=== PATIENT | female | born 1935 | race Caucasian/White ===

== ENCOUNTER 2020-02-07 14:56 | Emergency (ER) | payer MEDICARE, SELFPAY ==
--- NOTE | ~2020-02-07 | CT_ITS ---
EXAMINATION: CT abdomen pelvis w con INDICATION: Left lower quadrant pain and nausea TECHNIQUE: Computed tomographic images of the abdomen and pelvis were obtained after the administrati on of 100 cc of Omnipaque 350 intravenous contrast. The dose-length product (DLP) was 337.14 mGy-cm. Automated exposure control and iterative reconstruction technique were employed. COMPARISON: 04/10/2011 FINDINGS: Minimal dependent atelectasis is present in the lung bases. The heart size is normal. There is chronic pneumobilia of the liver, likely related to prior sphincterotomy. The gallbladder is surg ically absent. There is a small sliding hiatal hernia. The pancreas, spleen, and right adrenal gland are normal. A stable 9 mm mass of the left adrenal gland is consistent with an adenoma. Cysts of the kidneys measure up to 8.5 cm on the left. There is calcified atherosclerosis of the aorta and many of the other arteries. No pathologically enlarged abdominal or pelvic lymph nodes are identified. There is no free intraperitoneal gas or evidence of bowel obstruction. There are changes of right total hi p arthroplasty. Calcified uterine fibroids are noted. A pessary is noted in the vagina. There is rom re thoracic and lumbar spondylosis. There are small fat-containing umbilical and epigastric hernias. IMPRESSION: 1. No CT correlate for the patient's symptoms. Reviewed, dictated and finalized at location A. INUOUS IMPROVEMENT LEAD
[2020-02-07 15:07] VITALS: BP 150/65; PULSE 86; RESP 18; TEMP 35.9; O2SAT 94
--- NOTE | 2020-02-07 15:12 | ED.ABDPAIN ---
HPI - Abdominal Pain General Chief Complaint: Abdominal Pain Stated Complaint: llq abd pain/nausea Time Seen by Provider: 02/07/20 15:12 History of Present Illness HPI narrative: LLQ pain for the past few days. Worsening in severity. Associated with nausea and bloating. Mild constipation, Last BM this morning. No fever, vomiting, CP, SOB. Related Data Home Medications Medication Instructions Recorded Confirmed amlodipine 10 mg tablet 10 mg PO DAILY 11/01/19 01/29/20 cholecalciferol (vitamin D3) 50 50 mcg PO DAILY 11/01/19 01/29/20 mcg (2,000 unit) capsule clorazepate dipotassium 3.75 mg 3.75 mg PO TID PRN 11/01/19 01/29/20 tablet diclofenac sodium 1 % topical gel 2 gm TOPICAL QID 11/01/19 01/29/20 estradiol 1 gm VAGINAL 2XW 11/01/19 01/29/20 fluticasone propionate 50 1 spray NASAL DAILY 11/01/19 01/29/20 mcg/actuation nasal spray,suspension gelscq-wcgmtcvn-ocwmlrg 1 cap PO BID 11/01/19 01/29/20 25,000-79,000-105,000 unit capsule,delayed rel loratadine 10 mg tablet 10 mg PO DAILY 11/01/19 01/29/20 multivitamin,rs-flge-dtvwatxd 1 tablet PO DAILY 11/01/19 01/29/20 propylene glycol 0.6 % eye drops 1 drop EACH EYE DAILY PRN 11/01/19 01/29/20 ropinirole 2 mg tablet 2 mg PO BID 11/01/19 01/29/20 Allergies Allergy/AdvReac Type Severity Reaction Status Date / Time amoxicillin Allergy Mild unknown Verified 01/29/20 14:12 codeine Allergy Unknown unknown Verified 01/29/20 14:12 pantoprazole Allergy Unknown unknown Verified 01/29/20 14:12 ESOMEPRAZOLE MAG Allergy Unknown unknown Uncoded 01/29/20 14:12 PANTOPRAZOLE SODIUM Allergy Unknown unknown Uncoded 01/29/20 14:12 RABEPRAZOLE SODIUM Allergy Unknown UNKNOWN Uncoded 03/28/19 09:27 Review of Systems Review of Systems: All systems reviewed & are unremarkable except as noted in HPI and below Constitutional: Constitutional: Denies fever(s) and Denies weakness Cardiovascular: Cardiovascular: Denies chest pain Respiratory: Respiratory: Denies dyspnea Gastrointestinal: Gastrointestinal: Reports abdominal pain, Reports bloating, Reports constipation, Denies diarrhea, Reports nausea and Denies vomiting Genitourinary: Genitourinary: Denies hematuria, Reports nocturia and Denies dysuria Musculoskeletal: Musculoskeletal: Denies back pain Neurologic: Denies dizziness and Denies weakness [facility] Past Medical History Medical History (Updated 02/07/20 @ 17:47 by Sandeep Gaytan MD) Acid reflux Anemia Arthritis Bruises easily Hypertension Urinary incontinence Surgical History Surgical History History of cholecystectomy History of colonoscopy History of ERCP History of esophagogastroduodenoscopy (EGD) History of hemorrhoidectomy History of hip replacement History of repair of hiatal hernia Hx of cataract surgery Family History Family History Sibling Family history of diabetes mellitus in first degree relative Family history of lymphoma Family history of malignant neoplasm of kidney Mother , 1 month after childbirth in 1936 No problems noted. Father Malignant brain tumor Sibling Seizures COPD (chronic obstructive pulmonary disease) Lymphoma Sibling Diabetes mellitus Hypertension Heart disease Bone cancer Brain tumor Social History Social History Smoking status: Never smoker Alcohol intake: never Exam Const: General: healthy appearing, no acute distress and alert Orientation/consciousness: patient oriented x3 HENMT: Head: normal to inspection Neck: Neck: normal visual inspection and no lymphadenopathy Chest: Chest palpation & inspection: no tenderness Resp: Effort & Inspection: normal respiratory effort Auscultation: clear to auscultation bilaterally, no rales, no rhonchi and no wheezes Cardio: Ju
[2020-02-07 15:34] LABS: Basophils Absolute Auto 0.1 K/mm3 (0.0-0.1); Eosinophils Absolute Auto 0.2 K/mm3 (0-0.3); Eosinophils Percent Auto 2.9 % (0-4.4); Hematocrit 38.5 % (37.0-47.0); Hemoglobin 13.1 g/dL (12.0-15.0); Immature Granulocyte Absolute 0.02 K/mm3 (0.00-0.031); Immature Granulocyte Percent A 0.3 % (0-0.5); Lymphocytes Absolute Auto 1.85 K/mm3 (0.9-3.2); Lymphocytes Percent Auto 26.7 % (18.3-44.2); Mean Corpuscular Hemoglobin 32.7 pg (26-34); Monocytes Absolute Auto 0.8 K/mm3 (0.1-0.6); Monocytes Percent Auto 11.4 % (2.6-8.5); Neutrophils Percent Auto 57.7 % (45.5-73.1); Platelet Count Result 227 k/mm3 (150-375); Red Blood Count 4.01 M/mm3 (4.2-5.4); Red Cell Distribution Width 13.2 % (11.5-14.5); White Blood Count 6.9 K/mm3 (4.5-10.0)
[2020-02-07 15:45] LABS: Alanine Aminotransferase 26 U/L (4-35); Albumin Level 4.5 g/dL (3.5-5.1); Alkaline Phosphatase 120 U/L (38-126); Anion Gap 7 mmol/L (8-16); Aspartate Amino Transferase 41 U/L (14-36); Bilirubin,Total 0.4 mg/dL (0.2-1.3); Blood Urea Nitrogen 15 mg/dL (7-17); Calcium 10.3 mg/dL (8.4-10.2); Carbon Dioxide 28 mmol/L (22-30); Chloride 104 mmol/L (98-107); Estimated Glomerular Filt Rate > 60; Glucose 102 mg/dL (65-105); Lipase 330 U/L (23-300); Potassium 4.2 mmol/L (3.4-5.0); Sodium 139 mmol/L (137-145)
[2020-02-07 17:14] VITALS: BP 137/43; PULSE 73; RESP 18; O2SAT 98
[2020-02-07 17:37] LABS: Add Urine Microscopic? YES; Appearance Urine Clear (Clear); Bacteria Urine Trace /hpf; Bilirubin Urine Negative (Negative); Blood Urine Negative (Negative); Color Urine Yellow (Yellow); Glucose Urine UA Negative (Negative); Ketones Urine Negative (Negative); Leukocyte Esterase Ur Negative LEU/UL (Negative); Mucus Urine Rare /lpf; Nitrate Urine Negative (Negative); Protein Urine Negative (Negative); RBC Urine 0-2 /hpf (0-2); Specific Grav Ur 1.011 (1.001-1.035); Squamous Epithelial Cell Urine Occasional /hpf (Few); Urobilinogen Urine Negative mg/dL (<2.0); WBC Urine 0-3 /hpf
== END 2020-02-07 18:04 | disposition home or self-care (01) ==
PROVIDERS: Emergency Medicine; Emergency Provider Emergency Medicine; PCP Physician Assistant
DX: R10.32 Left lower quadrant pain (principal); M19.90 Unspecified osteoarthritis, unspecified site; I10 Essential (primary) hypertension; D64.9 Anemia, unspecified
CPT/HCPCS: 36415; 74177; 80053; 81001; 83690; 85025; 99284; Q9967

== ENCOUNTER 2020-04-09 11:09 | Outpatient (CLI) | payer MEDICARE, SELFPAY ==
--- NOTE | ~2020-04-09 | XR_ITS ---
XR hip BI wo pelvis 04/09/2020 12:01 Indication: Joint pain Procedure: 2 views of each hip Comparison: 01/29/2010 Findings: There is a right total hip arthroplasty. Prosthesis well seated. No periprosthetic fracture or loosening evident. Moderate osteoarthritis of the left hip. There are coarse calcifications in th e pelvis, likely uterine fibroids. No acute fracture or traumatic malalignment. Impression: 1: Moderate osteoarthritis of the left hip. Reviewed, dictated and finalized at location B. OW AND DOOR INSTALLER Impression: 1: Moderate osteoarthritis of the left hip.
--- NOTE | ~2020-04-09 | XR_ITS ---
EXAMINATION: XR knee RT 2V DATE: 04/09/2020 12:01 INDICATION: Multiple joint pain. TECHNIQUE: 2 views of right knee were obtained. COMPARISON: None. FINDINGS: Bone alignment is normal. No fracture. There is moderate osteoarthritis of medial compartme nt and mild osteoarthritis of lateral and patellofemoral compartments. No knee joint effusion. IMPRESSION: 1. Moderate right knee osteoarthritis. Reviewed, dictated and finalized at location A. RVISOR FIBERGLASS BOAT ASSEMBLY
--- NOTE | ~2020-04-09 | XR_ITS ---
EXAMINATION: XR ankle LT 2V DATE: 04/09/2020 12:01 INDICATION: Multiple joint pain. TECHNIQUE: 2 views of left ankle were obtained. COMPARISON: None. FINDINGS: Bone alignment is normal. No fracture. Joint spaces are normal. There is an enthesophyte at plantar aspect of calcaneal tuberosity. IMPRESSION: 1. No arthritis. Reviewed, dictated and finalized at location A. ER TOOL AND DIE IMPRESSION: 1. No arthritis.
--- NOTE | ~2020-04-09 | XR_ITS ---
EXAMINATION: XR knee LT 2V DATE: 04/09/2020 12:01 INDICATION: Multiple joint pain. TECHNIQUE: 2 views of left knee were obtained. COMPARISON: None. FINDINGS: Bone alignment is normal. No fracture. There is moderate osteoarthritis of medial compartme nt and mild osteoarthritis of lateral and patellofemoral compartments. No knee joint effusion. IMPRESSION: 1. Moderate left knee osteoarthritis. Reviewed, dictated and finalized at location A. ORY CARD CLERK
--- NOTE | ~2020-04-09 | XR_ITS ---
EXAMINATION: XR hand LT 2V DATE: 04/09/2020 12:01 INDICATION: Multiple joint pain. TECHNIQUE: 2 views of left hand were obtained. COMPARISON: None. FINDINGS: Bone alignment is normal. No fracture. There is mild osteoarthritis of first carpometacarpa l joint, fifth proximal interphalangeal joint, and third proximal and distal interphalangeal joints. IMPRESSION: 1. Mild polyarticular osteoarthritis. Reviewed, dictated and finalized at location A. ERCIAL LOAN ADMINISTRATOR
--- NOTE | ~2020-04-09 | XR_ITS ---
EXAMINATION: XR elbow RT 2V DATE: 04/09/2020 12:01 INDICATION: Multiple joint pain. TECHNIQUE: 2 views of right elbow were obtained. COMPARISON: None. FINDINGS: Bone alignment is normal. No fracture. Joint spaces are well maintained. IMPRESSION: 1. Normal right elbow. Reviewed, dictated and finalized at location A. LLIGENCE AGENT IMPRESSION: 1. Normal right elbow.
--- NOTE | ~2020-04-09 | XR_ITS ---
EXAMINATION: XR wrist LT 2V DATE: 04/09/2020 12:01 INDICATION: Multiple joint pain. TECHNIQUE: 2 views of left wrist were obtained. COMPARISON: None. FINDINGS: Bone alignment is normal. No fracture. There is mild osteoarthritis of first carpometacarpa l joint. IMPRESSION: 1. Mild osteoarthritis of first carpometacarpal joint. Reviewed, dictated and finalized at location A. ODYNAMICS PROFESSOR
--- NOTE | ~2020-04-09 | XR_ITS ---
EXAMINATION: XR elbow LT 2V DATE: 04/09/2020 12:01 INDICATION: Multiple joint pain. TECHNIQUE: 2 views of left elbow were obtained. COMPARISON: Left elbow radiographs 05/22/2013 FINDINGS: Bone alignment is normal. No fracture. Joint spaces are well maintained. There is no elbow joint effusion. IMPRESSION: 1. Normal left elbow. Reviewed, dictated and finalized at location A. TER SLOTTER HELPER IMPRESSION: 1. Normal left elbow.
--- NOTE | ~2020-04-09 | XR_ITS ---
EXAMINATION: XR ankle RT 2V DATE: 04/09/2020 12:01 INDICATION: Multiple joint pain. TECHNIQUE: 2 views of right ankle were obtained. COMPARISON: None. FINDINGS: Bone alignment is normal. No acute fracture. There is mild ankle joint osteoarthritis. Ther e is an enthesophyte at plantar aspect of calcaneal tuberosity. IMPRESSION: 1. Mild ankle joint osteoarthritis. Reviewed, dictated and finalized at location A. TERY WARDEN
--- NOTE | ~2020-04-09 | XR_ITS ---
EXAMINATION: XR wrist RT 2V DATE: 04/09/2020 12:01 INDICATION: Multiple joint pain. TECHNIQUE: 2 views of right wrist were obtained. COMPARISON: None. FINDINGS: Bone alignment is normal. No fracture. There is mild osteoarthritis of first carpometacarpa l joint. IMPRESSION: 1. Mild osteoarthritis of first carpometacarpal joint. Reviewed, dictated and finalized at location A. L OPPORTUNITY OFFICER
--- NOTE | ~2020-04-09 | XR_ITS ---
EXAMINATION: XR hand RT 2V DATE: 04/09/2020 12:01 INDICATION: Multiple joint pain. TECHNIQUE: 2 views of right hand were obtained. COMPARISON: None. FINDINGS: There is radial subluxation of second distal phalanx with respect to the middle phalanx. Th ere is ulnar subluxation of third distal phalanx with respect to the middle phalanx. No fracture. The re is mild osteoarthritis of first carpometacarpal joint and fourth and fifth distal interphalangeal joints and severe osteoarthritis of second and third distal interphalangeal joints. IMPRESSION: 1. Polyarticular osteoarthritis. Reviewed, dictated and finalized at location A. OMER BUSINESS MANAGER
== END 2020-04-09 11:10 | disposition home or self-care (01) ==
LOC: ANHIMG 11:12
PROVIDERS: PCP Physician Assistant; Visit Provider Internal Medicine Rheumatology
DX: M17.0 Bilateral primary osteoarthritis of knee (principal); M19.042 Primary osteoarthritis, left hand; M19.041 Primary osteoarthritis, right hand; M18.0 Bilateral primary osteoarthritis of first carpometacarpal joints; S63.202A Unspecified subluxation of right middle finger, initial encounter; M16.12 Unilateral primary osteoarthritis, left hip; M19.071 Primary osteoarthritis, right ankle and foot
CPT/HCPCS: 73070; 73100; 73120; 73521; 73560; 73600

== ENCOUNTER → 2020-06-11 12:59 | Outpatient (CLI) | payer MEDICARE, SELFPAY ==
--- NOTE | ~2020-06-11 | MR_ITS ---
EXAMINATION: MR cervical spine wo con DATE: 06/11/2020 14:58 INDICATION: Neck pain. TECHNIQUE: Magnetic resonance imaging (MRI) of the cervical spine was performed without intravenous c ontrast. Sequences included sagittal T2-weighted FSE, sagittal STIR FSE, sagittal T1-weighted FSE, ax ial MERGE, and axial T2-weighted FSE. COMPARISON: None FINDINGS: There is 4 mm anterolisthesis of C4 on C5 and 3 mm retrolisthesis of C5 on C6. Vertebral rashaad dy heights are normal. There is mildly decreased disc height at C4-C5, severely decreased disc height at C5-C6, and mildly decreased disc height at C6-C7. The spinal cord signal intensity is normal. The following disc levels are specifically discussed: C2-C3: The disc does not extend beyond the endplate margin. There is no uncovertebral joint osteoarth ritis. There is mild right and severe left facet joint osteoarthritis. There is mild left neural fora delicia stenosis. There is no central canal stenosis. C3-C4: There is a central extrusion. There is mild left uncovertebral joint osteoarthritis. There is moderate right and severe left facet joint osteoarthritis. There is mild left neural foraminal stenos is. There is no central canal stenosis. C4-C5: The disc is bulging. There is moderate bilateral uncovertebral joint osteoarthritis. There is severe left facet joint osteoarthritis. There is ankylosis of right facet joint with severe hypertrop hy. There is moderate right and mild left neural foraminal stenosis. There is mild central canal sten osis. C5-C6: The disc is bulging. There is severe bilateral uncovertebral joint osteoarthritis. There is se arianna right and moderate left facet joint osteoarthritis. There is severe right and moderate left neur al foraminal stenosis. There is mild central canal stenosis. C6-C7: The disc is bulging. There is moderate right and severe left uncovertebral joint osteoarthriti s. There is severe bilateral facet joint osteoarthritis. There is mild bilateral neural foraminal jerzy nosis. There is mild central canal stenosis. C7-T1: The disc does not extend beyond the endplate margin. There is no uncovertebral joint osteoarth ritis. There is moderate right and severe left facet joint osteoarthritis. There is mild bilateral ne ural foraminal stenosis. There is no central canal stenosis. IMPRESSION: 1. Severe cervical spondylosis. Reviewed, dictated and finalized at location A.
--- NOTE | ~2020-06-11 | MR_ITS ---
EXAMINATION: MR lumbar spine wo con DATE: 06/11/2020 14:58 INDICATION: Low back pain. TECHNIQUE: Magnetic resonance imaging (MRI) of the lumbar spine was performed without intravenous con trast. Sequences included sagittal T2-weighted FSE, sagittal T2-weighted FS FSE, sagittal T1-weighted FSE, and axial T2-weighted FSE. COMPARISON: Lumbar spine MRI 10/29/2008 FINDINGS: There is 18 degrees levoscoliosis of thoracolumbar spine. There is 3 mm anterolisthesis of L3 on L4. Body heights are normal. There is severely decreased disc height from T12-L1 through L2-L3, moderately decreased disc height at L3-L4, and severely decreased disc height at L4-L5 and L5-S1 wit h endplate remodeling. There is ligamentum flavum hypertrophy at the disc levels from T12-L1 through L4-L5. The distal spinal cord signal intensity is normal. The conus medullaris is at L1. There is a 1 0.4 cm cyst in left kidney. The following disc levels are specifically discussed: T12-L1: The disc is bulging and has an annular fissure. There is moderate bilateral facet joint osteo arthritis. There is mild bilateral neural foraminal stenosis. There is mild central canal stenosis. L1-L2: The disc is bulging. There is moderate bilateral facet joint osteoarthritis. There is moderate right and mild left neural foraminal stenosis. There is mild central canal stenosis. L2-L3: The disc is bulging. There is moderate bilateral facet joint osteoarthritis. There is moderate bilateral neural foraminal stenosis. There is mild central canal stenosis. L3-L4: The disc is bulging and has an annular fissure. There is severe bilateral facet joint osteoart hritis. There is mild right and moderate left neural foraminal stenosis. There is mild central canal stenosis. L4-L5: The disc is bulging and has an annular fissure. There is severe bilateral facet joint osteoart hritis. There is moderate bilateral neural foraminal stenosis. There is moderate central canal stenos is. L5-S1: The disc is bulging and has an annular fissure. There is moderate bilateral facet joint osteoa rthritis. There is mild bilateral neural foraminal stenosis. There is mild central canal stenosis. IMPRESSION: 1. Severe lumbar spondylosis, worsened from 10/29/2008. 2. Thoracolumbar levoscoliosis. Reviewed, dictated and finalized at location A.
--- NOTE | ~2020-06-11 | MR_ITS ---
EXAMINATION: MR knee LT wo con DATE: 06/11/2020 14:59 INDICATION: Left knee pain. TECHNIQUE: Magnetic resonance imaging (MRI) of the left knee was performed without intravenous contra st. Sequences included axial PD-weighted FS FSE, coronal PD-weighted FSE and PD-weighted FS FSE, sagi ttal PD-weighted FSE, and sagittal T2-weighted FS FSE. COMPARISON: Left knee radiographs 04/09/2020 FINDINGS: Medial compartment: There is a complex tear of the body and posterior horn of medial meniscus. There is full-thickness ca rtilage loss of tibial condyle involving the anterior, central, and medial articular surface with cor tical remodeling and moderate subchondral edema-like signal intensity. There is full-thickness cartil age loss of femoral condyle involving the central, posterior, anterior, and medial articular surface with moderate subchondral edema-like marrow signal intensity. Osteophytes are noted. Lateral compartment: Lateral meniscus is normal. There is shallow partial-thickness cartilage loss of tibial condyle. Ther e is shallow partial-thickness cartilage loss of femoral condyle involving the posterior and medial a rticular surface. Osteophytes are noted. Patellofemoral compartment: The tibial cartilage is normal. There is deep partial thickness cartilage loss of central trochlea wi th mild subchondral edema-like marrow signal intensity. Ligaments and tendons: The anterior and posterior cruciate ligaments are normal. Medial collateral ligament is normal. There are changes of prior sprain of fibular collateral ligament characterized by increased signal intensi ty proximally. There is mild patellar tendinopathy. Fluid: There is a small knee joint effusion. There is trace fluid in a Phan's cyst. Osseous/other: There is mild prepatellar and superficial infrapatellar bursitis. IMPRESSION: 1. Severe chondrosis of medial compartment, moderate chondrosis of patellofemoral compartment, and mi ld chondrosis of lateral compartment. 2. Complex tear of medial meniscus. 3. Small knee joint effusion. Reviewed, dictated and finalized at location A. IMPRESSION: 1. Severe chondrosis of medial compartment, moderate chondrosis of patellofemor al compartment, and mild chondrosis of lateral compartment. 2. Complex tear of medial meniscus. 3. Small knee joint effusion.
== END ==
PROVIDERS: PCP Physician Assistant; Visit Provider Internal Medicine Rheumatology
DX: M47.815 Spondylosis without myelopathy or radiculopathy, thoracolumbar region (principal); M48.05 Spinal stenosis, thoracolumbar region; M47.817 Spondylosis without myelopathy or radiculopathy, lumbosacral region; M48.07 Spinal stenosis, lumbosacral region; M25.462 Effusion, left knee; S83.232A Complex tear of medial meniscus, current injury, left knee, initial encounter; M70.42 Prepatellar bursitis, left knee
CPT/HCPCS: 72141; 72148; 73721

== ENCOUNTER 2021-05-04 13:26 | Emergency (ER) | payer MEDICARE, SELFPAY ==
[2021-05-04 13:37] VITALS: BP 133/60; PULSE 74; RESP 18; TEMP 35.9; O2SAT 99
--- NOTE | 2021-05-04 14:09 | ED.GENADULT ---
HPI - General Adult General Chief complaint: Medical Clearance Stated complaint: High Blood Pressure Time Seen by Provider: 05/04/21 14:10 Source: patient, RN notes reviewed and old records reviewed Mode of arrival: ambulatory Limitations: no limitations History of Present Illness HPI narrative: 85-year-old female presents to the [facility] with complaints of elevated blood pressure. Patient states for the last few weeks she has just not felt well. Feels like nobody is listening to her. Thought her blood pressure was elevated this morning. Currently 133/60. Denies any chest pain or shortness of breath. No nausea vomiting or diarrhea. Denies being febrile or having chills. Denies any urinary symptoms. Related Data Home Medications Medication Instructions Recorded Confirmed cholecalciferol (vitamin D3) 50 50 mcg PO DAILY 11/01/19 05/04/21 mcg (2,000 unit) capsule fluticasone propionate 50 1 spray NASAL DAILY 11/01/19 05/04/21 mcg/actuation nasal spray,suspension [id number] 1 cap PO BID 11/01/19 05/04/21 25,000-79,000-105,000 unit capsule,delayed rel amlodipine 10 mg PO DAILY 05/04/21 05/04/21 montelukast 10 mg PO DAILY 05/04/21 05/04/21 Allergies Allergy/AdvReac Type Severity Reaction Status Date / Time amoxicillin Allergy Mild unknown Verified 05/04/21 13:55 codeine Allergy Unknown unknown Verified 05/04/21 13:55 pantoprazole Allergy Unknown unknown Verified 05/04/21 13:55 ESOMEPRAZOLE MAG Allergy Unknown unknown Uncoded 05/04/21 13:55 PANTOPRAZOLE SODIUM Allergy Unknown unknown Uncoded 05/04/21 13:55 RABEPRAZOLE SODIUM Allergy Unknown UNKNOWN Uncoded 05/04/21 13:55 Review of Systems Review of Systems: All systems reviewed & are unremarkable except as noted in HPI and below Constitutional: Constitutional: Reports no additional constitutional complaints, Denies chills and Denies fever(s) Eyes: Eyes: Reports no additional eye complaints, Denies change in vision and Denies photophobia ENT: Reports as per HPI, Reports dizziness (Intermittent for a few months) and Denies sore throat Cardiovascular: Cardiovascular: Reports no additional cardiovascular complaints, Denies chest pain and Denies rapid heart rate Respiratory: Respiratory: Reports no additional respiratory complaints, Denies cough and Denies dyspnea Gastrointestinal: Gastrointestinal: Reports no additional gastrointestinal complaints, Denies abdominal pain, Denies diarrhea, Denies nausea and Denies vomiting Musculoskeletal: Musculoskeletal: Reports no additional musculoskeletal complaints and Denies back pain Integumentary/Breasts: Skin/Breast: Reports system reviewed and no additional complaints, except as docu Neurologic: Reports system reviewed and no additional complaints, except as documented Psychiatric: Psychiatric: Reports no additional psychiatric complaints Allergic/Immunologic: Allergic/Immunologic: Reports no additional allergic/immunologic complaints PMFSH Past Medical History Medical History Acid reflux Anemia Arthritis Bruises easily Hypertension Urinary incontinence Surgical History Surgical History History of cholecystectomy History of colonoscopy History of ERCP History of esophagogastroduodenoscopy (EGD) History of hemorrhoidectomy History of hip replacement History of repair of hiatal hernia Hx of cataract surgery Family History Family History Sibling Family history of diabetes mellitus in first degree relative Family history of lymphoma Family history of malignant neoplasm of kidney Mother , 1 month after childbirth in 1936 No problems noted. Father Malignant brain tumor Sibling Seizures COPD (chronic obstructive pulmonary disease) Lymphoma Sibling Diabetes mellitus
== END 2021-05-04 14:32 | disposition home or self-care (01) ==
PROVIDERS: Emergency Provider Nurse Practitioner; PCP Physician Assistant
DX: Z71.1 Person with feared health complaint in whom no diagnosis is made (principal); I10 Essential (primary) hypertension; K21.9 Gastro-esophageal reflux disease without esophagitis; M19.90 Unspecified osteoarthritis, unspecified site; Z96.649 Presence of unspecified artificial hip joint
CPT/HCPCS: 99211; G0463

== ENCOUNTER 2021-06-04 15:36 | Outpatient (CLI) | payer MEDICARE, SELFPAY ==
--- NOTE | ~2021-06-04 | US_ITS ---
EXAMINATION: US carotid duplex BI DATE: 06/04/2021 16:29 INDICATION: Unsteady gait. TECHNIQUE: Grayscale, color Doppler, and pulsed Doppler images of the cervical carotid arteries were obtained. The degree of vessel stenosis is placed in one of the following categories: normal, <50%, 5 0-69%, >=70% but less than near-occlusion, near-occlusion, or total occlusion. Note that percent sten osis relative to normal distal artery lumen diameter is indirectly measured from velocity measurement s as described by Sandeep, et al. Radiology 2003; 229:340-346. COMPARISON: None. FINDINGS: RIGHT: The right common carotid artery (CCA) peak systolic velocity (PSV) is 66 cm/s. The right internal car otid artery (ICA) PSV is 61 cm/s. The right ICA end-diastolic velocity (EDV) is 7 cm/s. The right ICA /CCA PSV ratio is 0.9. Grayscale and color Doppler images yield an estimate of <50% diameter reductio n from plaque in the ICA. The external carotid artery (ECA) PSV is 70 cm/s. There is antegrade flow i n the right vertebral artery. LEFT: The left CCA PSV is 61 cm/s. The left ICA PSV is 58 cm/s. The left ICA EDV is 13 cm/s. The left ICA/C CA PSV ratio is 0.9. Grayscale and color Doppler images yield an estimate of <50% diameter reduction from plaque in the ICA. The ECA PSV is 190 cm/s. There is antegrade flow in the left vertebral artery . IMPRESSION: 1. <50% stenosis in the right internal carotid artery. 2. <50% stenosis in the left internal carotid artery. Reviewed, dictated and finalized at location B.
== END 2021-06-04 15:37 | disposition home or self-care (01) ==
PROVIDERS: PCP Physician Assistant; Visit Provider Physician Assistant
DX: R26.89 Other abnormalities of gait and mobility (principal); R42 Dizziness and giddiness; I65.23 Occlusion and stenosis of bilateral carotid arteries
CPT/HCPCS: 93880

== ENCOUNTER 2021-06-05 12:49 | Outpatient (CLI) | payer MEDICARE, SELFPAY ==
--- NOTE | ~2021-06-05 | US_ITS ---
EXAMINATION: US pelvic limited DATE: 06/05/2021 15:20 INDICATION: Cystocele. Urinary urgency. TECHNIQUE: Multiple grayscale and Doppler ultrasound images of the pelvis were obtained. COMPARISON: CT abdomen and pelvis 02/07/2020 FINDINGS: The bladder is normal in morphology. The prevoid bladder volume is 329 mL. The postvoid vo lume is 44 mL. IMPRESSION: 1. Normal postvoid bladder urine volume. Reviewed, dictated and finalized at location A.
== END 2021-06-05 12:50 | disposition home or self-care (01) ==
PROVIDERS: PCP Physician Assistant; Visit Provider Nurse Practitioner Family
DX: N81.11 Cystocele, midline (principal)
CPT/HCPCS: 76857

== ENCOUNTER 2021-06-09 13:17 | Emergency (ER) | payer MEDICARE, SELFPAY ==
[2021-06-09 13:28] VITALS: BP 153/92; PULSE 97; RESP 18; TEMP 37.9; O2SAT 99
--- NOTE | 2021-06-09 13:32 | ED.EAR ---
HPI - Ear Problem General Chief complaint: Ear Stated complaint: Headache,Ear Ache Time Seen by Provider: 06/09/21 13:32 Source: patient Mode of arrival: ambulatory Limitations: no limitations History of Present Illness HPI Narrative: 85-year-old female presents with complaint of dry cough, runny nose and nasal congestion for 3 days. Yesterday started having pain to right ear With low-grade fever. Taking Robitussin for cough and a daily allergy pill. Denies chest pain or shortness of breath. Denies nausea vomiting diarrhea. All systems reviewed and negative except as noted above. Related Data Home Medications Medication Instructions Recorded Confirmed fluticasone propionate 50 1 spray NASAL DAILY 11/01/19 05/27/21 mcg/actuation nasal spray,suspension [id number] 1 cap PO BID 11/01/19 05/27/21 25,000-79,000-105,000 unit capsule,delayed rel amlodipine 10 mg PO DAILY 05/04/21 05/27/21 montelukast 10 mg PO DAILY 05/04/21 05/27/21 aluminum hydrox-magnesium carb 95 15 ml PO .PRN ml 05/06/21 05/27/21 mg-358 mg/15 mL oral suspension ascorbate calcium (vitamin C) 814 mg PO 05/06/21 05/27/21 mg/gram oral powder famotidine 20 mg tablet 20 mg PO DAILY 05/06/21 05/27/21 vitamin E (dl, acetate) 180 mg 180 mg PO DAILY 05/06/21 05/27/21 (400 unit) capsule Super C PO 05/13/21 05/27/21 vit C,E,zinc,copper-qwpcl9w 250 1 cap PO DAILY 05/13/21 05/27/21 mg-lutein 5 mg-zeaxanthin 1 mg capsule Allergies Allergy/AdvReac Type Severity Reaction Status Date / Time amoxicillin Allergy Mild unknown Verified 05/27/21 10:09 codeine Allergy Unknown unknown Verified 05/27/21 10:09 pantoprazole Allergy Unknown unknown Verified 05/27/21 10:09 ESOMEPRAZOLE MAG Allergy Unknown unknown Uncoded 05/27/21 10:09 PANTOPRAZOLE SODIUM Allergy Unknown unknown Uncoded 05/27/21 10:09 RABEPRAZOLE SODIUM Allergy Unknown UNKNOWN Uncoded 05/27/21 10:09 Review of Systems Review of Systems: CONSTITUTIONAL: Denies fever, chills, or sweats. EYES: Denies visual changes, redness, or discharge. ENT: Reports rhinorrhea, congestion. Denies sore throat. Reports otalgia. CARDIOVASCULAR: Denies chest pain, palpitations, or edema. RESPIRATORY: Reports cough. Denies dyspnea. GASTROINTESTINAL: Denies abdominal pain, nausea, vomiting, or diarrhea. GENITOURINARY: Denies dysuria or hematuria. SKIN: Denies rash or itching. MUSCULOSKELETAL: Denies back pain, joint pain, or myalgia. NEUROLOGIC: Denies headache, numbness, or weakness. PSYCHIATRIC: Denies anxiety or depression. All other systems reviewed are negative, except as documented in HPI. [facility] Past Medical History Medical History (Updated 06/09/21 @ 13:47 by Lisa Lora NP) Acid reflux Anemia Arthritis Bruises easily Hypertension Urinary incontinence Surgical History Surgical History History of cholecystectomy History of colonoscopy History of ERCP History of esophagogastroduodenoscopy (EGD) History of hemorrhoidectomy History of hip replacement History of repair of hiatal hernia Hx of cataract surgery Family History Family History Sibling Family history of diabetes mellitus in first degree relative Family history of lymphoma Family history of malignant neoplasm of kidney Mother , 1 month after childbirth in 1936 No problems noted. Father Malignant brain tumor Sibling Seizures COPD (chronic obstructive pulmonary disease) Lymphoma Sibling Diabetes mellitus Hypertension Heart disease Bone cancer Brain tumor Social History Social History (Updated 05/16/21 @ 10:46 by Jackelin Holguin MA) Smoking status: Never smoker Alcohol intake: never Substance use: never Substance use type: does not use Gender identity (if verbalized by the patient): Female Comments At time of signature, a
== END 2021-06-09 13:49 | disposition home or self-care (01) ==
PROVIDERS: Emergency Provider Nurse Practitioner Family; PCP Physician Assistant
DX: J06.9 Acute upper respiratory infection, unspecified (principal); H65.01 Acute serous otitis media, right ear; K21.9 Gastro-esophageal reflux disease without esophagitis; M19.90 Unspecified osteoarthritis, unspecified site; I10 Essential (primary) hypertension; Z96.649 Presence of unspecified artificial hip joint
CPT/HCPCS: 99213; G0463

== ENCOUNTER → 2021-07-04 12:56 | Outpatient (CLI) | payer MEDICARE, SELFPAY ==
--- NOTE | ~2021-07-04 | US_ITS ---
EXAMINATION: US pelvic complete DATE: 07/04/2021 13:21 INDICATION: Cystocele. TECHNIQUE: Multiple transabdominal sonographic images of the pelvis were obtained. COMPARISON: None. FINDINGS: The uterus measures 5.9 x 2.9 x 4.1 cm. There is no free fluid in the pelvis. The endometrial complex measures 5 mm in thickness. The ovaries are not visualized. IMPRESSION: 1. Normal uterus. Ovaries are not visualized. Reviewed, dictated and finalized at location A.
== END ==
PROVIDERS: PCP Urology; Visit Provider Urology
DX: N81.11 Cystocele, midline (principal)
CPT/HCPCS: 76856

== ENCOUNTER 2021-07-16 12:25 | Outpatient (CLI) | payer MEDICARE, SELFPAY ==
--- NOTE | 2021-07-16 12:30 | ECG_ITS ---
Measurements Intervals [place] Rate: 80 P: 11 VT: 181 QRS: -24 QRSD: 90 T: 12 QT: 375 QTc: 433 Interpretive Statements SINUS RHYTHM DELAYED PRECORDIAL R/S TRANSITION LOW QRS VOLTAGE IN PRECORDIAL LEADS BORDERLINE T WAVE ABNORMALITY- ANT/INF LEADS BASELINE ARTIFACT- I, III, AVF, V3, V6 BORDERLINE ECG Electronically Signed On 07-16-2021 13:11:58 CDT by John Richards D.O.
[2021-07-16 13:03] LABS: Basophils Absolute Auto 0.1 K/mm3 (0.0-0.1); Basophils Percent Auto 0.8 % (0.2-1.2); Eosinophils Absolute Auto 0.1 K/mm3 (0-0.3); Eosinophils Percent Auto 0.8 % (0-4.4); Hematocrit 40.4 % (37.0-47.0); Hemoglobin 13.4 g/dL (12.0-15.0); Immature Granulocyte Absolute 0.02 K/mm3 (0.00-0.031); Immature Granulocyte Percent A 0.3 % (0-0.5); Lymphocytes Absolute Auto 1.51 K/mm3 (0.9-3.2); Lymphocytes Percent Auto 19.6 % (18.3-44.2); Mean Corpuscular HGB Conc 33.2 g/dl (32-36); Mean Corpuscular Hemoglobin 32.1 pg (26-34); Mean Corpuscular Volume 96.7 fl (80-100); Mean Platelet Volume 9.3 fl (7.4-10.4); Monocytes Absolute Auto 0.7 K/mm3 (0.1-0.6); Monocytes Percent Auto 9.6 % (2.6-8.5); Neutrophils Absolute Auto 5.3 K/mm3 (1.3-6.7); Neutrophils Percent Auto 68.9 % (45.5-73.1); Platelet Count Result 255 k/mm3 (150-375); Red Blood Count 4.18 M/mm3 (4.2-5.4); Red Cell Distribution Width 13.4 % (11.5-14.5); White Blood Count 7.7 K/mm3 (4.5-10.0)
[2021-07-16 13:17] LABS: Alanine Aminotransferase 16 U/L (6-35); Albumin Level 4.5 g/dL (3.5-5.1); Alkaline Phosphatase 154 U/L (38-126); Anion Gap 9 mmol/L (8-16); Aspartate Amino Transferase 35 U/L (14-36); Bilirubin,Total 0.4 mg/dL (0.2-1.3); Blood Urea Nitrogen 15 mg/dL (7-17); Calcium 9.5 mg/dL (8.4-10.2); Carbon Dioxide 28 mmol/L (22-30); Chloride 106 mmol/L (98-107); Estimated Glomerular Filt Rate > 60; Glucose 108 mg/dL (65-110); Potassium 4.1 mmol/L (3.4-5.0); Sodium 143 mmol/L (137-145)
[2021-07-16 13:18] LABS: INR 1.1; Partial Thromboplastin Time 26.4 SECONDS (22.3-36.8); Prothrombin Time 13.3 Seconds (11.1-14.7)
== END 2021-07-16 12:26 | disposition home or self-care (01) ==
LOC: ANHSURGERY 12:29
PROVIDERS: PCP Physician Assistant; Visit Provider Urology
DX: Z01.818 Encounter for other preprocedural examination (principal); N81.11 Cystocele, midline; I10 Essential (primary) hypertension
CPT/HCPCS: 36415; 80053; 85025; 85610; 85730; 86850; 86900; 86901; 87086; 93005

== ENCOUNTER 2021-08-04 00:39 | Day surgery (SDC) | payer MEDICARE, SELFPAY ==
--- NOTE | 2021-07-14 09:33 | PC.NURSE ---
Report to the Outpatient Waiting Room, entrance under the green pavilion located off [facility], at time _1200 on date __07/21/21 . OR Time: __2:00PM . - You and your visitor will be asked a series of questions to screen for COVID 19 for your protection. - Only one visitor is allowed at this time. - The patient visitor is requested to leave or wait in car when not with patient. - A mask is required within the hospital. Patients may have clear liquids (water, carbonated beverages, clear teas, apple juice) until 3 hours prior to surgery with a maximum of 20 ounces. - No food from midnight until time of surgery - Infants may have breast milk until 4 hours before surgery, formula 6 hours prior to surgery. - Children will be allowed to drink immediately following surgery. If applicable, please bring a bottle or sippy cup to assist with drinking. Juice, water, soda, and popsicles are readily available. For infants on formula, please bring formula the day of surgery. Pacifiers are allowed. Take the following medications with a SIP of water the morning of surgery: ____AMLODIPINE, Medications to discontinue per physician PT STATES_ALL VITAMINS AND SUPPLEMENTS 7 DAYS PRE OP__PER DR ARELLANO Date to take last dose___07/13/21 Please no make-up, nail indonesian, hairspray, perfume, deodorant, or body powder the day of surgery. No jewelry (including any body piercings) or valuables the day of surgery, leave them at home. Please take a shower or bath the night before, or the morning of, surgery with an antibacterial soap. Wear comfortable, loose fitting clothing. Children are encouraged to wear pajamas. - Jewelry must be removed prior to entering the operating room. Rings and piercings that are not removed may be cut off. - The hospital will not accept responsibility for valuables. - Please leave all valuables, including medications, at home the day of surgery. If you are going home after surgery, a licensed hazmat tanker driver must drive you home. - NO public transportation without another adult. - We recommend that an adult stay with you for 24 hours following discharge. - We also recommend that you do not drive, make important decision, drink alcoholic beverages, or take any drugs that were not prescribed by your health care provider for at least 24 hours after your discharge time. For Pediatric surgeries, we recommend two adults accompany the child home (only one inside the building at this time). Follow any additional instructions given to you from your surgeon. If you or anyone in your household have experienced Covid symptoms in the past week, please notify your surgeon or the nurse liaison at the phone number below for possible testing. Telephone instructions given to _PATIENT and asked if any additional questions and then verbalized understanding. Patient advised to call surgeon office or pre surgery nurse liaison [phone] if any additional questions.
[2021-07-14 09:44] VITALS: BMI 25.2
--- NOTE | 2021-07-24 08:29 | PC.NURSE ---
Report to the Outpatient Waiting Room, entrance under the green pavilion located off [facility], at time __1115 on date __08/04/21 . OR Time: _1315 . - You and your visitor will be asked a series of questions to screen for COVID 19 for your protection. - Only one visitor is allowed at this time. - The patient visitor is requested to leave or wait in car when not with patient. - A mask is required within the hospital. Patients may have clear liquids (water, carbonated beverages, clear teas, apple juice) until 3 hours prior to surgery with a maximum of 20 ounces. - No food from midnight until time of surgery - Infants may have breast milk until 4 hours before surgery, infant formula 6 hours prior to surgery. - Children will be allowed to drink immediately following surgery. If applicable, please bring a bottle or sippy cup to assist with drinking. Juice, water, soda, and popsicles are readily available. For infants on formula, please bring formula the day of surgery. Pacifiers are allowed. Take the following medications with a SIP of water the morning of surgery: AMLODIPINE Medications to discontinue per physician PT STATES ALL VITAMINS AND SUPPLEMENTS 7 DAYS PRE OP PER DR ARELLANO Date to take last dose___07/27/21 Please no make-up, nail emirati, hairspray, perfume, deodorant, or body powder the day of surgery. No jewelry (including any body piercings) or valuables the day of surgery, leave them at home. Please take a shower or bath the night before, or the morning of, surgery with an antibacterial soap. Wear comfortable, loose fitting clothing. Children are encouraged to wear pajamas. - Jewelry must be removed prior to entering the operating room. Rings and piercings that are not removed may be cut off. - The hospital will not accept responsibility for valuables. - Please leave all valuables, including medications, at home the day of surgery. If you are going home after surgery, a licensed trailer tank truck driver must drive you home. - NO public transportation without another adult. - We recommend that an adult stay with you for 24 hours following discharge. - We also recommend that you do not drive, make important decision, drink alcoholic beverages, or take any drugs that were not prescribed by your health care provider for at least 24 hours after your discharge time. For Pediatric surgeries, we recommend two adults accompany the child home (only one inside the building at this time). Follow any additional instructions given to you from your surgeon. If you or anyone in your household have experienced Covid symptoms in the past week, please notify your surgeon or the nurse liaison at the phone number below for possible testing. Telephone instructions given to PATIENT and asked if any additional questions and then verbalized understanding. Patient advised to call surgeon office or pre surgery nurse liaison [phone] if any additional questions.
--- NOTE | 2021-07-24 08:30 | PC.NURSE ---
PT STATES NO CHANGE IN HEALTH HX SINCE LAST INTERVIEW ON 07/14/21
--- NOTE | 2021-08-03 21:30 | PM.IMHP ---
H&P: HPI History of Present Illness Date/Time: 08/03/21 21:30 Chief Complaint: POP/TRUDY neg EM bx per [employer] Review of Systems Review of Systems: negative [facility] Past Medical History Medical History (Updated 08/03/21 @ 21:32 by Derian Adame MD) Acid reflux Anemia Arthritis Bruises easily Hypertension Urinary incontinence Surgical History Surgical History History of cholecystectomy History of colonoscopy History of ERCP History of esophagogastroduodenoscopy (EGD) History of hemorrhoidectomy History of hip replacement History of repair of hiatal hernia Hx of cataract surgery Family History Family History Sibling Family history of diabetes mellitus in first degree relative Family history of lymphoma Family history of malignant neoplasm of kidney Mother , 1 month after childbirth in 1936 No problems noted. Father Malignant brain tumor Sibling Seizures COPD (chronic obstructive pulmonary disease) Lymphoma Sibling Diabetes mellitus Hypertension Heart disease Bone cancer Brain tumor Social History Social History Smoking packs per day: 0.5 Smoking cigarettes per day: 10.0 Years smoked: 49 Smoking pack-years: 24.50 Smoking status: Former smoker Tobacco type: cigarettes Smoking end date: 03/01/00 Alcohol intake: never Substance use: never Substance use type: does not use Gender identity (if verbalized by the patient): Female Spiritual care concerns: No Meds Home Medications and Allergies Home Medications Medication Instructions Recorded Confirmed Type cmwdlt-kjpupbpw-pmbsvgm 2 cap PO TID 11/01/19 07/24/21 History 25,000-79,000-105,000 unit capsule,delayed rel (Zenpep) ropinirole 3 mg tablet 3 mg PO QHS #90 tabs 02/12/21 07/24/21 Rx amlodipine 10 mg tablet 10 mg PO DAILY 05/04/21 07/24/21 History montelukast 10 mg tablet 10 mg PO DAILY 05/04/21 07/24/21 History aluminum hydrox-magnesium carb 95 15 ml PO .PRN 05/06/21 07/24/21 History mg-358 mg/15 mL oral suspension (Gaviscon) famotidine 20 mg tablet 20 mg PO DAILY 05/06/21 07/24/21 History vitamin E (dl, acetate) 180 mg 180 mg PO DAILY 05/06/21 07/24/21 History (400 unit) capsule Super C 1 tab-cap PO DAILY 05/13/21 07/24/21 History vit C,E,zinc,copper-tpsoy2l 250 1 cap PO DAILY 05/13/21 07/24/21 History mg-lutein 5 mg-zeaxanthin 1 mg capsule (Ocuvite Adult 50 Plus) fluticasone propionate 50 1 spray intranasal BID #16 grams 06/09/21 07/24/21 Rx mcg/actuation nasal spray,suspension (Flonase Allergy Relief) estradiol 0.01% (0.1 mg/gram) 1 g vaginal 2XW 07/14/21 07/24/21 History vaginal cream Allergies Allergy/AdvReac Type Severity Reaction Status Date / Time amoxicillin Allergy Mild Nausea AND Verified 07/24/21 08:27 ITCHING codeine Allergy Unknown unknown Verified 07/24/21 08:27 ESOMEPRAZOLE MAG Allergy Unknown Itching Uncoded 07/24/21 08:27 PANTOPRAZOLE SODIUM Allergy Unknown Itching Uncoded 07/24/21 08:27 RABEPRAZOLE SODIUM Allergy Unknown UNKNOWN Uncoded 07/24/21 08:27 Exam Narrative: A+Ox3 NAD normal breathing anterior +3 apex +1 Assessment and Plan Assessment and plan (1) Uterine prolapse: Code(s): N81.4 - Uterovaginal prolapse, unspecified Status: Acute Assessment and Plan: colpocleisis (2) TRUDY (stress urinary incontinence, female): Code(s): N39.3 - Stress incontinence (female) (male) Status: Acute Assessment and Plan: urethral sling
[2021-08-04] VITALS (11 sets, daily range): BP systolic 136–170; BP diastolic 43–119; PULSE 63–79; RESP 10–20; TEMP 35.9–37.7; O2SAT 92–100
[2021-08-04] MEDS: LACTATED RINGERS 1,000 ML 30 ML IV CONT ×2 (11:50→14:54)
--- NOTE | 2021-08-04 12:50 | WPDHPUPDATE1 ---
History and Physical Update Update Date/Time: 08/04/21 12:50 History and Physical has been reviewed, including an updated exam of the patient. There are NO changes in the patient's condition. Risks, benefits, and alternatives have been discussed and questions answered. Patient agrees to proceed with procedure.
--- NOTE | 2021-08-04 13:22 | WPDANESEPPF ---
Anes - Initial Pre Proc Eval Procedure: Operation Date: 08/04/21 13:15 Proposed Procedures p Colpocleisis - Derian Adame MD Date/Time: 08/04/21 13:22 Surgeon: Derian Adame MD Pre Op Diagnosis: midline cystocele Patient Data Age: 85 Gender: F Height: 1.5 m Weight: 54.4 kg Last Vital Signs Temp 36.5 C 08/04/21 11:42 Pulse 76 08/04/21 11:42 Resp 18 08/04/21 11:42 BP 170/53 H 08/04/21 11:42 Pulse Ox 99 08/04/21 11:42 O2 Del Method Room Air 08/04/21 11:42 Allergies Allergy/AdvReac Type Severity Reaction Status Date / Time amoxicillin Allergy Mild Nausea AND Verified 08/04/21 12:01 ITCHING codeine Allergy Unknown unknown Verified 08/04/21 12:01 esomeprazole Allergy Unknown Itching Verified 08/04/21 12:01 pantoprazole Allergy Unknown Itching Verified 08/04/21 12:01 rabeprazole Allergy Unknown Unknown Verified 08/04/21 12:01 Home Medications Medication Instructions Recorded Confirmed Type mzsanw-zwmycdqs-rtqzcar 2 cap PO TID 11/01/19 08/04/21 History 25,000-79,000-105,000 unit capsule,delayed rel (Zenpep) ropinirole 3 mg tablet 3 mg PO QHS #90 tabs 02/12/21 08/04/21 Rx amlodipine 10 mg tablet 10 mg PO DAILY 05/04/21 08/04/21 History montelukast 10 mg tablet 10 mg PO DAILY 05/04/21 08/04/21 History aluminum hydrox-magnesium carb 95 15 ml PO .PRN 05/06/21 08/04/21 History mg-358 mg/15 mL oral suspension (Gaviscon) famotidine 20 mg tablet 20 mg PO DAILY 05/06/21 08/04/21 History vitamin E (dl, acetate) 180 mg 180 mg PO DAILY 05/06/21 08/04/21 History (400 unit) capsule Super C 1 tab-cap PO DAILY 05/13/21 08/04/21 History vit C,E,zinc,copper-gbpwo2w 250 1 cap PO DAILY 05/13/21 08/04/21 History mg-lutein 5 mg-zeaxanthin 1 mg capsule (Ocuvite Adult 50 Plus) fluticasone propionate 50 1 spray intranasal BID #16 grams 06/09/21 08/04/21 Rx mcg/actuation nasal spray,suspension (Flonase Allergy Relief) estradiol 0.01% (0.1 mg/gram) 1 g vaginal 2XW 07/14/21 08/04/21 History vaginal cream Laboratory Tests 08/04/21 11:49 Blood Type O Positive Antibody Screen Negative Patient hx anesthesia problems: none Family hx anesthesia problems: none Results Review: All pre-operative results and documents have been reviewed as part of the pre-operative evaluation. [facility] Past Medical History Medical History Acid reflux Anemia Arthritis Bruises easily Hypertension Urinary incontinence Surgical History Surgical History History of cholecystectomy History of colonoscopy History of ERCP History of esophagogastroduodenoscopy (EGD) History of hemorrhoidectomy History of hip replacement History of repair of hiatal hernia Hx of cataract surgery Family History Family History Sibling Family history of diabetes mellitus in first degree relative Family history of lymphoma Family history of malignant neoplasm of kidney Mother , 1 month after childbirth in 1936 No problems noted. Father Malignant brain tumor Sibling Seizures COPD (chronic obstructive pulmonary disease) Lymphoma Sibling Diabetes mellitus Hypertension Heart disease Bone cancer Brain tumor Social History Social History Smoking packs per day: 0.5 Smoking cigarettes per day: 10.0 Years smoked: 49 Smoking pack-years: 24.50 Smoking status: Never smoker Tobacco type: cigarettes Smoking end date: 03/01/00 Alcohol intake: never Substance use: never Substance use type: does not use Living arrangements: with family Gender identity (if verbalized by the patient): Female Spiritual care concerns: No Anes - Eval Final PreProcedure Day of P
[2021-08-04] MEDS: ceFAZolin 2 GM/D5W 50 ML 2 GM/50 ML BAG IVPB (13:42)
[2021-08-04] MEDS: LIDO 1%/EPINEPHRINE/PF 1:200,000 30 ML VIAL 20 ML INFILTRATE (14:08)
--- NOTE | 2021-08-04 15:14 | W.PM.PROC2 ---
Procedure Note - Detailed Date of Procedure 08/04/21 Pre-op Diagnosis midline cystocele Female perineal laxity Stress incontinence Post-op Diagnosis Same Procedure Performed Cystocele repair Perineal repair Urethral sling Cystoscopy Surgeon Derian Adame MD Indications This is a with prolapse as well as stress incontinence. She is not sexually active. She is here today for the above procedure. She understands the risk of bleeding, infection, recurrence of prolapse, damage to surrounding organs, damage to the urinary tract, vaginal mesh erosion, urinary tract mesh erosion, obstructive voiding requiring secondary procedure, hip and leg pain, inability that penetrated intercourse. She agrees to proceed Description of Procedure She was correctly identified. Informed consent obtained. From the operating room. She was given general anesthesia. She was placed the dorsal lithotomy position. She was prepped and draped sterile fashion. Time-out performed. I placed Mcleod catheter. I placed a [place] retractor. She had a large cystocele just beyond the introitus. She had minimal uterine descensus. She had perineal laxity. I grasped the cystocele Allis clamps. I infiltrated some teas tissues with local. I made a midline vaginal incision. I dissected out laterally and ports the apex separate the mucosa from the underlying fascial structures. I then performed a plication cystocele repair using interrupted 0 Vicryl suture. I trimmed significant excess vaginal mucosa. I closed the vaginal mucosa with a running 2-0 Vicryl suture. There was excellent reduction of the cystocele I then turned my attention towards the sling. I marked out the thigh incisions. I anesthetized the anterior vaginal wall and mid urethra. I made a 1 cm incision. I type dissected out laterally. I took great care not to injure the refilled vaginal wall. I passed helical trocars. First on the left. Then on the right. From the thigh incision was vaginal incision. Sling was connected to trocars and brought out through the thigh incision. I tensioned the sling appropriately. I cut and the plastic sheaths. I then closed the incision with a 2 0 Vicryl. I then marked out a jenifer-shaped area of skin on the perineum. She is not sexually active. I opted to perform a rather aggressive perineal repair to protect the cystocele repair. I anesthetized area of skin removed it. I then performed a perineal repair with interrupted 0 Vicryl suture. I used a 2-0 Vicryl closed mucosa. There was excellent support of the perineum. On cystoscopy there is no tumors, stones, there is mild trabeculations. Both ureters were documented to be patent by passing wires up. There was no surgical artifact the bladder or urethra. I replaced Mcleod catheter. I cut the excess sling material. Closed incision with glue. Rectal exam was normal. She was awakened transferred to PACU in stable condition. Estimated Blood Loss -20.0
--- NOTE | 2021-08-04 16:52 | OBPPTRN ---
Patient transferred to post room #281 via bed. Support person present. Oriented to unit, room, information board, Patient verbalizes understanding.
[2021-08-04] MEDS: KCL 20 MEQ/D5/0.45% SOD CHL 1,000 ML 100 ML IV CONT (17:43)
[2021-08-04] MEDS: HYDROcodone/acetaminophen (*CRX) 5-325 MG TABLET 1 TAB PO ×2 (18:04→21:48)
[2021-08-04] MEDS: rOPINIRole HCL 1 MG TABLET 3 MG PO (21:03)
[2021-08-04] MEDS: ONDANSETRON INJ 4 MG/2 ML VIAL IV PUSH (21:48)
[2021-08-05 04:32] VITALS: BP 138/53; PULSE 64; RESP 16; TEMP 36.8; O2SAT 95
[2021-08-05] MEDS: ONDANSETRON INJ 4 MG/2 ML VIAL IV PUSH (07:23)
[2021-08-05 07:25] VITALS: BP 164/65; PULSE 72; RESP 16; TEMP 37.3; O2SAT 96
--- NOTE | 2021-08-05 09:14 | WPDANESPN ---
Anes - Prog Note Post-Op Date/Time: 08/05/21 09:14 Cardiovascular status: normal Respiratory status: normal Airway patency: baseline Mental status: baseline Post-Op hydration status: normal Vital Signs: Last Vital Signs Temp 99.2 F 08/05/21 07:25 Pulse 72 08/05/21 07:25 Resp 16 08/05/21 07:25 BP 164/65 H 08/05/21 07:25 Pulse Ox 96 08/05/21 07:25 O2 Del Method Room Air 08/05/21 07:25 O2 Flow Rate 8 08/04/21 15:15 Pain Score (VAS): 1 I/O: Intake & Output 08/04/21 08/05/21 08/05/21 23:59 07:59 15:59 Intake Total 1760 400 Output Total 1525 300 Balance 235 100 08/04/21 11:49 Blood Type O Positive Antibody Screen Negative Post-procedural complaints: none Patient Feedback: Patient satisfied with anesthetic care.
[2021-08-05] MEDS: amLODIPine BESYLATE 5 MG TABLET 10 MG PO (09:19)
[2021-08-05] MEDS: MONTELUKAST SODIUM 10 MG TABLET PO (09:19)
[2021-08-05] MEDS: DOCUSATE SODIUM 100 MG CAPSULE PO (09:19)
[2021-08-05] MEDS: ENOXAPARIN 30 MG/0.3 ML SYRINGE SUB-Q (09:20)
--- NOTE | 2021-08-05 09:27 | PC.NURSE ---
Bladder scan 166cc's
--- NOTE | 2021-08-05 12:15 | WPDUROPN2 ---
Progress Note: A&P Assessment and Plan (1) TRUDY (stress urinary incontinence, female): Code(s): N39.3 - Stress incontinence (female) (male) Status: Acute Assessment and Plan: Ok to discharge home once she urinates. (2) Uterine prolapse: Code(s): N81.4 - Uterovaginal prolapse, unspecified Status: Acute Subjective Subjective Date/Time Seen: 08/05/21 12:15 Cystocele repair, perineal repair, urethral sling, cysto Patient doing well today, she is tolerating diet and activity with minimal pain. She has her vail removed and is awaiting to urinate. Post Op day: 1 Review of Systems Cardiovascular: Cardiovascular: Denies chest pain Respiratory: Respiratory: Reports no additional respiratory complaints Gastrointestinal: Gastrointestinal: Denies abdominal pain, Denies nausea and Denies vomiting Genitourinary: Genitourinary: Denies hematuria, Denies dysuria, Denies flank pain, Denies urinary hesitancy, Denies urinary urgency and Reports vaginal discharge Exam Resp: Effort & Inspection: normal respiratory effort Cardio: Rate: regular rate GI: Inspection: incision (all are well approximated, no redness or edema present) GI Palp: Yes Soft to palpation and No Tenderness to palpation present (GI) : General: Yes no CVA tenderness Extrem: Right lower extremity: no edema Left lower extremity: no edema Objective Data Vital Signs Vital Signs: Vital Signs - 24 hr 08/04/21 15:00 08/04/21 15:15 08/04/21 15:30 Temperature 96.6 F L Pulse Rate 79 72 71 Respiratory Rate 18 15 16 Blood Pressure 151/111 H 139/63 139/119 H Pulse Oximetry 98 100 96 Oxygen Delivery Simple Face Mask Simple Face Mask Room Air Oxygen Flow Rate 8 8 08/04/21 15:45 08/04/21 16:00 08/04/21 16:15 Temperature Pulse Rate 66 70 66 Respiratory Rate 10 L 20 20 Blood Pressure 147/43 H 142/48 H 139/48 L Pulse Oximetry 95 92 93 Oxygen Delivery Room Air Room Air Room Air Oxygen Flow Rate 08/04/21 16:30 08/04/21 17:15 08/04/21 17:15 Temperature 99.8 F H Pulse Rate 68 71 71 Respiratory Rate 16 16 16 Blood Pressure 150/56 H 152/64 H Pulse Oximetry 93 94 94 Oxygen Delivery Room Air Room Air Oxygen Flow Rate 08/04/21 19:15 08/04/21 19:15 08/04/21 23:02 Temperature 97.3 F L Pulse Rate 74 74 63 Respiratory Rate 16 16 15 Blood Pressure 136/48 L Pulse Oximetry 98 98 96 Oxygen Delivery Room Air Room Air Oxygen Flow Rate 08/04/21 23:02 08/05/21 04:32 08/05/21 04:32 Temperature 97.4 F L 98.2 F Pulse Rate 63 64 64 Respiratory Rate 15 16 16 Blood Pressure 143/46 H 138/53 L Pulse Oximetry 96 95 95 Oxygen Delivery Oxygen Flow Rate 08/05/21 07:25 08/05/21 07:25 Temperature 99.2 F Pulse Rate 72 72 Respiratory Rate 16 16 Blood Pressure 164/65 H Pulse Oximetry 96 96 Oxygen Delivery Room Air Oxygen Flow Rate Intake/Output Intake/Output: Intake & Output 08/02/21 08/03/21 08/04/21 08/05/21 23:59 23:59 23:59 23:59 Intake Total 2810 400 Output Total 2024 1050 Balance 785 -123 Labs Labs: Laboratory Results - last 24 hr 08/04/21 11:49 Blood Type O Positive Antibody Screen Negative
== END 2021-08-05 11:42 | disposition home or self-care (01) ==
LOC: ANHSURGERY 11:05 → ANHOB2 16:55
PROVIDERS: PCP Physician Assistant; Visit Provider Urology
PROC: (CPT 57120; principal; 2021-08-04 13:15)
DX: N81.11 Cystocele, midline (principal); N39.3 Stress incontinence (female) (male); I10 Essential (primary) hypertension; K21.9 Gastro-esophageal reflux disease without esophagitis; Z87.891 Personal history of nicotine dependence
CPT/HCPCS: 57288; 57240; 36415; 80053; 85025; 85610; 85730; 86850; 86900; 86901; 87086; 93005; 99199; A9270; C1771; J0690; J1100; J1650; J2405; J2704; J3010; J3480; J7030; J7120

== ENCOUNTER 2021-11-15 18:21 | Emergency (ER) | payer MEDICARE, SELFPAY ==
--- NOTE | ~2021-11-15 | XR_ITS ---
EXAMINATION: XR chest 2V Exam Date/Time: 11/15/2021 18:48 CDT HISTORY: cough, with crackle sounds Comparison: 07/19/2017. RESULT: Lines, tubes, and devices: Cholecystectomy clips. Lungs and pleura: Clear. Senescent change and bibasilar scarring/atelectasis. Cardiomediastinal silhouette: Stable. Other: No acute osseous or upper abdominal finding. IMPRESSION: No acute cardiopulmonary process. Reviewed, dictated and finalized at location K.
[2021-11-15 18:31] VITALS: BP 145/60; PULSE 69; RESP 18; TEMP 36.6; O2SAT 100
--- NOTE | 2021-11-15 18:58 | ED.EXTPRO ---
HPI - Extremity Problem General Chief complaint: Upper Respiratory Infection Stated complaint: Headache,Bodyache Time Seen by Provider: 11/15/21 18:35 Source: patient Mode of arrival: ambulatory Limitations: no limitations History of Present Illness HPI Narrative: Ms. Sanders is an 86-year-old female patient presenting to the clinic today with complaints of cough, body aches and, not feeling right. States that the symptoms started this morning. She denies any fever or chills however she states that she never has fever when she is ill. She reports that she has had exposure to someone with COVID. Related Data Home Medications Medication Instructions Recorded Confirmed yijcej-fbvmpppp-mxasuid 2 cap PO TID 11/01/19 11/15/21 25,000-79,000-105,000 unit capsule,delayed rel (Zenpep) amlodipine 10 mg tablet 10 mg PO DAILY 05/04/21 11/15/21 montelukast 10 mg tablet 10 mg PO DAILY 05/04/21 11/15/21 aluminum hydrox-magnesium carb 95 15 ml PO .PRN 05/06/21 11/15/21 mg-358 mg/15 mL oral suspension (Gaviscon) famotidine 20 mg tablet 20 mg PO DAILY 05/06/21 11/15/21 vitamin E (dl, acetate) 180 mg 180 mg PO DAILY 05/06/21 11/15/21 (400 unit) capsule Super C 1 tab-cap PO DAILY 05/13/21 11/15/21 vit C,E,zinc,copper-sqqbw9s 250 1 cap PO DAILY 05/13/21 11/15/21 mg-lutein 5 mg-zeaxanthin 1 mg capsule (Ocuvite Adult 50 Plus) estradiol 0.01% (0.1 mg/gram) 1 g vaginal 2XW 07/14/21 11/15/21 vaginal cream Allergies Allergy/AdvReac Type Severity Reaction Status Date / Time amoxicillin Allergy Mild Nausea AND Verified 11/15/21 18:29 ITCHING codeine Allergy Unknown unknown Verified 11/15/21 18:29 esomeprazole Allergy Unknown Itching Verified 11/15/21 18:29 pantoprazole Allergy Unknown Itching Verified 11/15/21 18:29 rabeprazole Allergy Unknown Unknown Verified 11/15/21 18:29 Review of Systems Review of Systems: Pertinent positives per HPI. Patient denies any fever, chills, rash, headache, visual changes, dizziness, shortness of breath, chest pain, palpitations, nausea, vomiting, diarrhea, constipation, abdominal pain, or any urinary issues. [facility] Past Medical History Medical History Acid reflux Anemia Arthritis Bruises easily Hypertension Urinary incontinence Surgical History Surgical History History of cholecystectomy History of colonoscopy History of ERCP History of esophagogastroduodenoscopy (EGD) History of hemorrhoidectomy History of hip replacement History of repair of hiatal hernia Hx of cataract surgery Family History Family History Sibling Family history of diabetes mellitus in first degree relative Family history of lymphoma Family history of malignant neoplasm of kidney Mother , 1 month after childbirth in 1936 No problems noted. Father Malignant brain tumor Sibling Seizures COPD (chronic obstructive pulmonary disease) Lymphoma Sibling Diabetes mellitus Hypertension Heart disease Bone cancer Brain tumor Social History Social History Smoking packs per day: 0.5 Smoking cigarettes per day: 10.0 Years smoked: 49 Smoking pack-years: 24.50 Smoking status: Former smoker Tobacco type: cigarettes Smoking end date: 03/01/00 Alcohol intake: never Substance use: never Substance use type: does not use Gender identity (if verbalized by the patient): Female Spiritual care concerns: No Comments At the time of my signature, I reviewed and agree with the nursing past medical, surgical, social, and family history. There is no relevant family history pertinent to the patient complaint. Exam Narrative: General: Well-developed, well nourished, in no apparent distress
[2021-11-16 18:59] LABS: SARS-CoV-2 RNA PCR Negative
== END 2021-11-15 19:35 | disposition home or self-care (01) ==
PROVIDERS: Emergency Provider Nurse Practitioner Family; PCP Physician Assistant
DX: B34.9 Viral infection, unspecified (principal); K21.9 Gastro-esophageal reflux disease without esophagitis; I10 Essential (primary) hypertension; Z96.649 Presence of unspecified artificial hip joint; Z87.891 Personal history of nicotine dependence; Z20.822 Contact with and (suspected) exposure to COVID-19
CPT/HCPCS: 71046; 87426; 87804; 99213; C9803; G0463; U0003; U0005

== ENCOUNTER → 2021-11-27 09:34 | Outpatient (CLI) | payer MEDICARE, SELFPAY ==
--- NOTE | ~2021-11-27 | MMUS_ITS ---
EXAMINATION: MM diagnostic deangelo BI w josephine, US breast BI limited HISTORY: Patient fell approximately 2 months ago onto left breast and noticed a lump at that time. TECHNIQUE: Bilateral full field and spot ML, MLO and CC 3-D tomosynthesis images were performed and s ynthetic 2-D images were generated. CAD analysis was submitted and interpreted. High resolution upper outer quadrant right breast ultrasound and targeted left breast ultrasound at 11-12:00 breast ultras ound was performed. The examination was supervised by Dr. Rivas, interpreted by Dr. Cook. COMPARISON: 07/23/2017 bilateral screening mammogram BREAST PARENCHYMAL COMPOSITION: There are scattered areas of fibroglandular density. FINDINGS: MAMMOGRAPHIC FINDINGS: There is a cluster of grouped granular and occasional linear microcalcifications in linear and somewh at branching configuration in the upper outer quadrant of the right breast. Stereotactic biopsy is re commended. Otherwise are multiple scattered bilateral benign breast calcifications. No suspicious mass or architectural distortion or significant new or developing density of either cecelia ast is noted otherwise since 07/23/2017. ULTRASOUND: Targeted ultrasound in the upper outer quadrant of the right breast reveals no suspicious mass or sha dowing. Targeted ultrasound at left breast at area of clinical complaint at 11-12 o'clock 4 cm from the nippl e reveals an approximately 2.5 mm cyst no suspicious mass or shadowing. IMPRESSION: 1. New grouped microcalcifications in upper outer right breast 2. Stereotactic biopsy of upper outer right breast microcalcifications is recommended BI-RADS category 4, suspicious findings. Dr. Cook telephoned the report and stereotactic biopsy recommendation on 11/27/2021 at 1106 hours to Geo santoyo, senior patient account representative; she indicated that the [facility] medical assistants were busy but she would relay t he message. Reviewed, dictated and finalized at location A. IMPRESSION: 1. New grouped microcalcifications in upper outer right breast 2. Stereotactic biopsy of upper outer right breast microcalcifications is recom mended BI-RADS category 4, suspicious findings. Dr. Cook telephoned the report and stereotactic biopsy recommendation on at 1106 hours to Eleonora, senior patient account representative; she indicated that the tube medica l assistants were busy but she would relay the message.
== END ==
PROVIDERS: PCP Physician Assistant; Visit Provider Obstetrics & Gynecology
DX: R92.8 Other abnormal and inconclusive findings on diagnostic imaging of breast (principal); N60.02 Solitary cyst of left breast; R92.0 Mammographic microcalcification found on diagnostic imaging of breast
CPT/HCPCS: 76642; 77062; 77066; G0279

== ENCOUNTER 2022-02-12 10:19 | Outpatient (CLI) | payer MEDICARE, SELFPAY ==
--- NOTE | 2022-02-12 10:30 | ECG_ITS ---
Measurements Intervals Neligh Rate: 66 P: 14 ID: [id number] QRS: -21 QRSD: 89 T: 31 QT: 393 QTc: 413 Interpretive Statements SINUS RHYTHM WITH OCCASIONAL VENTRICULAR PREMATURE COMPLEXES BORDERLINE LEFT AXIS DEVIATION [QRS AXIS < -20] MINIMAL VOLTAGE CRITERIA FOR LVH, CONSIDER NORMAL VARIANT [MEETS CRITERIA IN ONE OF: R(aVL), S(V1), R(V5), R(V5/V6)+S(V1)] COMPARED TO ECG 07/16/2021 12:54:08 NO SIGNIFICANT CHANGES Electronically Signed On 02-12-2022 16:03:55 RESERVATION AGENT by Sim Witt M.D.
== END 2022-02-12 10:20 | disposition home or self-care (01) ==
LOC: ANHCARD 10:21
PROVIDERS: PCP Physician Assistant; Visit Provider Physician Assistant
DX: I49.9 Cardiac arrhythmia, unspecified (principal); R94.31 Abnormal electrocardiogram [ECG] [EKG]
CPT/HCPCS: 93005

== ENCOUNTER 2022-04-01 08:04 | Outpatient (CLI) | payer MEDICARE, SELFPAY ==
--- NOTE | ~2022-04-01 | DEXA_ITS ---
Bone Density Report Name: Marshal ESPOSITO Age: 86 Sex: Female Ethnicity: White Date of : 1935 Indication: postmenopausal; screening for osteoporosis; height loss; prior fracture; cancer; secondary osteoporosis; Referring Provider: OUMAR TEJEDA Study: Bone densitometry was performed. Exam Date: April 01, 2022 Accession number: [id number] Bone Density: Region BMD T-score Z-score Classification Total Forearm (Left) 0.335 -4.5 1/3 Forearm (Left) 0.397 -5.0 UD Forearm (Left) 0.276 -2.9 World Health Organization criteria for BMD impression classify patients as: Normal (T-score at or above -1.0), Osteopenia (T-score between -1.0 and -2.5), or Osteoporosis (T-score at or below -2.5). Clinical Information Provided by Patient: Has had a low trauma fracture Has secondary osteoporosis Has used the following medications: Vitamin D, Calcium Has the following medical conditions: Cancer Patient maximum height was 62 Menopause Age: 42 Does not regularly consume dairy products Drinks caffeinated beverages Onset of menses at age 11 Number of children 1 Impression: The patient has established osteoporosis, based on the Left Third Radius T-score and the existence of a prior fracture. The patient has risk factors, including: previous fracture. Discussion: HIGH RISK OF FRACTURE. BONE DENSITY IS UNDESIRABLY LOW AT ONE OR MORE SKELETAL SITES, CONSISTENT WITH POSTMENOPAUSAL OSTEOPOROSIS. This patient's lowest T-score, in a patient who has previously fractured, meets the World Health Organization's (WHO) criteria for severe osteoporosis. In untreated patients, the risk of osteoporotic fracture increases approximately two-fold for each 1.0 SD decrease in T-score. Low bone density is not the only risk factor for fracture; also consider factors such as patient's age, frailty or poor health, risk of falling, risk of injury, previous osteoporotic fracture, family history of osteoporosis, cigarette smoking, low body weight, etc. Not everyone with low bone mineral density has osteoporosis; osteomalacia and other metabolic bone disorders should also be considered. Patients who have osteoporosis should be evaluated for specific diseases and conditions (secondary causes) that may cause or contribute to bone loss. The [place] Association of Clinical Endocrinologists (AACE) and National Osteoporosis Foundation (NOF) recommend pharmacologic intervention for all postmenopausal women whose T-score is in this range. The patient should follow a healthful lifestyle (good nutrition with adequate calcium and vitamin D, and appropriate weight-bearing exercise). Follow-Up: Consider a repeat BMD and Vertebral Fracture Assessment (VFA) exam in 2 years or sooner if medically necessary, to reassess this patient's status. Reported by: ELDON on 04/01/2022 2:25:00 PM. Reviewed, dictated and finalized at location ASandra HOOD
--- NOTE | ~2022-04-01 | DEXA_ITS ---
Bone Density Report Name: Marshal ESPOSITO Age: 86 Sex: Female Ethnicity: White Date of : 1935 Indication: postmenopausal; screening for osteoporosis; height loss; prior fracture; cancer; secondary osteoporosis; Referring Provider: OUMAR TEJEDA Study: Bone densitometry was performed. Exam Date: April 01, 2022 Accession number: [id number] Bone Density: Region BMD T-score Z-score Classification AP Spine(L2, L3, L4) 1.121 0.4 3.3 Normal Femoral Neck (Left) 0.743 -1.0 1.6 Normal Total Hip (Left) 0.819 -1.0 1.3 Normal World Health Organization criteria for BMD impression classify patients as: Normal (T-score at or above -1.0), Osteopenia (T-score between -1.0 and -2.5), or Osteoporosis (T-score at or below -2.5). 10-year Fracture Risk: FRAX not reported because: All T-scores for Spine Total, Hip Total, Femoral Neck at or above -1.0 Clinical Information Provided by Patient: Has had a low trauma fracture Has secondary osteoporosis Has used the following medications: Vitamin D, Calcium Has the following medical conditions: Cancer Patient maximum height was 62 Menopause Age: 42 Does not regularly consume dairy products Drinks caffeinated beverages Onset of menses at age 11 Number of children 1 Impression: The patient has normal bone mass. The patient has risk factors, including: previous fracture. Discussion: BONE DENSITY IS ABOVE THE MINIMUM DESIRABLE LEVEL AT ALL SKELETAL SITES TESTED. This patient?s bone mineral density is above the minimum desirable level (T-score -1.0 or better) at all sites measured. The patient should follow a healthful lifestyle (good nutrition with adequate calcium and vitamin D, and appropriate weight-bearing exercise). Follow-Up: Consider repeating this study in 5 years or sooner if there is some new clinical indication. Reported by: ELDON on 04/01/2022 2:28:00 PM. Reviewed, dictated and finalized at location A. [facility]
== END 2022-04-01 08:05 | disposition home or self-care (01) ==
LOC: ANHIMG 08:06
PROVIDERS: PCP Physician Assistant
DX: C50.919 Malignant neoplasm of unspecified site of unspecified female breast (principal); M80.08XA Age-related osteoporosis with current pathological fracture, vertebra(e), initial encounter for fracture
CPT/HCPCS: 77080; 77081

== ENCOUNTER 2023-01-06 13:36 | Outpatient (CLI) | payer MEDICARE, SELFPAY ==
[2023-01-06 14:41] LABS: Basophils Absolute Auto 0.1 K/mm3 (0.0-0.1); Eosinophils Absolute Auto 0.2 K/mm3 (0-0.3); Eosinophils Percent Auto 2.4 % (0-4.4); Hematocrit 39.1 % (37.0-47.0); Hemoglobin 12.9 g/dL (12.0-15.0); Immature Granulocyte Absolute 0.02 K/mm3 (0.00-0.031); Immature Granulocyte Percent A 0.3 % (0-0.5); Lymphocytes Absolute Auto 1.65 K/mm3 (0.9-3.2); Mean Corpuscular Hemoglobin 31.8 pg (26-34); Mean Corpuscular Volume 96.3 fl (80-100); Mean Platelet Volume 9.5 fl (7.4-10.4); Monocytes Absolute Auto 0.7 K/mm3 (0.1-0.6); Monocytes Percent Auto 10.2 % (2.6-8.5); Neutrophils Absolute Auto 4.5 K/mm3 (1.3-6.7); Neutrophils Percent Auto 63.1 % (45.5-73.1); Platelet Count Result 218 k/mm3 (150-375); Red Blood Count 4.06 M/mm3 (4.2-5.4); White Blood Count 7.2 K/mm3 (4.5-10.0)
[2023-01-06 14:58] LABS: Alanine Aminotransferase 17 U/L (6-35); Albumin Level 4.4 g/dL (3.5-5.1); Alkaline Phosphatase 109 U/L (38-126); Anion Gap 7 mmol/L (8-16); Aspartate Amino Transferase 33 U/L (14-36); Bilirubin,Total 0.7 mg/dL (0.2-1.3); Blood Urea Nitrogen 14 mg/dL (7-17); Calcium 9.7 mg/dL (8.4-10.2); Carbon Dioxide 25 mmol/L (22-30); Chloride 106 mmol/L (98-107); Estimated Glomerular Filt Rate > 60; Glucose 96 mg/dL (65-110); Potassium 3.8 mmol/L (3.4-5.0); Sodium 138 mmol/L (137-145)
== END 2023-01-06 13:37 | disposition home or self-care (01) ==
PROVIDERS: PCP Physician Assistant; Visit Provider Internal Medicine Hematology & Oncology
DX: D05.11 Intraductal carcinoma in situ of right breast (principal)
CPT/HCPCS: 36415; 80053; 85025

== ENCOUNTER 2023-02-02 10:20 | Outpatient (CLI) | payer MEDICARE, SELFPAY ==
--- NOTE | ~2023-02-02 | MM_ITS ---
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 CAD analysis was submitted and interp reted. COMPARISON: 08/17/2022, 01/27/2022, 11/20/2021, 09/25/2019 BREAST PARENCHYMAL COMPOSITION: There are scattered areas of fibroglandular density. FINDINGS: A biopsy marker is noted in the upper outer quadrant of the right breast corresponding to t he area of biopsy-proven ductal carcinoma in situ. No suspicious interval change is identified. There are chronic benign appearing bilateral breast calcifications. No suspicious mass or architectural di stortion are identified. IMPRESSION: 1. Changes in the upper outer quadrant of the right breast corresponding to biopsy-proven ductal carc inoma in situ. No suspicious interval change. 2. Recommend follow-up as clinically indicated. BI-RADS category 6, known, biopsy-proven malignancy. Reviewed, dictated and finalized at location A. L ENGINEERING SPECIALIST IMPRESSION: 1. Changes in the upper outer quadrant of the right breast corresponding to bio psy-proven ductal carcinoma in situ. No suspicious interval change. 2. Recommend follow-up as clinically indicated. BI-RADS category 6, known, biopsy-proven malignancy.
== END 2023-02-02 10:21 | disposition home or self-care (01) ==
PROVIDERS: PCP Physician Assistant; Visit Provider Internal Medicine Hematology & Oncology
DX: D05.11 Intraductal carcinoma in situ of right breast (principal); R92.8 Other abnormal and inconclusive findings on diagnostic imaging of breast
CPT/HCPCS: 77062; 77066; G0279

== ENCOUNTER 2023-02-11 00:33 | Day surgery (SDC) | payer MEDICARE, SELFPAY ==
[2023-02-08 11:05] VITALS: BMI 24.3
--- NOTE | 2023-02-08 11:25 | PC.NURSE ---
Report to the Outpatient Waiting Room, entrance under the green pavilion located off [facility], at time ____1000___ on date ___02/11/23____. Planned Procedure Time: _1200_. Time changes happen often and if your time is changed the preop area will call you the afternoon before. - You and your visitor will be asked to self-screen and do not enter if you have any COVID symptoms. - A mask is optional within the hospital at this time. Patients may have clear liquids (water, carbonated beverages, clear teas, apple juice) until 3 hours prior to surgery (0900 AM) with a maximum of 20 ounces. - No food from midnight until time of surgery - Infants may have breast milk until 4 hours before surgery, infant formula 6 hours prior to surgery. - Children will be allowed to drink immediately following surgery. If applicable, please bring a bottle or sippy cup to assist with drinking. Juice, water, soda, and popsicles are readily available. For infants on formula, please bring formula the day of surgery. Pacifiers are allowed. Take the following medications with a SIP of water the morning of surgery: _AMLODIPINE, EYE DROPS, NASAL SPRAY__ DO NOT STOP ANY OF YOUR OTHER PRESCRIPTION MEDICATIONS PRIOR TO SURGERY ?EXCEPT THE FOLLOWING Medications to discontinue per ANESTHESIA - _VITAMINS/SUPPLEMENTS OF TODAY Date to take last dose___02/08/23 Please no make-up, nail vietnamese, hairspray, perfume, deodorant, or body powder the day of surgery. No jewelry (including any body piercings) or valuables the day of surgery, leave them at home. Please take a shower or bath the night before, or the morning of, surgery with an antibacterial soap. Wear comfortable, loose fitting clothing. Children are encouraged to wear pajamas. - Jewelry must be removed prior to entering the operating room. Rings and piercings that are not removed may be cut off. - The hospital will not accept responsibility for valuables. - Please leave all valuables, including medications, at home the day of surgery. If you are going home after surgery, a licensed road train driver must drive you home. - NO public transportation without another adult if you receive anesthesia. - We recommend that an adult stay with you for 24 hours following discharge. - We also recommend that you do not drive, make important decision, drink alcoholic beverages, or take any drugs that were not prescribed by your health care provider for at least 24 hours after your discharge time. For Pediatric surgeries, we recommend two adults accompany the child home. Follow any additional instructions given to you from your surgeon. If you or anyone in your household have experienced Covid symptoms in the past week, please notify your surgeon or the nurse liaison at the phone number below for possible testing. Telephone instructions given to ____PT and asked if any additional questions and then verbalized understanding. Patient advised to call surgeon office or pre surgery nurse liaison [phone] if any additional questions.
[2023-02-11] VITALS (7 sets, daily range): BP systolic 121–155; BP diastolic 41–52; PULSE 55–76; RESP 16–20; TEMP 36.5–36.6; O2SAT 97–100
--- NOTE | ~2023-02-11 | MM_ITS ---
EXAMINATION: MM needle loc RT MAMMOGRAPHY SPECIMEN DATE: 02/19/2023 08:28 PROTECTIVE SIGNAL REPAIRER HELPER INDICATION: Abnormal right breast mammogram. TECHNIQUE: The procedure for a mammography-guided needle localization was discussed with the patient' s. Risks and benefits were detailed, including risks of bleeding, infection, pain, and nondiagnostic specimen. The patient verbalized understanding and agreed to proceed. The time out was performed to verify the patient's name, date of , and site of procedure. The p atient was placed in right breast compression, and the skin overlying the right breast was prepped in usual fashion. Utilizing mammography guidance, a needle was advanced into the right breast. Two co nfirmatory films were obtained. The patient tolerated procedure without immediate complication. A specimen radiograph was performed. FINDINGS: Two view confirmatory films of the right breast demonstrate a the wire adjacent to the tiss ue markers of interest. Tissue markers are contained within the surgical specimen.] IMPRESSION: 1. Successful mammography-guided right breast needle localization. Reviewed, dictated and finalized at location A. ECTIVE SIGNAL REPAIRER HELPER
--- NOTE | ~2023-02-11 | MM_ITS ---
INDICATION: Right breast cancer. TECHNIQUE: The procedure for a mammography-guided needle localization was discussed with the patient's. Risks and benefits were detailed, including risks of bleeding, infection, pain, and nondiagnostic specimen. The patient verbalized understanding and agreed to proceed. The time out was performed to verify the patient's name, date of , and site of procedure. The patient was placed in right breast compression, and the skin overlying the right breast was prepped in usual fashion. Utilizing mammography guidance, a needle was advanced into the right breast. Two confirmatory films were obtained. The patient tolerated procedure without immediate complication. A specimen radiograph was performed. FINDINGS: Two view confirmatory films of the right breast demonstrate a the wire adjacent to the tissue markers of interest. The tissue markers are contained within the surgical specimen. IMPRESSION: 1. Successful mammography-guided right breast needle localization. ET MACHINE OPERATOR ERWIN
[2023-02-11] MEDS: LACTATED RINGERS 1,000 ML 30 ML IV CONT (10:50)
[2023-02-11] MEDS: ACETAMINOPHEN 500 MG TABLET 1000 MG PO (10:50)
--- NOTE | 2023-02-11 11:07 | WPDANESEPPF ---
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 Patient Data Age: 87 Gender: F Height: 1.5 m Weight: 55.7 kg Last Vital Signs Temp 36.6 C 02/11/23 10:35 Pulse 76 02/11/23 10:35 Resp 18 02/11/23 10:35 BP 153/41 H 02/11/23 10:35 Pulse Ox 98 02/11/23 10:35 O2 Del Method Room Air 02/11/23 10:35 Allergies Allergy/AdvReac Type Severity Reaction Status Date / Time amoxicillin Allergy Mild Nausea AND Verified 02/11/23 10:29 ITCHING codeine Allergy Unknown N/V Verified 02/11/23 10:29 esomeprazole Allergy Unknown Itching Verified 02/11/23 10:29 pantoprazole Allergy Unknown Itching Verified 02/11/23 10:29 rabeprazole Allergy Unknown Itching Verified 02/11/23 10:29 Home Medications Medication Instructions Recorded Confirmed Type kzsfld-rrdazzta-ibulfib 2 cap PO TID 11/01/19 02/08/23 History 25,000-79,000-105,000 unit capsule,delayed rel (Zenpep) aluminum hydrox-magnesium carb 95 15 ml PO .PRN 05/06/21 02/08/23 History mg-358 mg/15 mL oral suspension (Gaviscon) famotidine 20 mg tablet See Rx Instructions .Route .COMPLEX 05/06/21 02/08/23 History vitamin E (dl, acetate) 180 mg 180 mg PO DAILY 05/06/21 02/08/23 History (400 unit) capsule Super C 1 tab-cap PO DAILY 05/13/21 02/08/23 History vit C,E,zinc,copper-rmwdl0z 250 1 cap PO DAILY 05/13/21 02/08/23 History mg-lutein 5 mg-zeaxanthin 1 mg capsule (Ocuvite Adult 50 Plus) artificial 1 drp EACH EYE ONCE PRN Dry Eye(S) 12/01/21 02/08/23 History tears(wyclcsu-fzztsjgy-hodqjil) 0.1 %-0.3 %-0.2 % eye drops (GenTeal Tears Moderate) peg 400-propylene glycol (PF) 0.4 1 drp EACH EYE DAILY PRN Dry Eyes 12/01/21 02/08/23 History %-0.3 % eye drops in a dropperette (Systane (PF)) calcium carb and lactate 200 2 tablet PO DAILY 02/11/22 02/08/23 History mg-vitamin D3 6.25 mcg (250 unit) tablet anastrozole 1 mg tablet 1 mg PO DAILY 07/07/22 02/08/23 History ondansetron HCl 4 mg tablet 4 - 8 mg PO Q8H PRN nausea and 07/07/22 02/08/23 Rx vomiting #30 tabs ropinirole 4 mg tablet 4 mg PO QHS #90 tabs 08/21/22 02/08/23 Rx amlodipine 10 mg tablet See Rx Instructions .Route 10/16/22 02/08/23 Rx .COMPLEX #90 tabs montelukast 10 mg tablet 10 mg PO QHS #90 tabs 01/09/23 02/08/23 Rx (Singulair) Cbd 15 mg PRN PAIN 02/08/23 02/08/23 History fluticasone propionate 50 1 spray intranasal BID PRN 02/08/23 02/08/23 History mcg/actuation nasal Congestion spray,suspension (Flonase Allergy Relief) loratadine 10 mg tablet (Claritin) 10 mg PO DAILY 02/08/23 02/08/23 History tramadol 50 mg tablet 50 mg PO Q6H PRN pain #12 tabs 02/11/23 Rx Patient hx anesthesia problems: none Family hx anesthesia problems: none Results Review: All pre-operative results and documents have been reviewed as part of the pre-operative evaluation. [facility] Past Medical History Medical History Acid reflux Anemia Arthritis Bruises easily Hypertension Urinary incontinence Surgical History Surgical History History of cholecystectomy History of colonoscopy History of ERCP History of esophagogastroduodenoscopy (EGD) History of hemorrhoidectomy History of hip replacement History of repair of hiatal hernia Hx of cataract surgery Family History Family History Sibling Family history of diabetes mellitus in first degree relative Family history of lymphoma Family history of malignant neoplasm of kidney Mother , 1 month after childbirth in 1936 No problems noted. Father Malignant brain roberto
--- NOTE | 2023-02-11 11:44 | WPDHPUPDATE1 ---
History and Physical Update Update Date/Time: 02/11/23 11:44 History and Physical has been reviewed, including an updated exam of the patient. There are NO changes in the patient's condition. Risks, benefits, and alternatives have been discussed and questions answered. Patient agrees to proceed with procedure.
--- NOTE | 2023-02-11 13:34 | PM.IMHP ---
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 Patient? returns today to discuss plans for surgery.? She has several questions which were addressed today in? clinic.? She is scheduled for a Magseed placement on February 02. Past HPI 11/16/22: 87 y/o female with right breast cancer here to establish care. Bilateral mammogram 01/27/2022 at [facility] showed RIGHT breast calcifications. RIGHT upper outer breast biopsy 12/2021 pathology showed DCIS ER+ NV+ nuclear grade 1/3, micropapillary and cribiform types without necrosis, involving multiple cores. Pt following with Dr. Sweta Conteh, surgery recommended, patient declined in favor of antiestrogen therapy. Most recent bilateral diagnostic mammogram with josephine 08/17/22 with stable group of pleomorphic microcalcifications in the upper outer right breast with associated biopsy marker corresponding to the biopsy-proven DCIS. Pt compliant with Arimidex. Review of Systems Review of Systems: All systems reviewed & are unremarkable except as noted in HPI and below PMFSH Past Medical History Medical History Acid reflux Anemia Arthritis Bruises easily Hypertension Urinary incontinence Surgical History Surgical History History of cholecystectomy History of colonoscopy History of ERCP History of esophagogastroduodenoscopy (EGD) History of hemorrhoidectomy History of hip replacement History of repair of hiatal hernia Hx of cataract surgery Family History Family History Sibling Family history of diabetes mellitus in first degree relative Family history of lymphoma Family history of malignant neoplasm of kidney Mother , 1 month after childbirth in 1936 No problems noted. Father Malignant brain tumor Sibling Seizures COPD (chronic obstructive pulmonary disease) Lymphoma Sibling Diabetes mellitus Hypertension Heart disease Bone cancer Brain tumor Social History Social History Smoking packs per day: 0.5 Smoking cigarettes per day: 10.0 Years smoked: 49 Smoking pack-years: 24.50 Smoking status: Former smoker Tobacco type: cigarettes Second hand tobacco smoke exposure: No Smoking end date: 03/01/00 Alcohol intake: never Substance use: current Substance use type: does not use Other substance usage details: 15MG CBD FOR PAIN Lack of Transportation: No Lack of Food: Never True Current Housing: I Have Housing Concerned About Future Housing: No Difficulty Paying Gas/Electric Bills: No Difficulty Paying for Meds: No Currently Unemployed: No Education: High School Diploma/GED Difficulty w/ Childcare or Family Care: No Living arrangements: with family Occupation/Education: retired Gender identity (if verbalized by the patient): Female Spiritual care concerns: No Meds Home Medications and Allergies Home Medications Medication Instructions Recorded Confirmed Type ecprsz-qdoqftga-bnidiec 2 cap PO TID 11/01/19 02/08/23 History 25,000-79,000-105,000 unit capsule,delayed rel (Zenpep) aluminum hydrox-magnesium carb 95 15 ml PO .PRN 05/06/21 02/08/23 History mg-358 mg/15 mL oral suspension (Gaviscon) famotidine 20 mg tablet See Rx Instructions .Route .COMPLEX 05/06/21 02/08/23 History vitamin E (dl, acetate) 180 mg 180 mg PO DAILY 05/06/21 02/08/23 History (400 unit) capsule Super C 1 tab-cap PO DAILY 05/13/21 02/08/23 History vit C,E,zinc,copper-ijbyl4y 250 1 cap PO DAILY 05/13/21 02/08/23 History mg-
[2023-02-11] MEDS: ceFAZolin 2 GM/D5W 50 ML 2 GM/50 ML BAG IVPB (13:40)
[2023-02-11] MEDS: BUPIVACAINE/EPINEPHRINE 0.5% 50 ML VIAL 20 ML INFILTRATE (13:56)
--- NOTE | 2023-02-11 15:02 | W.PM.PROC2 ---
Procedure Note - Detailed Date of Procedure 02/11/23 Pre-op Diagnosis right breast ductal carcinoma in situ Post-op Diagnosis Same Procedure Performed 1. Right breast lumpectomy with needle localization (CPT 24057) 2. Local tissue rearrangement closure (4cm x 2cm x 3cm defect) CPT 25607 Surgeon Breana Dougherty MD Electro Mechanical Solar Technician Millie Stallworth PA-C Anesthesia General Indications 87-year-old female previously evaluated for right breast DCIS, previously treated at outside hospital with endocrine therapy? per patient's choice, who is now interested in pursuing surgical options.? I discussed with patient the options for lumpectomy using a Maxi for localization vs mastectomy.? I explained the procedure in detail as well as the risks and postoperative /recovery.? Risks of the procedure discussed with the patient included but not limited to risk of bleeding, infection, positive margin, possible need for additional procedures in the future, recurrence, asymmetry, wound healing problems, scar, pain as well as the risk of anesthesia.? All questions were answered and patient has elected to proceed with lumpectomy.? Description of Procedure Patient was identified in the pre-operative area and brought to the OR suite. She underwent needle localization by IR prior to presenting to pre-op area. She was laid supine in the operating table and sequential compression devices were applied. General anesthesia was induced without difficulties. The right chest was prepped and draped in a sterile fashion. A small curvillenear incision was made around the previously placed wire, and dissection was carried down through the subcutaneous tissue into the breast tissue. A rim of normal breast tissue was excised along with the tumor as our lumpectomy specimen around the wire. Once the specimen was completely excised, it was oriented using surgical paint according to fixed income manager instructions. The specimen was placed in the faxitron and 2 radiographs were obtained and sent to Radiology for radiographic confirmation of calcifications, biopsy marker x2 and wire tip within the specimen. Once the radiographic confirmation was received, the wound was irrigated with saline and hemostasis was assured. Clips were placed in the lumpectomy cavity for future identification in mammograms and for radiation oncology. Dual plane dissection was performed to the medial aspect of the breast tissue, anteriorly and posterior to close the cavity. The breast tissue medially was then advanced laterally to close the lumpectomy cavity (dimensions were 4cm x 2cm x 3cm). Intramammary 3-0 vicryl sutures were used to bring the deep breast tissue together, followed by deep dermal layer with interrupted 3-0 vicryl. The skin was closed with 4-0 monocryl in a subcuticular fashion. Dermabond was applied followed by a surgical bra. Patient was awoken from anesthesia and taken to the recovery area in stable condition. All needles, instruments and sponge counts were correct as reported by the operating room staff. Patient tolerated the procedure well with no immediate complications. Millie Stallworth PA-C was required for positioning and retraction throughout the entire case. Estimated Blood Loss 1 Drains No Pathology Yes Complications No immediate complications Condition Stable Disposition PACU [facility] Billing Surgery - Charge Forward: Surgery Billing (CPT 10021, CPT 70983. Millie Stallworth has same codes with modifier )
--- NOTE | 2023-02-11 15:36 | SUR.PHASEI ---
1535: SIMPLE MASK REMOVED.
[2023-02-11] MEDS: traMADol HCL (*CRX) 50 MG TABLET PO (16:30)
== END 2023-02-11 17:01 | disposition home or self-care (01) ==
PROVIDERS: PCP Physician Assistant; Visit Provider Surgery
PROC: (CPT 19301; principal; 2023-02-11 12:00)
DX: D05.11 Intraductal carcinoma in situ of right breast (principal); N60.11 Diffuse cystic mastopathy of right breast; K21.9 Gastro-esophageal reflux disease without esophagitis; I10 Essential (primary) hypertension; Z87.891 Personal history of nicotine dependence; Z79.811 Long term (current) use of aromatase inhibitors
CPT/HCPCS: 19301; 14301; 19281; 76098; 88307; A9270; C1769; J0690; J1100; J2371; J2405; J2704; J3010; J7120; Q9968

== ENCOUNTER 2023-03-10 08:46 | Outpatient (CLI) | payer MEDICARE, SELFPAY ==
[2023-03-10 09:01] LABS: Basophils Absolute Auto 0.1 K/mm3 (0.0-0.1); Eosinophils Absolute Auto 0.3 K/mm3 (0-0.3); Eosinophils Percent Auto 3.1 % (0-4.4); Hematocrit 39.7 % (37.0-47.0); Hemoglobin 13.1 g/dL (12.0-15.0); Immature Granulocyte Absolute 0.02 K/mm3 (0.00-0.031); Immature Granulocyte Percent A 0.2 % (0-0.5); Lymphocytes Absolute Auto 1.34 K/mm3 (0.9-3.2); Lymphocytes Percent Auto 16.1 % (18.3-44.2); Mean Corpuscular Hemoglobin 31.7 pg (26-34); Mean Corpuscular Volume 96.1 fl (80-100); Mean Platelet Volume 8.8 fl (7.4-10.4); Monocytes Absolute Auto 0.8 K/mm3 (0.1-0.6); Monocytes Percent Auto 9.6 % (2.6-8.5); Neutrophils Absolute Auto 5.8 K/mm3 (1.3-6.7); Platelet Count Result 221 k/mm3 (150-375); Red Blood Count 4.13 M/mm3 (4.2-5.4); Red Cell Distribution Width 13.2 % (11.5-14.5); White Blood Count 8.3 K/mm3 (4.5-10.0)
[2023-03-10 09:05] LABS: Blood Urea Nitrogen 17 mg/dL (8-26); Carbon Dioxide 26 mmol/L (22-30); Chloride 104 mmol/L (98-109); Estimated Glomerular Filt Rate > 60; Glucose 108 mg/dL (70-105); Ionized Calcium (POC) 1.31 mmol/L (1.11-1.31); Potassium 3.7 mmol/L (3.5-4.9); Sodium 143 mmol/L (138-146)
[2023-03-10 12:42] LABS: Alanine Aminotransferase 21 U/L (6-35); Albumin Level 4.3 g/dL (3.5-5.1); Alkaline Phosphatase 116 U/L (38-126); Anion Gap 9 mmol/L (8-16); Aspartate Amino Transferase 32 U/L (14-36); Bilirubin,Total 0.4 mg/dL (0.2-1.3); Blood Urea Nitrogen 16 mg/dL (7-17); Calcium 9.9 mg/dL (8.4-10.2); Carbon Dioxide 28 mmol/L (22-30); Chloride 104 mmol/L (98-107); Estimated Glomerular Filt Rate > 60; Glucose 105 mg/dL (65-110); Potassium 3.7 mmol/L (3.4-5.0); Sodium 141 mmol/L (137-145)
== END 2023-03-10 08:47 | disposition home or self-care (01) ==
LOC: ANHLAB 08:48
PROVIDERS: PCP Physician Assistant; Visit Provider Internal Medicine Hematology & Oncology
DX: D05.11 Intraductal carcinoma in situ of right breast (principal)
CPT/HCPCS: 36415; 80047; 80053; 85025

== ENCOUNTER 2023-03-15 11:09 | Outpatient (CLI) | payer MEDICARE, SELFPAY ==
[2023-03-15 11:30] LABS: Basophils Absolute Auto 0.1 K/mm3 (0.0-0.1); Basophils Percent Auto 0.7 % (0.2-1.2); Eosinophils Absolute Auto 0.2 K/mm3 (0-0.3); Hematocrit 39.5 % (37.0-47.0); Hemoglobin 12.9 g/dL (12.0-15.0); Immature Granulocyte Absolute 0.03 K/mm3 (0.00-0.031); Immature Granulocyte Percent A 0.3 % (0-0.5); Lymphocytes Absolute Auto 1.17 K/mm3 (0.9-3.2); Lymphocytes Percent Auto 11.6 % (18.3-44.2); Mean Corpuscular HGB Conc 32.7 g/dl (32-36); Mean Corpuscular Hemoglobin 31.4 pg (26-34); Mean Corpuscular Volume 96.1 fl (80-100); Mean Platelet Volume 8.9 fl (7.4-10.4); Monocytes Absolute Auto 0.8 K/mm3 (0.1-0.6); Neutrophils Absolute Auto 7.8 K/mm3 (1.3-6.7); Neutrophils Percent Auto 77.4 % (45.5-73.1); Platelet Count Result 210 k/mm3 (150-375); Red Blood Count 4.11 M/mm3 (4.2-5.4); Red Cell Distribution Width 13.2 % (11.5-14.5); White Blood Count 10.1 K/mm3 (4.5-10.0)
[2023-03-15 11:41] LABS: Alanine Aminotransferase 21 U/L (6-35); Albumin Level 4.2 g/dL (3.5-5.1); Alkaline Phosphatase 119 U/L (38-126); Anion Gap 7 mmol/L (8-16); Aspartate Amino Transferase 34 U/L (14-36); Bilirubin,Total 0.6 mg/dL (0.2-1.3); Blood Urea Nitrogen 15 mg/dL (7-17); Calcium 9.9 mg/dL (8.4-10.2); Carbon Dioxide 28 mmol/L (22-30); Chloride 105 mmol/L (98-107); Cholesterol 225 mg/dL (0-200); Estimated Glomerular Filt Rate > 60; Glucose 104 mg/dL (65-110); HDL Direct 86 mg/dL; Potassium 4.2 mmol/L (3.4-5.0); Sodium 140 mmol/L (137-145); Triglycerides 127 mg/dL (<150)
[2023-03-15 11:51] LABS: LDL Cholesterol Direct 94 mg/dL
[2023-03-15 12:05] LABS: Vitamin D 25 Hydroxy 45.3 ng/mL
[2023-03-15 12:51] LABS: Folic Acid > 20.0 ng/mL (2.76->20)
== END 2023-03-15 11:10 | disposition home or self-care (01) ==
PROVIDERS: PCP Physician Assistant; Visit Provider Physician Assistant
DX: E78.5 Hyperlipidemia, unspecified (principal); R53.83 Other fatigue; E55.9 Vitamin D deficiency, unspecified
CPT/HCPCS: 36415; 80053; 80061; 82306; 82607; 82746; 84443; 85025

== ENCOUNTER 2023-03-17 16:44 | Outpatient (CLI) | payer MEDICARE, SELFPAY ==
[2023-03-17 18:03] LABS: Appearance Urine Turbid (Clear); Bacteria Urine 4+ /hpf; Bilirubin Urine Negative (Negative); Blood Urine 2+ (Negative); Color Urine Dark Yellow (Yellow); Glucose Urine UA Negative (Negative); Ketones Urine Negative (Negative); Leukocyte Esterase Ur 3+ LEU/UL (NEGATIVE); Nitrate Urine Negative (Negative); Non Pathogenic Casts 0-2; Protein Urine 1+ mg/dL (Negative); Specific Grav Ur 1.014 (1.001-1.035); Squamous Epithelial Cell Urine Occasional /hpf (Few); Urobilinogen Urine 0.2 mg/dL (<2.0); WBC Urine >100 /hpf (0-3); pH Urine 5.5 (5.0-9.0)
[2023-03-17 18:25] LABS: Add Urine Microscopic? YES
== END 2023-03-17 16:45 | disposition home or self-care (01) ==
LOC: ANHLAB 16:46
PROVIDERS: PCP Physician Assistant; Visit Provider Physician Assistant
DX: R30.0 Dysuria (principal)
CPT/HCPCS: 81001; 87077; 87086; 87186

== ENCOUNTER 2023-03-29 15:42 | Outpatient (CLI) | payer MEDICARE, SELFPAY ==
[2023-03-29 16:54] LABS: Appearance Urine Clear (Clear); Bacteria Urine None Seen /hpf; Bilirubin Urine Negative (Negative); Blood Urine Negative (Negative); Color Urine Yellow (Yellow); Glucose Urine UA Negative (Negative); Ketones Urine Negative (Negative); Leukocyte Esterase Ur Trace LEU/UL (NEGATIVE); Nitrate Urine Negative (Negative); Non Pathogenic Casts 0-2; Protein Urine Negative (Negative); RBC Urine 0-2 /hpf (0-2); Specific Grav Ur 1.014 (1.001-1.035); Squamous Epithelial Cell Urine None seen /hpf (Few); Urobilinogen Urine 0.2 mg/dL (<2.0); WBC Urine 0-5 /hpf (0-3)
[2023-03-29 16:57] LABS: Add Urine Microscopic? YES
== END 2023-03-29 15:43 | disposition home or self-care (01) ==
PROVIDERS: PCP Physician Assistant; Visit Provider Physician Assistant
DX: R30.0 Dysuria (principal)
CPT/HCPCS: 81001; 87086

== ENCOUNTER 2023-06-24 16:01 | Outpatient (CLI) | payer MEDICARE, SELFPAY ==
[2023-06-24 18:18] LABS: Appearance Urine Clear (Clear); Bilirubin Urine Negative (Negative); Blood Urine Negative (Negative); Color Urine Dark Yellow (Yellow); Glucose Urine UA Negative (Negative); Ketones Urine Negative (Negative); Leukocyte Esterase Ur Negative LEU/UL (Negative); Nitrate Urine Negative (Negative); Protein Urine Negative (Negative); Specific Grav Ur 1.012 (1.001-1.035); Urobilinogen Urine 0.2 mg/dL (<2.0)
[2023-06-24 18:24] LABS: Add Urine Microscopic? NO
== END 2023-06-24 16:02 | disposition home or self-care (01) ==
PROVIDERS: PCP Physician Assistant; Visit Provider Obstetrics & Gynecology
DX: R35.0 Frequency of micturition (principal); R53.83 Other fatigue
CPT/HCPCS: 81003; 87086; 87088

== ENCOUNTER 2023-07-07 11:35 | Outpatient (CLI) | payer MEDICARE, SELFPAY ==
[2023-07-07 11:48] LABS: Hematocrit 39.3 % (37.0-47.0); Hemoglobin 13.1 g/dL (12.0-15.0); Immature Granulocyte Percent A 0.4 % (0-0.5); Lymphocytes Percent Auto 20.5 % (18.3-44.2); Mean Corpuscular HGB Conc 33.3 g/dl (32-36); Mean Corpuscular Hemoglobin 32.5 pg (26-34); Mean Corpuscular Volume 97.5 fl (80-100); Mean Platelet Volume 9.4 fl (7.4-10.4); Neutrophils Percent Auto 64.9 % (45.5-73.1); Platelet Count Result 207 k/mm3 (150-375); Red Blood Count 4.03 M/mm3 (4.2-5.4); Red Cell Distribution Width 12.9 % (11.5-14.5); White Blood Count 6.8 K/mm3 (4.5-10.0)
[2023-07-07 11:49] LABS: Basophils Absolute Auto 0.1 K/mm3 (0.0-0.1); Basophils Percent Auto 1.2 % (0.2-1.2); Eosinophils Absolute Auto 0.1 K/mm3 (0-0.3); Immature Granulocyte Absolute 0.03 K/mm3 (0.00-0.031); Monocytes Absolute Auto 0.8 K/mm3 (0.1-0.6); Neutrophils Absolute Auto 4.4 K/mm3 (1.3-6.7)
[2023-07-07 11:51] LABS: Blood Urea Nitrogen 17 mg/dL (8-26); Carbon Dioxide 25 mmol/L (22-30); Chloride 105 mmol/L (98-109); Estimated Glomerular Filt Rate 59; Glucose 94 mg/dL (70-105); Ionized Calcium (POC) 1.32 mmol/L (1.11-1.31); Potassium 4.4 mmol/L (3.5-4.9); Sodium 139 mmol/L (138-146)
[2023-07-07 16:40] LABS: Alanine Aminotransferase 19 U/L (6-35); Albumin Level 4.5 g/dL (3.5-5.1); Alkaline Phosphatase 93 U/L (38-126); Anion Gap 6 mmol/L (4-12); Aspartate Amino Transferase 30 U/L (14-36); Bilirubin,Total 0.5 mg/dL (0.2-1.3); Blood Urea Nitrogen 18 mg/dL (7-17); Calcium 10.4 mg/dL (8.4-10.2); Carbon Dioxide 25 mmol/L (22-30); Chloride 108 mmol/L (98-107); Estimated Glomerular Filt Rate > 60; Glucose 91 mg/dL (65-110); Potassium 4.5 mmol/L (3.4-5.0); Sodium 139 mmol/L (137-145)
== END 2023-07-07 11:36 | disposition home or self-care (01) ==
LOC: ANHLAB 11:36
PROVIDERS: PCP Physician Assistant; Visit Provider Internal Medicine Hematology & Oncology
DX: D05.11 Intraductal carcinoma in situ of right breast (principal)
CPT/HCPCS: 36415; 80047; 80053; 85025

== ENCOUNTER 2023-08-06 10:51 | Outpatient (CLI) | payer MEDICARE, SELFPAY ==
--- NOTE | ~2023-08-06 | MM_ITS ---
EXAMINATION: MM diagnostic deangelo BI w josephine HISTORY: History of DCIS of the right breast status post biopsy. TECHNIQUE: Additional 3-D tomosynthesis images of the breasts were performed and synthetic 2-D images were generated. CAD analysis was submitted and interpreted. COMPARISON: Comparison to multiple prior studies sequentially, with oldest reviewed study dated 07/23. BREAST PARENCHYMAL COMPOSITION: Not dense: There are scattered areas of fibroglandular density. FINDINGS: There is architectural distortion and surgical changes in the upper outer quadrant of the r ight breast, likely benign postoperative findings. The left breast is stable without evidence for mal ignancy. There are no suspicious calcifications. IMPRESSION: 1. Probable benign postoperative changes upper outer quadrant of the right breast. 2. Recommend 6 month follow-up diagnostic right mammogram BI-RADS category 3, probably benign findings. Reviewed, dictated and finalized at location B. IMPRESSION: 1. Probable benign postoperative changes upper outer quadrant of the right [address]. 2. Recommend 6 month follow-up diagnostic right mammogram BI-RADS category 3, probably benign findings.
== END 2023-08-06 10:52 | disposition home or self-care (01) ==
LOC: ANHIMG 10:52
PROVIDERS: PCP Physician Assistant; Visit Provider Surgery
DX: D05.11 Intraductal carcinoma in situ of right breast (principal)
CPT/HCPCS: 77062; 77066; G0279

== ENCOUNTER 2023-08-18 13:00 | Emergency (ER) | payer MEDICARE, SELFPAY ==
--- NOTE | ~2023-08-18 | XR_ITS ---
XR shoulder LT min 2V 08/18/2023 13:52 Indication: Left shoulder pain after recent fall Procedure: 4 views left shoulder Comparison: No prior studies for comparison. Findings: There is a comminuted displaced fracture of the greater tuberosity. Moderate osteoarthritis of the glenohumeral joint. Acromioclavicular joint intact. Surrounding osseous structures and soft t issues are otherwise unremarkable. Impression: 1: Comminuted displaced left humeral greater tuberosity fracture. Reviewed, dictated and finalized at location B. Impression: 1: Comminuted displaced left humeral greater tuberosity fracture.
[2023-08-18 13:10] VITALS: BP 166/99; PULSE 84; RESP 20; TEMP 36.6; O2SAT 99
--- NOTE | 2023-08-18 15:38 | ED.UPPEXIN ---
HPI - Extremity Injury (Upper) General Chief Complaint: Extremity Injury, Upper Stated Complaint: fall, left shoulder pain Time Seen by Provider: 08/18/23 14:37 History of Present Illness HPI narrative: 87-year-old female presents to the emergency room for evaluation of left shoulder injury. Patient states a week ago she experienced a mechanical ground level fall that she was getting ready to [place] [facility]. Patient unable to describe mechanics of the injury. Complains of shoulder pain that is worse with movement. Related Data Home Medications Medication Instructions Recorded Confirmed cgqlbn-zlrftksf-tbqfrso 2 cap PO TID 11/01/19 08/18/23 25,000-79,000-105,000 unit capsule,delayed rel (Zenpep) aluminum hydrox-magnesium carb 95 15 ml PO .PRN 05/06/21 08/18/23 mg-358 mg/15 mL oral suspension (Gaviscon) famotidine 20 mg tablet See Rx Instructions .Route .COMPLEX 05/06/21 08/18/23 Super C 1 tab-cap PO DAILY 05/13/21 08/18/23 vit C,E,zinc,copper-zadrj3s 250 1 cap PO DAILY 05/13/21 08/18/23 mg-lutein 5 mg-zeaxanthin 1 mg capsule (Ocuvite Adult 50 Plus) artificial 1 drp EACH EYE ONCE PRN Dry Eye(S) 12/01/21 08/18/23 tears(casvnxl-wafcytuj-neepxes) 0.1 %-0.3 %-0.2 % eye drops (GenTeal Tears Moderate) peg 400-propylene glycol (PF) 0.4 1 drp EACH EYE DAILY PRN Dry Eyes 12/01/21 08/18/23 %-0.3 % eye drops in a dropperette (Systane (PF)) calcium carb and lactate 200 2 tablet PO DAILY 02/11/22 08/18/23 mg-vitamin D3 6.25 mcg (250 unit) tablet anastrozole 1 mg tablet 1 mg PO DAILY 07/07/22 08/18/23 Cbd 15 mg PRN PAIN 02/08/23 08/18/23 fluticasone propionate 50 1 spray intranasal BID PRN 02/08/23 08/18/23 mcg/actuation nasal Congestion spray,suspension (Flonase Allergy Relief) loratadine 10 mg tablet (Claritin) 10 mg PO DAILY 02/08/23 08/18/23 Allergies Allergy/AdvReac Type Severity Reaction Status Date / Time amoxicillin Allergy Mild Nausea AND Verified 08/18/23 11:46 ITCHING codeine Allergy Unknown N/V Verified 08/18/23 11:46 esomeprazole Allergy Unknown Itching Verified 08/18/23 11:46 pantoprazole Allergy Unknown Itching Verified 08/18/23 11:46 rabeprazole Allergy Unknown Itching Verified 08/18/23 11:46 Review of Systems Review of Systems: ROS unremarkable except for noted in HPI PMFSH Past Medical History Medical History Acid reflux Acute pain of left shoulder Anemia Arthritis Benign essential tremor Bruises easily Ductal carcinoma in situ of right breast Hypertension Restless legs syndrome Urinary incontinence Surgical History Surgical History H/O right breast biopsy (02/19/23) DUCTAL CARCINOMA IN SITU OF RIGHT BREAST History of cholecystectomy History of colonoscopy History of ERCP History of esophagogastroduodenoscopy (EGD) History of hemorrhoidectomy History of hip replacement History of repair of hiatal hernia Hx of cataract surgery Family History Family History Sibling Family history of diabetes mellitus in first degree relative Family history of lymphoma Family history of malignant neoplasm of kidney Mother , 1 month after childbirth in 1936 No problems noted. Father Malignant brain tumor Sibling Seizures COPD (chronic obstructive pulmonary disease) Lymphoma Sibling Diabetes mellitus Hypertension Heart disease Bone cancer Brain tumor Social History Social History Smoking packs per day: 0.5 Smoking cigarettes per day: 10.0 Years smoked: 49 Smoking pack-years: 24.50 Smoking status: Former smoker Tobacco type: cigarettes Second hand tobacco smoke exposure: No Smoking end date: 03/01/00 Alcohol intake: never Substance use: current
== END 2023-08-18 16:10 | disposition home or self-care (01) ==
PROVIDERS: Emergency Provider Nurse Practitioner Family; PCP Physician Assistant
DX: S42.252A Displaced fracture of greater tuberosity of left humerus, initial encounter for closed fracture (principal); I10 Essential (primary) hypertension; G25.81 Restless legs syndrome; K21.9 Gastro-esophageal reflux disease without esophagitis; M19.90 Unspecified osteoarthritis, unspecified site; Z96.649 Presence of unspecified artificial hip joint; Z85.3 Personal history of malignant neoplasm of breast; Z86.2 Personal history of diseases of the blood and blood-forming organs and certain disorders involving the immune mechanism; Z87.891 Personal history of nicotine dependence; Z90.49 Acquired absence of other specified parts of digestive tract; Z98.49 Cataract extraction status, unspecified eye; Z79.899 Other long term (current) drug therapy; W19.XXXA Unspecified fall, initial encounter
CPT/HCPCS: 73030; 99284; A4565

== ENCOUNTER 2023-08-24 13:19 | Outpatient (CLI) | payer MEDICARE, SELFPAY ==
--- NOTE | ~2023-08-24 | XR_ITS ---
XR shoulder LT min 2V Ordering provider: Hernan Wallace MD History: . S42.302A - Unspecified fracture of shaft of humerus, left... . Comparison: August 18, 2023 FINDINGS: BONES: Fracture in the greater tuberosity of the left humerus unchanged from previous examination. JOINT SPACES: The acromioclavicular joint is normal. Osteoarthritic changes of the glenohumeral joint . SOFT TISSUES: Normal. IMPRESSION: Fracture in the greater tuberosity of the left humerus with no change from previous examination. Reviewed, dictated and finalized at location A. IMPRESSION: Fracture in the greater tuberosity of the left humerus with no change from prev ious examination.
== END 2023-08-24 13:20 ==
LOC: MICIMG 13:21
PROVIDERS: PCP Physician Assistant; Visit Provider Orthopaedic Surgery
DX: S42.252A Displaced fracture of greater tuberosity of left humerus, initial encounter for closed fracture (principal); X58.XXXA Exposure to other specified factors, initial encounter
CPT/HCPCS: 73030

== ENCOUNTER 2023-08-31 09:31 | Outpatient (CLI) | payer MEDICARE, SELFPAY ==
--- NOTE | ~2023-08-31 | MR_ITS ---
EXAMINATION: MR brain/brain stem wo con DATE: 08/31/2023 10:17 INDICATION: Personal history of other (healed) digital injury. Tremors and unsteady gait. TECHNIQUE: Magnetic resonance imaging (MRI) of the brain and brainstem was performed without intraven ous contrast. Sequences included sagittal and axial T1-weighted SE, axial diffusion-weighted FS SE, a xial T2*-weighted GRE, axial T2-weighted FLAIR, and axial T2-weighted FSE. Apparent diffusion coeffic ient (ADC) maps were created. COMPARISON: None FINDINGS: There are no areas of restricted diffusion to suggest acute infarction. No intracranial hemorrhage or abnormal intracranial mass lesion. There are scattered areas of nonspecific increased T2-weighted si gnal intensity in the cerebral white matter, predominantly involving the deep and periventricular whi te matter which is within normal limits for age and likely sequela of chronic small vessel ischemic d isease. There are no intraparenchymal signal abnormalities seen on the other pulse sequences. The saul tricles are symmetric and normal in size. There are no abnormal extra-axial fluid collections. Flow v oids are seen in the cerebral arteries on the T2-weighted sequences consistent with their expected pa tency. Changes of bilateral intraocular lens replacement. Visualized orbits and soft tissues are unre markable. IMPRESSION: 1. No acute intracranial process. 2. Scattered periventricular predominant nonspecific white matter T2 hyperintensity which is within n ormal limits for age and likely sequela of chronic small vessel ischemic disease. Reviewed, dictated and finalized at location B. IMPRESSION: 1. No acute intracranial process. 2. Scattered periventricular predominant nonspecific white matter T2 hyperinten sity which is within normal limits for age and likely sequela of chronic small vessel ischemic disease.
== END 2023-08-31 09:32 ==
PROVIDERS: PCP Orthopaedic Surgery; Visit Provider Psychiatry & Neurology Neurology
DX: Z87.828 Personal history of other (healed) physical injury and trauma (principal)
CPT/HCPCS: 70551

== ENCOUNTER 2023-08-31 12:58 | Outpatient (CLI) | payer MEDICARE, SELFPAY ==
--- NOTE | 2023-08-31 13:00 | ECG_ITS ---
Test Date: 2023-08-31 13:27:25 Measurements Intervals [place] Rate: 77 P: 10 NM: 190 QRS: -26 QRSD: 94 T: 9 QT: 356 QTc: 405 Interpretive Statements SINUS RHYTHM LOW QRS VOLTAGE IN PRECORDIAL LEADS LEFT VENTRICULAR HYPERTROPHY POOR R WAVE PROGRESSION BASELINE ARTIFACT- I, II, III BORDERLINE ECG No previous ECG available for comparison Electronically Signed On 08-31-2023 16:46:15 CDT by John Richards D.O.
== END 2023-08-31 12:59 | disposition home or self-care (01) ==
LOC: ANHSURGERY 13:12
PROVIDERS: PCP Physician Assistant; Visit Provider Orthopaedic Surgery
DX: Z01.818 Encounter for other preprocedural examination (principal); I10 Essential (primary) hypertension; I51.7 Cardiomegaly
CPT/HCPCS: 93005

== ENCOUNTER 2023-09-03 00:25 | Day surgery (SDC) | payer MEDICARE, SELFPAY ==
--- NOTE | 2023-08-30 14:48 | PC.NURSE ---
Report to the Outpatient Waiting Room, entrance under the green pavilion located off [facility], at time __6:00 AM on date __09/03/23 . Planned Procedure Time: _7:30 AM . Time changes happen often and if your time is changed the preop area will call you the afternoon before. - You and your visitor will be asked to self-screen and do not enter if you have any COVID symptoms. - A mask is optional within the hospital at this time. Patients may have clear liquids (water, carbonated beverages, clear teas, apple juice) until 3 hours prior to surgery ( 4:30 AM)with a maximum of 20 ounces. - No food from midnight until time of surgery - Infants may have breast milk until 4 hours before surgery, infant formula 6 hours prior to surgery. - Children will be allowed to drink immediately following surgery. If applicable, please bring a bottle or sippy cup to assist with drinking. Juice, water, soda, and popsicles are readily available. For infants on formula, please bring formula the day of surgery. Pacifiers are allowed. Take the following medications with a SIP of water the morning of surgery: _AMLODIPINE,EYE DROPS,GABAPENTIN, DO NOT STOP ANY OF YOUR OTHER PRESCRIPTION MEDICATIONS PRIOR TO SURGERY ?EXCEPT THE FOLLOWING Medications to discontinue per physician ___ALL VITAMINS AND SUPPLEMENTS 3 DAYS PRE OP .LAST DOSE 08/30/23 Please no make-up, nail maori, hairspray, perfume, deodorant, or body powder the day of surgery. No jewelry (including any body piercings) or valuables the day of surgery, leave them at home. Please take a shower or bath the night before, or the morning of, surgery with an antibacterial soap. Wear comfortable, loose fitting clothing. Children are encouraged to wear pajamas. - Jewelry must be removed prior to entering the operating room. Rings and piercings that are not removed may be cut off. - The hospital will not accept responsibility for valuables. - Please leave all valuables, including medications, at home the day of surgery. If you are going home after surgery, a licensed hog driver must drive you home. - NO public transportation without another adult if you receive anesthesia. - We recommend that an adult stay with you for 24 hours following discharge. - We also recommend that you do not drive, make important decision, drink alcoholic beverages, or take any drugs that were not prescribed by your health care provider for at least 24 hours after your discharge time. For Pediatric surgeries, we recommend two adults accompany the child home. Follow any additional instructions given to you from your surgeon. If you or anyone in your household have experienced Covid symptoms in the past week, please notify your surgeon or the nurse liaison at the phone number below for possible testing. Telephone instructions given to __PATIENT and asked if any additional questions and then verbalized understanding. Patient advised to call surgeon office or pre surgery nurse liaison [phone] if any additional questions.
[2023-08-30 14:57] VITALS: BMI 25.2
[2023-09-03] VITALS (9 sets, daily range): BP systolic 123–163; BP diastolic 48–101; PULSE 66–126; RESP 12–16; TEMP 36.3–36.4; O2SAT 96–100
[2023-09-03] MEDS: LACTATED RINGERS 1,000 ML 30 ML IV CONT (06:45)
[2023-09-03] MEDS: KETOROLAC 15 MG/ML VIAL (*BKC) IV PUSH (07:00)
[2023-09-03] MEDS: ACETAMINOPHEN 500 MG TABLET 1000 MG PO (07:00)
--- NOTE | 2023-09-03 07:06 | WPDHPUPDATE1 ---
History and Physical Update Update Date/Time: 09/03/23 07:06 History and Physical has been reviewed, including an updated exam of the patient. There are NO changes in the patient's condition. Risks, benefits, and alternatives have been discussed and questions answered. Patient agrees to proceed with procedure.
--- NOTE | 2023-09-03 07:17 | WPDANESEPPF ---
Anes - Initial Pre Proc Eval Procedure: Operation Date: 09/03/23 07:30 Proposed Procedures p Open Reduction Internal Fixation of Left Greater Tuberosity Fracture - Hernan Wallace MD Date/Time: 09/03/23 07:17 Surgeon: Hernan Wallace MD Pre Op Diagnosis: comminuted displace left Humerus Patient Data Age: 87 Gender: F Height: 1.5 m Weight: 57.8 kg Last Vital Signs Temp 97.6 F 09/03/23 06:45 Pulse 76 09/03/23 06:45 Resp 16 09/03/23 06:45 BP 159/51 H 09/03/23 06:45 Pulse Ox 98 09/03/23 06:45 O2 Del Method Room Air 09/03/23 06:45 Allergies Allergy/AdvReac Type Severity Reaction Status Date / Time amoxicillin Allergy Mild Nausea AND Verified 09/03/23 07:09 ITCHING codeine Allergy Unknown N/V Verified 09/03/23 07:09 esomeprazole Allergy Unknown Itching Verified 09/03/23 07:09 pantoprazole Allergy Unknown Itching Verified 09/03/23 07:09 rabeprazole Allergy Unknown Itching Verified 09/03/23 07:09 Home Medications Medication Instructions Recorded Confirmed Type fbkhvm-dfnutttp-aoefqxc 2 cap PO TID 11/01/19 08/30/23 History 25,000-79,000-105,000 unit capsule,delayed rel (Zenpep) aluminum hydrox-magnesium carb 95 15 ml PO PRN PRN Heartburn 05/06/21 08/30/23 History mg-358 mg/15 mL oral suspension (Gaviscon) famotidine 20 mg tablet See Rx Instructions .Route .COMPLEX 05/06/21 08/30/23 History Super C 1 tab-cap PO DAILY 05/13/21 08/30/23 History vit C,E,zinc,copper-xcvlt0i 250 1 cap PO DAILY 05/13/21 08/30/23 History mg-lutein 5 mg-zeaxanthin 1 mg capsule (Ocuvite Adult 50 Plus) artificial 1 drp EACH EYE ONCE PRN Dry Eye(S) 12/01/21 08/30/23 History tears(jjqbrjj-ctewarkd-hhbumdn) 0.1 %-0.3 %-0.2 % eye drops (GenTeal Tears Moderate) peg 400-propylene glycol (PF) 0.4 1 drp EACH EYE DAILY PRN Dry Eyes 12/01/21 08/30/23 History %-0.3 % eye drops in a dropperette (Systane (PF)) anastrozole 1 mg tablet 1 mg PO DAILY 07/07/22 08/30/23 History Cbd 15 mg PO PRN PAIN 02/08/23 08/30/23 History fluticasone propionate 50 1 spray intranasal BID PRN 02/08/23 08/30/23 History mcg/actuation nasal Congestion spray,suspension (Flonase Allergy Relief) loratadine 10 mg tablet (Claritin) 10 mg PO DAILY 02/08/23 08/30/23 History clobetasol 0.05 % topical ointment 1 applic topical BID 4 weeks #30 04/02/23 08/30/23 Rx grams ondansetron HCl 4 mg tablet 4 - 8 mg PO Q8H PRN nausea and 06/10/23 08/30/23 Rx vomiting #30 tabs amlodipine 5 mg tablet 5 mg PO DAILY #90 tabs 08/05/23 09/03/23 Rx lorazepam 1 mg tablet (Ativan) 1 mg PO ONCE PRN For MRI #1 tablet 08/18/23 08/30/23 Rx calcium carbonate 600 mg-vitamin 1 tablet PO DAILY 08/30/23 08/30/23 History D3 10 mcg (400 unit) tablet (Calcium 600 + D(3)) gabapentin 300 mg capsule 300 mg PO BID TREMORS 08/30/23 09/03/23 History trospium 20 mg tablet 20 mg PO DAILY 08/30/23 08/30/23 History Patient hx anesthesia problems: none Family hx anesthesia problems: none Results Review: All pre-operative results and documents have been reviewed as part of the pre-operative evaluation. FORMERLY [facility], [facility] Past Medical History Medical History Acid reflux Acute pain of left shoulder Anemia Arthritis Benign essential tremor Bruises easily Ductal carcinoma in situ of right breast Hypertension Restless legs syndrome Urinary incontinence Surgical History Surgical History H/O right breast biopsy (02/19/23) DUCTAL CARCINOMA IN SITU OF RIGHT BREAST History of cholecystectomy History of colonoscopy History of ERCP History of esophagogastroduodenoscopy (EGD) History of hemorrhoidectomy History of hip replacement History of repair of hiatal hernia Hx of cataract surgery Family History Family History Sibling Family history of diabetes mellitus in first degree
[2023-09-03] MEDS: ceFAZolin 2 GM/D5W 50 ML 2 GM/50 ML BAG IVPB (07:41)
[2023-09-03] MEDS: BUPivacaine HCL 0.5% 10 ML AMP 20 ML INFILTRATE (08:15)
--- NOTE | 2023-09-03 09:21 | P.OP_ITS ---
Procedure Note - Detailed Date of Procedure 09/03/23 Pre-op Diagnosis Comminuted displaced left proximal humerus greater tuberosity fracture. Post-op Diagnosis Same Procedure Performed ORIF left shoulder greater tuberosity fracture. Surgeon Hernan Wallace MD Anesthesia General Findings Comminunted fracture. Vertical component relatively posterior. Cuff otherwise intact. Reduction and fixation with multiple sutures. Description of Procedure Preoperative antibiotics were given. he patient was bought brought to the operating room. A general anesthetic was administered. The patient was carefully positioned in the beach chair position. The head and neck were carefully positioned. The non operative extremity was also carefully positioned. The shoulder was prepped and draped in the usual sterile fashion. A transverse incision was centered at the anterolateral acromion. The deltoid split was created 4 cm from the acromion. The fracture was identified and cleared of debris. The greater tuberosity fragment was sutured for control and manipulation back to an anatomic position. #5 Ethibond was used to create a suture from the tuberosity to the anterior bone adjacent to the biceps groove. Two additional tunnels were created in the shaft for fixation with fwnzev-az-tpcwk suture through the fractured tuberosity at the rotator cuff junction. A secure and nearly anatomic reduction was obtained. The wound was copiously irrigated. The deltoid split was repaired with multiple interrupted 1. Vicryl sutures. The subcutaneous wounds were closed with 3-0 Monocryl subcuticular suture 4-0 running Monocryl and steri strips. There were no com plications. A shoulder immobilzer was applied and the patient brought to the recovery room. Estimated Blood Loss 20 Pathology None sent Complications No immediate complications Condition Stable Disposition PACU [facility] Billing Surgery - Charge Forward: Surgery Billing
[2023-09-03] MEDS: fentaNYL CITRATE INJ (*CRX) 100 MCG/2 ML VIAL 25 MCG IV PUSH ×2 (10:00→10:05)
[2023-09-03] MEDS: oxyCODONE HCL (*CRX) 2.5 MG TAB IR PO (11:14)
== END 2023-09-03 12:30 | disposition home or self-care (01) ==
PROVIDERS: PCP Physician Assistant; Visit Provider Orthopaedic Surgery
PROC: (CPT 23630; principal; 2023-09-03 07:30)
DX: S42.252A Displaced fracture of greater tuberosity of left humerus, initial encounter for closed fracture (principal); W19.XXXA Unspecified fall, initial encounter; I10 Essential (primary) hypertension; Z85.3 Personal history of malignant neoplasm of breast; Z87.891 Personal history of nicotine dependence
CPT/HCPCS: 23630; 93005; A9270; J0690; J1100; J1885; J2405; J2704; J3010; J7120

== ENCOUNTER 2023-11-03 17:00 | Emergency (ER) | payer MEDICARE, SELFPAY ==
[2023-11-03 17:12] VITALS: BP 140/72; PULSE 70; RESP 20; TEMP 36.3; O2SAT 99
[2023-11-03 17:15] VITALS: BP 140/72; PULSE 70; RESP 20; TEMP 36.3; O2SAT 99
[2023-11-03 17:29] LABS: EDINFLUASCREEN Negative; EDINFLUBSCREEN Negative
--- NOTE | 2023-11-03 17:31 | ED.URI ---
HPI - URI/Sore Throat General Chief Complaint: Upper Respiratory Infection Stated Complaint: Sinus/Bodyaches Time Seen by Provider: 11/03/23 17:31 Source: patient, RN notes reviewed and old records reviewed Mode of arrival: ambulatory Limitations: no limitations History of Present Illness HPI Narrative: Patient presents with complaints of 10-14 days of sinus pain and congestion. She reports that throughout the course of her illness, she was prescribed a Z-Sukhi. She took this as prescribed. Initially says that she felt better, but now says she feels worse than she had. She states that yesterday she thought she was getting up better, but today felt so bad that she slept most of the day. She is unsure of fever status, reports that she keeps getting hot and cold. Says that she has been sleeping poorly secondary to symptoms. She is not in any acute distress at this time. Related Data Home Medications Medication Instructions Recorded Confirmed csklkz-qvxejifq-xzsnpfu 2 cap PO TID 11/01/19 11/03/23 25,000-79,000-105,000 unit capsule,delayed rel (Zenpep) aluminum hydrox-magnesium carb 95 15 ml PO PRN PRN Heartburn 05/06/21 11/03/23 mg-358 mg/15 mL oral suspension (Gaviscon) famotidine 20 mg tablet See Rx Instructions .Route .COMPLEX 05/06/21 11/03/23 Super C 1 tab-cap PO DAILY 05/13/21 11/03/23 vit C,E,zinc,copper-jilbs6f 250 1 cap PO DAILY 05/13/21 11/03/23 mg-lutein 5 mg-zeaxanthin 1 mg capsule (Ocuvite Adult 50 Plus) artificial 1 drp EACH EYE ONCE PRN Dry Eye(S) 12/01/21 11/03/23 tears(lafetcj-ivaizrjt-tricill) 0.1 %-0.3 %-0.2 % eye drops (GenTeal Tears Moderate) peg 400-propylene glycol (PF) 0.4 1 drp EACH EYE DAILY PRN Dry Eyes 12/01/21 11/03/23 %-0.3 % eye drops in a dropperette (Systane (PF)) anastrozole 1 mg tablet 1 mg PO DAILY 07/07/22 11/03/23 Cbd 15 mg PO PRN PAIN 02/08/23 11/03/23 fluticasone propionate 50 1 spray intranasal BID PRN 02/08/23 11/03/23 mcg/actuation nasal Congestion spray,suspension (Flonase Allergy Relief) loratadine 10 mg tablet (Claritin) 10 mg PO DAILY 02/08/23 11/03/23 calcium carbonate 600 mg-vitamin 1 tablet PO DAILY 08/30/23 11/03/23 D3 10 mcg (400 unit) tablet (Calcium 600 + D(3)) trospium 20 mg tablet 20 mg PO DAILY 08/30/23 11/03/23 Allergies Allergy/AdvReac Type Severity Reaction Status Date / Time amoxicillin Allergy Mild Nausea AND Verified 11/03/23 17:06 ITCHING codeine Allergy Unknown N/V Verified 11/03/23 17:06 esomeprazole Allergy Unknown Itching Verified 11/03/23 17:06 pantoprazole Allergy Unknown Itching Verified 11/03/23 17:06 rabeprazole Allergy Unknown Itching Verified 11/03/23 17:06 Review of Systems Review of Systems: All systems reviewed & are unremarkable except as noted in HPI and below Constitutional: Constitutional: Reports no additional constitutional complaints, Reports chills and Reports lethargy ENT: Reports system reviewed and no additional complaints, except as documented, Reports as per HPI, Reports nasal congestion, Reports nasal discharge, Reports sinus pain and Reports sinus pressure Cardiovascular: Cardiovascular: Reports as per HPI and Reports no additional cardiovascular complaints Respiratory: Respiratory: Reports as per HPI and Reports no additional respiratory complaints Gastrointestinal: Gastrointestinal: Reports no additional gastrointestinal complaints Musculoskeletal: Musculoskeletal: Reports myalgias PMFSH Past Medical History Medical History Acid reflux Acute pain of left shoulder Anemia Arthritis Benign essential tremor Bruises easily Ductal carcinoma in situ of right breast Hypertension Restless legs syndrome Urinary incontinence Surgical History Surgical History H/O right breast biopsy (02/19/23) DUCTAL CARCINOMA IN SITU OF RIGHT BREAST History of cholecystectomy Histo
== END 2023-11-03 17:45 | disposition home or self-care (01) ==
PROVIDERS: Emergency Provider Nurse Practitioner Family; PCP Internal Medicine
DX: J01.00 Acute maxillary sinusitis, unspecified (principal); Z20.822 Contact with and (suspected) exposure to COVID-19; Z87.891 Personal history of nicotine dependence; K21.9 Gastro-esophageal reflux disease without esophagitis; M19.90 Unspecified osteoarthritis, unspecified site; I10 Essential (primary) hypertension; G25.81 Restless legs syndrome
CPT/HCPCS: 87426; 87804; 99213; G0463

== ENCOUNTER 2023-11-24 12:40 | Outpatient (CLI) | payer MEDICARE, SELFPAY ==
--- NOTE | ~2023-11-24 | XR_ITS ---
XR shoulder LT min 2V Ordering provider: Hernan Wallace MD History: . Z98.890 - Other specified postprocedural states . Comparison: October 11, 2023 FINDINGS: BONES: Fracture of the greater tuberosity unchanged. Opacification in the area of the supraspinatous tendon possible. JOINT SPACES: The acromioclavicular joint is normal. The glenohumeral joint shows osteoarthritic cuellar ges. SOFT TISSUES: Normal. Radiopaque shadow projected over the left apical area. IMPRESSION: Fracture of the greater tuberosity left humerus unchanged from previous examination. Reviewed, dictated and finalized at location A. IMPRESSION: Fracture of the greater tuberosity left humerus unchanged from previous examina tion.
--- NOTE | ~2023-11-24 | XR_ITS ---
Left Knee Technique: AP, lateral, and sunrise views were obtained. Clinical History: Pain Findings: No fracture or dislocation is seen. Medial compartment narrowing noted. There is mild degen erative spurring at the intercondylar notch. Soft tissues are unremarkable. No joint effusion is seen . Impression: Mild degenerative spurring, as above. Medial compartment narrowing. Reviewed, dictated and finalized at location . Impression: Mild degenerative spurring, as above. Medial compartment narrowing.
== END 2023-11-24 12:41 | disposition home or self-care (01) ==
PROVIDERS: Visit Provider Orthopaedic Surgery
DX: M25.762 Osteophyte, left knee (principal); S42.252A Displaced fracture of greater tuberosity of left humerus, initial encounter for closed fracture; X58.XXXA Exposure to other specified factors, initial encounter; Z98.890 Other specified postprocedural states; Z87.81 Personal history of (healed) traumatic fracture
CPT/HCPCS: 73030; 73564

== ENCOUNTER 2023-11-29 13:31 | Outpatient (CLI) | payer MEDICARE, SELFPAY ==
[2023-11-29 13:49] LABS: Basophils Absolute Auto 0.1 K/mm3 (0.0-0.1); Basophils Percent Auto 0.7 % (0.2-1.2); Eosinophils Absolute Auto 0.1 K/mm3 (0-0.3); Eosinophils Percent Auto 1.2 % (0-4.4); Hematocrit 38.8 % (37.0-47.0); Immature Granulocyte Absolute 0.02 K/mm3 (0.00-0.031); Immature Granulocyte Percent A 0.3 % (0-0.5); Lymphocytes Percent Auto 17.8 % (18.3-44.2); Mean Corpuscular HGB Conc 33.5 g/dl (32-36); Mean Corpuscular Hemoglobin 31.6 pg (26-34); Mean Corpuscular Volume 94.4 fl (80-100); Mean Platelet Volume 8.8 fl (7.4-10.4); Monocytes Absolute Auto 0.7 K/mm3 (0.1-0.6); Monocytes Percent Auto 8.9 % (2.6-8.5); Neutrophils Absolute Auto 5.2 K/mm3 (1.3-6.7); Neutrophils Percent Auto 71.1 % (45.5-73.1); Platelet Count Result 196 k/mm3 (150-375); Red Blood Count 4.11 M/mm3 (4.2-5.4); Red Cell Distribution Width 12.9 % (11.5-14.5); White Blood Count 7.3 K/mm3 (4.5-10.0)
[2023-11-29 13:53] LABS: Blood Urea Nitrogen 14 mg/dL (8-26); Carbon Dioxide 25 mmol/L (22-30); Chloride 104 mmol/L (98-109); Estimated Glomerular Filt Rate > 60; Glucose 101 mg/dL (70-105); Ionized Calcium (POC) 1.37 mmol/L (1.11-1.31); Sodium 139 mmol/L (138-146)
[2023-11-29 16:33] LABS: Alanine Aminotransferase 16 U/L (6-35); Albumin Level 4.3 g/dL (3.5-5.1); Alkaline Phosphatase 107 U/L (38-126); Anion Gap 4 mmol/L (4-12); Aspartate Amino Transferase 35 U/L (14-36); Bilirubin,Total 0.6 mg/dL (0.2-1.3); Blood Urea Nitrogen 15 mg/dL (7-17); Calcium 10.5 mg/dL (8.4-10.2); Carbon Dioxide 29 mmol/L (22-30); Chloride 104 mmol/L (98-107); Estimated Glomerular Filt Rate > 60; Glucose 97 mg/dL (65-110); Potassium 3.9 mmol/L (3.4-5.0); Sodium 137 mmol/L (137-145)
== END 2023-11-29 13:32 | disposition home or self-care (01) ==
LOC: ANHLAB 13:33
PROVIDERS: Visit Provider Internal Medicine Hematology & Oncology
DX: D05.11 Intraductal carcinoma in situ of right breast (principal)
CPT/HCPCS: 36415; 80047; 80053; 85025

== ENCOUNTER 2023-12-07 14:23 | Emergency (ER) | payer MEDICARE, SELFPAY ==
--- NOTE | 2023-12-07 14:25 | ED.URI ---
HPI - URI/Sore Throat General Chief Complaint: Upper Respiratory Infection Stated Complaint: Sore Throat/Bodyaches Time Seen by Provider: 12/07/23 14:25 Source: patient Mode of arrival: ambulatory Limitations: no limitations History of Present Illness HPI Narrative: Patient is an 88-year-old female who presents with sore throat and body aches since Wednesday. Patient was seen 11/02 for similar symptoms. Patient takes daily allergy medicine. Denies any fever, chills, nausea, vomiting, diarrhea. Related Data Home Medications Medication Instructions Recorded Confirmed hzpxkn-kburwzsb-tdmqlix 2 cap PO TID 11/01/19 11/24/23 25,000-79,000-105,000 unit capsule,delayed rel (Zenpep) aluminum hydrox-magnesium carb 95 15 ml PO PRN PRN Heartburn 05/06/21 11/24/23 mg-358 mg/15 mL oral suspension (Gaviscon) famotidine 20 mg tablet See Rx Instructions .Route .COMPLEX 05/06/21 11/24/23 Super C 1 tab-cap PO DAILY 05/13/21 11/24/23 vit C,E,zinc,copper-mihrt1t 250 1 cap PO DAILY 05/13/21 11/24/23 mg-lutein 5 mg-zeaxanthin 1 mg capsule (Ocuvite Adult 50 Plus) artificial 1 drp EACH EYE ONCE PRN Dry Eye(S) 12/01/21 11/24/23 tears(jwdlbxp-punjfjff-mwseylf) 0.1 %-0.3 %-0.2 % eye drops (GenTeal Tears Moderate) peg 400-propylene glycol (PF) 0.4 1 drp EACH EYE DAILY PRN Dry Eyes 12/01/21 11/24/23 %-0.3 % eye drops in a dropperette (Systane (PF)) anastrozole 1 mg tablet 1 mg PO DAILY 07/07/22 11/24/23 Cbd 15 mg PO PRN PAIN 02/08/23 11/24/23 fluticasone propionate 50 1 spray intranasal BID PRN 02/08/23 11/24/23 mcg/actuation nasal Congestion spray,suspension (Flonase Allergy Relief) loratadine 10 mg tablet (Claritin) 10 mg PO DAILY 02/08/23 11/24/23 calcium 600 mg (as 1 tablet PO DAILY 08/30/23 11/24/23 carbonate)-vitamin D3 10 mcg (400 unit) tablet (Calcium 600 + D(3)) trospium 20 mg tablet 20 mg PO DAILY 08/30/23 11/24/23 Allergies Allergy/AdvReac Type Severity Reaction Status Date / Time amoxicillin Allergy Mild Nausea AND Verified 12/07/23 14:27 ITCHING esomeprazole Allergy Unknown Itching Verified 12/07/23 14:27 pantoprazole Allergy Unknown Itching Verified 12/07/23 14:27 rabeprazole Allergy Unknown Itching Verified 12/07/23 14:27 codeine AdvReac Unknown N/V Verified 12/07/23 14:27 Review of Systems Review of Systems: All systems reviewed & are unremarkable except as noted in HPI and below Constitutional: Constitutional: Reports body ache(s), Denies chills, Denies fatigue, Denies fever(s), Denies headache(s), Denies malaise and Denies weakness Eyes: Eyes: Denies blurry vision, Denies itchy eyes and Denies loss of vision ENT: Denies otalgia, Denies headache(s), Reports nasal congestion, Denies sinus pain and Reports sore throat Cardiovascular: Cardiovascular: Denies chest pain, Denies irregular heart rhythm and Denies dyspnea Respiratory: Respiratory: Reports cough and Denies dyspnea Gastrointestinal: Gastrointestinal: Denies abdominal pain, Denies diarrhea, Denies nausea and Denies vomiting Musculoskeletal: Musculoskeletal: Denies back pain, Denies myalgias and Denies arthralgias Integumentary/Breasts: Skin/Breast: Denies pruritus and Denies rash Neurologic: Denies headache(s), Denies loss of vision and Denies weakness Psychiatric: Psychiatric: Reports no additional psychiatric complaints Endocrine: Endocrine: Denies fatigue Allergic/Immunologic: Allergic/Immunologic: Denies itchy eyes PMFSH Past Medical History Medical History Acid reflux Acute pain of left shoulder Anemia Arthritis Benign essential tremor Bruises easily Ductal carcinoma in situ of right breast Hypertension Restless legs syndrome Urinary incontinence Surgical History Surgical History H/O right breast biopsy (02/19/23) DUCTAL CARCINOMA IN SITU OF RIGHT BREAST History of cholecystectomy History
[2023-12-07 14:33] VITALS: BP 148/76; PULSE 74; RESP 16; TEMP 36.5; O2SAT 98
== END 2023-12-07 15:05 | disposition home or self-care (01) ==
PROVIDERS: Emergency Provider Nurse Practitioner Family; PCP Internal Medicine
DX: H66.91 Otitis media, unspecified, right ear (principal); Z87.891 Personal history of nicotine dependence; K21.9 Gastro-esophageal reflux disease without esophagitis; M19.90 Unspecified osteoarthritis, unspecified site; I10 Essential (primary) hypertension; G25.81 Restless legs syndrome
CPT/HCPCS: 99213; G0463

== ENCOUNTER 2024-02-04 13:24 | Outpatient (CLI) | payer MEDICARE, SELFPAY ==
--- NOTE | ~2024-02-04 | MM_ITS ---
EXAMINATION: MM diagnostic deangelo RT w josephine HISTORY: History of right breast cancer status post lumpectomy in 2022 TECHNIQUE: Additional 3-D tomosynthesis images of the right breast were performed and synthetic 2-D i mages were generated. CAD analysis was submitted and interpreted. COMPARISON: Comparison to multiple prior studies sequentially, with oldest reviewed study dated 08/17. BREAST PARENCHYMAL COMPOSITION: Not dense: There are scattered areas of fibroglandular density. FINDINGS: There are lumpectomy changes in the upper outer quadrant of the right breast posterior thir d. There are no new masses, calcifications or architectural distortion in the right breast to suggest malignancy. IMPRESSION: 1. No evidence for malignancy in the right breast. Stable postoperative change. 2. Routine yearly screening mammogram and regular clinical breast examination are recommended. BI-RADS Category 2: Benign finding(s). Reviewed, dictated and finalized at location B. BOTOMIST PRN IMPRESSION: 1. No evidence for malignancy in the right breast. Stable postoperative change. 2. Routine yearly screening mammogram and regular clinical breast examination a re recommended. BI-RADS Category 2: Benign finding(s).
== END 2024-02-04 13:25 | disposition home or self-care (01) ==
LOC: ANHIMG 13:25
PROVIDERS: PCP Internal Medicine; Visit Provider Surgery
DX: D05.11 Intraductal carcinoma in situ of right breast (principal); Z98.890 Other specified postprocedural states
CPT/HCPCS: 77061; 77065; G0279

== ENCOUNTER 2024-02-14 11:09 | Outpatient (CLI) | payer MEDICARE, SELFPAY ==
[2024-02-14 11:34] LABS: Basophils Absolute Auto 0.1 K/mm3 (0.0-0.1); Basophils Percent Auto 0.8 % (0.2-1.2); Eosinophils Absolute Auto 0.1 K/mm3 (0-0.3); Eosinophils Percent Auto 0.9 % (0-4.4); Hematocrit 38.7 % (37.0-47.0); Hemoglobin 13.1 g/dL (12.0-15.0); Immature Granulocyte Absolute 0.02 K/mm3 (0.00-0.031); Immature Granulocyte Percent A 0.3 % (0-0.5); Lymphocytes Absolute Auto 1.11 K/mm3 (0.9-3.2); Lymphocytes Percent Auto 16.8 % (18.3-44.2); Mean Corpuscular HGB Conc 33.9 g/dl (32-36); Mean Corpuscular Hemoglobin 32.9 pg (26-34); Mean Corpuscular Volume 97.2 fl (80-100); Mean Platelet Volume 9.1 fl (7.4-10.4); Monocytes Absolute Auto 0.6 K/mm3 (0.1-0.6); Monocytes Percent Auto 9.1 % (2.6-8.5); Neutrophils Absolute Auto 4.8 K/mm3 (1.3-6.7); Neutrophils Percent Auto 72.1 % (45.5-73.1); Platelet Count Result 221 k/mm3 (150-375); Red Blood Count 3.98 M/mm3 (4.2-5.4); Red Cell Distribution Width 13.2 % (11.5-14.5); White Blood Count 6.6 K/mm3 (4.5-10.0)
[2024-02-14 11:47] LABS: Alanine Aminotransferase 17 U/L (6-35); Albumin Level 4.4 g/dL (3.5-5.1); Alkaline Phosphatase 110 U/L (38-126); Anion Gap 5 mmol/L (4-12); Aspartate Amino Transferase 34 U/L (14-36); Bilirubin,Total 0.4 mg/dL (0.2-1.3); Blood Urea Nitrogen 16 mg/dL (7-17); Calcium 9.8 mg/dL (8.4-10.2); Carbon Dioxide 30 mmol/L (22-30); Chloride 106 mmol/L (98-107); Estimated Glomerular Filt Rate > 60; Glucose 106 mg/dL (65-110); Sodium 141 mmol/L (137-145)
[2024-02-14 13:09] LABS: Free T4 Free Thyroxine 1.45 ng/dL (0.78-2.19); Vitamin D 25 Hydroxy 62.3 ng/mL
[2024-02-16 12:39] LABS: CMV DNA Quant PCR IU/mL Not Detected (Not Detected); Cytomegalovirus DNA Quant PCR Not Detected Log IU/mL (Not Detected)
== END 2024-02-14 11:10 | disposition home or self-care (01) ==
PROVIDERS: PCP Family Medicine; Visit Provider Family Medicine
DX: D72.821 Monocytosis (symptomatic) (principal); R53.82 Chronic fatigue, unspecified; E78.5 Hyperlipidemia, unspecified; K86.81 Exocrine pancreatic insufficiency; N39.3 Stress incontinence (female) (male); E83.52 Hypercalcemia; G25.0 Essential tremor; G62.9 Polyneuropathy, unspecified; D72.820 Lymphocytosis (symptomatic)
CPT/HCPCS: 36415; 80048; 80076; 82306; 82607; 84439; 84443; 85025; 87497

== ENCOUNTER 2024-06-26 09:22 | Outpatient (CLI) | payer MEDICARE, SELFPAY ==
--- NOTE | ~2024-06-26 | CT_ITS ---
CT of the Abdomen and Pelvis: Indication: Abdominal pain Technique: 2.5 mm axial scans were obtained through the abdomen and pelvis following intravenous adm inistration of 100 cc of Omnipaque 350. Dose reduction technique was used on this scan by utilizing a utomated exposure control and iterative reconstruction technique. The dose-length product (DLP) was 2 60.82 mGy-cm. Findings: Scans through the lung bases are unremarkable. Small pericardial effusion noted. Cholecystectomy clips and pneumobilia are present. The liver, spleen, pancreas, and adrenal glands ar e otherwise within normal limits. Bilateral renal cysts are present, including large left renal cyst measuring 9.3 cm in diameter. There are atherosclerotic calcifications of the aorta. No lymphadenopa thy. No bowel obstruction or bowel wall thickening. There is no evidence to suggest acute appendicitis. Images through the pelvis are degraded by streak artifact from right hip arthroplasty. Suspected diff use urinary bladder wall thickening despite relative nondistended state. Calcified uterine fibroids a re present. No ascites evident. There is diffuse degenerative spondylosis of the spine. Impression: Suspected cystitis. Correlate clinically and with urinalysis. Calcified uterine fibroids. Small pericardial effusion. Additional chronic findings, as above. Reviewed, dictated and finalized at location . Impression: Suspected cystitis. Correlate clinically and with urinalysis. Calcified uterine fibroids. Small pericardial effusion. Additional chronic findings, as above.
[2024-06-26 09:55] LABS: Estimated Glomerular Filt Rate 59
--- OUTSIDE RECORDS SUMMARY | 2024-06-26 10:12 | XMS_ITS | Encounter Summary ---
Author Organization [facility] Healthcare Address [address] [place] [address] Care Team Providers Care Comprehensive Advisor Name Role Phone Krishna Medina MD Primary Care Provider [phone] Krishna Medina MD Unavailable [phone] Reason for Visit * Diagnostic Imaging (Routine) - Closed Specialty Diagnoses / Procedures Referred By Contac t Referred To Contact Procedures Breast Imaging Screening Outside Reference Aft, Sweta Gleason MD PhD [address] [place] [address] Phone: tel: fax: Referral ID Status Reason Start Date Expiration Date Visits Re quested Visits Authorized [id number] Closed 01/19/2022 02/18/2023 1 1 Encounter Details Date Type Department Care Team (Late st Contact Info) Description 09/25/2019 Hospital Encounter [facility] [address] [place] [address] [id number] Social History Tobacco Use Types Packs/Day Years [...] on file 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. There will be no report generated by a [facility]. Narrative [facility] - 01/19/2022 11:03 AM BIOENGINEER EXAMINATION: Images For Reference Purposes Only us Sweta Conteh MD PhD IMG MAMMO PROCEDURES Final Result [facility] documented in this encounter Visit Diagnoses Not on filedocumented in this encounter Care Teams Comprehensive Advisor Relationship Specialty Start Date End Date Krishna Medina MD [address] [address] PCP - General 03/17/19 04/08/21 Krishna Medina MD [address] [address] 03/17/19 documented as of this encounter
--- OUTSIDE RECORDS SUMMARY | 2024-06-26 10:12 | XMS_ITS ---
Author Organization [facility] Address [address] [place] [address] Care Team Providers Care Surveyor Rod Helper Name Role Phone Luigi Peng Primary Care Provider Dhara MURCIA NP, MICHAELLE Jenkins [phone] REASON FOR VISIT Zenpep refill MEDICATIONS Medication SIG (Take, Route, Fr equency, Duration) Notes Start Date End Date Status Zenpep 12774-77982 UNIT TAKE 2 CAPSULES BY MOUTH WITH MEALS AND 1 CAPSULE WITH SNACKS DIRECTED for 360 Active Encounters Encounter Location Date Provider Diagnosis [facility] [address] [place] [address] 11/02/2023 MICHAELLE MURCIA PLAN OF TREATMENT Medication Medication Name Sig Start Date Stop Date Notes Zenpep 62987-44116 UNIT TAKE 2 CAPSULES BY MOUTH WITH MEALS AND 1 CAPSULE WITH SNACKS DIRECTED for 360 Progress Notes * Marshal SANDERSDOB: [birth year] (88 yo F)Acc No.[id number]:11/02/2023 Patient: Marshal SANDERS :1935 Age:88 Y Sex:Female Address:[address] [place], [address] * Refills Refill Zenpep Capsule Delayed Release Part[place], [id number] UNIT, 720 Capsule, TAKE 2 CAPSULES BY MOUTH WITH MEALS AND 1 CAPSULE WITH SNACKS DIRECTED, 360, Refills=2 * true * Date:
--- OUTSIDE RECORDS SUMMARY | 2024-06-26 10:12 | XMS_ITS | Encounter Summary ---
Author Organization [facility] Address [address] [facility] Attn: Epic Prelude ADT [place] [address] Care Team Providers Care Curing Pickling Packer Name Role Phone Abrahan Mcgee MD Primary Care Provider Encounter Details Date Type Department Care Team (Late st Contact Info) Description 05/03/1990 Outpatient Historical Andre Ernst MD NO ADDRESS ON FILE Social History Tobacco Use Types Packs/Day Years Used Date Smoking Tobacco: Never Assessed Comments Unknown Sex and Gender Information Value Date Recorded Sex Assigned at Not on file Legal Sex Female 3:33 AM GAS SINGER Gender Identity Not on file Sexual Orientation Not on file documented as of this encounter Plan of Treatment Upcoming Encounters Date Type Department Care Team (Late st Contact Info) Description 10/02/2024 11:45 AM CDT Office Visit [facility] Oncology and Hematology - [place] [address] [place] [address] [address] [place] [address] Prince Mir MD [address] [place] [address] [address] [place] [address] documented as of this encounter Visit Diagnoses Not on filedocumented in this encounter Care Teams Curing Pickling Packer Relationship Specialty Start Date End Date Abrahan Mcgee MD [address] [place] [address] PCP - General Family Practice 04/03/24 documented as of this encounter
--- OUTSIDE RECORDS SUMMARY | 2024-06-26 10:12 | XMS_ITS | Encounter Summary ---
Author Organization [facility] Address [address] [place] [address] Phone Care Team Providers Care Office Supervisor Name Role Phone Krishna Medina MD Unavailable [phone] Luigi Nicole Primary Care Provider Lina Yates NP Unavailable [phone] Yogesh Corbett DO Primary Care Provider [phone] Abrahan Mcgee MD Primary Care Provider [phone] Encounter Details Date Type Department Care Team (Late st Contact Info) Description 02/05/[address] [facility] 5th [place] [address] [place] [address] Akila Toussaint Social History Tobacco Use Types Packs/Day Years Used Date Smoking Tobacco: Former Smokeless Tobacco: Never Alcohol Use Standard Drinks/Week Comments No 0 [...] on file Legal 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:42 PM GLASS BEAD MAKER Gender Identity Not on file Sexual Orientation Not on file documented as of this encounter Plan of Treatment Not on file documented as of this encounter Visit Diagnoses Not on filedocumented in this encounter Care Teams Office Supervisor Relationship Specialty Start Date End Date Luigi Nicole PA [address] [place] [address] [address] [place] [address] PCP - General Physician Field Marketing Specialist 04/09/21 12/01/23 Yogesh Corbett DO [address] [place] [address] PCP - General Internal Medicine 12/02/23 06/05/24 Abrahan Mcgee MD [address] [place] [address] PCP - General Family Medicine 06/06/24 Krishna Medina MD [address] [address] 03/17/19 Lina Yates NP [address] [place] [address] [address] [place] [address] Nurse Practitioner 11/12/22 documented as of this encounter
--- OUTSIDE RECORDS SUMMARY | 2024-06-26 10:12 | XMS_ITS | Encounter Summary ---
Author Organization [facility] Address [address] [facility] Attn: Epic Prelude ADT [place] [address] Care Team Providers Care Port Captain Name Role Phone Abrahan Mcgee MD Primary Care Provider [phone] Encounter Details Date Type Department Care Team (Late st Contact Info) Description 05/19/1993 Outpatient Historical Andre Ernst MD NO ADDRESS ON FILE Social History Tobacco Use Types Packs/Day Years Used Date Smoking Tobacco: Never Assessed Comments Unknown Sex and Gender Information Value Date Recorded Sex Assigned at Not on file Legal Sex Female 3:33 AM 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 Oncology and Hematology - [place] [address] [place] [address] [address] [place] [address] Prince Mir MD [address] [place] [address] [address] [place] [address] documented as of this encounter Visit Diagnoses Not on filedocumented in this encounter Care Teams Port Captain Relationship Specialty Start Date End Date Abrahan Mcgee MD [address] [place] [address] PCP - General Family Practice 04/03/24 documented as of this encounter
--- OUTSIDE RECORDS SUMMARY | 2024-06-26 10:12 | XMS_ITS | Encounter Summary ---
Author Organization [facility] Address [address] [facility] Attn: Epic Prelude ADT [place] [address] Care Team Providers Care Teacher Of The Handicapped Name Role Phone Abrahan Mcgee MD Primary Care Provider [phone] Encounter Details Date Type Department Care Team (Late st Contact Info) Description 07/31/1991 Outpatient Historical Andre Ernst MD NO ADDRESS ON FILE Social History Tobacco Use Types Packs/Day Years Used Date Smoking Tobacco: Never Assessed Comments Unknown Sex and Gender Information Value Date Recorded Sex Assigned at Not on file Legal Sex Female 3:33 AM COMBINATION PRESSER Gender Identity Not on file Sexual Orientation Not on file documented as of this encounter Plan of Treatment Upcoming Encounters Date Type Department Care Team (Late st Contact Info) Description 10/02/2024 11:45 AM CDT Office Visit [facility] Oncology and Hematology - [place] [address] [place] [address] [address] [place] [address] Prince Mir MD [address] [place] [address] [address] [place] [address] documented as of this encounter Visit Diagnoses Not on filedocumented in this encounter Care Teams Teacher Of The Handicapped Relationship Specialty Start Date End Date Abrahan Mcgee MD [address] [place] [address] PCP - General Family Practice 04/03/24 documented as of this encounter
--- OUTSIDE RECORDS SUMMARY | 2024-06-26 10:12 | XMS_ITS | Clinical Summary ---
Author Organization [facility] Address [address] [facility] [place] [address] Care Team Providers Care Appeals Writer Name Role Phone Abrahan Mcgee MD Primary Care Provider [phone] Source Comments [facility] Affiliates and Associated Physician Practices is amultiple site organization consisting of ambulatory clinics and hospital sitesin [place], [place], [place] and [place]. This disclosure is being madepursuant to the Care Everywhere program and may not contain all information available regarding this patient. 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 Gender Identity Not on file Sexual Orientation Not on file Plan of Treatment Health Maintenance Due Date Last Done Comments BONE DENSITY TESTING 1935 DTAP/TDAP/TD VACCINES (1 - Tdap) 10/12/1954 PNEUMOCOCCAL VACCINE 50+ (1 of 1 - PCV) 10/12/1985 ZOSTER VACCINE (1 of 2) 10/12/1985 Respiratory Syncytial Virus (RSV) Vaccine Pt: or over 60 yrs (1 - 1-dose 75+ series) 10/12/2010 COVID-19 VACCINE ( - 2023-2 5 season) 2023 DEPRESSION SCREENING 03/01/2024 MEDICARE AWV CALENDAR YEAR 2024 INFLUENZA VACCINE (Season Ended) 2024 HEPATITIS B VACCINE Aged Out No longe r eligible based on patient's age to complete this topic HIB VACCINE Aged Out No longer eligi ble based on patient's age to complete this topic HPV VACCINE Aged Out No longer eligi ble based on patient's age to complete this topic MENINGOCOCCAL (Group B) VACC INE SHARED DECISION-MAKING Aged Out No longer eligibl e based on patient's age to complete this topic MENINGOCOCCAL GROUPS A/C/Y/W VACCINE Aged Out No longer eligible b ased on patient's age to complete this topic Insurance [facility] MANAGED MEDICARE ADV AET[employer] MEDICARE ADV SELF PAY NO INSURANCE Member Subscriber Plan / Payer (Ef fective for All Dates) Name:Marshal Sanders Member ID:Not on file Relation to Subscriber:Not on file Name:Marshal SANDERS Subscriber ID:Not on file Address: [address] [place] [address] Payer ID:Not on file Group ID:Not on file Type:Self Pay Address: [place], [place] AETNA MEDICARE ADV SELF PAY NO INSURANCE Member Subscriber Plan / Payer (Ef fective for All Dates) Name:Marshal Sanders Member ID:Not on file Relation to Subscriber:Not on file Name:Marshal SANDERS Subscriber ID:Not on file Address: [address] [place] [address] [place] [address] Payer ID:Not on file Group ID:Not on file Type:Self Pay Address: [place], [place] Care Teams Appeals Writer Relationship Specialty Start Date End Date Abrahan Mcgee MD [address] [place] [address] PCP - General 07/23/09
--- OUTSIDE RECORDS SUMMARY | 2024-06-26 10:12 | XMS_ITS | Clinical Summary ---
Author Organization [facility] Address [address] [place] [address] Phone Care Team Providers Care Pilot Plant Research Technician Name Role Phone Abrahan Mcgee MD Primary Care Provider [phone] Allergies Active Allergy Reactions Criticality Noted Date Comments Amoxicillin Itching Low 09/18/2019 Azithromycin Itching Low 07/11/2018 Codeine Other (See Comments) 09/18/2019 Esomeprazole Itching,Rash Low 09/18/2019 Reaction: PRURITIS Iodinated Contrast Media Other (See Comments) 09/18/2019 Omeprazole Itching,Nausea and Vomiting Low 09/18/2019 Pantoprazole Itching,Rash Low 09/18/2019 Reaction: PRURITIS Rabeprazole Itching,Rash Low 09/18/2019 Reaction: PRURITIS Medications amLODIPine (NORVASC) 10 mg tablet Take 5 mg by mouth daily. 9 Active multivitamin (DAILY-RADHA) tablet daily 8 Active peg 400-propylene glycol (SYSTANE) 0.4-0.3 % solution 1 Drop by Ophthalmic route. Active loratadine (CLARITIN) 10 mg tablet Take 10 mg by mouth. 9 Active fluticasone propionate (FLONASE) 50 mcg/spray [place], Suspension nasal inhaler Administer 2 Sprays in each nostril daily. Active montelukast (Singulair) 10 mg tabletIndicatio ns:Non-seasonal allergic rhinitis due to pollen Take 1 Tablet (10 mg) by mouth daily at bedtime. 30 Tablet 1 0 Active ascorbic acid (SUPER C ORAL) Take by mouth. Active famotidine (PEPCID) 10 mg tablet Take 10 mg by mouth daily at bedtime. Active gabapentin (NEURONTIN) 100 mg capsule Take 100 mg by mouth 3 times daily. Active anastrozole (ARIMIDEX) 1 mg tabletIndicatio ns:Ductal carcinoma in situ (DCIS) of right breast Take 1 tablet by mouth once daily 90 Tablet 3 5 Active Active Problems Problem Noted Date Diagnosed Date HTN (hypertension), benign 09/18/2019 Vaginal atrophy 09/18/2019 Gastritis 09/18/2019 Non-seasonal allergic rhinitis due to pollen Restless leg syndrome 09/18/2019 Encounters Date Type Department Care Team Description 04/18/2024 External Device Data STL ABSTRACTION Provider, Abstract 04/06/2024 Refill [facility] Oncology [facility] Hematology [facility] [address] [place] [address] Pricne Mir MD Ductal carcinoma in situ (DCIS) of right breast 04/03/2024 3:30 PM LUMBER TALLIER Office Visit [facility] Oncology [facility] [address] [place] [address] Prince Mir MD Ductal carcinoma in situ (DCIS) of right breast (Primary Dx) 04/03/2024 Orders Only [facility] Oncology [facility] [address] [place] [address] Prince Mir MD 03/28/2024 External Device Data STL ABSTRACTION Provider, Abstract from Last 3 Months Immunizations Immunization Administration Dates Next Due Influenza Vaccine High Dose 65+ Yrs IM 9 Pneumococcal 13-berna Conj Vacc Patient Supplied 1 Family History Medical History Relation Name Comments Kidney Cancer Brother 1 Brain Cancer Father Diabetes Sister 1 Relation Name Status Comments Brother 1 Brother 2 Alive Father Mother Sister 1 Alive Sister 2 Alive Sister 3 Alive Son Social History Tobacco Use Types Packs/Day Years Used Date Smoking Tobacco: Former Cigarettes 1 49 1 952 - 2001 Smokeless Tobacco: Never Tobacco Cessation:Counseling Given: Not Answered Alcohol Use Standard Drinks/Week Comments Never 0 (1 standard drink = 0.6 oz pur e alcohol) Comments Unknown Sex and Gender Information Value Date Recorded Sex Assigned at Not on file Legal Sex Female 3:33 AM LUMBER TALLIER Gender Identity Not on file Sexual Orientation Not on file Last Filed Vital Signs Vital Sign Reading Time Taken Comments Blood Pressure 132/71 04/03/2024 2:30 PM LUMBER TALLIER Pulse 69 04/03/2024 2:30 PM LUMBER TALLIER Temperature 36.1 C (97 F) 04/03/2024 2:30 PM LUMBER TALLIER Respiratory Rate 14 04/03/2024 2:30 PM LUMBER TALLIER Oxygen Saturation 96% 04/03/2024 2:30 PM LUMBER TALLIER Inhaled Oxygen Concentration - - Weight 53.1 kg (117 lb) 04/03/2024 2:30 PM LUMBER TALLIER Height 149.9 cm (4' 11 ) 12/09/2022 2:04 PM CDT Body Mass Index 23.63 12/09/2022 2:04 PM CDT Plan of Treatment Upcoming Encounters Date Type Department Care Team (Late st Contact Info) Description 10/02/2024 11:45 AM CDT Office Visit [facility] Oncology and Hematology - [place] [address] [place] [address] [facility] [address] [place] [address] Prince Mir MD [address] [facility] [address] [place] [address] Health Maintenance Due Date Last Done Comments DTAP/TDAP/TD VACCINES (1 - Tdap) 10/12/1954 ZOSTER VACCINE (1 of 2) 10/12/1985 OSTEOPOROSIS SCREENING 10/12/2000 RSV VACCINE (60+ or ) (1 - 1-dose 75+ series) 10/12/2010 PNEUMOCOCCAL VACCINE 50+ YEARS (2 of 2 - PPSV23) 12/1612/16/2018 INFLUENZA VACCINE (#1) 2023 01/20/2019 Procedures Procedure Name Priority Date/Time Associated Diagnosis Comments BASIC METABOLIC PANEL Routine 04/03/2024 4:26 PM LUMBER TALLIER CBC WITH DIFFERENTIAL Routine 04/03/2024 4:18 PM LUMBER TALLIER from Last 3 Months Results * BASIC METABOLIC PANEL (04/03/2024 4:26 PM LUMBER TALLIER) Blood Prince Mir MD CHEMISTRY ORDERABLES Final Resu lt * CBC WITH DIFFERENTIAL (04/03/2024 4:18 PM LUMBER TALLIER) Blood Prince Mir MD HEMATOLOGY ORDERABLES Final Res ult from Last 3 Months [facility] Care Teams Pilot Plant Research Technician Relationship Specialty Start Date End Date Abrahan Mcgee MD [address] [place] [address] PCP - General Family Practice 04/03/24
--- OUTSIDE RECORDS SUMMARY | 2024-06-26 10:12 | XMS_ITS | Encounter Summary ---
Author Organization [facility] Address [address] [facility] Attn: Epic Prelude ADT [place] SP[place] [address] Care Team Providers Care Gas Line Repairer Name Role Phone Abrahan Mcgee MD Primary Care Provider Encounter Details Date Type Department Care Team (Late st Contact Info) Description 05/10/1990 Outpatient Historical Andre Ernst MD NO ADDRESS ON FILE Social History Tobacco Use Types Packs/Day Years Used Date Smoking Tobacco: Never Assessed Comments Unknown Sex and Gender Information Value Date Recorded Sex Assigned at Not on file Legal Sex Female 3:33 AM DESIZING PAD OPERATOR Gender Identity Not on file Sexual Orientation Not on file documented as of this encounter Plan of Treatment Upcoming Encounters Date Type Department Care Team (Late st Contact Info) Description 10/02/2024 11:45 AM CDT Office Visit [facility] Oncology and Hematology - [place] [address] [place] [address] [address] [place] [address] Prince Mir MD [address] [place] [address] [address] [place] [address] documented as of this encounter Visit Diagnoses Not on filedocumented in this encounter Care Teams Gas Line Repairer Relationship Specialty Start Date End Date Abrahan Mcgee MD [address] [place] [address] PCP - General Family Practice 04/03/24 documented as of this encounter
--- OUTSIDE RECORDS SUMMARY | 2024-06-26 10:12 | XMS_ITS | Encounter Summary ---
Author Organization [facility] Address [address] [facility] Attn: Epic Prelude ADT [place] SPARROW [address] Care Team Providers Care Last Chalker Name Role Phone Abrahan Mcgee MD Primary Care Provider Encounter Details Date Type Department Care Team (Late st Contact Info) Description 09/11/1988 Outpatient Historical Andre Ernst MD NO ADDRESS ON FILE Social History Tobacco Use Types Packs/Day Years Used Date Smoking Tobacco: Never Assessed Comments Unknown Sex and Gender Information Value Date Recorded Sex Assigned at Not on file Legal Sex Female 3:33 AM MASTER AUTOMOTIVE GLASS TECHNICIAN Gender Identity Not on file Sexual Orientation Not on file documented as of this encounter Plan of Treatment Upcoming Encounters Date Type Department Care Team (Late st Contact Info) Description 10/02/2024 11:45 AM CDT Office Visit [facility] Oncology and Hematology - [place] [address] [place] [address] [address] [place] [address] Prince Mir MD [address] [place] [address] [address] [place] [address] documented as of this encounter Visit Diagnoses Not on filedocumented in this encounter Care Teams Last Chalker Relationship Specialty Start Date End Date Abrahan Mcgee MD [address] [place] [address] PCP - General Family Practice 04/03/24 documented as of this encounter
--- OUTSIDE RECORDS SUMMARY | 2024-06-26 10:12 | XMS_ITS | Encounter Summary ---
Author Organization [facility] Address [address] [facility] [place] [place] [address] Care Team Providers Care Storm Window Installer Name Role Phone Abrahan Mcgee MD Primary Care Provider [phone] Encounter Details Date Type Department Care Team (Late st Contact Info) Description 08/13/2021 Lab Requisition [facility] Derm[facility] Lab [address] [place] [address] Jose G Llamas MD [address] [place] [address] Social History Tobacco Use Types Packs/Day Years Used Date Smoking Tobacco: Never Assessed Comments Unknown Sex and Gender Information Value Date Recorded Sex Assigned at Not on file Legal Sex Female 6:23 PM RESEARCH PROGRAM MANAGER Gender Identity Not on file Sexual Orientation Not on file documented as of this encounter Plan of Treatment Not on file documented as of this encounter Procedures Procedure Name Priority Date/Time Associated Diagnosis Comments DERMATOPATHOLOGY Routine 08/12/2021 12:0 0 AM CDT documented in this encounter Results * DERMATOPATHOLOGY (08/12/2021 12:00 AM CDT) Case Report Dermatopathology Report Case: [id number] Authorizing Provider: Jose G Llamas MD Collected: 08/12/2021 12:00 AM Ordering Location: [facility] Received: 08/13/2021 10:45 AM Pathologist: Jessica Peacock MD Specimen: Skin, right vertex 10:59 AM CDT DERMATOPATHOLOGY LABORATORY Final Diagnosis Specimen A. SKIN, right vertex: SEBORRHEIC KERATOSIS, IRRITATED AND INFLAMED (L82.0) 2 10:59 AM CDT DERMATOPATHOLOGY LABORATORY Clinical History R/O SK, Dysplastic Nevus 10:59 AM CDT DERMATOPATHOLOGY LABORATORY Gross Description Specimen A: Received is one formalin filled container labeled with the patient's name and designated right vertex. The specimen consists of a shave biopsy measuring [id number]. Jar 0. 10:59 AM CDT DERMATOPATHOLOGY LABORATORY Microscopic Description Specimen A. SKIN, right vertex: Sections show acanthosis, papillomatosis, hyperkeratosis, and squamous eddies. There is a lymphohistiocytic infiltrate within the papillary dermis. 2 10:59 AM CDT DERMATOPATHOLOGY LABORATORY Disclaimer An external and internal positive and negative controls are appropriate for the histochemical, immunohistochemical and immunofluorescence stain(s) in this case (if any), except where stated explicitly. The performance characteristics of the stain(s) cited in this report were developed and its performance characteristic determined by the Dermatopathology Laboratory at [facility], directed by Dr. Troy Mckeon. These tests need not be, and therefore are not, approved by the [place] Food and Drug Administration. The tests are used for clinical purposes. Billing Codes Specimen Charges Stain Charges 72416 1 2 10:59 AM CDT DERMATOPATHOLOGY LABORATORY Embedded Images 10:59 AM CDT DERMATOPATHOLOGY LABORATORY Pathology/Cytolog y TISSUE SPECIMEN FROM SKIN / Unknown 08/12/2021 08/13/2021 10:45 AM CDT us Jose G Llamas MD LAB - PATHOLOGY/CYTOLOGY ORD ERABLES Final Result DERMATOPATHOLOGY LABORATORY [facility] - Department of Dermatology [address], [address] [phone] documented in this encounter Visit Diagnoses Not on filedocumented in this encounter Care Teams Storm Window Installer Relationship Specialty Start Date End Date Abrahan Mcgee MD [address] [place] [address] PCP - General 07/23/09 documented as of this encounter
--- OUTSIDE RECORDS SUMMARY | 2024-06-26 10:12 | XMS_ITS | Patient Health Record ---
Author Organization [facility] Address [address] [facility] [address] [place] [address] Care Team Providers Care Factory Supervisor Name Role Phone Luigi Peng Primary Care Provider Dhara MURCIA COURT COMMISSIONER, MICHAELLE Unavailable [phone] ALLERGIES Allergen (clinical drug ingredient) Drug/Non Drug Allergy documented on EMR Reaction Allergy Type Onset Date Status IODINATED CONTRAST- ORAL AND IV DYE (uncoded) Review Dt:07/01/2017 Allergy Active Substance with hydrogen/potassium adenosine triphosphatase enzyme system inhibitor mechanism of action (substance) PROTON PUMP INHIBITORS (uncoded) Review Dt:07/01/2017 Allergy Active ZANTAC Review Dt:07/01/2017 Drug Allergy Active amoxicillin Amoxicillin Unknown Drug Allergy Act alysha azithromycin Azithromycin Unknown Drug Allergy A ctive REASON FOR REFERRAL No Information MEDICATIONS Medication SIG (Take, Route, Frequency, Duration) Notes Start Date End Date Status Ocuvite - as directed Orally A ctive Vitamin C Active Famotidine 20 MG 1 tablet at bedtime as needed Orally Once a day Active Vitamin E Active amLODIPine Besylate 10 MG 1 tablet Orall y Once a day Active Montelukast Sodium 10 MG 1 tablet Orally Once a day Unknown Multivitamin Active rOPINIRole HCl 2 MG 1 tablet 1 to 3 hour s before bedtime Orally Once a day Active Gaviscon 80-14.2 MG 2 tablets after meal s and at bedtime as needed Orally Four times a day Active Clorazepate Dipotassium 3.75 MG 1 tablet Orally Twice a day Unknown Zenpep [id number] UNIT TAKE 2 CAPSULES BY MOUTH WITH MEALS AND 1 CAPSULE WITH SNACKS DIRECTED for 360 Active Flonase Active Systane 0.4-0.3 % as directed Ophthalmic Active Vitamin D Active Metamucil 48.57 % as directed Orally Active Claritin 10 MG 1 tablet Orally Once a day Active SOCIAL HISTORY Tobacco Use: Social History Observation Description Date Details (start date - stop date) Former Smoker NA - NA Sex Assigned At : Social History Observation Description Sex Assigned At Unknown Tobacco Use/Smoking Question Answer Notes Are you a former smoker How long has it been since y ou last smoked? > 10 years Additional Findings: Tobacco Non-User Ex -moderate cigarette smoker (10-19/day) PROBLEMS Problem Type ICD Code Onset Dates Problem Status W/U Status Risk SNOMED Code Notes Problem Gastro-esophage al reflux disease without esophagitis (K21.9) Active confirmed Gastro-esophage a l reflux disease without esophagitis (846337909) Problem Constipation, unspecified (K59.00) Active confirmed Constipation (09561587) Problem Spasm of sphincter of Oddi (K83.4) Active confirmed Spasm of sphincter of Oddi (14845806) Problem Cyst of pancreas (K86.2) Active confirmed Cyst of pancrea s (67649498) Encounters Encounter Location Date Provider Diagnosis [facility] [address] [place] [address] 11/02/2023 MICHAELLE MURCIA PLAN OF TREATMENT Pending Test Test Name Order Date Esophagogastroduodenoscopy (EGD) 020 Esophagogastroduodenoscopy (EGD) 020 Insurance Providers Payer Name Payer Address Payer Phone Subscriber Number Group Number Insured Name Patient Relationship to Insured Coverage Start Date Coverage End Date [employer] Medicare Advantage PPO [address] [address] [place] [address] [phone] [id number] Marshal Sanders Self - patient is the insured MEDICAL (GENERAL) HISTORY Medical History History ICD Code Arthritis GERD Depression Hx diverticular disease SOD/papillary stenosis Pancreatic cyst/IPMN Hemorrhoids Surgical History Surgery Date(Month/Year) EUS- [place] showed 6 cystic lesions throughout pancreas. Stable in size and morphology, no further surveillance recommended d/t age 911/10/21 Interval development of 2 di minutive cysts uncinate of pancreas. Dilated main PD up to 3 mm. Dilated CBD up to 10 mm. Repeat EUS 1 yr EUS 09/06/2019 [place] Six c ystic lesions in genu of pancreas, body, tail and uncinate process. Branched IPMN. Previous cysts were stable in size and appearance EGD 04/21/2019 Normal, empiric dilatatio n performed Appearance of branched IPMN. Mild dilatation of the CBD. Repeat EGD 1 yr Path- gastritis No solid mass lesion. Dilate d PD likely due to IPMN. Stable cystic lesion in pancreatic body, IPMN. Interval development of 3 tiny cysts in genu x 1 and tail x 2 EUS [place] 07/11/18 Elodia fundoplication found, wrap intact. Gastric atrophy. Gastric erythema. Dilated PD and prominently branched in main PD. Pancreatic parenchyma was normal without chronic pancreatitis. Hip replacement 2012 Elodia fundoplication 2007 Repair of femur fracture 1996 Lap nic 1997 ERCP 2003 Stents subsequently removed on March 012005. ERCP on March 10, 2005 wit h findings of combined papillary stenosis, treated with biliary and pancreatic sphincterotomies, morphologic changes of the pancreatic duct consistent with chronic pancreatitis. Dual duct protective stenting was performed. EUS on August 19, 2007 with no rmal EGD and continued mildly dilated pancreatic duct measuring 2.3 mm in the body without evidence of chronic pancreatitis or lymph nodes. 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 EUS 06/07/12 - Dr. Knott - Nor mal pancreas, PD dilatation slightly larger than previous EUS. FNA performed with only pancretic cyst contents noted - pauciellular specimen. Amylase/lipase up , CEA 99.7. H pylori neg. EUS 06/12/14 - Dr. Trinidad No rmal EGD, dilated PD but w/o obstructive etiology. Otherwise wnl. dilatation of MPD and parenc hymal changes thought to be due to mild chronic pancreatitis, CBD without abnormality noted. Biopsies of stomach and esophagus with minimal chronic inflammation noted. EUS Dr. Lucas 05/08 with n oted prior Elodia Fundoplication, non-bleeding mild erythematous gastropathy, dilated PD measuring up 4mm in neck, pancreatic parenchymal abnormalities consisting of hyperechoic strands througout entire pancreas, focal dilatat in entire pancreas concernin g for mild fatty pancreas. 7-8 cm anechoic lesion in vicinity of pancreas most likely left renal cyst also abutting spleen. Repeat 1 yr. path- mild chronic esophagitis, neg for metaplasia. and CHD which measured up to 6 mm. Pneumobilia. Cystic lesion pancreatic tail 3-4 mm. Pancreatic parenchymal abnormalities consisting of diffuse echogenicity EGD/EUS 07/09/15 Dr. Hedy ferrara suspicious for achalasia. Abnormal mucosa in esophagus, gastritis, normal duodenal bulb. Dilated PD in pancreatic head. PD measured up to 5 mm, stable from last year EUS. Dilatation of the entire main CBD 07/09/2015 EGD [place] Normal esophagus , intact anti reflux site found, with restricted feel. Dilated. Erosive gastropathy. Bx. Normal examined duodenum. Path- mild edema and congestion 10/15/2016 EUS [place]- Interval increa se in size of cyst, still appears benign morphologically. 09/10/2016 Colonoscopy reportedly 2012 - no report available, reportedly normal Biliary stent left in place and removed 03/20/08 was noted resolution of biliary and pancreatic stenosis, morphologic changes of the pain duct stone noted. Colonoscopy - Dr. Ha - re portedly 2007 and normal. Hx. of polyps in past.
--- OUTSIDE RECORDS SUMMARY | 2024-06-26 10:12 | XMS_ITS | Encounter Summary ---
Author Organization [facility] Address [address] [facility] Attn: Epic Prelude ADT [place] SPARROW [address] Care Team Providers Care Harp Action Assembler Name Role Phone Abrahan Mcgee MD Primary Care Provider Encounter Details Date Type Department Care Team (Late st Contact Info) Description 07/08/1992 Outpatient Historical Andre Ernst MD NO ADDRESS ON FILE Social History Tobacco Use Types Packs/Day Years Used Date Smoking Tobacco: Never Assessed Comments Unknown Sex and Gender Information Value Date Recorded Sex Assigned at Not on file Legal Sex Female 3:33 AM ROLLING MILL OPERATOR HELPER Gender Identity Not on file Sexual Orientation Not on file documented as of this encounter Plan of Treatment Upcoming Encounters Date Type Department Care Team (Late st Contact Info) Description 10/02/2024 11:45 AM CDT Office Visit [facility] Oncology and Hematology - [place] [address] [place] [address] Dr [address] [place] [address] Prince Mir MD [address] [place] [address] [address] [place] [address] documented as of this encounter Visit Diagnoses Not on filedocumented in this encounter Care Teams Harp Action Assembler Relationship Specialty Start Date End Date Abrahan Mcgee MD [address] [place] [address] PCP - General Family Practice 04/03/24 documented as of this encounter
--- OUTSIDE RECORDS SUMMARY | 2024-06-26 10:13 | XMS_ITS | Encounter Summary ---
Author Organization [facility] Address [address] [place] [address] Care Team Providers Care Chlorine Plant Operator Name Role Phone Abrahan Mcgee MD Primary Care Provider [phone] Encounter Details Date Type Department Care Team (Latest Contact Info) Description 03/22/2001 Outpatient Historical HIS [facility] Andre Vidal MD NO ADDRESS ON FILE BENIGN HYPERTENSION (Primary Dx) Social History Tobacco Use Types Packs/Day Years Used Date Smoking Tobacco: Never Assessed Comments Unknown Sex and Gender Information Value Date Recorded Sex Assigned at Not on file Legal Sex Female 3:33 AM CAREER COACH Gender Identity Not on file Sexual Orientation Not on file documented as of this encounter Plan of Treatment Upcoming Encounters Date Type Department Care Team (Late st Contact Info) Description 10/02/2024 11:45 AM CDT Office Visit [facility] Oncology and Hematology - [place] [address] [place] [address] [address] [place] [address] [place] [address] [place] [address] [address] [place] [address] documented as of this encounter Visit Diagnoses Diagnosis Essential hypertension, benign- Primary documented in this encounter Care Teams Chlorine Plant Operator Relationship Specialty Start Date End Date Abrahan Mcgee MD [address] [place] [address] PCP - General Family Practice 04/03/24 documented as of this encounter
--- OUTSIDE RECORDS SUMMARY | 2024-06-26 10:13 | XMS_ITS | Encounter Summary ---
Author Organization [facility] Address [address] [facility] Attn: Epic Prelude ADT [place] SPARROW [address] Care Team Providers Care Agent Spa Desk Name Role Phone Abrahan Mcgee MD Primary Care Provider Encounter Details Date Type Department Care Team (Late st Contact Info) Description 10/05/1994 Outpatient Historical Andre Ernst MD NO ADDRESS ON FILE Social History Tobacco Use Types Packs/Day Years Used Date Smoking Tobacco: Never Assessed Comments Unknown Sex and Gender Information Value Date Recorded Sex Assigned at Not on file Legal Sex Female 3:33 AM SCHOOL CHILD CARE ATTENDANT Gender Identity Not on file Sexual Orientation Not on file documented as of this encounter Plan of Treatment Upcoming Encounters Date Type Department Care Team (Late st Contact Info) Description 10/02/2024 11:45 AM CDT Office Visit [facility] Oncology and Hematology - [place] [address] [place] [address] Dr [address] [place] [address] Prince Mir MD [address] [place] [address] [address] [place] [address] documented as of this encounter Visit Diagnoses Not on filedocumented in this encounter Care Teams Agent Spa Desk Relationship Specialty Start Date End Date Abrahan Mcgee MD [address] [place] [address] PCP - General Family Practice 04/03/24 documented as of this encounter
--- OUTSIDE RECORDS SUMMARY | 2024-06-26 10:13 | XMS_ITS | Encounter Summary ---
Author Organization [facility] Address [address] [place] [address] Care Team Providers Care Textile Coating Machine Operator Name Role Phone Abrahan Mcgee MD Primary Care Provider [phone] Encounter Details Date Type Department Care Team (Latest Contact Info) Description 08/15/2004 Outpatient Historical HIS [facility] Andre Vidal MD NO ADDRESS ON FILE HYPOPOTASSEMIA (Primary Dx) Social History Tobacco Use Types Packs/Day Years Used Date Smoking Tobacco: Never Assessed Comments Unknown Sex and Gender Information Value Date Recorded Sex Assigned at Not on file Legal Sex Female 3:33 AM MICROWAVE RADIO TECHNICIAN Gender Identity Not on file Sexual Orientation Not on file documented as of this encounter Plan of Treatment Upcoming Encounters Date Type Department Care Team (Late st Contact Info) Description 10/02/2024 11:45 AM CDT Office Visit [facility] Oncology and Hematology - [place] [address] [facility] [address] [place] [address] Prince Mir MD [address] [facility] [address] [place] [address] documented as of this encounter Procedures Procedure Name Priority Date/Time Associated Diagnosis Comments POTASSIUM LEVEL Routine 08/15/2004 11:22 AM CDT documented in this encounter Results * POTASSIUM LEVEL (08/15/2004 11:22 AM CDT) POTASSIUM 4.3 3.5 - 4.9 mmol/L INTERFACE SYSTEM 08/15/2004 11:2 2 AM CDT us Andre Ernst MD CHEMISTRY ORDERABLES Final Res ult INTERFACE SYSTEM Refer to clinic/hospital department documented in this encounter Visit Diagnoses Diagnosis Hypopotassemia- Primary documented in this encounter Care Teams Textile Coating Machine Operator Relationship Specialty Start Date End Date Abrahan Mcgee MD [address] [place] [address] PCP - General Family Practice 04/03/24 documented as of this encounter
--- OUTSIDE RECORDS SUMMARY | 2024-06-26 10:13 | XMS_ITS | Encounter Summary ---
Author Organization [facility] Address [address] [place] [address] Care Team Providers Care Sausage Cooker Name Role Phone Abrahan Mcgee MD Primary Care Provider [phone] Encounter Details Date Type Department Care Team (Late st Contact Info) Description 08/03/2001 Outpatient Historical HIS [facility] Berta Monae MD [address] [place] [address] Social History Tobacco Use Types Packs/Day Years Used Date Smoking Tobacco: Never Assessed Comments Unknown Sex and Gender Information Value Date Recorded Sex Assigned at Not on file Legal Sex Female 3:33 AM SILVERWARE CLEANER Gender Identity Not on file Sexual Orientation Not on file documented as of this encounter Plan of Treatment Upcoming Encounters Date Type Department Care Team (Late st Contact Info) Description 10/02/2024 11:45 AM CDT Office Visit [facility] Oncology and Hematology - [place] [address] [place] [address] Dr [address] [place] [address] Prince Mir MD [address] [facility] [address] [place] [address] documented as of this encounter Visit Diagnoses Not on filedocumented in this encounter Care Teams Sausage Cooker Relationship Specialty Start Date End Date Abrahan Mcgee MD [address] [place] [address] PCP - General Family Practice 04/03/24 documented as of this encounter
--- OUTSIDE RECORDS SUMMARY | 2024-06-26 10:13 | XMS_ITS | Encounter Summary ---
Author Organization [facility] Address [address] [place] [address] Care Team Providers Care Sports Complex Attendant Name Role Phone Krishna Medina MD Primary Care Provider [phone] Reason for Visit * Diagnostic Imaging (Routine) - Closed Specialty Diagnoses / Procedures Referred By Contac t Referred To Contact Procedures Breast Imaging Screening Outside Reference Aft, Sweta Gleason MD PhD [address] [place] [address] Phone: tel: fax: Referral ID Status Reason Start Date Expiration Date Visits Re quested Visits Authorized [id number] Closed 01/19/2022 02/18/2023 1 1 Encounter Details Date Type Department Care Team (Late st Contact Info) Description 07/23/2017 Hospital Encounter [facility] [address] [place], [place] [id number] Social History Tobacco Use Types Packs/Day Years [...] on file Legal 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:42 PM PLATEMAKER Gender Identity Not on file Sexual Orientation [...] CDT) Impressions [facility] - 01/19/2022 10:55 AM PLATEMAKER These images are for Reference purposes only and have not been reviewed by [facility]iology. There will be no report generated by a [facility] Radiologist. Narrative [facility] - 01/19/2022 10:55 AM PLATEMAKER EXAMINATION: Images For Reference Purposes Only us Sweta Conteh MD PhD IMG MAMMO PROCEDURES Final Result [facility] documented in this encounter Visit Diagnoses Not on filedocumented in this encounter Care Teams Sports Complex Attendant Relationship Specialty Start Date End Date Krishna Medina MD [address] [address] PCP - General 10/15/16 03/16/19 documented as of this encounter
--- OUTSIDE RECORDS SUMMARY | 2024-06-26 10:13 | XMS_ITS | Encounter Summary ---
Author Organization [facility] Healthcare Address [address] [place] [address] Care Team Providers Care Evp Strategy Name Role Phone Krishna Medina MD Primary Care Provider [phone] Reason for Visit * Diagnostic Imaging (Routine) - Closed Specialty Diagnoses / Procedures Referred By Contac t Referred To Contact Procedures Breast Imaging Screening Outside Reference Aft, Sweta Gleason MD PhD [address] [place] [address] Phone: tel: fax: Referral ID Status Reason Start Date Expiration Date Visits Re quested Visits Authorized [id number] Closed 01/19/2022 02/18/2023 1 1 Encounter Details Date Type Department Care Team (Late st Contact Info) Description 08/26/2018 Hospital Encounter [facility] [address] [place], [place] [id number] Social History Tobacco Use Types Packs/Day Years [...] on file Legal 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:42 PM EXCEPTIONAL CHILDREN'S TEACHER Gender Identity Not on file Sexual Orientation [...] CDT) Impressions [facility] - 01/19/2022 11:04 AM EXCEPTIONAL CHILDREN'S TEACHER These images are for Reference purposes only and have not been reviewed by [facility] Radiology. There will be no report generated by a [facility] Radiologist. Narrative [facility] - 01/19/2022 11:04 AM EXCEPTIONAL CHILDREN'S TEACHER EXAMINATION: Images For Reference Purposes Only us Sweta Conteh MD PhD IMG MAMMO PROCEDURES Final Result [facility] documented in this encounter Visit Diagnoses Not on filedocumented in this encounter Care Teams Evp Strategy Relationship Specialty Start Date End Date Krishna Medina MD [address] [address] PCP - General 10/15/16 03/16/19 documented as of this encounter
--- OUTSIDE RECORDS SUMMARY | 2024-06-26 10:13 | XMS_ITS | Encounter Summary ---
Author Organization [facility] Address [address] [place] [address] Care Team Providers Care Special Education Resource Teacher Name Role Phone Abrahan Mcgee MD Primary Care Provider [phone] Encounter Details Date Type Department Care Team (Late st Contact Info) Description 03/29/2002 Outpatient Historical HIS [facility] DE[facility] Andre Ernst MD NO ADDRESS ON FILE HEADACHE (Primary Dx) Social History Tobacco Use Types Packs/Day Years Used Date Smoking Tobacco: Never Assessed Comments Unknown Sex and Gender Information Value Date Recorded Sex Assigned at Not on file Legal Sex Female 3:33 AM PRISON KEEPER Gender Identity Not on file Sexual Orientation Not on file documented as of this encounter Plan of Treatment Upcoming Encounters Date Type Department Care Team (Late st Contact Info) Description 10/02/2024 11:45 AM CDT Office Visit [facility] Oncology and Hematology - [place] [address] [place] [address] [address] [place] [address] [place] [address] [place] [address] [address] [place] [address] documented as of this encounter Visit Diagnoses Diagnosis Headache(784.0)- Primary Headache documented in this encounter Care Teams Special Education Resource Teacher Relationship Specialty Start Date End Date Abrahan Mcgee MD [address] [place] [address] PCP - General Family Practice 04/03/24 documented as of this encounter
--- OUTSIDE RECORDS SUMMARY | 2024-06-26 10:13 | XMS_ITS | Encounter Summary ---
Author Organization [facility] Address [address] [place] [address] Care Team Providers Care Store Clerk Checker Name Role Phone Abrahan Mcgee MD Primary Care Provider [phone] Encounter Details Date Type Department Care Team (Late st Contact Info) Description 06/05/2004 Outpatient Historical HIS [facility] Andre Ernst MD NO ADDRESS ON FILE Social History Tobacco Use Types Packs/Day Years Used Date Smoking Tobacco: Never Assessed Comments Unknown Sex and Gender Information Value Date Recorded Sex Assigned at Not on file Legal Sex Female 3:33 AM DISTRIBUTION OPERATIONS MANAGER Gender Identity Not on file Sexual Orientation Not on file documented as of this encounter Plan of Treatment Upcoming Encounters Date Type Department Care Team (Late st Contact Info) Description 10/02/2024 11:45 AM CDT Office Visit [facility] Oncology and Hematology - [place] [address] [place] [address] [address] [place] [address] [place] [address] [place] [address] [address] [place] [address] documented as of this encounter Visit Diagnoses Not on filedocumented in this encounter Care Teams Store Clerk Checker Relationship Specialty Start Date End Date Abrahan Mcgee MD [address] [place] [address] PCP - General Family Practice 04/03/24 documented as of this encounter
--- OUTSIDE RECORDS SUMMARY | 2024-06-26 10:13 | XMS_ITS | Encounter Summary ---
Author Organization [facility] Address [address] [place] [address] Care Team Providers Care Coating And Baking Operator Name Role Phone Abrahan Mcgee MD Primary Care Provider [phone] Encounter Details Date Type Department Care Team (Late st Contact Info) Description 10/29/2000 Outpatient Historical HIS [facility] Andre Ernst MD NO ADDRESS ON FILE Social History Tobacco Use Types Packs/Day Years Used Date Smoking Tobacco: Never Assessed Comments Unknown Sex and Gender Information Value Date Recorded Sex Assigned at Not on file Legal Sex Female 3:33 AM DIRECTOR MULTIPLE SCLEROSIS CENTER Gender Identity Not on file Sexual Orientation Not on file documented as of this encounter Plan of Treatment Upcoming Encounters Date Type Department Care Team (Late st Contact Info) Description 10/02/2024 11:45 AM CDT Office Visit [facility] Oncology and Hematology - [place] [address] [place] [address] [address] [place] [address] [place] [address] [place] [address] [address] [place] [address] documented as of this encounter Visit Diagnoses Not on filedocumented in this encounter Care Teams Coating And Baking Operator Relationship Specialty Start Date End Date Abrahan Mcgee MD [address] [place] [address] PCP - General Family Practice 04/03/24 documented as of this encounter
--- OUTSIDE RECORDS SUMMARY | 2024-06-26 10:13 | XMS_ITS | Encounter Summary ---
Author Organization [facility] Healthcare Address [address] [place] [address] Care Team Providers Care Collection Systems Worker Name Role Phone Abrahan Mcgee MD Primary Care Provider [phone] Reason for Visit * Diagnostic Imaging (Routine) - Closed Specialty Diagnoses / Procedures Referred By Contac t Referred To Contact Procedures Breast Imaging Diagnostic Outside Reference Aft, Sweta Gleason MD PhD [address] [place] [address] Phone: tel: fax: Referral ID Status Reason Start Date Expiration Date Visits Re quested Visits Authorized [id number] Closed 01/19/2022 02/18/2023 1 1 Encounter Details Date Type Department Care Team (Late st Contact Info) Description 07/21/2016 Hospital Encounter [facility] [address] [place] [id number] Social History Tobacco Use Types Packs/Day Years [...] on file Legal 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:42 PM EPIC RADIANT ANALYST Gender Identity Not on file Sexual Orientation [...] CDT) Impressions [facility] - 01/19/2022 10:56 AM EPIC RADIANT ANALYST These images are for Reference purposes only and have not been reviewed by [facility] Radiology. There will be no report generated by a [facility] Radiologist. Narrative [facility] - 01/19/2022 10:56 AM EPIC RADIANT ANALYST EXAMINATION: Images For Reference Purposes Only us Sweta Conteh MD PhD IMG MAMMO PROCEDURES Final Result [facility] documented in this encounter Visit Diagnoses Not on filedocumented in this encounter Care Teams Collection Systems Worker Relationship Specialty Start Date End Date Abrahan Mcgee MD PCP - General 10/06/11 09/09/16 documented as of this encounter
--- OUTSIDE RECORDS SUMMARY | 2024-06-26 10:13 | XMS_ITS | Encounter Summary ---
Author Organization [facility] Address [address] [place] [address] Care Team Providers Care Concrete Form Setter And Finisher Name Role Phone Abrahan Mcgee MD Primary Care Provider [phone] Encounter Details Date Type Department Care Team (Latest Contact Info) Description 03/16/2002 Outpatient Historical HIS [facility] Andre Vidal MD NO ADDRESS ON FILE BENIGN HYPERTENSION (Primary Dx) Social History Tobacco Use Types Packs/Day Years Used Date Smoking Tobacco: Never Assessed Comments Unknown Sex and Gender Information Value Date Recorded Sex Assigned at Not on file Legal Sex Female 3:33 AM SIGNALING PROJECT ENGINEER Gender Identity Not on file Sexual Orientation Not on file documented as of this encounter Plan of Treatment Upcoming Encounters Date Type Department Care Team (Late st Contact Info) Description 10/02/2024 11:45 AM CDT Office Visit [facility] Oncology and Hematology - [place] [address] [place] [address] [address] [place] [address] [place] [address] [place] [address] [address] [place] [address] documented as of this encounter Visit Diagnoses Diagnosis Essential hypertension, benign- Primary documented in this encounter Care Teams Concrete Form Setter And Finisher Relationship Specialty Start Date End Date Abrahan Mcgee MD [address] [place] [address] PCP - General Family Practice 04/03/24 documented as of this encounter
--- OUTSIDE RECORDS SUMMARY | 2024-06-26 10:13 | XMS_ITS | Encounter Summary ---
Author Organization [facility] Address [address] [place] [address] Care Team Providers Care Hospital Carrier Name Role Phone Abrahan Mcgee MD Primary Care Provider [phone] Encounter Details Date Type Department Care Team (Late st Contact Info) Description 10/29/2000 Outpatient Historical HIS [facility] Andre Ernst MD NO ADDRESS ON FILE Social History Tobacco Use Types Packs/Day Years Used Date Smoking Tobacco: Never Assessed Comments Unknown Sex and Gender Information Value Date Recorded Sex Assigned at Not on file Legal Sex Female 3:33 AM TRUST VAULT CLERK Gender Identity Not on file Sexual Orientation Not on file documented as of this encounter Plan of Treatment Upcoming Encounters Date Type Department Care Team (Late st Contact Info) Description 10/02/2024 11:45 AM CDT Office Visit [facility] Oncology and Hematology - [place] [address] [place] [address] [address] [place] [address] [place] [address] [place] [address] [address] [place] [address] documented as of this encounter Visit Diagnoses Not on filedocumented in this encounter Care Teams Hospital Carrier Relationship Specialty Start Date End Date Abrahan Mcgee MD [address] [place] [address] PCP - General Family Practice 04/03/24 documented as of this encounter
--- OUTSIDE RECORDS SUMMARY | 2024-06-26 10:13 | XMS_ITS | Encounter Summary ---
Author Organization [facility] Address [address] [facility] Attn: Epic Prelude ADT [place] [address] Care Team Providers Care Ward Helper Name Role Phone Abrahan Mcgee MD Primary Care Provider Encounter Details Date Type Department Care Team (Late st Contact Info) Description 08/03/1994 Outpatient Historical Adnre Ernst MD NO ADDRESS ON FILE Social History Tobacco Use Types Packs/Day Years Used Date Smoking Tobacco: Never Assessed Comments Unknown Sex and Gender Information Value Date Recorded Sex Assigned at Not on file Legal Sex Female 3:33 AM CORE LOADER Gender Identity Not on file Sexual Orientation Not on file documented as of this encounter Plan of Treatment Upcoming Encounters Date Type Department Care Team (Late st Contact Info) Description 10/02/2024 11:45 AM CDT [facility] Visit [facility] Oncology and Hematology - [place] [address] [place] [address] [address] [place] [address] Prince Mir MD [address] [place] [address] [address] [place] [address] documented as of this encounter Visit Diagnoses Not on filedocumented in this encounter Care Teams Ward Helper Relationship Specialty Start Date End Date Abrahan Mcgee MD [address] [place] [address] PCP - General Family Practice 04/03/24 documented as of this encounter
--- OUTSIDE RECORDS SUMMARY | 2024-06-26 10:13 | XMS_ITS | Encounter Summary ---
Author Organization [facility] Address [address] [facility] Attn: Epic Prelude ADT [place] [address] Care Team Providers Care Home Health Care Social Worker Name Role Phone Abrahan Mcgee MD Primary Care Provider [phone] Encounter Details Date Type Department Care Team (Late st Contact Info) Description 08/08/1993 Outpatient Historical Andre Ernst MD NO ADDRESS ON FILE Social History Tobacco Use Types Packs/Day Years Used Date Smoking Tobacco: Never Assessed Comments Unknown Sex and Gender Information Value Date Recorded Sex Assigned at Not on file Legal Sex Female 3:33 AM MOLD BREAKER Gender Identity Not on file Sexual Orientation Not on file documented as of this encounter Plan of Treatment Upcoming Encounters Date Type Department Care Team (Late st Contact Info) Description 10/02/2024 11:45 AM CDT Office Visit [facility] Oncology and Hematology - [place] [address] [place] [address] [address] [place] [address] Prince Mir MD [address] [place] [address] [address] [place] [address] documented as of this encounter Visit Diagnoses Not on filedocumented in this encounter Care Teams Home Health Care Social Worker Relationship Specialty Start Date End Date Abrahan Mcgee MD [address] [place] [address] PCP - General Family Practice 04/03/24 documented as of this encounter
--- OUTSIDE RECORDS SUMMARY | 2024-06-26 10:13 | XMS_ITS | Encounter Summary ---
Author Organization [facility] Address [address] [place] [address] Care Team Providers Care Mammography Tech Name Role Phone Abrahan Mcgee MD Primary Care Provider [phone] Encounter Details Date Type Department Care Team (Latest Contact Info) Description 11/04/2001 Outpatient Historical HIS [facility] Andre Vidal MD NO ADDRESS ON FILE BENIGN HYPERTENSION (Primary Dx) Social History Tobacco Use Types Packs/Day Years Used Date Smoking Tobacco: Never Assessed Comments Unknown Sex and Gender Information Value Date Recorded Sex Assigned at Not on file Legal Sex Female 3:33 AM MANAGER TESTING Gender Identity Not on file Sexual Orientation Not on file documented as of this encounter Plan of Treatment Upcoming Encounters Date Type Department Care Team (Late st Contact Info) Description 10/02/2024 11:45 AM CDT Office Visit [facility] Oncology and Hematology - [place] [address] [place] [address] [address] [place] [address] [place] [address] [place] [address] [address] [place] [address] documented as of this encounter Visit Diagnoses Diagnosis Essential hypertension, benign- Primary documented in this encounter Care Teams Mammography Tech Relationship Specialty Start Date End Date Abrahan Mcgee MD [address] [place] [address] PCP - General Family Practice 04/03/24 documented as of this encounter
--- OUTSIDE RECORDS SUMMARY | 2024-06-26 10:13 | XMS_ITS | Encounter Summary ---
Author Organization [facility] Address [address] [place] [address] Care Team Providers Care Statistician Name Role Phone Abrahan Mcgee MD Primary Care Provider [phone] Encounter Details Date Type Department Care Team (Late st Contact Info) Description 11/26/2000 Outpatient Historical HIS [facility] Andre Ernst MD NO ADDRESS ON FILE Social History Tobacco Use Types Packs/Day Years Used Date Smoking Tobacco: Never Assessed Comments Unknown Sex and Gender Information Value Date Recorded Sex Assigned at Not on file Legal Sex Female 3:33 AM CPA TAX Gender Identity Not on file Sexual Orientation Not on file documented as of this encounter Plan of Treatment Upcoming Encounters Date Type Department Care Team (Late st Contact Info) Description 10/02/2024 11:45 AM CDT Office Visit [facility] Oncology and Hematology - [place] [address] [place] [address] [address] [place] [address] [place] [address] [place] [address] [address] [place] [address] documented as of this encounter Visit Diagnoses Not on filedocumented in this encounter Care Teams Statistician Relationship Specialty Start Date End Date Abrahan Mcgee MD [address] [place] [address] PCP - General Family Practice 04/03/24 documented as of this encounter
--- OUTSIDE RECORDS SUMMARY | 2024-06-26 10:13 | XMS_ITS | Encounter Summary ---
Author Organization [facility] Address [address] [place] [address] Care Team Providers Care Toddler Teacher Name Role Phone Abrahan Mcgee MD Primary Care Provider [phone] Encounter Details Date Type Department Care Team (Late st Contact Info) Description 11/19/2003 Outpatient Historical HIS [facility] Andre Ernst MD NO ADDRESS ON FILE Social History Tobacco Use Types Packs/Day Years Used Date Smoking Tobacco: Never Assessed Comments Unknown Sex and Gender Information Value Date Recorded Sex Assigned at Not on file Legal Sex Female 3:33 AM HOISTING ENGINEER PILE DRIVING Gender Identity Not on file Sexual Orientation Not on file documented as of this encounter Plan of Treatment Upcoming Encounters Date Type Department Care Team (Late st Contact Info) Description 10/02/2024 11:45 AM CDT Office Visit [facility] Oncology and Hematology - [place] [address] [place] [address] [address] [place] [address] [place] [address] [place] [address] [address] [place] [address] documented as of this encounter Visit Diagnoses Not on filedocumented in this encounter Care Teams Toddler Teacher Relationship Specialty Start Date End Date Abrahan Mcgee MD [address] [place] [address] PCP - General Family Practice 04/03/24 documented as of this encounter
--- OUTSIDE RECORDS SUMMARY | 2024-06-26 10:13 | XMS_ITS | Encounter Summary ---
Author Organization [facility] Address [address] [place] [address] Care Team Providers Care Sandblaster Glass Name Role Phone Abrahan Mcgee MD Primary Care Provider [phone] Encounter Details Date Type Department Care Team (Latest Contact Info) Description 08/15/2002 Outpatient Historical HIS [facility] Andre Vidal MD NO ADDRESS ON FILE JOINT PAIN-L/LEG (Primary Dx) Social History Tobacco Use Types Packs/Day Years Used Date Smoking Tobacco: Never Assessed Comments Unknown Sex and Gender Information Value Date Recorded Sex Assigned at Not on file Legal Sex Female 3:33 AM ROTARY DRUM DYER Gender Identity Not on file Sexual Orientation Not on file documented as of this encounter Plan of Treatment Upcoming Encounters Date Type Department Care Team (Late st Contact Info) Description 10/02/2024 11:45 AM CDT Office Visit [facility] Oncology and Hematology - [place] [address] [place] [address] [address] [place] [address] Prince Mir MD [address] [facility] [address] [place] [address] documented as of this encounter Visit Diagnoses Diagnosis Pain in joint, lower leg- Primary documented in this encounter Care Teams Sandblaster Glass Relationship Specialty Start Date End Date Abrahan Mcgee MD [address] [place] [address] PCP - General Family Practice 04/03/24 documented as of this encounter
--- OUTSIDE RECORDS SUMMARY | 2024-06-26 10:13 | XMS_ITS | Encounter Summary ---
Author Organization [facility] Address [address] [place] [address] Care Team Providers Care Shoe Cutter Name Role Phone Abrahan Mcgee MD Primary Care Provider [phone] Encounter Details Date Type Department Care Team (Latest Contact Info) Description 10/29/2000 Outpatient Historical HIS [facility] Ernst, Andre Guardado MD NO ADDRESS ON FILE Backache, unspecified (Primary Dx) Social History Tobacco Use Types Packs/Day Years Used Date Smoking Tobacco: Never Assessed Comments Unknown Sex and Gender Information Value Date Recorded Sex Assigned at Not on file Legal Sex Female 3:33 AM STEAM AND GAS TURBINE ASSEMBLER Gender Identity Not on file Sexual Orientation Not on file documented as of this encounter Plan of Treatment Upcoming Encounters Date Type Department Care Team (Late st Contact Info) Description 10/02/2024 11:45 AM CDT Office Visit [facility] Oncology and Hematology - [place] [address] [place] [address] [address] [place] [address] [place] [address] [place] [address] [address] [place] [address] documented as of this encounter Visit Diagnoses Diagnosis Backache, unspecified- Primary documented in this encounter Care Teams Shoe Cutter Relationship Specialty Start Date End Date Abrahan Mcgee MD [address] [place] [address] PCP - General Family Practice 04/03/24 documented as of this encounter
--- OUTSIDE RECORDS SUMMARY | 2024-06-26 10:13 | XMS_ITS | Encounter Summary ---
Author Organization [facility] Address [address] [place] [address] Care Team Providers Care Deburr Operator Name Role Phone Abrahan Mcgee MD Primary Care Provider [phone] Encounter Details Date Type Department Care Team (Latest Contact Info) Description 11/19/2003 Outpatient Historical HIS [facility] Andre Vidal MD NO ADDRESS ON FILE HYPOPOTASSEMIA (Primary Dx) Social History Tobacco Use Types Packs/Day Years Used Date Smoking Tobacco: Never Assessed Comments Unknown Sex and Gender Information Value Date Recorded Sex Assigned at Not on file Legal Sex Female 3:33 AM ROBOTICS SPECIALIST Gender Identity Not on file Sexual Orientation Not on file documented as of this encounter Plan of Treatment Upcoming Encounters Date Type Department Care Team (Late st Contact Info) Description 10/02/2024 11:45 AM CDT Office Visit [facility] Oncology and Hematology - [place] [address] [place] [address] [address] [place] [address] [place] [address] [place] [address] [address] [place] [address] documented as of this encounter Visit Diagnoses Diagnosis Hypopotassemia- Primary documented in this encounter Care Teams Deburr Operator Relationship Specialty Start Date End Date Abrahan Mcgee MD [address] [place] [address] PCP - General Family Practice 04/03/24 documented as of this encounter
--- OUTSIDE RECORDS SUMMARY | 2024-06-26 10:13 | XMS_ITS | Encounter Summary ---
Author Organization [facility] Address [address] [place] [address] Care Team Providers Care Monument Setter Name Role Phone Abrahan Mcgee MD Primary Care Provider [phone] Encounter Details Date Type Department Care Team (Late st Contact Info) Description 08/15/2002 Outpatient Historical HIS [facility] Andre Ernst MD NO ADDRESS ON FILE Social History Tobacco Use Types Packs/Day Years Used Date Smoking Tobacco: Never Assessed Comments Unknown Sex and Gender Information Value Date Recorded Sex Assigned at Not on file Legal Sex Female 3:33 AM MATERIAL REQUISITIONER Gender Identity Not on file Sexual Orientation Not on file documented as of this encounter Plan of Treatment Upcoming Encounters Date Type Department Care Team (Late st Contact Info) Description 10/02/2024 11:45 AM CDT Office Visit [facility] Oncology and Hematology - [place] [address] [place] [address] [address] [place] [address] [place] [address] [place] [address] [address] [place] [address] documented as of this encounter Visit Diagnoses Not on filedocumented in this encounter Care Teams Monument Setter Relationship Specialty Start Date End Date Abrahan Mcgee MD [address] [place] [address] PCP - General Family Practice 04/03/24 documented as of this encounter
--- OUTSIDE RECORDS SUMMARY | 2024-06-26 10:13 | XMS_ITS | Encounter Summary ---
Author Organization [facility] Address [address] [place] [address] Care Team Providers Care Bug Trimmer Name Role Phone Abrahan Mcgee MD Primary Care Provider [phone] Encounter Details Date Type Department Care Team (Latest Contact Info) Description 11/01/2003 Outpatient Historical HIS [facility] Sneed, Oscar Medeiros MD NO ADDRESS ON FILE SCREENING MAMM-MAILG NEOPL-OTHER (Primary Dx) Social History Tobacco Use Types Packs/Day Years Used Date Smoking Tobacco: Never Assessed Comments Unknown Sex and Gender Information Value Date Recorded Sex Assigned at Not on file Legal Sex Female 3:33 AM TOW TRUCK OPERATOR Gender Identity Not on file Sexual Orientation Not on file documented as of this encounter Plan of Treatment Upcoming Encounters Date Type Department Care Team (Late st Contact Info) Description 10/02/2024 11:45 AM CDT Office Visit [facility] Oncology and Hematology - [place] [address] [facility] [address] [place] [address] Prince Mir MD [address] [facility] [address] [place] [address] documented as of this encounter Visit Diagnoses Diagnosis Other screening mammogram- Primary documented in this encounter Care Teams Bug Trimmer Relationship Specialty Start Date End Date Abrahan Mcgee MD [address] [place] [address] PCP - General Family Practice 04/03/24 documented as of this encounter
--- OUTSIDE RECORDS SUMMARY | 2024-06-26 10:13 | XMS_ITS | Encounter Summary ---
Author Organization [facility] Address [address] [place] [address] Care Team Providers Care Corporate Licensed Broker Name Role Phone Abrahan Mcgee MD Primary Care Provider [phone] Encounter Details Date Type Department Care Team (Late st Contact Info) Description 04/12/2002 Outpatient Historical HIS [facility] Andre Ernst MD NO ADDRESS ON FILE DIAPHRAGMATIC HERNIA (Primary Dx) Social History Tobacco Use Types Packs/Day Years Used Date Smoking Tobacco: Never Assessed Comments Unknown Sex and Gender Information Value Date Recorded Sex Assigned at Not on file Legal Sex Female 3:33 AM CHEESEMAKER HELPER Gender Identity Not on file Sexual Orientation Not on file documented as of this encounter Plan of Treatment Upcoming Encounters Date Type Department Care Team (Late st Contact Info) Description 10/02/2024 11:45 AM CDT Office Visit [facility] Oncology and Hematology - [place] [address] [place] [address] [address] [place] [address] [place] [address] [place] [address] [address] [place] [address] documented as of this encounter Visit Diagnoses Diagnosis Diaphragmatic hernia without mention of obstruction or gangrene- Primary documented in this encounter Care Teams Corporate Licensed Broker Relationship Specialty Start Date End Date Abrahan Mcgee MD [address] [place] [address] PCP - General Family Practice 04/03/24 documented as of this encounter
--- OUTSIDE RECORDS SUMMARY | 2024-06-26 10:13 | XMS_ITS | Encounter Summary ---
Author Organization [facility] Address [address] [facility] Attn: Epic Prelude ADT [place] [address] Care Team Providers Care Pool Technician Name Role Phone Abrahan Mcgee MD Primary Care Provider [phone] Encounter Details Date Type Department Care Team (Late st Contact Info) Description 08/03/1994 Outpatient Historical Andre Ernst MD NO ADDRESS ON FILE Social History Tobacco Use Types Packs/Day Years Used Date Smoking Tobacco: Never Assessed Comments Unknown Sex and Gender Information Value Date Recorded Sex Assigned at Not on file Legal Sex Female 3:33 AM MAYONNAISE MIXER Gender Identity Not on file Sexual Orientation Not on file documented as of this encounter Plan of Treatment Upcoming Encounters Date Type Department Care Team (Late st Contact Info) Description 10/02/2024 11:45 AM CDT Office Visit [facility] Oncology and Hematology - [place] [address] [place] [address] [address] [place] [address] Prince Mir MD [address] [place] [address] [address] [place] [address] documented as of this encounter Visit Diagnoses Not on filedocumented in this encounter Care Teams Pool Technician Relationship Specialty Start Date End Date Abrahan Mcgee MD [address] [place] [address] PCP - General Family Practice 04/03/24 documented as of this encounter
--- OUTSIDE RECORDS SUMMARY | 2024-06-26 10:13 | XMS_ITS | Encounter Summary ---
Author Organization [facility] Address [address] [place] [address] Care Team Providers Care Oracle Consultant Name Role Phone Abrahan Mcgee MD Primary Care Provider [phone] Encounter Details Date Type Department Care Team (Late st Contact Info) Description 11/04/2001 Outpatient Historical HIS [facility] INTERN[facility] Andre Ernst MD NO ADDRESS ON FILE Social History Tobacco Use Types Packs/Day Years Used Date Smoking Tobacco: Never Assessed Comments Unknown Sex and Gender Information Value Date Recorded Sex Assigned at Not on file Legal Sex Female 3:33 AM SIGN WRITER LETTERER OR PAINTER Gender Identity Not on file Sexual Orientation Not on file documented as of this encounter Plan of Treatment Upcoming Encounters Date Type Department Care Team (Late st Contact Info) Description 10/02/2024 11:45 AM CDT Office Visit [facility] Oncology and Hematology - [place] [address] [place] [address] [address] [place] [address] [place] [address] [place] [address] [address] [place] [address] documented as of this encounter Visit Diagnoses Not on filedocumented in this encounter Care Teams Oracle Consultant Relationship Specialty Start Date End Date Abrahan Mcgee MD [address] [place] [address] PCP - General Family Practice 04/03/24 documented as of this encounter
--- OUTSIDE RECORDS SUMMARY | 2024-06-26 10:13 | XMS_ITS | Encounter Summary ---
Author Organization [facility] Address [address] [place] [address] Care Team Providers Care Publishing Director Name Role Phone Abrahan Mcgee MD Primary Care Provider [phone] Encounter Details Date Type Department Care Team (Late st Contact Info) Description 08/15/2003 Outpatient Historical HIS [facility] Meryl Perry MD [address] [address] ABDOMINAL PAIN RUQ (Primary Dx) Social History Tobacco Use Types Packs/Day Years Used Date Smoking Tobacco: Never Assessed Comments Unknown Sex and Gender Information Value Date Recorded Sex Assigned at Not on file Legal Sex Female 3:33 AM SENIOR ADULTS DIRECTOR Gender Identity Not on file Sexual Orientation Not on file documented as of this encounter Plan of Treatment Upcoming Encounters Date Type Department Care Team (Late st Contact Info) Description 10/02/2024 11:45 AM CDT Office Visit [facility] Oncology and Hematology - [place] [address] [facility] [address] [place] [address] Prince Mir MD [address] [facility] [address] [place] [address] documented as of this encounter Visit Diagnoses Diagnosis Abdominal pain, right upper quadrant- Primary documented in this encounter Care Teams Publishing Director Relationship Specialty Start Date End Date Abrahan Mcgee MD [address] [place] [address] PCP - General Family Practice 04/03/24 documented as of this encounter
--- OUTSIDE RECORDS SUMMARY | 2024-06-26 10:13 | XMS_ITS | Clinical Summary ---
Author Organization [facility] Address [address] [place] [address] Care Team Providers Care Global Sales Executive Name Role Phone Krishna Medina MD Unavailable [phone] Lina Yates NP Unavailable [phone] Abrahan Mcgee MD Primary Care Provider [phone] Allergies Active Allergy Reactions Criticality Noted Date Comments Amoxicillin Itching Low Azithromycin Itching Low 07/11/2018 Codeine Esomeprazole Itching,Other (See comments) Low Reaction: PRURITIS Iodinated Contrast Media Omeprazole Itching,Nausea & Vomiting Low Pantoprazole Itching,Other (See comments) Low Reaction: PRURITIS Rabeprazole Itching,Other (See comments) Low Reaction: PRURITIS Medications amLODIPine (NORVASC) 10 mg tablet Take 1 tablet (10 mg total) by mouth daily 3 9 Active pancrelipase (ZENPEP) 25,000 units of lipase capsule,delayed release(DR/EC) Take as directed Active rOPINIRole (REQUIP) 2 mg tablet Take 1 tablet (2 mg total) by mouth nightly at bedtime. 1 9 Active diclofenac sodium (VOLTAREN) 1 % gel 2 times daily Active clorazepate (TRANXENE) 7.5 mg tablet TAKE 1 TABLET 3 TIMES DAILY. as needed Active loratadine (CLARITIN) 10 mg tablet Take 1 tablet (10 mg total) by mouth daily 0 9 Active aluminum hydroxide-magnes ium trisilicate (GAVISCON) 80-14.2 mg tablet,chewable TAKE DIRECTED. Active multivitamin tablet daily 8 Active azelastine-fluti casone 137-50 mcg/spray spray,non-aeroso l Administer into affected nostril(s) Active vitamin E (AQUASOL E) 1,000 unit capsule Take 1 capsule (1,000 Units total) by mouth daily Active cholecalciferol (VITAMIN D-3) 1,000 unit Take 1 tablet/capsule (1,000 Units total) by mouth daily Active peg 400-propylene glycol (SYSTANE) 0.4-0.3 % ophthalmic solution Administer 1 drop into both eyes 3 (three) times a day Active montelukast (SINGULAIR) 10 mg tablet Take 1 tablet (10 mg total) by mouth nightly at bedtime 4 Active ondansetron (ZOFRAN) 4 mg tablet TAKE 1 TO 2 TABLETS BY MOUTH EVERY 8 HOURS NEEDED FOR NAUSEA AND VOMITING 4 Active sulfamethoxazole -trimethoprim (BACTRIM DS) 800-160 mg per tablet Take 1 tablet by mouth every 12 (twelve) hours 4 Active trospium (SANCTURA) 20 mg tablet 4 Active rOPINIRole (REQUIP) 4 mg tablet Take 1 tablet (4 mg total) by mouth nightly at bedtime 4 Active gabapentin (NEURONTIN) 100 mg capsule TAKE 1 CAPSULE BY MOUTH TWICE DAILY MAY INCREASE TO 2 CAPSULES 2-3 TIMES A DAY IF NECESSARY Active pregabalin (LYRICA) 25 mg capsule Take 1 capsule (25 mg total) by mouth 2 (two) times a day 5 Active anastrozole (ARIMIDEX) 1 mg tablet Take 1 tablet (1 mg total) by mouth daily 5 Active Active Problems Problem Noted Date Diagnosed Date Mallet finger of left hand 06/11/2022 Left hand pain 06/11/2022 Malignant neoplasm of female breast 02/08/2022 Corneal abrasion, left, initial encounter 2021 Assessment & Plan (02/02/2022 4:10 PM SIMPLEX PRINTER INSTALLER): Well healed. Removed BCL today without complications. Continue vigamox QID OS x 2 days then stop. Pt to return to clinic with new or worsening vision changes or ocular pain. Continue followup for ARMD with Dr. Grady. Mammogram abnormal 01/23/2022 Gastritis 09/18/2019 HTN (hypertension), benign 09/18/2019 Non-seasonal allergic rhinitis due to pollen Restless leg syndrome 09/18/2019 Vaginal atrophy 09/18/2019 Vitreous floaters of right eye 04/28/2019 Assessment & Plan (04/28/2019 12:28 PM SIMPLEX PRINTER INSTALLER): Monitor. Discussed signs and symptoms of Retinal tears or detachments. Pt understands to call immediately if noted. Subjective vision disturbance 04/28/2019 Assessment & Plan (04/28/2019 12:29 PM SIMPLEX PRINTER INSTALLER): Seeing pink dots No hemorrhages or retinal tears on DFE today ou. Monitor. If no improvement (NI) 1 month suggest re-eval. 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 Continue Ocuvite AREDs 2. Continue monitoring vision with Amsler grid. Pt non smoker RTC IN 1 year with DFE. Assessment & Plan (12/16/2022 2:32 PM CDT): Patient returned to clinic earlier than scheduled regarding changes to amsler grid OD. Stable OCT and vision today with no e/o fluid. Continue Ocuvite AREDs 2 Continue monitoring vision with Amsler grid Pt non smoker RTC as scheduled on 04/15/2023 with Mac OCT, sooner prn for acute vision changes. Assessment & Plan (04/28/2019 12:27 PM SIMPLEX PRINTER INSTALLER): Monitor closely Retinal hole of left eye 02/11/2018 Assessment & Plan (06/06/2024 4:46 PM CDT): H/o PPV OS for ERM ([place]). Appears stable. 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 6th Floor, [address] [facility] [place] [place] [address] Denia Lancaster, OD Intermediate stage nonexudative age-related macular degeneration of both eyes (Primary Dx); Retinal hole of left eye 06/06/2024 11:20 AM CDT Imaging Exam [facility] Ophthalmology [facility] [address] [id number] Intermediate stage nonexudative age-related macular degeneration of both eyes from Last 3 Months Surgical History Surgery Date Site/Laterality Comments OTHER SURGICAL HISTORY 03/01/2009 - 02/28/2010 Hemorrhoids: surgery HERNIA REPAIR 03/01/2007 - 02/29/2008 Hernia repair OTHER SURGICAL HISTORY 03/01/2003 - 02/29/2004 Pancreatitis: ERCP with sphincterotomy CHOLECYSTECTOMY 03/01/1997 - 02/28/1998 Cholecystectomy CATARACT EXTRACTION Bilateral ERCP UPPER GASTROINTESTINAL ENDOSCOPY TOTAL HIP ARTHROPLASTY Right CATARACT EXTRACTION, BILATERAL INTRAOCULAR LENS INSERTION BREAST BIOPSY 01/27/2022 Right Medical History Medical History Date Comments Hx Other Medical Hemorrhoids Pancreatitis 2003 Pancreatitis Hypertension Hypertension Macular degeneration Nonexudativ e GERD (gastroesophageal reflux disease) Chest pain Abdominal pain Cataract Family History Medical History Relation Name Comments Kidney cancer Brother Cancer, kidney ; Brain cancer Father cancer, brain; Other Other 1 No family histo ry of Cancer, colon; Other Other 2 No family histo ry of Crohn's disease; Other Other 3 No family histo ry of Liver disease; Other Other 4 No family histo ry of Pancreatitis; Other Other 5 No family histo ry of Ulcerative colitis; Brain cancer Sister 1 cancer, brain; Diabetes Sister 2 Diabetes mellit us; Lymphoma Sister 3 Lymphoma; Stomach cancer Sister 4 Family histor y of malignant neoplasm of stomach - (Added by TW Conv) Diabetes Sister 5 Family history of diabetes mellitus - (Added by TW Conv) Relation Name Status Comments Brother Father Other 1 Other 2 Other 3 Other 4 Other 5 Sister 1 Sister 2 Sister 3 Sister 4 Sister 5 Social History Tobacco Use Types Packs/Day Years Used Date Smoking Tobacco: Former Smokeless Tobacco: Former Tobacco Cessation:Counseling Given: Not Answered Alcohol Use Standard Drinks/Week Comments No 0 [...] on file Legal 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:42 PM SIMPLEX PRINTER INSTALLER Gender Identity Not on file Sexual Orientation Not on file Obstetrics History Last Filed Vital Signs Vital Sign Reading Time Taken Comments Blood Pressure 131/63 11/10/2021 11:34 AM CDT Pulse 59 11/10/2021 11:34 AM CDT Temperature 36 C (96.8 F) 11/10/2021 10:32 AM CDT Respiratory Rate 20 11/10/2021 11:3 4 AM CDT Oxygen Saturation 100% 11/10/2021 11: 34 AM CDT Inhaled Oxygen Concentration - - Weight 54.4 kg (119 lb 14.9 oz) 08/17/2022 3:31 PM CDT Height 149.9 cm (4' 11.02 ) 08/17/2022 3:31 PM C DT Body Mass Index 24.21 08/17/2022 3:31 PM CDT Plan of Treatment Health Maintenance Due Date Last Done Comments Depression Screening 1935 Hepatitis B Screening 10/12/1953 Zoster Vaccine (1 of 2) 10/12/1954 Well Visit 65+ 10/12/2000 DTaP/Tdap/Td Vaccine (1 - Tdap) 10/18/2014 5 Fall Risk Assessment 11/10/2022 11/10/2021 Influenza Vaccine (Season Ended) 2024 11/10/2019, 01/20/2019, 12/14/2017, Additional history exists Pneumococcal vaccine 65+ Completed 019, 11/29/2016, 10/10/2014 Procedures Procedure Name Priority Date/Time Associated Diagnosis Comments OCT, RETINA - OU - BOTH EYES Routine 06/06/2024 10:59 AM CDT Intermediate stage nonexudative age-related macular degeneration of both eyes from Last 3 Months Results * OCT, Retina - OU - Both Eyes (06/06/2024 10:59 AM CDT) Anatomical Region Laterality Modality Head Other Narrative 06/23/2024 8:24 AM CDT Right Eye Quality was good. Scan locations included subfoveal. Progression has been stable. Findings include normal foveal contour. Left Eye Quality was good. Scan locations included subfoveal. Progression has been stable. Findings include abnormal foveal contour. Notes Right eye (OD): drusen >>temporally, no subretinal fluid (SRF) Left eye (OS): erm superior temp arcade, [facility] Denia Lancaster OD OPHTH TOMOGRAPHY Final Res ult from Last 3 Months Insurance AETNA MEDICARE AETNA MEDICARE AETNA MEDICARE Advance Directives For more information, please contact: [phone] * Full Code (Latest Code Status on File) Date Activated Date Inactivated Comments 11/10/2021 10:25 AM 11/10/2021 3:44 PM * Full Code Date Activated Date Inactivated Comments 09/06/2019 9:17 AM 09/06/2019 3:17 PM * Full Code Date Activated Date Inactivated Comments 07/11/2018 9:22 AM 07/11/2018 4:10 PM Care Teams Global Sales Executive Relationship Specialty Start Date End Date Abrahan Mcgee MD [address] [place] [address] PCP - General Family Medicine 06/06/24 Krishna Medina MD [address] [address] 03/17/19 Lina Yates NP [address] [address] Nurse Practitioner 11/12/22
--- OUTSIDE RECORDS SUMMARY | 2024-06-26 10:13 | XMS_ITS | Encounter Summary ---
Author Organization [facility] Address [address] [place] [address] Care Team Providers Care Supervisor Mold Construction Name Role Phone Abrahan Mcgee MD Primary Care Provider [phone] Encounter Details Date Type Department Care Team (Late st Contact Info) Description 03/22/2001 Outpatient Historical HIS [facility] INTERNISTS Andre Ernst MD NO ADDRESS ON FILE Social History Tobacco Use Types Packs/Day Years Used Date Smoking Tobacco: Never Assessed Comments Unknown Sex and Gender Information Value Date Recorded Sex Assigned at Not on file Legal Sex Female 3:33 AM CERTIFIED NURSES AIDE Gender Identity Not on file Sexual Orientation Not on file documented as of this encounter Plan of Treatment Upcoming Encounters Date Type Department Care Team (Late st Contact Info) Description 10/02/2024 11:45 AM CDT Office Visit [facility] Oncology and Hematology - [place] [address] [place] [address] [address] [place] [address] [place] [address] [place] [address] [address] [place] [address] documented as of this encounter Visit Diagnoses Not on filedocumented in this encounter Care Teams Supervisor Mold Construction Relationship Specialty Start Date End Date Abrahan Mcgee MD [address] [place] [address] PCP - General Family Practice 04/03/24 documented as of this encounter
--- OUTSIDE RECORDS SUMMARY | 2024-06-26 10:13 | XMS_ITS | Encounter Summary ---
Author Organization [facility] Address [address] [place] [address] Care Team Providers Care Interior Design Professor Name Role Phone Abrahan Mcgee MD Primary Care Provider [phone] Encounter Details Date Type Department Care Team (Latest Contact Info) Description 11/26/2000 Outpatient Historical HIS [facility] Andre Vidal MD NO ADDRESS ON FILE Essential hypertension, benign (Primary Dx) Social History Tobacco Use Types Packs/Day Years Used Date Smoking Tobacco: Never Assessed Comments Unknown Sex and Gender Information Value Date Recorded Sex Assigned at Not on file Legal Sex Female 3:33 AM FUNCTIONAL TESTER Gender Identity Not on file Sexual Orientation Not on file documented as of this encounter Plan of Treatment Upcoming Encounters Date Type Department Care Team (Late st Contact Info) Description 10/02/2024 11:45 AM CDT Office Visit [facility] Oncology and Hematology - [place] [address] [place] [address] [address] [place] [address] [place] [address] [place] [address] [address] [place] [address] documented as of this encounter Visit Diagnoses Diagnosis Essential hypertension, benign- Primary documented in this encounter Care Teams Interior Design Professor Relationship Specialty Start Date End Date Abrahan Mcgee MD [address] [place] [address] PCP - General Family Practice 04/03/24 documented as of this encounter
--- OUTSIDE RECORDS SUMMARY | 2024-06-26 10:13 | XMS_ITS | Encounter Summary ---
Author Organization [facility] Address [address] [place] [address] Care Team Providers Care Felt Puller Name Role Phone Abrahan Mcgee MD Primary Care Provider [phone] Encounter Details Date Type Department Care Team (Latest Contact Info) Description 02/24/2002 Outpatient Historical HIS [facility] Andre Vidal MD NO ADDRESS ON FILE CHRONIC SINUSITIS NOS (Primary Dx) Social History Tobacco Use Types Packs/Day Years Used Date Smoking Tobacco: Never Assessed Comments Unknown Sex and Gender Information Value Date Recorded Sex Assigned at Not on file Legal Sex Female 3:33 AM AIRCRAFT LANDING GEAR INSPECTOR Gender Identity Not on file Sexual Orientation Not on file documented as of this encounter Plan of Treatment Upcoming Encounters Date Type Department Care Team (Late st Contact Info) Description 10/02/2024 11:45 AM CDT Office Visit [facility] Oncology and Hematology - [place] [address] [place] [address] [address] [place] [address] [place] [address] [place] [address] [address] [place] [address] documented as of this encounter Visit Diagnoses Diagnosis Unspecified sinusitis (chronic)- Primary documented in this encounter Care Teams Felt Puller Relationship Specialty Start Date End Date Abrahan Mcgee MD [address] [place] [address] PCP - General Family Practice 04/03/24 documented as of this encounter
--- OUTSIDE RECORDS SUMMARY | 2024-06-26 10:13 | XMS_ITS | Referral Summary ---
Author Organization [facility] Address [address] [facility] [place] [address] Care Team Providers Care Flarer Name Role Phone Krishna Medina MD Unavailable [phone] Lina Yates NP Unavailable [phone] Abrahan Mcgee MD Primary Care Provider Encounters Date Type Department Care Team Description 06/06/2024 11:20 AM CDT Imaging Exam [facility] Ophthalmology [address] [facility] [address] [place] [id number] Intermediate stage nonexudative age-related macular degeneration of both eyes 06/06/2024 11:30 AM CDT Office Visit [facility] Ophthalmology [address] [facility] 6th Floor, [address] [facility] [place] [address] Denia Lancaster, OD Intermediate stage nonexudative age-related macular degeneration of both eyes (Primary Dx); Retinal hole of left eye from Last 3 Months Allergies Active Allergy Reactions Criticality Noted Date [...] 2021 Assessment & Plan (02/02/2022 4:10 PM FORENSIC SPECIALIST): Well healed. Removed BCL today without complications. [...] 04/28/2019 Assessment & Plan (04/28/2019 12:28 PM FORENSIC SPECIALIST): Monitor. Discussed signs and symptoms of Retinal tears or detachments. Pt understands to call immediately if noted. Subjective vision disturbance 04/28/2019 Assessment & Plan (04/28/2019 12:29 PM FORENSIC SPECIALIST): Seeing pink dots No hemorrhages or retinal [...] changes. Assessment & Plan (04/28/2019 12:27 PM FORENSIC SPECIALIST): Monitor closely Retinal hole of left eye 02/11/2018 Assessment & Plan (06/06/2024 4:46 PM CDT): H/o PPV OS for ERM ([place]). Appears stable. 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 Esophageal dysmotility 07/15/2013 Overview (09/13/2018): GERD (gastroesophageal reflux disease) Polyp of colon 11/18/2007 Overview (06/04/2016): Colon polyp Diverticulosis of intestine 04/02/2007 Overview (06/03/2016): Diverticulosis Right upper quadrant abdominal pain 04/02/2003 Overview (06/03/2016): RUQ pain Chronic pancreatitis 04/02/2003 Overview (06/03/2016): Pancreatitis chronic Social History Tobacco Use Types Packs/Day Years [...] on file Legal 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:42 PM FORENSIC SPECIALIST Gender Identity Not on file Sexual [...] 08/17/2022 3:31 PM CDT Plan of Treatment Not on file Procedures Procedure Name Priority Date/Time Associated Diagnosis [...] from Last 3 Months Insurance [employer] MEDICARE [facility] MEDICARE [facility] MEDICARE Advance Directives For more information, please contact: [phone] * Full Code (Latest Code Status on File) Date Activated Date Inactivated Comments 11/10/2021 10:25 AM 11/10/2021 3:44 PM * Full Code Date Activated Date Inactivated Comments 09/06/2019 9:17 AM 09/06/2019 3:17 PM * Full Code Date Activated Date Inactivated Comments 07/11/2018 9:22 AM 07/11/2018 4:10 PM Care Teams Flarer Relationship Specialty Start Date End Date Abrahan Mcgee MD [address] [place] [address] PCP - General Family Medicine 06/06/24 Krishna Medina MD [address] [address] 03/17/19 Lina Yates NP [address] [address] Nurse Practitioner 11/12/22
--- OUTSIDE RECORDS SUMMARY | 2024-06-26 10:13 | XMS_ITS | Encounter Summary ---
Author Organization [facility] Address [address] [place] [address] Care Team Providers Care Real Estate Photographer Name Role Phone Abrahan Mcgee MD Primary Care Provider [phone] Encounter Details Date Type Department Care Team (Latest Contact Info) Description 08/15/2003 Outpatient Historical [facility] Andre Vidal MD NO ADDRESS ON FILE HYPOPOTASSEMIA (Primary Dx) Social History Tobacco Use Types Packs/Day Years Used Date Smoking Tobacco: Never Assessed Comments Unknown Sex and Gender Information Value Date Recorded Sex Assigned at Not on file Legal Sex Female 3:33 AM VISITOR SERVICES REPRESENTATIVE Gender Identity Not on file Sexual Orientation Not on file documented as of this encounter Plan of Treatment Upcoming Encounters Date Type Department Care Team (Late st Contact Info) Description 10/02/2024 11:45 AM CDT Office Visit [facility] Oncology and Hematology - [place] [address] [place] [address] [address] [place] [address] [place] [address] [place] [address] [address] [place] [address] documented as of this encounter Visit Diagnoses Diagnosis Hypopotassemia- Primary documented in this encounter Care Teams Real Estate Photographer Relationship Specialty Start Date End Date Abrahan Mcgee MD [address] [place] [address] PCP - General Family Practice 04/03/24 documented as of this encounter
--- OUTSIDE RECORDS SUMMARY | 2024-06-26 10:13 | XMS_ITS | Encounter Summary ---
Author Organization [facility] Address [address] [place] [address] Care Team Providers Care Group Home Manager Name Role Phone Abrahan Mcgee MD Primary Care Provider [phone] Encounter Details Date Type Department Care Team (Late st Contact Info) Description 03/16/2002 Outpatient Historical HIS [facility] Andre Ernst MD NO ADDRESS ON FILE Social History Tobacco Use Types Packs/Day Years Used Date Smoking Tobacco: Never Assessed Comments Unknown Sex and Gender Information Value Date Recorded Sex Assigned at Not on file Legal Sex Female 3:[address] JUST[address] Gender Identity Not on file Sexual Orientation Not on file documented as of this encounter Plan of Treatment Upcoming Encounters Date Type Department Care Team (Late st Contact Info) Description 10/02/2024 11:45 AM CDT Office Visit [facility] Oncology and Hematology - [place] [address] [place] [address] [address] [place] [address] [place] [address] [place] [address] [address] [place] [address] documented as of this encounter Visit Diagnoses Not on filedocumented in this encounter Care Teams Group Home Manager Relationship Specialty Start Date End Date Abrahan Mcgee MD [address] [place] [address] PCP - General Family Practice 04/03/24 documented as of this encounter
--- OUTSIDE RECORDS SUMMARY | 2024-06-26 10:13 | XMS_ITS | Encounter Summary ---
Author Organization [facility] Address [address] [place] [address] Care Team Providers Care Java Developer Name Role Phone Abrahan Mcgee MD Primary Care Provider [phone] Encounter Details Date Type Department Care Team (Late st Contact Info) Description 02/24/2002 Outpatient Historical HIS [facility] Andre Ernst MD NO ADDRESS ON FILE Social History Tobacco Use Types Packs/Day Years Used Date Smoking Tobacco: Never Assessed Comments Unknown Sex and Gender Information Value Date Recorded Sex Assigned at Not on file Legal Sex Female 3:33 AM MARKETING COMMUNICATIONS LEADER Gender Identity Not on file Sexual Orientation Not on file documented as of this encounter Plan of Treatment Upcoming Encounters Date Type Department Care Team (Late st Contact Info) Description 10/02/2024 11:45 AM CDT Office Visit [facility] Oncology and Hematology - [place] [address] [place] [address] [address] [place] [address] [place] [address] [place] [address] [address] [place] [address] documented as of this encounter Visit Diagnoses Not on filedocumented in this encounter Care Teams Java Developer Relationship Specialty Start Date End Date Abrahan Mcgee MD [address] [place] [address] PCP - General Family Practice 04/03/24 documented as of this encounter
--- OUTSIDE RECORDS SUMMARY | 2024-06-26 10:14 | XMS_ITS | Encounter Summary ---
Author Organization [facility] Address [address] [place] [address] Care Team Providers Care Public Works Inspector Name Role Phone Abrahan Mcgee MD Primary Care Provider [phone] Encounter Details Date Type Department Care Team (Latest Contact Info) Description 10/17/2002 Outpatient Historical HIS [facility] Andre Vidla MD NO ADDRESS ON FILE SOLITARY CYST OF BREAST (Primary Dx) Social History Tobacco Use Types Packs/Day Years Used Date Smoking Tobacco: Never Assessed Comments Unknown Sex and Gender Information Value Date Recorded Sex Assigned at Not on file Legal Sex Female 3:33 AM MEDICAL RECORD LIBRARIANS TEACHER Gender Identity Not on file Sexual Orientation Not on file documented as of this encounter Plan of Treatment Upcoming Encounters Date Type Department Care Team (Late st Contact Info) Description 10/02/2024 11:45 AM CDT Office Visit [facility] Oncology and Hematology - [place] [address] [place] [address] [address] [place] [address] [place] [address] [place] [address] [address] [place] [address] documented as of this encounter Visit Diagnoses Diagnosis Solitary cyst of breast- Primary documented in this encounter Care Teams Public Works Inspector Relationship Specialty Start Date End Date Abrahan Mcgee MD [address] [place] [address] PCP - General Family Practice 04/03/24 documented as of this encounter
--- OUTSIDE RECORDS SUMMARY | 2024-06-26 10:14 | XMS_ITS | Encounter Summary ---
Author Organization [facility] Address 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 Gender Identity Not on file Sexual Orientation Not on file documented as of this encounter Plan of Treatment Upcoming Encounters Date Type Department Care Team (Late st Contact Info) Description 10/02/2024 11:45 AM CDT Office Visit [facility] Oncology and Hematology - [place] [address] [place] [address] [address] [place] [address] [place] [address] [place] [address] [address] [place] [address] documented as of this encounter Visit Diagnoses Not on filedocumented in this encounter Care Teams Mobile Lounge Driver Or Operator Relationship Specialty Start Date End Date Abrahan Mcgee MD [address] [place] [address] PCP - General Family Practice 04/03/24 documented as of this encounter
--- OUTSIDE RECORDS SUMMARY | 2024-06-26 10:14 | XMS_ITS | Encounter Summary ---
Author Organization [facility] Address 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 Gender Identity Not on file Sexual Orientation Not on file documented as of this encounter Plan of Treatment Upcoming Encounters Date Type Department Care Team (Late st Contact Info) Description 10/02/2024 11:45 AM CDT Office Visit [facility] Oncology and Hematology - [place] [address] [place] [address] [address] [place] [address] [place] [address] [place] [address] [address] [place] [address] documented as of this encounter Visit Diagnoses Diagnosis Pure hypercholesterolemia- Primary documented in this encounter Care Teams Marketing Clerk Relationship Specialty Start Date End Date Abrahan Mcgee MD [address] [place] [address] PCP - General Family Practice 04/03/24 documented as of this encounter
--- OUTSIDE RECORDS SUMMARY | 2024-06-26 10:14 | XMS_ITS | Encounter Summary ---
Author Organization [facility] Address [address] [place] [address] Care Team Providers Care Mechanical Design Technician Name Role Phone Abrahan Mcgee MD Primary Care Provider [phone] Encounter Details Date Type Department Care Team (Late st Contact Info) Description 02/24/2005 Outpatient Historical [facility] Adult Hospitalists [facility] [address] [place] [address] Alcon Valadez MD [address] [place] [address] Social History Tobacco Use Types Packs/Day Years Used Date Smoking Tobacco: Never Assessed Comments Unknown Sex and Gender Information Value Date Recorded Sex Assigned at Not on file 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 Gender Identity Not on file Sexual Orientation Not on file documented as of this encounter Plan of Treatment Upcoming Encounters Date Type Department Care Team (Late st Contact Info) Description 10/02/2024 11:45 AM CDT Office Visit [facility] Oncology and Hematology - [place] [address] [facility] [address] [place] [address] Prince Mir MD [address] [facility] [address] [place] [address] documented as of this encounter Visit Diagnoses Not on filedocumented in this encounter Care Teams Mechanical Design Technician Relationship Specialty Start Date End Date Abrahan Mcgee MD [address] [place] [address] PCP - General Family Practice 04/03/24 documented as of this encounter
--- OUTSIDE RECORDS SUMMARY | 2024-06-26 10:14 | XMS_ITS | Encounter Summary ---
Author Organization [facility] Address 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 Gender Identity Not on file Sexual Orientation Not on file documented as of this encounter Plan of Treatment Upcoming Encounters Date Type Department Care Team (Late st Contact Info) Description 10/02/2024 11:45 AM CDT Office Visit [facility] Oncology and Hematology - [place] [address] [facility] [address] [place] [address] Prince Mir MD [address] [facility] [address] [place] [address] documented as of this encounter Procedures Procedure Name Priority Date/Time Associated Diagnosis Comments COMPREHENSIVE METABOLIC PANEL Routine 06/05/2004 9:50 AM CDT documented in this encounter Results * (ABNORMAL) COMPREHENSIVE METABOLIC PANEL (06/05/2004 9:50 AM CDT) GLUCOSE 110(H) 65 - 109 mg/dL INTERFACE SYSTEM CREATININE 1.1 0.4 - 1.2 mg/dL INTERFACE SYSTEM CALCIUM 10.0 8.6 - 10.2 mg/dL INTERFACE SYSTEM AST 25 12 - 32 U/L INTERFACE SYSTEM ALKALINE PHOSPHATASE 92 35 - 104 U/L INTERFACE SYSTEM BUN 17 6 - 20 mg/dL INTERFACE SYSTEM BILIRUBIN TOTAL 0.5 0.2 - 1.0 mg/dL INTERFACE SYSTEM ALBUMIN 4.8 3.4 - 4.8 g/dL INTERFACE SYSTEM TOTAL PROTEIN 8.4 6.3 - 8.6 g/dL INTERFACE SYSTEM ALT 17 0 - 31 U/L INTERFACE SYSTEM SODIUM 141 135 - 145 mmol/L INTERFACE SYSTEM POTASSIUM 4.7 3.5 - 4.9 mmol/L INTERFACE SYSTEM CHLORIDE 104 96 - 108 mmol/L INTERFACE SYSTEM CO2 26 22 - 30 mmol/L INTERFACE SYSTEM 06/05/2004 9:50 AM CDT us Andre Ernst MD CHEMISTRY ORDERABLES Final Res ult INTERFACE SYSTEM Refer to clinic/hospital department documented in this encounter Visit Diagnoses Diagnosis Essential hypertension, benign- Primary documented in this encounter Care Teams Winter Intern Relationship Specialty Start Date End Date Abrahan Mcgee MD [address] [place] [address] PCP - General Family Practice 04/03/24 documented as of this encounter
--- OUTSIDE RECORDS SUMMARY | 2024-06-26 10:14 | XMS_ITS | Encounter Summary ---
Author Organization [facility] Address 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 Gender Identity Not on file Sexual Orientation Not on file documented as of this encounter Plan of Treatment Upcoming Encounters Date Type Department Care Team (Late st Contact Info) Description 10/02/2024 11:45 AM CDT Office Visit [facility] Oncology and Hematology - [place] [address] [place] [address] [address] [place] [address] [place] [address] [place] [address] [address] [place] [address] documented as of this encounter Visit Diagnoses Diagnosis Cervicalgia- Primary documented in this encounter Care Teams Mid Level Game Designer Relationship Specialty Start Date End Date Abrahan Mcgee MD [address] [place] [address] PCP - General Family Practice 04/03/24 documented as of this encounter
--- OUTSIDE RECORDS SUMMARY | 2024-06-26 10:14 | XMS_ITS | Clinical Summary ---
Author Organization [facility] Care Team Providers Care Scratcher Tender Name Role Phone Unavailable Primary Care Provider Unavailabl e Social History Tobacco Use Types Packs/Day Years Used Date Smoking Tobacco: Never Assessed Comments Unknown Sex and Gender Information Value Date Recorded Sex Assigned at Not on file Legal Sex Female 8:02 PM CDT Gender Identity Not on file Sexual Orientation Not on file Plan of Treatment Not on file
--- OUTSIDE RECORDS SUMMARY | 2024-06-26 10:14 | XMS_ITS | Encounter Summary ---
Author Organization [facility] Address [address] [place] [address] Care Team Providers Care Slat Grader Name Role Phone Abrahan Mcgee MD Primary Care Provider [phone] Encounter Details Date Type Department Care Team (Late st Contact Info) Description 02/23/2005 Outpatient Historical [facility] Adult Hospitalists [facility] [address] [place] [address] Deisy Garcia MD [id number] [place] [address] Social History Tobacco Use Types Packs/Day Years Used Date Smoking Tobacco: Never Assessed Comments Unknown Sex and Gender Information Value Date Recorded Sex Assigned at Not on file 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 Gender Identity Not on file Sexual Orientation Not on file documented as of this encounter Plan of Treatment Upcoming Encounters Date Type Department Care Team (Late st Contact Info) Description 10/02/2024 11:45 AM CDT Office Visit [facility] Oncology and Hematology - [place] [address] [facility] [address] [place] [address] Prince Mir MD [address] [facility] [address] [place] [address] documented as of this encounter Visit Diagnoses Not on filedocumented in this encounter Care Teams Slat Grader Relationship Specialty Start Date End Date Abrahan Mcgee MD [address] [place] [address] PCP - General Family Practice 04/03/24 documented as of this encounter
--- OUTSIDE RECORDS SUMMARY | 2024-06-26 10:14 | XMS_ITS | Encounter Summary ---
Author Organization [facility] Address 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 Gender Identity Not on file Sexual Orientation Not on file documented as of this encounter Plan of Treatment Upcoming Encounters Date Type Department Care Team (Late st Contact Info) Description 10/02/2024 11:45 AM CDT Office Visit [facility] Oncology and Hematology - [place] [address] [facility] [address] [place] [address] Prince Mir MD [address] [facility] [address] [place] [address] documented as of this encounter Procedures Procedure Name Priority Date/Time Associated Diagnosis Comments CBC WITH DIFFERENTIAL Routine 06/11/2005 11:29 AM CDT CBC WITH DIFFERENTIAL Routine 06/11/2005 11:29 AM CDT COMPREHENSIVE METABOLIC PANEL Routine 06/11/2005 11:29 AM CDT documented in this encounter Results * CBC WITH DIFFERENTIAL (06/11/2005 11:29 AM CDT) NEUTROPHILS 65 45 - 70 % INTERFAC E SYSTEM LYMPHOCYTES 24 16 - 45 % INTERFAC E SYSTEM MONOCYTES 9 3 - 13 % INTERFACE SYSTEM EOSINOPHILS 1 0 - 7 % INTERFAC E SYSTEM BASOPHILS 1 0 - 2 % INTERFACE SYSTEM NEUTROPHIL ABSOLUTE 5.26 1.90 - 7.00 K/uL INTERFACE SYSTEM LYMPHOCYTE ABSOLUTE 1.95 0.70 - 4.50 K/uL INTERFACE SYSTEM MONOCYTE ABSOLUTE 0.76 0.10 - 1.30 K/uL INTERFACE SYSTEM EOSINOPHIL ABSOLUTE 0.10 0.00 - 0.70 K/uL INTERFACE SYSTEM BASOPHILS ABSOLUTE 0.04 0.00 - 0.20 K/uL INTERFACE SYSTEM 06/11/2005 11:2 9 AM CDT Andre Ernst MD HEMATOLOGY ORDERABLES Final Re sult Performing Organization Address [facility] de Phone Number INTERFACE SYSTEM Refer to clinic/hospital department * (ABNORMAL) CBC WITH DIFFERENTIAL (06/11/2005 11:29 AM CDT) Pathologist [facility] WBC 8.1 4.0 - 9.8 K/uL INTERFACE SYSTEM RBC 4.30 3.90 - 4.90 M/uL INTERFACE SYSTEM HEMOGLOBIN 13.8 11.8 - 14.8 g/dL INTERFACE SYSTEM HEMATOCRIT 39.9 35.5 - 44.0 % INTERFACE SYSTEM MCV 92.8 82.0 - 99.0 fL INTERFACE SYSTEM MCH 32.1 27.2 - 32.6 pg INTERFACE SYSTEM MCHC 34.6 31.5 - 35.5 % INTERFACE SYSTEM RDW 12.5 11.5 - 14.5 % INTERFACE SYSTEM RDW-STDEV 42.4 37.1 - 48.7 fL INTERFACE SYSTEM PLATELETS 258 140 - 350 K/uL INTERFACE SYSTEM MPV 9.2(L) 9.3 - 12.4 fL INTERFACE SYSTEM 06/11/2005 11:2 9 AM CDT Andre Ernst MD HEMATOLOGY ORDERABLES Final Re sult Performing Organization Address City/[facility] Co de Phone Number INTERFACE SYSTEM Refer to clinic/hospital department * COMPREHENSIVE METABOLIC PANEL (06/11/2005 11:29 AM CDT) GLUCOSE 87 65 - 109 mg/dL INTERFACE SYSTEM CREATININE 0.8 0.4 - 1.2 mg/dL INTERFACE SYSTEM CALCIUM 9.7 8.6 - 10.2 mg/dL INTERFACE SYSTEM AST 26 12 - 32 U/L INTERFACE SYSTEM ALKALINE PHOSPHATASE 89 35 - 104 U/L INTERFACE SYSTEM ALT 15 0 - 31 U/L INTERFACE SYSTEM BILIRUBIN TOTAL 0.3 0.2 - 1.0 mg/dL INTERFACE SYSTEM ALBUMIN 4.4 3.4 - 4.8 g/dL INTERFACE SYSTEM TOTAL PROTEIN 8.0 6.3 - 8.6 g/dL INTERFACE SYSTEM BUN 16 6 - 20 mg/dL INTERFACE SYSTEM SODIUM 137 135 - 145 mmol/L INTERFACE SYSTEM POTASSIUM 3.8 3.5 - 4.9 mmol/L INTERFACE SYSTEM CHLORIDE 104 96 - 108 mmol/L INTERFACE SYSTEM CO2 24 22 - 30 mmol/L INTERFACE SYSTEM 06/11/2005 11:2 9 AM CDT us Andre Ernst MD CHEMISTRY ORDERABLES Final Res ult INTERFACE SYSTEM Refer to clinic/hospital department documented in this encounter Visit Diagnoses Diagnosis Headache(784.0)- Primary Headache documented in this encounter Care Teams Student Dean Relationship Specialty Start Date End Date Abrahan Mcgee MD [address] [place] [address] PCP - General Family Practice 04/03/24 documented as of this encounter
--- OUTSIDE RECORDS SUMMARY | 2024-06-26 10:14 | XMS_ITS | Encounter Summary ---
Author Organization [facility] Address [address] [place] [address] Care Team Providers Care Fender Mechanic Apprentice Name Role Phone Abrahan Mcgee MD Primary Care Provider [phone] Encounter Details Date Type Department Care Team (Late st Contact Info) Description 11/20/2002 Outpatient Historical [facility] STNahid Yuen MD NO ADDRESS ON FILE Er, Authorized P NO ADDRESS ON FILE OPEN WOUND OF SCALP (Primary Dx) Social History Tobacco Use Types Packs/Day Years Used Date Smoking Tobacco: Never Assessed Comments Unknown Sex and Gender Information Value Date Recorded Sex Assigned at Not on file Legal Sex Female 3:33 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 Gender Identity Not on file Sexual Orientation Not on file documented as of this encounter Plan of Treatment Upcoming Encounters Date Type Department Care Team (Late st Contact Info) Description 10/02/2024 11:45 AM CDT Office Visit [facility] Oncology and Hematology - [place] [address] [facility] [address] [place] [address] Prince Mir MD [address] [facility] [address] [place] [address] documented as of this encounter Visit Diagnoses Diagnosis Open wound of scalp, without mention of complication- Primary documented in this encounter Care Teams Fender Mechanic Apprentice Relationship Specialty Start Date End Date Abrahan Mcgee MD [address] [place] [address] PCP - General Family Practice 04/03/24 documented as of this encounter
--- OUTSIDE RECORDS SUMMARY | 2024-06-26 10:14 | XMS_ITS | Encounter Summary ---
Author Organization [facility] Address 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 Gender Identity Not on file Sexual Orientation Not on file documented as of this encounter Plan of Treatment Upcoming Encounters Date Type Department Care Team (Late st Contact Info) Description 10/02/2024 11:45 AM CDT [facility] Visit [facility] Oncology and Hematology - [place] [address] [facility] [address] [place] [address] Prince Mir MD [address] [facility] [address] [place] [address] documented as of this encounter Visit Diagnoses Diagnosis Abdominal pain, other specified site- Primary documented in this encounter Care Teams Painter Drum Relationship Specialty Start Date End Date Abrahan Mcgee MD [address] [place] [address] PCP - General Family Practice 04/03/24 documented as of this encounter
--- OUTSIDE RECORDS SUMMARY | 2024-06-26 10:14 | XMS_ITS | Encounter Summary ---
Author Organization [facility] Address [address] [place] [address] Care Team Providers Care Cosmetic Sales Advisor Name Role Phone Abrahan Mcgee MD Primary Care Provider [phone] Encounter Details Date Type Department Care Team (Late st Contact Info) Description 02/24/2005 Outpatient Historical [facility] Support Serv. (Adt Cardiology-[facility]) [address] 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 Gender Identity Not on file Sexual Orientation Not on file documented as of this encounter Plan of Treatment Upcoming Encounters Date Type Department Care Team (Late st Contact Info) Description 10/02/2024 11:45 AM CDT Office Visit [facility] Oncology and Hematology - [place] [address] [facility] [address] [place] [address] Prince Mir MD [address] [facility] [address] [place] [address] documented as of this encounter Visit Diagnoses Not on filedocumented in this encounter Care Teams Cosmetic Sales Advisor Relationship Specialty Start Date End Date Abrahan Mcgee MD [address] [place] [address] PCP - General Family Practice 04/03/24 documented as of this encounter
--- OUTSIDE RECORDS SUMMARY | 2024-06-26 10:14 | XMS_ITS | Encounter Summary ---
Author Organization [facility] Address 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 Gender Identity Not on file Sexual Orientation Not on file documented as of this encounter Plan of Treatment Upcoming Encounters Date Type Department Care Team (Late st Contact Info) Description 10/02/2024 11:45 AM CDT Office Visit [facility] Oncology and Hematology - [place] [address] [facility] [address] [place] [address] Prince Mir MD [address] [facility] [address] [place] [address] documented as of this encounter Procedures Procedure Name Priority Date/Time Associated Diagnosis Comments CBC WITH DIFFERENTIAL Routine 09/16/2004 11:48 AM CDT CBC WITH DIFFERENTIAL Routine 09/16/2004 11:48 AM CDT TSH Routine 09/16/2004 11:48 AM CDT COMPREHENSIVE METABOLIC PANEL Routine 09/16/2004 11:48 AM CDT documented in this encounter Results * (ABNORMAL) CBC WITH DIFFERENTIAL (09/16/2004 11:48 AM CDT) NEUTROPHILS 72(H) 45 - 70 % INTERFAC E SYSTEM LYMPHOCYTES 18 16 - 45 % INTERFAC E SYSTEM MONOCYTES 9 3 - 13 % INTERFACE SYSTEM EOSINOPHILS 1 0 - 7 % INTERFAC E SYSTEM BASOPHILS 0 0 - 2 % INTERFACE SYSTEM NEUTROPHIL ABSOLUTE 6.12 1.90 - 7.00 K/uL INTERFACE SYSTEM LYMPHOCYTE ABSOLUTE 1.57 0.70 - 4.50 K/uL INTERFACE SYSTEM MONOCYTE ABSOLUTE 0.73 0.10 - 1.30 K/uL INTERFACE SYSTEM EOSINOPHIL ABSOLUTE 0.06 0.00 - 0.70 K/uL INTERFACE SYSTEM BASOPHILS ABSOLUTE 0.03 0.00 - 0.20 K/uL INTERFACE SYSTEM 09/16/2004 11:4 8 AM CDT Andre Ernst MD HEMATOLOGY ORDERABLES Final Re sult INTERFACE SYSTEM Refer to clinic/hospital department * (ABNORMAL) CBC WITH DIFFERENTIAL (09/16/2004 11:48 AM CDT) WBC 8.5 4.0 - 9.8 K/uL INTERFACE SYSTEM RBC 4.09 3.90 - 4.90 M/uL INTERFACE SYSTEM HEMOGLOBIN 13.6 11.8 - 14.8 g/dL INTERFACE SYSTEM HEMATOCRIT 39.5 35.5 - 44.0 % INTERFACE SYSTEM MCV 96.6 82.0 - 99.0 fL INTERFACE SYSTEM MCH 33.3(H) 27.2 - 32.6 pg INTERFACE SYSTEM MCHC 34.4 31.5 - 35.5 % INTERFACE SYSTEM RDW 12.4 11.5 - 14.5 % INTERFACE SYSTEM RDW-STDEV 44.1 37.1 - 48.7 fL INTERFACE SYSTEM PLATELETS 239 140 - 350 K/uL INTERFACE SYSTEM MPV 9.2(L) 9.3 - 12.4 fL INTERFACE SYSTEM 09/16/2004 11:4 8 AM CDT Andre Ernst MD HEMATOLOGY ORDERABLES Final Re sult Performing Organization Address City/[facility] Co de Phone Number INTERFACE SYSTEM Refer to clinic/hospital department * TSH (09/16/2004 11:48 AM CDT) TSH 1.55 0.27 - 4.20 uU/mL INTERFACE SYSTEM 09/16/2004 11:4 8 AM CDT Andre Ernst MD CHEMISTRY ORDERABLES Final Res ult Performing Organization Address City/[facility] Co de Phone Number INTERFACE SYSTEM Refer to clinic/hospital department * COMPREHENSIVE METABOLIC PANEL (09/16/2004 11:48 AM CDT) GLUCOSE 94 65 - 109 mg/dL INTERFACE SYSTEM CREATININE 1.0 0.4 - 1.2 mg/dL INTERFACE SYSTEM CALCIUM 9.5 8.6 - 10.2 mg/dL INTERFACE SYSTEM AST 24 12 - 32 U/L INTERFACE SYSTEM ALKALINE PHOSPHATASE 86 35 - 104 U/L INTERFACE SYSTEM BUN 17 6 - 20 mg/dL INTERFACE SYSTEM BILIRUBIN TOTAL 0.4 0.2 - 1.0 mg/dL INTERFACE SYSTEM ALBUMIN 4.2 3.4 - 4.8 g/dL INTERFACE SYSTEM TOTAL PROTEIN 7.8 6.3 - 8.6 g/dL INTERFACE SYSTEM ALT 17 0 - 31 U/L INTERFACE SYSTEM SODIUM 137 135 - 145 mmol/L INTERFACE SYSTEM POTASSIUM 4.3 3.5 - 4.9 mmol/L INTERFACE SYSTEM CHLORIDE 103 96 - 108 mmol/L INTERFACE SYSTEM CO2 26 22 - 30 mmol/L INTERFACE SYSTEM 09/16/2004 11:4 8 AM CDT Andre Ernst MD CHEMISTRY ORDERABLES Final Res ult Performing Organization Address City/[facility] Co de Phone Number INTERFACE SYSTEM Refer to clinic/hospital department documented in this encounter Visit Diagnoses Diagnosis Essential hypertension, benign- Primary documented in this encounter Care Teams Clean Energy Policy Analyst Relationship Specialty Start Date End Date Abrahan Mcgee MD [address] [place] [address] PCP - General Family Practice 04/03/24 documented as of this encounter
--- OUTSIDE RECORDS SUMMARY | 2024-06-26 10:14 | XMS_ITS | Encounter Summary ---
Author Organization [facility] Address 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 Dx) Social History Tobacco Use Types Packs/Day Years Used Date Smoking Tobacco: Never Assessed Comments Unknown Sex and Gender Information Value Date Recorded Sex Assigned at Not on file Legal Sex Female 3:33 AM IRON MINER Gender Identity Not on file Sexual Orientation Not on file documented as of this encounter Plan of Treatment Upcoming Encounters Date Type Department Care Team (Late st Contact Info) Description 10/02/2024 11:45 AM CDT Office Visit [facility] Oncology and Hematology - [place] [address] [place] [address] [address] [place] [address] Prince Mir MD [address] [place] [address] [address] [place] [address] documented as of this encounter Visit Diagnoses Diagnosis Allergic rhinitis due to pollen- Primary documented in this encounter Care Teams Bait Tier Relationship Specialty Start Date End Date Abarhan Mcgee MD [address] [place] [address] PCP - General Family Practice 04/03/24 documented as of this encounter
--- OUTSIDE RECORDS SUMMARY | 2024-06-26 10:14 | XMS_ITS | Encounter Summary ---
Author Organization [facility] Address 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 Gender Identity Not on file Sexual Orientation Not on file documented as of this encounter Plan of Treatment Upcoming Encounters Date Type Department Care Team (Late st Contact Info) Description 10/02/2024 11:45 AM CDT Office Visit [facility] Oncology and Hematology - [place] [address] [place] [address] [address] [place] [address] [place] [address] [place] [address] [address] [place] [address] documented as of this encounter Visit Diagnoses Diagnosis Essential hypertension, benign- Primary documented in this encounter Care Teams Motor Coach Driver Relationship Specialty Start Date End Date Abrahan Mcgee MD [address] [place] [address] PCP - General Family Practice 04/03/24 documented as of this encounter
--- OUTSIDE RECORDS SUMMARY | 2024-06-26 10:14 | XMS_ITS | Encounter Summary ---
Author Organization [facility] Address [address] [place] [address] Care Team Providers Care Knifeman Name Role Phone Abrahan Mcgee MD Primary Care Provider [phone] Encounter Details Date Type Department Care Team (Late st Contact Info) Description 02/23/2005 Outpatient Historical [facility] Support Serv. (Adt Cardiology-[facility]) [address] [place] [address] Guero Malhotra MD NO ADDRESS ON FILE Social History Tobacco Use Types Packs/Day Years Used Date Smoking Tobacco: Never Assessed Comments Unknown Sex and Gender Information Value Date Recorded Sex Assigned at Not on file Legal Sex Female 3:33 AM EMT I/99 Gender Identity Not on file Sexual Orientation Not on file documented as of this encounter Plan of Treatment Upcoming Encounters Date Type Department Care Team (Late st Contact Info) Description 10/02/2024 11:45 AM CDT Office Visit [facility] Oncology and Hematology - [place] [address] [facility] [address] [place] [address] Prince Mir MD [address] [facility] [address] [place] [address] documented as of this encounter Visit Diagnoses Not on filedocumented in this encounter Care Teams Knifeman Relationship Specialty Start Date End Date Abrahan Mcgee MD [address] [place] [address] PCP - General Family Practice 04/03/24 documented as of this encounter
--- OUTSIDE RECORDS SUMMARY | 2024-06-26 10:14 | XMS_ITS | Encounter Summary ---
Author Organization [facility] Address [address] [place] [address] Care Team Providers Care Medical Lab Technologist Name Role Phone Abrahan Mcgee MD Primary Care Provider [phone] Encounter Details Date Type Department Care Team (Latest Contact Info) Description 11/24/2005 Outpatient Historical HIS [facility] Sneed, Oscar Medeiros MD NO ADDRESS ON FILE Other Screening Mammogram (Primary Dx) Social History Tobacco Use Types Packs/Day Years Used Date Smoking Tobacco: Never Assessed Comments Unknown Sex and Gender Information Value Date Recorded Sex Assigned at Not on file Legal Sex Female 3:33 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 Gender Identity Not on file Sexual Orientation Not on file documented as of this encounter Plan of Treatment Upcoming Encounters Date Type Department Care Team (Late st Contact Info) Description 10/02/2024 11:45 AM CDT Office Visit [facility] Oncology and Hematology - [place] [address] [place] [address] [address] [place] [address] [place] [address] [place] [address] [address] [place] [address] documented as of this encounter Visit Diagnoses Diagnosis Other screening mammogram- Primary documented in this encounter Care Teams Medical Lab Technologist Relationship Specialty Start Date End Date Abrahan Mcgee MD [address] [place] [address] PCP - General Family Practice 04/03/24 documented as of this encounter
--- OUTSIDE RECORDS SUMMARY | 2024-06-26 10:14 | XMS_ITS | Encounter Summary ---
Author Organization [facility] Address [address] [place] [address] Care Team Providers Care Inspector Cold Working Name Role Phone Abrahan Mcgee MD Primary Care Provider [phone] Encounter Details Date Type Department Care Team (Late st Contact Info) Description 07/23/2003 Outpatient Historical [facility] MRI DEPT Meryl Perry MD [address] [place] [address] [address] UTERINE LEIOMYOMA NOS (Primary Dx) Social History Tobacco Use Types Packs/Day Years Used Date Smoking Tobacco: Never Assessed Comments Unknown Sex and Gender Information Value Date Recorded Sex Assigned at Not on file Legal Sex Female 3:33 AM EVENT PLANNING INTERN Gender Identity Not on file Sexual Orientation Not on file documented as of this encounter Plan of Treatment Upcoming Encounters Date Type Department Care Team (Late st Contact Info) Description 10/02/2024 11:45 AM CDT Office Visit [facility] Oncology and Hematology - [place] [address] [facility] [address] [place] [address] Prince Mir MD [address] [facility] [address] [place] [address] documented as of this encounter Visit Diagnoses Diagnosis Leiomyoma of uterus, unspecified- Primary documented in this encounter Care Teams Inspector Cold Working Relationship Specialty Start Date End Date Abrahan Mcgee MD [address] [place] [address] PCP - General Family Practice 04/03/24 documented as of this encounter
--- OUTSIDE RECORDS SUMMARY | 2024-06-26 10:14 | XMS_ITS | Encounter Summary ---
Author Organization [facility] Address [address] [place] [address] Care Team Providers Care Point Of Care Technician Name Role Phone Abrahan Mcgee MD Primary Care Provider [phone] Encounter Details Date Type Department Care Team (Latest Contact Info) Description 02/23/2005 Inpatient Historical [facility] Alcon Valadez MD [address] [address] Deisy Garcia MD [address] [address] CHEST PAIN NOS (Primary Dx) Social History Tobacco Use Types Packs/Day Years Used Date Smoking Tobacco: Never Assessed Comments Unknown Sex and Gender Information Value Date Recorded Sex Assigned at Not on file Legal Sex Female 3:33 AM TECHNICAL SUPPORT ANALYST Gender Identity Not on file Sexual Orientation Not on file documented as of this encounter Plan of Treatment Upcoming Encounters Date Type Department Care Team (Late st Contact Info) Description 10/02/2024 11:45 AM CDT Office Visit [facility] Oncology and Hematology - [place] [address] [facility] [address] [place] [address] Prince Mir MD [address] [facility] [address] [place] [address] documented as of this encounter Procedures Procedure Name Priority Date/Time Associated Diagnosis Comments CBC WITH DIFFERENTIAL Routine 02/25/2005 4:30 AM TECHNICAL SUPPORT ANALYST CBC WITH DIFFERENTIAL Routine 02/25/2005 4:30 AM TECHNICAL SUPPORT ANALYST C-REACTIVE PROTEIN Routine 02/25/2005 4: 30 AM TECHNICAL SUPPORT ANALYST T3 FREE Routine 02/25/2005 4:30 AM TECHNICAL SUPPORT ANALYST T4 FREE Routine 02/25/2005 4:30 AM TECHNICAL SUPPORT ANALYST BASIC METABOLIC PANEL Routine 02/25/2005 4:30 AM TECHNICAL SUPPORT ANALYST TSH Routine 02/24/2005 4:35 AM TECHNICAL SUPPORT ANALYST LIPASE Routine 02/24/2005 4:35 AM TECHNICAL SUPPORT ANALYST AMYLASE Routine 02/24/2005 4:35 AM TECHNICAL SUPPORT ANALYST LIPID PANEL Routine 02/24/2005 4:35 AM TECHNICAL SUPPORT ANALYST BASIC METABOLIC PANEL Routine 02/24/2005 4:35 AM TECHNICAL SUPPORT ANALYST TROPONIN (W/REFLEX CKMB/CK) Routine 02/24/2005 4:15 AM TECHNICAL SUPPORT ANALYST TROPONIN (W/REFLEX CKMB/CK) Routine 02/23/2005 10:15 PM TECHNICAL SUPPORT ANALYST URINALYSIS W/REFLEX MICROSCOPIC Routine 02/23/2005 8:31 PM TECHNICAL SUPPORT ANALYST TROPONIN (W/REFLEX CKMB/CK) Routine 02/23/2005 1:28 PM TECHNICAL SUPPORT ANALYST CBC WITH DIFFERENTIAL Routine 02/23/2005 12:46 PM TECHNICAL SUPPORT ANALYST CBC WITH DIFFERENTIAL Routine 02/23/2005 12:46 PM TECHNICAL SUPPORT ANALYST LIPASE Routine 02/23/2005 12:46 PM TECHNICAL SUPPORT ANALYST AMYLASE Routine 02/23/2005 12:46 PM TECHNICAL SUPPORT ANALYST COMPREHENSIVE METABOLIC PANEL Routine 02/23/2005 12:46 PM TECHNICAL SUPPORT ANALYST documented in this encounter Results * CBC WITH DIFFERENTIAL (02/25/2005 4:30 AM TECHNICAL SUPPORT ANALYST) NEUTROPHILS 52 45 - 70 % INTERFAC E SYSTEM LYMPHOCYTES 36 16 - 45 % INTERFAC E SYSTEM MONOCYTES 9 3 - 13 % INTERFACE SYSTEM EOSINOPHILS 3 0 - 7 % INTERFAC E SYSTEM BASOPHILS 1 0 - 2 % INTERFACE SYSTEM NEUTROPHIL ABSOLUTE 3.89 1.90 - 7.00 K/uL INTERFACE SYSTEM LYMPHOCYTE ABSOLUTE 2.67 0.70 - 4.50 K/uL INTERFACE SYSTEM MONOCYTE ABSOLUTE 0.64 0.10 - 1.30 K/uL INTERFACE SYSTEM EOSINOPHIL ABSOLUTE 0.19 0.00 - 0.70 K/uL INTERFACE SYSTEM BASOPHILS ABSOLUTE 0.05 0.00 - 0.20 K/uL INTERFACE SYSTEM 02/25/2005 4:30 AM TECHNICAL SUPPORT ANALYST Alcon Valadez MD HEMATOLOGY ORDERABLES Final Re sult Performing Organization Address [facility] de Phone Number INTERFACE SYSTEM Refer to clinic/hospital department * (ABNORMAL) CBC WITH DIFFERENTIAL (02/25/2005 4:30 AM TECHNICAL SUPPORT ANALYST) WBC 7.4 4.0 - 9.8 K/uL INTERFACE SYSTEM RBC 3.98 3.90 - 4.90 M/uL INTERFACE SYSTEM HEMOGLOBIN 12.9 11.8 - 14.8 g/dL INTERFACE SYSTEM HEMATOCRIT 37.7 35.5 - 44.0 % INTERFACE SYSTEM MCV 94.7 82.0 - 99.0 fL INTERFACE SYSTEM MCH 32.4 27.2 - 32.6 pg INTERFACE SYSTEM MCHC 34.2 31.5 - 35.5 % INTERFACE SYSTEM RDW 12.5 11.5 - 14.5 % INTERFACE SYSTEM RDW-STDEV 43.1 37.1 - 48.7 fL INTERFACE SYSTEM PLATELETS 228 140 - 350 K/uL INTERFACE SYSTEM MPV 9.2(L) 9.3 - 12.4 fL INTERFACE SYSTEM 02/25/2005 4:30 AM TECHNICAL SUPPORT ANALYST Alcon Valadez MD HEMATOLOGY ORDERABLES Final Re sult Performing Organization Address [facility]/ZIP Co de Phone Number INTERFACE SYSTEM Refer to clinic/hospital department * T3 FREE (02/25/2005 4:30 AM TECHNICAL SUPPORT ANALYST) T3 FREE 2.9 2.5 - 4.4 pg/mL INTERFACE SYSTEM 02/25/2005 4:30 AM TECHNICAL SUPPORT ANALYST us Alcon Valadez MD CHEMISTRY ORDERABLES Final Res ult Performing Organization Address [facility] Phone Number INTERFACE SYSTEM Refer to clinic/hospital department * T4 FREE (02/25/2005 4:30 AM TECHNICAL SUPPORT ANALYST) T4 FREE 1.3 0.9 - 1.7 ng/dL INTERFACE SYSTEM 02/25/2005 4:3 0 AM TECHNICAL SUPPORT ANALYST us Alcon Valadez MD CHEMISTRY ORDERABLES Final Res ult Performing Organization Address [facility] Phone Number INTERFACE SYSTEM Refer to clinic/hospital department * C-REACTIVE PROTEIN (02/25/2005 4:30 AM TECHNICAL SUPPORT ANALYST) CRP 0.6 0.0 - 0.8 mg/dL INTERFACE SYSTEM 02/25/2005 4:30 AM TECHNICAL SUPPORT ANALYST us Alcon Valadez MD CHEMISTRY ORDERABLES Final Res ult Performing Organization Address [facility] Phone Number INTERFACE SYSTEM Refer to clinic/hospital department * BASIC METABOLIC PANEL (02/25/2005 4:30 AM TECHNICAL SUPPORT ANALYST) GLUCOSE 89 65 - 109 mg/dL INTERFACE SYSTEM CREATININE 0.9 0.4 - 1.2 mg/dL INTERFACE SYSTEM CALCIUM 8.8 8.6 - 10.2 mg/dL INTERFACE SYSTEM BUN 9 6 - 20 mg/dL INTERFACE SYSTEM SODIUM 138 135 - 145 mmol/L INTERFACE SYSTEM POTASSIUM 4.2 3.5 - 4.9 mmol/L INTERFACE SYSTEM CHLORIDE 106 96 - 108 mmol/L INTERFACE SYSTEM CO2 27 22 - 30 mmol/L INTERFACE SYSTEM 02/25/2005 4:30 AM TECHNICAL SUPPORT ANALYST Alcon Valadez MD CHEMISTRY ORDERABLES Final Res ult Performing Organization Address [facility] Phone Number INTERFACE SYSTEM Refer to clinic/hospital department * (ABNORMAL) LIPASE (02/24/2005 4:35 AM TECHNICAL SUPPORT ANALYST) LIPASE 90(H) 13 - 60 U/L INTERFAC E SYSTEM 02/24/2005 4:35 AM TECHNICAL SUPPORT ANALYST us Nora Sivaprasad CHEMISTRY ORDERABLES Final Resu lt Performing Organization Address [facility] Phone Number INTERFACE SYSTEM Refer to clinic/hospital department * (ABNORMAL) AMYLASE (02/24/2005 4:35 AM TECHNICAL SUPPORT ANALYST) AMYLASE 118(H) 28 - 100 U/L INTERFACE SYSTEM 02/24/2005 4:35 AM TECHNICAL SUPPORT ANALYST us Nora Sivaprasad CHEMISTRY ORDERABLES Final Resu lt Performing Organization Address [facility] Phone Number INTERFACE SYSTEM Refer to clinic/hospital department * (ABNORMAL) TSH (02/24/2005 4:35 AM TECHNICAL SUPPORT ANALYST) TSH 4.33(H) 0.27 - 4.20 uU/mL INTERFACE SYSTEM 02/24/2005 4:35 AM TECHNICAL SUPPORT ANALYST us Nora Sivaprasad CHEMISTRY ORDERABLES Final Resu lt Performing Organization Address [facility] Phone Number INTERFACE SYSTEM Refer to clinic/hospital department * LIPID PANEL (02/24/2005 4:35 AM TECHNICAL SUPPORT ANALYST) LIPID PANEL COMMENT See below INTERFACE SYSTEM Comment: Adult ATP III Classifications: Cholesterol (mg/dL) Triglyceride (mg/dL) Desirable <200 Normal <150 Borderline 200 - 239 Borderline High 150 - 199 High >=240 High 200 - 499 Very High >=500 HDL Cholesterol (mg/dL) LDL (mg/dL) Low (increased risk) <40 Optimal <100 High (reduced risk) >=60 Near or above optimal 100 - 129 Borderline 130 - 159 High 160 - 189 Very High >=190 LDL calculation is not accurate if Triglycerides are greater than 400 mg /dL Pediatric NCEP Classifications: Cholesterol(<20 years),(mg/dL) Triglyceride Desirable <170 Pediatric classification Borderline 170 - 199 not defined. High >=200 HDL (<5 years) LDL (mg/dL) No Reference Range Established Desirable <110 Borderline 110 - 129 High >=130 CHOLESTEROL 170 100 - 199 mg/dL INTERFACE SYSTEM TRIGLYCERIDE 146 10 - 149 mg/dL INTERFACE SYSTEM HDL 59 40 - 59 mg/dL INTERFACE SYSTEM LDL CALCULATED 82 <=99 mg/dL INTERFACE SYSTEM CHOL/HDL RATIO 2.9 2.0 - 5.0 INTER FACE SYSTEM Comment:See interpretive gary a section for risk classifications. 02/24/2005 4:35 AM TECHNICAL SUPPORT ANALYST [employer] CHEMISTRY ORDERABLES Final Resu lt Performing Organization Address City/[facility]/ZIP Co de Phone Number INTERFACE SYSTEM Refer to clinic/hospital department * BASIC METABOLIC PANEL (02/24/2005 4:35 AM TECHNICAL SUPPORT ANALYST) GLUCOSE 100 65 - 109 mg/dL INTERFACE SYSTEM CREATININE 1.1 0.4 - 1.2 mg/dL INTERFACE SYSTEM CALCIUM 9.0 8.6 - 10.2 mg/dL INTERFACE SYSTEM BUN 16 6 - 20 mg/dL INTERFACE SYSTEM SODIUM 136 135 - 145 mmol/L INTERFACE SYSTEM POTASSIUM 3.9 3.5 - 4.9 mmol/L INTERFACE SYSTEM CHLORIDE 105 96 - 108 mmol/L INTERFACE SYSTEM CO2 22 22 - 30 mmol/L INTERFACE SYSTEM 02/24/2005 4:35 AM TECHNICAL SUPPORT ANALYST [employer] CHEMISTRY ORDERABLES Final Resu lt Performing Organization Address City/[facility]/ZIP Co de Phone Number INTERFACE SYSTEM Refer to clinic/hospital department * TROPONIN (W/REFLEX CKMB/CK) (02/24/2005 4:15 AM TECHNICAL SUPPORT ANALYST) TROPONIN T <0.01 <=0.03 ng/mL INTERFACE SYSTEM TROPONIN T INTERP Negative INTERFACE SYSTEM 02/24/2005 4:15 AM TECHNICAL SUPPORT ANALYST [facility] Sivaprasad CHEMISTRY ORDERABLES Final Resu lt Performing Organization Address [facility] Phone Number INTERFACE SYSTEM Refer to clinic/hospital department * TROPONIN (W/REFLEX CKMB/CK) (02/23/2005 10:15 PM TECHNICAL SUPPORT ANALYST) TROPONIN T <0.01 <=0.03 ng/mL INTERFACE SYSTEM TROPONIN T INTERP Negative INTERFACE SYSTEM 02/23/2005 10:1 5 PM TECHNICAL SUPPORT ANALYST [facility] [employer] CHEMISTRY ORDERABLES Final Resu lt Performing Organization Address [facility] Phone Number INTERFACE SYSTEM Refer to clinic/hospital department * (ABNORMAL) URINALYSIS (02/23/2005 8:31 PM TECHNICAL SUPPORT ANALYST) COLOR UA Yellow INTERFACE SYSTEM CLARITY UA Clear Clear INTERFACE SYSTEM SPECIFIC GRAVITY UA 1.010 1.001 - 1.035 INTERFACE SYSTEM PH UA 6.5 5.0 - 8.0 INTERFACE SYSTEM LEUKOCYTE ESTERASE UA Negative Negative INTERFACE SYSTEM NITRITE UA Negative Negative INTERFACE SYSTEM PROTEIN UA Negative Negative INTERFACE SYSTEM GLUCOSE UA Negative Negative INTERFACE SYSTEM KETONES UA Negative Negative INTERFACE SYSTEM UROBILINOGEN UA <1 <1 mg/dL INTE RFACE SYSTEM BILIRUBIN UA Negative Negative INTERFA CE SYSTEM BLOOD UA 1+(A) Negative INTERFACE SYSTEM WBC UA <1 0 - 5 /HPF INTERFACE SYSTEM RBC UA 4 0 - 4 /HPF INTERFACE SYSTEM BACTERIA UA 1+(A) None Seen /HPF INTERFACE SYSTEM EPITHELIAL CELLS, URINE 2-5 /HPF INTERFACE SYSTEM 02/23/2005 8:31 PM TECHNICAL SUPPORT ANALYST [facility] Sivaprasad URINE ORDERABLES Final Result Performing Organization Address [facility] Phone Number INTERFACE SYSTEM Refer to clinic/hospital department * TROPONIN (W/REFLEX CKMB/CK) (02/23/2005 1:28 PM TECHNICAL SUPPORT ANALYST) TROPONIN T <0.01 <=0.03 ng/mL INTERFACE SYSTEM TROPONIN T INTERP Negative INTERFACE SYSTEM 02/23/2005 1:28 PM TECHNICAL SUPPORT ANALYST us Erika P Er CHEMISTRY ORDERABLES Final Resul t Performing Organization Address [facility] de Phone Number INTERFACE SYSTEM Refer to clinic/hospital department * CBC WITH DIFFERENTIAL (02/23/2005 12:46 PM TECHNICAL SUPPORT ANALYST) NEUTROPHILS 70 45 - 70 % INTERFAC E SYSTEM LYMPHOCYTES 21 16 - 45 % INTERFAC E SYSTEM MONOCYTES 8 3 - 13 % INTERFACE SYSTEM EOSINOPHILS 1 0 - 7 % INTERFAC E SYSTEM BASOPHILS 0 0 - 2 % INTERFACE SYSTEM NEUTROPHIL ABSOLUTE 6.58 1.90 - 7.00 K/uL INTERFACE SYSTEM LYMPHOCYTE ABSOLUTE 1.94 0.70 - 4.50 K/uL INTERFACE SYSTEM MONOCYTE ABSOLUTE 0.70 0.10 - 1.30 K/uL INTERFACE SYSTEM EOSINOPHIL ABSOLUTE 0.08 0.00 - 0.70 K/uL INTERFACE SYSTEM BASOPHILS ABSOLUTE 0.04 0.00 - 0.20 K/uL INTERFACE SYSTEM 02/23/2005 12:4 6 PM TECHNICAL SUPPORT ANALYST Jasbir Sol MD HEMATOLOGY ORDERABLES Final Re sult Performing Organization Address [facility] Phone Number INTERFACE SYSTEM Refer to clinic/hospital department * (ABNORMAL) CBC WITH DIFFERENTIAL (02/23/2005 12:46 PM TECHNICAL SUPPORT ANALYST) WBC 9.3 4.0 - 9.8 K/uL INTERFACE SYSTEM RBC 4.49 3.90 - 4.90 M/uL INTERFACE SYSTEM HEMOGLOBIN 15.0(H) 11.8 - 14.8 g/dL INTERFACE SYSTEM HEMATOCRIT 42.6 35.5 - 44.0 % INTERFACE SYSTEM MCV 94.9 82.0 - 99.0 fL INTERFACE SYSTEM MCH 33.4(H) 27.2 - 32.6 pg INTERFACE SYSTEM MCHC 35.2 31.5 - 35.5 % INTERFACE SYSTEM RDW 12.3 11.5 - 14.5 % INTERFACE SYSTEM RDW-STDEV 42.0 37.1 - 48.7 fL INTERFACE SYSTEM PLATELETS 245 140 - 350 K/uL INTERFACE SYSTEM MPV 9.3 9.3 - 12.4 fL INTERFACE SYSTEM 02/23/2005 12:4 6 PM TECHNICAL SUPPORT ANALYST Jasbir Sol MD HEMATOLOGY ORDERABLES Final Re sult Performing Organization Address [facility] de Phone Number INTERFACE SYSTEM Refer to clinic/hospital department * (ABNORMAL) LIPASE (02/23/2005 12:46 PM TECHNICAL SUPPORT ANALYST) LIPASE 91(H) 13 - 60 U/L INTERFAC E SYSTEM 02/23/2005 12:4 6 PM TECHNICAL SUPPORT ANALYST Jasbir Sol MD CHEMISTRY ORDERABLES Final Res ult Performing Organization Address [facility] Phone Number INTERFACE SYSTEM Refer to clinic/hospital department * (ABNORMAL) AMYLASE (02/23/2005 12:46 PM TECHNICAL SUPPORT ANALYST) AMYLASE 134(H) 28 - 100 U/L INTERFACE SYSTEM 02/23/2005 12:4 6 PM TECHNICAL SUPPORT ANALYST Jasbir Sol MD CHEMISTRY ORDERABLES Final Res ult Performing Organization Address [facility] Phone Number INTERFACE SYSTEM Refer to clinic/hospital department * (ABNORMAL) COMPREHENSIVE METABOLIC PANEL (02/23/2005 12:46 PM TECHNICAL SUPPORT ANALYST) GLUCOSE 115(H) 65 - 109 mg/dL INTERFACE SYSTEM CREATININE 1.1 0.4 - 1.2 mg/dL INTERFACE SYSTEM CALCIUM 10.0 8.6 - 10.2 mg/dL INTERFACE SYSTEM AST 42(H) 12 - 32 U/L INTERFACE SYSTEM ALKALINE PHOSPHATASE 77 35 - 104 U/L INTERFACE SYSTEM BILIRUBIN TOTAL 0.4 0.2 - 1.0 mg/dL INTERFACE SYSTEM ALBUMIN 4.6 3.4 - 4.8 g/dL INTERFACE SYSTEM TOTAL PROTEIN 8.4 6.3 - 8.6 g/dL INTERFACE SYSTEM ALT 23 0 - 31 U/L INTERFACE SYSTEM BUN 16 6 - 20 mg/dL INTERFACE SYSTEM SODIUM 134(L) 135 - 145 mmol/L INTERFACE SYSTEM POTASSIUM 4.0 3.5 - 4.9 mmol/L INTERFACE SYSTEM CHLORIDE 99 96 - 108 mmol/L INTERFACE SYSTEM CO2 21(L) 22 - 30 mmol/L INTERFACE SYSTEM 02/23/2005 12:4 6 PM TECHNICAL SUPPORT ANALYST us Jasbir Sol MD CHEMISTRY ORDERABLES Final Res ult INTERFACE SYSTEM Refer to clinic/hospital department documented in this encounter Visit Diagnoses Diagnosis Chest pain, unspecified- Primary documented in this encounter Care Teams Point Of Care Technician Relationship Specialty Start Date End Date Abrahan Mcgee MD [address] [place] [address] PCP - General Family Practice 04/03/24 documented as of this encounter
--- OUTSIDE RECORDS SUMMARY | 2024-06-26 10:14 | XMS_ITS | Encounter Summary ---
Author Organization [facility] Address [address] [place] [address] Care Team Providers Care Data Warehousing Architect Name Role Phone Abrahan Mcgee MD Primary Care Provider [phone] Encounter Details Date Type Department Care Team (Latest Contact Info) Description 12/04/2005 Outpatient Historical HIS [facility] Andre Vidal MD NO ADDRESS ON FILE Essential Hypertension, Benign (Primary Dx) Social History Tobacco Use Types Packs/Day Years Used Date Smoking Tobacco: Never Assessed Comments Unknown Sex and Gender Information Value Date Recorded Sex Assigned at Not on file Legal Sex Female 3:33 AM MANAGER REGULATORY Gender Identity Not on file Sexual Orientation Not on file documented as of this encounter Plan of Treatment Upcoming Encounters Date Type Department Care Team (Late st Contact Info) Description 10/02/2024 11:45 AM CDT Office Visit [facility] Oncology and Hematology - [place] [address] [facility] [address] [place] [address] Prince Mir MD [address] [facility] [address] [place] [address] documented as of this encounter Procedures Procedure Name Priority Date/Time Associated Diagnosis Comments AMYLASE Routine 12/04/2005 12:09 PM CDT COMPREHENSIVE METABOLIC PANEL Routine 12/04/2005 12:09 PM CDT documented in this encounter Results * (ABNORMAL) AMYLASE (12/04/2005 12:09 PM CDT) AMYLASE 168(H) 28 - 100 U/L INTERFACE SYSTEM 12/04/2005 12:0 9 PM CDT us Andre Ernst MD CHEMISTRY ORDERABLES Final Res ult Performing Organization Address City/[facility] Co de Phone Number INTERFACE SYSTEM Refer to clinic/hospital department * (ABNORMAL) COMPREHENSIVE METABOLIC PANEL (12/04/2005 12:09 PM CDT) GLUCOSE 90 65 - 99 mg/dL INTERFACE SYSTEM CREATININE 0.9 0.4 - 1.2 mg/dL INTERFACE SYSTEM CALCIUM 10.2 8.4 - 10.2 mg/dL INTERFACE SYSTEM ALKALINE PHOSPHATASE 106(H) 35 - 104 U/L INTERFACE SYSTEM AST 27 12 - 32 U/L INTERFACE SYSTEM ALT 27 0 - 31 U/L INTERFACE SYSTEM TOTAL PROTEIN 7.9 6.3 - 8.6 g/dL INTERFACE SYSTEM ALBUMIN 4.9(H) 3.4 - 4.8 g/dL INTERFACE SYSTEM BILIRUBIN TOTAL 0.3 0.2 - 1.0 mg/dL INTERFACE SYSTEM BUN 18 6 - 20 mg/dL INTERFACE SYSTEM SODIUM 138 135 - 145 mmol/L INTERFACE SYSTEM POTASSIUM 4.3 3.5 - 4.9 mmol/L INTERFACE SYSTEM CHLORIDE 104 96 - 108 mmol/L INTERFACE SYSTEM CO2 24 22 - 30 mmol/L INTERFACE SYSTEM 12/04/2005 12:0 9 PM CDT us Andre Ernst MD CHEMISTRY ORDERABLES Final Res ult Performing Organization Address City/[facility]/ZIP Co de Phone Number INTERFACE SYSTEM Refer to clinic/hospital department documented in this encounter Visit Diagnoses Diagnosis Essential hypertension, benign- Primary documented in this encounter Care Teams Data Warehousing Architect Relationship Specialty Start Date End Date Abrahan Mcgee MD [address] [place] [address] PCP - General Family Practice 04/03/24 documented as of this encounter
--- OUTSIDE RECORDS SUMMARY | 2024-06-26 10:14 | XMS_ITS | Encounter Summary ---
Author Organization [facility] Address 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 Gender Identity Not on file Sexual Orientation Not on file documented as of this encounter Plan of Treatment Upcoming Encounters Date Type Department Care Team (Late st Contact Info) Description 10/02/2024 11:45 AM CDT Office Visit [facility] Oncology and Hematology - [place] [address] [place] [address] [address] [place] [address] [place] [address] [place] [address] [address] [place] [address] documented as of this encounter Visit Diagnoses Diagnosis Essential hypertension, benign- Primary documented in this encounter Care Teams Blunger Relationship Specialty Start Date End Date Abrahan Mcgee MD [address] [place] [address] PCP - General Family Practice 04/03/24 documented as of this encounter
--- OUTSIDE RECORDS SUMMARY | 2024-06-26 10:14 | XMS_ITS | Encounter Summary ---
Author Organization [facility] Address 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 Oncology and Hematology - [place] [address] [place] [address] [address] [place] [address] [place] [address] [place] [address] [address] [place] [address] documented as of this encounter Visit Diagnoses Not on filedocumented in this encounter Care Teams Senior Revenue Accountant Relationship Specialty Start Date End Date Abrahan Mcgee MD [address] [place] [address] PCP - General Family Practice 04/03/24 documented as of this encounter
--- OUTSIDE RECORDS SUMMARY | 2024-06-26 10:14 | XMS_ITS | Encounter Summary ---
Author Organization [facility] Address [address] [place] [address] Care Team Providers Care Mgmt Analyst Name Role Phone Abrahan Mcgee MD Primary Care Provider [phone] Encounter Details Date Type Department Care Team (Late st Contact Info) Description 01/06/2006 Outpatient Historical HIS 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 Gender Identity Not on file Sexual Orientation Not on file documented as of this encounter Plan of Treatment Upcoming Encounters Date Type Department Care Team (Late st Contact Info) Description 10/02/2024 11:45 AM CDT Office Visit [facility] Oncology and Hematology - [place] [address] [place] [address] [address] [place] [address] [place] [address] [place] [address] [address] [place] [address] documented as of this encounter Visit Diagnoses Not on filedocumented in this encounter Care Teams Mgmt Analyst Relationship Specialty Start Date End Date Abrahan Mcgee MD [address] [place] [address] PCP - General Family Practice 04/03/24 documented as of this encounter
--- OUTSIDE RECORDS SUMMARY | 2024-06-26 10:14 | XMS_ITS | Encounter Summary ---
Author Organization [facility] Address 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 Gender Identity Not on file Sexual Orientation Not on file documented as of this encounter Plan of Treatment Upcoming Encounters Date Type Department Care Team (Late st Contact Info) Description 10/02/2024 11:45 AM CDT Office Visit [facility] Oncology and Hematology - [place] [address] [facility] [address] [place] [address] Prince Mir MD [address] [facility] [address] [place] [address] documented as of this encounter Visit Diagnoses Diagnosis Benign neoplasm of colon- Primary documented in this encounter Care Teams Freight Loader Relationship Specialty Start Date End Date Abrahan Mcgee MD [address] [place] [address] PCP - General Family Practice 04/03/24 documented as of this encounter
--- OUTSIDE RECORDS SUMMARY | 2024-06-26 10:14 | XMS_ITS | Clinical Summary ---
Author Organization [facility] Address [address] [place] [address] Care Team Providers Care Staff Reporter Name Role Phone Luigi Nicole PA-C Primary Care Provider Luigi Nicole PA-C Unavailable Allergies Active Allergy Reactions Criticality Noted Date Comments Amoxicillin Itching 08/22/2022 Amoxicillin Itching,Nausea and Vomiting 024 Medications Cholecalciferol (VITAMIN D3) 25 MCG (1000 UT) Cap Take 1,000 Units by mouth daily. Active clorazepate (TRANXENE) 7.5 MG tablet Take 1 tablet (7.5 mg total) by mouth 3 (three) times daily as needed for Anxiety or Sleep. Active Polyethyl Glycol-Propyl Glycol (SYSTANE) 0.4-0.3 % ophthalmic solution Place 1 drop into both eyes 3 (three) times daily. Active vitamin E (E 1000) 450 MG (1000 UT) Cap Take 1 capsule (1,000 Units total) by mouth daily. Active amLODIPine (NORVASC) 10 MG tablet Take 1 tablet (10 mg total) by mouth daily. 07/15/19 23 Active anastrozole (ARIMIDEX) 1 MG tablet Take 1 tablet by mouth daily. 07/04/19 23 Active montelukast (SINGULAIR) 10 MG tablet Take 1 tablet (10 mg total) by mouth nightly at bedtime. at bedtime. 06/30/19 23 Active ondansetron (ZOFRAN) 4 MG tablet Take 1 tablet (4 mg total) by mouth every 8 (eight) hours as needed. 07/08/19 Active ZENPEP 84671-34399 units CAPSULE ENTERIC COATED PARTICLES Take by mouth see administration instructions. TAKE 2 CAPSULES BY MOUTH WITH MEALS AND 1 CAPSULE WITH SNACKS DIRECTED 04/30/19 Active rOPINIRole (REQUIP) 4 MG tablet Take 1 tablet (4 mg total) by mouth nightly at bedtime. 08/22/19 Active aluminum hydroxide-mag trisilicate (GAVISCON) 80-20 MG Chew Tab Chew 1 tablet by mouth every 4 (four) hours as needed. Active loratadine (CLARITIN) 10 MG tablet Take 1 tablet (10 mg total) by mouth daily. Active famotidine (PEPCID) 10 MG tablet Take 1 tablet (10 mg total) by mouth daily. Active hypromellose (SYSTANE) 0.3 % ophthalmic gel as needed for Dry eyes. Active multiple vitamins-minera ls (OCUVITE ADULT 50+) Cap Take 1 capsule by mouth daily. Active Vitamin Mixture (VITAMIN E COMPLETE OR) Take 1 tablet by mouth daily. Active amLODIPine (NORVASC) 5 MG tablet Take 1 tablet (5 mg total) by mouth daily. Active famotidine (PEPCID) 10 MG tablet Take 1 tablet (10 mg total) by mouth nightly. Every other month Active Pancrelipase, Ktw-Qqfy-Ifbi, 60645-52295 units CAPSULE ENTERIC COATED PARTICLES Take 50,000 units of lipase by mouth 3 (three) times daily with meals. 1 capsule with snacks Active anastrozole (ARIMIDEX) 1 MG tablet Take 1 tablet by mouth daily. Active trospium (SANCTURA) 20 MG tablet Take 1 tablet (20 mg total) by mouth 2 (two) times daily. Active multiple vitamins-minera ls (OCUVITE ADULT 50+) Cap Take 1 capsule by mouth daily. Active loratadine (CLARITIN) 10 MG tablet Take 1 tablet (10 mg total) by mouth daily. Active B Complex-C Tab tablet Take 1 tablet by mouth daily. Active calcium carb-cholecalci ferol (OSCAL) 250-3.125 MG-MCG tablet Take 1 tablet by mouth daily. Active rOPINIRole (REQUIP) 4 MG tablet Take 1 tablet (4 mg total) by mouth nightly. Active Active Problems Problem Noted Date Diagnosed Date Syncope 08/20/2023 Social History Tobacco Use Types Packs/Day Years Used Date Smoking Tobacco: Former Cigarettes Q uit: 08/20/2003 Smokeless Tobacco: Never Tobacco Cessation:Counseling Given: Not Answered Alcohol Use Standard Drinks/Week Comments Not Currently 0 (1 standard drink = 0.6 oz pur e alcohol) [facility] Utilities Answer Date Recorded In the past 12 months has th e electric, gas, oil, or water company threatened to shut off services in your home? No 08/20/2023 Humiliation, Afraid, Rape, a nd Kick questionnaire Answer Date Recorded Within the last year, have y ou been afraid of your partner or ex-partner? Patient unable to answer 08/20/2023 Within the last year, have y ou been humiliated or emotionally abused in other ways by your partner or ex-partner? Patient unable to answer 08/20/2023 Within the last year, have y ou been kicked, hit, slapped, or otherwise physically hurt by your partner or ex-partner? Patient unable to answer 08/20/2023 Within the last year, have y ou been raped or forced to have any kind of sexual activity by your partner or ex-partner? Patient unable to answer 08/20/2023 Overall Financial Resource Strain (CARDIA) Answe r Date Recorded How hard is it for you to pa y for the very basics like food, housing, medical care, and heating? Not hard at all 08/20/2023 Hunger Vital Sign Answer Date Recorded Within the past 12 months, y ou worried that your food would run out before you got the money to buy more. Never true 08/20/19 24 Within the past 12 months, t he food you bought just didn't last and you didn't have money to get more. Never true 08/20/2023 PRAPARE - Transportation Answer Date Re corded In the past 12 months, has l ack of transportation kept you from medical appointments or from getting medications? No 07/31 In the past 12 months, has l ack of transportation kept you from meetings, work, or from getting things needed for daily living? No 08/20/2023 Housing Stability Vital Sign Answer Alden e Recorded In the last 12 months, was t here a time when you were not able to pay the mortgage or rent on time? No 08/20/2023 In the past 12 months, how m any times have you moved where you were living? 0 08/20/2023 At any time in the past 12 m [facility], were you homeless or living in a retirement (including now)? No 08/20/2023 Comments No Sex and Gender Information Value Date Recorded Sex Assigned at Not on file Legal Sex Female 5:00 PM CDT Gender Identity Not on file Sexual Orientation Not on file Last Filed Vital Signs Vital Sign Reading Time Taken Comments Blood Pressure 127/49 08/21/2023 7:53 AM CDT Pulse 78 08/21/2023 7:53 AM CDT Temperature 36.6 C (97.9 F) 08/21/2023 7:53 AM CDT Respiratory Rate 17 08/21/2023 7:53 AM CDT Oxygen Saturation 95% 08/21/2023 7:53 AM CDT Inhaled Oxygen Concentration - - Weight 53 kg (116 lb 13.5 oz) 08/21/2023 5:00 AM CDT Height 152.4 cm (5') 08/20/2023 3:52 AM CDT Body Mass Index 22.82 08/20/2023 3:52 AM CDT Plan of Treatment Health Maintenance Due Date Last Done Comments DTaP, Tdap and Td Vaccines ( 1 - Tdap) 10/12/1954 Zoster Vaccines (1 of 2) 10/12/1985 Annual Medicare Wellness Visit 10/12/2000 RSV Immunization or 60+ Years (1 - 1-dose 75+ series) 10/12/2010 Pneumococcal Vaccine: 50+ Ye ars (2 of 2 - PPSV23) 12/17/2019 12/16/2018 COVID-19 Vaccine (1 - 2023-2 5 season) 2023 Meningococcal B Vaccine Aged Out No l onger eligible based on patient's age to complete this topic Meningococcal Vaccine Aged Out No morena aviva eligible based on patient's age to complete this topic RSV Immunizations Under 20 Months Aged Out No longer eligible based on patient's age to complete this topic Insurance AETNA AETNA Advance Directives * Full Code (Latest Code Status on File) Date Activated Date Inactivated Comments 08/20/2023 10:05 AM 08/21/2023 1:30 PM Care Teams Staff Reporter Relationship Specialty Start Date End Date Luigi Nicole PA-C [address] [address] PCP - General PHYSICIAN OPTICAL GLASS INSPECTOR 08/20/23 Luigi Nicole PA-C [address] [address] PHYSICIAN OPTICAL GLASS INSPECTOR 08/20/23
--- OUTSIDE RECORDS SUMMARY | 2024-06-26 10:14 | XMS_ITS | Encounter Summary ---
Author Organization [facility] Address 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 Gender Identity Not on file Sexual Orientation Not on file documented as of this encounter Plan of Treatment Upcoming Encounters Date Type Department Care Team (Late st Contact Info) Description 10/02/2024 11:45 AM CDT Office Visit [facility] Oncology and Hematology - [place] [address] [place] [address] [address] [place] [address] [place] [address] [place] [address] [address] [place] [address] documented as of this encounter Visit Diagnoses Not on filedocumented in this encounter Care Teams Substation Designer Relationship Specialty Start Date End Date Abrahan Mcgee MD [address] [place] [address] PCP - General Family Practice 04/03/24 documented as of this encounter
--- OUTSIDE RECORDS SUMMARY | 2024-06-26 10:14 | XMS_ITS | Encounter Summary ---
Author Organization [facility] Address 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 Gender Identity Not on file Sexual Orientation Not on file documented as of this encounter Plan of Treatment Upcoming Encounters Date Type Department Care Team (Late st Contact Info) Description 10/02/2024 11:45 AM CDT Office Visit [facility] Oncology and Hematology - [place] [address] [place] [address] [address] [place] [address] [place] [address] [place] [address] [address] [place] [address] documented as of this encounter Visit Diagnoses Not on filedocumented in this encounter Care Teams Structural Steel Erection Supervisor Relationship Specialty Start Date End Date Abrahan Mcgee MD [address] [place] [address] PCP - General Family Practice 04/03/24 documented as of this encounter
--- OUTSIDE RECORDS SUMMARY | 2024-06-26 10:14 | XMS_ITS | Encounter Summary ---
Author Organization [facility] Address 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 Gender Identity Not on file Sexual Orientation Not on file documented as of this encounter Plan of Treatment Upcoming Encounters Date Type Department Care Team (Late st Contact Info) Description 10/02/2024 11:45 AM CDT Office Visit [facility] Oncology and Hematology - [place] [address] [place] [address] Prince Mir MD [address] [facility] [address] [place] [address] documented as of this encounter Visit Diagnoses Diagnosis Leiomyoma of uterus, unspecified- Primary documented in this encounter Care Teams Cigar Packer And Sorter Relationship Specialty Start Date End Date Abrahan Mcgee MD [address] [place] [address] PCP - General Family Practice 04/03/24 documented as of this encounter
--- OUTSIDE RECORDS SUMMARY | 2024-06-26 10:14 | XMS_ITS | Encounter Summary ---
Author Organization [facility] Address 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 Gender Identity Not on file Sexual Orientation Not on file documented as of this encounter Plan of Treatment Upcoming Encounters Date Type Department Care Team (Late st Contact Info) Description 10/02/2024 11:45 AM CDT Office Visit [facility] Oncology and Hematology - [place] [address] [place] [address] [address] [place] [address] [place] [address] [place] [address] [address] [place] [address] documented as of this encounter Visit Diagnoses Not on filedocumented in this encounter Care Teams City Dispatch Supervisor Relationship Specialty Start Date End Date Abrahan Mcgee MD [address] [place] [address] PCP - General Family Practice 04/03/24 documented as of this encounter
--- OUTSIDE RECORDS SUMMARY | 2024-06-26 10:14 | XMS_ITS | Encounter Summary ---
Author Organization [facility] Address [address] [place] [address] Care Team Providers Care Pbx Wire Chief Name Role Phone Abrahan Mcgee MD Primary Care Provider [phone] Encounter Details Date Type Department Care Team (Latest Contact Info) Description 11/27/2004 Outpatient Historical HIS [facility] Sneed, Oscar Medeiros MD NO ADDRESS ON FILE SCREENING MAMM-MAILG NEOPL NEC (Primary Dx) Social History Tobacco Use Types Packs/Day Years Used Date Smoking Tobacco: Never Assessed Comments Unknown Sex and Gender Information Value Date Recorded Sex Assigned at Not on file Legal Sex Female 3:33 AM COMMERCIAL 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 OFFICER Gender Identity Not on file Sexual Orientation Not on file documented as of this encounter Plan of Treatment Upcoming Encounters Date Type Department Care Team (Late st Contact Info) Description 10/02/2024 11:45 AM CDT Office Visit [facility] Oncology and Hematology - [place] [address] [place] [address] [address] [place] [address] Prince Mir MD [address] [facility] [address] [place] [address] documented as of this encounter Visit Diagnoses Diagnosis Other screening mammogram- Primary documented in this encounter Care Teams Pbx Wire Chief Relationship Specialty Start Date End Date Abrahan Mcgee MD [address] [place] [address] PCP - General Family Practice 04/03/24 documented as of this encounter
--- OUTSIDE RECORDS SUMMARY | 2024-06-26 10:14 | XMS_ITS | Encounter Summary ---
Author Organization [facility] Address [address] [place] [address] Care Team Providers Care Real Estate Office Manager Name Role Phone Abrahan Mcgee MD Primary Care Provider [phone] Encounter Details Date Type Department Care Team (Late st Contact Info) Description 12/01/2002 Outpatient Historical HIS MRI DEPT Berta Monae MD [address] [place], [place] [id number] NONRUPTURED CEREBRAL ANEURYSM (Primary Dx) Social History Tobacco Use Types Packs/Day Years Used Date Smoking Tobacco: Never Assessed Comments Unknown Sex and Gender Information Value Date Recorded Sex Assigned at Not on file Legal Sex Female 3:33 AM LAUNDRY MANAGER Gender Identity Not on file Sexual Orientation Not on file documented as of this encounter Plan of Treatment Upcoming Encounters Date Type Department Care Team (Late st Contact Info) Description 10/02/2024 11:45 AM CDT Office Visit [facility] Oncology and Hematology - [place] [address] [place] [address] [address] [place] [address] Prince Mir MD [address] [facility] [address] [place] [address] documented as of this encounter Visit Diagnoses Diagnosis Cerebral aneurysm, nonruptured- Primary documented in this encounter Care Teams Real Estate Office Manager Relationship Specialty Start Date End Date Abrahan Mcgee MD [address] [place] [address] PCP - General Family Practice 04/03/24 documented as of this encounter
--- OUTSIDE RECORDS SUMMARY | 2024-06-26 10:14 | XMS_ITS | Encounter Summary ---
Author Organization [facility] Address [address] [place] [address] Care Team Providers Care Purchasing Internship Name Role Phone Abrahan Mcgee MD Primary Care Provider [phone] Encounter Details Date Type Department Care Team (Late st Contact Info) Description 07/30/2005 Outpatient Historical HIS [facility] INTERNISTS Andre Ernst MD NO ADDRESS ON FILE Social History Tobacco Use Types Packs/Day Years Used Date Smoking Tobacco: Never Assessed Comments Unknown Sex and Gender Information Value Date Recorded Sex Assigned at Not on file Legal Sex Female 3:33 AM TELEVISION AUDIO ENGINEER Gender Identity Not on file Sexual Orientation Not on file documented as of this encounter Plan of Treatment Upcoming Encounters Date Type Department Care Team (Late st Contact Info) Description 10/02/2024 11:45 AM CDT Office Visit [facility] Oncology and Hematology - [place] [address] [place] [address] [address] [place] [address] [place] [address] [place] [address] [address] [place] [address] documented as of this encounter Visit Diagnoses Not on filedocumented in this encounter Care Teams Purchasing Internship Relationship Specialty Start Date End Date Abrahan Mcgee MD [address] [place] [address] PCP - General Family Practice 04/03/24 documented as of this encounter
--- OUTSIDE RECORDS SUMMARY | 2024-06-26 10:14 | XMS_ITS | Encounter Summary ---
Author Organization [facility] Address [address] [place] [address] Care Team Providers Care Fabrication And Assembly Supervisor Name Role Phone Abrahan Mcgee MD Primary Care Provider [phone] Encounter Details Date Type Department Care Team (Late st Contact Info) Description 02/07/2004 Outpatient Historical HIS [facility] INTERNISTS Andre Ernst MD NO ADDRESS ON FILE Social History Tobacco Use Types Packs/Day Years Used Date Smoking Tobacco: Never Assessed Comments Unknown Sex and Gender Information Value Date Recorded Sex Assigned at Not on file Legal Sex Female 3:33 AM AIRCRAFT DESIGNER Gender Identity Not on file Sexual Orientation Not on file documented as of this encounter Plan of Treatment Upcoming Encounters Date Type Department Care Team (Late st Contact Info) Description 10/02/2024 11:45 AM CDT Office Visit [facility] Oncology and Hematology - [place] [address] [place] [address] [address] [place] [address] [place] [address] [place] [address] [address] [place] [address] documented as of this encounter Visit Diagnoses Not on filedocumented in this encounter Care Teams Fabrication And Assembly Supervisor Relationship Specialty Start Date End Date Abrahan Mcgee MD [address] [place] [address] PCP - General Family Practice 04/03/24 documented as of this encounter
--- OUTSIDE RECORDS SUMMARY | 2024-06-26 10:14 | XMS_ITS | Encounter Summary ---
Author Organization [facility] Address [address] [place] [address] Care Team Providers Care Educational Assistant Teacher Name Role Phone Abrahan Mcgee MD Primary Care Provider [phone] Encounter Details Date Type Department Care Team (Late st Contact Info) Description 07/27/2003 Outpatient Historical HIS [facility] ЕКАТЕРИНА Perry, Meryl Pereira MD [address] [address] ABNORMAL FINDINGS-GI TRACT (Primary Dx) Social History Tobacco Use Types Packs/Day Years Used Date Smoking Tobacco: Never Assessed Comments Unknown Sex and Gender Information Value Date Recorded Sex Assigned at Not on file 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 Gender Identity Not on file Sexual Orientation Not on file documented as of this encounter Plan of Treatment Upcoming Encounters Date Type Department Care Team (Late st Contact Info) Description 10/02/2024 11:45 AM CDT Office Visit [facility] Oncology and Hematology - [place] [address] [facility] [address] [place] [address] Prince Mir MD [address] [facility] [address] [place] [address] documented as of this encounter Visit Diagnoses Diagnosis Nonspecific (abnormal) findings on radiological and other examination of gastrointestinal tract- Primary documented in this encounter Care Teams Educational Assistant Teacher Relationship Specialty Start Date End Date Abrahan Mcgee MD [address] [place] [address] PCP - General Family Practice 04/03/24 documented as of this encounter
--- OUTSIDE RECORDS SUMMARY | 2024-06-26 10:14 | XMS_ITS | Encounter Summary ---
Author Organization [facility] Address 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 Gender Identity Not on file Sexual Orientation Not on file documented as of this encounter Plan of Treatment Upcoming Encounters Date Type Department Care Team (Late st Contact Info) Description 10/02/2024 11:45 AM CDT Office Visit [facility] Oncology and Hematology - [place] [address] [facility] [address] [place] [address] Prince Mir MD [address] [facility] [address] [place] [address] documented as of this encounter Procedures Procedure Name Priority Date/Time Associated Diagnosis Comments COMPREHENSIVE METABOLIC PANEL Routine 03/06/2004 11:12 AM AVAYA ENGINEER documented in this encounter Results * (ABNORMAL) COMPREHENSIVE METABOLIC PANEL (03/06/2004 11:12 AM AVAYA ENGINEER) GLUCOSE 95 65 - 109 mg/dL INTERFACE SYSTEM CREATININE 1.1 0.4 - 1.2 mg/dL INTERFACE SYSTEM AST 25 12 - 32 U/L INTERFACE SYSTEM ALKALINE PHOSPHATASE 98 35 - 104 U/L INTERFACE SYSTEM BUN 17 6 - 20 mg/dL INTERFACE SYSTEM BILIRUBIN TOTAL 0.5 0.2 - 1.0 mg/dL INTERFACE SYSTEM ALBUMIN 4.6 3.4 - 4.8 g/dL INTERFACE SYSTEM TOTAL PROTEIN 8.1 6.3 - 8.6 g/dL INTERFACE SYSTEM ALT 16 0 - 31 U/L INTERFACE SYSTEM SODIUM 139 135 - 145 mmol/L INTERFACE SYSTEM POTASSIUM 4.5 3.5 - 4.9 mmol/L INTERFACE SYSTEM CHLORIDE 100 96 - 108 mmol/L INTERFACE SYSTEM CO2 27 22 - 30 mmol/L INTERFACE SYSTEM CALCIUM 10.9(H) 8.6 - 10.2 mg/dL INTERFACE SYSTEM Comment:Results confirmed by 2nd methodology. 03/06/2004 11:1 2 AM AVAYA ENGINEER us Andre Ernst MD CHEMISTRY ORDERABLES Final Res ult INTERFACE SYSTEM Refer to clinic/hospital department documented in this encounter Visit Diagnoses Diagnosis Hypopotassemia- Primary documented in this encounter Care Teams Wheel Alignment Mechanic Relationship Specialty Start Date End Date Abrahan Mcgee MD [address] [place] [address] PCP - General Family Practice 04/03/24 documented as of this encounter
--- OUTSIDE RECORDS SUMMARY | 2024-06-26 10:14 | XMS_ITS | Encounter Summary ---
Author Organization [facility] Address 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 Oncology and Hematology - [place] [address] [place] [address] [address] [place] [address] Prince Mir MD [address] [place] [address] [address] [place] [address] documented as of this encounter Visit Diagnoses Diagnosis Unspecified symptom associated with female genital organs- Primary documented in this encounter Care Teams Resizer Operator Relationship Specialty Start Date End Date Abrahan Mcgee MD [address] [place] [address] PCP - General Family Practice 04/03/24 documented as of this encounter
--- OUTSIDE RECORDS SUMMARY | 2024-06-26 10:14 | XMS_ITS | Encounter Summary ---
Author Organization [facility] Address 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 Gender Identity Not on file Sexual Orientation Not on file documented as of this encounter Plan of Treatment Upcoming Encounters Date Type Department Care Team (Late st Contact Info) Description 10/02/2024 11:45 AM CDT Office Visit [facility] Oncology and Hematology - [place] [address] [place] [address] [address] [place] [address] [place] [address] [place] [address] [address] [place] [address] documented as of this encounter Visit Diagnoses Not on filedocumented in this encounter Care Teams Retort Setter Relationship Specialty Start Date End Date Abrahan Mcgee MD [address] [place] [address] PCP - General Family Practice 04/03/24 documented as of this encounter
--- OUTSIDE RECORDS SUMMARY | 2024-06-26 10:14 | XMS_ITS | Encounter Summary ---
Author Organization [facility] Address 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 [address] [place] [address] documented as of this encounter Visit Diagnoses Not on filedocumented in this encounter Care Teams Diesel Technician Mechanic Relationship Specialty Start Date End Date Abrahan Mcgee MD [address] [place] [address] PCP - General Family Practice 04/03/24 documented as of this encounter
--- OUTSIDE RECORDS SUMMARY | 2024-06-26 10:14 | XMS_ITS | Encounter Summary ---
Author Organization [facility] Address 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 Gender Identity Not on file Sexual Orientation Not on file documented as of this encounter Plan of Treatment Upcoming Encounters Date Type Department Care Team (Late st Contact Info) Description 10/02/2024 11:45 AM CDT Office Visit [facility] Oncology and Hematology - [place] [address] [facility] [address] [place] [address] Prince Mir MD [address] [facility] [address] [place] [address] documented as of this encounter Procedures Procedure Name Priority Date/Time Associated Diagnosis Comments ALPHA FETOPROTEIN TUMOR MARKER Routine 11/27/2004 11:54 AM CDT CBC WITH DIFFERENTIAL Routine 11/27/2004 11:54 AM CDT CBC WITH DIFFERENTIAL Routine 11/27/2004 11:54 AM CDT C-REACTIVE PROTEIN Routine 11/27/2004 11 :54 AM CDT LIPASE Routine 11/27/2004 11:54 AM CDT AMYLASE Routine 11/27/2004 11:54 AM CDT HEPATIC FUNCTION PANEL Routine 11/27/2004 11:54 AM CDT BASIC METABOLIC PANEL Routine 11/27/2004 11:54 AM CDT documented in this encounter Results * ALPHA FETOPROTEIN TUMOR MARKER (11/27/2004 11:54 AM CDT) [facility] ALPHA FETOPROTEIN TUMOR MARKER 2.2 ng/mL INTERFACE SYSTEM Comment: This test was performed using the Edvivo Immulite 2000 Assay. REFERENCE RANGE: <6.1 THE USE OF AFP A TUMOR MARKER IN FEMALES IS NOT RECOMMENDED. Lab test performed by: [facility] [address] [place] [address] EVELINA AMOS MD 11/27/2004 11:5 4 AM CDT Meryl Perry MD CHEMISTRY ORDERABLES Fin al Result INTERFACE SYSTEM Refer to clinic/hospital department * CBC WITH DIFFERENTIAL (11/27/2004 11:54 AM CDT) [facility] NEUTROPHILS 67 45 - 70 % INTERFAC E SYSTEM LYMPHOCYTES 23 16 - 45 % INTERFAC E SYSTEM MONOCYTES 8 3 - 13 % INTERFACE SYSTEM EOSINOPHILS 1 0 - 7 % INTERFAC E SYSTEM BASOPHILS 1 0 - 2 % INTERFACE SYSTEM NEUTROPHIL ABSOLUTE 5.45 1.90 - 7.00 K/uL INTERFACE SYSTEM LYMPHOCYTE ABSOLUTE 1.82 0.70 - 4.50 K/uL INTERFACE SYSTEM MONOCYTE ABSOLUTE 0.68 0.10 - 1.30 K/uL INTERFACE SYSTEM EOSINOPHIL ABSOLUTE 0.10 0.00 - 0.70 K/uL INTERFACE SYSTEM BASOPHILS ABSOLUTE 0.04 0.00 - 0.20 K/uL INTERFACE SYSTEM 11/27/2004 11:5 4 AM CDT Meryl Perry MD HEMATOLOGY ORDERABLES Fi nal Result Performing Organization Address [facility] de Phone Number INTERFACE SYSTEM Refer to clinic/hospital department * CBC WITH DIFFERENTIAL (11/27/2004 11:54 AM CDT) WBC 8.1 4.0 - 9.8 K/uL INTERFACE SYSTEM RBC 4.24 3.90 - 4.90 M/uL INTERFACE SYSTEM HEMOGLOBIN 13.8 11.8 - 14.8 g/dL INTERFACE SYSTEM HEMATOCRIT 40.0 35.5 - 44.0 % INTERFACE SYSTEM MCV 94.3 82.0 - 99.0 fL INTERFACE SYSTEM MCH 32.5 27.2 - 32.6 pg INTERFACE SYSTEM MCHC 34.5 31.5 - 35.5 % INTERFACE SYSTEM RDW 12.9 11.5 - 14.5 % INTERFACE SYSTEM RDW-STDEV 44.1 37.1 - 48.7 fL INTERFACE SYSTEM PLATELETS 269 140 - 350 K/uL INTERFACE SYSTEM MPV 9.3 9.3 - 12.4 fL INTERFACE SYSTEM 11/27/2004 11:5 4 AM CDT Meryl Perry MD HEMATOLOGY ORDERABLES Fi nal Result Performing Organization Address [facility] Phone Number INTERFACE SYSTEM Refer to clinic/hospital department * (ABNORMAL) AMYLASE (11/27/2004 11:54 AM CDT) AMYLASE 141(H) 28 - 100 U/L INTERFACE SYSTEM 11/27/2004 11:5 4 AM CDT Meryl Perry MD CHEMISTRY ORDERABLES Fin al Result Performing Organization Address [facility] Co de Phone Number INTERFACE SYSTEM Refer to clinic/hospital department * (ABNORMAL) LIPASE (11/27/2004 11:54 AM CDT) LIPASE 97(H) 13 - 60 U/L INTERFAC E SYSTEM 11/27/2004 11:5 4 AM CDT Meryl Perry MD CHEMISTRY ORDERABLES Fin alana Result Performing Organization Address [facility] Phone Number INTERFACE SYSTEM Refer to clinic/hospital department * C-REACTIVE PROTEIN (11/27/2004 11:54 AM CDT) CRP 0.5 0.0 - 0.8 mg/dL INTERFACE SYSTEM 11/27/2004 11:5 4 AM CDT Meryl Perry MD CHEMISTRY ORDERABLES Fin alana Result Performing Organization Address [facility] Number INTERFACE SYSTEM Refer to clinic/hospital department * HEPATIC FUNCTION PANEL (11/27/2004 11:54 AM CDT) AST 22 12 - 32 U/L INTERFACE SYSTEM ALKALINE PHOSPHATASE 79 35 - 104 U/L INTERFACE SYSTEM BILIRUBIN TOTAL 0.3 0.2 - 1.0 mg/dL INTERFACE SYSTEM ALBUMIN 4.2 3.4 - 4.8 g/dL INTERFACE SYSTEM TOTAL PROTEIN 7.6 6.3 - 8.6 g/dL INTERFACE SYSTEM ALT 13 0 - 31 U/L INTERFACE SYSTEM BILIRUBIN DIRECT 0.1 0.0 - 0.3 mg/dL INTERFACE SYSTEM 11/27/2004 11:5 4 AM CDT Meryl Perry MD CHEMISTRY ORDERABLES Amarjit warner Result Performing Organization Address [facility] Phone Number INTERFACE SYSTEM Refer to clinic/hospital department * (ABNORMAL) BASIC METABOLIC PANEL (11/27/2004 11:54 AM CDT) GLUCOSE 116(H) 65 - 109 mg/dL INTERFACE SYSTEM CREATININE 0.9 0.4 - 1.2 mg/dL INTERFACE SYSTEM CALCIUM 9.7 8.6 - 10.2 mg/dL INTERFACE SYSTEM BUN 15 6 - 20 mg/dL INTERFACE SYSTEM SODIUM 138 135 - 145 mmol/L INTERFACE SYSTEM POTASSIUM 3.9 3.5 - 4.9 mmol/L INTERFACE SYSTEM CHLORIDE 104 96 - 108 mmol/L INTERFACE SYSTEM CO2 26 22 - 30 mmol/L INTERFACE SYSTEM 11/27/2004 11:5 4 AM CDT Meryl Perry MD CHEMISTRY ORDERABLES Fin al Result INTERFACE SYSTEM Refer to clinic/hospital department documented in this encounter Visit Diagnoses Diagnosis Abdominal pain, right lower quadrant- Primary documented in this encounter Care Teams Road Marker Relationship Specialty Start Date End Date Abrahan Mcgee MD [address] [place] [address] PCP - General Family Practice 04/03/24 documented as of this encounter
== END 2024-06-26 09:23 | disposition home or self-care (01) ==
PROVIDERS: PCP Family Medicine; Visit Provider Family Medicine
DX: D25.9 Leiomyoma of uterus, unspecified (principal); I31.39 Other pericardial effusion (noninflammatory); Z90.49 Acquired absence of other specified parts of digestive tract; N28.1 Cyst of kidney, acquired; I70.0 Atherosclerosis of aorta; M47.9 Spondylosis, unspecified; Z96.641 Presence of right artificial hip joint
CPT/HCPCS: 74177; Q9967

== ENCOUNTER 2024-06-27 11:26 | Emergency (ER) | payer MEDICARE, SELFPAY ==
[2024-06-27 11:32] VITALS: BP 159/59; PULSE 67; RESP 18; TEMP 36.2; O2SAT 100
--- NOTE | 2024-06-27 11:54 | ED_ITS ---
HPI - URI/Sore Throat General Chief Complaint: Upper Respiratory Infection Stated Complaint: R ear ache,body aches,sinus pressure Time Seen by Provider: 06/27/24 11:57 Source: patient, RN notes reviewed and old records reviewed Mode of arrival: ambulatory Limitations: no limitations History of Present Illness HPI Narrative: 88-year-old female presents to the [facility] with a 2 day history of right ear pressure, forehead pressure, cheek pressure. no treatment prior to arrival Related Data Home Medications ?Medication ?Instructions ?Recorded ?Confirmed ?Last Taken ?Type aluminum hydrox-magnesium carb 95 15 ml PO PRN PRN Heartburn 05/06/21 06/27/24 07/27/21 History mg-358 mg/15 mL oral suspension (GavisRedeem&Get) vit C,E,zinc,copper-bnyvz2a 250 1 cap PO DAILY 05/13/21 06/27/24 07/27/21 History mg-lutein 5 mg-zeaxanthin 1 mg capsule (Ocuvite Adult 50 Plus) artificial 1 drp EACH EYE ONCE PRN Dry Eye(S) 12/01/21 06/27/24 Unknown History tears(tokigtt-emqbuazc-nebrbsc) 0.1 %-0.3 %-0.2 % eye drops (GenTeal Tears Moderate) anastrozole 1 mg tablet 1 mg PO DAILY 07/07/22 06/27/24 Unknown History fluticasone propionate 50 1 spray intranasal BID PRN 02/08/23 06/27/24 Unknown History mcg/actuation nasal Congestion spray,suspension (Flonase Allergy Relief) loratadine 10 mg tablet (Claritin) 10 mg PO DAILY 02/08/23 06/27/24 Unknown History calcium 600 mg (as 1 tablet PO DAILY 08/30/23 06/27/24 Unknown History carbonate)-vitamin D3 10 mcg (400 unit) tablet (Calcium 600 + D(3)) ascorbic acid (vitamin C) 1,500 mg 1,500 mg PO Q12H 02/14/24 06/27/24 Unknown History tablet,extended release mmtsgo-xzbyvkde-yidtvwi See Rx Instructions PO .COMPLEX 02/14/24 06/27/24 Unknown History 25,000-85,000-136,000 unit capsule,delayed rel trospium 20 mg tablet 20 mg PO BID 06/19/24 06/27/24 Unknown History Allergies Allergy/AdvReac Type Severity Reaction Status Date / Time amoxicillin Allergy Mild Nausea AND Verified 06/27/24 11:54 ITCHING esomeprazole Allergy Unknown Itching Verified 06/27/24 11:54 pantoprazole Allergy Unknown Itching Verified 06/27/24 11:54 rabeprazole Allergy Unknown Itching Verified 06/27/24 11:54 codeine AdvReac Unknown N/V Verified 06/27/24 11:54 Review of Systems Review of Systems: All systems reviewed & are unremarkable except as noted in HPI and below Constitutional: Constitutional: Reports no additional constitutional complaints ENT: Reports as per HPI Cardiovascular: Cardiovascular: Reports no additional cardiovascular complaints, Denies chest pain and Denies dyspnea Respiratory: Respiratory: Reports no additional respiratory complaints, Denies chest congestion, Denies cough and Denies dyspnea Musculoskeletal: Musculoskeletal: Reports no additional musculoskeletal complaints Integumentary/Breasts: Skin/Breast: Reports system reviewed and no additional complaints, except as docu [facility] Past Medical History Medical History (Updated 06/27/24 @ 20:16 by Shila Cardoso APRN) Bilateral carpal tunnel syndrome Fracture of greater tuberosity of left humerus Ataxia Peripheral neuropathy Acute pain of left shoulder Restless legs syndrome Benign essential tremor Ductal carcinoma in situ of right breast Acid reflux Bruises easily Urinary incontinence Hypertension Arthritis Anemia Surgical History Surgical History Status post open reduction and internal fixation (ORIF) of fracture (~09/03/23) Left greater tuberosity fracture S/P lumpectomy, right breast H/O right breast biopsy (02/19/23) DUCTAL CARCINOMA IN SITU OF RIGHT BREAST Hx of cataract surgery History of hip replacement History of hemorrhoidectomy History of colonoscopy History of repair of hiatal hernia History of ERCP History of esophagogastroduodenoscopy (EGD) History of cholecystectomy Family History Family History Sibling Family history of diabetes mellitus in first degree relative Family history of lymphoma Family history of malignant neoplasm of kidney Mother , 1 month after childbirth in 1936 No problems noted. Father Malignant brain tumor Sibling Seizures COPD (chronic obstructive pulmonary disease) Lymphoma Sibling Diabetes mellitus Hypertension Heart disease Bone cancer Brain tumor Social History Social History Smoking packs per day: 0.5 Smoking cigarettes per day: 10.0 Years smoked: 49 Smoking pack-years: 24.50 Smoking status: Former smoker Tobacco type: cigarettes Second hand tobacco smoke exposure: No Smoking end date: 03/01/00 Alcohol intake: never Substance use: current Substance use type: does not use Other substance usage details: 15MG CBD FOR PAIN Do You Feel Safe in your Home?: Yes Lack of Transportation: No Lack of Food: Never True Current Housing: I Have Housing Concerned About Future Housing: No Difficulty Paying Gas/Electric Bills: No Difficulty Paying for Meds: No Currently Unemployed: No Education: High School Diploma/GED Difficulty w/ Childcare or Family Care: No Living arrangements: with family Additional living arrangements comments: Occupation/Education: retired Gender identity (if verbalized by the patient): Female Sexual Orientation (if Verbalized by the Patient): Straight or Heterosexual Spiritual care concerns: No Comments At the time of my signature, I reviewed and agree with the nursing past medical, surgical, social, and family history. There is no relevant family history pertinent to the patient complaint. Exam Const: General: cooperative, healthy appearing, comfortable, no acute distress, well developed, alert and well nourished Nutritional Appearance: well nourished Orientation/consciousness: patient oriented x3 Limitations: no limitations HENMT: Head: normal to inspection Ears: hearing grossly normal bilaterally, external ears normal, TM's normal bilaterally, EAC's normal, mastoids normal and no periauricular adenopathy Face/Nose/Sinus: Normal external nose present, Normal nasal mucous membranes and turbinates present and No nasal discharge present Mouth: Yes Normal oral and palatal mucosa present, Yes lip normal, Yes tongue normal and Yes moist mucous membranes Throat: posterior oropharynx normal, uvula midline and no uvular edema Eyes: General: appearance normal, both eyes and all related structures Alignment and Position: alignment normal Neck: Neck: normal visual inspection, full ROM, no lymphadenopathy and no meningeal signs Chest: Chest palpation & inspection: normal inspection of the chest Resp: Effort & Inspection: normal respiratory effort and able to speak in complete sentences Auscultation: clear to auscultation bilaterally, no crackles, no rales, no rhonchi and no wheezes Cardio: Rate: regular rate Skin: General skin exam: normal color and no rashes or lesions noted Neuro: General: patient oriented x3, gait normal, moves all extremities and no meningeal signs Cognition (Neuro): normal cognition Speech: normal speech Gait exam (Neuro): Normal gait present Extrem: General: normal to inspection, full ROM, capillary refill normal and normal gait Psych: Appearance: grossly normal and well kempt Mental Status: mental status grossly normal Speech and movement: Normal speech and movement present and Clear speech present Affect: normal affect Attitude: cooperative Course Course Level of Care: Express Care Visit Vital Signs Vital signs: Vital Signs Temperature 97.2 F L 06/27/24 11:32 Pulse Rate 67 06/27/24 11:32 Respiratory Rate 18 06/27/24 11:32 Blood Pressure 159/59 H 06/27/24 11:32 Pulse Oximetry 100 06/27/24 11:32 Oxygen Delivery Room Air 06/27/24 11:32 Temperature 97.2 F L 06/27/24 11:32 Pulse Rate 67 06/27/24 11:32 Respiratory Rate 18 06/27/24 11:32 Blood Pressure 159/59 H 06/27/24 11:32 Pulse Oximetry 100 06/27/24 11:32 Oxygen Delivery Room Air 06/27/24 11:32 Reviewed MDM - URI/Sore Throat MDM Narrative Medical decision making narrative: Patient sitting in exam room. Patient is nontoxic, vitals stable. Patient presents with 2 day history of URI symptoms. No treatment prior to arrival, flu COVID are negative. No acute findings noted that on exam Patient appropriate for outpatient treatment and close follow-up Discharge instructions reviewed with patient, as well as provided in writing per nursing staff. The instructions also include specific and strict return/GO TO THE ER as well as f/u information. All questions have been answered, and the patient deny any further questions with discharge and discharge plan. Some parts of this dictation were generated by voice recognition software and may contain typographical and/or grammatical inaccuracies. Lab Data Labs: Lab Results 06/27/24 Range/Units 11:37 POC Influenza A Ag Negative (Negative) POC Influenza B Ag Negative (Negative) POC SARS CoV-2 Ag Negative (Negative) Reviewed Critical Care Time Critical Care Time Critical Care Time: No Discharge Plan Discharge Clinical Impression: Sinusitis Qualifiers: Sinusitis location: unspecified location Patient Disposition: Home Condition: Stable Instructions: Antibiotic Form, Sinusitis (ED) Additional Instructions: Your rapid COVID test were negative Your rapid flu test was negative Your symptoms are likely due to a viral illness, which is not treated with antibiotics. Typically viral infections last 7-10 days, can linger for couple of weeks. It is very important to treat your symptoms. Drink plenty of water, Gatorade, Pedialyte, ice pops or Jell-O. -take Tylenol per package instructions -Antihistamine medication such as Zyrtec/Claritin/Tiffanie during the day can help improve symptoms. -doing daily nasal irrigations can help relieve pressure your sinuses. Things like a Neti pot -Use Flonase twice a day for 5 days then daily to help reduce the inflammation and dry up your sinuses. -You can also use Coricidin HBP for sinus. Be sure to drink plenty of water with this medication, Water is a natural decongestant -Frequent hand washing or hand strip cleaner is one of the best ways to prevent spread of infection. -Using a vaporizer or humidifier at night will also help thin secretions and help with coughing up phlegm. -Follow up with primary care provider in 7-10 days if condition is not improving - For new or worsening symptoms go directly to the nearest ER Patient Language: Kyrgyz Prescriptions: No Action Ocuvite Adult 50 Plus 250-5-1 mg capsule 1 cap PO DAILY Gaviscon 95-358 mg/15 mL suspension 15 ml PO PRN PRN (Reason: Heartburn) Rx Instructions: OTC GenTeal Tears Moderate 0.1-0.3-0.2 % drops 1 drp EACH EYE ONCE PRN (Reason: Dry Eye(S)) anastrozole 1 mg tablet 1 mg PO DAILY ascorbic acid (vitamin C) 1,500 mg tablet extended release 1,500 mg PO Q12H gkvswa-qsfutymm-leoekmm 25,000-85,000- 136,000 unit capsule,delayed release(DR/EC) See Rx Instructions PO .COMPLEX Rx Instructions: 2 with meal and 1 with a snack orally; trospium 20 mg tablet 20 mg PO BID Rx Instructions: administer on an empty stomach lidocaine 5 % adhesive patch,medicated 2 patch topical DAILY Qty: 30 6RF Rx Instructions: leave on most painful area for up to 12 hrs loratadine [Claritin] 10 mg Tablet 10 mg PO DAILY fluticasone propionate [Flonase Allergy Relief] 50 mcg/actuation spray,suspension 1 spray intranasal BID PRN (Reason: Congestion) Rx Instructions: administer into each nostril calcium carbonate-vitamin D3 [Calcium 600 + D(3)] 600 mg-10 mcg (400 unit) Tablet 1 tablet PO DAILY montelukast [Singulair] 10 mg tablet 10 mg PO QHS Qty: 90 1RF amlodipine 5 mg tablet 2.5 mg PO DAILY Qty: 90 1RF pregabalin 25 mg capsule 25 mg PO BID Qty: 60 2RF Follow-up/Referrals: Abrahan Mcgee MD [Primary Care Provider] - 2 Weeks ([facility] follow up ) Time of Disposition: 12:08
[2024-06-27 12:07] LABS: EDCOVIDSCREEN Negative (Negative); EDINFLUASCREEN Negative (Negative); EDINFLUBSCREEN Negative (Negative)
== END 2024-06-27 12:10 | disposition home or self-care (01) ==
PROVIDERS: Emergency Provider Nurse Practitioner; PCP Family Medicine
DX: J32.9 Chronic sinusitis, unspecified (principal); Z20.822 Contact with and (suspected) exposure to COVID-19; Z87.891 Personal history of nicotine dependence; I10 Essential (primary) hypertension; G62.9 Polyneuropathy, unspecified; G25.81 Restless legs syndrome; K21.9 Gastro-esophageal reflux disease without esophagitis; M19.90 Unspecified osteoarthritis, unspecified site; G25.0 Essential tremor
CPT/HCPCS: 87426; 87804; 99212; G0463

== ENCOUNTER 2024-07-03 12:38 | Outpatient (CLI) | payer MEDICARE, SELFPAY ==
--- OUTSIDE RECORDS SUMMARY | 2024-07-03 12:58 | XMS_ITS | Encounter Summary ---
Author Organization [facility] Address [address] [place] [address] Phone Care Team Providers Care Coal Loader Name Role Phone Krishna Medina MD Unavailable [phone] Luigi Nicole Primary Care Provider Lina Yates NP Unavailable [phone] Yogesh Corbett DO Primary Care Provider [phone] Abrahan Mcgee MD Primary Care Provider [phone] Encounter Details Date Type Department Care Team (Late st Contact Info) Description 02/05/2022 Telephone [facility] Surgery [address] [facility] 5th [place] [address] [place] [address] Akila Toussaint Social History Tobacco [...] on file Legal 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:42 PM MANAGER 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 Gender Identity Not on file Sexual Orientation Not on file documented as of this encounter Plan of Treatment Not on file documented as of this encounter Visit Diagnoses Not on filedocumented in this encounter Care Teams Coal Loader Relationship Specialty Start Date End Date Luigi Nicole PA [address] [place] [address] [address] [place] [address] PCP - General Physician C Iron Worker 04/09/21 12/01/23 Yogesh Corbett DO [address] [place] [address] PCP - General Internal Medicine 12/02/23 06/05/24 Abrahan Mcgee MD [address] [place] [address] PCP - General Family Medicine 06/06/24 Krishna Medina MD [address] [address] 03/17/19 Lina Yates NP [address] [place] [address] [address] [place] [address] Nurse Practitioner 11/12/22 documented as of this encounter
--- OUTSIDE RECORDS SUMMARY | 2024-07-03 12:59 | XMS_ITS | Encounter Summary ---
Author Organization [facility] Address [address] [place] [address] Care Team Providers Care Tobacco Roller Name Role Phone Abrahan Mcgee MD Primary Care Provider [phone] Reason for Visit * Diagnostic Imaging (Routine) - Closed Specialty Diagnoses / Procedures Referred By Contac t Referred To Contact Procedures Breast Imaging Diagnostic Outside Reference Aft, Sweta Gleason [place] PhD [address] [place] [address] Phone: tel: fax: Referral ID Status Reason Start Date Expiration Date Visits Re quested Visits Authorized [id number] Closed 01/19/2022 02/18/2023 1 1 Encounter Details Date Type Department Care Team (Late st Contact Info) Description 07/21/2016 Hospital Encounter [facility] [address] [place] [address] [id number] Social History Tobacco Use Types Packs/Day Years [...] on file Legal 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:42 PM 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 There will be no report generated by a [facility] Radiologist. Narrative [facility] - 01/19/2022 10:56 AM PROPERTY CONDITION ASSESSOR EXAMINATION: Images For Reference Purposes Only us Sweta Conteh MD PhD IMG MAMMO PROCEDURES Final Result [facility] documented in this encounter Visit Diagnoses Not on filedocumented in this encounter Care Teams Tobacco Roller Relationship Specialty Start Date End Date Abrahan Mcgee MD PCP - General 10/06/11 09/09/16 documented as of this encounter
--- OUTSIDE RECORDS SUMMARY | 2024-07-03 12:59 | XMS_ITS | Encounter Summary ---
Author Organization [facility] Address [address] [place] [address] Care Team Providers Care Referral Clerk Name Role Phone Krishna Medina MD Primary Care Provider [phone] Reason for Visit * Diagnostic Imaging (Routine) - Closed Specialty Diagnoses / Procedures Referred By Contac t Referred To Contact Procedures Breast Imaging Screening Outside Reference Aft, Sweta Gleason MD PhD [address] [place] [address] Phone: tel: fax: Referral ID Status Reason Start Date Expiration Date Visits Re quested Visits Authorized [id number] Closed 01/19/2022 02/18/2023 1 1 Encounter Details Date Type Department Care Team (Late st Contact Info) Description 07/23/2017 Hospital Encounter [facility] [address] [place], [place] [id number] Social History Tobacco Use Types Packs/Day Years [...] on file Legal 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:42 PM 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 There will be no report generated by a [facility] Radiologist. Narrative [facility] - 01/19/2022 10:55 AM LABORATORY SAMPLER EXAMINATION: Images For Reference Purposes Only us Sweta Conteh MD PhD IMG MAMMO PROCEDURES Final Result [facility] documented in this encounter Visit Diagnoses Not on filedocumented in this encounter Care Teams Referral Clerk Relationship Specialty Start Date End Date Krishna Medina MD [address] [address] PCP - General 10/15/16 03/16/19 documented as of this encounter
--- OUTSIDE RECORDS SUMMARY | 2024-07-03 12:59 | XMS_ITS | Clinical Summary ---
Author Organization [facility] Address [address] [place] [address] Care Team Providers Care Monitor Tech Name Role Phone Krishna Medina MD Unavailable [phone] Lina Yates NP Unavailable [phone] Abrahan Mcgee MD Primary Care Provider Allergies Active Allergy Reactions Criticality Noted Date [...] 2021 Assessment & Plan (02/02/2022 4:10 PM COLLATOR OPERATOR): Well healed. Removed BCL today without complications. [...] 04/28/2019 Assessment & Plan (04/28/2019 12:28 PM COLLATOR OPERATOR): Monitor. Discussed signs and symptoms of Retinal tears or detachments. Pt understands to call immediately if noted. Subjective vision disturbance 04/28/2019 Assessment & Plan (04/28/2019 12:29 PM COLLATOR OPERATOR): Seeing pink dots No hemorrhages or retinal [...] changes. Assessment & Plan (04/28/2019 12:27 PM COLLATOR OPERATOR): Monitor closely Retinal hole of left eye [...] Description 06/06/2024 11:30 AM CDT Office Visit [facility] [address] 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); Retinal hole of left eye 06/06/2024 11:20 AM CDT Imaging Exam [facility] [address] [id number] Intermediate stage nonexudative age-related macular degeneration of [...] on file Legal 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:42 PM COLLATOR OPERATOR Gender Identity Not on file Sexual [...] Advance Directives For more information, please contact: [phone] * Full Code (Latest Code Status on File) Date Activated Date Inactivated Comments 11/10/2021 10:25 AM 11/10/2021 3:44 PM * Full Code Date Activated Date Inactivated Comments 09/06/2019 9:17 AM 09/06/2019 3:17 PM * Full Code Date Activated Date Inactivated Comments 07/11/2018 9:22 AM 07/11/2018 4:10 PM Care Teams Monitor Tech Relationship Specialty Start Date End Date Abrahan Mcgee MD [address] [place] [address] PCP - General Family Medicine 06/06/24 Krishna Medina MD [address] [address] 03/17/19 Lina Yates NP [address] [address] Nurse Practitioner 11/12/22
--- OUTSIDE RECORDS SUMMARY | 2024-07-03 12:59 | XMS_ITS | Referral Summary ---
Author Organization [facility] Address [address] [facility] [place] [address] Care Team Providers Care Wood Barker Name Role Phone Krishna Medina MD Unavailable [phone] Lina Yates NP Unavailable Abrahan Mcgee MD Primary Care Provider Encounters Date Type Department Care Team Description 06/06/2024 11:20 AM CDT Imaging Exam [facility] [address] [facility] [address] [place] [id number] Intermediate stage nonexudative age-related macular degeneration of both eyes 06/06/2024 11:30 AM CDT Office Visit [facility] [address] [facility] 6th Floor, [address] [facility] [place] [address] Denia Lancaster, OD Intermediate stage [...] 2021 Assessment & Plan (02/02/2022 4:[address] DRILL OPERATOR): Well healed. Removed BCL today without [...] 04/28/2019 Assessment & Plan (04/28/2019 12:[address] DRILL OPERATOR): Monitor. Discussed signs and symptoms of Retinal tears or detachments. Pt understands to call immediately if noted. Subjective vision disturbance 04/28/2019 Assessment & Plan (04/28/2019 12:[address] H[address] DRILL OPERATOR): Seeing pink dots No hemorrhages or [...] changes. Assessment & Plan (04/28/2019 12:[address] H[address] DRILL OPERATOR): Monitor closely Retinal hole of left [...] on file Legal 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:42 [address] H[address]HW[address] DRILL OPERATOR Gender Identity Not on file Sexual [...] from Last 3 Months Insurance [employer] MEDICARE [facility] MEDICARE [facility] MEDICARE Advance Directives For more information, please contact: [phone] * Full Code (Latest Code Status on File) Date Activated Date Inactivated Comments 11/10/2021 10:25 AM 11/10/2021 3:44 PM * Full Code Date Activated Date Inactivated Comments 09/06/2019 9:17 AM 09/06/2019 3:17 PM * Full Code Date Activated Date Inactivated Comments 07/11/2018 9:22 AM 07/11/2018 4:10 PM Care Teams Wood Barker Relationship Specialty Start Date End Date Abrahan Mcgee MD [address] [place] [address] PCP - General Family Medicine 06/06/24 Krishna Medina MD [address] [address] 03/17/19 Lina Yates NP [address] [address] Nurse Practitioner 11/12/22
--- OUTSIDE RECORDS SUMMARY | 2024-07-03 12:59 | XMS_ITS | Patient Health Record ---
Author Organization [facility] Address [address] [address] [place] [address] Care Team Providers Care Sheet Writer Name Role Phone Luigi Peng Primary Care Provider Dhara MURCIA FOOD PROCESSOR, MICHAELLE Unavailable ALLERGIES Allergen (clinical drug ingredient) Drug/Non Drug [...] tablet Orally Twice a day Unknown Zenpep [id number] UNIT TAKE 2 CAPSULES BY MOUTH WITH [...] Gastro-esophage a l reflux disease without esophagitis (569943663) Problem Constipation, unspecified (K59.00) Active confirmed Constipation (14703010) Problem Spasm of sphincter of Oddi (K83.4) Active confirmed Spasm of sphincter of Oddi (64590297) Problem Cyst of pancreas (K86.2) Active confirmed Cyst of pancrea s (16504974) Encounters Encounter Location Date Provider Diagnosis [facility] [address] [place] [address] [place] [address] 11/02/2023 MICHAELLE MURCIA PLAN OF TREATMENT Pending Test Test Name Order Date Esophagogastroduodenoscopy (EGD) 020 Esophagogastroduodenoscopy (EGD) 020 Insurance Providers Payer Name Payer Address Payer Phone Subscriber Number Group Number Insured Name Patient Relationship to Insured Coverage Start Date Coverage End Date [employer] Medicare Advantage PPO [address] [address] [place] [address] [id number] Marshal Sanders Self - patient is the insured MEDICAL (GENERAL) HISTORY Medical History History ICD Code Arthritis GERD Depression Hx diverticular disease SOD/papillary stenosis Pancreatic cyst/IPMN Hemorrhoids Surgical History Surgery Date(Month/Year) Colonoscopy reportedly 2012 - no report available, reportedly normal EUS [place]- Interval increa se in size of cyst, still appears benign morphologically. 09/10/2016 EGD [place] Normal esophagus , intact anti reflux site found, with restricted feel. Dilated. Erosive gastropathy. Bx. Normal examined duodenum. Path- mild edema and congestion 10/15/2016 EGD/EUS 07/09/15 Dr. Hedy ferrara suspicious for achalasia. Abnormal mucosa in esophagus, gastritis, normal duodenal bulb. Dilated PD in pancreatic head. PD measured up to 5 mm, stable from last year EUS. Dilatation of the entire main CBD 07/09/2015 and CHD which measured up to 6 mm. Pneumobilia. Cystic lesion pancreatic tail 3-4 mm. Pancreatic parenchymal abnormalities consisting of diffuse echogenicity in entire pancreas concernin g for mild fatty pancreas. 7-8 cm anechoic lesion in vicinity of pancreas most likely left renal cyst also abutting spleen. Repeat 1 yr. path- mild chronic esophagitis, neg for metaplasia. EUS Dr. Lucas 05/08 with n oted prior Elodia Fundoplication, non-bleeding mild erythematous gastropathy, dilated PD measuring up 4mm in neck, pancreatic parenchymal abnormalities consisting of hyperechoic strands througout entire pancreas, focal dilatat dilatation of MPD and parenc hymal changes thought to be due to mild chronic pancreatitis, CBD without abnormality noted. Biopsies of stomach and esophagus with minimal chronic inflammation noted. EUS 06/12/14 - Dr. Trinidad No rmal EGD, dilated PD but w/o obstructive etiology. Otherwise wnl. EUS 06/07/12 - Dr. Knott - Nor mal pancreas, PD dilatation slightly larger than previous EUS. FNA performed with only pancretic cyst contents noted - pauciellular specimen. Amylase/lipase up , CEA 99.7. H pylori neg. 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 EUS on August 19, 2007 with no rmal EGD and continued mildly dilated pancreatic duct measuring 2.3 mm in the body without evidence of chronic pancreatitis or lymph nodes. ERCP on March 10, 2005 wit h findings of combined papillary stenosis, treated with biliary and pancreatic sphincterotomies, morphologic changes of the pancreatic duct consistent with chronic pancreatitis. Dual duct protective stenting was performed. Stents subsequently removed on March 012005. ERCP 2003 Lap nic 1997 Repair of femur fracture 1996 Elodia fundoplication 2007 Hip replacement 2012 EUS [place] 07/11/18 Elodia fundoplication found, wrap intact. Gastric atrophy. Gastric erythema. Dilated PD and prominently branched in main PD. Pancreatic parenchyma was normal without chronic pancreatitis. No solid mass lesion. Dilate d PD likely due to IPMN. Stable cystic lesion in pancreatic body, IPMN. Interval development of 3 tiny cysts in genu x 1 and tail x 2 Appearance of branched IPMN. Mild dilatation of the CBD. Repeat EGD 1 yr Path- gastritis EGD 04/21/2019 Normal, empiric dilatatio n performed EUS 09/06/2019 [place] Six c ystic lesions in genu of pancreas, body, tail and uncinate process. Branched IPMN. Previous cysts were stable in size and appearance Interval development of 2 di minutive cysts uncinate of pancreas. Dilated main PD up to 3 mm. Dilated CBD up to 10 mm. Repeat EUS 1 yr EUS- [place] showed 6 cystic lesions throughout pancreas. Stable in size and morphology, no further surveillance recommended d/t age 911/10/21 Biliary stent left in place and removed 03/20/08 was noted resolution of biliary and pancreatic stenosis, morphologic changes of the pain duct stone noted. Colonoscopy - Dr. Ha - re portedly 2007 and normal. Hx. of polyps in past.
--- OUTSIDE RECORDS SUMMARY | 2024-07-03 13:00 | XMS_ITS | Encounter Summary ---
Author Organization [facility] Address [address] [facility] Attn: Epic Prelude ADT FRIDA SPARROW [address] Care Team Providers Care Reception Manager Name Role Phone Abrahan Mcgee MD Primary Care Provider [phone] Encounter Details Date Type Department Care Team (Late st Contact Info) Description 08/08/1993 Outpatient Historical Andre Ernst MD NO ADDRESS ON FILE Social History Tobacco Use Types Packs/Day Years Used Date Smoking Tobacco: Never Assessed Comments Unknown Sex and Gender Information Value Date Recorded Sex Assigned at Not on file Legal Sex Female 3:33 AM SIPHONER Gender Identity Not on file Sexual Orientation Not on file documented as of this encounter Plan of Treatment Upcoming Encounters Date Type Department Care Team (Late st Contact Info) Description 10/02/2024 11:45 AM CDT Office Visit [facility] Oncology and Hematology - [place] [address] [place] [address] Dr [address] [place] [address] Prince Mir MD [address] [place] [address] [address] [place] [address] documented as of this encounter Visit Diagnoses Not on filedocumented in this encounter Care Teams Reception Manager Relationship Specialty Start Date End Date Abrahan Mcgee MD [address] [place] [address] PCP - General Family Practice 04/03/24 documented as of this encounter
--- OUTSIDE RECORDS SUMMARY | 2024-07-03 13:00 | XMS_ITS | Encounter Summary ---
Author Organization [facility] Address [address] [place] [address] Care Team Providers Care Back Roll Lathe Operator Name Role Phone Abrahan Mcgee MD Primary Care Provider [phone] Encounter Details Date Type Department Care Team (Late st Contact Info) Description 06/05/2004 Outpatient Historical HIS [facility] Andre Ernst MD NO ADDRESS ON FILE Social History Tobacco Use Types Packs/Day Years Used Date Smoking Tobacco: Never Assessed Comments Unknown Sex and Gender Information Value Date Recorded Sex Assigned at Not on file Legal Sex Female 3:33 AM STACKER OPERATOR Gender Identity Not on file Sexual Orientation Not on file documented as of this encounter Plan of Treatment Upcoming Encounters Date Type Department Care Team (Late st Contact Info) Description 10/02/2024 11:45 AM CDT Office Visit [facility] Oncology and Hematology - [place] [address] [place] [address] Dr [address] [place] [address] [place] [address] [place] [address] [address] [place] [address] documented as of this encounter Visit Diagnoses Not on filedocumented in this encounter Care Teams Back Roll Lathe Operator Relationship Specialty Start Date End Date Abrahan Mcgee MD [address] [place] [address] PCP - General Family Practice 04/03/24 documented as of this encounter
--- OUTSIDE RECORDS SUMMARY | 2024-07-03 13:00 | XMS_ITS | Encounter Summary ---
Author Organization [facility] Address [address] [place] [address] Care Team Providers Care Induction Coordination Engineer Name Role Phone Abrahan Mcgee MD Primary Care Provider [phone] Encounter Details Date Type Department Care Team (Latest Contact Info) Description 02/07/2004 Outpatient Historical HIS [facility] Andre Vidal MD NO ADDRESS ON FILE BENIGN HYPERTENSION (Primary Dx) Social History Tobacco Use Types Packs/Day Years Used Date Smoking Tobacco: Never Assessed Comments Unknown Sex and Gender Information Value Date Recorded Sex Assigned at Not on file Legal Sex Female 3:33 AM QUALITATIVE RESEARCHER Gender Identity Not on file Sexual Orientation Not on file documented as of this encounter Plan of Treatment Upcoming Encounters Date Type Department Care Team (Late st Contact Info) Description 10/02/2024 11:45 AM CDT Office Visit [facility] Oncology and Hematology - [place] [address] [place] [address] Dr [address] [place] [address] [place] [address] [place] [address] [address] [place] [address] documented as of this encounter Visit Diagnoses Diagnosis Essential hypertension, benign- Primary documented in this encounter Care Teams Induction Coordination Engineer Relationship Specialty Start Date End Date Arbahan Mcgee MD [address] [place] [address] PCP - General Family Practice 04/03/24 documented as of this encounter
--- OUTSIDE RECORDS SUMMARY | 2024-07-03 13:00 | XMS_ITS | Encounter Summary ---
Author Organization [facility] Address [address] 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 Gender Identity Not on file Sexual Orientation Not on file documented as of this encounter Plan of Treatment Upcoming Encounters Date Type Department Care Team (Late st Contact Info) Description 10/02/2024 11:45 AM CDT Office Visit [facility] Oncology and Hematology - [place] [address] [place] [address] Dr [address] [place] [address] Prince Mir MD [address] [place] [address] [address] [place] [address] documented as of this encounter Visit Diagnoses Not on filedocumented in this encounter Care Teams Campground Cleaning Attendant Relationship Specialty Start Date End Date Abrahan Mcgee MD [address] [place] [address] PCP - General Family Practice 04/03/24 documented as of this encounter
--- OUTSIDE RECORDS SUMMARY | 2024-07-03 13:00 | XMS_ITS | Clinical Summary ---
Author Organization [facility] Address [address] [facility] [place] [address] Care Team Providers Care Drop Pit Worker Name Role Phone Abrahan Mcgee MD Primary Care Provider [phone] Source Comments [facility],non-[facility] Affiliates and Associated Physician Practices is amultiple site organization consisting of ambulatory clinics and hospital sitesin [place] and [place]. This disclosure is being madepursuant to the Care Everywhere program and may not contain all information available regarding this patient. Last updated 17.[facility] [employer] Social History Tobacco Use Types Packs/Day Years Used Date Smoking Tobacco: Never Assessed Comments Unknown Sex and Gender Information Value Date Recorded Sex Assigned at Not on file Legal Sex Female 6:23 PM BRUSH STAINER Gender Identity Not on file Sexual Orientation [...] patient's age to complete this topic Insurance [facility] MANAGED MEDICARE ADV AET[employer] MEDICARE ADV SELF PAY NO INSURANCE Member Subscriber Plan / Payer (Ef fective for All Dates) Name:Marshal Sanders Member ID:Not on file Relation to Subscriber:Not on file Name:Marshal SANDERS Subscriber ID:Not on file Address: [address] [place] [address] Payer ID:Not on file Group ID:Not on file Type:Self Pay Address: [place], [place] AETNA MEDICARE ADV SELF PAY NO INSURANCE Member Subscriber Plan / Payer (Ef fective for All Dates) Name:Marshal Sanders Member ID:Not on file Relation to Subscriber:Not on file Name:Marshal SANDERS Subscriber ID:Not on file Address: [address] [place] [address] [place] [address] Payer ID:Not on file Group ID:Not on file Type:Self Pay Address: [place], [place] Care Teams Drop Pit Worker Relationship Specialty Start Date End Date Abrahan Mcgee MD [address] [place] [address] PCP - General 07/23/09
--- OUTSIDE RECORDS SUMMARY | 2024-07-03 13:00 | XMS_ITS | Encounter Summary ---
Author Organization [facility] Address [address] [place] [address] Care Team Providers Care Plastic Card Grader Cardroom Name Role Phone Abrahan Mcgee MD Primary Care Provider [phone] Encounter Details Date Type Department Care Team (Latest Contact Info) Description 10/17/2002 Outpatient Historical HIS [facility] Andre Vidal MD NO ADDRESS ON FILE PURE HYPERCHOLESTEROLEM (Primary Dx) Social History Tobacco Use Types Packs/Day Years Used Date Smoking Tobacco: Never Assessed Comments Unknown Sex and Gender Information Value Date Recorded Sex Assigned at Not on file Legal Sex Female 3:33 AM BIOMEDICAL ENGINEERING SUPERVISOR Gender Identity Not on file Sexual Orientation Not on file documented as of this encounter Plan of Treatment Upcoming Encounters Date Type Department Care Team (Late st Contact Info) Description 10/02/2024 11:45 AM CDT Office Visit [facility] Oncology and Hematology - [place] [address] [place] [address] Dr [address] [place] [address] [place] [address] [place] [address] [address] [place] [address] documented as of this encounter Visit Diagnoses Diagnosis Pure hypercholesterolemia- Primary documented in this encounter Care Teams Plastic Card Grader Cardroom Relationship Specialty Start Date End Date Abrahan Mcgee MD [address] [place] [address] PCP - General Family Practice 04/03/24 documented as of this encounter
--- OUTSIDE RECORDS SUMMARY | 2024-07-03 13:00 | XMS_ITS | Encounter Summary ---
Author Organization [facility] Address [address] [place] [address] Care Team Providers Care Jet Mechanic Name Role Phone Abrahan Mcgee MD Primary Care Provider [phone] Encounter Details Date Type Department Care Team (Late st Contact Info) Description 10/29/2000 Outpatient Historical HIS [facility] Andre Ernst MD NO ADDRESS ON FILE Social History Tobacco Use Types Packs/Day Years Used Date Smoking Tobacco: Never Assessed Comments Unknown Sex and Gender Information Value Date Recorded Sex Assigned at Not on file Legal Sex Female 3:33 AM EXTENSION FORESTER Gender Identity Not on file Sexual Orientation Not on file documented as of this encounter Plan of Treatment Upcoming Encounters Date Type Department Care Team (Late st Contact Info) Description 10/02/2024 11:45 AM CDT Office Visit [facility] Oncology and Hematology - [place] [address] [place] [address] Dr [address] [place] [address] [place] [address] [place] [address] [address] [place] [address] documented as of this encounter Visit Diagnoses Not on filedocumented in this encounter Care Teams Jet Mechanic Relationship Specialty Start Date End Date Abrahan Mcgee MD [address] [place] [address] PCP - General Family Practice 04/03/24 documented as of this encounter
--- OUTSIDE RECORDS SUMMARY | 2024-07-03 13:00 | XMS_ITS | Encounter Summary ---
Author Organization [facility] Address [address] [place] [address] Care Team Providers Care Cable Television Technician Name Role Phone Abrahan Mcgee MD Primary Care Provider [phone] Encounter Details Date Type Department Care Team (Late st Contact Info) Description 03/16/2002 Outpatient Historical HIS [facility] Andre Ernst MD NO ADDRESS ON FILE Social History Tobacco Use Types Packs/Day Years Used Date Smoking Tobacco: Never Assessed Comments Unknown Sex and Gender Information Value Date Recorded Sex Assigned at Not on file Legal Sex Female 3:33 AM STEAM FITTER SUPERVISOR Gender Identity Not on file Sexual Orientation Not on file documented as of this encounter Plan of Treatment Upcoming Encounters Date Type Department Care Team (Late st Contact Info) Description 10/02/2024 11:45 AM CDT Office Visit [facility] Oncology and Hematology - [place] [address] [place] [address] Dr [address] [place] [address] [place] [address] [place] [address] [address] [place] [address] documented as of this encounter Visit Diagnoses Not on filedocumented in this encounter Care Teams Cable Television Technician Relationship Specialty Start Date End Date Abrahan Mcgee MD [address] [place] [address] PCP - General Family Practice 04/03/24 documented as of this encounter
--- OUTSIDE RECORDS SUMMARY | 2024-07-03 13:00 | XMS_ITS | Clinical Summary ---
Author Organization [facility] Address [address] [place] [address] Phone Care Team Providers Care Outside Contractor Sales Name Role Phone Abrahan Mcgee MD Primary Care Provider [phone] Allergies Active Allergy Reactions Criticality Noted Date [...] 9 Active fluticasone propionate (FLONASE) 50 mcg/spray [place], Suspension nasal inhaler Administer 2 Sprays in [...] Data STL ABSTRACTION Provider, Abstract 04/06/2024 Refill [facility] Oncology and Hematology [facility] [address] [place] [address] Prince Mir MD Ductal carcinoma in situ (DCIS) of right breast from Last 3 Months Immunizations Immunization Administration [...] file Legal Sex Female 3:33 AM MANAGER CRITICAL CARE UNIT Gender Identity Not on file Sexual Orientation Not on file Last Filed Vital Signs Vital Sign Reading Time Taken Comments Blood Pressure 132/71 04/03/2024 2:30 PM MANAGER CRITICAL CARE UNIT Pulse 69 04/03/2024 2:30 PM MANAGER CRITICAL CARE UNIT Temperature 36.1 C (97 F) 04/03/2024 2:30 PM MANAGER CRITICAL CARE UNIT Respiratory Rate 14 04/03/2024 2:30 PM MANAGER CRITICAL CARE UNIT Oxygen Saturation 96% 04/03/2024 2:30 PM MANAGER CRITICAL CARE UNIT Inhaled Oxygen Concentration - - Weight 53.1 kg (117 lb) 04/03/2024 2:30 PM MANAGER CRITICAL CARE UNIT Height 149.9 cm (4' 11 ) 12/09/2022 2:04 PM CDT Body Mass Index 23.63 12/09/2022 2:04 PM CDT Plan of Treatment Upcoming Encounters Date Type Department Care Team (Late st Contact Info) Description 10/02/2024 11:45 AM CDT Office Visit [facility] Oncology and Hematology - [place] [address] [facility] [address] [place] [address] Prince Mir MD [address] [facility] [address] [place] [address] Health Maintenance Due Date Last Done Comments DTAP/TDAP/TD VACCINES (1 - Tdap) 10/12/1954 ZOSTER VACCINE (1 of 2) 10/12/1985 OSTEOPOROSIS SCREENING 10/12/2000 RSV VACCINE (60+ or ) (1 - 1-dose 75+ series) 10/12/2010 PNEUMOCOCCAL VACCINE 50+ YEARS (2 of 2 - PPSV23) 12/1612/16/2018 INFLUENZA VACCINE (#1) 2023 01/20/2019 Insurance [facility] Care Teams Outside Contractor Sales Relationship Specialty Start Date End Date Abrahan Mcgee MD [address] [place] [address] PCP - General Family Practice 04/03/24
--- OUTSIDE RECORDS SUMMARY | 2024-07-03 13:00 | XMS_ITS | Encounter Summary ---
Author Organization [facility] Address [address] [place] [address] Care Team Providers Care Pipe Caulker Name Role Phone Abrahan Mcgee MD Primary Care Provider [phone] Encounter Details Date Type Department Care Team (Latest Contact Info) Description 11/04/2001 Outpatient Historical HIS [facility] Andre Vidal MD NO ADDRESS ON FILE BENIGN HYPERTENSION (Primary Dx) Social History Tobacco Use Types Packs/Day Years Used Date Smoking Tobacco: Never Assessed Comments Unknown Sex and Gender Information Value Date Recorded Sex Assigned at Not on file Legal Sex Female 3:33 AM PROGRAMMING INSTRUCTOR Gender Identity Not on file Sexual Orientation Not on file documented as of this encounter Plan of Treatment Upcoming Encounters Date Type Department Care Team (Late st Contact Info) Description 10/02/2024 11:45 AM CDT Office Visit [facility] Oncology and Hematology - [place] [address] [place] [address] Dr [address] [place] [address] [place] [address] [place] [address] [address] [place] [address] documented as of this encounter Visit Diagnoses Diagnosis Essential hypertension, benign- Primary documented in this encounter Care Teams Pipe Caulker Relationship Specialty Start Date End Date Abrahan Mcgee MD [address] [place] [address] PCP - General Family Practice 04/03/24 documented as of this encounter
--- OUTSIDE RECORDS SUMMARY | 2024-07-03 13:00 | XMS_ITS | Encounter Summary ---
Author Organization [facility] Address [address] [facility] Attn: Epic Prelude ADT FR[place] SPARROW [address] Care Team Providers Care Stockroom Clerk Name Role Phone Abrahan Mcgee MD Primary Care Provider [phone] Encounter Details Date Type Department Care Team (Late st Contact Info) Description 05/03/1990 Outpatient Historical Andre Ernst MD NO ADDRESS ON FILE Social History Tobacco Use Types Packs/Day Years Used Date Smoking Tobacco: Never Assessed Comments Unknown Sex and Gender Information Value Date Recorded Sex Assigned at Not on file Legal Sex Female 3:33 AM LANDSCAPING SPECIALIST Gender Identity Not on file Sexual Orientation Not on file documented as of this encounter Plan of Treatment Upcoming Encounters Date Type Department Care Team (Late st Contact Info) Description 10/02/2024 11:45 AM CDT Office Visit [facility] Oncology and Hematology - [place] [address] [place] [address] Dr [address] [place] [address] Prince Mir MD [address] [place] [address] [address] [place] [address] documented as of this encounter Visit Diagnoses Not on filedocumented in this encounter Care Teams Stockroom Clerk Relationship Specialty Start Date End Date Abrahan Mcgee MD [address] [place] [address] PCP - General Family Practice 04/03/24 documented as of this encounter
--- OUTSIDE RECORDS SUMMARY | 2024-07-03 13:00 | XMS_ITS | Encounter Summary ---
Author Organization [facility] Address [address] [place] [address] Care Team Providers Care Hygiene Coordinator Name Role Phone Abrahan Mcgee MD Primary Care Provider [phone] Encounter Details Date Type Department Care Team (Late st Contact Info) Description 02/07/2004 Outpatient Historical HIS [facility] Andre Ernst MD NO ADDRESS ON FILE Social History Tobacco Use Types Packs/Day Years Used Date Smoking Tobacco: Never Assessed Comments Unknown Sex and Gender Information Value Date Recorded Sex Assigned at Not on file Legal Sex Female 3:33 AM CLINICAL STAFF ANESTHESIOLOGIST Gender Identity Not on file Sexual Orientation Not on file documented as of this encounter Plan of Treatment Upcoming Encounters Date Type Department Care Team (Late st Contact Info) Description 10/02/2024 11:45 AM CDT Office Visit [facility] ([facility] Oncology and Hematology - [place] [address] [place] [address] [address] [place] [address] [place] [address] [place] [address] [address] [place] [address] documented as of this encounter Visit Diagnoses Not on filedocumented in this encounter Care Teams Hygiene Coordinator Relationship Specialty Start Date End Date Abrahan Mcgee MD [address] [place] [address] PCP - General Family Practice 04/03/24 documented as of this encounter
--- OUTSIDE RECORDS SUMMARY | 2024-07-03 13:00 | XMS_ITS | Encounter Summary ---
Author Organization [facility] Address 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 Gender Identity Not on file Sexual Orientation Not on file documented as of this encounter Plan of Treatment Upcoming Encounters Date Type Department Care Team (Late st Contact Info) Description 10/02/2024 11:45 AM CDT Office Visit [facility] Oncology and Hematology - [place] [address] [place] [address] [address] [place] [address] [place] [address] [place] [address] [address] [place] [address] documented as of this encounter Visit Diagnoses Diagnosis Unspecified sinusitis (chronic)- Primary documented in this encounter Care Teams Ward Maid Relationship Specialty Start Date End Date Abrahan Mcgee MD [address] [place] [address] PCP - General Family Practice 04/03/24 documented as of this encounter
--- OUTSIDE RECORDS SUMMARY | 2024-07-03 13:00 | XMS_ITS | Encounter Summary ---
Author Organization [facility] Address 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 Gender Identity Not on file Sexual Orientation Not on file documented as of this encounter Plan of Treatment Upcoming Encounters Date Type Department Care Team (Late st Contact Info) Description 10/02/2024 11:45 AM CDT Office Visit [facility] Oncology and Hematology - [place] [address] [place] [address] Dr [address] [place] [address] Prince Mir MD [address] [facility] [address] [place] [address] documented as of this encounter Visit Diagnoses Diagnosis Cerebral aneurysm, nonruptured- Primary documented in this encounter Care Teams Hosiery Operator Relationship Specialty Start Date End Date Abrahan Mcgee MD [address] [place] [address] PCP - General Family Practice 04/03/24 documented as of this encounter
--- OUTSIDE RECORDS SUMMARY | 2024-07-03 13:00 | XMS_ITS | Encounter Summary ---
Author Organization [facility] Address [address] [place] [address] Care Team Providers Care It Security Manager Name Role Phone Abrahan Mcgee MD Primary Care Provider [phone] Encounter Details Date Type Department Care Team (Latest Contact Info) Description 06/05/2004 Outpatient Historical HIS [facility] Andre Vidal MD NO ADDRESS ON FILE BENIGN HYPERTENSION (Primary Dx) Social History Tobacco Use Types Packs/Day Years Used Date Smoking Tobacco: Never Assessed Comments Unknown Sex and Gender Information Value Date Recorded Sex Assigned at Not on file Legal Sex Female 3:33 AM MANAGER MEDICAID Gender Identity Not on file Sexual Orientation Not on file documented as of this encounter Plan of Treatment Upcoming Encounters Date Type Department Care Team (Late st Contact Info) Description 10/02/2024 11:45 AM CDT Office Visit [facility] Oncology and Hematology - [place] [address] [facility] [address] [place] [address] Prince Mir MD [address] [facility] [address] [place] [address] documented as of this encounter [...] Primary documented in this encounter Care Teams It Security Manager Relationship Specialty Start Date End Date Abrahan Mcgee MD [address] [place] [address] PCP - General Family Practice 04/03/24 documented as of this encounter
--- OUTSIDE RECORDS SUMMARY | 2024-07-03 13:00 | XMS_ITS | Encounter Summary ---
Author Organization [facility] Address 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 Gender Identity Not on file Sexual Orientation Not on file documented as of this encounter Plan of Treatment Upcoming Encounters Date Type Department Care Team (Late st Contact Info) Description 10/02/2024 11:45 AM CDT Office Visit [facility] Oncology and Hematology - [place] [address] [place] [address] [address] [place] [address] Prince Mir MD [address] [facility] [address] [place] [address] documented as of this encounter Visit Diagnoses Diagnosis Pain in joint, lower leg- Primary documented in this encounter Care Teams Activities Counselor Relationship Specialty Start Date End Date Abrahan Mcgee MD [address] [place] [address] PCP - General Family Practice 04/03/24 documented as of this encounter
--- OUTSIDE RECORDS SUMMARY | 2024-07-03 13:00 | XMS_ITS | Encounter Summary ---
Author Organization [facility] Address [address] [facility] Attn: Epic Prelude ADT [place] [address] Care Team Providers Care Orthotics Assistant Name Role Phone Abrahan Mcgee MD Primary [...] on file Legal Sex Female 3:33 AM PULP TESTER Gender Identity Not on file Sexual Orientation Not on file documented as of this encounter Plan of Treatment Upcoming Encounters Date Type Department Care Team (Late st Contact Info) Description 10/02/2024 11:45 AM CDT Office Visit [facility] Oncology and Hematology - [place] [address] [place] [address] Dr [address] [place] [address] Prince Mir MD [address] [place] [address] [address] [place] [address] documented as of this encounter Visit Diagnoses Not on filedocumented in this encounter Care Teams Orthotics Assistant Relationship Specialty Start Date End Date Abrahan Mcgee MD [address] [place] [address] PCP - General Family Practice 04/03/24 documented as of this encounter
--- OUTSIDE RECORDS SUMMARY | 2024-07-03 13:00 | XMS_ITS | Encounter Summary ---
Author Organization [facility] Address [address] [place] [address] Care Team Providers Care Front Desk Host Name Role Phone Krishna Medina MD Primary Care Provider [phone] Reason for Visit * Diagnostic Imaging (Routine) - Closed Specialty Diagnoses / Procedures Referred By Contac t Referred To Contact Procedures Breast Imaging Screening Outside Reference Aft, Sweta Gleason MD PhD [address] [place] [address] Phone: tel: fax: Referral ID Status Reason Start Date Expiration Date Visits Re quested Visits Authorized [id number] Closed 01/19/2022 02/18/2023 1 1 Encounter Details Date Type Department Care Team (Late st Contact Info) Description 08/26/2018 Hospital Encounter [facility] [address] [place], [place] [id number] Social History Tobacco Use Types Packs/Day Years [...] on file Legal 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:42 PM WATER PLUMBER Gender Identity Not on file Sexual Orientation [...] CDT) Impressions [facility] - 01/19/2022 11:04 AM WATER PLUMBER These images are for Reference purposes only and have not been reviewed by [facility] Radiology. There will be no report generated by a [facility] Radiologist. Narrative [facility] - 01/19/2022 11:04 AM WATER PLUMBER EXAMINATION: Images For Reference Purposes Only us Sweta Conteh MD PhD IMG MAMMO PROCEDURES Final Result [facility] documented in this encounter Visit Diagnoses Not on filedocumented in this encounter Care Teams Front Desk Host Relationship Specialty Start Date End Date Krishna Medina MD [address] [address] PCP - General 10/15/16 03/16/19 documented as of this encounter
--- OUTSIDE RECORDS SUMMARY | 2024-07-03 13:00 | XMS_ITS | Encounter Summary ---
Author Organization [facility] Healthcare Address [address] [place] [address] Care Team Providers Care Company Pilot Name Role Phone Krishna Medina MD Primary Care Provider [phone] Krishna Medina MD Unavailable [phone] Reason for Visit * Diagnostic Imaging (Routine) - Closed Specialty Diagnoses / Procedures Referred By Contac t Referred To Contact Procedures Breast Imaging Screening Outside Reference Aft, Sweta Gleason MD PhD [address] [place] [address] Phone: tel: fax: Referral ID Status Reason Start Date Expiration Date Visits Re quested Visits Authorized [id number] Closed 01/19/2022 02/18/2023 1 1 Encounter Details Date Type Department Care Team (Late st Contact Info) Description 09/25/2019 Hospital Encounter [facility]iology [facility] [address] [place] [id number] Social History Tobacco Use Types Packs/Day Years [...] on file Legal 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:42 PM SURGICAL TECHNOLOGIST Gender Identity Not on file Sexual Orientation [...] CDT) Impressions [facility] - 01/19/2022 11:03 AM SURGICAL TECHNOLOGIST These images are for Reference purposes only and have not been reviewed by [facility] Radiology. There will be no report generated by a [facility] Radiologist. Narrative [facility] - 01/19/2022 11:03 AM SURGICAL TECHNOLOGIST EXAMINATION: Images For Reference Purposes Only us Sweta Conteh MD PhD IMG MAMMO PROCEDURES Final Result [facility] documented in this encounter Visit Diagnoses Not on filedocumented in this encounter Care Teams Company Pilot Relationship Specialty Start Date End Date Krishna Medina MD [address] [address] PCP - General 03/17/19 04/08/21 Krishna Medina MD [address] [address] 03/17/19 documented as of this encounter
--- OUTSIDE RECORDS SUMMARY | 2024-07-03 13:00 | XMS_ITS | Encounter Summary ---
Author Organization [facility] Address [address] [place] [address] Care Team Providers Care Cook Boat Name Role Phone Abrahan Mcgee MD Primary Care Provider [phone] Encounter Details Date Type Department Care Team (Latest Contact Info) Description 11/01/2003 Outpatient Historical HIS [facility] ЕКАТЕРИНА Sneed, Oscar Medeiros MD NO ADDRESS ON FILE SCREENING MAMM-MAILG NEOPL-OTHER (Primary Dx) Social History Tobacco Use Types Packs/Day Years Used Date Smoking Tobacco: Never Assessed Comments Unknown Sex and Gender Information Value Date Recorded Sex Assigned at Not on file Legal Sex Female 3:33 AM 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 Gender Identity Not on file Sexual Orientation Not on file documented as of this encounter Plan of Treatment Upcoming Encounters Date Type Department Care Team (Late st Contact Info) Description 10/02/2024 11:45 AM CDT Office Visit [facility] Oncology and Hematology - [place] [address] [facility] [address] [place] [address] Prince Mir MD [address] [facility] [address] [place] [address] documented as of this encounter Visit Diagnoses Diagnosis Other screening mammogram- Primary documented in this encounter Care Teams Cook Boat Relationship Specialty Start Date End Date Abrahan Mcgee MD [address] [place] [address] PCP - General Family Practice 04/03/24 documented as of this encounter
--- OUTSIDE RECORDS SUMMARY | 2024-07-03 13:00 | XMS_ITS | Encounter Summary ---
Author Organization [facility] Address [address] [place] [address] Care Team Providers Care Family Readiness Support Assistant Name Role Phone Abrahan Mcgee MD Primary Care Provider [phone] Encounter Details Date Type Department Care Team (Latest Contact Info) Description 08/15/2004 Outpatient Historical HIS [facility] Andre Vidal MD NO ADDRESS ON FILE HYPOPOTASSEMIA (Primary Dx) Social History Tobacco Use Types Packs/Day Years Used Date Smoking Tobacco: Never Assessed Comments Unknown Sex and Gender Information Value Date Recorded Sex Assigned at Not on file Legal Sex Female 3:33 AM 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 SERVICE 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 Gender Identity Not on file Sexual Orientation Not on file documented as of this encounter Plan of Treatment Upcoming Encounters Date Type Department Care Team (Late st Contact Info) Description 10/02/2024 11:45 AM CDT Office Visit [facility] Oncology and Hematology - [place] [address] [facility] [address] [place] [address] Prince Mir MD [address] [facility] [address] [place] [address] documented as of this encounter [...] Primary documented in this encounter Care Teams Family Readiness Support Assistant Relationship Specialty Start Date End Date Abrahan Mcgee MD [address] [place] [address] PCP - General Family Practice 04/03/24 documented as of this encounter
--- OUTSIDE RECORDS SUMMARY | 2024-07-03 13:00 | XMS_ITS | Encounter Summary ---
Author Organization [facility] Address [address] [facility] Attn: Epic Prelude ADT [place] [address] Care Team Providers Care Applied Technologist Name Role Phone Abrahan Mcgee MD Primary Care Provider [phone] Encounter Details Date Type Department Care Team (Late st Contact Info) Description 05/19/1993 Outpatient Historical Andre Ernst MD NO ADDRESS ON FILE Social History Tobacco Use Types Packs/Day Years Used Date Smoking Tobacco: Never Assessed Comments Unknown Sex and Gender Information Value Date Recorded Sex Assigned at Not on file Legal Sex Female 3:33 AM SOCIAL SERVICE 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 Oncology and Hematology - [place] [address] [place] [address] [address] [place] [address] Prince Mir MD [address] [place] [address] [address] [place] [address] documented as of this encounter Visit Diagnoses Not on filedocumented in this encounter Care Teams Applied Technologist Relationship Specialty Start Date End Date Abrahan Mcgee MD [address] [place] [address] PCP - General Family Practice 04/03/24 documented as of this encounter
--- OUTSIDE RECORDS SUMMARY | 2024-07-03 13:00 | XMS_ITS | Encounter Summary ---
Author Organization [facility] Address 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 Gender Identity Not on file Sexual Orientation Not on file documented as of this encounter Plan of Treatment Upcoming Encounters Date Type Department Care Team (Late st Contact Info) Description 10/02/2024 11:45 AM CDT Office Visit [facility] Oncology and Hematology - [place] [address] [place] [address] Dr [address] [place] [address] [place] [address] [place] [address] [address] [place] [address] documented as of this encounter Visit Diagnoses Diagnosis Essential hypertension, benign- Primary documented in this encounter Care Teams Bliss Press Operator Relationship Specialty Start Date End Date Abrahan Mcgee MD [address] [place] [address] PCP - General Family Practice 04/03/24 documented as of this encounter
--- OUTSIDE RECORDS SUMMARY | 2024-07-03 13:00 | XMS_ITS | Encounter Summary ---
Author Organization [facility] Address [address] [place] [address] Care Team Providers Care Educational Guidance Counselor Name Role Phone Abrahan Mcgee MD Primary Care Provider [phone] Encounter Details Date Type Department Care Team [...] on file Legal Sex Female 3:33 AM HOLLOCK MAKER Gender Identity Not on file Sexual Orientation Not on file documented as of this encounter Plan of Treatment Upcoming Encounters Date Type Department Care Team (Late st Contact Info) Description 10/02/2024 11:45 AM CDT Office Visit [facility] Oncology and Hematology - [place] [address] [facility] [address] [place] [address] Prince Mir MD [address] [facility] [address] [place] [address] documented as of this encounter Visit Diagnoses Diagnosis Open wound of scalp, without mention of complication- Primary documented in this encounter Care Teams Educational Guidance Counselor Relationship Specialty Start Date End Date Abrahan Mcgee MD [address] [place] [address] PCP - General Family Practice 04/03/24 documented as of this encounter
--- OUTSIDE RECORDS SUMMARY | 2024-07-03 13:00 | XMS_ITS | Encounter Summary ---
Author Organization [facility] Address [address] [place] [address] Care Team Providers Care Software Reliability Engineer Name Role Phone Abrahan Mcgee MD Primary Care Provider [phone] Encounter Details Date Type Department Care Team (Latest Contact Info) Description 08/15/2003 Outpatient Historical HIS [facility] Adnre Vidal MD NO ADDRESS ON FILE HYPOPOTASSEMIA (Primary Dx) Social History Tobacco Use Types Packs/Day Years Used Date Smoking Tobacco: Never Assessed Comments Unknown Sex and Gender Information Value Date Recorded Sex Assigned at Not on file Legal Sex Female 3:33 AM DOG GROOMER Gender Identity Not on file Sexual Orientation Not on file documented as of this encounter Plan of Treatment Upcoming Encounters Date Type Department Care Team (Late st Contact Info) Description 10/02/2024 11:45 AM CDT Office Visit [facility] Oncology and Hematology - [place] [address] [place] [address] Dr [address] [place] [address] [place] [address] [place] [address] [address] [place] [address] documented as of this encounter Visit Diagnoses Diagnosis Hypopotassemia- Primary documented in this encounter Care Teams Software Reliability Engineer Relationship Specialty Start Date End Date Abrahan Mcgee MD [address] [place] [address] PCP - General Family Practice 04/03/24 documented as of this encounter
--- OUTSIDE RECORDS SUMMARY | 2024-07-03 13:00 | XMS_ITS | Encounter Summary ---
Author Organization [facility] Address [address] [place] [address] Care Team Providers Care Golf Course Mechanic Name Role Phone Abrahan Mcgee MD Primary Care Provider [phone] Encounter Details Date Type Department Care Team (Late st Contact Info) Description 11/26/2000 Outpatient Historical HIS [facility] Andre Ernst MD NO ADDRESS ON FILE Social History Tobacco Use Types Packs/Day Years Used Date Smoking Tobacco: Never Assessed Comments Unknown Sex and Gender Information Value Date Recorded Sex Assigned at Not on file Legal Sex Female 3:33 AM LINEMAN APPRENTICE Gender Identity Not on file Sexual Orientation Not on file documented as of this encounter Plan of Treatment Upcoming Encounters Date Type Department Care Team (Late st Contact Info) Description 10/02/2024 11:45 AM CDT Office Visit [facility] Oncology and Hematology - [place] [address] [place] [address] Dr [address] [place] [address] [place] [address] [place] [address] [address] [place] [address] documented as of this encounter Visit Diagnoses Not on filedocumented in this encounter Care Teams Golf Course Mechanic Relationship Specialty Start Date End Date Abrahan Mcgee MD [address] [place] [address] PCP - General Family Practice 04/03/24 documented as of this encounter
--- OUTSIDE RECORDS SUMMARY | 2024-07-03 13:00 | XMS_ITS | Encounter Summary ---
Author Organization [facility] Address [address] [place] [address] Care Team Providers Care Technical Support Associate Name Role Phone Abrahan Mcgee MD Primary Care Provider [phone] Encounter Details Date Type Department Care Team (Late st Contact Info) Description 08/15/2003 Outpatient Historical HIS MRI DEPT Meryl Perry MD [address] [address] ABDOMINAL PAIN RUQ (Primary Dx) Social History Tobacco Use Types Packs/Day Years Used Date Smoking Tobacco: Never Assessed Comments Unknown Sex and Gender Information Value Date Recorded Sex Assigned at Not on file Legal Sex Female 3:33 AM CONTAINER MAKER Gender Identity Not on file Sexual Orientation Not on file documented as of this encounter Plan of Treatment Upcoming Encounters Date Type Department Care Team (Late st Contact Info) Description 10/02/2024 11:45 AM CDT Office Visit [facility] Oncology and Hematology - [place] [address] [facility] [address] [place] [address] Prince Mir MD [address] [facility] [address] [place] [address] documented as of this encounter Visit Diagnoses Diagnosis Abdominal pain, right upper quadrant- Primary documented in this encounter Care Teams Technical Support Associate Relationship Specialty Start Date End Date Abrahan Mcgee MD [address] [place] [address] PCP - General Family Practice 04/03/24 documented as of this encounter
--- OUTSIDE RECORDS SUMMARY | 2024-07-03 13:00 | XMS_ITS | Encounter Summary ---
Author Organization [facility] Address [address] [facility] [place] [address] Care Team Providers Care County Ordinary Name Role Phone Abrahan Mcgee MD Primary Care Provider [phone] Encounter Details Date Type Department Care Team (Late st Contact Info) Description 08/13/2021 Lab Requisition [facility] Derm[facility] Lab [address] [place] [address] Jose G Llamas MD [address] [place] [address] Social History Tobacco Use Types Packs/Day Years Used Date Smoking Tobacco: Never Assessed Comments Unknown Sex and Gender Information Value Date Recorded Sex Assigned at Not on file Legal Sex Female 6:23 PM QUILL STRIPPER Gender Identity Not on file Sexual Orientation Not on file documented as of this encounter Plan of Treatment Not on file documented as of this encounter Procedures Procedure Name Priority Date/Time Associated Diagnosis Comments DERMATOPATHOLOGY Routine 08/12/2021 12:0 0 AM CDT documented in this encounter Results * DERMATOPATHOLOGY (08/12/2021 12:00 AM CDT) Case Report Dermatopathology Report Case: [id number] Authorizing Provider: Jose G Llamas MD Collected: 08/12/2021 12:00 AM Ordering Location: [facility]erm[facility] Received: 08/13/2021 10:45 AM Pathologist: [...] specimen consists of a shave biopsy measuring 3m3t2im. Jar 0. 10:59 AM CDT DERMATOPATHOLOGY LABORATORY [...] characteristic determined by the Dermatopathology Laboratory at [facility], directed by Dr. Troy Mckeon. These tests need not be, and therefore are not, approved by the [place] Food and Drug Administration. The tests are used for clinical purposes. Billing Codes Specimen Charges Stain Charges 86932 1 2 10:59 AM CDT DERMATOPATHOLOGY LABORATORY Embedded Images 10:59 AM CDT DERMATOPATHOLOGY LABORATORY Pathology/Cytolog y TISSUE SPECIMEN FROM SKIN / Unknown 08/12/2021 08/13/2021 10:45 AM CDT us Jose G Llamas MD LAB - PATHOLOGY/CYTOLOGY ORD ERABLES Final Result DERMATOPATHOLOGY LABORATORY [facility] - Department of Dermatology [address], [address] Floor [address] [phone] documented in this encounter Visit Diagnoses Not on filedocumented in this encounter Care Teams County Ordinary Relationship Specialty Start Date End Date Abrahan Mcgee MD [address] [place] [id number] PCP - General 07/23/09 documented as of this encounter
--- OUTSIDE RECORDS SUMMARY | 2024-07-03 13:00 | XMS_ITS | Encounter Summary ---
Author Organization [facility] Address [address] [place] [address] Care Team Providers Care Coordinator Of Rehabilitation Services Name Role Phone Abrahan Mcgee MD Primary Care Provider [phone] Encounter Details Date Type Department Care Team (Late st Contact Info) Description 03/22/2001 Outpatient Historical HIS [facility] Andre Ernst MD NO ADDRESS ON FILE Social History Tobacco Use Types Packs/Day Years Used Date Smoking Tobacco: Never Assessed Comments Unknown Sex and Gender Information Value Date Recorded Sex Assigned at Not on file Legal Sex Female 3:33 AM GAS COMBUSTION ENGINEER Gender Identity Not on file Sexual Orientation Not on file documented as of this encounter Plan of Treatment Upcoming Encounters Date Type Department Care Team (Late st Contact Info) Description 10/02/2024 11:45 AM CDT Office Visit [facility] Oncology and Hematology - [place] [address] [place] [address] [address] [place] [address] [place] [address] [place] [address] [address] [place] [address] documented as of this encounter Visit Diagnoses Not on filedocumented in this encounter Care Teams Coordinator Of Rehabilitation Services Relationship Specialty Start Date End Date Abrahan Mcgee MD [address] [place] [address] PCP - General Family Practice 04/03/24 documented as of this encounter
--- OUTSIDE RECORDS SUMMARY | 2024-07-03 13:00 | XMS_ITS | Encounter Summary ---
Author Organization [facility] Address [address] [facility] Attn: Epic Prelude ADT [place] [address] Care Team Providers Care Security Systems Technician Name Role Phone Abrahan Mcgee MD Primary Care Provider [phone] Encounter Details Date Type Department Care Team (Late st Contact Info) Description 07/31/1991 Outpatient Historical Andre Ernst MD NO ADDRESS ON FILE Social History Tobacco Use Types Packs/Day Years Used Date Smoking Tobacco: Never Assessed Comments Unknown Sex and Gender Information Value Date Recorded Sex Assigned at Not on file Legal Sex Female 3:33 AM METAL POURER Gender Identity Not on file Sexual Orientation Not on file documented as of this encounter Plan of Treatment Upcoming Encounters Date Type Department Care Team (Late st Contact Info) Description 10/02/2024 11:45 AM CDT Office Visit [facility] Oncology and Hematology - [place] [address] [place] [address] [address] [place] [address] Prince Mir MD [address] [place] [address] [address] [place] [address] documented as of this encounter Visit Diagnoses Not on filedocumented in this encounter Care Teams Security Systems Technician Relationship Specialty Start Date End Date Abrahan Mcgee MD [address] [place] [address] PCP - General Family Practice 04/03/24 documented as of this encounter
--- OUTSIDE RECORDS SUMMARY | 2024-07-03 13:00 | XMS_ITS | Encounter Summary ---
Author Organization [facility] [place] Address [address] [facility] Attn: Epic Prelude ADT [place] [address] Care Team Providers Care Grounds Supervisor Name Role Phone Abrahan Mcgee MD Primary Care Provider [phone] Encounter Details Date Type Department Care Team (Late st Contact Info) Description 09/11/1988 Outpatient Historical Andre Ernst MD NO ADDRESS ON FILE Social History Tobacco Use Types Packs/Day Years Used Date Smoking Tobacco: Never Assessed Comments Unknown Sex and Gender Information Value Date Recorded Sex Assigned at Not on file Legal Sex Female 3:33 AM INBOUND CALL CENTER REPRESENTATIVE Gender Identity Not on file Sexual Orientation Not on file documented as of this encounter Plan of Treatment Upcoming Encounters Date Type Department Care Team (Late st Contact Info) Description 10/02/2024 11:45 AM CDT Office Visit [facility] Oncology and Hematology - [place] [address] [place] [address] [address] [place] [address] Prince Mir MD [address] [place] [address] [address] [place] [address] documented as of this encounter Visit Diagnoses Not on filedocumented in this encounter Care Teams Grounds Supervisor Relationship Specialty Start Date End Date Abrahan Mcgee MD [address] [place] [address] PCP - General Family Practice 04/03/24 documented as of this encounter
--- OUTSIDE RECORDS SUMMARY | 2024-07-03 13:00 | XMS_ITS | Encounter Summary ---
Author Organization [facility] Address [address] [place] [address] Care Team Providers Care Architectural Draftsperson Name Role Phone Abrahan Mcgee MD Primary Care Provider [phone] Encounter Details Date Type Department Care Team (Late st Contact Info) Description 08/03/2001 Outpatient Historical HIS [facility] Berta Monae MD [address] [place] [address] Social History Tobacco Use Types Packs/Day Years Used Date Smoking Tobacco: Never Assessed Comments Unknown Sex and Gender Information Value Date Recorded Sex Assigned at Not on file Legal Sex Female 3:33 AM SUPERVISOR PAPER TESTING Gender Identity Not on file Sexual Orientation Not on file documented as of this encounter Plan of Treatment Upcoming Encounters Date Type Department Care Team (Late st Contact Info) Description 10/02/2024 11:45 AM CDT Office Visit [facility] Oncology and Hematology - [place] [address] [place] [address] [address] [place] [address] Prince Mir MD [address] [facility] [address] [place] [address] documented as of this encounter Visit Diagnoses Not on filedocumented in this encounter Care Teams Architectural Draftsperson Relationship Specialty Start Date End Date Abrahan Mcgee MD [address] [place] [address] PCP - General Family Practice 04/03/24 documented as of this encounter
--- OUTSIDE RECORDS SUMMARY | 2024-07-03 13:00 | XMS_ITS | Encounter Summary ---
Author Organization [facility] Address [address] [place] [address] Care Team Providers Care Group Teacher Name Role Phone Abrahan Mcgee MD Primary Care Provider [phone] Encounter Details Date Type Department Care Team (Latest Contact Info) Description 11/19/2003 Outpatient Historical HIS [facility] Andre Vidal MD NO ADDRESS ON FILE HYPOPOTASSEMIA (Primary Dx) Social History Tobacco Use Types Packs/Day Years Used Date Smoking Tobacco: Never Assessed Comments Unknown Sex and Gender Information Value Date Recorded Sex Assigned at Not on file Legal Sex Female 3:33 AM OPERATOR CATALYST CONCENTRATION Gender Identity Not on file Sexual Orientation Not on file documented as of this encounter Plan of Treatment Upcoming Encounters Date Type Department Care Team (Late st Contact Info) Description 10/02/2024 11:45 AM CDT Office Visit [facility] Oncology and Hematology - [place] [address] [place] [address] [address] [place] [address] [place] [address] [place] [address] [address] [place] [address] documented as of this encounter Visit Diagnoses Diagnosis Hypopotassemia- Primary documented in this encounter Care Teams Group Teacher Relationship Specialty Start Date End Date Abrahan Mcgee MD [address] [place] [address] PCP - General Family Practice 04/03/24 documented as of this encounter
--- OUTSIDE RECORDS SUMMARY | 2024-07-03 13:00 | XMS_ITS | Encounter Summary ---
Author Organization [facility] Address [address] [place] [address] Care Team Providers Care Checkroom Attendant Name Role Phone Abrahan Mcgee MD Primary Care Provider [phone] Encounter Details Date Type Department Care Team (Late st Contact Info) Description 03/29/2002 Outpatient Historical HIS MRI DEPT Andre Ernst MD NO ADDRESS ON FILE HEADACHE (Primary Dx) Social History Tobacco Use Types Packs/Day Years Used Date Smoking Tobacco: Never Assessed Comments Unknown Sex and Gender Information Value Date Recorded Sex Assigned at Not on file Legal Sex Female 3:33 AM NON DESTRUCTIVE TESTING INSPECTOR Gender Identity Not on file Sexual Orientation Not on file documented as of this encounter Plan of Treatment Upcoming Encounters Date Type Department Care Team (Late st Contact Info) Description 10/02/2024 11:45 AM CDT Office Visit [facility] Oncology and Hematology - [place] [address] [place] [address] [address] [place] [address] [place] [address] [place] [address] [address] [place] [address] documented as of this encounter Visit Diagnoses Diagnosis Headache(784.0)- Primary Headache documented in this encounter Care Teams Checkroom Attendant Relationship Specialty Start Date End Date Abrahan Mcgee MD [address] [place] [address] PCP - General Family Practice 04/03/24 documented as of this encounter
--- OUTSIDE RECORDS SUMMARY | 2024-07-03 13:00 | XMS_ITS | Encounter Summary ---
Author Organization [facility] Address [address] [place] [address] Care Team Providers Care Senior Commissary Agent Name Role Phone Abrahan Mcgee MD Primary Care Provider [phone] Encounter Details Date Type Department Care Team (Latest Contact Info) Description 10/29/2000 Outpatient Historical HIS [facility] Ernst, Andre Guardado MD NO ADDRESS ON FILE Backache, unspecified (Primary Dx) Social History Tobacco Use Types Packs/Day Years Used Date Smoking Tobacco: Never Assessed Comments Unknown Sex and Gender Information Value Date Recorded Sex Assigned at Not on file Legal Sex Female 3:33 AM CREDIT UNION TELLER Gender Identity Not on file Sexual Orientation Not on file documented as of this encounter Plan of Treatment Upcoming Encounters Date Type Department Care Team (Late st Contact Info) Description 10/02/2024 11:45 AM CDT Office Visit [facility] Oncology and Hematology - [place] [address] [place] [address] [address] [place] [address] [place] [address] [place] [address] [address] [place] [address] documented as of this encounter Visit Diagnoses Diagnosis Backache, unspecified- Primary documented in this encounter Care Teams Senior Commissary Agent Relationship Specialty Start Date End Date Abrahan Mcgee MD [address] [place] [address] PCP - General Family Practice 04/03/24 documented as of this encounter
--- OUTSIDE RECORDS SUMMARY | 2024-07-03 13:00 | XMS_ITS | Encounter Summary ---
Author Organization [facility] Address [address] [place] [address] Care Team Providers Care Librarian Helper Name Role Phone Abrahan Mcgee MD Primary Care Provider [phone] Encounter Details Date Type Department Care Team (Latest Contact Info) Description 03/06/2004 Outpatient Historical HIS [facility] Andre Vidal MD NO ADDRESS ON FILE HYPOPOTASSEMIA (Primary Dx) Social History Tobacco Use Types Packs/Day Years Used Date Smoking Tobacco: Never Assessed Comments Unknown Sex and Gender Information Value Date Recorded Sex Assigned at Not on file Legal Sex Female 3:33 AM TAPE COATER Gender Identity Not on file Sexual Orientation Not on file documented as of this encounter Plan of Treatment Upcoming Encounters Date Type Department Care Team (Late st Contact Info) Description 10/02/2024 11:45 AM CDT Office Visit [facility] Oncology and Hematology - [place] [address] [facility] [address] [place] [address] Prince Mir MD [address] [facility] [address] [place] [address] documented as of this encounter Procedures Procedure Name Priority Date/Time Associated Diagnosis Comments COMPREHENSIVE METABOLIC PANEL Routine 03/06/2004 11:12 AM TAPE COATER documented in this encounter Results * (ABNORMAL) COMPREHENSIVE METABOLIC PANEL (03/06/2004 11:12 AM TAPE COATER) GLUCOSE 95 65 - 109 mg/dL INTERFACE [...] by 2nd methodology. 03/06/2004 11:1 2 AM TAPE COATER us Andre Ernst MD CHEMISTRY ORDERABLES Final Res ult INTERFACE SYSTEM Refer to clinic/hospital department documented in this encounter Visit Diagnoses Diagnosis Hypopotassemia- Primary documented in this encounter Care Teams Librarian Helper Relationship Specialty Start Date End Date Abrahan Mcgee MD [address] [place] [address] PCP - General Family Practice 04/03/24 documented as of this encounter
--- OUTSIDE RECORDS SUMMARY | 2024-07-03 13:00 | XMS_ITS | Encounter Summary ---
Author Organization [facility] Address [address] [place] [address] Care Team Providers Care Automotive Machinist Name Role Phone Abrahan Mcgee MD Primary Care Provider [phone] Encounter Details Date Type Department Care Team (Latest Contact Info) Description 03/22/2001 Outpatient Historical HIS [facility] Andre Vidal MD NO ADDRESS ON FILE BENIGN HYPERTENSION (Primary Dx) Social History Tobacco Use Types Packs/Day Years Used Date Smoking Tobacco: Never Assessed Comments Unknown Sex and Gender Information Value Date Recorded Sex Assigned at Not on file Legal Sex Female 3:33 AM MEDICAL INSURANCE CLAIMS PROCESSOR Gender Identity Not on file Sexual Orientation Not on file documented as of this encounter Plan of Treatment Upcoming Encounters Date Type Department Care Team (Late st Contact Info) Description 10/02/2024 11:45 AM CDT Office Visit [facility] Oncology and Hematology - [place] [address] [place] [address] [address] [place] [address] [place] [address] [place] [address] [address] [place] [address] documented as of this encounter Visit Diagnoses Diagnosis Essential hypertension, benign- Primary documented in this encounter Care Teams Automotive Machinist Relationship Specialty Start Date End Date Abrahan Mcgee MD [address] [place] [address] PCP - General Family Practice 04/03/24 documented as of this encounter
--- OUTSIDE RECORDS SUMMARY | 2024-07-03 13:00 | XMS_ITS | Encounter Summary ---
Author Organization [facility] Address [address] [place] [address] Care Team Providers Care Central Processing Technician Name Role Phone Abrahan Mcgee MD Primary Care Provider [phone] Encounter Details Date Type Department Care Team (Late st Contact Info) Description 11/19/2003 Outpatient Historical HIS [facility] Andre Ernst MD NO ADDRESS ON FILE Social History Tobacco Use Types Packs/Day Years Used Date Smoking Tobacco: Never Assessed Comments Unknown Sex and Gender Information Value Date Recorded Sex Assigned at Not on file Legal Sex Female 3:33 AM HEAD PIECE ASSEMBLER Gender Identity Not on file Sexual Orientation Not on file documented as of this encounter Plan of Treatment Upcoming Encounters Date Type Department Care Team (Late st Contact Info) Description 10/02/2024 11:45 AM CDT Office Visit [facility] Oncology and Hematology - [place] [address] [place] [address] [address] [place] [address] [place] [address] [place] [address] [address] [place] [address] documented as of this encounter Visit Diagnoses Not on filedocumented in this encounter Care Teams Central Processing Technician Relationship Specialty Start Date End Date Abrahan Mcgee MD [address] [place] [address] PCP - General Family Practice 04/03/24 documented as of this encounter
--- OUTSIDE RECORDS SUMMARY | 2024-07-03 13:00 | XMS_ITS | Encounter Summary ---
Author Organization [facility] Address [address] [place] [address] Care Team Providers Care Damper Worker Name Role Phone Abrahan Mcgee MD Primary Care Provider [phone] Encounter Details Date Type Department Care Team (Late st Contact Info) Description 02/24/2002 Outpatient Historical HIS [facility] Andre Ernst MD NO ADDRESS ON FILE Social History Tobacco Use Types Packs/Day Years Used Date Smoking Tobacco: Never Assessed Comments Unknown Sex and Gender Information Value Date Recorded Sex Assigned at Not on file Legal Sex Female 3:33 AM LENS GRINDER ROUGH Gender Identity Not on file Sexual Orientation Not on file documented as of this encounter Plan of Treatment Upcoming Encounters Date Type Department Care Team (Late st Contact Info) Description 10/02/2024 11:45 AM CDT Office Visit [facility] Oncology and Hematology - [place] [address] [place] [address] [address] [place] [address] [place] [address] [place] [address] [address] [place] [address] documented as of this encounter Visit Diagnoses Not on filedocumented in this encounter Care Teams Damper Worker Relationship Specialty Start Date End Date Abrahan Mcgee MD [address] [place] [address] PCP - General Family Practice 04/03/24 documented as of this encounter
--- OUTSIDE RECORDS SUMMARY | 2024-07-03 13:00 | XMS_ITS | Encounter Summary ---
Author Organization [facility] Address [address] [place] [address] Care Team Providers Care Home Health Provider Name Role Phone Abrahan Mcgee MD Primary Care Provider [phone] Encounter Details Date Type Department Care Team (Latest Contact Info) Description 03/16/2002 Outpatient Historical HIS [facility] Andre Vidal MD NO ADDRESS ON FILE BENIGN HYPERTENSION (Primary Dx) Social History Tobacco Use Types Packs/Day Years Used Date Smoking Tobacco: Never Assessed Comments Unknown Sex and Gender Information Value Date Recorded Sex Assigned at Not on file Legal Sex Female 3:33 AM VARNISHER Gender Identity Not on file Sexual Orientation Not on file documented as of this encounter Plan of Treatment Upcoming Encounters Date Type Department Care Team (Late st Contact Info) Description 10/02/2024 11:45 AM CDT Office Visit [facility] Oncology and Hematology - [place] [address] [place] [address] [address] [place] [address] [place] [address] [place] [address] [address] [place] [address] documented as of this encounter Visit Diagnoses Diagnosis Essential hypertension, benign- Primary documented in this encounter Care Teams Home Health Provider Relationship Specialty Start Date End Date Abrahan Mcgee MD [address] [place] [address] PCP - General Family Practice 04/03/24 documented as of this encounter
--- OUTSIDE RECORDS SUMMARY | 2024-07-03 13:00 | XMS_ITS | Encounter Summary ---
Author Organization [facility] Address [address] [facility] Attn: Epic Prelude ADT FRIDA SPARROW [address] Care Team Providers Care Drum Carrier Name Role Phone Abrahan Mcgee MD Primary Care Provider [phone] Encounter Details Date Type Department Care Team (Late st Contact Info) Description 05/10/1990 Outpatient Historical Andre Ernst MD NO ADDRESS ON FILE Social History Tobacco Use Types Packs/Day Years Used Date Smoking Tobacco: Never Assessed Comments Unknown Sex and Gender Information Value Date Recorded Sex Assigned at Not on file Legal Sex Female 3:33 AM MANAGEMENT CONSULTANT Gender Identity Not on file Sexual Orientation Not on file documented as of this encounter Plan of Treatment Upcoming Encounters Date Type Department Care Team (Late st Contact Info) Description 10/02/2024 11:45 AM CDT Office Visit [facility] Oncology and Hematology - [place] [address] [place] [address] [address] [place] [address] Prince Mir MD [address] [place] [address] [address] [place] [address] documented as of this encounter Visit Diagnoses Not on filedocumented in this encounter Care Teams Drum Carrier Relationship Specialty Start Date End Date Abrahan Mcgee MD [address] [place] [address] PCP - General Family Practice 04/03/24 documented as of this encounter
--- OUTSIDE RECORDS SUMMARY | 2024-07-03 13:00 | XMS_ITS | Encounter Summary ---
Author Organization [facility] Address [address] [place] [address] Care Team Providers Care Traffic Coordinator Name Role Phone Abrahan Mcgee MD Primary Care Provider [phone] Encounter Details Date Type Department Care Team (Late st Contact Info) Description 11/27/2002 Outpatient Historical HIS [facility] Berta Monae MD [address] [place] [id number] Social History Tobacco Use Types Packs/Day Years Used Date Smoking Tobacco: Never Assessed Comments Unknown Sex and Gender Information Value Date Recorded Sex Assigned at Not on file Legal Sex Female 3:33 AM NUMERICAL CONTROL DRILL PRESS OPERATOR Gender Identity Not on file Sexual Orientation Not on file documented as of this encounter Plan of Treatment Upcoming Encounters Date Type Department Care Team (Late st Contact Info) Description 10/02/2024 11:45 AM CDT Office Visit [facility] Oncology and Hematology - [place] [address] [place] [address] [address] [place] [address] Prince Mir MD [address] [facility] [address] [place] [address] documented as of this encounter Visit Diagnoses Not on filedocumented in this encounter Care Teams Traffic Coordinator Relationship Specialty Start Date End Date Abrahan Mcgee MD [address] [place] [address] PCP - General Family Practice 04/03/24 documented as of this encounter
--- OUTSIDE RECORDS SUMMARY | 2024-07-03 13:00 | XMS_ITS | Encounter Summary ---
Author Organization [facility] Address [address] [place] [address] Care Team Providers Care Custodian Manager Name Role Phone Abrahan Mcgee MD Primary Care Provider [phone] Encounter Details Date Type Department Care Team (Late st Contact Info) Description 11/04/2001 Outpatient Historical HIS [facility] Andre Ernst MD NO ADDRESS ON FILE Social History Tobacco Use Types Packs/Day Years Used Date Smoking Tobacco: Never Assessed Comments Unknown Sex and Gender Information Value Date Recorded Sex Assigned at Not on file Legal Sex Female 3:33 AM AIRLINE CUSTOMER SERVICE AGENT Gender Identity Not on file Sexual Orientation Not on file documented as of this encounter Plan of Treatment Upcoming Encounters Date Type Department Care Team (Late st Contact Info) Description 10/02/2024 11:45 AM CDT Office Visit [facility] Oncology and Hematology - [place] [address] [place] [address] [address] [place] [address] [place] [address] [place] [address] [address] [place] [address] documented as of this encounter Visit Diagnoses Not on filedocumented in this encounter Care Teams Custodian Manager Relationship Specialty Start Date End Date Abrahan Mcgee MD [address] [place] [address] PCP - General Family Practice 04/03/24 documented as of this encounter
--- OUTSIDE RECORDS SUMMARY | 2024-07-03 13:00 | XMS_ITS | Encounter Summary ---
Author Organization [facility] Address [address] [place] [address] Care Team Providers Care Resizer Operator Name Role Phone Abrahan Mcgee MD Primary Care Provider [phone] Encounter Details Date Type Department Care Team (Late st Contact Info) Description 08/15/2002 Outpatient Historical HIS [facility] Andre Ernst MD NO ADDRESS ON FILE Social History Tobacco Use Types Packs/Day Years Used Date Smoking Tobacco: Never Assessed Comments Unknown Sex and Gender Information Value Date Recorded Sex Assigned at Not on file Legal Sex Female 3:33 AM LIME PULLER Gender Identity Not on file Sexual Orientation Not on file documented as of this encounter Plan of Treatment Upcoming Encounters Date Type Department Care Team (Late st Contact Info) Description 10/02/2024 11:45 AM CDT Office Visit [facility] Oncology and Hematology - [place] [address] [place] [address] [address] [place] [address] [place] [address] [place] [address] [address] [place] [address] documented as of this encounter Visit Diagnoses Not on filedocumented in this encounter Care Teams Resizer Operator Relationship Specialty Start Date End Date Abrahan Mcgee MD [address] [place] [address] PCP - General Family Practice 04/03/24 documented as of this encounter
--- OUTSIDE RECORDS SUMMARY | 2024-07-03 13:00 | XMS_ITS ---
Author Organization [facility] Address [address] [place] [address] Care Team Providers Care Windows Vmware Engineer Name Role Phone Luigi Peng Primary Care Provider Dhara MURCIA NP, MICHAELLE Jenkins REASON FOR VISIT [facility] refill MEDICATIONS Medication SIG (Take, Route, Fr equency, Duration) Notes Start Date End Date Status [facility] [id number] UNIT TAKE 2 CAPSULES BY MOUTH WITH MEALS AND 1 CAPSULE WITH SNACKS DIRECTED for 360 Active Encounters Encounter Location Date Provider Diagnosis [facility] [address] [place] [address] 11/02/2023 MICHAELLE MURCIA PLAN OF TREATMENT Medication Medication Name Sig Start Date Stop Date Notes [facility] [id number] UNIT TAKE 2 CAPSULES BY MOUTH WITH MEALS AND 1 CAPSULE WITH SNACKS DIRECTED for 360 Progress Notes * Marshal SANDERSDOB: [birth year] (88 yo F)Acc No.[id number]:11/02/2023 Patient: Marshal SANDERS :1935 Age:88 Y Sex:Female Address:[address] [place], [address] * Refills Refill [facility] Capsule Delayed Release Particles, [id number] UNIT, 720 Capsule, TAKE 2 CAPSULES BY MOUTH WITH MEALS AND 1 CAPSULE WITH SNACKS DIRECTED, 360, Refills=2 * true * Date:
--- OUTSIDE RECORDS SUMMARY | 2024-07-03 13:00 | XMS_ITS | Encounter Summary ---
Author Organization [facility] Address [address] [facility] Attn: Epic Prelude ADT FRIDA SPARROW [address] Care Team Providers Care Ticket Broker Name Role Phone Abrahan Mcgee MD [...] on file Legal Sex Female 3:33 AM ECONOMIC DEVELOPMENT MANAGER Gender Identity Not on file Sexual Orientation Not on file documented as of this encounter Plan of Treatment Upcoming Encounters Date Type Department Care Team (Late st Contact Info) Description 10/02/2024 11:45 AM CDT Office Visit [facility] Oncology and Hematology - [place] [address] [place] [address] Dr [address] [place] [address] Prince Mir MD [address] [place] [address] [address] [place] [address] documented as of this encounter Visit Diagnoses Not on filedocumented in this encounter Care Teams Ticket Broker Relationship Specialty Start Date End Date Abrahan Mcgee MD [address] [place] [address] PCP - General Family Practice 04/03/24 documented as of this encounter
--- OUTSIDE RECORDS SUMMARY | 2024-07-03 13:00 | XMS_ITS | Encounter Summary ---
Author Organization [facility] Address [address] [place] [address] Care Team Providers Care Pets And Pet Supplies Salesperson Name Role Phone Abrahan Mcgee MD Primary Care Provider [phone] Encounter Details Date Type Department Care Team (Latest Contact Info) Description 07/06/2003 Outpatient Historical HIS [facility] Andre Vidal MD NO ADDRESS ON FILE BENIGN HYPERTENSION (Primary Dx) Social History Tobacco Use Types Packs/Day Years Used Date Smoking Tobacco: Never Assessed Comments Unknown Sex and Gender Information Value Date Recorded Sex Assigned at Not on file Legal Sex Female 3:33 AM MANAGER DISTRIBUTION CENTER Gender Identity Not on file Sexual Orientation Not on file documented as of this encounter Plan of Treatment Upcoming Encounters Date Type Department Care Team (Late st Contact Info) Description 10/02/2024 11:45 AM CDT Office Visit [facility] Oncology and Hematology - [place] [address] [place] [address] [address] [place] [address] [place] [address] [place] [address] [address] [place] [address] documented as of this encounter Visit Diagnoses Diagnosis Essential hypertension, benign- Primary documented in this encounter Care Teams Pets And Pet Supplies Salesperson Relationship Specialty Start Date End Date Abrahan Mcgee MD [address] [place] [address] PCP - General Family Practice 04/03/24 documented as of this encounter
--- OUTSIDE RECORDS SUMMARY | 2024-07-03 13:00 | XMS_ITS | Encounter Summary ---
Author Organization [facility] Address [address] [facility] Attn: Epic Prelude ADT FRIDA SPARROW [address] Care Team Providers Care Winchman/Crane Operator Name Role Phone Abrahan Mcgee MD [...] on file Legal Sex Female 3:33 AM JUDICIAL LAW CLERK Gender Identity Not on file Sexual Orientation Not on file documented as of this encounter Plan of Treatment Upcoming Encounters Date Type Department Care Team (Late st Contact Info) Description 10/02/2024 11:45 AM CDT Office Visit [facility] Oncology and Hematology - [place] [address] [place] [address] [address] [place] [address] Prince Mir MD [address] [place] [address] [address] [place] [address] documented as of this encounter Visit Diagnoses Not on filedocumented in this encounter Care Teams Winchman/Crane Operator Relationship Specialty Start Date End Date Abrahan Mcgee MD [address] [place] [address] PCP - General Family Practice 04/03/24 documented as of this encounter
--- OUTSIDE RECORDS SUMMARY | 2024-07-03 13:00 | XMS_ITS | Encounter Summary ---
Author Organization [facility] Address 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 REPAIRER Gender Identity Not on file Sexual Orientation Not on file documented as of this encounter Plan of Treatment Upcoming Encounters Date Type Department Care Team (Late st Contact Info) Description 10/02/2024 11:45 AM CDT Office Visit [facility] Oncology and Hematology - [place] [address] [place] [address] [address] [place] [address] [place] [address] [place] [address] [address] [place] [address] documented as of this encounter Visit Diagnoses Diagnosis 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 [address] PCP - General Family Practice 04/03/24 documented as of this encounter
--- OUTSIDE RECORDS SUMMARY | 2024-07-03 13:00 | XMS_ITS | Encounter Summary ---
Author Organization [facility] Address [address] [place] [address] Care Team Providers Care Geographic Information Systems Director Name Role Phone Abrahan Mcgee MD Primary Care Provider [phone] Encounter Details Date Type Department Care Team (Late st Contact Info) Description 10/29/2000 Outpatient Historical HIS [facility] Andre Ernst MD NO ADDRESS ON FILE Social History Tobacco Use Types Packs/Day Years Used Date Smoking Tobacco: Never Assessed Comments Unknown Sex and Gender Information Value Date Recorded Sex Assigned at Not on file Legal Sex Female 3:33 AM STRUCTURES MECHANIC Gender Identity Not on file Sexual Orientation Not on file documented as of this encounter Plan of Treatment Upcoming Encounters Date Type Department Care Team (Late st Contact Info) Description 10/02/2024 11:45 AM CDT Office Visit [facility] Oncology and Hematology - [place] [address] [place] [address] [address] [place] [address] [place] [address] [place] [address] [address] [place] [address] documented as of this encounter Visit Diagnoses Not on filedocumented in this encounter Care Teams Geographic Information Systems Director Relationship Specialty Start Date End Date Abrahan Mcgee MD [address] [place] [address] PCP - General Family Practice 04/03/24 documented as of this encounter
--- OUTSIDE RECORDS SUMMARY | 2024-07-03 13:01 | XMS_ITS | Encounter Summary ---
Author Organization [facility] Address [address] [place] [address] Care Team Providers Care Gate Services Supervisor Name Role Phone Abrahan Mcgee MD Primary Care Provider [phone] Encounter Details Date Type Department Care Team (Late st Contact Info) Description 07/27/2003 Outpatient Historical HIS [facility] Oscar Sneed MD NO ADDRESS ON FILE FEMALE GENITAL SYMPTOMS NOS (Primary Dx) Social History Tobacco Use Types Packs/Day Years Used Date Smoking Tobacco: Never Assessed Comments Unknown Sex and Gender Information Value Date Recorded Sex Assigned at Not on file Legal Sex Female 3:33 AM ADVERTISING ACCOUNT MANAGER Gender Identity Not on file Sexual Orientation Not on file documented as of this encounter Plan of Treatment Upcoming Encounters Date Type Department Care Team (Late st Contact Info) Description 10/02/2024 11:45 AM CDT Office Visit [facility] Oncology and Hematology - [place] [address] [place] [address] [address] [place] [address] Prince Mir MD [address] [place] [address] [address] [place] [address] documented as of this encounter Visit Diagnoses Diagnosis Unspecified symptom associated with female genital organs- Primary documented in this encounter Care Teams Gate Services Supervisor Relationship Specialty Start Date End Date Abrahan Mcgee MD [address] [place] [address] PCP - General Family Practice 04/03/24 documented as of this encounter
--- OUTSIDE RECORDS SUMMARY | 2024-07-03 13:01 | XMS_ITS | Encounter Summary ---
Author Organization [facility] Address [address] [place] [address] Care Team Providers Care Disability Specialist Name Role Phone Abrahan Mcgee MD Primary Care Provider [phone] Encounter Details Date Type Department Care Team (Late st Contact Info) Description 12/18/2004 Outpatient Historical HIS [facility] Andre Ernst MD NO ADDRESS ON FILE Social History Tobacco Use Types Packs/Day Years Used Date Smoking Tobacco: Never Assessed Comments Unknown Sex and Gender Information Value Date Recorded Sex Assigned at Not on file Legal Sex Female 3:33 AM BAND TUMBLER Gender Identity Not on file Sexual Orientation Not on file documented as of this encounter Plan of Treatment Upcoming Encounters Date Type Department Care Team (Late st Contact Info) Description 10/02/2024 11:45 AM CDT Office Visit [facility] Oncology and Hematology - [place] [address] [place] [address] Dr [address] [place] [address] [place] [address] [place] [address] [address] [place] [address] documented as of this encounter Visit Diagnoses Not on filedocumented in this encounter Care Teams Disability Specialist Relationship Specialty Start Date End Date Abrahan Mcgee MD [address] [place] [address] PCP - General Family Practice 04/03/24 documented as of this encounter
--- OUTSIDE RECORDS SUMMARY | 2024-07-03 13:01 | XMS_ITS | Encounter Summary ---
Author Organization [facility] Address [address] [place] [address] Care Team Providers Care Vamp Cut Out Worker Name Role Phone Abrahan Mcgee MD Primary Care Provider [phone] Encounter Details Date Type Department Care Team (Late st Contact Info) Description 12/05/2004 Outpatient Historical HIS [facility] DEPT Meryl Perry MD [address] [place] [address] [address] UTERINE LEIOMYOMA NOS (Primary Dx) Social History Tobacco Use Types Packs/Day Years Used Date Smoking Tobacco: Never Assessed Comments Unknown Sex and Gender Information Value Date Recorded Sex Assigned at Not on file Legal Sex Female 3:33 AM CONCRETE WORKER Gender Identity Not on file Sexual Orientation Not on file documented as of this encounter Plan of Treatment Upcoming Encounters Date Type Department Care Team (Late st Contact Info) Description 10/02/2024 11:45 AM CDT Office Visit [facility] Oncology and Hematology - [place] [address] [facility] [address] [place] [address] Prince Mir MD [address] [facility] [address] [place] [address] documented as of this encounter Visit Diagnoses Diagnosis Leiomyoma of uterus, unspecified- Primary documented in this encounter Care Teams Vamp Cut Out Worker Relationship Specialty Start Date End Date Abrahan Mcgee MD [address] [place] [address] PCP - General Family Practice 04/03/24 documented as of this encounter
--- OUTSIDE RECORDS SUMMARY | 2024-07-03 13:01 | XMS_ITS | Encounter Summary ---
Author Organization [facility] Address [address] [place] [address] Care Team Providers Care Director Of Product Development Name Role Phone Abrahan Mcgee MD Primary Care Provider [phone] Encounter Details Date Type Department Care Team (Late st Contact Info) Description 12/17/2004 Outpatient Historical HIS [facility] Meryl Perry MD [address] [place] [address] [address] BENIGN NEOPLASM LG BOWEL (Primary Dx) Social History Tobacco Use Types Packs/Day Years Used Date Smoking Tobacco: Never Assessed Comments Unknown Sex and Gender Information Value Date Recorded Sex Assigned at Not on file Legal Sex Female 3:33 AM DIRECTOR CLIENT SERVICES Gender Identity Not on file Sexual Orientation Not on file documented as of this encounter Plan of Treatment Upcoming Encounters Date Type Department Care Team (Late st Contact Info) Description 10/02/2024 11:45 AM CDT Office Visit [facility] Oncology and Hematology - [place] [address] [facility] [address] [place] [address] Prince Mir MD [address] [facility] [address] [place] [address] documented as of this encounter Visit Diagnoses Diagnosis Benign neoplasm of colon- Primary documented in this encounter Care Teams Director Of Product Development Relationship Specialty Start Date End Date Abrahan Mcgee MD [address] [place] [address] PCP - General Family Practice 04/03/24 documented as of this encounter
--- OUTSIDE RECORDS SUMMARY | 2024-07-03 13:01 | XMS_ITS | Encounter Summary ---
Author Organization [facility] Address [address] [place] [address] Care Team Providers Care Service Counselor Name Role Phone Abrahan Mcgee MD Primary Care Provider [phone] Encounter Details Date Type Department Care Team (Latest Contact Info) Description 11/24/2005 Outpatient Historical HIS [facility] Sneed, Oscar Medeiros MD NO ADDRESS ON FILE Other Screening Mammogram (Primary Dx) Social History Tobacco Use Types Packs/Day Years Used Date Smoking Tobacco: Never Assessed Comments Unknown Sex and Gender Information Value Date Recorded Sex Assigned at Not on file Legal Sex Female 3:33 AM COREMAKER MACHINE Gender Identity Not on file Sexual Orientation Not on file documented as of this encounter Plan of Treatment Upcoming Encounters Date Type Department Care Team (Late st Contact Info) Description 10/02/2024 11:45 AM CDT Office Visit [facility] Oncology and Hematology - [place] [address] [place] [address] [address] [place] [address] [place] [address] [place] [address] [address] [place] [address] documented as of this encounter Visit Diagnoses Diagnosis Other screening mammogram- Primary documented in this encounter Care Teams Service Counselor Relationship Specialty Start Date End Date Abrahan Mcgee MD [address] [place] [address] PCP - General Family Practice 04/03/24 documented as of this encounter
--- OUTSIDE RECORDS SUMMARY | 2024-07-03 13:01 | XMS_ITS | Encounter Summary ---
Author Organization [facility] Address [address] [place] [address] Care Team Providers Care Small Business Representative Name Role Phone Abrahan Mcgee MD Primary Care Provider [phone] Encounter Details Date Type Department Care Team (Latest Contact Info) Description 06/11/2005 Outpatient Historical HIS [facility] Andre Vidal MD NO ADDRESS ON FILE Headache (Primary Dx) Social History Tobacco Use Types Packs/Day Years Used Date Smoking Tobacco: Never Assessed Comments Unknown Sex and Gender Information Value Date Recorded Sex Assigned at Not on file Legal Sex Female 3:33 AM PHYSICAL THERAPY AIDE Gender Identity Not on file Sexual Orientation Not on file documented as of this encounter Plan of Treatment Upcoming Encounters Date Type Department Care Team (Late st Contact Info) Description 10/02/2024 11:45 AM CDT Office Visit [facility] Oncology and Hematology - [place] [address] [facility] [address] [place] [address] Prince Mir MD [address] [facility] [address] [place] [address] documented as of this encounter [...] sult Performing Organization Address [facility] de Phone Number INTERFACE SYSTEM Refer to clinic/hospital department * (ABNORMAL) CBC WITH DIFFERENTIAL (06/11/2005 11:29 AM CDT) Pathologist [facility] [place] WBC 8.1 4.0 - 9.8 K/uL INTERFACE [...] ORDERABLES Final Re sult Performing Organization Address City/[facility] Co de Phone Number INTERFACE SYSTEM [...] Headache documented in this encounter Care Teams Small Business Representative Relationship Specialty Start Date End Date Abrahan Mcgee MD [address] [place] [address] PCP - General Family Practice 04/03/24 documented as of this encounter
--- OUTSIDE RECORDS SUMMARY | 2024-07-03 13:01 | XMS_ITS | Encounter Summary ---
Author Organization [facility] Address [address] [place] [address] Care Team Providers Care Aircraft Cylinder Mechanic Name Role Phone Abrahan Mcgee MD Primary Care Provider [phone] Encounter Details Date Type Department Care Team (Late st Contact Info) Description 07/23/2003 Outpatient Historical HIS [facility] DEPT Meryl Perry MD [address] [place] [address] [address] UTERINE LEIOMYOMA NOS (Primary Dx) Social History Tobacco Use Types Packs/Day Years Used Date Smoking Tobacco: Never Assessed Comments Unknown Sex and Gender Information Value Date Recorded Sex Assigned at Not on file Legal Sex Female 3:33 AM MINI LAB OPERATOR Gender Identity Not on file Sexual Orientation Not on file documented as of this encounter Plan of Treatment Upcoming Encounters Date Type Department Care Team (Late st Contact Info) Description 10/02/2024 11:45 AM CDT Office Visit [facility] Oncology and Hematology - [place] [address] [facility] [address] [place] [address] Prince Mir MD [address] [facility] [address] [place] [address] documented as of this encounter Visit Diagnoses Diagnosis Leiomyoma of uterus, unspecified- Primary documented in this encounter Care Teams Aircraft Cylinder Mechanic Relationship Specialty Start Date End Date Abrahan Mcgee MD [address] [place] [address] PCP - General Family Practice 04/03/24 documented as of this encounter
--- OUTSIDE RECORDS SUMMARY | 2024-07-03 13:01 | XMS_ITS | Encounter Summary ---
Author Organization [facility] Address [address] [place] [address] Care Team Providers Care Top Stitcher Name Role Phone Abrahan Mcgee MD Primary Care Provider [phone] Encounter Details Date Type Department Care Team (Late st Contact Info) Description 02/24/2005 Outpatient Historical [facility] Support [facility]. (Adt Cardiology-[facility]) [address] [place] [address] Carmine Morales MD NO ADDRESS ON FILE Social History Tobacco Use Types Packs/Day Years Used Date Smoking Tobacco: Never Assessed Comments Unknown Sex and Gender Information Value Date Recorded Sex Assigned at Not on file Legal Sex Female 3:33 AM COMPUTATIONAL GENETICIST Gender Identity Not on file Sexual Orientation Not on file documented as of this encounter Plan of Treatment Upcoming Encounters Date Type Department Care Team (Late st Contact Info) Description 10/02/2024 11:45 AM CDT Office Visit [facility] Oncology and Hematology - [place] [address] [facility] [address] [place] [address] Prince Mir MD [address] [facility] [address] [place] [address] documented as of this encounter Visit Diagnoses Not on filedocumented in this encounter Care Teams Top Stitcher Relationship Specialty Start Date End Date Abrahan Mcgee MD [address] [place] [address] PCP - General Family Practice 04/03/24 documented as of this encounter
--- OUTSIDE RECORDS SUMMARY | 2024-07-03 13:01 | XMS_ITS | Encounter Summary ---
Author Organization [facility] Address [address] [place] [address] Care Team Providers Care Process Controls Technician Name Role Phone Abrahan Mcgee MD Primary Care Provider [phone] Encounter Details Date Type Department Care Team (Late st Contact Info) Description 07/09/2005 Outpatient Historical HIS [facility] Andre Ernst MD NO ADDRESS ON FILE Social History Tobacco Use Types Packs/Day Years Used Date Smoking Tobacco: Never Assessed Comments Unknown Sex and Gender Information Value Date Recorded Sex Assigned at Not on file Legal Sex Female 3:33 AM INTERIOR DESIGN PROFESSOR Gender Identity Not on file Sexual Orientation Not on file documented as of this encounter Plan of Treatment Upcoming Encounters Date Type Department Care Team (Late st Contact Info) Description 10/02/2024 11:45 AM CDT Office Visit [facility] Oncology and Hematology - [place] [address] [place] [address] Dr [address] [place] [address] [place] [address] [place] [address] [address] [place] [address] documented as of this encounter Visit Diagnoses Not on filedocumented in this encounter Care Teams Process Controls Technician Relationship Specialty Start Date End Date Abrahan Mcgee MD [address] [place] [address] PCP - General Family Practice 04/03/24 documented as of this encounter
--- OUTSIDE RECORDS SUMMARY | 2024-07-03 13:01 | XMS_ITS | Encounter Summary ---
Author Organization [facility] Address [address] [place] [address] Care Team Providers Care Vehicle Technician Name Role Phone Abrahan Mcgee MD Primary Care Provider [phone] Encounter Details Date Type Department Care Team (Late st Contact Info) Description 07/13/2003 Outpatient Historical HIS [facility] Meryl Perry MD [address] [place] [address] [address] ABDOMINAL PAIN OTHER SPEC SITE (Primary Dx) Social History Tobacco Use Types Packs/Day Years Used Date Smoking Tobacco: Never Assessed Comments Unknown Sex and Gender Information Value Date Recorded Sex Assigned at Not on file Legal Sex Female 3:33 AM DESIGN LEAD Gender Identity Not on file Sexual Orientation Not on file documented as of this encounter Plan of Treatment Upcoming Encounters Date Type Department Care Team (Late st Contact Info) Description 10/02/2024 11:45 AM CDT Office Visit [facility] Oncology and Hematology - [place] [address] [facility] [place] [address] Prince Mir MD [address] [facility] [address] [place] [address] documented as of this encounter Visit Diagnoses Diagnosis Abdominal pain, other specified site- Primary documented in this encounter Care Teams Vehicle Technician Relationship Specialty Start Date End Date Abrahan Mcgee MD [address] [place] [address] PCP - General Family Practice 04/03/24 documented as of this encounter
--- OUTSIDE RECORDS SUMMARY | 2024-07-03 13:01 | XMS_ITS | Clinical Summary ---
Author Organization [facility] Care Team Providers Care Network Support Specialist Name Role Phone Unavailable Primary Care Provider [...]
--- OUTSIDE RECORDS SUMMARY | 2024-07-03 13:01 | XMS_ITS | Encounter Summary ---
Author Organization [facility] Address [address] [place] [address] Care Team Providers Care Manager Bakery Name Role Phone Abrahan Mcgee MD Primary Care Provider [phone] Encounter Details Date Type Department Care Team (Late st Contact Info) Description 09/16/2004 Outpatient Historical HIS [facility] Andre Ernst MD NO ADDRESS ON FILE Social History Tobacco Use Types Packs/Day Years Used Date Smoking Tobacco: Never Assessed Comments Unknown Sex and Gender Information Value Date Recorded Sex Assigned at Not on file Legal Sex Female 3:33 AM ROCKET MOTOR TESTER Gender Identity Not on file Sexual Orientation Not on file documented as of this encounter Plan of Treatment Upcoming Encounters Date Type Department Care Team (Late st Contact Info) Description 10/02/2024 11:45 AM CDT Office Visit [facility] Oncology and Hematology - [place] [address] [place] [address] [address] [place] [address] [place] [address] [place] [address] [address] [place] [address] documented as of this encounter Visit Diagnoses Not on filedocumented in this encounter Care Teams Manager Bakery Relationship Specialty Start Date End Date Abrahan Mcgee MD [address] [place] [address] PCP - General Family Practice 04/03/24 documented as of this encounter
--- OUTSIDE RECORDS SUMMARY | 2024-07-03 13:01 | XMS_ITS | Encounter Summary ---
Author Organization [facility] Address 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 Gender Identity Not on file Sexual Orientation Not on file documented as of this encounter Plan of Treatment Upcoming Encounters Date Type Department Care Team (Late st Contact Info) Description 10/02/2024 11:45 AM CDT Office Visit [facility] Oncology and Hematology - [place] [address] [facility] [address] [place] [address] Prince Mir MD [address] [facility] [address] [place] [address] documented as of this encounter [...] ORDERABLES Final Re sult Performing Organization Address City/[facility] Co de Phone Number INTERFACE SYSTEM Refer to clinic/hospital department * TSH (09/16/2004 11:48 AM CDT) TSH 1.55 0.27 - 4.20 uU/mL INTERFACE SYSTEM 09/16/2004 11:4 8 AM CDT Andre Ernst MD CHEMISTRY ORDERABLES Final Res ult Performing Organization Address City/[facility] Co de Phone Number INTERFACE SYSTEM [...] ORDERABLES Final Res ult Performing Organization Address City/[facility] Co de Phone Number INTERFACE SYSTEM Refer to clinic/hospital department documented in this encounter Visit Diagnoses Diagnosis Essential hypertension, benign- Primary documented in this encounter Care Teams Blacking Wheel Tender Relationship Specialty Start Date End Date Abrahan Mcgee MD [address] [place] [address] PCP - General Family Practice 04/03/24 documented as of this encounter
--- OUTSIDE RECORDS SUMMARY | 2024-07-03 13:01 | XMS_ITS | Encounter Summary ---
Author Organization [facility] Address 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 Gender Identity Not on file Sexual Orientation Not on file documented as of this encounter Plan of Treatment Upcoming Encounters Date Type Department Care Team (Late st Contact Info) Description 10/02/2024 11:45 AM CDT Office Visit [facility] Oncology and Hematology - [place] [address] [place] [address] [address] [place] [address] [place] [address] [place] [address] [address] [place] [address] documented as of this encounter Visit Diagnoses Not on filedocumented in this encounter Care Teams Paper Cone Machine Operator Relationship Specialty Start Date End Date Abrahan Mcgee MD [address] [place] [address] PCP - General Family Practice 04/03/24 documented as of this encounter
--- OUTSIDE RECORDS SUMMARY | 2024-07-03 13:01 | XMS_ITS | Encounter Summary ---
Author Organization [facility] Address 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 Gender Identity Not on file Sexual Orientation Not on file documented as of this encounter Plan of Treatment Upcoming Encounters Date Type Department Care Team (Late st Contact Info) Description 10/02/2024 11:45 AM CDT Office Visit [facility] Oncology and Hematology - [place] [address] [place] [address] [address] [place] [address] [place] [address] [place] [address] [address] [place] [address] documented as of this encounter Visit Diagnoses Not on filedocumented in this encounter Care Teams Inseam Trimming Machine Operator Relationship Specialty Start Date End Date Abrahan Mcgee MD [address] [place] [address] PCP - General Family Practice 04/03/24 documented as of this encounter
--- OUTSIDE RECORDS SUMMARY | 2024-07-03 13:01 | XMS_ITS | Encounter Summary ---
Author Organization [facility] Address [address] [place] [address] Care Team Providers Care Boat Joiner Name Role Phone Abrahan Mcgee MD Primary Care Provider [phone] Encounter Details Date Type Department Care Team (Late st Contact Info) Description 01/06/2006 Outpatient Historical HIS [facility] Andre Ernst MD NO ADDRESS ON FILE Social History Tobacco Use Types Packs/Day Years Used Date Smoking Tobacco: Never Assessed Comments Unknown Sex and Gender Information Value Date Recorded Sex Assigned at Not on file Legal Sex Female 3:33 AM PRN OCCUPATIONAL THERAPIST Gender Identity Not on file Sexual Orientation Not on file documented as of this encounter Plan of Treatment Upcoming Encounters Date Type Department Care Team (Late st Contact Info) Description 10/02/2024 11:45 AM CDT Office Visit [facility] Oncology and Hematology - [place] [address] [place] [address] [address] [place] [address] [place] [address] [place] [address] [address] [place] [address] documented as of this encounter Visit Diagnoses Not on filedocumented in this encounter Care Teams Boat Joiner Relationship Specialty Start Date End Date Abrahan Mcgee MD [address] [place] [address] PCP - General Family Practice 04/03/24 documented as of this encounter
--- OUTSIDE RECORDS SUMMARY | 2024-07-03 13:01 | XMS_ITS | Encounter Summary ---
Author Organization [facility] Address [address] [place] [address] Care Team Providers Care Solar Development Engineer Name Role Phone Abrahan Mcgee MD Primary Care Provider [phone] Encounter Details Date Type Department Care Team (Late st Contact Info) Description 02/23/2005 Outpatient Historical [facility] Adult Hospitalists [facility] [address] [place] [address] Deisy Garcia MD [address] [place] [address] Social History Tobacco Use Types Packs/Day Years Used Date Smoking Tobacco: Never Assessed Comments Unknown Sex and Gender Information Value Date Recorded Sex Assigned at Not on file Legal Sex Female 3:33 AM HAT BRIM CURLER Gender Identity Not on file Sexual Orientation Not on file documented as of this encounter Plan of Treatment Upcoming Encounters Date Type Department Care Team (Late st Contact Info) Description 10/02/2024 11:45 AM CDT Office Visit [facility] Oncology and Hematology - [place] [address] [place] [address] Prince Mir MD [address] [facility] [address] [place] [address] documented as of this encounter Visit Diagnoses Not on filedocumented in this encounter Care Teams Solar Development Engineer Relationship Specialty Start Date End Date Abrahan Mcgee MD [address] [place] [address] PCP - General Family Practice 04/03/24 documented as of this encounter
--- OUTSIDE RECORDS SUMMARY | 2024-07-03 13:01 | XMS_ITS | Encounter Summary ---
Author Organization [facility] Address [address] [place] [address] Care Team Providers Care Manager Army Name Role Phone Abrahan Mcgee MD Primary Care Provider [phone] Encounter Details Date Type Department Care Team (Late st Contact Info) Description 02/24/2005 Outpatient Historical [facility] Adult Hospitalists [facility] [address] [place] [address] Alcon Valadez MD [address] [place] [address] Social History Tobacco Use Types Packs/Day Years Used Date Smoking Tobacco: Never Assessed Comments Unknown Sex and Gender Information Value Date Recorded Sex Assigned at Not on file Legal Sex Female 3:33 AM DIRECTOR ASSET Gender Identity Not on file Sexual Orientation Not on file documented as of this encounter Plan of Treatment Upcoming Encounters Date Type Department Care Team (Late st Contact Info) Description 10/02/2024 11:45 AM CDT Office Visit [facility] Oncology and Hematology - [place] [address] [facility] [address] [place] [address] Prince Mir MD [address] [facility] [address] [place] [address] documented as of this encounter Visit Diagnoses Not on filedocumented in this encounter Care Teams Manager Army Relationship Specialty Start Date End Date Abrahan Mcgee MD [address] [place] [address] PCP - General Family Practice 04/03/24 documented as of this encounter
--- OUTSIDE RECORDS SUMMARY | 2024-07-03 13:01 | XMS_ITS | Encounter Summary ---
Author Organization [facility] Address [address] [place] [address] Care Team Providers Care Propagator Name Role Phone Abrahan Mcgee MD Primary Care Provider [phone] Encounter Details Date Type Department Care Team (Latest Contact Info) Description 12/04/2005 Outpatient Historical HIS [facility] Andre Vidal MD NO ADDRESS ON FILE Essential Hypertension, Benign (Primary Dx) Social History Tobacco Use Types Packs/Day Years Used Date Smoking Tobacco: Never Assessed Comments Unknown Sex and Gender Information Value Date Recorded Sex Assigned at Not on file Legal Sex Female 3:33 AM RECYCLABLE MATERIALS DISTRIBUTOR Gender Identity Not on file Sexual Orientation Not on file documented as of this encounter Plan of Treatment Upcoming Encounters Date Type Department Care Team (Late st Contact Info) Description 10/02/2024 11:45 AM CDT Office Visit [facility] Oncology and Hematology - [place] [address] [facility] [address] [place] [address] Prince Mir MD [address] [facility] [address] [place] [address] documented as of this encounter [...] ORDERABLES Final Res ult Performing Organization Address City/[facility] Co de Phone Number INTERFACE [...] ORDERABLES Final Res ult Performing Organization Address City/[facility]/ZIP Co de Phone Number INTERFACE SYSTEM Refer to clinic/hospital department documented in this encounter Visit Diagnoses Diagnosis Essential hypertension, benign- Primary documented in this encounter Care Teams Propagator Relationship Specialty Start Date End Date Abrahan Mcgee MD [address] [place] [address] PCP - General Family Practice 04/03/24 documented as of this encounter
--- OUTSIDE RECORDS SUMMARY | 2024-07-03 13:01 | XMS_ITS | Encounter Summary ---
Author Organization [facility] Address [address] [place] [address] Care Team Providers Care Trolley Operator Name Role Phone Abrahan Mcgee MD Primary Care Provider [phone] Encounter Details Date Type Department Care Team (Late st Contact Info) Description 07/27/2003 Outpatient Historical HIS [facility] Perry, Meryl Pereira MD [address] [place] [address] [address] ABNORMAL FINDINGS-GI TRACT (Primary Dx) Social History Tobacco Use Types Packs/Day Years Used Date Smoking Tobacco: Never Assessed Comments Unknown Sex and Gender Information Value Date Recorded Sex Assigned at Not on file Legal Sex Female 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 Gender Identity Not on file Sexual Orientation Not on file documented as of this encounter Plan of Treatment Upcoming Encounters Date Type Department Care Team (Late st Contact Info) Description 10/02/2024 11:45 AM CDT Office Visit [facility] Oncology and Hematology - [place] [address] [facility] [address] [place] [address] Prince Mir MD [address] [facility] [address] [place] [address] documented as of this encounter Visit Diagnoses Diagnosis Nonspecific (abnormal) findings on radiological and other examination of gastrointestinal tract- Primary documented in this encounter Care Teams Trolley Operator Relationship Specialty Start Date End Date Abrahan Mcgee MD [address] [place] [address] PCP - General Family Practice 04/03/24 documented as of this encounter
--- OUTSIDE RECORDS SUMMARY | 2024-07-03 13:01 | XMS_ITS | Encounter Summary ---
Author Organization [facility] Address [address] [place] [address] Care Team Providers Care Milieu Manager Name Role Phone Abrahan Mcgee MD Primary Care Provider [phone] Encounter Details Date Type Department Care Team (Late st Contact Info) Description 07/06/2003 Outpatient Historical HIS [facility] INTERNISTS Andre Ernst MD NO ADDRESS ON FILE Social History Tobacco Use Types Packs/Day Years Used Date Smoking Tobacco: Never Assessed Comments Unknown Sex and Gender Information Value Date Recorded Sex Assigned at Not on file Legal Sex Female 3:33 AM GENERAL PRODUCTION MANAGER Gender Identity Not on file Sexual Orientation Not on file documented as of this encounter Plan of Treatment Upcoming Encounters Date Type Department Care Team (Late st Contact Info) Description 10/02/2024 11:45 AM CDT Office Visit [facility] Oncology and Hematology - [place] [address] [place] [address] [address] [place] [address] [place] [address] [place] [address] [address] [place] [address] documented as of this encounter Visit Diagnoses Not on filedocumented in this encounter Care Teams Milieu Manager Relationship Specialty Start Date End Date Abrahan Mcgee MD [address] [place] [address] PCP - General Family Practice 04/03/24 documented as of this encounter
--- OUTSIDE RECORDS SUMMARY | 2024-07-03 13:01 | XMS_ITS | Encounter Summary ---
Author Organization [facility] Address [address] [place] [address] Care Team Providers Care Lawyer Name Role Phone Abrahan Mcgee MD Primary Care Provider [phone] Encounter Details Date Type Department Care Team (Latest Contact Info) Description 10/17/2002 Outpatient Historical HIS [facility] Andre Vidal MD NO ADDRESS ON FILE SOLITARY CYST OF BREAST (Primary Dx) Social History Tobacco Use Types Packs/Day Years Used Date Smoking Tobacco: Never Assessed Comments Unknown Sex and Gender Information Value Date Recorded Sex Assigned at Not on file Legal Sex Female 3:33 AM CHRISTIAN SCIENCE PRACTITIONER Gender Identity Not on file Sexual Orientation Not on file documented as of this encounter Plan of Treatment Upcoming Encounters Date Type Department Care Team (Late st Contact Info) Description 10/02/2024 11:45 AM CDT Office Visit [facility] Oncology and Hematology - [place] [address] [place] [address] [address] [place] [address] [place] [address] [place] [address] [address] [place] [address] documented as of this encounter Visit Diagnoses Diagnosis Solitary cyst of breast- Primary documented in this encounter Care Teams Lawyer Relationship Specialty Start Date End Date Abrahan Mcgee MD [address] [place] [address] PCP - General Family Practice 04/03/24 documented as of this encounter
--- OUTSIDE RECORDS SUMMARY | 2024-07-03 13:01 | XMS_ITS | Encounter Summary ---
Author Organization [facility] Address [address] [place] [address] Care Team Providers Care Finance Lead Name Role Phone Abrahan Mcgee MD Primary Care Provider [phone] Encounter Details Date Type Department Care Team (Latest Contact Info) Description 01/06/2006 Outpatient Historical HIS [facility] Andre Vidal MD NO ADDRESS ON FILE Cervicalgia (Primary Dx) Social History Tobacco Use Types Packs/Day Years Used Date Smoking Tobacco: Never Assessed Comments Unknown Sex and Gender Information Value Date Recorded Sex Assigned at Not on file Legal Sex Female 3:33 AM PMP PROJECT MANAGER Gender Identity Not on file Sexual Orientation Not on file documented as of this encounter Plan of Treatment Upcoming Encounters Date Type Department Care Team (Late st Contact Info) Description 10/02/2024 11:45 AM CDT Office Visit [facility] Oncology and Hematology - [place] [address] [place] [address] [address] [place] [address] [place] [address] [place] [address] [address] [place] [address] documented as of this encounter Visit Diagnoses Diagnosis Cervicalgia- Primary documented in this encounter Care Teams Finance Lead Relationship Specialty Start Date End Date Abrahan Mcgee MD [address] [place] [address] PCP - General Family Practice 04/03/24 documented as of this encounter
--- OUTSIDE RECORDS SUMMARY | 2024-07-03 13:01 | XMS_ITS | Encounter Summary ---
Author Organization [facility] Address [address] [place] [address] Care Team Providers Care Nurse Consultant Name Role Phone Abrahan Mcgee MD Primary Care Provider [phone] Encounter Details Date Type Department Care Team (Latest Contact Info) Description 02/23/2005 Inpatient Historical [facility] Alcon Valadez MD [address] [address] Deisy Garcia MD [address] [address] CHEST PAIN NOS (Primary Dx) Social History Tobacco Use Types Packs/Day Years Used Date Smoking Tobacco: Never Assessed Comments Unknown Sex and Gender Information Value Date Recorded Sex Assigned at Not on file Legal Sex Female 3:33 AM NEEDLE BAR MOLDER Gender Identity Not on file Sexual Orientation Not on file documented as of this encounter Plan of Treatment Upcoming Encounters Date Type Department Care Team (Late st Contact Info) Description 10/02/2024 11:45 AM CDT [facility] Oncology [facility] Hematology - [place] [address] [facility] [address] [place] [address] Prince Mir MD [address] [facility] [address] [place] [address] documented as of this encounter Procedures Procedure Name Priority Date/Time Associated Diagnosis Comments CBC WITH DIFFERENTIAL Routine 02/25/2005 4:30 AM NEEDLE BAR MOLDER CBC WITH DIFFERENTIAL Routine 02/25/2005 4:30 AM NEEDLE BAR MOLDER C-REACTIVE PROTEIN Routine 02/25/2005 4: 30 AM NEEDLE BAR MOLDER T3 FREE Routine 02/25/2005 4:30 AM NEEDLE BAR MOLDER T4 FREE Routine 02/25/2005 4:30 AM NEEDLE BAR MOLDER BASIC METABOLIC PANEL Routine 02/25/2005 4:30 AM NEEDLE BAR MOLDER TSH Routine 02/24/2005 4:35 AM NEEDLE BAR MOLDER LIPASE Routine 02/24/2005 4:35 AM NEEDLE BAR MOLDER AMYLASE Routine 02/24/2005 4:35 AM NEEDLE BAR MOLDER LIPID PANEL Routine 02/24/2005 4:35 AM NEEDLE BAR MOLDER BASIC METABOLIC PANEL Routine 02/24/2005 4:35 AM NEEDLE BAR MOLDER TROPONIN (W/REFLEX CKMB/CK) Routine 02/24/2005 4:15 AM NEEDLE BAR MOLDER TROPONIN (W/REFLEX CKMB/CK) Routine 02/23/2005 10:15 PM NEEDLE BAR MOLDER URINALYSIS W/REFLEX MICROSCOPIC Routine 02/23/2005 8:31 PM NEEDLE BAR MOLDER TROPONIN (W/REFLEX CKMB/CK) Routine 02/23/2005 1:28 PM NEEDLE BAR MOLDER CBC WITH DIFFERENTIAL Routine 02/23/2005 12:46 PM NEEDLE BAR MOLDER CBC WITH DIFFERENTIAL Routine 02/23/2005 12:46 PM NEEDLE BAR MOLDER LIPASE Routine 02/23/2005 12:46 PM NEEDLE BAR MOLDER AMYLASE Routine 02/23/2005 12:46 PM NEEDLE BAR MOLDER COMPREHENSIVE METABOLIC PANEL Routine 02/23/2005 12:46 PM NEEDLE BAR MOLDER documented in this encounter Results * CBC WITH DIFFERENTIAL (02/25/2005 4:30 AM NEEDLE BAR MOLDER) NEUTROPHILS 52 45 - 70 % INTERFAC [...] 0.20 K/uL INTERFACE SYSTEM 02/25/2005 4:30 AM NEEDLE BAR MOLDER Alcon Valadez MD HEMATOLOGY ORDERABLES Final Re sult Performing Organization Address [facility] de Phone Number INTERFACE SYSTEM Refer to clinic/hospital department * (ABNORMAL) CBC WITH DIFFERENTIAL (02/25/2005 4:30 AM NEEDLE BAR MOLDER) WBC 7.4 4.0 - 9.8 K/uL INTERFACE [...] 12.4 fL INTERFACE SYSTEM 02/25/2005 4:30 AM NEEDLE BAR MOLDER Alcon Valadez MD HEMATOLOGY ORDERABLES Final Re sult Performing Organization Address [facility]/ZIP Co de Phone Number INTERFACE SYSTEM Refer to clinic/hospital department * T3 FREE (02/25/2005 4:30 AM NEEDLE BAR MOLDER) T3 FREE 2.9 2.5 - 4.4 pg/mL INTERFACE SYSTEM 02/25/2005 4:30 AM NEEDLE BAR MOLDER us Alcon Valadez MD CHEMISTRY ORDERABLES Final Res ult Performing Organization Address [facility] Phone Number INTERFACE SYSTEM Refer to clinic/hospital department * T4 FREE (02/25/2005 4:30 AM NEEDLE BAR MOLDER) T4 FREE 1.3 0.9 - 1.7 ng/dL INTERFACE SYSTEM 02/25/2005 4:3 0 AM NEEDLE BAR MOLDER us Alcon Valadez MD CHEMISTRY ORDERABLES Final Res ult Performing Organization Address [facility] Phone Number INTERFACE SYSTEM Refer to clinic/hospital department * C-REACTIVE PROTEIN (02/25/2005 4:30 AM NEEDLE BAR MOLDER) CRP 0.6 0.0 - 0.8 mg/dL INTERFACE SYSTEM 02/25/2005 4:30 AM NEEDLE BAR MOLDER us Alcon Valadez MD CHEMISTRY ORDERABLES Final Res ult Performing Organization Address [facility] Phone Number INTERFACE SYSTEM Refer to clinic/hospital department * BASIC METABOLIC PANEL (02/25/2005 4:30 AM NEEDLE BAR MOLDER) GLUCOSE 89 65 - 109 mg/dL INTERFACE [...] 30 mmol/L INTERFACE SYSTEM 02/25/2005 4:30 AM NEEDLE BAR MOLDER Alcon Valadez MD CHEMISTRY ORDERABLES Final Res ult Performing Organization Address [facility] Phone Number INTERFACE SYSTEM Refer to clinic/hospital department * (ABNORMAL) LIPASE (02/24/2005 4:35 AM NEEDLE BAR MOLDER) LIPASE 90(H) 13 - 60 U/L INTERFAC E SYSTEM 02/24/2005 4:35 AM NEEDLE BAR MOLDER us Nora Sivaprasad CHEMISTRY ORDERABLES Final Resu lt Performing Organization Address [facility] Phone Number INTERFACE SYSTEM Refer to clinic/hospital department * (ABNORMAL) AMYLASE (02/24/2005 4:35 AM NEEDLE BAR MOLDER) AMYLASE 118(H) 28 - 100 U/L INTERFACE SYSTEM 02/24/2005 4:35 AM NEEDLE BAR MOLDER us Nora Sivaprasad CHEMISTRY ORDERABLES Final Resu lt Performing Organization Address [facility] Phone Number INTERFACE SYSTEM Refer to clinic/hospital department * (ABNORMAL) TSH (02/24/2005 4:35 AM NEEDLE BAR MOLDER) TSH 4.33(H) 0.27 - 4.20 uU/mL INTERFACE SYSTEM 02/24/2005 4:35 AM NEEDLE BAR MOLDER us Nora Sivaprasad CHEMISTRY ORDERABLES Final Resu lt Performing Organization Address [facility] Phone Number INTERFACE SYSTEM Refer to clinic/hospital department * LIPID PANEL (02/24/2005 4:35 AM NEEDLE BAR MOLDER) LIPID PANEL COMMENT See below INTERFACE SYSTEM [...] section for risk classifications. 02/24/2005 4:35 AM NEEDLE BAR MOLDER [employer] CHEMISTRY ORDERABLES Final Resu lt Performing Organization Address City/[facility]/ZIP Co de Phone Number INTERFACE SYSTEM Refer to clinic/hospital department * BASIC METABOLIC PANEL (02/24/2005 4:35 AM NEEDLE BAR MOLDER) GLUCOSE 100 65 - 109 mg/dL INTERFACE [...] 30 mmol/L INTERFACE SYSTEM 02/24/2005 4:35 AM NEEDLE BAR MOLDER Nora [employer] CHEMISTRY ORDERABLES Final Resu lt Performing Organization Address City/[facility]/ZIP Co de Phone Number INTERFACE SYSTEM Refer to clinic/hospital department * TROPONIN (W/REFLEX CKMB/CK) (02/24/2005 4:15 AM NEEDLE BAR MOLDER) TROPONIN T <0.01 <=0.03 ng/mL INTERFACE SYSTEM TROPONIN T INTERP Negative INTERFACE SYSTEM 02/24/2005 4:15 AM NEEDLE BAR MOLDER [facility] Sivaprasad CHEMISTRY ORDERABLES Final Resu lt Performing Organization Address [facility] Phone Number INTERFACE SYSTEM Refer to clinic/hospital department * TROPONIN (W/REFLEX CKMB/CK) (02/23/2005 10:15 PM NEEDLE BAR MOLDER) TROPONIN T <0.01 <=0.03 ng/mL INTERFACE SYSTEM TROPONIN T INTERP Negative INTERFACE SYSTEM 02/23/2005 10:1 5 PM NEEDLE BAR MOLDER [facility] Sensus Experienceaprasad CHEMISTRY ORDERABLES Final Resu lt Performing Organization Address [facility] Phone Number INTERFACE SYSTEM Refer to clinic/hospital department * (ABNORMAL) URINALYSIS (02/23/2005 8:31 PM NEEDLE BAR MOLDER) COLOR UA Yellow INTERFACE SYSTEM CLARITY UA [...] 2-5 /HPF INTERFACE SYSTEM 02/23/2005 8:31 PM NEEDLE BAR MOLDER [facility] Sivaprasad URINE ORDERABLES Final Result Performing Organization Address [facility] Phone Number INTERFACE SYSTEM Refer to clinic/hospital department * TROPONIN (W/REFLEX CKMB/CK) (02/23/2005 1:28 PM NEEDLE BAR MOLDER) TROPONIN T <0.01 <=0.03 ng/mL INTERFACE SYSTEM TROPONIN T INTERP Negative INTERFACE SYSTEM 02/23/2005 1:28 PM NEEDLE BAR MOLDER us Erika P Er CHEMISTRY ORDERABLES Final Resul t Performing Organization Address [facility] de Phone Number INTERFACE SYSTEM Refer to clinic/hospital department * CBC WITH DIFFERENTIAL (02/23/2005 12:46 PM NEEDLE BAR MOLDER) NEUTROPHILS 70 45 - 70 % INTERFAC [...] K/uL INTERFACE SYSTEM 02/23/2005 12:4 6 PM NEEDLE BAR MOLDER Jasbir Sol MD HEMATOLOGY ORDERABLES Final Re sult Performing Organization Address [facility] Phone Number INTERFACE SYSTEM Refer to clinic/hospital department * (ABNORMAL) CBC WITH DIFFERENTIAL (02/23/2005 12:46 PM NEEDLE BAR MOLDER) WBC 9.3 4.0 - 9.8 K/uL INTERFACE [...] fL INTERFACE SYSTEM 02/23/2005 12:4 6 PM NEEDLE BAR MOLDER Jasbir Sol MD HEMATOLOGY ORDERABLES Final Re sult Performing Organization Address [facility] de Phone Number INTERFACE SYSTEM Refer to clinic/hospital department * (ABNORMAL) LIPASE (02/23/2005 12:46 PM NEEDLE BAR MOLDER) LIPASE 91(H) 13 - 60 U/L INTERFAC E SYSTEM 02/23/2005 12:4 6 PM NEEDLE BAR MOLDER Jasbir Sol MD CHEMISTRY ORDERABLES Final Res ult Performing Organization Address [facility] Phone Number INTERFACE SYSTEM Refer to clinic/hospital department * (ABNORMAL) AMYLASE (02/23/2005 12:46 PM NEEDLE BAR MOLDER) AMYLASE 134(H) 28 - 100 U/L INTERFACE SYSTEM 02/23/2005 12:4 6 PM NEEDLE BAR MOLDER Jasbir Sol MD CHEMISTRY ORDERABLES Final Res ult Performing Organization Address [facility] Phone Number INTERFACE SYSTEM Refer to clinic/hospital department * (ABNORMAL) COMPREHENSIVE METABOLIC PANEL (02/23/2005 12:46 PM NEEDLE BAR MOLDER) GLUCOSE 115(H) 65 - 109 mg/dL INTERFACE [...] mmol/L INTERFACE SYSTEM 02/23/2005 12:4 6 PM NEEDLE BAR MOLDER us Jasbir Sol MD CHEMISTRY ORDERABLES Final Res ult INTERFACE SYSTEM Refer to clinic/hospital department documented in this encounter Visit Diagnoses Diagnosis Chest pain, unspecified- Primary documented in this encounter Care Teams Nurse Consultant Relationship Specialty Start Date End Date Abrahan Mcgee MD [address] [place] [address] PCP - General Family Practice 04/03/24 documented as of this encounter
--- OUTSIDE RECORDS SUMMARY | 2024-07-03 13:01 | XMS_ITS | Encounter Summary ---
Author Organization [facility] Address [address] [place] [address] Care Team Providers Care Crimp Setter Name Role Phone Abrahan Mcgee MD Primary Care Provider [phone] Encounter Details Date Type Department Care Team (Late st Contact Info) Description 11/27/2004 Outpatient Historical HIS [facility] ЕКАТЕРИНА Perry, Meryl Pereira MD [address] [address] [place] [address] ABDOMINAL PAIN RLQ (Primary Dx) Social History Tobacco Use Types Packs/Day Years Used Date Smoking Tobacco: Never Assessed Comments Unknown Sex and Gender Information Value Date Recorded Sex Assigned at Not on file Legal Sex Female 3:33 AM REHABILITATOR Gender Identity Not on file Sexual Orientation Not on file documented as of this encounter Plan of Treatment Upcoming Encounters Date Type Department Care Team (Late st Contact Info) Description 10/02/2024 11:45 AM CDT Office Visit [facility] Oncology and Hematology - [place] [address] [facility] [address] [place] [address] Prince Mir MD [address] [facility] [address] [place] [address] documented as of this encounter [...] FETOPROTEIN TUMOR MARKER (11/27/2004 11:54 AM CDT) [facility] ALPHA FETOPROTEIN TUMOR MARKER 2.2 ng/mL INTERFACE SYSTEM Comment: This test was performed using the [employer] Immulite 2000 Assay. REFERENCE RANGE: <6.1 THE USE OF AFP A TUMOR MARKER IN FEMALES IS NOT RECOMMENDED. Lab test performed by: [facility] [address] [place] [address] EVELINA AMOS MD 11/27/2004 11:5 4 AM CDT Meryl Perry MD CHEMISTRY ORDERABLES Fin al Result INTERFACE SYSTEM Refer to clinic/hospital department * CBC WITH DIFFERENTIAL (11/27/2004 11:54 AM CDT) [facility] NEUTROPHILS 67 45 - 70 % INTERFAC [...] ORDERABLES Fi nal Result Performing Organization Address [facility] de Phone Number INTERFACE SYSTEM [...] ORDERABLES Fi nal Result Performing Organization Address [facility] Phone Number INTERFACE SYSTEM Refer to clinic/hospital department * (ABNORMAL) AMYLASE (11/27/2004 11:54 AM CDT) AMYLASE 141(H) 28 - 100 U/L INTERFACE SYSTEM 11/27/2004 11:5 4 AM CDT Meryl Perry MD CHEMISTRY ORDERABLES Fin al Result Performing Organization Address City/[facility] Co de Phone Number INTERFACE SYSTEM Refer to clinic/hospital department * (ABNORMAL) LIPASE (11/27/2004 11:54 AM CDT) LIPASE 97(H) 13 - 60 U/L INTERFAC E SYSTEM 11/27/2004 11:5 4 AM CDT Meryl Perry MD CHEMISTRY ORDERABLES Fin alana Result Performing Organization Address [facility] Phone Number INTERFACE SYSTEM Refer to clinic/hospital department * C-REACTIVE PROTEIN (11/27/2004 11:54 AM CDT) CRP 0.5 0.0 - 0.8 mg/dL INTERFACE SYSTEM 11/27/2004 11:5 4 AM CDT Meryl Perry MD CHEMISTRY ORDERABLES Fin alana Result Performing Organization Address [facility] Number INTERFACE SYSTEM Refer to clinic/hospital department [...] ORDERABLES Amarjit warner Result Performing Organization Address [facility] Phone Number INTERFACE SYSTEM Refer to clinic/hospital [...] Primary documented in this encounter Care Teams Crimp Setter Relationship Specialty Start Date End Date Abrahan Mcgee MD [address] [place] [address] PCP - General Family Practice 04/03/24 documented as of this encounter
--- OUTSIDE RECORDS SUMMARY | 2024-07-03 13:01 | XMS_ITS | Encounter Summary ---
Author Organization [facility] Address [address] [place] [address] Care Team Providers Care State Auditor Name Role Phone Abrahan Mcgee MD Primary Care Provider [phone] Encounter Details Date Type Department Care Team (Late st Contact Info) Description 07/30/2005 Outpatient Historical HIS [facility] INTERNISTS Andre Ernst MD NO ADDRESS ON FILE Social History Tobacco Use Types Packs/Day Years Used Date Smoking Tobacco: Never Assessed Comments Unknown Sex and Gender Information Value Date Recorded Sex Assigned at Not on file Legal Sex Female 3:33 AM SENIOR CREDIT ANALYST Gender Identity Not on file Sexual Orientation Not on file documented as of this encounter Plan of Treatment Upcoming Encounters Date Type Department Care Team (Late st Contact Info) Description 10/02/2024 11:45 AM CDT Office Visit [facility] Oncology and Hematology - [place] [address] [place] [address] [address] [place] [address] [place] [address] [place] [address] [address] [place] [address] documented as of this encounter Visit Diagnoses Not on filedocumented in this encounter Care Teams State Auditor Relationship Specialty Start Date End Date Abrahan Mcgee MD [address] [place] [address] PCP - General Family Practice 04/03/24 documented as of this encounter
--- OUTSIDE RECORDS SUMMARY | 2024-07-03 13:01 | XMS_ITS | Encounter Summary ---
Author Organization [facility] Address [address] [place] [address] Care Team Providers Care Mulcher Operator Name Role Phone Abrahan Mcgee MD Primary Care Provider [phone] Encounter Details Date Type Department Care Team (Late st Contact Info) Description 02/23/2005 Outpatient Historical [facility] ([facility]) [address] [place] [address] Guero Malhotra MD NO ADDRESS ON FILE Social History Tobacco Use Types Packs/Day Years Used Date Smoking Tobacco: Never Assessed Comments Unknown Sex and Gender Information Value Date Recorded Sex Assigned at Not on file Legal Sex Female 3:33 AM LEAN LEADER Gender Identity Not on file Sexual Orientation Not on file documented as of this encounter Plan of Treatment Upcoming Encounters Date Type Department Care Team (Late st Contact Info) Description 10/02/2024 11:45 AM CDT Office Visit [facility] Oncology and Hematology - [place] [address] [facility] [address] [place] [address] Prince Mir MD [address] [facility] [address] [place] [address] documented as of this encounter Visit Diagnoses Not on filedocumented in this encounter Care Teams Mulcher Operator Relationship Specialty Start Date End Date Abrahan Mcgee MD [address] [place] [address] PCP - General Family Practice 04/03/24 documented as of this encounter
--- OUTSIDE RECORDS SUMMARY | 2024-07-03 13:01 | XMS_ITS | Encounter Summary ---
Author Organization [facility] Address [address] [place] [address] Care Team Providers Care Farm Owner Operator Name Role Phone Abrahan Mcgee MD Primary Care Provider [phone] Encounter Details Date Type Department Care Team (Latest Contact Info) Description 11/27/2004 Outpatient Historical HIS [facility] ЕКАТЕРИНА Sneed, Oscar Medeiros MD NO ADDRESS ON FILE SCREENING MAMM-MAILG NEOPL NEC (Primary Dx) Social History Tobacco Use Types Packs/Day Years Used Date Smoking Tobacco: Never Assessed Comments Unknown Sex and Gender Information Value Date Recorded Sex Assigned at Not on file Legal Sex Female 3:33 AM SUPERVISOR PAINTING Gender Identity Not on file Sexual Orientation Not on file documented as of this encounter Plan of Treatment Upcoming Encounters Date Type Department Care Team (Late st Contact Info) Description 10/02/2024 11:45 AM CDT Office Visit [facility] Oncology and Hematology - [place] [address] [place] [address] [address] [place] [address] [place] [address] [place] [address] [address] [place] [address] documented as of this encounter Visit Diagnoses Diagnosis Other screening mammogram- Primary documented in this encounter Care Teams Farm Owner Operator Relationship Specialty Start Date End Date Abrahan Mcgee MD [address] [place] [address] PCP - General Family Practice 04/03/24 documented as of this encounter
--- OUTSIDE RECORDS SUMMARY | 2024-07-03 13:01 | XMS_ITS | Encounter Summary ---
Author Organization [facility] Address [address] [place] [address] Care Team Providers Care Paper Twister Name Role Phone Abrahan Mcgee MD Primary Care Provider [phone] Encounter Details Date Type Department Care Team [...] on file Legal Sex Female 3:33 AM INSTALLER APPRENTICE Gender Identity Not on file Sexual Orientation Not on file documented as of this encounter Plan of Treatment Upcoming Encounters Date Type Department Care Team (Late st Contact Info) Description 10/02/2024 11:45 AM CDT Office Visit [facility] Oncology and Hematology - [place] [address] [place] [address] Dr Perkins [address] [place] [address] Prince Mir MD [address] [place] [address] [address] [place] [address] documented as of this encounter Visit Diagnoses Diagnosis Allergic rhinitis due to pollen- Primary documented in this encounter Care Teams Paper Twister Relationship Specialty Start Date End Date Abrahan Mcgee MD [address] [place] [address] PCP - General Family Practice 04/03/24 documented as of this encounter
[2024-07-03 13:18] LABS: Add Urine Microscopic? YES; Appearance Urine Clear (Clear); Bacteria Urine None Seen /hpf; Bilirubin Urine Negative (Negative); Blood Urine Negative (Negative); Color Urine Yellow (Yellow); Glucose Urine UA Negative (Negative); Ketones Urine Negative (Negative); Leukocyte Esterase Ur Negative LEU/UL (Negative); Nitrate Urine Negative (Negative); Non Pathogenic Casts 0-2; Protein Urine Trace mg/dL (Negative); RBC Urine 0-2 /hpf (0-2); Specific Grav Ur 1.009 (1.001-1.035); Squamous Epithelial Cell Urine None Seen /hpf (Few); Urobilinogen Urine 0.2 mg/dL (<2.0); WBC Urine 0-5 /hpf (0-3)
== END 2024-07-03 12:39 | disposition home or self-care (01) ==
PROVIDERS: PCP Family Medicine; Visit Provider Family Medicine
DX: N30.90 Cystitis, unspecified without hematuria (principal)
CPT/HCPCS: 81001; 87086

== ENCOUNTER 2024-08-08 10:11 | Outpatient (CLI) | payer MEDICARE, SELFPAY ==
--- NOTE | ~2024-08-08 | MM_ITS ---
EXAMINATION: MM screening deangelo BI w josephine HISTORY: Screening TECHNIQUE: Craniocaudal and mediolateral oblique 3-D tomosynthesis images were obtained and synthetic 2-D images were generated. CAD analysis was submitted and interpreted. COMPARISON: Comparison to multiple prior studies sequentially, with oldest reviewed study dated 12/31. BREAST PARENCHYMAL COMPOSITION: Not dense: There are scattered areas of fibroglandular density. FINDINGS: There is no evidence of suspicious mass, calcification, or architectural distortion to sugg est malignancy in either breast. There has been no suspicious interval change. IMPRESSION: 1. No mammographic evidence of malignancy. 2. Recommend routine screening mammography in one year. BI-RADS Category 1: Negative Reviewed, dictated and finalized at location B.
--- OUTSIDE RECORDS SUMMARY | 2024-08-08 11:04 | XMS_ITS | Encounter Summary ---
Author Organization [facility] Address [address] [place] [address] Phone Care Team Providers Care Moss Gatherer Name Role Phone Krishna Medina MD Unavailable [phone] Luigi Nicole Primary Care Provider Lina Yates NP Unavailable [phone] Yogesh Corbett DO Primary Care Provider [phone] Abrahan Mcgee MD Primary Care Provider [phone] Encounter Details Date Type Department Care Team (Late st Contact Info) Description 02/05/2022 Telephone [facility] Surgery [facility] Advanced [facility] 5th [place] [address] Akila Toussaint Social History Tobacco [...] on file Legal 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:42 PM HIGH SCHOOL 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 COUNSELOR Gender Identity Not on file Sexual Orientation Not on file documented as of this encounter Plan of Treatment Not on file documented as of this encounter Visit Diagnoses Not on filedocumented in this encounter Care Teams Moss Gatherer Relationship Specialty Start Date End Date Luigi Nicole PA [address] [place] [address] [address] [place] [address] PCP - General Physician Child Psychologist 04/09/21 12/01/23 Yogesh Corbett DO [address] [place] [address] PCP - General Internal Medicine 12/02/23 06/05/24 Abrahan Mcgee MD [address] [place] [address] PCP - General Family Medicine 06/06/24 Krishna Medina MD [address] [address] 03/17/19 Lina Yates NP [address] [place] [address] [address] [place] [address] Nurse Practitioner 11/12/22 documented as of this encounter
--- OUTSIDE RECORDS SUMMARY | 2024-08-08 11:04 | XMS_ITS | Patient Health Record ---
Author Organization [facility] Address [address] [employer] [address] [place] [address] Care Team Providers Care Economics Instructor Name Role Phone Luigi Peng Primary Care Provider Dhara MURCIA MANAGER COMPETITIVE INTELLIGENCE, MICHAELLE Unavailable Allergies Allergen (clinical drug ingredient) Drug/Non Drug Allergy [...] azithromycin Azithromycin Unknown Drug Allergy A ctive Reason For Referral No Information Medications Medication SIG (Take, Route, Frequency, Duration) Notes [...] tablet Orally Twice a day Unknown Zenpep [id number] UNIT TAKE 2 CAPSULES BY MOUTH WITH MEALS AND 1 CAPSULE WITH SNACKS DIRECTED for 360 Active Flonase Active Systane 0.4-0.3 % as directed Ophthalmic Active Vitamin D Active Metamucil 48.57 % as directed Orally Active Claritin 10 MG 1 tablet Orally Once a day Active Social History Tobacco Use: Social History Observation Description Date Details (start date - stop date) Former Smoker NA - NA Tobacco Use/Smoking Question Answer Notes Are you a former smoker How long has it been since y ou last smoked? > 10 years Additional Findings: Tobacco Non-User Ex -moderate cigarette smoker (10-19/day) Problems Problem Type SNOMED Code ICD Code Onset Dates Problem Status W/U Status Risk Notes Problem Gastro-esophagea l reflux disease without esophagitis (519881448) Gastro-esophage al reflux disease without esophagitis (K21.9) Active confirmed Problem Constipation, unspecified (K59.00) Active confirmed Problem Spasm of sphincter of Oddi (41749464) Spasm of sphincter of Oddi (K83.4) Active confirmed Problem Cyst of pancreas (32979107) Cyst of pancreas (K86.2) Active confirmed Encounters Encounter Location Date Provider Diagnosis [facility] [address] [address] [place] [address] 11/02/2023 MICHAELLE MURCIA Plan Of Treatment Pending Test Test Name Order Date Esophagogastroduodenoscopy (EGD) 020 Esophagogastroduodenoscopy (EGD) 020 Insurance Providers Payer Name Payer Address Payer Phone Subscriber Number Group Number Insured Name Patient Relationship to Insured Coverage Start Date Coverage End Date [employer] Medicare Advantage PPO [address] [address] [place], [place] [id number] [phone] [id number] Marshal Sanders Self - patient is the insured Medical (General) History Medical History History ICD Code Arthritis GERD [...] mm. 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
--- OUTSIDE RECORDS SUMMARY | 2024-08-08 11:05 | XMS_ITS | Encounter Summary ---
Author Organization [facility] Address [address] [facility] Attn: Epic Prelude ADT [place] SPARROW [address] Care Team Providers Care Web Merchandiser Name Role Phone Abrahan Mcgee MD Primary [...] on file Legal Sex Female 3:33 AM KENO ATTENDANT Gender Identity Not on file Sexual Orientation Not on file documented as of this encounter Plan of Treatment Upcoming Encounters Date Type Department Care Team (Late st Contact Info) Description 10/02/2024 11:45 AM CDT Office Visit [facility] Oncology and Hematology - [place] [address] [place] [address] Dr [address] [place] [address] Prince Mir MD [address] [place] [address] [address] [place] [address] documented as of this encounter Visit Diagnoses Not on filedocumented in this encounter Care Teams Web Merchandiser Relationship Specialty Start Date End Date Abrahan Mcgee MD [address] [place] [address] PCP - General Family Practice 04/03/24 documented as of this encounter
--- OUTSIDE RECORDS SUMMARY | 2024-08-08 11:05 | XMS_ITS | Encounter Summary ---
Author Organization [facility] Address [address] [facility] [place] [address] Care Team Providers Care Elevator Constructor Supervisor Name Role Phone Abrahan Mcgee MD Primary Care Provider [phone] Encounter Details Date Type Department Care Team (Late st Contact Info) Description 08/13/2021 Lab Requisition [facility] DermPath Lab [address] [place] [address] Jose G Llamas MD [address] [place] [address] Social History Tobacco Use Types Packs/Day Years Used Date Smoking Tobacco: Never Assessed Comments Unknown Sex and Gender Information Value Date Recorded Sex Assigned at Not on file Legal Sex Female 6:23 PM PROGRAM ENGINEER Gender Identity Not on file Sexual Orientation Not on file documented as of this encounter Plan of Treatment Not on file documented as of this encounter Procedures Procedure Name Priority Date/Time Associated Diagnosis Comments DERMATOPATHOLOGY Routine 08/12/2021 12:0 0 AM CDT documented in this encounter Results * DERMATOPATHOLOGY (08/12/2021 12:00 AM CDT) Case Report Dermatopathology Report Case: [id number] Authorizing Provider: Jose G Llamas MD Collected: 08/12/2021 12:00 AM Ordering Location: [facility] DermPath Lab Received: 08/13/2021 10:45 AM Pathologist: Jessica Peacock MD Specimen: Skin, right vertex 10:59 AM CDT DERMATOPATHOLOGY LABORATORY Final Diagnosis Specimen A. SKIN, right vertex: SEBORRHEIC KERATOSIS, IRRITATED AND INFLAMED (L82.0) 2 10:59 AM CDT DERMATOPATHOLOGY LABORATORY at 1059 CDT Clinical History R/O SK, Dysplastic Nevus 2 10:59 AM CDT DERMATOPATHOLOGY LABORATORY Gross Description Specimen A: Received is one formalin filled container labeled with the patient's name and designated right vertex. The specimen consists of a shave biopsy measuring [id number]. Jar 0. 2 10:59 AM CDT DERMATOPATHOLOGY LABORATORY Microscopic Description [...] by the Dermatopathology Laboratory at [facility], directed by Dr. Troy Mckeon. These tests need not be, and therefore are not, approved by the [place] Food and Drug Administration. The tests are used for clinical purposes. Billing Codes Specimen Charges Stain Charges 66282 1 2 10:59 AM CDT DERMATOPATHOLOGY LABORATORY Embedded Images 2 10:59 AM CDT DERMATOPATHOLOGY LABORATORY Pathology/Cytolog y TISSUE SPECIMEN FROM SKIN / Unknown 08/12/2021 08/13/2021 10:45 AM CDT us Jose G Llamas MD LAB - PATHOLOGY/CYTOLOGY ORD ERABLES Final Result DERMATOPATHOLOGY LABORATORY [facility] - Department of Dermatology [address], [address] [phone] documented in this encounter Visit Diagnoses Not on filedocumented in this encounter Care Teams Elevator Constructor Supervisor Relationship Specialty Start Date End Date Abrahan Mcgee MD [address] [place] [address] PCP - General 07/23/09 documented as of this encounter
--- OUTSIDE RECORDS SUMMARY | 2024-08-08 11:05 | XMS_ITS | Encounter Summary ---
Author Organization [facility] Address [address] [place] [address] Care Team Providers Care Real Estate Sales Manager Name Role Phone Abrahan Mcgee MD Primary Care Provider [phone] Encounter Details Date Type Department Care Team (Late st Contact Info) Description 02/24/2002 Outpatient Historical [facility] Andre Ernst MD NO ADDRESS ON FILE Social History Tobacco Use Types Packs/Day Years Used Date Smoking Tobacco: Never Assessed Comments Unknown Sex and Gender Information Value Date Recorded Sex Assigned at Not on file Legal Sex Female 3:33 AM INCIDENT RESPONSE ENGINEER Gender Identity Not on file Sexual Orientation Not on file documented as of this encounter Plan of Treatment Upcoming Encounters Date Type Department Care Team (Late st Contact Info) Description 10/02/2024 11:45 AM CDT Office Visit [facility] Oncology and Hematology - [place] [address] [place] [address] Dr [address] [place] [address] [place] [address] [place] [address] [address] [place] [address] documented as of this encounter Visit Diagnoses Not on filedocumented in this encounter Care Teams Real Estate Sales Manager Relationship Specialty Start Date End Date Abrahan Mcgee MD [address] [place] [address] PCP - General Family Practice 04/03/24 documented as of this encounter
--- OUTSIDE RECORDS SUMMARY | 2024-08-08 11:05 | XMS_ITS | Encounter Summary ---
Author Organization [facility] Address [address] [place] [address] Care Team Providers Care Field Organizer Name Role Phone Abrahan Mcgee MD Primary Care Provider [phone] Encounter Details Date Type Department Care Team (Late st Contact Info) Description 07/30/2005 Outpatient Historical HIS [facility] Andre Ernst MD NO ADDRESS ON FILE Social History Tobacco Use Types Packs/Day Years Used Date Smoking Tobacco: Never Assessed Comments Unknown Sex and Gender Information Value Date Recorded Sex Assigned at Not on file Legal Sex Female 3:33 AM APPLICATION SUPPORT ENGINEER Gender Identity Not on file Sexual Orientation Not on file documented as of this encounter Plan of Treatment Upcoming Encounters Date Type Department Care Team (Late st Contact Info) Description 10/02/2024 11:45 AM CDT Office Visit [facility] Oncology and Hematology - [place] [address] [place] [address] Dr [address] [place] [address] [place] [address] [place] [address] [address] [place] [address] documented as of this encounter Visit Diagnoses Not on filedocumented in this encounter Care Teams Field Organizer Relationship Specialty Start Date End Date Abrahan Mcgee MD [address] [place] [address] PCP - General Family Practice 04/03/24 documented as of this encounter
--- OUTSIDE RECORDS SUMMARY | 2024-08-08 11:05 | XMS_ITS | Encounter Summary ---
Author Organization [facility] Address [address] [place] [address] Care Team Providers Care Gem Cutter Name Role Phone Abrahan Mcgee MD Primary Care Provider [phone] Encounter Details Date Type Department Care Team (Late st Contact Info) Description 11/04/2001 Outpatient Historical [facility] Andre Ernst MD NO ADDRESS ON FILE Social History Tobacco Use Types Packs/Day Years Used Date Smoking Tobacco: Never Assessed Comments Unknown Sex and Gender Information Value Date Recorded Sex Assigned at Not on file Legal Sex Female 3:33 AM CAT SCAN TECH Gender Identity Not on file Sexual Orientation Not on file documented as of this encounter Plan of Treatment Upcoming Encounters Date Type Department Care Team (Late st Contact Info) Description 10/02/2024 11:45 AM CDT Office Visit [facility] Oncology and Hematology - [place] [address] [place] [address] Dr [address] [place] [address] [place] [address] [place] [address] [address] [place] [address] documented as of this encounter Visit Diagnoses Not on filedocumented in this encounter Care Teams Gem Cutter Relationship Specialty Start Date End Date Abrahan Mcgee MD [address] [place] [address] PCP - General Family Practice 04/03/24 documented as of this encounter
--- OUTSIDE RECORDS SUMMARY | 2024-08-08 11:05 | XMS_ITS | Encounter Summary ---
Author Organization [facility] Address [address] [place] [address] Care Team Providers Care Attic Blower Name Role Phone Abrahan Mcgee MD Primary Care Provider [phone] Encounter Details Date Type Department Care Team (Latest Contact Info) Description 12/04/2005 Outpatient Historical HIS [facility] Andre Vidal MD NO ADDRESS ON FILE Essential Hypertension, Benign (Primary Dx) Social History Tobacco Use Types Packs/Day Years Used Date Smoking Tobacco: Never Assessed Comments Unknown Sex and Gender Information Value Date Recorded Sex Assigned at Not on file Legal Sex Female 3:33 AM NETWORK CONSULTANT Gender Identity Not on file Sexual Orientation Not on file documented as of this encounter Plan of Treatment Upcoming Encounters Date Type Department Care Team (Late st Contact Info) Description 10/02/2024 11:45 AM CDT Office Visit [facility] Oncology and Hematology - [place] [address] [facility] [address] [place] [address] Prince Mir MD [address] [facility] [address] [place] [address] documented as of this encounter [...] ORDERABLES Final Res ult Performing Organization Address City/[facility] Co de Phone Number INTERFACE [...] ORDERABLES Final Res ult Performing Organization Address City/[facility]/ZIP Co de Phone Number INTERFACE SYSTEM Refer to clinic/hospital department documented in this encounter Visit Diagnoses Diagnosis Essential hypertension, benign- Primary documented in this encounter Care Teams Attic Blower Relationship Specialty Start Date End Date Abrahan Mcgee MD [address] [place] [address] PCP - General Family Practice 04/03/24 documented as of this encounter
--- OUTSIDE RECORDS SUMMARY | 2024-08-08 11:05 | XMS_ITS | Encounter Summary ---
Author Organization [facility] Address [address] [place] [address] Care Team Providers Care Quality Assistant Name Role Phone Abrahan Mcgee MD Primary Care Provider [phone] Encounter Details Date Type Department Care Team (Latest Contact Info) Description 11/24/2005 Outpatient Historical HIS [facility] Sneed, Oscar Medeiros MD NO ADDRESS ON FILE Other Screening Mammogram (Primary Dx) Social History Tobacco Use Types Packs/Day Years Used Date Smoking Tobacco: Never Assessed Comments Unknown Sex and Gender Information Value Date Recorded Sex Assigned at Not on file Legal Sex Female 3:33 AM LOG BUYER Gender Identity Not on file Sexual Orientation Not on file documented as of this encounter Plan of Treatment Upcoming Encounters Date Type Department Care Team (Late st Contact Info) Description 10/02/2024 11:45 AM CDT Office Visit [facility] Oncology and Hematology - [place] [address] [place] [address] Dr [address] [place] [address] [place] [address] [place] [address] [address] [place] [address] documented as of this encounter Visit Diagnoses Diagnosis Other screening mammogram- Primary documented in this encounter Care Teams Quality Assistant Relationship Specialty Start Date End Date Abrahan Mcgee MD [address] [place] [address] PCP - General Family Practice 04/03/24 documented as of this encounter
--- OUTSIDE RECORDS SUMMARY | 2024-08-08 11:05 | XMS_ITS | Encounter Summary ---
Author Organization [facility] Address [address] [facility] Attn: Epic Prelude ADT [place] SPARROW [address] Care Team Providers Care Deputy Felony Clerk Name Role Phone Abrahan Mcgee MD Primary Care Provider [phone] Encounter Details Date Type Department Care Team (Late st Contact Info) Description 08/08/1993 Outpatient Historical Andre Ernst MD NO ADDRESS ON FILE Social History Tobacco Use Types Packs/Day Years Used Date Smoking Tobacco: Never Assessed Comments Unknown Sex and Gender Information Value Date Recorded Sex Assigned at Not on file Legal Sex Female 3:33 AM DIRECTOR OF CATH LAB Gender Identity Not on file Sexual Orientation Not on file documented as of this encounter Plan of Treatment Upcoming Encounters Date Type Department Care Team (Late st Contact Info) Description 10/02/2024 11:45 AM CDT [facility] Oncology and Hematology - [place] [address] [place] [address] Dr [address] [place] [address] Prince Mir MD [address] [place] [address] [address] [place] [address] documented as of this encounter Visit Diagnoses Not on filedocumented in this encounter Care Teams Deputy Felony Clerk Relationship Specialty Start Date End Date Abrahan Mcgee MD [address] [place] [address] PCP - General Family Practice 04/03/24 documented as of this encounter
--- OUTSIDE RECORDS SUMMARY | 2024-08-08 11:05 | XMS_ITS | Encounter Summary ---
Author Organization [facility] Address [address] [place] [address] Care Team Providers Care Supervisor Heavy Equipment Name Role Phone Abrahan Mcgee MD Primary Care Provider [phone] Encounter Details Date Type Department Care Team (Late st Contact Info) Description 11/27/2002 Outpatient Historical HIS [facility] Berta Monae MD [address] [place] [address] Social History Tobacco Use Types Packs/Day Years Used Date Smoking Tobacco: Never Assessed Comments Unknown Sex and Gender Information Value Date Recorded Sex Assigned at Not on file Legal Sex Female 3:33 AM AVIATION TECHNICIAN Gender Identity Not on file Sexual Orientation Not on file documented as of this encounter Plan of Treatment Upcoming Encounters Date Type Department Care Team (Late st Contact Info) Description 10/02/2024 11:45 AM CDT Office Visit [facility] Oncology and Hematology - [place] [address] [place] [address] Dr [address] [place] [address] Prince Mir MD [address] [facility] [address] [place] [address] documented as of this encounter Visit Diagnoses Not on filedocumented in this encounter Care Teams Supervisor Heavy Equipment Relationship Specialty Start Date End Date Abrahan Mcgee MD [address] [place] [address] PCP - General Family Practice 04/03/24 documented as of this encounter
--- OUTSIDE RECORDS SUMMARY | 2024-08-08 11:05 | XMS_ITS | Encounter Summary ---
Author Organization [facility] Address [address] [place] [address] Care Team Providers Care Supervisor Asbestos Textile Name Role Phone Abrahan Mcgee MD Primary Care Provider [phone] Encounter Details Date Type Department Care Team (Late st Contact Info) Description 01/06/2006 Outpatient Historical HIS [facility] Andre Ernst MD NO ADDRESS ON FILE Social History Tobacco Use Types Packs/Day Years Used Date Smoking Tobacco: Never Assessed Comments Unknown Sex and Gender Information Value Date Recorded Sex Assigned at Not on file Legal Sex Female 3:33 AM CHRISTIAN COUNSELOR Gender Identity Not on file Sexual Orientation Not on file documented as of this encounter Plan of Treatment Upcoming Encounters Date Type Department Care Team (Late st Contact Info) Description 10/02/2024 11:45 AM CDT Office Visit [facility] Oncology and Hematology - [place] [address] [place] [address] Dr [address] [place] [address] [place] [address] [place] [address] [address] [place] [address] documented as of this encounter Visit Diagnoses Not on filedocumented in this encounter Care Teams Supervisor Asbestos Textile Relationship Specialty Start Date End Date Abrahan Mcgee MD [address] [place] [address] PCP - General Family Practice 04/03/24 documented as of this encounter
--- OUTSIDE RECORDS SUMMARY | 2024-08-08 11:05 | XMS_ITS | Encounter Summary ---
Author Organization [facility] Address [address] [facility] Attn: Epic Prelude ADT [place] SPARROW [address] Care Team Providers Care Earth Science Laboratory Technician Name Role Phone Abrahan Mcgee [...] on file Legal Sex Female 3:33 AM BOOKKEEPING TEACHER Gender Identity Not on file Sexual Orientation Not on file documented as of this encounter Plan of Treatment Upcoming Encounters Date Type Department Care Team (Late st Contact Info) Description 10/02/2024 11:45 AM CDT Office Visit [facility] Oncology and Hematology - [place] [address] [place] [address] Dr [address] [place] [address] Prince Mir MD [address] [place] [address] [address] [place] [address] documented as of this encounter Visit Diagnoses Not on filedocumented in this encounter Care Teams Earth Science Laboratory Technician Relationship Specialty Start Date End Date Abrahan Mcgee MD [address] [place] [address] PCP - General Family Practice 04/03/24 documented as of this encounter
--- OUTSIDE RECORDS SUMMARY | 2024-08-08 11:05 | XMS_ITS | Encounter Summary ---
Author Organization [facility] Address [address] [place] [address] Care Team Providers Care Frame Table Operator Helper Name Role Phone Abrahan Mcgee MD Primary Care Provider [phone] Encounter Details Date Type Department Care Team (Latest Contact Info) Description 02/24/2002 Outpatient Historical HIS [facility] Andre Vidal MD NO ADDRESS ON FILE CHRONIC SINUSITIS NOS (Primary Dx) Social History Tobacco Use Types Packs/Day Years Used Date Smoking Tobacco: Never Assessed Comments Unknown Sex and Gender Information Value Date Recorded Sex Assigned at Not on file Legal Sex Female 3:33 AM SUPERVISOR GRADING Gender Identity Not on file Sexual Orientation Not on file documented as of this encounter Plan of Treatment Upcoming Encounters Date Type Department Care Team (Late st Contact Info) Description 10/02/2024 11:45 AM CDT Office Visit [facility] Oncology and Hematology - [place] [address] [place] [address] [address] [place] [address] [place] [address] [place] [address] [address] [place] [address] documented as of this encounter Visit Diagnoses Diagnosis Unspecified sinusitis (chronic)- Primary documented in this encounter Care Teams Frame Table Operator Helper Relationship Specialty Start Date End Date Abrahan Mcgee MD [address] [place] [address] PCP - General Family Practice 04/03/24 documented as of this encounter
--- OUTSIDE RECORDS SUMMARY | 2024-08-08 11:05 | XMS_ITS | Encounter Summary ---
Author Organization [facility] Address [address] [place] [address] Care Team Providers Care Supervisor Reclamation Name Role Phone Abrahan Mcgee MD Primary Care Provider [phone] Encounter Details Date Type Department Care Team (Late st Contact Info) Description 03/16/2002 Outpatient Historical HIS [facility] Andre Ernst MD NO ADDRESS ON FILE Social History Tobacco Use Types Packs/Day Years Used Date Smoking Tobacco: Never Assessed Comments Unknown Sex and Gender Information Value Date Recorded Sex Assigned at Not on file Legal Sex Female 3:33 AM SEARCH DEVELOPER Gender Identity Not on file Sexual Orientation Not on file documented as of this encounter Plan of Treatment Upcoming Encounters Date Type Department Care Team (Late st Contact Info) Description 10/02/2024 11:45 AM CDT Office Visit [facility] Oncology and Hematology - [place] [address] [place] [address] [address] [place] [address] [place] [address] [place] [address] [address] [place] [address] documented as of this encounter Visit Diagnoses Not on filedocumented in this encounter Care Teams Supervisor Reclamation Relationship Specialty Start Date End Date Abrahan Mcgee MD [address] [place] [address] PCP - General Family Practice 04/03/24 documented as of this encounter
--- OUTSIDE RECORDS SUMMARY | 2024-08-08 11:05 | XMS_ITS | Encounter Summary ---
Author Organization [facility] Address [address] [place] [address] Care Team Providers Care Panel Maker Name Role Phone Abrahan Mcgee MD Primary Care Provider [phone] Encounter Details Date Type Department Care Team (Late st Contact Info) Description 02/24/2005 Outpatient Historical [facility] Adult Hospitalists [facility] [address] [place] [address] Alcon Valadez MD [address] [place] [address] Social History Tobacco Use Types Packs/Day Years Used Date Smoking Tobacco: Never Assessed Comments Unknown Sex and Gender Information Value Date Recorded Sex Assigned at Not on file Legal Sex Female 3:33 AM VEHICLE MODIFICATION TECHNICIAN Gender Identity Not on file Sexual Orientation Not on file documented as of this encounter Plan of Treatment Upcoming Encounters Date Type Department Care Team (Late st Contact Info) Description 10/02/2024 11:45 AM CDT Office Visit [facility] Oncology and Hematology - [place] [address] [facility] [address] [place] [address] Prince Mir MD [address] [facility] [address] [place] [address] documented as of this encounter Visit Diagnoses Not on filedocumented in this encounter Care Teams Panel Maker Relationship Specialty Start Date End Date Abrahan Mcgee MD [address] [place] [address] PCP - General Family Practice 04/03/24 documented as of this encounter
--- OUTSIDE RECORDS SUMMARY | 2024-08-08 11:05 | XMS_ITS | Encounter Summary ---
Author Organization [facility] Address [address] [facility] Attn: Epic Prelude ADT [place] [address] Care Team Providers Care Planning Specialist Name Role Phone Abrahan Mcgee MD Primary Care Provider [phone] Encounter Details Date Type Department Care Team (Late st Contact Info) Description 10/05/1994 Outpatient Historical Andre Ernst MD NO ADDRESS ON FILE Social History Tobacco Use Types Packs/Day Years Used Date Smoking Tobacco: Never Assessed Comments Unknown Sex and Gender Information Value Date Recorded Sex Assigned at Not on file Legal Sex Female 3:33 AM PHYSICIAN PRESIDENT Gender Identity Not on file Sexual Orientation Not on file documented as of this encounter Plan of Treatment Upcoming Encounters Date Type Department Care Team (Late st Contact Info) Description 10/02/2024 11:45 AM CDT Office Visit [facility] Oncology and Hematology - [place] [address] [place] [address] [address] [place] [address] Prince Mir MD [address] [place] [address] [address] [place] [address] documented as of this encounter Visit Diagnoses Not on filedocumented in this encounter Care Teams Planning Specialist Relationship Specialty Start Date End Date Abrahan Mcgee MD [address] [place] [address] PCP - General Family Practice 04/03/24 documented as of this encounter
--- OUTSIDE RECORDS SUMMARY | 2024-08-08 11:05 | XMS_ITS | Encounter Summary ---
Author Organization [facility] Address [address] [place] [address] Care Team Providers Care Health And Safety Representative Name Role Phone Abrahan Mcgee MD Primary Care Provider [phone] Encounter Details Date Type Department Care Team (Late st Contact Info) Description 08/03/2001 Outpatient Historical HIS [facility] Berta Monae MD [address] [place] [address] Social History Tobacco Use Types Packs/Day Years Used Date Smoking Tobacco: Never Assessed Comments Unknown Sex and Gender Information Value Date Recorded Sex Assigned at Not on file Legal Sex Female 3:33 AM SERVICE MECHANIC Gender Identity Not on file Sexual Orientation Not on file documented as of this encounter Plan of Treatment Upcoming Encounters Date Type Department Care Team (Late st Contact Info) Description 10/02/2024 11:45 AM CDT Office Visit [facility] Oncology and Hematology - [place] [address] [place] [address] [address] [place] [address] Prince Mir MD [address] [facility] [address] [place] [address] documented as of this encounter Visit Diagnoses Not on filedocumented in this encounter Care Teams Health And Safety Representative Relationship Specialty Start Date End Date Abrahan Mcgee MD [address] [place] [address] PCP - General Family Practice 04/03/24 documented as of this encounter
--- OUTSIDE RECORDS SUMMARY | 2024-08-08 11:05 | XMS_ITS | Encounter Summary ---
Author Organization [facility] Address [address] [place] [address] Care Team Providers Care Client Service Administrator Name Role Phone Abrahan Mcgee MD Primary Care Provider [phone] Encounter Details Date Type Department Care Team (Latest Contact Info) Description 03/22/2001 Outpatient Historical HIS [facility] Andre Vidal MD NO ADDRESS ON FILE BENIGN HYPERTENSION (Primary Dx) Social History Tobacco Use Types Packs/Day Years Used Date Smoking Tobacco: Never Assessed Comments Unknown Sex and Gender Information Value Date Recorded Sex Assigned at Not on file Legal Sex Female 3:33 AM COUNTY CORONER Gender Identity Not on file Sexual Orientation Not on file documented as of this encounter Plan of Treatment Upcoming Encounters Date Type Department Care Team (Late st Contact Info) Description 10/02/2024 11:45 AM CDT Office Visit [facility] Oncology and Hematology - [place] [address] [place] [address] [address] [place] [address] [place] [address] [place] [address] [address] [place] [address] documented as of this encounter Visit Diagnoses Diagnosis Essential hypertension, benign- Primary documented in this encounter Care Teams Client Service Administrator Relationship Specialty Start Date End Date Abrahan Mcgee MD [address] [place] [address] PCP - General Family Practice 04/03/24 documented as of this encounter
--- OUTSIDE RECORDS SUMMARY | 2024-08-08 11:05 | XMS_ITS | Encounter Summary ---
Author Organization [facility] Address [address] [place] [address] Care Team Providers Care Production Line Mechanic Name Role Phone Abrahan Mcgee MD Primary Care Provider [phone] Encounter Details Date Type Department Care Team (Latest Contact Info) Description 08/15/2002 Outpatient Historical HIS [facility] Andre Vidal MD NO ADDRESS ON FILE JOINT PAIN-L/LEG (Primary Dx) Social History Tobacco Use Types Packs/Day Years Used Date Smoking Tobacco: Never Assessed Comments Unknown Sex and Gender Information Value Date Recorded Sex Assigned at Not on file Legal Sex Female 3:33 AM EXECUTIVE RECRUITER Gender Identity Not on file Sexual Orientation Not on file documented as of this encounter Plan of Treatment Upcoming Encounters Date Type Department Care Team (Late st Contact Info) Description 10/02/2024 11:45 AM CDT Office Visit [facility] Oncology and Hematology - [place] [address] [place] [address] [address] [place] [address] Prince Mir MD [address] [facility] [address] [place] [address] documented as of this encounter Visit Diagnoses Diagnosis Pain in joint, lower leg- Primary documented in this encounter Care Teams Production Line Mechanic Relationship Specialty Start Date End Date Abrahan Mcgee MD [address] [place] [address] PCP - General Family Practice 04/03/24 documented as of this encounter
--- OUTSIDE RECORDS SUMMARY | 2024-08-08 11:05 | XMS_ITS | Encounter Summary ---
Author Organization [facility] Address [address] [place] [address] Care Team Providers Care Pacs Specialist Name Role Phone Abrahan Mcgee MD Primary Care Provider [phone] Encounter Details Date Type Department Care Team (Late st Contact Info) Description 10/29/2000 Outpatient Historical HIS [facility] Andre Ernst MD NO ADDRESS ON FILE Social History Tobacco Use Types Packs/Day Years Used Date Smoking Tobacco: Never Assessed Comments Unknown Sex and Gender Information Value Date Recorded Sex Assigned at Not on file Legal Sex Female 3:33 AM CARPENTER ASSISTANT INSTALLER Gender Identity Not on file Sexual Orientation Not on file documented as of this encounter Plan of Treatment Upcoming Encounters Date Type Department Care Team (Late st Contact Info) Description 10/02/2024 11:45 AM CDT Office Visit [facility] Oncology and Hematology - [place] [address] [place] [address] [address] [place] [address] [place] [address] [place] [address] [address] [place] [address] documented as of this encounter Visit Diagnoses Not on filedocumented in this encounter Care Teams Pacs Specialist Relationship Specialty Start Date End Date Abrahan Mcgee MD [address] [place] [address] PCP - General Family Practice 04/03/24 documented as of this encounter
--- OUTSIDE RECORDS SUMMARY | 2024-08-08 11:05 | XMS_ITS | Encounter Summary ---
Author Organization [facility] Address [address] [place] [address] Care Team Providers Care Overhead Crane Inspector Name Role Phone Abrahan Mcgee MD Primary Care Provider [phone] Encounter Details Date Type Department Care Team (Latest Contact Info) Description 01/06/2006 Outpatient Historical HIS [facility] Andre Vidal MD NO ADDRESS ON FILE Cervicalgia (Primary Dx) Social History Tobacco Use Types Packs/Day Years Used Date Smoking Tobacco: Never Assessed Comments Unknown Sex and Gender Information Value Date Recorded Sex Assigned at Not on file Legal Sex Female 3:33 AM POLITICAL SCIENCE INSTRUCTOR Gender Identity Not on file Sexual Orientation Not on file documented as of this encounter Plan of Treatment Upcoming Encounters Date Type Department Care Team (Late st Contact Info) Description 10/02/2024 11:45 AM CDT Office Visit [facility] Oncology and Hematology - [place] [address] [place] [address] [address] [place] [address] [place] [address] [place] [address] [address] [place] [address] documented as of this encounter Visit Diagnoses Diagnosis Cervicalgia- Primary documented in this encounter Care Teams Overhead Crane Inspector Relationship Specialty Start Date End Date Abrahan Mcgee MD [address] [place] [address] PCP - General Family Practice 04/03/24 documented as of this encounter
--- OUTSIDE RECORDS SUMMARY | 2024-08-08 11:05 | XMS_ITS | Encounter Summary ---
Author Organization [facility] Address [address] [place] [address] Care Team Providers Care Senior Asic Engineer Name Role Phone Abrahan Mcgee MD Primary Care Provider [phone] Encounter Details Date Type Department Care Team (Late st Contact Info) Description 02/24/2005 Outpatient Historical [facility] Support [facility] (Adt Cardiology-[facility]) [address] [place] [address] Carmine Morales MD NO ADDRESS ON FILE Social History Tobacco Use Types Packs/Day Years Used Date Smoking Tobacco: Never Assessed Comments Unknown Sex and Gender Information Value Date Recorded Sex Assigned at Not on file Legal Sex Female 3:33 AM OFFICE CLERK Gender Identity Not on file Sexual Orientation Not on file documented as of this encounter Plan of Treatment Upcoming Encounters Date Type Department Care Team (Late st Contact Info) Description 10/02/2024 11:45 AM CDT Office Visit [facility] Oncology and Hematology - [place] [address] [facility] [address] [place] [address] Prince Mir MD [address] [facility] [address] [place] [address] documented as of this encounter Visit Diagnoses Not on filedocumented in this encounter Care Teams Senior Asic Engineer Relationship Specialty Start Date End Date Abrahan Mcgee MD [address] [place] [address] PCP - General Family Practice 04/03/24 documented as of this encounter
--- OUTSIDE RECORDS SUMMARY | 2024-08-08 11:05 | XMS_ITS | Encounter Summary ---
Author Organization [facility] Address [address] [place] [address] Care Team Providers Care Chef Passenger Vessel Name Role Phone Abrahan Mcgee MD Primary Care Provider [phone] Encounter Details Date Type Department Care Team (Late st Contact Info) Description 04/12/2002 Outpatient Historical HIS [facility] Andre Ernst MD NO ADDRESS ON FILE DIAPHRAGMATIC HERNIA (Primary Dx) Social History Tobacco Use Types Packs/Day Years Used Date Smoking Tobacco: Never Assessed Comments Unknown Sex and Gender Information Value Date Recorded Sex Assigned at Not on file Legal Sex Female 3:33 AM MOVIE PRODUCER Gender Identity Not on file Sexual Orientation Not on file documented as of this encounter Plan of Treatment Upcoming Encounters Date Type Department Care Team (Late st Contact Info) Description 10/02/2024 11:45 AM CDT Office Visit [facility] Oncology and Hematology - [place] [address] [place] [address] [address] [place] [address] [place] [address] [place] [address] [address] [place] [address] documented as of this encounter Visit Diagnoses Diagnosis Diaphragmatic hernia without mention of obstruction or gangrene- Primary documented in this encounter Care Teams Chef Passenger Vessel Relationship Specialty Start Date End Date Abrahan Mcgee MD [address] [place] [address] PCP - General Family Practice 04/03/24 documented as of this encounter
--- OUTSIDE RECORDS SUMMARY | 2024-08-08 11:05 | XMS_ITS | Encounter Summary ---
Author Organization [facility] Address [address] [facility] Attn: Epic Prelude ADT [place] [address] Care Team Providers Care Water Chemist Name Role Phone Abrahan Mcgee MD Primary [...] on file Legal Sex Female 3:33 AM STRUCTURAL STEEL IRONWORKER Gender Identity Not on file Sexual Orientation Not on file documented as of this encounter Plan of Treatment Upcoming Encounters Date Type Department Care Team (Late st Contact Info) Description 10/02/2024 11:45 AM CDT Office Visit [facility] Oncology and Hematology - [place] [address] [place] [address] [address] [place] [address] Prince Mir MD [address] [place] [address] [address] [place] [address] documented as of this encounter Visit Diagnoses Not on filedocumented in this encounter Care Teams Water Chemist Relationship Specialty Start Date End Date Abrahan Mcgee MD [address] [place] [address] PCP - General Family Practice 04/03/24 documented as of this encounter
--- OUTSIDE RECORDS SUMMARY | 2024-08-08 11:05 | XMS_ITS | Encounter Summary ---
Author Organization [facility] Address [address] [place] [address] Care Team Providers Care Acquisition Marketing Coordinator Name Role Phone Abrahan Mcgee MD Primary Care Provider [phone] Encounter Details Date Type Department Care Team (Latest Contact Info) Description 10/17/2002 Outpatient Historical HIS [facility] Andre Vidal MD NO ADDRESS ON FILE PURE HYPERCHOLESTEROLEM (Primary Dx) Social History Tobacco Use Types Packs/Day Years Used Date Smoking Tobacco: Never Assessed Comments Unknown Sex and Gender Information Value Date Recorded Sex Assigned at Not on file Legal Sex Female 3:33 AM SCCM ADMINISTRATOR Gender Identity Not on file Sexual Orientation Not on file documented as of this encounter Plan of Treatment Upcoming Encounters Date Type Department Care Team (Late st Contact Info) Description 10/02/2024 11:45 AM CDT Office Visit [facility] Oncology and Hematology - [place] [address] [place] [address] [address] [place] [address] [place] [address] [place] [address] [address] [place] [address] documented as of this encounter Visit Diagnoses Diagnosis Pure hypercholesterolemia- Primary documented in this encounter Care Teams Acquisition Marketing Coordinator Relationship Specialty Start Date End Date Abrahan Mcgee MD [address] [place] [address] PCP - General Family Practice 04/03/24 documented as of this encounter
--- OUTSIDE RECORDS SUMMARY | 2024-08-08 11:05 | XMS_ITS | Encounter Summary ---
Author Organization [facility] Address [address] [place] [address] Care Team Providers Care Search Director Name Role Phone Abrahan Mcgee MD Primary Care Provider [phone] Encounter Details Date Type Department Care Team (Late st Contact Info) Description 02/07/2004 Outpatient Historical HIS [facility] Andre Ernst MD NO ADDRESS ON FILE Social History Tobacco Use Types Packs/Day Years Used Date Smoking Tobacco: Never Assessed Comments Unknown Sex and Gender Information Value Date Recorded Sex Assigned at Not on file Legal Sex Female 3:33 AM REGISTERED CLIENT ASSOCIATE Gender Identity Not on file Sexual Orientation Not on file documented as of this encounter Plan of Treatment Upcoming Encounters Date Type Department Care Team (Late st Contact Info) Description 10/02/2024 11:45 AM CDT Office Visit [facility] Oncology and Hematology - [place] [address] [place] [address] [address] [place] [address] [place] [address] [place] [address] [address] [place] [address] documented as of this encounter Visit Diagnoses Not on filedocumented in this encounter Care Teams Search Director Relationship Specialty Start Date End Date Abrahan Mcgee MD [address] [place] [address] PCP - General Family Practice 04/03/24 documented as of this encounter
--- OUTSIDE RECORDS SUMMARY | 2024-08-08 11:05 | XMS_ITS | Encounter Summary ---
Author Organization [facility] Address [address] [place] [address] Care Team Providers Care Emergency Veterinarian Name Role Phone Abrahan Mcgee MD Primary Care Provider [phone] Encounter Details Date Type Department Care Team (Late st Contact Info) Description 07/27/[address] [facility] Perry, Meryl Pereira MD [address] [place] [address] [address] ABNORMAL FINDINGS-GI TRACT (Primary Dx) Social History Tobacco Use Types Packs/Day Years Used Date Smoking Tobacco: Never Assessed Comments Unknown Sex and Gender Information Value Date Recorded Sex Assigned at Not on file Legal Sex Female 3:33 AM OFFICE SUPPORT Gender Identity Not on file Sexual Orientation Not on file documented as of this encounter Plan of Treatment Upcoming Encounters Date Type Department Care Team (Late st Contact Info) Description 10/02/2024 11:45 AM CDT Office Visit [facility] Oncology and Hematology - [place] [address] [facility] [address] [place] [address] Prince Mir MD [address] [facility] [address] [place] [address] documented as of this encounter Visit Diagnoses Diagnosis Nonspecific (abnormal) findings on radiological and other examination of gastrointestinal tract- Primary documented in this encounter Care Teams Emergency Veterinarian Relationship Specialty Start Date End Date Abrahan Mcgee MD [address] [place] [address] PCP - General Family Practice 04/03/24 documented as of this encounter
--- OUTSIDE RECORDS SUMMARY | 2024-08-08 11:05 | XMS_ITS | Clinical Summary ---
Author Organization [facility] Address [address] [place] [address] Phone Care Team Providers Care Manager Financial Planning Name Role Phone Abrahan Mcgee MD Primary Care Provider [phone] Allergies Active Allergy Reactions Criticality Noted Date [...] 9 Active fluticasone propionate (FLONASE) 50 mcg/spray [place], Suspension nasal inhaler Administer 2 Sprays in [...] Encounters Date Type Department Care Team Description 07/20/2024 External Device Data STL ABSTRACTION Provider, Abstract 07/19/2024 External Device Data STL ABSTRACTION Provider, Abstract 07/18/2024 External Device Data STL ABSTRACTION Provider, Abstract [...] Former Cigarettes 1 49 1 952 - 2000 Smokeless Tobacco: Never Tobacco Cessation:Counseling Given: Not Answered Alcohol Use Standard Drinks/Week Comments Never 0 (1 standard drink = 0.6 oz pur e alcohol) Comments Unknown Sex and Gender Information Value Date Recorded Sex Assigned at Not on file Legal Sex Female 3:33 AM LICENSING COORDINATOR Gender Identity Not on file Sexual Orientation Not on file Last Filed Vital Signs Vital Sign Reading Time Taken Comments Blood Pressure 132/71 04/03/2024 2:30 PM LICENSING COORDINATOR Pulse 69 04/03/2024 2:30 PM LICENSING COORDINATOR Temperature 36.1 C (97 F) 04/03/2024 2:30 PM LICENSING COORDINATOR Respiratory Rate 14 04/03/2024 2:30 PM LICENSING COORDINATOR Oxygen Saturation 96% 04/03/2024 2:30 PM LICENSING COORDINATOR Inhaled Oxygen Concentration - - Weight 53.1 kg (117 lb) 04/03/2024 2:30 PM LICENSING COORDINATOR Height 149.9 cm (4' 11) 12/09/2022 2:04 PM CDT Body Mass Index 23.63 12/09/2022 2:04 PM CDT Plan of Treatment Upcoming Encounters Date Type Department Care Team (Late st Contact Info) Description 10/02/2024 11:45 AM CDT Office Visit [facility] Oncology and Hematology - [place] [address] [facility] [address] [place] [address] Prince Mir MD [address] [facility] [address] [place] [address] Health Maintenance Due Date Last Done Comments DTAP/TDAP/TD VACCINES (1 - Tdap) 10/12/1954 ZOSTER VACCINE (1 of 2) 10/12/1985 OSTEOPOROSIS SCREENING 10/12/2000 RSV VACCINE (60+ or ) (1 - 1-dose 75+ series) 10/12/2010 PNEUMOCOCCAL VACCINE 50+ YEARS (2 of 2 - PPSV23) 12/1612/16/2018 INFLUENZA VACCINE (#1) 2023 01/20/2019 Insurance [facility] Care Teams Manager Financial Planning Relationship Specialty Start Date End Date Abrahan Mcgee MD [address] [place] [address] PCP - General Family Practice 04/03/24
--- OUTSIDE RECORDS SUMMARY | 2024-08-08 11:05 | XMS_ITS | Encounter Summary ---
Author Organization [facility] Address [address] [place] [address] Care Team Providers Care Race And Sports Book Writer Name Role Phone Abrahan Mcgee MD Primary Care Provider [phone] Encounter Details Date Type Department Care Team (Latest Contact Info) Description 10/29/2000 Outpatient Historical HIS [facility] ЕКАТЕРИНА Ernst, Andre Guardado MD NO ADDRESS ON FILE Backache, unspecified (Primary Dx) Social History Tobacco Use Types Packs/Day Years Used Date Smoking Tobacco: Never Assessed Comments Unknown Sex and Gender Information Value Date Recorded Sex Assigned at Not on file Legal Sex Female 3:33 AM BEATER HEAD Gender Identity Not on file Sexual Orientation Not on file documented as of this encounter Plan of Treatment Upcoming Encounters Date Type Department Care Team (Late st Contact Info) Description 10/02/2024 11:45 AM CDT Office Visit [facility] Oncology and Hematology - [place] [address] [place] [address] [address] [place] [address] [place] [address] [place] [address] [address] [place] [address] documented as of this encounter Visit Diagnoses Diagnosis Backache, unspecified- Primary documented in this encounter Care Teams Race And Sports Book Writer Relationship Specialty Start Date End Date Abrahan Mcgee MD [address] [place] [address] PCP - General Family Practice 04/03/24 documented as of this encounter
--- OUTSIDE RECORDS SUMMARY | 2024-08-08 11:05 | XMS_ITS | Encounter Summary ---
Author Organization [facility] Address [address] [place] [address] Care Team Providers Care Gleason Gear Generator Name Role Phone Abrahan Mcgee MD Primary Care Provider [phone] Encounter Details Date Type Department Care Team (Latest Contact Info) Description 06/05/2004 Outpatient Historical HIS [facility] Andre Vidal MD NO ADDRESS ON FILE BENIGN HYPERTENSION (Primary Dx) Social History Tobacco Use Types Packs/Day Years Used Date Smoking Tobacco: Never Assessed Comments Unknown Sex and Gender Information Value Date Recorded Sex Assigned at Not on file Legal Sex Female 3:33 AM MEDICAL CUSTOMER SERVICE REPRESENTATIVE Gender Identity Not on file Sexual Orientation Not on file documented as of this encounter Plan of Treatment Upcoming Encounters Date Type Department Care Team (Late st Contact Info) Description 10/02/2024 11:45 AM CDT Office Visit [facility] Oncology and Hematology - [place] [address] [facility] [address] [place] [address] Prince Mir MD [address] [facility] [address] [place] [address] documented as of this encounter [...] Primary documented in this encounter Care Teams Gleason Gear Generator Relationship Specialty Start Date End Date Abrahan Mcgee MD [address] [place] [address] PCP - General Family Practice 04/03/24 documented as of this encounter
--- OUTSIDE RECORDS SUMMARY | 2024-08-08 11:05 | XMS_ITS | Encounter Summary ---
Author Organization [facility] Healthcare Address [address] [place] [address] Care Team Providers Care Bottom Worker Name Role Phone Krishna Medina MD Primary Care Provider [phone] Reason for Visit * Diagnostic Imaging (Routine) - Closed Specialty Diagnoses / Procedures Referred By Contac t Referred To Contact Procedures Breast Imaging Screening Outside Reference Aft, Sweta Gleason MD PhD [address] [place] [address] Phone: tel: fax: Referral ID Status Reason Start Date Expiration Date Visits Re quested Visits Authorized [id number] Closed 01/19/2022 02/18/2023 1 1 Encounter Details Date Type Department Care Team (Late st Contact Info) Description 07/23/2017 Hospital Encounter [facility] [address] [place], [place] [id number] Social History Tobacco Use Types Packs/Day Years [...] on file Legal 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:42 PM CAR LOADER Gender Identity Not on file Sexual [...] CDT) Impressions [facility] - 01/19/2022 10:55 AM CAR LOADER These images are for Reference purposes only and have not been reviewed by [facility]. There will be no report generated by a [facility] Radiologist. Narrative [facility] - 01/19/2022 10:55 AM CAR LOADER EXAMINATION: Images For Reference Purposes Only us Sweta Conteh MD PhD IMG MAMMO PROCEDURES Final Result [facility] documented in this encounter Visit Diagnoses Not on filedocumented in this encounter Care Teams Bottom Worker Relationship Specialty Start Date End Date Krishna Medina MD [address] [address] PCP - General 10/15/16 03/16/19 documented as of this encounter
--- OUTSIDE RECORDS SUMMARY | 2024-08-08 11:05 | XMS_ITS | Encounter Summary ---
Author Organization [facility] Address [address] [place] [address] Care Team Providers Care Ramp Manager Name Role Phone Abrahan Mcgee MD Primary Care Provider [phone] Encounter Details Date Type Department Care Team (Late st Contact Info) Description 08/15/2002 Outpatient Historical HIS [facility] Andre Ernst MD NO ADDRESS ON FILE Social History Tobacco Use Types Packs/Day Years Used Date Smoking Tobacco: Never Assessed Comments Unknown Sex and Gender Information Value Date Recorded Sex Assigned at Not on file Legal Sex Female 3:33 AM CALENDER TENDER Gender Identity Not on file Sexual Orientation Not on file documented as of this encounter Plan of Treatment Upcoming Encounters Date Type Department Care Team (Late st Contact Info) Description 10/02/2024 11:45 AM CDT Office Visit [facility] Oncology and Hematology - [place] [address] [place] [address] [address] [place] [address] [place] [address] [place] [address] [address] [place] [address] documented as of this encounter Visit Diagnoses Not on filedocumented in this encounter Care Teams Ramp Manager Relationship Specialty Start Date End Date Abrahan Mcgee MD [address] [place] [address] PCP - General Family Practice 04/03/24 documented as of this encounter
--- OUTSIDE RECORDS SUMMARY | 2024-08-08 11:05 | XMS_ITS | Encounter Summary ---
Author Organization [facility] Address [address] [place] [address] Care Team Providers Care Burlap Roll Coverer Name Role Phone Abrahan Mcgee MD Primary Care Provider [phone] Encounter Details Date Type Department Care Team (Latest Contact Info) Description 02/07/2004 Outpatient Historical HIS [facility] Andre Vidal MD NO ADDRESS ON FILE BENIGN HYPERTENSION (Primary Dx) Social History Tobacco Use Types Packs/Day Years Used Date Smoking Tobacco: Never Assessed Comments Unknown Sex and Gender Information Value Date Recorded Sex Assigned at Not on file Legal Sex Female 3:33 AM GEARMAN Gender Identity Not on file Sexual Orientation Not on file documented as of this encounter Plan of Treatment Upcoming Encounters Date Type Department Care Team (Late st Contact Info) Description 10/02/2024 11:45 AM CDT Office Visit [facility] Oncology and Hematology - [place] [address] [place] [address] [address] [place] [address] [place] [address] [place] [address] [address] [place] [address] documented as of this encounter Visit Diagnoses Diagnosis Essential hypertension, benign- Primary documented in this encounter Care Teams Burlap Roll Coverer Relationship Specialty Start Date End Date Abraahn Mcgee MD [address] [place] [address] PCP - General Family Practice 04/03/24 documented as of this encounter
--- OUTSIDE RECORDS SUMMARY | 2024-08-08 11:05 | XMS_ITS | Encounter Summary ---
Author Organization [facility] Address [address] [place] [address] Care Team Providers Care Vocational Services Specialist Name Role Phone Abrahan Mcgee MD Primary Care Provider [phone] Encounter Details Date Type Department Care Team (Late st Contact Info) Description 07/23/2003 Outpatient Historical HIS [facility] DE[facility] Meryl Perry MD [address] [place] [address] [address] UTERINE LEIOMYOMA NOS (Primary Dx) Social History Tobacco Use Types Packs/Day Years Used Date Smoking Tobacco: Never Assessed Comments Unknown Sex and Gender Information Value Date Recorded Sex Assigned at Not on file Legal Sex Female 3:33 AM NAVAL GUNFIRE LIAISON OFFICER Gender Identity Not on file Sexual Orientation Not on file documented as of this encounter Plan of Treatment Upcoming Encounters Date Type Department Care Team (Late st Contact Info) Description 10/02/2024 11:45 AM CDT Office Visit [facility] Oncology and Hematology - [place] [address] [facility] [address] [place] [address] Prince Mir MD [address] [facility] [address] [place] [address] documented as of this encounter Visit Diagnoses Diagnosis Leiomyoma of uterus, unspecified- Primary documented in this encounter Care Teams Vocational Services Specialist Relationship Specialty Start Date End Date Abrahan Mcgee MD [address] [place] [address] PCP - General Family Practice 04/03/24 documented as of this encounter
--- OUTSIDE RECORDS SUMMARY | 2024-08-08 11:05 | XMS_ITS | Continuity of Care Document ---
Author Organization [facility] Address [address] [place] [address] Phone Care Team Providers Care Meeting Coordinator Name Role Phone Jerman Ramos MD Unavailable Unavailable Allergies, Adverse Reactions, Alerts Substance Reaction Status Criticality codeine GI problems Active No Information Medications Medication Instructions Dosage Effective Dates (start - stop) Status Comments fexofenadine 180 mg Tab take 1 tablet (1 80MG) by oral route every day 180 MG - Active fluticasone 50 mcg/actuation Nasal [place], Susp spray 2 spray (100MCG) by intranasal [...] Diagnoses Date Provider Providers Copied on Encounter [facility], [address], [place], [place], [id number] , [place] tel: [phone] [facility] No Information 9 Richard Stoll. [address], [address], [place], [address], [place]. tel: [phone] [facility], [address], [place], [place], [address] , [place] tel: [phone] [facility] Pancreatic cyst Apr-2 9 Richard Stoll. [address], [address], [place], [address], [place]. tel: [phone] [facility], [address], [place], [place], [id number] , [place] tel: [phone] [place] Allergy Dermatitis due to drugs and medicines taken internallyAllergic rhinitis, cause unspecified Apr-3 0 2 Berry Calderon. [address] [place] [address], [address], [id number] , . tel: [phone] Referring Provider: Kvng Smart, [address] [place] [address], [address] . tel:[phone] Family History Family Member Type Diagnosis Age [...]
--- OUTSIDE RECORDS SUMMARY | 2024-08-08 11:05 | XMS_ITS | Encounter Summary ---
Author Organization [facility] Address [address] [place] [address] Care Team Providers Care Patient Account Liaison Name Role Phone Abrahan Mcgee MD Primary Care Provider [phone] Encounter Details Date Type Department Care Team (Late st Contact Info) Description 12/04/2005 Outpatient Historical HIS [facility] Andre Ernst MD NO ADDRESS ON FILE Social History Tobacco Use Types Packs/Day Years Used Date Smoking Tobacco: Never Assessed Comments Unknown Sex and Gender Information Value Date Recorded Sex Assigned at Not on file Legal Sex Female 3:33 AM LINSEED CAKE TRIMMER Gender Identity Not on file Sexual Orientation Not on file documented as of this encounter Plan of Treatment Upcoming Encounters Date Type Department Care Team (Late st Contact Info) Description 10/02/2024 11:45 AM CDT Office Visit [facility] Oncology and Hematology - [place] [address] [place] [address] [address] [place] [address] [place] [address] [place] [address] [address] [place] [address] documented as of this encounter Visit Diagnoses Not on filedocumented in this encounter Care Teams Patient Account Liaison Relationship Specialty Start Date End Date Abrahan Mcgee MD [address] [place] [address] PCP - General Family Practice 04/03/24 documented as of this encounter
--- OUTSIDE RECORDS SUMMARY | 2024-08-08 11:05 | XMS_ITS | Encounter Summary ---
Author Organization [facility] Address [address] [place] [address] Care Team Providers Care Shift Foreman Name Role Phone Abrahan Mcgee MD Primary Care Provider [phone] Encounter Details Date Type Department Care Team (Late st Contact Info) Description 10/29/2000 Outpatient Historical HIS [facility] Andre Ernst MD NO ADDRESS ON FILE Social History Tobacco Use Types Packs/Day Years Used Date Smoking Tobacco: Never Assessed Comments Unknown Sex and Gender Information Value Date Recorded Sex Assigned at Not on file Legal Sex Female 3:33 AM CLINICAL BIOCHEMIST Gender Identity Not on file Sexual Orientation Not on file documented as of this encounter Plan of Treatment Upcoming Encounters Date Type Department Care Team (Late st Contact Info) Description 10/02/2024 11:45 AM CDT Office Visit [facility] Oncology and Hematology - [place] [address] [place] [address] [address] [place] [address] [place] [address] [place] [address] [address] [place] [address] documented as of this encounter Visit Diagnoses Not on filedocumented in this encounter Care Teams Shift Foreman Relationship Specialty Start Date End Date Abrahan Mcgee MD [address] [place] [address] PCP - General Family Practice 04/03/24 documented as of this encounter
--- OUTSIDE RECORDS SUMMARY | 2024-08-08 11:05 | XMS_ITS | Encounter Summary ---
Author Organization [facility] Address [address] [place] [address] Care Team Providers Care Crawler Crane Operator Name Role Phone Abrahan Mcgee MD Primary Care Provider [phone] Encounter Details Date Type Department Care Team [...] on file Legal Sex Female 3:33 AM MED SPA MANAGER Gender Identity Not on file Sexual Orientation Not on file documented as of this encounter Plan of Treatment Upcoming Encounters Date Type Department Care Team (Late st Contact Info) Description 10/02/2024 11:45 AM CDT Office Visit [facility] Oncology and Hematology - [place] [address] [facility] [address] [place] [address] Prince Mir MD [address] [facility] [address] [place] [address] documented as of this encounter Visit Diagnoses Diagnosis Open wound of scalp, without mention of complication- Primary documented in this encounter Care Teams Crawler Crane Operator Relationship Specialty Start Date End Date Abrahan Mcgee MD [address] [place] [address] PCP - General Family Practice 04/03/24 documented as of this encounter
--- OUTSIDE RECORDS SUMMARY | 2024-08-08 11:05 | XMS_ITS | Encounter Summary ---
Author Organization [facility] Address [address] [place] [address] Care Team Providers Care Pastry Mixer Name Role Phone Abrahan Mcgee MD Primary Care Provider [phone] Encounter Details Date Type Department Care Team (Late st Contact Info) Description 08/15/2003 Outpatient Historical HIS MRI DEPT Meryl Perry MD [address] [place] [address] [address] ABDOMINAL PAIN RUQ (Primary Dx) Social History Tobacco Use Types Packs/Day Years Used Date Smoking Tobacco: Never Assessed Comments Unknown Sex and Gender Information Value Date Recorded Sex Assigned at Not on file Legal Sex Female 3:33 AM CLOTHING WORKER Gender Identity Not on file Sexual Orientation Not on file documented as of this encounter Plan of Treatment Upcoming Encounters Date Type Department Care Team (Late st Contact Info) Description 10/02/2024 11:45 AM CDT Office Visit [facility] Oncology and Hematology - [place] [address] [facility] [address] [place] [address] Prince Mir MD [address] [facility] [address] [place] [address] documented as of this encounter Visit Diagnoses Diagnosis Abdominal pain, right upper quadrant- Primary documented in this encounter Care Teams Pastry Mixer Relationship Specialty Start Date End Date Abrahan Mcgee MD [address] [place] [address] PCP - General Family Practice 04/03/24 documented as of this encounter
--- OUTSIDE RECORDS SUMMARY | 2024-08-08 11:05 | XMS_ITS | Encounter Summary ---
Author Organization [facility] Address [address] [facility] Attn: Epic Prelude ADT [place] SPARROW [address] Care Team Providers Care Tugboat Mate Name Role Phone Abrahan Mcgee MD Primary Care Provider [phone] Encounter Details Date Type Department Care Team (Late st Contact Info) Description 05/03/1990 Outpatient Historical Andre Ernst MD NO ADDRESS ON FILE Social History Tobacco Use Types Packs/Day Years Used Date Smoking Tobacco: Never Assessed Comments Unknown Sex and Gender Information Value Date Recorded Sex Assigned at Not on file Legal Sex Female 3:33 AM ZONE MANAGER Gender Identity Not on file Sexual Orientation Not on file documented as of this encounter Plan of Treatment Upcoming Encounters Date Type Department Care Team (Late st Contact Info) Description 10/02/2024 11:45 AM CDT Office Visit [facility] Oncology and Hematology - [place] [address] [place] [address] [address] [place] [address] Prince Mir MD [address] [place] [address] [address] [place] [address] documented as of this encounter Visit Diagnoses Not on filedocumented in this encounter Care Teams Tugboat Mate Relationship Specialty Start Date End Date Abrahan Mcgee MD [address] [place] [address] PCP - General Family Practice 04/03/24 documented as of this encounter
--- OUTSIDE RECORDS SUMMARY | 2024-08-08 11:05 | XMS_ITS | Encounter Summary ---
Author Organization [facility] Address [address] [place] [address] Care Team Providers Care Electric Organ Assembler And Checker Name Role Phone Abrahan Mcgee MD Primary Care Provider [phone] Encounter Details Date Type Department Care Team (Late st Contact Info) Description 03/29/2002 Outpatient Historical HIS MRI DEPT Andre Ernst MD NO ADDRESS ON FILE HEADACHE (Primary Dx) Social History Tobacco Use Types Packs/Day Years Used Date Smoking Tobacco: Never Assessed Comments Unknown Sex and Gender Information Value Date Recorded Sex Assigned at Not on file Legal Sex Female 3:33 AM SKEINS YARN EXAMINER Gender Identity Not on file Sexual Orientation Not on file documented as of this encounter Plan of Treatment Upcoming Encounters Date Type Department Care Team (Late st Contact Info) Description 10/02/2024 11:45 AM CDT Office Visit [facility] Oncology and Hematology - [place] [address] [place] [address] [address] [place] [address] [place] [address] [place] [address] [address] [place] [address] documented as of this encounter Visit Diagnoses Diagnosis Headache(784.0)- Primary Headache documented in this encounter Care Teams Electric Organ Assembler And Checker Relationship Specialty Start Date End Date Abrahan Mcgee MD [address] [place] [address] PCP - General Family Practice 04/03/24 documented as of this encounter
--- OUTSIDE RECORDS SUMMARY | 2024-08-08 11:05 | XMS_ITS | Clinical Summary ---
Author Organization [facility] Address [address] [facility] [place] [address] Care Team Providers Care Tank Welder Name Role Phone Abrahan Mcgee MD Primary Care Provider [phone] Source Comments [facility] Affiliates and Associated Physician Practices is amultiple site organization consisting of ambulatory clinics and hospital sitesin [place], [place], [place] and [place]. This disclosure is being madepursuant to the Care Everywhere program and may not contain all information available regarding this patient. Last updated 17.[facility] Social History Tobacco Use Types Packs/Day Years Used Date Smoking Tobacco: Never Assessed Comments Unknown Sex and Gender Information Value Date Recorded Sex Assigned at Not on file Legal Sex Female 6:23 PM RETAIL LEADER Gender Identity Not on file Sexual [...] patient's age to complete this topic Insurance [facility] MANAGED MEDICARE ADV AETNA MEDICARE ADV SELF PAY NO INSURANCE Member Subscriber Plan / Payer (Ef fective for All Dates) Name:Marshal Sanders Member ID:Not on file Relation to Subscriber:Not on file Name:Marshal SANDERS Subscriber ID:Not on file Address: [address] [place] [address] Payer ID:Not on file Group ID:Not on file Type:Self Pay Address: [place], [place] AETNA MEDICARE ADV SELF PAY NO INSURANCE Member Subscriber Plan / Payer (Ef fective for All Dates) Name:Marshal Sanders Member ID:Not on file Relation to Subscriber:Not on file Name:Marshal SANDERS Subscriber ID:Not on file Address: [address] [place] [address] [place] [address] Payer ID:Not on file Group ID:Not on file Type:Self Pay Address: [place], [place] Care Teams Tank Welder Relationship Specialty Start Date End Date Abrahan Mcgee MD [address] [place] [address] PCP - General 07/23/09
--- OUTSIDE RECORDS SUMMARY | 2024-08-08 11:05 | XMS_ITS | Referral Summary ---
Author Organization [facility] Address [address] [place] [address] Care Team Providers Care Chef French Name Role Phone Krishna Medina MD Unavailable [phone] Lina Yates NP Unavailable Abrahan Mcgee MD Primary Care Provider Encounters Date Type Department Care Team Description 06/06/2024 11:20 AM CDT Imaging Exam [facility] [address] [facility] [address] [place] [id number] Intermediate stage nonexudative age-related macular degeneration of both eyes 06/06/2024 11:30 AM CDT Office Visit [facility] [address] [facility] 6th Floor, [address] [facility] [place] [address] Denia Lancaster, OD Intermediate stage [...] 2021 Assessment & Plan (02/02/2022 4:10 PM CALENDERING SUPERVISOR): Well healed. Removed BCL today without complications. [...] 04/28/2019 Assessment & Plan (04/28/2019 12:28 PM CALENDERING SUPERVISOR): Monitor. Discussed signs and symptoms of Retinal tears or detachments. Pt understands to call immediately if noted. Subjective vision disturbance 04/28/2019 Assessment & Plan (04/28/2019 12:29 PM CALENDERING SUPERVISOR): Seeing pink dots No hemorrhages or retinal [...] changes. Assessment & Plan (04/28/2019 12:27 PM CALENDERING SUPERVISOR): Monitor closely Retinal hole of left eye [...] on file Legal 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:42 PM CALENDERING SUPERVISOR Gender Identity Not on file Sexual [...] 3:31 PM CDT Height 149.9 cm (4' 11.02) 08/17/2022 3:31 PM C DT Body Mass [...] from Last 3 Months Insurance AETNA MEDICARE [facility] MED[facility]ARE [facility] Advance Directives For more information, please contact: [phone] * Full Code (Latest Code Status on File) Date Activated Date Inactivated Comments 11/10/2021 10:25 AM 11/10/2021 3:44 PM * Full Code Date Activated Date Inactivated Comments 09/06/2019 9:17 AM 09/06/2019 3:17 PM * Full Code Date Activated Date Inactivated Comments 07/11/2018 9:22 AM 07/11/2018 4:10 PM Care Teams Chef French Relationship Specialty Start Date End Date Abrahan Mcgee MD [address] [place] [address] PCP - General Family Medicine 06/06/24 Krishna Medina MD [address] [address] 03/17/19 Lina Yates NP [address] [address] Nurse Practitioner 11/12/22
--- OUTSIDE RECORDS SUMMARY | 2024-08-08 11:05 | XMS_ITS | Encounter Summary ---
Author Organization [facility] Address [address] [place] [address] Care Team Providers Care Athletic Scout Name Role Phone Abrahan Mcgee MD Primary Care Provider [phone] Encounter Details Date Type Department Care Team (Latest Contact Info) Description 11/04/2001 Outpatient Historical HIS [facility] Andre Vidal MD NO ADDRESS ON FILE BENIGN HYPERTENSION (Primary Dx) Social History Tobacco Use Types Packs/Day Years Used Date Smoking Tobacco: Never Assessed Comments Unknown Sex and Gender Information Value Date Recorded Sex Assigned at Not on file Legal Sex Female 3:33 AM PROFESSOR OF PSYCHOLOGY Gender Identity Not on file Sexual Orientation Not on file documented as of this encounter Plan of Treatment Upcoming Encounters Date Type Department Care Team (Late st Contact Info) Description 10/02/2024 11:45 AM CDT Office Visit [facility] Oncology and Hematology - [place] [address] [place] [address] [address] [place] [address] [place] [address] [place] [address] [address] [place] [address] documented as of this encounter Visit Diagnoses Diagnosis Essential hypertension, benign- Primary documented in this encounter Care Teams Athletic Scout Relationship Specialty Start Date End Date Abrahan Mcgee MD [address] [place] [address] PCP - General Family Practice 04/03/24 documented as of this encounter
--- OUTSIDE RECORDS SUMMARY | 2024-08-08 11:05 | XMS_ITS | Encounter Summary ---
Author Organization [facility] Address [address] [facility] Attn: Epic Prelude ADT [place] [address] Care Team Providers Care Technical Specialist Name Role Phone Abrahan Mcgee MD [...] on file Legal Sex Female 3:33 AM AUDIO SPECIALIST Gender Identity Not on file Sexual Orientation Not on file documented as of this encounter Plan of Treatment Upcoming Encounters Date Type Department Care Team (Late st Contact Info) Description 10/02/2024 11:45 AM CDT Office Visit [facility] Oncology and Hematology - [place] [address] [place] [address] [address] [place] [address] Prince Mir MD [address] [place] [address] [address] [place] [address] documented as of this encounter Visit Diagnoses Not on filedocumented in this encounter Care Teams Technical Specialist Relationship Specialty Start Date End Date Abrahan Mcgee MD [address] [place] [address] PCP - General Family Practice 04/03/24 documented as of this encounter
--- OUTSIDE RECORDS SUMMARY | 2024-08-08 11:05 | XMS_ITS | Clinical Summary ---
Author Organization [facility] Address [address] [place] [address] Care Team Providers Care Forest Aide Name Role Phone Krishna Medina MD Unavailable [phone] Lina Yates NP Unavailable [phone] Abrahan Mcgee MD Primary Care Provider Allergies [...] 2021 Assessment & Plan (02/02/2022 4:10 PM FIELD ADJUSTER): Well healed. Removed BCL today without complications. [...] 04/28/2019 Assessment & Plan (04/28/2019 12:28 PM FIELD ADJUSTER): Monitor. Discussed signs and symptoms of Retinal tears or detachments. Pt understands to call immediately if noted. Subjective vision disturbance 04/28/2019 Assessment & Plan (04/28/2019 12:29 PM FIELD ADJUSTER): Seeing pink dots No hemorrhages or retinal [...] changes. Assessment & Plan (04/28/2019 12:27 PM FIELD ADJUSTER): Monitor closely Retinal hole of left eye [...] Description 06/06/2024 11:30 AM CDT Office Visit [facility] Ophthalmology [address] [facility] 6th Floor, [address] [facility] [address] Denia Lancaster, OD Intermediate stage nonexudative age-related macular degeneration of both eyes (Primary Dx); Retinal hole of left eye 06/06/2024 11:20 AM CDT Imaging Exam [facility] Ophthalmology [facility] [address] [phone] Intermediate stage nonexudative age-related macular degeneration of [...] on file Legal 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:42 PM FIELD ADJUSTER Gender Identity Not on file Sexual Orientation [...] Advance Directives For more information, please contact: [phone] * Full Code (Latest Code Status on File) Date Activated Date Inactivated Comments 11/10/2021 10:25 AM 11/10/2021 3:44 PM * Full Code Date Activated Date Inactivated Comments 09/06/2019 9:17 AM 09/06/2019 3:17 PM * Full Code Date Activated Date Inactivated Comments 07/11/2018 9:22 AM 07/11/2018 4:10 PM Care Teams Forest Aide Relationship Specialty Start Date End Date Abrahan Mcgee MD [address] [place] [address] PCP - General Family Medicine 06/06/24 Krishna Medina MD [address] [address] 03/17/19 Lina Yates NP [address] [address] Nurse Practitioner 11/12/22
--- OUTSIDE RECORDS SUMMARY | 2024-08-08 11:05 | XMS_ITS | Encounter Summary ---
Author Organization [facility] Address [address] [facility] Attn: Epic Prelude ADT [place] [address] Care Team Providers Care Hooker Machine Tender Name Role Phone Abrahan Mcgee MD Primary [...] on file Legal Sex Female 3:33 AM MENTAL HEALTH SPECIALIST Gender Identity Not on file Sexual Orientation Not on file documented as of this encounter Plan of Treatment Upcoming Encounters Date Type Department Care Team (Late st Contact Info) Description 10/02/2024 11:45 AM CDT Office Visit [facility] Oncology and Hematology - [place] [address] [place] [address] [address] [place] [address] Prince Mir MD [address] [place] [address] [address] [place] [address] documented as of this encounter Visit Diagnoses Not on filedocumented in this encounter Care Teams Hooker Machine Tender Relationship Specialty Start Date End Date Abrahan Mcgee MD [address] [place] [address] PCP - General Family Practice 04/03/24 documented as of this encounter
--- OUTSIDE RECORDS SUMMARY | 2024-08-08 11:05 | XMS_ITS | Encounter Summary ---
Author Organization [facility] Address [address] [place] [address] Care Team Providers Care Health And Safety Representative Name Role Phone Abrahan Mcgee MD Primary Care Provider [phone] Encounter Details Date Type Department Care Team (Latest Contact Info) Description 11/19/2003 Outpatient Historical HIS [facility] Andre Vidal MD NO ADDRESS ON FILE HYPOPOTASSEMIA (Primary Dx) Social History Tobacco Use Types Packs/Day Years Used Date Smoking Tobacco: Never Assessed Comments Unknown Sex and Gender Information Value Date Recorded Sex Assigned at Not on file Legal Sex Female 3:33 AM AUDIT DIRECTOR Gender Identity Not on file Sexual Orientation Not on file documented as of this encounter Plan of Treatment Upcoming Encounters Date Type Department Care Team (Late st Contact Info) Description 10/02/2024 11:45 AM CDT Office Visit [facility] Oncology and Hematology - [place] [address] [place] [address] [address] [place] [address] [place] [address] [place] [address] [address] [place] [address] documented as of this encounter Visit Diagnoses Diagnosis Hypopotassemia- Primary documented in this encounter Care Teams Health And Safety Representative Relationship Specialty Start Date End Date Abrahan Mcgee MD [address] [place] [address] PCP - General Family Practice 04/03/24 documented as of this encounter
--- OUTSIDE RECORDS SUMMARY | 2024-08-08 11:05 | XMS_ITS | Encounter Summary ---
Author Organization [facility] Address [address] [place] [address] Care Team Providers Care Dock Associate Name Role Phone Abrahan Mcgee MD Primary Care Provider [phone] Encounter Details Date Type Department Care Team [...] file Legal Sex Female 3:33 AM AIRCRAFT WORKER Gender Identity Not on file Sexual Orientation Not on file documented as of this encounter Plan of Treatment Upcoming Encounters Date Type Department Care Team (Late st Contact Info) Description 10/02/2024 11:45 AM CDT Office Visit [facility] Oncology and Hematology - [place] [address] [place] [address] [address] [place] [address] Prince Mir MD [address] [place] [address] [address] [place] [address] documented as of this encounter Visit Diagnoses Diagnosis Unspecified symptom associated with female genital organs- Primary documented in this encounter Care Teams Dock Associate Relationship Specialty Start Date End Date Abrahan Mcgee MD [address] [place] [address] PCP - General Family Practice 04/03/24 documented as of this encounter
--- OUTSIDE RECORDS SUMMARY | 2024-08-08 11:05 | XMS_ITS | Encounter Summary ---
Author Organization [facility] Address [address] [place] [address] Care Team Providers Care Ostomy Care Nurse Name Role Phone Krishna Medina MD Primary Care Provider [phone] Reason for Visit * Diagnostic Imaging (Routine) - Closed Specialty Diagnoses / Procedures Referred By Contac t Referred To Contact Procedures Breast Imaging Screening Outside Reference Aft, Sweta Gleason MD PhD [address] [place] [address] Phone: tel: fax: Referral ID Status Reason Start Date Expiration Date Visits Re quested Visits Authorized [id number] Closed 01/19/2022 02/18/2023 1 1 Encounter Details Date Type Department Care Team (Late st Contact Info) Description 08/26/2018 Hospital Encounter [facility] [address] [place], [place] [id number] Social History Tobacco Use Types Packs/Day Years [...] Legal 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:42 PM HIGH SCHOOL HISTORY TEACHER Gender Identity Not on file Sexual [...] CDT) Impressions [facility] - 01/19/2022 11:04 AM HIGH SCHOOL HISTORY TEACHER These images are for Reference purposes only and have not been reviewed by [facility] Radiology. There will be no report generated by a [facility] Radiologist. Narrative [facility] - 01/19/2022 11:04 AM HIGH SCHOOL HISTORY TEACHER EXAMINATION: Images For Reference Purposes Only us Sweta Conteh MD PhD IMG MAMMO PROCEDURES Final Result [facility] documented in this encounter Visit Diagnoses Not on filedocumented in this encounter Care Teams Ostomy Care Nurse Relationship Specialty Start Date End Date Krishna Medina MD [address] [address] PCP - General 10/15/16 03/16/19 documented as of this encounter
--- OUTSIDE RECORDS SUMMARY | 2024-08-08 11:05 | XMS_ITS | Encounter Summary ---
Author Organization [facility] Address 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 Gender Identity Not on file Sexual Orientation Not on file documented as of this encounter Plan of Treatment Upcoming Encounters Date Type Department Care Team (Late st Contact Info) Description 10/02/2024 11:45 AM CDT Office Visit [facility] Oncology and Hematology - [place] [address] [facility] [address] [place] [address] Prince iMr MD [address] [facility] [address] [place] [address] documented as of this encounter Visit Diagnoses Diagnosis Abdominal pain, other specified site- Primary documented in this encounter Care Teams Heating Equipment Repairer Relationship Specialty Start Date End Date Abrahan Mcgee MD [address] [place] [address] PCP - General Family Practice 04/03/24 documented as of this encounter
--- OUTSIDE RECORDS SUMMARY | 2024-08-08 11:05 | XMS_ITS | Encounter Summary ---
Author Organization [facility] Address [address] [place] [address] Care Team Providers Care Site Reliability Engineer Name Role Phone Abrahan Mcgee MD Primary Care Provider [phone] Encounter Details Date Type Department Care Team (Late st Contact Info) Description 12/01/2002 Outpatient Historical HIS MRI DEPT Berta Monae MD [address] [place], [place] [id number] NONRUPTURED CEREBRAL ANEURYSM (Primary Dx) Social History Tobacco Use Types Packs/Day Years Used Date Smoking Tobacco: Never Assessed Comments Unknown Sex and Gender Information Value Date Recorded Sex Assigned at Not on file Legal Sex Female 3:33 AM INTEGRATION AIDE Gender Identity Not on file Sexual Orientation Not on file documented as of this encounter Plan of Treatment Upcoming Encounters Date Type Department Care Team (Late st Contact Info) Description 10/02/2024 11:45 AM CDT Office Visit [facility] Oncology and Hematology - [place] [address] [place] [address] [address] [place] [address] Prince Mir MD [address] [facility] [address] [place] [address] documented as of this encounter Visit Diagnoses Diagnosis Cerebral aneurysm, nonruptured- Primary documented in this encounter Care Teams Site Reliability Engineer Relationship Specialty Start Date End Date Abrahan Mcgee MD [address] [place] [address] PCP - General Family Practice 04/03/24 documented as of this encounter
--- OUTSIDE RECORDS SUMMARY | 2024-08-08 11:05 | XMS_ITS | Encounter Summary ---
Author Organization [facility] Address 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 Gender Identity Not on file Sexual Orientation Not on file documented as of this encounter Plan of Treatment Upcoming Encounters Date Type Department Care Team (Late st Contact Info) Description 10/02/2024 11:45 AM CDT Office Visit [facility] Oncology and Hematology - [place] [address] [place] [address] [address] [place] [address] [place] [address] [place] [address] [address] [place] [address] documented as of this encounter Visit Diagnoses Diagnosis Solitary cyst of breast- Primary documented in this encounter Care Teams Lead Embedded Software Engineer Relationship Specialty Start Date End Date Abrahan Mcgee MD [address] [place] [address] PCP - General Family Practice 04/03/24 documented as of this encounter
--- OUTSIDE RECORDS SUMMARY | 2024-08-08 11:05 | XMS_ITS | Encounter Summary ---
Author Organization [facility] Address 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 Gender Identity Not on file Sexual Orientation Not on file documented as of this encounter Plan of Treatment Upcoming Encounters Date Type Department Care Team (Late st Contact Info) Description 10/02/2024 11:45 AM CDT Office Visit [facility] Oncology and Hematology - [place] [address] [place] [address] [address] [place] [address] [place] [address] [place] [address] [address] [place] [address] documented as of this encounter Visit Diagnoses Diagnosis Hypopotassemia- Primary documented in this encounter Care Teams Pick Up Truck Driver Relationship Specialty Start Date End Date Abrahan Mcgee MD [address] [place] [address] PCP - General Family Practice 04/03/24 documented as of this encounter
--- OUTSIDE RECORDS SUMMARY | 2024-08-08 11:05 | XMS_ITS | Encounter Summary ---
Author Organization [facility] Address [address] [place] [address] Care Team Providers Care Community Planning Technician Name Role Phone Abrahan Mcgee MD Primary Care Provider [phone] Encounter Details Date Type Department Care Team (Latest Contact Info) Description 03/16/2002 Outpatient Historical HIS [facility] Andre Vidal MD NO ADDRESS ON FILE BENIGN HYPERTENSION (Primary Dx) Social History Tobacco Use Types Packs/Day Years Used Date Smoking Tobacco: Never Assessed Comments Unknown Sex and Gender Information Value Date Recorded Sex Assigned at Not on file Legal Sex Female 3:33 AM [employer] Gender Identity Not on file Sexual Orientation Not on file documented as of this encounter Plan of Treatment Upcoming Encounters Date Type Department Care Team (Late st Contact Info) Description 10/02/2024 11:45 AM CDT Office Visit [facility] Oncology and Hematology - [place] [address] [place] [address] [address] [place] [address] [place] [address] [place] [address] [address] [place] [address] documented as of this encounter Visit Diagnoses Diagnosis Essential hypertension, benign- Primary documented in this encounter Care Teams Community Planning Technician Relationship Specialty Start Date End Date Abrahan Mcgee MD [address] [place] [address] PCP - General Family Practice 04/03/24 documented as of this encounter
--- OUTSIDE RECORDS SUMMARY | 2024-08-08 11:05 | XMS_ITS | Encounter Summary ---
Author Organization [facility] Address 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 Gender Identity Not on file Sexual Orientation Not on file documented as of this encounter Plan of Treatment Upcoming Encounters Date Type Department Care Team (Late st Contact Info) Description 10/02/2024 11:45 AM CDT Office Visit [facility] Oncology and Hematology - [place] [address] [place] [address] [address] [place] [address] [place] [address] [place] [address] [address] [place] [address] documented as of this encounter Visit Diagnoses Not on filedocumented in this encounter Care Teams Jig Filler Relationship Specialty Start Date End Date Abrahan Mcgee MD [address] [place] [address] PCP - General Family Practice 04/03/24 documented as of this encounter
--- OUTSIDE RECORDS SUMMARY | 2024-08-08 11:05 | XMS_ITS | Encounter Summary ---
Author Organization [facility] Address 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 Gender Identity Not on file Sexual Orientation Not on file documented as of this encounter Plan of Treatment Upcoming Encounters Date Type Department Care Team (Late st Contact Info) Description 10/02/2024 11:45 AM CDT Office Visit [facility] Oncology and Hematology - [place] [address] [place] [address] [address] [place] [address] [place] [address] [place] [address] [address] [place] [address] documented as of this encounter Visit Diagnoses Not on filedocumented in this encounter Care Teams Treating Engineer Helper Relationship Specialty Start Date End Date Abrahan Mcgee MD [address] [place] [address] PCP - General Family Practice 04/03/24 documented as of this encounter
--- OUTSIDE RECORDS SUMMARY | 2024-08-08 11:05 | XMS_ITS | Encounter Summary ---
Author Organization [facility] Address [address] [place] [address] Care Team Providers Care Crushing Foreman Name Role Phone Abrahan Mcgee MD Primary Care Provider [phone] Encounter Details Date Type Department Care Team (Late st Contact Info) Description 11/19/2003 Outpatient Historical HIS [facility] Andre Ernst MD NO ADDRESS ON FILE Social History Tobacco Use Types Packs/Day Years Used Date Smoking Tobacco: Never Assessed Comments Unknown Sex and Gender Information Value Date Recorded Sex Assigned at Not on file Legal Sex Female 3:33 AM PER DIEM INTERPRETER Gender Identity Not on file Sexual Orientation Not on file documented as of this encounter Plan of Treatment Upcoming Encounters Date Type Department Care Team (Late st Contact Info) Description 10/02/2024 11:45 AM CDT Office Visit [facility] Oncology and Hematology - [place] [address] [place] [address] [address] [place] [address] [place] [address] [place] [address] [address] [place] [address] documented as of this encounter Visit Diagnoses Not on filedocumented in this encounter Care Teams Crushing Foreman Relationship Specialty Start Date End Date Abrahan Mcgee MD [address] [place] [address] PCP - General Family Practice 04/03/24 documented as of this encounter
--- OUTSIDE RECORDS SUMMARY | 2024-08-08 11:05 | XMS_ITS | Encounter Summary ---
Author Organization [facility] Address 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 Gender Identity Not on file Sexual Orientation Not on file documented as of this encounter Plan of Treatment Upcoming Encounters Date Type Department Care Team (Late st Contact Info) Description 10/02/2024 11:45 AM CDT Office Visit [facility] Oncology and Hematology - [place] [address] [place] [address] Prince Mir MD [address] [facility] [address] [place] [address] documented as of this encounter Visit Diagnoses Diagnosis Other screening mammogram- Primary documented in this encounter Care Teams Mixer Lever Operator Relationship Specialty Start Date End Date Abrahan Mcgee MD [address] [place] [address] PCP - General Family Practice 04/03/24 documented as of this encounter
--- OUTSIDE RECORDS SUMMARY | 2024-08-08 11:05 | XMS_ITS | Encounter Summary ---
Author Organization [facility] Address [address] [place] [address] Care Team Providers Care Slot Machine Key Person Name Role Phone Abrahan Mcgee MD Primary Care Provider [phone] Reason for Visit * Diagnostic Imaging (Routine) - Closed Specialty Diagnoses / Procedures Referred By Contac t Referred To Contact Procedures Breast Imaging Diagnostic Outside Reference Aft, [place] [address] [place] [address] Phone: tel: fax: Referral ID Status Reason Start Date Expiration Date Visits Re quested Visits Authorized [id number] Closed 01/19/2022 02/18/2023 1 1 Encounter Details Date Type Department Care Team (Late st Contact Info) Description 07/21/2016 Hospital Encounter [facility] [address] [place] [id number] Social History Tobacco Use Types Packs/Day Years [...] on file Legal 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:42 PM PACKAGE YARNS DRYING MACHINE OPERATOR Gender Identity Not on file [...] CDT) Impressions [facility] - 01/19/2022 10:56 AM PACKAGE YARNS DRYING MACHINE OPERATOR These images are for Reference purposes only and have not been reviewed by [facility]iology. There will be no report generated by a [facility] Radiologist. Narrative [facility] - 01/19/2022 10:56 AM PACKAGE YARNS DRYING MACHINE OPERATOR EXAMINATION: Images For Reference Purposes Only us Sweta Conteh MD PhD IMG MAMMO PROCEDURES Final Result [facility] documented in this encounter Visit Diagnoses Not on filedocumented in this encounter Care Teams Slot Machine Key Person Relationship Specialty Start Date End Date Abrahan Mcgee MD PCP - General 10/06/11 09/09/16 documented as of this encounter
--- OUTSIDE RECORDS SUMMARY | 2024-08-08 11:05 | XMS_ITS | Encounter Summary ---
Author Organization [facility] Address [address] [place] [address] Care Team Providers Care B2B Account Executive Name Role Phone Abrahan Mcgee MD Primary Care Provider [phone] Encounter Details Date Type Department Care Team (Latest Contact Info) Description 11/26/2000 Outpatient Historical HIS [facility] Andre Vidal MD NO ADDRESS ON FILE Essential hypertension, benign (Primary Dx) Social History Tobacco Use Types Packs/Day Years Used Date Smoking Tobacco: Never Assessed Comments Unknown Sex and Gender Information Value Date Recorded Sex Assigned at Not on file Legal Sex Female 3:33 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 Gender Identity Not on file Sexual Orientation Not on file documented as of this encounter Plan of Treatment Upcoming Encounters Date Type Department Care Team (Late st Contact Info) Description 10/02/2024 11:45 AM CDT Office Visit [facility] Oncology and Hematology - [place] [address] [place] [address] [address] [place] [address] [place] [address] [place] [address] [address] [place] [address] documented as of this encounter Visit Diagnoses Diagnosis Essential hypertension, benign- Primary documented in this encounter Care Teams B2B Account Executive Relationship Specialty Start Date End Date Abrahan Mcgee MD [address] [place] [address] PCP - General Family Practice 04/03/24 documented as of this encounter
--- OUTSIDE RECORDS SUMMARY | 2024-08-08 11:05 | XMS_ITS | Encounter Summary ---
Author Organization [facility] Address [address] [facility] Attn: Epic Prelude ADT [place] [address] Care Team Providers Care Mid Level Net Developer Name Role Phone Abrahan Mcgee MD Primary Care Provider [phone] Encounter Details Date Type Department Care Team (Late st Contact Info) Description 08/03/1994 Outpatient Historical Andre Ernst MD NO ADDRESS ON FILE Social History Tobacco Use Types Packs/Day Years Used Date Smoking Tobacco: Never Assessed Comments Unknown Sex and Gender Information Value Date Recorded Sex Assigned at Not on file Legal Sex Female 3:33 AM FAMILY SERVICES SPECIALIST Gender Identity Not on file Sexual Orientation Not on file documented as of this encounter Plan of Treatment Upcoming Encounters Date Type Department Care Team (Late st Contact Info) Description 10/02/2024 11:45 AM CDT Office Visit [facility] Oncology and Hematology - [place] [address] [place] [address] [address] [place] [address] Prince Mir MD [address] [place] [address] [address] [place] [address] documented as of this encounter Visit Diagnoses Not on filedocumented in this encounter Care Teams Mid Level Net Developer Relationship Specialty Start Date End Date Abrahan Mcgee MD [address] [place] [address] PCP - General Family Practice 04/03/24 documented as of this encounter
--- OUTSIDE RECORDS SUMMARY | 2024-08-08 11:05 | XMS_ITS | Encounter Summary ---
Author Organization [facility] Address 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 Gender Identity Not on file Sexual Orientation Not on file documented as of this encounter Plan of Treatment Upcoming Encounters Date Type Department Care Team (Late st Contact Info) Description 10/02/2024 11:45 AM CDT Office Visit [facility] Oncology and Hematology - [place] [address] [facility] [address] [place] [address] Prince Mir MD [address] [facility] [address] [place] [address] documented as of this encounter [...] Primary documented in this encounter Care Teams Set Up Mechanic Crown Assembly Machine Relationship Specialty Start Date End Date Abrahan Mcgee MD [address] [place] [address] PCP - General Family Practice 04/03/24 documented as of this encounter
--- OUTSIDE RECORDS SUMMARY | 2024-08-08 11:05 | XMS_ITS | Encounter Summary ---
Author Organization [facility] Address 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 Gender Identity Not on file Sexual Orientation Not on file documented as of this encounter Plan of Treatment Upcoming Encounters Date Type Department Care Team (Late st Contact Info) Description 10/02/2024 11:45 AM CDT Office Visit [facility] Oncology and Hematology - [place] [address] [place] [address] [address] [place] [address] [place] [address] [place] [address] [address] [place] [address] documented as of this encounter Visit Diagnoses Diagnosis Essential hypertension, benign- Primary documented in this encounter Care Teams Ict Support Engineer Relationship Specialty Start Date End Date Abrahan Mcgee MD [address] [place] [address] PCP - General Family Practice 04/03/24 documented as of this encounter
--- OUTSIDE RECORDS SUMMARY | 2024-08-08 11:05 | XMS_ITS | Encounter Summary ---
Author Organization [facility] Address [address] [place] [address] Care Team Providers Care Plug Machine Operator Name Role Phone Abrahan Mcgee MD Primary Care Provider [phone] Encounter Details Date Type Department Care Team (Late st Contact Info) Description 11/26/2000 Outpatient Historical HIS [facility] Andre Ernst MD NO ADDRESS ON FILE Social History Tobacco Use Types Packs/Day Years Used Date Smoking Tobacco: Never Assessed Comments Unknown Sex and Gender Information Value Date Recorded Sex Assigned at Not on file Legal Sex Female 3:33 AM PICC NURSE Gender Identity Not on file Sexual Orientation Not on file documented as of this encounter Plan of Treatment Upcoming Encounters Date Type Department Care Team (Late st Contact Info) Description 10/02/2024 11:45 AM CDT Office Visit [facility] Oncology and Hematology - [place] [address] [place] [address] [address] [place] [address] [place] [address] [place] [address] [address] [place] [address] documented as of this encounter Visit Diagnoses Not on filedocumented in this encounter Care Teams Plug Machine Operator Relationship Specialty Start Date End Date Abrahan Mcgee MD [address] [place] [address] PCP - General Family Practice 04/03/24 documented as of this encounter
--- OUTSIDE RECORDS SUMMARY | 2024-08-08 11:05 | XMS_ITS | Encounter Summary ---
Author Organization [facility] Address 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 Gender Identity Not on file Sexual Orientation Not on file documented as of this encounter Plan of Treatment Upcoming Encounters Date Type Department Care Team (Late st Contact Info) Description 10/02/2024 11:45 AM CDT Office Visit [facility] Oncology and Hematology - [place] [address] [facility] [address] [place] [address] Prince Mir MD [address] [facility] [address] [place] [address] documented as of this encounter [...] ORDERABLES Final Re sult Performing Organization Address [facility] de Phone Number INTERFACE SYSTEM Refer to clinic/hospital department * (ABNORMAL) CBC WITH DIFFERENTIAL (06/11/2005 11:29 AM CDT) Pathologist [facility] WBC 8.1 4.0 - 9.8 K/uL INTERFACE [...] ORDERABLES Final Re sult Performing Organization Address City/[facility] Co de Phone Number [...] Headache documented in this encounter Care Teams Remote Sensing Technologist Relationship Specialty Start Date End Date Abrahan Mcgee MD [address] [place] [address] PCP - General Family Practice 04/03/24 documented as of this encounter
--- OUTSIDE RECORDS SUMMARY | 2024-08-08 11:05 | XMS_ITS | Encounter Summary ---
Author Organization [facility] Address [address] [place] [address] Care Team Providers Care Portfolio Mgr Name Role Phone Krishna Medina MD Primary Care Provider [phone] Krishna Medina MD Unavailable [phone] Reason for Visit * Diagnostic Imaging (Routine) - Closed Specialty Diagnoses / Procedures Referred By Contac t Referred To Contact Procedures Breast Imaging Screening Outside Reference Aft, Sweta [place] PhD [address] [place] [address] Phone: tel: fax: Referral ID Status Reason Start Date Expiration Date Visits Re quested Visits Authorized [id number] Closed 01/19/2022 02/18/2023 1 1 Encounter Details Date Type Department Care Team (Late st Contact Info) Description 09/25/2019 Hospital Encounter [facility] [address] [place] [id number] Social History Tobacco Use Types Packs/Day Years [...] on file Legal 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:42 PM ENVIRONMENTAL SERVICES TECH Gender Identity Not on file Sexual [...] CDT) Impressions [facility] - 01/19/2022 11:03 AM ENVIRONMENTAL SERVICES TECH These images are for Reference purposes only and have not been reviewed by [facility] Radiology. There will be no report generated by a [facility] Radiologist. Narrative [facility] - 01/19/2022 11:03 AM ENVIRONMENTAL SERVICES TECH EXAMINATION: Images For Reference Purposes Only us Sweta Conteh MD PhD IMG MAMMO PROCEDURES Final Result [facility] documented in this encounter Visit Diagnoses Not on filedocumented in this encounter Care Teams Portfolio Mgr Relationship Specialty Start Date End Date Krishna Medina MD [address] [address] PCP - General 03/17/19 04/08/21 Krishna Medina MD [address] [address] 03/17/19 documented as of this encounter
--- OUTSIDE RECORDS SUMMARY | 2024-08-08 11:05 | XMS_ITS | Encounter Summary ---
Author Organization [facility] Address [address] [place] [address] Care Team Providers Care Assembly Line Driver Name Role Phone Abrahan Mcgee MD Primary Care Provider [phone] Encounter Details Date Type Department Care Team (Latest Contact Info) Description 03/06/2004 Outpatient Historical HIS [facility] Andre Vidal MD NO ADDRESS ON FILE HYPOPOTASSEMIA (Primary Dx) Social History Tobacco Use Types Packs/Day Years Used Date Smoking Tobacco: Never Assessed Comments Unknown Sex and Gender Information Value Date Recorded Sex Assigned at Not on file Legal Sex Female 3:33 AM CUTTER HELPER Gender Identity Not on file Sexual Orientation Not on file documented as of this encounter Plan of Treatment Upcoming Encounters Date Type Department Care Team (Late st Contact Info) Description 10/02/2024 11:45 AM CDT Office Visit [facility] Oncology and Hematology - [place] [address] [facility] [address] [place] [address] Prince Mir MD [address] [facility] [address] [place] [address] documented as of this encounter Procedures Procedure Name Priority Date/Time Associated Diagnosis Comments COMPREHENSIVE METABOLIC PANEL Routine 03/06/2004 11:12 AM CUTTER HELPER documented in this encounter Results * (ABNORMAL) COMPREHENSIVE METABOLIC PANEL (03/06/2004 11:12 AM CUTTER HELPER) GLUCOSE 95 65 - 109 mg/dL INTERFACE [...] by 2nd methodology. 03/06/2004 11:1 2 AM CUTTER HELPER us Andre Ernst MD CHEMISTRY ORDERABLES Final Res ult INTERFACE SYSTEM Refer to clinic/hospital department documented in this encounter Visit Diagnoses Diagnosis Hypopotassemia- Primary documented in this encounter Care Teams Assembly Line Driver Relationship Specialty Start Date End Date Abrahan Mcgee MD [address] [place] [address] PCP - General Family Practice 04/03/24 documented as of this encounter
--- OUTSIDE RECORDS SUMMARY | 2024-08-08 11:05 | XMS_ITS | Encounter Summary ---
Author Organization [facility] Address [address] [place] [address] Care Team Providers Care Clerk Travel Reservations Name Role Phone Abrahan Mcgee MD Primary Care Provider [phone] Encounter Details Date Type Department Care Team (Late st Contact Info) Description 03/22/2001 Outpatient Historical HIS [facility] Andre Ernst MD NO ADDRESS ON FILE Social History Tobacco Use Types Packs/Day Years Used Date Smoking Tobacco: Never Assessed Comments Unknown Sex and Gender Information Value Date Recorded Sex Assigned at Not on file Legal Sex Female 3:33 AM COIL WINDING SUPERVISOR Gender Identity Not on file Sexual Orientation Not on file documented as of this encounter Plan of Treatment Upcoming Encounters Date Type Department Care Team (Late st Contact Info) Description 10/02/2024 11:45 AM CDT Office Visit [facility] Oncology and Hematology - [place] [address] [place] [address] [address] [place] [address] [place] [address] [place] [address] [address] [place] [address] documented as of this encounter Visit Diagnoses Not on filedocumented in this encounter Care Teams Clerk Travel Reservations Relationship Specialty Start Date End Date Abrahan Mcgee MD [address] [place] [address] PCP - General Family Practice 04/03/24 documented as of this encounter
--- OUTSIDE RECORDS SUMMARY | 2024-08-08 11:05 | XMS_ITS | Encounter Summary ---
Author Organization [facility] Address [address] [facility] Attn: Epic Prelude ADT FRIDA SPARROW [address] Care Team Providers Care Gear Tooth Grinding Machine Operator Name Role Phone Abrahan Mcgee [...] file Legal Sex Female 3:33 AM DIRECTOR PROJECT MANAGEMENT Gender Identity Not on file Sexual Orientation Not on file documented as of this encounter Plan of Treatment Upcoming Encounters Date Type Department Care Team (Late st Contact Info) Description 10/02/2024 11:45 AM CDT Office Visit [facility] Oncology and Hematology - [place] [address] [place] [address] [address] [place] [address] Prince Mir MD [address] [place] [address] [address] [place] [address] documented as of this encounter Visit Diagnoses Not on filedocumented in this encounter Care Teams Gear Tooth Grinding Machine Operator Relationship Specialty Start Date End Date Abrahan Mcgee MD [address] [place] [address] PCP - General Family Practice 04/03/24 documented as of this encounter
--- OUTSIDE RECORDS SUMMARY | 2024-08-08 11:06 | XMS_ITS | Encounter Summary ---
Author Organization [facility] Address [address] [place] [address] Care Team Providers Care Games Manager Name Role Phone Abrahan Mcgee MD Primary Care Provider [phone] Encounter Details Date Type Department Care Team (Late st Contact Info) Description 02/23/2005 Outpatient Historical [facility] Adult Hospitalists [facility] [address] [place] [address] Deisy Garcia MD [address] [place] [address] Social History Tobacco Use Types Packs/Day Years Used Date Smoking Tobacco: Never Assessed Comments Unknown Sex and Gender Information Value Date Recorded Sex Assigned at Not on file Legal Sex Female 3:33 AM PRIVATE DUTY NURSE Gender Identity Not on file Sexual Orientation Not on file documented as of this encounter Plan of Treatment Upcoming Encounters Date Type Department Care Team (Late st Contact Info) Description 10/02/2024 11:45 AM CDT Office Visit [facility] Oncology and Hematology - [place] [address] [facility] [address] [place] [address] Prince Mir MD [address] [facility] [address] [place] [address] documented as of this encounter Visit Diagnoses Not on filedocumented in this encounter Care Teams Games Manager Relationship Specialty Start Date End Date Abrahan Mcgee MD [address] [place] [address] PCP - General Family Practice 04/03/24 documented as of this encounter
--- OUTSIDE RECORDS SUMMARY | 2024-08-08 11:06 | XMS_ITS | Encounter Summary ---
Author Organization [facility] Address [address] [place] [address] Care Team Providers Care Manager Of Quality Name Role Phone Abrahan Mcgee MD Primary Care Provider [phone] Encounter Details Date Type Department Care Team (Late st Contact Info) Description 02/23/2005 Outpatient Historical [facility] Support Serv. (Adt Cardiology-[facility]) [address] [place] [address] Guero Malhotra MD NO ADDRESS ON FILE Social History Tobacco Use Types Packs/Day Years Used Date Smoking Tobacco: Never Assessed Comments Unknown Sex and Gender Information Value Date Recorded Sex Assigned at Not on file Legal Sex Female 3:33 AM SALES ASSOCIATE Gender Identity Not on file Sexual Orientation Not on file documented as of this encounter Plan of Treatment Upcoming Encounters Date Type Department Care Team (Late st Contact Info) Description 10/02/2024 11:45 AM CDT Office Visit [facility] Oncology and Hematology - [place] [address] [facility] [address] [place] [address] Prince Mir MD [address] [facility] [address] [place] [address] documented as of this encounter Visit Diagnoses Not on filedocumented in this encounter Care Teams Manager Of Quality Relationship Specialty Start Date End Date Abrahan Mcgee MD [address] [place] [address] PCP - General Family Practice 04/03/24 documented as of this encounter
--- OUTSIDE RECORDS SUMMARY | 2024-08-08 11:06 | XMS_ITS | Encounter Summary ---
Author Organization [facility] Address [address] [place] [address] Care Team Providers Care Boat Dock Operator Name Role Phone Abrahan Mcgee MD Primary Care Provider [phone] Encounter Details Date Type Department Care Team (Late st Contact Info) Description 09/16/2004 Outpatient Historical [facility] Andre Ernst MD NO ADDRESS ON FILE Social History Tobacco Use Types Packs/Day Years Used Date Smoking Tobacco: Never Assessed Comments Unknown Sex and Gender Information Value Date Recorded Sex Assigned at Not on file Legal Sex Female 3:33 AM MATERIAL DISPOSITION INSPECTOR Gender Identity Not on file Sexual Orientation Not on file documented as of this encounter Plan of Treatment Upcoming Encounters Date Type Department Care Team (Late st Contact Info) Description 10/02/2024 11:45 AM CDT Office Visit [facility] Oncology and Hematology - [place] [address] [place] [address] [address] [place] [address] [place] [address] [place] [address] [address] [place] [address] documented as of this encounter Visit Diagnoses Not on filedocumented in this encounter Care Teams Boat Dock Operator Relationship Specialty Start Date End Date Abrahan Mcgee MD [address] [place] [address] PCP - General Family Practice 04/03/24 documented as of this encounter
--- OUTSIDE RECORDS SUMMARY | 2024-08-08 11:06 | XMS_ITS | Encounter Summary ---
Author Organization [facility] Address [address] [place] [address] Care Team Providers Care Associate Account Director Name Role Phone Abrahan Mcgee MD Primary Care Provider [phone] Encounter Details Date Type Department Care Team (Latest Contact Info) Description 09/16/2004 Outpatient Historical [facility] Andre Vidal MD NO ADDRESS ON FILE BENIGN HYPERTENSION (Primary Dx) Social History Tobacco Use Types Packs/Day Years Used Date Smoking Tobacco: Never Assessed Comments Unknown Sex and Gender Information Value Date Recorded Sex Assigned at Not on file Legal Sex Female 3:33 AM NUT STEAMER Gender Identity Not on file Sexual Orientation Not on file documented as of this encounter Plan of Treatment Upcoming Encounters Date Type Department Care Team (Late st Contact Info) Description 10/02/2024 11:45 AM CDT Office Visit [facility] Oncology and Hematology - [place] [address] [facility] [address] [place] [address] Prince Mir MD [address] [facility] [address] [place] [address] documented as of this encounter [...] ORDERABLES Final Re sult Performing Organization Address City/[facility] Co de Phone Number INTERFACE SYSTEM Refer to clinic/hospital department * TSH (09/16/2004 11:48 AM CDT) TSH 1.55 0.27 - 4.20 uU/mL INTERFACE SYSTEM 09/16/2004 11:4 8 AM CDT Andre Ernst MD CHEMISTRY ORDERABLES Final Res ult Performing Organization Address City/[facility] Co de Phone Number INTERFACE [...] ORDERABLES Final Res ult Performing Organization Address City/[facility] Co de Phone Number INTERFACE SYSTEM Refer to clinic/hospital department documented in this encounter Visit Diagnoses Diagnosis Essential hypertension, benign- Primary documented in this encounter Care Teams Associate Account Director Relationship Specialty Start Date End Date Abrahan Mcgee MD [address] [place] [address] PCP - General Family Practice 04/03/24 documented as of this encounter
--- OUTSIDE RECORDS SUMMARY | 2024-08-08 11:06 | XMS_ITS | Encounter Summary ---
Author Organization [facility] Address [address] [place] [address] Care Team Providers Care Control Valve Mechanic Name Role Phone Abrahan Mcgee MD Primary Care Provider [phone] Encounter Details Date Type Department Care Team (Late st Contact Info) Description 12/17/2004 Outpatient Historical [facility] Meryl Perry MD [address] [place] [address] [address] BENIGN NEOPLASM LG BOWEL (Primary Dx) Social History Tobacco Use Types Packs/Day Years Used Date Smoking Tobacco: Never Assessed Comments Unknown Sex and Gender Information Value Date Recorded Sex Assigned at Not on file Legal Sex Female 3:33 AM MASTER DYER Gender Identity Not on file Sexual Orientation Not on file documented as of this encounter Plan of Treatment Upcoming Encounters Date Type Department Care Team (Late st Contact Info) Description 10/02/2024 11:45 AM CDT Office Visit [facility] Oncology and Hematology - [place] [address] [facility] [address] [place] [address] Prince Mir MD [address] [facility] [address] [place] [address] documented as of this encounter Visit Diagnoses Diagnosis Benign neoplasm of colon- Primary documented in this encounter Care Teams Control Valve Mechanic Relationship Specialty Start Date End Date Abrahan Mcgee MD [address] [place] [address] PCP - General Family Practice 04/03/24 documented as of this encounter
--- OUTSIDE RECORDS SUMMARY | 2024-08-08 11:06 | XMS_ITS | Encounter Summary ---
Author Organization [facility] Address [address] [place] [address] Care Team Providers Care Supervisor Cell Room Name Role Phone Abrahan Mcgee MD Primary Care Provider [phone] Encounter Details Date Type Department Care Team (Late st Contact Info) Description 11/27/2004 Outpatient Historical [facility] ЕКАТЕРИНА Perry, Meryl Pereira MD [address] [place] [address] ABDOMINAL PAIN RLQ (Primary Dx) Social History Tobacco Use Types Packs/Day Years Used Date Smoking Tobacco: Never Assessed Comments Unknown Sex and Gender Information Value Date Recorded Sex Assigned at Not on file Legal Sex Female 3:33 AM CLAM SHOVEL OPERATOR Gender Identity Not on file Sexual Orientation Not on file documented as of this encounter Plan of Treatment Upcoming Encounters Date Type Department Care Team (Late st Contact Info) Description 10/02/2024 11:45 AM CDT Office Visit [facility] Oncology and Hematology - [place] [address] [facility] [address] [place] [address] Prince Mir MD [address] [facility] [address] [place] [address] documented as of this encounter [...] FETOPROTEIN TUMOR MARKER (11/27/2004 11:54 AM CDT) [facility] ALPHA FETOPROTEIN TUMOR MARKER 2.2 ng/mL INTERFACE SYSTEM Comment: This test was performed using the wireWAX Immulite 2000 Assay. REFERENCE RANGE: <6.1 THE USE OF AFP A TUMOR MARKER IN FEMALES IS NOT RECOMMENDED. Lab test performed by: [facility] [address] [place] [address] EVELINA AMOS MD 11/27/2004 11:5 4 AM CDT Meryl Perry MD CHEMISTRY ORDERABLES Fin al Result INTERFACE SYSTEM Refer to clinic/hospital department * CBC WITH DIFFERENTIAL (11/27/2004 11:54 AM CDT) [facility] NEUTROPHILS 67 45 - 70 % INTERFAC [...] ORDERABLES Fi nal Result Performing Organization Address City/[facility] de Phone Number INTERFACE SYSTEM [...] ORDERABLES Fi nal Result Performing Organization Address [facility] Phone Number INTERFACE SYSTEM Refer to clinic/hospital department * (ABNORMAL) AMYLASE (11/27/2004 11:54 AM CDT) AMYLASE 141(H) 28 - 100 U/L INTERFACE SYSTEM 11/27/2004 11:5 4 AM CDT Meryl Perry MD CHEMISTRY ORDERABLES Fin al Result Performing Organization Address City/[facility] Co de Phone Number INTERFACE SYSTEM Refer to clinic/hospital department * (ABNORMAL) LIPASE (11/27/2004 11:54 AM CDT) LIPASE 97(H) 13 - 60 U/L INTERFAC E SYSTEM 11/27/2004 11:5 4 AM CDT Meryl Perry MD CHEMISTRY ORDERABLES Fin alana Result Performing Organization Address [facility] Phone Number INTERFACE SYSTEM Refer to clinic/hospital department * C-REACTIVE PROTEIN (11/27/2004 11:54 AM CDT) CRP 0.5 0.0 - 0.8 mg/dL INTERFACE SYSTEM 11/27/2004 11:5 4 AM CDT Meryl Perry MD CHEMISTRY ORDERABLES Fin alana Result Performing Organization Address [facility] Number INTERFACE SYSTEM Refer to clinic/hospital department [...] ORDERABLES Amarjit warner Result Performing Organization Address [facility] Phone Number INTERFACE SYSTEM Refer to [...] Primary documented in this encounter Care Teams Supervisor Cell Room Relationship Specialty Start Date End Date Abrahan Mcgee MD [address] [place] [address] PCP - General Family Practice 04/03/24 documented as of this encounter
--- OUTSIDE RECORDS SUMMARY | 2024-08-08 11:06 | XMS_ITS | Encounter Summary ---
Author Organization [facility] Address [address] [place] [address] Care Team Providers Care Handy Worker Name Role Phone Abrahan Mcgee MD Primary Care Provider [phone] Encounter Details Date Type Department Care Team (Late st Contact Info) Description 06/11/2005 Outpatient Historical [facility] Andre Ernst MD NO ADDRESS ON FILE Social History Tobacco Use Types Packs/Day Years Used Date Smoking Tobacco: Never Assessed Comments Unknown Sex and Gender Information Value Date Recorded Sex Assigned at Not on file Legal Sex Female 3:33 AM PROGRAM EVALUATOR Gender Identity Not on file Sexual Orientation Not on file documented as of this encounter Plan of Treatment Upcoming Encounters Date Type Department Care Team (Late st Contact Info) Description 10/02/2024 11:45 AM CDT Office Visit [facility] Oncology and Hematology - [place] [address] [place] [address] [address] [place] [address] [place] [address] [place] [address] [address] [place] [address] documented as of this encounter Visit Diagnoses Not on filedocumented in this encounter Care Teams Handy Worker Relationship Specialty Start Date End Date Abrahan Mcgee MD [address] [place] [address] PCP - General Family Practice 04/03/24 documented as of this encounter
--- OUTSIDE RECORDS SUMMARY | 2024-08-08 11:06 | XMS_ITS | Encounter Summary ---
Author Organization [facility] Address [address] [place] [address] Care Team Providers Care Tin Plater Name Role Phone Abrahan Mcgee MD Primary Care Provider [phone] Encounter Details Date Type Department Care Team (Late st Contact Info) Description 12/18/2004 Outpatient Historical [facility] Andre Ernst MD NO ADDRESS ON FILE Social History Tobacco Use Types Packs/Day Years Used Date Smoking Tobacco: Never Assessed Comments Unknown Sex and Gender Information Value Date Recorded Sex Assigned at Not on file Legal Sex Female 3:33 AM ROLL SHOP SUPERVISOR Gender Identity Not on file Sexual Orientation Not on file documented as of this encounter Plan of Treatment Upcoming Encounters Date Type Department Care Team (Late st Contact Info) Description 10/02/2024 11:45 AM CDT Office Visit [facility] Oncology and Hematology - [place] [address] [place] [address] [address] [place] [address] [place] [address] [place] [address] [address] [place] [address] documented as of this encounter Visit Diagnoses Not on filedocumented in this encounter Care Teams Tin Plater Relationship Specialty Start Date End Date Abrahan Mcgee MD [address] [place] [address] PCP - General Family Practice 04/03/24 documented as of this encounter
--- OUTSIDE RECORDS SUMMARY | 2024-08-08 11:06 | XMS_ITS | Encounter Summary ---
Author Organization [facility] Address [address] [place] [address] Care Team Providers Care Crt Name Role Phone Abrahan Mcgee MD Primary Care Provider [phone] Encounter Details Date Type Department Care Team (Late st Contact Info) Description 12/05/2004 Outpatient Historical [facility] Meryl Perry MD [address] [place] [address] [address] UTERINE LEIOMYOMA NOS (Primary Dx) Social History Tobacco Use Types Packs/Day Years Used Date Smoking Tobacco: Never Assessed Comments Unknown Sex and Gender Information Value Date Recorded Sex Assigned at Not on file Legal Sex Female 3:33 AM SAP BW DEVELOPER Gender Identity Not on file Sexual Orientation Not on file documented as of this encounter Plan of Treatment Upcoming Encounters Date Type Department Care Team (Late st Contact Info) Description 10/02/2024 11:45 AM CDT Office Visit [facility] Oncology and Hematology - [place] [address] [facility] [address] [place] [address] Prince Mir MD [address] [facility] [address] [place] [address] documented as of this encounter Visit Diagnoses Diagnosis Leiomyoma of uterus, unspecified- Primary documented in this encounter Care Teams Crt Relationship Specialty Start Date End Date Abrahan Mcgee MD [address] [place] [address] PCP - General Family Practice 04/03/24 documented as of this encounter
--- OUTSIDE RECORDS SUMMARY | 2024-08-08 11:06 | XMS_ITS | Encounter Summary ---
Author Organization [facility] Address [address] [place] [address] Care Team Providers Care Chief Technician Name Role Phone Abrahan Mcege MD Primary Care Provider [phone] Encounter Details Date Type Department Care Team [...] on file Legal Sex Female 3:33 AM WAVE GUIDE ASSEMBLER Gender Identity Not on file Sexual Orientation Not on file documented as of this encounter Plan of Treatment Upcoming Encounters Date Type Department Care Team (Late st Contact Info) Description 10/02/2024 11:45 AM CDT Office Visit [facility] Oncology and Hematology - [place] [address] [place] [address] [address] [place] [address] Prince Mir MD [address] [place] [address] [address] [place] [address] documented as of this encounter Visit Diagnoses Diagnosis Allergic rhinitis due to pollen- Primary documented in this encounter Care Teams Chief Technician Relationship Specialty Start Date End Date Abrahan Mcgee MD [address] [place] [address] PCP - General Family Practice 04/03/24 documented as of this encounter
--- OUTSIDE RECORDS SUMMARY | 2024-08-08 11:06 | XMS_ITS | Encounter Summary ---
Author Organization [facility] Address [address] [place] [address] Care Team Providers Care Adult Neurologist Name Role Phone Abrahan Mcgee MD Primary Care Provider [phone] Encounter Details Date Type Department Care Team (Latest Contact Info) Description 11/27/2004 Outpatient Historical HIS [facility] ЕКАТЕРИНА Sneed, Oscar Medeiros MD NO ADDRESS ON FILE SCREENING MAMM-MAILG NEOPL NEC (Primary Dx) Social History Tobacco Use Types Packs/Day Years Used Date Smoking Tobacco: Never Assessed Comments Unknown Sex and Gender Information Value Date Recorded Sex Assigned at Not on file Legal Sex Female 3:33 AM NETWORK OPERATIONS LEAD Gender Identity Not on file Sexual Orientation Not on file documented as of this encounter Plan of Treatment Upcoming Encounters Date Type Department Care Team (Late st Contact Info) Description 10/02/2024 11:45 AM CDT Office Visit [facility] Oncology and Hematology - [place] [address] [place] [address] [address] [place] [address] [place] [address] [place] [address] [address] [place] [address] documented as of this encounter Visit Diagnoses Diagnosis Other screening mammogram- Primary documented in this encounter Care Teams Adult Neurologist Relationship Specialty Start Date End Date Abrahan Mcgee MD [address] [place] [address] PCP - General Family Practice 04/03/24 documented as of this encounter
--- OUTSIDE RECORDS SUMMARY | 2024-08-08 11:06 | XMS_ITS | Clinical Summary ---
Author Organization [facility] Care Team Providers Care Yard Coupler Name Role Phone Unavailable Primary Care Provider [...]
--- OUTSIDE RECORDS SUMMARY | 2024-08-08 11:06 | XMS_ITS | Encounter Summary ---
Author Organization [facility] Address [address] [place] [address] Care Team Providers Care Human Service Technician Name Role Phone Abrahan Mcgee MD Primary Care Provider [phone] Encounter Details Date Type Department Care Team (Late st Contact Info) Description 07/09/2005 Outpatient Historical [facility] Andre Ernst MD NO ADDRESS ON FILE Social History Tobacco Use Types Packs/Day Years Used Date Smoking Tobacco: Never Assessed Comments Unknown Sex and Gender Information Value Date Recorded Sex Assigned at Not on file Legal Sex Female 3:33 AM DIRECTOR POWER Gender Identity Not on file Sexual Orientation Not on file documented as of this encounter Plan of Treatment Upcoming Encounters Date Type Department Care Team (Late st Contact Info) Description 10/02/2024 11:45 AM CDT Office Visit [facility] Oncology and Hematology - [place] [address] [place] [address] [address] [place] [address] [place] [address] [place] [address] [address] [place] [address] documented as of this encounter Visit Diagnoses Not on filedocumented in this encounter Care Teams Human Service Technician Relationship Specialty Start Date End Date Abrahan Mcgee MD [address] [place] [address] PCP - General Family Practice 04/03/24 documented as of this encounter
--- OUTSIDE RECORDS SUMMARY | 2024-08-08 11:06 | XMS_ITS | Encounter Summary ---
Author Organization [facility] Address [address] [place] [address] Care Team Providers Care Blower Operator Name Role Phone Abrahan Mcgee MD Primary Care Provider [phone] Encounter Details Date Type Department Care Team (Latest Contact Info) Description 02/23/2005 Inpatient Historical [facility] Alcon Valadez MD [address] [address] Deisy Garcia MD [address] [address] CHEST PAIN NOS (Primary Dx) Social History Tobacco Use Types Packs/Day Years Used Date Smoking Tobacco: Never Assessed Comments Unknown Sex and Gender Information Value Date Recorded Sex Assigned at Not on file Legal Sex Female 3:33 AM WATER SAFETY INSTRUCTOR Gender Identity Not on file Sexual Orientation Not on file documented as of this encounter Plan of Treatment Upcoming Encounters Date Type Department Care Team (Late st Contact Info) Description 10/02/2024 11:45 AM CDT Office Visit [facility] Oncology and Hematology - [place] [address] [facility] [address] [place] [address] Prince Mir MD [address] [facility] [address] [place] [address] documented as of this encounter Procedures Procedure Name Priority Date/Time Associated Diagnosis Comments CBC WITH DIFFERENTIAL Routine 02/25/2005 4:30 AM WATER SAFETY INSTRUCTOR CBC WITH DIFFERENTIAL Routine 02/25/2005 4:30 AM WATER SAFETY INSTRUCTOR C-REACTIVE PROTEIN Routine 02/25/2005 4: 30 AM WATER SAFETY INSTRUCTOR T3 FREE Routine 02/25/2005 4:30 AM WATER SAFETY INSTRUCTOR T4 FREE Routine 02/25/2005 4:30 AM WATER SAFETY INSTRUCTOR BASIC METABOLIC PANEL Routine 02/25/2005 4:30 AM WATER SAFETY INSTRUCTOR TSH Routine 02/24/2005 4:35 AM WATER SAFETY INSTRUCTOR LIPASE Routine 02/24/2005 4:35 AM WATER SAFETY INSTRUCTOR AMYLASE Routine 02/24/2005 4:35 AM WATER SAFETY INSTRUCTOR LIPID PANEL Routine 02/24/2005 4:35 AM WATER SAFETY INSTRUCTOR BASIC METABOLIC PANEL Routine 02/24/2005 4:35 AM WATER SAFETY INSTRUCTOR TROPONIN (W/REFLEX CKMB/CK) Routine 02/24/2005 4:15 AM WATER SAFETY INSTRUCTOR TROPONIN (W/REFLEX CKMB/CK) Routine 02/23/2005 10:15 PM WATER SAFETY INSTRUCTOR URINALYSIS W/REFLEX MICROSCOPIC Routine 02/23/2005 8:31 PM WATER SAFETY INSTRUCTOR TROPONIN (W/REFLEX CKMB/CK) Routine 02/23/2005 1:28 PM WATER SAFETY INSTRUCTOR CBC WITH DIFFERENTIAL Routine 02/23/2005 12:46 PM WATER SAFETY INSTRUCTOR CBC WITH DIFFERENTIAL Routine 02/23/2005 12:46 PM WATER SAFETY INSTRUCTOR LIPASE Routine 02/23/2005 12:46 PM WATER SAFETY INSTRUCTOR AMYLASE Routine 02/23/2005 12:46 PM WATER SAFETY INSTRUCTOR COMPREHENSIVE METABOLIC PANEL Routine 02/23/2005 12:46 PM WATER SAFETY INSTRUCTOR documented in this encounter Results * CBC WITH DIFFERENTIAL (02/25/2005 4:30 AM WATER SAFETY INSTRUCTOR) NEUTROPHILS 52 45 - 70 % INTERFAC [...] 0.20 K/uL INTERFACE SYSTEM 02/25/2005 4:30 AM WATER SAFETY INSTRUCTOR Alcon Valadez MD HEMATOLOGY ORDERABLES Final Re sult Performing Organization Address [facility] de Phone Number INTERFACE SYSTEM Refer to clinic/hospital department * (ABNORMAL) CBC WITH DIFFERENTIAL (02/25/2005 4:30 AM WATER SAFETY INSTRUCTOR) WBC 7.4 4.0 - 9.8 K/uL INTERFACE [...] 12.4 fL INTERFACE SYSTEM 02/25/2005 4:30 AM WATER SAFETY INSTRUCTOR Alcon Valadez MD HEMATOLOGY ORDERABLES Final Re sult Performing Organization Address [facility]/ZIP Co de Phone Number INTERFACE SYSTEM Refer to clinic/hospital department * T3 FREE (02/25/2005 4:30 AM WATER SAFETY INSTRUCTOR) T3 FREE 2.9 2.5 - 4.4 pg/mL INTERFACE SYSTEM 02/25/2005 4:30 AM WATER SAFETY INSTRUCTOR us Alcon Valadez MD CHEMISTRY ORDERABLES Final Res ult Performing Organization Address [facility] Phone Number INTERFACE SYSTEM Refer to clinic/hospital department * T4 FREE (02/25/2005 4:30 AM WATER SAFETY INSTRUCTOR) T4 FREE 1.3 0.9 - 1.7 ng/dL INTERFACE SYSTEM 02/25/2005 4:3 0 AM WATER SAFETY INSTRUCTOR us Alcon Valadez MD CHEMISTRY ORDERABLES Final Res ult Performing Organization Address [facility] Phone Number INTERFACE SYSTEM Refer to clinic/hospital department * C-REACTIVE PROTEIN (02/25/2005 4:30 AM WATER SAFETY INSTRUCTOR) CRP 0.6 0.0 - 0.8 mg/dL INTERFACE SYSTEM 02/25/2005 4:30 AM WATER SAFETY INSTRUCTOR us Alcon Valadez MD CHEMISTRY ORDERABLES Final Res ult Performing Organization Address [facility] Phone Number INTERFACE SYSTEM Refer to clinic/hospital department * BASIC METABOLIC PANEL (02/25/2005 4:30 AM WATER SAFETY INSTRUCTOR) GLUCOSE 89 65 - 109 mg/dL INTERFACE [...] 30 mmol/L INTERFACE SYSTEM 02/25/2005 4:30 AM WATER SAFETY INSTRUCTOR Alcon Valadez MD CHEMISTRY ORDERABLES Final Res ult Performing Organization Address [facility] Phone Number INTERFACE SYSTEM Refer to clinic/hospital department * (ABNORMAL) LIPASE (02/24/2005 4:35 AM WATER SAFETY INSTRUCTOR) LIPASE 90(H) 13 - 60 U/L INTERFAC E SYSTEM 02/24/2005 4:35 AM WATER SAFETY INSTRUCTOR us Nora Sivaprasad CHEMISTRY ORDERABLES Final Resu lt Performing Organization Address [facility] Phone Number INTERFACE SYSTEM Refer to clinic/hospital department * (ABNORMAL) AMYLASE (02/24/2005 4:35 AM WATER SAFETY INSTRUCTOR) AMYLASE 118(H) 28 - 100 U/L INTERFACE SYSTEM 02/24/2005 4:35 AM WATER SAFETY INSTRUCTOR us Nora Sivaprasad CHEMISTRY ORDERABLES Final Resu lt Performing Organization Address [facility] Phone Number INTERFACE SYSTEM Refer to clinic/hospital department * (ABNORMAL) TSH (02/24/2005 4:35 AM WATER SAFETY INSTRUCTOR) TSH 4.33(H) 0.27 - 4.20 uU/mL INTERFACE SYSTEM 02/24/2005 4:35 AM WATER SAFETY INSTRUCTOR us Nora Sivaprasad CHEMISTRY ORDERABLES Final Resu lt Performing Organization Address [facility] Phone Number INTERFACE SYSTEM Refer to clinic/hospital department * LIPID PANEL (02/24/2005 4:35 AM WATER SAFETY INSTRUCTOR) LIPID PANEL COMMENT See below INTERFACE SYSTEM [...] section for risk classifications. 02/24/2005 4:35 AM WATER SAFETY INSTRUCTOR [employer] CHEMISTRY ORDERABLES Final Resu lt Performing Organization Address [facility]/ZIP Co de Phone Number INTERFACE SYSTEM Refer to clinic/hospital department * BASIC METABOLIC PANEL (02/24/2005 4:35 AM WATER SAFETY INSTRUCTOR) GLUCOSE 100 65 - 109 mg/dL INTERFACE [...] 30 mmol/L INTERFACE SYSTEM 02/24/2005 4:35 AM WATER SAFETY INSTRUCTOR Nora [employer] CHEMISTRY ORDERABLES Final Resu lt Performing Organization Address [facility]/ZIP Co de Phone Number INTERFACE SYSTEM Refer to clinic/hospital department * TROPONIN (W/REFLEX CKMB/CK) (02/24/2005 4:15 AM WATER SAFETY INSTRUCTOR) TROPONIN T <0.01 <=0.03 ng/mL INTERFACE SYSTEM TROPONIN T INTERP Negative INTERFACE SYSTEM 02/24/2005 4:15 AM WATER SAFETY INSTRUCTOR [facility] Sivaprasad CHEMISTRY ORDERABLES Final Resu lt Performing Organization Address [facility] Phone Number INTERFACE SYSTEM Refer to clinic/hospital department * TROPONIN (W/REFLEX CKMB/CK) (02/23/2005 10:15 PM WATER SAFETY INSTRUCTOR) TROPONIN T <0.01 <=0.03 ng/mL INTERFACE SYSTEM TROPONIN T INTERP Negative INTERFACE SYSTEM 02/23/2005 10:1 5 PM WATER SAFETY INSTRUCTOR [facility] [employer]aprasad CHEMISTRY ORDERABLES Final Resu lt Performing Organization Address [facility] Phone Number INTERFACE SYSTEM Refer to clinic/hospital department * (ABNORMAL) URINALYSIS (02/23/2005 8:31 PM WATER SAFETY INSTRUCTOR) COLOR UA Yellow INTERFACE SYSTEM CLARITY UA [...] 2-5 /HPF INTERFACE SYSTEM 02/23/2005 8:31 PM WATER SAFETY INSTRUCTOR [facility] Sivaprasad URINE ORDERABLES Final Result Performing Organization Address [facility] Phone Number INTERFACE SYSTEM Refer to clinic/hospital department * TROPONIN (W/REFLEX CKMB/CK) (02/23/2005 1:28 PM WATER SAFETY INSTRUCTOR) TROPONIN T <0.01 <=0.03 ng/mL INTERFACE SYSTEM TROPONIN T INTERP Negative INTERFACE SYSTEM 02/23/2005 1:28 PM WATER SAFETY INSTRUCTOR us Erika P Er CHEMISTRY ORDERABLES Final Resul t Performing Organization Address [facility] de Phone Number INTERFACE SYSTEM Refer to clinic/hospital department * CBC WITH DIFFERENTIAL (02/23/2005 12:46 PM WATER SAFETY INSTRUCTOR) NEUTROPHILS 70 45 - 70 % INTERFAC [...] K/uL INTERFACE SYSTEM 02/23/2005 12:4 6 PM WATER SAFETY INSTRUCTOR Jasbir Sol MD HEMATOLOGY ORDERABLES Final Re sult Performing Organization Address [facility] Phone Number INTERFACE SYSTEM Refer to clinic/hospital department * (ABNORMAL) CBC WITH DIFFERENTIAL (02/23/2005 12:46 PM WATER SAFETY INSTRUCTOR) WBC 9.3 4.0 - 9.8 K/uL INTERFACE [...] fL INTERFACE SYSTEM 02/23/2005 12:4 6 PM WATER SAFETY INSTRUCTOR Jasbir Sol MD HEMATOLOGY ORDERABLES Final Re sult Performing Organization Address [facility] de Phone Number INTERFACE SYSTEM Refer to clinic/hospital department * (ABNORMAL) LIPASE (02/23/2005 12:46 PM WATER SAFETY INSTRUCTOR) LIPASE 91(H) 13 - 60 U/L INTERFAC E SYSTEM 02/23/2005 12:4 6 PM WATER SAFETY INSTRUCTOR Jasbir Sol MD CHEMISTRY ORDERABLES Final Res ult Performing Organization Address [facility] Phone Number INTERFACE SYSTEM Refer to clinic/hospital department * (ABNORMAL) AMYLASE (02/23/2005 12:46 PM WATER SAFETY INSTRUCTOR) AMYLASE 134(H) 28 - 100 U/L INTERFACE SYSTEM 02/23/2005 12:4 6 PM WATER SAFETY INSTRUCTOR Jasbir Sol MD CHEMISTRY ORDERABLES Final Res ult Performing Organization Address [facility] Phone Number INTERFACE SYSTEM Refer to clinic/hospital department * (ABNORMAL) COMPREHENSIVE METABOLIC PANEL (02/23/2005 12:46 PM WATER SAFETY INSTRUCTOR) GLUCOSE 115(H) 65 - 109 mg/dL INTERFACE [...] mmol/L INTERFACE SYSTEM 02/23/2005 12:4 6 PM WATER SAFETY INSTRUCTOR us Jasbir Sol MD CHEMISTRY ORDERABLES Final Res ult INTERFACE SYSTEM Refer to clinic/hospital department documented in this encounter Visit Diagnoses Diagnosis Chest pain, unspecified- Primary documented in this encounter Care Teams Blower Operator Relationship Specialty Start Date End Date Abrahan Mcgee MD [address] [place] [address] PCP - General Family Practice 04/03/24 documented as of this encounter
== END 2024-08-08 10:12 | disposition home or self-care (01) ==
PROVIDERS: PCP Family Medicine; Visit Provider Internal Medicine Hematology & Oncology
DX: Z12.31 Encounter for screening mammogram for malignant neoplasm of breast (principal)
CPT/HCPCS: 77063; 77067

== ENCOUNTER 2024-09-26 13:23 | Outpatient (CLI) | payer MEDICARE, SELFPAY ==
--- OUTSIDE RECORDS SUMMARY | 2024-09-26 13:27 | XMS_ITS | Encounter Summary ---
Author Organization [facility] Address [address] [place] [address] Care Team Providers Care Search Consultant Name Role Phone Krishna Medina MD Primary Care Provider [phone] Reason for Visit * Diagnostic Imaging (Routine) - Closed Specialty Diagnoses / Procedures Referred By Contac t Referred To Contact Procedures Breast Imaging Screening Outside Reference Aft, Sweta Gleason MD PhD [address] [place] [address] Phone: tel: fax: Referral ID Status Reason Start Date Expiration Date Visits Re quested Visits Authorized [id number] Closed 01/19/2022 02/18/2023 1 1 Encounter Details Date Type Department Care Team (Late st Contact Info) Description 07/23/2017 Hospital Encounter [facility] [address] [place], [place] [id number] Social History Tobacco Use Types Packs/Day Years [...] on file Legal 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:42 PM CONFIGURATION ENGINEER Gender Identity Not on file Sexual [...] CDT) Impressions [facility] - 01/19/2022 10:55 AM CONFIGURATION ENGINEER These images are for Reference purposes only and have not been reviewed by [facility]. There will be no report generated by a [facility] Radiologist. Narrative [facility] - 01/19/2022 10:55 AM CONFIGURATION ENGINEER EXAMINATION: Images For Reference Purposes Only us Sweta Conteh MD PhD IMG MAMMO PROCEDURES Final Result [facility] documented in this encounter Visit Diagnoses Not on filedocumented in this encounter Care Teams Search Consultant Relationship Specialty Start Date End Date Krishna Medina MD [address] [address] PCP - General 10/15/16 03/16/19 documented as of this encounter
--- OUTSIDE RECORDS SUMMARY | 2024-09-26 13:27 | XMS_ITS | Encounter Summary ---
Author Organization [facility] Address [address] [facility] [address] Attn: Epic Prelude ADT FRIDA SPARROW [address] Care Team Providers Care Clay Dry Press Helper Name Role Phone Abrahan Mcgee MD [...] on file Legal Sex Female 3:33 AM KNIFE SETTER Gender Identity Not on file Sexual Orientation Not on file documented as of this encounter Plan of Treatment Upcoming Encounters Date Type Department Care Team (Late st Contact Info) Description 10/02/2024 11:45 AM CDT Office Visit [facility] Oncology and Hematology - [place] [address] [place] [address] [address] [place] [address] Prince Mir MD [address] [place] [address] [address] [place] [address] documented as of this encounter Visit Diagnoses Not on filedocumented in this encounter Care Teams Clay Dry Press Helper Relationship Specialty Start Date End Date Abrahan Mcgee MD [address] [place] [address] PCP - General Family Practice 04/03/24 documented as of this encounter
--- OUTSIDE RECORDS SUMMARY | 2024-09-26 13:27 | XMS_ITS | Encounter Summary ---
Author Organization [facility] Address [address] [place] [address] Care Team Providers Care Well Puller Name Role Phone Abrahan Mcgee MD Primary Care Provider [phone] Encounter Details Date Type Department Care Team (Latest Contact Info) Description 11/26/2000 Outpatient Historical HIS [facility] Andre Vidal MD NO ADDRESS ON FILE Essential hypertension, benign (Primary Dx) Social History Tobacco Use Types Packs/Day Years Used Date Smoking Tobacco: Never Assessed Comments Unknown Sex and Gender Information Value Date Recorded Sex Assigned at Not on file Legal Sex Female 3:33 AM CORPORATE BOND TRADER Gender Identity Not on file Sexual Orientation Not on file documented as of this encounter Plan of Treatment Upcoming Encounters Date Type Department Care Team (Late st Contact Info) Description 10/02/2024 11:45 AM CDT Office Visit [facility] Oncology and Hematology - [place] [address] [place] [address] [address] [place] [address] [place] [address] [place] [address] [address] [place] [address] documented as of this encounter Visit Diagnoses Diagnosis Essential hypertension, benign- Primary documented in this encounter Care Teams Well Puller Relationship Specialty Start Date End Date Abrahan Mcgee MD [address] [place] [address] PCP - General Family Practice 04/03/24 documented as of this encounter
--- OUTSIDE RECORDS SUMMARY | 2024-09-26 13:27 | XMS_ITS | Encounter Summary ---
Author Organization [facility] Address [address] [place] [address] Care Team Providers Care Submarine Element Coordinator Name Role Phone Abrahan Mcgee MD Primary Care Provider [phone] Encounter Details Date Type Department Care Team (Late st Contact Info) Description 08/03/2001 Outpatient Historical HIS [facility] Berta Monae MD [address] [place] [address] Social History Tobacco Use Types Packs/Day Years Used Date Smoking Tobacco: Never Assessed Comments Unknown Sex and Gender Information Value Date Recorded Sex Assigned at Not on file Legal Sex Female 3:33 AM MOTOR TESTER Gender Identity Not on file Sexual Orientation Not on file documented as of this encounter Plan of Treatment Upcoming Encounters Date Type Department Care Team (Late st Contact Info) Description 10/02/2024 11:45 AM CDT Office Visit [facility] Oncology and Hematology - [place] [address] [place] [address] [address] [place] [address] Prince Mir MD [address] [facility] [address] [place] [address] documented as of this encounter Visit Diagnoses Not on filedocumented in this encounter Care Teams Submarine Element Coordinator Relationship Specialty Start Date End Date Abrahan Mcgee MD [address] [place] [address] PCP - General Family Practice 04/03/24 documented as of this encounter
--- OUTSIDE RECORDS SUMMARY | 2024-09-26 13:27 | XMS_ITS | Encounter Summary ---
Author Organization [facility] Address [address] [place] [address] Care Team Providers Care Violin Teacher Name Role Phone Abrahan Mcgee MD Primary Care Provider [phone] Encounter Details Date Type Department Care Team (Latest Contact Info) Description 03/22/2001 Outpatient Historical HIS [facility] Andre Vidal MD NO ADDRESS ON FILE BENIGN HYPERTENSION (Primary Dx) Social History Tobacco Use Types Packs/Day Years Used Date Smoking Tobacco: Never Assessed Comments Unknown Sex and Gender Information Value Date Recorded Sex Assigned at Not on file Legal Sex Female 3:33 AM SCAFFOLD BUILDER Gender Identity Not on file Sexual Orientation Not on file documented as of this encounter Plan of Treatment Upcoming Encounters Date Type Department Care Team (Late st Contact Info) Description 10/02/2024 11:45 AM CDT Office Visit [facility] Oncology and Hematology - [place] [address] [place] [address] [address] [place] [address] [place] [address] [place] [address] [address] [place] [address] documented as of this encounter Visit Diagnoses Diagnosis Essential hypertension, benign- Primary documented in this encounter Care Teams Violin Teacher Relationship Specialty Start Date End Date Abrahan Mcgee MD [address] [place] [address] PCP - General Family Practice 04/03/24 documented as of this encounter
--- OUTSIDE RECORDS SUMMARY | 2024-09-26 13:27 | XMS_ITS | Encounter Summary ---
Author Organization [facility] Address [address] [place] [address] Care Team Providers Care Net Software Architect Name Role Phone Abrahan Mcgee MD Primary Care Provider [phone] Encounter Details Date Type Department Care Team (Late st Contact Info) Description 08/15/2002 Outpatient Historical HIS [facility] Andre Ernst MD NO ADDRESS ON FILE Social History Tobacco Use Types Packs/Day Years Used Date Smoking Tobacco: Never Assessed Comments Unknown Sex and Gender Information Value Date Recorded Sex Assigned at Not on file Legal Sex Female 3:33 AM CLIENT EXPERIENCE ADMINISTRATOR Gender Identity Not on file Sexual Orientation Not on file documented as of this encounter Plan of Treatment Upcoming Encounters Date Type Department Care Team (Late st Contact Info) Description 10/02/2024 11:45 AM CDT Office Visit [facility] Oncology and Hematology - [place] [address] [place] [address] Dr [address] [place] [address] [place] [address] [place] [address] [address] [place] [address] documented as of this encounter Visit Diagnoses Not on filedocumented in this encounter Care Teams Net Software Architect Relationship Specialty Start Date End Date Abrahan Mcgee MD [address] [place] [address] PCP - General Family Practice 04/03/24 documented as of this encounter
--- OUTSIDE RECORDS SUMMARY | 2024-09-26 13:27 | XMS_ITS | Encounter Summary ---
Author Organization [facility] Address [address] [facility] Attn: Epic Prelude ADT FRIDA SPARROW [address] Care Team Providers Care Rad Tech Name Role Phone Abrahan Mcgee MD [...] file Legal Sex Female 3:33 AM SUPERVISOR BOARDING Gender Identity Not on file Sexual Orientation Not on file documented as of this encounter Plan of Treatment Upcoming Encounters Date Type Department Care Team (Late st Contact Info) Description 10/02/2024 11:45 AM CDT Office Visit [facility] Oncology and Hematology - [place] [address] [place] [address] [address] [place] [address] Prince Mir MD [address] [place] [address] [address] [place] [address] documented as of this encounter Visit Diagnoses Not on filedocumented in this encounter Care Teams Rad Tech Relationship Specialty Start Date End Date Abrahan Mcgee MD [address] [place] [address] PCP - General Family Practice 04/03/24 documented as of this encounter
--- OUTSIDE RECORDS SUMMARY | 2024-09-26 13:27 | XMS_ITS | Encounter Summary ---
Author Organization [facility] Address [address] [place] [address] Phone Care Team Providers Care Highway Research Engineer Name Role Phone Krishna Medina MD Unavailable [phone] Luigi Nicole Primary Care Provider Lina Yates NP Unavailable [phone] Yogesh Corbett DO Primary Care Provider [phone] Abrahan Mcgee MD Primary Care Provider [phone] Encounter Details Date Type Department Care Team (Late st Contact Info) Description 02/05/2022 Telephone [facility] Surgery [facility] Advanced [facility] 5th [place] [address] [place] [address] Akila Toussaint Social History Tobacco [...] on file Legal 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:42 PM BREAD JOCKEY Gender Identity Not on file Sexual Orientation Not on file documented as of this encounter Plan of Treatment Not on file documented as of this encounter Visit Diagnoses Not on filedocumented in this encounter Care Teams Highway Research Engineer Relationship Specialty Start Date End Date Luigi Nicole PA [address] [place] [address] [address] [place] [address] PCP - General Physician Major Sales Associate 04/09/21 12/01/23 Yogesh Corbett DO [address] [place] [address] PCP - General Internal Medicine 12/02/23 06/05/24 Abrahan Mcgee MD [address] [place] [address] PCP - General Family Medicine 06/06/24 Krishna Medina MD [address] [address] 03/17/19 Lina Yates NP [address] [place] [address] [address] [place] [address] Nurse Practitioner 11/12/22 documented as of this encounter
--- OUTSIDE RECORDS SUMMARY | 2024-09-26 13:27 | XMS_ITS | Encounter Summary ---
Author Organization [facility] Address [address] [facility] Attn: Epic Prelude ADT [place] [address] Care Team Providers Care Grave Cleaner Name Role Phone Abrahan Mcgee MD Primary Care Provider [phone] Encounter Details Date Type Department Care Team (Late st Contact Info) Description 09/11/1988 Outpatient Historical Andre Ernst MD NO ADDRESS ON FILE Social History Tobacco Use Types Packs/Day Years Used Date Smoking Tobacco: Never Assessed Comments Unknown Sex and Gender Information Value Date Recorded Sex Assigned at Not on file Legal Sex Female 3:33 AM MACHINE TOOL BUILDER Gender Identity Not on file Sexual Orientation Not on file documented as of this encounter Plan of Treatment Upcoming Encounters Date Type Department Care Team (Late st Contact Info) Description 10/02/2024 11:45 AM CDT Office Visit [facility] Oncology and Hematology - [place] [address] [place] [address] Dr [address] [place] [address] Prince Mir MD [address] [place] [address] [address] [place] [address] documented as of this encounter Visit Diagnoses Not on filedocumented in this encounter Care Teams Grave Cleaner Relationship Specialty Start Date End Date Abrahan Mcgee MD [address] [place] [address] PCP - General Family Practice 04/03/24 documented as of this encounter
--- OUTSIDE RECORDS SUMMARY | 2024-09-26 13:27 | XMS_ITS | Encounter Summary ---
Author Organization [facility] Address [address] [facility] Attn: Epic Prelude ADT [place] [address] Care Team Providers Care Retail Shift Supervisor Name Role Phone Abrahan Mcgee MD Primary Care Provider [phone] Encounter Details Date Type Department Care Team (Late st Contact Info) Description 08/03/1994 Outpatient Historical Andre Ernst MD NO ADDRESS ON FILE Social History Tobacco Use Types Packs/Day Years Used Date Smoking Tobacco: Never Assessed Comments Unknown Sex and Gender Information Value Date Recorded Sex Assigned at Not on file Legal Sex Female 3:33 AM CABINET WORKER Gender Identity Not on file Sexual Orientation Not on file documented as of this encounter Plan of Treatment Upcoming Encounters Date Type Department Care Team (Late st Contact Info) Description 10/02/2024 11:45 AM CDT Office Visit [facility] Oncology and Hematology - [place] [address] [place] [address] Dr [address] [place] [address] Prince Mir MD [address] [place] [address] [address] [place] [address] documented as of this encounter Visit Diagnoses Not on filedocumented in this encounter Care Teams Retail Shift Supervisor Relationship Specialty Start Date End Date Abrahan Mcgee MD [address] [place] [address] PCP - General Family Practice 04/03/24 documented as of this encounter
--- OUTSIDE RECORDS SUMMARY | 2024-09-26 13:27 | XMS_ITS | Referral Summary ---
Author Organization [facility] Address [address] [facility] [place] [address] Care Team Providers Care Schedule Maker Name Role Phone Krishna Medina MD Unavailable [phone] Lina Yates NP Unavailable [phone] Abrahan Mcgee MD Primary Care Provider Encounters Date Type Department Care Team Description 09/15/2024 Telephone [facility] Ophthalmology [address] [place] [address] Joshua Chan, OD Same day 09/15/2024 2:45 PM CDT Office Visit [facility] LASIK Surgery [place] [facility] [address] [facility] [address], [address] [place] [address] Joshua Chan, OD Foreign body of left conjunctiva, initial encounter (Primary Dx); Intermediate stage nonexudative age-related macular degeneration of both eyes from Last 3 Months Allergies Active Allergy [...] Active Problems Problem Noted Date Diagnosed Date Foreign body of left conjunctiva 09/15/2024 Assessment & Plan (09/15/2024 4:26 PM CDT): Fibers in conjunctiva and lids Washed out with drops and cleaned lids Removed mucus from conj sac Continue art tears 2-4 times a day Clean lids with shower or sink to remove fibers Return for scheduled appt Mallet finger of left hand 06/11/2022 Left hand pain 06/11/2022 Malignant neoplasm of female breast 02/08/2022 Corneal abrasion, left, initial encounter 2021 Assessment & Plan (02/02/2022 4:10 PM LEGAL ENTITY CONTROLLER): Well healed. Removed BCL today without complications. [...] 04/28/2019 Assessment & Plan (04/28/2019 12:28 PM LEGAL ENTITY CONTROLLER): Monitor. Discussed signs and symptoms of Retinal tears or detachments. Pt understands to call immediately if noted. Subjective vision disturbance 04/28/2019 Assessment & Plan (04/28/2019 12:29 PM LEGAL ENTITY CONTROLLER): Seeing pink dots No hemorrhages or retinal tears on DFE today ou. Monitor. If no improvement (NI) 1 month suggest re-eval. Intermediate stage nonexudat alysha age-related macular degeneration of both eyes 02/11/2018 Assessment & Plan (09/15/2024 4:26 PM CDT): Return for scheduled appt Assessment & Plan (06/06/2024 4:45 PM CDT): [...] changes. Assessment & Plan (04/28/2019 12:27 PM LEGAL ENTITY CONTROLLER): Monitor closely Retinal hole of left eye [...] on file Legal 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:42 PM LEGAL ENTITY CONTROLLER Gender Identity Not on file Sexual Orientation [...] CDT Plan of Treatment Not on file Insurance [facility] Address: [facility] [id number] [place] [id number] T MEDICARE [facility] MEDICARE Advance Directives For more information, please contact: [phone] * Full Code (Latest Code Status on File) Date Activated Date Inactivated Comments 11/10/2021 10:25 AM 11/10/2021 3:44 PM * Full Code Date Activated Date Inactivated Comments 09/06/2019 9:17 AM 09/06/2019 3:17 PM * Full Code Date Activated Date Inactivated Comments 07/11/2018 9:22 AM 07/11/2018 4:10 PM Care Teams Schedule Maker Relationship Specialty Start Date End Date Abrahan Mcgee MD [address] [place] [address] PCP - General Family Medicine 06/06/24 Krishna Medina MD [address] [address] 03/17/19 Lina Yates NP [address] [address] Nurse Practitioner 11/12/22
--- OUTSIDE RECORDS SUMMARY | 2024-09-26 13:27 | XMS_ITS | Encounter Summary ---
Author Organization [facility] Address [address] [place] [address] Care Team Providers Care Horse Racing Manager Name Role Phone Abrahan Mcgee MD Primary Care Provider [phone] Encounter Details Date Type Department Care Team (Late st Contact Info) Description 11/19/2003 Outpatient Historical HIS [facility] Andre Ernst MD NO ADDRESS ON FILE Social History Tobacco Use Types Packs/Day Years Used Date Smoking Tobacco: Never Assessed Comments Unknown Sex and Gender Information Value Date Recorded Sex Assigned at Not on file Legal Sex Female 3:33 AM MANAGER CORPORATE STRATEGY Gender Identity Not on file Sexual Orientation Not on file documented as of this encounter Plan of Treatment Upcoming Encounters Date Type Department Care Team (Late st Contact Info) Description 10/02/2024 11:45 AM CDT Office Visit [facility] Oncology and Hematology - [place] [address] [place] [address] Dr [address] [place] [address] [place] [address] [place] [address] [address] [place] [address] documented as of this encounter Visit Diagnoses Not on filedocumented in this encounter Care Teams Horse Racing Manager Relationship Specialty Start Date End Date Abrahan Mcgee MD [address] [place] [address] PCP - General Family Practice 04/03/24 documented as of this encounter
--- OUTSIDE RECORDS SUMMARY | 2024-09-26 13:27 | XMS_ITS | Encounter Summary ---
Author Organization [facility] Address [address] [place] [address] Care Team Providers Care Medical Office Asst Name Role Phone Abrahan Mcgee MD Primary Care Provider [phone] Encounter Details Date Type Department Care Team (Latest Contact Info) Description 03/16/2002 Outpatient Historical HIS [facility] Andre Vidal MD NO ADDRESS ON FILE BENIGN HYPERTENSION (Primary Dx) Social History Tobacco Use Types Packs/Day Years Used Date Smoking Tobacco: Never Assessed Comments Unknown Sex and Gender Information Value Date Recorded Sex Assigned at Not on file Legal Sex Female 3:33 AM VIDEO PRESENTATION OPERATOR Gender Identity Not on file Sexual Orientation Not on file documented as of this encounter Plan of Treatment Upcoming Encounters Date Type Department Care Team (Late st Contact Info) Description 10/02/2024 11:45 AM CDT Office Visit [facility] Oncology and Hematology - [place] [address] [place] [address] Dr [address] [place] [address] [place] [address] [place] [address] [address] [place] [address] documented as of this encounter Visit Diagnoses Diagnosis Essential hypertension, benign- Primary documented in this encounter Care Teams Medical Office Asst Relationship Specialty Start Date End Date Abrahan Mcgee MD [address] [place] [address] PCP - General Family Practice 04/03/24 documented as of this encounter
--- OUTSIDE RECORDS SUMMARY | 2024-09-26 13:27 | XMS_ITS | Clinical Summary ---
Author Organization [employer] [facility] Address [address] [place] [address] Phone Care Team Providers Care Certified Phlebotomy Technician Name Role Phone Abrahan Mcgee MD Primary Care Provider [phone] Allergies Active Allergy Reactions Criticality Noted Date [...] 9 Active fluticasone propionate (FLONASE) 50 mcg/spray [place], Suspension nasal inhaler Administer 2 Sprays in [...] Encounters Date Type Department Care Team Description 09/13/2024 External Device Data ST[facility] ABSTRACTION Provider, Abstract 09/13/2024 External Device Data [facility] ABSTRACTION Provider, Abstract 09/13/2024 External Device Data [facility] ABSTRACTION Provider, Abstract 09/12/2024 External Device Data [facility] ABSTRACTION Provider, Abstract 08/16/2024 External Device Data [facility] ABSTRACTION Provider, Abstract 08/15/2024 External Device Data [facility] ABSTRACTION Provider, Abstract 08/09/2024 Orders Only [facility] Oncology and Hematology - [place] [address] [place] [address] [phone] Prince Mir MD 07/20/2024 External Device Data ST[facility] ABSTRACTION Provider, [...] on file Legal Sex Female 3:33 AM TRAVELING PLANT OPERATOR Gender Identity Not on file Sexual Orientation Not on file Last Filed Vital Signs Vital Sign Reading Time Taken Comments Blood Pressure 132/71 04/03/2024 2:30 PM TRAVELING PLANT OPERATOR Pulse 69 04/03/2024 2:30 PM TRAVELING PLANT OPERATOR Temperature 36.1 C (97 F) 04/03/2024 2:30 PM TRAVELING PLANT OPERATOR Respiratory Rate 14 04/03/2024 2:30 PM TRAVELING PLANT OPERATOR Oxygen Saturation 96% 04/03/2024 2:30 PM TRAVELING PLANT OPERATOR Inhaled Oxygen Concentration - - Weight 53.1 kg (117 lb) 04/03/2024 2:30 PM TRAVELING PLANT OPERATOR Height 149.9 cm (4' 11) 12/09/2022 2:04 PM CDT Body Mass Index 23.63 12/09/2022 2:04 PM CDT Plan of Treatment Upcoming Encounters Date Type Department Care Team (Late st Contact Info) Description 10/02/2024 11:45 AM CDT Office Visit [facility] Oncology and Hematology [facility] [address] [facility] [address] [place] [address] Prince Mir MD [address] [facility] [address] [place] [address] Health Maintenance Due Date Last Done Comments DTAP/TDAP/TD VACCINES (1 - Tdap) 10/12/1954 ZOSTER VACCINE (1 of 2) 10/12/1985 OSTEOPOROSIS SCREENING 10/12/2000 RSV VACCINE (60+ or ) (1 - 1-dose 75+ series) 10/12/2010 PNEUMOCOCCAL VACCINE 50+ YEA RS (2 of 2 - PCV20 or PCV21) 12/17/2019 12/16/2018 INFLUENZA VACCINE (#1) 2024 01/20/2019 Procedures Procedure Name Priority Date/Time Associated Diagnosis Comments MAMMO SCREENING BILAT Routine 08/08/2024 9:58 AM CDT from Last 3 Months Results * MAMMO SCREENING BILAT (08/08/2024 9:58 AM CDT) Anatomical Region Laterality Modality Breast Bilateral Mammography Prince Mir MD MAMMO ORDERABLES Final Result from Last 3 Months Insurance [facility] AET[facility] O MCR Care Teams Certified Phlebotomy Technician Relationship Specialty Start Date End Date Abrahan Mcgee MD [address] [place] [address] PCP - General Family Practice 04/03/24
--- OUTSIDE RECORDS SUMMARY | 2024-09-26 13:27 | XMS_ITS | Encounter Summary ---
Author Organization [facility] Address [address] [place] [address] Care Team Providers Care Jewelry Casting Model Maker Name Role Phone Abrahan Mcgee MD Primary Care Provider [phone] Encounter Details Date Type Department Care Team (Late st Contact Info) Description 08/13/2021 Lab Requisition [facility] [address] [place] [address] Jose G Llamas MD [address] [place] [address] Social History Tobacco Use Types Packs/Day Years Used Date Smoking Tobacco: Never Assessed Comments Unknown Sex and Gender Information Value Date Recorded Sex Assigned at Not on file Legal Sex Female 6:23 PM QUALITY ASSURANCE ASSESSOR Gender Identity Not on file Sexual Orientation Not on file documented as of this encounter Plan of Treatment Not on file documented as of this encounter Procedures Procedure Name Priority Date/Time Associated Diagnosis Comments DERMATOPATHOLOGY Routine 08/12/2021 12:0 0 AM CDT documented in this encounter Results * DERMATOPATHOLOGY (08/12/2021 12:00 AM CDT) Case Report Dermatopathology Report Case: [id number] Authorizing Provider: Jose G Llamas MD Collected: 08/12/2021 12:00 AM Ordering Location: [facility] Received: 08/13/2021 10:45 [...] specimen consists of a shave biopsy measuring [id number]. Jar 0. 2 10:59 AM CDT DERMATOPATHOLOGY [...] characteristic determined by the Dermatopathology Laboratory at [facility], directed by Dr. Troy Mckeon. These tests need not be, and therefore are not, approved by the [place] Food and Drug Administration. The tests are used for clinical purposes. Billing Codes Specimen Charges Stain Charges 94453 1 2 10:59 AM CDT DERMATOPATHOLOGY LABORATORY Embedded Images 2 10:59 AM CDT DERMATOPATHOLOGY LABORATORY Pathology/Cytolog y TISSUE SPECIMEN FROM SKIN / Unknown 08/12/2021 08/13/2021 10:45 AM CDT us Jose G Llamas MD LAB - PATHOLOGY/CYTOLOGY ORD ERABLES Final Result DERMATOPATHOLOGY LABORATORY [facility] - Department of Dermatology [address], [address] [phone] documented in this encounter Visit Diagnoses Not on filedocumented in this encounter Care Teams Jewelry Casting Model Maker Relationship Specialty Start Date End Date Abrahan Mcgee MD [address] [place] [address] PCP - General 07/23/09 documented as of this encounter
--- OUTSIDE RECORDS SUMMARY | 2024-09-26 13:27 | XMS_ITS | Encounter Summary ---
Author Organization [facility] Address [address] [place] [address] Care Team Providers Care Textile Engineer Name Role Phone Abrahan Mcgee MD Primary Care Provider [phone] Encounter Details Date Type Department Care Team (Late st Contact Info) Description 11/04/2001 Outpatient Historical HIS [facility] Andre Ernst MD NO ADDRESS ON FILE Social History Tobacco Use Types Packs/Day Years Used Date Smoking Tobacco: Never Assessed Comments Unknown Sex and Gender Information Value Date Recorded Sex Assigned at Not on file Legal Sex Female 3:33 AM PROGRAM MANUFACTURING LEADER Gender Identity Not on file Sexual Orientation Not on file documented as of this encounter Plan of Treatment Upcoming Encounters Date Type Department Care Team (Late st Contact Info) Description 10/02/2024 11:45 AM CDT Office Visit [facility] Oncology and Hematology - [place] [address] [place] [address] Dr [address] [place] [address] [place] [address] [place] [address] [address] [place] [address] documented as of this encounter Visit Diagnoses Not on filedocumented in this encounter Care Teams Textile Engineer Relationship Specialty Start Date End Date Abrahan Mcgee MD [address] [place] [address] PCP - General Family Practice 04/03/24 documented as of this encounter
--- OUTSIDE RECORDS SUMMARY | 2024-09-26 13:27 | XMS_ITS | Encounter Summary ---
Author Organization [facility] Address [address] [facility] Attn: Epic Prelude ADT [place] [address] Care Team Providers Care Fountain Roller Assembler Name Role Phone Abrahan Mcgee MD [...] file Legal Sex Female 3:[address]PRETER Gender Identity Not on file Sexual Orientation Not on file documented as of this encounter Plan of Treatment Upcoming Encounters Date Type Department Care Team (Late st Contact Info) Description 10/02/2024 11:45 AM CDT Office Visit [facility] Oncology and Hematology - [place] [address] [place] [address] Dr [address] [place] [address] Prince Mir MD [address] [place] [address] [address] [place] [address] documented as of this encounter Visit Diagnoses Not on filedocumented in this encounter Care Teams Fountain Roller Assembler Relationship Specialty Start Date End Date Abrahan Mcgee MD [address] [place] [address] PCP - General Family Practice 04/03/24 documented as of this encounter
--- OUTSIDE RECORDS SUMMARY | 2024-09-26 13:27 | XMS_ITS | Encounter Summary ---
Author Organization [facility] Address [address] [place] [address] Care Team Providers Care Instrument And Control Service Person Name Role Phone Abrahan Mcgee MD Primary Care Provider [phone] Encounter Details Date Type Department Care Team (Late st Contact Info) Description 04/12/2002 Outpatient Historical HIS [facility] Andre Ernst MD NO ADDRESS ON FILE DIAPHRAGMATIC HERNIA (Primary Dx) Social History Tobacco Use Types Packs/Day Years Used Date Smoking Tobacco: Never Assessed Comments Unknown Sex and Gender Information Value Date Recorded Sex Assigned at Not on file Legal Sex Female 3:33 AM BLACK AND WHITE PRINTER OPERATOR Gender Identity Not on file Sexual Orientation Not on file documented as of this encounter Plan of Treatment Upcoming Encounters Date Type Department Care Team (Late st Contact Info) Description 10/02/2024 11:45 AM CDT Office Visit [facility] Oncology and Hematology - [place] [address] [place] [address] Dr [address] [place] [address] [place] [address] [place] [address] [address] [place] [address] documented as of this encounter Visit Diagnoses Diagnosis Diaphragmatic hernia without mention of obstruction or gangrene- Primary documented in this encounter Care Teams Instrument And Control Service Person Relationship Specialty Start Date End Date Abrahan Mcgee MD [address] [place] [address] PCP - General Family Practice 04/03/24 documented as of this encounter
--- OUTSIDE RECORDS SUMMARY | 2024-09-26 13:27 | XMS_ITS | Encounter Summary ---
Author Organization [facility] Address [address] [place] [address] Care Team Providers Care Sonar Subsystem Equipment Operator Name Role Phone Krishna Mednia MD Primary Care Provider [phone] Reason for Visit * Diagnostic Imaging (Routine) - Closed Specialty Diagnoses / Procedures Referred By Contac t Referred To Contact Procedures Breast Imaging Screening Outside Reference Aft, Sweta Gleason MD PhD [address] [place] [address] Phone: tel: fax: Referral ID Status Reason Start Date Expiration Date Visits Re quested Visits Authorized [id number] Closed 01/19/2022 02/18/2023 1 1 Encounter Details Date Type Department Care Team (Late st Contact Info) Description 08/26/2018 Hospital Encounter [facility] [address] [place], [place] [id number] Social History Tobacco Use Types Packs/Day Years [...] on file Legal 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:42 PM WAITSTAFF CAPTAIN Gender Identity Not on file Sexual Orientation [...] CDT) Impressions [facility] - 01/19/2022 11:04 AM WAITSTAFF CAPTAIN These images are for Reference purposes only and have not been reviewed by [facility] Radiology. There will be no report generated by a [facility] Radiologist. Narrative [facility] - 01/19/2022 11:04 AM WAITSTAFF CAPTAIN EXAMINATION: Images For Reference Purposes Only us Sweta Conteh MD PhD IMG MAMMO PROCEDURES Final Result [facility] documented in this encounter Visit Diagnoses Not on filedocumented in this encounter Care Teams Sonar Subsystem Equipment Operator Relationship Specialty Start Date End Date Krishna Medina MD [address] [address] PCP - General 10/15/16 03/16/19 documented as of this encounter
--- OUTSIDE RECORDS SUMMARY | 2024-09-26 13:27 | XMS_ITS | Encounter Summary ---
Author Organization [facility] Healthcare Address [address] [place] [address] Care Team Providers Care Mold Repairer Name Role Phone Krishna Medina MD Primary Care Provider [phone] Krishna Medina MD Unavailable [phone] Reason for Visit * Diagnostic Imaging (Routine) - Closed Specialty Diagnoses / Procedures Referred By Contac t Referred To Contact Procedures Breast Imaging Screening Outside Reference Aft, Sweta Gleason [place] PhD [address] [place] [address] Phone: tel: fax: Referral ID Status Reason Start Date Expiration Date Visits Re quested Visits Authorized [id number] Closed 01/19/2022 02/18/2023 1 1 Encounter Details Date Type Department Care Team (Late st Contact Info) Description 09/25/2019 Hospital Encounter [facility]iology [facility] [address] [place] [id number] Social History Tobacco Use Types Packs/Day Years [...] on file Legal 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:42 PM RELATIONS MGR Gender Identity Not on file Sexual Orientation [...] CDT) Impressions [facility] - 01/19/2022 11:03 AM RELATIONS MGR These images are for Reference purposes only and have not been reviewed by [facility] Radiology. There will be no report generated by a [facility] Radiologist. Narrative [facility] - 01/19/2022 11:03 AM RELATIONS MGR EXAMINATION: Images For Reference Purposes Only us Sweta Conteh MD PhD IMG MAMMO PROCEDURES Final Result [facility] documented in this encounter Visit Diagnoses Not on filedocumented in this encounter Care Teams Mold Repairer Relationship Specialty Start Date End Date Krishna Medina MD [address] [address] PCP - General 03/17/19 04/08/21 Krishna Medina MD [address] [address] 03/17/19 documented as of this encounter
--- OUTSIDE RECORDS SUMMARY | 2024-09-26 13:27 | XMS_ITS | Encounter Summary ---
Author Organization [facility] Address [address] [place] [address] Care Team Providers Care Radio Aerial Installer Name Role Phone Abrahan Mcgee MD Primary Care Provider [phone] Encounter Details Date Type Department Care Team (Late st Contact Info) Description 03/29/2002 Outpatient Historical HIS [facility] DE[facility] Andre Ernst MD NO ADDRESS ON FILE HEADACHE (Primary Dx) Social History Tobacco Use Types Packs/Day Years Used Date Smoking Tobacco: Never Assessed Comments Unknown Sex and Gender Information Value Date Recorded Sex Assigned at Not on file Legal Sex Female 3:33 AM GROUND CREWMAN Gender Identity Not on file Sexual Orientation Not on file documented as of this encounter Plan of Treatment Upcoming Encounters Date Type Department Care Team (Late st Contact Info) Description 10/02/2024 11:45 AM CDT Office Visit [facility] Oncology and Hematology - [place] [address] [place] [address] [address] [place] [address] [place] [address] [place] [address] [address] [place] [address] documented as of this encounter Visit Diagnoses Diagnosis Headache(784.0)- Primary Headache documented in this encounter Care Teams Radio Aerial Installer Relationship Specialty Start Date End Date Abrahan Mcgee MD [address] [place] [address] PCP - General Family Practice 04/03/24 documented as of this encounter
--- OUTSIDE RECORDS SUMMARY | 2024-09-26 13:27 | XMS_ITS | Encounter Summary ---
Author Organization [facility] Address [address] [facility] Attn: Epic Prelude ADT FRIDA SPARROW [address] Care Team Providers Care Preschool Substitute Teacher Name Role Phone Abrahan Mcgee MD [...] on file Legal Sex Female 3:33 AM CONSUMER SALES REPRESENTATIVE Gender Identity Not on file Sexual Orientation Not on file documented as of this encounter Plan of Treatment Upcoming Encounters Date Type Department Care Team (Late st Contact Info) Description 10/02/2024 11:45 AM CDT Office Visit [facility] Oncology and Hematology - [place] [address] [place] [address] [address] [place] [address] Prince Mir MD [address] [place] [address] [address] [place] [address] documented as of this encounter Visit Diagnoses Not on filedocumented in this encounter Care Teams Preschool Substitute Teacher Relationship Specialty Start Date End Date Abrahan Mcgee MD [address] [place] [address] PCP - General Family Practice 04/03/24 documented as of this encounter
--- OUTSIDE RECORDS SUMMARY | 2024-09-26 13:27 | XMS_ITS | Encounter Summary ---
Author Organization [facility] Address [address] [place] [address] Care Team Providers Care Assistant Director Name Role Phone Abrahan Mcgee MD Primary Care Provider [phone] Encounter Details Date Type Department Care Team (Late st Contact Info) Description 10/29/2000 Outpatient Historical HIS [facility] Andre Ernst MD NO ADDRESS ON FILE Social History Tobacco Use Types Packs/Day Years Used Date Smoking Tobacco: Never Assessed Comments Unknown Sex and Gender Information Value Date Recorded Sex Assigned at Not on file Legal Sex Female 3:33 AM CFD ENGINEER Gender Identity Not on file Sexual Orientation Not on file documented as of this encounter Plan of Treatment Upcoming Encounters Date Type Department Care Team (Late st Contact Info) Description 10/02/2024 11:45 AM CDT Office Visit [facility] Oncology and Hematology - [place] [address] [place] [address] [address] [place] [address] [place] [address] [place] [address] [address] [place] [address] documented as of this encounter Visit Diagnoses Not on filedocumented in this encounter Care Teams Assistant Director Relationship Specialty Start Date End Date Abrahan Mcgee MD [address] [place] [address] PCP - General Family Practice 04/03/24 documented as of this encounter
--- OUTSIDE RECORDS SUMMARY | 2024-09-26 13:27 | XMS_ITS | Encounter Summary ---
Author Organization [facility] Address 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 Gender Identity Not on file Sexual Orientation Not on file documented as of this encounter Plan of Treatment Upcoming Encounters Date Type Department Care Team (Late st Contact Info) Description 10/02/2024 11:45 AM CDT Office Visit [facility] Oncology and Hematology - [place] [address] [place] [address] [address] [place] [address] [place] [address] [place] [address] [address] [place] [address] documented as of this encounter Visit Diagnoses Diagnosis Essential hypertension, benign- Primary documented in this encounter Care Teams Experience Specialist Relationship Specialty Start Date End Date Abrahan Mcgee MD [address] [place] [address] PCP - General Family Practice 04/03/24 documented as of this encounter
--- OUTSIDE RECORDS SUMMARY | 2024-09-26 13:27 | XMS_ITS | Encounter Summary ---
Author Organization [facility] Address 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 Gender Identity Not on file Sexual Orientation Not on file documented as of this encounter Plan of Treatment Upcoming Encounters Date Type Department Care Team (Late st Contact Info) Description 10/02/2024 11:45 AM CDT Office Visit [facility] Oncology and Hematology - [place] [address] [place] [address] [address] [place] [address] [place] [address] [place] [address] [address] [place] [address] documented as of this encounter Visit Diagnoses Not on filedocumented in this encounter Care Teams Janitor Relationship Specialty Start Date End Date Abrahan Mcgee MD [address] [place] [address] PCP - General Family Practice 04/03/24 documented as of this encounter
--- OUTSIDE RECORDS SUMMARY | 2024-09-26 13:27 | XMS_ITS | Clinical Summary ---
Author Organization [facility] Address [address] [facility] [place] [address] Care Team Providers Care Job Specification Writer Name Role Phone Abrahan Mcgee MD Primary Care Provider Source Comments [facility],non-[facility] Affiliates and Associated Physician Practices is amultiple site organization consisting of ambulatory clinics and hospital sitesin [place], [place], [place] and [place]. This disclosure is being madepursuant to the Care Everywhere program and may not contain all information available regarding this patient. 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 Gender Identity Not on file Sexual [...] MEDICARE AWV CALENDAR YEAR 2024 INFLUENZA VACCINE (#1) 2024 HEPATITIS B VACCINE Aged Out No [...] patient's age to complete this topic Insurance [facility] MANAGED MEDICARE ADV AETNA MEDICARE ADV SELF PAY NO INSURANCE Member Subscriber Plan / Payer (Ef fective for All Dates) Name:Marshal Sanders Member ID:Not on file Relation to Subscriber:Not on file Name:Marshal SANDERS Subscriber ID:Not on file Address: [address] [place] [address] Payer ID:Not on file Group ID:Not on file Type:Self Pay Address: [place], [place] AETNA MEDICARE ADV SELF PAY NO INSURANCE Member Subscriber Plan / Payer (Ef fective for All Dates) Name:Marshal Sanders Member ID:Not on file Relation to Subscriber:Not on file Name:Marshal SANDERS Subscriber ID:Not on file Address: [address] [place] [address] [place] [address] Payer ID:Not on file Group ID:Not on file Type:Self Pay Address: [place], [place] Care Teams Job Specification Writer Relationship Specialty Start Date End Date Abrahan Mcgee MD [address] [place] [address] PCP - General 07/23/09
--- OUTSIDE RECORDS SUMMARY | 2024-09-26 13:27 | XMS_ITS | Encounter Summary ---
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 Gender Identity Not on file Sexual Orientation Not on file documented as of this encounter Plan of Treatment Upcoming Encounters Date Type Department Care Team (Late st Contact Info) Description 10/02/2024 11:45 AM CDT Office Visit [facility] [place] [facility] Oncology and Hematology - [place] [address] [place] [address] [address] [place] [address] Prince Mir MD [address] [place] [address] [address] [place] [address] documented as of this encounter Visit Diagnoses Not on filedocumented in this encounter Care Teams Seafood Clerk Relationship Specialty Start Date End Date Abrahan Mcgee MD [address] [place] [address] PCP - General Family Practice 04/03/24 documented as of this encounter
--- OUTSIDE RECORDS SUMMARY | 2024-09-26 13:27 | XMS_ITS | Encounter Summary ---
Author Organization [facility] Address 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 Gender Identity Not on file Sexual Orientation Not on file documented as of this encounter Plan of Treatment Upcoming Encounters Date Type Department Care Team (Late st Contact Info) Description 10/02/2024 11:45 AM CDT Office Visit [facility] Oncology and Hematology - [place] [address] [place] [address] [address] [place] [address] [place] [address] [place] [address] [address] [place] [address] documented as of this encounter Visit Diagnoses Not on filedocumented in this encounter Care Teams Nurse Emergency Relationship Specialty Start Date End Date Abrahan Mcgee MD [address] [place] [address] PCP - General Family Practice 04/03/24 documented as of this encounter
--- OUTSIDE RECORDS SUMMARY | 2024-09-26 13:27 | XMS_ITS | Encounter Summary ---
Author Organization [facility] Address 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 Gender Identity Not on file Sexual Orientation Not on file documented as of this encounter Plan of Treatment Upcoming Encounters Date Type Department Care Team (Late st Contact Info) Description 10/02/2024 11:45 AM CDT Office Visit [facility] Oncology and Hematology - [place] [address] [place] [address] [address] [place] [address] [place] [address] [place] [address] [address] [place] [address] documented as of this encounter Visit Diagnoses Not on filedocumented in this encounter Care Teams Irish Moss Bleacher Relationship Specialty Start Date End Date Abrahan Mcgee MD [address] [place] [address] PCP - General Family Practice 04/03/24 documented as of this encounter
--- OUTSIDE RECORDS SUMMARY | 2024-09-26 13:27 | XMS_ITS | Encounter Summary ---
Author Organization [facility] Address [address] [place] [address] Care Team Providers Care Electric Meter Reader Name Role Phone Abrahan Mcgee MD Primary Care Provider [phone] Encounter Details Date Type Department Care Team (Latest Contact Info) Description 11/01/2003 Outpatient Historical HIS [facility] ЕКАТЕРИНА Sneed, Oscar Medeiros MD NO ADDRESS ON FILE SCREENING MAMM-MAILG NEOPL-OTHER (Primary Dx) Social History Tobacco Use Types Packs/Day Years Used Date Smoking Tobacco: Never Assessed Comments Unknown Sex and Gender Information Value Date Recorded Sex Assigned at Not on file Legal 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 [address] [place] [address] Prince Mir MD [address] [facility] [address] [place] [address] documented as of this encounter Visit Diagnoses Diagnosis Other screening mammogram- Primary documented in this encounter Care Teams Electric Meter Reader Relationship Specialty Start Date End Date Abrahan Mcgee MD [address] [place] [address] PCP - General Family Practice 04/03/24 documented as of this encounter
--- OUTSIDE RECORDS SUMMARY | 2024-09-26 13:27 | XMS_ITS | Encounter Summary ---
Author Organization [facility] Address 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 Gender Identity Not on file Sexual Orientation Not on file documented as of this encounter Plan of Treatment Upcoming Encounters Date Type Department Care Team (Late st Contact Info) Description 10/02/2024 11:45 AM CDT Office Visit [facility] Oncology and Hematology - [place] [address] [place] [address] [address] [place] [address] [place] [address] [place] [address] [address] [place] [address] documented as of this encounter Visit Diagnoses Not on filedocumented in this encounter Care Teams Successfactors Consultant Relationship Specialty Start Date End Date Abrahan Mcgee MD [address] [place] [address] PCP - General Family Practice 04/03/24 documented as of this encounter
--- OUTSIDE RECORDS SUMMARY | 2024-09-26 13:27 | XMS_ITS | Encounter Summary ---
Author Organization [facility] Address 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 Gender Identity Not on file Sexual Orientation Not on file documented as of this encounter Plan of Treatment Upcoming Encounters Date Type Department Care Team (Late st Contact Info) Description 10/02/2024 11:45 AM CDT Office Visit [facility] Oncology and Hematology - [place] [address] [place] [address] [address] [place] [address] Prince Mir MD [address] [facility] [address] [place] [address] documented as of this encounter Visit Diagnoses Diagnosis Pain in joint, lower leg- Primary documented in this encounter Care Teams Collar Folder Operator Relationship Specialty Start Date End Date Abrahan Mcgee MD [address] [place] [address] PCP - General Family Practice 04/03/24 documented as of this encounter
--- OUTSIDE RECORDS SUMMARY | 2024-09-26 13:27 | XMS_ITS | Encounter Summary ---
Author Organization [facility] Address 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 Female 3:33 AM DEAN OF GIRLS Gender Identity Not on file Sexual Orientation Not on file documented as of this encounter Plan of Treatment Upcoming Encounters Date Type Department Care Team (Late st Contact Info) Description 10/02/2024 11:45 AM CDT Office Visit [facility] Oncology and Hematology - [place] [address] [place] [address] [address] [place] [address] [place] [address] [place] [address] [address] [place] [address] documented as of this encounter Visit Diagnoses Not on filedocumented in this encounter Care Teams Traffic Administrator Relationship Specialty Start Date End Date Abrahan Mcgee MD [address] [place] [address] PCP - General Family Practice 04/03/24 documented as of this encounter
--- OUTSIDE RECORDS SUMMARY | 2024-09-26 13:27 | XMS_ITS | Clinical Summary ---
Author Organization [facility] Address [address] [place] [address] Care Team Providers Care Contractor Broomcorn Threshing Name Role Phone Krishna Medina MD Unavailable [phone] Lina Yates NP Unavailable [phone] Abrahan Mcgee MD Primary Care Provider Allergies [...] 2021 Assessment & Plan (02/02/2022 4:10 PM CONDITIONER TUMBLER): Well healed. Removed BCL today without complications. [...] 04/28/2019 Assessment & Plan (04/28/2019 12:28 PM CONDITIONER TUMBLER): Monitor. Discussed signs and symptoms of Retinal tears or detachments. Pt understands to call immediately if noted. Subjective vision disturbance 04/28/2019 Assessment & Plan (04/28/2019 12:29 PM CONDITIONER TUMBLER): Seeing pink dots No hemorrhages or retinal [...] changes. Assessment & Plan (04/28/2019 12:27 PM CONDITIONER TUMBLER): Monitor closely Retinal hole of left eye [...] Date Type Department Care Team Description 09/15/2024 2:45 PM CDT Office Visit [facility] [place] ([facility]) [address] [facility] [address], [address] [place] [address] Joshua Chan, OD Foreign body of left conjunctiva, initial encounter (Primary Dx); Intermediate stage nonexudative age-related macular degeneration of both eyes 09/15/2024 Telephone [facility] Ophthalmology [facility] [place] [address] Joshua Chan, OD Same day from Last 3 Months Surgical History Surgery [...] on file Legal 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:42 PM CONDITIONER TUMBLER Gender Identity Not on file Sexual [...] Date Last Done Comments Depression Screening 1935 Osteoporosis Screening-Bone Density Scan 1935 Hepatitis B Screening 10/12/1953 Zoster Vaccine (1 of 2) 10/12/1954 Well Visit 65+ 10/12/2000 DTaP/Tdap/Td Vaccine (1 - Tdap) 10/18/2014 5 Fall Risk Assessment 11/10/2022 11/10/2021 Influenza Vaccine (#1) 2024 0, 01/20/2019, 12/14/2017, Additional history exists Pneumococcal vaccine 65+ Completed 019, 11/29/2016, 10/10/2014 Insurance [employer] MEDICARE [facility] MEDICARE [facility] MEDICARE Advance Directives For more information, please contact: [phone] * Full Code (Latest Code Status on File) Date Activated Date Inactivated Comments 11/10/2021 10:25 AM 11/10/2021 3:44 PM * Full Code Date Activated Date Inactivated Comments 09/06/2019 9:17 AM 09/06/2019 3:17 PM * Full Code Date Activated Date Inactivated Comments 07/11/2018 9:22 AM 07/11/2018 4:10 PM Care Teams Contractor Broomcorn Threshing Relationship Specialty Start Date End Date Abrahan Mcgee MD [address] [place] [address] PCP - General Family Medicine 06/06/24 Krishna Medina MD [address] [facility] [address] [place] [address] 03/17/19 Lina Yates NP [address] [address] Nurse Practitioner 11/12/22
--- OUTSIDE RECORDS SUMMARY | 2024-09-26 13:27 | XMS_ITS | Encounter Summary ---
Author Organization [facility] Address [address] [place] [address] Care Team Providers Care Powder Operator Name Role Phone Abrahan Mcgee MD Primary Care Provider [phone] Encounter Details Date Type Department Care Team (Latest Contact Info) Description 10/29/[address] 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 Gender Identity Not on file Sexual Orientation Not on file documented as of this encounter Plan of Treatment Upcoming Encounters Date Type Department Care Team (Late st Contact Info) Description 10/02/2024 11:45 AM CDT Office Visit [facility] Oncology and Hematology - [place] [address] [place] [address] [address] [place] [address] [place] [address] [place] [address] [address] [place] [address] documented as of this encounter Visit Diagnoses Diagnosis Backache, unspecified- Primary documented in this encounter Care Teams Powder Operator Relationship Specialty Start Date End Date Abrahan Mcgee MD [address] [place] [address] PCP - General Family Practice 04/03/24 documented as of this encounter
--- OUTSIDE RECORDS SUMMARY | 2024-09-26 13:27 | XMS_ITS | Encounter Summary ---
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 Female 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 Gender Identity Not on file Sexual Orientation Not on file documented as of this encounter Plan of Treatment Upcoming Encounters Date Type Department Care Team (Late st Contact Info) Description 10/02/2024 11:45 AM CDT Office Visit [facility] Oncology and Hematology - [place] [address] [place] [address] [address] [place] [address] Prince Mir MD [address] [place] [address] [address] [place] [address] documented as of this encounter Visit Diagnoses Not on filedocumented in this encounter Care Teams Pediatric Registered Nurse Relationship Specialty Start Date End Date Abrahan Mcgee MD [address] [place] [address] PCP - General Family Practice 04/03/24 documented as of this encounter
--- OUTSIDE RECORDS SUMMARY | 2024-09-26 13:27 | XMS_ITS | Encounter Summary ---
Author Organization [facility] Healthcare Address [address] [place] [address] Care Team Providers Care Boiler Riveter Name Role Phone Abrahan Mcgee MD Primary Care Provider [phone] Reason for Visit * Diagnostic Imaging (Routine) - Closed Specialty Diagnoses / Procedures Referred By Contac t Referred To Contact Procedures Breast Imaging Diagnostic Outside Reference Aft, [place] PhD [address] [place] [address] Phone: tel: fax: Referral ID Status Reason Start Date Expiration Date Visits Re quested Visits Authorized [id number] Closed 01/19/2022 02/18/2023 1 1 Encounter Details Date Type Department Care Team (Late st Contact Info) Description 07/21/2016 Hospital Encounter [facility] [address] [place] [id number] Social History Tobacco Use Types Packs/Day Years [...] on file Legal 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:42 PM TYPESETTER PERFORATOR OPERATOR Gender Identity Not on file Sexual [...] CDT) Impressions [facility] - 01/19/2022 10:56 AM TYPESETTER PERFORATOR OPERATOR These images are for Reference purposes only and have not been reviewed by [facility]. There will be no report generated by a [facility]iologist. Narrative [facility] - 01/19/2022 10:56 AM TYPESETTER PERFORATOR OPERATOR EXAMINATION: Images For Reference Purposes Only us Sweta Conteh MD PhD IMG MAMMO PROCEDURES Final Result [facility] documented in this encounter Visit Diagnoses Not on filedocumented in this encounter Care Teams Boiler Riveter Relationship Specialty Start Date End Date Abrahan Mcgee MD PCP - General 10/06/11 09/09/16 documented as of this encounter
--- OUTSIDE RECORDS SUMMARY | 2024-09-26 13:27 | XMS_ITS | Encounter Summary ---
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 Gender Identity Not on file Sexual Orientation Not on file documented as of this encounter Plan of Treatment Upcoming Encounters Date Type Department Care Team (Late st Contact Info) Description 10/02/2024 11:45 AM CDT Office Visit [facility] Oncology and Hematology - [place] [address] [place] [address] [address] [place] [address] Prince Mir MD [address] [place] [address] [address] [place] [address] documented as of this encounter Visit Diagnoses Not on filedocumented in this encounter Care Teams Hand Binder Stripper Relationship Specialty Start Date End Date Abrahan Mcgee MD [address] [place] [address] PCP - General Family Practice 04/03/24 documented as of this encounter
--- OUTSIDE RECORDS SUMMARY | 2024-09-26 13:27 | XMS_ITS | Encounter Summary ---
Author Organization [facility] Address 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 Gender Identity Not on file Sexual Orientation Not on file documented as of this encounter Plan of Treatment Upcoming Encounters Date Type Department Care Team (Late st Contact Info) Description 10/02/2024 11:45 AM CDT Office Visit [facility] Oncology and Hematology - [place] [address] [place] [address] [address] [place] [address] [place] [address] [place] [address] [address] [place] [address] documented as of this encounter Visit Diagnoses Diagnosis Unspecified sinusitis (chronic)- Primary documented in this encounter Care Teams Biomedical Engineering Aide Relationship Specialty Start Date End Date Abrahan Mcgee MD [address] [place] [address] PCP - General Family Practice 04/03/24 documented as of this encounter
--- OUTSIDE RECORDS SUMMARY | 2024-09-26 13:27 | XMS_ITS | Encounter Summary ---
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 Gender Identity Not on file Sexual Orientation Not on file documented as of this encounter Plan of Treatment Upcoming Encounters Date Type Department Care Team (Late st Contact Info) Description 10/02/2024 11:45 AM CDT Office Visit [facility] Oncology and Hematology - [place] [address] [place] [address] [address] [place] [address] Prince Mir MD [address] [place] [address] [address] [place] [address] documented as of this encounter Visit Diagnoses Not on filedocumented in this encounter Care Teams Phlebotomy Specialist Relationship Specialty Start Date End Date Abrahan Mcgee MD [address] [place] [address] PCP - General Family Practice 04/03/24 documented as of this encounter
--- OUTSIDE RECORDS SUMMARY | 2024-09-26 13:28 | XMS_ITS | Encounter Summary ---
Author Organization [facility] Address [address] [place] [address] Care Team Providers Care Temperature Control Inspector Name Role Phone Abrahan Mcgee MD Primary Care Provider [phone] Encounter Details Date Type Department Care Team (Late st Contact Info) Description 06/05/2004 Outpatient Historical HIS [facility] Andre Ernst MD NO ADDRESS ON FILE Social History Tobacco Use Types Packs/Day Years Used Date Smoking Tobacco: Never Assessed Comments Unknown Sex and Gender Information Value Date Recorded Sex Assigned at Not on file Legal Sex Female 3:33 AM ACCOUNT DIRECTOR Gender Identity Not on file Sexual Orientation Not on file documented as of this encounter Plan of Treatment Upcoming Encounters Date Type Department Care Team (Late st Contact Info) Description 10/02/2024 11:45 AM CDT Office Visit [facility] Oncology and Hematology - [place] [address] [place] [address] [address] [place] [address] [place] [address] [place] [address] [address] [place] [address] documented as of this encounter Visit Diagnoses Not on filedocumented in this encounter Care Teams Temperature Control Inspector Relationship Specialty Start Date End Date Abrahan Mcgee MD [address] [place] [address] PCP - General Family Practice 04/03/24 documented as of this encounter
--- OUTSIDE RECORDS SUMMARY | 2024-09-26 13:28 | XMS_ITS | Encounter Summary ---
Author Organization [facility] Address [address] [place] [address] Care Team Providers Care Process Owner Name Role Phone Abrahan Mcgee MD Primary Care Provider [phone] Encounter Details Date Type Department Care Team (Late st Contact Info) Description 12/05/2004 Outpatient Historical HIS [facility] Meryl Perry MD [address] [place] [address] UTERINE LEIOMYOMA NOS (Primary Dx) Social History Tobacco Use Types Packs/Day Years Used Date Smoking Tobacco: Never Assessed Comments Unknown Sex and Gender Information Value Date Recorded Sex Assigned at Not on file Legal Sex Female 3:33 AM MANAGER ANALYSIS Gender Identity Not on file Sexual Orientation Not on file documented as of this encounter Plan of Treatment Upcoming Encounters Date Type Department Care Team (Late st Contact Info) Description 10/02/2024 11:45 AM CDT Office Visit [facility] Oncology and Hematology - [place] [address] [facility] [address] [place] [address] Prince Mir MD [address] [facility] [address] [place] [address] documented as of this encounter Visit Diagnoses Diagnosis Leiomyoma of uterus, unspecified- Primary documented in this encounter Care Teams Process Owner Relationship Specialty Start Date End Date Abrahan Mcgee MD [address] [place] [address] PCP - General Family Practice 04/03/24 documented as of this encounter
--- OUTSIDE RECORDS SUMMARY | 2024-09-26 13:28 | XMS_ITS | Encounter Summary ---
Author Organization [facility] Address [address] [place] [address] Care Team Providers Care Light Oil Operator Name Role Phone Abrahan Mcgee MD Primary Care Provider [phone] Encounter Details Date Type Department Care Team (Late st Contact Info) Description 07/27/2003 Outpatient Historical HIS [facility] Perry, Meryl Pereira MD [address] [place] [address] [address] ABNORMAL FINDINGS-GI TRACT (Primary Dx) Social History Tobacco Use Types Packs/Day Years Used Date Smoking Tobacco: Never Assessed Comments Unknown Sex and Gender Information Value Date Recorded Sex Assigned at Not on file Legal Sex Female 3:33 AM AUTOMATION CONTROLS ENGINEER Gender Identity Not on file Sexual Orientation Not on file documented as of this encounter Plan of Treatment Upcoming Encounters Date Type Department Care Team (Late st Contact Info) Description 10/02/2024 11:45 AM CDT Office Visit [facility] Oncology and Hematology - [place] [address] [facility] [address] [place] [address] Prince Mir MD [address] [facility] [address] [place] [address] documented as of this encounter Visit Diagnoses Diagnosis Nonspecific (abnormal) findings on radiological and other examination of gastrointestinal tract- Primary documented in this encounter Care Teams Light Oil Operator Relationship Specialty Start Date End Date Abrahan Mcgee MD [address] [place] [address] PCP - General Family Practice 04/03/24 documented as of this encounter
--- OUTSIDE RECORDS SUMMARY | 2024-09-26 13:28 | XMS_ITS | Encounter Summary ---
Author Organization [facility] Address [address] [place] [address] Care Team Providers Care Limnology Teacher Name Role Phone Abrahan Mcgee MD Primary Care Provider [phone] Encounter Details Date Type Department Care Team (Latest Contact Info) Description 12/04/2005 Outpatient Historical HIS [facility] Andre Vidal MD NO ADDRESS ON FILE Essential Hypertension, Benign (Primary Dx) Social History Tobacco Use Types Packs/Day Years Used Date Smoking Tobacco: Never Assessed Comments Unknown Sex and Gender Information Value Date Recorded Sex Assigned at Not on file Legal Sex Female 3:33 AM ANIMAL GROOMER Gender Identity Not on file Sexual Orientation Not on file documented as of this encounter Plan of Treatment Upcoming Encounters Date Type Department Care Team (Late st Contact Info) Description 10/02/2024 11:45 AM CDT Office Visit [facility] Oncology and Hematology - [place] [address] [facility] [address] [place] [address] Prince iMr MD [address] [facility] [address] [place] [address] documented as of this encounter [...] ORDERABLES Final Res ult Performing Organization Address [facility] Co de Phone Number INTERFACE [...] ORDERABLES Final Res ult Performing Organization Address [facility]/ZIP Co de Phone Number INTERFACE SYSTEM Refer to clinic/hospital department documented in this encounter Visit Diagnoses Diagnosis Essential hypertension, benign- Primary documented in this encounter Care Teams Limnology Teacher Relationship Specialty Start Date End Date Abrahan Mcgee MD [address] [place] [address] PCP - General Family Practice 04/03/24 documented as of this encounter
--- OUTSIDE RECORDS SUMMARY | 2024-09-26 13:28 | XMS_ITS | Encounter Summary ---
Author Organization [facility] Address [address] [place] [address] Care Team Providers Care Professor Of Literature Name Role Phone Abrahan Mcgee MD Primary Care Provider [phone] Encounter Details Date Type Department Care Team (Late st Contact Info) Description 02/24/2005 Outpatient Historical [facility] Adult Hospital[facility] [address] [place] [address] Alcon Valadez MD [address] [place] [address] Social History Tobacco Use Types Packs/Day Years Used Date Smoking Tobacco: Never Assessed Comments Unknown Sex and Gender Information Value Date Recorded Sex Assigned at Not on file Legal Sex Female 3:33 AM COATER SLATE Gender Identity Not on file Sexual Orientation Not on file documented as of this encounter Plan of Treatment Upcoming Encounters Date Type Department Care Team (Late st Contact Info) Description 10/02/2024 11:45 AM CDT Office Visit [facility] Oncology and Hematology - [place] [address] [facility] [address] [place] [address] Prince Mir MD [address] [facility] [address] [place] [address] documented as of this encounter Visit Diagnoses Not on filedocumented in this encounter Care Teams Professor Of Literature Relationship Specialty Start Date End Date Abrahan Mcgee MD [address] [place] [address] PCP - General Family Practice 04/03/24 documented as of this encounter
--- OUTSIDE RECORDS SUMMARY | 2024-09-26 13:28 | XMS_ITS | Encounter Summary ---
Author Organization [facility] Address 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 OPERATOR Gender Identity Not on file Sexual Orientation Not on file documented as of this encounter Plan of Treatment Upcoming Encounters Date Type Department Care Team (Late st Contact Info) Description 10/02/2024 11:45 AM CDT Office Visit [facility] Oncology and Hematology - [place] [address] [place] [address] [address] [place] [address] Prince Mir MD [address] [facility] [address] [place] [address] documented as of this encounter Visit Diagnoses Not on filedocumented in this encounter Care Teams Intel Analyst Relationship Specialty Start Date End Date Abrahan Mcgee MD [address] [place] [address] PCP - General Family Practice 04/03/24 documented as of this encounter
--- OUTSIDE RECORDS SUMMARY | 2024-09-26 13:28 | XMS_ITS | Encounter Summary ---
Author Organization [facility] Address [address] [place] [address] Care Team Providers Care Change Of Address Clerk Name Role Phone Abrahan Mcgee MD Primary Care Provider [phone] Encounter Details Date Type Department Care Team (Latest Contact Info) Description 02/23/2005 Inpatient Historical [facility] Alcon Valadez MD [address] [address] Deisy Garcia MD [address] [address] CHEST PAIN NOS (Primary Dx) Social History Tobacco Use Types Packs/Day Years Used Date Smoking Tobacco: Never Assessed Comments Unknown Sex and Gender Information Value Date Recorded Sex Assigned at Not on file Legal Sex Female 3:33 AM PHONE TRIAGE SPECIALIST Gender Identity Not on file Sexual Orientation Not on file documented as of this encounter Plan of Treatment Upcoming Encounters Date Type Department Care Team (Late st Contact Info) Description 10/02/2024 11:45 AM CDT Office Visit [facility] Oncology and Hematology - [place] [address] [facility] [address] [place] [address] Prince Mir MD [address] [facility] [address] [place] [address] documented as of this encounter Procedures Procedure Name Priority Date/Time Associated Diagnosis Comments CBC WITH DIFFERENTIAL Routine 02/25/2005 4:30 AM PHONE TRIAGE SPECIALIST CBC WITH DIFFERENTIAL Routine 02/25/2005 4:30 AM PHONE TRIAGE SPECIALIST C-REACTIVE PROTEIN Routine 02/25/2005 4: 30 AM PHONE TRIAGE SPECIALIST T3 FREE Routine 02/25/2005 4:30 AM PHONE TRIAGE SPECIALIST T4 FREE Routine 02/25/2005 4:30 AM PHONE TRIAGE SPECIALIST BASIC METABOLIC PANEL Routine 02/25/2005 4:30 AM PHONE TRIAGE SPECIALIST TSH Routine 02/24/2005 4:35 AM PHONE TRIAGE SPECIALIST LIPASE Routine 02/24/2005 4:35 AM PHONE TRIAGE SPECIALIST AMYLASE Routine 02/24/2005 4:35 AM PHONE TRIAGE SPECIALIST LIPID PANEL Routine 02/24/2005 4:35 AM PHONE TRIAGE SPECIALIST BASIC METABOLIC PANEL Routine 02/24/2005 4:35 AM PHONE TRIAGE SPECIALIST TROPONIN (W/REFLEX CKMB/CK) Routine 02/24/2005 4:15 AM PHONE TRIAGE SPECIALIST TROPONIN (W/REFLEX CKMB/CK) Routine 02/23/2005 10:15 PM PHONE TRIAGE SPECIALIST URINALYSIS W/REFLEX MICROSCOPIC Routine 02/23/2005 8:31 PM PHONE TRIAGE SPECIALIST TROPONIN (W/REFLEX CKMB/CK) Routine 02/23/2005 1:28 PM PHONE TRIAGE SPECIALIST CBC WITH DIFFERENTIAL Routine 02/23/2005 12:46 PM PHONE TRIAGE SPECIALIST CBC WITH DIFFERENTIAL Routine 02/23/2005 12:46 PM PHONE TRIAGE SPECIALIST LIPASE Routine 02/23/2005 12:46 PM PHONE TRIAGE SPECIALIST AMYLASE Routine 02/23/2005 12:46 PM PHONE TRIAGE SPECIALIST COMPREHENSIVE METABOLIC PANEL Routine 02/23/2005 12:46 PM PHONE TRIAGE SPECIALIST documented in this encounter Results * CBC WITH DIFFERENTIAL (02/25/2005 4:30 AM PHONE TRIAGE SPECIALIST) NEUTROPHILS 52 45 - 70 % INTERFAC [...] 0.20 K/uL INTERFACE SYSTEM 02/25/2005 4:30 AM PHONE TRIAGE SPECIALIST Alcon Valadez MD HEMATOLOGY ORDERABLES Final Re sult Performing Organization Address [facility] de Phone Number INTERFACE SYSTEM Refer to clinic/hospital department * (ABNORMAL) CBC WITH DIFFERENTIAL (02/25/2005 4:30 AM PHONE TRIAGE SPECIALIST) WBC 7.4 4.0 - 9.8 K/uL INTERFACE [...] 12.4 fL INTERFACE SYSTEM 02/25/2005 4:30 AM PHONE TRIAGE SPECIALIST Alcon Valadez MD HEMATOLOGY ORDERABLES Final Re sult Performing Organization Address [facility]/ZIP Co de Phone Number INTERFACE SYSTEM Refer to clinic/hospital department * T3 FREE (02/25/2005 4:30 AM PHONE TRIAGE SPECIALIST) T3 FREE 2.9 2.5 - 4.4 pg/mL INTERFACE SYSTEM 02/25/2005 4:30 AM PHONE TRIAGE SPECIALIST us Alcon Valadez MD CHEMISTRY ORDERABLES Final Res ult Performing Organization Address [facility] Phone Number INTERFACE SYSTEM Refer to clinic/hospital department * T4 FREE (02/25/2005 4:30 AM PHONE TRIAGE SPECIALIST) T4 FREE 1.3 0.9 - 1.7 ng/dL INTERFACE SYSTEM 02/25/2005 4:30 AM PHONE TRIAGE SPECIALIST us Alcon Valadez MD CHEMISTRY ORDERABLES Final Res ult Performing Organization Address [facility] Phone Number INTERFACE SYSTEM Refer to clinic/hospital department * C-REACTIVE PROTEIN (02/25/2005 4:30 AM PHONE TRIAGE SPECIALIST) CRP 0.6 0.0 - 0.8 mg/dL INTERFACE SYSTEM 02/25/2005 4:30 AM PHONE TRIAGE SPECIALIST us Alcon Valadez MD CHEMISTRY ORDERABLES Final Res ult Performing Organization Address [facility] Phone Number INTERFACE SYSTEM Refer to clinic/hospital department * BASIC METABOLIC PANEL (02/25/2005 4:30 AM PHONE TRIAGE SPECIALIST) GLUCOSE 89 65 - 109 mg/dL INTERFACE [...] 30 mmol/L INTERFACE SYSTEM 02/25/2005 4:30 AM PHONE TRIAGE SPECIALIST Alcon Valadez MD CHEMISTRY ORDERABLES Final Res ult Performing Organization Address [facility] Phone Number INTERFACE SYSTEM Refer to clinic/hospital department * (ABNORMAL) LIPASE (02/24/2005 4:35 AM PHONE TRIAGE SPECIALIST) LIPASE 90(H) 13 - 60 U/L INTERFAC E SYSTEM 02/24/2005 4:35 AM PHONE TRIAGE SPECIALIST us Nora Sivaprasad CHEMISTRY ORDERABLES Final Resu lt Performing Organization Address [facility] Phone Number INTERFACE SYSTEM Refer to clinic/hospital department * (ABNORMAL) AMYLASE (02/24/2005 4:35 AM PHONE TRIAGE SPECIALIST) AMYLASE 118(H) 28 - 100 U/L INTERFACE SYSTEM 02/24/2005 4:35 AM PHONE TRIAGE SPECIALIST Nora Sivaprasad CHEMISTRY ORDERABLES Final Resu lt Performing Organization Address [facility] Phone Number INTERFACE SYSTEM Refer to clinic/hospital department * (ABNORMAL) TSH (02/24/2005 4:35 AM PHONE TRIAGE SPECIALIST) TSH 4.33(H) 0.27 - 4.20 uU/mL INTERFACE SYSTEM 02/24/2005 4:35 AM PHONE TRIAGE SPECIALIST Nora Sivaprasad CHEMISTRY ORDERABLES Final Resu lt Performing Organization Address [facility] Phone Number INTERFACE SYSTEM Refer to clinic/hospital department * LIPID PANEL (02/24/2005 4:35 AM PHONE TRIAGE SPECIALIST) LIPID PANEL COMMENT See below INTERFACE SYSTEM [...] section for risk classifications. 02/24/2005 4:35 AM PHONE TRIAGE SPECIALIST [employer] CHEMISTRY ORDERABLES Final Resu lt Performing Organization Address City/[facility] Co de Phone Number INTERFACE SYSTEM Refer to clinic/hospital department * BASIC METABOLIC PANEL (02/24/2005 4:35 AM PHONE TRIAGE SPECIALIST) GLUCOSE 100 65 - 109 mg/dL INTERFACE [...] 30 mmol/L INTERFACE SYSTEM 02/24/2005 4:35 AM PHONE TRIAGE SPECIALIST Nora [employer] CHEMISTRY ORDERABLES Final Resu lt Performing Organization Address City/[facility]/ZIP Co de Phone Number INTERFACE SYSTEM Refer to clinic/hospital department * TROPONIN (W/REFLEX CKMB/CK) (02/24/2005 4:15 AM PHONE TRIAGE SPECIALIST) TROPONIN T <0.01 <=0.03 ng/mL INTERFACE SYSTEM TROPONIN T INTERP Negative INTERFACE SYSTEM 02/24/2005 4:15 AM PHONE TRIAGE SPECIALIST [facility] Sivaprasad CHEMISTRY ORDERABLES Final Resu lt Performing Organization Address [facility] Phone Number INTERFACE SYSTEM Refer to clinic/hospital department * TROPONIN (W/REFLEX CKMB/CK) (02/23/2005 10:15 PM PHONE TRIAGE SPECIALIST) TROPONIN T <0.01 <=0.03 ng/mL INTERFACE SYSTEM TROPONIN T INTERP Negative INTERFACE SYSTEM 02/23/2005 10:1 5 PM PHONE TRIAGE SPECIALIST [facility] MollyWatraprasad CHEMISTRY ORDERABLES Final Resu lt Performing Organization Address [facility] Phone Number INTERFACE SYSTEM Refer to clinic/hospital department * (ABNORMAL) URINALYSIS (02/23/2005 8:31 PM PHONE TRIAGE SPECIALIST) COLOR UA Yellow INTERFACE SYSTEM CLARITY UA [...] 2-5 /HPF INTERFACE SYSTEM 02/23/2005 8:31 PM PHONE TRIAGE SPECIALIST [facility] Sivaprasad URINE ORDERABLES Final Result Performing Organization Address [facility] Phone Number INTERFACE SYSTEM Refer to clinic/hospital department * TROPONIN (W/REFLEX CKMB/CK) (02/23/2005 1:28 PM PHONE TRIAGE SPECIALIST) TROPONIN T <0.01 <=0.03 ng/mL INTERFACE SYSTEM TROPONIN T INTERP Negative INTERFACE SYSTEM 02/23/2005 1:28 PM PHONE TRIAGE SPECIALIST us Erika P Er CHEMISTRY ORDERABLES Final Resul t Performing Organization Address [facility] de Phone Number INTERFACE SYSTEM Refer to clinic/hospital department * CBC WITH DIFFERENTIAL (02/23/2005 12:46 PM PHONE TRIAGE SPECIALIST) NEUTROPHILS 70 45 - 70 % INTERFAC [...] K/uL INTERFACE SYSTEM 02/23/2005 12:4 6 PM PHONE TRIAGE SPECIALIST Jasbir Sol MD HEMATOLOGY ORDERABLES Final Re sult Performing Organization Address [facility] Phone Number INTERFACE SYSTEM Refer to clinic/hospital department * (ABNORMAL) CBC WITH DIFFERENTIAL (02/23/2005 12:46 PM PHONE TRIAGE SPECIALIST) WBC 9.3 4.0 - 9.8 K/uL INTERFACE [...] fL INTERFACE SYSTEM 02/23/2005 12:4 6 PM PHONE TRIAGE SPECIALIST Jasbir Sol MD HEMATOLOGY ORDERABLES Final Re sult Performing Organization Address [facility] Phone Number INTERFACE SYSTEM Refer to clinic/hospital department * (ABNORMAL) LIPASE (02/23/2005 12:46 PM PHONE TRIAGE SPECIALIST) LIPASE 91(H) 13 - 60 U/L INTERFAC E SYSTEM 02/23/2005 12:4 6 PM PHONE TRIAGE SPECIALIST Jasbir Sol MD CHEMISTRY ORDERABLES Final Res ult Performing Organization Address [facility] Phone Number INTERFACE SYSTEM Refer to clinic/hospital department * (ABNORMAL) AMYLASE (02/23/2005 12:46 PM PHONE TRIAGE SPECIALIST) AMYLASE 134(H) 28 - 100 U/L INTERFACE SYSTEM 02/23/2005 12:4 6 PM PHONE TRIAGE SPECIALIST Jasbir Sol MD CHEMISTRY ORDERABLES Final Res ult Performing Organization Address [facility] Phone Number INTERFACE SYSTEM Refer to clinic/hospital department * (ABNORMAL) COMPREHENSIVE METABOLIC PANEL (02/23/2005 12:46 PM PHONE TRIAGE SPECIALIST) GLUCOSE 115(H) 65 - 109 mg/dL INTERFACE [...] mmol/L INTERFACE SYSTEM 02/23/2005 12:4 6 PM PHONE TRIAGE SPECIALIST us Jasbir Sol MD CHEMISTRY ORDERABLES Final Res ult INTERFACE SYSTEM Refer to clinic/hospital department documented in this encounter Visit Diagnoses Diagnosis Chest pain, unspecified- Primary documented in this encounter Care Teams Change Of Address Clerk Relationship Specialty Start Date End Date Abrahan Mcgee MD [address] [place] [address] PCP - General Family Practice 04/03/24 documented as of this encounter
--- OUTSIDE RECORDS SUMMARY | 2024-09-26 13:28 | XMS_ITS | Encounter Summary ---
Author Organization [facility] Address [address] [place] [address] Care Team Providers Care Compressed Air Pile Driver Operator Name Role Phone Abrahan Mcgee MD Primary Care Provider [phone] Encounter Details Date Type Department Care Team (Latest Contact Info) Description 10/17/2002 Outpatient Historical HIS [facility] Andre Vidal MD NO ADDRESS ON FILE SOLITARY CYST OF BREAST (Primary Dx) Social History Tobacco Use Types Packs/Day Years Used Date Smoking Tobacco: Never Assessed Comments Unknown Sex and Gender Information Value Date Recorded Sex Assigned at Not on file Legal Sex Female 3:33 AM RESEARCH FELLOW Gender Identity Not on file Sexual Orientation Not on file documented as of this encounter Plan of Treatment Upcoming Encounters Date Type Department Care Team (Late st Contact Info) Description 10/02/2024 11:45 AM CDT Office Visit [facility] Oncology and Hematology - [place] [address] [place] [address] [address] [place] [address] [place] [address] [place] [address] [address] [place] [address] documented as of this encounter Visit Diagnoses Diagnosis Solitary cyst of breast- Primary documented in this encounter Care Teams Compressed Air Pile Driver Operator Relationship Specialty Start Date End Date Abrahan Mcgee MD [address] [place] [address] PCP - General Family Practice 04/03/24 documented as of this encounter
--- OUTSIDE RECORDS SUMMARY | 2024-09-26 13:28 | XMS_ITS | Encounter Summary ---
Author Organization [facility] Address [address] [place] [address] Care Team Providers Care Finger Lift Operator Name Role Phone Abrahan Mcgee MD Primary Care Provider [phone] Encounter Details Date Type Department Care Team (Latest Contact Info) Description 09/16/2004 Outpatient Historical HIS [facility] Andre Vidal MD NO ADDRESS ON FILE BENIGN HYPERTENSION (Primary Dx) Social History Tobacco Use Types Packs/Day Years Used Date Smoking Tobacco: Never Assessed Comments Unknown Sex and Gender Information Value Date Recorded Sex Assigned at Not on file Legal Sex Female 3:33 AM PHYSICAL INTEGRATION PRACTITIONER Gender Identity Not on file Sexual Orientation Not on file documented as of this encounter Plan of Treatment Upcoming Encounters Date Type Department Care Team (Late st Contact Info) Description 10/02/2024 11:45 AM CDT Office Visit [facility] Oncology and Hematology - [place] [address] [facility] [address] [place] [address] Prince Mir MD [address] [facility] [address] [place] [address] documented as of this encounter [...] ORDERABLES Final Re sult Performing Organization Address City/[facility] Co de Phone Number INTERFACE SYSTEM Refer to clinic/hospital department * TSH (09/16/2004 11:48 AM CDT) TSH 1.55 0.27 - 4.20 uU/mL INTERFACE SYSTEM 09/16/2004 11:4 8 AM CDT Andre Ernst MD CHEMISTRY ORDERABLES Final Res ult Performing Organization Address City/[facility] Co de Phone Number INTERFACE [...] ORDERABLES Final Res ult Performing Organization Address City/[facility] Co de Phone Number INTERFACE SYSTEM Refer to clinic/hospital department documented in this encounter Visit Diagnoses Diagnosis Essential hypertension, benign- Primary documented in this encounter Care Teams Finger Lift Operator Relationship Specialty Start Date End Date Abrahan Mcgee MD [address] [place] [address] PCP - General Family Practice 04/03/24 documented as of this encounter
--- OUTSIDE RECORDS SUMMARY | 2024-09-26 13:28 | XMS_ITS | Encounter Summary ---
Author Organization [facility] Address [address] [place] [address] Care Team Providers Care Inspector Handbag Frames Name Role Phone Abrahan Mcgee MD Primary Care Provider [phone] Encounter Details Date Type Department Care Team (Late st Contact Info) Description 12/17/2004 Outpatient Historical [facility] Meryl Perry MD [address] [place] [address] [address] BENIGN NEOPLASM LG BOWEL (Primary Dx) Social History Tobacco Use Types Packs/Day Years Used Date Smoking Tobacco: Never Assessed Comments Unknown Sex and Gender Information Value Date Recorded Sex Assigned at Not on file Legal Sex Female 3:33 AM QUALITY ASSURANCE QA LAB ANALYST Gender Identity Not on file Sexual Orientation Not on file documented as of this encounter Plan of Treatment Upcoming Encounters Date Type Department Care Team (Late st Contact Info) Description 10/02/2024 11:45 AM CDT Office Visit [facility] Oncology and Hematology - [place] [address] [facility] [address] [place] [address] Prince Mir MD [address] [facility] [address] [place] [address] documented as of this encounter Visit Diagnoses Diagnosis Benign neoplasm of colon- Primary documented in this encounter Care Teams Inspector Handbag Frames Relationship Specialty Start Date End Date Abrahan Mcgee MD [address] [place] [address] PCP - General Family Practice 04/03/24 documented as of this encounter
--- OUTSIDE RECORDS SUMMARY | 2024-09-26 13:28 | XMS_ITS | Encounter Summary ---
Author Organization [facility] Address [address] [place] [address] Care Team Providers Care Reconciliation Accountant Name Role Phone Abrahan Mcgee MD Primary Care Provider [phone] Encounter Details Date Type Department Care Team (Late st Contact Info) Description 11/20/2002 Emergency [facility] Nahid Carias MD NO ADDRESS ON FILE Er, Authorized P NO ADDRESS ON FILE OPEN WOUND OF SCALP (Primary Dx) Social History Tobacco Use Types Packs/Day Years Used Date Smoking Tobacco: Never Assessed Comments Unknown Sex and Gender Information Value Date Recorded Sex Assigned at Not on file Legal Sex Female 3:33 AM RETAIL AIDE Gender Identity Not on file Sexual Orientation Not on file documented as of this encounter Plan of Treatment Upcoming Encounters Date Type Department Care Team (Late st Contact Info) Description 10/02/2024 11:45 AM CDT Office Visit [facility] Oncology and Hematology - [place] [address] [facility] [address] [place] [address] Prince Mir MD [address] [facility] [address] [place] [address] documented as of this encounter Visit Diagnoses Diagnosis Open wound of scalp, without mention of complication- Primary documented in this encounter Care Teams Reconciliation Accountant Relationship Specialty Start Date End Date Abrahan Mcgee MD [address] [place] [address] PCP - General Family Practice 04/03/24 documented as of this encounter
--- OUTSIDE RECORDS SUMMARY | 2024-09-26 13:28 | XMS_ITS | Encounter Summary ---
Author Organization [facility] Address [address] [place] [address] Care Team Providers Care Ruby On Rails Web Developer Name Role Phone Abrahan Mcgee MD Primary Care Provider [phone] Encounter Details Date Type Department Care Team (Late st Contact Info) Description 06/11/2005 Outpatient Historical [facility] Andre Ernst MD NO ADDRESS ON FILE Social History Tobacco Use Types Packs/Day Years Used Date Smoking Tobacco: Never Assessed Comments Unknown Sex and Gender Information Value Date Recorded Sex Assigned at Not on file Legal Sex Female 3:33 AM AUTOMOTIVE METALSMITH Gender Identity Not on file Sexual Orientation Not on file documented as of this encounter Plan of Treatment Upcoming Encounters Date Type Department Care Team (Late st Contact Info) Description 10/02/2024 11:45 AM CDT Office Visit [facility] Oncology and Hematology - [place] [address] [place] [address] [address] [place] [address] [place] [address] [place] [address] [address] [place] [address] documented as of this encounter Visit Diagnoses Not on filedocumented in this encounter Care Teams Ruby On Rails Web Developer Relationship Specialty Start Date End Date Abrahan Mcgee MD [address] [place] [address] PCP - General Family Practice 04/03/24 documented as of this encounter
--- OUTSIDE RECORDS SUMMARY | 2024-09-26 13:28 | XMS_ITS | Encounter Summary ---
Author Organization [facility] Address [address] [place] [address] Care Team Providers Care Wood Window And Door Craftsman Name Role Phone Abrahan Mcgee MD Primary Care Provider [phone] Encounter Details Date Type Department Care Team (Late st Contact Info) Description 08/15/2003 Outpatient Historical [facility] MRI DEPT Meryl Perry MD [address] [place] [address] [address] ABDOMINAL PAIN RUQ (Primary Dx) Social History Tobacco Use Types Packs/Day Years Used Date Smoking Tobacco: Never Assessed Comments Unknown Sex and Gender Information Value Date Recorded Sex Assigned at Not on file Legal Sex Female 3:33 AM PARTICIPANT ADMINISTRATOR Gender Identity Not on file Sexual Orientation Not on file documented as of this encounter Plan of Treatment Upcoming Encounters Date Type Department Care Team (Late st Contact Info) Description 10/02/2024 11:45 AM CDT Office Visit [facility] Oncology and Hematology - [place] [address] [facility] [address] [place] [address] Prince Mir MD [address] [facility] [address] [place] [address] documented as of this encounter Visit Diagnoses Diagnosis Abdominal pain, right upper quadrant- Primary documented in this encounter Care Teams Wood Window And Door Craftsman Relationship Specialty Start Date End Date Abrahan Mcgee MD [address] [place] [address] PCP - General Family Practice 04/03/24 documented as of this encounter
--- OUTSIDE RECORDS SUMMARY | 2024-09-26 13:28 | XMS_ITS | Encounter Summary ---
Author Organization [facility] Address [address] [place] [address] Care Team Providers Care Structural Drafter Name Role Phone Abrahan Mcgee MD Primary Care Provider [phone] Encounter Details Date Type Department Care Team (Late st Contact Info) Description 01/06/2006 Outpatient Historical [facility] Andre Ernst MD NO ADDRESS ON FILE Social History Tobacco Use Types Packs/Day Years Used Date Smoking Tobacco: Never Assessed Comments Unknown Sex and Gender Information Value Date Recorded Sex Assigned at Not on file Legal Sex Female 3:33 AM FISHER TRAWL NET Gender Identity Not on file Sexual Orientation Not on file documented as of this encounter Plan of Treatment Upcoming Encounters Date Type Department Care Team (Late st Contact Info) Description 10/02/2024 11:45 AM CDT Office Visit [facility] Oncology and Hematology - [place] [address] [place] [address] [address] [place] [address] [place] [address] [place] [address] [address] [place] [address] documented as of this encounter Visit Diagnoses Not on filedocumented in this encounter Care Teams Structural Drafter Relationship Specialty Start Date End Date Abrahan Mcgee MD [address] [place] [address] PCP - General Family Practice 04/03/24 documented as of this encounter
--- OUTSIDE RECORDS SUMMARY | 2024-09-26 13:28 | XMS_ITS | Encounter Summary ---
Author Organization [facility] Address [address] [place] [address] Care Team Providers Care Senior Production Planner Name Role Phone Abrahan Mcgee MD Primary Care Provider [phone] Encounter Details Date Type Department Care Team (Late st Contact Info) Description 12/04/2005 Outpatient Historical HIS [facility] Andre Ernst MD NO ADDRESS ON FILE Social History Tobacco Use Types Packs/Day Years Used Date Smoking Tobacco: Never Assessed Comments Unknown Sex and Gender Information Value Date Recorded Sex Assigned at Not on file Legal Sex Female 3:33 AM PLATFORM INSPECTOR Gender Identity Not on file Sexual Orientation Not on file documented as of this encounter Plan of Treatment Upcoming Encounters Date Type Department Care Team (Late st Contact Info) Description 10/02/2024 11:45 AM CDT Office Visit [facility] Oncology and Hematology - [place] [address] [place] [address] [address] [place] [address] [place] [address] [place] [address] [address] [place] [address] documented as of this encounter Visit Diagnoses Not on filedocumented in this encounter Care Teams Senior Production Planner Relationship Specialty Start Date End Date Abrahan Mcgee MD [address] [place] [address] PCP - General Family Practice 04/03/24 documented as of this encounter
--- OUTSIDE RECORDS SUMMARY | 2024-09-26 13:28 | XMS_ITS | Encounter Summary ---
Author Organization [facility] Address [address] [place] [address] Care Team Providers Care Fluid Pump Operator Name Role Phone Abrahan Mcgee MD Primary Care Provider [phone] Encounter Details Date Type Department Care Team (Latest Contact Info) Description 11/24/2005 Outpatient Historical HIS [facility] ЕКАТЕРИНА Sneed, Oscar Medeiros MD NO ADDRESS ON FILE Other Screening Mammogram (Primary Dx) Social History Tobacco Use Types Packs/Day Years Used Date Smoking Tobacco: Never Assessed Comments Unknown Sex and Gender Information Value Date Recorded Sex Assigned at Not on file Legal Sex Female 3:33 AM GANG VIBRATOR OPERATOR Gender Identity Not on file Sexual Orientation Not on file documented as of this encounter Plan of Treatment Upcoming Encounters Date Type Department Care Team (Late st Contact Info) Description 10/02/2024 11:45 AM CDT Office Visit [facility] Oncology and Hematology - [place] [address] [place] [address] Dr [address] [place] [address] [place] [address] [place] [address] [address] [place] [address] documented as of this encounter Visit Diagnoses Diagnosis Other screening mammogram- Primary documented in this encounter Care Teams Fluid Pump Operator Relationship Specialty Start Date End Date Abrahan Mcgee MD [address] [place] [address] PCP - General Family Practice 04/03/24 documented as of this encounter
--- OUTSIDE RECORDS SUMMARY | 2024-09-26 13:28 | XMS_ITS | Encounter Summary ---
Author Organization [facility] Address [address] [place] [address] Care Team Providers Care Agents' Records Clerk Name Role Phone Arbahan Mcgee MD Primary Care Provider [phone] Encounter Details Date Type Department Care Team (Latest Contact Info) Description 11/27/2004 Outpatient Historical HIS [facility] ЕКАТЕРИНА Sneed, Oscar Medeiros MD NO ADDRESS ON FILE SCREENING MAMM-MAILG NEOPL NEC (Primary Dx) Social History Tobacco Use Types Packs/Day Years Used Date Smoking Tobacco: Never Assessed Comments Unknown Sex and Gender Information Value Date Recorded Sex Assigned at Not on file Legal Sex Female 3:33 AM OUTSIDE SALESMAN Gender Identity Not on file Sexual Orientation Not on file documented as of this encounter Plan of Treatment Upcoming Encounters Date Type Department Care Team (Late st Contact Info) Description 10/02/2024 11:45 AM CDT Office Visit [facility] Oncology and Hematology - [place] [address] [place] [address] [address] [place] [address] [place] [address] [place] [address] [address] [place] [address] documented as of this encounter Visit Diagnoses Diagnosis Other screening mammogram- Primary documented in this encounter Care Teams Agents' Records Clerk Relationship Specialty Start Date End Date Abrahan Mcgee MD [address] [place] [address] PCP - General Family Practice 04/03/24 documented as of this encounter
--- OUTSIDE RECORDS SUMMARY | 2024-09-26 13:28 | XMS_ITS | Encounter Summary ---
Author Organization Address [address] [place] [address] Care Team Providers Care Automotive Leasing Sales Representative Name Role Phone Abrahan Mcgee MD Primary Care Provider [phone] Encounter Details Date Type Department Care Team (Late st Contact Info) Description 07/13/2003 Outpatient Historical HIS [facility] Meryl Perry MD [address] [address] ABDOMINAL PAIN OTHER SPEC SITE (Primary Dx) Social History Tobacco Use Types Packs/Day Years Used Date Smoking Tobacco: Never Assessed Comments Unknown Sex and Gender Information Value Date Recorded Sex Assigned at Not on file Legal Sex Female 3:33 AM SET UP TECHNICIAN Gender Identity Not on file Sexual Orientation Not on file documented as of this encounter Plan of Treatment Upcoming Encounters Date Type Department Care Team (Late st Contact Info) Description 10/02/2024 11:45 AM CDT Office Visit [facility] Oncology and Hematology - [place] [address] [facility] [address] [place] [address] Prince Mir MD [address] [facility] [address] [place] [address] documented as of this encounter Visit Diagnoses Diagnosis Abdominal pain, other specified site- Primary documented in this encounter Care Teams Automotive Leasing Sales Representative Relationship Specialty Start Date End Date Abrahan Mcgee MD [address] [place] [address] PCP - General Family Practice 04/03/24 documented as of this encounter
--- OUTSIDE RECORDS SUMMARY | 2024-09-26 13:28 | XMS_ITS | Encounter Summary ---
Author Organization [facility] Address [address] [place] [address] Care Team Providers Care Lease Picker Name Role Phone Abrahan Mcgee MD Primary Care Provider [phone] Encounter Details Date Type Department Care Team (Late st Contact Info) Description 02/07/2004 Outpatient Historical HIS [facility] Andre Ernst MD NO ADDRESS ON FILE Social History Tobacco Use Types Packs/Day Years Used Date Smoking Tobacco: Never Assessed Comments Unknown Sex and Gender Information Value Date Recorded Sex Assigned at Not on file Legal Sex Female 3:33 AM VALET ATTENDANT Gender Identity Not on file Sexual Orientation Not on file documented as of this encounter Plan of Treatment Upcoming Encounters Date Type Department Care Team (Late st Contact Info) Description 10/02/2024 11:45 AM CDT Office Visit [facility] Oncology and Hematology - [place] [address] [place] [address] [address] [place] [address] [place] [address] [place] [address] [address] [place] [address] documented as of this encounter Visit Diagnoses Not on filedocumented in this encounter Care Teams Lease Picker Relationship Specialty Start Date End Date Abrahan Mcgee MD [address] [place] [address] PCP - General Family Practice 04/03/24 documented as of this encounter
--- OUTSIDE RECORDS SUMMARY | 2024-09-26 13:28 | XMS_ITS | Encounter Summary ---
Author Organization [facility] Address [address] [place] [address] Care Team Providers Care Electrical Controls Designer Name Role Phone Abrahan Mcgee MD Primary Care Provider [phone] Encounter Details Date Type Department Care Team (Late st Contact Info) Description 09/16/2004 Outpatient Historical HIS [facility] Andre Ernst MD NO ADDRESS ON FILE Social History Tobacco Use Types Packs/Day Years Used Date Smoking Tobacco: Never Assessed Comments Unknown Sex and Gender Information Value Date Recorded Sex Assigned at Not on file Legal Sex Female 3:33 AM COMMUNITY RESOURCE OFFICER Gender Identity Not on file Sexual Orientation Not on file documented as of this encounter Plan of Treatment Upcoming Encounters Date Type Department Care Team (Late st Contact Info) Description 10/02/2024 11:45 AM CDT Office Visit [facility] Oncology and Hematology - [place] [address] [place] [address] [address] [place] [address] [place] [address] [place] [address] [address] [place] [address] documented as of this encounter Visit Diagnoses Not on filedocumented in this encounter Care Teams Electrical Controls Designer Relationship Specialty Start Date End Date Abrahan Mcgee MD [address] [place] [address] PCP - General Family Practice 04/03/24 documented as of this encounter
--- OUTSIDE RECORDS SUMMARY | 2024-09-26 13:28 | XMS_ITS | Encounter Summary ---
Author Organization [facility] Address [address] [place] [address] Care Team Providers Care Fuller Brush Worker Name Role Phone Abrahan Mcgee MD Primary Care Provider [phone] Encounter Details Date Type Department Care Team (Late st Contact Info) Description 02/23/2005 Outpatient Historical [facility] Support Serv. (Adt Cardiology[facility]) [address] [place] [address] Guero Malhotra MD NO ADDRESS ON FILE Social History Tobacco Use Types Packs/Day Years Used Date Smoking Tobacco: Never Assessed Comments Unknown Sex and Gender Information Value Date Recorded Sex Assigned at Not on file Legal Sex Female 3:33 AM CUT ROLL MACHINE OFFBEARER Gender Identity Not on file Sexual Orientation Not on file documented as of this encounter Plan of Treatment Upcoming Encounters Date Type Department Care Team (Late st Contact Info) Description 10/02/2024 11:45 AM CDT Office Visit [facility] Oncology and Hematology - [place] [address] [facility] [address] [place] [address] Prince Mir MD [address] [facility] [address] [place] [address] documented as of this encounter Visit Diagnoses Not on filedocumented in this encounter Care Teams Fuller Brush Worker Relationship Specialty Start Date End Date Abrahan Mcgee MD [address] [place] [address] PCP - General Family Practice 04/03/24 documented as of this encounter
--- OUTSIDE RECORDS SUMMARY | 2024-09-26 13:28 | XMS_ITS | Clinical Summary ---
Author Organization [facility] Address [address] [place] [address] Care Team Providers Care Bedspread Cutter Name Role Phone Luigi Nicole PA-C Primary Care Provider [phone] Luigi Nicole PA-C Unavailable Allergies Active Allergy [...] (eight) hours as needed. 07/08/19 Active ZENPEP 53527-14351 units CAPSULE ENTERIC COATED PARTICLES Take by [...] mouth nightly. Every other month Active Pancrelipase, Vlk-Rrnw-Jhet, [address]2465[address] units CAPSULE ENTERIC COATED PARTICLES Take 50,000 [...] drink = 0.6 oz pur e alcohol) [facility] Utilities Answer Date Recorded In the past [...] any time in the past 12 [facility], were you homeless or living in a nursing home (including now)? No 08/20/2023 Comments No Sex [...] 10:05 AM 08/21/2023 1:30 PM Care Teams Bedspread Cutter Relationship Specialty Start Date End Date Luigi Nicole PA-C [address] [address] PCP - General PHYSICIAN SAW FEEDER 08/20/23 Luigi Nicole PA-C [address] [address] PHYSICIAN SAW FEEDER 08/20/23
--- OUTSIDE RECORDS SUMMARY | 2024-09-26 13:28 | XMS_ITS | Encounter Summary ---
Author Organization [facility] Address [address] [place] [address] Care Team Providers Care Fine Sander Name Role Phone Abrahan Mcgee MD Primary Care Provider [phone] Encounter Details Date Type Department Care Team (Latest Contact Info) Description 08/15/2004 Outpatient Historical HIS [facility] Andre Vidal MD NO ADDRESS ON FILE HYPOPOTASSEMIA (Primary Dx) Social History Tobacco Use Types Packs/Day Years Used Date Smoking Tobacco: Never Assessed Comments Unknown Sex and Gender Information Value Date Recorded Sex Assigned at Not on file Legal Sex Female 3:33 AM ARBORER Gender Identity Not on file Sexual Orientation Not on file documented as of this encounter Plan of Treatment Upcoming Encounters Date Type Department Care Team (Late st Contact Info) Description 10/02/2024 11:45 AM CDT Office Visit [facility] Oncology and Hematology - [place] [address] [facility] [address] [place] [address] Prince Mir MD [address] [facility] [address] [place] [address] documented as of this encounter [...] Primary documented in this encounter Care Teams Fine Sander Relationship Specialty Start Date End Date Abrahan Mcgee MD [address] [place] [address] PCP - General Family Practice 04/03/24 documented as of this encounter
--- OUTSIDE RECORDS SUMMARY | 2024-09-26 13:28 | XMS_ITS | Encounter Summary ---
Author Organization [facility] Address [address] [place] [address] Care Team Providers Care Machine Rug Cleaner Name Role Phone Abrahan Mcgee MD Primary Care Provider [phone] Encounter Details Date Type Department Care Team (Latest Contact Info) Description 01/06/2006 Outpatient Historical HIS [facility] Andre Vidal MD NO ADDRESS ON FILE Cervicalgia (Primary Dx) Social History Tobacco Use Types Packs/Day Years Used Date Smoking Tobacco: Never Assessed Comments Unknown Sex and Gender Information Value Date Recorded Sex Assigned at Not on file Legal Sex Female 3:33 AM BAND CUTTER Gender Identity Not on file Sexual Orientation Not on file documented as of this encounter Plan of Treatment Upcoming Encounters Date Type Department Care Team (Late st Contact Info) Description 10/02/2024 11:45 AM CDT Office Visit [facility] Oncology and Hematology - [place] [address] [place] [address] [address] [place] [address] [place] [address] [place] [address] [address] [place] [address] documented as of this encounter Visit Diagnoses Diagnosis Cervicalgia- Primary documented in this encounter Care Teams Machine Rug Cleaner Relationship Specialty Start Date End Date Abrahan Mcgee MD [address] [place] [address] PCP - General Family Practice 04/03/24 documented as of this encounter
--- OUTSIDE RECORDS SUMMARY | 2024-09-26 13:28 | XMS_ITS | Encounter Summary ---
Author Organization [facility] Address [address] [place] [address] Care Team Providers Care Exhaust Machine Operator Name Role Phone Abrahan Mcgee MD Primary Care Provider [phone] Encounter Details Date Type Department Care Team (Late st Contact Info) Description 12/18/2004 Outpatient Historical HIS [facility] Andre Ernst MD NO ADDRESS ON FILE Social History Tobacco Use Types Packs/Day Years Used Date Smoking Tobacco: Never Assessed Comments Unknown Sex and Gender Information Value Date Recorded Sex Assigned at Not on file Legal Sex Female 3:33 AM HOSPITAL INSURANCE REPRESENTATIVE Gender Identity Not on file Sexual Orientation Not on file documented as of this encounter Plan of Treatment Upcoming Encounters Date Type Department Care Team (Late st Contact Info) Description 10/02/2024 11:45 AM CDT Office Visit [facility] Oncology and Hematology - [place] [address] [place] [address] [address] [place] [address] [place] [address] [place] [address] [address] [place] [address] documented as of this encounter Visit Diagnoses Not on filedocumented in this encounter Care Teams Exhaust Machine Operator Relationship Specialty Start Date End Date bArahan Mcgee MD [address] [place] [address] PCP - General Family Practice 04/03/24 documented as of this encounter
--- OUTSIDE RECORDS SUMMARY | 2024-09-26 13:28 | XMS_ITS | Encounter Summary ---
Author Organization [facility] Address [address] [place] [address] Care Team Providers Care Pediatric Geneticist Name Role Phone Abrahan Mcgee MD Primary Care Provider [phone] Encounter Details Date Type Department Care Team (Late st Contact Info) Description 07/09/2005 Outpatient Historical HIS [facility] Andre Ersnt MD NO ADDRESS ON FILE Social History Tobacco Use Types Packs/Day Years Used Date Smoking Tobacco: Never Assessed Comments Unknown Sex and Gender Information Value Date Recorded Sex Assigned at Not on file Legal Sex Female 3:33 AM SALES AND SERVICE AGENT Gender Identity Not on file Sexual Orientation Not on file documented as of this encounter Plan of Treatment Upcoming Encounters Date Type Department Care Team (Late st Contact Info) Description 10/02/2024 11:45 AM CDT Office Visit [facility] Oncology and Hematology - [place] [address] [place] [address] [address] [place] [address] [place] [address] [place] [address] [address] [place] [address] documented as of this encounter Visit Diagnoses Not on filedocumented in this encounter Care Teams Pediatric Geneticist Relationship Specialty Start Date End Date Abrahan Mcgee MD [address] [place] [address] PCP - General Family Practice 04/03/24 documented as of this encounter
--- OUTSIDE RECORDS SUMMARY | 2024-09-26 13:28 | XMS_ITS | Encounter Summary ---
Author Organization [facility] Address [address] [place] [address] Care Team Providers Care Counseling Case Manager Name Role Phone Abrahan Mcgee MD Primary Care Provider [phone] Encounter Details Date Type Department Care Team (Latest Contact Info) Description 08/15/[address] [facility] Andre Vidal MD NO ADDRESS ON FILE HYPOPOTASSEMIA (Primary Dx) Social History Tobacco Use Types Packs/Day Years Used Date Smoking Tobacco: Never Assessed Comments Unknown Sex and Gender Information Value Date Recorded Sex Assigned at Not on file Legal Sex Female 3:33 AM INSTRUCTOR [place]ER[place]EN Gender Identity Not on file Sexual Orientation Not on file documented as of this encounter Plan of Treatment Upcoming Encounters Date Type Department Care Team (Late st Contact Info) Description 10/02/2024 11:45 AM CDT Office Visit [facility] Oncology and Hematology - [place] [address] [place] [address] [address] [place] [address] [place] [address] [place] [address] [address] [place] [address] documented as of this encounter Visit Diagnoses Diagnosis Hypopotassemia- Primary documented in this encounter Care Teams Counseling Case Manager Relationship Specialty Start Date End Date Abrahan Mcgee MD [address] [place] [address] PCP - General Family Practice 04/03/24 documented as of this encounter
--- OUTSIDE RECORDS SUMMARY | 2024-09-26 13:28 | XMS_ITS | Encounter Summary ---
Author Organization [facility] Address [address] [place] [address] Care Team Providers Care Food And Beverage Assistant Manager Name Role Phone Abrahan Mcgee MD Primary Care Provider [phone] Encounter Details Date Type Department Care Team (Late st Contact Info) Description 11/27/2004 Outpatient Historical HIS [facility] ЕКАТЕРИНА Perry, Meryl Pereira MD [address] [address] [place] [address] ABDOMINAL PAIN RLQ (Primary Dx) Social History Tobacco Use Types Packs/Day Years Used Date Smoking Tobacco: Never Assessed Comments Unknown Sex and Gender Information Value Date Recorded Sex Assigned at Not on file Legal Sex Female 3:33 AM DESK PEN SET ASSEMBLER Gender Identity Not on file Sexual Orientation Not on file documented as of this encounter Plan of Treatment Upcoming Encounters Date Type Department Care Team (Late st Contact Info) Description 10/02/2024 11:45 AM CDT Office Visit [facility] Oncology and Hematology - [place] [address] [facility] [address] [place] [address] Prince Mir MD [address] [facility] [address] [place] [address] documented as of this encounter [...] FETOPROTEIN TUMOR MARKER (11/27/2004 11:54 AM CDT) [facility] ALPHA FETOPROTEIN TUMOR MARKER 2.2 ng/mL INTERFACE SYSTEM Comment: This test was performed using the damntheradio Immulite 2000 Assay. REFERENCE RANGE: <6.1 THE USE OF AFP A TUMOR MARKER IN FEMALES IS NOT RECOMMENDED. Lab test performed by: [facility] [address] [place] [address] EVELINA AMOS MD 11/27/2004 11:5 4 AM CDT Meryl Perry MD CHEMISTRY ORDERABLES Fin al Result INTERFACE SYSTEM Refer to clinic/hospital department * CBC WITH DIFFERENTIAL (11/27/2004 11:54 AM CDT) [facility] NEUTROPHILS 67 45 - 70 % INTERFAC [...] ORDERABLES Fi nal Result Performing Organization Address [facility] de Phone Number INTERFACE [...] ORDERABLES Fi nal Result Performing Organization Address [facility] Phone Number INTERFACE SYSTEM Refer to clinic/hospital department * (ABNORMAL) AMYLASE (11/27/2004 11:54 AM CDT) AMYLASE 141(H) 28 - 100 U/L INTERFACE SYSTEM 11/27/2004 11:5 4 AM CDT Meryl Perry MD CHEMISTRY ORDERABLES Fin al Result Performing Organization Address [facility] Co de Phone Number INTERFACE SYSTEM Refer to clinic/hospital department * (ABNORMAL) LIPASE (11/27/2004 11:54 AM CDT) LIPASE 97(H) 13 - 60 U/L INTERFAC E SYSTEM 11/27/2004 11:5 4 AM CDT Meryl Perry MD CHEMISTRY ORDERABLES Fin alana Result Performing Organization Address [facility] Phone Number INTERFACE SYSTEM Refer to clinic/hospital department * C-REACTIVE PROTEIN (11/27/2004 11:54 AM CDT) CRP 0.5 0.0 - 0.8 mg/dL INTERFACE SYSTEM 11/27/2004 11:5 4 AM CDT Meryl Perry MD CHEMISTRY ORDERABLES Fin alana Result Performing Organization Address [facility] Number INTERFACE SYSTEM Refer to clinic/hospital department [...] ORDERABLES Amarjit warner Result Performing Organization Address [facility] Phone Number INTERFACE SYSTEM Refer to clinic/hospital [...] SYSTEM 11/27/2004 11:5 4 AM CDT Meryl ePrry MD CHEMISTRY ORDERABLES Fin al Result INTERFACE SYSTEM Refer to clinic/hospital department documented in this encounter Visit Diagnoses Diagnosis Abdominal pain, right lower quadrant- Primary documented in this encounter Care Teams Food And Beverage Assistant Manager Relationship Specialty Start Date End Date Abrahan Mcgee MD [address] [place] [address] PCP - General Family Practice 04/03/24 documented as of this encounter
--- OUTSIDE RECORDS SUMMARY | 2024-09-26 13:28 | XMS_ITS | Encounter Summary ---
Author Organization [facility] Address [address] [place] [address] Care Team Providers Care Radio Division Officer Name Role Phone Abrahan Mcgee MD Primary Care Provider [phone] Encounter Details Date Type Department Care Team (Latest Contact Info) Description 06/05/2004 Outpatient Historical HIS [facility] Andre Vidal MD NO ADDRESS ON FILE BENIGN HYPERTENSION (Primary Dx) Social History Tobacco Use Types Packs/Day Years Used Date Smoking Tobacco: Never Assessed Comments Unknown Sex and Gender Information Value Date Recorded Sex Assigned at Not on file Legal Sex Female 3:33 AM DECONTAMINATOR Gender Identity Not on file Sexual Orientation Not on file documented as of this encounter Plan of Treatment Upcoming Encounters Date Type Department Care Team (Late st Contact Info) Description 10/02/2024 11:45 AM CDT Office Visit [facility] Oncology and Hematology - [place] [address] [facility] [address] [place] [address] Prince Mir MD [address] [facility] [address] [place] [address] documented as of this encounter [...] Primary documented in this encounter Care Teams Radio Division Officer Relationship Specialty Start Date End Date Abrahan Mcgee MD [address] [place] [address] PCP - General Family Practice 04/03/24 documented as of this encounter
--- OUTSIDE RECORDS SUMMARY | 2024-09-26 13:28 | XMS_ITS | Encounter Summary ---
Author Organization [facility] Address [address] [place] [address] Care Team Providers Care Robotic Technician Name Role Phone Abrahan Mcgee MD Primary Care Provider [phone] Encounter Details Date Type Department Care Team [...] on file Legal Sex Female 3:33 AM ORACLE MANUFACTURING CONSULTANT Gender Identity Not on file Sexual Orientation Not on file documented as of this encounter Plan of Treatment Upcoming Encounters Date Type Department Care Team (Late st Contact Info) Description 10/02/2024 11:45 AM CDT Office Visit [facility] Oncology and Hematology - [place] [address] [place] [address] Dr [address] [place] [address] Prince Mir MD [address] [place] [address] 100 [place] [address] documented as of this encounter Visit Diagnoses Diagnosis Allergic rhinitis due to pollen- Primary documented in this encounter Care Teams Robotic Technician Relationship Specialty Start Date End Date Abrahan Mcgee MD [address] [place] [address] PCP - General Family Practice 04/03/24 documented as of this encounter
--- OUTSIDE RECORDS SUMMARY | 2024-09-26 13:28 | XMS_ITS | Encounter Summary ---
Author Organization [facility] Address [address] [place] [address] Care Team Providers Care Privacy Compliance Manager Name Role Phone Abrahan Mcgee MD Primary Care Provider [phone] Encounter Details Date Type Department Care Team (Latest Contact Info) Description 10/17/2002 Outpatient Historical HIS [facility] Andre Vidal MD NO ADDRESS ON FILE PURE HYPERCHOLESTEROLEM (Primary Dx) Social History Tobacco Use Types Packs/Day Years Used Date Smoking Tobacco: Never Assessed Comments Unknown Sex and Gender Information Value Date Recorded Sex Assigned at Not on file Legal Sex Female 3:33 AM DIRECTOR PART Gender Identity Not on file Sexual Orientation Not on file documented as of this encounter Plan of Treatment Upcoming Encounters Date Type Department Care Team (Late st Contact Info) Description 10/02/2024 11:45 AM CDT Office Visit [facility] Oncology and Hematology - [place] [address] [place] [address] Dr [address] [place] [address] [place] [address] [place] [address] [address] [place] [address] documented as of this encounter Visit Diagnoses Diagnosis Pure hypercholesterolemia- Primary documented in this encounter Care Teams Privacy Compliance Manager Relationship Specialty Start Date End Date Abrahan Mcgee MD [address] [place] [address] PCP - General Family Practice 04/03/24 documented as of this encounter
--- OUTSIDE RECORDS SUMMARY | 2024-09-26 13:28 | XMS_ITS | Encounter Summary ---
Author Organization [facility] Address [address] [place] [address] Care Team Providers Care Manager Risk Management Name Role Phone Abrahan Mcgee MD Primary Care Provider [phone] Encounter Details Date Type Department Care Team (Latest Contact Info) Description 11/19/2003 Outpatient Historical HIS [facility] Andre Vidal MD NO ADDRESS ON FILE HYPOPOTASSEMIA (Primary Dx) Social History Tobacco Use Types Packs/Day Years Used Date Smoking Tobacco: Never Assessed Comments Unknown Sex and Gender Information Value Date Recorded Sex Assigned at Not on file Legal Sex Female 3:33 AM BARGE LOADER Gender Identity Not on file Sexual Orientation Not on file documented as of this encounter Plan of Treatment Upcoming Encounters Date Type Department Care Team (Late st Contact Info) Description 10/02/2024 11:45 AM CDT Office Visit [facility] Oncology and Hematology - [place] [address] [place] [address] Dr [address] [place] [address] [place] [address] [place] [address] [address] [place] [address] documented as of this encounter Visit Diagnoses Diagnosis Hypopotassemia- Primary documented in this encounter Care Teams Manager Risk Management Relationship Specialty Start Date End Date Abrahan Mcgee MD [address] [place] [address] PCP - General Family Practice 04/03/24 documented as of this encounter
--- OUTSIDE RECORDS SUMMARY | 2024-09-26 13:28 | XMS_ITS | Encounter Summary ---
Author Organization [facility] Address [address] [place] [address] Care Team Providers Care Certified Tower Climber Name Role Phone Abrahan Mcgee MD Primary Care Provider [phone] Encounter Details Date Type Department Care Team (Late st Contact Info) Description 12/01/2002 Outpatient Historical HIS [facility] Berta Monae MD [address] [place], [place] [id number] NONRUPTURED CEREBRAL ANEURYSM (Primary Dx) Social History Tobacco Use Types Packs/Day Years Used Date Smoking Tobacco: Never Assessed Comments Unknown Sex and Gender Information Value Date Recorded Sex Assigned at Not on file Legal Sex Female 3:33 AM BARRELHEAD INSPECTOR Gender Identity Not on file Sexual Orientation Not on file documented as of this encounter Plan of Treatment Upcoming Encounters Date Type Department Care Team (Late st Contact Info) Description 10/02/2024 11:45 AM CDT Office Visit [facility] Oncology and Hematology - [place] [address] [place] [address] Dr [address] [place] [address] Prince Mir MD [address] [facility] [address] [place] [address] documented as of this encounter Visit Diagnoses Diagnosis Cerebral aneurysm, nonruptured- Primary documented in this encounter Care Teams Certified Tower Climber Relationship Specialty Start Date End Date Abrahan Mcgee MD [address] [place] [address] PCP - General Family Practice 04/03/24 documented as of this encounter
--- OUTSIDE RECORDS SUMMARY | 2024-09-26 13:28 | XMS_ITS | Encounter Summary ---
Author Organization [facility] Address [address] [place] [address] Care Team Providers Care Target Aircraft Technician Name Role Phone Abrahan Mcgee MD Primary Care Provider [phone] Encounter Details Date Type Department Care Team (Late st Contact Info) Description 07/30/2005 Outpatient Historical HIS [facility] Andre Ernst MD NO ADDRESS ON FILE Social History Tobacco Use Types Packs/Day Years Used Date Smoking Tobacco: Never Assessed Comments Unknown Sex and Gender Information Value Date Recorded Sex Assigned at Not on file Legal Sex Female 3:33 AM WORKERS COMPENSATION LEGAL SECRETARY Gender Identity Not on file Sexual Orientation Not on file documented as of this encounter Plan of Treatment Upcoming Encounters Date Type Department Care Team (Late st Contact Info) Description 10/02/2024 11:45 AM CDT Office Visit [facility] Oncology and Hematology - [place] [address] [place] [address] Dr [address] [place] [address] [place] [address] [place] [address] [address] [place] [address] documented as of this encounter Visit Diagnoses Not on filedocumented in this encounter Care Teams Target Aircraft Technician Relationship Specialty Start Date End Date Abrahan Mcgee MD [address] [place] [address] PCP - General Family Practice 04/03/24 documented as of this encounter
--- OUTSIDE RECORDS SUMMARY | 2024-09-26 13:28 | XMS_ITS | Encounter Summary ---
Author Organization [facility] Address [address] [place] [address] Care Team Providers Care Full Time Babysitter Name Role Phone Abrahan Mcgee MD Primary Care Provider [phone] Encounter Details Date Type Department Care Team (Late st Contact Info) Description 02/23/2005 Outpatient Historical [facility] [address] [place] [address] Deisy Garcia MD [id number] [place] [address] Social History Tobacco Use Types Packs/Day Years Used Date Smoking Tobacco: Never Assessed Comments Unknown Sex and Gender Information Value Date Recorded Sex Assigned at Not on file Legal Sex Female 3:33 AM SEMICONDUCTOR ASSEMBLER Gender Identity Not on file Sexual Orientation Not on file documented as of this encounter Plan of Treatment Upcoming Encounters Date Type Department Care Team (Late st Contact Info) Description 10/02/2024 11:45 AM CDT Office Visit [facility] Oncology and Hematology - [place] [address] [facility] [address] [place] [address] Prince Mir MD [address] [facility] [address] [place] [address] documented as of this encounter Visit Diagnoses Not on filedocumented in this encounter Care Teams Full Time Babysitter Relationship Specialty Start Date End Date Abrahan Mcgee MD [address] [place] [address] PCP - General Family Practice 04/03/24 documented as of this encounter
--- OUTSIDE RECORDS SUMMARY | 2024-09-26 13:28 | XMS_ITS | Encounter Summary ---
Author Organization [facility] Address [address] [place] [address] Care Team Providers Care Outsole Skiver Name Role Phone Abrahan Mcgee MD Primary Care Provider [phone] Encounter Details Date Type Department Care Team (Late st Contact Info) Description 07/06/2003 Outpatient Historical [facility] - [place] [address] [place] [address] Dr [address] [place] [address] [place] [address] [place] [address] [address] [place] [address] documented as of this encounter Visit Diagnoses Not on filedocumented in this encounter Care Teams Outsole Skiver Relationship Specialty Start Date End Date Abrahan Mcgee MD [address] [place] [address] PCP - General Family Practice 04/03/24 documented as of this encounter
--- OUTSIDE RECORDS SUMMARY | 2024-09-26 13:28 | XMS_ITS | Encounter Summary ---
Author Organization [facility] Address [address] [place] [address] Care Team Providers Care Suede Cleaner Name Role Phone Abrahan Mcgee MD Primary Care Provider [phone] Encounter Details Date Type Department Care Team [...] file Legal Sex Female 3:33 AM WATER PUMPING STATION ENGINEER Gender Identity Not on file Sexual Orientation Not on file documented as of this encounter Plan of Treatment Upcoming Encounters Date Type Department Care Team (Late st Contact Info) Description 10/02/2024 11:45 AM CDT Office Visit [facility] Oncology and Hematology - [place] [address] [place] [address] Dr [address] [place] [address] Prince Mir MD [address] [place] [address] [address] [place] [address] documented as of this encounter Visit Diagnoses Diagnosis Unspecified symptom associated with female genital organs- Primary documented in this encounter Care Teams Suede Cleaner Relationship Specialty Start Date End Date Abrahan Mcgee MD [address] [place] [address] PCP - General Family Practice 04/03/24 documented as of this encounter
--- OUTSIDE RECORDS SUMMARY | 2024-09-26 13:28 | XMS_ITS | Encounter Summary ---
Author Organization [facility] Address [address] [place] [address] Care Team Providers Care Auto Parts Delivery Driver Name Role Phone Abrahan Mcgee MD Primary Care Provider [phone] Encounter Details Date Type Department Care Team (Latest Contact Info) Description 03/06/2004 Outpatient Historical HIS [facility] Andre Vdial MD NO ADDRESS ON FILE HYPOPOTASSEMIA (Primary Dx) Social History Tobacco Use Types Packs/Day Years Used Date Smoking Tobacco: Never Assessed Comments Unknown Sex and Gender Information Value Date Recorded Sex Assigned at Not on file Legal Sex Female 3:33 AM CATEGORY DIRECTOR Gender Identity Not on file Sexual Orientation Not on file documented as of this encounter Plan of Treatment Upcoming Encounters Date Type Department Care Team (Late st Contact Info) Description 10/02/2024 11:45 AM CDT Office Visit [facility] Oncology and Hematology - [place] [address] [facility] [address] [place] [address] Prince Mir MD [address] [facility] [address] [place] [address] documented as of this encounter Procedures Procedure Name Priority Date/Time Associated Diagnosis Comments COMPREHENSIVE METABOLIC PANEL Routine 03/06/2004 11:12 AM CATEGORY DIRECTOR documented in this encounter Results * (ABNORMAL) COMPREHENSIVE METABOLIC PANEL (03/06/2004 11:12 AM CATEGORY DIRECTOR) GLUCOSE 95 65 - 109 mg/dL INTERFACE [...] by 2nd methodology. 03/06/2004 11:1 2 AM CATEGORY DIRECTOR us Andre Ernst MD CHEMISTRY ORDERABLES Final Res ult INTERFACE SYSTEM Refer to clinic/hospital department documented in this encounter Visit Diagnoses Diagnosis Hypopotassemia- Primary documented in this encounter Care Teams Auto Parts Delivery Driver Relationship Specialty Start Date End Date Abrahan Mcgee MD [address] [place] [address] PCP - General Family Practice 04/03/24 documented as of this encounter
--- OUTSIDE RECORDS SUMMARY | 2024-09-26 13:28 | XMS_ITS | Encounter Summary ---
Author Organization [facility] Address [address] [place] [address] Care Team Providers Care General Purchasing Agent Name Role Phone Abrahan Mcgee MD Primary Care Provider [phone] Encounter Details Date Type Department Care Team (Late st Contact Info) Description 07/23/2003 Outpatient Historical HIS [facility] Meryl Perry MD [address] [facility] [place] [address] [address] UTERINE LEIOMYOMA NOS (Primary Dx) Social History Tobacco Use Types Packs/Day Years Used Date Smoking Tobacco: Never Assessed Comments Unknown Sex and Gender Information Value Date Recorded Sex Assigned at Not on file Legal Sex Female 3:33 AM GENERAL OPERATOR Gender Identity Not on file Sexual Orientation Not on file documented as of this encounter Plan of Treatment Upcoming Encounters Date Type Department Care Team (Late st Contact Info) Description 10/02/2024 11:45 AM CDT Office Visit [facility] Oncology and Hematology - [place] [address] [facility] [address] [place] [address] Prince Mir MD [address] [facility] [address] [place] [address] documented as of this encounter Visit Diagnoses Diagnosis Leiomyoma of uterus, unspecified- Primary documented in this encounter Care Teams General Purchasing Agent Relationship Specialty Start Date End Date Abrahan Mcgee MD [address] [place] [address] PCP - General Family Practice 04/03/24 documented as of this encounter
--- OUTSIDE RECORDS SUMMARY | 2024-09-26 13:28 | XMS_ITS | Clinical Summary ---
Author Organization [facility] Care Team Providers Care Resource Agent Name Role Phone Unavailable Primary Care Provider [...]
--- OUTSIDE RECORDS SUMMARY | 2024-09-26 13:28 | XMS_ITS | Encounter Summary ---
Author Organization [facility] Address [address] [place] [address] Care Team Providers Care Fast Food Shift Lead Name Role Phone Abrahan Mcgee MD Primary Care Provider [phone] Encounter Details Date Type Department Care Team (Latest Contact Info) Description 07/06/2003 Outpatient Historical HIS [facility] Andre Vidal MD NO ADDRESS ON FILE BENIGN HYPERTENSION (Primary Dx) Social History Tobacco Use Types Packs/Day Years Used Date Smoking Tobacco: Never Assessed Comments Unknown Sex and Gender Information Value Date Recorded Sex Assigned at Not on file Legal Sex Female 3:33 AM PERCH MENDER Gender Identity Not on file Sexual Orientation Not on file documented as of this encounter Plan of Treatment Upcoming Encounters Date Type Department Care Team (Late st Contact Info) Description 10/02/2024 11:45 AM CDT Office Visit [facility] Oncology and Hematology - [place] [address] [place] [address] Dr [address] [place] [address] [place] [address] [place] [address] [address] [place] [address] documented as of this encounter Visit Diagnoses Diagnosis Essential hypertension, benign- Primary documented in this encounter Care Teams Fast Food Shift Lead Relationship Specialty Start Date End Date Abrahan Mcgee MD [address] [place] [address] PCP - General Family Practice 04/03/24 documented as of this encounter
--- OUTSIDE RECORDS SUMMARY | 2024-09-26 13:28 | XMS_ITS | Encounter Summary ---
Author Organization [facility] Address [address] [place] [address] Care Team Providers Care Crop Or Grain Farmworker Name Role Phone Abrahan Mcgee MD Primary Care Provider [phone] Encounter Details Date Type Department Care Team (Latest Contact Info) Description 06/11/2005 Outpatient Historical HIS [facility] Andre Vidal MD NO ADDRESS ON FILE Headache (Primary Dx) Social History Tobacco Use Types Packs/Day Years Used Date Smoking Tobacco: Never Assessed Comments Unknown Sex and Gender Information Value Date Recorded Sex Assigned at Not on file Legal Sex Female 3:33 AM PATIENT SAFETY COORDINATOR Gender Identity Not on file Sexual Orientation Not on file documented as of this encounter Plan of Treatment Upcoming Encounters Date Type Department Care Team (Late st Contact Info) Description 10/02/2024 11:45 AM CDT Office Visit [facility] Oncology and Hematology - [place] [address] [facility] [address] [place] [address] Prince Mir MD [address] [facility] [address] [place] [address] documented as of this [...] ORDERABLES Final Re sult Performing Organization Address [facility] de Phone Number INTERFACE SYSTEM [...] ORDERABLES Final Re sult Performing Organization Address [facility] Co de Phone Number INTERFACE SYSTEM Refer [...] Headache documented in this encounter Care Teams Crop Or Grain Farmworker Relationship Specialty Start Date End Date Abrahan Mcgee MD [address] [place] [address] PCP - General Family Practice 04/03/24 documented as of this encounter
--- OUTSIDE RECORDS SUMMARY | 2024-09-26 13:28 | XMS_ITS | Encounter Summary ---
Author Organization [facility] Address [address] [place] [address] Care Team Providers Care Continuity Tester Name Role Phone Abrahan Mcgee MD Primary Care Provider [phone] Encounter Details Date Type Department Care Team (Late st Contact Info) Description 02/24/2005 Outpatient Historical [facility] [address] [place] [address] Carmine Morales MD NO ADDRESS ON FILE Social History Tobacco Use Types Packs/Day Years Used Date Smoking Tobacco: Never Assessed Comments Unknown Sex and Gender Information Value Date Recorded Sex Assigned at Not on file Legal Sex Female 3:[address]PARTMENT DISPATCHER Gender Identity Not on file Sexual Orientation Not on file documented as of this encounter Plan of Treatment Upcoming Encounters Date Type Department Care Team (Late st Contact Info) Description 10/02/2024 11:45 AM CDT Office Visit [facility] Oncology and Hematology - [place] [address] [facility] [address] [place] [address] Prince Mir MD [address] [facility] [address] [place] [address] documented as of this encounter Visit Diagnoses Not on filedocumented in this encounter Care Teams Continuity Tester Relationship Specialty Start Date End Date Abrahan Mcgee MD [address] [place] [address] PCP - General Family Practice 04/03/24 documented as of this encounter
--- OUTSIDE RECORDS SUMMARY | 2024-09-26 13:28 | XMS_ITS | Encounter Summary ---
Author Organization [facility] Address [address] [place] [address] Care Team Providers Care Dairy Grazer Name Role Phone Abrahan Mcgee MD Primary Care Provider [phone] Encounter Details Date Type Department Care Team (Latest Contact Info) Description 02/07/2004 Outpatient Historical HIS [facility] Andre Vidal MD NO ADDRESS ON FILE BENIGN HYPERTENSION (Primary Dx) Social History Tobacco Use Types Packs/Day Years Used Date Smoking Tobacco: Never Assessed Comments Unknown Sex and Gender Information Value Date Recorded Sex Assigned at Not on file Legal Sex Female 3:33 AM FILM PROCESSOR Gender Identity Not on file Sexual Orientation Not on file documented as of this encounter Plan of Treatment Upcoming Encounters Date Type Department Care Team (Late st Contact Info) Description 10/02/2024 11:45 AM CDT Office Visit [facility] Oncology and Hematology - [place] [address] [place] [address] Dr [address] [place] [address] [place] [address] [place] [address] [address] [place] [address] documented as of this encounter Visit Diagnoses Diagnosis Essential hypertension, benign- Primary documented in this encounter Care Teams Dairy Grazer Relationship Specialty Start Date End Date Abrahan Mcgee MD [address] [place] [address] PCP - General Family Practice 04/03/24 documented as of this encounter
[2024-09-26 14:24] LABS: Hematocrit 38.6 % (37.0-47.0); Hemoglobin 12.8 g/dL (12.0-15.0); Mean Corpuscular HGB Conc 33.2 g/dl (32-36); Mean Corpuscular Hemoglobin 31.8 pg (26-34); Mean Corpuscular Volume 96.0 fl (80-100); Platelet Count Result 216 k/mm3 (150-375); Red Blood Count 4.02 M/mm3 (4.2-5.4); White Blood Count 6.7 K/mm3 (4.5-10.0)
[2024-09-26 17:18] LABS: Alanine Aminotransferase 16 U/L (6-35); Albumin Level 4.3 g/dL (3.5-5.1); Alkaline Phosphatase 120 U/L (38-126); Anion Gap 7 mmol/L (4-12); Aspartate Amino Transferase 40 U/L (14-36); Bilirubin,Total 0.5 mg/dL (0.2-1.3); Blood Urea Nitrogen 12 mg/dL (7-17); Calcium 10.7 mg/dL (8.4-10.2); Carbon Dioxide 27 mmol/L (22-30); Chloride 104 mmol/L (98-107); Estimated Glomerular Filt Rate > 60; Glucose 100 mg/dL (65-110); Potassium 4.5 mmol/L (3.4-5.0); Sodium 138 mmol/L (137-145); Total Protein 7.6 g/dL (6.3-8.2)
[2024-09-26 21:42] LABS: Vitamin B12 465.0 pg/mL (239-931)
[2024-09-26 21:47] LABS: Iron 114 ug/dL (37-170)
[2024-09-26 21:56] LABS: Percent Iron Saturation 35 % (20-50)
== END 2024-09-26 13:24 | disposition home or self-care (01) ==
PROVIDERS: PCP Family Medicine; Visit Provider Nurse Practitioner Family
DX: R53.1 Weakness (principal); R42 Dizziness and giddiness; E55.9 Vitamin D deficiency, unspecified; R53.83 Other fatigue; D50.9 Iron deficiency anemia, unspecified
CPT/HCPCS: 36415; 80053; 82607; 82746; 83540; 83550; 85027

== ENCOUNTER 2024-09-28 19:15 | Emergency (ER) | payer MEDICARE, SELFPAY ==
--- NOTE | ~2024-09-28 | CT_ITS ---
EXAMINATION: CT brain wo con DATE: 09/28/2024 20:29 INDICATION: Headache and dizziness TECHNIQUE: Computed tomography (CT) of the head was performed without intravenous contrast. The dose- length product was 681.00 mGy-cm. Automated exposure control and iterative reconstruction technique w ere employed. COMPARISON: None FINDINGS: Generalized atrophy. There are scattered moderate periventricular and subcortical white mat ter changes, most likely related to small vessel ischemic disease (microangiopathy). No acute intracr anial hemorrhage, infarction, mass or mass effect. No ventriculomegaly or midline shift. Basilar cist erns are patent. There is intracranial atherosclerosis. Paranasal sinuses and mastoids are pneumatize d. No depressed skull fractures. IMPRESSION: 1. No acute intracranial abnormality. Reviewed, dictated and finalized at location B.
--- OUTSIDE RECORDS SUMMARY | 2024-09-28 19:18 | XMS_ITS | Encounter Summary ---
Author Organization [facility] Address [address] [facility] Attn: Epic Prelude ADT [place] [address] Care Team Providers Care Metal Refiner Name Role Phone Abrahan Mcgee MD Primary Care Provider [phone] Encounter Details Date Type Department Care Team (Late st Contact Info) Description 07/31/1991 Outpatient Historical Andre Ernst MD NO ADDRESS ON FILE Social History Tobacco Use Types Packs/Day Years Used Date Smoking Tobacco: Never Assessed Comments Unknown Sex and Gender Information Value Date Recorded Sex Assigned at Not on file Legal Sex Female 3:33 AM MANAGER MANUFACTURING Gender Identity Not on file Sexual Orientation Not on file documented as of this encounter Plan of Treatment Upcoming Encounters Date Type Department Care Team (Late st Contact Info) Description 10/02/2024 11:45 AM CDT Office Visit [facility] Oncology and Hematology - [place] [address] [place] [address] [address] [place] [address] Prince Mir MD [address] [place] [address] [address] [place] [address] documented as of this encounter Visit Diagnoses Not on filedocumented in this encounter Care Teams Metal Refiner Relationship Specialty Start Date End Date Abrahan Mcgee MD [address] [place] [address] PCP - General Family Practice 04/03/24 documented as of this encounter
--- OUTSIDE RECORDS SUMMARY | 2024-09-28 19:18 | XMS_ITS | Encounter Summary ---
Author Organization [facility] Address [address] [facility] Attn: Epic Prelude ADT [place] SP[place]OW [address] Care Team Providers Care Mitigation Supervisor Name Role Phone Abrahan Mcgee MD [...] on file Legal Sex Female 3:33 AM INTELLIGENCE OPERATIONS SPECIALIST Gender Identity Not on file Sexual Orientation Not on file documented as of this encounter Plan of Treatment Upcoming Encounters Date Type Department Care Team (Late st Contact Info) Description 10/02/2024 11:45 AM CDT Office Visit [facility] Oncology and Hematology - [place] [address] [place] [address] [address] [place] [address] Prince Mir MD [address] [place] [address] [address] [place] [address] documented as of this encounter Visit Diagnoses Not on filedocumented in this encounter Care Teams Mitigation Supervisor Relationship Specialty Start Date End Date Abrahan Mcgee MD [address] [place] [address] PCP - General Family Practice 04/03/24 documented as of this encounter
--- OUTSIDE RECORDS SUMMARY | 2024-09-28 19:18 | XMS_ITS | Encounter Summary ---
Author Organization [facility] Address [address] [facility] Attn: Epic Prelude ADT [place] SPARROW [address] Care Team Providers Care Loading Manager Name Role Phone Abrahan Mcgee MD Primary Care Provider [phone] Encounter Details Date Type Department Care Team (Late st Contact Info) Description 05/03/1990 Outpatient Historical Andre Ernst MD NO ADDRESS ON FILE Social History Tobacco Use Types Packs/Day Years Used Date Smoking Tobacco: Never Assessed Comments Unknown Sex and Gender Information Value Date Recorded Sex Assigned at Not on file Legal Sex Female 3:33 AM CRAFT MANAGER Gender Identity Not on file Sexual Orientation Not on file documented as of this encounter Plan of Treatment Upcoming Encounters Date Type Department Care Team (Late st Contact Info) Description 10/02/2024 11:45 AM CDT Office Visit [facility] Oncology and Hematology - [place] [address] [place] [address] [address] [place] [address] Prince Mir MD [address] [place] [address] [address] [place] [address] documented as of this encounter Visit Diagnoses Not on filedocumented in this encounter Care Teams Loading Manager Relationship Specialty Start Date End Date Abrahan Mcgee MD [address] [place] [address] PCP - General Family Practice 04/03/24 documented as of this encounter
--- OUTSIDE RECORDS SUMMARY | 2024-09-28 19:19 | XMS_ITS | Encounter Summary ---
Author Organization [facility] Address [address] [place] [address] Care Team Providers Care Design Specialist Name Role Phone Abrahan Mcgee MD Primary Care Provider [phone] Encounter Details Date Type Department Care Team (Latest Contact Info) Description 08/15/2002 Outpatient Historical [facility] Andre Vidal MD NO ADDRESS ON FILE JOINT PAIN-L/LEG (Primary Dx) Social History Tobacco Use Types Packs/Day Years Used Date Smoking Tobacco: Never Assessed Comments Unknown Sex and Gender Information Value Date Recorded Sex Assigned at Not on file Legal Sex Female 3:33 AM PAINT SPRAY TENDER Gender Identity Not on file Sexual Orientation Not on file documented as of this encounter Plan of Treatment Upcoming Encounters Date Type Department Care Team (Late st Contact Info) Description 10/02/2024 11:45 AM CDT Office Visit [facility] Oncology and Hematology - [place] [address] [place] [address] [address] [place] [address] Prince Mir MD [address] [facility] [address] [place] [address] documented as of this encounter Visit Diagnoses Diagnosis Pain in joint, lower leg- Primary documented in this encounter Care Teams Design Specialist Relationship Specialty Start Date End Date Abrahan Mcgee MD [address] [place] [address] PCP - General Family Practice 04/03/24 documented as of this encounter
--- OUTSIDE RECORDS SUMMARY | 2024-09-28 19:19 | XMS_ITS | Encounter Summary ---
Author Organization [facility] Address [address] [facility] Attn: Epic Prelude ADT [place] SPARROW [address] Care Team Providers Care Flask Handler Name Role Phone Abrahan Mcgee MD Primary [...] on file Legal Sex Female 3:33 AM FOAM RUBBER MIXER Gender Identity Not on file Sexual Orientation Not on file documented as of this encounter Plan of Treatment Upcoming Encounters Date Type Department Care Team (Late st Contact Info) Description 10/02/2024 11:45 AM CDT Office Visit [facility] Oncology and Hematology - [place] [address] [place] [address] [address] [place] [address] Prince Mir MD [address] [place] [address] [address] [place] [address] documented as of this encounter Visit Diagnoses Not on filedocumented in this encounter Care Teams Flask Handler Relationship Specialty Start Date End Date Abrahan Mcgee MD [address] [place] [address] PCP - General Family Practice 04/03/24 documented as of this encounter
--- OUTSIDE RECORDS SUMMARY | 2024-09-28 19:19 | XMS_ITS | Encounter Summary ---
Author Organization [facility] Address [address] [facility] [place] [address] Care Team Providers Care Head Sulfide Operator Name Role Phone Abrahan Mcgee MD Primary Care Provider [phone] Encounter Details Date Type Department Care Team (Late st Contact Info) Description 08/13/2021 Lab Requisition [facility] [address] [place] [address] Jose G Llamas MD [address] [place] [address] Social History Tobacco Use Types Packs/Day Years Used Date Smoking Tobacco: Never Assessed Comments Unknown Sex and Gender Information Value Date Recorded Sex Assigned at Not on file Legal Sex Female 6:23 PM INSTRUMENT REPAIRER Gender Identity Not on file Sexual Orientation Not on file documented as of this encounter Plan of Treatment Not on file documented as of this encounter Procedures Procedure Name Priority Date/Time Associated Diagnosis Comments DERMATOPATHOLOGY Routine 08/12/2021 12:0 0 AM CDT documented in this encounter Results * DERMATOPATHOLOGY (08/12/2021 12:00 AM CDT) Case Report Dermatopathology Report Case: [id number] Authorizing Provider: Jose G Llamas MD Collected: 08/12/2021 12:00 AM Ordering Location: [facility] Received: 08/13/2021 10:45 AM Pathologist: [...] specimen consists of a shave biopsy measuring [id number]. Jar 0. 2 10:59 AM CDT DERMATOPATHOLOGY [...] characteristic determined by the Dermatopathology Laboratory at [facility], directed by Dr. Troy Mckeon. These tests need not be, and therefore are not, approved by the [place] Food and Drug Administration. The tests are used for clinical purposes. Billing Codes Specimen Charges Stain Charges 32852 1 2 10:59 AM CDT DERMATOPATHOLOGY LABORATORY Embedded Images 2 10:59 AM CDT DERMATOPATHOLOGY LABORATORY Pathology/Cytolog y TISSUE SPECIMEN FROM SKIN / Unknown 08/12/2021 08/13/2021 10:45 AM CDT us Jose G Llamas MD LAB - PATHOLOGY/CYTOLOGY ORD ERABLES Final Result DERMATOPATHOLOGY LABORATORY [facility] - Department of Dermatology [address], [address] [phone] documented in this encounter Visit Diagnoses Not on filedocumented in this encounter Care Teams Head Sulfide Operator Relationship Specialty Start Date End Date Abrahan Mcgee MD [address] [place] [address] PCP - General 07/23/09 documented as of this encounter
--- OUTSIDE RECORDS SUMMARY | 2024-09-28 19:19 | XMS_ITS | Encounter Summary ---
Author Organization [facility] Address [address] [place] [address] Care Team Providers Care Appliance Fixer Name Role Phone Krishna Medina MD Primary Care Provider [phone] Reason for Visit * Diagnostic Imaging (Routine) - Closed Specialty Diagnoses / Procedures Referred By Contac t Referred To Contact Procedures Breast Imaging Screening Outside Reference Aft, Sweta Gleason MD PhD [address] [place] [address] Phone: tel: fax: Referral ID Status Reason Start Date Expiration Date Visits Re quested Visits Authorized [id number] Closed 01/19/2022 02/18/2023 1 1 Encounter Details Date Type Department Care Team (Late st Contact Info) Description 07/23/2017 Hospital Encounter [facility] [address] [place], [place] [id number] Social History Tobacco Use Types Packs/Day Years [...] on file Legal 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:42 PM BATCH TRUCKER Gender Identity Not on file Sexual Orientation [...] CDT) Impressions [facility] - 01/19/2022 10:55 AM BATCH TRUCKER These images are for Reference purposes only and have not been reviewed by [facility]. There will be no report generated by a [facility] Radiologist. Narrative [facility] - 01/19/2022 10:55 AM BATCH TRUCKER EXAMINATION: Images For Reference Purposes Only us Sweta Conteh MD PhD IMG MAMMO PROCEDURES Final Result [facility] documented in this encounter Visit Diagnoses Not on filedocumented in this encounter Care Teams Appliance Fixer Relationship Specialty Start Date End Date Krishna Medina MD [address] [address] PCP - General 10/15/16 03/16/19 documented as of this encounter
--- OUTSIDE RECORDS SUMMARY | 2024-09-28 19:19 | XMS_ITS | Referral Summary ---
Author Organization [facility] Address [address] [facility] [place] [address] Care Team Providers Care Sack Department Supervisor Name Role Phone Krishna Medina MD Unavailable [phone] Lina Yates NP Unavailable [phone] Abrahan Mcgee MD Primary Care Provider Encounters Date Type Department Care Team Description 09/15/2024 Telephone [facility] Ophthalmology [address] [place] [address] Joshua Chan, OD Same day 09/15/2024 2:45 PM CDT Office Visit [facility] LASIK Surgery [place] ([facility]) [address] [facility] 2nd Floor, [address] [place] [address] [...] 2021 Assessment & Plan (02/02/2022 4:10 PM JOINT CREASER): Well healed. Removed BCL today without complications. [...] 04/28/2019 Assessment & Plan (04/28/2019 12:28 PM JOINT CREASER): Monitor. Discussed signs and symptoms of Retinal tears or detachments. Pt understands to call immediately if noted. Subjective vision disturbance 04/28/2019 Assessment & Plan (04/28/2019 12:29 PM JOINT CREASER): Seeing pink dots No hemorrhages or retinal [...] changes. Assessment & Plan (04/28/2019 12:27 PM JOINT CREASER): Monitor closely Retinal hole of left eye [...] on file Legal 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:42 PM JOINT CREASER Gender Identity Not on file Sexual Orientation [...] Plan of Treatment Not on file Insurance [facility] MEDICARE [facility] MEDICARE Address: [facility] [id number] [place] [id number] T MEDICARE [facility] MEDICARE Advance Directives For more information, please contact: [phone] * Full Code (Latest Code Status on File) Date Activated Date Inactivated Comments 11/10/2021 10:25 AM 11/10/2021 3:44 PM * Full Code Date Activated Date Inactivated Comments 09/06/2019 9:17 AM 09/06/2019 3:17 PM * Full Code Date Activated Date Inactivated Comments 07/11/2018 9:22 AM 07/11/2018 4:10 PM Care Teams Sack Department Supervisor Relationship Specialty Start Date End Date Abrahan Mcgee MD [address] [place] [address] PCP - General Family Medicine 06/06/24 Krishna Medina MD [address] [address] 03/17/19 Lina Yates NP [address] [address] Nurse Practitioner 11/12/22
--- OUTSIDE RECORDS SUMMARY | 2024-09-28 19:19 | XMS_ITS | Patient Health Record ---
Author Organization [facility] Address [address] [facility] [address] [place] [address] Care Team Providers Care Perinatal Social Worker Name Role Phone Luigi Peng Primary Care Provider Dhara MURCIA PATIENT ADMITTING REPRESENTATIVE, MICHAELLE Unavailable [phone] Allergies Allergen (clinical drug ingredient) Drug/Non Drug [...] tablet Orally Twice a day Unknown Zenpep [id number] UNIT TAKE 2 CAPSULES BY MOUTH WITH [...] Problem Gastro-esophagea l reflux disease without esophagitis (247835798) Gastro-esophage al reflux disease without esophagitis (K21.9) Active confirmed Problem Constipation (72862878) Constipation, unspecified (K59.00) Active confirmed Problem Spasm of sphincter of Oddi (71446850) Spasm of sphincter of Oddi (K83.4) Active confirmed Problem Cyst of pancreas (30051553) Cyst of pancreas (K86.2) Active confirmed Encounters Encounter Location Date Provider Diagnosis [facility] [address] [place] [address] 11/02/2023 MICHAELLE MURCIA Plan Of Treatment Pending Test Test Name Order Date Esophagogastroduodenoscopy (EGD) 020 Esophagogastroduodenoscopy (EGD) 020 Insurance Providers Payer Name Payer Address Payer Phone Subscriber Number Group Number Insured Name Patient Relationship to Insured Coverage Start Date Coverage End Date [employer] Medicare Advantage PPO [address] [address] [place] [address] [phone] [id number] Marshal Sanders Self - patient is the insured Medical (General) History Medical History History ICD Code Arthritis GERD Depression 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 Ha - chinmay escobedo 2007 and normal. Hx. of polyps in past. Colonoscopy reportedly 2012 - no report available, [...] changes of the pancreatic duct also noted. Biliary stent left in place and removed 03/20/08 was noted resolution of biliary and pancreatic stenosis, morphologic changes of the pain duct stone noted. EUS on August 19, 2007 with [...]
--- OUTSIDE RECORDS SUMMARY | 2024-09-28 19:19 | XMS_ITS | Encounter Summary ---
Author Organization [facility] Address 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 Gender Identity Not on file Sexual Orientation Not on file documented as of this encounter Plan of Treatment Upcoming Encounters Date Type Department Care Team (Late st Contact Info) Description 10/02/2024 11:45 AM CDT Office Visit [facility] Oncology and Hematology - [place] [address] [place] [address] [address] [place] [address] [place] [address] [place] [address] [address] [place] [address] documented as of this encounter Visit Diagnoses Not on filedocumented in this encounter Care Teams Furniture Maker Relationship Specialty Start Date End Date Abrahan Mcgee MD [address] [place] [address] PCP - General Family Practice 04/03/24 documented as of this encounter
--- OUTSIDE RECORDS SUMMARY | 2024-09-28 19:19 | XMS_ITS | Clinical Summary ---
Author Organization [facility] Address [address] [place] [address] Care Team Providers Care Car Changer Name Role Phone Krishna Medina MD Unavailable [phone] Lina Yates NP Unavailable [phone] Abrahan Mcgee MD Primary Care Provider [phone] Allergies Active Allergy Reactions Criticality Noted Date [...] 2021 Assessment & Plan (02/02/2022 4:10 PM MARINE MAMMAL TRAINER): Well healed. Removed BCL today without complications. [...] 04/28/2019 Assessment & Plan (04/28/2019 12:28 PM MARINE MAMMAL TRAINER): Monitor. Discussed signs and symptoms of Retinal tears or detachments. Pt understands to call immediately if noted. Subjective vision disturbance 04/28/2019 Assessment & Plan (04/28/2019 12:29 PM MARINE MAMMAL TRAINER): Seeing pink dots No hemorrhages or retinal [...] changes. Assessment & Plan (04/28/2019 12:27 PM MARINE MAMMAL TRAINER): Monitor closely Retinal hole of left eye [...] Description 09/15/2024 2:45 PM CDT Office Visit [facility] LASIK Surgery [place] ([facility]) [address] [facility] 2[address] Floor, [address] [place] [address] Joshua Chan, OD Foreign body of left conjunctiva, initial encounter (Primary Dx); Intermediate stage nonexudative age-related macular degeneration of both eyes 09/15/2024 Telephone [facility] Ophthalmology [facility] [place] [address] Joshua Chan, OD Same day [...] on file Legal 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:42 PM MARINE MAMMAL TRAINER Gender Identity Not on file Sexual Orientation [...] Completed 019, 11/29/2016, 10/10/2014 Insurance [employer] MEDICARE [facility] MEDICARE [facility] MEDICARE Advance Directives For more information, please contact: [phone] * Full Code (Latest Code Status on File) Date Activated Date Inactivated Comments 11/10/2021 10:25 AM 11/10/2021 3:44 PM * Full Code Date Activated Date Inactivated Comments 09/06/2019 9:17 AM 09/06/2019 3:17 PM * Full Code Date Activated Date Inactivated Comments 07/11/2018 9:22 AM 07/11/2018 4:10 PM Care Teams Car Changer Relationship Specialty Start Date End Date Abrahan Mcgee MD [address] [place] [address] PCP - General Family Medicine 06/06/24 Krishna Medina MD [address] [facility] [address] [place] [address] 03/17/19 Lina Yates NP [address] [address] Nurse Practitioner 11/12/22
--- OUTSIDE RECORDS SUMMARY | 2024-09-28 19:19 | XMS_ITS | Encounter Summary ---
Author Organization [facility] Healthcare Address [address] [place] [address] Care Team Providers Care Registered Nurse Renal Name Role Phone Krishna Medina MD Primary Care Provider [phone] Krishna Medina MD Unavailable [phone] Reason for Visit * Diagnostic Imaging (Routine) - Closed Specialty Diagnoses / Procedures Referred By Contac t Referred To Contact Procedures Breast Imaging Screening Outside Reference Aft, Sweta Gleason MD PhD [address] [place] [address] Phone: tel: fax: Referral ID Status Reason Start Date Expiration Date Visits Re quested Visits Authorized [id number] Closed 01/19/2022 02/18/2023 1 1 Encounter Details Date Type Department Care Team (Late st Contact Info) Description 09/25/2019 Hospital Encounter [facility] Radiology [facility] [address] [place] [id number] Social History Tobacco Use Types Packs/Day Years [...] on file Legal 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:42 PM INVENTORY TRANSCRIBER Gender Identity Not on file Sexual Orientation [...] CDT) Impressions [facility] - 01/19/2022 11:03 AM INVENTORY TRANSCRIBER These images are for Reference purposes only and have not been reviewed by [facility]. There will be no report generated by a [facility] Radiologist. Narrative [facility] - 01/19/2022 11:03 AM INVENTORY TRANSCRIBER EXAMINATION: Images For Reference Purposes Only us Sweta Conteh MD PhD IMG MAMMO PROCEDURES Final Result [facility] documented in this encounter Visit Diagnoses Not on filedocumented in this encounter Care Teams Registered Nurse Renal Relationship Specialty Start Date End Date Krishna Medina MD [address] [address] PCP - General 03/17/19 04/08/21 Krishna Medina MD [address] [address] 03/17/19 documented as of this encounter
--- OUTSIDE RECORDS SUMMARY | 2024-09-28 19:19 | XMS_ITS | Encounter Summary ---
Author Organization [facility] Address [address] [place] [address] Care Team Providers Care Computer Bookkeeper Name Role Phone Abrahan Mcgee MD Primary Care Provider [phone] Encounter Details Date Type Department Care Team (Late st Contact Info) Description 03/16/2002 Outpatient Historical [facility] Andre Ernst MD NO ADDRESS ON FILE Social History Tobacco Use Types Packs/Day Years Used Date Smoking Tobacco: Never Assessed Comments Unknown Sex and Gender Information Value Date Recorded Sex Assigned at Not on file Legal Sex Female 3:33 AM COMPOSING ROOM SUPERVISOR Gender Identity Not on file Sexual Orientation Not on file documented as of this encounter Plan of Treatment Upcoming Encounters Date Type Department Care Team (Late st Contact Info) Description 10/02/2024 11:45 AM CDT Office Visit [facility] Oncology and Hematology - [place] [address] [place] [address] Dr [address] [place] [address] [place] [address] [place] [address] [address] [place] [address] documented as of this encounter Visit Diagnoses Not on filedocumented in this encounter Care Teams Computer Bookkeeper Relationship Specialty Start Date End Date Abrahan Mcgee MD [address] [place] [address] PCP - General Family Practice 04/03/24 documented as of this encounter
--- OUTSIDE RECORDS SUMMARY | 2024-09-28 19:19 | XMS_ITS | Encounter Summary ---
Author Organization [facility] Address [address] [place] [address] Care Team Providers Care Weapons Specialist Name Role Phone Abrahan Mcgee MD Primary Care Provider [phone] Encounter Details Date Type Department Care Team (Late st Contact Info) Description 02/24/2002 Outpatient Historical HIS [facility] Andre Ernst MD NO ADDRESS ON FILE Social History Tobacco Use Types Packs/Day Years Used Date Smoking Tobacco: Never Assessed Comments Unknown Sex and Gender Information Value Date Recorded Sex Assigned at Not on file Legal Sex Female 3:33 AM INTERPERSONAL COMMUNICATIONS PROFESSOR Gender Identity Not on file Sexual Orientation Not on file documented as of this encounter Plan of Treatment Upcoming Encounters Date Type Department Care Team (Late st Contact Info) Description 10/02/2024 11:45 AM CDT [facility] Visit [facility] Oncology and Hematology - [place] [address] [place] [address] [address] [place] [address] [place] [address] [place] [address] [address] [place] [address] documented as of this encounter Visit Diagnoses Not on filedocumented in this encounter Care Teams Weapons Specialist Relationship Specialty Start Date End Date Abrahan Mcgee MD [address] [place] [address] PCP - General Family Practice 04/03/24 documented as of this encounter
--- OUTSIDE RECORDS SUMMARY | 2024-09-28 19:19 | XMS_ITS | Encounter Summary ---
Author Organization [facility] Address [address] [place] [address] Phone Care Team Providers Care Corner Cutter Name Role Phone Krishna Medina MD Unavailable [phone] Luigi Nicole Primary Care Provider Lina Yates NP Unavailable [phone] Yogesh Corbett DO Primary Care Provider [phone] Abrahan Mcgee MD Primary Care Provider [phone] Encounter Details Date Type Department Care Team (Late st Contact Info) Description 02/05/2022 Telephone [facility] Surgery [facility] Advanced [facility] 5th [place] [address] [place] [address] Akila Toussaint Social History Tobacco [...] on file Legal 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 Gender Identity Not on file Sexual Orientation Not on file documented as of this encounter Plan of Treatment Not on file documented as of this encounter Visit Diagnoses Not on filedocumented in this encounter Care Teams Corner Cutter Relationship Specialty Start Date End Date Luigi Nicole PA [address] [place] [address] [address] [place] [address] PCP - General Physician Nut Culler 04/09/21 12/01/23 Yogesh Corbett DO [address] [place] [address] PCP - General Internal Medicine 12/02/23 06/05/24 Abrahan Mcgee MD [address] [place] [address] PCP - General Family Medicine 06/06/24 Krishna Medina MD [address] [address] 03/17/19 Lina Yates NP [address] [place] [address] [address] [place] [address] Nurse Practitioner 11/12/22 documented as of this encounter
--- OUTSIDE RECORDS SUMMARY | 2024-09-28 19:19 | XMS_ITS | Encounter Summary ---
Author Organization [facility] Address [address] [place] [address] Care Team Providers Care Field Auto Appraiser Name Role Phone Krishna Medina MD Primary Care Provider [phone] Reason for Visit * Diagnostic Imaging (Routine) - Closed Specialty Diagnoses / Procedures Referred By Contac t Referred To Contact Procedures Breast Imaging Screening Outside Reference Aft, Sweta Gleason MD PhD [address] [place] [address] Phone: tel: fax: Referral ID Status Reason Start Date Expiration Date Visits Re quested Visits Authorized [id number] Closed 01/19/2022 02/18/2023 1 1 Encounter Details Date Type Department Care Team (Late st Contact Info) Description 08/26/2018 Hospital Encounter [facility] [address] [place], [place] [id number] Social History Tobacco Use Types Packs/Day Years [...] on file Legal 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:42 PM TAR CHASER Gender Identity Not on file Sexual Orientation [...] CDT) Impressions [facility] - 01/19/2022 11:04 AM TAR CHASER These images are for Reference purposes only and have not been reviewed by [facility] Radiology. There will be no report generated by a [facility] Radiologist. Narrative [facility] - 01/19/2022 11:04 AM TAR CHASER EXAMINATION: Images For Reference Purposes Only us Sweta Conteh MD PhD IMG MAMMO PROCEDURES Final Result [facility] documented in this encounter Visit Diagnoses Not on filedocumented in this encounter Care Teams Field Auto Appraiser Relationship Specialty Start Date End Date Krishna Medina MD [address] [address] PCP - General 10/15/16 03/16/19 documented as of this encounter
--- OUTSIDE RECORDS SUMMARY | 2024-09-28 19:19 | XMS_ITS | Clinical Summary ---
Author Organization [facility] Address [address] [facility] [place] [address] Care Team Providers Care Insurance Customer Service Specialist Name Role Phone Abrahan Mcgee MD Primary Care Provider [phone] Source Comments [facility],non-[facility] Affiliates and Associated Physician Practices is amultiple site organization consisting of ambulatory clinics and hospital sitesin [place], [place], [place] and [place]. This disclosure is being madepursuant to the Care Everywhere program and may not contain all information available regarding this patient. 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 Gender Identity Not on file Sexual Orientation [...] age to complete this topic Insurance [facility] MANAGED MEDICARE ADV AETNA MEDICARE ADV SELF PAY NO INSURANCE Member Subscriber Plan / Payer (Ef fective for All Dates) Name:Marshal Sanders Member ID:Not on file Relation to Subscriber:Not on file Name:Marshal SANDERS Subscriber ID:Not on file Address: [address] [place] [address] Payer ID:Not on file Group ID:Not on file Type:Self Pay Address: [place], [place] AETNA MEDICARE ADV SELF PAY NO INSURANCE Member Subscriber Plan / Payer (Ef fective for All Dates) Name:Marshal Sanders Member ID:Not on file Relation to Subscriber:Not on file Name:Marshal SANDERS Subscriber ID:Not on file Address: [address] [place] [address] [place] [address] Payer ID:Not on file Group ID:Not on file Type:Self Pay Address: [place], [place] Care Teams Insurance Customer Service Specialist Relationship Specialty Start Date End Date Abrahan Mcgee MD [address] [place] [address] PCP - General 07/23/09
--- OUTSIDE RECORDS SUMMARY | 2024-09-28 19:19 | XMS_ITS | Encounter Summary ---
Author Organization [facility] Address [address] [facility] Attn: Epic Prelude ADT FRIDA SPARROW [address] Care Team Providers Care Tensioning Machine Operator Name Role Phone Abrahan Mcgee [...] on file Legal Sex Female 3:33 AM SHADE HANGER Gender Identity Not on file Sexual Orientation Not on file documented as of this encounter Plan of Treatment Upcoming Encounters Date Type Department Care Team (Late st Contact Info) Description 10/02/2024 11:45 AM CDT Office Visit [facility] Oncology and Hematology - [place] [address] [place] [address] [address] [place] [address] Prince Mir MD [address] [place] [address] [address] [place] [address] documented as of this encounter Visit Diagnoses Not on filedocumented in this encounter Care Teams Tensioning Machine Operator Relationship Specialty Start Date End Date Abrahan Mcgee MD [address] [place] [address] PCP - General Family Practice 04/03/24 documented as of this encounter
--- OUTSIDE RECORDS SUMMARY | 2024-09-28 19:19 | XMS_ITS | Encounter Summary ---
Author Organization [facility] Address 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 Gender Identity Not on file Sexual Orientation Not on file documented as of this encounter Plan of Treatment Upcoming Encounters Date Type Department Care Team (Late st Contact Info) Description 10/02/2024 11:45 AM CDT Office Visit [facility] Oncology and Hematology - [place] [address] [place] [address] [address] [place] [address] [place] [address] [place] [address] [address] [place] [address] documented as of this encounter Visit Diagnoses Diagnosis Backache, unspecified- Primary documented in this encounter Care Teams Manager Human Capital Relationship Specialty Start Date End Date Abrahan Mcgee MD [address] [place] [address] PCP - General Family Practice 04/03/24 documented as of this encounter
--- OUTSIDE RECORDS SUMMARY | 2024-09-28 19:19 | XMS_ITS | Encounter Summary ---
Author Organization [facility] Address [address] [place] [address] Care Team Providers Care Tipple Repairer Name Role Phone Abrahan Mcgee MD Primary Care Provider [phone] Reason for Visit * Diagnostic Imaging (Routine) - Closed Specialty Diagnoses / Procedures Referred By Contac t Referred To Contact Procedures Breast Imaging Diagnostic Outside Reference Aft, Sweta Gleason [place] PhD [address] [place] [address] Phone: tel: fax: Referral ID Status Reason Start Date Expiration Date Visits Re quested Visits Authorized [id number] Closed 01/19/2022 02/18/2023 1 1 Encounter Details Date Type Department Care Team (Late st Contact Info) Description 07/21/2016 Hospital Encounter [facility] [address] [place] [id number] Social History Tobacco Use Types Packs/Day Years [...] on file Legal 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:42 PM MAINTAINER CENTRAL OFFICE Gender Identity Not on file Sexual Orientation [...] CDT) Impressions [facility] - 01/19/2022 10:56 AM MAINTAINER CENTRAL OFFICE These images are for Reference purposes only and have not been reviewed by [facility] Radiology. There will be no report generated by a [facility] Radiologist. Narrative [facility] - 01/19/2022 10:56 AM MAINTAINER CENTRAL OFFICE EXAMINATION: Images For Reference Purposes Only us Sweta Conteh MD PhD IMG MAMMO PROCEDURES Final Result [facility] documented in this encounter Visit Diagnoses Not on filedocumented in this encounter Care Teams Tipple Repairer Relationship Specialty Start Date End Date Abrahan Mcgee MD PCP - General 10/06/11 09/09/16 documented as of this encounter
--- OUTSIDE RECORDS SUMMARY | 2024-09-28 19:19 | XMS_ITS | Encounter Summary ---
Author Organization [facility] Address 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 Gender Identity Not on file Sexual Orientation Not on file documented as of this encounter Plan of Treatment Upcoming Encounters Date Type Department Care Team (Late st Contact Info) Description 10/02/2024 11:45 AM CDT Office Visit [facility] Oncology and Hematology - [place] [address] [place] [address] [address] [place] [address] [place] [address] [place] [address] [address] [place] [address] documented as of this encounter Visit Diagnoses Diagnosis Essential hypertension, benign- Primary documented in this encounter Care Teams Manpower Development Advisor Relationship Specialty Start Date End Date Abrahan Mcgee MD [address] [place] [address] PCP - General Family Practice 04/03/24 documented as of this encounter
--- OUTSIDE RECORDS SUMMARY | 2024-09-28 19:19 | XMS_ITS | Encounter Summary ---
Author Organization [facility] Address 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 TAILER Gender Identity Not on file Sexual Orientation Not on file documented as of this encounter Plan of Treatment Upcoming Encounters Date Type Department Care Team (Late st Contact Info) Description 10/02/2024 11:45 AM CDT Office Visit [facility] Oncology and Hematology - [place] [address] [place] [address] [address] [place] [address] [place] [address] [place] [address] [address] [place] [address] documented as of this encounter Visit Diagnoses Not on filedocumented in this encounter Care Teams Anchorman Relationship Specialty Start Date End Date Abrahan Mcgee MD [address] [place] [address] PCP - General Family Practice 04/03/24 documented as of this encounter
--- OUTSIDE RECORDS SUMMARY | 2024-09-28 19:19 | XMS_ITS | Encounter Summary ---
Author Organization [facility] Address [address] [facility] Attn: Epic Prelude ADT FRIDA SPARROW [address] Care Team Providers Care Cisco Engineer Name Role Phone Abrahan Mcgee MD [...] file Legal Sex Female 3:33 AM MANAGER TRANSMISSION Gender Identity Not on file Sexual Orientation Not on file documented as of this encounter Plan of Treatment Upcoming Encounters Date Type Department Care Team (Late st Contact Info) Description 10/02/2024 11:45 AM CDT Office Visit [facility] Oncology and Hematology - [place] [address] [place] [address] [address] [place] [address] Prince Mir MD [address] [place] [address] [address] [place] [address] documented as of this encounter Visit Diagnoses Not on filedocumented in this encounter Care Teams Cisco Engineer Relationship Specialty Start Date End Date Abrahan Mcgee MD [address] [place] [address] PCP - General Family Practice 04/03/24 documented as of this encounter
--- OUTSIDE RECORDS SUMMARY | 2024-09-28 19:19 | XMS_ITS | Encounter Summary ---
Author Organization [facility] Address [address] [facility] Attn: Epic Prelude ADT FRIDA SPARROW [address] Care Team Providers Care Digital Photographic Printer Name Role Phone Abrahan Mcgee MD Primary [...] on file Legal Sex Female 3:33 AM SUPERVISING NURSE Gender Identity Not on file Sexual Orientation Not on file documented as of this encounter Plan of Treatment Upcoming Encounters Date Type Department Care Team (Late st Contact Info) Description 10/02/2024 11:45 AM CDT Office Visit [facility] Oncology and Hematology - [place] [address] [place] [address] Dr [address] [place] [address] Prince Mir MD [address] [place] [address] [address] [place] [address] documented as of this encounter Visit Diagnoses Not on filedocumented in this encounter Care Teams Digital Photographic Printer Relationship Specialty Start Date End Date Abrahan Mcgee MD [address] [place] [address] PCP - General Family Practice 04/03/24 documented as of this encounter
--- OUTSIDE RECORDS SUMMARY | 2024-09-28 19:19 | XMS_ITS | Encounter Summary ---
Author Organization [facility] Address 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 Gender Identity Not on file Sexual Orientation Not on file documented as of this encounter Plan of Treatment Upcoming Encounters Date Type Department Care Team (Late st Contact Info) Description 10/02/2024 11:45 AM CDT Office Visit [facility] Oncology and Hematology - [place] [address] [place] [address] Dr [address] [place] [address] [place] [address] [place] [address] [address] [place] [address] documented as of this encounter Visit Diagnoses Diagnosis Diaphragmatic hernia without mention of obstruction or gangrene- Primary documented in this encounter Care Teams Restaurant Crew Member Relationship Specialty Start Date End Date Abrahan Mcgee MD [address] [place] [address] PCP - General Family Practice 04/03/24 documented as of this encounter
--- OUTSIDE RECORDS SUMMARY | 2024-09-28 19:19 | XMS_ITS | Encounter Summary ---
Author Organization [facility] Address [address] [facility] Attn: Epic Prelude ADT FRIDA SPARROW [address] Care Team Providers Care Community Recreation Programmer Name Role Phone Abrahan Mcgee MD Primary [...] on file Legal Sex Female 3:33 AM KEY OPERATOR Gender Identity Not on file Sexual Orientation Not on file documented as of this encounter Plan of Treatment Upcoming Encounters Date Type Department Care Team (Late st Contact Info) Description 10/02/2024 11:45 AM CDT Office Visit [facility] Oncology and Hematology - [place] [address] [place] [address] Dr [address] [place] [address] Prince Mir MD [address] [place] [address] [address] [place] [address] documented as of this encounter Visit Diagnoses Not on filedocumented in this encounter Care Teams Community Recreation Programmer Relationship Specialty Start Date End Date Abrahan Mcgee MD [address] [place] [address] PCP - General Family Practice 04/03/24 documented as of this encounter
--- OUTSIDE RECORDS SUMMARY | 2024-09-28 19:19 | XMS_ITS | Clinical Summary ---
Author Organization [facility] Address [address] [place] [address] Phone Care Team Providers Care Anthropometrist Name Role Phone Abrahan Mcgee MD Primary Care Provider [phone] Allergies Active Allergy Reactions Criticality Noted Date [...] 9 Active fluticasone propionate (FLONASE) 50 mcg/spray [place], Suspension nasal inhaler Administer 2 Sprays in [...] STL ABSTRACTION Provider, Abstract 08/09/2024 Orders Only [facility] Oncology and Hematology - [place] [address] [place] [address] [id number] Prince Mir MD 07/20/2024 External Device Data [...] on file Legal Sex Female 3:33 AM FARMWORKER [employer] Gender Identity Not on file Sexual Orientation Not on file Last Filed Vital Signs Vital Sign Reading Time Taken Comments Blood Pressure 132/71 04/03/2024 2:30 PM FARMWORKER [employer] Pulse 69 04/03/2024 2:30 PM FARMWORKER [employer] Temperature 36.1 C (97 F) 04/03/2024 2:30 PM FARMWORKER [employer] Respiratory Rate 14 04/03/2024 2:30 PM FARMWORKER [employer] Oxygen Saturation 96% 04/03/2024 2:30 PM FARMWORKER [employer] Inhaled Oxygen Concentration - - Weight 53.1 kg (117 lb) 04/03/2024 2:30 PM FARMWORKER [employer] Height 149.9 cm (4' 11) 12/09/2022 2:04 PM CDT Body Mass Index 23.63 12/09/2022 2:04 PM CDT Plan of Treatment Upcoming Encounters Date Type Department Care Team (Late st Contact Info) Description 10/02/2024 11:45 AM CDT Office Visit [facility] Oncology and Hematology [facility] [address] [facility] [address] [place] [address] Prince Mir MD [address] [facility] [address] [place] [address] Health Maintenance Due Date Last Done Comments DTAP/TDAP/TD VACCINES (1 - Tdap) 10/12/1954 ZOSTER VACCINE (1 of 2) 10/12/1985 OSTEOPOROSIS SCREENING 10/12/2000 RSV VACCINE (60+ or ) (1 - 1-dose 75+ series) 10/12/2010 PNEUMOCOCCAL VACCINE 50+ YEA RS (2 of 2 - PCV20 or PCV21) 12/17/2019 12/16/2018 Medicare [place] ([place] Prev entative Visit/Annual Wellness Visit 03/01/2024 INFLUENZA VACCINE (#1) 2024 01/20/2019 Procedures Procedure Name Priority Date/Time Associated Diagnosis Comments MAMMO SCREENING BILAT Routine 08/08/2024 9:58 AM CDT from Last 3 Months Results * MAMMO SCREENING BILAT (08/08/2024 9:58 AM CDT) Anatomical Region Laterality Modality Breast Bilateral Mammography Prince Mir MD MAMMO ORDERABLES Final Result from Last 3 Months Insurance [facility] AETNA [facility] Care Teams Anthropometrist Relationship Specialty Start Date End Date Abrahan Mcgee MD [address] [place] [address] PCP - General Family Practice 04/03/24
--- OUTSIDE RECORDS SUMMARY | 2024-09-28 19:19 | XMS_ITS | Encounter Summary ---
Author Organization [facility] Address [address] [place] [address] Care Team Providers Care Rat Farmer Name Role Phone Abrahan Mcgee MD Primary Care Provider [phone] Encounter Details Date Type Department Care Team (Latest Contact Info) Description 03/22/2001 Outpatient Historical HIS [facility] Andre Vidal MD NO ADDRESS ON FILE BENIGN HYPERTENSION (Primary Dx) Social History Tobacco Use Types Packs/Day Years Used Date Smoking Tobacco: Never Assessed Comments Unknown Sex and Gender Information Value Date Recorded Sex Assigned at Not on file Legal Sex Female 3:33 AM PRODUCTION POTTER Gender Identity Not on file Sexual Orientation Not on file documented as of this encounter Plan of Treatment Upcoming Encounters Date Type Department Care Team (Late st Contact Info) Description 10/02/2024 11:45 AM CDT Office Visit [facility] Oncology and Hematology - [place] [address] [place] [address] [address] [place] [address] [place] [address] [place] [address] [address] [place] [address] documented as of this encounter Visit Diagnoses Diagnosis Essential hypertension, benign- Primary documented in this encounter Care Teams Rat Farmer Relationship Specialty Start Date End Date Abrahan Mcgee MD [address] [place] [address] PCP - General Family Practice 04/03/24 documented as of this encounter
--- OUTSIDE RECORDS SUMMARY | 2024-09-28 19:19 | XMS_ITS | Encounter Summary ---
Author Organization [facility] Address 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 Gender Identity Not on file Sexual Orientation Not on file documented as of this encounter Plan of Treatment Upcoming Encounters Date Type Department Care Team (Late st Contact Info) Description 10/02/2024 11:45 AM CDT Office Visit [facility] Oncology and Hematology - [place] [address] [place] [address] [address] [place] [address] [place] [address] [place] [address] [address] [place] [address] documented as of this encounter Visit Diagnoses Not on filedocumented in this encounter Care Teams Featherer Relationship Specialty Start Date End Date Abrahan Mcgee MD [address] [place] [address] PCP - General Family Practice 04/03/24 documented as of this encounter
--- OUTSIDE RECORDS SUMMARY | 2024-09-28 19:19 | XMS_ITS | Encounter Summary ---
Author Organization [facility] Address [address] [facility] Attn: Epic Prelude ADT [place] [address] Care Team Providers Care Dispatch Machine Runner Name Role Phone Abrahan Mcgee MD Primary Care Provider [phone] Encounter Details Date Type Department Care Team (Late st Contact Info) Description 08/08/1993 Outpatient Historical Andre Ernst MD NO ADDRESS ON FILE Social History Tobacco Use Types Packs/Day Years Used Date Smoking Tobacco: Never Assessed Comments Unknown Sex and Gender Information Value Date Recorded Sex Assigned at Not on file Legal Sex Female 3:33 AM STAFF PHYSICIAN Gender Identity Not on file Sexual Orientation Not on file documented as of this encounter Plan of Treatment Upcoming Encounters Date Type Department Care Team (Late st Contact Info) Description 10/02/2024 11:45 AM CDT Office Visit [facility] Oncology and Hematology - [place] [address] [place] [address] [address] [place] [address] Prince Mir MD [address] [place] [address] [address] [place] [address] documented as of this encounter Visit Diagnoses Not on filedocumented in this encounter Care Teams Dispatch Machine Runner Relationship Specialty Start Date End Date Abrahan Mcgee MD [address] [place] [address] PCP - General Family Practice 04/03/24 documented as of this encounter
--- OUTSIDE RECORDS SUMMARY | 2024-09-28 19:19 | XMS_ITS | Encounter Summary ---
Author Organization [facility] Address [address] [place] [address] Care Team Providers Care Heel Seat Pounder Name Role Phone Abrahan Mcgee MD Primary Care Provider [phone] Encounter Details Date Type Department Care Team (Late st Contact Info) Description 10/29/2000 Outpatient Historical HIS [facility] [...] [facility] Oncology and Hematology - [place] [address] [place] [address] [address] [place] [address] [place] [address] [place] [address] [address] [place] [address] documented as of this encounter Visit Diagnoses Not on filedocumented in this encounter Care Teams Heel Seat Pounder Relationship Specialty Start Date End Date Abrahan Mcgee MD [address] [place] [address] PCP - General Family Practice 04/03/24 documented as of this encounter
--- OUTSIDE RECORDS SUMMARY | 2024-09-28 19:19 | XMS_ITS | Encounter Summary ---
Author Organization [facility] Address [address] [facility] Attn: Epic Prelude ADT [place] [address] Care Team Providers Care Farm Owner Operator Name Role Phone Abrahan Mcgee MD Primary Care Provider [phone] Encounter Details Date Type Department Care Team [...] [facility] [place] [address] [place] [address] Dr [address] [place] [address] Prince Mir MD [address] [place] [address] [address] [place] [address] documented as of this encounter Visit Diagnoses Not on filedocumented in this encounter Care Teams Farm Owner Operator Relationship Specialty Start Date End Date Abrahan Mcgee MD [address] [place] [address] PCP - General Family Practice 04/03/24 documented as of this encounter
--- OUTSIDE RECORDS SUMMARY | 2024-09-28 19:19 | XMS_ITS | Encounter Summary ---
Author Organization [facility] Address [address] [place] [address] Care Team Providers Care Plant Safety Leader Name Role Phone Abrahan Mcgee MD Primary Care Provider [phone] Encounter Details Date Type Department Care Team (Late st Contact Info) Description 08/03/2001 Outpatient Historical HIS [facility] Berta Monae MD [address] [place] [address] Social History Tobacco Use Types Packs/Day Years Used Date Smoking Tobacco: Never Assessed Comments Unknown Sex and Gender Information Value Date Recorded Sex Assigned at Not on file Legal Sex Female 3:33 AM LATEX CASTER Gender Identity Not on file Sexual Orientation Not on file documented as of this encounter Plan of Treatment Upcoming Encounters Date Type Department Care Team (Late st Contact Info) Description 10/02/2024 11:45 AM CDT Office Visit [facility] Oncology and Hematology - [place] [address] [place] [address] [address] [place] [address] Prince Mir MD [address] [facility] [address] [place] [address] documented as of this encounter Visit Diagnoses Not on filedocumented in this encounter Care Teams Plant Safety Leader Relationship Specialty Start Date End Date Abrahan Mcgee MD [address] [place] [address] PCP - General Family Practice 04/03/24 documented as of this encounter
--- OUTSIDE RECORDS SUMMARY | 2024-09-28 19:19 | XMS_ITS | Encounter Summary ---
Author Organization [facility] Address [address] [place] [address] Care Team Providers Care Cut And Cover Line Worker Name Role Phone Abrahan Mcgee MD Primary Care Provider [phone] Encounter Details Date Type Department Care Team (Late st Contact Info) Description 03/29/2002 Outpatient Historical HIS [facility] Andre Ernst MD NO ADDRESS ON FILE HEADACHE (Primary Dx) Social History Tobacco Use Types Packs/Day Years Used Date Smoking Tobacco: Never Assessed Comments Unknown Sex and Gender Information Value Date Recorded Sex Assigned at Not on file Legal Sex Female 3:33 AM ROTARY FILTER OPERATOR Gender Identity Not on file Sexual Orientation Not on file documented as of this encounter Plan of Treatment Upcoming Encounters Date Type Department Care Team (Late st Contact Info) Description 10/02/2024 11:45 AM CDT Office Visit [facility] Oncology and Hematology - [place] [address] [place] [address] [address] [place] [address] [place] [address] [place] [address] [address] [place] [address] documented as of this encounter Visit Diagnoses Diagnosis Headache(784.0)- Primary Headache documented in this encounter Care Teams Cut And Cover Line Worker Relationship Specialty Start Date End Date Abrahan Mcgee MD [address] [place] [address] PCP - General Family Practice 04/03/24 documented as of this encounter
--- OUTSIDE RECORDS SUMMARY | 2024-09-28 19:19 | XMS_ITS | Encounter Summary ---
Author Organization [facility] Address [address] [place] [address] Care Team Providers Care Engineering Designer Name Role Phone Abrahan Mcgee MD Primary Care Provider [phone] Encounter Details Date Type Department Care Team (Latest Contact Info) Description 02/24/2002 Outpatient Historical HIS [facility] Andre Vidal MD NO ADDRESS ON FILE CHRONIC SINUSITIS NOS (Primary Dx) Social History Tobacco Use Types Packs/Day Years Used Date Smoking Tobacco: Never Assessed Comments Unknown Sex and Gender Information Value Date Recorded Sex Assigned at Not on file Legal Sex Female 3:33 AM CERTIFIED INCOME TAX PREPARER Gender Identity Not on file Sexual Orientation Not on file documented as of this encounter Plan of Treatment Upcoming Encounters Date Type Department Care Team (Late st Contact Info) Description 10/02/2024 11:45 AM CDT Office Visit [facility] Oncology and Hematology - [place] [address] [place] [address] Dr [address] [place] [address] [place] [address] [place] [address] [address] [place] [address] documented as of this encounter Visit Diagnoses Diagnosis Unspecified sinusitis (chronic)- Primary documented in this encounter Care Teams Engineering Designer Relationship Specialty Start Date End Date Abrahan Mcgee MD [address] [place] [address] PCP - General Family Practice 04/03/24 documented as of this encounter
--- OUTSIDE RECORDS SUMMARY | 2024-09-28 19:19 | XMS_ITS | Encounter Summary ---
Author Organization [facility] Address [address] [place] [address] Care Team Providers Care Toe Puncher Name Role Phone Abrahan Mcgee MD Primary Care Provider [phone] Encounter Details Date Type Department Care Team (Latest Contact Info) Description 11/04/2001 Outpatient Historical HIS [facility] Andre Vidal MD NO ADDRESS ON FILE BENIGN HYPERTENSION (Primary Dx) Social History Tobacco Use Types Packs/Day Years Used Date Smoking Tobacco: Never Assessed Comments Unknown Sex and Gender Information Value Date Recorded Sex Assigned at Not on file Legal Sex Female 3:33 AM LEAD BURNER APPRENTICE Gender Identity Not on file Sexual Orientation Not on file documented as of this encounter Plan of Treatment Upcoming Encounters Date Type Department Care Team (Late st Contact Info) Description 10/02/2024 11:45 AM CDT Office Visit [facility] Oncology and Hematology - [place] [address] [place] [address] [address] [place] [address] [place] [address] [place] [address] [address] [place] [address] documented as of this encounter Visit Diagnoses Diagnosis Essential hypertension, benign- Primary documented in this encounter Care Teams Toe Puncher Relationship Specialty Start Date End Date Abrahan Mcgee MD [address] [place] [address] PCP - General Family Practice 04/03/24 documented as of this encounter
--- OUTSIDE RECORDS SUMMARY | 2024-09-28 19:19 | XMS_ITS | Encounter Summary ---
Author Organization [facility] Address [address] [place] [address] Care Team Providers Care Detasseler Name Role Phone Abrahan Mcgee MD Primary Care Provider [phone] Encounter Details Date Type Department Care Team (Latest Contact Info) Description 11/26/2000 Outpatient Historical HIS [facility] Andre Vidal MD NO ADDRESS ON FILE Essential hypertension, benign (Primary Dx) Social History Tobacco Use Types Packs/Day Years Used Date Smoking Tobacco: Never Assessed Comments Unknown Sex and Gender Information Value Date Recorded Sex Assigned at Not on file Legal Sex Female 3:33 AM MORALE OFFICER Gender Identity Not on file Sexual Orientation Not on file documented as of this encounter Plan of Treatment Upcoming Encounters Date Type Department Care Team (Late st Contact Info) Description 10/02/2024 11:45 AM CDT Office Visit [facility] Oncology and Hematology - [place] [address] [place] [address] [address] [place] [address] [place] [address] [place] [address] [address] [place] [address] documented as of this encounter Visit Diagnoses Diagnosis Essential hypertension, benign- Primary documented in this encounter Care Teams Detasseler Relationship Specialty Start Date End Date Abrahan Mcgee MD [address] [place] [address] PCP - General Family Practice 04/03/24 documented as of this encounter
--- OUTSIDE RECORDS SUMMARY | 2024-09-28 19:20 | XMS_ITS | Encounter Summary ---
Author Organization [facility] Address [address] [place] [address] Care Team Providers Care Die Finisher Forging Name Role Phone Abrahan Mcgee MD Primary Care Provider [phone] Encounter Details Date Type Department Care Team (Latest Contact Info) Description 11/01/2003 Outpatient Historical HIS [facility] ЕКАТЕРИНА Sneed, Oscar Medeiros MD NO ADDRESS ON FILE SCREENING MAMM-MAILG NEOPL-OTHER (Primary Dx) Social History Tobacco Use Types Packs/Day Years Used Date Smoking Tobacco: Never Assessed Comments Unknown Sex and Gender Information Value Date Recorded Sex Assigned at Not on file Legal Sex Female 3:33 AM WAVE SOLDERING MACHINE OPERATOR Gender Identity Not on file Sexual Orientation Not on file documented as of this encounter Plan of Treatment Upcoming Encounters Date Type Department Care Team (Late st Contact Info) Description 10/02/2024 11:45 AM CDT Office Visit [facility] Oncology and Hematology - [place] [address] [facility] [address] [place] [address] Prince Mir MD [address] [facility] [address] [place] [address] documented as of this encounter Visit Diagnoses Diagnosis Other screening mammogram- Primary documented in this encounter Care Teams Die Finisher Forging Relationship Specialty Start Date End Date Abrahan Mcgee MD [address] [place] [address] PCP - General Family Practice 04/03/24 documented as of this encounter
--- OUTSIDE RECORDS SUMMARY | 2024-09-28 19:20 | XMS_ITS | Encounter Summary ---
Author Organization [facility] Address [address] [place] [address] Care Team Providers Care Marketing Financial Analyst Name Role Phone Abrahan Mcgee MD Primary Care Provider [phone] Encounter Details Date Type Department Care Team (Late st Contact Info) Description 11/26/2000 Outpatient Historical HIS [facility] Andre Ernst MD NO ADDRESS ON FILE Social History Tobacco Use Types Packs/Day Years Used Date Smoking Tobacco: Never Assessed Comments Unknown Sex and Gender Information Value Date Recorded Sex Assigned at Not on file Legal Sex Female 3:33 AM LOG DECKMAN Gender Identity Not on file Sexual Orientation Not on file documented as of this encounter Plan of Treatment Upcoming Encounters Date Type Department Care Team (Late st Contact Info) Description 10/02/2024 11:45 AM CDT Office Visit [facility] Oncology and Hematology - [place] [address] [place] [address] [address] [place] [address] [place] [address] [place] [address] [address] [place] [address] documented as of this encounter Visit Diagnoses Not on filedocumented in this encounter Care Teams Marketing Financial Analyst Relationship Specialty Start Date End Date Abrahan Mcgee MD [address] [place] [address] PCP - General Family Practice 04/03/24 documented as of this encounter
--- OUTSIDE RECORDS SUMMARY | 2024-09-28 19:20 | XMS_ITS | Encounter Summary ---
Author Organization [facility] Address [address] [place] [address] Care Team Providers Care Oven Dauber Name Role Phone Abrahan Mcgee MD Primary Care Provider [phone] Encounter Details Date Type Department Care Team (Late st Contact Info) Description 11/27/2004 Outpatient Historical HIS [facility] ЕКАТЕРИНА Perry, Meryl Periera MD [address] [address] [place] [address] ABDOMINAL PAIN RLQ (Primary Dx) Social History Tobacco Use Types Packs/Day Years Used Date Smoking Tobacco: Never Assessed Comments Unknown Sex and Gender Information Value Date Recorded Sex Assigned at Not on file Legal Sex Female 3:33 AM DIRECTOR ENERGY Gender Identity Not on file Sexual Orientation Not on file documented as of this encounter Plan of Treatment Upcoming Encounters Date Type Department Care Team (Late st Contact Info) Description 10/02/2024 11:45 AM CDT Office Visit [facility] Oncology and Hematology - [place] [address] [facility] [address] [place] [address] Prince Mir MD [address] [facility] [address] [place] [address] documented as of this encounter [...] FETOPROTEIN TUMOR MARKER (11/27/2004 11:54 AM CDT) [facility] ALPHA FETOPROTEIN TUMOR MARKER 2.2 ng/mL INTERFACE SYSTEM Comment: This test was performed using the GANTEC Immulite 2000 Assay. REFERENCE RANGE: <6.1 THE USE OF AFP A TUMOR MARKER IN FEMALES IS NOT RECOMMENDED. Lab test performed by: [facility] [address] [place] [address] EVELINA AMOS MD 11/27/2004 11:5 4 AM CDT Meryl Perry MD CHEMISTRY ORDERABLES Fin al Result INTERFACE SYSTEM Refer to clinic/hospital department * CBC WITH DIFFERENTIAL (11/27/2004 11:54 AM CDT) [facility] NEUTROPHILS 67 45 - 70 % [...] ORDERABLES Fi nal Result Performing Organization Address City/[facility] de Phone Number INTERFACE SYSTEM [...] ORDERABLES Fi nal Result Performing Organization Address [facility] Phone Number INTERFACE SYSTEM Refer to clinic/hospital department * (ABNORMAL) AMYLASE (11/27/2004 11:54 AM CDT) AMYLASE 141(H) 28 - 100 U/L INTERFACE SYSTEM 11/27/2004 11:5 4 AM CDT Meryl Perry MD CHEMISTRY ORDERABLES Fin al Result Performing Organization Address City/[facility] Co de Phone Number INTERFACE SYSTEM Refer to clinic/hospital department * (ABNORMAL) LIPASE (11/27/2004 11:54 AM CDT) LIPASE 97(H) 13 - 60 U/L INTERFAC E SYSTEM 11/27/2004 11:5 4 AM CDT Meryl Perry MD CHEMISTRY ORDERABLES Fin alana Result Performing Organization Address [facility] Phone Number INTERFACE SYSTEM Refer to clinic/hospital department * C-REACTIVE PROTEIN (11/27/2004 11:54 AM CDT) CRP 0.5 0.0 - 0.8 mg/dL INTERFACE SYSTEM 11/27/2004 11:5 4 AM CDT Meryl Perry MD CHEMISTRY ORDERABLES Fin alana Result Performing Organization Address [facility] Number INTERFACE SYSTEM Refer to clinic/hospital department [...] ORDERABLES Amarjit warner Result Performing Organization Address [facility] Phone Number INTERFACE SYSTEM Refer to clinic/hospital [...] Primary documented in this encounter Care Teams Oven Dauber Relationship Specialty Start Date End Date Abrahan Mcgee MD [address] [place] [address] PCP - General Family Practice 04/03/24 documented as of this encounter
--- OUTSIDE RECORDS SUMMARY | 2024-09-28 19:20 | XMS_ITS | Encounter Summary ---
Author Organization [facility] Address [address] [place] [address] Care Team Providers Care Associate Merchandise Planner Name Role Phone Abrahan Mcgee MD Primary Care Provider [phone] Encounter Details Date Type Department Care Team (Late st Contact Info) Description 06/11/2005 Outpatient Historical HIS [facility] Andre Ernst MD NO ADDRESS ON FILE Social History Tobacco Use Types Packs/Day Years Used Date Smoking Tobacco: Never Assessed Comments Unknown Sex and Gender Information Value Date Recorded Sex Assigned at Not on file Legal Sex Female 3:33 AM MEDICAL COLLECTIONS SPECIALIST Gender Identity Not on file Sexual Orientation Not on file documented as of this encounter Plan of Treatment Upcoming Encounters Date Type Department Care Team (Late st Contact Info) Description 10/02/2024 11:45 AM CDT Office Visit [facility] Oncology and Hematology - [place] [address] [place] [address] [address] [place] [address] [place] [address] [place] [address] [address] [place] [address] documented as of this encounter Visit Diagnoses Not on filedocumented in this encounter Care Teams Associate Merchandise Planner Relationship Specialty Start Date End Date Abrahan Mcgee MD [address] [place] [address] PCP - General Family Practice 04/03/24 documented as of this encounter
--- OUTSIDE RECORDS SUMMARY | 2024-09-28 19:20 | XMS_ITS | Encounter Summary ---
Author Organization [facility] Address [address] [place] [address] Care Team Providers Care Flatwork Ironer Name Role Phone Abrahan Mcgee MD Primary Care Provider [phone] Encounter Details Date Type Department Care Team (Late st Contact Info) Description 02/23/2005 Outpatient Historical [facility] [address] [place] [address] Guero Malhotra MD NO ADDRESS ON FILE Social History Tobacco Use Types Packs/Day Years Used Date Smoking Tobacco: Never Assessed Comments Unknown Sex and Gender Information Value Date Recorded Sex Assigned at Not on file Legal Sex Female 3:33 AM ALLERGY SPECIALIST Gender Identity Not on file Sexual Orientation Not on file documented as of this encounter Plan of Treatment Upcoming Encounters Date Type Department Care Team (Late st Contact Info) Description 10/02/2024 11:45 AM CDT Office Visit [facility] Oncology and Hematology - [place] [address] [facility] [address] [place] [address] Prince Mir MD [address] [facility] [address] [place] [address] documented as of this encounter Visit Diagnoses Not on filedocumented in this encounter Care Teams Flatwork Ironer Relationship Specialty Start Date End Date Abrahan Mcgee MD [address] [place] [address] PCP - General Family Practice 04/03/24 documented as of this encounter
--- OUTSIDE RECORDS SUMMARY | 2024-09-28 19:20 | XMS_ITS | Encounter Summary ---
Author Organization [facility] Address [address] [place] [address] Care Team Providers Care Custodian Supervisor Name Role Phone Abrahan Mcgee MD Primary Care Provider [phone] Encounter Details Date Type Department Care Team (Late st Contact Info) Description 02/24/2005 Outpatient Historical [facility] Adult Hospitalists [facility] [address] [place] [address] Alcon Valadez MD [address] [place] [address] Social History Tobacco Use Types Packs/Day Years Used Date Smoking Tobacco: Never Assessed Comments Unknown Sex and Gender Information Value Date Recorded Sex Assigned at Not on file Legal Sex Female 3:33 AM OFFICE SERVICES REPRESENTATIVE Gender Identity Not on file Sexual Orientation Not on file documented as of this encounter Plan of Treatment Upcoming Encounters Date Type Department Care Team (Late st Contact Info) Description 10/02/2024 11:45 AM CDT Office Visit [facility] Oncology and Hematology - [place] [address] [facility] [address] [place] [address] Prince Mir MD [address] [facility] [address] [place] [address] documented as of this encounter Visit Diagnoses Not on filedocumented in this encounter Care Teams Custodian Supervisor Relationship Specialty Start Date End Date Abrahan Mcgee MD [address] [place] [address] PCP - General Family Practice 04/03/24 documented as of this encounter
--- OUTSIDE RECORDS SUMMARY | 2024-09-28 19:20 | XMS_ITS | Encounter Summary ---
Author Organization [facility] Address [address] [place] [address] Care Team Providers Care Social Work Specialist Name Role Phone Abrahan Mcgee MD Primary Care Provider [phone] Encounter Details Date Type Department Care Team (Late st Contact Info) Description 01/06/2006 Outpatient Historical [facility] Andre Ernst MD NO ADDRESS ON FILE Social History Tobacco Use Types Packs/Day Years Used Date Smoking Tobacco: Never Assessed Comments Unknown Sex and Gender Information Value Date Recorded Sex Assigned at Not on file Legal Sex Female 3:33 AM WORK ORDER SORTING CLERK Gender Identity Not on file Sexual Orientation Not on file documented as of this encounter Plan of Treatment Upcoming Encounters Date Type Department Care Team (Late st Contact Info) Description 10/02/2024 11:45 AM CDT Office Visit [facility] Oncology and Hematology - [place] [address] [place] [address] [address] [place] [address] [place] [address] [place] [address] [address] [place] [address] documented as of this encounter Visit Diagnoses Not on filedocumented in this encounter Care Teams Social Work Specialist Relationship Specialty Start Date End Date Abrahan Mcgee MD [address] [place] [address] PCP - General Family Practice 04/03/24 documented as of this encounter
--- OUTSIDE RECORDS SUMMARY | 2024-09-28 19:20 | XMS_ITS | Encounter Summary ---
Author Organization [facility] Address [address] [place] [address] Care Team Providers Care Life Skills Consultant Name Role Phone Abrahan Mcgee MD Primary Care Provider [phone] Encounter Details Date Type Department Care Team (Late st Contact Info) Description 07/06/2003 Outpatient Historical [facility] Andre Ernst MD NO ADDRESS ON FILE Social History Tobacco Use Types Packs/Day Years Used Date Smoking Tobacco: Never Assessed Comments Unknown Sex and Gender Information Value Date Recorded Sex Assigned at Not on file Legal Sex Female 3:33 AM TRIBAL JUDGE Gender Identity Not on file Sexual Orientation Not on file documented as of this encounter Plan of Treatment Upcoming Encounters Date Type Department Care Team (Late st Contact Info) Description 10/02/2024 11:45 AM CDT Office Visit [facility] Oncology and Hematology - [place] [address] [place] [address] [address] [place] [address] [place] [address] [place] [address] [address] [place] [address] documented as of this encounter Visit Diagnoses Not on filedocumented in this encounter Care Teams Life Skills Consultant Relationship Specialty Start Date End Date Abrahan Mcgee MD [address] [place] [address] PCP - General Family Practice 04/03/24 documented as of this encounter
--- OUTSIDE RECORDS SUMMARY | 2024-09-28 19:20 | XMS_ITS | Encounter Summary ---
Author Organization [facility] Address [address] [place] [address] Care Team Providers Care Radio Presenter Name Role Phone Abrahan Mcgee MD Primary Care Provider [phone] Encounter Details Date Type Department Care Team (Latest Contact Info) Description 11/27/2004 Outpatient Historical HIS [facility] ЕКАТЕРИНА Sneed, Oscar Medeiros MD NO ADDRESS ON FILE SCREENING MAMM-MAILG NEOPL NEC (Primary Dx) Social History Tobacco Use Types Packs/Day Years Used Date Smoking Tobacco: Never Assessed Comments Unknown Sex and Gender Information Value Date Recorded Sex Assigned at Not on file Legal Sex Female 3:33 AM COLLAR TURNER OPERATOR Gender Identity Not on file Sexual Orientation Not on file documented as of this encounter Plan of Treatment Upcoming Encounters Date Type Department Care Team (Late st Contact Info) Description 10/02/2024 11:45 AM CDT Office Visit [facility] Oncology and Hematology - [place] [address] [place] [address] [address] [place] [address] [place] [address] [place] [address] [address] [place] [address] documented as of this encounter Visit Diagnoses Diagnosis Other screening mammogram- Primary documented in this encounter Care Teams Radio Presenter Relationship Specialty Start Date End Date Abrahan Mcgee MD [address] [place] [address] PCP - General Family Practice 04/03/24 documented as of this encounter
--- OUTSIDE RECORDS SUMMARY | 2024-09-28 19:20 | XMS_ITS | Encounter Summary ---
Author Organization [facility] Address [address] [place] [address] Care Team Providers Care Printed Forms Proofreader Name Role Phone Abrahan Mcgee MD Primary Care Provider [phone] Encounter Details Date Type Department Care Team (Late st Contact Info) Description 02/07/2004 Outpatient Historical HIS [facility] Andre Ernst MD NO ADDRESS ON FILE Social History Tobacco Use Types Packs/Day Years Used Date Smoking Tobacco: Never Assessed Comments Unknown Sex and Gender Information Value Date Recorded Sex Assigned at Not on file Legal Sex Female 3:33 AM WOOD DRILL OPERATOR Gender Identity Not on file Sexual Orientation Not on file documented as of this encounter Plan of Treatment Upcoming Encounters Date Type Department Care Team (Late st Contact Info) Description 10/02/2024 11:45 AM CDT Office Visit [facility] Oncology and Hematology - [place] [address] [place] [address] [address] [place] [address] [place] [address] [place] [address] [address] [place] [address] documented as of this encounter Visit Diagnoses Not on filedocumented in this encounter Care Teams Printed Forms Proofreader Relationship Specialty Start Date End Date Abrahan Mcgee MD [address] [place] [address] PCP - General Family Practice 04/03/24 documented as of this encounter
--- OUTSIDE RECORDS SUMMARY | 2024-09-28 19:20 | XMS_ITS | Encounter Summary ---
Author Organization [facility] Address 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 Gender Identity Not on file Sexual Orientation Not on file documented as of this encounter Plan of Treatment Upcoming Encounters Date Type Department Care Team (Late st Contact Info) Description 10/02/2024 11:45 AM CDT Office Visit [facility] Oncology and Hematology - [place] [address] [place] [address] [address] [place] [address] [place] [address] [place] [address] [address] [place] [address] documented as of this encounter Visit Diagnoses Diagnosis Essential hypertension, benign- Primary documented in this encounter Care Teams Patient Services Assistant Relationship Specialty Start Date End Date Abrahan Mcgee MD [address] [place] [address] PCP - General Family Practice 04/03/24 documented as of this encounter
--- OUTSIDE RECORDS SUMMARY | 2024-09-28 19:20 | XMS_ITS | Encounter Summary ---
Author Organization [facility] Address [address] [place] [address] Care Team Providers Care Relief Worker Name Role Phone Abrahan Mcgee MD Primary Care Provider [phone] Encounter Details Date Type Department Care Team (Late st Contact Info) Description 12/17/2004 Outpatient Historical [facility] Meryl Perry MD [address] [address] BENIGN NEOPLASM LG BOWEL (Primary Dx) Social History Tobacco Use Types Packs/Day Years Used Date Smoking Tobacco: Never Assessed Comments Unknown Sex and Gender Information Value Date Recorded Sex Assigned at Not on file Legal Sex Female 3:33 AM ASSISTANT PRINCIPAL Gender Identity Not on file Sexual Orientation Not on file documented as of this encounter Plan of Treatment Upcoming Encounters Date Type Department Care Team (Late st Contact Info) Description 10/02/2024 11:45 AM CDT Office Visit [facility] Oncology and Hematology - [place] [address] [facility] [address] [place] [address] Prince Mir MD [address] [facility] [address] [place] [address] documented as of this encounter Visit Diagnoses Diagnosis Benign neoplasm of colon- Primary documented in this encounter Care Teams Relief Worker Relationship Specialty Start Date End Date Abrahan Mcgee MD [address] [place] [address] PCP - General Family Practice 04/03/24 documented as of this encounter
--- OUTSIDE RECORDS SUMMARY | 2024-09-28 19:20 | XMS_ITS | Encounter Summary ---
Author Organization [facility] Address [address] [place] [address] Care Team Providers Care Production Line Manager Name Role Phone Abrahan Mcgee MD Primary Care Provider [phone] Encounter Details Date Type Department Care Team (Latest Contact Info) Description 10/17/2002 Outpatient Historical HIS [facility] Andre Vidal MD NO ADDRESS ON FILE PURE HYPERCHOLESTEROLEM (Primary Dx) Social History Tobacco Use Types Packs/Day Years Used Date Smoking Tobacco: Never Assessed Comments Unknown Sex and Gender Information Value Date Recorded Sex Assigned at Not on file Legal Sex Female 3:33 AM SAP MOBILITY ARCHITECT Gender Identity Not on file Sexual Orientation Not on file documented as of this encounter Plan of Treatment Upcoming Encounters Date Type Department Care Team (Late st Contact Info) Description 10/02/2024 11:45 AM CDT Office Visit [facility] Oncology and Hematology - [place] [address] [place] [address] [address] [place] [address] [place] [address] [place] [address] [address] [place] [address] documented as of this encounter Visit Diagnoses Diagnosis Pure hypercholesterolemia- Primary documented in this encounter Care Teams Production Line Manager Relationship Specialty Start Date End Date Abrahan Mcgee MD [address] [place] [address] PCP - General Family Practice 04/03/24 documented as of this encounter
--- OUTSIDE RECORDS SUMMARY | 2024-09-28 19:20 | XMS_ITS | Encounter Summary ---
Author Organization [facility] Address [address] [place] [address] Care Team Providers Care Job Setter Honing Name Role Phone Abrahan Mcgee MD Primary Care Provider [phone] Encounter Details Date Type Department Care Team (Late st Contact Info) Description 07/13/2003 Outpatient Historical [facility] Meryl Perry MD [address] [place] [address] [address] ABDOMINAL PAIN OTHER SPEC SITE (Primary Dx) Social History Tobacco Use Types Packs/Day Years Used Date Smoking Tobacco: Never Assessed Comments Unknown Sex and Gender Information Value Date Recorded Sex Assigned at Not on file Legal Sex Female 3:33 AM BUILDING CODE ADMINISTRATOR Gender Identity Not on file Sexual Orientation Not on file documented as of this encounter Plan of Treatment Upcoming Encounters Date Type Department Care Team (Late st Contact Info) Description 10/02/2024 11:45 AM CDT Office Visit [facility] Oncology and Hematology - [place] [address] [facility] [address] [place] [address] Prince Mir MD [address] [facility] [address] [place] [address] documented as of this encounter Visit Diagnoses Diagnosis Abdominal pain, other specified site- Primary documented in this encounter Care Teams Job Setter Honing Relationship Specialty Start Date End Date Abrahan Mcgee MD [address] [place] [address] PCP - General Family Practice 04/03/24 documented as of this encounter
--- OUTSIDE RECORDS SUMMARY | 2024-09-28 19:20 | XMS_ITS | Encounter Summary ---
Author Organization [facility] Address [address] [place] [address] Care Team Providers Care Special Assets Officer Name Role Phone Abrahan Mcgee MD Primary Care Provider [phone] Encounter Details Date Type Department Care Team (Late st Contact Info) Description 07/30/2005 Outpatient Historical [facility] Andre Ernst MD NO ADDRESS ON FILE Social History Tobacco Use Types Packs/Day Years Used Date Smoking Tobacco: Never Assessed Comments Unknown Sex and Gender Information Value Date Recorded Sex Assigned at Not on file Legal Sex Female 3:33 AM LETTER OF CREDIT CLERK Gender Identity Not on file Sexual Orientation Not on file documented as of this encounter Plan of Treatment Upcoming Encounters Date Type Department Care Team (Late st Contact Info) Description 10/02/2024 11:45 AM CDT Office Visit [facility] Oncology and Hematology - [place] [address] [place] [address] [address] [place] [address] [place] [address] [place] [address] [address] [place] [address] documented as of this encounter Visit Diagnoses Not on filedocumented in this encounter Care Teams Special Assets Officer Relationship Specialty Start Date End Date Abrahan Mcgee MD [address] [place] [address] PCP - General Family Practice 04/03/24 documented as of this encounter
--- OUTSIDE RECORDS SUMMARY | 2024-09-28 19:20 | XMS_ITS | Encounter Summary ---
Author Organization [facility] Address [address] [place] [address] Care Team Providers Care Director Of Strategic Marketing Name Role Phone Abrahan Mcgee MD Primary Care Provider [phone] Encounter Details Date Type Department Care Team (Late st Contact Info) Description 02/23/2005 Outpatient Historical [facility] Adult Hospitalists [facility] [address] [place] [address] Deisy Garcia MD [id number] [place] [address] Social History Tobacco Use Types Packs/Day Years Used Date Smoking Tobacco: Never Assessed Comments Unknown Sex and Gender Information Value Date Recorded Sex Assigned at Not on file Legal Sex Female 3:33 AM AIR TOOL OPERATOR Gender Identity Not on file Sexual Orientation Not on file documented as of this encounter Plan of Treatment Upcoming Encounters Date Type Department Care Team (Late st Contact Info) Description 10/02/2024 11:45 AM CDT Office Visit [facility] Oncology and Hematology - [place] [address] [facility] [address] [place] [address] Prince Mir MD [address] [facility] [address] [place] [address] documented as of this encounter Visit Diagnoses Not on filedocumented in this encounter Care Teams Director Of Strategic Marketing Relationship Specialty Start Date End Date Abrahan Mcgee MD [address] [place] [address] PCP - General Family Practice 04/03/24 documented as of this encounter
--- OUTSIDE RECORDS SUMMARY | 2024-09-28 19:20 | XMS_ITS | Encounter Summary ---
Author Organization [facility] Address 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 Gender Identity Not on file Sexual Orientation Not on file documented as of this encounter Plan of Treatment Upcoming Encounters Date Type Department Care Team (Late st Contact Info) Description 10/02/2024 11:45 AM CDT Office Visit [facility] Oncology and Hematology - [place] [address] [facility] [address] [place] [address] Prince Mir MD [address] [facility] [address] [place] [address] documented as of this encounter [...] ORDERABLES Final Re sult Performing Organization Address [facility] de Phone Number INTERFACE SYSTEM Refer to clinic/hospital department * (ABNORMAL) CBC WITH DIFFERENTIAL (06/11/2005 11:29 AM CDT) Pathologist [facility] WBC 8.1 4.0 - 9.8 K/uL INTERFACE [...] ORDERABLES Final Re sult Performing Organization Address [facility] Co de Phone [...] Headache documented in this encounter Care Teams Delivery Aide Relationship Specialty Start Date End Date Abrahan Mcgee MD [address] [place] [address] PCP - General Family Practice 04/03/24 documented as of this encounter
--- OUTSIDE RECORDS SUMMARY | 2024-09-28 19:20 | XMS_ITS | Encounter Summary ---
Author Organization [facility] Address [address] [place] [address] Care Team Providers Care Alliances Consultant Name Role Phone Abrahan Mcgee MD Primary Care Provider [phone] Encounter Details Date Type Department Care Team (Latest Contact Info) Description 06/05/2004 Outpatient Historical HIS [facility] Andre Vidal MD NO ADDRESS ON FILE BENIGN HYPERTENSION (Primary Dx) Social History Tobacco Use Types Packs/Day Years Used Date Smoking Tobacco: Never Assessed Comments Unknown Sex and Gender Information Value Date Recorded Sex Assigned at Not on file Legal Sex Female 3:33 AM REPAIRER WELDING EQUIPMENT Gender Identity Not on file Sexual Orientation Not on file documented as of this encounter Plan of Treatment Upcoming Encounters Date Type Department Care Team (Late st Contact Info) Description 10/02/2024 11:45 AM CDT Office Visit [facility] Oncology and Hematology - [place] [address] [facility] [address] [place] [address] Prince Mir MD [address] [facility] [address] [place] [address] documented as of this encounter [...] Primary documented in this encounter Care Teams Alliances Consultant Relationship Specialty Start Date End Date Abrahan Mcgee MD [address] [place] [address] PCP - General Family Practice 04/03/24 documented as of this encounter
--- OUTSIDE RECORDS SUMMARY | 2024-09-28 19:20 | XMS_ITS | Encounter Summary ---
Author Organization [facility] Address [address] [place] [address] Care Team Providers Care Glass Calibrator Name Role Phone Abrahan Mcgee MD Primary Care Provider [phone] Encounter Details Date Type Department Care Team (Latest Contact Info) Description 07/06/2003 Outpatient Historical HIS [facility] Andre Vidal MD NO ADDRESS ON FILE BENIGN HYPERTENSION (Primary Dx) Social History Tobacco Use Types Packs/Day Years Used Date Smoking Tobacco: Never Assessed Comments Unknown Sex and Gender Information Value Date Recorded Sex Assigned at Not on file Legal Sex Female 3:33 AM HOUSING COORDINATOR Gender Identity Not on file Sexual Orientation Not on file documented as of this encounter Plan of Treatment Upcoming Encounters Date Type Department Care Team (Late st Contact Info) Description 10/02/2024 11:45 AM CDT Office Visit [facility] Oncology and Hematology - [place] [address] [place] [address] [address] [place] [address] [place] [address] [place] [address] [address] [place] [address] documented as of this encounter Visit Diagnoses Diagnosis Essential hypertension, benign- Primary documented in this encounter Care Teams Glass Calibrator Relationship Specialty Start Date End Date Abrahan Mcgee MD [address] [place] [address] PCP - General Family Practice 04/03/24 documented as of this encounter
--- OUTSIDE RECORDS SUMMARY | 2024-09-28 19:20 | XMS_ITS | Encounter Summary ---
Author Organization [facility] Address [address] [place] [address] Care Team Providers Care Sales Floor Team Leader Name Role Phone Abrahan Mcgee MD Primary Care Provider [phone] Encounter Details Date Type Department Care Team (Late st Contact Info) Description 12/18/2004 Outpatient Historical HIS [facility] Andre Ernst MD NO ADDRESS ON FILE Social History Tobacco Use Types Packs/Day Years Used Date Smoking Tobacco: Never Assessed Comments Unknown Sex and Gender Information Value Date Recorded Sex Assigned at Not on file Legal Sex Female 3:33 AM TELEPHONE ANSWERING SERVICE OPERATOR Gender Identity Not on file Sexual Orientation Not on file documented as of this encounter Plan of Treatment Upcoming Encounters Date Type Department Care Team (Late st Contact Info) Description 10/02/2024 11:45 AM CDT Office Visit [facility] Oncology and Hematology - [place] [address] [place] [address] [address] [place] [address] [place] [address] [place] [address] [address] [place] [address] documented as of this encounter Visit Diagnoses Not on filedocumented in this encounter Care Teams Sales Floor Team Leader Relationship Specialty Start Date End Date Abrahan Mcgee MD [address] [place] [address] PCP - General Family Practice 04/03/24 documented as of this encounter
--- OUTSIDE RECORDS SUMMARY | 2024-09-28 19:20 | XMS_ITS | Encounter Summary ---
Author Organization [facility] Address [address] [place] [address] Care Team Providers Care Pbx Technician Name Role Phone Abrahan Mcgee MD Primary Care Provider [phone] Encounter Details Date Type Department Care Team (Latest Contact Info) Description 01/06/2006 Outpatient Historical HIS [facility] Andre Vidal MD NO ADDRESS ON FILE Cervicalgia (Primary Dx) Social History Tobacco Use Types Packs/Day Years Used Date Smoking Tobacco: Never Assessed Comments Unknown Sex and Gender Information Value Date Recorded Sex Assigned at Not on file Legal Sex Female 3:33 AM HEART DOCTOR Gender Identity Not on file Sexual Orientation Not on file documented as of this encounter Plan of Treatment Upcoming Encounters Date Type Department Care Team (Late st Contact Info) Description 10/02/2024 11:45 AM CDT Office Visit [facility] Oncology and Hematology - [place] [address] [place] [address] [address] [place] [address] [place] [address] [place] [address] [address] [place] [address] documented as of this encounter Visit Diagnoses Diagnosis Cervicalgia- Primary documented in this encounter Care Teams Pbx Technician Relationship Specialty Start Date End Date Abrahan Mcgee MD [address] [place] [address] PCP - General Family Practice 04/03/24 documented as of this encounter
--- OUTSIDE RECORDS SUMMARY | 2024-09-28 19:20 | XMS_ITS | Encounter Summary ---
Author Organization [facility] Address [address] [place] [address] Care Team Providers Care Tax Associate Attorney Name Role Phone Abrahan Mcgee MD Primary Care Provider [phone] Encounter Details Date Type Department Care Team (Latest Contact Info) Description 11/19/2003 Outpatient Historical HIS [facility] Andre Vidal MD NO ADDRESS ON FILE HYPOPOTASSEMIA (Primary Dx) Social History Tobacco Use Types Packs/Day Years Used Date Smoking Tobacco: Never Assessed Comments Unknown Sex and Gender Information Value Date Recorded Sex Assigned at Not on file Legal Sex Female 3:33 AM DATA ENTRY ANALYST Gender Identity Not on file Sexual Orientation Not on file documented as of this encounter Plan of Treatment Upcoming Encounters Date Type Department Care Team (Late st Contact Info) Description 10/02/2024 11:45 AM CDT Office Visit [facility] Oncology and Hematology - [place] [address] [place] [address] [address] [place] [address] [place] [address] [place] [address] [address] [place] [address] documented as of this encounter Visit Diagnoses Diagnosis Hypopotassemia- Primary documented in this encounter Care Teams Tax Associate Attorney Relationship Specialty Start Date End Date Abrahan Mcgee MD [address] [place] [address] PCP - General Family Practice 04/03/24 documented as of this encounter
--- OUTSIDE RECORDS SUMMARY | 2024-09-28 19:20 | XMS_ITS | Encounter Summary ---
Author Organization [facility] Address [address] [place] [address] Care Team Providers Care Manager Imaging Name Role Phone Abrahan Mcgee MD Primary Care Provider [phone] Encounter Details Date Type Department Care Team (Late st Contact Info) Description 09/16/2004 Outpatient Historical HIS [facility] Andre Ernst MD NO ADDRESS ON FILE Social History Tobacco Use Types Packs/Day Years Used Date Smoking Tobacco: Never Assessed Comments Unknown Sex and Gender Information Value Date Recorded Sex Assigned at Not on file Legal Sex Female 3:33 AM RECREATION FACILITY MANAGER Gender Identity Not on file Sexual Orientation Not on file documented as of this encounter Plan of Treatment Upcoming Encounters Date Type Department Care Team (Late st Contact Info) Description 10/02/2024 11:45 AM CDT Office Visit [facility] Oncology and Hematology - [place] [address] [place] [address] [address] [place] [address] [place] [address] [place] [address] [address] [place] [address] documented as of this encounter Visit Diagnoses Not on filedocumented in this encounter Care Teams Manager Imaging Relationship Specialty Start Date End Date Abrahan Mcgee MD [address] [place] [address] PCP - General Family Practice 04/03/24 documented as of this encounter
--- OUTSIDE RECORDS SUMMARY | 2024-09-28 19:20 | XMS_ITS | Encounter Summary ---
Author Organization [facility] Address [address] [place] [address] Care Team Providers Care Biostatistician Name Role Phone Abrahan Mcgee MD Primary Care Provider [phone] Encounter Details Date Type Department Care Team (Late st Contact Info) Description 11/19/2003 Outpatient Historical HIS [facility] Andre Ernst MD NO ADDRESS ON FILE Social History Tobacco Use Types Packs/Day Years Used Date Smoking Tobacco: Never Assessed Comments Unknown Sex and Gender Information Value Date Recorded Sex Assigned at Not on file Legal Sex Female 3:33 AM SPONGE HOOKER Gender Identity Not on file Sexual Orientation Not on file documented as of this encounter Plan of Treatment Upcoming Encounters Date Type Department Care Team (Late st Contact Info) Description 10/02/2024 11:45 AM CDT Office Visit [facility] Oncology and Hematology - [place] [address] [place] [address] [address] [place] [address] [place] [address] [place] [address] [address] [place] [address] documented as of this encounter Visit Diagnoses Not on filedocumented in this encounter Care Teams Biostatistician Relationship Specialty Start Date End Date Abrahan Mcgee MD [address] [place] [address] PCP - General Family Practice 04/03/24 documented as of this encounter
--- OUTSIDE RECORDS SUMMARY | 2024-09-28 19:20 | XMS_ITS | Encounter Summary ---
Author Organization [facility] Address [address] [place] [address] Care Team Providers Care Front End Developer Name Role Phone Abrahan Mcgee MD Primary Care Provider [phone] Encounter Details Date Type Department Care Team (Latest Contact Info) Description 08/15/2003 Outpatient Historical HIS [facility] Andre Vidal MD NO ADDRESS ON FILE HYPOPOTASSEMIA (Primary Dx) Social History Tobacco Use Types Packs/Day Years Used Date Smoking Tobacco: Never Assessed Comments Unknown Sex and Gender Information Value Date Recorded Sex Assigned at Not on file Legal Sex Female 3:33 AM LANGUAGE INSTRUCTOR Gender Identity Not on file Sexual Orientation Not on file documented as of this encounter Plan of Treatment Upcoming Encounters Date Type Department Care Team (Late st Contact Info) Description 10/02/2024 11:45 AM CDT Office Visit [facility] Oncology and Hematology - [place] [address] [place] [address] [address] [place] [address] [place] [address] [place] [address] [address] [place] [address] documented as of this encounter Visit Diagnoses Diagnosis Hypopotassemia- Primary documented in this encounter Care Teams Front End Developer Relationship Specialty Start Date End Date Abrahan Mcgee MD [address] [place] [address] PCP - General Family Practice 04/03/24 documented as of this encounter
--- OUTSIDE RECORDS SUMMARY | 2024-09-28 19:20 | XMS_ITS | Encounter Summary ---
Author Organization [facility] Address [address] [place] [address] Care Team Providers Care Behavioral Instructor Name Role Phone Abrahan Mcgee MD Primary Care Provider [phone] Encounter Details Date Type Department Care Team [...] on file Legal Sex Female 3:33 AM SNOWMAKER Gender Identity Not on file Sexual Orientation Not on file documented as of this encounter Plan of Treatment Upcoming Encounters Date Type Department Care Team (Late st Contact Info) Description 10/02/2024 11:45 AM CDT Office Visit [facility] Oncology and Hematology - [place] [address] [place] [address] [address] [place] [address] Prince Mir MD [address] [place] [address] [address] [place] [address] documented as of this encounter Visit Diagnoses Diagnosis Allergic rhinitis due to pollen- Primary documented in this encounter Care Teams Behavioral Instructor Relationship Specialty Start Date End Date Abrhaan Mcgee MD [address] [place] [address] PCP - General Family Practice 04/03/24 documented as of this encounter
--- OUTSIDE RECORDS SUMMARY | 2024-09-28 19:20 | XMS_ITS | Encounter Summary ---
Author Organization [facility] Address [address] [place] [address] Care Team Providers Care Ship Engines Operating Engineer Name Role Phone Abrahan Mcgee MD Primary Care Provider [phone] Encounter Details Date Type Department Care Team (Late st Contact Info) Description 07/09/2005 Outpatient Historical [facility] Andre Ernst MD NO ADDRESS ON FILE Social History Tobacco Use Types Packs/Day Years Used Date Smoking Tobacco: Never Assessed Comments Unknown Sex and Gender Information Value Date Recorded Sex Assigned at Not on file Legal Sex Female 3:33 AM TRAFFIC WORKER Gender Identity Not on file Sexual Orientation Not on file documented as of this encounter Plan of Treatment Upcoming Encounters Date Type Department Care Team (Late st Contact Info) Description 10/02/2024 11:45 AM CDT Office Visit [facility] Oncology and Hematology - [place] [address] [place] [address] [address] [place] [address] [place] [address] [place] [address] [address] [place] [address] documented as of this encounter Visit Diagnoses Not on filedocumented in this encounter Care Teams Ship Engines Operating Engineer Relationship Specialty Start Date End Date Abrahan Mcgee MD [address] [place] [address] PCP - General Family Practice 04/03/24 documented as of this encounter
--- OUTSIDE RECORDS SUMMARY | 2024-09-28 19:20 | XMS_ITS | Encounter Summary ---
Author Organization [facility] Address [address] [place] [address] Care Team Providers Care Pre Algebra Teacher Name Role Phone Abrahan Mcgee MD Primary Care Provider [phone] Encounter Details Date Type Department Care Team (Latest Contact Info) Description 03/06/2004 Outpatient Historical HIS [facility] Andre Vidal MD NO ADDRESS ON FILE HYPOPOTASSEMIA (Primary Dx) Social History Tobacco Use Types Packs/Day Years Used Date Smoking Tobacco: Never Assessed Comments Unknown Sex and Gender Information Value Date Recorded Sex Assigned at Not on file Legal Sex Female 3:33 AM WASTEWATER DESIGN ENGINEER Gender Identity Not on file Sexual Orientation Not on file documented as of this encounter Plan of Treatment Upcoming Encounters Date Type Department Care Team (Late st Contact Info) Description 10/02/2024 11:45 AM CDT Office Visit [facility] Oncology and Hematology - [place] [address] [facility] [address] [place] [address] Prince Mir MD [address] [facility] [address] [place] [address] documented as of this encounter Procedures Procedure Name Priority Date/Time Associated Diagnosis Comments COMPREHENSIVE METABOLIC PANEL Routine 03/06/2004 11:12 AM WASTEWATER DESIGN ENGINEER documented in this encounter Results * (ABNORMAL) COMPREHENSIVE METABOLIC PANEL (03/06/2004 11:12 AM WASTEWATER DESIGN ENGINEER) GLUCOSE 95 65 - 109 mg/dL [...] by 2nd methodology. 03/06/2004 11:1 2 AM WASTEWATER DESIGN ENGINEER us Andre Ernst MD CHEMISTRY ORDERABLES Final Res ult INTERFACE SYSTEM Refer to clinic/hospital department documented in this encounter Visit Diagnoses Diagnosis Hypopotassemia- Primary documented in this encounter Care Teams Pre Algebra Teacher Relationship Specialty Start Date End Date Abrahan Mcgee MD [address] [place] [address] PCP - General Family Practice 04/03/24 documented as of this encounter
--- OUTSIDE RECORDS SUMMARY | 2024-09-28 19:20 | XMS_ITS | Encounter Summary ---
Author Organization [facility] Address [address] [place] [address] Care Team Providers Care Workforce Specialist Name Role Phone Abrahan Mcgee MD Primary Care Provider [phone] Encounter Details Date Type Department Care Team (Late st Contact Info) Description 11/27/2002 Outpatient Historical HIS [facility] Berta Monae MD [address] [place] [address] Social History Tobacco Use Types Packs/Day Years Used Date Smoking Tobacco: Never Assessed Comments Unknown Sex and Gender Information Value Date Recorded Sex Assigned at Not on file Legal Sex Female 3:33 AM CMM INSPECTOR Gender Identity Not on file Sexual Orientation Not on file documented as of this encounter Plan of Treatment Upcoming Encounters Date Type Department Care Team (Late st Contact Info) Description 10/02/2024 11:45 AM CDT Office Visit [facility] Oncology and Hematology - [place] [address] [place] [address] [address] [place] [address] Prince Mir MD [address] [facility] [address] [place] [address] documented as of this encounter Visit Diagnoses Not on filedocumented in this encounter Care Teams Workforce Specialist Relationship Specialty Start Date End Date Abrahan Mcgee MD [address] [place] [address] PCP - General Family Practice 04/03/24 documented as of this encounter
--- OUTSIDE RECORDS SUMMARY | 2024-09-28 19:20 | XMS_ITS | Encounter Summary ---
Author Organization [facility] Address 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 [address] [place] [address] documented as of this encounter [...] ORDERABLES Final Re sult Performing Organization Address City/[facility] [[email or web address]] Co de Phone Number INTERFACE SYSTEM Refer to clinic/hospital department * TSH (09/16/2004 11:48 AM CDT) TSH 1.55 0.27 - 4.20 uU/mL INTERFACE SYSTEM 09/16/2004 11:4 8 AM CDT Andre Ernst MD CHEMISTRY ORDERABLES Final Res ult Performing Organization Address City/[facility] [[email or web address]] Co de Phone Number INTERFACE SYSTEM Refer [...] ORDERABLES Final Res ult Performing Organization Address City/[facility] [[email or web address]] Co de Phone Number INTERFACE SYSTEM Refer to clinic/hospital department documented in this encounter Visit Diagnoses Diagnosis Essential hypertension, benign- Primary documented in this encounter Care Teams Patient Intake Coordinator Relationship Specialty Start Date End Date Abrahan Mcgee MD [address] [place] [address] PCP - General Family Practice 04/03/24 documented as of this encounter
--- OUTSIDE RECORDS SUMMARY | 2024-09-28 19:20 | XMS_ITS | Encounter Summary ---
Author Organization [facility] Address [address] [place] [address] Care Team Providers Care Water Carter Name Role Phone Abrahan Mcgee MD Primary Care Provider [phone] Encounter Details Date Type Department Care Team (Late st Contact Info) Description 07/27/2003 Outpatient Historical HIS [facility] Perry, Meryl Pereira MD [address] [address] ABNORMAL FINDINGS-GI TRACT (Primary Dx) Social History Tobacco Use Types Packs/Day Years Used Date Smoking Tobacco: Never Assessed Comments Unknown Sex and Gender Information Value Date Recorded Sex Assigned at Not on file Legal Sex Female 3:33 AM PEARL PELLER Gender Identity Not on file Sexual Orientation Not on file documented as of this encounter Plan of Treatment Upcoming Encounters Date Type Department Care Team (Late st Contact Info) Description 10/02/2024 11:45 AM CDT Office Visit [facility] Oncology and Hematology - [place] [address] [facility] [address] [place] [address] Prince Mir MD [address] [facility] [address] [place] [address] documented as of this encounter Visit Diagnoses Diagnosis Nonspecific (abnormal) findings on radiological and other examination of gastrointestinal tract- Primary documented in this encounter Care Teams Water Carter Relationship Specialty Start Date End Date Abrahan Mcgee MD [address] [address] PCP - General Family Practice 04/03/24 documented as of this encounter
--- OUTSIDE RECORDS SUMMARY | 2024-09-28 19:20 | XMS_ITS | Clinical Summary ---
Author Organization [facility] Address [address] [place] [address] Care Team Providers Care Fashion Show Director Name Role Phone Luigi Nicole PA-C Primary Care Provider Luigi Nicole PA-C Unavailable [phone] Allergies Active Allergy Reactions Criticality Noted Date [...] (eight) hours as needed. 07/08/19 Active ZENPEP 81887-55499 units CAPSULE ENTERIC COATED PARTICLES Take by [...] mouth nightly. Every other month Active Pancrelipase, Ctf-Puqd-Haup, 87580-[address] units CAPSULE ENTERIC COATED PARTICLES Take 50,000 [...] drink = 0.6 oz pur e alcohol) [facility] Utilities Answer Date Recorded In the [...] any time in the past 12 m [facility], were you homeless or living in a prison (including now)? No 08/20/2023 Comments No Sex [...] 10:05 AM 08/21/2023 1:30 PM Care Teams Fashion Show Director Relationship Specialty Start Date End Date Luigi Nicole PA-C [address] [address] PCP - General PHYSICIAN WOOD POLISHER 08/20/23 Luigi Nicole PA-C [address] [address] PHYSICIAN WOOD POLISHER 08/20/23
--- OUTSIDE RECORDS SUMMARY | 2024-09-28 19:20 | XMS_ITS | Encounter Summary ---
Author Organization [facility] Address [address] [place] [address] Care Team Providers Care Senior Cytotechnologist Name Role Phone Abrahan Mcgee MD Primary Care Provider [phone] Encounter Details Date Type Department Care Team (Latest Contact Info) Description 08/15/2004 Outpatient Historical HIS [facility] Andre Vidal MD NO ADDRESS ON FILE HYPOPOTASSEMIA (Primary Dx) Social History Tobacco Use Types Packs/Day Years Used Date Smoking Tobacco: Never Assessed Comments Unknown Sex and Gender Information Value Date Recorded Sex Assigned at Not on file Legal Sex Female 3:33 AM INTAKE RN Gender Identity Not on file Sexual Orientation Not on file documented as of this encounter Plan of Treatment Upcoming Encounters Date Type Department Care Team (Late st Contact Info) Description 10/02/2024 11:45 AM CDT Office Visit [facility] Oncology and Hematology - [place] [address] [facility] [address] [place] [address] Prince Mir MD [address] [facility] [address] [place] [address] documented as of this encounter [...] documented in this encounter Care Teams Senior Cytotechnologist Relationship Specialty Start Date End Date Abrahan Mcgee MD [address] [place] [address] PCP - General Family Practice 04/03/24 documented as of this encounter
--- OUTSIDE RECORDS SUMMARY | 2024-09-28 19:20 | XMS_ITS | Encounter Summary ---
Author Organization [facility] Address [address] [place] [address] Care Team Providers Care Cafeteria Cook Name Role Phone Abrahan Mcgee MD Primary Care Provider [phone] Encounter Details Date Type Department Care Team (Latest Contact Info) Description 02/23/2005 Inpatient Historical [facility] Alcon Valadez MD [address] [address] Deisy Garcia MD [address] [address] CHEST PAIN NOS (Primary Dx) Social History Tobacco Use Types Packs/Day Years Used Date Smoking Tobacco: Never Assessed Comments Unknown Sex and Gender Information Value Date Recorded Sex Assigned at Not on file Legal Sex Female 3:33 AM SACK MAKER Gender Identity Not on file Sexual Orientation Not on file documented as of this encounter Plan of Treatment Upcoming Encounters Date Type Department Care Team (Late st Contact Info) Description 10/02/2024 11:45 AM CDT Office Visit [facility] Oncology and Hematology - [place] [address] [facility] [address] [place] [address] Prince Mir MD [address] [facility] [address] [place] [address] documented as of this encounter Procedures Procedure Name Priority Date/Time Associated Diagnosis Comments CBC WITH DIFFERENTIAL Routine 02/25/2005 4:30 AM SACK MAKER CBC WITH DIFFERENTIAL Routine 02/25/2005 4:30 AM SACK MAKER C-REACTIVE PROTEIN Routine 02/25/2005 4: 30 AM SACK MAKER T3 FREE Routine 02/25/2005 4:30 AM SACK MAKER T4 FREE Routine 02/25/2005 4:30 AM SACK MAKER BASIC METABOLIC PANEL Routine 02/25/2005 4:30 AM SACK MAKER TSH Routine 02/24/2005 4:35 AM SACK MAKER LIPASE Routine 02/24/2005 4:35 AM SACK MAKER AMYLASE Routine 02/24/2005 4:35 AM SACK MAKER LIPID PANEL Routine 02/24/2005 4:35 AM SACK MAKER BASIC METABOLIC PANEL Routine 02/24/2005 4:35 AM SACK MAKER TROPONIN (W/REFLEX CKMB/CK) Routine 02/24/2005 4:15 AM SACK MAKER TROPONIN (W/REFLEX CKMB/CK) Routine 02/23/2005 10:15 PM SACK MAKER URINALYSIS W/REFLEX MICROSCOPIC Routine 02/23/2005 8:31 PM SACK MAKER TROPONIN (W/REFLEX CKMB/CK) Routine 02/23/2005 1:28 PM SACK MAKER CBC WITH DIFFERENTIAL Routine 02/23/2005 12:46 PM SACK MAKER CBC WITH DIFFERENTIAL Routine 02/23/2005 12:46 PM SACK MAKER LIPASE Routine 02/23/2005 12:46 PM SACK MAKER AMYLASE Routine 02/23/2005 12:46 PM SACK MAKER COMPREHENSIVE METABOLIC PANEL Routine 02/23/2005 12:46 PM SACK MAKER documented in this encounter Results * CBC WITH DIFFERENTIAL (02/25/2005 4:30 AM SACK MAKER) NEUTROPHILS 52 45 - 70 % INTERFAC [...] 0.20 K/uL INTERFACE SYSTEM 02/25/2005 4:30 AM SACK MAKER Alcon Valadez MD HEMATOLOGY ORDERABLES Final Re sult Performing Organization Address [facility] de Phone Number INTERFACE SYSTEM Refer to clinic/hospital department * (ABNORMAL) CBC WITH DIFFERENTIAL (02/25/2005 4:30 AM SACK MAKER) WBC 7.4 4.0 - 9.8 K/uL INTERFACE [...] 12.4 fL INTERFACE SYSTEM 02/25/2005 4:30 AM SACK MAKER Alcon Valadez MD HEMATOLOGY ORDERABLES Final Re sult Performing Organization Address [facility]/ZIP Co de Phone Number INTERFACE SYSTEM Refer to clinic/hospital department * T3 FREE (02/25/2005 4:30 AM SACK MAKER) T3 FREE 2.9 2.5 - 4.4 pg/mL INTERFACE SYSTEM 02/25/2005 4:30 AM SACK MAKER us Alcon Valadez MD CHEMISTRY ORDERABLES Final Res ult Performing Organization Address [facility] Phone Number INTERFACE SYSTEM Refer to clinic/hospital department * T4 FREE (02/25/2005 4:30 AM SACK MAKER) T4 FREE 1.3 0.9 - 1.7 ng/dL INTERFACE SYSTEM 02/25/2005 4:30 AM SACK MAKER us Alcon Valadez MD CHEMISTRY ORDERABLES Final Res ult Performing Organization Address [facility] Phone Number INTERFACE SYSTEM Refer to clinic/hospital department * C-REACTIVE PROTEIN (02/25/2005 4:30 AM SACK MAKER) CRP 0.6 0.0 - 0.8 mg/dL INTERFACE SYSTEM 02/25/2005 4:30 AM SACK MAKER us Alcon Valadez MD CHEMISTRY ORDERABLES Final Res ult Performing Organization Address [facility] Phone Number INTERFACE SYSTEM Refer to clinic/hospital department * BASIC METABOLIC PANEL (02/25/2005 4:30 AM SACK MAKER) GLUCOSE 89 65 - 109 mg/dL INTERFACE [...] 30 mmol/L INTERFACE SYSTEM 02/25/2005 4:30 AM SACK MAKER Alcon Valadez MD CHEMISTRY ORDERABLES Final Res ult Performing Organization Address [facility] Phone Number INTERFACE SYSTEM Refer to clinic/hospital department * (ABNORMAL) LIPASE (02/24/2005 4:35 AM SACK MAKER) LIPASE 90(H) 13 - 60 U/L INTERFAC E SYSTEM 02/24/2005 4:35 AM SACK MAKER us Nora Sivaprasad CHEMISTRY ORDERABLES Final Resu lt Performing Organization Address [facility] Phone Number INTERFACE SYSTEM Refer to clinic/hospital department * (ABNORMAL) AMYLASE (02/24/2005 4:35 AM SACK MAKER) AMYLASE 118(H) 28 - 100 U/L INTERFACE SYSTEM 02/24/2005 4:35 AM SACK MAKER Nora Sivaprasad CHEMISTRY ORDERABLES Final Resu lt Performing Organization Address [facility] Phone Number INTERFACE SYSTEM Refer to clinic/hospital department * (ABNORMAL) TSH (02/24/2005 4:35 AM SACK MAKER) TSH 4.33(H) 0.27 - 4.20 uU/mL INTERFACE SYSTEM 02/24/2005 4:35 AM SACK MAKER Nora Sivaprasad CHEMISTRY ORDERABLES Final Resu lt Performing Organization Address [facility] Phone Number INTERFACE SYSTEM Refer to clinic/hospital department * LIPID PANEL (02/24/2005 4:35 AM SACK MAKER) LIPID PANEL COMMENT See below INTERFACE SYSTEM [...] section for risk classifications. 02/24/2005 4:35 AM SACK MAKER [employer] CHEMISTRY ORDERABLES Final Resu lt Performing Organization Address [place]/[facility] Co de Phone Number INTERFACE SYSTEM Refer to clinic/hospital department * BASIC METABOLIC PANEL (02/24/2005 4:35 AM SACK MAKER) GLUCOSE 100 65 - 109 mg/dL INTERFACE [...] 30 mmol/L INTERFACE SYSTEM 02/24/2005 4:35 AM SACK MAKER Nora [employer] CHEMISTRY ORDERABLES Final Resu lt Performing Organization Address [place]/[facility]/ZIP Co de Phone Number INTERFACE SYSTEM Refer to clinic/hospital department * TROPONIN (W/REFLEX CKMB/CK) (02/24/2005 4:15 AM SACK MAKER) TROPONIN T <0.01 <=0.03 ng/mL INTERFACE SYSTEM TROPONIN T INTERP Negative INTERFACE SYSTEM 02/24/2005 4:15 AM SACK MAKER [facility] Sivaprasad CHEMISTRY ORDERABLES Final Resu lt Performing Organization Address [facility] Phone Number INTERFACE SYSTEM Refer to clinic/hospital department * TROPONIN (W/REFLEX CKMB/CK) (02/23/2005 10:15 PM SACK MAKER) TROPONIN T <0.01 <=0.03 ng/mL INTERFACE SYSTEM TROPONIN T INTERP Negative INTERFACE SYSTEM 02/23/2005 10:1 5 PM SACK MAKER [facility] GRUZOBZORaprasad CHEMISTRY ORDERABLES Final Resu lt Performing Organization Address [facility] Phone Number INTERFACE SYSTEM Refer to clinic/hospital department * (ABNORMAL) URINALYSIS (02/23/2005 8:31 PM SACK MAKER) COLOR UA Yellow INTERFACE SYSTEM CLARITY UA [...] 2-5 /HPF INTERFACE SYSTEM 02/23/2005 8:31 PM SACK MAKER [facility] Sivaprasad URINE ORDERABLES Final Result Performing Organization Address [facility] Phone Number INTERFACE SYSTEM Refer to clinic/hospital department * TROPONIN (W/REFLEX CKMB/CK) (02/23/2005 1:28 PM SACK MAKER) TROPONIN T <0.01 <=0.03 ng/mL INTERFACE SYSTEM TROPONIN T INTERP Negative INTERFACE SYSTEM 02/23/2005 1:28 PM SACK MAKER us Erika P Er CHEMISTRY ORDERABLES Final Resul t Performing Organization Address [facility] de Phone Number INTERFACE SYSTEM Refer to clinic/hospital department * CBC WITH DIFFERENTIAL (02/23/2005 12:46 PM SACK MAKER) NEUTROPHILS 70 45 - 70 % INTERFAC [...] K/uL INTERFACE SYSTEM 02/23/2005 12:4 6 PM SACK MAKER Jasbir Sol MD HEMATOLOGY ORDERABLES Final Re sult Performing Organization Address [facility] Phone Number INTERFACE SYSTEM Refer to clinic/hospital department * (ABNORMAL) CBC WITH DIFFERENTIAL (02/23/2005 12:46 PM SACK MAKER) WBC 9.3 4.0 - 9.8 K/uL INTERFACE [...] fL INTERFACE SYSTEM 02/23/2005 12:4 6 PM SACK MAKER Jasbir Sol MD HEMATOLOGY ORDERABLES Final Re sult Performing Organization Address [facility] Phone Number INTERFACE SYSTEM Refer to clinic/hospital department * (ABNORMAL) LIPASE (02/23/2005 12:46 PM SACK MAKER) LIPASE 91(H) 13 - 60 U/L INTERFAC E SYSTEM 02/23/2005 12:4 6 PM SACK MAKER Jasbir Sol MD CHEMISTRY ORDERABLES Final Res ult Performing Organization Address [facility] Phone Number INTERFACE SYSTEM Refer to clinic/hospital department * (ABNORMAL) AMYLASE (02/23/2005 12:46 PM SACK MAKER) AMYLASE 134(H) 28 - 100 U/L INTERFACE SYSTEM 02/23/2005 12:4 6 PM SACK MAKER Jasbir Sol MD CHEMISTRY ORDERABLES Final Res ult Performing Organization Address [facility] Phone Number INTERFACE SYSTEM Refer to clinic/hospital department * (ABNORMAL) COMPREHENSIVE METABOLIC PANEL (02/23/2005 12:46 PM SACK MAKER) GLUCOSE 115(H) 65 - 109 mg/dL INTERFACE [...] mmol/L INTERFACE SYSTEM 02/23/2005 12:4 6 PM SACK MAKER us Jasbir Sol MD CHEMISTRY ORDERABLES Final Res ult INTERFACE SYSTEM Refer to clinic/hospital department documented in this encounter Visit Diagnoses Diagnosis Chest pain, unspecified- Primary documented in this encounter Care Teams Cafeteria Cook Relationship Specialty Start Date End Date Abrahan Mcgee MD [address] [place] [address] PCP - General Family Practice 04/03/24 documented as of this encounter
--- OUTSIDE RECORDS SUMMARY | 2024-09-28 19:20 | XMS_ITS | Encounter Summary ---
Author Organization [facility] Address [address] [place] [address] Care Team Providers Care Blueprint Clerk Name Role Phone Abrahan Mcgee MD Primary Care Provider [phone] Encounter Details Date Type Department Care Team (Late st Contact Info) Description 06/05/2004 Outpatient Historical 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 Gender Identity Not on file Sexual Orientation Not on file documented as of this encounter Plan of Treatment Upcoming Encounters Date Type Department Care Team (Late st Contact Info) Description 10/02/2024 11:45 AM CDT Office Visit [facility] Oncology and Hematology - [place] [address] [place] [address] [address] [place] [address] [place] [address] [place] [address] [address] [place] [address] documented as of this encounter Visit Diagnoses Not on filedocumented in this encounter Care Teams Blueprint Clerk Relationship Specialty Start Date End Date Abrahan Mcgee MD [address] [place] [address] PCP - General Family Practice 04/03/24 documented as of this encounter
--- OUTSIDE RECORDS SUMMARY | 2024-09-28 19:20 | XMS_ITS | Encounter Summary ---
Author Organization [facility] Address [address] [place] [address] Care Team Providers Care Mattress Stripper Name Role Phone Abrahan Mcgee MD Primary Care Provider [phone] Encounter Details Date Type Department Care Team (Late st Contact Info) Description 03/22/2001 Outpatient Historical [facility] INTERNISTS Andre Ernst MD NO ADDRESS ON FILE Social History Tobacco Use Types Packs/Day Years Used Date Smoking Tobacco: Never Assessed Comments Unknown Sex and Gender Information Value Date Recorded Sex Assigned at Not on file Legal Sex Female 3:33 AM ACADEMIC ASSISTANT Gender Identity Not on file Sexual Orientation Not on file documented as of this encounter Plan of Treatment Upcoming Encounters Date Type Department Care Team (Late st Contact Info) Description 10/02/2024 11:45 AM CDT Office Visit [facility] Oncology and Hematology - [place] [address] [place] [address] [address] [place] [address] [place] [address] [place] [address] [address] [place] [address] documented as of this encounter Visit Diagnoses Not on filedocumented in this encounter Care Teams Mattress Stripper Relationship Specialty Start Date End Date Abrahan Mcgee MD [address] [place] [address] PCP - General Family Practice 04/03/24 documented as of this encounter
--- OUTSIDE RECORDS SUMMARY | 2024-09-28 19:20 | XMS_ITS | Encounter Summary ---
Author Organization [facility] Address [address] [place] [address] Care Team Providers Care Area Operations Director Name Role Phone Abrahan Mcgee MD Primary Care Provider [phone] Encounter Details Date Type Department Care Team (Late st Contact Info) Description 02/24/2005 Outpatient Historical [facility] [address] [place] [address] Carmine Morales MD NO ADDRESS ON FILE Social History Tobacco Use Types Packs/Day Years Used Date Smoking Tobacco: Never Assessed Comments Unknown Sex and Gender Information Value Date Recorded Sex Assigned at Not on file Legal Sex Female 3:33 AM METER INSTALLER AND REMOVER Gender Identity Not on file Sexual Orientation Not on file documented as of this encounter Plan of Treatment Upcoming Encounters Date Type Department Care Team (Late st Contact Info) Description 10/02/2024 11:45 AM CDT Office Visit [facility] Oncology and Hematology - [place] [address] [facility] [address] [place] [address] Prince Mir MD [address] [facility] [address] [place] [address] documented as of this encounter Visit Diagnoses Not on filedocumented in this encounter Care Teams Area Operations Director Relationship Specialty Start Date End Date Abrahan Mcgee MD [address] [place] [address] PCP - General Family Practice 04/03/24 documented as of this encounter
--- OUTSIDE RECORDS SUMMARY | 2024-09-28 19:20 | XMS_ITS | Encounter Summary ---
Author Organization [facility] Address [address] [place] [address] Care Team Providers Care Cyanide Pot Tender Name Role Phone Abrahan Mcgee MD Primary Care Provider [phone] Encounter Details Date Type Department Care Team [...] on file Legal Sex Female 3:33 AM VINYL FLOORING INSTALLER Gender Identity Not on file Sexual Orientation Not on file documented as of this encounter Plan of Treatment Upcoming Encounters Date Type Department Care Team (Late st Contact Info) Description 10/02/2024 11:45 AM CDT Office Visit [facility] Oncology and Hematology - [place] [address] [facility] [address] [place] [address] Prince Mir MD [address] [facility] [address] [place] [address] documented as of this encounter Visit Diagnoses Diagnosis Open wound of scalp, without mention of complication- Primary documented in this encounter Care Teams Cyanide Pot Tender Relationship Specialty Start Date End Date Abrahan Mcgee MD [address] [place] [address] PCP - General Family Practice 04/03/24 documented as of this encounter
--- OUTSIDE RECORDS SUMMARY | 2024-09-28 19:20 | XMS_ITS | Encounter Summary ---
Author Organization [facility] Address [address] [place] [address] Care Team Providers Care Spring Repairer Helper Hand Name Role Phone Abrahan Mcgee MD Primary Care Provider [phone] Encounter Details Date Type Department Care Team (Late st Contact Info) Description 12/04/2005 Outpatient Historical [facility] INTERNISTS Andre Ernst MD NO ADDRESS ON FILE Social History Tobacco Use Types Packs/Day Years Used Date Smoking Tobacco: Never Assessed Comments Unknown Sex and Gender Information Value Date Recorded Sex Assigned at Not on file Legal Sex Female 3:33 AM EXTERMINATOR Gender Identity Not on file Sexual Orientation Not on file documented as of this encounter Plan of Treatment Upcoming Encounters Date Type Department Care Team (Late st Contact Info) Description 10/02/2024 11:45 AM CDT Office Visit [facility] Oncology and Hematology - [place] [address] [place] [address] [address] [place] [address] [place] [address] [place] [address] [address] [place] [address] documented as of this encounter Visit Diagnoses Not on filedocumented in this encounter Care Teams Spring Repairer Helper Hand Relationship Specialty Start Date End Date Abrahan Mcgee MD [address] [place] [address] PCP - General Family Practice 04/03/24 documented as of this encounter
--- OUTSIDE RECORDS SUMMARY | 2024-09-28 19:20 | XMS_ITS | Encounter Summary ---
Author Organization [facility] Address [address] [place] [address] Care Team Providers Care Patient Day Coordinator Name Role Phone Abrahan Mcgee MD Primary Care Provider [phone] Encounter Details Date Type Department Care Team (Latest Contact Info) Description 11/24/2005 Outpatient Historical HIS [facility] Sneed, Oscar Medeiros MD NO ADDRESS ON FILE Other Screening Mammogram (Primary Dx) Social History Tobacco Use Types Packs/Day Years Used Date Smoking Tobacco: Never Assessed Comments Unknown Sex and Gender Information Value Date Recorded Sex Assigned at Not on file Legal Sex Female 3:33 AM VIDEO PRODUCER Gender Identity Not on file Sexual Orientation Not on file documented as of this encounter Plan of Treatment Upcoming Encounters Date Type Department Care Team (Late st Contact Info) Description 10/02/2024 11:45 AM CDT Office Visit [facility] Oncology and Hematology - [place] [address] [place] [address] [address] [place] [address] [place] [address] [place] [address] [address] [place] [address] documented as of this encounter Visit Diagnoses Diagnosis Other screening mammogram- Primary documented in this encounter Care Teams Patient Day Coordinator Relationship Specialty Start Date End Date Abrahan Mcgee MD [address] [place] [address] PCP - General Family Practice 04/03/24 documented as of this encounter
--- OUTSIDE RECORDS SUMMARY | 2024-09-28 19:20 | XMS_ITS | Encounter Summary ---
Author Organization [facility] Address [address] [place] [address] Care Team Providers Care Stitching Machine Setter Name Role Phone Abrahan Mcgee MD Primary Care Provider [phone] Encounter Details Date Type Department Care Team (Late st Contact Info) Description 12/01/2002 Outpatient Historical [facility] MRI DEPT Berta Monae MD [address] [place], [place] [id number] NONRUPTURED CEREBRAL ANEURYSM (Primary Dx) Social History Tobacco Use Types Packs/Day Years Used Date Smoking Tobacco: Never Assessed Comments Unknown Sex and Gender Information Value Date Recorded Sex Assigned at Not on file Legal Sex Female 3:33 AM FUSELAGE FRAMER Gender Identity Not on file Sexual Orientation Not on file documented as of this encounter Plan of Treatment Upcoming Encounters Date Type Department Care Team (Late st Contact Info) Description 10/02/2024 11:45 AM CDT Office Visit [facility] Oncology and Hematology - [place] [address] [place] [address] [address] [place] [address] Prince Mir MD [address] [facility] [address] [place] [address] documented as of this encounter Visit Diagnoses Diagnosis Cerebral aneurysm, nonruptured- Primary documented in this encounter Care Teams Stitching Machine Setter Relationship Specialty Start Date End Date Abrahan Mcgee MD [address] [place] [address] PCP - General Family Practice 04/03/24 documented as of this encounter
--- OUTSIDE RECORDS SUMMARY | 2024-09-28 19:20 | XMS_ITS | Encounter Summary ---
Author Organization [facility] Address [address] [place] [address] Care Team Providers Care Generation Manager Name Role Phone Abrahan Mcgee MD Primary Care Provider [phone] Encounter Details Date Type Department Care Team (Late st Contact Info) Description 07/27/2003 Outpatient Historical [facility] Oscar Sneed MD NO ADDRESS ON FILE FEMALE GENITAL SYMPTOMS NOS (Primary Dx) Social History Tobacco Use Types Packs/Day Years Used Date Smoking Tobacco: Never Assessed Comments Unknown Sex and Gender Information Value Date Recorded Sex Assigned at Not on file Legal Sex Female 3:33 AM AURICULAR THERAPIST Gender Identity Not on file Sexual Orientation Not on file documented as of this encounter Plan of Treatment Upcoming Encounters Date Type Department Care Team (Late st Contact Info) Description 10/02/2024 11:45 AM CDT Office Visit [facility] Oncology and Hematology - [place] [address] [place] [address] [address] [place] [address] Prince Mir MD [address] [place] [address] [address] [place] [address] documented as of this encounter Visit Diagnoses Diagnosis Unspecified symptom associated with female genital organs- Primary documented in this encounter Care Teams Generation Manager Relationship Specialty Start Date End Date Abrahan Mcgee MD [address] [place] [address] PCP - General Family Practice 04/03/24 documented as of this encounter
--- OUTSIDE RECORDS SUMMARY | 2024-09-28 19:20 | XMS_ITS | Encounter Summary ---
Author Organization [facility] Address [address] [place] [address] Care Team Providers Care Blending Technician Name Role Phone Abrahan Mcgee MD Primary Care Provider [phone] Encounter Details Date Type Department Care Team (Late st Contact Info) Description 07/23/2003 Outpatient Historical [facility] MRI DEPT Meryl Perry MD [address] [place] [address] [address] UTERINE LEIOMYOMA NOS (Primary Dx) Social History Tobacco Use Types Packs/Day Years Used Date Smoking Tobacco: Never Assessed Comments Unknown Sex and Gender Information Value Date Recorded Sex Assigned at Not on file Legal Sex Female 3:33 AM NIBBLER OPERATOR Gender Identity Not on file Sexual Orientation Not on file documented as of this encounter Plan of Treatment Upcoming Encounters Date Type Department Care Team (Late st Contact Info) Description 10/02/2024 11:45 AM CDT Office Visit [facility] Oncology and Hematology - T[place] [address] [facility] [address] [place] [address] Prince Mir MD [address] [facility] [address] [place] [address] documented as of this encounter Visit Diagnoses Diagnosis Leiomyoma of uterus, unspecified- Primary documented in this encounter Care Teams Blending Technician Relationship Specialty Start Date End Date Abrahan Mcgee MD [address] [place] [address] PCP - General Family Practice 04/03/24 documented as of this encounter
--- OUTSIDE RECORDS SUMMARY | 2024-09-28 19:20 | XMS_ITS | Encounter Summary ---
Author Organization [facility] Address [address] [place] [address] Care Team Providers Care Pier Runner Name Role Phone Abrahan Mcgee MD Primary Care Provider [phone] Encounter Details Date Type Department Care Team (Late st Contact Info) Description 12/05/2004 Outpatient Historical HIS MRI DEPT Meryl Perry MD [address] [address] UTERINE LEIOMYOMA NOS (Primary Dx) Social History Tobacco Use Types Packs/Day Years Used Date Smoking Tobacco: Never Assessed Comments Unknown Sex and Gender Information Value Date Recorded Sex Assigned at Not on file Legal Sex Female 3:33 AM HOSPICE AIDE Gender Identity Not on file Sexual Orientation Not on file documented as of this encounter Plan of Treatment Upcoming Encounters Date Type Department Care Team (Late st Contact Info) Description 10/02/2024 11:45 AM CDT Office Visit [facility] Oncology and Hematology - [place] [address] [facility] [address] [place] [address] Prince Mir MD [address] [facility] [address] [place] [address] documented as of this encounter Visit Diagnoses Diagnosis Leiomyoma of uterus, unspecified- Primary documented in this encounter Care Teams Pier Runner Relationship Specialty Start Date End Date Abrahan Mcgee MD [address] [place] [address] PCP - General Family Practice 04/03/24 documented as of this encounter
--- OUTSIDE RECORDS SUMMARY | 2024-09-28 19:20 | XMS_ITS | Encounter Summary ---
Author Organization [facility] Address [address] [place] [address] Care Team Providers Care Manager Target Name Role Phone Abrahan Mcgee MD Primary Care Provider [phone] Encounter Details Date Type Department Care Team (Latest Contact Info) Description 12/04/2005 Outpatient Historical HIS [facility] Andre Vidal MD NO ADDRESS ON FILE Essential Hypertension, Benign (Primary Dx) Social History Tobacco Use Types Packs/Day Years Used Date Smoking Tobacco: Never Assessed Comments Unknown Sex and Gender Information Value Date Recorded Sex Assigned at Not on file Legal Sex Female 3:33 AM CARE COMPANION Gender Identity Not on file Sexual Orientation Not on file documented as of this encounter Plan of Treatment Upcoming Encounters Date Type Department Care Team (Late st Contact Info) Description 10/02/2024 11:45 AM CDT Office Visit [facility] Oncology and Hematology - [place] [address] [facility] [address] [place] [address] Prince Mir MD [address] [facility] [address] [place] [address] documented as of this encounter [...] ORDERABLES Final Res ult Performing Organization Address City/[facility] Co de Phone Number INTERFACE SYSTEM [...] ORDERABLES Final Res ult Performing Organization Address City/[facility]/ZIP Co de Phone Number INTERFACE SYSTEM Refer to clinic/hospital department documented in this encounter Visit Diagnoses Diagnosis Essential hypertension, benign- Primary documented in this encounter Care Teams Manager Target Relationship Specialty Start Date End Date Abrahan Mcgee MD [address] [place] [address] PCP - General Family Practice 04/03/24 documented as of this encounter
--- OUTSIDE RECORDS SUMMARY | 2024-09-28 19:20 | XMS_ITS | Encounter Summary ---
Author Organization [facility] Address [address] [place] [address] Care Team Providers Care Machine Set Up Operator Name Role Phone Abrahan Mcgee MD Primary Care Provider [phone] Encounter Details Date Type Department Care Team (Late st Contact Info) Description 08/15/2003 Outpatient Historical HIS MRI DEPT Meryl Perry MD [address] [place] [address] [address] ABDOMINAL PAIN RUQ (Primary Dx) Social History Tobacco Use Types Packs/Day Years Used Date Smoking Tobacco: Never Assessed Comments Unknown Sex and Gender Information Value Date Recorded Sex Assigned at Not on file Legal Sex Female 3:33 AM FIELD EVIDENCE TECHNICIAN Gender Identity Not on file Sexual Orientation Not on file documented as of this encounter Plan of Treatment Upcoming Encounters Date Type Department Care Team (Late st Contact Info) Description 10/02/2024 11:45 AM CDT Office Visit [facility] Oncology and Hematology - [place] [address] [facility] [address] [place] [address] Prince Mir MD [address] [facility] [address] [place] [address] documented as of this encounter Visit Diagnoses Diagnosis Abdominal pain, right upper quadrant- Primary documented in this encounter Care Teams Machine Set Up Operator Relationship Specialty Start Date End Date Abrahan Mcgee MD [address] [place] [address] PCP - General Family Practice 04/03/24 documented as of this encounter
--- OUTSIDE RECORDS SUMMARY | 2024-09-28 19:20 | XMS_ITS | Clinical Summary ---
Author Organization [facility] Care Team Providers Care Joint Maker Machine Name Role Phone Unavailable Primary Care Provider [...]
--- OUTSIDE RECORDS SUMMARY | 2024-09-28 19:20 | XMS_ITS | Encounter Summary ---
Author Organization [facility] Address [address] [place] [address] Care Team Providers Care Mirror Silverer Name Role Phone Abrahan Mcgee MD Primary Care Provider [phone] Encounter Details Date Type Department Care Team (Latest Contact Info) Description 10/17/2002 Outpatient Historical HIS [facility] Andre Vidal MD NO ADDRESS ON FILE SOLITARY CYST OF BREAST (Primary Dx) Social History Tobacco Use Types Packs/Day Years Used Date Smoking Tobacco: Never Assessed Comments Unknown Sex and Gender Information Value Date Recorded Sex Assigned at Not on file Legal Sex Female 3:33 AM FIRE EXTINGUISHER MECHANIC Gender Identity Not on file Sexual Orientation Not on file documented as of this encounter Plan of Treatment Upcoming Encounters Date Type Department Care Team (Late st Contact Info) Description 10/02/2024 11:45 AM CDT Office Visit [facility] Oncology and Hematology - [place] [address] [place] [address] [address] [place] [address] [place] [address] [place] [address] [address] [place] [address] documented as of this encounter Visit Diagnoses Diagnosis Solitary cyst of breast- Primary documented in this encounter Care Teams Mirror Silverer Relationship Specialty Start Date End Date Abrahan Mcgee MD [address] [place] [address] PCP - General Family Practice 04/03/24 documented as of this encounter
[2024-09-28 19:22] VITALS: BP 152/78; PULSE 86; RESP 20; TEMP 36.7; O2SAT 96
--- OUTSIDE RECORDS SUMMARY | 2024-09-28 19:46 | XMS_ITS | Encounter Summary ---
Author Organization [facility] Healthcare Address [address] [place] [address] Care Team Providers Care Ampoule Sealer Name Role Phone Abrahan Mcgee MD Primary Care Provider [phone] Reason for Visit * Diagnostic Imaging (Routine) - Closed Specialty Diagnoses / Procedures Referred By Contac t Referred To Contact Procedures Breast Imaging Diagnostic Outside Reference Aft, Sweta Gleason [place] PhD [address] [place] [address] Phone: tel: fax: Referral ID Status Reason Start Date Expiration Date Visits Re quested Visits Authorized [id number] Closed 01/19/2022 02/18/2023 1 1 Encounter Details Date Type Department Care Team (Late st Contact Info) Description 07/21/2016 Hospital Encounter [facility] [address] [place] [id number] Social History Tobacco Use Types Packs/Day Years [...] on file Legal 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:42 PM HADOOP ENGINEER Gender Identity Not on file Sexual [...] CDT) Impressions [facility] - 01/19/2022 10:56 AM HADOOP ENGINEER These images are for Reference purposes only and have not been reviewed by [facility]. There will be no report generated by a [facility] Radiologist. Narrative [facility] - 01/19/2022 10:56 AM HADOOP ENGINEER EXAMINATION: Images For Reference Purposes Only us Sweta Conteh MD PhD IMG MAMMO PROCEDURES Final Result [facility] documented in this encounter Visit Diagnoses Not on filedocumented in this encounter Care Teams Ampoule Sealer Relationship Specialty Start Date End Date Abrahan Mcgee MD PCP - General 10/06/11 09/09/16 documented as of this encounter
--- OUTSIDE RECORDS SUMMARY | 2024-09-28 19:46 | XMS_ITS | Encounter Summary ---
Author Organization [facility] Address [address] [facility] Attn: Epic Prelude ADT [place] [address] Care Team Providers Care Tread Tuber Machine Operator Name Role Phone Abrahan Mcgee [...] file Legal Sex Female 3:33 AM RETAIL 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 Oncology and Hematology - [place] [address] [place] [address] [address] [place] [address] Prince Mir MD [address] [place] [address] [address] [place] [address] documented as of this encounter Visit Diagnoses Not on filedocumented in this encounter Care Teams Tread Tuber Machine Operator Relationship Specialty Start Date End Date Abrahan Mcgee MD [address] [place] [address] PCP - General Family Practice 04/03/24 documented as of this encounter
--- OUTSIDE RECORDS SUMMARY | 2024-09-28 19:46 | XMS_ITS | Encounter Summary ---
Author Organization [facility] Address [address] [place] [address] Care Team Providers Care High School Social Studies Tutor Name Role Phone Abrahan Mcgee MD Primary Care Provider [phone] Encounter Details Date Type Department Care Team (Late st Contact Info) Description 03/16/2002 Outpatient Historical HIS [facility] Andre Ernst MD NO ADDRESS ON FILE Social History Tobacco Use Types Packs/Day Years Used Date Smoking Tobacco: Never Assessed Comments Unknown Sex and Gender Information Value Date Recorded Sex Assigned at Not on file Legal Sex Female 3:33 AM HEALTH EDUCATOR Gender Identity Not on file Sexual Orientation Not on file documented as of this encounter Plan of Treatment Upcoming Encounters Date Type Department Care Team (Late st Contact Info) Description 10/02/2024 11:45 AM CDT Office Visit [facility] Oncology and Hematology - [place] [address] [place] [address] [address] [place] [address] [place] [address] [place] [address] [address] [place] [address] documented as of this encounter Visit Diagnoses Not on filedocumented in this encounter Care Teams High School Social Studies Tutor Relationship Specialty Start Date End Date Abrahan Mcgee MD [address] [address] PCP - General Family Practice 04/03/24 documented as of this encounter
--- OUTSIDE RECORDS SUMMARY | 2024-09-28 19:46 | XMS_ITS | Clinical Summary ---
Author Organization [facility] Address [address] [place] [address] Care Team Providers Care Sample Clerk Name Role Phone Abrahan Mcgee MD Primary Care Provider [phone] Source Comments [facility],non-[facility] Affiliates and Associated Physician Practices is amultiple site organization consisting of ambulatory clinics and hospital sitesin [place], [place], [place] and [place]. This disclosure is being madepursuant to the Care Everywhere program and may not contain all information available regarding this patient. Last updated 17.[facility] Social History Tobacco Use Types Packs/Day Years Used Date Smoking Tobacco: Never Assessed Comments Unknown Sex and Gender Information Value Date Recorded Sex Assigned at Not on file Legal Sex Female 6:23 PM STOCKROOM COORDINATOR Gender Identity Not on file Sexual [...] patient's age to complete this topic Insurance [facility] MANAGED MEDICARE ADV AET[employer] MEDICARE ADV SELF PAY NO INSURANCE Member Subscriber Plan / Payer (Ef fective for All Dates) Name:Marshal Sanders Member ID:Not on file Relation to Subscriber:Not on file Name:Marshal SANDERS Subscriber ID:Not on file Address: [address] [place] [address] Payer ID:Not on file Group ID:Not on file Type:Self Pay Address: [place], [place] AETNA MEDICARE ADV SELF PAY NO INSURANCE Member Subscriber Plan / Payer (Ef fective for All Dates) Name:Marshal Sanders Member ID:Not on file Relation to Subscriber:Not on file Name:Marshal SANDERS Subscriber ID:Not on file Address: [address] [place] [address] [place] [address] Payer ID:Not on file Group ID:Not on file Type:Self Pay Address: [place], [place] Care Teams Sample Clerk Relationship Specialty Start Date End Date Abrahan Mcgee MD [address] [place] [address] PCP - General 07/23/09
--- OUTSIDE RECORDS SUMMARY | 2024-09-28 19:46 | XMS_ITS | Encounter Summary ---
Author Organization [facility] Healthcare Address [address] [place] [address] Care Team Providers Care Hot Billet Shear Operator Name Role Phone Krishna Medina MD Primary Care Provider [phone] Reason for Visit * Diagnostic Imaging (Routine) - Closed Specialty Diagnoses / Procedures Referred By Contac t Referred To Contact Procedures Breast Imaging Screening Outside Reference Aft, Sweta Gleason MD PhD [address] [place] [address] Phone: tel: fax: Referral ID Status Reason Start Date Expiration Date Visits Re quested Visits Authorized [id number] Closed 01/19/2022 02/18/2023 1 1 Encounter Details Date Type Department Care Team (Late st Contact Info) Description 08/26/2018 Hospital Encounter [facility] [address] [place], [place] [id number] Social History Tobacco Use Types Packs/Day Years [...] on file Legal 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:42 PM IT ARCHITECT Gender Identity Not on file Sexual [...] CDT) Impressions [facility] - 01/19/2022 11:04 AM IT ARCHITECT These images are for Reference purposes only and have not been reviewed by [facility]. There will be no report generated by a [facility] Radiologist. Narrative [facility] - 01/19/2022 11:04 AM IT ARCHITECT EXAMINATION: Images For Reference Purposes Only us Sweta Conteh MD PhD IMG MAMMO PROCEDURES Final Result [facility] documented in this encounter Visit Diagnoses Not on filedocumented in this encounter Care Teams Hot Billet Shear Operator Relationship Specialty Start Date End Date Krishna Medina MD [address] [address] PCP - General 10/15/16 03/16/19 documented as of this encounter
--- OUTSIDE RECORDS SUMMARY | 2024-09-28 19:46 | XMS_ITS | Encounter Summary ---
Author Organization [facility] Address [address] [place] [address] Phone Care Team Providers Care Senior Sustainability Advisor Name Role Phone Krishna Medina MD Unavailable [phone] Luigi Nicole Primary Care Provider Lina Yates NP Unavailable [phone] Yogesh Corbett DO Primary Care Provider [phone] Abrahan Mcgee MD Primary Care Provider [phone] Encounter Details Date Type Department Care Team (Late st Contact Info) Description 02/05/2022 Telephone [facility] Surgery [facility] 5th [place] [address] [place] [address] Akila Toussaint Social History Tobacco [...] on file Legal 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:42 PM LEAD NUCLEAR MEDICINE TECHNOLOGIST Gender Identity Not on file Sexual Orientation Not on file documented as of this encounter Plan of Treatment Not on file documented as of this encounter Visit Diagnoses Not on filedocumented in this encounter Care Teams Senior Sustainability Advisor Relationship Specialty Start Date End Date Luigi Nicole PA [address] [place] [address] [address] [place] [address] PCP - General Physician Dipper And Baker 04/09/21 12/01/23 Yogesh Corbett DO [address] [place] [address] PCP - General Internal Medicine 12/02/23 06/05/24 Abrahan Mcgee MD [address] [place] [address] PCP - General Family Medicine 06/06/24 Krishna Medina MD [address] [address] 03/17/19 Lina Yates NP [address] [place] [address] [address] [place] [address] Nurse Practitioner 11/12/22 documented as of this encounter
--- OUTSIDE RECORDS SUMMARY | 2024-09-28 19:46 | XMS_ITS | Encounter Summary ---
Author Organization [facility] Healthcare Address [address] [place] [address] Care Team Providers Care Carding Utility Tender Name Role Phone Krishna Medina MD Primary Care Provider [phone] Reason for Visit * Diagnostic Imaging (Routine) - Closed Specialty Diagnoses / Procedures Referred By Contac t Referred To Contact Procedures Breast Imaging Screening Outside Reference Aft, Sweta Gleason MD PhD [address] [place] [address] Phone: tel: fax: Referral ID Status Reason Start Date Expiration Date Visits Re quested Visits Authorized [id number] Closed 01/19/2022 02/18/2023 1 1 Encounter Details Date Type Department Care Team (Late st Contact Info) Description 07/23/2017 Hospital Encounter [facility]iology [facility] [address] [place], [place] [id number] Social History Tobacco Use Types Packs/Day Years [...] on file Legal 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:42 PM LITHOGRAPH PRINTER Gender Identity Not on file Sexual Orientation [...] CDT) Impressions [facility] - 01/19/2022 10:55 AM LITHOGRAPH PRINTER These images are for Reference purposes only and have not been reviewed by [facility]. There will be no report generated by a [facility] Radiologist. Narrative [facility] - 01/19/2022 10:55 AM LITHOGRAPH PRINTER EXAMINATION: Images For Reference Purposes Only us Sweta Conteh MD PhD IMG MAMMO PROCEDURES Final Result [facility] documented in this encounter Visit Diagnoses Not on filedocumented in this encounter Care Teams Carding Utility Tender Relationship Specialty Start Date End Date Krishna Medina MD [address] [address] PCP - General 10/15/16 03/16/19 documented as of this encounter
--- OUTSIDE RECORDS SUMMARY | 2024-09-28 19:46 | XMS_ITS | Encounter Summary ---
Author Organization [facility] Address [address] [facility] Attn: Epic Prelude ADT [place] [address] Care Team Providers Care Recovery Room Nurse Name Role Phone Abrahan Mcgee MD Primary Care Provider [phone] Encounter Details Date Type Department Care Team (Late st Contact Info) Description 05/03/1990 Outpatient Historical Andre Ernst MD NO ADDRESS ON FILE Social History Tobacco Use Types Packs/Day Years Used Date Smoking Tobacco: Never Assessed Comments Unknown Sex and Gender Information Value Date Recorded Sex Assigned at Not on file Legal Sex Female 3:33 AM MAINSPRING WINDER AND OILER Gender Identity Not on file Sexual Orientation Not on file documented as of this encounter Plan of Treatment Upcoming Encounters Date Type Department Care Team (Late st Contact Info) Description 10/02/2024 11:45 AM CDT Office Visit [facility] Oncology and Hematology - [place] [address] [place] [address] [address] [place] [address] Prince Mir MD [address] [place] [address] [address] [place] [address] documented as of this encounter Visit Diagnoses Not on filedocumented in this encounter Care Teams Recovery Room Nurse Relationship Specialty Start Date End Date Abrahan Mcgee MD [address] [place] [address] PCP - General Family Practice 04/03/24 documented as of this encounter
--- OUTSIDE RECORDS SUMMARY | 2024-09-28 19:46 | XMS_ITS | Encounter Summary ---
Author Organization [facility] Address [address] [facility] Attn: Epic Prelude ADT [place] [address] Care Team Providers Care Director Television Name Role Phone Abrahan Mcgee MD Primary Care Provider [phone] Encounter Details Date Type Department Care Team (Late st Contact Info) Description 07/08/1992 Outpatient Historical Andre Ernst MD NO ADDRESS ON FILE Social History Tobacco Use Types Packs/Day Years Used Date Smoking Tobacco: Never Assessed Comments Unknown Sex and Gender Information Value Date Recorded Sex Assigned at Not on file Legal Sex Female 3:33 AM SHANK TAPER Gender Identity Not on file Sexual Orientation Not on file documented as of this encounter Plan of Treatment Upcoming Encounters Date Type Department Care Team (Late st Contact Info) Description 10/02/2024 11:45 AM CDT Office Visit [facility] Oncology and Hematology - [place] [address] [place] [address] [address] [place] [address] Prince Mir MD [address] [place] [address] [address] [place] [address] documented as of this encounter Visit Diagnoses Not on filedocumented in this encounter Care Teams Director Television Relationship Specialty Start Date End Date Abrahan Mcgee MD [address] [place] [address] PCP - General Family Practice 04/03/24 documented as of this encounter
--- OUTSIDE RECORDS SUMMARY | 2024-09-28 19:46 | XMS_ITS | Encounter Summary ---
Author Organization [facility] Address [address] [facility] Attn: Epic Prelude ADT [place] [address] Care Team Providers Care Air Transport Professionals Name Role Phone Abrahan Mcgee MD Primary Care Provider [phone] Encounter Details Date Type Department Care Team (Late st Contact Info) Description 09/11/1988 Outpatient Historical Andre Ernst MD NO ADDRESS ON FILE Social History Tobacco Use Types Packs/Day Years Used Date Smoking Tobacco: Never Assessed Comments Unknown Sex and Gender Information Value Date Recorded Sex Assigned at Not on file Legal Sex Female 3:33 AM MENAGERIE CARETAKER Gender Identity Not on file Sexual Orientation Not on file documented as of this encounter Plan of Treatment Upcoming Encounters Date Type Department Care Team (Late st Contact Info) Description 10/02/2024 11:45 AM CDT Office Visit [facility] Oncology and Hematology - [place] [address] [place] [address] [address] [place] [address] Prince Mir MD [address] [place] [address] [address] [place] [address] documented as of this encounter Visit Diagnoses Not on filedocumented in this encounter Care Teams Air Transport Professionals Relationship Specialty Start Date End Date Abrahan Mcgee MD [address] [place] [address] PCP - General Family Practice 04/03/24 documented as of this encounter
--- OUTSIDE RECORDS SUMMARY | 2024-09-28 19:46 | XMS_ITS | Encounter Summary ---
Author Organization [facility] Address [address] [facility] Attn: Epic Prelude ADT [place] [address] Care Team Providers Care Flask Fitter Name Role Phone Abrahan Mcgee MD Primary Care Provider [phone] Encounter Details Date Type Department Care Team (Late st Contact Info) Description 05/10/1990 Outpatient Historical Andre Ernst MD NO ADDRESS ON FILE Social History Tobacco Use Types Packs/Day Years Used Date Smoking Tobacco: Never Assessed Comments Unknown Sex and Gender Information Value Date Recorded Sex Assigned at Not on file Legal Sex Female 3:33 AM PARAMEDIC INSTRUCTOR Gender Identity Not on file Sexual Orientation Not on file documented as of this encounter Plan of Treatment Upcoming Encounters Date Type Department Care Team (Late st Contact Info) Description 10/02/2024 11:45 AM CDT Office Visit [facility] Oncology and Hematology - [place] [address] [place] [address] [address] [place] [address] Prince Mir MD [address] [place] [address] [address] [place] [address] documented as of this encounter Visit Diagnoses Not on filedocumented in this encounter Care Teams Flask Fitter Relationship Specialty Start Date End Date Abrahan Mcgee MD [address] [place] [address] PCP - General Family Practice 04/03/24 documented as of this encounter
--- OUTSIDE RECORDS SUMMARY | 2024-09-28 19:46 | XMS_ITS | Encounter Summary ---
Author Organization [facility] Address [address] [place] [address] Care Team Providers Care Convertible Sofa Bedspring Tester Name Role Phone Abrahan Mcgee MD Primary Care Provider [phone] Encounter Details Date Type Department Care Team (Late st Contact Info) Description 08/03/2001 Outpatient Historical [facility] INTERNISTS Berta Monae MD [address] [place] [address] Social History Tobacco Use Types Packs/Day Years Used Date Smoking Tobacco: Never Assessed Comments Unknown Sex and Gender Information Value Date Recorded Sex Assigned at Not on file Legal Sex Female 3:33 AM LENS CLEANER Gender Identity Not on file Sexual Orientation Not on file documented as of this encounter Plan of Treatment Upcoming Encounters Date Type Department Care Team (Late st Contact Info) Description 10/02/2024 11:45 AM CDT Office Visit [facility] Oncology and Hematology - [place] [address] [place] [address] [address] [place] [address] Prince Mir MD [address] [facility] [address] [place] [address] documented as of this encounter Visit Diagnoses Not on filedocumented in this encounter Care Teams Convertible Sofa Bedspring Tester Relationship Specialty Start Date End Date Abrahan Mcgee MD [address] [place] [address] PCP - General Family Practice 04/03/24 documented as of this encounter
--- OUTSIDE RECORDS SUMMARY | 2024-09-28 19:46 | XMS_ITS | Encounter Summary ---
Author Organization [facility] Address [address] [place] [address] Care Team Providers Care Paper Testing Supervisor Name Role Phone Abrahan Mcgee MD Primary Care Provider [phone] Encounter Details Date Type Department Care Team (Late st Contact Info) Description 11/04/2001 Outpatient Historical [facility] INTERNISTS Andre Ernst MD NO ADDRESS ON FILE Social History Tobacco Use Types Packs/Day Years Used Date Smoking Tobacco: Never Assessed Comments Unknown Sex and Gender Information Value Date Recorded Sex Assigned at Not on file Legal Sex Female 3:33 AM LEATHER SORTER Gender Identity Not on file Sexual Orientation Not on file documented as of this encounter Plan of Treatment Upcoming Encounters Date Type Department Care Team (Late st Contact Info) Description 10/02/2024 11:45 AM CDT Office Visit [facility] Oncology and Hematology - [place] [address] [place] [address] [address] [place] [address] [place] [address] [place] [address] [address] [place] [address] documented as of this encounter Visit Diagnoses Not on filedocumented in this encounter Care Teams Paper Testing Supervisor Relationship Specialty Start Date End Date Abrahan Mcgee MD [address] [place] [address] PCP - General Family Practice 04/03/24 documented as of this encounter
--- OUTSIDE RECORDS SUMMARY | 2024-09-28 19:46 | XMS_ITS | Encounter Summary ---
Author Organization [facility] Address [address] [place] [address] Care Team Providers Care Ship'S Captain Name Role Phone Abrahan Mcgee MD Primary Care Provider [phone] Encounter Details Date Type Department Care Team (Late st Contact Info) Description 02/24/2002 Outpatient Historical [facility] INTERNISTS Andre Ernst MD NO ADDRESS ON FILE Social History Tobacco Use Types Packs/Day Years Used Date Smoking Tobacco: Never Assessed Comments Unknown Sex and Gender Information Value Date Recorded Sex Assigned at Not on file Legal Sex Female 3:33 AM SCIENCE MANAGER Gender Identity Not on file Sexual Orientation Not on file documented as of this encounter Plan of Treatment Upcoming Encounters Date Type Department Care Team (Late st Contact Info) Description 10/02/2024 11:45 AM CDT Office Visit [facility] Oncology and Hematology - [place] [address] [place] [address] [address] [place] [address] [place] [address] [place] [address] [address] [place] [address] documented as of this encounter Visit Diagnoses Not on filedocumented in this encounter Care Teams Ship'S Captain Relationship Specialty Start Date End Date Abrahan Mcgee MD [address] [place] [address] PCP - General Family Practice 04/03/24 documented as of this encounter
--- OUTSIDE RECORDS SUMMARY | 2024-09-28 19:46 | XMS_ITS | Encounter Summary ---
Author Organization [facility] Healthcare Address [address] [place] [address] Care Team Providers Care Technician Telecommunication Systems Name Role Phone Krishna Medina MD Primary Care Provider [phone] Krishna Medina MD Unavailable [phone] Reason for Visit * Diagnostic Imaging (Routine) - Closed Specialty Diagnoses / Procedures Referred By Contac t Referred To Contact Procedures Breast Imaging Screening Outside Reference Aft, Sweta Gleason [place] PhD [address] [place] [address] Phone: tel: fax: Referral ID Status Reason Start Date Expiration Date Visits Re quested Visits Authorized [id number] Closed 01/19/2022 02/18/2023 1 1 Encounter Details Date Type Department Care Team (Late st Contact Info) Description 09/25/2019 Hospital Encounter [facility] [address] [place] [id number] Social History Tobacco Use Types Packs/Day Years [...] on file Legal 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:42 PM MUD MIXER Gender Identity Not on file Sexual [...] does not drink 11/10/2021 10:27 AM Dora rGoves RN Q3: How often do you have [...] CDT) Impressions [facility] - 01/19/2022 11:03 AM MUD MIXER These images are for Reference purposes only and have not been reviewed by [facility] Radiology. There will be no report generated by a [facility] Radiologist. Narrative [facility] - 01/19/2022 11:03 AM MUD MIXER EXAMINATION: Images For Reference Purposes Only us Sweta Conteh MD PhD IMG MAMMO PROCEDURES Final Result [facility] documented in this encounter Visit Diagnoses Not on filedocumented in this encounter Care Teams Technician Telecommunication Systems Relationship Specialty Start Date End Date Krishna Medina MD [address] [address] PCP - General 03/17/19 04/08/21 Krishna Medina MD [address] [address] 03/17/19 documented as of this encounter
--- OUTSIDE RECORDS SUMMARY | 2024-09-28 19:46 | XMS_ITS | Encounter Summary ---
Author Organization [facility] Address [address] [place] [address] Care Team Providers Care Host Hostess Name Role Phone Abrahan Mcgee MD Primary Care Provider [phone] Encounter Details Date Type Department Care Team (Latest Contact Info) Description 02/24/2002 Outpatient Historical HIS [facility] Andre Vidal MD NO ADDRESS ON FILE CHRONIC SINUSITIS NOS (Primary Dx) Social History Tobacco Use Types Packs/Day Years Used Date Smoking Tobacco: Never Assessed Comments Unknown Sex and Gender Information Value Date Recorded Sex Assigned at Not on file Legal Sex Female 3:33 AM MEN'S LEATHER DRESS BELT MAKER Gender Identity Not on file Sexual Orientation Not on file documented as of this encounter Plan of Treatment Upcoming Encounters Date Type Department Care Team (Late st Contact Info) Description 10/02/2024 11:45 AM CDT Office Visit [facility] Oncology and Hematology - [place] [address] [place] [address] [address] [place] [address] [place] [address] [place] [address] [address] [place] [address] documented as of this encounter Visit Diagnoses Diagnosis Unspecified sinusitis (chronic)- Primary documented in this encounter Care Teams Host Hostess Relationship Specialty Start Date End Date Abrahan Mcgee MD [address] [place] [address] PCP - General Family Practice 04/03/24 documented as of this encounter
--- OUTSIDE RECORDS SUMMARY | 2024-09-28 19:46 | XMS_ITS | Clinical Summary ---
Author Organization [facility] Address [address] [place] [address] Phone Care Team Providers Care Pulp Mill Team Leader Name Role Phone Abrahan Mcgee MD Primary Care Provider Allergies [...] 9 Active fluticasone propionate (FLONASE) 50 mcg/spray [place], Suspension nasal inhaler Administer 2 Sprays in [...] STL ABSTRACTION Provider, Abstract 08/09/2024 Orders Only [facility] Oncology and Hematology - [place] [address] [place] [address] [address] Prince Mir MD 07/20/2024 External Device Data [...] on file Legal Sex Female 3:33 AM COMMUNICATIONS REPRESENTATIVE Gender Identity Not on file Sexual Orientation Not on file Last Filed Vital Signs Vital Sign Reading Time Taken Comments Blood Pressure 132/71 04/03/2024 2:30 PM COMMUNICATIONS REPRESENTATIVE Pulse 69 04/03/2024 2:30 PM COMMUNICATIONS REPRESENTATIVE Temperature 36.1 C (97 F) 04/03/2024 2:30 PM COMMUNICATIONS REPRESENTATIVE Respiratory Rate 14 04/03/2024 2:30 PM COMMUNICATIONS REPRESENTATIVE Oxygen Saturation 96% 04/03/2024 2:30 PM COMMUNICATIONS REPRESENTATIVE Inhaled Oxygen Concentration - - Weight 53.1 kg (117 lb) 04/03/2024 2:30 PM COMMUNICATIONS REPRESENTATIVE Height 149.9 cm (4' 11) 12/09/2022 2:04 PM CDT Body Mass Index 23.63 12/09/2022 2:04 PM CDT Plan of Treatment Upcoming Encounters Date Type Department Care Team (Late st Contact Info) Description 10/02/2024 11:45 AM CDT Office Visit [facility] Oncology and Hematology [facility] [address] [facility] [address] [place] [address] Prince Mir MD [address] [facility] [address] [place] [address] Health Maintenance Due Date Last Done Comments DTAP/TDAP/TD VACCINES (1 - Tdap) 10/12/1954 ZOSTER VACCINE (1 of 2) 10/12/1985 OSTEOPOROSIS SCREENING 10/12/2000 RSV VACCINE (60+ or ) (1 - 1-dose 75+ series) 10/12/2010 PNEUMOCOCCAL VACCINE 50+ YEA RS (2 of 2 - PCV20 or PCV21) 12/17/2019 12/16/2018 Medicare Advantage ([place]) Prev entative Visit/Annual Wellness Visit 03/01/2024 INFLUENZA VACCINE (#1) 2024 01/20/2019 Procedures Procedure Name Priority Date/Time Associated Diagnosis Comments MAMMO SCREENING BILAT Routine 08/08/2024 9:58 AM CDT from Last 3 Months Results * MAMMO SCREENING BILAT (08/08/2024 9:58 AM CDT) Anatomical Region Laterality Modality Breast Bilateral Mammography Prince Mir MD MAMMO ORDERABLES Final Result from Last 3 Months Insurance [facility] [facility] Care Teams Pulp Mill Team Leader Relationship Specialty Start Date End Date Abrahan Mcgee MD [address] [place] [address] PCP - General Family Practice 04/03/24
--- OUTSIDE RECORDS SUMMARY | 2024-09-28 19:46 | XMS_ITS | Encounter Summary ---
Author Organization [facility] Address [address] [facility] [place] [facility] Attn: Epic Prelude ADT [place] [address] Care Team Providers Care Road Equipment Operator Name Role Phone Abrahan Mcgee MD [...] on file Legal Sex Female 3:33 AM TUMBLER DRIER OPERATOR Gender Identity Not on file Sexual Orientation Not on file documented as of this encounter Plan of Treatment Upcoming Encounters Date Type Department Care Team (Late st Contact Info) Description 10/02/2024 11:45 AM CDT Office Visit [facility] Oncology and Hematology - [place] [address] [place] [address] [address] [place] [address] Prince Mir MD [address] [place] [address] [address] [place] [address] documented as of this encounter Visit Diagnoses Not on filedocumented in this encounter Care Teams Road Equipment Operator Relationship Specialty Start Date End Date Abrahan Mcgee MD [address] [place] [address] PCP - General Family Practice 04/03/24 documented as of this encounter
--- OUTSIDE RECORDS SUMMARY | 2024-09-28 19:46 | XMS_ITS | Clinical Summary ---
Author Organization [facility] Address [address] [place] [address] Care Team Providers Care Eligibility Counselor Name Role Phone Krishna Medina MD Unavailable [phone] Lina Yates NP Unavailable [phone] Abrahan Mcgee MD Primary Care Provider [phone] Allergies Active Allergy Reactions Criticality Noted Date [...] 2021 Assessment & Plan (02/02/2022 4:10 PM SECURITY INSTALLATION SALES TECHNICIAN): Well healed. Removed BCL today without complications. [...] 04/28/2019 Assessment & Plan (04/28/2019 12:28 PM SECURITY INSTALLATION SALES TECHNICIAN): Monitor. Discussed signs and symptoms of Retinal tears or detachments. Pt understands to call immediately if noted. Subjective vision disturbance 04/28/2019 Assessment & Plan (04/28/2019 12:29 PM SECURITY INSTALLATION SALES TECHNICIAN): Seeing pink dots No hemorrhages or retinal [...] changes. Assessment & Plan (04/28/2019 12:27 PM SECURITY INSTALLATION SALES TECHNICIAN): Monitor closely Retinal hole of left eye [...] Description 09/15/2024 2:45 PM CDT Office Visit [facility] LASIK Surgery [place] ([facility]) [address] [facility] 2nd Floor, [address] [place] [address] Joshua Chan, OD Foreign body of left conjunctiva, initial encounter (Primary Dx); Intermediate stage nonexudative age-related macular degeneration of both eyes 09/15/2024 Telephone [facility] Ophthalmology [facility] [place] [address] Joshua Chan, OD Same day [...] on file Legal 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:42 PM SECURITY INSTALLATION SALES TECHNICIAN Gender Identity Not on file Sexual [...] Completed 019, 11/29/2016, 10/10/2014 Insurance [employer] MEDICARE [facility] MEDICARE Address: [facility] [id number] [place] [address] [facility] MEDICARE [facility] MEDICARE Advance Directives For more information, please contact: [phone] * Full Code (Latest Code Status on File) Date Activated Date Inactivated Comments 11/10/2021 10:25 AM 11/10/2021 3:44 PM * Full Code Date Activated Date Inactivated Comments 09/06/2019 9:17 AM 09/06/2019 3:17 PM * Full Code Date Activated Date Inactivated Comments 07/11/2018 9:22 AM 07/11/2018 4:10 PM Care Teams Eligibility Counselor Relationship Specialty Start Date End Date Abrahan Mcgee MD [address] [place] [address] PCP - General Family Medicine 06/06/24 Krishna Medina MD [address] [facility] [address] [place] [address] 03/17/19 Lina Yates NP [address] [address] Nurse Practitioner 11/12/22
--- OUTSIDE RECORDS SUMMARY | 2024-09-28 19:46 | XMS_ITS | Encounter Summary ---
Author Organization [facility] Health Address [address] [place] [address] Care Team Providers Care Cryptanalyst Name Role Phone Abrahan Mcgee MD Primary Care Provider [phone] Encounter Details Date Type Department Care Team (Late st Contact Info) Description 08/13/2021 Lab Requisition [facility] DermPath Lab [address] [place] [address] Jose G Llamas MD [address] [place] [address] Social History Tobacco Use Types Packs/Day Years Used Date Smoking Tobacco: Never Assessed Comments Unknown Sex and Gender Information Value Date Recorded Sex Assigned at Not on file Legal Sex Female 6:23 PM AUTHORIZATION SPECIALIST Gender Identity Not on file Sexual Orientation Not on file documented as of this encounter Plan of Treatment Not on file documented as of this encounter Procedures Procedure Name Priority Date/Time Associated Diagnosis Comments DERMATOPATHOLOGY Routine 08/12/2021 12:0 0 AM CDT documented in this encounter Results * DERMATOPATHOLOGY (08/12/2021 12:00 AM CDT) Case Report Dermatopathology Report Case: [id number] Authorizing Provider: Jose G Llamas MD Collected: 08/12/2021 12:00 AM Ordering Location: [facility] DermPath Lab Received: 08/13/2021 10:45 [...] specimen consists of a shave biopsy measuring [id number]. Jar 0. 2 10:59 AM CDT DERMATOPATHOLOGY [...] characteristic determined by the Dermatopathology Laboratory at [facility], directed by Dr. Troy Mckeon. These tests need not be, and therefore are not, approved by the [place] Food and Drug Administration. The tests are used for clinical purposes. Billing Codes Specimen Charges Stain Charges 84477 1 2 10:59 AM CDT DERMATOPATHOLOGY LABORATORY Embedded Images 2 10:59 AM CDT DERMATOPATHOLOGY LABORATORY Pathology/Cytolog y TISSUE SPECIMEN FROM SKIN / Unknown 08/12/2021 08/13/2021 10:45 AM CDT us Jose G Llamas MD LAB - PATHOLOGY/CYTOLOGY ORD ERABLES Final Result DERMATOPATHOLOGY LABORATORY [facility] - Department of Dermatology [address], [address] [phone] documented in this encounter Visit Diagnoses Not on filedocumented in this encounter Care Teams Cryptanalyst Relationship Specialty Start Date End Date Abrahan Mcgee MD [address] [place] [address] PCP - General 07/23/09 documented as of this encounter
--- OUTSIDE RECORDS SUMMARY | 2024-09-28 19:46 | XMS_ITS | Referral Summary ---
Author Organization [facility] Address [address] [place] [address] Care Team Providers Care Quote Clerk Name Role Phone Krishna Medina MD Unavailable [phone] Lina Yates NP Unavailable [phone] Abrahan Mcgee MD Primary Care Provider Encounters Date Type Department Care Team Description 09/15/2024 Telephone [facility] Ophthalmology [address] [place] [address] Joshua Chan, OD Same day 09/15/2024 2:45 PM CDT Office Visit [facility] LASIK Surgery [place] ([facility]) [address] [facility] [address], [address] [place] [address] [...] 2021 Assessment & Plan (02/02/2022 4:10 PM BISTRO SERVER): Well healed. Removed BCL today without complications. [...] 04/28/2019 Assessment & Plan (04/28/2019 12:28 PM BISTRO SERVER): Monitor. Discussed signs and symptoms of Retinal tears or detachments. Pt understands to call immediately if noted. Subjective vision disturbance 04/28/2019 Assessment & Plan (04/28/2019 12:29 PM BISTRO SERVER): Seeing pink dots No hemorrhages or retinal [...] changes. Assessment & Plan (04/28/2019 12:27 PM BISTRO SERVER): Monitor closely Retinal hole of left eye [...] on file Legal 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:42 PM BISTRO SERVER Gender Identity Not on file Sexual Orientation [...] Plan of Treatment Not on file Insurance [facility] MEDICARE T MEDICARE [facility] MEDICARE Advance Directives For more information, please contact: [phone] * Full Code (Latest Code Status on File) Date Activated Date Inactivated Comments 11/10/2021 10:25 AM 11/10/2021 3:44 PM * Full Code Date Activated Date Inactivated Comments 09/06/2019 9:17 AM 09/06/2019 3:17 PM * Full Code Date Activated Date Inactivated Comments 07/11/2018 9:22 AM 07/11/2018 4:10 PM Care Teams Quote Clerk Relationship Specialty Start Date End Date Abrahan Mcgee MD [address] [place] [address] PCP - General Family Medicine 06/06/24 Krishna Medina MD [address] [address] 03/17/19 Lina Yates NP [address] [address] Nurse Practitioner 11/12/22
--- OUTSIDE RECORDS SUMMARY | 2024-09-28 19:46 | XMS_ITS | Encounter Summary ---
Author Organization [facility] Address 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 Gender Identity Not on file Sexual Orientation Not on file documented as of this encounter Plan of Treatment Upcoming Encounters Date Type Department Care Team (Late st Contact Info) Description 10/02/2024 11:45 AM CDT Office Visit [facility] Oncology and Hematology - [place] [address] [place] [address] [address] [place] [address] [place] [address] [place] [address] [address] [place] [address] documented as of this encounter Visit Diagnoses Diagnosis Essential hypertension, benign- Primary documented in this encounter Care Teams Aircraft Log Clerk Relationship Specialty Start Date End Date Abrahan Mcgee MD [address] [place] [address] PCP - General Family Practice 04/03/24 documented as of this encounter
--- OUTSIDE RECORDS SUMMARY | 2024-09-28 19:47 | XMS_ITS | Encounter Summary ---
Author Organization [facility] Address 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 WASHER Gender Identity Not on file Sexual Orientation Not on file documented as of this encounter Plan of Treatment Upcoming Encounters Date Type Department Care Team (Late st Contact Info) Description 10/02/2024 11:45 AM CDT Office Visit [facility] Oncology and Hematology - [place] [address] [facility] [address] [place] [address] Prince Mir MD [address] [facility] [address] [place] [address] documented as of this encounter [...] ORDERABLES Final Re sult Performing Organization Address [facility] de Phone Number INTERFACE SYSTEM Refer to clinic/hospital department * (ABNORMAL) CBC WITH DIFFERENTIAL (06/11/2005 11:29 AM CDT) Pathologist [facility] WBC 8.1 4.0 - 9.8 K/uL INTERFACE [...] ORDERABLES Final Re sult Performing Organization Address City/[facility] Co de Phone Number INTERFACE SYSTEM [...] Headache documented in this encounter Care Teams Mobile Nurse Relationship Specialty Start Date End Date Abrahan Mcgee MD [address] [place] [address] PCP - General Family Practice 04/03/24 documented as of this encounter
--- OUTSIDE RECORDS SUMMARY | 2024-09-28 19:47 | XMS_ITS | Encounter Summary ---
Author Organization [facility] Address [address] [place] [address] Care Team Providers Care Rubber Goods Cutter Finisher Name Role Phone Abrahan Mcgee MD Primary Care Provider [phone] Encounter Details Date Type Department Care Team (Late st Contact Info) Description 06/05/2004 Outpatient Historical HIS [facility] Andre Ernst MD NO ADDRESS ON FILE Social History Tobacco Use Types Packs/Day Years Used Date Smoking Tobacco: Never Assessed Comments Unknown Sex and Gender Information Value Date Recorded Sex Assigned at Not on file Legal Sex Female 3:33 AM LINING SEWER Gender Identity Not on file Sexual Orientation Not on file documented as of this encounter Plan of Treatment Upcoming Encounters Date Type Department Care Team (Late st Contact Info) Description 10/02/2024 11:45 AM CDT Office Visit [facility] Oncology and Hematology - [place] [address] [place] [address] Dr [address] [place] [address] [place] [address] [place] [address] [address] [place] [address] documented as of this encounter Visit Diagnoses Not on filedocumented in this encounter Care Teams Rubber Goods Cutter Finisher Relationship Specialty Start Date End Date Abrahan Mcgee MD [address] [place] [address] PCP - General Family Practice 04/03/24 documented as of this encounter
--- OUTSIDE RECORDS SUMMARY | 2024-09-28 19:47 | XMS_ITS | Encounter Summary ---
Author Organization [facility] Address [address] [place] [address] Care Team Providers Care Farm Loan Representative Name Role Phone Abrahan Mcgee MD Primary Care Provider [phone] Encounter Details Date Type Department Care Team [...] on file Legal Sex Female 3:33 AM WINDOW TRIMMER Gender Identity Not on file Sexual Orientation Not on file documented as of this encounter Plan of Treatment Upcoming Encounters Date Type Department Care Team (Late st Contact Info) Description 10/02/2024 11:45 AM CDT [facility] Visit [facility] Oncology and Hematology - [place] [address] [facility] [address] [place] [address] Prince Mir MD [address] [facility] [address] [place] [address] documented as of this encounter Visit Diagnoses Diagnosis Open wound of scalp, without mention of complication- Primary documented in this encounter Care Teams Farm Loan Representative Relationship Specialty Start Date End Date Abrahan Mcgee MD [address] [place] [address] PCP - General Family Practice 04/03/24 documented as of this encounter
--- OUTSIDE RECORDS SUMMARY | 2024-09-28 19:47 | XMS_ITS | Encounter Summary ---
Author Organization [facility] Address 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 Gender Identity Not on file Sexual Orientation Not on file documented as of this encounter Plan of Treatment Upcoming Encounters Date Type Department Care Team (Late st Contact Info) Description 10/02/2024 11:45 AM CDT Office Visit [facility] Oncology and Hematology - [place] [address] [place] [address] Dr [address] [place] [address] [place] [address] [place] [address] [address] [place] [address] documented as of this encounter Visit Diagnoses Diagnosis Cervicalgia- Primary documented in this encounter Care Teams Rigger Helper Relationship Specialty Start Date End Date Abrahan Mcgee MD [address] [place] [address] PCP - General Family Practice 04/03/24 documented as of this encounter
--- OUTSIDE RECORDS SUMMARY | 2024-09-28 19:47 | XMS_ITS | Encounter Summary ---
Author Organization [facility] Address 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 Gender Identity Not on file Sexual Orientation Not on file documented as of this encounter Plan of Treatment Upcoming Encounters Date Type Department Care Team (Late st Contact Info) Description 10/02/2024 11:45 AM CDT Office Visit [facility] Oncology and Hematology - [place] [address] [facility] [address] [place] [address] Prince Mir MD [address] [facility] [address] [place] [address] documented as of this encounter Visit Diagnoses Diagnosis Abdominal pain, other specified site- Primary documented in this encounter Care Teams Strip Feeder Relationship Specialty Start Date End Date Abrahan Mcgee MD [address] [place] [address] PCP - General Family Practice 04/03/24 documented as of this encounter
--- OUTSIDE RECORDS SUMMARY | 2024-09-28 19:47 | XMS_ITS | Encounter Summary ---
Author Organization [facility] Address [address] [place] [address] Care Team Providers Care District Medical Examiner Name Role Phone Abrahan Mcgee MD Primary Care Provider [phone] Encounter Details Date Type Department Care Team (Latest Contact Info) Description 11/04/2001 Outpatient Historical HIS [facility] Andre Vidal MD NO ADDRESS ON FILE BENIGN HYPERTENSION (Primary Dx) Social History Tobacco Use Types Packs/Day Years Used Date Smoking Tobacco: Never Assessed Comments Unknown Sex and Gender Information Value Date Recorded Sex Assigned at Not on file Legal Sex Female 3:33 AM BOILERMAKING SUPERVISOR Gender Identity Not on file Sexual Orientation Not on file documented as of this encounter Plan of Treatment Upcoming Encounters Date Type Department Care Team (Late st Contact Info) Description 10/02/2024 11:45 AM CDT Office Visit [facility] Oncology and Hematology - [place] [address] [place] [address] Dr [address] [place] [address] [place] [address] [place] [address] [address] [place] [address] documented as of this encounter Visit Diagnoses Diagnosis Essential hypertension, benign- Primary documented in this encounter Care Teams District Medical Examiner Relationship Specialty Start Date End Date Abrahan Mcgee MD [address] [place] [address] PCP - General Family Practice 04/03/24 documented as of this encounter
--- OUTSIDE RECORDS SUMMARY | 2024-09-28 19:47 | XMS_ITS | Encounter Summary ---
Author Organization [facility] Address [address] [place] [address] Care Team Providers Care Interpreter For The Deaf Name Role Phone Abrahan Mcgee MD Primary Care Provider [phone] Encounter Details Date Type Department Care Team (Late st Contact Info) Description 11/26/2000 Outpatient Historical HIS [facility] Andre Ernst MD NO ADDRESS ON FILE Social History Tobacco Use Types Packs/Day Years Used Date Smoking Tobacco: Never Assessed Comments Unknown Sex and Gender Information Value Date Recorded Sex Assigned at Not on file Legal Sex Female 3:33 AM ASSEMBLER MOLDED FRAMES Gender Identity Not on file Sexual Orientation Not on file documented as of this encounter Plan of Treatment Upcoming Encounters Date Type Department Care Team (Late st Contact Info) Description 10/02/2024 11:45 AM CDT Office Visit [facility] Oncology and Hematology - [place] [address] [place] [address] [address] [place] [address] [place] [address] [place] [address] [address] [place] [address] documented as of this encounter Visit Diagnoses Not on filedocumented in this encounter Care Teams Interpreter For The Deaf Relationship Specialty Start Date End Date Abrahan Mcgee MD [address] [place] [address] PCP - General Family Practice 04/03/24 documented as of this encounter
--- OUTSIDE RECORDS SUMMARY | 2024-09-28 19:47 | XMS_ITS | Encounter Summary ---
Author Organization [facility] Address 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 Gender Identity Not on file Sexual Orientation Not on file documented as of this encounter Plan of Treatment Upcoming Encounters Date Type Department Care Team (Late st Contact Info) Description 10/02/2024 11:45 AM CDT Office Visit [facility] Oncology and Hematology - [place] [address] [facility] [address] [place] [address] Prince Mir MD [address] [facility] [address] [place] [address] documented as of this [...] Primary documented in this encounter Care Teams Lace Roller Relationship Specialty Start Date End Date Abrahan Mcgee MD [address] [place] [address] PCP - General Family Practice 04/03/24 documented as of this encounter
--- OUTSIDE RECORDS SUMMARY | 2024-09-28 19:47 | XMS_ITS | Encounter Summary ---
Author Organization [facility] Address [address] [place] [address] Care Team Providers Care Nephrology Nurse Name Role Phone Abrahan Mcgee MD Primary Care Provider [phone] Encounter Details Date Type Department Care Team (Latest Contact Info) Description 08/15/2003 Outpatient Historical HIS [facility] Andre Vidal MD NO ADDRESS ON FILE HYPOPOTASSEMIA (Primary Dx) Social History Tobacco Use Types Packs/Day Years Used Date Smoking Tobacco: Never Assessed Comments Unknown Sex and Gender Information Value Date Recorded Sex Assigned at Not on file Legal Sex Female 3:33 AM TECHNICAL ACCOUNT REPRESENTATIVE Gender Identity Not on file Sexual Orientation Not on file documented as of this encounter Plan of Treatment Upcoming Encounters Date Type Department Care Team (Late st Contact Info) Description 10/02/2024 11:45 AM CDT Office Visit [facility] Oncology and Hematology - [place] [address] [place] [address] [address] [place] [address] [place] [address] [place] [address] [address] [place] [address] documented as of this encounter Visit Diagnoses Diagnosis Hypopotassemia- Primary documented in this encounter Care Teams Nephrology Nurse Relationship Specialty Start Date End Date Abrahan Mcgee MD [address] [place] [address] PCP - General Family Practice 04/03/24 documented as of this encounter
--- OUTSIDE RECORDS SUMMARY | 2024-09-28 19:47 | XMS_ITS | Encounter Summary ---
Author Organization [facility] Address [address] [place] [address] Care Team Providers Care Candy Spreader Helper Name Role Phone Abrahan Mcgee MD Primary Care Provider [phone] Encounter Details Date Type Department Care Team (Late st Contact Info) Description 07/27/2003 Outpatient Historical HIS [facility] Oscar Sneed MD NO ADDRESS ON FILE FEMALE GENITAL SYMPTOMS NOS (Primary Dx) Social History Tobacco Use Types Packs/Day Years Used Date Smoking Tobacco: Never Assessed Comments Unknown Sex and Gender Information Value Date Recorded Sex Assigned at Not on file Legal Sex Female 3:33 AM WIRE BENDER HAND Gender Identity Not on file Sexual Orientation Not on file documented as of this encounter Plan of Treatment Upcoming Encounters Date Type Department Care Team (Late st Contact Info) Description 10/02/2024 11:45 AM CDT Office Visit [facility] Oncology and Hematology - [place] [address] [place] [address] Dr [address] [place] [address] Prince Mir MD [address] [place] [address] [address] [place] [address] documented as of this encounter Visit Diagnoses Diagnosis Unspecified symptom associated with female genital organs- Primary documented in this encounter Care Teams Candy Spreader Helper Relationship Specialty Start Date End Date Abrahan Mcgee MD [address] [place] [address] PCP - General Family Practice 04/03/24 documented as of this encounter
--- OUTSIDE RECORDS SUMMARY | 2024-09-28 19:47 | XMS_ITS | Encounter Summary ---
Author Organization [facility] Address [address] [place] [address] Care Team Providers Care 411 Directory Assistance Operator Name Role Phone Abrahan Mcgee MD Primary Care Provider [phone] Encounter Details Date Type Department Care Team (Late st Contact Info) Description 03/29/2002 Outpatient Historical HIS [facility] Andre Ernst MD NO ADDRESS ON FILE HEADACHE (Primary Dx) Social History Tobacco Use Types Packs/Day Years Used Date Smoking Tobacco: Never Assessed Comments Unknown Sex and Gender Information Value Date Recorded Sex Assigned at Not on file Legal Sex Female 3:33 AM FITNESS ASSISTANT Gender Identity Not on file Sexual Orientation Not on file documented as of this encounter Plan of Treatment Upcoming Encounters Date Type Department Care Team (Late st Contact Info) Description 10/02/2024 11:45 AM CDT Office Visit [facility] Oncology and Hematology - [place] [address] [place] [address] Dr [address] [place] [address] [place] [address] [place] [address] [address] [place] [address] documented as of this encounter Visit Diagnoses Diagnosis Headache(784.0)- Primary Headache documented in this encounter Care Teams 411 Directory Assistance Operator Relationship Specialty Start Date End Date Abrahan Mcgee MD [address] [place] [address] PCP - General Family Practice 04/03/24 documented as of this encounter
--- OUTSIDE RECORDS SUMMARY | 2024-09-28 19:47 | XMS_ITS | Encounter Summary ---
Author Organization [facility] Address 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 Gender Identity Not on file Sexual Orientation Not on file documented as of this encounter Plan of Treatment Upcoming Encounters Date Type Department Care Team (Late st Contact Info) Description 10/02/2024 11:45 AM CDT Office Visit [facility] Oncology and Hematology - [place] [address] [place] [address] Dr [address] [place] [address] [place] [address] [place] [address] [address] [place] [address] documented as of this encounter Visit Diagnoses Diagnosis Essential hypertension, benign- Primary documented in this encounter Care Teams Rifle Case Repairer Relationship Specialty Start Date End Date Abrahan Mcgee MD [address] [place] [address] PCP - General Family Practice 04/03/24 documented as of this encounter
--- OUTSIDE RECORDS SUMMARY | 2024-09-28 19:47 | XMS_ITS | Encounter Summary ---
Author Organization [facility] Address 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 BASEBALL PLAYER Gender Identity Not on file Sexual Orientation Not on file documented as of this encounter Plan of Treatment Upcoming Encounters Date Type Department Care Team (Late st Contact Info) Description 10/02/2024 11:45 AM CDT Office Visit [facility] Oncology and Hematology - [place] [address] [place] [address] Dr [address] [place] [address] [place] [address] [place] [address] [address] [place] [address] documented as of this encounter Visit Diagnoses Diagnosis Solitary cyst of breast- Primary documented in this encounter Care Teams Clinic Md Associate Relationship Specialty Start Date End Date Abrahan Mcgee MD [address] [place] [address] PCP - General Family Practice 04/03/24 documented as of this encounter
--- OUTSIDE RECORDS SUMMARY | 2024-09-28 19:47 | XMS_ITS | Encounter Summary ---
Author Organization [facility] Address [address] [place] [address] Care Team Providers Care Pumpman Name Role Phone Abrahan Mcgee MD Primary Care Provider [phone] Encounter Details Date Type Department Care Team (Late st Contact Info) Description 03/22/2001 Outpatient Historical HIS [facility] Andre Ernst MD NO ADDRESS ON FILE Social History Tobacco Use Types Packs/Day Years Used Date Smoking Tobacco: Never Assessed Comments Unknown Sex and Gender Information Value Date Recorded Sex Assigned at Not on file Legal Sex Female 3:33 AM GENERAL DUTY NURSE Gender Identity Not on file Sexual Orientation Not on file documented as of this encounter Plan of Treatment Upcoming Encounters Date Type Department Care Team (Late st Contact Info) Description 10/02/2024 11:45 AM CDT Office Visit [facility] Oncology and Hematology - [place] [address] [place] [address] Dr [address] [place] [address] [place] [address] [place] [address] [address] [place] [address] documented as of this encounter Visit Diagnoses Not on filedocumented in this encounter Care Teams Pumpman Relationship Specialty Start Date End Date Abrahan Mcgee MD [address] [place] [address] PCP - General Family Practice 04/03/24 documented as of this encounter
--- OUTSIDE RECORDS SUMMARY | 2024-09-28 19:47 | XMS_ITS | Encounter Summary ---
Author Organization [facility] Address [address] [place] [address] Care Team Providers Care Inspector Elevators Name Role Phone Abrahan Mcgee MD Primary Care Provider [phone] Encounter Details Date Type Department Care Team (Latest Contact Info) Description 08/15/2002 Outpatient Historical HIS [facility] Andre Vidal MD NO ADDRESS ON FILE JOINT PAIN-L/LEG (Primary Dx) Social History Tobacco Use Types Packs/Day Years Used Date Smoking Tobacco: Never Assessed Comments Unknown Sex and Gender Information Value Date Recorded Sex Assigned at Not on file Legal Sex Female 3:33 AM CHIN STRAP MAKER Gender Identity Not on file Sexual Orientation Not on file documented as of this encounter Plan of Treatment Upcoming Encounters Date Type Department Care Team (Late st Contact Info) Description 10/02/2024 11:45 AM CDT Office Visit [facility] Oncology and Hematology - [place] [address] [place] [address] [address] [place] [address] Prince Mir MD [address] [facility] [address] [place] [address] documented as of this encounter Visit Diagnoses Diagnosis Pain in joint, lower leg- Primary documented in this encounter Care Teams Inspector Elevators Relationship Specialty Start Date End Date Abrahan Mcgee MD [address] [place] [address] PCP - General Family Practice 04/03/24 documented as of this encounter
--- OUTSIDE RECORDS SUMMARY | 2024-09-28 19:47 | XMS_ITS | Encounter Summary ---
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 [place] [employer] Gender Identity Not on file Sexual Orientation Not on file documented as of this encounter Plan of Treatment Upcoming Encounters Date Type Department Care Team (Late st Contact Info) Description 10/02/2024 11:45 AM CDT Office Visit [facility] Oncology and Hematology - [place] [address] [place] [address] [address] [place] [address] Prince Mir MD [address] [place] [address] [address] [place] [address] documented as of this encounter Visit Diagnoses Not on filedocumented in this encounter Care Teams Learning Support Aide Relationship Specialty Start Date End Date Abrahan Mcgee MD [address] [place] [address] PCP - General Family Practice 04/03/24 documented as of this encounter
--- OUTSIDE RECORDS SUMMARY | 2024-09-28 19:47 | XMS_ITS | Encounter Summary ---
Author Organization [facility] Address [address] [place] [address] Care Team Providers Care Platform Inspector Name Role Phone Abrahan Mcgee MD Primary Care Provider [phone] Encounter Details Date Type Department Care Team (Latest Contact Info) Description 07/06/2003 Outpatient Historical HIS [facility] Andre Vidal MD NO ADDRESS ON FILE BENIGN HYPERTENSION (Primary Dx) Social History Tobacco Use Types Packs/Day Years Used Date Smoking Tobacco: Never Assessed Comments Unknown Sex and Gender Information Value Date Recorded Sex Assigned at Not on file Legal Sex Female 3:33 AM SURVEYING CREW RODMAN Gender Identity Not on file Sexual Orientation Not on file documented as of this encounter Plan of Treatment Upcoming Encounters Date Type Department Care Team (Late st Contact Info) Description 10/02/2024 11:45 AM CDT Office Visit [facility] Oncology and Hematology - [place] [address] [place] [address] [address] [place] [address] [place] [address] [place] [address] [address] [place] [address] documented as of this encounter Visit Diagnoses Diagnosis Essential hypertension, benign- Primary documented in this encounter Care Teams Platform Inspector Relationship Specialty Start Date End Date Abrahan Mcgee MD [address] [place] [address] PCP - General Family Practice 04/03/24 documented as of this encounter
--- OUTSIDE RECORDS SUMMARY | 2024-09-28 19:47 | XMS_ITS | Encounter Summary ---
Author Organization [facility] Address [address] [place] [address] Care Team Providers Care Shot Hole Shooter Name Role Phone Abrahan Mcgee MD Primary Care Provider [phone] Encounter Details Date Type Department Care Team (Late st Contact Info) Description 02/24/2005 Outpatient Historical [facility] Adult Hospitalists [facility] [address] [place] [address] Alcon Valadez MD [address] [place] [address] Social History Tobacco Use Types Packs/Day Years Used Date Smoking Tobacco: Never Assessed Comments Unknown Sex and Gender Information Value Date Recorded Sex Assigned at Not on file Legal Sex Female 3:33 AM MANAGER MENTAL HEALTH Gender Identity Not on file Sexual Orientation Not on file documented as of this encounter Plan of Treatment Upcoming Encounters Date Type Department Care Team (Late st Contact Info) Description 10/02/2024 11:45 AM CDT Office Visit [facility] Oncology and Hematology - [place] [address] [facility] [address] [place] [address] Prince Mir MD [address] [facility] [address] [place] [address] documented as of this encounter Visit Diagnoses Not on filedocumented in this encounter Care Teams Shot Hole Shooter Relationship Specialty Start Date End Date Abrahan Mcgee MD [address] [place] [address] PCP - General Family Practice 04/03/24 documented as of this encounter
--- OUTSIDE RECORDS SUMMARY | 2024-09-28 19:47 | XMS_ITS | Encounter Summary ---
Author Organization [facility] Address [address] [facility] Attn: Epic Prelude ADT FRIDA SPARROW [address] Care Team Providers Care Gas Meter Repair Supervisor Name Role Phone Abrahan Mcgee MD Primary Care Provider [phone] Encounter Details Date Type Department Care Team (Late st Contact Info) Description 08/03/1994 Outpatient Historical Andre Ernst MD NO ADDRESS ON FILE Social History Tobacco Use Types Packs/Day Years Used Date Smoking Tobacco: Never Assessed Comments Unknown Sex and Gender Information Value Date Recorded Sex Assigned at Not on file Legal Sex Female 3:33 AM CHAPLAIN Gender Identity Not on file Sexual Orientation Not on file documented as of this encounter Plan of Treatment Upcoming Encounters Date Type Department Care Team (Late st Contact Info) Description 10/02/2024 11:45 AM CDT Office Visit [facility] Oncology and Hematology - [place] [address] [place] [address] [address] [place] [address] Prince Mir MD [address] [place] [address] [address] [place] [address] documented as of this encounter Visit Diagnoses Not on filedocumented in this encounter Care Teams Gas Meter Repair Supervisor Relationship Specialty Start Date End Date Abrahan Mcgee MD [address] [place] [address] PCP - General Family Practice 04/03/24 documented as of this encounter
--- OUTSIDE RECORDS SUMMARY | 2024-09-28 19:47 | XMS_ITS | Encounter Summary ---
Author Organization [facility] Address [address] [facility] Attn: Epic Prelude ADT FRIDA SPARROW [address] Care Team Providers Care Bass Guitar Teacher Name Role Phone Abrahan Mcgee MD Primary Care Provider [phone] Encounter Details Date Type Department Care Team (Late st Contact Info) Description 08/03/1994 Outpatient Historical Andre Ernst MD NO ADDRESS ON FILE Social History Tobacco Use Types Packs/Day Years Used Date Smoking Tobacco: Never Assessed Comments Unknown Sex and Gender Information Value Date Recorded Sex Assigned at Not on file Legal Sex Female 3:33 AM SURGERY AID Gender Identity Not on file Sexual Orientation Not on file documented as of this encounter Plan of Treatment Upcoming Encounters Date Type Department Care Team (Late st Contact Info) Description 10/02/2024 11:45 AM CDT Office Visit [facility] Oncology and Hematology - [place] [address] [place] [address] [address] [place] [address] Prince Mir MD [address] [place] [address] [address] [place] [address] documented as of this encounter Visit Diagnoses Not on filedocumented in this encounter Care Teams Bass Guitar Teacher Relationship Specialty Start Date End Date Abrahan Mcgee MD [address] [place] [address] PCP - General Family Practice 04/03/24 documented as of this encounter
--- OUTSIDE RECORDS SUMMARY | 2024-09-28 19:47 | XMS_ITS | Encounter Summary ---
Author Organization [facility] Address [address] [place] [address] Care Team Providers Care Hematology Nurse Educator Name Role Phone Abrahan Mcgee MD Primary Care Provider [phone] Encounter Details Date Type Department Care Team (Latest Contact Info) Description 11/01/2003 Outpatient Historical HIS [facility] ЕКАТЕРИНА Sneed, Oscar Meediros MD NO ADDRESS ON FILE SCREENING MAMM-MAILG NEOPL-OTHER (Primary Dx) Social History Tobacco Use Types Packs/Day Years Used Date Smoking Tobacco: Never Assessed Comments Unknown Sex and Gender Information Value Date Recorded Sex Assigned at Not on file Legal Sex Female 3:33 AM HOME SECURITY PROFESSIONAL Gender Identity Not on file Sexual Orientation Not on file documented as of this encounter Plan of Treatment Upcoming Encounters Date Type Department Care Team (Late st Contact Info) Description 10/02/2024 11:45 AM CDT Office Visit [facility] Oncology and Hematology - [place] [address] [facility] [address] [place] [address] Prince Mir MD [address] [facility] [address] [place] [address] documented as of this encounter Visit Diagnoses Diagnosis Other screening mammogram- Primary documented in this encounter Care Teams Hematology Nurse Educator Relationship Specialty Start Date End Date Abrahan Mcgee MD [address] [place] [address] PCP - General Family Practice 04/03/24 documented as of this encounter
--- OUTSIDE RECORDS SUMMARY | 2024-09-28 19:47 | XMS_ITS | Encounter Summary ---
Author Organization [facility] Address [address] [place] [address] Care Team Providers Care Plate Corrector Name Role Phone Abrahan Mcgee MD Primary Care Provider [phone] Encounter Details Date Type Department Care Team (Late st Contact Info) Description 08/15/2002 Outpatient Historical HIS [facility] Andre Ernst MD NO ADDRESS ON FILE Social History Tobacco Use Types Packs/Day Years Used Date Smoking Tobacco: Never Assessed Comments Unknown Sex and Gender Information Value Date Recorded Sex Assigned at Not on file Legal Sex Female 3:33 AM FEED WEIGHER Gender Identity Not on file Sexual Orientation Not on file documented as of this encounter Plan of Treatment Upcoming Encounters Date Type Department Care Team (Late st Contact Info) Description 10/02/2024 11:45 AM CDT Office Visit [facility] Oncology and Hematology - [place] [address] [place] [address] [address] [place] [address] [place] [address] [place] [address] [address] [place] [address] documented as of this encounter Visit Diagnoses Not on filedocumented in this encounter Care Teams Plate Corrector Relationship Specialty Start Date End Date Abrahan Mcgee MD [address] [place] [address] PCP - General Family Practice 04/03/24 documented as of this encounter
--- OUTSIDE RECORDS SUMMARY | 2024-09-28 19:47 | XMS_ITS | Encounter Summary ---
Author Organization [facility] Address [address] [place] [address] Care Team Providers Care Moulder Operator Name Role Phone Abrahan Mcgee MD Primary Care Provider [phone] Encounter Details Date Type Department Care Team (Latest Contact Info) Description 10/17/2002 Outpatient Historical HIS [facility] Andre Vidal MD NO ADDRESS ON FILE PURE HYPERCHOLESTEROLEM (Primary Dx) Social History Tobacco Use Types Packs/Day Years Used Date Smoking Tobacco: Never Assessed Comments Unknown Sex and Gender Information Value Date Recorded Sex Assigned at Not on file Legal Sex Female 3:33 AM CLINICAL QUALITY ANALYST Gender Identity Not on file Sexual Orientation Not on file documented as of this encounter Plan of Treatment Upcoming Encounters Date Type Department Care Team (Late st Contact Info) Description 10/02/2024 11:45 AM CDT Office Visit [facility] Oncology and Hematology - [place] [address] [place] [address] [address] [place] [address] [place] [address] [place] [address] [address] [place] [address] documented as of this encounter Visit Diagnoses Diagnosis Pure hypercholesterolemia- Primary documented in this encounter Care Teams Moulder Operator Relationship Specialty Start Date End Date Abrahan Mcgee MD [address] [place] [address] PCP - General Family Practice 04/03/24 documented as of this encounter
--- OUTSIDE RECORDS SUMMARY | 2024-09-28 19:47 | XMS_ITS | Encounter Summary ---
Author Organization [facility] Address [address] [place] [address] Care Team Providers Care Radiation Control Technician Name Role Phone Abrahan Mcgee MD Primary Care Provider [phone] Encounter Details Date Type Department Care Team (Latest Contact Info) Description 06/05/2004 Outpatient Historical HIS [facility] Andre Vidal MD NO ADDRESS ON FILE BENIGN HYPERTENSION (Primary Dx) Social History Tobacco Use Types Packs/Day Years Used Date Smoking Tobacco: Never Assessed Comments Unknown Sex and Gender Information Value Date Recorded Sex Assigned at Not on file Legal Sex Female 3:33 AM PHOTOGRAPHY COLORIST Gender Identity Not on file Sexual Orientation Not on file documented as of this encounter Plan of Treatment Upcoming Encounters Date Type Department Care Team (Late st Contact Info) Description 10/02/2024 11:45 AM CDT Office Visit [facility] Oncology and Hematology - [place] [address] [facility] [address] [place] [address] Prince Mir MD [address] [facility] [address] [place] [address] documented as of this encounter [...] Primary documented in this encounter Care Teams Radiation Control Technician Relationship Specialty Start Date End Date Abrahan Mcgee MD [address] [place] [address] PCP - General Family Practice 04/03/24 documented as of this encounter
--- OUTSIDE RECORDS SUMMARY | 2024-09-28 19:47 | XMS_ITS | Encounter Summary ---
Author Organization [facility] Address [address] [place] [address] Care Team Providers Care Smooth Plater Name Role Phone Abrahan Mcgee MD Primary Care Provider [phone] Encounter Details Date Type Department Care Team (Late st Contact Info) Description 01/06/2006 Outpatient Historical HIS [facility] Andre Ernst MD NO ADDRESS ON FILE Social History Tobacco Use Types Packs/Day Years Used Date Smoking Tobacco: Never Assessed Comments Unknown Sex and Gender Information Value Date Recorded Sex Assigned at Not on file Legal Sex Female 3:33 AM LEARNING SERVICES COORDINATOR Gender Identity Not on file Sexual Orientation Not on file documented as of this encounter Plan of Treatment Upcoming Encounters Date Type Department Care Team (Late st Contact Info) Description 10/02/2024 11:45 AM CDT Office Visit [facility] Oncology and Hematology - [place] [address] [place] [address] [address] [place] [address] [place] [address] [place] [address] [address] [place] [address] documented as of this encounter Visit Diagnoses Not on filedocumented in this encounter Care Teams Smooth Plater Relationship Specialty Start Date End Date Abrahan Mcgee MD [address] [place] [address] PCP - General Family Practice 04/03/24 documented as of this encounter
--- OUTSIDE RECORDS SUMMARY | 2024-09-28 19:47 | XMS_ITS | Encounter Summary ---
Author Organization [facility] Address [address] [place] [address] Care Team Providers Care Transition Rn Name Role Phone Abrahan Mcgee MD Primary Care Provider [phone] Encounter Details Date Type Department Care Team (Late st Contact Info) Description 02/07/2004 Outpatient Historical HIS [facility] Andre Ernst MD NO ADDRESS ON FILE Social History Tobacco Use Types Packs/Day Years Used Date Smoking Tobacco: Never Assessed Comments Unknown Sex and Gender Information Value Date Recorded Sex Assigned at Not on file Legal Sex Female 3:33 AM NURSE CASE MANAGEMENT Gender Identity Not on file Sexual Orientation Not on file documented as of this encounter Plan of Treatment Upcoming Encounters Date Type Department Care Team (Late st Contact Info) Description 10/02/2024 11:45 AM CDT Office Visit [facility] Oncology and Hematology - [place] [address] [place] [address] [address] [place] [address] [place] [address] [place] [address] [address] [place] [address] documented as of this encounter Visit Diagnoses Not on filedocumented in this encounter Care Teams Transition Rn Relationship Specialty Start Date End Date Abrahan Mcgee MD [address] [place] [address] PCP - General Family Practice 04/03/24 documented as of this encounter
--- OUTSIDE RECORDS SUMMARY | 2024-09-28 19:47 | XMS_ITS | Encounter Summary ---
Author Organization [facility] Address [address] [place] [address] Care Team Providers Care Hospice Massage Therapist Name Role Phone Abrahan Mcgee MD Primary Care Provider [phone] Encounter Details Date Type Department Care Team (Latest Contact Info) Description 10/29/2000 Outpatient Historical HIS [facility] ЕКАТЕРИНА Ernst, Andre Guardado MD NO ADDRESS ON FILE Backache, unspecified (Primary Dx) Social History Tobacco Use Types Packs/Day Years Used Date Smoking Tobacco: Never Assessed Comments Unknown Sex and Gender Information Value Date Recorded Sex Assigned at Not on file Legal Sex Female 3:33 AM MANAGER COMMODITIES Gender Identity Not on file Sexual Orientation Not on file documented as of this encounter Plan of Treatment Upcoming Encounters Date Type Department Care Team (Late st Contact Info) Description 10/02/2024 11:45 AM CDT Office Visit [facility] Oncology and Hematology - [place] [address] [place] [address] [address] [place] [address] [place] [address] [place] [address] [address] [place] [address] documented as of this encounter Visit Diagnoses Diagnosis Backache, unspecified- Primary documented in this encounter Care Teams Hospice Massage Therapist Relationship Specialty Start Date End Date Abrahan Mcgee MD [address] [place] [address] PCP - General Family Practice 04/03/24 documented as of this encounter
--- OUTSIDE RECORDS SUMMARY | 2024-09-28 19:47 | XMS_ITS | Encounter Summary ---
Author Organization [facility] Address [address] [place] [address] Care Team Providers Care Research Director Name Role Phone Abrahan Mcgee MD Primary Care Provider [phone] Encounter Details Date Type Department Care Team (Late st Contact Info) Description 07/23/2003 Outpatient Historical HIS [facility] Meryl Perry MD [address] [place] [address] [address] UTERINE LEIOMYOMA NOS (Primary Dx) Social History Tobacco Use Types Packs/Day Years Used Date Smoking Tobacco: Never Assessed Comments Unknown Sex and Gender Information Value Date Recorded Sex Assigned at Not on file Legal Sex Female 3:33 AM INTEGRITY DIRECTOR Gender Identity Not on file Sexual Orientation Not on file documented as of this encounter Plan of Treatment Upcoming Encounters Date Type Department Care Team (Late st Contact Info) Description 10/02/2024 11:45 AM CDT Office Visit [facility] Oncology and Hematology - [place] [address] [facility] [address] [place] [address] Prince Mir MD [address] [facility] [address] [place] [address] documented as of this encounter Visit Diagnoses Diagnosis Leiomyoma of uterus, unspecified- Primary documented in this encounter Care Teams Research Director Relationship Specialty Start Date End Date Abrahan Mcgee MD [address] [place] [address] PCP - General Family Practice 04/03/24 documented as of this encounter
--- OUTSIDE RECORDS SUMMARY | 2024-09-28 19:47 | XMS_ITS | Encounter Summary ---
Author Organization [facility] Address [address] [place] [address] Care Team Providers Care Hedis Specialist Name Role Phone Abrahan Mcgee MD Primary Care Provider [phone] Encounter Details Date Type Department Care Team (Late st Contact Info) Description 10/29/2000 Outpatient Historical HIS [facility] Andre Ernst MD NO ADDRESS ON FILE Social History Tobacco Use Types Packs/Day Years Used Date Smoking Tobacco: Never Assessed Comments Unknown Sex and Gender Information Value Date Recorded Sex Assigned at Not on file Legal Sex Female 3:33 AM BRIM STRETCHER Gender Identity Not on file Sexual Orientation Not on file documented as of this encounter Plan of Treatment Upcoming Encounters Date Type Department Care Team (Late st Contact Info) Description 10/02/2024 11:45 AM CDT Office Visit [facility] Oncology and Hematology - [place] [address] [place] [address] [address] [place] [address] [place] [address] [place] [address] [address] [place] [address] documented as of this encounter Visit Diagnoses Not on filedocumented in this encounter Care Teams Hedis Specialist Relationship Specialty Start Date End Date Abrahan Mcgee MD [address] [place] [address] PCP - General Family Practice 04/03/24 documented as of this encounter
--- OUTSIDE RECORDS SUMMARY | 2024-09-28 19:47 | XMS_ITS | Encounter Summary ---
Author Organization [facility] Address [address] [place] [address] Care Team Providers Care Group Reservations Coordinator Name Role Phone Abrahan Mcgee MD Primary Care Provider [phone] Encounter Details Date Type Department Care Team (Late st Contact Info) Description 11/19/2003 Outpatient Historical HIS [facility] Andre Ernst MD NO ADDRESS ON FILE Social History Tobacco Use Types Packs/Day Years Used Date Smoking Tobacco: Never Assessed Comments Unknown Sex and Gender Information Value Date Recorded Sex Assigned at Not on file Legal Sex Female 3:33 AM ADVERTISEMENT COMPOSITOR Gender Identity Not on file Sexual Orientation Not on file documented as of this encounter Plan of Treatment Upcoming Encounters Date Type Department Care Team (Late st Contact Info) Description 10/02/2024 11:45 AM CDT Office Visit [facility] Oncology and Hematology - [place] [address] [place] [address] [address] [place] [address] [place] [address] [place] [address] [address] [place] [address] documented as of this encounter Visit Diagnoses Not on filedocumented in this encounter Care Teams Group Reservations Coordinator Relationship Specialty Start Date End Date Abrahan Mcgee MD [address] [place] [address] PCP - General Family Practice 04/03/24 documented as of this encounter
--- OUTSIDE RECORDS SUMMARY | 2024-09-28 19:47 | XMS_ITS | Encounter Summary ---
Author Organization [facility] Address [address] [place] [address] Care Team Providers Care Drop Forger Helper Name Role Phone Abrahan Mcgee MD Primary Care Provider [phone] Encounter Details Date Type Department Care Team (Late st Contact Info) Description 07/06/2003 Outpatient Historical HIS [facility] INTERNISTS Andre Ernst MD NO ADDRESS ON FILE Social History Tobacco Use Types Packs/Day Years Used Date Smoking Tobacco: Never Assessed Comments Unknown Sex and Gender Information Value Date Recorded Sex Assigned at Not on file Legal Sex Female 3:33 AM DONOR SERVICES SPECIALIST Gender Identity Not on file Sexual Orientation Not on file documented as of this encounter Plan of Treatment Upcoming Encounters Date Type Department Care Team (Late st Contact Info) Description 10/02/2024 11:45 AM CDT Office Visit [facility] Oncology and Hematology - [place] [address] [place] [address] [address] [place] [address] [place] [address] [place] [address] [address] [place] [address] documented as of this encounter Visit Diagnoses Not on filedocumented in this encounter Care Teams Drop Forger Helper Relationship Specialty Start Date End Date Abrahan Mcgee MD [address] [place] [address] PCP - General Family Practice 04/03/24 documented as of this encounter
--- OUTSIDE RECORDS SUMMARY | 2024-09-28 19:47 | XMS_ITS | Encounter Summary ---
Author Organization [facility] Address [address] [place] [address] Care Team Providers Care Inventory Control Specialist Name Role Phone Abrahan Mcgee MD Primary Care Provider [phone] Encounter Details Date Type Department Care Team (Latest Contact Info) Description 03/06/[address] [facility] Andre Vidal MD NO ADDRESS ON FILE HYPOPOTASSEMIA (Primary Dx) Social History Tobacco Use Types Packs/Day Years Used Date Smoking Tobacco: Never Assessed Comments Unknown Sex and Gender Information Value Date Recorded Sex Assigned at Not on file Legal Sex Female 3:33 AM AREA FIELD WORKER Gender Identity Not on file Sexual Orientation Not on file documented as of this encounter Plan of Treatment Upcoming Encounters Date Type Department Care Team (Late st Contact Info) Description 10/02/2024 11:45 AM CDT Office Visit [facility] Oncology and Hematology - [place] [address] [facility] [address] [place] [address] Prince Mir MD [address] [facility] [address] [place] [address] documented as of this encounter Procedures Procedure Name Priority Date/Time Associated Diagnosis Comments COMPREHENSIVE METABOLIC PANEL Routine 03/06/2004 11:12 AM AREA FIELD WORKER documented in this encounter Results * (ABNORMAL) COMPREHENSIVE METABOLIC PANEL (03/06/2004 11:12 AM AREA FIELD WORKER) GLUCOSE 95 65 - 109 mg/dL INTERFACE [...] by 2nd methodology. 03/06/2004 11:1 2 AM AREA FIELD WORKER us Andre Ernst MD CHEMISTRY ORDERABLES Final Res ult INTERFACE SYSTEM Refer to clinic/hospital department documented in this encounter Visit Diagnoses Diagnosis Hypopotassemia- Primary documented in this encounter Care Teams Inventory Control Specialist Relationship Specialty Start Date End Date Abrahan Mcgee MD [address] [place] [address] PCP - General Family Practice 04/03/24 documented as of this encounter
--- OUTSIDE RECORDS SUMMARY | 2024-09-28 19:47 | XMS_ITS | Encounter Summary ---
Author Organization [facility] Address [address] [place] [address] Care Team Providers Care Ruffling Hemmer Automatic Name Role Phone Abrahan Mcgee MD Primary Care Provider [phone] Encounter Details Date Type Department Care Team (Late st Contact Info) Description 02/24/2005 Outpatient Historical [facility] Support Serv. (Adt Cardiology-[facility]) [address] [place] [address] Carmine Morales MD NO ADDRESS ON FILE Social History Tobacco Use Types Packs/Day Years Used Date Smoking Tobacco: Never Assessed Comments Unknown Sex and Gender Information Value Date Recorded Sex Assigned at Not on file Legal Sex Female 3:33 AM CINDER PIT WORKER Gender Identity Not on file Sexual Orientation Not on file documented as of this encounter Plan of Treatment Upcoming Encounters Date Type Department Care Team (Late st Contact Info) Description 10/02/2024 11:45 AM CDT [facility] Visit [facility] Oncology and Hematology - [place] [address] [facility] [address] [place] [address] Prince Mir MD [address] [facility] [address] [place] [address] documented as of this encounter Visit Diagnoses Not on filedocumented in this encounter Care Teams Ruffling Hemmer Automatic Relationship Specialty Start Date End Date Abrahan Mcgee MD [address] [place] [address] PCP - General Family Practice 04/03/24 documented as of this encounter
--- OUTSIDE RECORDS SUMMARY | 2024-09-28 19:47 | XMS_ITS | Encounter Summary ---
Author Organization [facility] Address 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 Gender Identity Not on file Sexual Orientation Not on file documented as of this encounter Plan of Treatment Upcoming Encounters Date Type Department Care Team (Late st Contact Info) Description 10/02/2024 11:45 AM CDT Office Visit [facility] Oncology and Hematology - [place] [address] [place] [address] [address] [place] [address] Prince Mir MD [address] [facility] [address] [place] [address] documented as of this encounter Visit Diagnoses Not on filedocumented in this encounter Care Teams Curriculum And Assessment Director Relationship Specialty Start Date End Date Abrahan Mcgee MD [address] [place] [address] PCP - General Family Practice 04/03/24 documented as of this encounter
--- OUTSIDE RECORDS SUMMARY | 2024-09-28 19:47 | XMS_ITS | Encounter Summary ---
Author Organization [facility] Address 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 Gender Identity Not on file Sexual Orientation Not on file documented as of this encounter Plan of Treatment Upcoming Encounters Date Type Department Care Team (Late st Contact Info) Description 10/02/2024 11:45 AM CDT Office Visit [facility] Oncology and Hematology - [place] [address] [place] [address] [address] [place] [address] [place] [address] [place] [address] [address] [place] [address] documented as of this encounter Visit Diagnoses Diagnosis Hypopotassemia- Primary documented in this encounter Care Teams Glaciologist Relationship Specialty Start Date End Date Abrahan Mcgee MD [address] [place] [address] PCP - General Family Practice 04/03/24 documented as of this encounter
--- OUTSIDE RECORDS SUMMARY | 2024-09-28 19:47 | XMS_ITS | Encounter Summary ---
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 Gender Identity Not on file Sexual Orientation Not on file documented as of this encounter Plan of Treatment Upcoming Encounters Date Type Department Care Team (Late st Contact Info) Description 10/02/2024 11:45 AM CDT Office Visit [facility] Oncology and Hematology - [place] [address] [place] [address] [address] [place] [address] Prince Mir MD [address] [place] [address] [address] [place] [address] documented as of this encounter Visit Diagnoses Not on filedocumented in this encounter Care Teams Floriculture Professor Relationship Specialty Start Date End Date Abrahan Mcgee MD [address] [place] [address] PCP - General Family Practice 04/03/24 documented as of this encounter
--- OUTSIDE RECORDS SUMMARY | 2024-09-28 19:47 | XMS_ITS | Encounter Summary ---
Author Organization [facility] Address 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 Gender Identity Not on file Sexual Orientation Not on file documented as of this encounter Plan of Treatment Upcoming Encounters Date Type Department Care Team (Late st Contact Info) Description 10/02/2024 11:45 AM CDT Office Visit [facility] Oncology and Hematology - [place] [address] [place] [address] [address] [place] [address] [place] [address] [place] [address] [address] [place] [address] documented as of this encounter Visit Diagnoses Diagnosis 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 [address] PCP - General Family Practice 04/03/24 documented as of this encounter
--- OUTSIDE RECORDS SUMMARY | 2024-09-28 19:47 | XMS_ITS | Encounter Summary ---
Author Organization [facility] Address 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 Gender Identity Not on file Sexual Orientation Not on file documented as of this encounter Plan of Treatment Upcoming Encounters Date Type Department Care Team (Late st Contact Info) Description 10/02/2024 11:45 AM CDT Office Visit [facility] Oncology and Hematology - [place] [address] [place] [address] [address] [place] [address] Prince Mir MD [address] [facility] [address] [place] [address] documented as of this encounter Visit Diagnoses Diagnosis Cerebral aneurysm, nonruptured- Primary documented in this encounter Care Teams Intelligence Chief Relationship Specialty Start Date End Date Abrahan Mcgee MD [address] [place] [address] PCP - General Family Practice 04/03/24 documented as of this encounter
--- OUTSIDE RECORDS SUMMARY | 2024-09-28 19:47 | XMS_ITS | Encounter Summary ---
Author Organization [facility] Address 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 Gender Identity Not on file Sexual Orientation Not on file documented as of this encounter Plan of Treatment Upcoming Encounters Date Type Department Care Team (Late st Contact Info) Description 10/02/2024 11:45 AM CDT Office Visit [facility] Oncology and Hematology - [place] [address] [facility] [address] [place] [address] Prince Mir MD [address] [facility] [address] [place] [address] documented as of this encounter Visit Diagnoses Diagnosis Abdominal pain, right upper quadrant- Primary documented in this encounter Care Teams Station Worker Relationship Specialty Start Date End Date Abrahan Mcgee MD [address] [place] [address] PCP - General Family Practice 04/03/24 documented as of this encounter
--- OUTSIDE RECORDS SUMMARY | 2024-09-28 19:47 | XMS_ITS | Encounter Summary ---
Author Organization [facility] Address 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 Gender Identity Not on file Sexual Orientation Not on file documented as of this encounter Plan of Treatment Upcoming Encounters Date Type Department Care Team (Late st Contact Info) Description 10/02/2024 11:45 AM CDT Office Visit [facility] Oncology and Hematology - [place] [address] [place] [address] [address] [place] [address] [place] [address] [place] [address] [address] [place] [address] documented as of this encounter Visit Diagnoses Diagnosis Essential hypertension, benign- Primary documented in this encounter Care Teams Surg Physician Asst Relationship Specialty Start Date End Date Abrahan Mcgee MD [address] [place] [address] PCP - General Family Practice 04/03/24 documented as of this encounter
--- OUTSIDE RECORDS SUMMARY | 2024-09-28 19:47 | XMS_ITS | Encounter Summary ---
Author Organization [facility] Address [address] [place] [address] Care Team Providers Care Inside Sales Agent Name Role Phone Abrahan Mcgee MD Primary Care Provider [phone] Encounter Details Date Type Department Care Team (Late st Contact Info) Description 07/27/2003 Outpatient Historical HIS [facility] Perry, Meryl Pereira MD [address] [place] [address] [address] ABNORMAL FINDINGS-GI TRACT (Primary Dx) Social History Tobacco Use Types Packs/Day Years Used Date Smoking Tobacco: Never Assessed Comments Unknown Sex and Gender Information Value Date Recorded Sex Assigned at Not on file 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 Gender Identity Not on file Sexual Orientation Not on file documented as of this encounter Plan of Treatment Upcoming Encounters Date Type Department Care Team (Late st Contact Info) Description 10/02/2024 11:45 AM CDT Office Visit [facility] Oncology and Hematology - [place] [address] [facility] [address] [place] [address] Prince Mir MD [address] [facility] [address] [place] [address] documented as of this encounter Visit Diagnoses Diagnosis Nonspecific (abnormal) findings on radiological and other examination of gastrointestinal tract- Primary documented in this encounter Care Teams Inside Sales Agent Relationship Specialty Start Date End Date Abrahan Mcgee MD [address] [place] [address] PCP - General Family Practice 04/03/24 documented as of this encounter
--- OUTSIDE RECORDS SUMMARY | 2024-09-28 19:47 | XMS_ITS | Encounter Summary ---
Author Organization [facility] Address 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 Gender Identity Not on file Sexual Orientation Not on file documented as of this encounter Plan of Treatment Upcoming Encounters Date Type Department Care Team (Late st Contact Info) Description 10/02/2024 11:45 AM CDT Office Visit [facility] Oncology and Hematology - [place] [address] [place] [address] [address] [place] [address] [place] [address] [place] [address] [address] [place] [address] documented as of this encounter Visit Diagnoses Diagnosis Essential hypertension, benign- Primary documented in this encounter Care Teams Grain Weigher Relationship Specialty Start Date End Date Abrahan Mcgee MD [address] [place] [address] PCP - General Family Practice 04/03/24 documented as of this encounter
--- OUTSIDE RECORDS SUMMARY | 2024-09-28 19:47 | XMS_ITS | Encounter Summary ---
Author Organization [facility] Address 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 Female 3:33 AM RIDES ATTENDANT Gender Identity Not on file Sexual Orientation Not on file documented as of this encounter Plan of Treatment Upcoming Encounters Date Type Department Care Team (Late st Contact Info) Description 10/02/2024 11:45 AM CDT Office Visit [facility] Oncology and Hematology - [place] [address] [place] [address] [address] [place] [address] [place] [address] [place] [address] [address] [place] [address] documented as of this encounter Visit Diagnoses Not on filedocumented in this encounter Care Teams Maintenance Apprentice Relationship Specialty Start Date End Date Abrahan Mcgee MD [address] [place] [address] PCP - General Family Practice 04/03/24 documented as of this encounter
--- OUTSIDE RECORDS SUMMARY | 2024-09-28 19:48 | XMS_ITS | Encounter Summary ---
Author Organization [facility] Address [address] [place] [address] Care Team Providers Care Bicycle Assembler Name Role Phone Abrahan Mcgee MD Primary Care Provider [phone] Encounter Details Date Type Department Care Team (Late st Contact Info) Description 02/23/2005 Outpatient Historical [facility] Support Serv. (Adt Cardiology-[facility]) [address] 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 Gender Identity Not on file Sexual Orientation Not on file documented as of this encounter Plan of Treatment Upcoming Encounters Date Type Department Care Team (Late st Contact Info) Description 10/02/2024 11:45 AM CDT Office Visit [facility] Oncology and Hematology - [place] [address] [facility] [address] [place] [address] Prince Mir MD [address] [facility] [address] [place] [address] documented as of this encounter Visit Diagnoses Not on filedocumented in this encounter Care Teams Bicycle Assembler Relationship Specialty Start Date End Date Abrahan Mcgee MD [address] [place] [address] PCP - General Family Practice 04/03/24 documented as of this encounter
--- OUTSIDE RECORDS SUMMARY | 2024-09-28 19:48 | XMS_ITS | Encounter Summary ---
Author Organization [facility] Address [address] [place] [address] Care Team Providers Care Electrical High Tension Tester Name Role Phone Abrahan Mcgee MD Primary Care Provider [phone] Encounter Details Date Type Department Care Team (Late st Contact Info) Description 12/05/2004 Outpatient Historical HIS MRI DEPT Meryl Perry MD [address] [place] [address] [address] UTERINE LEIOMYOMA NOS (Primary Dx) [...] [facility] [place] Oncology and Hematology - [place] [address] [facility] [address] [place] [address] Prince Mir MD [address] [facility] [address] [place] [address] documented as of this encounter Visit Diagnoses Diagnosis Leiomyoma of uterus, unspecified- Primary documented in this encounter Care Teams Electrical High Tension Tester Relationship Specialty Start Date End Date Abrahan Mcgee MD [address] [place] [address] PCP - General Family Practice 04/03/24 documented as of this encounter
--- OUTSIDE RECORDS SUMMARY | 2024-09-28 19:48 | XMS_ITS | Encounter Summary ---
Author Organization [facility] Address [address] [place] [address] Care Team Providers Care Health And Wellness Coordinator Name Role Phone Abrahan Mcgee MD Primary Care Provider [phone] Encounter Details Date Type Department Care Team (Late st Contact Info) Description 11/27/2004 Outpatient Historical HIS [facility] ЕКАТЕРИНА Perry, Meryl Pereira MD [address] [address] [place] [address] ABDOMINAL PAIN RLQ (Primary Dx) Social History Tobacco Use Types Packs/Day Years Used Date Smoking Tobacco: Never Assessed Comments Unknown Sex and Gender Information Value Date Recorded Sex Assigned at Not on file Legal 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 Female 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 DEICER 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 Gender Identity Not on file Sexual Orientation Not on file documented as of this encounter Plan of Treatment Upcoming Encounters Date Type Department Care Team (Late st Contact Info) Description 10/02/2024 11:45 AM CDT Office Visit [facility] Oncology and Hematology - [place] [address] [facility] [address] [place] [address] Prince Mir MD [address] [facility] [address] [place] [address] documented as of this [...] FETOPROTEIN TUMOR MARKER (11/27/2004 11:54 AM CDT) [facility] ALPHA FETOPROTEIN TUMOR MARKER 2.2 ng/mL INTERFACE SYSTEM Comment: This test was performed using the Formisimo Immulite 2000 Assay. REFERENCE RANGE: <6.1 THE USE OF AFP A TUMOR MARKER IN FEMALES IS NOT RECOMMENDED. Lab test performed by: [facility] [address] [place] [address] EVELINA AMOS MD 11/27/2004 11:5 4 AM CDT Meryl Perry MD CHEMISTRY ORDERABLES Fin al Result INTERFACE SYSTEM Refer to clinic/hospital department * CBC WITH DIFFERENTIAL (11/27/2004 11:54 AM CDT) [facility] NEUTROPHILS 67 45 - 70 % INTERFAC [...] ORDERABLES Fi nal Result Performing Organization Address City/[facility] de Phone Number INTERFACE SYSTEM [...] ORDERABLES Fi nal Result Performing Organization Address [facility] Phone Number INTERFACE SYSTEM Refer to clinic/hospital department * (ABNORMAL) AMYLASE (11/27/2004 11:54 AM CDT) AMYLASE 141(H) 28 - 100 U/L INTERFACE SYSTEM 11/27/2004 11:5 4 AM CDT Meryl Perry MD CHEMISTRY ORDERABLES Fin al Result Performing Organization Address City/[facility] Co de Phone Number INTERFACE SYSTEM Refer to clinic/hospital department * (ABNORMAL) LIPASE (11/27/2004 11:54 AM CDT) LIPASE 97(H) 13 - 60 U/L INTERFAC E SYSTEM 11/27/2004 11:5 4 AM CDT Meryl Perry MD CHEMISTRY ORDERABLES Fin alana Result Performing Organization Address [facility] Phone Number INTERFACE SYSTEM Refer to clinic/hospital department * C-REACTIVE PROTEIN (11/27/2004 11:54 AM CDT) CRP 0.5 0.0 - 0.8 mg/dL INTERFACE SYSTEM 11/27/2004 11:5 4 AM CDT Meryl Perry MD CHEMISTRY ORDERABLES Fin alana Result Performing Organization Address [facility] Clinic Number INTERFACE SYSTEM Refer to clinic/hospital department [...] ORDERABLES Amarjit warner Result Performing Organization Address [facility] Phone Number INTERFACE SYSTEM Refer to [...] in this encounter Care Teams Health And Wellness Coordinator Relationship Specialty Start Date End Date Abrahan Mcgee MD [address] [place] [address] PCP - General Family Practice 04/03/24 documented as of this encounter
--- OUTSIDE RECORDS SUMMARY | 2024-09-28 19:48 | XMS_ITS | Encounter Summary ---
Author Organization [facility] Address [address] [place] [address] Care Team Providers Care Glass Robot Operator Name Role Phone Abrahan Mcgee MD Primary Care Provider Encounter Details Date Type Department Care Team (Latest Contact Info) Description 02/23/2005 Inpatient Historical HIS [facility] Alcon Valadez MD [address] [address] Deisy Garcia MD [address] [address] CHEST PAIN NOS (Primary Dx) Social History Tobacco Use Types Packs/Day Years Used Date Smoking Tobacco: Never Assessed Comments Unknown Sex and Gender Information Value Date Recorded Sex Assigned at Not on file Legal Sex Female 3:33 AM PNEUMATIC JACK OPERATOR Gender Identity Not on file Sexual Orientation Not on file documented as of this encounter Plan of Treatment Upcoming Encounters Date Type Department Care Team (Late st Contact Info) Description 10/02/2024 11:45 AM CDT Office Visit [facility] Oncology and Hematology - [place] [address] [facility] [address] [place] [address] Prince Mir MD [address] [facility] [address] [place] [address] documented as of this encounter Procedures Procedure Name Priority Date/Time Associated Diagnosis Comments CBC WITH DIFFERENTIAL Routine 02/25/2005 4:30 AM PNEUMATIC JACK OPERATOR CBC WITH DIFFERENTIAL Routine 02/25/2005 4:30 AM PNEUMATIC JACK OPERATOR C-REACTIVE PROTEIN Routine 02/25/2005 4: 30 AM PNEUMATIC JACK OPERATOR T3 FREE Routine 02/25/2005 4:30 AM PNEUMATIC JACK OPERATOR T4 FREE Routine 02/25/2005 4:30 AM PNEUMATIC JACK OPERATOR BASIC METABOLIC PANEL Routine 02/25/2005 4:30 AM PNEUMATIC JACK OPERATOR TSH Routine 02/24/2005 4:35 AM PNEUMATIC JACK OPERATOR LIPASE Routine 02/24/2005 4:35 AM PNEUMATIC JACK OPERATOR AMYLASE Routine 02/24/2005 4:35 AM PNEUMATIC JACK OPERATOR LIPID PANEL Routine 02/24/2005 4:35 AM PNEUMATIC JACK OPERATOR BASIC METABOLIC PANEL Routine 02/24/2005 4:35 AM PNEUMATIC JACK OPERATOR TROPONIN (W/REFLEX CKMB/CK) Routine 02/24/2005 4:15 AM PNEUMATIC JACK OPERATOR TROPONIN (W/REFLEX CKMB/CK) Routine 02/23/2005 10:15 PM PNEUMATIC JACK OPERATOR URINALYSIS W/REFLEX MICROSCOPIC Routine 02/23/2005 8:31 PM PNEUMATIC JACK OPERATOR TROPONIN (W/REFLEX CKMB/CK) Routine 02/23/2005 1:28 PM PNEUMATIC JACK OPERATOR CBC WITH DIFFERENTIAL Routine 02/23/2005 12:46 PM PNEUMATIC JACK OPERATOR CBC WITH DIFFERENTIAL Routine 02/23/2005 12:46 PM PNEUMATIC JACK OPERATOR LIPASE Routine 02/23/2005 12:46 PM PNEUMATIC JACK OPERATOR AMYLASE Routine 02/23/2005 12:46 PM PNEUMATIC JACK OPERATOR COMPREHENSIVE METABOLIC PANEL Routine 02/23/2005 12:46 PM PNEUMATIC JACK OPERATOR documented in this encounter Results * CBC WITH DIFFERENTIAL (02/25/2005 4:30 AM PNEUMATIC JACK OPERATOR) NEUTROPHILS 52 45 - 70 % INTERFAC [...] 0.20 K/uL INTERFACE SYSTEM 02/25/2005 4:30 AM PNEUMATIC JACK OPERATOR Alcon Valadez MD HEMATOLOGY ORDERABLES Final Re sult Performing Organization Address [facility] de Phone Number INTERFACE SYSTEM Refer to clinic/hospital department * (ABNORMAL) CBC WITH DIFFERENTIAL (02/25/2005 4:30 AM PNEUMATIC JACK OPERATOR) WBC 7.4 4.0 - 9.8 K/uL INTERFACE [...] 12.4 fL INTERFACE SYSTEM 02/25/2005 4:30 AM PNEUMATIC JACK OPERATOR Alcon Valadez MD HEMATOLOGY ORDERABLES Final Re sult Performing Organization Address [facility]/ZIP Co de Phone Number INTERFACE SYSTEM Refer to clinic/hospital department * T3 FREE (02/25/2005 4:30 AM PNEUMATIC JACK OPERATOR) T3 FREE 2.9 2.5 - 4.4 pg/mL INTERFACE SYSTEM 02/25/2005 4:30 AM PNEUMATIC JACK OPERATOR us Alcon Valadez MD CHEMISTRY ORDERABLES Final Res ult Performing Organization Address [facility] Phone Number INTERFACE SYSTEM Refer to clinic/hospital department * T4 FREE (02/25/2005 4:30 AM PNEUMATIC JACK OPERATOR) T4 FREE 1.3 0.9 - 1.7 ng/dL INTERFACE SYSTEM 02/25/2005 4:30 AM PNEUMATIC JACK OPERATOR us Alcon Valadez MD CHEMISTRY ORDERABLES Final Res ult Performing Organization Address [facility] Phone Number INTERFACE SYSTEM Refer to clinic/hospital department * C-REACTIVE PROTEIN (02/25/2005 4:30 AM PNEUMATIC JACK OPERATOR) CRP 0.6 0.0 - 0.8 mg/dL INTERFACE SYSTEM 02/25/2005 4:30 AM PNEUMATIC JACK OPERATOR us Alcon Valadez MD CHEMISTRY ORDERABLES Final Res ult Performing Organization Address [facility] Phone Number INTERFACE SYSTEM Refer to clinic/hospital department * BASIC METABOLIC PANEL (02/25/2005 4:30 AM PNEUMATIC JACK OPERATOR) GLUCOSE 89 65 - 109 mg/dL INTERFACE [...] 30 mmol/L INTERFACE SYSTEM 02/25/2005 4:30 AM PNEUMATIC JACK OPERATOR Alcon Valadez MD CHEMISTRY ORDERABLES Final Res ult Performing Organization Address [facility] Phone Number INTERFACE SYSTEM Refer to clinic/hospital department * (ABNORMAL) LIPASE (02/24/2005 4:35 AM PNEUMATIC JACK OPERATOR) LIPASE 90(H) 13 - 60 U/L INTERFAC E SYSTEM 02/24/2005 4:35 AM PNEUMATIC JACK OPERATOR us Nora Sivaprasad CHEMISTRY ORDERABLES Final Resu lt Performing Organization Address [facility] Phone Number INTERFACE SYSTEM Refer to clinic/hospital department * (ABNORMAL) AMYLASE (02/24/2005 4:35 AM PNEUMATIC JACK OPERATOR) AMYLASE 118(H) 28 - 100 U/L INTERFACE SYSTEM 02/24/2005 4:35 AM PNEUMATIC JACK OPERATOR Nora Sivaprasad CHEMISTRY ORDERABLES Final Resu lt Performing Organization Address [facility] Phone Number INTERFACE SYSTEM Refer to clinic/hospital department * (ABNORMAL) TSH (02/24/2005 4:35 AM PNEUMATIC JACK OPERATOR) TSH 4.33(H) 0.27 - 4.20 uU/mL INTERFACE SYSTEM 02/24/2005 4:35 AM PNEUMATIC JACK OPERATOR Nora Sivaprasad CHEMISTRY ORDERABLES Final Resu lt Performing Organization Address [facility] Phone Number INTERFACE SYSTEM Refer to clinic/hospital department * LIPID PANEL (02/24/2005 4:35 AM PNEUMATIC JACK OPERATOR) LIPID PANEL COMMENT See below INTERFACE SYSTEM [...] section for risk classifications. 02/24/2005 4:35 AM PNEUMATIC JACK OPERATOR [employer] CHEMISTRY ORDERABLES Final Resu lt Performing Organization Address City/[facility] Co de Phone Number INTERFACE SYSTEM Refer to clinic/hospital department * BASIC METABOLIC PANEL (02/24/2005 4:35 AM PNEUMATIC JACK OPERATOR) GLUCOSE 100 65 - 109 mg/dL INTERFACE [...] 30 mmol/L INTERFACE SYSTEM 02/24/2005 4:35 AM PNEUMATIC JACK OPERATOR Nora [place] CHEMISTRY ORDERABLES Final Resu lt Performing Organization Address City/[facility]/ZIP Co de Phone Number INTERFACE SYSTEM Refer to clinic/hospital department * TROPONIN (W/REFLEX CKMB/CK) (02/24/2005 4:15 AM PNEUMATIC JACK OPERATOR) TROPONIN T <0.01 <=0.03 ng/mL INTERFACE SYSTEM TROPONIN T INTERP Negative INTERFACE SYSTEM 02/24/2005 4:15 AM PNEUMATIC JACK OPERATOR [facility] Sivaprasad CHEMISTRY ORDERABLES Final Resu lt Performing Organization Address [facility] Phone Number INTERFACE SYSTEM Refer to clinic/hospital department * TROPONIN (W/REFLEX CKMB/CK) (02/23/2005 10:15 PM PNEUMATIC JACK OPERATOR) TROPONIN T <0.01 <=0.03 ng/mL INTERFACE SYSTEM TROPONIN T INTERP Negative INTERFACE SYSTEM 02/23/2005 10:1 5 PM PNEUMATIC JACK OPERATOR [facility] Kidizenaprasad CHEMISTRY ORDERABLES Final Resu lt Performing Organization Address [facility] Phone Number INTERFACE SYSTEM Refer to clinic/hospital department * (ABNORMAL) URINALYSIS (02/23/2005 8:31 PM PNEUMATIC JACK OPERATOR) COLOR UA Yellow INTERFACE SYSTEM CLARITY UA [...] 2-5 /HPF INTERFACE SYSTEM 02/23/2005 8:31 PM PNEUMATIC JACK OPERATOR [facility] Sivaprasad URINE ORDERABLES Final Result Performing Organization Address [facility] Phone Number INTERFACE SYSTEM Refer to clinic/hospital department * TROPONIN (W/REFLEX CKMB/CK) (02/23/2005 1:28 PM PNEUMATIC JACK OPERATOR) TROPONIN T <0.01 <=0.03 ng/mL INTERFACE SYSTEM TROPONIN T INTERP Negative INTERFACE SYSTEM 02/23/2005 1:28 PM PNEUMATIC JACK OPERATOR us Erika P Er CHEMISTRY ORDERABLES Final Resul t Performing Organization Address [facility] de Phone Number INTERFACE SYSTEM Refer to clinic/hospital department * CBC WITH DIFFERENTIAL (02/23/2005 12:46 PM PNEUMATIC JACK OPERATOR) NEUTROPHILS 70 45 - 70 % INTERFAC [...] K/uL INTERFACE SYSTEM 02/23/2005 12:4 6 PM PNEUMATIC JACK OPERATOR Jasbir Sol MD HEMATOLOGY ORDERABLES Final Re sult Performing Organization Address [facility] Phone Number INTERFACE SYSTEM Refer to clinic/hospital department * (ABNORMAL) CBC WITH DIFFERENTIAL (02/23/2005 12:46 PM PNEUMATIC JACK OPERATOR) WBC 9.3 4.0 - 9.8 K/uL INTERFACE [...] fL INTERFACE SYSTEM 02/23/2005 12:4 6 PM PNEUMATIC JACK OPERATOR Jasbir Sol MD HEMATOLOGY ORDERABLES Final Re sult Performing Organization Address [facility] Phone Number INTERFACE SYSTEM Refer to clinic/hospital department * (ABNORMAL) LIPASE (02/23/2005 12:46 PM PNEUMATIC JACK OPERATOR) LIPASE 91(H) 13 - 60 U/L INTERFAC E SYSTEM 02/23/2005 12:4 6 PM PNEUMATIC JACK OPERATOR Jasbir Sol MD CHEMISTRY ORDERABLES Final Res ult Performing Organization Address [facility] Phone Number INTERFACE SYSTEM Refer to clinic/hospital department * (ABNORMAL) AMYLASE (02/23/2005 12:46 PM PNEUMATIC JACK OPERATOR) AMYLASE 134(H) 28 - 100 U/L INTERFACE SYSTEM 02/23/2005 12:4 6 PM PNEUMATIC JACK OPERATOR Jasbir Sol MD CHEMISTRY ORDERABLES Final Res ult Performing Organization Address [facility] Phone Number INTERFACE SYSTEM Refer to clinic/hospital department * (ABNORMAL) COMPREHENSIVE METABOLIC PANEL (02/23/2005 12:46 PM PNEUMATIC JACK OPERATOR) GLUCOSE 115(H) 65 - 109 mg/dL INTERFACE [...] mmol/L INTERFACE SYSTEM 02/23/2005 12:4 6 PM PNEUMATIC JACK OPERATOR us Jasbir Sol MD CHEMISTRY ORDERABLES Final Res ult INTERFACE SYSTEM Refer to clinic/hospital department documented in this encounter Visit Diagnoses Diagnosis Chest pain, unspecified- Primary documented in this encounter Care Teams Glass Robot Operator Relationship Specialty Start Date End Date Abrahan Mcgee MD [address] [place] [address] PCP - General Family Practice 04/03/24 documented as of this encounter
--- OUTSIDE RECORDS SUMMARY | 2024-09-28 19:48 | XMS_ITS | Encounter Summary ---
Author Organization [facility] Address [address] [place] [address] Care Team Providers Care Maple Products Maker Name Role Phone Abrahan Mcgee MD Primary Care Provider [phone] Encounter Details Date Type Department Care Team (Latest Contact Info) Description 09/16/2004 Outpatient Historical HIS [facility] Andre Vidal MD NO ADDRESS ON FILE BENIGN HYPERTENSION (Primary Dx) Social History Tobacco Use Types Packs/Day Years Used Date Smoking Tobacco: Never Assessed Comments Unknown Sex and Gender Information Value Date Recorded Sex Assigned at Not on file Legal Sex Female 3:33 AM OUTSIDE MACHINIST Gender Identity Not on file Sexual Orientation Not on file documented as of this encounter Plan of Treatment Upcoming Encounters Date Type Department Care Team (Late st Contact Info) Description 10/02/2024 11:45 AM CDT Office Visit [facility] Oncology and Hematology - [place] [address] [facility] [address] [place] [address] Prince Mir MD [address] [facility] [address] [place] [address] documented as of this encounter [...] ORDERABLES Final Re sult Performing Organization Address City/[facility] Co de Phone Number INTERFACE SYSTEM Refer to clinic/hospital department * TSH (09/16/2004 11:48 AM CDT) TSH 1.55 0.27 - 4.20 uU/mL INTERFACE SYSTEM 09/16/2004 11:4 8 AM CDT Andre Ernst MD CHEMISTRY ORDERABLES Final Res ult Performing Organization Address City/[facility] Co de Phone Number INTERFACE SYSTEM [...] ORDERABLES Final Res ult Performing Organization Address City/[facility] Co de Phone Number INTERFACE SYSTEM Refer to clinic/hospital department documented in this encounter Visit Diagnoses Diagnosis Essential hypertension, benign- Primary documented in this encounter Care Teams Maple Products Maker Relationship Specialty Start Date End Date Abrahan Mcgee MD [address] [place] [address] PCP - General Family Practice 04/03/24 documented as of this encounter
--- OUTSIDE RECORDS SUMMARY | 2024-09-28 19:48 | XMS_ITS | Encounter Summary ---
Author Organization [facility] Address [address] [place] [address] Care Team Providers Care Disabilities Services Officer Name Role Phone Abrahan Mcgee MD Primary Care Provider [phone] Encounter Details Date Type Department Care Team (Latest Contact Info) Description 12/04/2005 Outpatient Historical HIS [place] Andre Vidal MD NO ADDRESS ON FILE Essential Hypertension, Benign (Primary Dx) Social History Tobacco Use Types Packs/Day Years Used Date Smoking Tobacco: Never Assessed Comments Unknown Sex and Gender Information Value Date Recorded Sex Assigned at Not on file Legal Sex Female 3:33 AM SYSTEM CONTROLLER Gender Identity Not on file Sexual Orientation Not on file documented as of this encounter Plan of Treatment Upcoming Encounters Date Type Department Care Team (Late st Contact Info) Description 10/02/2024 11:45 AM CDT Office Visit [facility] Oncology and Hematology - [place] [address] [facility] [address] [place] [address] Prince Mir MD [address] [facility] [address] [place] [address] documented as of this encounter [...] ORDERABLES Final Res ult Performing Organization Address City/[facility] Co de Phone Number [...] ORDERABLES Final Res ult Performing Organization Address City/[facility]/ZIP Co de Phone Number INTERFACE SYSTEM Refer to clinic/hospital department documented in this encounter Visit Diagnoses Diagnosis Essential hypertension, benign- Primary documented in this encounter Care Teams Disabilities Services Officer Relationship Specialty Start Date End Date Abrahan Mcgee MD [address] [place] [address] PCP - General Family Practice 04/03/24 documented as of this encounter
--- OUTSIDE RECORDS SUMMARY | 2024-09-28 19:48 | XMS_ITS | Encounter Summary ---
Author Organization [facility] Address [address] [place] [address] Care Team Providers Care Public Improvement Inspector Name Role Phone Abrahan Mcgee MD Primary Care Provider [phone] Encounter Details Date Type Department Care Team (Late st Contact Info) Description 09/16/2004 Outpatient Historical HIS [facility] Andre Ernst MD NO ADDRESS ON FILE Social History Tobacco Use Types Packs/Day Years Used Date Smoking Tobacco: Never Assessed Comments Unknown Sex and Gender Information Value Date Recorded Sex Assigned at Not on file Legal Sex Female 3:33 AM DYE WEIGHER HELPER Gender Identity Not on file Sexual Orientation Not on file documented as of this encounter Plan of Treatment Upcoming Encounters Date Type Department Care Team (Late st Contact Info) Description 10/02/2024 11:45 AM CDT Office Visit [facility] Oncology and Hematology - [place] [address] [place] [address] [address] [place] [address] [place] [address] [place] [address] [address] [place] [address] documented as of this encounter Visit Diagnoses Not on filedocumented in this encounter Care Teams Public Improvement Inspector Relationship Specialty Start Date End Date Abrahan Mcgee MD [address] [place] [address] PCP - General Family Practice 04/03/24 documented as of this encounter
--- OUTSIDE RECORDS SUMMARY | 2024-09-28 19:48 | XMS_ITS | Encounter Summary ---
Author Organization [facility] Address [address] [place] [address] Care Team Providers Care Cementer Machine Joiner Name Role Phone Abrahan Mcgee MD Primary Care Provider [phone] Encounter Details Date Type Department Care Team (Latest Contact Info) Description 11/24/2005 Outpatient Historical HIS [facility] ЕК[facility]ТЕРИНА Sneed, Oscar Medeiros MD NO ADDRESS ON FILE Other Screening Mammogram (Primary Dx) Social History Tobacco Use Types Packs/Day Years Used Date Smoking Tobacco: Never Assessed Comments Unknown Sex and Gender Information Value Date Recorded Sex Assigned at Not on file Legal Sex Female 3:33 AM CELLAR PUMPER Gender Identity Not on file Sexual Orientation Not on file documented as of this encounter Plan of Treatment Upcoming Encounters Date Type Department Care Team (Late st Contact Info) Description 10/02/2024 11:45 AM CDT Office Visit [facility] Oncology and Hematology - [place] [address] [place] [address] [address] [place] [address] [place] [address] [place] [address] [address] [place] [address] documented as of this encounter Visit Diagnoses Diagnosis Other screening mammogram- Primary documented in this encounter Care Teams Cementer Machine Joiner Relationship Specialty Start Date End Date Abrahan Mcgee MD [address] [place] [address] PCP - General Family Practice 04/03/24 documented as of this encounter
--- OUTSIDE RECORDS SUMMARY | 2024-09-28 19:48 | XMS_ITS | Encounter Summary ---
Author Organization [facility] Address [address] [place] [address] Care Team Providers Care Softball Coach Name Role Phone Abrahan Mcgee MD Primary Care Provider [phone] Encounter Details Date Type Department Care Team [...] on file Legal Sex Female 3:33 AM VENEER DRIER TAILER Gender Identity Not on file Sexual Orientation Not on file documented as of this encounter Plan of Treatment Upcoming Encounters Date Type Department Care Team (Late st Contact Info) Description 10/02/2024 11:45 AM CDT Office Visit [facility] Oncology and Hematology - [place] [address] [place] [address] [address] [place] [address] Prince Mir MD [address] [place] [address] [address] [place] [address] documented as of this encounter Visit Diagnoses Diagnosis Allergic rhinitis due to pollen- Primary documented in this encounter Care Teams Softball Coach Relationship Specialty Start Date End Date Abrahan Mcgee MD [address] [place] [address] PCP - General Family Practice 04/03/24 documented as of this encounter
--- OUTSIDE RECORDS SUMMARY | 2024-09-28 19:48 | XMS_ITS | Encounter Summary ---
Author Organization [facility] Address [address] [place] [address] Care Team Providers Care Personnel Quality Assurance Auditor Name Role Phone Abrahan Mcgee MD Primary Care Provider [phone] Encounter Details Date Type Department Care Team (Late st Contact Info) Description 07/09/2005 Outpatient Historical HIS [facility] INTERNISTS Andre Ernst MD NO ADDRESS ON FILE Social History Tobacco Use Types Packs/Day Years Used Date Smoking Tobacco: Never Assessed Comments Unknown Sex and Gender Information Value Date Recorded Sex Assigned at Not on file Legal Sex Female 3:33 AM DISABILITY SPECIALIST Gender Identity Not on file Sexual Orientation Not on file documented as of this encounter Plan of Treatment Upcoming Encounters Date Type Department Care Team (Late st Contact Info) Description 10/02/2024 11:45 AM CDT Office Visit [facility] Oncology and Hematology - [place] [address] [place] [address] [address] [place] [address] [place] [address] [place] [address] [address] [place] [address] documented as of this encounter Visit Diagnoses Not on filedocumented in this encounter Care Teams Personnel Quality Assurance Auditor Relationship Specialty Start Date End Date Abrahan Mcgee MD [address] [place] [address] PCP - General Family Practice 04/03/24 documented as of this encounter
--- OUTSIDE RECORDS SUMMARY | 2024-09-28 19:48 | XMS_ITS | Encounter Summary ---
Author Organization [facility] Address [address] [place] [address] Care Team Providers Care Nip Wrapper Name Role Phone Abrahan Mcgee MD Primary Care Provider [phone] Encounter Details Date Type Department Care Team (Latest Contact Info) Description 11/27/2004 Outpatient Historical HIS [facility] Sneed, Oscar Medeiros MD NO ADDRESS ON FILE SCREENING MAMM-MAILG NEOPL NEC (Primary Dx) Social History Tobacco Use Types Packs/Day Years Used Date Smoking Tobacco: Never Assessed Comments Unknown Sex and Gender Information Value Date Recorded Sex Assigned at Not on file Legal Sex Female 3:33 AM WEED ERADICATOR Gender Identity Not on file Sexual Orientation Not on file documented as of this encounter Plan of Treatment Upcoming Encounters Date Type Department Care Team (Late st Contact Info) Description 10/02/2024 11:45 AM CDT Office Visit [facility] Oncology and Hematology - [place] [address] [place] [address] [address] [place] [address] [place] [address] [place] [address] [address] [place] [address] documented as of this encounter Visit Diagnoses Diagnosis Other screening mammogram- Primary documented in this encounter Care Teams Nip Wrapper Relationship Specialty Start Date End Date Abrahan Mcgee MD [address] [place] [address] PCP - General Family Practice 04/03/24 documented as of this encounter
--- OUTSIDE RECORDS SUMMARY | 2024-09-28 19:48 | XMS_ITS | Clinical Summary ---
Author Organization [facility] Address [address] [place] [address] Care Team Providers Care American Board Certified Orthotist Name Role Phone Luigi Nicole PA-C Primary Care Provider [phone] Luigi Nicole PA-C Unavailable Allergies Active Allergy [...] (eight) hours as needed. 07/08/19 Active ZENPEP 64350-77935 units CAPSULE ENTERIC COATED PARTICLES Take by [...] mouth nightly. Every other month Active Pancrelipase, Jnq-Laty-Azuv, 62438-27[address] units CAPSULE ENTERIC COATED PARTICLES Take 50,000 [...] drink = 0.6 oz pur e alcohol) [facility] Utilities Answer Date Recorded In the past [...] any time in the past 12 [facility], were you homeless or living in a long term (including now)? No 08/20/2023 Comments No Sex [...] 10:05 AM 08/21/2023 1:30 PM Care Teams American Board Certified Orthotist Relationship Specialty Start Date End Date Luigi Nicole PA-C [address] [address] PCP - General PHYSICIAN DRIVEMATIC MACHINE OPERATOR 08/20/23 Luigi Nicole PA-C [address] [address] PHYSICIAN DRIVEMATIC MACHINE OPERATOR 08/20/23
--- OUTSIDE RECORDS SUMMARY | 2024-09-28 19:48 | XMS_ITS | Encounter Summary ---
Author Organization [facility] Address [address] [place] [address] Care Team Providers Care Design Coordinator Name Role Phone Abrahan Mcgee MD Primary Care Provider [phone] Encounter Details Date Type Department Care Team (Late st Contact Info) Description 12/18/2004 Outpatient Historical HIS [facility] INTERNISTS Andre Ernst MD NO ADDRESS ON FILE Social History Tobacco Use Types Packs/Day Years Used Date Smoking Tobacco: Never Assessed Comments Unknown Sex and Gender Information Value Date Recorded Sex Assigned at Not on file Legal Sex Female 3:33 AM POLE CUTTER Gender Identity Not on file Sexual Orientation Not on file documented as of this encounter Plan of Treatment Upcoming Encounters Date Type Department Care Team (Late st Contact Info) Description 10/02/2024 11:45 AM CDT Office Visit [facility] Oncology and Hematology - [place] [address] [place] [address] [address] [place] [address] [place] [address] [place] [address] [address] [place] [address] documented as of this encounter Visit Diagnoses Not on filedocumented in this encounter Care Teams Design Coordinator Relationship Specialty Start Date End Date Abrahan Mcgee MD [address] [place] [address] PCP - General Family Practice 04/03/24 documented as of this encounter
--- OUTSIDE RECORDS SUMMARY | 2024-09-28 19:48 | XMS_ITS | Encounter Summary ---
Author Organization [facility] Address [address] [place] [address] Care Team Providers Care Sap Basis Consultant Name Role Phone Abrahan Mcgee MD Primary Care Provider [phone] Encounter Details Date Type Department Care Team (Late st Contact Info) Description 07/30/2005 Outpatient Historical HIS [facility] INTERNISTS Andre Ernst MD NO ADDRESS ON FILE Social History Tobacco Use Types Packs/Day Years Used Date Smoking Tobacco: Never Assessed Comments Unknown Sex and Gender Information Value Date Recorded Sex Assigned at Not on file Legal Sex Female 3:33 AM NETWORKER Gender Identity Not on file Sexual Orientation Not on file documented as of this encounter Plan of Treatment Upcoming Encounters Date Type Department Care Team (Late st Contact Info) Description 10/02/2024 11:45 AM CDT Office Visit [facility] Oncology and Hematology - [place] [address] [place] [address] [address] [place] [address] [place] [address] [place] [address] [address] [place] [address] documented as of this encounter Visit Diagnoses Not on filedocumented in this encounter Care Teams Sap Basis Consultant Relationship Specialty Start Date End Date Abrahan Mcgee MD [address] [place] [address] PCP - General Family Practice 04/03/24 documented as of this encounter
--- OUTSIDE RECORDS SUMMARY | 2024-09-28 19:48 | XMS_ITS | Encounter Summary ---
Author Organization [facility] Address 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 Gender Identity Not on file Sexual Orientation Not on file documented as of this encounter Plan of Treatment Upcoming Encounters Date Type Department Care Team (Late st Contact Info) Description 10/02/2024 11:45 AM CDT Office Visit [facility] Oncology and Hematology - [place] [address] [place] [address] [address] [place] [address] [place] [address] [place] [address] [address] [place] [address] documented as of this encounter Visit Diagnoses Not on filedocumented in this encounter Care Teams Math And Sciences Department Chair Relationship Specialty Start Date End Date Abrahan Mcgee MD [address] [place] [address] PCP - General Family Practice 04/03/24 documented as of this encounter
--- OUTSIDE RECORDS SUMMARY | 2024-09-28 19:48 | XMS_ITS | Encounter Summary ---
Author Organization [facility] Address 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 Gender Identity Not on file Sexual Orientation Not on file documented as of this encounter Plan of Treatment Upcoming Encounters Date Type Department Care Team (Late st Contact Info) Description 10/02/2024 11:45 AM CDT Office Visit [facility] Oncology and Hematology - [place] [address] [place] [address] [address] [place] [address] [place] [address] [place] [address] [address] [place] [address] documented as of this encounter Visit Diagnoses Not on filedocumented in this encounter Care Teams Pesticide Use Medical Coordinator Relationship Specialty Start Date End Date Abrahan Mcgee MD [address] [place] [address] PCP - General Family Practice 04/03/24 documented as of this encounter
--- OUTSIDE RECORDS SUMMARY | 2024-09-28 19:48 | XMS_ITS | Clinical Summary ---
Author Organization [facility] Care Team Providers Care Paintless Dent Repair Technician Name Role Phone Unavailable Primary Care Provider [...]
--- OUTSIDE RECORDS SUMMARY | 2024-09-28 19:48 | XMS_ITS | Encounter Summary ---
Author Organization [facility] Address [address] [place] [address] Care Team Providers Care Hand Binder Cutter Name Role Phone Abrahan Mcgee MD Primary Care Provider [phone] Encounter Details Date Type Department Care Team (Late st Contact Info) Description 02/23/2005 Outpatient Historical [facility] Adult Hospitalists [facility] [address] [place] [address] Deisy Garcia MD [id number] [place] [address] Social History Tobacco Use Types Packs/Day Years Used Date Smoking Tobacco: Never Assessed Comments Unknown Sex and Gender Information Value Date Recorded Sex Assigned at Not on file Legal Sex Female 3:33 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 Gender Identity Not on file Sexual Orientation Not on file documented as of this encounter Plan of Treatment Upcoming Encounters Date Type Department Care Team (Late st Contact Info) Description 10/02/2024 11:45 AM CDT Office Visit [facility] Oncology and Hematology - [place] [address] [facility] [address] [place] [address] Prince Mir MD [address] [facility] [address] [place] [address] documented as of this encounter Visit Diagnoses Not on filedocumented in this encounter Care Teams Hand Binder Cutter Relationship Specialty Start Date End Date Abrahan Mcgee MD [address] [place] [address] PCP - General Family Practice 04/03/24 documented as of this encounter
--- OUTSIDE RECORDS SUMMARY | 2024-09-28 19:48 | XMS_ITS | Encounter Summary ---
Author Organization [facility] Address [address] [place] [address] Care Team Providers Care Certified Nurse Midwife Name Role Phone Abrahan Mcgee MD Primary Care Provider [phone] Encounter Details Date Type Department Care Team (Late st Contact Info) Description 12/17/2004 Outpatient Historical [facility] Meryl Perry MD [address] [address] BENIGN NEOPLASM LG BOWEL (Primary Dx) Social History Tobacco Use Types Packs/Day Years Used Date Smoking Tobacco: Never Assessed Comments Unknown Sex and Gender Information Value Date Recorded Sex Assigned at Not on file Legal Sex Female 3:33 AM SHADE MAKER Gender Identity Not on file Sexual Orientation Not on file documented as of this encounter Plan of Treatment Upcoming Encounters Date Type Department Care Team (Late st Contact Info) Description 10/02/2024 11:45 AM CDT Office Visit [facility] Oncology and Hematology - [place] [address] [facility] [address] [place] [address] Prince Mir MD [address] [facility] [address] [place] [address] documented as of this encounter Visit Diagnoses Diagnosis Benign neoplasm of colon- Primary documented in this encounter Care Teams Certified Nurse Midwife Relationship Specialty Start Date End Date Abrahan Mcgee MD [address] [place] [address] PCP - General Family Practice 04/03/24 documented as of this encounter
--- NOTE | 2024-09-28 20:43 | ED_ITS ---
HPI - General Adult General Chief complaint: Headache Stated complaint: head is burning Time Seen by Provider: 09/28/24 19:30 History of Present Illness HPI narrative: This is an 88-year-old female presenting for a headache. Patient says that 1 week ago she was sitting out in her car in the heat with the windows down. She was not feeling very well and developed a burning sensation that was in a ring around her head. Since then she is intermittently had the pain and it is worse when she lays down. It is not associated with loss of consciousness visual changes or any neurologic deficits. She called her primary care physician to arrange an appointment and they instructed her to come to the ED to make sure that she did not have a stroke. Related Data Home Medications ?Medication ?Instructions ?Recorded ?Confirmed ?Last Taken ?Type aluminum hydrox-magnesium carb 95 15 ml PO PRN PRN Heartburn 05/06/21 09/26/24 07/27/21 History mg-358 mg/15 mL oral suspension (Gaviscon) vit C,E,copper,zinc-dpxua3n 250 1 cap PO DAILY 05/13/21 09/26/24 07/27/21 History mg-lutein 5 mg-zeaxanthin 1 mg capsule (Ocuvite Adult 50 Plus) artificial 1 drp EACH EYE ONCE PRN Dry Eye(S) 12/01/21 09/26/24 Unknown History tears(gohikcw-gupunlwr-aosmwtq) 0.1 %-0.3 %-0.2 % eye drops (GenTeal Tears Moderate) anastrozole 1 mg tablet 1 mg PO DAILY 07/07/22 09/26/24 Unknown History fluticasone propionate 50 1 spray intranasal BID PRN 02/08/23 09/26/24 Unknown History mcg/actuation nasal Congestion spray,suspension (Flonase Allergy Relief) loratadine 10 mg tablet (Claritin) 10 mg PO DAILY 02/08/23 09/26/24 Unknown History calcium 600 mg (as 1 tablet PO DAILY 08/30/23 09/26/24 Unknown History carbonate)-vitamin D3 10 mcg (400 unit) tablet (Calcium 600 + D(3)) ascorbic acid (vitamin C) 1,500 mg 1,500 mg PO Q12H 02/14/24 09/26/24 Unknown History tablet,extended release rhdsdj-bhzkylgi-ywaotvy See Rx Instructions PO .COMPLEX 02/14/24 09/26/24 Unknown History 25,000-85,000-136,000 unit capsule,delayed rel trospium 20 mg tablet 20 mg PO .QOD 07/13/24 09/26/24 Unknown History famotidine 10 mg tablet 10 mg PO .COMPLEX 09/26/24 09/26/24 Unknown History pregabalin 25 mg capsule 25 mg PO BID 09/26/24 09/26/24 Unknown History Allergies Allergy/AdvReac Type Severity Reaction Status Date / Time amoxicillin Allergy Mild Nausea AND Verified 09/26/24 07:51 ITCHING esomeprazole Allergy Unknown Itching Verified 09/26/24 07:51 pantoprazole Allergy Unknown Itching Verified 09/26/24 07:51 rabeprazole Allergy Unknown Itching Verified 09/26/24 07:51 ropinirole AdvReac Intermediate tremor Verified 09/26/24 12:59 codeine AdvReac Unknown N/V Verified 09/26/24 07:51 [facility] Past Medical History Medical History Bilateral carpal tunnel syndrome Fracture of greater tuberosity of left humerus Ataxia Peripheral neuropathy Acute pain of left shoulder Restless legs syndrome Benign essential tremor Ductal carcinoma in situ of right breast Acid reflux Bruises easily Urinary incontinence Hypertension Arthritis Anemia Surgical History Surgical History Status post open reduction and internal fixation (ORIF) of fracture (~09/03/23) Left greater tuberosity fracture S/P lumpectomy, right breast H/O right breast biopsy (02/19/23) DUCTAL CARCINOMA IN SITU OF RIGHT BREAST Hx of cataract surgery History of hip replacement History of hemorrhoidectomy History of colonoscopy History of repair of hiatal hernia History of ERCP History of esophagogastroduodenoscopy (EGD) History of cholecystectomy Family History Family History Sibling Family history of diabetes mellitus in first degree relative Family history of lymphoma Family history of malignant neoplasm of kidney Mother , 1 month after childbirth in 1936 No problems noted. Father Malignant brain tumor Sibling Seizures COPD (chronic obstructive pulmonary disease) Lymphoma Sibling Diabetes mellitus Hypertension Heart disease Bone cancer Brain tumor Social History Social History Smoking packs per day: 0.5 Smoking cigarettes per day: 10.0 Years smoked: 49 Smoking pack-years: 24.50 Smoking status: Former smoker Tobacco type: cigarettes Second hand tobacco smoke exposure: No Smoking end date: 03/01/00 Alcohol intake: never Substance use: current Substance use type: does not use Other substance usage details: 15MG CBD FOR PAIN Do You Feel Safe in your Home?: Yes Lack of Transportation: No Lack of Food: Never True Current Housing: I Have Housing Concerned About Future Housing: No Difficulty Paying Gas/Electric Bills: No Difficulty Paying for Meds: No Currently Unemployed: No Education: High School Diploma/GED Difficulty w/ Childcare or Family Care: No Living arrangements: with family Additional living arrangements comments: Occupation/Education: retired Gender identity (if verbalized by the patient): Female Sexual Orientation (if Verbalized by the Patient): Straight or Heterosexual Spiritual care concerns: No Exam Narrative: APPEARANCE: No apparent distress. Head: Physical exam of the scalp and head was unremarkable EYES: EOMI, NOSE: Atraumatic NECK: Trachea midline RESPIRATORY: No increased rate of breathing clear to auscultation CARDIOVASCULAR: RRR, ABDOMINAL: Non-distended MUSCULOSKELETAl: No obvious deformities NEURO: Alert. Cranial nerves 2-12 grossly intact. Sensation light touch, motor function cerebellar function intact for 4 extremities. Gait exam was normal. SKIN:: Warm, dry. Normal color PSYCHIATRIC: Normal affect Course Vital Signs Vital signs: Vital Signs Temperature 98.0 F 09/28/24 19:22 Pulse Rate 86 09/28/24 19:22 Respiratory Rate 09/28/24 19:22 Blood Pressure 152/78 H 09/28/24 19:22 Pulse Oximetry 96 09/28/24 19:22 Oxygen Delivery Room Air 09/28/24 19:22 Temperature 98.0 F 09/28/24 19:22 Pulse Rate 71 09/28/24 20:56 Respiratory Rate 09/28/24 20:56 Blood Pressure 162/66 H 09/28/24 20:56 Pulse Oximetry 99 09/28/24 20:56 Oxygen Delivery Room Air 09/28/24 19:22 Medical Decision Making MDM Narrative Medical decision making narrative: -Course: 80-year-old female presenting with a burning sensation around her head for 1 week. Neurologic exam is normal. Physical exam of her scalp is normal. Unclear etiology. CT of her brain was unremarkable. Patient declined all pain medication says she is only here could she was sent in by her primary care physician. On re-evaluation she is well-appearing with stable vitals. Patient be discharged follow-up with them. -DDX includes but is not limited to: Occipital neuralgia, tension headache migraine headache intracranial hemorrhage Vital Signs Vital Signs: Vital Signs Temperature 98.0 F 09/28/24 19:22 Pulse Rate 86 09/28/24 19:22 Respiratory Rate 20 09/28/24 19:22 Blood Pressure 152/78 H 09/28/24 19:22 Pulse Oximetry 96 09/28/24 19:22 Oxygen Delivery Room Air 09/28/24 19:22 Temperature 98.0 F 09/28/24 19:22 Pulse Rate 71 09/28/24 20:56 Respiratory Rate 19 09/28/24 20:56 Blood Pressure 162/66 H 09/28/24 20:56 Pulse Oximetry 99 09/28/24 20:56 Oxygen Delivery Room Air 09/28/24 19:22 Discharge Plan Discharge Clinical Impression: Headache Patient Disposition: Home Condition: Stable Instructions: Antibiotic Form, Acute Headache (ED) Additional Instructions: Please follow-up with your primary care physician. Return if you develop slurred, speech difficulty speaking or swallowing or weakness to any extremity. Patient Language: Cape Verde[place] Prescriptions: No Action Ocuvite Adult 50 Plus 250-5-1 mg capsule 1 cap PO DAILY Gaviscon 95-358 mg/15 mL suspension 15 ml PO PRN PRN (Reason: Heartburn) Rx Instructions: OTC GenTeal Tears Moderate 0.1-0.3-0.2 % drops 1 drp EACH EYE ONCE PRN (Reason: Dry Eye(S)) anastrozole 1 mg tablet 1 mg PO DAILY ascorbic acid (vitamin C) 1,500 mg tablet extended release 1,500 mg PO Q12H ybvudu-vqjvigbs-klptdkd 25,000-85,000- 136,000 unit capsule,delayed release(DR/EC) See Rx Instructions PO .COMPLEX Rx Instructions: 2 with meal and 1 with a snack orally; trospium 20 mg tablet 20 mg PO .QOD Rx Instructions: administer on an empty stomach pregabalin 25 mg capsule 25 mg PO BID famotidine 10 mg tablet 10 mg PO .COMPLEX Rx Instructions: 10 mg orally once a day every other month; pregabalin 25 mg capsule 50 mg PO QHS Qty: 60 2RF loratadine [Claritin] 10 mg Tablet 10 mg PO DAILY fluticasone propionate [Flonase Allergy Relief] 50 mcg/actuation spray,suspension 1 spray intranasal BID PRN (Reason: Congestion) Rx Instructions: administer into each nostril calcium carbonate-vitamin D3 [Calcium 600 + D(3)] 600 mg-10 mcg (400 unit) Tablet 1 tablet PO DAILY montelukast [Singulair] 10 mg tablet 10 mg PO QHS Qty: 90 1RF amlodipine 5 mg tablet 2.5 mg PO DAILY Qty: 90 1RF alprazolam 0.25 mg tablet 0.25 mg PO TID PRN (Reason: anxiety) Qty: 30 0RF Follow-up/Referrals: Abrahan Mcgee MD [Primary Care Provider] -
[2024-09-28 20:56] VITALS: BP 162/66; PULSE 71; RESP 19; O2SAT 99
== END 2024-09-28 22:44 | disposition home or self-care (01) ==
PROVIDERS: Emergency Provider Emergency Medicine; PCP Family Medicine
DX: R51.9 Headache, unspecified (principal); I10 Essential (primary) hypertension; G62.9 Polyneuropathy, unspecified; G25.81 Restless legs syndrome; K21.9 Gastro-esophageal reflux disease without esophagitis; M19.90 Unspecified osteoarthritis, unspecified site; R32 Unspecified urinary incontinence; Z96.649 Presence of unspecified artificial hip joint; Z86.2 Personal history of diseases of the blood and blood-forming organs and certain disorders involving the immune mechanism; Z85.3 Personal history of malignant neoplasm of breast; Z87.891 Personal history of nicotine dependence; Z98.49 Cataract extraction status, unspecified eye; Z90.49 Acquired absence of other specified parts of digestive tract; Z79.1 Long term (current) use of non-steroidal anti-inflammatories (NSAID); Z79.899 Other long term (current) drug therapy
CPT/HCPCS: 70450; 99284

== ENCOUNTER 2024-10-02 10:34 | Outpatient (CLI) | payer MEDICARE, SELFPAY ==
[2024-10-02 10:50] LABS: Hematocrit 39.4 % (37.0-47.0); Hemoglobin 13.3 g/dL (12.0-15.0); Immature Granulocyte Percent A 0.3 % (0-0.5); Lymphocytes Absolute Auto 0.92 K/mm3 (0.9-3.2); Mean Corpuscular HGB Conc 33.8 g/dl (32-36); Mean Corpuscular Hemoglobin 32.5 pg (26-34); Mean Corpuscular Volume 96.3 fl (80-100); Nucleated Red Blood Cells Absolute Auto 0.000 K/mm3 (0.0-0.012); Nucleated Red Blood Cells Perc 0.0 % (0.0-0.2); Platelet Count Result 234 k/mm3 (150-375); Red Blood Count 4.09 M/mm3 (4.2-5.4); White Blood Count 7.7 K/mm3 (4.5-10.0)
[2024-10-02 10:56] LABS: Blood Urea Nitrogen 7 mg/dL (8-26); Carbon Dioxide 26 mmol/L (22-30); Chloride 103 mmol/L (98-109); Estimated Glomerular Filt Rate > 60; Glucose 113 mg/dL (70-105); Ionized Calcium (POC) 1.27 mmol/L (1.11-1.31); Potassium 3.9 mmol/L (3.5-4.9); Sodium 140 mmol/L (138-146)
--- OUTSIDE RECORDS SUMMARY | 2024-10-02 11:03 | XMS_ITS | Encounter Summary ---
Author Organization [facility] Address [address] [place] [address] Phone Care Team Providers Care Glue Jointer Feeder Name Role Phone Krishna Medina MD Unavailable [phone] Luigi Nicole Primary Care Provider Lina Yates NP Unavailable [phone] Yogesh Corbett DO Primary Care Provider [phone] Abrahan Mcgee MD Primary Care Provider [phone] Encounter Details Date Type Department Care Team (Late st Contact Info) Description 02/05/2022 Telephone [facility] Surgery [address] [facility] 5th [place] [address] [place] [address] Akila Toussaint Social History Tobacco [...] on file Legal 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:42 PM PV INSTALLER TECH Gender Identity Not on file Sexual Orientation Not on file documented as of this encounter Plan of Treatment Not on file documented as of this encounter Visit Diagnoses Not on filedocumented in this encounter Care Teams Glue Jointer Feeder Relationship Specialty Start Date End Date Luigi Nicole PA [address] [place] [address] [address] [place] [address] PCP - General Physician Spiral Machine Operator 04/09/21 12/01/23 Yogesh Corbett DO [address] [place] [address] PCP - General Internal Medicine 12/02/23 06/05/24 Abrahan Mcgee MD [address] [place] [address] PCP - General Family Medicine 06/06/24 Krishna Medina MD [address] [address] 03/17/19 Lina Yates NP [address] [place] [address] [address] [place] [address] Nurse Practitioner 11/12/22 documented as of this encounter
--- OUTSIDE RECORDS SUMMARY | 2024-10-02 11:03 | XMS_ITS | Encounter Summary ---
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 Female 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 Gender Identity Not on file Sexual Orientation Not on file documented as of this encounter Plan of Treatment Upcoming Encounters Date Type Department Care Team (Late st Contact Info) Description 10/02/2024 11:45 AM CDT Office Visit [facility] Oncology and Hematology - [place] [address] [place] [address] [address] [place] [address] [place] [address] [place] [address] [address] [place] [address] Arrived documented as of this encounter Visit Diagnoses Not on filedocumented in this encounter Care Teams Co Founder And President Relationship Specialty Start Date End Date Abrahan Mcgee MD [address] [place] [address] PCP - General Family Practice 04/03/24 documented as of this encounter
--- OUTSIDE RECORDS SUMMARY | 2024-10-02 11:03 | XMS_ITS | Encounter Summary ---
Author Organization [facility] Address [address] [facility] Attn: Epic Prelude ADT FRIDA SPARROW [address] Care Team Providers Care Magazine Filler Name Role Phone Abrahan Mcgee MD Primary Care Provider [phone] Encounter Details Date Type Department Care Team (Late st Contact Info) Description 07/31/1991 Outpatient Historical Andre Ernst MD NO ADDRESS ON FILE Social History Tobacco Use Types Packs/Day Years Used Date Smoking Tobacco: Never Assessed Comments Unknown Sex and Gender Information Value Date Recorded Sex Assigned at Not on file Legal Sex Female 3:33 AM OUTSEWER Gender Identity Not on file Sexual Orientation Not on file documented as of this encounter Plan of Treatment Upcoming Encounters Date Type Department Care Team (Late st Contact Info) Description 10/02/2024 11:45 AM CDT Office Visit [facility] Oncology and Hematology - [place] [address] [place] [address] [address] [place] [address] Prince Mir MD [address] [facility] [address] [place] [address] Arrived documented as of this encounter Visit Diagnoses Not on filedocumented in this encounter Care Teams Magazine Filler Relationship Specialty Start Date End Date Abrahan Mcgee MD [address] [place] [address] PCP - General Family Practice 04/03/24 documented as of this encounter
--- OUTSIDE RECORDS SUMMARY | 2024-10-02 11:03 | XMS_ITS | Encounter Summary ---
Author Organization [facility] Address [address] [place] [address] Care Team Providers Care Veterinary Radiologist Name Role Phone Krishna Medina MD Primary Care Provider [phone] Krishna Medina MD Unavailable [phone] Reason for Visit * Diagnostic Imaging (Routine) - Closed Specialty Diagnoses / Procedures Referred By Contac t Referred To Contact Procedures Breast Imaging Screening Outside Reference Aft, Sweta Gleason MD PhD [address] [place] [address] Phone: tel: fax: Referral ID Status Reason Start Date Expiration Date Visits Re quested Visits Authorized [id number] Closed 01/19/2022 02/18/2023 1 1 Encounter Details Date Type Department Care Team (Late st Contact Info) Description 09/25/2019 Hospital Encounter [facility] [address] [place] [id number] Social History Tobacco Use Types Packs/Day Years [...] on file Legal 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:42 PM LOAN SERVICE OFFICER Gender Identity Not on file Sexual [...] CDT) Impressions [facility] - 01/19/2022 11:03 AM LOAN SERVICE OFFICER These images are for Reference purposes only and have not been reviewed by [facility]. There will be no report generated by a [facility] Radiologist. Narrative [facility] - 01/19/2022 11:03 AM LOAN SERVICE OFFICER EXAMINATION: Images For Reference Purposes Only us Sweta Conteh MD PhD IMG MAMMO PROCEDURES Final Result [facility] documented in this encounter Visit Diagnoses Not on filedocumented in this encounter Care Teams Veterinary Radiologist Relationship Specialty Start Date End Date Krishna Medina MD [address] [address] PCP - General 03/17/19 04/08/21 Krishna Medina MD [address] [address] 03/17/19 documented as of this encounter
--- OUTSIDE RECORDS SUMMARY | 2024-10-02 11:03 | XMS_ITS | Encounter Summary ---
Author Organization [facility] Address [address] [facility] Attn: Epic Prelude ADT FRIDA SPARROW [address] Care Team Providers Care Developmental Services Worker Name Role Phone Abrahan Mcgee MD Primary Care Provider [phone] Encounter Details Date Type Department Care Team (Late st Contact Info) Description 07/08/1992 Outpatient Historical Andre Ernst MD NO ADDRESS ON FILE Social History Tobacco Use Types Packs/Day Years Used Date Smoking Tobacco: Never Assessed Comments Unknown Sex and Gender Information Value Date Recorded Sex Assigned at Not on file Legal Sex Female 3:33 AM HEAD SCORER Gender Identity Not on file Sexual Orientation Not on file documented as of this encounter Plan of Treatment Upcoming Encounters Date Type Department Care Team (Late st Contact Info) Description 10/02/2024 11:45 AM CDT Office Visit [facility] Oncology and Hematology - [place] [address] [place] [address] [address] [place] [address] [place] [address] [place] [address] [address] [place] [address] Arrived documented as of this encounter Visit Diagnoses Not on filedocumented in this encounter Care Teams Developmental Services Worker Relationship Specialty Start Date End Date Abrahan Mcgee MD [address] [place] [address] PCP - General Family Practice 04/03/24 documented as of this encounter
--- OUTSIDE RECORDS SUMMARY | 2024-10-02 11:03 | XMS_ITS | Encounter Summary ---
Author Organization [facility] Address [address] [facility] Attn: Epic Prelude ADT FRIDA SPARROW [address] Care Team Providers Care Plastics Engineering Teacher Name Role Phone Abrahan Mcgee MD Primary Care Provider [phone] Encounter Details Date Type Department Care Team (Late st Contact Info) Description 05/19/1993 Outpatient Historical Andre Ernst MD NO ADDRESS ON FILE Social History Tobacco Use Types Packs/Day Years Used Date Smoking Tobacco: Never Assessed Comments Unknown Sex and Gender Information Value Date Recorded Sex Assigned at Not on file Legal Sex Female 3:33 AM 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 Gender Identity Not on file Sexual Orientation Not on file documented as of this encounter Plan of Treatment Upcoming Encounters Date Type Department Care Team (Late st Contact Info) Description 10/02/2024 11:45 AM CDT Office Visit [facility] Oncology and Hematology - [place] [address] [place] [address] [address] [place] [address] [place] [address] [place] [address] [address] [place] [address] Arrived documented as of this encounter Visit Diagnoses Not on filedocumented in this encounter Care Teams Plastics Engineering Teacher Relationship Specialty Start Date End Date Abrahan Mcgee MD [address] [place] [address] PCP - General Family Practice 04/03/24 documented as of this encounter
--- OUTSIDE RECORDS SUMMARY | 2024-10-02 11:03 | XMS_ITS | Clinical Summary ---
Author Organization [facility] Address [address] [place] [address] Phone Care Team Providers Care Manager Mutual Fund Name Role Phone Abrahan Mcgee MD Primary [...] 9 Active fluticasone propionate (FLONASE) 50 mcg/spray [place], Suspension nasal inhaler Administer 2 Sprays [...] STL ABSTRACTION Provider, Abstract 08/09/2024 Orders Only [facility] Oncology and Hematology - [place] [address] [place] [address] Prince Mir MD 07/20/2024 External Device Data [...] file Legal Sex Female 3:33 AM ADVERTISING REP Gender Identity Not on file Sexual Orientation Not on file Last Filed Vital Signs Vital Sign Reading Time Taken Comments Blood Pressure 132/71 04/03/2024 2:30 PM ADVERTISING REP Pulse 69 04/03/2024 2:30 PM ADVERTISING REP Temperature 36.1 C (97 F) 04/03/2024 2:30 PM ADVERTISING REP Respiratory Rate 14 04/03/2024 2:30 PM ADVERTISING REP Oxygen Saturation 96% 04/03/2024 2:30 PM ADVERTISING REP Inhaled Oxygen Concentration - - Weight 53.1 kg (117 lb) 04/03/2024 2:30 PM ADVERTISING REP Height 149.9 cm (4' 11) 12/09/2022 2:04 PM CDT Body Mass Index 23.63 12/09/2022 2:04 PM CDT Plan of Treatment Upcoming Encounters Date Type Department Care Team (Late st Contact Info) Description 10/02/2024 11:45 AM CDT Office Visit [facility] Oncology and Hematology [facility] [address] [facility] [address] [place] [address] Prince Mir MD [address] [facility] [address] [place] [address] Arrived Health Maintenance Due Date Last Done Comments DTAP/TDAP/TD VACCINES (1 - Tdap) 10/12/1954 ZOSTER VACCINE (1 of 2) 10/12/1985 OSTEOPOROSIS SCREENING 10/12/2000 RSV VACCINE (60+ or ) (1 - 1-dose 75+ series) 10/12/2010 Medicare [place] ([place]) Prev entative Visit/Annual Wellness Visit 03/01/2024 INFLUENZA VACCINE (#1) 2024 01/20/2019, 2013 PNEUMOCOCCAL VACCINE 50+ YEARS Completed 12/16/2018 , 10/10/2014 Procedures Procedure Name Priority Date/Time Associated Diagnosis Comments MAMMO SCREENING BILAT Routine 08/08/2024 9:58 AM CDT from Last 3 Months Results * MAMMO SCREENING BILAT (08/08/2024 9:58 AM CDT) Anatomical Region Laterality Modality Breast Bilateral Mammography Prince Mir MD MAMMO ORDERABLES Final Result from Last 3 Months [facility] Care Teams Manager Mutual Fund Relationship Specialty Start Date End Date Abrahan Mcgee MD [address] [place] [address] PCP - General Family Practice 04/03/24
--- OUTSIDE RECORDS SUMMARY | 2024-10-02 11:03 | XMS_ITS | Encounter Summary ---
Author Organization [facility] Address [address] [facility] [place] [address] Care Team Providers Care Faculty Administrator Name Role Phone Abrahan Mcgee MD Primary Care Provider [phone] Encounter Details Date Type Department Care Team (Late st Contact Info) Description 08/13/2021 Lab Requisition [facility] [address] [place] [address] Jose G Llamas MD [address] [place] [address] Social History Tobacco Use Types Packs/Day Years Used Date Smoking Tobacco: Never Assessed Comments Unknown Sex and Gender Information Value Date Recorded Sex Assigned at Not on file Legal Sex Female 6:23 PM PROP SAWYER Gender Identity Not on file Sexual Orientation Not on file documented as of this encounter Plan of Treatment Not on file documented as of this encounter Procedures Procedure Name Priority Date/Time Associated Diagnosis Comments DERMATOPATHOLOGY Routine 08/12/2021 12:0 0 AM CDT documented in this encounter Results * DERMATOPATHOLOGY (08/12/2021 12:00 AM CDT) Case Report Dermatopathology Report Case: [id number] Authorizing Provider: Jose G Llamas MD Collected: 08/12/2021 12:00 AM Ordering Location: [facility] Received: 08/13/2021 10:45 AM Pathologist: [...] specimen consists of a shave biopsy measuring 0m4s0lo. Jar 0. 2 10:59 AM CDT DERMATOPATHOLOGY [...] characteristic determined by the Dermatopathology Laboratory at [facility], directed by Dr. Troy Mckeon. These tests need not be, and therefore are not, approved by the [place] Food and Drug Administration. The tests are used for clinical purposes. Billing Codes Specimen Charges Stain Charges 42682 1 2 10:59 AM CDT DERMATOPATHOLOGY LABORATORY Embedded Images 2 10:59 AM CDT DERMATOPATHOLOGY LABORATORY Pathology/Cytolog y TISSUE SPECIMEN FROM SKIN / Unknown 08/12/2021 08/13/2021 10:45 AM CDT us Jose G Llamas MD LAB - PATHOLOGY/CYTOLOGY ORD ERABLES Final Result DERMATOPATHOLOGY LABORATORY [facility] - Department of Dermatology [address], [address] [phone] documented in this encounter Visit Diagnoses Not on filedocumented in this encounter Care Teams Faculty Administrator Relationship Specialty Start Date End Date Abrahan Mcgee MD [address] [place] [address] PCP - General 07/23/09 documented as of this encounter
--- OUTSIDE RECORDS SUMMARY | 2024-10-02 11:03 | XMS_ITS | Encounter Summary ---
Author Organization [facility] Address [address] [facility] Attn: Epic Prelude ADT FRIDA SPARROW [address] Care Team Providers Care Professional Development Director Name Role Phone Abrahan Mcgee MD Primary Care Provider [phone] Encounter Details Date Type Department Care Team (Late st Contact Info) Description 05/10/1990 Outpatient Historical Andre Ernst MD NO ADDRESS ON FILE Social History Tobacco Use Types Packs/Day Years Used Date Smoking Tobacco: Never Assessed Comments Unknown Sex and Gender Information Value Date Recorded Sex Assigned at Not on file Legal Sex Female 3:33 AM MATERIALS ASSOCIATE Gender Identity Not on file Sexual Orientation Not on file documented as of this encounter Plan of Treatment Upcoming Encounters Date Type Department Care Team (Late st Contact Info) Description 10/02/2024 11:45 AM CDT Office Visit [facility] Oncology and Hematology - [place] [address] [place] [address] [address] [place] [address] [place] [address] [place] [address] [address] [place] [address] Arrived documented as of this encounter Visit Diagnoses Not on filedocumented in this encounter Care Teams Professional Development Director Relationship Specialty Start Date End Date Abrahan Mcgee MD [address] [place] [address] PCP - General Family Practice 04/03/24 documented as of this encounter
--- OUTSIDE RECORDS SUMMARY | 2024-10-02 11:03 | XMS_ITS | Encounter Summary ---
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 Female 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 Gender Identity Not on file Sexual Orientation Not on file documented as of this encounter Plan of Treatment Upcoming Encounters Date Type Department Care Team (Late st Contact Info) Description 10/02/2024 11:45 AM CDT Office Visit [facility] Oncology and Hematology - [place] [address] [place] [address] [address] [place] [address] [place] [address] [place] [address] [address] [place] [address] Arrived documented as of this encounter Visit Diagnoses Not on filedocumented in this encounter Care Teams Concierge Manager Relationship Specialty Start Date End Date Abrahan Mcgee MD [address] [place] [address] PCP - General Family Practice 04/03/24 documented as of this encounter
--- OUTSIDE RECORDS SUMMARY | 2024-10-02 11:03 | XMS_ITS | Clinical Summary ---
Author Organization [facility] Address [address] [place] [address] Care Team Providers Care Coarse Wire Drawer Name Role Phone Abrahan Mcgee MD Primary Care Provider [phone] Source Comments [facility] Affiliates and Associated Physician Practices is amultiple site organization consisting of ambulatory clinics and hospital sitesin [place], [place], [place] and [place]. This disclosure is being madepursuant to the Care Everywhere program and may not contain all information available regarding this patient. Last updated [email or web address] Social History Tobacco Use Types Packs/Day Years Used Date Smoking Tobacco: Never Assessed Comments Unknown Sex and Gender Information Value Date Recorded Sex Assigned at Not on file Legal Sex Female 6:23 PM GLASS SCULLION Gender Identity Not on file Sexual Orientation [...] patient's age to complete this topic Insurance [facility] MANAGED MEDICARE ADV AETNA MEDICARE ADV SELF PAY NO INSURANCE Member Subscriber Plan / Payer (Ef fective for All Dates) Name:Marshal Sanders Member ID:Not on file Relation to Subscriber:Not on file Name:Marshal SANDERS Subscriber ID:Not on file Address: [address] [place] [address] Payer ID:Not on file Group ID:Not on file Type:Self Pay Address: [place], [place] AETNA MEDICARE ADV SELF PAY NO INSURANCE Member Subscriber Plan / Payer (Ef fective for All Dates) Name:Marshal Sandesr Member ID:Not on file Relation to Subscriber:Not on file Name:Marshal SANDERS Subscriber ID:Not on file Address: [address] [place] [address] [place] [address] Payer ID:Not on file Group ID:Not on file Type:Self Pay Address: [place], [place] Care Teams Coarse Wire Drawer Relationship Specialty Start Date End Date Abrahan Mcgee MD [address] [place] [address] PCP - General 07/23/09
--- OUTSIDE RECORDS SUMMARY | 2024-10-02 11:04 | XMS_ITS | Encounter Summary ---
Author Organization [facility] Address 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 Gender Identity Not on file Sexual Orientation Not on file documented as of this encounter Plan of Treatment Upcoming Encounters Date Type Department Care Team (Late st Contact Info) Description 10/02/2024 11:45 AM CDT Office Visit [facility] Oncology and Hematology - [place] [address] [place] [address] [address] [place] [address] Prince Mir MD [address] [facility] [address] [place] [address] Arrived documented as of this encounter Visit Diagnoses Not on filedocumented in this encounter Care Teams Casing In Line Setter Relationship Specialty Start Date End Date Abrahan Mcgee MD [address] [place] [address] PCP - General Family Practice 04/03/24 documented as of this encounter
--- OUTSIDE RECORDS SUMMARY | 2024-10-02 11:04 | XMS_ITS | Encounter Summary ---
Author Organization [facility] Address [address] [facility] Attn: Epic Prelude ADT FRIDA SPARROW [address] Care Team Providers Care Bush And Vine Farmer Fruit Crops Name Role Phone Abrahan Mcgee MD Primary Care Provider [phone] Encounter Details Date Type Department Care Team (Late st Contact Info) Description 10/05/1994 Outpatient Historical Andre Ernst MD NO ADDRESS ON FILE Social History Tobacco Use Types Packs/Day Years Used Date Smoking Tobacco: Never Assessed Comments Unknown Sex and Gender Information Value Date Recorded Sex Assigned at Not on file Legal Sex Female 3:33 AM 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 Gender Identity Not on file Sexual Orientation Not on file documented as of this encounter Plan of Treatment Upcoming Encounters Date Type Department Care Team (Late st Contact Info) Description 10/02/2024 11:45 AM CDT [facility] Oncology and Hematology - [place] [address] [place] [address] [address] [place] [address] [place] [address] [place] [address] [address] [place] [address] Arrived documented as of this encounter Visit Diagnoses Not on filedocumented in this encounter Care Teams Bush And Vine Farmer Fruit Crops Relationship Specialty Start Date End Date Abrahan Mcgee MD [address] [place] [address] PCP - General Family Practice 04/03/24 documented as of this encounter
--- OUTSIDE RECORDS SUMMARY | 2024-10-02 11:04 | XMS_ITS | Encounter Summary ---
Author Organization [facility] Healthcare Address [address] [place] [address] Care Team Providers Care Home Organizer Name Role Phone Krishna Medina MD Primary Care Provider [phone] Reason for Visit * Diagnostic Imaging (Routine) - Closed Specialty Diagnoses / Procedures Referred By Contac t Referred To Contact Procedures Breast Imaging Screening Outside Reference Aft, Sweta Gleason MD PhD [address] [place] [address] Phone: tel: fax: Referral ID Status Reason Start Date Expiration Date Visits Re quested Visits Authorized [id number] Closed 01/19/2022 02/18/2023 1 1 Encounter Details Date Type Department Care Team (Late st Contact Info) Description 08/26/2018 Hospital Encounter [facility]iology [facility] [address] [place], [place] [id number] Social History Tobacco Use Types Packs/Day Years [...] on file Legal 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:42 PM POST TENSIONING IRONWORKER Gender Identity Not on file Sexual [...] CDT) Impressions [facility]MO[facility] - 01/19/2022 11:04 AM POST TENSIONING IRONWORKER These images are for Reference purposes only and have not been reviewed by [facility] Radiology. There will be no report generated by a [facility] Radiologist. Narrative [facility]_MAMMO[facility] - 01/19/2022 11:04 AM POST TENSIONING IRONWORKER EXAMINATION: Images For Reference Purposes Only us Sweta Conteh MD PhD IMG MAMMO PROCEDURES Final Result [facility] documented in this encounter Visit Diagnoses Not on filedocumented in this encounter Care Teams Home Organizer Relationship Specialty Start Date End Date Krishna Medina MD [address] [address] PCP - General 10/15/16 03/16/19 documented as of this encounter
--- OUTSIDE RECORDS SUMMARY | 2024-10-02 11:04 | XMS_ITS | Encounter Summary ---
Author Organization [facility] Address [address] [place] [address] Care Team Providers Care Color Weigher Name Role Phone Abrahan Mcgee MD Primary Care Provider [phone] Encounter Details Date Type Department Care Team (Latest Contact Info) Description 11/19/2003 Outpatient Historical HIS [facility] ЕКАТЕРИНА Ernst, Andre Guardado MD NO ADDRESS ON FILE HYPOPOTASSEMIA (Primary Dx) Social History Tobacco Use Types Packs/Day Years Used Date Smoking Tobacco: Never Assessed Comments Unknown Sex and Gender Information Value Date Recorded Sex Assigned at Not on file Legal Sex Female 3:33 AM CARTON STAMPER Gender Identity Not on file Sexual Orientation Not on file documented as of this encounter Plan of Treatment Upcoming Encounters Date Type Department Care Team (Late st Contact Info) Description 10/02/2024 11:45 AM CDT Office Visit [facility] Oncology and Hematology - [place] [address] [facility] [address] [place] [address] Prince Mir MD [address] [facility] [address] [place] [address] Arrived documented as of this encounter Visit Diagnoses Diagnosis Hypopotassemia- Primary documented in this encounter Care Teams Color Weigher Relationship Specialty Start Date End Date Abrahan Mcgee MD [address] [place] [address] PCP - General Family Practice 04/03/24 documented as of this encounter
--- OUTSIDE RECORDS SUMMARY | 2024-10-02 11:04 | XMS_ITS | Encounter Summary ---
Author Organization [facility] Address 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 Gender Identity Not on file Sexual Orientation Not on file documented as of this encounter Plan of Treatment Upcoming Encounters Date Type Department Care Team (Late st Contact Info) Description 10/02/2024 11:45 AM CDT Office Visit [facility] Oncology and Hematology - [place] [address] [facility] [address] [place] [address] Prince Mir MD [address] [facility] [address] [place] [address] Arrived documented as of this encounter Visit Diagnoses Diagnosis Essential hypertension, benign- Primary documented in this encounter Care Teams Glue Mounter Operator Relationship Specialty Start Date End Date Abrahan Mcgee MD [address] [place] [address] PCP - General Family Practice 04/03/24 documented as of this encounter
--- OUTSIDE RECORDS SUMMARY | 2024-10-02 11:04 | XMS_ITS | Encounter Summary ---
Author Organization [facility] Healthcare Address [address] [place] [address] Care Team Providers Care Blend Plant Operator Name Role Phone Krishna Medina MD Primary Care Provider [phone] Reason for Visit * Diagnostic Imaging (Routine) - Closed Specialty Diagnoses / Procedures Referred By Contac t Referred To Contact Procedures Breast Imaging Screening Outside Reference Aft, Sweta Gleason MD PhD [address] [place] [address] Phone: tel: fax: Referral ID Status Reason Start Date Expiration Date Visits Re quested Visits Authorized [id number] Closed 01/19/2022 02/18/2023 1 1 Encounter Details Date Type Department Care Team (Late st Contact Info) Description 07/23/2017 Hospital Encounter [facility] Radiology [facility] [address] [place], [place] [id number] Social History Tobacco Use Types Packs/Day Years [...] on file Legal 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:42 PM PONDMAN Gender Identity Not on file Sexual Orientation [...] CDT) Impressions [facility]MO[facility] - 01/19/2022 10:55 AM PONDMAN These images are for Reference purposes only and have not been reviewed by [facility] Radiology. There will be no report generated by a [facility] Radiologist. Narrative RAD_MAMMO[facility] - 01/19/2022 10:55 AM PONDMAN EXAMINATION: Images For Reference Purposes Only us Sweta Conteh MD PhD IMG MAMMO PROCEDURES Final Result [facility] documented in this encounter Visit Diagnoses Not on filedocumented in this encounter Care Teams Blend Plant Operator Relationship Specialty Start Date End Date Krishna Medina MD [address] [address] PCP - General 10/15/16 03/16/19 documented as of this encounter
--- OUTSIDE RECORDS SUMMARY | 2024-10-02 11:04 | XMS_ITS | Encounter Summary ---
Author Organization [facility] Address [address] [place] [address] Care Team Providers Care Federal Mediation Commissioner Name Role Phone Abrahan Mcgee MD Primary Care Provider [phone] Encounter Details Date Type Department Care Team (Latest Contact Info) Description 08/15/2002 Outpatient Historical HIS [facility] ЕКАТЕРИНА Ernst, Andre Guardado MD NO ADDRESS ON FILE JOINT PAIN-L/LEG (Primary Dx) Social History Tobacco Use Types Packs/Day Years Used Date Smoking Tobacco: Never Assessed Comments Unknown Sex and Gender Information Value Date Recorded Sex Assigned at Not on file Legal Sex Female 3:33 AM DIRECTOR OF CARDIOLOGY SERVICE LINE Gender Identity Not on file Sexual Orientation Not on file documented as of this encounter Plan of Treatment Upcoming Encounters Date Type Department Care Team (Late st Contact Info) Description 10/02/2024 11:45 AM CDT Office Visit [facility] Oncology and Hematology - [place] [address] [facility] [address] [place] [address] Prince Mir MD [address] [place] [address] [address] [place] [address] Arrived documented as of this encounter Visit Diagnoses Diagnosis Pain in joint, lower leg- Primary documented in this encounter Care Teams Federal Mediation Commissioner Relationship Specialty Start Date End Date Abrahan Mcgee MD [address] [place] [address] PCP - General Family Practice 04/03/24 documented as of this encounter
--- OUTSIDE RECORDS SUMMARY | 2024-10-02 11:04 | XMS_ITS | Encounter Summary ---
Author Organization [facility] Address [address] [place] [address] Care Team Providers Care Financial Systems Analyst Name Role Phone Abrahan Mcgee MD [...] on file Legal Sex Female 3:33 AM CRTTS Gender Identity Not on file Sexual Orientation Not on file documented as of this encounter Plan of Treatment Upcoming Encounters Date Type Department Care Team (Late st Contact Info) Description 10/02/2024 11:45 AM CDT Office Visit [facility] Oncology and Hematology - [place] [address] [place] [address] [address] [place] [address] Prince Mir MD [address] [facility] [address] [place] [address] Arrived documented as of this encounter Visit Diagnoses Not on filedocumented in this encounter Care Teams Financial Systems Analyst Relationship Specialty Start Date End Date Abrahan Mcgee MD [address] [place] [address] PCP - General Family Practice 04/03/24 documented as of this encounter
--- OUTSIDE RECORDS SUMMARY | 2024-10-02 11:04 | XMS_ITS | Encounter Summary ---
Author Organization [facility] Address [address] [place] [address] Care Team Providers Care Mold Release Worker Name Role Phone Abrahan Mcgee MD Primary Care Provider [phone] Encounter Details Date Type Department Care Team (Latest Contact Info) Description 03/16/2002 Outpatient Historical HIS [facility] ЕКАТЕРИНА Ernst, Andre Guardado MD NO ADDRESS ON FILE BENIGN HYPERTENSION (Primary Dx) Social History Tobacco Use Types Packs/Day Years Used Date Smoking Tobacco: Never Assessed Comments Unknown Sex and Gender Information Value Date Recorded Sex Assigned at Not on file Legal Sex Female 3:33 AM QUOTATION CHECKER Gender Identity Not on file Sexual Orientation Not on file documented as of this encounter Plan of Treatment Upcoming Encounters Date Type Department Care Team (Late st Contact Info) Description 10/02/2024 11:45 AM CDT Office Visit [facility] Oncology and Hematology - [place] [address] [facility] [address] [place] [address] [place] [address] [place] [address] [address] [place] [address] Arrived documented as of this encounter Visit Diagnoses Diagnosis Essential hypertension, benign- Primary documented in this encounter Care Teams Mold Release Worker Relationship Specialty Start Date End Date Abrahan Mcgee MD [address] [place] [address] PCP - General Family Practice 04/03/24 documented as of this encounter
--- OUTSIDE RECORDS SUMMARY | 2024-10-02 11:04 | XMS_ITS | Encounter Summary ---
Author Organization [facility] Address [address] [place] [address] Care Team Providers Care Audit Officer Name Role Phone Abrahan Mcgee MD Primary Care Provider Encounter Details Date Type Department Care Team (Late st Contact Info) Description 10/29/2000 Outpatient Historical HIS [facility] Andre Ernst MD NO ADDRESS ON FILE Social History Tobacco Use Types Packs/Day Years Used Date Smoking Tobacco: Never Assessed Comments Unknown Sex and Gender Information Value Date Recorded Sex Assigned at Not on file Legal Sex Female 3:33 AM BIRD RAISER Gender Identity Not on file Sexual Orientation Not on file documented as of this encounter Plan of Treatment Upcoming Encounters Date Type Department Care Team (Late st Contact Info) Description 10/02/2024 11:45 AM CDT Office Visit [facility] Oncology and Hematology - [place] [address] [place] [address] [address] [place] [address] Prince Mir MD [address] [facility] [address] [place] [address] Arrived documented as of this encounter Visit Diagnoses Not on filedocumented in this encounter Care Teams Audit Officer Relationship Specialty Start Date End Date Abrahan Mcgee MD [address] [place] [address] PCP - General Family Practice 04/03/24 documented as of this encounter
--- OUTSIDE RECORDS SUMMARY | 2024-10-02 11:04 | XMS_ITS | Encounter Summary ---
Author Organization [facility] Address [address] [place] [address] Care Team Providers Care Ux Information Architect Name Role Phone Abrahan Mcgee MD Primary Care Provider [phone] Encounter Details Date Type Department Care Team (Late st Contact Info) Description 10/29/2000 Outpatient Historical HIS [facility] Andre Ernst MD NO ADDRESS ON FILE Social History Tobacco Use Types Packs/Day Years Used Date Smoking Tobacco: Never Assessed Comments Unknown Sex and Gender Information Value Date Recorded Sex Assigned at Not on file Legal Sex Female 3:33 AM THREAD TRIMMER Gender Identity Not on file Sexual Orientation Not on file documented as of this encounter Plan of Treatment Upcoming Encounters Date Type Department Care Team (Late st Contact Info) Description 10/02/2024 11:45 AM CDT Office Visit [facility] Oncology and Hematology - [place] [address] [place] [address] [address] [place] [address] Prince Mir MD [address] [facility] [address] [place] [address] Arrived documented as of this encounter Visit Diagnoses Not on filedocumented in this encounter Care Teams Ux Information Architect Relationship Specialty Start Date End Date Abrahan Mcgee MD [address] [place] [place] [address] PCP - General Family Practice 04/03/24 documented as of this encounter
--- OUTSIDE RECORDS SUMMARY | 2024-10-02 11:04 | XMS_ITS | Clinical Summary ---
Author Organization [facility] Address [address] [place] [address] Care Team Providers Care Actuarial Associate Name Role Phone Krishna Medina MD Unavailable [phone] Lina Yates NP Unavailable [phone] Abrahan Mcgee MD Primary Care Provider Allergies [...] 2021 Assessment & Plan (02/02/2022 4:10 PM LOGISTICS INTERN): Well healed. Removed BCL today without complications. [...] 04/28/2019 Assessment & Plan (04/28/2019 12:28 PM LOGISTICS INTERN): Monitor. Discussed signs and symptoms of Retinal tears or detachments. Pt understands to call immediately if noted. Subjective vision disturbance 04/28/2019 Assessment & Plan (04/28/2019 12:29 PM LOGISTICS INTERN): Seeing pink dots No hemorrhages or retinal [...] changes. Assessment & Plan (04/28/2019 12:27 PM LOGISTICS INTERN): Monitor closely Retinal hole of left eye [...] Description 09/15/2024 2:45 PM CDT Office Visit [facility] LASIK [facility] [place] ([facility]) [address] [facility] [address], [address] [place] [address] Joshua Chan, OD Foreign body of left conjunctiva, initial encounter (Primary Dx); Intermediate stage nonexudative age-related macular degeneration of both eyes 09/15/[address] [facility] Ophthalmology [facility] [place] [address] Joshua Chan, OD Same day [...] on file Legal 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:42 PM LOGISTICS INTERN Gender Identity Not on file Sexual [...] Completed 019, 11/29/2016, 10/10/2014 Insurance [employer] MEDICARE [facility] MEDICARE [facility] MEDICARE Advance Directives For more information, please contact: [phone] * Full Code (Latest Code Status on File) Date Activated Date Inactivated Comments 11/10/2021 10:25 AM 11/10/2021 3:44 PM * Full Code Date Activated Date Inactivated Comments 09/06/2019 9:17 AM 09/06/2019 3:17 PM * Full Code Date Activated Date Inactivated Comments 07/11/2018 9:22 AM 07/11/2018 4:10 PM Care Teams Actuarial Associate Relationship Specialty Start Date End Date Abrahan Mcgee MD [address] [place] [address] PCP - General Family Medicine 06/06/24 Krishna Medina MD [address] [facility] [address] [place] [address] 03/17/19 Lina Yates NP [address] [address] Nurse Practitioner 11/12/22
--- OUTSIDE RECORDS SUMMARY | 2024-10-02 11:04 | XMS_ITS | Encounter Summary ---
Author Organization [facility] Healthcare Address [address] [place] [address] Care Team Providers Care Technical Staff Assistant Name Role Phone Abrahan Mcgee MD Primary Care Provider [phone] Reason for Visit * Diagnostic Imaging (Routine) - Closed Specialty Diagnoses / Procedures Referred By Contac t Referred To Contact Procedures Breast Imaging Diagnostic Outside Reference Aft, Sweta Gleason [place] PhD [address] [place] [address] Phone: tel: fax: Referral ID Status Reason Start Date Expiration Date Visits Re quested Visits Authorized [id number] Closed 01/19/2022 02/18/2023 1 1 Encounter Details Date Type Department Care Team (Late st Contact Info) Description 07/21/[address] [facility] Radiology [facility] [address] [place] [id number] Social History Tobacco Use Types Packs/Day Years [...] on file Legal 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:42 PM TOP PRECIPITATOR OPERATOR Gender Identity Not on file Sexual [...] CDT) Impressions RAD_M[facility]MO[facility] - 01/19/2022 10:56 AM TOP PRECIPITATOR OPERATOR These images are for Reference purposes only and have not been reviewed by [facility] Radiology. There will be no report generated by a [facility] Radiologist. Narrative RAD_MAMMO[facility] - 01/19/2022 10:56 AM TOP PRECIPITATOR OPERATOR EXAMINATION: Images For Reference Purposes Only us Sweta Conteh MD PhD IMG MAMMO PROCEDURES Final Result [facility]_M[facility]MO[facility] documented in this encounter Visit Diagnoses Not on filedocumented in this encounter Care Teams Technical Staff Assistant Relationship Specialty Start Date End Date Abrahan Mcgee MD PCP - General 10/06/11 09/09/16 documented as of this encounter
--- OUTSIDE RECORDS SUMMARY | 2024-10-02 11:04 | XMS_ITS | Encounter Summary ---
Author Organization [facility] Address [address] [place] [address] Care Team Providers Care Vice President Sales And Marketing Name Role Phone Abrahan Mcgee MD Primary Care Provider Encounter Details Date Type Department Care Team (Late st Contact Info) Description 11/04/2001 Outpatient Historical HIS [facility] Andre Ernst MD NO ADDRESS ON FILE Social History Tobacco Use Types Packs/Day Years Used Date Smoking Tobacco: Never Assessed Comments Unknown Sex and Gender Information Value Date Recorded Sex Assigned at Not on file Legal Sex Female 3:33 AM ACETALDEHYDE CONVERTER OPERATOR Gender Identity Not on file Sexual Orientation Not on file documented as of this encounter Plan of Treatment Upcoming Encounters Date Type Department Care Team (Late st Contact Info) Description 10/02/2024 11:45 AM CDT Office Visit [facility] Oncology and Hematology - [place] [address] [place] [address] [address] [place] [address] Prince Mir MD [address] [facility] [address] [place] [address] Arrived documented as of this encounter Visit Diagnoses Not on filedocumented in this encounter Care Teams Vice President Sales And Marketing Relationship Specialty Start Date End Date Abrahan Mcgee MD [address] [place] [address] PCP - General Family Practice 04/03/24 documented as of this encounter
--- OUTSIDE RECORDS SUMMARY | 2024-10-02 11:04 | XMS_ITS | Encounter Summary ---
Author Organization [facility] Address [address] [place] [address] Care Team Providers Care Patient Account Specialist Name Role Phone Abrahan Mcgee MD Primary Care Provider [phone] Encounter Details Date Type Department Care Team (Latest Contact Info) Description 06/05/2004 Outpatient Historical HIS [facility] ЕКАТЕРИНА Ernst, Andre Guardado MD NO ADDRESS ON FILE BENIGN HYPERTENSION (Primary Dx) Social History Tobacco Use Types Packs/Day Years Used Date Smoking Tobacco: Never Assessed Comments Unknown Sex and Gender Information Value Date Recorded Sex Assigned at Not on file Legal Sex Female 3:33 AM WIDE LOAD ESCORT Gender Identity Not on file Sexual Orientation Not on file documented as of this encounter Plan of Treatment Upcoming Encounters Date Type Department Care Team (Late st Contact Info) Description 10/02/2024 11:45 AM CDT Office Visit [facility] Oncology and Hematology - [place] [address] [facility] [address] [place] [address] Prince Mir MD [address] [facility] [address] [place] [address] Arrived documented as of this encounter Procedures Procedure [...] documented in this encounter Care Teams Patient Account Specialist Relationship Specialty Start Date End Date Abrahan Mcgee MD [address] [place] [address] PCP - General Family Practice 04/03/24 documented as of this encounter
--- OUTSIDE RECORDS SUMMARY | 2024-10-02 11:04 | XMS_ITS | Encounter Summary ---
Author Organization [facility] Address [address] [place] [address] Care Team Providers Care Registered Land Surveyor Name Role Phone Abrahan Mcgee MD Primary Care Provider [phone] Encounter Details Date Type Department Care Team (Latest Contact Info) Description 02/24/2002 Outpatient Historical HIS [facility] ЕКАТЕРИНА Ernst, Andre Guardado MD NO ADDRESS ON FILE CHRONIC SINUSITIS NOS (Primary Dx) Social History Tobacco Use Types Packs/Day Years Used Date Smoking Tobacco: Never Assessed Comments Unknown Sex and Gender Information Value Date Recorded Sex Assigned at Not on file Legal Sex Female 3:33 AM CAREER RESOURCE TECHNICIAN Gender Identity Not on file Sexual Orientation Not on file documented as of this encounter Plan of Treatment Upcoming Encounters Date Type Department Care Team (Late st Contact Info) Description 10/02/2024 11:45 AM CDT Office Visit [facility] Oncology and Hematology - [place] [address] [facility] [address] [place] [address] Prince Mir MD [address] [facility] [address] [place] [address] Arrived documented as of this encounter Visit Diagnoses Diagnosis Unspecified sinusitis (chronic)- Primary documented in this encounter Care Teams Registered Land Surveyor Relationship Specialty Start Date End Date Abrahan Mcgee MD [address] [place] [address] PCP - General Family Practice 04/03/24 documented as of this encounter
--- OUTSIDE RECORDS SUMMARY | 2024-10-02 11:04 | XMS_ITS | Encounter Summary ---
Author Organization [facility] Address [address] [facility] Attn: Epic Prelude ADT [place] [address] Care Team Providers Care Professor In Family Studies Name Role Phone Abrahan Mcgee MD Primary Care Provider [phone] Encounter Details Date Type Department Care Team (Late st Contact Info) Description 08/08/1993 Outpatient Historical Andre Ernst MD NO ADDRESS ON FILE Social History Tobacco Use Types Packs/Day Years Used Date Smoking Tobacco: Never Assessed Comments Unknown Sex and Gender Information Value Date Recorded Sex Assigned at Not on file Legal Sex Female 3:33 AM GEAR FINISHER Gender Identity Not on file Sexual Orientation Not on file documented as of this encounter Plan of Treatment Upcoming Encounters Date Type Department Care Team (Late st Contact Info) Description 10/02/2024 11:45 AM CDT Office Visit [facility] Oncology and Hematology - [place] [address] [place] [address] [address] [place] [address] Prince Mir MD [address] [facility] [address] [place] [address] Arrived documented as of this encounter Visit Diagnoses Not on filedocumented in this encounter Care Teams Professor In Family Studies Relationship Specialty Start Date End Date Abrahan Mcgee MD [address] [place] [address] PCP - General Family Practice 04/03/24 documented as of this encounter
--- OUTSIDE RECORDS SUMMARY | 2024-10-02 11:04 | XMS_ITS | Encounter Summary ---
Author Organization [facility] Address [address] [place] [address] Care Team Providers Care Brazer Furnace Name Role Phone Abrahan Mcgee MD Primary Care Provider [phone] Encounter Details Date Type Department Care Team (Latest Contact Info) Description 03/06/2004 Outpatient Historical HIS [facility] ЕКАТЕРИНА Ernst, Andre Guardado MD NO ADDRESS ON FILE HYPOPOTASSEMIA (Primary Dx) Social History Tobacco Use Types Packs/Day Years Used Date Smoking Tobacco: Never Assessed Comments Unknown Sex and Gender Information Value Date Recorded Sex Assigned at Not on file Legal Sex Female 3:33 AM MATHEMATICAL ENGINEER Gender Identity Not on file Sexual Orientation Not on file documented as of this encounter Plan of Treatment Upcoming Encounters Date Type Department Care Team (Late st Contact Info) Description 10/02/2024 11:45 AM CDT Office Visit [facility] Oncology and Hematology - [place] [address] [facility] [address] [place] [address] Prince Mir MD [address] [facility] [address] [place] [address] Arrived documented as of this encounter Procedures Procedure Name Priority Date/Time Associated Diagnosis Comments COMPREHENSIVE METABOLIC PANEL Routine 03/06/2004 11:12 AM MATHEMATICAL ENGINEER documented in this encounter Results * (ABNORMAL) COMPREHENSIVE METABOLIC PANEL (03/06/2004 11:12 AM MATHEMATICAL ENGINEER) GLUCOSE 95 65 - 109 mg/dL [...] by 2nd methodology. 03/06/2004 11:1 2 AM MATHEMATICAL ENGINEER us Andre Ernst MD CHEMISTRY ORDERABLES Final Res ult INTERFACE SYSTEM Refer to clinic/hospital department documented in this encounter Visit Diagnoses Diagnosis Hypopotassemia- Primary documented in this encounter Care Teams Brazer Furnace Relationship Specialty Start Date End Date Abrahan Mcgee MD [address] [place] [address] PCP - General Family Practice 04/03/24 documented as of this encounter
--- OUTSIDE RECORDS SUMMARY | 2024-10-02 11:04 | XMS_ITS | Referral Summary ---
Author Organization [facility] Address [address] [facility] [place] [address] Care Team Providers Care Tie Carrier Name Role Phone Krishna Medina MD Unavailable Lina Yates NP Unavailable [phone] Abrahan Mcgee MD Primary Care Provider [phone] Encounters Date Type Department Care Team Description 09/15/2024 Telephone [facility] Ophthalmology [address] [place] [address] Joshua Chan, OD Same day 09/15/2024 2:45 PM CDT Office Visit [facility] LASIK Surgery [place] ([facility] [address] [facility] 2nd Floor, [address] [place] [address] [...] 2021 Assessment & Plan (02/02/2022 4:10 PM CRIMINAL JUSTICE INSTRUCTOR): Well healed. Removed BCL today without complications. [...] 04/28/2019 Assessment & Plan (04/28/2019 12:28 PM CRIMINAL JUSTICE INSTRUCTOR): Monitor. Discussed signs and symptoms of Retinal tears or detachments. Pt understands to call immediately if noted. Subjective vision disturbance 04/28/2019 Assessment & Plan (04/28/2019 12:29 PM CRIMINAL JUSTICE INSTRUCTOR): Seeing pink dots No hemorrhages or retinal [...] changes. Assessment & Plan (04/28/2019 12:27 PM CRIMINAL JUSTICE INSTRUCTOR): Monitor closely Retinal hole of left eye [...] on file Legal 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:42 PM CRIMINAL JUSTICE INSTRUCTOR Gender Identity Not on file Sexual [...] Advance Directives For more information, please contact: [phone] * Full Code (Latest Code Status on File) Date Activated Date Inactivated Comments 11/10/2021 10:25 AM 11/10/2021 3:44 PM * Full Code Date Activated Date Inactivated Comments 09/06/2019 9:17 AM 09/06/2019 3:17 PM * Full Code Date Activated Date Inactivated Comments 07/11/2018 9:22 AM 07/11/2018 4:10 PM Care Teams Tie Carrier Relationship Specialty Start Date End Date Abrahan Mcgee MD [address] [place] [address] PCP - General Family Medicine 06/06/24 Krishna Medina MD [address] [address] 03/17/19 Lina Yates NP [address] [address] Nurse Practitioner 11/12/22
--- OUTSIDE RECORDS SUMMARY | 2024-10-02 11:04 | XMS_ITS | Encounter Summary ---
Author Organization [facility] Address [address] [place] [address] Care Team Providers Care Leather Stretcher Name Role Phone Abrahan Mcgee MD Primary Care Provider [phone] Encounter Details Date Type Department Care Team (Late st Contact Info) Description 02/24/2002 Outpatient Historical HIS [facility] Andre Ernst MD NO ADDRESS ON FILE Social History Tobacco Use Types Packs/Day Years Used Date Smoking Tobacco: Never Assessed Comments Unknown Sex and Gender Information Value Date Recorded Sex Assigned at Not on file Legal Sex Female 3:33 AM AUCTIONEER ART Gender Identity Not on file Sexual Orientation Not on file documented as of this encounter Plan of Treatment Upcoming Encounters Date Type Department Care Team (Late st Contact Info) Description 10/02/2024 11:45 AM CDT Office Visit [facility] Oncology and Hematology - [place] [address] [place] [address] [address] [place] [address] Prince Mir MD [address] [facility] [address] [place] [address] Arrived documented as of this encounter Visit Diagnoses Not on filedocumented in this encounter Care Teams Leather Stretcher Relationship Specialty Start Date End Date Abrahan cMgee MD [address] [place] [address] PCP - General Family Practice 04/03/24 documented as of this encounter
--- OUTSIDE RECORDS SUMMARY | 2024-10-02 11:04 | XMS_ITS | Encounter Summary ---
Author Organization [facility] Address [address] [place] [address] Care Team Providers Care Alemite Operator Name Role Phone Abrahan Mcgee MD Primary Care Provider [phone] Encounter Details Date Type Department Care Team (Latest Contact Info) Description 08/15/2003 Outpatient Historical HIS [facility] ЕКАТЕРИНА Ernst, Andre Guardado MD NO ADDRESS ON FILE HYPOPOTASSEMIA (Primary Dx) Social History Tobacco Use Types Packs/Day Years Used Date Smoking Tobacco: Never Assessed Comments Unknown Sex and Gender Information Value Date Recorded Sex Assigned at Not on file Legal Sex Female 3:33 AM COMPARISON SHOPPER Gender Identity Not on file Sexual Orientation Not on file documented as of this encounter Plan of Treatment Upcoming Encounters Date Type Department Care Team (Late st Contact Info) Description 10/02/2024 11:45 AM CDT Office Visit [facility] Oncology and Hematology - [place] [address] [facility] [address] [place] [address] Prince Mir MD [address] [facility] [address] [place] [address] Arrived documented as of this encounter Visit Diagnoses Diagnosis Hypopotassemia- Primary documented in this encounter Care Teams Alemite Operator Relationship Specialty Start Date End Date Abrahan Mcgee MD [address] [place] [address] PCP - General Family Practice 04/03/24 documented as of this encounter
--- OUTSIDE RECORDS SUMMARY | 2024-10-02 11:04 | XMS_ITS | Encounter Summary ---
Author Organization [facility] Address [address] [place] [address] Care Team Providers Care Bradley Linebacker Crewmember Name Role Phone Abrahan cMgee MD Primary Care Provider Encounter Details Date Type Department Care Team (Late st Contact Info) Description 08/15/2002 Outpatient Historical HIS [facility] Andre Ernst MD NO ADDRESS ON FILE Social History Tobacco Use Types Packs/Day Years Used Date Smoking Tobacco: Never Assessed Comments Unknown Sex and Gender Information Value Date Recorded Sex Assigned at Not on file Legal Sex Female 3:33 AM COMFORT STATION SUPERVISOR Gender Identity Not on file Sexual Orientation Not on file documented as of this encounter Plan of Treatment Upcoming Encounters Date Type Department Care Team (Late st Contact Info) Description 10/02/2024 11:45 AM CDT Office Visit [facility] Oncology and Hematology - [place] [address] [place] [address] [address] [place] [address] Prince Mir MD [address] [facility] [address] [place] [address] Arrived documented as of this encounter Visit Diagnoses Not on filedocumented in this encounter Care Teams Bradley Linebacker Crewmember Relationship Specialty Start Date End Date Abrahan Mcgee MD [address] [place] [address] PCP - General Family Practice 04/03/24 documented as of this encounter
--- OUTSIDE RECORDS SUMMARY | 2024-10-02 11:04 | XMS_ITS | Encounter Summary ---
Author Organization [facility] Address [address] [place] [address] Care Team Providers Care Washery Boss Name Role Phone Abrahan Mcgee MD Primary Care Provider Encounter Details Date Type Department Care Team (Latest Contact Info) Description 08/15/2004 Outpatient Historical HIS [facility] ЕКАТЕРИНА Ernst, Andre Guardado MD NO ADDRESS ON FILE HYPOPOTASSEMIA (Primary Dx) Social History Tobacco Use Types Packs/Day Years Used Date Smoking Tobacco: Never Assessed Comments Unknown Sex and Gender Information Value Date Recorded Sex Assigned at Not on file Legal Sex Female 3:33 AM EDITORIAL CARTOONIST Gender Identity Not on file Sexual Orientation Not on file documented as of this encounter Plan of Treatment Upcoming Encounters Date Type Department Care Team (Late st Contact Info) Description 10/02/2024 11:45 AM CDT Office Visit [facility] Oncology and Hematology - [place] [address] [facility] [address] [place] [address] Prince Mir MD [address] [facility] [address] [place] [address] Arrived documented as of this [...] Primary documented in this encounter Care Teams Washery Boss Relationship Specialty Start Date End Date Abrahan Mcgee MD [address] [place] [address] PCP - General Family Practice 04/03/24 documented as of this encounter
--- OUTSIDE RECORDS SUMMARY | 2024-10-02 11:04 | XMS_ITS | Encounter Summary ---
Author Organization [facility] Address [address] [place] [address] Care Team Providers Care Klystrom Tube Tester Name Role Phone Abrahan Mcgee MD Primary Care Provider Encounter Details Date Type Department Care Team (Late st Contact Info) Description 06/05/2004 Outpatient Historical HIS [facility] Andre Ernst MD NO ADDRESS ON FILE Social History Tobacco Use Types Packs/Day Years Used Date Smoking Tobacco: Never Assessed Comments Unknown Sex and Gender Information Value Date Recorded Sex Assigned at Not on file Legal Sex Female 3:33 AM MARKET DEVELOPMENT EXECUTIVE Gender Identity Not on file Sexual Orientation Not on file documented as of this encounter Plan of Treatment Upcoming Encounters Date Type Department Care Team (Late st Contact Info) Description 10/02/2024 11:45 AM CDT Office Visit [facility] Oncology and Hematology - [place] [address] [place] [address] [address] [place] [address] Prince Mir MD [address] [facility] [address] [place] [address] Arrived documented as of this encounter Visit Diagnoses Not on filedocumented in this encounter Care Teams Klystrom Tube Tester Relationship Specialty Start Date End Date Abrahan Mcgee MD [address] [place] [address] PCP - General Family Practice 04/03/24 documented as of this encounter
--- OUTSIDE RECORDS SUMMARY | 2024-10-02 11:04 | XMS_ITS | Encounter Summary ---
Author Organization [facility] Address [address] [place] [address] Care Team Providers Care Cloth Desizing Range Operator Chief Name Role Phone Abrahan Mcgee MD [...] on file Legal Sex Female 3:33 AM SAILING OFFICER Gender Identity Not on file Sexual Orientation Not on file documented as of this encounter Plan of Treatment Upcoming Encounters Date Type Department Care Team (Late st Contact Info) Description 10/02/2024 11:45 AM CDT Office Visit [facility] Oncology and Hematology - [place] [address] [facility] [address] [place] [address] Prince Mir MD [address] [facility] [address] [place] [address] Arrived documented as of this encounter Visit Diagnoses Diagnosis Headache(784.0)- Primary Headache documented in this encounter Care Teams Cloth Desizing Range Operator Chief Relationship Specialty Start Date End Date Abrahan Mcgee MD [address] [place] [address] PCP - General Family Practice 04/03/24 documented as of this encounter
--- OUTSIDE RECORDS SUMMARY | 2024-10-02 11:04 | XMS_ITS | Encounter Summary ---
Author Organization [facility] Address 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 Gender Identity Not on file Sexual Orientation Not on file documented as of this encounter Plan of Treatment Upcoming Encounters Date Type Department Care Team (Late st Contact Info) Description 10/02/2024 11:45 AM CDT Office Visit [facility] Oncology and Hematology - [place] [address] [facility] [address] [place] [address] [place] [address] [place] [address] [address] [place] [address] Arrived documented as of this encounter Visit Diagnoses Diagnosis Essential hypertension, benign- Primary documented in this encounter Care Teams Human Resources Benefits Administrator Relationship Specialty Start Date End Date Abrahan Mcgee MD [address] [place] [address] PCP - General Family Practice 04/03/24 documented as of this encounter
--- OUTSIDE RECORDS SUMMARY | 2024-10-02 11:04 | XMS_ITS | Encounter Summary ---
Author Organization [facility] Address [address] [place] [address] Care Team Providers Care Professor Of Philosophy Name Role Phone Abrahan Mcgee MD Primary Care Provider [phone] Encounter Details Date Type Department Care Team (Late st Contact Info) Description 12/01/2002 Outpatient Historical HIS [facility] Berta Monae MD [address] [place] [address] NONRUPTURED CEREBRAL ANEURYSM (Primary Dx) Social History Tobacco Use Types Packs/Day Years Used Date Smoking Tobacco: Never Assessed Comments Unknown Sex and Gender Information Value Date Recorded Sex Assigned at Not on file Legal Sex Female 3:33 AM SALESPERSON AUTOMOBILES Gender Identity Not on file Sexual Orientation Not on file documented as of this encounter Plan of Treatment Upcoming Encounters Date Type Department Care Team (Late st Contact Info) Description 10/02/2024 11:45 AM CDT Office Visit [facility] Oncology and Hematology - [place] [address] [facility] [address] [place] [address] Prince Mir MD [address] [facility] [address] [place] [address] Arrived documented as of this encounter Visit Diagnoses Diagnosis Cerebral aneurysm, nonruptured- Primary documented in this encounter Care Teams Professor Of Philosophy Relationship Specialty Start Date End Date Abrahan Mcgee MD [address] [place] [address] PCP - General Family Practice 04/03/24 documented as of this encounter
--- OUTSIDE RECORDS SUMMARY | 2024-10-02 11:04 | XMS_ITS | Encounter Summary ---
Author Organization [facility] Address 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 Gender Identity Not on file Sexual Orientation Not on file documented as of this encounter Plan of Treatment Upcoming Encounters Date Type Department Care Team (Late st Contact Info) Description 10/02/2024 11:45 AM CDT Office Visit [facility] Oncology and Hematology - [place] [address] [facility] [address] [place] [address] [place] [address] [place] [address] [address] [place] [address] Arrived documented as of this encounter Visit Diagnoses Diagnosis Diaphragmatic hernia without mention of obstruction or gangrene- Primary documented in this encounter Care Teams Jewelry Estimator Relationship Specialty Start Date End Date Abrahan Mcgee MD [address] [place] [address] PCP - General Family Practice 04/03/24 documented as of this encounter
--- OUTSIDE RECORDS SUMMARY | 2024-10-02 11:04 | XMS_ITS | Encounter Summary ---
Author Organization [facility] Address [address] [place] [address] Care Team Providers Care Payer Specialist Name Role Phone Abrahan Mcgee MD Primary Care Provider [phone] Encounter Details Date Type Department Care Team (Late st Contact Info) Description 11/19/2003 Outpatient Historical HIS [facility] Andre Ernst MD NO ADDRESS ON FILE Social History Tobacco Use Types Packs/Day Years Used Date Smoking Tobacco: Never Assessed Comments Unknown Sex and Gender Information Value Date Recorded Sex Assigned at Not on file Legal Sex Female 3:33 AM UNIONMELT OPERATOR Gender Identity Not on file Sexual Orientation Not on file documented as of this encounter Plan of Treatment Upcoming Encounters Date Type Department Care Team (Late st Contact Info) Description 10/02/2024 11:45 AM CDT Office Visit [facility] Oncology and Hematology - [place] [address] [place] [address] [address] [place] [address] Prince Mir MD [address] [facility] [address] [place] [address] Arrived documented as of this encounter Visit Diagnoses Not on filedocumented in this encounter Care Teams Payer Specialist Relationship Specialty Start Date End Date Abrahan Mcgee MD [address] [place] [address] PCP - General Family Practice 04/03/24 documented as of this encounter
--- OUTSIDE RECORDS SUMMARY | 2024-10-02 11:04 | XMS_ITS | Encounter Summary ---
Author Organization [facility] Address [address] [place] [address] Care Team Providers Care Reporting Developer Name Role Phone Abrahan Mcgee MD Primary Care Provider [phone] Encounter Details Date Type Department Care Team (Latest Contact Info) Description 10/29/2000 Outpatient Historical HIS [facility] ЕКАТЕРИНА Ernst, Andre Guardado MD NO ADDRESS ON FILE Backache, unspecified (Primary Dx) Social History Tobacco Use Types Packs/Day Years Used Date Smoking Tobacco: Never Assessed Comments Unknown Sex and Gender Information Value Date Recorded Sex Assigned at Not on file Legal 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 Female 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 Gender Identity Not on file Sexual Orientation Not on file documented as of this encounter Plan of Treatment Upcoming Encounters Date Type Department Care Team (Late st Contact Info) Description 10/02/2024 11:45 AM CDT Office Visit [facility] Oncology and Hematology - [place] [address] [facility] [address] [place] [address] [place] [address] [place] [address] [address] [place] [address] Arrived documented as of this encounter Visit Diagnoses Diagnosis Backache, unspecified- Primary documented in this encounter Care Teams Reporting Developer Relationship Specialty Start Date End Date Abrahan Mcgee MD [address] [place] [address] PCP - General Family Practice 04/03/24 documented as of this encounter
--- OUTSIDE RECORDS SUMMARY | 2024-10-02 11:04 | XMS_ITS | Encounter Summary ---
Author Organization [facility] Address [address] [place] [address] Care Team Providers Care Manager Grocery Name Role Phone Abrahan Mcgee MD Primary Care Provider [phone] Encounter Details Date Type Department Care Team (Latest Contact Info) Description 03/22/2001 Outpatient Historical HIS [facility] ЕКАТЕРИНА Ernst, Andre Guardado MD NO ADDRESS ON FILE BENIGN HYPERTENSION (Primary Dx) Social History Tobacco Use Types Packs/Day Years Used Date Smoking Tobacco: Never Assessed Comments Unknown Sex and Gender Information Value Date Recorded Sex Assigned at Not on file Legal Sex Female 3:33 AM ENVIRONMENTAL TECH Gender Identity Not on file Sexual Orientation Not on file documented as of this encounter Plan of Treatment Upcoming Encounters Date Type Department Care Team (Late st Contact Info) Description 10/02/2024 11:45 AM CDT Office Visit [facility] Oncology and Hematology - [place] [address] [facility] [address] [place] [address] Prince Mir MD [address] [facility] [address] [place] [address] Arrived documented as of this encounter Visit Diagnoses Diagnosis Essential hypertension, benign- Primary documented in this encounter Care Teams Manager Grocery Relationship Specialty Start Date End Date Abrahan Mcgee MD [address] [place] [address] PCP - General Family Practice 04/03/24 documented as of this encounter
--- OUTSIDE RECORDS SUMMARY | 2024-10-02 11:04 | XMS_ITS | Encounter Summary ---
Author Organization [facility] Address [address] [facility] [address] Attn: Epic Prelude ADT [place] [address] Care Team Providers Care Lamp Tester And Inspector Name Role Phone Abrahan Mcgee MD Primary Care Provider [phone] Encounter Details Date Type Department Care Team (Late st Contact Info) Description 08/03/1994 Outpatient Historical Andre Ernst MD NO ADDRESS ON FILE Social History Tobacco Use Types Packs/Day Years Used Date Smoking Tobacco: Never Assessed Comments Unknown Sex and Gender Information Value Date Recorded Sex Assigned at Not on file Legal Sex Female 3:33 AM PHARMACY INTAKE 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 Gender Identity Not on file Sexual Orientation Not on file documented as of this encounter Plan of Treatment Upcoming Encounters Date Type Department Care Team (Late st Contact Info) Description 10/02/2024 11:45 AM CDT Office Visit [facility] Oncology [facility] H[facility]ology - [place] [address] [place] [address] [address] [place] [address] Prince Mir MD [address] [facility] [address] [place] [address] Arrived documented as of this encounter Visit Diagnoses Not on filedocumented in this encounter Care Teams Lamp Tester And Inspector Relationship Specialty Start Date End Date Abrahan Mcgee MD [address] [place] [address] PCP - General Family Practice 04/03/24 documented as of this encounter
--- OUTSIDE RECORDS SUMMARY | 2024-10-02 11:04 | XMS_ITS | Encounter Summary ---
Author Organization [facility] Address 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 [address] [place] [address] [place] Mir MD [address] [facility] [address] [place] [address] Arrived documented as of this encounter Visit Diagnoses Diagnosis Essential hypertension, benign- Primary documented in this encounter Care Teams Filler Shredder Helper Relationship Specialty Start Date End Date Abrahan Mcgee MD [address] [place] [address] PCP - General Family Practice 04/03/24 documented as of this encounter
--- OUTSIDE RECORDS SUMMARY | 2024-10-02 11:04 | XMS_ITS | Encounter Summary ---
Author Organization [facility] Address [address] [place] [address] Care Team Providers Care Emergency Room Nurse Name Role Phone Abrahan Mcgee MD Primary Care Provider [phone] Encounter Details Date Type Department Care Team (Late st Contact Info) Description 08/15/2003 Outpatient Historical HIS MRI DEPT Meryl [place] MD [address] [address] ABDOMINAL PAIN RUQ (Primary Dx) Social History Tobacco Use Types Packs/Day Years Used Date Smoking Tobacco: Never Assessed Comments Unknown Sex and Gender Information Value Date Recorded Sex Assigned at Not on file Legal Sex Female 3:33 AM CURATOR Gender Identity Not on file Sexual Orientation Not on file documented as of this encounter Plan of Treatment Upcoming Encounters Date Type Department Care Team (Late st Contact Info) Description 10/02/2024 11:45 AM CDT Office Visit [facility] Oncology and Hematology - [place] [address] [facility] [address] [place] [address] Prince Mir MD [address] [facility] [address] [place] [address] Arrived documented as of this encounter Visit Diagnoses Diagnosis Abdominal pain, right upper quadrant- Primary documented in this encounter Care Teams Emergency Room Nurse Relationship Specialty Start Date End Date Abrahan Mcgee MD [address] [place] [address] PCP - General Family Practice 2/3/25 documented as of this encounter
--- OUTSIDE RECORDS SUMMARY | 2024-10-02 11:04 | XMS_ITS | Encounter Summary ---
Author Organization [facility] Address [address] [place] [address] Care Team Providers Care Caterers Helper Name Role Phone Abrahan Mcgee MD Primary Care Provider Encounter Details Date Type Department Care Team (Late st Contact Info) Description 03/16/2002 Outpatient Historical HIS [facility] INTERNISTS Andre Ernst MD NO ADDRESS ON FILE Social History Tobacco Use Types Packs/Day Years Used Date Smoking Tobacco: Never Assessed Comments Unknown Sex and Gender Information Value Date Recorded Sex Assigned at Not on file Legal Sex Female 3:33 AM SOFT MUD MOLDER Gender Identity Not on file Sexual Orientation Not on file documented as of this encounter Plan of Treatment Upcoming Encounters Date Type Department Care Team (Late st Contact Info) Description 10/02/2024 11:45 AM CDT Office Visit [facility] Oncology and Hematology - [place] [address] [place] [address] [address] [place] [address] Prince Mir MD [address] [facility] [address] [place] [address] Arrived documented as of this encounter Visit Diagnoses Not on filedocumented in this encounter Care Teams Caterers Helper Relationship Specialty Start Date End Date Abrahan Mcgee MD [address] [place] [address] PCP - General Family Practice 04/03/24 documented as of this encounter
--- OUTSIDE RECORDS SUMMARY | 2024-10-02 11:04 | XMS_ITS | Encounter Summary ---
Author Organization [facility] Address 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 Gender Identity Not on file Sexual Orientation Not on file documented as of this encounter Plan of Treatment Upcoming Encounters Date Type Department Care Team (Late st Contact Info) Description 10/02/2024 11:45 AM CDT Office Visit [facility] Oncology and Hematology - [place] [address] [place] [address] [address] [place] [address] Prince Mir MD [address] [facility] [address] [place] [address] Arrived documented as of this encounter Visit Diagnoses Not on filedocumented in this encounter Care Teams Woodyard Crane Operator Relationship Specialty Start Date End Date Abrahan Mcgee MD [address] [place] [address] PCP - General Family Practice 04/03/24 documented as of this encounter
--- OUTSIDE RECORDS SUMMARY | 2024-10-02 11:04 | XMS_ITS | Encounter Summary ---
Author Organization [facility] Address [address] [facility] Attn: Epic Prelude ADT [place] [address] Care Team Providers Care Career Consultant Name Role Phone Abrahan Mcgee MD Primary Care Provider [phone] Encounter Details Date Type Department Care Team (Late st Contact Info) Description 08/03/1994 Outpatient Historical Andre Ernst MD NO ADDRESS ON FILE Social History Tobacco Use Types Packs/Day Years Used Date Smoking Tobacco: Never Assessed Comments Unknown Sex and Gender Information Value Date Recorded Sex Assigned at Not on file Legal Sex Female 3:33 AM FOSTER CARE THERAPIST Gender Identity Not on file Sexual Orientation Not on file documented as of this encounter Plan of Treatment Upcoming Encounters Date Type Department Care Team (Late st Contact Info) Description 10/02/2024 11:45 AM CDT Office Visit [facility] Oncology and Hematology - [place] [address] [place] [address] [address] [place] [address] Prince Mir MD [address] [facility] [address] [place] [address] Arrived documented as of this encounter Visit Diagnoses Not on filedocumented in this encounter Care Teams Career Consultant Relationship Specialty Start Date End Date Abrahan Mcgee MD [address] [place] [address] PCP - General Family Practice 04/03/24 documented as of this encounter
--- OUTSIDE RECORDS SUMMARY | 2024-10-02 11:04 | XMS_ITS | Encounter Summary ---
Author Organization [facility] Address 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 Gender Identity Not on file Sexual Orientation Not on file documented as of this encounter Plan of Treatment Upcoming Encounters Date Type Department Care Team (Late st Contact Info) Description 10/02/2024 11:45 AM CDT Office Visit [facility] Oncology and Hematology - [place] [address] [place] [address] [address] [place] [address] [place] [address] [place] [address] [address] [place] [address] Arrived documented as of this encounter Visit Diagnoses Not on filedocumented in this encounter Care Teams Vegetable Canner Relationship Specialty Start Date End Date Abrahan Mcgee MD [address] [place] [address] PCP - General Family Practice 04/03/24 documented as of this encounter
--- OUTSIDE RECORDS SUMMARY | 2024-10-02 11:04 | XMS_ITS | Encounter Summary ---
Author Organization [facility] Address [address] [place] [address] Care Team Providers Care Veneer Glue Jointer Feedback Name Role Phone Abrahan Mcgee MD Primary Care Provider [phone] Encounter Details Date Type Department Care Team (Latest Contact Info) Description 11/01/2003 Outpatient Historical HIS [facility] ЕКАТЕРИНА Sneed, Oscar Medeiros MD NO ADDRESS ON FILE SCREENING MAMM-MAILG NEOPL-OTHER (Primary Dx) Social History Tobacco Use Types Packs/Day Years Used Date Smoking Tobacco: Never Assessed Comments Unknown Sex and Gender Information Value Date Recorded Sex Assigned at Not on file Legal Sex Female 3:33 AM BOTTLE DEALER Gender Identity Not on file Sexual Orientation Not on file documented as of this encounter Plan of Treatment Upcoming Encounters Date Type Department Care Team (Late st Contact Info) Description 10/02/2024 11:45 AM CDT Office Visit [facility] Oncology and Hematology - [place] [address] [place] [address] [address] [place] [address] Prince Mir MD [address] [place] [address] [address] [place] [address] Arrived documented as of this encounter Visit Diagnoses Diagnosis Other screening mammogram- Primary documented in this encounter Care Teams Veneer Glue Jointer Feedback Relationship Specialty Start Date End Date Abrahan Mcgee MD [address] [place] [address] PCP - General Family Practice 04/03/24 documented as of this encounter
--- OUTSIDE RECORDS SUMMARY | 2024-10-02 11:05 | XMS_ITS | Clinical Summary ---
Author Organization [facility] Address [address] [place] [address] Care Team Providers Care Solar Energy Installation Manager Name Role Phone Luigi Nicole PA-C Primary Care Provider [phone] uLigi Nicole PA-C Unavailable Allergies Active Allergy Reactions [...] (eight) hours as needed. 07/08/19 Active ZENPEP 52102-90590 units CAPSULE ENTERIC COATED PARTICLES Take by [...] mouth nightly. Every other month Active Pancrelipase, Got-Yuog-Ysqh, 90705-[address] units CAPSULE ENTERIC COATED PARTICLES Take 50,000 [...] drink = 0.6 oz pur e alcohol) [facility] Utilities Answer Date Recorded In the [...] any time in the past 12 m [facility], were you homeless or living in a [...] 10:05 AM 08/21/2023 1:30 PM Care Teams Solar Energy Installation Manager Relationship Specialty Start Date End Date Luigi Nicole PA-C [address] [address] PCP - General PHYSICIAN PROPERTY CONTROLLER 08/20/23 Luigi Nicole PA-C [address] [address] PHYSICIAN PROPERTY CONTROLLER 08/20/23
--- OUTSIDE RECORDS SUMMARY | 2024-10-02 11:05 | XMS_ITS | Encounter Summary ---
Author Organization [facility] Address [address] [place] [address] Care Team Providers Care Hot Dog Vendor Name Role Phone Abrahan Mcgee MD Primary Care Provider [phone] Encounter Details Date Type Department Care Team (Late st Contact Info) Description 02/23/2005 Outpatient Historical [facility] Adult Hospitalists [address] [address] Deisy Garcia MD [address] [address] Social History Tobacco Use Types Packs/Day Years Used Date Smoking Tobacco: Never Assessed Comments Unknown Sex and Gender Information Value Date Recorded Sex Assigned at Not on file Legal Sex Female 3:33 AM DOOR TRIMMER Gender Identity Not on file Sexual Orientation Not on file documented as of this encounter Plan of Treatment Upcoming Encounters Date Type Department Care Team (Late st Contact Info) Description 10/02/2024 11:45 AM CDT Office Visit [facility] Oncology and Hematology - [place] [address] [facility] [address] [place] [address] Prince Mir MD [address] [facility] [address] [place] [address] Arrived documented as of this encounter Visit Diagnoses Not on filedocumented in this encounter Care Teams Hot Dog Vendor Relationship Specialty Start Date End Date Abrahan Mcgee MD [address] [place] [address] PCP - General Family Practice 04/03/24 documented as of this encounter
--- OUTSIDE RECORDS SUMMARY | 2024-10-02 11:05 | XMS_ITS | Encounter Summary ---
Author Organization [facility] Address [address] [place] [address] Care Team Providers Care Surgical Resident Name Role Phone Abrahan Mcgee MD Primary Care Provider [phone] Encounter Details Date Type Department Care Team (Late st Contact Info) Description 07/23/2003 Outpatient Historical HIS MRI DEPT Meryl [place] MD [address] [address] UTERINE LEIOMYOMA NOS (Primary Dx) Social History Tobacco Use Types Packs/Day Years Used Date Smoking Tobacco: Never Assessed Comments Unknown Sex and Gender Information Value Date Recorded Sex Assigned at Not on file Legal Sex Female 3:33 AM CONDUCTOR ORCHESTRA Gender Identity Not on file Sexual Orientation Not on file documented as of this encounter Plan of Treatment Upcoming Encounters Date Type Department Care Team (Late st Contact Info) Description 10/02/2024 11:45 AM CDT Office Visit [facility] Oncology and Hematology - [place] [address] [facility] [address] [place] [address] Prince Mir MD [address] [facility] [address] [place] [address] Arrived documented as of this encounter Visit Diagnoses Diagnosis Leiomyoma of uterus, unspecified- Primary documented in this encounter Care Teams Surgical Resident Relationship Specialty Start Date End Date Abrahan Mcgee MD [address] [place] [address] PCP - General Family Practice 04/03/24 documented as of this encounter
--- OUTSIDE RECORDS SUMMARY | 2024-10-02 11:05 | XMS_ITS | Encounter Summary ---
Author Organization [facility] Address [address] [place] [address] Care Team Providers Care Hot Wound Spring Production Supervisor Name Role Phone Abrahan Mcgee MD Primary Care Provider [phone] Encounter Details Date Type Department Care Team (Late st Contact Info) Description 02/24/2005 Outpatient Historical [facility] Support Serv. (Adt Cardiology-[place]) [address] [place] [address] Carmine Morales MD NO ADDRESS ON FILE Social History Tobacco Use Types Packs/Day Years Used Date Smoking Tobacco: Never Assessed Comments Unknown Sex and Gender Information Value Date Recorded Sex Assigned at Not on file Legal Sex Female 3:33 AM ASSOCIATE TECHNICIAN Gender Identity Not on file Sexual Orientation Not on file documented as of this encounter Plan of Treatment Upcoming Encounters Date Type Department Care Team (Late st Contact Info) Description 10/02/2024 11:45 AM CDT Office Visit [facility] Oncology and Hematology - [place] [address] [place] [address] [address] [place] [address] Prince Mir MD [address] [facility] [address] [place] [address] Arrived documented as of this encounter Visit Diagnoses Not on filedocumented in this encounter Care Teams Hot Wound Spring Production Supervisor Relationship Specialty Start Date End Date Abrahan Mcgee MD [address] [place] [address] PCP - General Family Practice 04/03/24 documented as of this encounter
--- OUTSIDE RECORDS SUMMARY | 2024-10-02 11:05 | XMS_ITS | Encounter Summary ---
Author Organization [facility] Address [address] [place] [address] Care Team Providers Care Air [employer] Senior Officer Name Role Phone Abrahan Mcgee MD Primary Care Provider Encounter Details Date Type Department Care Team (Late st Contact Info) Description 09/16/2004 Outpatient Historical HIS [facility] INTERNISTS Andre Ernst MD NO ADDRESS ON FILE Social History Tobacco Use Types Packs/Day Years Used Date Smoking Tobacco: Never Assessed Comments Unknown Sex and Gender Information Value Date Recorded Sex Assigned at Not on file Legal Sex Female 3:33 AM ORDER CLERK Gender Identity Not on file Sexual Orientation Not on file documented as of this encounter Plan of Treatment Upcoming Encounters Date Type Department Care Team (Late st Contact Info) Description 10/02/2024 11:45 AM CDT Office Visit [facility] Oncology and Hematology - [place] [address] [place] [address] [address] [place] [address] Prince Mir MD [address] [facility] [address] [place] [address] Arrived documented as of this encounter Visit Diagnoses Not on filedocumented in this encounter Care Teams Air [employer] Senior Officer Relationship Specialty Start Date End Date Abrahan Mcgee MD [address] [place] [address] PCP - General Family Practice 04/03/24 documented as of this encounter
--- OUTSIDE RECORDS SUMMARY | 2024-10-02 11:05 | XMS_ITS | Encounter Summary ---
Author Organization [facility] Address [address] [place] [address] Care Team Providers Care File Keeper Name Role Phone Abrahan Mcgee MD Primary Care Provider [phone] Encounter Details Date Type Department Care Team (Latest Contact Info) Description 10/17/2002 Outpatient Historical HIS [facility] ЕКАТЕРИНА Ernst, Andre Guardado MD NO ADDRESS ON FILE PURE HYPERCHOLESTEROLEM (Primary Dx) Social History Tobacco Use Types Packs/Day Years Used Date Smoking Tobacco: Never Assessed Comments Unknown Sex and Gender Information Value Date Recorded Sex Assigned at Not on file Legal Sex Female 3:33 AM EYEGLASS FRAMES POLISHER Gender Identity Not on file Sexual Orientation Not on file documented as of this encounter Plan of Treatment Upcoming Encounters Date Type Department Care Team (Late st Contact Info) Description 10/02/2024 11:45 AM CDT Office Visit [facility] Oncology and Hematology - [place] [address] [facility] [address] [place] [address] [place] Mir MD [address] [facility] [address] [place] [address] Arrived documented as of this encounter Visit Diagnoses Diagnosis Pure hypercholesterolemia- Primary documented in this encounter Care Teams File Keeper Relationship Specialty Start Date End Date Abrahan Mcgee MD [address] [place] [address] PCP - General Family Practice 04/03/24 documented as of this encounter
--- OUTSIDE RECORDS SUMMARY | 2024-10-02 11:05 | XMS_ITS | Encounter Summary ---
Author Organization [facility] Address [address] [place] [address] Care Team Providers Care Venipuncturist Name Role Phone Abrahan Mcgee MD Primary Care Provider [phone] Encounter Details Date Type Department Care Team (Late st Contact Info) Description 07/09/2005 Outpatient Historical HIS [facility] INTERNISTS Andre [place] MD NO ADDRESS ON FILE Social History Tobacco Use Types Packs/Day Years Used Date Smoking Tobacco: Never Assessed Comments Unknown Sex and Gender Information Value Date Recorded Sex Assigned at Not on file Legal Sex Female 3:33 AM BUNG REMOVER Gender Identity Not on file Sexual Orientation Not on file documented as of this encounter Plan of Treatment Upcoming Encounters Date Type Department Care Team (Late st Contact Info) Description 10/02/2024 11:45 AM CDT Office Visit [facility] Oncology and Hematology - [place] [address] [place] [address] [address] [place] [address] Prince Mir MD [address] [facility] [address] [place] [address] Arrived documented as of this encounter Visit Diagnoses Not on filedocumented in this encounter Care Teams Venipuncturist Relationship Specialty Start Date End Date Abrahan Mcgee MD [address] [place] [address] PCP - General Family Practice 04/03/24 documented as of this encounter
--- OUTSIDE RECORDS SUMMARY | 2024-10-02 11:05 | XMS_ITS | Encounter Summary ---
Author Organization [facility] Address [address] [place] [address] Care Team Providers Care Freezing Room Worker Name Role Phone Abrahan Mcgee MD [...] on file Legal Sex Female 3:33 AM DELIVERY CONSULTANT Gender Identity Not on file Sexual Orientation Not on file documented as of this encounter Plan of Treatment Upcoming Encounters Date Type Department Care Team (Late st Contact Info) Description 10/02/2024 11:45 AM CDT Office Visit [facility] Oncology and Hematology - [place] [address] [facility] [address] [place] [address] [place] [address] [place] [address] [address] [place] [address] Arrived documented as of this encounter Visit Diagnoses Diagnosis Allergic rhinitis due to pollen- Primary documented in this encounter Care Teams Freezing Room Worker Relationship Specialty Start Date End Date Abrahan Mcgee MD [address] [place] [address] PCP - General Family Practice 04/03/24 documented as of this encounter
--- OUTSIDE RECORDS SUMMARY | 2024-10-02 11:05 | XMS_ITS | Encounter Summary ---
Author Organization [facility] Address [address] [place] [address] Care Team Providers Care Service Provider Name Role Phone Abrahan Mcgee MD Primary Care Provider [phone] Encounter Details Date Type Department Care Team (Latest Contact Info) Description 02/23/2005 Inpatient Historical [facility] EM[facility]Y [facility] Alcon Valadez MD [address] [address] Deisy Garcia MD [address] [address] CHEST PAIN NOS (Primary Dx) Social History Tobacco Use Types Packs/Day Years Used Date Smoking Tobacco: Never Assessed Comments Unknown Sex and Gender Information Value Date Recorded Sex Assigned at Not on file Legal Sex Female 3:33 AM PULLBOAT ENGINEER Gender Identity Not on file Sexual Orientation Not on file documented as of this encounter Plan of Treatment Upcoming Encounters Date Type Department Care Team (Late st Contact Info) Description 10/02/2024 11:45 AM CDT Office Visit [facility] Oncology and Hematology - [place] [address] [facility] [address] [place] [address] rPince Mir MD [address] [facility] [address] [place] [address] Arrived documented as of this encounter Procedures Procedure Name Priority Date/Time Associated Diagnosis Comments CBC WITH DIFFERENTIAL Routine 02/25/2005 4:30 AM PULLBOAT ENGINEER CBC WITH DIFFERENTIAL Routine 02/25/2005 4:30 AM PULLBOAT ENGINEER C-REACTIVE PROTEIN Routine 02/25/2005 4: 30 AM PULLBOAT ENGINEER T3 FREE Routine 02/25/2005 4:30 AM PULLBOAT ENGINEER T4 FREE Routine 02/25/2005 4:30 AM PULLBOAT ENGINEER BASIC METABOLIC PANEL Routine 02/25/2005 4:30 AM PULLBOAT ENGINEER TSH Routine 02/24/2005 4:35 AM PULLBOAT ENGINEER LIPASE Routine 02/24/2005 4:35 AM PULLBOAT ENGINEER AMYLASE Routine 02/24/2005 4:35 AM PULLBOAT ENGINEER LIPID PANEL Routine 02/24/2005 4:35 AM PULLBOAT ENGINEER BASIC METABOLIC PANEL Routine 02/24/2005 4:35 AM PULLBOAT ENGINEER TROPONIN (W/REFLEX CKMB/CK) Routine 02/24/2005 4:15 AM PULLBOAT ENGINEER TROPONIN (W/REFLEX CKMB/CK) Routine 02/23/2005 10:15 PM PULLBOAT ENGINEER URINALYSIS W/REFLEX MICROSCOPIC Routine 02/23/2005 8:31 PM PULLBOAT ENGINEER TROPONIN (W/REFLEX CKMB/CK) Routine 02/23/2005 1:28 PM PULLBOAT ENGINEER CBC WITH DIFFERENTIAL Routine 02/23/2005 12:46 PM PULLBOAT ENGINEER CBC WITH DIFFERENTIAL Routine 02/23/2005 12:46 PM PULLBOAT ENGINEER LIPASE Routine 02/23/2005 12:46 PM PULLBOAT ENGINEER AMYLASE Routine 02/23/2005 12:46 PM PULLBOAT ENGINEER COMPREHENSIVE METABOLIC PANEL Routine 02/23/2005 12:46 PM PULLBOAT ENGINEER documented in this encounter Results * CBC WITH DIFFERENTIAL (02/25/2005 4:30 AM PULLBOAT ENGINEER) NEUTROPHILS 52 45 - 70 % INTERFAC [...] 0.20 K/uL INTERFACE SYSTEM 02/25/2005 4:30 AM PULLBOAT ENGINEER Alcon Valadez MD HEMATOLOGY ORDERABLES Final Re sult Performing Organization Address [facility] de Phone Number INTERFACE SYSTEM Refer to clinic/hospital department * (ABNORMAL) CBC WITH DIFFERENTIAL (02/25/2005 4:30 AM PULLBOAT ENGINEER) WBC 7.4 4.0 - 9.8 K/uL INTERFACE [...] 12.4 fL INTERFACE SYSTEM 02/25/2005 4:30 AM PULLBOAT ENGINEER us Alcon Valadez MD HEMATOLOGY ORDERABLES Final Re sult Performing Organization Address [facility] de Phone Number INTERFACE SYSTEM Refer to clinic/hospital department * T3 FREE (02/25/2005 4:30 AM PULLBOAT ENGINEER) T3 FREE 2.9 2.5 - 4.4 pg/mL INTERFACE SYSTEM 02/25/2005 4:30 AM PULLBOAT ENGINEER us Alcon Vlaadez MD CHEMISTRY ORDERABLES Final Res ult Performing Organization Address [facility] de Phone Number INTERFACE SYSTEM Refer to clinic/hospital department * T4 FREE (02/25/2005 4:30 AM PULLBOAT ENGINEER) T4 FREE 1.3 0.9 - 1.7 ng/dL INTERFACE SYSTEM 02/25/2005 4:30 AM PULLBOAT ENGINEER Result An Valadez MD CHEMISTRY ORDERABLES Final Res ult Performing Organization Address [facility] de Phone Number INTERFACE SYSTEM Refer to clinic/hospital department * C-REACTIVE PROTEIN (02/25/2005 4:30 AM PULLBOAT ENGINEER) CRP 0.6 0.0 - 0.8 mg/dL INTERFACE SYSTEM 02/25/2005 4:30 AM PULLBOAT ENGINEER Result An Valadez MD CHEMISTRY ORDERABLES Final Res ult Performing Organization Address [facility] de Phone Number INTERFACE SYSTEM Refer to clinic/hospital department * BASIC METABOLIC PANEL (02/25/2005 4:30 AM PULLBOAT ENGINEER) GLUCOSE 89 65 - 109 mg/dL INTERFACE [...] 30 mmol/L INTERFACE SYSTEM 02/25/2005 4:30 AM PULLBOAT ENGINEER Result An Valadez MD CHEMISTRY ORDERABLES Final Res ult Performing Organization Address [facility] Phone Number INTERFACE SYSTEM Refer to clinic/hospital department * (ABNORMAL) LIPASE (02/24/2005 4:35 AM PULLBOAT ENGINEER) LIPASE 90(H) 13 - 60 U/L INTERFAC E SYSTEM 02/24/2005 4:35 AM PULLBOAT ENGINEER Nora Sivaprasad CHEMISTRY ORDERABLES Final Resu lt Performing Organization Address [facility] Phone Number INTERFACE SYSTEM Refer to clinic/hospital department * (ABNORMAL) AMYLASE (02/24/2005 4:35 AM PULLBOAT ENGINEER) AMYLASE 118(H) 28 - 100 U/L INTERFACE SYSTEM 02/24/2005 4:35 AM PULLBOAT ENGINEER Nora Sivaprasad CHEMISTRY ORDERABLES Final Resu lt Performing Organization Address [facility] Phone Number INTERFACE SYSTEM Refer to clinic/hospital department * (ABNORMAL) TSH (02/24/2005 4:35 AM PULLBOAT ENGINEER) TSH 4.33(H) 0.27 - 4.20 uU/mL INTERFACE SYSTEM 02/24/2005 4:3 5 AM PULLBOAT ENGINEER Nora Sivaprasad CHEMISTRY ORDERABLES Final Resu lt Performing Organization Address [facility] Phone Number INTERFACE SYSTEM Refer to clinic/hospital department * LIPID PANEL (02/24/2005 4:35 AM PULLBOAT ENGINEER) LIPID PANEL COMMENT See below INTERFACE SYSTEM [...] section for risk classifications. 02/24/2005 4:35 AM PULLBOAT ENGINEER [facility] [employer] CHEMISTRY ORDERABLES Final Resu lt Performing Organization Address [facility] de Phone Number INTERFACE SYSTEM Refer to clinic/hospital department * BASIC METABOLIC PANEL (02/24/2005 4:35 AM PULLBOAT ENGINEER) GLUCOSE 100 65 - 109 mg/dL INTERFACE [...] 30 mmol/L INTERFACE SYSTEM 02/24/2005 4:35 AM PULLBOAT ENGINEER Nora YouOSd CHEMISTRY ORDERABLES Final Resu lt Performing Organization Address [facility] de Phone Number INTERFACE SYSTEM Refer to clinic/hospital department * TROPONIN (W/REFLEX CKMB/CK) (02/24/2005 4:15 AM PULLBOAT ENGINEER) TROPONIN T <0.01 <=0.03 ng/mL INTERFACE SYSTEM TROPONIN T INTERP Negative INTERFACE SYSTEM 02/24/2005 4:15 AM PULLBOAT ENGINEER Nora Sivaprasad CHEMISTRY ORDERABLES Final Resu lt Performing Organization Address [facility] Phone Number INTERFACE SYSTEM Refer to clinic/hospital department * TROPONIN (W/REFLEX CKMB/CK) (02/23/2005 10:15 PM PULLBOAT ENGINEER) TROPONIN T <0.01 <=0.03 ng/mL INTERFACE SYSTEM TROPONIN T INTERP Negative INTERFACE SYSTEM 02/23/2005 10:1 5 PM PULLBOAT ENGINEER [facility] Sivaprasad CHEMISTRY ORDERABLES Final Resu lt Performing Organization Address [facility] Phone Number INTERFACE SYSTEM Refer to clinic/hospital department * (ABNORMAL) URINALYSIS (02/23/2005 8:31 PM PULLBOAT ENGINEER) COLOR UA Yellow INTERFACE SYSTEM CLARITY UA [...] 2-5 /HPF INTERFACE SYSTEM 02/23/2005 8:31 PM PULLBOAT ENGINEER Nora Sivaprasad URINE ORDERABLES Final Result Performing Organization Address [facility] Phone Number INTERFACE SYSTEM Refer to clinic/hospital department * TROPONIN (W/REFLEX CKMB/CK) (02/23/2005 1:28 PM PULLBOAT ENGINEER) TROPONIN T <0.01 <=0.03 ng/mL INTERFACE SYSTEM TROPONIN T INTERP Negative INTERFACE SYSTEM 02/23/2005 1:28 PM PULLBOAT ENGINEER us Erika P Er CHEMISTRY ORDERABLES Final Resul t Performing Organization Address [facility] Phone Number INTERFACE SYSTEM Refer to clinic/hospital department * CBC WITH DIFFERENTIAL (02/23/2005 12:46 PM PULLBOAT ENGINEER) NEUTROPHILS 70 45 - 70 % INTERFAC [...] K/uL INTERFACE SYSTEM 02/23/2005 12:4 6 PM PULLBOAT ENGINEER us Jasbir Sol MD HEMATOLOGY ORDERABLES Final Re sult Performing Organization Address [facility] Phone Number INTERFACE SYSTEM Refer to clinic/hospital department * (ABNORMAL) CBC WITH DIFFERENTIAL (02/23/2005 12:46 PM PULLBOAT ENGINEER) WBC 9.3 4.0 - 9.8 K/uL INTERFACE [...] fL INTERFACE SYSTEM 02/23/2005 12:4 6 PM PULLBOAT ENGINEER Jasbir Sol MD HEMATOLOGY ORDERABLES Final Re sult Performing Organization Address [facility] Phone Number INTERFACE SYSTEM Refer to clinic/hospital department * (ABNORMAL) LIPASE (02/23/2005 12:46 PM PULLBOAT ENGINEER) LIPASE 91(H) 13 - 60 U/L INTERFAC E SYSTEM 02/23/2005 12:4 6 PM PULLBOAT ENGINEER Jasbir Sol MD CHEMISTRY ORDERABLES Final Res ult Performing Organization Address [facility] Phone Number INTERFACE SYSTEM Refer to clinic/hospital department * (ABNORMAL) AMYLASE (02/23/2005 12:46 PM PULLBOAT ENGINEER) AMYLASE 134(H) 28 - 100 U/L INTERFACE SYSTEM 02/23/2005 12:4 6 PM PULLBOAT ENGINEER Jasbir Sol MD CHEMISTRY ORDERABLES Final Res ult Performing Organization Address [facility] Phone Number INTERFACE SYSTEM Refer to clinic/hospital department * (ABNORMAL) COMPREHENSIVE METABOLIC PANEL (02/23/2005 12:46 PM PULLBOAT ENGINEER) GLUCOSE 115(H) 65 - 109 mg/dL INTERFACE [...] mmol/L INTERFACE SYSTEM 02/23/2005 12:4 6 PM PULLBOAT ENGINEER us Jasbir Sol MD CHEMISTRY ORDERABLES Final Res ult INTERFACE SYSTEM Refer to clinic/hospital department documented in this encounter Visit Diagnoses Diagnosis Chest pain, unspecified- Primary documented in this encounter Care Teams Service Provider Relationship Specialty Start Date End Date Abrahan Mcgee MD [address] [place] [address] PCP - General Family Practice 04/03/24 documented as of this encounter
--- OUTSIDE RECORDS SUMMARY | 2024-10-02 11:05 | XMS_ITS | Encounter Summary ---
Author Organization [facility] Address [address] [place] [address] Care Team Providers Care Diesel Roller Operator Name Role Phone Abrahan Mcgee MD Primary Care Provider Encounter Details Date Type Department Care Team (Late st Contact Info) Description 07/30/2005 Outpatient Historical [facility] INTERNISTS Andre Ernst MD NO ADDRESS ON FILE Social History Tobacco Use Types Packs/Day Years Used Date Smoking Tobacco: Never Assessed Comments Unknown Sex and Gender Information Value Date Recorded Sex Assigned at Not on file Legal Sex Female 3:33 AM TAPER OPERATOR Gender Identity Not on file Sexual Orientation Not on file documented as of this encounter Plan of Treatment Upcoming Encounters Date Type Department Care Team (Late st Contact Info) Description 10/02/2024 11:45 AM CDT Office Visit [facility] Oncology and Hematology - [place] [address] [place] [address] [address] [place] [address] Prince Mir MD [address] [facility] [address] [place] [address] Arrived documented as of this encounter Visit Diagnoses Not on filedocumented in this encounter Care Teams Diesel Roller Operator Relationship Specialty Start Date End Date Abrahan Mcgee MD [address] [place] [address] PCP - General Family Practice 04/03/24 documented as of this encounter
--- OUTSIDE RECORDS SUMMARY | 2024-10-02 11:05 | XMS_ITS | Encounter Summary ---
Author Organization [facility] Address [address] [place] [address] Care Team Providers Care Head Of Merchandise Buying Name Role Phone Abrahan Mcgee MD Primary Care Provider [phone] Encounter Details Date Type Department Care Team (Late st Contact Info) Description 12/05/2004 Outpatient Historical [facility] MRI DEPT Meryl Perry MD [address] [address] UTERINE LEIOMYOMA NOS (Primary Dx) Social History Tobacco Use Types Packs/Day Years Used Date Smoking Tobacco: Never Assessed Comments Unknown Sex and Gender Information Value Date Recorded Sex Assigned at Not on file Legal Sex Female 3:33 AM LOAN CLERK Gender Identity Not on file Sexual Orientation Not on file documented as of this encounter Plan of Treatment Upcoming Encounters Date Type Department Care Team (Late st Contact Info) Description 10/02/2024 11:45 AM CDT Office Visit [facility] Oncology and Hematology - [place] [address] [facility] [address] [place] [address] Prince Mir MD [address] [facility] [address] [place] [address] Arrived documented as of this encounter Visit Diagnoses Diagnosis Leiomyoma of uterus, unspecified- Primary documented in this encounter Care Teams Head Of Merchandise Buying Relationship Specialty Start Date End Date Abrahan Mcgee MD [address] [place] [address] PCP - General Family Practice 04/03/24 documented as of this encounter
--- OUTSIDE RECORDS SUMMARY | 2024-10-02 11:05 | XMS_ITS | Encounter Summary ---
Author Organization [facility] Address [address] [place] [address] Care Team Providers Care Operations Project Manager Name Role Phone Abrahan Mcgee MD Primary Care Provider Encounter Details Date Type Department Care Team (Late st Contact Info) Description 01/06/2006 Outpatient Historical [facility] INTERNISTS Andre Ernst MD NO ADDRESS ON FILE Social History Tobacco Use Types Packs/Day Years Used Date Smoking Tobacco: Never Assessed Comments Unknown Sex and Gender Information Value Date Recorded Sex Assigned at Not on file Legal Sex Female 3:33 AM AIRCRAFT REFUELER Gender Identity Not on file Sexual Orientation Not on file documented as of this encounter Plan of Treatment Upcoming Encounters Date Type Department Care Team (Late st Contact Info) Description 10/02/2024 11:45 AM CDT Office Visit [facility] Oncology and Hematology - [place] [address] [place] [address] [address] [place] [address] Prince Mir MD [address] [facility] [address] [place] [address] Arrived documented as of this encounter Visit Diagnoses Not on filedocumented in this encounter Care Teams Operations Project Manager Relationship Specialty Start Date End Date Abrahan Mcgee MD [address] [place] [address] PCP - General Family Practice 04/03/24 documented as of this encounter
--- OUTSIDE RECORDS SUMMARY | 2024-10-02 11:05 | XMS_ITS | Encounter Summary ---
Author Organization [facility] Address [address] [place] [address] Care Team Providers Care Security Messenger Name Role Phone Abrahan Mcgee MD Primary Care Provider [phone] Encounter Details Date Type Department Care Team (Late st Contact Info) Description 07/06/2003 Outpatient Historical [facility] INTERNISTS Andre Ernst MD NO ADDRESS ON FILE Social History Tobacco Use Types Packs/Day Years Used Date Smoking Tobacco: Never Assessed Comments Unknown Sex and Gender Information Value Date Recorded Sex Assigned at Not on file Legal Sex Female 3:33 AM ANIMAL HUSBANDRY TEACHER Gender Identity Not on file Sexual Orientation Not on file documented as of this encounter Plan of Treatment Upcoming Encounters Date Type Department Care Team (Late st Contact Info) Description 10/02/2024 11:45 AM CDT Office Visit [facility] Oncology and Hematology - [place] [address] [place] [address] [address] [place] [address] Prince Mir MD [address] [facility] [address] [place] [address] Arrived documented as of this encounter Visit Diagnoses Not on filedocumented in this encounter Care Teams Security Messenger Relationship Specialty Start Date End Date Abrahan Mcgee MD [address] [place] [address] PCP - General Family Practice 04/03/24 documented as of this encounter
--- OUTSIDE RECORDS SUMMARY | 2024-10-02 11:05 | XMS_ITS | Encounter Summary ---
Author Organization [facility] Address [address] [place] [address] Care Team Providers Care Ramp Lead Name Role Phone Abrahan Mcgee MD Primary Care Provider [phone] Encounter Details Date Type Department Care Team (Late st Contact Info) Description 07/13/2003 Outpatient Historical [facility] GI LAB Meryl Perry MD [address] [address] ABDOMINAL PAIN OTHER SPEC SITE (Primary Dx) Social History Tobacco Use Types Packs/Day Years Used Date Smoking Tobacco: Never Assessed Comments Unknown Sex and Gender Information Value Date Recorded Sex Assigned at Not on file Legal Sex Female 3:33 AM SENIOR FINANCIAL REPORTING ACCOUNTANT Gender Identity Not on file Sexual Orientation Not on file documented as of this encounter Plan of Treatment Upcoming Encounters Date Type Department Care Team (Late st Contact Info) Description 10/02/2024 11:45 AM CDT Office Visit [facility] Oncology and Hematology - [place] [address] [facility] [address] [place] [address] Prince Mir MD [address] [facility] [address] [place] [address] Arrived documented as of this encounter Visit Diagnoses Diagnosis Abdominal pain, other specified site- Primary documented in this encounter Care Teams Ramp Lead Relationship Specialty Start Date End Date Abrahan Mcgee MD [address] [place] [address] PCP - General Family Practice 2/3/25 documented as of this encounter
--- OUTSIDE RECORDS SUMMARY | 2024-10-02 11:05 | XMS_ITS | Encounter Summary ---
Author Organization [facility] Address [address] [place] [address] Care Team Providers Care Stone Paver Name Role Phone Abrahan Mcgee MD Primary Care Provider [phone] Encounter Details Date Type Department Care Team (Latest Contact Info) Description 07/06/2003 Outpatient Historical HIS [facility] Ernst, Andre Guardado MD NO ADDRESS ON FILE BENIGN HYPERTENSION (Primary Dx) Social History Tobacco Use Types Packs/Day Years Used Date Smoking Tobacco: Never Assessed Comments Unknown Sex and Gender Information Value Date Recorded Sex Assigned at Not on file Legal Sex Female 3:33 AM TAX EXPERT Gender Identity Not on file Sexual Orientation Not on file documented as of this encounter Plan of Treatment Upcoming Encounters Date Type Department Care Team (Late st Contact Info) Description 10/02/2024 11:45 AM CDT Office Visit [facility] Oncology and Hematology - [place] [address] [facility] [address] [place] [address] [place] [address] [place] [address] [address] [place] [address] Arrived documented as of this encounter Visit Diagnoses Diagnosis Essential hypertension, benign- Primary documented in this encounter Care Teams Stone Paver Relationship Specialty Start Date End Date Abrahan Mcgee MD [address] [place] [address] PCP - General Family Practice 04/03/24 documented as of this encounter
--- OUTSIDE RECORDS SUMMARY | 2024-10-02 11:05 | XMS_ITS | Encounter Summary ---
Author Organization [facility] Address 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 Gender Identity Not on file Sexual Orientation Not on file documented as of this encounter Plan of Treatment Upcoming Encounters Date Type Department Care Team (Late st Contact Info) Description 10/02/2024 11:45 AM CDT Office Visit [facility] Oncology and Hematology - [place] [address] [facility] [address] [place] [address] [place] [address] [place] [address] [address] [place] [address] Arrived documented as of this encounter Visit Diagnoses Diagnosis Unspecified symptom associated with female genital organs- Primary documented in this encounter Care Teams Metal Solderer Relationship Specialty Start Date End Date Abrahan Mcgee MD [address] [place] [address] PCP - General Family Practice 04/03/24 documented as of this encounter
--- OUTSIDE RECORDS SUMMARY | 2024-10-02 11:05 | XMS_ITS | Encounter Summary ---
Author Organization [facility] Address 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 Gender Identity Not on file Sexual Orientation Not on file documented as of this encounter Plan of Treatment Upcoming Encounters Date Type Department Care Team (Late st Contact Info) Description 10/02/2024 11:45 AM CDT [facility] H[facility]ology - [place] [address] [facility] [address] [place] [address] Prince Mir MD [address] [facility] [address] [place] [address] Arrived documented as of this encounter Visit Diagnoses Diagnosis Nonspecific (abnormal) findings on radiological and other examination of gastrointestinal tract- Primary documented in this encounter Care Teams Nursing Assoc Relationship Specialty Start Date End Date Abrahan Mcgee MD [address] [place] [address] PCP - General Family Practice 04/03/24 documented as of this encounter
--- OUTSIDE RECORDS SUMMARY | 2024-10-02 11:05 | XMS_ITS | Encounter Summary ---
Author Organization [facility] Address 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 Gender Identity Not on file Sexual Orientation Not on file documented as of this encounter Plan of Treatment Upcoming Encounters Date Type Department Care Team (Late st Contact Info) Description 10/02/2024 11:45 AM CDT Office Visit [facility] Oncology and Hematology - [place] [address] [place] [address] Dr [address] [place] [address] Prince Mir MD [address] [facility] [address] [place] [address] Arrived documented as of this encounter Visit Diagnoses Diagnosis Benign neoplasm of colon- Primary documented in this encounter Care Teams Floor Layer Apprentice Relationship Specialty Start Date End Date Abrahan Mcgee MD [address] [place] [address] PCP - General Family Practice 04/03/24 documented as of this encounter
--- OUTSIDE RECORDS SUMMARY | 2024-10-02 11:05 | XMS_ITS | Encounter Summary ---
Author Organization [facility] Address 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 Gender Identity Not on file Sexual Orientation Not on file documented as of this encounter Plan of Treatment Upcoming Encounters Date Type Department Care Team (Late st Contact Info) Description 10/02/2024 11:45 AM CDT Office Visit [facility] Oncology and Hematology - [place] [address] [facility] [address] [place] [address] Prince Mir MD [address] [facility] [address] [place] [address] Arrived documented as of this encounter Visit Diagnoses Diagnosis Cervicalgia- Primary documented in this encounter Care Teams Die Set Up Worker Relationship Specialty Start Date End Date Abrahan Mcgee MD [address] [place] [address] PCP - General Family Practice 04/03/24 documented as of this encounter
--- OUTSIDE RECORDS SUMMARY | 2024-10-02 11:05 | XMS_ITS | Encounter Summary ---
Author Organization [facility] Address 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 Gender Identity Not on file Sexual Orientation Not on file documented as of this encounter Plan of Treatment Upcoming Encounters Date Type Department Care Team (Late st Contact Info) Description 10/02/2024 11:45 AM CDT Office Visit [facility] Oncology and Hematology - [place] [address] [place] [address] Dr [address] [place] [address] Prince Mir MD [address] [facility] [address] [place] [address] Arrived documented as of this encounter Visit Diagnoses Not on filedocumented in this encounter Care Teams Piercing Specialist Relationship Specialty Start Date End Date Abrahan Mcgee MD [address] [place] [address] PCP - General Family Practice 04/03/24 documented as of this encounter
--- OUTSIDE RECORDS SUMMARY | 2024-10-02 11:05 | XMS_ITS | Encounter Summary ---
Author Organization [facility] Address [address] [place] [address] Care Team Providers Care Fashion Design Professor Name Role Phone Abrahan Mcgee MD Primary Care Provider [phone] Encounter Details Date Type Department Care Team (Late st Contact Info) Description 02/23/2005 Outpatient Historical [facility] Support [facility] (Adt Cardiology-[place]) [address] [place] [id number] Guero Malhotra MD NO ADDRESS ON FILE Social History Tobacco Use Types Packs/Day Years Used Date Smoking Tobacco: Never Assessed Comments Unknown Sex and Gender Information Value Date Recorded Sex Assigned at Not on file Legal Sex Female 3:33 AM ADJUNCT POLITICAL SCIENCE INSTRUCTOR Gender Identity Not on file Sexual Orientation Not on file documented as of this encounter Plan of Treatment Upcoming Encounters Date Type Department Care Team (Late st Contact Info) Description 10/02/2024 11:45 AM CDT Office Visit [facility] Oncology and Hematology - [place] [address] [place] [address] [address] [place] [address] Prince Mir MD [address] [facility] [address] [place] [address] Arrived documented as of this encounter Visit Diagnoses Not on filedocumented in this encounter Care Teams Fashion Design Professor Relationship Specialty Start Date End Date Abrahan Mcgee MD [address] [place] [address] PCP - General Family Practice 04/03/24 documented as of this encounter
--- OUTSIDE RECORDS SUMMARY | 2024-10-02 11:05 | XMS_ITS | Encounter Summary ---
Author Organization [facility] Address [address] [place] [address] Care Team Providers Care Reed Worker Name Role Phone Abrahan Mcgee MD Primary Care Provider Encounter Details Date Type Department Care Team (Late st Contact Info) Description 11/27/2002 Outpatient Historical [facility] Berta Monae MD [address] [place] [address] Social History Tobacco Use Types Packs/Day Years Used Date Smoking Tobacco: Never Assessed Comments Unknown Sex and Gender Information Value Date Recorded Sex Assigned at Not on file Legal Sex Female 3:33 AM SIZE CUTTER Gender Identity Not on file Sexual Orientation Not on file documented as of this encounter Plan of Treatment Upcoming Encounters Date Type Department Care Team (Late st Contact Info) Description 10/02/2024 11:45 AM CDT Office Visit [facility] Oncology and Hematology - [place] [address] [place] [address] Dr [address] [place] [address] [place] [address] [place] [address] [address] [place] [address] Arrived documented as of this encounter Visit Diagnoses Not on filedocumented in this encounter Care Teams Reed Worker Relationship Specialty Start Date End Date Abrahan Mcgee MD [address] [place] [address] PCP - General Family Practice 04/03/24 documented as of this encounter
--- OUTSIDE RECORDS SUMMARY | 2024-10-02 11:05 | XMS_ITS | Encounter Summary ---
Author Organization [facility] Address [address] [place] [address] Care Team Providers Care Torch Heater Name Role Phone Abrahan Mcgee MD Primary Care Provider [phone] Encounter Details Date Type Department Care Team (Late st Contact Info) Description 11/20/2002 Emergency [facility] Nahid Brewster MD NO ADDRESS ON FILE Er, Authorized P NO ADDRESS ON FILE OPEN WOUND OF SCALP (Primary Dx) Social History Tobacco Use Types Packs/Day Years Used Date Smoking Tobacco: Never Assessed Comments Unknown Sex and Gender Information Value Date Recorded Sex Assigned at Not on file Legal Sex Female 3:33 AM ANALYSIS CONSULTANT Gender Identity Not on file Sexual Orientation Not on file documented as of this encounter Plan of Treatment Upcoming Encounters Date Type Department Care Team (Late st Contact Info) Description 10/02/2024 11:45 AM CDT Office Visit [facility] Oncology and Hematology - [place] [address] [place] [address] Dr [address] [place] [address] Prince Mir MD [address] [place] [address] [address] [place] [address] Arrived documented as of this encounter Visit Diagnoses Diagnosis Open wound of scalp, without mention of complication- Primary documented in this encounter Care Teams Torch Heater Relationship Specialty Start Date End Date Abrahan Mcgee MD [address] [place] [address] PCP - General Family Practice 04/03/24 documented as of this encounter
--- OUTSIDE RECORDS SUMMARY | 2024-10-02 11:05 | XMS_ITS | Encounter Summary ---
Author Organization [facility] Address [address] [place] [address] Care Team Providers Care Web Developer Programmer Name Role Phone Abrahan Mcgee MD Primary Care Provider [phone] Encounter Details Date Type Department Care Team (Latest Contact Info) Description 11/24/2005 Outpatient Historical HIS [facility] ЕКАТЕРИНА Sneed, Oscar Medeiros MD NO ADDRESS ON FILE Other Screening Mammogram (Primary Dx) Social History Tobacco Use Types Packs/Day Years Used Date Smoking Tobacco: Never Assessed Comments Unknown Sex and Gender Information Value Date Recorded Sex Assigned at Not on file Legal Sex Female 3:33 AM CHIEF MATE Gender Identity Not on file Sexual Orientation Not on file documented as of this encounter Plan of Treatment Upcoming Encounters Date Type Department Care Team (Late st Contact Info) Description 10/02/2024 11:45 AM CDT Office Visit [facility] Oncology and Hematology - [place] [address] [facility] [address] [place] [address] [place] [address] [place] [address] [address] [place] [address] Arrived documented as of this encounter Visit Diagnoses Diagnosis Other screening mammogram- Primary documented in this encounter Care Teams Web Developer Programmer Relationship Specialty Start Date End Date Abrahan Mcgee MD [address] [place] [address] PCP - General Family Practice 04/03/24 documented as of this encounter
--- OUTSIDE RECORDS SUMMARY | 2024-10-02 11:05 | XMS_ITS | Encounter Summary ---
Author Organization [facility] Address [address] [place] [address] Care Team Providers Care Burglar Alarm Inspector Name Role Phone Abrahan Mcgee MD Primary Care Provider [phone] Encounter Details Date Type Department Care Team (Late st Contact Info) Description 06/11/2005 Outpatient Historical [facility] Andre Ernst MD NO ADDRESS ON FILE Social History Tobacco Use Types Packs/Day Years Used Date Smoking Tobacco: Never Assessed Comments Unknown Sex and Gender Information Value Date Recorded Sex Assigned at Not on file Legal Sex Female 3:33 AM HAT CHECKER Gender Identity Not on file Sexual Orientation Not on file documented as of this encounter Plan of Treatment Upcoming Encounters Date Type Department Care Team (Late st Contact Info) Description 10/02/2024 11:45 AM CDT Office Visit [facility] Oncology and Hematology - [place] [address] [place] [address] [address] [place] [address] Prince Mir MD [address] [facility] [address] [place] [address] Arrived documented as of this encounter Visit Diagnoses Not on filedocumented in this encounter Care Teams Burglar Alarm Inspector Relationship Specialty Start Date End Date Abrahan Mcgee MD [address] [place] [address] PCP - General Family Practice 04/03/24 documented as of this encounter
--- OUTSIDE RECORDS SUMMARY | 2024-10-02 11:05 | XMS_ITS | Encounter Summary ---
Author Organization [facility] Address [address] [place] [address] Care Team Providers Care Food And Beverage Director Name Role Phone Abrahan Mcgee MD Primary Care Provider [phone] Encounter Details Date Type Department Care Team (Late st Contact Info) Description 12/18/2004 Outpatient Historical [facility] INTERN[facility] Andre Ernst MD NO ADDRESS ON FILE Social History Tobacco Use Types Packs/Day Years Used Date Smoking Tobacco: Never Assessed Comments Unknown Sex and Gender Information Value Date Recorded Sex Assigned at Not on file Legal Sex Female 3:33 AM CDS SALES ADVISOR Gender Identity Not on file Sexual Orientation Not on file documented as of this encounter Plan of Treatment Upcoming Encounters Date Type Department Care Team (Late st Contact Info) Description 10/02/2024 11:45 AM CDT Office Visit [facility] Oncology and Hematology - [place] [address] [place] [address] [address] [place] [address] Prince Mir MD [address] [facility] [address] [place] [address] Arrived documented as of this encounter Visit Diagnoses Not on filedocumented in this encounter Care Teams Food And Beverage Director Relationship Specialty Start Date End Date Abrahan Mcgee MD [address] [place] [address] PCP - General Family Practice 04/03/24 documented as of this encounter
--- OUTSIDE RECORDS SUMMARY | 2024-10-02 11:05 | XMS_ITS | Encounter Summary ---
Author Organization [facility] Address 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 Oncology and Hematology - [place] [address] [facility] [address] [place] [address] Prince Mir MD [address] [facility] [address] [place] [address] Arrived documented as of this [...] FETOPROTEIN TUMOR MARKER (11/27/2004 11:54 AM CDT) [facility] ALPHA FETOPROTEIN TUMOR MARKER 2.2 ng/mL INTERFACE SYSTEM Comment: This test was performed using the DPC Immulite 2000 Assay. REFERENCE RANGE: <6.1 THE USE OF AFP A TUMOR MARKER IN FEMALES IS NOT RECOMMENDED. Lab test performed by: [email or web address] [id number] EVELINA AMOS MD 11/27/2004 11:5 4 AM CDT Meryl Perry MD CHEMISTRY ORDERABLES Fin al Result INTERFACE SYSTEM Refer to clinic/hospital department * CBC WITH DIFFERENTIAL (11/27/2004 11:54 AM CDT) [facility] NEUTROPHILS 67 45 - 70 % [...] ORDERABLES Fi nal Result Performing Organization Address City/State/[facility] Co de Phone Number [...] ORDERABLES Fi nal Result Performing Organization Address [facility] Phone Number INTERFACE SYSTEM Refer to clinic/hospital department * (ABNORMAL) AMYLASE (11/27/2004 11:54 AM CDT) AMYLASE 141(H) 28 - 100 U/L INTERFACE SYSTEM 11/27/2004 11:5 4 AM CDT Meryl Perry MD CHEMISTRY ORDERABLES Fin al Result Performing Organization Address City/[facility] Co de Phone Number INTERFACE SYSTEM Refer to clinic/hospital department * (ABNORMAL) LIPASE (11/27/2004 11:54 AM CDT) LIPASE 97(H) 13 - 60 U/L INTERFAC E SYSTEM 11/27/2004 11:5 4 AM CDT Meryl Perry MD CHEMISTRY ORDERABLES Fin al Result Performing Organization Address [facility] Phone Number INTERFACE SYSTEM Refer to clinic/hospital department * C-REACTIVE PROTEIN (11/27/2004 11:54 AM CDT) CRP 0.5 0.0 - 0.8 mg/dL INTERFACE SYSTEM 11/27/2004 11:5 4 AM CDT Meryl Perry MD CHEMISTRY ORDERABLES Fin al Result Performing Organization Address [facility] Phone Number INTERFACE SYSTEM Refer [...] ORDERABLES Fin al Result Performing Organization Address [facility] Phone Number INTERFACE SYSTEM [...] Primary documented in this encounter Care Teams Stockbroking Dealer Relationship Specialty Start Date End Date Abrahan Mcgee MD [address] [place] [address] PCP - General Family Practice 04/03/24 documented as of this encounter
--- OUTSIDE RECORDS SUMMARY | 2024-10-02 11:05 | XMS_ITS | Clinical Summary ---
Author Organization [facility] Care Team Providers Care Diesel Engine Engineer Name Role Phone Unavailable Primary Care Provider [...]
--- OUTSIDE RECORDS SUMMARY | 2024-10-02 11:05 | XMS_ITS | Encounter Summary ---
Author Organization [facility] Address [address] [place] [address] Care Team Providers Care Agricultural Inspector Name Role Phone Abrahan Mcgee MD Primary Care Provider [phone] Encounter Details Date Type Department Care Team (Latest Contact Info) Description 09/16/2004 Outpatient Historical HIS [facility] ЕКАТЕРИНА Ernst, Andre Guardado MD NO ADDRESS ON FILE BENIGN HYPERTENSION (Primary Dx) Social History Tobacco Use Types Packs/Day Years Used Date Smoking Tobacco: Never Assessed Comments Unknown Sex and Gender Information Value Date Recorded Sex Assigned at Not on file Legal Sex Female 3:33 AM BASKET PERSON Gender Identity Not on file Sexual Orientation Not on file documented as of this encounter Plan of Treatment Upcoming Encounters Date Type Department Care Team (Late st Contact Info) Description 10/02/2024 11:45 AM CDT Office Visit [facility] Oncology and Hematology - [place] [address] [facility] [address] [place] [address] Prince Mir MD [address] [facility] [address] [place] [address] Arrived documented as of this [...] ORDERABLES Final Re sult Performing Organization Address City/[facility] de Phone Number INTERFACE SYSTEM Refer to [...] ORDERABLES Final Res ult Performing Organization Address City/[facility] de Phone Number INTERFACE SYSTEM Refer to [...] INTERFACE SYSTEM 09/16/2004 11:4 8 AM CDT us Andre Ernst MD CHEMISTRY ORDERABLES Final Res ult Performing Organization Address [facility] Phone Number INTERFACE SYSTEM Refer to clinic/hospital department documented in this encounter Visit Diagnoses Diagnosis Essential hypertension, benign- Primary documented in this encounter Care Teams Agricultural Inspector Relationship Specialty Start Date End Date Abrahan Mcgee MD [address] [place] [address] PCP - General Family Practice 04/03/24 documented as of this encounter
--- OUTSIDE RECORDS SUMMARY | 2024-10-02 11:05 | XMS_ITS | Encounter Summary ---
Author Organization [facility] Address [address] [place] [address] Care Team Providers Care Hand Twister Name Role Phone Abrahan Mcgee MD Primary Care Provider [phone] Encounter Details Date Type Department Care Team (Latest Contact Info) Description 10/17/2002 Outpatient Historical HIS [facility] ЕКАТЕРИНА Ernst, Andre Guardado MD NO ADDRESS ON FILE SOLITARY CYST OF BREAST (Primary Dx) Social History Tobacco Use Types Packs/Day Years Used Date Smoking Tobacco: Never Assessed Comments Unknown Sex and Gender Information Value Date Recorded Sex Assigned at Not on file Legal Sex Female 3:33 AM DRAGLINE MECHANIC Gender Identity Not on file Sexual Orientation Not on file documented as of this encounter Plan of Treatment Upcoming Encounters Date Type Department Care Team (Late st Contact Info) Description 10/02/2024 11:45 AM CDT Office Visit [facility] Oncology and Hematology - [place] [address] [facility] [address] [place] [address] [place] [address] [place] [address] [address] [place] [address] Arrived documented as of this encounter Visit Diagnoses Diagnosis Solitary cyst of breast- Primary documented in this encounter Care Teams Hand Twister Relationship Specialty Start Date End Date Abrahan Mcgee MD [address] [place] [address] PCP - General Family Practice 04/03/24 documented as of this encounter
--- OUTSIDE RECORDS SUMMARY | 2024-10-02 11:05 | XMS_ITS | Encounter Summary ---
Author Organization [facility] Address [address] [place] [address] Care Team Providers Care Conduit Mechanic Name Role Phone Abrahan Mcgee MD Primary Care Provider [phone] Encounter Details Date Type Department Care Team (Late Contact Info) Description 02/24/2005 Outpatient Historical [facility] [address] [place] [address] Alcon Valadez MD [address] [place] [address] Social History Tobacco Use Types Packs/Day Years Used Date Smoking Tobacco: Never Assessed Comments Unknown Sex and Gender Information Value Date Recorded Sex Assigned at Not on file Legal Sex Female 3:33 AM SPINDLE SETTER Gender Identity Not on file Sexual Orientation Not on file documented as of this encounter Plan of Treatment Upcoming Encounters Date Type Department Care Team (Late st Contact Info) Description 10/02/2024 11:45 AM CDT Office Visit [facility] Oncology and Hematology - [place] [address] [facility] [address] [place] [address] Prince Mir MD [address] [facility] [address] [place] [address] Arrived documented as of this encounter Visit Diagnoses Not on filedocumented in this encounter Care Teams Conduit Mechanic Relationship Specialty Start Date End Date Abrahan Mcgee MD [address] [place] [address] PCP - General Family Practice 04/03/24 documented as of this encounter
--- OUTSIDE RECORDS SUMMARY | 2024-10-02 11:05 | XMS_ITS | Encounter Summary ---
Author Organization [facility] Address [address] [place] [address] Care Team Providers Care Director Of Accounting Name Role Phone Abrahan Mcgee MD Primary Care Provider [phone] Encounter Details Date Type Department Care Team (Latest Contact Info) Description 11/27/2004 Outpatient Historical HIS [facility] ЕКАТЕРИНА Sneed, Oscar Medeiros MD NO ADDRESS ON FILE SCREENING MAMM-MAILG NEOPL NEC (Primary Dx) Social History Tobacco Use Types Packs/Day Years Used Date Smoking Tobacco: Never Assessed Comments Unknown Sex and Gender Information Value Date Recorded Sex Assigned at Not on file Legal Sex Female 3:33 AM CARTOGRAPHY SUPERVISOR Gender Identity Not on file Sexual Orientation Not on file documented as of this encounter Plan of Treatment Upcoming Encounters Date Type Department Care Team (Late st Contact Info) Description 10/02/2024 11:45 AM CDT Office Visit [facility] Oncology and Hematology - [place] [address] [facility] [address] [place] [address] [place] [address] [place] [address] [address] [place] [address] Arrived documented as of this encounter Visit Diagnoses Diagnosis Other screening mammogram- Primary documented in this encounter Care Teams Director Of Accounting Relationship Specialty Start Date End Date Abrahan Mcgee MD [address] [place] [address] PCP - General Family Practice 04/03/24 documented as of this encounter
--- OUTSIDE RECORDS SUMMARY | 2024-10-02 11:05 | XMS_ITS | Encounter Summary ---
Author Organization [facility] Address [address] [place] [address] Care Team Providers Care Program Coordinator Executive Education Name Role Phone Abrahan Mcgee MD Primary Care Provider [phone] Encounter Details Date Type Department Care Team (Latest Contact Info) Description 12/04/2005 Outpatient Historical HIS [facility] ЕКАТЕРИНА Ernst, Andre Guardado MD NO ADDRESS ON FILE Essential Hypertension, Benign (Primary Dx) Social History Tobacco Use Types Packs/Day Years Used Date Smoking Tobacco: Never Assessed Comments Unknown Sex and Gender Information Value Date Recorded Sex Assigned at Not on file Legal Sex Female 3:33 AM METAL WEATHER STRIPPER Gender Identity Not on file Sexual Orientation Not on file documented as of this encounter Plan of Treatment Upcoming Encounters Date Type Department Care Team (Late st Contact Info) Description 10/02/2024 11:45 AM CDT Office Visit [facility] Oncology and Hematology - [place] [address] [facility] [address] [place] [address] Prince Mir MD [address] [facility] [address] [place] [address] Arrived documented as of this [...] ult INTERFACE SYSTEM Refer to clinic/hospital department * [...] ORDERABLES Final Res ult Performing Organization Address City/[facility]/ZIP Co de Phone Number INTERFACE SYSTEM Refer to clinic/hospital department documented in this encounter Visit Diagnoses Diagnosis Essential hypertension, benign- Primary documented in this encounter Care Teams Program Coordinator Executive Education Relationship Specialty Start Date End Date Abrahan Mcgee MD [address] [place] [address] PCP - General Family Practice 04/03/24 documented as of this encounter
--- OUTSIDE RECORDS SUMMARY | 2024-10-02 11:05 | XMS_ITS | Encounter Summary ---
Author Organization [facility] Address [address] [place] [address] Care Team Providers Care Senior Cost Analyst Name Role Phone Abrahan Mcgee MD Primary Care Provider [phone] Encounter Details Date Type Department Care Team (Latest Contact Info) Description 06/11/[address] [facility] ЕКАТЕРИНА Ernst, Andre Guardado MD NO ADDRESS ON FILE Headache (Primary Dx) Social History Tobacco Use Types Packs/Day Years Used Date Smoking Tobacco: Never Assessed Comments Unknown Sex and Gender Information Value Date Recorded Sex Assigned at Not on file Legal Sex Female 3:33 AM MICROBIOLOGY INSTRUCTOR Gender Identity Not on file Sexual Orientation Not on file documented as of this encounter Plan of Treatment Upcoming Encounters Date Type Department Care Team (Late st Contact Info) Description 10/02/2024 11:45 AM CDT Office Visit [facility] Oncology and Hematology - [place] [address] [facility] [address] [place] [address] Prince Mir MD [address] [facility] [address] [place] [address] Arrived documented as of this encounter Procedures Procedure Name Priority Date/Time Associated Diagnosis Comments CBC WITH DIFFERENTIAL Routine 06/11/2005 11:29 AM CDT CBC WITH DIFFERENTIAL Routine 06/11/2005 11:29 AM CDT COMPREHENSIVE METABOLIC PANEL Routine 06/11/2005 11:29 AM CDT documented in this encounter Results * CBC WITH DIFFERENTIAL (06/11/2005 11:29 AM CDT) Pathologist [facility] NEUTROPHILS 65 45 - 70 % INTERFAC [...] ORDERABLES Final Re sult Performing Organization Address [facility] Phone Number INTERFACE SYSTEM Refer to clinic/hospital department * (ABNORMAL) CBC WITH DIFFERENTIAL (06/11/2005 11:29 AM CDT) [facility] WBC 8.1 4.0 - 9.8 K/uL INTERFACE [...] ORDERABLES Final Re sult Performing Organization Address [facility] Co de Phone Number [...] Headache documented in this encounter Care Teams Senior Cost Analyst Relationship Specialty Start Date End Date Abrahan Mcgee MD [address] [place] [address] PCP - General Family Practice 04/03/24 documented as of this encounter
[2024-10-02 15:34] LABS: Alanine Aminotransferase 19 U/L (6-35); Albumin Level 4.4 g/dL (3.5-5.1); Alkaline Phosphatase 118 U/L (38-126); Anion Gap 7 mmol/L (4-12); Aspartate Amino Transferase 43 U/L (14-36); Bilirubin,Total 0.5 mg/dL (0.2-1.3); Blood Urea Nitrogen 9 mg/dL (7-17); Calcium 10.3 mg/dL (8.4-10.2); Carbon Dioxide 28 mmol/L (22-30); Chloride 101 mmol/L (98-107); Estimated Glomerular Filt Rate > 60; Glucose 111 mg/dL (65-110); Potassium 4.0 mmol/L (3.4-5.0); Sodium 136 mmol/L (137-145); Total Protein 7.9 g/dL (6.3-8.2)
== END 2024-10-02 10:35 | disposition home or self-care (01) ==
LOC: ANHLAB 10:36
PROVIDERS: PCP Family Medicine; Visit Provider Internal Medicine Hematology & Oncology
DX: D05.11 Intraductal carcinoma in situ of right breast (principal)
CPT/HCPCS: 36415; 80047; 80053; 85025

== ENCOUNTER 2024-10-05 10:35 | Outpatient (CLI) | payer MEDICARE, SELFPAY ==
--- OUTSIDE RECORDS SUMMARY | 2024-10-05 10:39 | XMS_ITS | Encounter Summary ---
Author Organization [facility] Address [address] [facility] Attn: Epic Prelude ADT [place] [address] Care Team Providers Care Blower Room Attendant Name Role Phone Abrahan Mcgee MD Primary Care Provider [phone] Encounter Details Date Type Department Care Team (Late st Contact Info) Description 05/10/1990 Outpatient Historical Andre Ernst MD NO ADDRESS ON FILE Social History Tobacco Use Types Packs/Day Years Used Date Smoking Tobacco: Never Assessed Comments Unknown Sex and Gender Information Value Date Recorded Sex Assigned at Not on file Legal Sex Female 3:33 AM GROCERY CLERK CHECKING Gender Identity Not on file Sexual Orientation Not on file documented as of this encounter Plan of Treatment Upcoming Encounters Date Type Department Care Team (Late st Contact Info) Description 04/04/2025 11:00 AM GROCERY CLERK CHECKING Office Visit [facility] Oncology and Hematology - [place] [address] [place] [address] [address] [place] [address] Prince Mir MD [address] [facility] [address] [place] [address] documented as of this encounter Visit Diagnoses Not on filedocumented in this encounter Care Teams Blower Room Attendant Relationship Specialty Start Date End Date Abrahan Mcgee MD [address] [place] [address] PCP - General Family Practice 04/03/24 documented as of this encounter
--- OUTSIDE RECORDS SUMMARY | 2024-10-05 10:39 | XMS_ITS | Clinical Summary ---
Author Organization [facility] Address [address] [place] [address] Care Team Providers Care Pump Servicer Name Role Phone Krishna Medina MD Unavailable [phone] Lina Yates NP Unavailable [phone] Abrahan Mcgee MD Primary Care Provider Allergies [...] 2021 Assessment & Plan (02/02/2022 4:10 PM RN SPINE): Well healed. Removed BCL today without complications. [...] 04/28/2019 Assessment & Plan (04/28/2019 12:28 PM RN SPINE): Monitor. Discussed signs and symptoms of Retinal tears or detachments. Pt understands to call immediately if noted. Subjective vision disturbance 04/28/2019 Assessment & Plan (04/28/2019 12:29 PM RN SPINE): Seeing pink dots No hemorrhages or retinal [...] changes. Assessment & Plan (04/28/2019 12:27 PM RN SPINE): Monitor closely Retinal hole of left eye [...] Description 09/15/2024 2:45 PM CDT Office Visit [facility] LASIK Surgery [place] ([facility]) [address] [facility] [address], [address] [place] [address] Joshua Chan, OD Foreign body of left conjunctiva, initial encounter (Primary Dx); Intermediate stage nonexudative age-related macular degeneration of both eyes 09/15/2024 Telephone [facility] Ophthalmology [facility] [place] [address] Joshua Chan, OD Same day [...] on file Legal 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:42 PM RN SPINE Gender Identity Not on file Sexual Orientation [...] Completed 019, 11/29/2016, 10/10/2014 Insurance [employer] MEDICARE [facility] MEDICARE [facility] MEDICARE Advance Directives For more information, please contact: [phone] * Full Code (Latest Code Status on File) Date Activated Date Inactivated Comments 11/10/2021 10:25 AM 11/10/2021 3:44 PM * Full Code Date Activated Date Inactivated Comments 09/06/2019 9:17 AM 09/06/2019 3:17 PM * Full Code Date Activated Date Inactivated Comments 07/11/2018 9:22 AM 07/11/2018 4:10 PM Care Teams Pump Servicer Relationship Specialty Start Date End Date Abrahan Mcgee MD [address] [address] PCP - General Family Medicine 06/06/24 Krishna Medina MD [address] [facility] [address] [place] [address] 03/17/19 Lina Yates NP [address] [address] Nurse Practitioner 11/12/22
--- OUTSIDE RECORDS SUMMARY | 2024-10-05 10:39 | XMS_ITS | Encounter Summary ---
Author Organization [facility] Address [address] [facility] Attn: Epic Prelude ADT [place] [address] Care Team Providers Care Printer Floor Covering Assistant Name Role Phone Abrahan Mcgee MD Primary Care Provider [phone] Encounter Details Date Type Department Care Team (Late st Contact Info) Description 07/08/1992 Outpatient Historical Andre Ernst MD NO ADDRESS ON FILE Social History Tobacco Use Types Packs/Day Years Used Date Smoking Tobacco: Never Assessed Comments Unknown Sex and Gender Information Value Date Recorded Sex Assigned at Not on file Legal Sex Female 3:33 AM PRODUCT DESIGNER Gender Identity Not on file Sexual Orientation Not on file documented as of this encounter Plan of Treatment Upcoming Encounters Date Type Department Care Team (Late st Contact Info) Description 04/04/2025 11:00 AM PRODUCT DESIGNER Office Visit [facility] Oncology and Hematology - [place] [address] [place] [address] [address] [place] [address] Prince Mir MD [address] [facility] [address] [place] [address] documented as of this encounter Visit Diagnoses Not on filedocumented in this encounter Care Teams Printer Floor Covering Assistant Relationship Specialty Start Date End Date Abrahan Mcgee MD [address] [place] [address] PCP - General Family Practice 04/03/24 documented as of this encounter
--- OUTSIDE RECORDS SUMMARY | 2024-10-05 10:39 | XMS_ITS | Encounter Summary ---
Author Organization [facility] Address [address] [facility] [place] [address] Care Team Providers Care Door Frame Builder Name Role Phone Abrahan Mcgee MD Primary Care Provider [phone] Encounter Details Date Type Department Care Team (Late st Contact Info) Description 08/13/2021 Lab Requisition [facility] [address] [place] [address] Jose G Llamas MD [address] [place] [address] Social History Tobacco Use Types Packs/Day Years Used Date Smoking Tobacco: Never Assessed Comments Unknown Sex and Gender Information Value Date Recorded Sex Assigned at Not on file Legal Sex Female 6:23 PM PRACTICE SUPPORT SPECIALIST Gender Identity Not on file Sexual Orientation Not on file documented as of this encounter Plan of Treatment Not on file documented as of this encounter Procedures Procedure Name Priority Date/Time Associated Diagnosis Comments DERMATOPATHOLOGY Routine 08/12/2021 12:0 0 AM CDT documented in this encounter Results * DERMATOPATHOLOGY (08/12/2021 12:00 AM CDT) Case Report Dermatopathology Report Case: [id number] Authorizing Provider: Jose G Llamsa MD Collected: 08/12/2021 12:00 AM Ordering Location: [facility] Received: 08/13/2021 10:45 AM [...] specimen consists of a shave biopsy measuring [id number]. Jar 0. 2 10:59 AM CDT DERMATOPATHOLOGY [...] characteristic determined by the Dermatopathology Laboratory at [facility], directed by Dr. Troy Mckeon. These tests need not be, and therefore are not, approved by the [place] Food and Drug Administration. The tests are used for clinical purposes. Billing Codes Specimen Charges Stain Charges 54098 1 2 10:59 AM CDT DERMATOPATHOLOGY LABORATORY Embedded Images 2 10:59 AM CDT DERMATOPATHOLOGY LABORATORY Pathology/Cytolog y TISSUE SPECIMEN FROM SKIN / Unknown 08/12/2021 08/13/2021 10:45 AM CDT us Jose G Llamas MD LAB - PATHOLOGY/CYTOLOGY ORD ERABLES Final Result DERMATOPATHOLOGY LABORATORY [facility] - Department of Dermatology [address], [address] [phone] documented in this encounter Visit Diagnoses Not on filedocumented in this encounter Care Teams Door Frame Builder Relationship Specialty Start Date End Date Abrahan Mcgee MD [address] [place] [address] PCP - General 07/23/09 documented as of this encounter
--- OUTSIDE RECORDS SUMMARY | 2024-10-05 10:39 | XMS_ITS | Encounter Summary ---
Author Organization [facility] Address [address] [facility] Attn: Epic Prelude ADT [place] [address] Care Team Providers Care Button Broacher Name Role Phone Abrahan Mcgee MD Primary Care Provider [phone] Encounter Details Date Type Department Care Team (Late st Contact Info) Description 09/11/1988 Outpatient Historical Andre Ernst MD NO ADDRESS ON FILE Social History Tobacco Use Types Packs/Day Years Used Date Smoking Tobacco: Never Assessed Comments Unknown Sex and Gender Information Value Date Recorded Sex Assigned at Not on file Legal Sex Female 3:33 AM DIRECTOR CRAFT CENTER Gender Identity Not on file Sexual Orientation Not on file documented as of this encounter Plan of Treatment Upcoming Encounters Date Type Department Care Team (Late st Contact Info) Description 04/04/2025 11:00 AM DIRECTOR CRAFT CENTER Office Visit [facility] Oncology and Hematology - [place] [address] [place] [address] [address] [place] [address] Prince Mir MD [address] [facility] [address] [place] [address] documented as of this encounter Visit Diagnoses Not on filedocumented in this encounter Care Teams Button Broacher Relationship Specialty Start Date End Date Abrahan Mcgee MD [address] [place] [address] PCP - General Family Practice 04/03/24 documented as of this encounter
--- OUTSIDE RECORDS SUMMARY | 2024-10-05 10:39 | XMS_ITS | Encounter Summary ---
Author Organization [facility] Address [address] [place] [address] Care Team Providers Care Upstairs Maid Name Role Phone Krishna Medina MD Primary Care Provider [phone] Krishna Medina MD Unavailable [phone] Reason for Visit * Diagnostic Imaging (Routine) - Closed Specialty Diagnoses / Procedures Referred By Contac t Referred To Contact Procedures Breast Imaging Screening Outside Reference Aft, Sweta Gleason MD PhD [address] [place] [address] Phone: tel: fax: Referral ID Status Reason Start Date Expiration Date Visits Re quested Visits Authorized [id number] Closed 01/19/2022 02/18/2023 1 1 Encounter Details Date Type Department Care Team (Late st Contact Info) Description 09/25/2019 Hospital Encounter [facility] [address] [place] [id number] Social History Tobacco Use Types Packs/Day Years [...] on file Legal 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:42 PM CONSTRUCTION MANAGEMENT ASSISTANT Gender Identity Not on file Sexual [...] CDT) Impressions [facility] - 01/19/2022 11:03 AM CONSTRUCTION MANAGEMENT ASSISTANT These images are for Reference purposes only and have not been reviewed by [facility]. There will be no report generated by a [facility] Radiologist. Narrative [facility] - 01/19/2022 11:03 AM CONSTRUCTION MANAGEMENT ASSISTANT EXAMINATION: Images For Reference Purposes Only us Sweta Conteh MD PhD IMG MAMMO PROCEDURES Final Result [facility] documented in this encounter Visit Diagnoses Not on filedocumented in this encounter Care Teams Upstairs Maid Relationship Specialty Start Date End Date Krishna Medina MD [address] [address] PCP - General 03/17/19 04/08/21 Krishna Medina MD [address] [address] 03/17/19 documented as of this encounter
--- OUTSIDE RECORDS SUMMARY | 2024-10-05 10:39 | XMS_ITS | Patient Health Record ---
Author Organization [facility] Address [address] [facility] [address] [place] [address] Care Team Providers Care Chief Deputy Sheriff Name Role Phone Luigi Peng Primary Care Provider Dhara MURCIA LABORER, MICHAELLE Unavailable [phone] Allergies Allergen (clinical drug ingredient) Drug/Non [...] tablet Orally Twice a day Unknown Zenpep [id number] UNIT TAKE 2 CAPSULES BY MOUTH WITH MEALS AND 1 CAPSULE WITH SNACKS DIRECTED; Duration: 360 Active Flonase Active Systane 0.4-0.3 % [...] Problem Gastro-esophagea l reflux disease without esophagitis (076153156) Gastro-esophage al reflux disease without esophagitis (K21.9) Active confirmed Problem Constipation (92101438) Constipation, unspecified (K59.00) Active confirmed Problem Spasm of sphincter of Oddi (K83.4) Active confirmed Problem Cyst of pancreas (45443432) Cyst of pancreas (K86.2) Active confirmed Encounters Encounter Location Date Provider Diagnosis [facility] [address] [place] [address] 11/02/2023 MICHAELLE MURCIA Plan Of Treatment Pending Test Test Name Order Date Esophagogastroduodenoscopy (EGD) 020 Esophagogastroduodenoscopy (EGD) 020 Insurance Providers Payer Name Payer Address Payer Phone Subscriber Number Group Number Insured Name Patient Relationship to Insured Coverage Start Date Coverage End Date [employer] Medicare Advantage PPO [address] [address] [place] [address] [id number] Marshal Sanders Self - patient is the insured Medical (General) History Medical History History ICD Code Arthritis GERD Depression 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 Ha - re portedly [...] Path- mild edema and congestion 10/15/2016 EGD/EUS 05/10/16 Dr. Knott E josias suspicious for achalasia. Abnormal mucosa in esophagus, [...]
--- OUTSIDE RECORDS SUMMARY | 2024-10-05 10:39 | XMS_ITS | Encounter Summary ---
Author Organization [facility] Address [address] [place] [address] Care Team Providers Care Electronic Equipment Repairmen Name Role Phone Abrahan Mcgee MD Primary Care Provider [phone] Reason for Visit * Diagnostic Imaging (Routine) - Closed Specialty Diagnoses / Procedures Referred By Contac t Referred To Contact Procedures Breast Imaging Diagnostic Outside Reference Aft, Sweta Gleason [place] PhD [address] [place] [address] Phone: tel: fax: Referral ID Status Reason Start Date Expiration Date Visits Re quested Visits Authorized [id number] Closed 01/19/2022 02/18/2023 1 1 Encounter Details Date Type Department Care Team (Late st Contact Info) Description 07/21/2016 Hospital Encounter [facility] [address] [place] [id number] Social History Tobacco Use Types Packs/Day Years [...] on file Legal 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:42 PM SYSTEMS CHECKOUT MECHANIC Gender Identity Not on file Sexual [...] CDT) Impressions [facility] - 01/19/2022 10:56 AM SYSTEMS CHECKOUT MECHANIC These images are for Reference purposes only and have not been reviewed by [facility]. There will be no report generated by a [facility] Radiologist. Narrative [facility] - 01/19/2022 10:56 AM SYSTEMS CHECKOUT MECHANIC EXAMINATION: Images For Reference Purposes Only us Sweta Conteh MD PhD IMG MAMMO PROCEDURES Final Result [facility] documented in this encounter Visit Diagnoses Not on filedocumented in this encounter Care Teams Electronic Equipment Repairmen Relationship Specialty Start Date End Date Abrahan Mcgee MD PCP - General 10/06/11 09/09/16 documented as of this encounter
--- OUTSIDE RECORDS SUMMARY | 2024-10-05 10:39 | XMS_ITS | Encounter Summary ---
Author Organization [facility] Address [address] [facility] Attn: Epic Prelude ADT [place] [address] Care Team Providers Care Hydraulic Modeling Engineer Name Role Phone Abrahan Mcgee MD [...] on file Legal Sex Female 3:33 AM DOCK GRADER Gender Identity Not on file Sexual Orientation Not on file documented as of this encounter Plan of Treatment Upcoming Encounters Date Type Department Care Team (Late st Contact Info) Description 04/04/2025 11:00 AM DOCK GRADER Office Visit [facility] Oncology and Hematology - [place] [address] [place] [address] [address] [place] [address] Prince Mir MD [address] [facility] [address] [place] [address] documented as of this encounter Visit Diagnoses Not on filedocumented in this encounter Care Teams Hydraulic Modeling Engineer Relationship Specialty Start Date End Date Abrahan Mcgee MD [address] [place] [address] PCP - General Family Practice 04/03/24 documented as of this encounter
--- OUTSIDE RECORDS SUMMARY | 2024-10-05 10:39 | XMS_ITS | Clinical Summary ---
Author Organization [facility] Address [address] [place] [address] Phone Care Team Providers Care Grain Shoveler Name Role Phone Abrahan Mcgee MD Primary Care Provider [phone] Allergies Active Allergy Reactions Criticality Noted Date [...] 9 Active fluticasone propionate (FLONASE) 50 mcg/spray [place], Suspension nasal inhaler Administer 2 Sprays in each nostril daily. Active montelukast (Singulair) 10 mg tabletIndicati ons:Non-season al allergic rhinitis due to pollen Take 1 Tablet (10 mg) by mouth daily at bedtime. 30 Tablet 1 0 Active ascorbic acid (SUPER C ORAL) Take by mouth. Active famotidine (PEPCID) 10 mg tablet Take 10 mg by mouth daily at bedtime. Active anastrozole (ARIMIDEX) 1 mg tabletIndicati ons:Ductal carcinoma in situ (DCIS) of right breast Take 1 tablet by mouth once daily 90 Tablet 3 5 Active Zenpep 25,000-79,000- 105,000 unit capsule TAKE 2 CAPSULES BY MOUTH WITH MEALS AND 1 CAPSULE WITH SNACKS DIRECTED 3 Active pregabalin (LYRICA) 25 mg Capsule Take 25 mg by mouth 2 times daily. Active trospium (SANCTURA) 20 mg Tablet Take 20 mg by mouth 2 times daily. Active gabapentin (NEURONTIN) 100 mg capsule Take 100 mg by mouth 3 times daily. 10/03/19 25 Discontinu ed(Alterna te therapy prescribed ) Active Problems Problem Noted Date Diagnosed Date HTN (hypertension), benign 09/18/2019 Vaginal atrophy 09/18/2019 Gastritis 09/18/2019 Non-seasonal allergic rhinitis due to pollen Restless leg syndrome 09/18/2019 Encounters Date Type Department Care Team Description 10/04/2024 External Device Data STL ABSTRACTION Provider, Abstract 10/03/2024 Orders Only [facility] Oncology and Hematology [facility] [address] [place] [address] Prince Mir MD 10/02/2024 11:45 AM CDT Office Visit [facility] Oncology and [facility] [address] [place] [address] Prince Mir MD Ductal carcinoma in situ (DCIS) of right breast (Primary Dx) 10/02/2024 Orders Only [facility] Oncology and [facility] [address] [place] [address] Prince Mir MD 09/13/2024 External Device Data STL ABSTRACTION Provider, Abstract 09/13/2024 External Device Data STL ABSTRACTION Provider, Abstract 09/13/2024 External Device Data STL ABSTRACTION Provider, Abstract 09/12/2024 External Device Data STL ABSTRACTION Provider, Abstract 08/16/2024 External Device Data STL ABSTRACTION Provider, Abstract 08/15/2024 External Device Data STL ABSTRACTION Provider, Abstract 08/09/2024 Orders Only [facility] Oncology and Hematology - [place] [address] [place] [address] Prince Mir MD 07/20/2024 External Device Data [...] 1 952 - 2000 Smokeless Tobacco: Never Alcohol Use Standard Drinks/Week Comments Never 0 (1 standard drink = 0.6 oz pur e alcohol) Comments Unknown Sex and Gender Information Value Date Recorded Sex Assigned at Not on file Legal Sex Female 3:33 AM RADIO MECHANIC Gender Identity Not on file Sexual Orientation Not on file Last Filed Vital Signs Vital Sign Reading Time Taken Comments Blood Pressure 140/76 10/02/2024 11:16 AM CDT Pulse 83 10/02/2024 11:12 AM CDT Temperature 36.2 C (97.2 F) 10/02/2024 11:12 AM CDT Respiratory Rate 15 10/02/2024 11:12 AM CDT Oxygen Saturation 96% 10/02/2024 11:12 AM CDT Inhaled Oxygen Concentration - - Weight 49.1 kg (108 lb 3.2 oz) 10/02/2024 11:12 AM CDT Height 149.9 cm (4' 11) 12/09/2022 2:04 PM CDT Body Mass Index 21.85 12/09/2022 2:04 PM CDT Plan of Treatment Upcoming Encounters Date Type Department Care Team (Late st Contact Info) Description 04/04/2025 11:00 AM RADIO MECHANIC Office Visit [facility] Oncology and Hematology - [place] [address] [place] [address] Prince Mir MD [address] [facility] [address] [place] [address] Health Maintenance Due Date Last Done Comments DTAP/TDAP/TD VACCINES (1 - Tdap) 10/12/1954 ZOSTER VACCINE (1 of 2) 10/12/1985 OSTEOPOROSIS SCREENING 10/12/2000 RSV VACCINE (60+ or ) (1 - 1-dose 75+ series) 10/12/2010 INFLUENZA VACCINE (#1) 2024 01/20/2019, 2013 PNEUMOCOCCAL VACCINE 50+ YEARS Completed 12/16/2018 , 10/10/2014 Procedures Procedure Name Priority Date/Time Associated Diagnosis Comments BASIC METABOLIC PANEL Routine 10/02/2024 12:47 PM CDT CBC WITH AUTODIFFERENTIAL Routine 2024 12:45 PM CDT COMPREHENSIVE METABOLIC PANEL Routine 10/02/2024 11:27 AM CDT MAMMO SCREENING BILAT Routine 08/08/2024 9:58 AM CDT from Last 3 Months Results * BASIC METABOLIC PANEL (10/02/2024 12:47 PM CDT) Blood Prince Mir MD CHEMISTRY ORDERABLES Final Resu lt * CBC WITH AUTODIFFERENTIAL (10/02/2024 12:45 PM CDT) Blood Prince Mir MD HEMATOLOGY ORDERABLES Final Res ult * COMPREHENSIVE METABOLIC PANEL (10/02/2024 11:27 AM CDT) Blood us Prince Mir MD CHEMISTRY ORDERABLES Final Resu lt * MAMMO SCREENING BILAT (08/08/2024 9:58 AM CDT) Anatomical Region Laterality Modality Breast Bilateral Mammography us Prince Mir MD MAMMO ORDERABLES Final Result from Last 3 Months Insurance [facility] Care Teams Grain Shoveler Relationship Specialty Start Date End Date Abrahan Mcgee MD [address] [place] [address] PCP - General Family Practice 04/03/24
--- OUTSIDE RECORDS SUMMARY | 2024-10-05 10:39 | XMS_ITS | Clinical Summary ---
Author Organization [facility] Address [address] [place] [address] Care Team Providers Care Diesel Machinist Name Role Phone Abrahan Mcgee MD Primary Care Provider Source Comments [facility] Affiliates and Associated Physician Practices is amultiple site organization consisting of ambulatory clinics and hospital sitesin [place], [place], [place] and [place]. This disclosure is being madepursuant to the Care Everywhere program and may not contain all information available regarding this patient. Last updated 17.[facility] [employer] Social History Tobacco Use Types Packs/Day Years Used Date Smoking Tobacco: Never Assessed Comments Unknown Sex and Gender Information Value Date Recorded Sex Assigned at Not on file Legal Sex Female 6:23 PM BREAKER MACHINE TENDER Gender Identity Not on file [...] patient's age to complete this topic Insurance [facility] MANAGED MEDICARE ADV AETNA MEDICARE ADV SELF PAY NO INSURANCE Member Subscriber Plan / Payer (Ef fective for All Dates) Name:Marshal Sanders Member ID:Not on file Relation to Subscriber:Not on file Name:Marshal SANDERS Subscriber ID:Not on file Address: [address] [place] [address] Payer ID:Not on file Group ID:Not on file Type:Self Pay Address: [place], [place] AETNA MEDICARE ADV SELF PAY NO INSURANCE Member Subscriber Plan / Payer (Ef fective for All Dates) Name:Marshal Sanders Member ID:Not on file Relation to Subscriber:Not on file Name:Marshal SANDERS Subscriber ID:Not on file Address: [address] [place] [address] [place] [address] Payer ID:Not on file Group ID:Not on file Type:Self Pay Address: [place], [place] Care Teams Diesel Machinist Relationship Specialty Start Date End Date Abrahan Mcgee MD [address] [place] [address] PCP - General 07/23/09
--- OUTSIDE RECORDS SUMMARY | 2024-10-05 10:39 | XMS_ITS | Encounter Summary ---
Author Organization [facility] Address [address] [facility] Attn: Epic Prelude ADT [place] [address] Care Team Providers Care Diversional Therapist'S Assistant Name Role Phone Abrahan Mcgee MD Primary Care Provider [phone] Encounter Details Date Type Department Care Team (Late st Contact Info) Description 05/03/1990 Outpatient Historical Andre Ernst MD NO ADDRESS ON FILE Social History Tobacco Use Types Packs/Day Years Used Date Smoking Tobacco: Never Assessed Comments Unknown Sex and Gender Information Value Date Recorded Sex Assigned at Not on file Legal Sex Female 3:33 AM MEDICAL LANGUAGE SPECIALIST Gender Identity Not on file Sexual Orientation Not on file documented as of this encounter Plan of Treatment Upcoming Encounters Date Type Department Care Team (Late st Contact Info) Description 04/04/2025 11:00 AM MEDICAL LANGUAGE SPECIALIST Office Visit [facility] Oncology and Hematology - [place] [address] [place] [address] [address] [place] [address] Prince Mir MD [address] [facility] [address] [place] [address] documented as of this encounter Visit Diagnoses Not on filedocumented in this encounter Care Teams Diversional Therapist'S Assistant Relationship Specialty Start Date End Date Abrahan Mcgee MD [address] [place] [address] PCP - General Family Practice 04/03/24 documented as of this encounter
--- OUTSIDE RECORDS SUMMARY | 2024-10-05 10:39 | XMS_ITS | Encounter Summary ---
Author Organization [facility] Address [address] [facility] Attn: Epic Prelude ADT [place] [address] Care Team Providers Care Captain'S Assistant Name Role Phone Abrahan Mcgee MD Primary Care Provider [phone] Encounter Details Date Type Department Care Team (Late st Contact Info) Description 05/19/1993 Outpatient Historical Andre Ernst MD NO ADDRESS ON FILE Social History Tobacco Use Types Packs/Day Years Used Date Smoking Tobacco: Never Assessed Comments Unknown Sex and Gender Information Value Date Recorded Sex Assigned at Not on file Legal Sex Female 3:33 AM FINISHED GARMENT INSPECTOR Gender Identity Not on file Sexual Orientation Not on file documented as of this encounter Plan of Treatment Upcoming Encounters Date Type Department Care Team (Late st Contact Info) Description 04/04/2025 11:00 AM FINISHED GARMENT INSPECTOR Office Visit [facility] Oncology and Hematology - [place] [address] [place] [address] [address] [place] [address] Prince Mir MD [address] [facility] [address] [place] [address] documented as of this encounter Visit Diagnoses Not on filedocumented in this encounter Care Teams Captain'S Assistant Relationship Specialty Start Date End Date Abrahan Mcgee MD [address] [place] [address] PCP - General Family Practice 04/03/24 documented as of this encounter
--- OUTSIDE RECORDS SUMMARY | 2024-10-05 10:39 | XMS_ITS | Encounter Summary ---
Author Organization [facility] Address [address] [place] [address] Care Team Providers Care Cage Cashier Name Role Phone Abrahan Mcgee MD Primary Care Provider Encounter Details Date Type Department Care Team (Late st Contact Info) Description 10/04/2024 External Device Data STL ABSTRACTION Provider, Abstract NO ADDRESS ON FILE Social History Tobacco Use Types Packs/Day Years Used Date Smoking Tobacco: Former Cigarettes 1 49 1 952 - 2001 Smokeless Tobacco: Never Alcohol Use Standard Drinks/Week Comments Never 0 (1 standard drink = 0.6 oz pur e alcohol) Comments Unknown Sex and Gender Information Value Date Recorded Sex Assigned at Not on file Legal Sex Female 3:33 AM NETWORK ENGINEER Gender Identity Not on file Sexual Orientation Not on file documented as of this encounter Plan of Treatment Upcoming Encounters Date Type Department Care Team (Late st Contact Info) Description 04/04/2025 11:00 AM NETWORK ENGINEER Office Visit [facility] Oncology and Hematology - [place] [address] [place] [address] [address] [place] [address] Prince Mir MD [address] [place] [address] [address] [place] [address] documented as of this encounter Visit Diagnoses Not on filedocumented in this encounter Care Teams Cage Cashier Relationship Specialty Start Date End Date Abrahan Mcgee MD [address] [place] [address] PCP - General Family Practice 04/03/24 documented as of this encounter
--- OUTSIDE RECORDS SUMMARY | 2024-10-05 10:39 | XMS_ITS | Encounter Summary ---
Author Organization [facility] Address [address] [place] [address] Phone Care Team Providers Care Automation Architect Name Role Phone Krishna Medina MD Unavailable [phone] Luigi Nicole Primary Care Provider Lina Yates NP Unavailable [phone] Yogesh Corbett DO Primary Care Provider [phone] Abrahan Mcgee MD Primary Care Provider [phone] Encounter Details Date Type Department Care Team (Late st Contact Info) Description 02/05/2022 Telephone [facility] [address] [facility] 5th [place] [address] [place] [address] Akila Toussaint Social History Tobacco [...] on file Legal 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:42 PM CLAY MODELER Gender Identity Not on file Sexual Orientation Not on file documented as of this encounter Plan of Treatment Not on file documented as of this encounter Visit Diagnoses Not on filedocumented in this encounter Care Teams Automation Architect Relationship Specialty Start Date End Date Luigi Nicole PA [address] [place] [address] [address] [place] [address] PCP - General Physician Health Lead 04/09/21 12/01/23 Yogesh Corbett DO [address] [place] [address] PCP - General Internal Medicine 12/02/23 06/05/24 Abrahan Mcgee MD [address] [place] [address] PCP - General Family Medicine 06/06/24 Krishna Medina MD [address] [address] 03/17/19 Lina Yates NP [address] [place] [address] [address] [place] [address] Nurse Practitioner 11/12/22 documented as of this encounter
--- OUTSIDE RECORDS SUMMARY | 2024-10-05 10:39 | XMS_ITS | Encounter Summary ---
Author Organization [facility] Address [address] [place] [address] Care Team Providers Care Help Aid Name Role Phone Krishna Medina MD Primary Care Provider [phone] Reason for Visit * Diagnostic Imaging (Routine) - Closed Specialty Diagnoses / Procedures Referred By Contac t Referred To Contact Procedures Breast Imaging Screening Outside Reference Aft, Sweta Gleason MD PhD [address] [place] [address] Phone: tel: fax: Referral ID Status Reason Start Date Expiration Date Visits Re quested Visits Authorized [id number] Closed 01/19/2022 02/18/2023 1 1 Encounter Details Date Type Department Care Team (Late st Contact Info) Description 07/23/2017 Hospital Encounter [facility] [address] [place], [place] [id number] Social History Tobacco Use Types Packs/Day Years [...] on file Legal 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:42 PM VEGETABLE LOADER Gender Identity Not on file Sexual [...] CDT) Impressions [facility] - 01/19/2022 10:55 AM VEGETABLE LOADER These images are for Reference purposes only and have not been reviewed by [facility] Radiology. There will be no report generated by a [facility] Radiologist. Narrative [facility] - 01/19/2022 10:55 AM VEGETABLE LOADER EXAMINATION: Images For Reference Purposes Only us Sweta Conteh MD PhD IMG MAMMO PROCEDURES Final Result [facility] documented in this encounter Visit Diagnoses Not on filedocumented in this encounter Care Teams Help Aid Relationship Specialty Start Date End Date Krishna Medina MD [address] [address] PCP - General 10/15/16 03/16/19 documented as of this encounter
--- OUTSIDE RECORDS SUMMARY | 2024-10-05 10:40 | XMS_ITS | Encounter Summary ---
Author Organization [facility] Address [address] [place] [address] Care Team Providers Care Adjunct Professor Of English Name Role Phone Abrahan Mcgee MD Primary Care Provider [phone] Encounter Details Date Type Department Care Team (Latest Contact Info) Description 08/15/2002 Outpatient Historical HIS [facility] ЕКАТЕРИНА Ernst, Andre Guardado MD NO ADDRESS ON FILE JOINT PAIN-L/LEG (Primary Dx) Social History Tobacco Use Types Packs/Day Years Used Date Smoking Tobacco: Never Assessed Comments Unknown Sex and Gender Information Value Date Recorded Sex Assigned at Not on file Legal Sex Female 3:33 AM ADMITTING SUPERVISOR Gender Identity Not on file Sexual Orientation Not on file documented as of this encounter Plan of Treatment Upcoming Encounters Date Type Department Care Team (Late st Contact Info) Description 04/04/2025 11:00 AM ADMITTING SUPERVISOR Office Visit [facility] Oncology and Hematology - [place] [address] [facility] [address] [place] [address] [place] [address] [place] [address] [address] [place] [address] documented as of this encounter Visit Diagnoses Diagnosis Pain in joint, lower leg- Primary documented in this encounter Care Teams Adjunct Professor Of English Relationship Specialty Start Date End Date Abrahan Mcgee MD [address] [place] [address] PCP - General Family Practice 04/03/24 documented as of this encounter
--- OUTSIDE RECORDS SUMMARY | 2024-10-05 10:40 | XMS_ITS | Encounter Summary ---
Author Organization [facility] Address [address] [place] [address] Care Team Providers Care Bag Washer Name Role Phone Abrahan Mcgee MD Primary Care Provider [phone] Encounter Details Date Type Department Care Team (Latest Contact Info) Description 06/05/2004 Outpatient Historical HIS [facility] ЕКАТЕРИНА Ernst, Andre Guardado MD NO ADDRESS ON FILE BENIGN HYPERTENSION (Primary Dx) Social History Tobacco Use Types Packs/Day Years Used Date Smoking Tobacco: Never Assessed Comments Unknown Sex and Gender Information Value Date Recorded Sex Assigned at Not on file Legal Sex Female 3:33 AM BRICK AND BLOCKER AID LABOR Gender Identity Not on file Sexual Orientation Not on file documented as of this encounter Plan of Treatment Upcoming Encounters Date Type Department Care Team (Late st Contact Info) Description 04/04/2025 11:00 AM BRICK AND BLOCKER AID LABOR Office Visit [facility] Oncology and Hematology - [place] [address] [facility] [address] [place] [address] Prince Mir MD [address] [facility] [address] [place] [address] documented as of this encounter [...] Primary documented in this encounter Care Teams Bag Washer Relationship Specialty Start Date End Date Abrahan Mcgee MD [address] [place] [address] PCP - General Family Practice 04/03/24 documented as of this encounter
--- OUTSIDE RECORDS SUMMARY | 2024-10-05 10:40 | XMS_ITS | Encounter Summary ---
Author Organization [facility] Address [address] [place] [address] Care Team Providers Care Land Planner Name Role Phone Abrahan Mcgee MD Primary Care Provider [phone] Encounter Details Date Type Department Care Team (Latest Contact Info) Description 11/19/2003 Outpatient Historical HIS [facility] ЕКАТЕРИНА Ernst, Andre Guardado MD NO ADDRESS ON FILE HYPOPOTASSEMIA (Primary Dx) Social History Tobacco Use Types Packs/Day Years Used Date Smoking Tobacco: Never Assessed Comments Unknown Sex and Gender Information Value Date Recorded Sex Assigned at Not on file Legal Sex Female 3:33 AM BOUNTY TRAPPER Gender Identity Not on file Sexual Orientation Not on file documented as of this encounter Plan of Treatment Upcoming Encounters Date Type Department Care Team (Late st Contact Info) Description 04/04/2025 11:00 AM BOUNTY TRAPPER Office Visit [facility] Oncology and Hematology - [place] [address] [facility] [address] [place] [address] [place] [address] [place] [address] [address] [place] [address] documented as of this encounter Visit Diagnoses Diagnosis Hypopotassemia- Primary documented in this encounter Care Teams Land Planner Relationship Specialty Start Date End Date Abrahan Mcgee MD [address] [place] [address] PCP - General Family Practice 04/03/24 documented as of this encounter
--- OUTSIDE RECORDS SUMMARY | 2024-10-05 10:40 | XMS_ITS | Encounter Summary ---
Author Organization [facility] Address [address] [place] [address] Care Team Providers Care Drum Sander Setter Name Role Phone Abrahan Mcgee MD Primary Care Provider [phone] Encounter Details Date Type Department Care Team (Late st Contact Info) Description 11/27/2002 Outpatient Historical HIS [facility] INTERNISTS Berta Monae MD [address] [place] [address] Social History Tobacco Use Types Packs/Day Years Used Date Smoking Tobacco: Never Assessed Comments Unknown Sex and Gender Information Value Date Recorded Sex Assigned at Not on file Legal Sex Female 3:33 AM MILLER ROD MILL Gender Identity Not on file Sexual Orientation Not on file documented as of this encounter Plan of Treatment Upcoming Encounters Date Type Department Care Team (Late st Contact Info) Description 04/04/2025 11:00 AM MILLER ROD MILL Office Visit [facility] Oncology and Hematology - [place] [address] [place] [address] [address] [place] [address] [place] [address] [place] [address] [address] [place] [address] documented as of this encounter Visit Diagnoses Not on filedocumented in this encounter Care Teams Drum Sander Setter Relationship Specialty Start Date End Date Abrahan Mcgee MD [address] [place] [address] PCP - General Family Practice 04/03/24 documented as of this encounter
--- OUTSIDE RECORDS SUMMARY | 2024-10-05 10:40 | XMS_ITS | Encounter Summary ---
Author Organization [facility] Address [address] [place] [address] Care Team Providers Care Caterer'S Aide Name Role Phone Abrahan Mcgee MD Primary Care Provider [phone] Encounter Details Date Type Department Care Team (Latest Contact Info) Description 11/26/2000 Outpatient Historical HIS [facility] ЕКАТЕРИНА Ernst, Andre Guardado MD NO ADDRESS ON FILE Essential hypertension, benign (Primary Dx) Social History Tobacco Use Types Packs/Day Years Used Date Smoking Tobacco: Never Assessed Comments Unknown Sex and Gender Information Value Date Recorded Sex Assigned at Not on file Legal Sex Female 3:33 AM LABOR RELATIONS OR PERSONNEL NEGOTIATOR Gender Identity Not on file Sexual Orientation Not on file documented as of this encounter Plan of Treatment Upcoming Encounters Date Type Department Care Team (Late st Contact Info) Description 04/04/2025 11:00 AM LABOR RELATIONS OR PERSONNEL NEGOTIATOR Office Visit [facility] Oncology and Hematology - [place] [address] [facility] [address] [place] [address] [place] [address] [place] [address] [address] [place] [address] documented as of this encounter Visit Diagnoses Diagnosis Essential hypertension, benign- Primary documented in this encounter Care Teams Caterer'S Aide Relationship Specialty Start Date End Date Abrahan Mcgee MD [address] [place] [address] PCP - General Family Practice 04/03/24 documented as of this encounter
--- OUTSIDE RECORDS SUMMARY | 2024-10-05 10:40 | XMS_ITS | Encounter Summary ---
Author Organization [facility] Address [address] Attn: Epic Prelude ADT FR[place] SPARROW [address] Care Team Providers Care Building Construction Engineer Name Role Phone Abrahan Mcgee MD Primary Care Provider [phone] Encounter Details Date Type Department Care Team (Late st Contact Info) Description 10/05/1994 Outpatient Historical Andre Ernst MD NO ADDRESS ON FILE Social History Tobacco Use Types Packs/Day Years Used Date Smoking Tobacco: Never Assessed Comments Unknown Sex and Gender Information Value Date Recorded Sex Assigned at Not on file Legal Sex Female 3:33 AM DERRICK FOLLOWER Gender Identity Not on file Sexual Orientation Not on file documented as of this encounter Plan of Treatment Upcoming Encounters Date Type Department Care Team (Late st Contact Info) Description 04/04/2025 11:00 AM DERRICK FOLLOWER Office Visit [facility] Oncology and Hematology - [place] [address] [place] [address] [address] [place] [address] Prince Mir MD [address] [facility] [address] [place] [address] documented as of this encounter Visit Diagnoses Not on filedocumented in this encounter Care Teams Building Construction Engineer Relationship Specialty Start Date End Date Abrahan Mcgee MD [address] [place] [address] PCP - General Family Practice 04/03/24 documented as of this encounter
--- OUTSIDE RECORDS SUMMARY | 2024-10-05 10:40 | XMS_ITS | Encounter Summary ---
Author Organization [facility] Address [address] [place] [address] Care Team Providers Care Mid Wife Name Role Phone Abrahan Mcgee MD Primary Care Provider [phone] Encounter Details Date Type Department Care Team (Late st Contact Info) Description 02/24/2002 Outpatient Historical HIS [facility] INTERNISTS Andre Ernst MD NO ADDRESS ON FILE Social History Tobacco Use Types Packs/Day Years Used Date Smoking Tobacco: Never Assessed Comments Unknown Sex and Gender Information Value Date Recorded Sex Assigned at Not on file Legal Sex Female 3:33 AM MACHINE PRESSER Gender Identity Not on file Sexual Orientation Not on file documented as of this encounter Plan of Treatment Upcoming Encounters Date Type Department Care Team (Late st Contact Info) Description 04/04/2025 11:00 AM MACHINE PRESSER Office Visit [facility] Oncology and Hematology - [place] [address] [place] [address] [address] [place] [address] Prince Mir MD [address] [facility] [address] [place] [address] documented as of this encounter Visit Diagnoses Not on filedocumented in this encounter Care Teams Mid Wife Relationship Specialty Start Date End Date Abrahan Mcgee MD [address] [place] [address] PCP - General Family Practice 04/03/24 documented as of this encounter
--- OUTSIDE RECORDS SUMMARY | 2024-10-05 10:40 | XMS_ITS | Encounter Summary ---
Author Organization [facility] [employer] Address [address] [place] [address] Care Team Providers Care Coverage Specialist Rn Name Role Phone Abrahan Mcgee MD Primary Care Provider [phone] Encounter Details Date Type Department Care Team (Late Contact Info) Description 10/02/2024 Orders Only [facility] Oncology and [facility] [address] [place] [address] Prince Mir MD [facility] [address] [place] [address] Social History Tobacco Use Types Packs/Day Years Used Date Smoking Tobacco: Former Cigarettes 1 49 1 952 - 2001 Smokeless Tobacco: Never Alcohol Use Standard Drinks/Week Comments Never 0 (1 standard drink = 0.6 oz pur e alcohol) Comments Unknown Sex and Gender Information Value Date Recorded Sex Assigned at Not on file Legal Sex Female 3:33 AM WIRE LATHER Gender Identity Not on file Sexual Orientation Not on file documented as of this encounter Plan of Treatment Upcoming Encounters Date Type Department Care Team (Late st Contact Info) Description 04/04/2025 11:00 AM WIRE LATHER Office Visit [facility] Oncology and Hematology [facility] [address] [place] [address] Prince Mir MD [address] [place] [address] documented as of this encounter Procedures Procedure Name Priority Date/Time Associated Diagnosis Comments BASIC METABOLIC PANEL Routine 10/02/2024 12:47 PM CDT CBC WITH AUTODIFFERENTIAL Routine 2024 12:45 PM CDT documented in this encounter Results * BASIC METABOLIC PANEL (10/02/2024 12:47 PM CDT) Blood us Prince Mir MD CHEMISTRY ORDERABLES Final Resu lt * CBC WITH AUTODIFFERENTIAL (10/02/2024 12:45 PM CDT) Blood us Prince Mir MD HEMATOLOGY ORDERABLES Final Res ult documented in this encounter Visit Diagnoses Not on filedocumented in this encounter Care Teams Coverage Specialist Rn Relationship Specialty Start Date End Date Abrahan Mcgee MD [address] [place] [address] PCP - General Family Practice 04/03/24 documented as of this encounter
--- OUTSIDE RECORDS SUMMARY | 2024-10-05 10:40 | XMS_ITS | Encounter Summary ---
Author Organization [facility] Address [address] [place] [address] Care Team Providers Care Veneer Marker Name Role Phone Abrahan Mcgee MD Primary Care Provider [phone] Encounter Details Date Type Department Care Team (Latest Contact Info) Description 03/06/2004 Outpatient Historical HIS [facility] ЕКАТЕРИНА Ernst, Andre Guardado MD NO ADDRESS ON FILE HYPOPOTASSEMIA (Primary Dx) Social History Tobacco Use Types Packs/Day Years Used Date Smoking Tobacco: Never Assessed Comments Unknown Sex and Gender Information Value Date Recorded Sex Assigned at Not on file Legal Sex Female 3:33 AM ORE FEEDER Gender Identity Not on file Sexual Orientation Not on file documented as of this encounter Plan of Treatment Upcoming Encounters Date Type Department Care Team (Late st Contact Info) Description 04/04/2025 11:00 AM ORE FEEDER Office Visit [facility] Oncology and Hematology - [place] [address] [facility] [address] [place] [address] Prince Mir MD [address] [facility] [address] [place] [address] documented as of this encounter Procedures Procedure Name Priority Date/Time Associated Diagnosis Comments COMPREHENSIVE METABOLIC PANEL Routine 03/06/2004 11:12 AM ORE FEEDER documented in this encounter Results * (ABNORMAL) COMPREHENSIVE METABOLIC PANEL (03/06/2004 11:12 AM ORE FEEDER) GLUCOSE 95 65 - 109 mg/dL INTERFACE [...] by 2nd methodology. 03/06/2004 11:1 2 AM ORE FEEDER us Andre Ernst MD CHEMISTRY ORDERABLES Final Res ult INTERFACE SYSTEM Refer to clinic/hospital department documented in this encounter Visit Diagnoses Diagnosis Hypopotassemia- Primary documented in this encounter Care Teams Veneer Marker Relationship Specialty Start Date End Date Abrahan Mcgee MD [address] [place] [address] PCP - General Family Practice 04/03/24 documented as of this encounter
--- OUTSIDE RECORDS SUMMARY | 2024-10-05 10:40 | XMS_ITS | Encounter Summary ---
Author Organization [facility] Address [address] [place] [address] Care Team Providers Care Railway Signal Electrician Name Role Phone Krishna Medina MD Primary Care Provider [phone] Reason for Visit * Diagnostic Imaging (Routine) - Closed Specialty Diagnoses / Procedures Referred By Contac t Referred To Contact Procedures Breast Imaging Screening Outside Reference Aft, Sweta Gleason MD PhD [address] [place] [address] Phone: tel: fax: Referral ID Status Reason Start Date Expiration Date Visits Re quested Visits Authorized [id number] Closed 01/19/2022 02/18/2023 1 1 Encounter Details Date Type Department Care Team (Late st Contact Info) Description 08/26/2018 Hospital Encounter [facility] [address] [place], [place] [id number] Social History Tobacco Use Types Packs/Day Years [...] on file Legal 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:42 PM LEAN SIX SIGMA BLACK BELT Gender Identity Not on file Sexual Orientation [...] CDT) Impressions [facility] - 01/19/2022 11:04 AM LEAN SIX SIGMA BLACK BELT These images are for Reference purposes only and have not been reviewed by [facility]. There will be no report generated by a [facility] Radiologist. Narrative [facility] - 01/19/2022 11:04 AM LEAN SIX SIGMA BLACK BELT EXAMINATION: Images For Reference Purposes Only us Sweta Conteh MD PhD IMG MAMMO PROCEDURES Final Result [facility] documented in this encounter Visit Diagnoses Not on filedocumented in this encounter Care Teams Railway Signal Electrician Relationship Specialty Start Date End Date Krishna Medina MD [address] [address] PCP - General 10/15/16 03/16/19 documented as of this encounter
--- OUTSIDE RECORDS SUMMARY | 2024-10-05 10:40 | XMS_ITS | Encounter Summary ---
Author Organization [facility] Address [address] [place] [address] Care Team Providers Care Utility Supervisor Boat And Plant Name Role Phone Abrahan Mcgee MD Primary Care Provider [phone] Encounter Details Date Type Department Care Team (Latest Contact Info) Description 02/07/2004 Outpatient Historical HIS [facility] ЕКАТЕРИНА Ernst, Andre Guardado MD NO ADDRESS ON FILE BENIGN HYPERTENSION (Primary Dx) Social History Tobacco Use Types Packs/Day Years Used Date Smoking Tobacco: Never Assessed Comments Unknown Sex and Gender Information Value Date Recorded Sex Assigned at Not on file Legal Sex Female 3:33 AM BUSINESS PROCESS ENGINEER Gender Identity Not on file Sexual Orientation Not on file documented as of this encounter Plan of Treatment Upcoming Encounters Date Type Department Care Team (Late st Contact Info) Description 04/04/2025 11:00 AM BUSINESS PROCESS ENGINEER Office Visit [facility] Oncology and Hematology - [place] [address] [place] [address] [address] [place] [address] [place] [address] [place] [address] [address] [place] [address] documented as of this encounter Visit Diagnoses Diagnosis Essential hypertension, benign- Primary documented in this encounter Care Teams Utility Supervisor Boat And Plant Relationship Specialty Start Date End Date Abrahan Mcgee MD [address] [place] [address] PCP - General Family Practice 04/03/24 documented as of this encounter
--- OUTSIDE RECORDS SUMMARY | 2024-10-05 10:40 | XMS_ITS | Encounter Summary ---
Author Organization [facility] Address [address] [place] [address] Care Team Providers Care Butcher Or Smallgoods Maker Name Role Phone Abrahan Mcgee MD Primary Care Provider [phone] Encounter Details Date Type Department Care Team (Latest Contact Info) Description 08/15/2003 Outpatient Historical HIS [facility] ЕКАТЕРИНА Ernst, Andre Guardado MD NO ADDRESS ON FILE HYPOPOTASSEMIA (Primary Dx) Social History Tobacco Use Types Packs/Day Years Used Date Smoking Tobacco: Never Assessed Comments Unknown Sex and Gender Information Value Date Recorded Sex Assigned at Not on file Legal Sex Female 3:33 AM CARPENTER/LABOR Gender Identity Not on file Sexual Orientation Not on file documented as of this encounter Plan of Treatment Upcoming Encounters Date Type Department Care Team (Late st Contact Info) Description 04/04/2025 11:00 AM CARPENTER/LABOR Office Visit [facility] Oncology and Hematology - [place] [address] [facility] [address] [place] [address] [place] [address] [place] [address] [address] [place] [address] documented as of this encounter Visit Diagnoses Diagnosis Hypopotassemia- Primary documented in this encounter Care Teams Butcher Or Smallgoods Maker Relationship Specialty Start Date End Date Abrahan Mcgee MD [address] [place] [address] PCP - General Family Practice 04/03/24 documented as of this encounter
--- OUTSIDE RECORDS SUMMARY | 2024-10-05 10:40 | XMS_ITS | Encounter Summary ---
Author Organization [facility] Address [address] [place] [address] Care Team Providers Care Chicken Handler Name Role Phone Abrahan Mcgee MD Primary Care Provider [phone] Encounter Details Date Type Department Care Team (Latest Contact Info) Description 06/11/2005 Outpatient Historical HIS [facility] ЕКАТЕРИНА Ernst, Andre Guardado MD NO ADDRESS ON FILE Headache (Primary Dx) Social History Tobacco Use Types Packs/Day Years Used Date Smoking Tobacco: Never Assessed Comments Unknown Sex and Gender Information Value Date Recorded Sex Assigned at Not on file Legal Sex Female 3:33 AM PSYCHOLOGIST DEVELOPMENTAL Gender Identity Not on file Sexual Orientation Not on file documented as of this encounter Plan of Treatment Upcoming Encounters Date Type Department Care Team (Late st Contact Info) Description 04/04/2025 11:00 AM PSYCHOLOGIST DEVELOPMENTAL Office Visit [facility] Oncology and Hematology - [place] [address] [facility] [address] [place] [address] Prince Mir MD [address] [facility] [address] [place] [address] documented as of this encounter Procedures Procedure Name Priority Date/Time Associated Diagnosis Comments CBC WITH DIFFERENTIAL Routine 06/11/2005 11:29 AM CDT CBC WITH DIFFERENTIAL Routine 06/11/2005 11:29 AM CDT COMPREHENSIVE METABOLIC PANEL Routine 06/11/2005 11:29 AM CDT documented in this encounter Results * CBC WITH DIFFERENTIAL (06/11/2005 11:29 AM CDT) Pathologist [facility] NEUTROPHILS 65 45 - 70 % INTERFAC [...] ORDERABLES Final Re sult Performing Organization Address [facility] de Phone Number INTERFACE SYSTEM Refer to clinic/hospital department * (ABNORMAL) CBC WITH DIFFERENTIAL (06/11/2005 11:29 AM CDT) [facility] WBC 8.1 4.0 - 9.8 K/uL [...] ORDERABLES Final Re sult Performing Organization Address [facility] de Phone Number INTERFACE SYSTEM Refer [...] Headache documented in this encounter Care Teams Chicken Handler Relationship Specialty Start Date End Date Abrahan Mcgee MD [address] [place] [address] PCP - General Family Practice 04/03/24 documented as of this encounter
--- OUTSIDE RECORDS SUMMARY | 2024-10-05 10:40 | XMS_ITS | Encounter Summary ---
Author Organization [facility] Address [address] [place] [address] Care Team Providers Care Fans Clerk Name Role Phone Abrahan Mcgee MD [...] on file Legal Sex Female 3:33 AM KILN PUSHER Gender Identity Not on file Sexual Orientation Not on file documented as of this encounter Plan of Treatment Upcoming Encounters Date Type Department Care Team (Late st Contact Info) Description 04/04/2025 11:00 AM KILN PUSHER Office Visit [facility] Oncology and Hematology - [place] [address] [facility] [address] [place] [address] [place] [address] [place] [address] [address] [place] [address] documented as of this encounter Visit Diagnoses Diagnosis Unspecified symptom associated with female genital organs- Primary documented in this encounter Care Teams Fans Clerk Relationship Specialty Start Date End Date Abrahan Mcgee MD [address] [place] [address] PCP - General Family Practice 04/03/24 documented as of this encounter
--- OUTSIDE RECORDS SUMMARY | 2024-10-05 10:40 | XMS_ITS | Encounter Summary ---
Author Organization [facility] Address [address] [place] [address] Care Team Providers Care Rn Hematology Name Role Phone Abrahan Mcgee MD Primary Care Provider [phone] Encounter Details Date Type Department Care Team (Late st Contact Info) Description 12/01/2002 Outpatient Historical HIS [facility] DE[facility] Berta Monae MD [address] [place] [address] NONRUPTURED CEREBRAL ANEURYSM (Primary Dx) Social History Tobacco Use Types Packs/Day Years Used Date Smoking Tobacco: Never Assessed Comments Unknown Sex and Gender Information Value Date Recorded Sex Assigned at Not on file Legal Sex Female 3:33 AM ENGAGEMENT SPECIALIST Gender Identity Not on file Sexual Orientation Not on file documented as of this encounter Plan of Treatment Upcoming Encounters Date Type Department Care Team (Late st Contact Info) Description 04/04/2025 11:00 AM ENGAGEMENT SPECIALIST Office Visit [facility] Oncology and Hematology - [place] [address] [facility] [address] [place] [address] Prince Mir MD [address] [facility] [address] [place] [address] documented as of this encounter Visit Diagnoses Diagnosis Cerebral aneurysm, nonruptured- Primary documented in this encounter Care Teams Rn Hematology Relationship Specialty Start Date End Date Abrahan Mcgee MD [address] [place] [address] PCP - General Family Practice 04/03/24 documented as of this encounter
--- OUTSIDE RECORDS SUMMARY | 2024-10-05 10:40 | XMS_ITS | Encounter Summary ---
Author Organization [facility] Address [address] [place] [address] Care Team Providers Care Oreman Name Role Phone Abrahan Mcgee MD Primary Care Provider [phone] Encounter Details Date Type Department Care Team (Latest Contact Info) Description 11/24/2005 Outpatient Historical HIS [facility] ЕКАТЕРИНА Sneed, Oscar Medeiros MD NO ADDRESS ON FILE Other Screening Mammogram (Primary Dx) Social History Tobacco Use Types Packs/Day Years Used Date Smoking Tobacco: Never Assessed Comments Unknown Sex and Gender Information Value Date Recorded Sex Assigned at Not on file Legal Sex Female 3:33 AM EARLY CHILDHOOD EDUCATOR AIDE Gender Identity Not on file Sexual Orientation Not on file documented as of this encounter Plan of Treatment Upcoming Encounters Date Type Department Care Team (Late st Contact Info) Description 04/04/2025 11:00 AM EARLY CHILDHOOD EDUCATOR AIDE Office Visit [facility] Oncology and Hematology - [place] [address] [facility] [address] [place] [address] [place] [address] [place] [address] [address] [place] [address] documented as of this encounter Visit Diagnoses Diagnosis Other screening mammogram- Primary documented in this encounter Care Teams Oreman Relationship Specialty Start Date End Date Abrahan Mcgee MD [address] [place] [address] PCP - General Family Practice 04/03/24 documented as of this encounter
--- OUTSIDE RECORDS SUMMARY | 2024-10-05 10:40 | XMS_ITS | Encounter Summary ---
Author Organization [facility] Address [address] [place] [address] Care Team Providers Care Pediatrician Managing Partner Name Role Phone Abrahan Mcgee MD Primary Care Provider [phone] Encounter Details Date Type Department Care Team (Latest Contact Info) Description 11/04/2001 Outpatient Historical HIS [facility] ЕКАТЕРИНА Ernst, Andre Guardado MD NO ADDRESS ON FILE BENIGN HYPERTENSION (Primary Dx) Social History Tobacco Use Types Packs/Day Years Used Date Smoking Tobacco: Never Assessed Comments Unknown Sex and Gender Information Value Date Recorded Sex Assigned at Not on file Legal Sex Female 3:33 AM CHLOROBUTADIENE SCRUBBER OPERATOR Gender Identity Not on file Sexual Orientation Not on file documented as of this encounter Plan of Treatment Upcoming Encounters Date Type Department Care Team (Late st Contact Info) Description 04/04/2025 11:00 AM CHLOROBUTADIENE SCRUBBER OPERATOR [facility] - [place] [address] [place] [address] [address] [place] [address] [place] [address] [place] [address] [address] [place] [address] documented as of this encounter Visit Diagnoses Diagnosis Essential hypertension, benign- Primary documented in this encounter Care Teams Pediatrician Managing Partner Relationship Specialty Start Date End Date Abrahan Mcgee MD [address] [place] [address] PCP - General Family Practice 04/03/24 documented as of this encounter
--- OUTSIDE RECORDS SUMMARY | 2024-10-05 10:40 | XMS_ITS | Encounter Summary ---
Author Organization [facility] Address [address] [place] [address] Care Team Providers Care Carton Catcher Name Role Phone Abrahan Mcgee MD Primary [...] file Legal Sex Female 3:33 AM PRIMARY TEACHER Gender Identity Not on file Sexual Orientation Not on file documented as of this encounter Plan of Treatment Upcoming Encounters Date Type Department Care Team (Late st Contact Info) Description 04/04/2025 11:00 AM PRIMARY TEACHER Office Visit [facility] Oncology and Hematology - [place] [address] [place] [address] [address] [place] [address] Prince Mir MD [address] [facility] [address] [place] [address] documented as of this encounter Visit Diagnoses Not on filedocumented in this encounter Care Teams Carton Catcher Relationship Specialty Start Date End Date Abrahan Mcgee MD [address] [place] [address] PCP - General Family Practice 04/03/24 documented as of this encounter
--- OUTSIDE RECORDS SUMMARY | 2024-10-05 10:40 | XMS_ITS | Encounter Summary ---
Author Organization [facility] Address [address] [place] [address] Care Team Providers Care Medical Records Assistant Name Role Phone Abrahan Mcgee MD Primary Care Provider [phone] Encounter Details Date Type Department Care Team (Late st Contact Info) Description 11/19/2003 Outpatient Historical HIS [facility] INTERNISTS Andre Ernst MD NO ADDRESS ON FILE Social History Tobacco Use Types Packs/Day Years Used Date Smoking Tobacco: Never Assessed Comments Unknown Sex and Gender Information Value Date Recorded Sex Assigned at Not on file Legal Sex Female 3:33 AM WASH MILL OPERATOR Gender Identity Not on file Sexual Orientation Not on file documented as of this encounter Plan of Treatment Upcoming Encounters Date Type Department Care Team (Late st Contact Info) Description 04/04/2025 11:00 AM WASH MILL OPERATOR Office Visit [facility] Oncology and Hematology - [place] [address] [place] [address] [address] [place] [address] Prince Mir MD [address] [facility] [address] [place] [address] documented as of this encounter Visit Diagnoses Not on filedocumented in this encounter Care Teams Medical Records Assistant Relationship Specialty Start Date End Date Abrahan Mcgee MD [address] [place] [address] PCP - General Family Practice 04/03/24 documented as of this encounter
--- OUTSIDE RECORDS SUMMARY | 2024-10-05 10:40 | XMS_ITS | Encounter Summary ---
Author Organization [facility] Address [address] [place] [address] Care Team Providers Care Compatibility Test Engineer Name Role Phone Abrahan Mcgee MD Primary Care Provider Encounter Details Date Type Department Care Team (Late st Contact Info) Description 11/26/2000 Outpatient Historical HIS [facility] INTERNISTS Andre Ernst MD NO ADDRESS ON FILE Social History Tobacco Use Types Packs/Day Years Used Date Smoking Tobacco: Never Assessed Comments Unknown Sex and Gender Information Value Date Recorded Sex Assigned at Not on file Legal Sex Female 3:33 AM NEWSPAPER MANAGER Gender Identity Not on file Sexual Orientation Not on file documented as of this encounter Plan of Treatment Upcoming Encounters Date Type Department Care Team (Late st Contact Info) Description 04/04/2025 11:00 AM NEWSPAPER MANAGER Office Visit [facility] Oncology and Hematology - [place] [address] [place] [address] [address] [place] [address] Prince Mir MD [address] [facility] [address] [place] [address] documented as of this encounter Visit Diagnoses Not on filedocumented in this encounter Care Teams Compatibility Test Engineer Relationship Specialty Start Date End Date Abrahan Mcgee MD [address] [place] [address] PCP - General Family Practice 04/03/24 documented as of this encounter
--- OUTSIDE RECORDS SUMMARY | 2024-10-05 10:40 | XMS_ITS | Encounter Summary ---
Author Organization [facility] Address [address] [place] [address] Care Team Providers Care System Engineer Name Role Phone Abrahan Mcgee MD Primary Care Provider [phone] Encounter Details Date Type Department Care Team (Latest Contact Info) Description 12/04/2005 Outpatient Historical HIS [facility] ЕКАТЕРИНА Ernst, Andre Guardado MD NO ADDRESS ON FILE Essential Hypertension, Benign (Primary Dx) Social History Tobacco Use Types Packs/Day Years Used Date Smoking Tobacco: Never Assessed Comments Unknown Sex and Gender Information Value Date Recorded Sex Assigned at Not on file Legal Sex Female 3:33 AM OVEN TECHNICIAN Gender Identity Not on file Sexual Orientation Not on file documented as of this encounter Plan of Treatment Upcoming Encounters Date Type Department Care Team (Late st Contact Info) Description 04/04/2025 11:00 AM OVEN TECHNICIAN Office Visit [facility] Oncology and Hematology - [place] [address] [facility] [address] [place] [address] Prince Mir MD 2[address] [facility] [address] [place] [address] documented as [...] Primary documented in this encounter Care Teams System Engineer Relationship Specialty Start Date End Date Abrahan Mcgee MD [address] [place] [address] PCP - General Family Practice 04/03/24 documented as of this encounter
--- OUTSIDE RECORDS SUMMARY | 2024-10-05 10:40 | XMS_ITS | Encounter Summary ---
Author Organization [facility] Address [address] [place] [address] Care Team Providers Care Hooking Machine Operator Name Role Phone Abrahan Mcgee MD Primary Care Provider [phone] Encounter Details Date Type Department Care Team (Latest Contact Info) Description 11/01/2003 Outpatient Historical HIS [facility] ЕКАТЕРИНА Sneed, Oscar Medeiros MD NO ADDRESS ON FILE SCREENING MAMM-MAILG NEOPL-OTHER (Primary Dx) Social History Tobacco Use Types Packs/Day Years Used Date Smoking Tobacco: Never Assessed Comments Unknown Sex and Gender Information Value Date Recorded Sex Assigned at Not on file Legal Sex Female 3:33 AM BRIDGE ENGINEER Gender Identity Not on file Sexual Orientation Not on file documented as of this encounter Plan of Treatment Upcoming Encounters Date Type Department Care Team (Late st Contact Info) Description 04/04/2025 11:00 AM BRIDGE ENGINEER Office Visit [facility] Oncology and Hematology - [place] [address] [place] [address] [address] [place] [address] [place] [address] [place] [address] [address] [place] [address] documented as of this encounter Visit Diagnoses Diagnosis Other screening mammogram- Primary documented in this encounter Care Teams Hooking Machine Operator Relationship Specialty Start Date End Date Abrahan Mcgee MD [address] [place] [address] PCP - General Family Practice 04/03/24 documented as of this encounter
--- OUTSIDE RECORDS SUMMARY | 2024-10-05 10:40 | XMS_ITS | Encounter Summary ---
Author Organization [facility] Address [address] [place] [address] Care Team Providers Care Global Marketing Manager Name Role Phone Abrahan Mcgee MD Primary Care Provider [phone] Encounter Details Date Type Department Care Team (Late st Contact Info) Description 08/15/2003 Outpatient Historical HIS [facility] Meryl Perry MD [address] [address] ABDOMINAL PAIN RUQ (Primary Dx) Social History Tobacco Use Types Packs/Day Years Used Date Smoking Tobacco: Never Assessed Comments Unknown Sex and Gender Information Value Date Recorded Sex Assigned at Not on file Legal Sex Female 3:33 AM MOBILE ELECTRONICS INSTALLER Gender Identity Not on file Sexual Orientation Not on file documented as of this encounter Plan of Treatment Upcoming Encounters Date Type Department Care Team (Late st Contact Info) Description 04/04/2025 11:00 AM MOBILE ELECTRONICS INSTALLER Office Visit [facility] [place] [address] [place] [address] [address] [place] [address] Prince Mir MD [address] [facility] [address] [place] [address] documented as of this encounter Visit Diagnoses Diagnosis Abdominal pain, right upper quadrant- Primary documented in this encounter Care Teams Global Marketing Manager Relationship Specialty Start Date End Date Abrahan Mcgee MD [address] [place] [address] PCP - General Family Practice 04/03/24 documented as of this encounter
--- OUTSIDE RECORDS SUMMARY | 2024-10-05 10:40 | XMS_ITS | Encounter Summary ---
Author Organization [facility] Address [address] [place] [address] Care Team Providers Care Underwriting Intern Name Role Phone Abrahan Mcgee MD Primary Care Provider [phone] Encounter Details Date Type Department Care Team (Latest Contact Info) Description 07/06/2003 Outpatient Historical HIS [facility] ЕКАТЕРИНА Ernst, Andre Guardado MD NO ADDRESS ON FILE BENIGN HYPERTENSION (Primary Dx) Social History Tobacco Use Types Packs/Day Years Used Date Smoking Tobacco: Never Assessed Comments Unknown Sex and Gender Information Value Date Recorded Sex Assigned at Not on file Legal Sex Female 3:33 AM FAN BLADE ALIGNER Gender Identity Not on file Sexual Orientation Not on file documented as of this encounter Plan of Treatment Upcoming Encounters Date Type Department Care Team (Late st Contact Info) Description 04/04/2025 11:00 AM FAN BLADE ALIGNER Office Visit [facility] Oncology and Hematology - [place] [address] [place] [address] [address] [place] [address] [place] [address] [place] [address] [address] [place] [address] documented as of this encounter Visit Diagnoses Diagnosis Essential hypertension, benign- Primary documented in this encounter Care Teams Underwriting Intern Relationship Specialty Start Date End Date Abrahan Mcgee MD [address] [place] [address] PCP - General Family Practice 04/03/24 documented as of this encounter
--- OUTSIDE RECORDS SUMMARY | 2024-10-05 10:40 | XMS_ITS | Encounter Summary ---
Author Organization [facility] Address [address] [place] [address] Care Team Providers Care Firer Marine Name Role Phone Abrahan Mcgee MD Primary Care Provider [phone] Encounter Details Date Type Department Care Team (Late st Contact Info) Description 07/23/2003 Outpatient Historical HIS [facility] DEPT Meryl Perry MD [address] [address] UTERINE LEIOMYOMA NOS (Primary Dx) Social History Tobacco Use Types Packs/Day Years Used Date Smoking Tobacco: Never Assessed Comments Unknown Sex and Gender Information Value Date Recorded Sex Assigned at Not on file Legal Sex Female 3:33 AM WELLNESS TRAINER Gender Identity Not on file Sexual Orientation Not on file documented as of this encounter Plan of Treatment Upcoming Encounters Date Type Department Care Team (Late st Contact Info) Description 04/04/2025 11:00 AM WELLNESS TRAINER Office Visit [facility] Oncology and Hematology - [place] [address] [place] [address] [address] [place] [address] Prince iMr MD [address] [facility] [address] [place] [address] documented as of this encounter Visit Diagnoses Diagnosis Leiomyoma of uterus, unspecified- Primary documented in this encounter Care Teams Firer Marine Relationship Specialty Start Date End Date Abrahan Mcgee MD [address] [place] [address] PCP - General Family Practice 04/03/24 documented as of this encounter
--- OUTSIDE RECORDS SUMMARY | 2024-10-05 10:40 | XMS_ITS | Encounter Summary ---
Author Organization [facility] Address [address] [place] [address] Care Team Providers Care Brake Repairer Air Name Role Phone Abrahan Mcgee MD Primary Care Provider [phone] Encounter Details Date Type Department Care Team (Latest Contact Info) Description 03/16/2002 Outpatient Historical HIS [facility] ЕКАТЕРИНА Ernst, Andre Guardado MD NO ADDRESS ON FILE BENIGN HYPERTENSION (Primary Dx) Social History Tobacco Use Types Packs/Day Years Used Date Smoking Tobacco: Never Assessed Comments Unknown Sex and Gender Information Value Date Recorded Sex Assigned at Not on file Legal Sex Female 3:33 AM SAP BOBJ DEVELOPER Gender Identity Not on file Sexual Orientation Not on file documented as of this encounter Plan of Treatment Upcoming Encounters Date Type Department Care Team (Late st Contact Info) Description 04/04/2025 11:00 AM SAP BOBJ DEVELOPER Office Visit [facility] Oncology and Hematology - [place] [address] [place] [address] [address] [place] [address] [place] [address] [place] [address] [address] [place] [address] documented as of this encounter Visit Diagnoses Diagnosis Essential hypertension, benign- Primary documented in this encounter Care Teams Brake Repairer Air Relationship Specialty Start Date End Date Abrahan Mcgee MD [address] [place] [address] PCP - General Family Practice 04/03/24 documented as of this encounter
--- OUTSIDE RECORDS SUMMARY | 2024-10-05 10:40 | XMS_ITS | Encounter Summary ---
Author Organization [facility] Address [address] [place] [address] Care Team Providers Care City Councilman Name Role Phone Abrahan Mcgee MD Primary Care Provider Encounter Details Date Type Department Care Team (Latest Contact Info) Description 08/15/2004 Outpatient Historical HIS [facility] ЕКАТЕРИНА Ernst, Andre Guardado MD NO ADDRESS ON FILE HYPOPOTASSEMIA (Primary Dx) Social History Tobacco Use Types Packs/Day Years Used Date Smoking Tobacco: Never Assessed Comments Unknown Sex and Gender Information Value Date Recorded Sex Assigned at Not on file Legal Sex Female 3:33 AM ANY COMMODITY BUYER Gender Identity Not on file Sexual Orientation Not on file documented as of this encounter Plan of Treatment Upcoming Encounters Date Type Department Care Team (Late st Contact Info) Description 04/04/2025 11:00 AM ANY COMMODITY BUYER Office Visit [facility] Oncology and Hematology - [place] [address] [facility] 200 [place] [address] Prince Mir MD [address] [facility] [address] [place] [address] documented as of this encounter [...] Primary documented in this encounter Care Teams City Councilman Relationship Specialty Start Date End Date Abrahan Mcgee MD [address] [place] [address] PCP - General Family Practice 04/03/24 documented as of this encounter
--- OUTSIDE RECORDS SUMMARY | 2024-10-05 10:40 | XMS_ITS | Encounter Summary ---
Author Organization [facility] Address [address] [place] [address] Care Team Providers Care Travel Service Consultant Name Role Phone Abrahan Mcgee MD Primary Care Provider Encounter Details Date Type Department Care Team (Late st Contact Info) Description 03/22/2001 Outpatient Historical HIS [facility] INTERNISTS Andre Ernst MD NO ADDRESS ON FILE Social History Tobacco Use Types Packs/Day Years Used Date Smoking Tobacco: Never Assessed Comments Unknown Sex and Gender Information Value Date Recorded Sex Assigned at Not on file Legal Sex Female 3:33 AM RECOVERER Gender Identity Not on file Sexual Orientation Not on file documented as of this encounter Plan of Treatment Upcoming Encounters Date Type Department Care Team (Late st Contact Info) Description 04/04/2025 11:00 AM RECOVERER Office Visit [facility] Oncology and Hematology - [place] [address] [place] [address] [address] [place] [address] Prince Mir MD [address] [facility] [address] [place] [address] documented as of this encounter Visit Diagnoses Not on filedocumented in this encounter Care Teams Travel Service Consultant Relationship Specialty Start Date End Date Abrahan Mcgee MD [address] [place] [address] PCP - General Family Practice 04/03/24 documented as of this encounter
--- OUTSIDE RECORDS SUMMARY | 2024-10-05 10:40 | XMS_ITS | Encounter Summary ---
Author Organization [facility] Address [address] [place] [address] Care Team Providers Care Natural Remedy Consultant Name Role Phone Abrahan Mcgee MD Primary Care Provider Encounter Details Date Type Department Care Team (Late st Contact Info) Description 01/06/2006 Outpatient Historical HIS [facility] INTERNISTS Andre Ernst MD NO ADDRESS ON FILE Social History Tobacco Use Types Packs/Day Years Used Date Smoking Tobacco: Never Assessed Comments Unknown Sex and Gender Information Value Date Recorded Sex Assigned at Not on file Legal Sex Female 3:33 AM FINANCIAL OPERATIONS ANALYST Gender Identity Not on file Sexual Orientation Not on file documented as of this encounter Plan of Treatment Upcoming Encounters Date Type Department Care Team (Late st Contact Info) Description 04/04/2025 11:00 AM FINANCIAL OPERATIONS ANALYST Office Visit [facility] Oncology and Hematology - [place] [address] [place] [address] Dr [address] [place] [address] Prince Mir MD [address] [facility] [address] [place] [address] documented as of this encounter Visit Diagnoses Not on filedocumented in this encounter Care Teams Natural Remedy Consultant Relationship Specialty Start Date End Date Abrahan Mcgee MD [address] [place] [address] PCP - General Family Practice 04/03/24 documented as of this encounter
--- OUTSIDE RECORDS SUMMARY | 2024-10-05 10:40 | XMS_ITS | Encounter Summary ---
Author Organization [facility] Address [address] [place] [address] Care Team Providers Care Mail Processor Name Role Phone Abrahan Mcgee MD Primary Care Provider [phone] Encounter Details Date Type Department Care Team (Latest Contact Info) Description 10/17/2002 Outpatient Historical HIS [facility] ЕКАТЕРИНА Ernst, Andre Guardado MD NO ADDRESS ON FILE PURE HYPERCHOLESTEROLEM (Primary Dx) Social History Tobacco Use Types Packs/Day Years Used Date Smoking Tobacco: Never Assessed Comments Unknown Sex and Gender Information Value Date Recorded Sex Assigned at Not on file Legal Sex Female 3:33 AM RESTAURANT GENERAL MANAGER Gender Identity Not on file Sexual Orientation Not on file documented as of this encounter Plan of Treatment Upcoming Encounters Date Type Department Care Team (Late st Contact Info) Description 04/04/2025 11:00 AM RESTAURANT GENERAL MANAGER Office Visit [facility] Oncology and Hematology - [place] [address] [facility] [address] [place] [address] Prince Mir MD [address] [facility] [address] [place] [address] documented as of this encounter Visit Diagnoses Diagnosis Pure hypercholesterolemia- Primary documented in this encounter Care Teams Mail Processor Relationship Specialty Start Date End Date Abrahan Mcgee MD [address] [place] [address] PCP - General Family Practice 04/03/24 documented as of this encounter
--- OUTSIDE RECORDS SUMMARY | 2024-10-05 10:40 | XMS_ITS | Encounter Summary ---
Author Organization [facility] Address [address] [facility] Attn: Epic Prelude ADT [place] [address] Care Team Providers Care Iron Miner Name Role Phone Abrahan Mcgee MD Primary Care Provider [phone] Encounter Details Date Type Department Care Team (Late st Contact Info) Description 08/08/1993 Outpatient Historical Andre Ernst MD NO ADDRESS ON FILE Social History Tobacco Use Types Packs/Day Years Used Date Smoking Tobacco: Never Assessed Comments Unknown Sex and Gender Information Value Date Recorded Sex Assigned at Not on file Legal Sex Female 3:33 AM KITCHEN HELP HANDYMAN Gender Identity Not on file Sexual Orientation Not on file documented as of this encounter Plan of Treatment Upcoming Encounters Date Type Department Care Team (Late st Contact Info) Description 04/04/2025 11:00 AM KITCHEN HELP HANDYMAN Office Visit [facility] Oncology and Hematology - [place] [address] [place] [address] [address] [place] [address] Prince Mir MD [address] [facility] [address] [place] [address] documented as of this encounter Visit Diagnoses Not on filedocumented in this encounter Care Teams Iron Miner Relationship Specialty Start Date End Date Abrahan Mcgee MD [address] [place] [address] PCP - General Family Practice 04/03/24 documented as of this encounter
--- OUTSIDE RECORDS SUMMARY | 2024-10-05 10:40 | XMS_ITS | Encounter Summary ---
Author Organization [facility] Address [address] [place] [address] Care Team Providers Care Barrel Finisher Name Role Phone Abrahan Mcgee MD Primary Care Provider Encounter Details Date Type Department Care Team (Late st Contact Info) Description 02/07/2004 Outpatient Historical HIS [facility] INTERNISTS Andre Ernst MD NO ADDRESS ON FILE Social History Tobacco Use Types Packs/Day Years Used Date Smoking Tobacco: Never Assessed Comments Unknown Sex and Gender Information Value Date Recorded Sex Assigned at Not on file Legal Sex Female 3:33 AM CHARGEMASTER SPECIALIST Gender Identity Not on file Sexual Orientation Not on file documented as of this encounter Plan of Treatment Upcoming Encounters Date Type Department Care Team (Late st Contact Info) Description 04/04/2025 11:00 AM CHARGEMASTER SPECIALIST Office Visit [facility] Oncology and Hematology - [place] [address] [place] [address] [address] [place] [address] Prince Mir MD [address] [facility] [address] [place] [address] documented as of this encounter Visit Diagnoses Not on filedocumented in this encounter Care Teams Barrel Finisher Relationship Specialty Start Date End Date Abrahan Mcgee MD [address] [place] [address] PCP - General Family Practice 04/03/24 documented as of this encounter
--- OUTSIDE RECORDS SUMMARY | 2024-10-05 10:40 | XMS_ITS | Encounter Summary ---
Author Organization [facility] Address [address] [place] [address] Care Team Providers Care Cable Television Program Director Name Role Phone Abrahan Mcgee MD Primary Care Provider [phone] Encounter Details Date Type Department Care Team (Latest Contact Info) Description 01/06/2006 Outpatient Historical HIS [facility] ЕКАТЕРИНА Ernst, Andre Guardado MD NO ADDRESS ON FILE Cervicalgia (Primary Dx) Social History Tobacco Use Types Packs/Day Years Used Date Smoking Tobacco: Never Assessed Comments Unknown Sex and Gender Information Value Date Recorded Sex Assigned at Not on file Legal Sex Female 3:33 AM PROFESSOR OF PRACTICE Gender Identity Not on file Sexual Orientation Not on file documented as of this encounter Plan of Treatment Upcoming Encounters Date Type Department Care Team (Late st Contact Info) Description 04/04/2025 11:00 AM PROFESSOR OF PRACTICE Office Visit [facility] Oncology and Hematology - [place] [address] [place] [address] [address] [place] [address] Prince Mir MD [address] [facility] [address] [place] [address] documented as of this encounter Visit Diagnoses Diagnosis Cervicalgia- Primary documented in this encounter Care Teams Cable Television Program Director Relationship Specialty Start Date End Date Abrahan Mcgee MD [address] [place] [address] PCP - General Family Practice 04/03/24 documented as of this encounter
--- OUTSIDE RECORDS SUMMARY | 2024-10-05 10:40 | XMS_ITS | Encounter Summary ---
Author Organization [facility] Address [address] [place] [address] Care Team Providers Care Press Tender Name Role Phone Abrahan Mcgee MD Primary Care Provider Encounter Details Date Type Department Care Team (Late st Contact Info) Description 12/04/2005 Outpatient Historical HIS [facility] INTERNISTS Andre Ernst MD NO ADDRESS ON FILE Social History Tobacco Use Types Packs/Day Years Used Date Smoking Tobacco: Never Assessed Comments Unknown Sex and Gender Information Value Date Recorded Sex Assigned at Not on file Legal Sex Female 3:33 AM KRAFT DIGESTER OPERATOR Gender Identity Not on file Sexual Orientation Not on file documented as of this encounter Plan of Treatment Upcoming Encounters Date Type Department Care Team (Late st Contact Info) Description 04/04/2025 11:00 AM KRAFT DIGESTER OPERATOR Office Visit [facility] Oncology and Hematology - [place] [address] [place] [address] [address] [place] [address] Prince Mir MD [address] [facility] [address] [place] [address] documented as of this encounter Visit Diagnoses Not on filedocumented in this encounter Care Teams Press Tender Relationship Specialty Start Date End Date Abrahan Mcgee MD [address] [place] [address] PCP - General Family Practice 04/03/24 documented as of this encounter
--- OUTSIDE RECORDS SUMMARY | 2024-10-05 10:40 | XMS_ITS | Encounter Summary ---
Author Organization [facility] Address [address] [place] [address] Care Team Providers Care Programmer Operator Numerical Control Name Role Phone Abarhan Mcgee MD Primary Care Provider [phone] Encounter Details Date Type Department Care Team (Latest Contact Info) Description 10/29/2000 Outpatient Historical HIS [facility] ЕКАТЕРИНА Ernst, Andre Guardado MD NO ADDRESS ON FILE Backache, unspecified (Primary Dx) Social History Tobacco Use Types Packs/Day Years Used Date Smoking Tobacco: Never Assessed Comments Unknown Sex and Gender Information Value Date Recorded Sex Assigned at Not on file Legal Sex Female 3:33 AM MINE MOTOR OPERATOR Gender Identity Not on file Sexual Orientation Not on file documented as of this encounter Plan of Treatment Upcoming Encounters Date Type Department Care Team (Late st Contact Info) Description 04/04/2025 11:00 AM MINE MOTOR OPERATOR Office Visit [facility] Oncology and Hematology - [place] [address] [facility] [address] [place] [address] Prince Mir MD [address] [facility] [address] [place] [address] documented as of this encounter Visit Diagnoses Diagnosis Backache, unspecified- Primary documented in this encounter Care Teams Programmer Operator Numerical Control Relationship Specialty Start Date End Date Abrahan Mcgee MD [address] [place] [address] PCP - General Family Practice 04/03/24 documented as of this encounter
--- OUTSIDE RECORDS SUMMARY | 2024-10-05 10:40 | XMS_ITS | Encounter Summary ---
Author Organization [facility] Address [address] [place] [address] Care Team Providers Care Middle [employer] Resource Teacher Name Role Phone Abrahan Mcgee [...] on file Legal Sex Female 3:33 AM FINANCE INTERN Gender Identity Not on file Sexual Orientation Not on file documented as of this encounter Plan of Treatment Upcoming Encounters Date Type Department Care Team (Late st Contact Info) Description 04/04/2025 11:00 AM FINANCE INTERN Office Visit [facility] Oncology and Hematology - [address] [place] [address] Prince Mir MD [address] [place] [address] [address] [place] [address] documented as of this encounter Visit Diagnoses Diagnosis Open wound of scalp, without mention of complication- Primary documented in this encounter Care Teams Middle School Resource Teacher Relationship Specialty Start Date End Date Abrahan Mcgee MD [address] [place] [address] PCP - General Family Practice 04/03/24 documented as of this encounter
--- OUTSIDE RECORDS SUMMARY | 2024-10-05 10:40 | XMS_ITS | Encounter Summary ---
Author Organization [facility] Address [address] [place] [address] Care Team Providers Care Press Clipper Name Role Phone Abrahan Mcgee MD Primary Care Provider [phone] Encounter Details Date Type Department Care Team (Late st Contact Info) Description 03/16/2002 Outpatient Historical HIS [facility]ISTS Andre Ernst MD NO ADDRESS ON FILE Social History Tobacco Use Types Packs/Day Years Used Date Smoking Tobacco: Never Assessed Comments Unknown Sex and Gender Information Value Date Recorded Sex Assigned at Not on file Legal Sex Female 3:33 AM STOCK LIFTER Gender Identity Not on file Sexual Orientation Not on file documented as of this encounter Plan of Treatment Upcoming Encounters Date Type Department Care Team (Late st Contact Info) Description 04/04/2025 11:00 AM STOCK LIFTER Office Visit [facility] Oncology and Hematology - [place] [address] [place] [address] [address] [place] [address] Prince Mir MD [address] [facility] [address] [place] [address] documented as of this encounter Visit Diagnoses Not on filedocumented in this encounter Care Teams Press Clipper Relationship Specialty Start Date End Date Abrahan Mcgee MD [address] [place] [address] PCP - General Family Practice 04/03/24 documented as of this encounter
--- OUTSIDE RECORDS SUMMARY | 2024-10-05 10:40 | XMS_ITS | Encounter Summary ---
Author Organization [facility] Address [address] [place] [address] Care Team Providers Care Unit Reactor Operator Name Role Phone Abrahan Mcgee MD Primary Care Provider [phone] Encounter Details Date Type Department Care Team (Latest Contact Info) Description 02/24/2002 Outpatient Historical HIS [facility] ЕКАТЕРИНА Ernst, Andre Guardado MD NO ADDRESS ON FILE CHRONIC SINUSITIS NOS (Primary Dx) Social History Tobacco Use Types Packs/Day Years Used Date Smoking Tobacco: Never Assessed Comments Unknown Sex and Gender Information Value Date Recorded Sex Assigned at Not on file Legal Sex Female 3:33 AM ADVANCED MANUFACTURING ASSOCIATE Gender Identity Not on file Sexual Orientation Not on file documented as of this encounter Plan of Treatment Upcoming Encounters Date Type Department Care Team (Late st Contact Info) Description 04/04/2025 11:00 AM ADVANCED MANUFACTURING ASSOCIATE Office Visit [facility] Oncology and Hematology - [place] [address] [facility] [address] [place] [address] Prince Mir MD [address] [facility] [address] [place] [address] documented as of this encounter Visit Diagnoses Diagnosis Unspecified sinusitis (chronic)- Primary documented in this encounter Care Teams Unit Reactor Operator Relationship Specialty Start Date End Date Abrahan Mcgee MD [address] [place] [address] PCP - General Family Practice 04/03/24 documented as of this encounter
--- OUTSIDE RECORDS SUMMARY | 2024-10-05 10:40 | XMS_ITS | Encounter Summary ---
Author Organization [facility] Address [address] [place] [address] Care Team Providers Care Drawbridge Operator Name Role Phone Abrahan Mcgee MD Primary Care Provider Encounter Details Date Type Department Care Team (Late st Contact Info) Description 10/29/2000 Outpatient Historical HIS [facility] Andre Ernst MD NO ADDRESS ON FILE Social History Tobacco Use Types Packs/Day Years Used Date Smoking Tobacco: Never Assessed Comments Unknown Sex and Gender Information Value Date Recorded Sex Assigned at Not on file Legal Sex Female 3:33 AM MORTAR MIXER Gender Identity Not on file Sexual Orientation Not on file documented as of this encounter Plan of Treatment Upcoming Encounters Date Type Department Care Team (Late st Contact Info) Description 04/04/2025 11:00 AM MORTAR MIXER Office Visit [facility] Oncology and Hematology - [place] [address] [place] [address] [address] [place] [address] Prince Mir MD [address] [facility] [address] [place] [address] documented as of this encounter Visit Diagnoses Not on filedocumented in this encounter Care Teams Drawbridge Operator Relationship Specialty Start Date End Date Abrahan Mcgee MD [address] [place] [address] PCP - General Family Practice 04/03/24 documented as of this encounter
--- OUTSIDE RECORDS SUMMARY | 2024-10-05 10:40 | XMS_ITS | Encounter Summary ---
Author Organization [facility] Address [address] [place] [address] Care Team Providers Care Hog Operator Name Role Phone Abrahan Mcgee MD [...] on file Legal Sex Female 3:33 AM CHEMICAL TESTER Gender Identity Not on file Sexual Orientation Not on file documented as of this encounter Plan of Treatment Upcoming Encounters Date Type Department Care Team (Late st Contact Info) Description 04/04/2025 11:00 AM CHEMICAL TESTER Office Visit [facility] Oncology and Hematology - [address] [place] [address] Prince Mir MD [address] [facility] [address] [place] [address] documented as of this encounter Visit Diagnoses Diagnosis Headache(784.0)- Primary Headache documented in this encounter Care Teams Hog Operator Relationship Specialty Start Date End Date Abrahan Mcgee MD [address] [place] [address] PCP - General Family Practice 04/03/24 documented as of this encounter
--- OUTSIDE RECORDS SUMMARY | 2024-10-05 10:40 | XMS_ITS | Encounter Summary ---
Author Organization [facility] Address [address] [facility] Attn: Epic Prelude ADT [place] [address] Care Team Providers Care Rn Pain Management Name Role Phone Abrahan Mcgee MD Primary Care Provider [phone] Encounter Details Date Type Department Care Team (Late st Contact Info) Description 08/03/1994 Outpatient Historical Andre Ernst MD NO ADDRESS ON FILE Social History Tobacco Use Types Packs/Day Years Used Date Smoking Tobacco: Never Assessed Comments Unknown Sex and Gender Information Value Date Recorded Sex Assigned at Not on file Legal Sex Female 3:33 AM TOXICS PROGRAM OFFICER Gender Identity Not on file Sexual Orientation Not on file documented as of this encounter Plan of Treatment Upcoming Encounters Date Type Department Care Team (Late st Contact Info) Description 04/04/2025 11:00 AM TOXICS PROGRAM OFFICER Office Visit [facility] Oncology and Hematology - [place] [address] [place] [address] [address] [place] [address] Prince Mir MD [address] [facility] [address] [place] [address] documented as of this encounter Visit Diagnoses Not on filedocumented in this encounter Care Teams Rn Pain Management Relationship Specialty Start Date End Date Abrahan Mcgee MD [address] [place] [address] PCP - General Family Practice 04/03/24 documented as of this encounter
--- OUTSIDE RECORDS SUMMARY | 2024-10-05 10:40 | XMS_ITS | Encounter Summary ---
Author Organization [facility] Address [address] [place] [address] Care Team Providers Care Senior Technical Architect Name Role Phone Abrahan Mcgee MD Primary Care Provider [phone] Encounter Details Date Type Department Care Team (Late Contact Info) Description 02/24/2005 Outpatient Historical [facility] [address] [place] [address] Alcon Valadez MD [address] [place] [address] Social History Tobacco Use Types Packs/Day Years Used Date Smoking Tobacco: Never Assessed Comments Unknown Sex and Gender Information Value Date Recorded Sex Assigned at Not on file Legal Sex Female 3:33 AM EMERGENCY SERVICES DISPATCHER Gender Identity Not on file Sexual Orientation Not on file documented as of this encounter Plan of Treatment Upcoming Encounters Date Type Department Care Team (Late st Contact Info) Description 04/04/2025 11:00 AM EMERGENCY SERVICES DISPATCHER Office Visit [facility] Oncology and Hematology - [place] [address] [facility] [address] [place] [address] Prince Mir MD [address] [facility] [address] [place] [address] documented as of this encounter Visit Diagnoses Not on filedocumented in this encounter Care Teams Senior Technical Architect Relationship Specialty Start Date End Date Abrahan Mcgee MD [address] [place] [address] PCP - General Family Practice 04/03/24 documented as of this encounter
--- OUTSIDE RECORDS SUMMARY | 2024-10-05 10:40 | XMS_ITS | Encounter Summary ---
Author Organization [facility] Address [address] [facility] Attn: Epic Prelude ADT [place] [address] Care Team Providers Care Etl Software Engineer Name Role Phone Abrahan Mcgee MD Primary Care Provider [phone] Encounter Details Date Type Department Care Team (Late st Contact Info) Description 08/03/1994 Outpatient Historical Andre Ernst MD NO ADDRESS ON FILE Social History Tobacco Use Types Packs/Day Years Used Date Smoking Tobacco: Never Assessed Comments Unknown Sex and Gender Information Value Date Recorded Sex Assigned at Not on file Legal Sex Female 3:33 AM NATURAL GAS PLANT TECHNICIAN Gender Identity Not on file Sexual Orientation Not on file documented as of this encounter Plan of Treatment Upcoming Encounters Date Type Department Care Team (Late st Contact Info) Description 04/04/2025 11:00 AM NATURAL GAS PLANT TECHNICIAN Office Visit [facility] Oncology and Hematology - [place] [address] [place] [address] [address] [place] [address] Prince Mir MD [address] [facility] [address] [place] [address] documented as of this encounter Visit Diagnoses Not on filedocumented in this encounter Care Teams Etl Software Engineer Relationship Specialty Start Date End Date Abrahan Mcgee MD [address] [place] [address] PCP - General Family Practice 04/03/24 documented as of this encounter
--- OUTSIDE RECORDS SUMMARY | 2024-10-05 10:40 | XMS_ITS | Encounter Summary ---
Author Organization [facility] Address [address] [place] [address] Care Team Providers Care President & Founder Name Role Phone Abrahan Mcgee MD Primary Care Provider Encounter Details Date Type Department Care Team (Late st Contact Info) Description 06/05/2004 Outpatient Historical HIS [facility] Andre Ernst MD NO ADDRESS ON FILE Social History Tobacco Use Types Packs/Day Years Used Date Smoking Tobacco: Never Assessed Comments Unknown Sex and Gender Information Value Date Recorded Sex Assigned at Not on file Legal Sex Female 3:33 AM STRATEGY CONSULTANT Gender Identity Not on file Sexual Orientation Not on file documented as of this encounter Plan of Treatment Upcoming Encounters Date Type Department Care Team (Late st Contact Info) Description 04/04/2025 11:00 AM STRATEGY CONSULTANT Office Visit [facility] Oncology and Hematology - [place] [address] [place] [address] [address] [place] [address] Prince Mir MD [address] [facility] [address] [place] [address] documented as of this encounter Visit Diagnoses Not on filedocumented in this encounter Care Teams President & Founder Relationship Specialty Start Date End Date Abrahan Mcgee MD [address] [place] [address] PCP - General Family Practice 04/03/24 documented as of this encounter
--- OUTSIDE RECORDS SUMMARY | 2024-10-05 10:40 | XMS_ITS | Encounter Summary ---
Author Organization [facility] Address [address] [place] [address] Care Team Providers Care Manager Regional Name Role Phone Abrahan Mcgee MD Primary Care Provider [phone] Encounter Details Date Type Department Care Team (Late st Contact Info) Description 08/03/2001 Outpatient Historical HIS [facility] Berta Monae MD [address] [place] [address] Social History Tobacco Use Types Packs/Day Years Used Date Smoking Tobacco: Never Assessed Comments Unknown Sex and Gender Information Value Date Recorded Sex Assigned at Not on file Legal Sex Female 3:33 AM RN PACU Gender Identity Not on file Sexual Orientation Not on file documented as of this encounter Plan of Treatment Upcoming Encounters Date Type Department Care Team (Late st Contact Info) Description 04/04/2025 11:00 AM RN PACU Office Visit [facility] Oncology and Hematology - [place] [address] [place] [address] [address] [place] [address] [place] [address] [place] [address] [address] [place] [address] documented as of this encounter Visit Diagnoses Not on filedocumented in this encounter Care Teams Manager Regional Relationship Specialty Start Date End Date Abrahan Mcgee MD [address] [place] [address] PCP - General Family Practice 04/03/24 documented as of this encounter
--- OUTSIDE RECORDS SUMMARY | 2024-10-05 10:40 | XMS_ITS | Encounter Summary ---
Author Organization [facility] Address [address] [place] [address] Care Team Providers Care Addiction Counselor Name Role Phone Abrahan Mcgee MD Primary Care Provider [phone] Encounter Details Date Type Department Care Team (Late st Contact Info) Description 08/15/2002 Outpatient Historical HIS [facility] INTERN[facility] Andre Ernst MD NO ADDRESS ON FILE Social History Tobacco Use Types Packs/Day Years Used Date Smoking Tobacco: Never Assessed Comments Unknown Sex and Gender Information Value Date Recorded Sex Assigned at Not on file Legal Sex Female 3:33 AM MERINGUER Gender Identity Not on file Sexual Orientation Not on file documented as of this encounter Plan of Treatment Upcoming Encounters Date Type Department Care Team (Late st Contact Info) Description 04/04/2025 11:00 AM MERINGUER Office Visit [facility] Oncology and Hematology - [place] [address] [place] [address] [address] [place] [address] Prince Mir MD [address] [facility] [address] [place] [address] documented as of this encounter Visit Diagnoses Not on filedocumented in this encounter Care Teams Addiction Counselor Relationship Specialty Start Date End Date Abrahan Mcgee MD [address] [place] [address] PCP - General Family Practice 04/03/24 documented as of this encounter
--- OUTSIDE RECORDS SUMMARY | 2024-10-05 10:40 | XMS_ITS | Encounter Summary ---
Author Organization [facility] Address [address] [place] [address] Care Team Providers Care Ict Support Technicians Name Role Phone Abrahan Mcgee MD Primary Care Provider [phone] Encounter Details Date Type Department Care Team (Latest Contact Info) Description 03/22/2001 Outpatient Historical HIS [facility] ЕКАТЕРИНА Ernst, Andre Guardado MD NO ADDRESS ON FILE BENIGN HYPERTENSION (Primary Dx) Social History Tobacco Use Types Packs/Day Years Used Date Smoking Tobacco: Never Assessed Comments Unknown Sex and Gender Information Value Date Recorded Sex Assigned at Not on file Legal Sex Female 3:33 AM HISTORIC PRESERVATIONIST Gender Identity Not on file Sexual Orientation Not on file documented as of this encounter Plan of Treatment Upcoming Encounters Date Type Department Care Team (Late st Contact Info) Description 04/04/2025 11:00 AM HISTORIC PRESERVATIONIST Office Visit [facility] Oncology and Hematology - [place] [address] [place] [address] [address] [place] [address] [place] [address] [place] [address] [address] [place] [address] documented as of this encounter Visit Diagnoses Diagnosis Essential hypertension, benign- Primary documented in this encounter Care Teams Ict Support Technicians Relationship Specialty Start Date End Date Abrahan Mcgee MD [address] [place] [address] PCP - General Family Practice 04/03/24 documented as of this encounter
--- OUTSIDE RECORDS SUMMARY | 2024-10-05 10:40 | XMS_ITS | Continuity of Care Document ---
Author Organization [facility] Address [address] [place] [address] Phone Care Team Providers Care Artificial Breeding Distributor Name Role Phone Jerman Ramos MD Unavailable Unavailable Allergies, Adverse Reactions, Alerts Substance Reaction Status Criticality codeine GI problems Active No Information Medications Medication Instructions Dosage Effective Dates (start - stop) Status Comments fexofenadine 180 mg Tab take 1 tablet (1 80MG) by oral route every day 180 MG - Active fluticasone 50 mcg/actuation Nasal Mark, Susp spray 2 spray (100MCG) by intranasal [...] Diagnoses Date Provider Providers Copied on Encounter [facility], [address], [place], [place], [id number] , [place] tel: [phone] [facility] No Information 9 Richard Stoll. [address], [address], [place], [address], [place]. tel: [phone] [facility], [address], [place], [place], [id number] , [place] tel: [phone] [facility] Pancreatic cyst Apr-2 9 Richard Stoll. [address], [address], [place], [address], [place]. tel: [phone] [facility], [address], [place], [place], [id number] , [place] tel: [phone] [facility] due to drugs and medicines taken internallyAllergic rhinitis, cause unspecified Apr-3 0 2 Berry Calderon. [address] [place] [address], [address], [id number] , . tel: [phone] Referring Provider: Kvng Smart, [address] [place] [address], [address] . tel:[phone] Family History Family Member Type Diagnosis Age At Onset Sister Problem (finding) Allergies Payers Payer name Insurance type Covered alliance party ID Authoriza tion(s) No Information Social History [...]
--- OUTSIDE RECORDS SUMMARY | 2024-10-05 10:40 | XMS_ITS | Encounter Summary ---
Author Organization [facility] Address [address] [place] [address] Care Team Providers Care Skin Installer Name Role Phone Abrahan Mcgee MD Primary Care Provider [phone] Encounter Details Date Type Department Care Team (Late st Contact Info) Description 04/12/2002 Outpatient Historical [facility] Andre Ernst MD NO ADDRESS ON FILE DIAPHRAGMATIC HERNIA (Primary Dx) Social History Tobacco Use Types Packs/Day Years Used Date Smoking Tobacco: Never Assessed Comments Unknown Sex and Gender Information Value Date Recorded Sex Assigned at Not on file Legal Sex Female 3:33 AM ELECTRONIC HEALTH RECORDS SPECIALIST Gender Identity Not on file Sexual Orientation Not on file documented as of this encounter Plan of Treatment Upcoming Encounters Date Type Department Care Team (Late st Contact Info) Description 04/04/2025 11:00 AM ELECTRONIC HEALTH RECORDS SPECIALIST Office Visit [facility] Oncology and Hematology - [place] [address] [place] [address] [address] [place] [address] [place] [address] [place] [address] [address] [place] [address] documented as of this encounter Visit Diagnoses Diagnosis Diaphragmatic hernia without mention of obstruction or gangrene- Primary documented in this encounter Care Teams Skin Installer Relationship Specialty Start Date End Date Abrahan Mcgee MD [address] [place] [address] PCP - General Family Practice 04/03/24 documented as of this encounter
--- OUTSIDE RECORDS SUMMARY | 2024-10-05 10:40 | XMS_ITS | Encounter Summary ---
Author Organization [facility] Address [address] [place] [address] Care Team Providers Care Real Estate Intern Name Role Phone Abrahan Mcgee MD Primary Care Provider [phone] Encounter Details Date Type Department Care Team (Late st Contact Info) Description 02/24/2005 Outpatient Historical [facility] Support Serv. (Adt Cardiology-SJ) [address] [place] [id number] Carmine Morales MD NO ADDRESS ON FILE Social History Tobacco Use Types Packs/Day Years Used Date Smoking Tobacco: Never Assessed Comments Unknown Sex and Gender Information Value Date Recorded Sex Assigned at Not on file Legal Sex Female 3:33 AM STONE DERRICKMAN AND RIGGER Gender Identity Not on file Sexual Orientation Not on file documented as of this encounter Plan of Treatment Upcoming Encounters Date Type Department Care Team (Late st Contact Info) Description 04/04/2025 11:00 AM STONE DERRICKMAN AND RIGGER Office Visit [facility] Oncology and Hematology - [place] [address] [place] [address] [address] [place] [address] Prince Mir MD [address] [facility] [address] [place] [address] documented as of this encounter Visit Diagnoses Not on filedocumented in this encounter Care Teams Real Estate Intern Relationship Specialty Start Date End Date Abrahan Mcgee MD [address] [place] [address] PCP - General Family Practice 04/03/24 documented as of this encounter
--- OUTSIDE RECORDS SUMMARY | 2024-10-05 10:40 | XMS_ITS | Encounter Summary ---
Author Organization [facility] Address [address] [place] [address] Care Team Providers Care Survival Specialist Name Role Phone Abrahan Mcgee MD Primary Care Provider Encounter Details Date Type Department Care Team (Late st Contact Info) Description 07/06/2003 Outpatient Historical HIS [facility] INTERNISTS Andre Ernst MD NO ADDRESS ON FILE Social History Tobacco Use Types Packs/Day Years Used Date Smoking Tobacco: Never Assessed Comments Unknown Sex and Gender Information Value Date Recorded Sex Assigned at Not on file Legal Sex Female 3:33 AM HAND CELL TUBER Gender Identity Not on file Sexual Orientation Not on file documented as of this encounter Plan of Treatment Upcoming Encounters Date Type Department Care Team (Late st Contact Info) Description 04/04/2025 11:00 AM HAND CELL TUBER Office Visit [facility] Oncology and Hematology - [place] [address] [place] [address] [address] [place] [address] Prince Mir MD [address] [facility] [address] [place] [address] documented as of this encounter Visit Diagnoses Not on filedocumented in this encounter Care Teams Survival Specialist Relationship Specialty Start Date End Date Abrahan Mcgee MD [address] [place] [address] PCP - General Family Practice 04/03/24 documented as of this encounter
--- OUTSIDE RECORDS SUMMARY | 2024-10-05 10:40 | XMS_ITS | Encounter Summary ---
Author Organization [facility] Address [address] [place] [address] Care Team Providers Care Kettle Coordinator Name Role Phone Abrahan Mcgee MD Primary Care Provider [phone] Encounter Details Date Type Department Care Team (Late st Contact Info) Description 11/04/2001 Outpatient Historical HIS [facility] INTERNISTS Andre Ernst MD NO ADDRESS ON FILE Social History Tobacco Use Types Packs/Day Years Used Date Smoking Tobacco: Never Assessed Comments Unknown Sex and Gender Information Value Date Recorded Sex Assigned at Not on file Legal Sex Female 3:33 AM CV TECH Gender Identity Not on file Sexual Orientation Not on file documented as of this encounter Plan of Treatment Upcoming Encounters Date Type Department Care Team (Late st Contact Info) Description 04/04/2025 11:00 AM CV TECH Office Visit [facility] Oncology and Hematology - [place] [address] [place] [address] [address] [place] [address] Prince Mir MD [address] [facility] [address] [place] [address] documented as of this encounter Visit Diagnoses Not on filedocumented in this encounter Care Teams Kettle Coordinator Relationship Specialty Start Date End Date Abrahan Mcgee MD [address] [place] [address] PCP - General Family Practice 04/03/24 documented as of this encounter
--- OUTSIDE RECORDS SUMMARY | 2024-10-05 10:40 | XMS_ITS | Encounter Summary ---
Author Organization [facility] Related Content Database (RCDb) Address [address] [place] [address] Care Team Providers Care Certified Green Building Engineer Name Role Phone Abrahan Mcgee MD Primary Care Provider [phone] Encounter Details Date Type Department Care Team (Late Contact Info) Description 10/03/2024 Orders Only [facility] Oncology and [facility] [address] [place] [address] Prince Mir MD [facility] [address] [place] [address] Social History Tobacco Use Types Packs/Day Years Used Date Smoking Tobacco: Former Cigarettes 1 49 1 952 - 2001 Smokeless Tobacco: Never Alcohol Use Standard Drinks/Week Comments Never 0 (1 standard drink = 0.6 oz pur e alcohol) Comments Unknown Sex and Gender Information Value Date Recorded Sex Assigned at Not on file Legal Sex Female 3:33 AM GAMMA OPERATOR Gender Identity Not on file Sexual Orientation Not on file documented as of this encounter Plan of Treatment Upcoming Encounters Date Type Department Care Team (Late st Contact Info) Description 04/04/2025 11:00 AM GAMMA OPERATOR Office Visit [facility] Oncology and Hematology [facility] [address] [place] [address] Prince Mir MD [address] [place] [address] documented as of this encounter Procedures Procedure Name Priority Date/Time Associated Diagnosis Comments COMPREHENSIVE METABOLIC PANEL Routine 10/02/2024 11:27 AM CDT documented in this encounter Results * COMPREHENSIVE METABOLIC PANEL (10/02/2024 11:27 AM CDT) Blood us Prince Mir MD CHEMISTRY ORDERABLES Final Resu lt documented in this encounter Visit Diagnoses Not on filedocumented in this encounter Care Teams Certified Green Building Engineer Relationship Specialty Start Date End Date Abrahan Mcgee MD [address] [place] [address] PCP - General Family Practice 04/03/24 documented as of this encounter
--- OUTSIDE RECORDS SUMMARY | 2024-10-05 10:40 | XMS_ITS | Encounter Summary ---
Author Organization [facility] Address [address] [place] [address] Care Team Providers Care Molding Machine Tender Name Role Phone Abrahan Mcgee MD Primary Care Provider [phone] Encounter Details Date Type Department Care Team (Late st Contact Info) Description 07/30/2005 Outpatient Historical HIS [facility] INTERNISTS Andre Ernst MD NO ADDRESS ON FILE Social History Tobacco Use Types Packs/Day Years Used Date Smoking Tobacco: Never Assessed Comments Unknown Sex and Gender Information Value Date Recorded Sex Assigned at Not on file Legal Sex Female 3:33 AM GENERAL HARDWARE SALESPERSON Gender Identity Not on file Sexual Orientation Not on file documented as of this encounter Plan of Treatment Upcoming Encounters Date Type Department Care Team (Late st Contact Info) Description 04/04/2025 11:00 AM GENERAL HARDWARE SALESPERSON Office Visit [facility] Oncology and Hematology - [place] [address] [place] [address] [address] [place] [address] Prince Mir MD [address] [facility] [address] [place] [address] documented as of this encounter Visit Diagnoses Not on filedocumented in this encounter Care Teams Molding Machine Tender Relationship Specialty Start Date End Date Abrahan Mcgee MD [address] [place] [address] PCP - General Family Practice 04/03/24 documented as of this encounter
--- OUTSIDE RECORDS SUMMARY | 2024-10-05 10:40 | XMS_ITS | Encounter Summary ---
Author Organization [facility] Address [address] [place] [address] Care Team Providers Care Retail Manager Name Role Phone Abrahan Mcgee MD Primary Care Provider [phone] Encounter Details Date Type Department Care Team (Late st Contact Info) Description 07/27/2003 Outpatient Historical HIS [facility] ЕКАТЕРИНА Perry, Meryl Pereira MD [address] [address] ABNORMAL FINDINGS-GI TRACT (Primary Dx) Social History Tobacco Use Types Packs/Day Years Used Date Smoking Tobacco: Never Assessed Comments Unknown Sex and Gender Information Value Date Recorded Sex Assigned at Not on file Legal Sex Female 3:33 AM BELL CLEANER Gender Identity Not on file Sexual Orientation Not on file documented as of this encounter Plan of Treatment Upcoming Encounters Date Type Department Care Team (Late st Contact Info) Description 04/04/2025 11:00 AM BELL CLEANER Office Visit [facility] Oncology and Hematology - [place] [address] [place] [address] [address] [place] [address] Prince Mir MD [address] [facility] [address] [place] [address] documented as of this encounter Visit Diagnoses Diagnosis Nonspecific (abnormal) findings on radiological and other examination of gastrointestinal tract- Primary documented in this encounter Care Teams Retail Manager Relationship Specialty Start Date End Date Abrahan Mcgee MD [address] [place] [address] PCP - General Family Practice 04/03/24 documented as of this encounter
--- OUTSIDE RECORDS SUMMARY | 2024-10-05 10:40 | XMS_ITS | Encounter Summary ---
Author Organization [facility] Address [address] [place] [address] Care Team Providers Care Assembler Wire Mesh Gate Name Role Phone Abrahan Mcgee MD Primary Care Provider [phone] Encounter Details Date Type Department Care Team (Late st Contact Info) Description 07/13/2003 Outpatient Historical HIS [facility] Meryl Perry MD [address] [address] ABDOMINAL PAIN OTHER SPEC SITE (Primary Dx) Social History Tobacco Use Types Packs/Day Years Used Date Smoking Tobacco: Never Assessed Comments Unknown Sex and Gender Information Value Date Recorded Sex Assigned at Not on file Legal Sex Female 3:33 AM MORTGAGE LOAN PROCESSING CLERK Gender Identity Not on file Sexual Orientation Not on file documented as of this encounter Plan of Treatment Upcoming Encounters Date Type Department Care Team (Late st Contact Info) Description 04/04/2025 11:00 AM MORTGAGE LOAN PROCESSING CLERK Office Visit [facility] Oncology and Hematology - [place] [address] [place] [address] [address] [place] [address] Prince Mir MD [address] [facility] [address] [place] [address] documented as of this encounter Visit Diagnoses Diagnosis Abdominal pain, other specified site- Primary documented in this encounter Care Teams Assembler Wire Mesh Gate Relationship Specialty Start Date End Date Abrahan Mcgee MD [address] [place] [address] PCP - General Family Practice 04/03/24 documented as of this encounter
--- OUTSIDE RECORDS SUMMARY | 2024-10-05 10:40 | XMS_ITS | Encounter Summary ---
Author Organization [facility] Address [address] [place] [address] Care Team Providers Care Bird Raiser Name Role Phone Abrahan Mcgee MD Primary Care Provider [phone] Encounter Details Date Type Department Care Team (Latest Contact Info) Description 10/17/2002 Outpatient Historical HIS [facility] ЕКАТЕРИНА Ernst, Andre Guardado MD NO ADDRESS ON FILE SOLITARY CYST OF BREAST (Primary Dx) Social History Tobacco Use Types Packs/Day Years Used Date Smoking Tobacco: Never Assessed Comments Unknown Sex and Gender Information Value Date Recorded Sex Assigned at Not on file Legal Sex Female 3:33 AM RIBBON SWEATBAND OPERATOR Gender Identity Not on file Sexual Orientation Not on file documented as of this encounter Plan of Treatment Upcoming Encounters Date Type Department Care Team (Late st Contact Info) Description 04/04/2025 11:00 AM RIBBON SWEATBAND OPERATOR Office Visit [facility] Oncology and Hematology - [place] [address] [facility] [address] [place] [address] [place] [address] [place] [address] [address] [place] [address] documented as of this encounter Visit Diagnoses Diagnosis Solitary cyst of breast- Primary documented in this encounter Care Teams Bird Raiser Relationship Specialty Start Date End Date Abrahan Mcgee MD [address] [place] [address] PCP - General Family Practice 04/03/24 documented as of this encounter
--- OUTSIDE RECORDS SUMMARY | 2024-10-05 10:41 | XMS_ITS | Encounter Summary ---
Author Organization [facility] Address [address] [place] [address] Care Team Providers Care English Drawer Name Role Phone Abrahan Mcgee MD Primary Care Provider Encounter Details Date Type Department Care Team (Late st Contact Info) Description 07/09/2005 Outpatient Historical HIS [facility] INTERNISTS Andre Ernst MD NO ADDRESS ON FILE Social History Tobacco Use Types Packs/Day Years Used Date Smoking Tobacco: Never Assessed Comments Unknown Sex and Gender Information Value Date Recorded Sex Assigned at Not on file Legal Sex Female 3:33 AM SHIP DESIGN TEACHER Gender Identity Not on file Sexual Orientation Not on file documented as of this encounter Plan of Treatment Upcoming Encounters Date Type Department Care Team (Late st Contact Info) Description 04/04/2025 11:00 AM SHIP DESIGN TEACHER Office Visit [facility] Oncology and Hematology - [place] [address] [place] [address] [address] [place] [address] Prince Mir MD [address] [facility] [address] [place] [address] documented as of this encounter Visit Diagnoses Not on filedocumented in this encounter Care Teams English Drawer Relationship Specialty Start Date End Date Abrahan Mcgee MD [address] [place] [address] PCP - General Family Practice 04/03/24 documented as of this encounter
--- OUTSIDE RECORDS SUMMARY | 2024-10-05 10:41 | XMS_ITS | Encounter Summary ---
Author Organization [facility] Address [address] [place] [address] Care Team Providers Care Human Resources Intern Name Role Phone Abrahan Mcgee MD Primary Care Provider [phone] Encounter Details Date Type Department Care Team (Late st Contact Info) Description 02/23/[address] [facility] Support Serv. (Adt Cardiology-SJ) [address] [place] [id number] Guero Malhotra MD NO ADDRESS ON FILE [...] st Contact Info) Description 04/04/2025 11:00 AM TOW TRUCK OPERATOR Office Visit [facility] Oncology and Hematology - [place] [address] [place] [address] [address] [place] [address] Prince Mir MD [address] [facility] [address] [place] [address] documented as of this encounter Visit Diagnoses Not on filedocumented in this encounter Care Teams Human Resources Intern Relationship Specialty Start Date End Date Abrahan Mcgee MD [address] [place] [address] PCP - General Family Practice 04/03/24 documented as of this encounter
--- OUTSIDE RECORDS SUMMARY | 2024-10-05 10:41 | XMS_ITS | Encounter Summary ---
Author Organization [facility] Address [address] [place] [address] Care Team Providers Care Children'S Ministry Director Name Role Phone Abrahan Mcgee MD Primary Care Provider [phone] Encounter Details Date Type Department Care Team (Late st Contact Info) Description 12/05/2004 Outpatient Historical HIS MRI DEPT Meryl Perry MD [address] [address] UTERINE LEIOMYOMA NOS (Primary Dx) Social History Tobacco Use Types Packs/Day Years Used Date Smoking Tobacco: Never Assessed Comments Unknown Sex and Gender Information Value Date Recorded Sex Assigned at Not on file Legal Sex Female 3:33 AM MISSILE AND MISSILE CHECKOUT TECHNICIAN Gender Identity Not on file Sexual Orientation Not on file documented as of this encounter Plan of Treatment Upcoming Encounters Date Type Department Care Team (Late st Contact Info) Description 04/04/2025 11:00 AM MISSILE AND MISSILE CHECKOUT TECHNICIAN Office Visit [facility] Oncology and Hematology - [place] [address] [place] [address] [address] [place] [address] Prince Mir MD [address] [facility] [address] [place] [address] documented as of this encounter Visit Diagnoses Diagnosis Leiomyoma of uterus, unspecified- Primary documented in this encounter Care Teams Children'S Ministry Director Relationship Specialty Start Date End Date Abrahan Mcgee MD [address] [place] [address] PCP - General Family Practice 04/03/24 documented as of this encounter
--- OUTSIDE RECORDS SUMMARY | 2024-10-05 10:41 | XMS_ITS | Clinical Summary ---
Author Organization [facility] Care Team Providers Care Philanthropy Officer Name Role Phone Unavailable Primary Care Provider [...]
--- OUTSIDE RECORDS SUMMARY | 2024-10-05 10:41 | XMS_ITS | Encounter Summary ---
Author Organization [facility] Address [address] [place] [address] Care Team Providers Care Double Surface Operator Name Role Phone Abrahan Mcgee MD Primary Care Provider Encounter Details Date Type Department Care Team (Late st Contact Info) Description 06/11/2005 Outpatient Historical HIS [facility] INTERNISTS Andre Ernst MD NO ADDRESS ON FILE Social History Tobacco Use Types Packs/Day Years Used Date Smoking Tobacco: Never Assessed Comments Unknown Sex and Gender Information Value Date Recorded Sex Assigned at Not on file Legal Sex Female 3:33 AM FRUIT CHECKER Gender Identity Not on file Sexual Orientation Not on file documented as of this encounter Plan of Treatment Upcoming Encounters Date Type Department Care Team (Late st Contact Info) Description 04/04/2025 11:00 AM FRUIT CHECKER Office Visit [facility] Oncology and Hematology - [place] [address] [place] [address] [address] [place] [address] Prince Mir MD [address] [facility] [address] [place] [address] documented as of this encounter Visit Diagnoses Not on filedocumented in this encounter Care Teams Double Surface Operator Relationship Specialty Start Date End Date Abrahan Mcgee MD [address] [place] [address] PCP - General Family Practice 04/03/24 documented as of this encounter
--- OUTSIDE RECORDS SUMMARY | 2024-10-05 10:41 | XMS_ITS | Encounter Summary ---
Author Organization [facility] Address [address] [place] [address] Care Team Providers Care Barber Instructor Name Role Phone Abrahan Mcgee MD Primary Care Provider [phone] Encounter Details Date Type Department Care Team (Latest Contact Info) Description 09/16/2004 Outpatient Historical HIS [facility] ЕКАТЕРИНА Ernst, Andre Guardado MD NO ADDRESS ON FILE BENIGN HYPERTENSION (Primary Dx) Social History Tobacco Use Types Packs/Day Years Used Date Smoking Tobacco: Never Assessed Comments Unknown Sex and Gender Information Value Date Recorded Sex Assigned at Not on file Legal Sex Female 3:33 AM HAND MARKER Gender Identity Not on file Sexual Orientation Not on file documented as of this encounter Plan of Treatment Upcoming Encounters Date Type Department Care Team (Late st Contact Info) Description 04/04/2025 11:00 AM HAND MARKER Office Visit [facility] Oncology and Hematology - [place] [address] [facility] [address] [place] [address] Prince Mir MD [address] [facility] [address] [place] [address] documented as of this encounter [...] Final Re sult Performing Organization Address [facility] de Phone Number INTERFACE [...] Final Re sult Performing Organization Address [facility] de Phone Number INTERFACE SYSTEM Refer to clinic/hospital department * TSH (09/16/2004 11:48 AM CDT) TSH 1.55 0.27 - 4.20 uU/mL INTERFACE SYSTEM 09/16/2004 11:4 8 AM CDT Andre Ernst MD CHEMISTRY ORDERABLES Final Res ult Performing Organization Address [facility] Phone Number INTERFACE SYSTEM Refer to clinic/hospital [...] Final Res ult Performing Organization Address [facility] Phone Number INTERFACE SYSTEM Refer to clinic/hospital department documented in this encounter Visit Diagnoses Diagnosis Essential hypertension, benign- Primary documented in this encounter Care Teams Barber Instructor Relationship Specialty Start Date End Date Abrahan Mcgee MD [address] [place] [address] PCP - General Family Practice 04/03/24 documented as of this encounter
--- OUTSIDE RECORDS SUMMARY | 2024-10-05 10:41 | XMS_ITS | Encounter Summary ---
Author Organization [facility] Address [address] [place] [address] Care Team Providers Care Caterpillar Mechanic Name Role Phone Abrahan Mcgee MD Primary Care Provider [phone] Encounter Details Date Type Department Care Team (Late st Contact Info) Description 12/18/2004 Outpatient Historical HIS [facility] INTERNISTS Andre Ernst MD NO ADDRESS ON FILE Social History Tobacco Use Types Packs/Day Years Used Date Smoking Tobacco: Never Assessed Comments Unknown Sex and Gender Information Value Date Recorded Sex Assigned at Not on file Legal Sex Female 3:33 AM WHITE WASHER Gender Identity Not on file Sexual Orientation Not on file documented as of this encounter Plan of Treatment Upcoming Encounters Date Type Department Care Team (Late st Contact Info) Description 04/04/2025 11:00 AM WHITE WASHER Office Visit [facility] Oncology and Hematology - [place] [address] [place] [address] [address] [place] [address] Prince Mir MD [address] [facility] [address] [place] [address] documented as of this encounter Visit Diagnoses Not on filedocumented in this encounter Care Teams Caterpillar Mechanic Relationship Specialty Start Date End Date Abrahan Mcgee MD [address] [place] [address] PCP - General Family Practice 04/03/24 documented as of this encounter
--- OUTSIDE RECORDS SUMMARY | 2024-10-05 10:41 | XMS_ITS | Clinical Summary ---
Author Organization [facility] Address [address] [place] [address] Care Team Providers Care Leather Dresser Name Role Phone Luigi Nicole PA-C Primary [...] (eight) hours as needed. 07/08/19 Active ZENPEP 54419-[address]86 units CAPSULE ENTERIC COATED PARTICLES Take by [...] mouth nightly. Every other month Active Pancrelipase, Tqi-Qhyk-Ikkb, 6[address]71-[address] units CAPSULE ENTERIC COATED PARTICLES Take 50,000 [...] drink = 0.6 oz pur e alcohol) [facility] Utilities Answer Date Recorded In the [...] time in the past 12 m [facility], were you homeless or living in [...] 10:05 AM 08/21/2023 1:30 PM Care Teams Leather Dresser Relationship Specialty Start Date End Date Luigi Nicole PA-C [address] [address] PCP - General PHYSICIAN PHYSIATRIST 08/20/23 Luigi Nicole PA-C [address] [address] PHYSICIAN PHYSIATRIST 08/20/23
--- OUTSIDE RECORDS SUMMARY | 2024-10-05 10:41 | XMS_ITS | Encounter Summary ---
Author Organization [facility] Address [address] [place] [address] Care Team Providers Care Health Education Coordinator Name Role Phone Abrahan Mcgee MD Primary Care Provider [phone] Encounter Details Date Type Department Care Team (Late st Contact Info) Description 12/17/2004 Outpatient Historical [facility] Meryl Perry MD [address] [address] BENIGN NEOPLASM LG BOWEL (Primary Dx) Social History Tobacco Use Types Packs/Day Years Used Date Smoking Tobacco: Never Assessed Comments Unknown Sex and Gender Information Value Date Recorded Sex Assigned at Not on file Legal Sex Female 3:33 AM SAND CONTROL WORKER Gender Identity Not on file Sexual Orientation Not on file documented as of this encounter Plan of Treatment Upcoming Encounters Date Type Department Care Team (Late st Contact Info) Description 04/04/2025 11:00 AM SAND CONTROL WORKER Office Visit [facility] Oncology and Hematology - [place] [address] [place] [address] Dr [address] [place] [address] Prince Mir MD [address] [facility] [address] [place] [address] documented as of this encounter Visit Diagnoses Diagnosis Benign neoplasm of colon- Primary documented in this encounter Care Teams Health Education Coordinator Relationship Specialty Start Date End Date Abrahan Mcgee MD [address] [place] [address] PCP - General Family Practice 04/03/24 documented as of this encounter
--- OUTSIDE RECORDS SUMMARY | 2024-10-05 10:41 | XMS_ITS | Encounter Summary ---
Author Organization [facility] Address [address] [place] [address] Care Team Providers Care Kitchen Aide Name Role Phone Abrahan Mcgee MD Primary Care Provider [phone] Encounter Details Date Type Department Care Team (Late st Contact Info) Description 02/23/2005 Outpatient Historical [facility] Adult Hospitalists [address] [address] Deisy Garcia MD [address] [address] Social History Tobacco Use Types Packs/Day Years Used Date Smoking Tobacco: Never Assessed Comments Unknown Sex and Gender Information Value Date Recorded Sex Assigned at Not on file Legal Sex Female 3:33 AM EMERGENCY ROOM SPECIALIST Gender Identity Not on file Sexual Orientation Not on file documented as of this encounter Plan of Treatment Upcoming Encounters Date Type Department Care Team (Late st Contact Info) Description 04/04/2025 11:00 AM EMERGENCY ROOM SPECIALIST Office Visit [facility] Oncology and Hematology - [place] [address] [place] [address] [address] [place] [address] Prince Mir MD [address] [facility] [address] [place] [address] documented as of this encounter Visit Diagnoses Not on filedocumented in this encounter Care Teams Kitchen Aide Relationship Specialty Start Date End Date Abrahan Mcgee MD [address] [place] [address] PCP - General Family Practice 04/03/24 documented as of this encounter
--- OUTSIDE RECORDS SUMMARY | 2024-10-05 10:41 | XMS_ITS | Encounter Summary ---
Author Organization [facility] Address [address] [place] [address] Care Team Providers Care Investment Banking Associate Name Role Phone Abrahan Mcgee MD Primary Care Provider [phone] Encounter Details Date Type Department Care Team (Latest Contact Info) Description 02/23/2005 Inpatient Historical [facility] Alcon Valadez MD [address] [address] Deisy Garcia MD [address] [address] CHEST PAIN NOS (Primary Dx) Social History Tobacco Use Types Packs/Day Years Used Date Smoking Tobacco: Never Assessed Comments Unknown Sex and Gender Information Value Date Recorded Sex Assigned at Not on file Legal Sex Female 3:33 AM HEALTH CARE FACILITIES INSPECTOR Gender Identity Not on file Sexual Orientation Not on file documented as of this encounter Plan of Treatment Upcoming Encounters Date Type Department Care Team (Late st Contact Info) Description 04/04/2025 11:00 AM HEALTH CARE FACILITIES INSPECTOR Office Visit [facility] Oncology and Hematology - [place] [address] [facility] [address] [place] [address] Prince Mir MD [address] [facility] [address] [place] [address] documented as of this encounter Procedures Procedure Name Priority Date/Time Associated Diagnosis Comments CBC WITH DIFFERENTIAL Routine 02/25/2005 4:30 AM HEALTH CARE FACILITIES INSPECTOR CBC WITH DIFFERENTIAL Routine 02/25/2005 4:30 AM HEALTH CARE FACILITIES INSPECTOR C-REACTIVE PROTEIN Routine 02/25/2005 4: 30 AM HEALTH CARE FACILITIES INSPECTOR T3 FREE Routine 02/25/2005 4:30 AM HEALTH CARE FACILITIES INSPECTOR T4 FREE Routine 02/25/2005 4:30 AM HEALTH CARE FACILITIES INSPECTOR BASIC METABOLIC PANEL Routine 02/25/2005 4:30 AM HEALTH CARE FACILITIES INSPECTOR TSH Routine 02/24/2005 4:35 AM HEALTH CARE FACILITIES INSPECTOR LIPASE Routine 02/24/2005 4:35 AM HEALTH CARE FACILITIES INSPECTOR AMYLASE Routine 02/24/2005 4:35 AM HEALTH CARE FACILITIES INSPECTOR LIPID PANEL Routine 02/24/2005 4:35 AM HEALTH CARE FACILITIES INSPECTOR BASIC METABOLIC PANEL Routine 02/24/2005 4:35 AM HEALTH CARE FACILITIES INSPECTOR TROPONIN (W/REFLEX CKMB/CK) Routine 02/24/2005 4:15 AM HEALTH CARE FACILITIES INSPECTOR TROPONIN (W/REFLEX CKMB/CK) Routine 02/23/2005 10:15 PM HEALTH CARE FACILITIES INSPECTOR URINALYSIS W/REFLEX MICROSCOPIC Routine 02/23/2005 8:31 PM HEALTH CARE FACILITIES INSPECTOR TROPONIN (W/REFLEX CKMB/CK) Routine 02/23/2005 1:28 PM HEALTH CARE FACILITIES INSPECTOR CBC WITH DIFFERENTIAL Routine 02/23/2005 12:46 PM HEALTH CARE FACILITIES INSPECTOR CBC WITH DIFFERENTIAL Routine 02/23/2005 12:46 PM HEALTH CARE FACILITIES INSPECTOR LIPASE Routine 02/23/2005 12:46 PM HEALTH CARE FACILITIES INSPECTOR AMYLASE Routine 02/23/2005 12:46 PM HEALTH CARE FACILITIES INSPECTOR COMPREHENSIVE METABOLIC PANEL Routine 02/23/2005 12:46 PM HEALTH CARE FACILITIES INSPECTOR documented in this encounter Results * CBC WITH DIFFERENTIAL (02/25/2005 4:30 AM HEALTH CARE FACILITIES INSPECTOR) NEUTROPHILS 52 45 - 70 % INTERFAC [...] 0.20 K/uL INTERFACE SYSTEM 02/25/2005 4:30 AM HEALTH CARE FACILITIES INSPECTOR us Alcon Valadez MD HEMATOLOGY ORDERABLES Final Re sult Performing Organization Address [facility] de Phone Number INTERFACE SYSTEM Refer to clinic/hospital department * (ABNORMAL) CBC WITH DIFFERENTIAL (02/25/2005 4:30 AM HEALTH CARE FACILITIES INSPECTOR) WBC 7.4 4.0 - 9.8 K/uL INTERFACE [...] 12.4 fL INTERFACE SYSTEM 02/25/2005 4:30 AM HEALTH CARE FACILITIES INSPECTOR us Alcon Valadez MD HEMATOLOGY ORDERABLES Final Re sult Performing Organization Address [facility] de Phone Number INTERFACE SYSTEM Refer to clinic/hospital department * T3 FREE (02/25/2005 4:30 AM HEALTH CARE FACILITIES INSPECTOR) T3 FREE 2.9 2.5 - 4.4 pg/mL INTERFACE SYSTEM 02/25/2005 4:30 AM HEALTH CARE FACILITIES INSPECTOR us Alcon Valadez MD CHEMISTRY ORDERABLES Final Res ult Performing Organization Address [facility] Phone Number INTERFACE SYSTEM Refer to clinic/hospital department * T4 FREE (02/25/2005 4:30 AM HEALTH CARE FACILITIES INSPECTOR) T4 FREE 1.3 0.9 - 1.7 ng/dL INTERFACE SYSTEM 02/25/2005 4:30 AM HEALTH CARE FACILITIES INSPECTOR us Alcon Valadez MD CHEMISTRY ORDERABLES Final Res ult Performing Organization Address [facility] Phone Number INTERFACE SYSTEM Refer to clinic/hospital department * C-REACTIVE PROTEIN (02/25/2005 4:30 AM HEALTH CARE FACILITIES INSPECTOR) CRP 0.6 0.0 - 0.8 mg/dL INTERFACE SYSTEM 02/25/2005 4:30 AM HEALTH CARE FACILITIES INSPECTOR us Alcon Valadez MD CHEMISTRY ORDERABLES Final Res ult Performing Organization Address [facility] Phone Number INTERFACE SYSTEM Refer to clinic/hospital department * BASIC METABOLIC PANEL (02/25/2005 4:30 AM HEALTH CARE FACILITIES INSPECTOR) GLUCOSE 89 65 - 109 mg/dL INTERFACE [...] 30 mmol/L INTERFACE SYSTEM 02/25/2005 4:30 AM HEALTH CARE FACILITIES INSPECTOR Result An Valadez MD CHEMISTRY ORDERABLES Final Res ult Performing Organization Address [facility] Phone Number INTERFACE SYSTEM Refer to clinic/hospital department * (ABNORMAL) LIPASE (02/24/2005 4:35 AM HEALTH CARE FACILITIES INSPECTOR) LIPASE 90(H) 13 - 60 U/L INTERFAC E SYSTEM 02/24/2005 4:35 AM HEALTH CARE FACILITIES INSPECTOR Nora Sivaprasad CHEMISTRY ORDERABLES Final Resu lt Performing Organization Address [facility] Phone Number INTERFACE SYSTEM Refer to clinic/hospital department * (ABNORMAL) AMYLASE (02/24/2005 4:35 AM HEALTH CARE FACILITIES INSPECTOR) AMYLASE 118(H) 28 - 100 U/L INTERFACE SYSTEM 02/24/2005 4:35 AM HEALTH CARE FACILITIES INSPECTOR Nora Sivaprasad CHEMISTRY ORDERABLES Final Resu lt Performing Organization Address [facility] Phone Number INTERFACE SYSTEM Refer to clinic/hospital department * (ABNORMAL) TSH (02/24/2005 4:35 AM HEALTH CARE FACILITIES INSPECTOR) TSH 4.33(H) 0.27 - 4.20 uU/mL INTERFACE SYSTEM 02/24/2005 4:35 AM HEALTH CARE FACILITIES INSPECTOR Nora Sivaprasad CHEMISTRY ORDERABLES Final Resu lt Performing Organization Address [facility] Phone Number INTERFACE SYSTEM Refer to clinic/hospital department * LIPID PANEL (02/24/2005 4:35 AM HEALTH CARE FACILITIES INSPECTOR) LIPID PANEL COMMENT See below INTERFACE SYSTEM [...] section for risk classifications. 02/24/2005 4:35 AM HEALTH CARE FACILITIES INSPECTOR [facility] [employer] CHEMISTRY ORDERABLES Final Resu lt Performing Organization Address City/[facility] de Phone Number INTERFACE SYSTEM Refer to clinic/hospital department * BASIC METABOLIC PANEL (02/24/2005 4:35 AM HEALTH CARE FACILITIES INSPECTOR) GLUCOSE 100 65 - 109 mg/dL INTERFACE [...] 30 mmol/L INTERFACE SYSTEM 02/24/2005 4:35 AM HEALTH CARE FACILITIES INSPECTOR [facility] [employer] CHEMISTRY ORDERABLES Final Resu lt Performing Organization Address [facility] de Phone Number INTERFACE SYSTEM Refer to clinic/hospital department * TROPONIN (W/REFLEX CKMB/CK) (02/24/2005 4:15 AM HEALTH CARE FACILITIES INSPECTOR) TROPONIN T <0.01 <=0.03 ng/mL INTERFACE SYSTEM TROPONIN T INTERP Negative INTERFACE SYSTEM 02/24/2005 4:15 AM HEALTH CARE FACILITIES INSPECTOR Nora Sivaprasad CHEMISTRY ORDERABLES Final Resu lt Performing Organization Address [facility] Phone Number INTERFACE SYSTEM Refer to clinic/hospital department * TROPONIN (W/REFLEX CKMB/CK) (02/23/2005 10:15 PM HEALTH CARE FACILITIES INSPECTOR) TROPONIN T <0.01 <=0.03 ng/mL INTERFACE SYSTEM TROPONIN T INTERP Negative INTERFACE SYSTEM 02/23/2005 10:1 5 PM HEALTH CARE FACILITIES INSPECTOR [facility] Sivaprasad CHEMISTRY ORDERABLES Final Resu lt Performing Organization Address [facility] Phone Number INTERFACE SYSTEM Refer to clinic/hospital department * (ABNORMAL) URINALYSIS (02/23/2005 8:31 PM HEALTH CARE FACILITIES INSPECTOR) COLOR UA Yellow INTERFACE SYSTEM CLARITY UA [...] 2-5 /HPF INTERFACE SYSTEM 02/23/2005 8:31 PM HEALTH CARE FACILITIES INSPECTOR Nora Sivaprasad URINE ORDERABLES Final Result Performing Organization Address [facility] Phone Number INTERFACE SYSTEM Refer to clinic/hospital department * TROPONIN (W/REFLEX CKMB/CK) (02/23/2005 1:28 PM HEALTH CARE FACILITIES INSPECTOR) TROPONIN T <0.01 <=0.03 ng/mL INTERFACE SYSTEM TROPONIN T INTERP Negative INTERFACE SYSTEM 02/23/2005 1:28 PM HEALTH CARE FACILITIES INSPECTOR us Erika P Er CHEMISTRY ORDERABLES Final Resul t Performing Organization Address [facility] de Phone Number INTERFACE SYSTEM Refer to clinic/hospital department * CBC WITH DIFFERENTIAL (02/23/2005 12:46 PM HEALTH CARE FACILITIES INSPECTOR) NEUTROPHILS 70 45 - 70 % INTERFAC [...] K/uL INTERFACE SYSTEM 02/23/2005 12:4 6 PM HEALTH CARE FACILITIES INSPECTOR us Jasbir Sol MD HEMATOLOGY ORDERABLES Final Re sult Performing Organization Address [facility] Phone Number INTERFACE SYSTEM Refer to clinic/hospital department * (ABNORMAL) CBC WITH DIFFERENTIAL (02/23/2005 12:46 PM HEALTH CARE FACILITIES INSPECTOR) WBC 9.3 4.0 - 9.8 K/uL INTERFACE [...] fL INTERFACE SYSTEM 02/23/2005 12:4 6 PM HEALTH CARE FACILITIES INSPECTOR Jasbir Sol MD HEMATOLOGY ORDERABLES Final Re sult Performing Organization Address [facility] Phone Number INTERFACE SYSTEM Refer to clinic/hospital department * (ABNORMAL) LIPASE (02/23/2005 12:46 PM HEALTH CARE FACILITIES INSPECTOR) LIPASE 91(H) 13 - 60 U/L INTERFAC E SYSTEM 02/23/2005 12:4 6 PM HEALTH CARE FACILITIES INSPECTOR Jasbir Sol MD CHEMISTRY ORDERABLES Final Res ult Performing Organization Address [facility] Phone Number INTERFACE SYSTEM Refer to clinic/hospital department * (ABNORMAL) AMYLASE (02/23/2005 12:46 PM HEALTH CARE FACILITIES INSPECTOR) AMYLASE 134(H) 28 - 100 U/L INTERFACE SYSTEM 02/23/2005 12:4 6 PM HEALTH CARE FACILITIES INSPECTOR Jasbir Sol MD CHEMISTRY ORDERABLES Final Res ult Performing Organization Address [facility] Phone Number INTERFACE SYSTEM Refer to clinic/hospital department * (ABNORMAL) COMPREHENSIVE METABOLIC PANEL (02/23/2005 12:46 PM HEALTH CARE FACILITIES INSPECTOR) GLUCOSE 115(H) 65 - 109 mg/dL INTERFACE [...] mmol/L INTERFACE SYSTEM 02/23/2005 12:4 6 PM HEALTH CARE FACILITIES INSPECTOR us Jasbir Sol MD CHEMISTRY ORDERABLES Final Res ult INTERFACE SYSTEM Refer to clinic/hospital department documented in this encounter Visit Diagnoses Diagnosis Chest pain, unspecified- Primary documented in this encounter Care Teams Investment Banking Associate Relationship Specialty Start Date End Date Abrahan Mcgee MD [address] [place] [address] PCP - General Family Practice 04/03/24 documented as of this encounter
--- OUTSIDE RECORDS SUMMARY | 2024-10-05 10:41 | XMS_ITS | Encounter Summary ---
Author Organization [facility] Address [address] [place] [address] Care Team Providers Care Financial Recording Clerk Name Role Phone Abrahan Mcgee MD Primary Care Provider Encounter Details Date Type Department Care Team (Late st Contact Info) Description 09/16/2004 Outpatient Historical [facility] Andre Ernst MD NO ADDRESS ON FILE Social History Tobacco Use Types Packs/Day Years Used Date Smoking Tobacco: Never Assessed Comments Unknown Sex and Gender Information Value Date Recorded Sex Assigned at Not on file Legal Sex Female 3:33 AM TILE FINISHER Gender Identity Not on file Sexual Orientation Not on file documented as of this encounter Plan of Treatment Upcoming Encounters Date Type Department Care Team (Late st Contact Info) Description 04/04/2025 11:00 AM TILE FINISHER Office Visit [facility] Oncology and Hematology - [place] [address] [place] [address] [address] [place] [address] Prince Mir MD [address] [facility] [address] [place] [address] documented as of this encounter Visit Diagnoses Not on filedocumented in this encounter Care Teams Financial Recording Clerk Relationship Specialty Start Date End Date Abrahan Mcgee MD [address] [place] [address] PCP - General Family Practice 04/03/24 documented as of this encounter
--- OUTSIDE RECORDS SUMMARY | 2024-10-05 10:41 | XMS_ITS | Encounter Summary ---
Author Organization [facility] Address [address] [place] [address] Care Team Providers Care Tubular Riveter Name Role Phone Abrahan Mcgee MD Primary Care Provider [phone] Encounter Details Date Type Department Care Team (Latest Contact Info) Description 11/27/2004 Outpatient Historical HIS [facility] ЕКАТЕРИНА Sneed, Oscar Medeiros MD NO ADDRESS ON FILE SCREENING MAMM-MAILG NEOPL NEC (Primary Dx) Social History Tobacco Use Types Packs/Day Years Used Date Smoking Tobacco: Never Assessed Comments Unknown Sex and Gender Information Value Date Recorded Sex Assigned at Not on file Legal Sex Female 3:33 AM RAILROAD CAR LOADER Gender Identity Not on file Sexual Orientation Not on file documented as of this encounter Plan of Treatment Upcoming Encounters Date Type Department Care Team (Late st Contact Info) Description 04/04/2025 11:00 AM RAILROAD CAR LOADER Office Visit [facility] Oncology and Hematology - [place] [address] [facility] [address] [place] [address] Prince Mir MD [address] [place] [address] [address] [place] [address] documented as of this encounter Visit Diagnoses Diagnosis Other screening mammogram- Primary documented in this encounter Care Teams Tubular Riveter Relationship Specialty Start Date End Date Abrahan Mcgee MD [address] [place] [address] PCP - General Family Practice 04/03/24 documented as of this encounter
--- OUTSIDE RECORDS SUMMARY | 2024-10-05 10:41 | XMS_ITS | Encounter Summary ---
Author Organization [facility] Address [address] [place] [address] Care Team Providers Care Carton Wrapper Name Role Phone Abrahan Mcgee MD [...] file Legal Sex Female 3:33 AM CAREER EDUCATION TEACHER Gender Identity Not on file Sexual Orientation Not on file documented as of this encounter Plan of Treatment Upcoming Encounters Date Type Department Care Team (Late st Contact Info) Description 04/04/2025 11:00 AM CAREER EDUCATION TEACHER Office Visit [facility] Oncology and Hematology - [place] [address] [place] [address] [address] [place] [address] [place] [address] [place] [address] [address] [place] [address] documented as of this encounter Visit Diagnoses Diagnosis Allergic rhinitis due to pollen- Primary documented in this encounter Care Teams Carton Wrapper Relationship Specialty Start Date End Date Abrahan Mcgee MD [address] [place] [address] PCP - General Family Practice 04/03/24 documented as of this encounter
--- OUTSIDE RECORDS SUMMARY | 2024-10-05 10:41 | XMS_ITS | Encounter Summary ---
Author Organization [facility] Address [address] [place] [address] Care Team Providers Care Automatic Centrifugal Station Operator Name Role Phone Abrahan Mcgee MD Primary Care Provider [phone] Encounter Details Date Type Department Care Team (Late st Contact Info) Description 11/27/2004 Outpatient Historical HIS [facility] ЕКАТЕРИНА Perry, Meryl Pereira MD [address] [address] ABDOMINAL PAIN RLQ (Primary Dx) Social History Tobacco Use Types Packs/Day Years Used Date Smoking Tobacco: Never Assessed Comments Unknown Sex and Gender Information Value Date Recorded Sex Assigned at Not on file Legal Sex Female 3:33 AM BUILDING CONSTRUCTION PROFESSOR Gender Identity Not on file Sexual Orientation Not on file documented as of this encounter Plan of Treatment Upcoming Encounters Date Type Department Care Team (Late st Contact Info) Description 04/04/2025 11:00 AM BUILDING CONSTRUCTION PROFESSOR Office Visit [facility] Oncology and Hematology - [place] [address] [facility] [address] [place] [address] Prince Mir MD [address] [facility] [address] [place] [address] documented as of this encounter [...] FETOPROTEIN TUMOR MARKER (11/27/2004 11:54 AM CDT) [facility] ALPHA FETOPROTEIN TUMOR MARKER 2.2 ng/mL INTERFACE SYSTEM Comment: This test was performed using the DPC Immulite 2000 Assay. REFERENCE RANGE: <6.1 THE USE OF AFP A TUMOR MARKER IN [place]EMAL[place] IS NOT RECOMMENDED. Lab test performed by: [facility] [address] EVELINA AMOS MD 11/27/2004 11:5 4 AM CDT Meryl Perry MD CHEMISTRY ORDERABLES Fin al Result INTERFACE SYSTEM Refer to clinic/hospital department * CBC WITH DIFFERENTIAL (11/27/2004 11:54 AM CDT) [facility] NEUTROPHILS 67 45 - 70 % [...] ORDERABLES Fi nal Result Performing Organization Address City/State/[facility] Co de Phone Number INTERFACE SYSTEM [...] Organization Address [facility] Phone Number INTERFACE SYSTEM Refer to clinic/hospital department * (ABNORMAL) AMYLASE (11/27/2004 11:54 AM CDT) AMYLASE 141(H) 28 - 100 U/L INTERFACE SYSTEM 11/27/2004 11:5 4 AM CDT Meryl Perry MD CHEMISTRY ORDERABLES Fin al Result Performing Organization Address City/[facility] Co de Phone Number INTERFACE SYSTEM Refer to clinic/hospital department * (ABNORMAL) LIPASE (11/27/2004 11:54 AM CDT) LIPASE 97(H) 13 - 60 U/L INTERFAC E SYSTEM 11/27/2004 11:5 4 AM CDT Meryl Perry MD CHEMISTRY ORDERABLES Fin al Result Performing Organization Address [facility] Phone Number INTERFACE SYSTEM Refer to clinic/hospital department * C-REACTIVE PROTEIN (11/27/2004 11:54 AM CDT) CRP 0.5 0.0 - 0.8 mg/dL INTERFACE SYSTEM 11/27/2004 11:5 4 AM CDT Meryl Perry MD CHEMISTRY ORDERABLES Fin al Result Performing Organization Address [facility] Phone [...] ORDERABLES Fin al Result Performing Organization Address [facility] Phone Number INTERFACE SYSTEM Refer to [...] INTERFACE SYSTEM 11/27/2004 11:5 4 AM CDT us Meryl Perry MD CHEMISTRY ORDERABLES Fin al Result INTERFACE SYSTEM Refer to clinic/hospital department documented in this encounter Visit Diagnoses Diagnosis Abdominal pain, right lower quadrant- Primary documented in this encounter Care Teams Automatic Centrifugal Station Operator Relationship Specialty Start Date End Date Abrahan Mcgee MD [address] [place] [address] PCP - General Family Practice 04/03/24 documented as of this encounter
[2024-10-05 11:21] LABS: Hematocrit 38.0 % (37.0-47.0); Hemoglobin 12.7 g/dL (12.0-15.0); Immature Granulocyte Percent A 0.1 % (0-0.5); Lymphocytes Absolute Auto 1.10 K/mm3 (0.9-3.2); Mean Corpuscular HGB Conc 33.4 g/dl (32-36); Mean Corpuscular Hemoglobin 32.1 pg (26-34); Mean Corpuscular Volume 96.0 fl (80-100); Nucleated Red Blood Cells Absolute Auto 0.000 K/mm3 (0.0-0.012); Nucleated Red Blood Cells Perc 0.0 % (0.0-0.2); Platelet Count Result 230 k/mm3 (150-375); Red Blood Count 3.96 M/mm3 (4.2-5.4); White Blood Count 7.5 K/mm3 (4.5-10.0)
[2024-10-05 11:41] LABS: Alanine Aminotransferase 17 U/L (6-35); Albumin Level 4.2 g/dL (3.5-5.1); Alkaline Phosphatase 110 U/L (38-126); Amylase 126 U/L (30-110); Anion Gap 5 mmol/L (4-12); Aspartate Amino Transferase 33 U/L (14-36); Bilirubin,Total 0.5 mg/dL (0.2-1.3); Blood Urea Nitrogen 13 mg/dL (7-17); Calcium 10.5 mg/dL (8.4-10.2); Carbon Dioxide 28 mmol/L (22-30); Chloride 104 mmol/L (98-107); Estimated Glomerular Filt Rate > 60; Glucose 108 mg/dL (65-110); Lipase 299 U/L (23-300); Potassium 4.2 mmol/L (3.4-5.0); Sodium 137 mmol/L (137-145); Total Protein 7.3 g/dL (6.3-8.2)
[2024-10-06 07:09] LABS: GGT 17 IU/L (0-60)
== END 2024-10-05 10:36 | disposition home or self-care (01) ==
PROVIDERS: PCP Family Medicine; Visit Provider Nurse Practitioner Adult Health
DX: K86.81 Exocrine pancreatic insufficiency (principal); E83.52 Hypercalcemia; R51.9 Headache, unspecified; R53.1 Weakness; R53.83 Other fatigue; R74.8 Abnormal levels of other serum enzymes; D64.9 Anemia, unspecified
CPT/HCPCS: 36415; 80053; 82150; 82977; 83690; 85025

== ENCOUNTER 2024-12-04 09:24 | Outpatient (CLI) | payer MEDICARE, SELFPAY ==
--- OUTSIDE RECORDS SUMMARY | 2016-07-21 | XMS_ITS | Encounter Summary ---
Author Organization [facility] Healthcare Address [address] [place] [address] Care Team Providers Care Hop Trainer Name Role Phone Abrahan Mcgee MD Primary Care Provider [phone] Reason for Visit * Diagnostic Imaging (Routine) - Closed Specialty Diagnoses / Procedures Referred By Contac t Referred To Contact Procedures Breast Imaging Diagnostic Outside Reference Aft, Sweta Gleason [place] PhD [address] [place] [address] Phone: tel: fax: Referral ID Status Reason Start Date Expiration Date Visits Re quested Visits Authorized [id number] Closed 01/19/2022 02/18/2023 1 1 Encounter Details Date Type Department Care Team (Late st Contact Info) Description 07/21/2016 Hospital Encounter [facility] Radiology [facility] [address] [place] [phone] Social History Tobacco Use Types Packs/Day Years [...] on file Legal 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 Never 11/10/2021 10:27 AM Dora Groves, HÉCTOR Q2: How many drinks containing alcohol do you have on a typical day when you are drinking? Patient does not drink 11/10/2021 10:27 AM Dora Groves, HÉCTOR Q3: How often do you have six or more drinks on one occasion? Never 11/10/2021 10:27 AM Dora Groves RN documented as of this encounter Plan of Treatment Not on file documented as of this encounter Procedures Procedure Name Priority Date/Time Associated Diagnosis Comments BREAST IMAGING MG DIAGNOSTIC OUTSIDE REFERENCE Routine 07/21/2016 12:00 AM CDT documented in this encounter Results * Breast Imaging Diagnostic Outside Reference (07/21/2016 12:00 AM CDT) Impressions [facility] - 01/19/2022 10:56 AM HEAT SEALING MACHINE OPERATOR These images are for Reference purposes only and have not been reviewed by [facility] Radiology. There will be no report generated by a [facility] Radiologist. Narrative [facility] - 01/19/2022 10:56 AM HEAT SEALING MACHINE OPERATOR EXAMINATION: Images For Reference Purposes Only us Sweta Conteh MD PhD IMG MAMMO PROCEDURES Final Result [facility] documented in this encounter Visit Diagnoses Not on filedocumented in this encounter Care Teams Hop Trainer Relationship Specialty Start Date End Date bArahan Mcgee MD PCP - General 10/06/11 09/09/16 documented as of this encounter
--- OUTSIDE RECORDS SUMMARY | 2017-07-23 | XMS_ITS | Encounter Summary ---
Author Organization [facility] Healthcare Address [address] [place] [address] Care Team Providers Care Perpetual Inventory Clerk Name Role Phone Krishna Medina MD Primary Care Provider [phone] Reason for Visit * Diagnostic Imaging (Routine) - Closed Specialty Diagnoses / Procedures Referred By Contac t Referred To Contact Procedures Breast Imaging Screening Outside Reference Aft, Sweta Gleason MD PhD [address] [place] [address] Phone: tel: fax: Referral ID Status Reason Start Date Expiration Date Visits Re quested Visits Authorized [id number] Closed 01/19/2022 02/18/2023 1 1 Encounter Details Date Type Department Care Team (Late st Contact Info) Description 07/23/2017 Hospital Encounter [facility]iology [facility] [address] [place], [place] [phone] Social History Tobacco Use Types Packs/Day Years [...] on file Legal 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:42 PM SPECIAL POLICE OFFICER Gender Identity Not on file Sexual Orientation [...] CDT) Impressions [facility] - 01/19/2022 10:55 AM SPECIAL POLICE OFFICER These images are for Reference purposes only and have not been reviewed by [facility] Radiology. There will be no report generated by a [facility] Radiologist. Narrative [facility] - 01/19/2022 10:55 AM SPECIAL POLICE OFFICER EXAMINATION: Images For Reference Purposes Only us Sweta Conteh MD PhD IMG MAMMO PROCEDURES Final Result [facility] documented in this encounter Visit Diagnoses Not on filedocumented in this encounter Care Teams Perpetual Inventory Clerk Relationship Specialty Start Date End Date Krishna Medina MD [address] [address] PCP - General 10/15/16 03/16/19 documented as of this encounter
--- OUTSIDE RECORDS SUMMARY | 2018-08-26 | XMS_ITS | Encounter Summary ---
Author Organization [facility] Healthcare Address [address] [place] [address] Care Team Providers Care Protective Signal Operations Supervisor Name Role Phone Krishna Medina MD Primary Care Provider [phone] Reason for Visit * Diagnostic Imaging (Routine) - Closed Specialty Diagnoses / Procedures Referred By Contac t Referred To Contact Procedures Breast Imaging Screening Outside Reference Aft, Sweta Gleason MD PhD [address] [place] [address] Phone: tel: fax: Referral ID Status Reason Start Date Expiration Date Visits Re quested Visits Authorized [id number] Closed 01/19/2022 02/18/2023 1 1 Encounter Details Date Type Department Care Team (Late st Contact Info) Description 08/26/2018 Hospital Encounter [facility] Radiology [facility] [address] [place], [place] [id number] Social History Tobacco Use Types Packs/Day Years [...] on file Legal 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:42 PM FINANCE ASSISTANT Gender Identity Not on file Sexual Orientation [...] CDT) Impressions [facility] - 01/19/2022 11:04 AM FINANCE ASSISTANT These images are for Reference purposes only and have not been reviewed by [facility] Radiology. There will be no report generated by a [facility] Radiologist. Narrative [facility] - 01/19/2022 11:04 AM FINANCE ASSISTANT EXAMINATION: Images For Reference Purposes Only us Sweta Conteh MD PhD IMG MAMMO PROCEDURES Final Result [facility] documented in this encounter Visit Diagnoses Not on filedocumented in this encounter Care Teams Protective Signal Operations Supervisor Relationship Specialty Start Date End Date Krishna Medina MD [address] [address] PCP - General 10/15/16 03/16/19 documented as of this encounter
--- OUTSIDE RECORDS SUMMARY | 2019-09-25 | XMS_ITS | Encounter Summary ---
Author Organization [facility] Healthcare Address [address] [place] [address] Care Team Providers Care Pole Framer Machine Name Role Phone Krishna Medina MD Primary Care Provider Krishna Medina MD Unavailable [phone] Reason for Visit * Diagnostic Imaging (Routine) - Closed Specialty Diagnoses / Procedures Referred By Contac t Referred To Contact Procedures Breast Imaging Screening Outside Reference Aft, Sweta Gleason MD PhD [address] [place] [id number] Phone: tel: fax: Referral ID Status Reason Start Date Expiration Date Visits Re quested Visits Authorized [id number] Closed 01/19/2022 02/18/2023 1 1 Encounter Details Date Type Department Care Team (Late st Contact Info) Description 09/25/2019 Hospital Encounter [facility] Radiology [facility] [address] [place] [phone] Social History Tobacco Use Types Packs/Day Years [...] on file Legal 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:42 PM DAY CARE PROVIDER Gender Identity Not on file Sexual Orientation [...] CDT) Impressions [facility] - 01/19/2022 11:03 AM DAY CARE PROVIDER These images are for Reference purposes only and have not been reviewed by [facility] Radiology. There will be no report generated by a [facility] Radiologist. Narrative [facility] - 01/19/2022 11:03 AM DAY CARE PROVIDER EXAMINATION: Images For Reference Purposes Only us Sweta Conteh MD PhD IMG MAMMO PROCEDURES Final Result [facility] documented in this encounter Visit Diagnoses Not on filedocumented in this encounter Care Teams Pole Framer Machine Relationship Specialty Start Date End Date Krishna Medina MD [address] [address] PCP - General 03/17/19 04/08/21 Krishna Medina MD [address] [address] 03/17/19 documented as of this encounter
--- OUTSIDE RECORDS SUMMARY | 2024-12-04 10:17 | XMS_ITS | Encounter Summary ---
Author Organization [facility] Address [address] [facility] Attn: Epic Prelude ADT [place] SP[place]OW [address] Care Team Providers Care Client Operations Manager Name Role Phone Abrahan Mcgee MD Primary Care Provider [phone] Encounter Details Date Type Department Care Team (Late st Contact Info) Description 07/31/1991 Outpatient Historical Andre Ernst MD NO ADDRESS ON FILE Social History Tobacco Use Types Packs/Day Years Used Date Smoking Tobacco: Never Assessed Comments Unknown Sex and Gender Information Value Date Recorded Sex Assigned at Not on file Legal Sex Female 3:33 AM YOGHURT MAKER Gender Identity Not on file Sexual Orientation Not on file documented as of this encounter Plan of Treatment Upcoming Encounters Date Type Department Care Team (Late st Contact Info) Description 04/04/2025 11:00 AM YOGHURT MAKER Office Visit [facility] Oncology and Hematology - [place] [address] [place] [address] [address] [place] [address] Prince Mir MD [address] [facility] [address] [place] [address] documented as of this encounter Visit Diagnoses Not on filedocumented in this encounter Care Teams Client Operations Manager Relationship Specialty Start Date End Date Abrahan Mcgee MD [address] [place] [address] PCP - General Family Practice 04/03/24 documented as of this encounter
--- OUTSIDE RECORDS SUMMARY | 2024-12-04 10:17 | XMS_ITS | Encounter Summary ---
Author Organization [facility] Address [address] [place] [address] Phone Care Team Providers Care Sales Producer Name Role Phone Krishna Medina MD Unavailable [phone] Luigi Nicole Primary Care Provider Lina Yates NP Unavailable [phone] Yogesh Corbett DO Primary Care Provider [phone] Abrahan Mcgee MD Primary Care Provider [phone] Encounter Details Date Type Department Care Team (Late st Contact Info) Description 02/05/2022 Telephone [facility] Surgery [facility] Advanced [facility] 5th [place] [address] [place] [address] Akila Toussaint Social History Tobacco [...] on file Legal 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:42 PM RADIOLOGICAL TECHNOLOGIST Gender Identity Not on file Sexual Orientation Not on file documented as of this encounter Plan of Treatment Not on file documented as of this encounter Visit Diagnoses Not on filedocumented in this encounter Care Teams Sales Producer Relationship Specialty Start Date End Date Luigi Nicole PA [address] [address] PCP - General Physician Chief Operating Engineer 04/09/21 12/01/23 Yogesh Corbett DO [address] [place] [address] PCP - General Internal Medicine 12/02/23 06/05/24 Abrahan Mcgee MD [address] [place] [address] PCP - General Family Medicine 06/06/24 Krishna Medina MD [address] [address] 03/17/19 Lina Yates NP [address] [place] [address] Nurse Practitioner 11/12/22 documented as of this encounter
--- OUTSIDE RECORDS SUMMARY | 2024-12-04 10:17 | XMS_ITS | Encounter Summary ---
Author Organization [facility] Address [address] [facility] Attn: Epic Prelude ADT [place] [address] Care Team Providers Care Salesperson Flowers Name Role Phone Abrahan Mcgee MD Primary Care Provider [phone] Encounter Details Date Type Department Care Team (Late st Contact Info) Description 05/19/1993 Outpatient Historical Andre Ernst MD NO ADDRESS ON FILE Social History Tobacco Use Types Packs/Day Years Used Date Smoking Tobacco: Never Assessed Comments Unknown Sex and Gender Information Value Date Recorded Sex Assigned at Not on file Legal Sex Female 3:33 AM VETERINARY SURGERY TECHNICIAN Gender Identity Not on file Sexual Orientation Not on file documented as of this encounter Plan of Treatment Upcoming Encounters Date Type Department Care Team (Late st Contact Info) Description 04/04/2025 11:00 AM VETERINARY SURGERY TECHNICIAN Office Visit [facility] Oncology and Hematology - [place] [address] [place] [address] [address] [place] [address] Prince Mir MD [address] [facility] [address] [place] [address] documented as of this encounter Visit Diagnoses Not on filedocumented in this encounter Care Teams Salesperson Flowers Relationship Specialty Start Date End Date Abrahan Mcgee MD [address] [place] [address] PCP - General Family Practice 04/03/24 documented as of this encounter
--- OUTSIDE RECORDS SUMMARY | 2024-12-04 10:17 | XMS_ITS | Encounter Summary ---
Author Organization [facility] Address [address] [facility] Attn: Epic Prelude ADT [place] SP[place] [address] Care Team Providers Care Weaving Teacher Name Role Phone Abrahan Mcgee MD Primary Care Provider [phone] Encounter Details Date Type Department Care Team (Late st Contact Info) Description 05/10/1990 Outpatient Historical Andre Ernst MD NO ADDRESS ON FILE Social History Tobacco Use Types Packs/Day Years Used Date Smoking Tobacco: Never Assessed Comments Unknown Sex and Gender Information Value Date Recorded Sex Assigned at Not on file Legal Sex Female 3:33 AM MICROFILM DUPLICATING UNIT SUPERVISOR Gender Identity Not on file Sexual Orientation Not on file documented as of this encounter Plan of Treatment Upcoming Encounters Date Type Department Care Team (Late st Contact Info) Description 04/04/2025 11:00 AM MICROFILM DUPLICATING UNIT SUPERVISOR Office Visit [facility] Oncology and Hematology - [place] [address] [place] [address] [address] [place] [address] Prince Mir MD [address] [facility] [address] [place] [address] documented as of this encounter Visit Diagnoses Not on filedocumented in this encounter Care Teams Weaving Teacher Relationship Specialty Start Date End Date Abrahan Mcgee MD [address] [place] [address] PCP - General Family Practice 04/03/24 documented as of this encounter
--- OUTSIDE RECORDS SUMMARY | 2024-12-04 10:17 | XMS_ITS | Clinical Summary ---
Author Organization [employer] [facility] Address [address] [place] [address] Phone Care Team Providers Care Water Supervisor Name Role Phone Abrahan Mcgee MD Primary Care Provider [phone] Allergies Active Allergy Reactions Criticality Noted Date [...] 9 Active fluticasone propionate (FLONASE) 50 mcg/spray [place], Suspension nasal inhaler Administer 2 Sprays in [...] at bedtime. Active anastrozole (ARIMIDEX) 1 mg tabletIndicatio ns:Ductal [...] mg by mouth 2 times daily. Active Active Problems Problem Noted Date Diagnosed Date HTN (hypertension), benign 09/18/2019 Vaginal atrophy 09/18/2019 Gastritis 09/18/2019 Non-seasonal allergic rhinitis due to pollen Restless leg syndrome 09/18/2019 Encounters Date Type Department Care Team Description 10/31/2024 External Device Data STL ABSTRACTION Provider, Abstract 10/17/2024 External Device Data STL ABSTRACTION Provider, Abstract 10/04/2024 External Device Data STL ABSTRACTION Provider, Abstract 10/03/2024 Orders Only [facility] Oncology and Hematology [facility] [address] [place] [address] Prince Mir MD 10/02/2024 11:45 AM CDT Office Visit [facility] Oncology and Hematology [facility] [address] [place] [address] Prince Mir MD Ductal carcinoma in situ (DCIS) of right breast (Primary Dx) 10/02/2024 Orders Only [facility] Oncology and Hematology [facility] [address] [place] [address] Prince Mir MD 09/13/2024 External Device Data [...] file Legal Sex 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 Gender Identity Not on file Sexual Orientation [...] Contact Info) Description 04/04/2025 11:00 AM BELL HOLE DIGGER Office Visit [facility] Oncology and Hematology - [place] [address] [place] [address] [facility] [address] [place] [address] Prince Mir MD [address] [facility] [address] [place] [address] Health Maintenance Due Date Last [...] METABOLIC PANEL Routine 10/02/2024 11:27 AM CDT from Last 3 Months Results * BASIC METABOLIC PANEL (10/02/2024 12:47 PM CDT) Blood us Prince Mir MD CHEMISTRY ORDERABLES Final Resu lt * CBC WITH AUTODIFFERENTIAL (10/02/2024 12:45 PM CDT) Blood us Prince Mir MD HEMATOLOGY ORDERABLES Final Res ult * COMPREHENSIVE METABOLIC PANEL (10/02/2024 11:27 AM CDT) Blood us Prince Mir MD CHEMISTRY ORDERABLES Final Resu lt from Last 3 Months Insurance [employer] [facility] [employer] PPO MCR Care Teams Water Supervisor Relationship Specialty Start Date End Date Abrahan Mcgee MD [address] [place] [address] PCP - General Family Practice 04/03/24
--- OUTSIDE RECORDS SUMMARY | 2024-12-04 10:17 | XMS_ITS | Data Portability ---
Author Organization [place] [facility] [employer], Main Office Address [address] [place] [address] Care Team Providers Care Cook Enchilada Name Role Phone SANTA JEAN Primary Care Provider SANTA JEAN Referring Provider Assessment Encounter Date Assessment Date Assessment LastModified by Organization Details LastModified Time 05/22/2024 05/22/2024 This note is dictated and transcribed by [employer]. Driver'S License Reviewing Officer variances may occur. Despite proofreading, typographical errors may occur. Occasional wrong-word or 'cbccx-o-fqzo' substitutions may have occurred due to the inherent limitations of voice recording. Read the chart carefully and recognize, using context, where substitutions have occurred. Not available 05/22/2024 12:27:21 06/26/2024 06/26/2024 This note is dictated and transcribed by [employer]. Driver'S License Reviewing Officer variances may occur. Despite proofreading, typographical errors may occur. Occasional wrong-word or 'pbapl-a-kzpl' substitutions may have occurred due to the inherent limitations of voice recording. Read the chart carefully and recognize, using context, where substitutions have occurred. Not available 06/27/2024 13:17:46 07/27/2024 07/27/2024 This note is dictated and transcribed by [employer]. Driver'S License Reviewing Officer variances may occur. Despite proofreading, typographical errors may occur. Occasional wrong-word or 'zqfeu-j-ipqj' substitutions may have occurred due to the inherent limitations of voice recording. Read the chart carefully and recognize, using context, where substitutions have occurred. Not available 07/27/2024 11:13:14 Plan of Treatment Reminders Order Date Submit Date Provider Last Modified By Organization Details Last Modified Time Details Appointments None recorded. Lab None recorded. Referral None recorded. Procedures None recorded. Surgeries None recorded. Imaging US, duplex, arterial, lower extremity, complete - PLEASE CALL PT TO SCHEDULE AN APPT... THANK YOU! 2024 025 [facility] (Radiology), [address] [place], [address], 16:26:41 Medication Orders ketoconazol e 2 % topical cream 2024 025 [facility] [address], [address] [facility], [place], [address], 11:05:35 Patient TargetsNo targets recorded. Patient InstructionsNo instructions recorded. Reason for Referral None Reported. Results Created Date Observation Date Name Description Value Unit Range Abnormal Flag Note LastModifiedBy Organization Detail LastModifiedTime 06/13/1906/01/2024 US, duple x, arter ial, lower extre mity, compl ete No observ ation record ed. [email or web address] [facility] (Radiology) [address] [place], [address], 06/14/2024 11:14:40 Result Notes None recorded. Problems Name Problem SNOMED Code Status Onset Date Resolution Date Notes Provider Name and Address Organization Details Recorded Time Liver enzymes outside reference range 325157232 Active Not Available [facility] 3 08:10:50 Insomnia 637322783 Active Not Available [facility] 3 08:10:50 Cataract 803121437 Active Not Available [facility] 3 08:10:50 Gastroesop hageal reflux disease 607381336 Active Not Available [facility] 3 08:10:50 Osteoarthr itis of hip 335762882 Active Not Available [facility] 3 08:10:50 Enthesopat hy of hip region 63599475 Active Not Available [facility] 3 08:10:50 Bronchitis 16254630 Active Not Available [facility] 3 08:10:51 Vitamin D deficiency 58694488 Active Not Available [facility] 3 08:10:51 Depressive disorder 72890504 Active Not Available [facility] 3 08:10:51 Hypertensi ve disorder 47637188 Active Not Available [facility] 3 08:10:51 Impairment of balance 043693608 Active Not Available [facility] 3 08:10:51 Cough 79082544 Active Not Available [facility] 3 08:10:51 Hyperlipid emia 17644267 Active Not Available [facility] 3 08:10:51 Disorder of bursa of shoulder region 20637667 Active Not Available [facility] 3 08:10:51 Urinary tract infectious disease 71524372 Active Not Available [facility] 3 08:10:51 Bilateral cataracts 06809680 Active Not Available [facility] 3 08:10:51 Dystrophia unguium 26080747 Active 2024 Sandor Hardin DPM [address], [address], [place], [address] , [employer] [facility] [employer] [facility] 5 12:27:26 Ingrowing toenail 546329050 Active 2024 Sandor Hardin DPM [address], [address], [place], [address] , [employer] [facility] [employer] [facility] 5 12:27:34 Peripheral arterial occlusive disease 195444679 Active 2024 Sandor Hardin DPM [address], [address], [place], [address] , [employer] [facility] [employer] [facility] 5 12:51:48 Pain of toe of right foot 5499802079818 01 Active 2024 Sandor Hardin DPM [address], [address], [place], [address] , [employer] [facility] [employer] [facility] 5 12:51:52 Problem Notes None recorded. Procedures Surgical History Date Name Laterality Status Provider Name and Address Organization Details Recorded Time 025 Toenail avulsion completed Sandor Hardin DPM [address], [address], [place], [address], [facility] 07/27/2024 11:13:09 025 Nail Debridement completed Sandor Hardin, GENA [address], [address], [place], [address], [facility] 05/22/2024 12:51:07 998 Gallbladder Surgery completed Not Available [facility] 04/29/2022 08:07:27 997 Unlisted px femur/knee completed Not Available [facility] 04/29/2022 08:07:27 EGD completed Padmini Lew [place] [facility] 05/22/2024 12:09:34 procedure on eustachian tube completed Padmini Lew [place] [facility] 05/22/2024 12:09:40 esophageal hiatus hernia repair completed Padmini [facility] 05/22/2024 12:09:52 Colonoscopy completed Padmini Hackett [place] [facility] 05/22/2024 12:10:00 Hemorrhoidectomy completed Padmini Hackett [facility] 05/22/2024 12:10:08 Hip surgery completed Padmini Hackett [place] [facility] 05/22/2024 12:10:18 Cataract Surgery completed Padmini Lew [facility] 05/22/2024 12:10:25 Imaging Results None recorded. Procedure Notes None recorded. Medical Equipment None Reported. Allergies Allergen ID Allergen Name Allergen Category Reaction Reaction Severity Criticality Documentation Date Start Date Code Code System Note Provider Name and Address Organization Details Recorded Time Product containin g hydrogen/ potassium adenosine triphosph atase enzyme system inhibitor (product) medicatio n itching Not available Not available 04/29/2022 54950 5006 SNOMED Not Available [facility] 3 08:16:03 20437 omeprazol e medicatio n Not available Not available Not available 04/29/2022 7646 RxNorm Not Available [facility] 3 08:16:03 86716 Nexium medicatio n Not available Not available Not available 04/29/2022 74242 9 RxNorm Not Available [facility] 3 08:16:03 69535 amoxicill in medicatio n nausea Not available Not available 04/29/2022 723 RxNorm Not Available [facility] 3 08:16:03 Medications Name Sig Start Date Stop Date Status Note LastModified by Organization Details LastModified Time anastrozo le 1 mg tablet TAKE 1 TABLET BY MOUTH ONCE DAILY active Not Available Not Available No t Available doxycycli ne hyclate 100 mg capsule TAKE 1 CAPSULE BY MOUTH ONCE DAILY active Not Available Not Available No t Available ropinirol e 1 mg tablet Take 1 tablet every day by oral route at bedtime. 02/12 completed Not Available Not Available Not Available azithromy hetal 250 mg tablet TAKE 2 TABLETS BY MOUTH ON DAY 1, AND THEN TAKE 1 TABLET BY MOUTH ONCE A DAY ON DAY 2 THROUGH DAY 5 active Not Available Not Available No t Available cephalexi n 250 mg capsule active Not Available Not Available Not Available ondansetr on HCl 4 mg tablet TAKE 1 TO 2 TABLETS BY MOUTH EVERY 8 HOURS NEEDED FOR NAUSEA AND VOMITING active Not Available Not Available No t Available clobetaso l 0.05 % topical cream GEOVANNA AA BID PRF 7 DAYS active Not Available Not Available No t Available amlodipin e 5 mg tablet TAKE 1 TABLET BY MOUTH ONCE DAILY active Not Available Not Available No t Available tramadol 50 mg tablet TAKE 1 TABLET BY MOUTH TWICE A DAY NEEDED FOR PAIN active Not Available Not Available No t Available spironola ctone 25 mg tablet Take 1 tablet every day by oral route. 02/12 completed Not Available Not Available Not Available guaifenes in 200 mg tablet Take 1 tablet every 4 hours by oral route as needed. active Not Available Not Available No t Available terconazo le 80 mg vaginal supposito ry active Not Available Not Available Not Available oxycodone -acetamin ophen 5 mg-325 mg tablet TAKE 1 TABLET BY MOUTH EVERY 4 HOURS NEEDED FOR PAIN . DO NOT EXCEED 6 PER 24 HOURS active Not Available Not Available No t Available alprazola m 0.25 mg tablet TAKE 1 TABLET BY MOUTH THREE TIMES DAILY NEEDED FOR ANXIETY active Not Available Not Available No t Available ranitidin e 75 mg tablet Take 1 tablet twice a day by oral route. 2014 active not taking at this time causes itching Not Available Not Available Not Available amitripty line 10 mg tablet TAKE 1 TABLET BY MOUTH EVERY DAY AT BEDTIME active Not Available Not Available No t Available amlodipin e 10 mg tablet TAKE 1 TABLET BY MOUTH EVERY DAY active Not Available Not Available No t Available ropinirol e 2 mg tablet TAKE 1 TABLET BY MOUTH EVERYDAY AT BEDTIME active Not Available Not Available No t Available nortripty line 10 mg capsule Take 1 capsule every day by oral route at bedtime. 02/12 completed Not Available Not Available Not Available Tranxene T-Tab 3.75 mg tablet Take 1 tablet twice a day by oral route. 2020 active Not Available Not Available Not Avai lable hyoscyami ne 0.125 mg sublingua l tablet 1 tablet as needed up to 4 times a day 02/12 completed Not Available Not Available Not Available gabapenti n 300 mg capsule TAKE 1 CAPSULE BY MOUTH AT BEDTIME THEN INCREASE TO 1 TWICE DAILY AFTER 3-5 DAYS, YOU MAY INCREASE UP TO 3 TIME DAILY IF NECESSAR Y FOR TREMORS AND RESTLESS LEG SYNDROME active Not Available Not Available No t Available monteluka st 10 mg tablet TAKE 1 TABLET BY MOUTH EVERY DAY AT BEDTIME active Not Available Not Available No t Available gabapenti n 100 mg capsule TAKE 1 CAPSULE BY MOUTH TWICE DAILY MAY INCREASE TO 2 CAPSULES 2-3 TIMES A DAY IF NECESSAR Y active Not Available Not Available No t Available clobetaso l 0.05 % topical ointment APPLY TOPICALL Y TWICE A DAY FOR 4 WEEKS active Not Available Not Available No t Available lorazepam 1 mg tablet TAKE 1 TABLET BY MOUTH NEEDED FOR MRI. TO BE TAKEN 1 HOUR BEFORE MRI active Not Available Not Available No t Available azelastin e 137 mcg (0.1 %) nasal spray INSTILL 2 SPRAYS IEN BID active Not Available Not Available No t Available Pepcid 20 mg tablet Take 1 tablet every day by oral route. 2020 active Not Available Not Available Not Avai lable cefuroxim e axetil 500 mg tablet TK 1 T PO Q 12 H active Not Available Not Available No t Available levofloxa hetal 500 mg tablet active Not Available Not Available No t Available methylpre dnisolone 4 mg tablets in a dose pack TK UTD active Not Available Not Available Not Available Vitamin D2 1,250 mcg (50,000 unit) capsule 1 capsule once a week active Not Available Not Available No t Available ketoconaz ole 2 % topical cream APPLY TO THE AFFECTED AREA(S) OF RIGHT GREAT TOENAIL BY TOPICAL ROUTE ONCE DAILY active Not Available Not Available No t Available cefdinir 300 mg capsule TAKE 1 CAPSULE BY MOUTH TWICE A DAY FOR 10 DAYS FOR INFECTIO N active Not Available Not Available No t Available fluticaso ne propionat e 50 mcg/actua tion nasal spray,kyle pension Inhale 1 spray every day by intranas al route as needed. 02/12 completed Not Available Not Available Not Available ropinirol e 4 mg tablet TAKE 1 TABLET BY MOUTH EVERY DAY AT BEDTIME active Not Available Not Available No t Available Estrace 0.01% (0.1 mg/gram) vaginal cream 02/12 completed Not Available Not Available Not Available escitalop david 10 mg tablet Take 1 tablet every day by oral route. 02/12 completed Not Available Not Available Not Available Vigamox 0.5 % eye drops active Not Available Not Available Not Available trospium 20 mg tablet TAKE 1 TABLET BY MOUTH TWICE DAILY active Not Available Not Available No t Available pregabali n 25 mg capsule TAKE 1 CAPSULE BY MOUTH TWICE DAILY active Not Available Not Available No t Available Vitamin C 2020 active Not Available Not Available Not Avai lable aspirin 81mg once a day 02/12 completed Not Available Not Available Not Available vitamin E 2020 active Not Available Not Available Not Avai lable famotidin e active Not Available Not Available Not Available Gaviscon Extra Strength active Not Available Not Available Not Available Gaviscon OTC as needed 02/12 completed Not Available Not Available Not Available multivita min 2020 active Not Available Not Available Not Avai lable pregabali n active Not Available Not Available Not Available ProAir HFA 90 mcg/actua tion aerosol inhaler Inhale 2 puffs every 4-6 hours by inhalati on route as needed. active Not Available Not Available No t Available Voltaren 1 % topical gel APPLY 2 GRAM TO THE AFFECTED AREA(S) BY TOPICAL ROUTE 4 TIMES PER DAY 02/12 completed as needed Not Available Not Available Not Available tetanus toxoid,ad sorbed (PF) 5 LF unit/0.5 mL intramusc ular suspensio n active Not Available Not Available Not Available Durezol 0.05 % eye drops active Not Available Not Available No t Available Creon 24,000-76 ,000-120, 000 unit capsule,d elayed release TK 2 CS WITH MEALS AND WITH SNACKS AND 1 HS 02/12 completed Not Available Not Available Not Available Zyrtec 10 mg capsule Take 1 capsule by oral route as needed. 2014 active Not Available Not Available Not Avai lable Mucus Relief ER 600 mg tablet, extended release active Not Available Not Available Not Available loratadin e 10 mg capsule Take 1 capsule every day by oral route. 2020 active Not Available Not Available Not Avai lable Systane (PF) active Not Available Not Available Not Available Ilevro 0.3 % eye drops,kyle pension active Not Available Not Available Not Available Virtussin AC 10 mg-100 mg/5 mL oral liquid active Not Available Not Available Not Available Fluzone High-Dose (PF) 180 mcg/0.5 mL intramusc ular syringe INJECT 0.5 ML INTRAMUS CULARLY DIRECTED . active Not Available Not Available No t Available clorazepa te dipotassi um 3.75 mg capsule Take 1 capsule by oral route as needed. 2014 active up to 3 times a day Not Available Not Available Not Available GenTeal Tears Mild active Not Available Not Available Not Available Zenpep 25,000 unit-79,0 00 unit-105, 000 unit capsule,d elayed release TAKE 2 CAPSULES BY MOUTH WITH MEALS AND 1 CAPSULE WITH SNACKS DIRECTED active Not Available Not Available No t Available Vitals Date Recorded Body height Body mass index (BMI) Body weight Heart rate Respiratory rate Oxygen saturation Oxygen saturation in Arterial blood by Pulse oximetry Provider Name and Address Organization Details Last Updated DateTime 5 149.86 cm 23.2 kg/m2 00596.1 2 g 89 /min 14 /min 97 % 97 % Padmini [facility] [employer] [facility] 5 11:59:55 Date Recorded Body height Body mass index (BMI) Body weight Heart rate Respiratory rate Oxygen saturation Oxygen saturation in Arterial blood by Pulse oximetry Systolic And Diastolic Provider Name and Address Organization Details Last Updated DateTime 5 149.86 cm 23.2 kg/m2 57548.1 2 g 83 /min 14 /min 98 % 98 % 147/78 mm[Hg] Padmini Hackett [employer] 5 15:03:33 Date Recorded Body height Body mass index (BMI) Body weight Provider Name and Address Organization Details Last Updated DateTime 07/27/2024 149.86 cm 23.2 kg/m2 12009.12 g García [facility] [employer] [facility] 07/27/2024 10:37:57 Date Recorded Heart rate Respiratory rate Oxygen saturation Oxygen saturation in Arterial blood by Pulse oximetry Systolic And Diastolic Provider Name and Address Organization Details Last Updated DateTime 92 /min 14 /min 98 % 98 % 184/91 mm[Hg] Padmini Hackett [facility] 10:38:56 Date Recorded Body height Body mass index (BMI) Body weight Heart rate Respiratory rate Oxygen saturation Oxygen saturation in Arterial blood by Pulse oximetry Systolic And Diastolic Provider Name and Address Organization Details Last Updated DateTime 149.86 cm 23.2 kg/m2 49471.1 2 g 91 /min 14 /min 98 % 98 % 174/91 mm[Hg] Padmini Hackett [employer] 10:52:39 Date Recorded Body mass index (BMI) Body height Body weight Provider Name and Address Organization Details Last Updated DateTime 08/16/2020 27 kg/m2 147.32 cm 15893.42 g Not Available [facility] 04/29/2022 08:07:36 Social History Question Answer Notes LastModified by [employer] Details LastModified Time Tobacco Smoking Status Former Smoker quit in 2000 Not Available [facility] 04/29/2022 08:07:02 What Is Your Level Of Caffeine Consumption? Occasional Information not available 05/22/2024 What Was The Date Of Your Most Recent Tobacco Screening? 07/27/2024 [email or web address] Information not available 07/27/2024 Has Tobacco Cessation Counseling Been Provided? No Information not available 05/22/2024 Sex: Unknown Functional Status Question Answer Note LastModified by [employer] Details LastModified Time Do you use any illicit or recreational drugs? No Information not available 05/22/2024 Do you or have you ever used any other forms of tobacco or nicotine? No Information not available 05/22/2024 What is your level of alcohol consumption? None [id number] Information not available 04/29/2022 What is your occupation? retired [id number] Information not available 04/29/2022 Mental Status None recorded. Family History Relationship Description Onset Age of this Age Resolved Age Notes LastModified by Organization Details LastModified Time Unspecified Relation Family history of malignant neoplasm [id number] Not available 04/29/2022 08:07:27 Sister Hypertensive disorder Not available 2024 12:05:44 Sister Diabetes mellitus Not available 2024 12:05:33 Sister Seizure disorder Not available 2024 12:06:13 Sister Kidney disease Not available 2024 12:06:31 Brother Kidney disease Not available 2024 12:06:29 Brother Diabetes mellitus Not available 2024 12:05:38 Brother Hypertensive disorder Not available 2024 12:05:51 Brother Chronic obstructive pulmonary disease Not available 2024 12:06:52 Father Malignant neoplasm of brain Not available 2024 12:05:07 Notes:lymphoma of mesentary- sister spinal stenosis- sister cardio vascular disease, bone cancer-sister, myeloprolifeative, brain tumor Medical History Condition Response ARTHRITIS Y HYPERTENSION Y Gynecological HistoryNo gynecological history recorded. Obstetrics History GPAL:G 0 P 0 0 0 0 Immunizations Vaccine Type Date Status Note Provider Nam e and Address Organization Details Recorded Time influenza nasal, unspecified formulation 4 completed Not Available [facility] 04/29/2022 08:15:52 tetanus toxoid, adsorbed 5 completed Not Available [facility] 04/29/2022 08:15:52 Td (adult), 2 Lf tetanus toxoid, preservative free, adsorbed 5 completed Not Available [facility] 04/29/2022 08:15:52 pneumococcal polysaccharide PPV23 5 completed Not Available [facility] 04/29/2022 08:15:52 Past Encounters Encounter ID Performer Location Encounter Start Date Encounter Closed Date Diagnosis/Indication Diagnosis SNOMED-CT Code Diagnosis ICD10 Code Diagnosis IMO Codes Diagnosis Note [id number] Júnior Garcia MD [facility] [place] [address] [facility] [address] [place] [address] 08/16/2020 00:00:00 08/16/2020 12:34:02 [id number] Sandor Hardin DPM [facility] [place] [address] [facility] [address] [place] [address] 05/22/2024 11:50:56 05/24/2024 09:30:16 Dystrophia unguium 46652335 L60.3 Nails 1 through 10 were debrided with sharp mechanical debridemen t without incident. Nails were debrided and greater than 50% length and thickness where needed. Ingrowing toenail 414643 009 L60.0 right great toenailDis cuss treatment optionsObt ain peripheral vascular testing to ensure adequate blood flow for healing Peripheral arterial occlusive disease 524029176 I73.9 obtain noninvasiv e vascular testing for possible procedure Pain of to e of right foot 9583312228 20568 M79.674 right great toe as above [id number] [facility] [place] [address] [facility] [facility] [address] [address] 06/26/2024 14:54:10 06/29/2024 09:08:04 Peripheral arterial occlusive disease 956074091 I73.9 obtain non-invasi ve vascular testing for possible procedurer eviewed duplex arterial ultrasound report with patient- mild disease bilateral Dystrophia unguium 14325 009 L60.3 right great toenailfol low-up for total nail avulsion right great toenail [id number] Sandor Hardin DPM [facility] [place] [address] [facility] [address] [place] [address] 07/27/2024 10:33:29 07/31/2024 12:08:08 Dystrophia unguium 23379966 L60.3 right great toenailtot al nail avulsion performed today without incidentCo nsent signedWoun d care reviewed with the patientFol low-up in 1 week [id number] Sandor Hardin DPM [facility] [place] [address] [place] [address] 08/07/2024 10:44:50 08/08/2024 11:10:25 Dystrophia unguium 66904365 L60.3 right great toenailtot al nail avulsion 90% healed- continue daily wound care until completely healedWoun d care reviewed with the patientFol low-up in 2 months Health Concerns Section Related Observation LastModified by Organization Detai ls LastModified Time None Recorded Concern Status LastModified by Organization Details LastModified Time None Recorded Advance Directives Directive None Recorded Payers Insurance Date Sequence Insurance Name Policy Number Policy Vann Covered Member ID Vann Member ID Guarantor Name 2024 1 COUNT INCLUDES THE [facility] (MEDICARE REPLACEMENT/ ADVANTAGE - PPO) [id number] 1 M Genna Sanders [id number] Genna Sanders 06/26/2024 1 [facility] (MEDICARE REPLACEMENT/ ADVANTAGE - PPO) [id number] M Genna Sanders [id number] M Genna Sanders Notes Date Note Type Note Provider Name and Address Organization Details Recorded Time 05/22/2024 text/html . Patient is an 80-year-old female she presents to the office with complaints of pain to her right great toe. Patient states the toe is incurvated she denies any redness drainage but has pain to the area. Patient states it is sharp and she states it is 10/10 pain. Patient states with walking and pressure as more painful. Patient denies any other complaints. Sandor Hardin DPM [address], [place], [address], [facility] [employer] [facility] 05/22/2024 12:52:40 06/26/2024 text/html . Patient is a 80-year-old female she returns for follow-up on peripheral arterial disease she had ultrasound which shows mild disease she states that she would like to proceed despite possible risks of wounds to the toe for total nail avulsion. Patient denies any other complaints. Sandor Hardin DPM [address], [place], [address], [employer] [facility] [employer] [facility] 06/27/2024 13:19:27 07/27/2024 text/html . Patient is an 88-year-old female she presents the office for nail dystrophy of the right great toenail she is here for a total nail avulsion. Patient denies any other complaints. Sandor Hardin DPM [address] [address], [place], [address], [employer] [facility] [facility] 07/27/2024 11:13:45 08/07/2024 text/html . Patient is a 88-year-old female who returns the office for follow-up on onychomycosis to which she just underwent a total nail avulsion. Patient is 90% healed at the nail bed. Patient denies any pain to the toe. Patient denies any fever, chills, nausea vomiting. Patient has continued to keep the area clean and covered. Patient denies any other complaints. Sandor Hardin DPM [address] [address], [place], [address], [employer] [facility] [employer] [facility] 08/07/2024 11:05:37 OBGyn Episode No OBEpisode recorded.
--- OUTSIDE RECORDS SUMMARY | 2024-12-04 10:17 | XMS_ITS | Encounter Summary ---
Author Organization [facility] Address [address] [facility] Attn: Epic Prelude ADT [place] SPARROW [address] Care Team Providers Care Washing And Screening Plant Supervisor Name Role Phone Abrahan Mcgee MD Primary Care Provider [phone] Encounter Details Date Type Department Care Team (Late st Contact Info) Description 05/03/1990 Outpatient Historical Andre Ernst MD NO ADDRESS ON FILE Social History Tobacco Use Types Packs/Day Years Used Date Smoking Tobacco: Never Assessed Comments Unknown Sex and Gender Information Value Date Recorded Sex Assigned at Not on file Legal Sex Female 3:33 AM CORPORATE SAFETY DIRECTOR Gender Identity Not on file Sexual Orientation Not on file documented as of this encounter Plan of Treatment Upcoming Encounters Date Type Department Care Team (Late st Contact Info) Description 04/04/2025 11:00 AM CORPORATE SAFETY DIRECTOR Office Visit [facility] Oncology and Hematology - [place] [address] [place] [address] [address] [place] [address] Prince Mir MD [address] [facility] [address] [place] [address] documented as of this encounter Visit Diagnoses Not on filedocumented in this encounter Care Teams Washing And Screening Plant Supervisor Relationship Specialty Start Date End Date Abrahan Mcgee MD [address] [place] [address] PCP - General Family Practice 04/03/24 documented as of this encounter
--- OUTSIDE RECORDS SUMMARY | 2024-12-04 10:17 | XMS_ITS | Encounter Summary ---
Author Organization [facility] Address [address] [facility] Attn: Epic Prelude ADT [place] SPARR[place] [address] Care Team Providers Care Printed Circuit Boards Router Name Role Phone Abrahan Mcgee MD Primary [...] on file Legal Sex Female 3:33 AM SAIL REPAIRER Gender Identity Not on file Sexual Orientation Not on file documented as of this encounter Plan of Treatment Upcoming Encounters Date Type Department Care Team (Late st Contact Info) Description 04/04/2025 11:00 AM SAIL REPAIRER Office Visit [facility] Oncology and Hematology - [place] [address] [place] [address] [address] [place] [address] Prince Mir MD [address] [facility] [address] [place] [address] documented as of this encounter Visit Diagnoses Not on filedocumented in this encounter Care Teams Printed Circuit Boards Router Relationship Specialty Start Date End Date Abrahan Mcgee MD [address] [place] [address] PCP - General Family Practice 04/03/24 documented as of this encounter
--- OUTSIDE RECORDS SUMMARY | 2024-12-04 10:17 | XMS_ITS | Encounter Summary ---
Author Organization [facility] Address [address] [facility] Attn: Epic Prelude ADT [place] SPARR[place] [address] Care Team Providers Care Americanization Teacher Name Role Phone Abrahan Mcgee MD Primary Care Provider [phone] Encounter Details Date Type Department Care Team (Late st Contact Info) Description 09/11/1988 Outpatient Historical Andre Ernst MD NO ADDRESS ON FILE Social History Tobacco Use Types Packs/Day Years Used Date Smoking Tobacco: Never Assessed Comments Unknown Sex and Gender Information Value Date Recorded Sex Assigned at Not on file Legal Sex Female 3:33 AM CHEMICAL MAKER Gender Identity Not on file Sexual Orientation Not on file documented as of this encounter Plan of Treatment Upcoming Encounters Date Type Department Care Team (Late st Contact Info) Description 04/04/2025 11:00 AM CHEMICAL MAKER Office Visit [facility] Oncology and Hematology - [place] [address] [place] [address] [address] [place] [address] Prince Mir MD [address] [facility] [address] [place] [address] documented as of this encounter Visit Diagnoses Not on filedocumented in this encounter Care Teams Americanization Teacher Relationship Specialty Start Date End Date Abrahan Mcgee MD [address] [place] [address] PCP - General Family Practice 04/03/24 documented as of this encounter
--- OUTSIDE RECORDS SUMMARY | 2024-12-04 10:18 | XMS_ITS | Encounter Summary ---
Author Organization [facility] Address [address] [place] [address] Care Team Providers Care Manager Program Name Role Phone Abrahan Mcgee MD Primary Care Provider [phone] Encounter Details Date Type Department Care Team (Latest Contact Info) Description 03/22/2001 Outpatient Historical HIS [facility] ЕКАТЕРИНА Ernst, Andre Guardado MD NO ADDRESS ON FILE BENIGN HYPERTENSION (Primary Dx) Social History Tobacco Use Types Packs/Day Years Used Date Smoking Tobacco: Never Assessed Comments Unknown Sex and Gender Information Value Date Recorded Sex Assigned at Not on file Legal Sex Female 3:33 AM BOILER CONTROL ROOM OPERATOR Gender Identity Not on file Sexual Orientation Not on file documented as of this encounter Plan of Treatment Upcoming Encounters Date Type Department Care Team (Late st Contact Info) Description 04/04/2025 11:00 AM BOILER CONTROL ROOM OPERATOR Office Visit [facility] Oncology and Hematology - [place] [address] [place] [address] [address] [place] [address] [place] [address] [place] [address] [address] [place] [address] documented as of this encounter Visit Diagnoses Diagnosis Essential hypertension, benign- Primary documented in this encounter Care Teams Manager Program Relationship Specialty Start Date End Date Abrahan Mcgee MD [address] [place] [address] PCP - General Family Practice 04/03/24 documented as of this encounter
--- OUTSIDE RECORDS SUMMARY | 2024-12-04 10:18 | XMS_ITS | Encounter Summary ---
Author Organization [facility] Address [address] [place] [address] Care Team Providers Care Human Resources Leader Name Role Phone Abrahan Mcgee MD Primary Care Provider [phone] Encounter Details Date Type Department Care Team (Latest Contact Info) Description 10/29/2000 Outpatient Historical HIS [facility] ЕКАТЕРИНА Ernst, Andre Guardado MD NO ADDRESS ON FILE Backache, unspecified (Primary Dx) Social History Tobacco Use Types Packs/Day Years Used Date Smoking Tobacco: Never Assessed Comments Unknown Sex and Gender Information Value Date Recorded Sex Assigned at Not on file Legal Sex Female 3:33 AM CASINO WORKER Gender Identity Not on file Sexual Orientation Not on file documented as of this encounter Plan of Treatment Upcoming Encounters Date Type Department Care Team (Late st Contact Info) Description 04/04/2025 11:00 AM CASINO WORKER Office Visit [facility] Oncology and Hematology - [place] [address] [facility] [address] [place] [address] Prince Mir MD [address] [facility] [address] [place] [address] documented as of this encounter Visit Diagnoses Diagnosis Backache, unspecified- Primary documented in this encounter Care Teams Human Resources Leader Relationship Specialty Start Date End Date Abrahan Mcgee MD [address] [place] [address] PCP - General Family Practice 04/03/24 documented as of this encounter
--- OUTSIDE RECORDS SUMMARY | 2024-12-04 10:18 | XMS_ITS | Encounter Summary ---
Author Organization [facility] Address [address] [place] [address] Care Team Providers Care Physician Assistant Surgery Name Role Phone Abrahan Mcgee MD Primary Care Provider [phone] Encounter Details Date Type Department Care Team (Late st Contact Info) Description 06/05/2004 Outpatient Historical HIS [facility] Andre Ernst MD NO ADDRESS ON FILE Social History Tobacco Use Types Packs/Day Years Used Date Smoking Tobacco: Never Assessed Comments Unknown Sex and Gender Information Value Date Recorded Sex Assigned at Not on file Legal Sex Female 3:33 AM SUPERVISOR PARTICLEBOARD Gender Identity Not on file Sexual Orientation Not on file documented as of this encounter Plan of Treatment Upcoming Encounters Date Type Department Care Team (Late st Contact Info) Description 04/04/2025 11:00 AM SUPERVISOR PARTICLEBOARD Office Visit [facility] Oncology and Hematology - [place] [address] [place] [address] [address] [place] [address] Prince Mir MD [address] [facility] [address] [place] [address] documented as of this encounter Visit Diagnoses Not on filedocumented in this encounter Care Teams Physician Assistant Surgery Relationship Specialty Start Date End Date Abrahan Mcgee MD [address] [place] [address] PCP - General Family Practice 04/03/24 documented as of this encounter
--- OUTSIDE RECORDS SUMMARY | 2024-12-04 10:18 | XMS_ITS | Encounter Summary ---
Author Organization [facility] Address [address] [place] [address] Care Team Providers Care Air Sampler Name Role Phone Abrahan Mcgee MD Primary Care Provider [phone] Encounter Details Date Type Department Care Team (Late st Contact Info) Description 03/29/2002 Outpatient Historical HIS [facility] Andre Ernst MD NO ADDRESS ON FILE HEADACHE (Primary Dx) Social History Tobacco Use Types Packs/Day Years Used Date Smoking Tobacco: Never Assessed Comments Unknown Sex and Gender Information Value Date Recorded Sex Assigned at Not on file Legal Sex Female 3:33 AM INTERIOR DESIGN CONSULTANT Gender Identity Not on file Sexual Orientation Not on file documented as of this encounter Plan of Treatment Upcoming Encounters Date Type Department Care Team (Late st Contact Info) Description 04/04/2025 11:00 AM INTERIOR DESIGN CONSULTANT Office Visit [facility] Oncology and Hematology - [address] [place] [address] Prince Mir MD [address] [facility] [address] [place] [address] documented as of this encounter Visit Diagnoses Diagnosis Headache(784.0)- Primary Headache documented in this encounter Care Teams Air Sampler Relationship Specialty Start Date End Date Abrahan Mcgee MD [address] [place] [address] PCP - General Family Practice 04/03/24 documented as of this encounter
--- OUTSIDE RECORDS SUMMARY | 2024-12-04 10:18 | XMS_ITS | Patient Health Record ---
Author Organization [facility] Address [address] [address] [place] [address] Care Team Providers Care Line Driver Name Role Phone Luigi Peng Primary Care Provider Dhara MURCIA SUCTION PLATE CARRIER CLEANER, MICHAELLE Unavailable [phone] Allergies Allergen (clinical drug ingredient) Drug/Non [...] tablet Orally Twice a day Unknown Zenpep [id number] UNIT TAKE 2 CAPSULES BY MOUTH WITH [...] Problem Gastro-esophagea l reflux disease without esophagitis (665439876) Gastro-esophage al reflux disease without esophagitis (K21.9) Active confirmed Problem Constipation (31764756) Constipation, unspecified (K59.00) Active confirmed Problem Spasm of sphincter of Oddi (46338052) Spasm of sphincter of Oddi (K83.4) Active confirmed Problem Cyst of pancreas (35958062) Cyst of pancreas (K86.2) Active confirmed Plan Of Treatment Pending Test Test Name Order Date Esophagogastroduodenoscopy (EGD) 020 Esophagogastroduodenoscopy (EGD) 020 Insurance Providers Payer Name Payer Address Payer Phone Subscriber Number Group Number Insured Name Patient Relationship to Insured Coverage Start Date Coverage End Date [employer] Medicare Advantage PPO [address] [address] [place] [address] [id number] Marshal Sanders Self - patient is the [...]
--- OUTSIDE RECORDS SUMMARY | 2024-12-04 10:18 | XMS_ITS | Encounter Summary ---
Author Organization [facility] Address [address] [place] [address] Care Team Providers Care Senior Fund Accountant Name Role Phone Abrahan Mcgee MD Primary Care Provider [phone] Encounter Details Date Type Department Care Team (Latest Contact Info) Description 02/24/2002 Outpatient Historical HIS [facility] ЕКАТЕРИНА Ernst, Andre Guardado MD NO ADDRESS ON FILE CHRONIC SINUSITIS NOS (Primary Dx) Social History Tobacco Use Types Packs/Day Years Used Date Smoking Tobacco: Never Assessed Comments Unknown Sex and Gender Information Value Date Recorded Sex Assigned at Not on file Legal Sex Female 3:33 AM BLUE LINE OPERATOR Gender Identity Not on file Sexual Orientation Not on file documented as of this encounter Plan of Treatment Upcoming Encounters Date Type Department Care Team (Late st Contact Info) Description 04/04/2025 11:00 AM BLUE LINE OPERATOR Office Visit [facility] Oncology and Hematology - [place] [address] [facility] [address] [place] [address] Prince Mir MD [address] [facility] [address] [place] [address] documented as of this encounter Visit Diagnoses Diagnosis Unspecified sinusitis (chronic)- Primary documented in this encounter Care Teams Senior Fund Accountant Relationship Specialty Start Date End Date Abrahan Mcgee MD [address] [place] [address] PCP - General Family Practice 04/03/24 documented as of this encounter
--- OUTSIDE RECORDS SUMMARY | 2024-12-04 10:18 | XMS_ITS | Encounter Summary ---
Author Organization [facility] Address [address] [place] [address] Care Team Providers Care Therapy Director Name Role Phone Abrahan Mcgee MD Primary Care Provider [phone] Encounter Details Date Type Department Care Team (Latest Contact Info) Description 03/16/2002 Outpatient Historical HIS [facility] ЕКАТЕРИНА Ernst, Andre Guardado MD NO ADDRESS ON FILE BENIGN HYPERTENSION (Primary Dx) Social History Tobacco Use Types Packs/Day Years Used Date Smoking Tobacco: Never Assessed Comments Unknown Sex and Gender Information Value Date Recorded Sex Assigned at Not on file Legal Sex Female 3:33 AM PROFESSIONAL ARCHITECT Gender Identity Not on file Sexual Orientation Not on file documented as of this encounter Plan of Treatment Upcoming Encounters Date Type Department Care Team (Late st Contact Info) Description 04/04/2025 11:00 AM PROFESSIONAL ARCHITECT Office Visit [facility] Oncology and Hematology - [place] [address] [place] [address] [address] [place] [address] [place] [address] [place] [address] [address] [place] [address] documented as of this encounter Visit Diagnoses Diagnosis Essential hypertension, benign- Primary documented in this encounter Care Teams Therapy Director Relationship Specialty Start Date End Date Abrahan Mcgee MD [address] [place] [address] PCP - General Family Practice 04/03/24 documented as of this encounter
--- OUTSIDE RECORDS SUMMARY | 2024-12-04 10:18 | XMS_ITS | Encounter Summary ---
Author Organization [facility] Address [address] [place] [address] Care Team Providers Care Fishing Rod Mechanic Name Role Phone Abrahan Mcgee MD Primary Care Provider [phone] Encounter Details Date Type Department Care Team (Latest Contact Info) Description 08/15/2003 Outpatient Historical HIS [facility] ЕКАТЕРИНА Ernst, Andre Guardado MD NO ADDRESS ON FILE HYPOPOTASSEMIA (Primary Dx) Social History Tobacco Use Types Packs/Day Years Used Date Smoking Tobacco: Never Assessed Comments Unknown Sex and Gender Information Value Date Recorded Sex Assigned at Not on file Legal Sex Female 3:33 AM CHEF UNDER Gender Identity Not on file Sexual Orientation Not on file documented as of this encounter Plan of Treatment Upcoming Encounters Date Type Department Care Team (Late st Contact Info) Description 04/04/2025 11:00 AM CHEF UNDER Office Visit [facility] Oncology and Hematology - [place] [address] [facility] [address] [place] [address] [place] [address] [place] [address] [address] [place] [address] documented as of this encounter Visit Diagnoses Diagnosis Hypopotassemia- Primary documented in this encounter Care Teams Fishing Rod Mechanic Relationship Specialty Start Date End Date Abrahan Mcgee MD [address] [place] [address] PCP - General Family Practice 04/03/24 documented as of this encounter
--- OUTSIDE RECORDS SUMMARY | 2024-12-04 10:18 | XMS_ITS | Encounter Summary ---
Author Organization [facility] Address [address] [place] [address] Care Team Providers Care Professor Of Theatre Name Role Phone Abrahan Mcgee MD Primary Care Provider [phone] Encounter Details Date Type Department Care Team (Late st Contact Info) Description 10/29/2000 Outpatient Historical HIS [facility] Andre Ernst MD NO ADDRESS ON FILE Social History Tobacco Use Types Packs/Day Years Used Date Smoking Tobacco: Never Assessed Comments Unknown Sex and Gender Information Value Date Recorded Sex Assigned at Not on file Legal Sex Female 3:33 AM OPEN DEVELOPER OPERATOR Gender Identity Not on file Sexual Orientation Not on file documented as of this encounter Plan of Treatment Upcoming Encounters Date Type Department Care Team (Late st Contact Info) Description 04/04/2025 11:00 AM OPEN DEVELOPER OPERATOR Office Visit [facility] Oncology and Hematology - [place] [address] [place] [address] [address] [place] [address] Prince Mir MD [address] [facility] [address] [place] [address] documented as of this encounter Visit Diagnoses Not on filedocumented in this encounter Care Teams Professor Of Theatre Relationship Specialty Start Date End Date Abrahan Mcgee MD [address] [place] [address] PCP - General Family Practice 04/03/24 documented as of this encounter
--- OUTSIDE RECORDS SUMMARY | 2024-12-04 10:18 | XMS_ITS | Clinical Summary ---
Author Organization [facility] Address [address] [place] [address] Care Team Providers Care Stock Digger Name Role Phone Krishna Medina MD Unavailable [phone] Lina Yates NP Unavailable [phone] Abrahan Mcgee MD Primary Care Provider Allergies [...] 2021 Assessment & Plan (02/02/2022 4:10 PM PINEAPPLE PLANTATION MANAGER): Well healed. Removed BCL today without complications. [...] 04/28/2019 Assessment & Plan (04/28/2019 12:28 PM PINEAPPLE PLANTATION MANAGER): Monitor. Discussed signs and symptoms of Retinal tears or detachments. Pt understands to call immediately if noted. Subjective vision disturbance 04/28/2019 Assessment & Plan (04/28/2019 12:29 PM PINEAPPLE PLANTATION MANAGER): Seeing pink dots No hemorrhages or retinal [...] changes. Assessment & Plan (04/28/2019 12:27 PM PINEAPPLE PLANTATION MANAGER): Monitor closely Retinal hole of left eye [...] Description 09/15/2024 2:45 PM CDT Office Visit [facility] LAS Surgery [facility]) [address] [facility] [address], [address] [place] [address] Joshua Chan, OD Foreign body of left conjunctiva, initial encounter (Primary Dx); Intermediate stage nonexudative age-related macular degeneration of both eyes 09/15/2024 Telephone [facility] Medicine Ophthalmology [address] [place] [address] Joshua Chan, OD Same day from Last [...] on file Legal 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:42 PM PINEAPPLE PLANTATION MANAGER Gender Identity Not on file Sexual [...] Completed 019, 11/29/2016, 10/10/2014 Insurance [employer] MEDICARE [facility] MEDICARE [facility] MEDICARE Advance Directives For more information, please contact: [phone] * Full Code (Latest Code Status on File) Date Activated Date Inactivated Comments 11/10/2021 10:25 AM 11/10/2021 3:44 PM * Full Code Date Activated Date Inactivated Comments 09/06/2019 9:17 AM 09/06/2019 3:17 PM * Full Code Date Activated Date Inactivated Comments 07/11/2018 9:22 AM 07/11/2018 4:10 PM Care Teams Stock Digger Relationship Specialty Start Date End Date Abrahan Mcgee MD [address] [facility] [address] PCP - General Family Medicine 06/06/24 Krishna Medina MD [address] [facility] [address] [address] 03/17/19 Lina Yates NP [address] [address] Nurse Practitioner 11/12/22
--- OUTSIDE RECORDS SUMMARY | 2024-12-04 10:18 | XMS_ITS | Encounter Summary ---
Author Organization [facility] Address [address] [facility] Attn: Epic Prelude ADT [place] SPARR[place] [address] Care Team Providers Care Armature Balancer Name Role Phone Abrahan Mcgee MD Primary Care Provider [phone] Encounter Details Date Type Department Care Team (Late st Contact Info) Description 08/03/1994 Outpatient Historical Andre Ernst MD NO ADDRESS ON FILE Social History Tobacco Use Types Packs/Day Years Used Date Smoking Tobacco: Never Assessed Comments Unknown Sex and Gender Information Value Date Recorded Sex Assigned at Not on file Legal Sex Female 3:33 AM PEARLER Gender Identity Not on file Sexual Orientation Not on file documented as of this encounter Plan of Treatment Upcoming Encounters Date Type Department Care Team (Late st Contact Info) Description 04/04/2025 11:00 AM PEARLER Office Visit [facility] Oncology and Hematology - [place] [address] [place] [address] [address] [place] [address] Prince Mir MD [address] [facility] [address] [place] [address] documented as of this encounter Visit Diagnoses Not on filedocumented in this encounter Care Teams Armature Balancer Relationship Specialty Start Date End Date Abrahan Mcgee MD [address] [place] [address] PCP - General Family Practice 04/03/24 documented as of this encounter
--- OUTSIDE RECORDS SUMMARY | 2024-12-04 10:18 | XMS_ITS | Encounter Summary ---
Author Organization [facility] Address [address] [facility] Attn: Epic Prelude ADT [place] [address] Care Team Providers Care Nut Process Helper Name Role Phone Abrahan Mcgee MD Primary Care Provider [phone] Encounter Details Date Type Department Care Team (Late st Contact Info) Description 08/03/1994 Outpatient Historical Andre Ernst MD NO ADDRESS ON FILE Social History Tobacco Use Types Packs/Day Years Used Date Smoking Tobacco: Never Assessed Comments Unknown Sex and Gender Information Value Date Recorded Sex Assigned at Not on file Legal Sex Female 3:33 AM BAR STAFF Gender Identity Not on file Sexual Orientation Not on file documented as of this encounter Plan of Treatment Upcoming Encounters Date Type Department Care Team (Late st Contact Info) Description 04/04/2025 11:00 AM BAR STAFF Office Visit [facility] Oncology and Hematology - [place] [address] [place] [address] [address] [place] [address] Prince Mir MD [address] [facility] [address] [place] [address] documented as of this encounter Visit Diagnoses Not on filedocumented in this encounter Care Teams Nut Process Helper Relationship Specialty Start Date End Date Abrahan Mcgee MD [address] [place] [address] PCP - General Family Practice 04/03/24 documented as of this encounter
--- OUTSIDE RECORDS SUMMARY | 2024-12-04 10:18 | XMS_ITS | Encounter Summary ---
Author Organization [facility] Address [address] [place] [address] Care Team Providers Care Director General Name Role Phone Abrahan Mcgee MD Primary Care Provider Encounter Details Date Type Department Care Team (Late st Contact Info) Description 10/29/2000 Outpatient Historical HIS [facility] Andre Ernst MD NO ADDRESS ON FILE Social History Tobacco Use Types Packs/Day Years Used Date Smoking Tobacco: Never Assessed Comments Unknown Sex and Gender Information Value Date Recorded Sex Assigned at Not on file Legal Sex Female 3:33 AM ROLLOFF DRIVER Gender Identity Not on file Sexual Orientation Not on file documented as of this encounter Plan of Treatment Upcoming Encounters Date Type Department Care Team (Late st Contact Info) Description 04/04/2025 11:00 AM ROLLOFF DRIVER Office Visit [facility] Oncology and Hematology - [place] [address] [place] [address] [address] [place] [address] Prince Mir MD [address] [facility] [address] [place] [address] documented as of this encounter Visit Diagnoses Not on filedocumented in this encounter Care Teams Director General Relationship Specialty Start Date End Date Abrahan Mcgee MD [address] [place] [address] PCP - General Family Practice 04/03/24 documented as of this encounter
--- OUTSIDE RECORDS SUMMARY | 2024-12-04 10:18 | XMS_ITS | Encounter Summary ---
Author Organization [facility] Address [address] [place] [address] Care Team Providers Care Room Maid Name Role Phone Abrahan Mcgee MD Primary Care Provider [phone] Encounter Details Date Type Department Care Team (Late st Contact Info) Description 11/19/2003 Outpatient Historical HIS [facility] Andre Ernst MD NO ADDRESS ON FILE Social History Tobacco Use Types Packs/Day Years Used Date Smoking Tobacco: Never Assessed Comments Unknown Sex and Gender Information Value Date Recorded Sex Assigned at Not on file Legal Sex Female 3:33 AM GROUNDS MANAGER Gender Identity Not on file Sexual Orientation Not on file documented as of this encounter Plan of Treatment Upcoming Encounters Date Type Department Care Team (Late st Contact Info) Description 04/04/2025 11:00 AM GROUNDS MANAGER Office Visit [facility] Oncology and Hematology - [place] [address] [place] [address] [address] [place] [address] Prince Mir MD [address] [facility] [address] [place] [address] documented as of this encounter Visit Diagnoses Not on filedocumented in this encounter Care Teams Room Maid Relationship Specialty Start Date End Date Abrahan Mcgee MD [address] [place] [address] PCP - General Family Practice 04/03/24 documented as of this encounter
--- OUTSIDE RECORDS SUMMARY | 2024-12-04 10:18 | XMS_ITS | Encounter Summary ---
Author Organization [facility] Address [address] [place] [address] Care Team Providers Care Web Designer Developer Name Role Phone Abrahan Mcgee MD Primary Care Provider [phone] Encounter Details Date Type Department Care Team (Latest Contact Info) Description 11/04/2001 Outpatient Historical HIS [facility] ЕКАТЕРИНА Ernst, Andre Guardado MD NO ADDRESS ON FILE BENIGN HYPERTENSION (Primary Dx) Social History Tobacco Use Types Packs/Day Years Used Date Smoking Tobacco: Never Assessed Comments Unknown Sex and Gender Information Value Date Recorded Sex Assigned at Not on file Legal Sex Female 3:33 AM CORPORATE TRAFFIC MANAGER Gender Identity Not on file Sexual Orientation Not on file documented as of this encounter Plan of Treatment Upcoming Encounters Date Type Department Care Team (Late st Contact Info) Description 04/04/2025 11:00 AM CORPORATE TRAFFIC MANAGER Office Visit [facility] Oncology and Hematology - [place] [address] [place] [address] [address] [place] [address] [place] [address] [place] [address] [address] [place] [address] documented as of this encounter Visit Diagnoses Diagnosis Essential hypertension, benign- Primary documented in this encounter Care Teams Web Designer Developer Relationship Specialty Start Date End Date Abrahan Mcgee MD [address] [place] [address] PCP - General Family Practice 04/03/24 documented as of this encounter
--- OUTSIDE RECORDS SUMMARY | 2024-12-04 10:18 | XMS_ITS | Encounter Summary ---
Author Organization [facility] Address [address] [place] [address] Care Team Providers Care Supervisor Riprap Placing Name Role Phone Abrahan Mcgee MD Primary Care Provider Encounter Details Date Type Department Care Team (Late st Contact Info) Description 08/03/2001 Outpatient Historical HIS [facility] INTERNISTS Berta Monae MD [address] [place] [address] Social History Tobacco Use Types Packs/Day Years Used Date Smoking Tobacco: Never Assessed Comments Unknown Sex and Gender Information Value Date Recorded Sex Assigned at Not on file Legal Sex Female 3:33 AM CLAIM MANAGER Gender Identity Not on file Sexual Orientation Not on file documented as of this encounter Plan of Treatment Upcoming Encounters Date Type Department Care Team (Late st Contact Info) Description 04/04/2025 11:00 AM CLAIM MANAGER Office Visit [facility] Oncology and Hematology - [place] [address] [place] [address] [address] [place] [address] [place] [address] [place] [address] [address] [place] [address] documented as of this encounter Visit Diagnoses Not on filedocumented in this encounter Care Teams Supervisor Riprap Placing Relationship Specialty Start Date End Date Abrahan Mcgee MD [address] [place] [address] PCP - General Family Practice 04/03/24 documented as of this encounter
--- OUTSIDE RECORDS SUMMARY | 2024-12-04 10:18 | XMS_ITS | Encounter Summary ---
Author Organization [facility] Address [address] [place] [address] Care Team Providers Care Cash Posting Specialist Name Role Phone Abrahan Mcgee MD Primary Care Provider Encounter Details Date Type Department Care Team (Late st Contact Info) Description 11/04/2001 Outpatient Historical HIS [facility] Andre Ernst MD NO ADDRESS ON FILE Social History Tobacco Use Types Packs/Day Years Used Date Smoking Tobacco: Never Assessed Comments Unknown Sex and Gender Information Value Date Recorded Sex Assigned at Not on file Legal Sex Female 3:33 AM AGRICULTURAL PRODUCE PACKER Gender Identity Not on file Sexual Orientation Not on file documented as of this encounter Plan of Treatment Upcoming Encounters Date Type Department Care Team (Late st Contact Info) Description 04/04/2025 11:00 AM AGRICULTURAL PRODUCE PACKER Office Visit [facility] Oncology and Hematology - [place] [address] [place] [address] [address] [place] [address] Prince Mir MD [address] [facility] [address] [place] [address] documented as of this encounter Visit Diagnoses Not on filedocumented in this encounter Care Teams Cash Posting Specialist Relationship Specialty Start Date End Date Abrahan Mcgee MD [address] [place] [address] PCP - General Family Practice 04/03/24 documented as of this encounter
--- OUTSIDE RECORDS SUMMARY | 2024-12-04 10:18 | XMS_ITS | Encounter Summary ---
Author Organization [facility] Address [address] [place] [address] Care Team Providers Care Aviation Safety Technician Name Role Phone Abrahan Mcgee MD Primary Care Provider Encounter Details Date Type Department Care Team (Late st Contact Info) Description 08/15/2002 Outpatient Historical HIS [facility] INTERN[facility] Andre Ernst MD NO ADDRESS ON FILE Social History Tobacco Use Types Packs/Day Years Used Date Smoking Tobacco: Never Assessed Comments Unknown Sex and Gender Information Value Date Recorded Sex Assigned at Not on file Legal Sex Female 3:33 AM LADIES LOCKER ROOM ATTENDANT Gender Identity Not on file Sexual Orientation Not on file documented as of this encounter Plan of Treatment Upcoming Encounters Date Type Department Care Team (Late st Contact Info) Description 04/04/2025 11:00 AM LADIES LOCKER ROOM ATTENDANT Office Visit [facility] Oncology and Hematology - [place] [address] [place] [address] [address] [place] [address] Prince Mir MD [address] [facility] [address] [place] [address] documented as of this encounter Visit Diagnoses Not on filedocumented in this encounter Care Teams Aviation Safety Technician Relationship Specialty Start Date End Date Abrahan Mcgee MD [address] [place] [address] PCP - General Family Practice 04/03/24 documented as of this encounter
--- OUTSIDE RECORDS SUMMARY | 2024-12-04 10:18 | XMS_ITS | Encounter Summary ---
Author Organization [facility] Address [address] [place] [address] Care Team Providers Care Director Of Pupil Personnel Program Name Role Phone Abrahan Mcgee MD Primary Care Provider Encounter Details Date Type Department Care Team (Late st Contact Info) Description 03/16/2002 Outpatient Historical HIS [facility] INTERNISTS Andre Ernst MD NO ADDRESS ON FILE Social History Tobacco Use Types Packs/Day Years Used Date Smoking Tobacco: Never Assessed Comments Unknown Sex and Gender Information Value Date Recorded Sex Assigned at Not on file Legal Sex Female 3:33 AM RN ICU Gender Identity Not on file Sexual Orientation Not on file documented as of this encounter Plan of Treatment Upcoming Encounters Date Type Department Care Team (Late st Contact Info) Description 04/04/2025 11:00 AM RN ICU Office Visit [facility] Oncology and Hematology - [place] [address] [place] [address] [address] [place] [address] Prince Mir MD [address] [facility] [address] [place] [address] documented as of this encounter Visit Diagnoses Not on filedocumented in this encounter Care Teams Director Of Pupil Personnel Program Relationship Specialty Start Date End Date Abrahan Mcgee MD [address] [place] [address] PCP - General Family Practice 04/03/24 documented as of this encounter
--- OUTSIDE RECORDS SUMMARY | 2024-12-04 10:18 | XMS_ITS | Encounter Summary ---
Author Organization [facility] Address [address] [place] [address] Care Team Providers Care Pump Servicer Name Role Phone Abrahan Mcgee MD Primary Care Provider [phone] Encounter Details Date Type Department Care Team (Latest Contact Info) Description 11/19/2003 Outpatient Historical HIS [facility] ЕКАТЕРИНА Ernst, Andre Guardado MD NO ADDRESS ON FILE HYPOPOTASSEMIA (Primary Dx) Social History Tobacco Use Types Packs/Day Years Used Date Smoking Tobacco: Never Assessed Comments Unknown Sex and Gender Information Value Date Recorded Sex Assigned at Not on file Legal Sex Female 3:33 AM FOUNTAIN DISPENSER Gender Identity Not on file Sexual Orientation Not on file documented as of this encounter Plan of Treatment Upcoming Encounters Date Type Department Care Team (Late st Contact Info) Description 04/04/2025 11:00 AM FOUNTAIN DISPENSER Office Visit [facility] Oncology and Hematology - [place] [address] [facility] [address] [place] [address] [place] [address] [place] [address] [address] [place] [address] documented as of this encounter Visit Diagnoses Diagnosis Hypopotassemia- Primary documented in this encounter Care Teams Pump Servicer Relationship Specialty Start Date End Date Abrahan Mcgee MD [address] [place] [address] PCP - General Family Practice 04/03/24 documented as of this encounter
--- OUTSIDE RECORDS SUMMARY | 2024-12-04 10:18 | XMS_ITS | Encounter Summary ---
Author Organization [facility] Address [address] [place] [address] Care Team Providers Care Pedigree Researcher Name Role Phone Abrahan Mcgee MD Primary Care Provider [phone] Encounter Details Date Type Department Care Team (Late st Contact Info) Description 08/15/2003 Outpatient Historical HIS [facility] DE[facility] Meryl Perry MD [address] [address] ABDOMINAL PAIN RUQ (Primary Dx) Social History Tobacco Use Types Packs/Day Years Used Date Smoking Tobacco: Never Assessed Comments Unknown Sex and Gender Information Value Date Recorded Sex Assigned at Not on file Legal Sex Female 3:33 AM CERTIFIED MARINE MECHANIC Gender Identity Not on file Sexual Orientation Not on file documented as of this encounter Plan of Treatment Upcoming Encounters Date Type Department Care Team (Late st Contact Info) Description 04/04/2025 11:00 AM CERTIFIED MARINE MECHANIC Office Visit [facility] Oncology and Hematology - [place] [address] [place] [address] [address] [place] [address] Prince Mir MD [address] [facility] [address] [place] [address] documented as of this encounter Visit Diagnoses Diagnosis Abdominal pain, right upper quadrant- Primary documented in this encounter Care Teams Pedigree Researcher Relationship Specialty Start Date End Date Abrahan Mcgee MD [address] [place] [address] PCP - General Family Practice 04/03/24 documented as of this encounter
--- OUTSIDE RECORDS SUMMARY | 2024-12-04 10:18 | XMS_ITS | Encounter Summary ---
Author Organization [facility] Address [address] [place] [address] Care Team Providers Care Ferris Wheel Operator Name Role Phone Abrahan Mcgee MD Primary Care Provider [phone] Encounter Details Date Type Department Care Team (Late st Contact Info) Description 04/12/2002 Outpatient Historical HIS [facility] Andre Ernst MD NO ADDRESS ON FILE DIAPHRAGMATIC HERNIA (Primary Dx) Social History Tobacco Use Types Packs/Day Years Used Date Smoking Tobacco: Never Assessed Comments Unknown Sex and Gender Information Value Date Recorded Sex Assigned at Not on file Legal Sex Female 3:33 AM DOCUMENT CONTROL ASSOCIATE Gender Identity Not on file Sexual Orientation Not on file documented as of this encounter Plan of Treatment Upcoming Encounters Date Type Department Care Team (Late st Contact Info) Description 04/04/2025 11:00 AM DOCUMENT CONTROL ASSOCIATE Office Visit [facility] Oncology and Hematology - [place] [address] [place] [address] [address] [place] [address] [place] [address] [place] [address] [address] [place] [address] documented as of this encounter Visit Diagnoses Diagnosis Diaphragmatic hernia without mention of obstruction or gangrene- Primary documented in this encounter Care Teams Ferris Wheel Operator Relationship Specialty Start Date End Date Abrahan Mcgee MD [address] [place] [address] PCP - General Family Practice 04/03/24 documented as of this encounter
--- OUTSIDE RECORDS SUMMARY | 2024-12-04 10:18 | XMS_ITS | Encounter Summary ---
Author Organization [facility] Address [address] [place] [address] Care Team Providers Care Optical Store Manager Name Role Phone Abrahan Mcgee MD Primary Care Provider [phone] Encounter Details Date Type Department Care Team (Late st Contact Info) Description 11/26/2000 Outpatient Historical HIS [facility] INTERNISTS Andre Ernst MD NO ADDRESS ON FILE Social History Tobacco Use Types Packs/Day Years Used Date Smoking Tobacco: Never Assessed Comments Unknown Sex and Gender Information Value Date Recorded Sex Assigned at Not on file Legal Sex Female 3:33 AM INDUSTRIAL REHABILITATION CONSULTANT Gender Identity Not on file Sexual Orientation Not on file documented as of this encounter Plan of Treatment Upcoming Encounters Date Type Department Care Team (Late st Contact Info) Description 04/04/2025 11:00 AM INDUSTRIAL REHABILITATION CONSULTANT Office Visit [facility] Oncology and Hematology - [place] [address] [place] [address] [address] [place] [address] Prince Mir MD [address] [facility] [address] [place] [address] documented as of this encounter Visit Diagnoses Not on filedocumented in this encounter Care Teams Optical Store Manager Relationship Specialty Start Date End Date Abrahan Mcgee MD [address] [place] [address] PCP - General Family Practice 04/03/24 documented as of this encounter
--- OUTSIDE RECORDS SUMMARY | 2024-12-04 10:18 | XMS_ITS | Encounter Summary ---
Author Organization [facility] Address [address] [place] [address] Care Team Providers Care Network Systems Analyst Name Role Phone Abrahan Mcgee MD Primary Care Provider Encounter Details Date Type Department Care Team (Late st Contact Info) Description 03/22/2001 Outpatient Historical HIS [facility] INTERN[facility] Andre Ernst MD NO ADDRESS ON FILE Social History Tobacco Use Types Packs/Day Years Used Date Smoking Tobacco: Never Assessed Comments Unknown Sex and Gender Information Value Date Recorded Sex Assigned at Not on file Legal Sex Female 3:33 AM EDUCATIONAL INSTITUTION CURATOR Gender Identity Not on file Sexual Orientation Not on file documented as of this encounter Plan of Treatment Upcoming Encounters Date Type Department Care Team (Late st Contact Info) Description 04/04/2025 11:00 AM EDUCATIONAL INSTITUTION CURATOR Office Visit [facility] Oncology and Hematology - [place] [address] [place] [address] [address] [place] [address] Prince Mir MD [address] [facility] [address] [place] [address] documented as of this encounter Visit Diagnoses Not on filedocumented in this encounter Care Teams Network Systems Analyst Relationship Specialty Start Date End Date Abrahan Mcgee MD [address] [place] [address] PCP - General Family Practice 04/03/24 documented as of this encounter
--- OUTSIDE RECORDS SUMMARY | 2024-12-04 10:18 | XMS_ITS | Encounter Summary ---
Author Organization [facility] Address [address] [place] [address] Care Team Providers Care High School Social Science Teacher Name Role Phone Abrahan Mcgee MD Primary Care Provider [phone] Encounter Details Date Type Department Care Team (Latest Contact Info) Description 08/15/2002 Outpatient Historical HIS [facility] ЕКАТЕРИНА Ernst, Andre Guardado MD NO ADDRESS ON FILE JOINT PAIN-L/LEG (Primary Dx) Social History Tobacco Use Types Packs/Day Years Used Date Smoking Tobacco: Never Assessed Comments Unknown Sex and Gender Information Value Date Recorded Sex Assigned at Not on file Legal Sex Female 3:33 AM OTR DRIVER Gender Identity Not on file Sexual Orientation Not on file documented as of this encounter Plan of Treatment Upcoming Encounters Date Type Department Care Team (Late st Contact Info) Description 04/04/2025 11:00 AM OTR DRIVER Office Visit [facility] Oncology and Hematology - [place] [address] [facility] [address] [place] [address] [place] [address] [place] [address] [address] [place] [address] documented as of this encounter Visit Diagnoses Diagnosis Pain in joint, lower leg- Primary documented in this encounter Care Teams High School Social Science Teacher Relationship Specialty Start Date End Date Abrahan Mcgee MD [address] [place] [address] PCP - General Family Practice 04/03/24 documented as of this encounter
--- OUTSIDE RECORDS SUMMARY | 2024-12-04 10:18 | XMS_ITS | Encounter Summary ---
Author Organization [facility] Address [address] [place] [address] Care Team Providers Care Applied Science And Technologies Dean Name Role Phone Abrahan Mcgee MD Primary Care Provider [phone] Encounter Details Date Type Department Care Team (Latest Contact Info) Description 11/26/2000 Outpatient Historical HIS [facility] ЕКАТЕРИНА Ernst, Andre Guardado MD NO ADDRESS ON FILE Essential hypertension, benign (Primary Dx) Social History Tobacco Use Types Packs/Day Years Used Date Smoking Tobacco: Never Assessed Comments Unknown Sex and Gender Information Value Date Recorded Sex Assigned at Not on file Legal Sex Female 3:33 AM CHILD WELFARE CASEWORKER Gender Identity Not on file Sexual Orientation Not on file documented as of this encounter Plan of Treatment Upcoming Encounters Date Type Department Care Team (Late st Contact Info) Description 04/04/2025 11:00 AM CHILD WELFARE CASEWORKER Office Visit [facility] [place] Oncology and Hematology - [place] [address] [facility] [address] [place] [address] [place] [address] [place] [address] [address] [place] [address] documented as of this encounter Visit Diagnoses Diagnosis Essential hypertension, benign- Primary documented in this encounter Care Teams Applied Science [employer] Technologies Dean Relationship Specialty Start Date End Date Abrahan Mcgee MD [address] [place] [address] PCP - General Family Practice 04/03/24 documented as of this encounter
--- OUTSIDE RECORDS SUMMARY | 2024-12-04 10:18 | XMS_ITS | Encounter Summary ---
Author Organization [facility] Address [address] [place] [address] Care Team Providers Care Stone Spreader Operator Name Role Phone Abrahan Mcgee MD Primary Care Provider [phone] Encounter Details Date Type Department Care Team (Latest Contact Info) Description 11/01/2003 Outpatient Historical HIS [facility] ЕКАТЕРИНА Sneed, Oscar Medeiros MD NO ADDRESS ON FILE SCREENING MAMM-MAILG NEOPL-OTHER (Primary Dx) Social History Tobacco Use Types Packs/Day Years Used Date Smoking Tobacco: Never Assessed Comments Unknown Sex and Gender Information Value Date Recorded Sex Assigned at Not on file Legal Sex Female 3:33 AM AUTO TESTER Gender Identity Not on file Sexual Orientation Not on file documented as of this encounter Plan of Treatment Upcoming Encounters Date Type Department Care Team (Late st Contact Info) Description 04/04/2025 11:00 AM AUTO TESTER Office Visit [facility] Oncology and Hematology - [place] [address] [place] [address] [address] [place] [address] [place] [address] [place] [address] [address] [place] [address] documented as of this encounter Visit Diagnoses Diagnosis Other screening mammogram- Primary documented in this encounter Care Teams Stone Spreader Operator Relationship Specialty Start Date End Date Abrahan Mcgee MD [address] [place] [address] PCP - General Family Practice 04/03/24 documented as of this encounter
--- OUTSIDE RECORDS SUMMARY | 2024-12-04 10:18 | XMS_ITS | Encounter Summary ---
Author Organization [facility] Address [address] [place] [address] Care Team Providers Care Interactive Art Director Name Role Phone Abrahan Mcgee MD Primary Care Provider [phone] Encounter Details Date Type Department Care Team (Late st Contact Info) Description 02/24/2002 Outpatient Historical HIS [facility] Andre Ernst MD NO ADDRESS ON FILE Social History Tobacco Use Types Packs/Day Years Used Date Smoking Tobacco: Never Assessed Comments Unknown Sex and Gender Information Value Date Recorded Sex Assigned at Not on file Legal Sex Female 3:33 AM BATCHMAKER Gender Identity Not on file Sexual Orientation Not on file documented as of this encounter Plan of Treatment Upcoming Encounters Date Type Department Care Team (Late st Contact Info) Description 04/04/2025 11:00 AM BATCHMAKER Office Visit [facility] Oncology and Hematology - [place] [address] [place] [address] [address] [place] [address] Prince Mir MD [address] [facility] [address] [place] [address] documented as of this encounter Visit Diagnoses Not on filedocumented in this encounter Care Teams Interactive Art Director Relationship Specialty Start Date End Date Abrahan Mcgee MD [address] [place] [address] PCP - General Family Practice 04/03/24 documented as of this encounter
--- OUTSIDE RECORDS SUMMARY | 2024-12-04 10:18 | XMS_ITS | Encounter Summary ---
Author Organization [facility] Address [address] [facility] Attn: Epic Prelude ADT [place] [address] Care Team Providers Care Wharf Hand Name Role Phone Abrahan Mcgee MD Primary Care Provider [phone] Encounter Details Date Type Department Care Team (Late st Contact Info) Description 10/05/1994 Outpatient Historical Andre Ernst MD NO ADDRESS ON FILE Social History Tobacco Use Types Packs/Day Years Used Date Smoking Tobacco: Never Assessed Comments Unknown Sex and Gender Information Value Date Recorded Sex Assigned at Not on file Legal Sex Female 3:33 AM APPLIANCE SERVICER Gender Identity Not on file Sexual Orientation Not on file documented as of this encounter Plan of Treatment Upcoming Encounters Date Type Department Care Team (Late st Contact Info) Description 04/04/2025 11:00 AM APPLIANCE SERVICER Office Visit [facility] Oncology and Hematology - [place] [address] [place] [address] [address] [place] [address] Prince Mir MD [address] [facility] [address] [place] [address] documented as of this encounter Visit Diagnoses Not on filedocumented in this encounter Care Teams Wharf Hand Relationship Specialty Start Date End Date Abrahan Mcgee MD [address] [place] [address] PCP - General Family Practice 04/03/24 documented as of this encounter
--- OUTSIDE RECORDS SUMMARY | 2024-12-04 10:18 | XMS_ITS | Encounter Summary ---
Author Organization [facility] Address [address] [facility] Attn: Epic Prelude ADT [place] [address] Care Team Providers Care Rabbit Fancier Name Role Phone Abrahan Mcgee MD Primary Care Provider [phone] Encounter Details Date Type Department Care Team (Late st Contact Info) Description 08/08/1993 Outpatient Historical Andre Ernst MD NO ADDRESS ON FILE Social History Tobacco Use Types Packs/Day Years Used Date Smoking Tobacco: Never Assessed Comments Unknown Sex and Gender Information Value Date Recorded Sex Assigned at Not on file Legal Sex Female 3:33 AM FLIGHT DIRECTOR Gender Identity Not on file Sexual Orientation Not on file documented as of this encounter Plan of Treatment Upcoming Encounters Date Type Department Care Team (Late st Contact Info) Description 04/04/2025 11:00 AM FLIGHT DIRECTOR Office Visit [facility] Oncology and Hematology - [place] [address] [place] [address] [address] [place] [address] Prince Mir MD [address] [facility] [address] [place] [address] documented as of this encounter Visit Diagnoses Not on filedocumented in this encounter Care Teams Rabbit Fancier Relationship Specialty Start Date End Date Abrahan Mcgee MD [address] [place] [address] PCP - General Family Practice 04/03/24 documented as of this encounter
--- OUTSIDE RECORDS SUMMARY | 2024-12-04 10:19 | XMS_ITS | Encounter Summary ---
Author Organization [facility] Address [address] [place] [address] Care Team Providers Care Acid Washer Operator Name Role Phone Abrahan Mcgee MD Primary Care Provider [phone] Encounter Details Date Type Department Care Team (Latest Contact Info) Description 06/05/2004 Outpatient Historical HIS [facility] ЕКАТЕРИНА Ernst, Andre Guardado MD NO ADDRESS ON FILE BENIGN HYPERTENSION (Primary Dx) Social History Tobacco Use Types Packs/Day Years Used Date Smoking Tobacco: Never Assessed Comments Unknown Sex and Gender Information Value Date Recorded Sex Assigned at Not on file Legal Sex Female 3:33 AM DEBURRER STRIP Gender Identity Not on file Sexual Orientation Not on file documented as of this encounter Plan of Treatment Upcoming Encounters Date Type Department Care Team (Late st Contact Info) Description 04/04/2025 11:00 AM DEBURRER STRIP Office Visit [facility] Oncology and Hematology - [place] [address] [facility] [address] [place] [address] Prince Mir MD [address] [facility] [address] [place] [address] documented as of this encounter [...] Primary documented in this encounter Care Teams Acid Washer Operator Relationship Specialty Start Date End Date Abrahan Mcgee MD [address] [place] [address] PCP - General Family Practice 04/03/24 documented as of this encounter
--- OUTSIDE RECORDS SUMMARY | 2024-12-04 10:19 | XMS_ITS | Encounter Summary ---
Author Organization [facility] Address [address] [place] [address] Care Team Providers Care Activated Sludge Operator Name Role Phone Abrahan Mcgee MD Primary Care Provider [phone] Encounter Details Date Type Department Care Team (Latest Contact Info) Description 11/27/2004 Outpatient Historical HIS [facility] ЕКАТЕРИНА Sneed, Oscar Medeiros MD NO ADDRESS ON FILE SCREENING MAMM-MAILG NEOPL NEC (Primary Dx) Social History Tobacco Use Types Packs/Day Years Used Date Smoking Tobacco: Never Assessed Comments Unknown Sex and Gender Information Value Date Recorded Sex Assigned at Not on file Legal Sex Female 3:33 AM OFFICE RENTAL CLERK Gender Identity Not on file Sexual Orientation Not on file documented as of this encounter Plan of Treatment Upcoming Encounters Date Type Department Care Team (Late st Contact Info) Description 04/04/2025 11:00 AM OFFICE RENTAL CLERK Office Visit [facility] Oncology and Hematology - [place] [address] [facility] [address] [place] [address] Prince Mir MD [address] [place] [address] [address] [place] [address] documented as of this encounter Visit Diagnoses Diagnosis Other screening mammogram- Primary documented in this encounter Care Teams Activated Sludge Operator Relationship Specialty Start Date End Date Abrahan Mcgee MD [address] [place] [address] PCP - General Family Practice 04/03/24 documented as of this encounter
--- OUTSIDE RECORDS SUMMARY | 2024-12-04 10:19 | XMS_ITS | Encounter Summary ---
Author Organization [facility] Address [address] [place] [address] Care Team Providers Care Weapons Specialist Name Role Phone Abrahan Mcgee MD Primary Care Provider [phone] Encounter Details Date Type Department Care Team (Late st Contact Info) Description 07/13/2003 Outpatient Historical HIS [facility] Meryl Perry MD [address] [address] ABDOMINAL PAIN OTHER SPEC SITE (Primary Dx) Social History Tobacco Use Types Packs/Day Years Used Date Smoking Tobacco: Never Assessed Comments Unknown Sex and Gender Information Value Date Recorded Sex Assigned at Not on file Legal Sex Female 3:33 AM SALES OFFICE COORDINATOR Gender Identity Not on file Sexual Orientation Not on file documented as of this encounter Plan of Treatment Upcoming Encounters Date Type Department Care Team (Late st Contact Info) Description 04/04/2025 11:00 AM SALES OFFICE COORDINATOR Office Visit [facility] Oncology and Hematology - [place] [address] [place] [address] [address] [place] [address] Prince Mir MD [address] [facility] [address] [place] [address] documented as of this encounter Visit Diagnoses Diagnosis Abdominal pain, other specified site- Primary documented in this encounter Care Teams Weapons Specialist Relationship Specialty Start Date End Date Abrahan Mcgee MD [address] [place] [address] PCP - General Family Practice 04/03/24 documented as of this encounter
--- OUTSIDE RECORDS SUMMARY | 2024-12-04 10:19 | XMS_ITS | Encounter Summary ---
Author Organization [facility] Address [address] [place] [address] Care Team Providers Care Store Product Demonstrator Name Role Phone Abrahan Mcgee MD Primary Care Provider [phone] Encounter Details Date Type Department Care Team (Late st Contact Info) Description 11/27/2004 Outpatient Historical HIS [facility] ЕКАТЕРИНА Perry, Meryl Pereira MD [address] [address] ABDOMINAL PAIN RLQ (Primary Dx) Social History Tobacco Use Types Packs/Day Years Used Date Smoking Tobacco: Never Assessed Comments Unknown Sex and Gender Information Value Date Recorded Sex Assigned at Not on file Legal Sex Female 3:33 AM ARCH CUSHION PRESS OPERATOR Gender Identity Not on file Sexual Orientation Not on file documented as of this encounter Plan of Treatment Upcoming Encounters Date Type Department Care Team (Late st Contact Info) Description 04/04/2025 11:00 AM ARCH CUSHION PRESS OPERATOR Office Visit [facility] Oncology and Hematology - [place] [address] [facility] [address] [place] [address] Prince Mir MD [address] [facility] [address] [place] [address] documented as of this encounter [...] FETOPROTEIN TUMOR MARKER (11/27/2004 11:54 AM CDT) [facility] ALPHA FETOPROTEIN TUMOR MARKER 2.2 ng/mL INTERFACE SYSTEM Comment: This test was performed using the DPC Immulite 2000 Assay. REFERENCE RANGE: <6.1 THE USE OF AFP A TUMOR MARKER IN FEMALES IS NOT RECOMMENDED. Lab test performed by: [id number] [address] EVELINA AMOS MD 11/27/2004 11:5 4 AM CDT Meryl Perry MD CHEMISTRY ORDERABLES Fin al Result INTERFACE SYSTEM Refer to clinic/hospital department * CBC WITH DIFFERENTIAL (11/27/2004 11:54 AM CDT) [facility] NEUTROPHILS 67 45 - 70 % [...] ORDERABLES Fi nal Result Performing Organization Address City/State/[facility] Co de Phone Number INTERFACE [...] ORDERABLES Fi nal Result Performing Organization Address [facility] Phone Number INTERFACE SYSTEM Refer to clinic/hospital department * (ABNORMAL) AMYLASE (11/27/2004 11:54 AM CDT) AMYLASE 141(H) 28 - 100 U/L INTERFACE SYSTEM 11/27/2004 11:5 4 AM CDT Meryl Perry MD CHEMISTRY ORDERABLES Fin al Result Performing Organization Address City/[facility] Co de Phone Number INTERFACE SYSTEM Refer to clinic/hospital department * (ABNORMAL) LIPASE (11/27/2004 11:54 AM CDT) LIPASE 97(H) 13 - 60 U/L INTERFAC E SYSTEM 11/27/2004 11:5 4 AM CDT Meryl Perry MD CHEMISTRY ORDERABLES Fin al Result Performing Organization Address [facility] Phone Number INTERFACE SYSTEM Refer to clinic/hospital department * C-REACTIVE PROTEIN (11/27/2004 11:54 AM CDT) CRP 0.5 0.0 - 0.8 mg/dL INTERFACE SYSTEM 11/27/2004 11:5 4 AM CDT Meryl Perry MD CHEMISTRY ORDERABLES Fin al Result Performing Organization Address [facility] Phone Number INTERFACE SYSTEM Refer [...] ORDERABLES Fin al Result Performing Organization Address [facility] Phone Number INTERFACE SYSTEM Refer to [...] Primary documented in this encounter Care Teams Store Product Demonstrator Relationship Specialty Start Date End Date Abrahan Mcgee MD [address] [place] [address] PCP - General Family Practice 04/03/24 documented as of this encounter
--- OUTSIDE RECORDS SUMMARY | 2024-12-04 10:19 | XMS_ITS | Encounter Summary ---
Author Organization [facility] Address [address] [place] [address] Care Team Providers Care Chief Revenue Officer Name Role Phone Abrahan Mcgee MD Primary Care Provider [phone] Encounter Details Date Type Department Care Team (Late st Contact Info) Description 12/17/2004 Outpatient Historical [facility] Meryl Perry MD [address] [address] BENIGN NEOPLASM LG BOWEL (Primary Dx) Social History Tobacco Use Types Packs/Day Years Used Date Smoking Tobacco: Never Assessed Comments Unknown Sex and Gender Information Value Date Recorded Sex Assigned at Not on file Legal Sex Female 3:33 AM HIRE CAR DRIVER Gender Identity Not on file Sexual Orientation Not on file documented as of this encounter Plan of Treatment Upcoming Encounters Date Type Department Care Team (Late st Contact Info) Description 04/04/2025 11:00 AM HIRE CAR DRIVER Office Visit [facility] Oncology and Hematology - [place] [address] [place] [address] [address] [place] [address] Prince Mir MD [address] [facility] [address] [place] [address] documented as of this encounter Visit Diagnoses Diagnosis Benign neoplasm of colon- Primary documented in this encounter Care Teams Chief Revenue Officer Relationship Specialty Start Date End Date Abrahan Mcgee MD [address] [place] [address] PCP - General Family Practice 04/03/24 documented as of this encounter
--- OUTSIDE RECORDS SUMMARY | 2024-12-04 10:19 | XMS_ITS | Encounter Summary ---
Author Organization [facility] Address [address] [place] [address] Care Team Providers Care Stockroom Selector Name Role Phone Abrahan Mcgee MD Primary Care Provider [phone] Encounter Details Date Type Department Care Team (Latest Contact Info) Description 11/24/2005 Outpatient Historical HIS [facility] ЕКАТЕРИНА Sneed, Oscar Medeiros MD NO ADDRESS ON FILE Other Screening Mammogram (Primary Dx) Social History Tobacco Use Types Packs/Day Years Used Date Smoking Tobacco: Never Assessed Comments Unknown Sex and Gender Information Value Date Recorded Sex Assigned at Not on file Legal Sex Female 3:33 AM COUNSELING SPECIALIST Gender Identity Not on file Sexual Orientation Not on file documented as of this encounter Plan of Treatment Upcoming Encounters Date Type Department Care Team (Late st Contact Info) Description 04/04/2025 11:00 AM COUNSELING SPECIALIST Office Visit [facility] Oncology and Hematology - [place] [address] [facility] [address] [place] [address] [place] [address] [place] [address] [address] [place] [address] documented as of this encounter Visit Diagnoses Diagnosis Other screening mammogram- Primary documented in this encounter Care Teams Stockroom Selector Relationship Specialty Start Date End Date Abrahan Mcgee MD [address] [place] [address] PCP - General Family Practice 04/03/24 documented as of this encounter
--- OUTSIDE RECORDS SUMMARY | 2024-12-04 10:19 | XMS_ITS | Encounter Summary ---
Author Organization [facility] Address [address] [place] [address] Care Team Providers Care Stamper Blocker Name Role Phone Abrahan Mcgee MD Primary Care Provider Encounter Details Date Type Department Care Team (Late st Contact Info) Description 07/09/2005 Outpatient Historical HIS [facility] Andre Ernst MD NO ADDRESS ON FILE Social History Tobacco Use Types Packs/Day Years Used Date Smoking Tobacco: Never Assessed Comments Unknown Sex and Gender Information Value Date Recorded Sex Assigned at Not on file Legal Sex Female 3:33 AM ROVING MARKER Gender Identity Not on file Sexual Orientation Not on file documented as of this encounter Plan of Treatment Upcoming Encounters Date Type Department Care Team (Late st Contact Info) Description 04/04/2025 11:00 AM ROVING MARKER Office Visit [facility] Oncology and Hematology - [place] [address] [place] [address] [address] [place] [address] Prince Mir MD [address] [facility] [address] [place] [address] documented as of this encounter Visit Diagnoses Not on filedocumented in this encounter Care Teams Stamper Blocker Relationship Specialty Start Date End Date Abrahan Mcgee MD [address] [place] [address] PCP - General Family Practice 04/03/24 documented as of this encounter
--- OUTSIDE RECORDS SUMMARY | 2024-12-04 10:19 | XMS_ITS | Encounter Summary ---
Author Organization [facility] Address [address] [place] [address] Care Team Providers Care Bottom Stainer Name Role Phone Abrahan Mcgee MD Primary Care Provider [phone] Encounter Details Date Type Department Care Team (Latest Contact Info) Description 01/06/2006 Outpatient Historical HIS [facility] ЕКАТЕРИНА Ernst, Andre Guardado MD NO ADDRESS ON FILE Cervicalgia (Primary Dx) Social History Tobacco Use Types Packs/Day Years Used Date Smoking Tobacco: Never Assessed Comments Unknown Sex and Gender Information Value Date Recorded Sex Assigned at Not on file Legal Sex Female 3:33 AM AUTOMOTIVE TIRE WORKER Gender Identity Not on file Sexual Orientation Not on file documented as of this encounter Plan of Treatment Upcoming Encounters Date Type Department Care Team (Late st Contact Info) Description 04/04/2025 11:00 AM AUTOMOTIVE TIRE WORKER Office Visit [facility] Oncology and Hematology - [place] [address] [place] [address] [address] [place] [address] Prince Mir MD [address] [facility] [address] [place] [address] documented as of this encounter Visit Diagnoses Diagnosis Cervicalgia- Primary documented in this encounter Care Teams Bottom Stainer Relationship Specialty Start Date End Date Abrahan Mcgee MD [address] [place] [address] PCP - General Family Practice 04/03/24 documented as of this encounter
--- OUTSIDE RECORDS SUMMARY | 2024-12-04 10:19 | XMS_ITS | Encounter Summary ---
Author Organization [facility] Address [address] [place] [address] Care Team Providers Care Mill Dresser Name Role Phone Abrahan Mcgee MD Primary Care Provider [phone] Encounter Details Date Type Department Care Team (Latest Contact Info) Description 10/17/2002 Outpatient Historical HIS [facility] ЕКАТЕРИНА Ernst, Andre Guardado MD NO ADDRESS ON FILE PURE HYPERCHOLESTEROLEM (Primary Dx) Social History Tobacco Use Types Packs/Day Years Used Date Smoking Tobacco: Never Assessed Comments Unknown Sex and Gender Information Value Date Recorded Sex Assigned at Not on file Legal Sex Female 3:33 AM DRENCHER Gender Identity Not on file Sexual Orientation Not on file documented as of this encounter Plan of Treatment Upcoming Encounters Date Type Department Care Team (Late st Contact Info) Description 04/04/2025 11:00 AM DRENCHER Office Visit [facility] Oncology and Hematology - [place] [address] [facility] [address] [place] [address] Prince Mir MD [address] [facility] [address] [place] [address] documented as of this encounter Visit Diagnoses Diagnosis Pure hypercholesterolemia- Primary documented in this encounter Care Teams Mill Dresser Relationship Specialty Start Date End Date Abrahan Mcgee MD [address] [place] [address] PCP - General Family Practice 04/03/24 documented as of this encounter
--- OUTSIDE RECORDS SUMMARY | 2024-12-04 10:19 | XMS_ITS | Encounter Summary ---
Author Organization [facility] Address [address] [place] [address] Care Team Providers Care Machine Stoppage Frequency Checker Name Role Phone Abrahan Mcgee MD Primary Care Provider [phone] Encounter Details Date Type Department Care Team (Latest Contact Info) Description 03/06/2004 Outpatient Historical HIS [facility] ЕКАТЕРИНА Ernst, Andre Guardado MD NO ADDRESS ON FILE HYPOPOTASSEMIA (Primary Dx) Social History Tobacco Use Types Packs/Day Years Used Date Smoking Tobacco: Never Assessed Comments Unknown Sex and Gender Information Value Date Recorded Sex Assigned at Not on file Legal Sex Female 3:33 AM CAN WASHER Gender Identity Not on file Sexual Orientation Not on file documented as of this encounter Plan of Treatment Upcoming Encounters Date Type Department Care Team (Late st Contact Info) Description 04/04/2025 11:00 AM CAN WASHER Office Visit [facility] Oncology and Hematology - [place] [address] [facility] [address] [place] [address] [place] Mir MD [address] [facility] [address] [place] [address] documented as of this encounter Procedures Procedure Name Priority Date/Time Associated Diagnosis Comments COMPREHENSIVE METABOLIC PANEL Routine 03/06/2004 11:12 AM CAN WASHER documented in this encounter Results * (ABNORMAL) COMPREHENSIVE METABOLIC PANEL (03/06/2004 11:12 AM CAN WASHER) GLUCOSE 95 65 - 109 mg/dL INTERFACE [...] by 2nd methodology. 03/06/2004 11:1 2 AM CAN WASHER us Andre Ernst MD CHEMISTRY ORDERABLES Final Res ult INTERFACE SYSTEM Refer to clinic/hospital department documented in this encounter Visit Diagnoses Diagnosis Hypopotassemia- Primary documented in this encounter Care Teams Machine Stoppage Frequency Checker Relationship Specialty Start Date End Date Abrahan Mcgee MD [address] [place] [address] PCP - General Family Practice 04/03/24 documented as of this encounter
--- OUTSIDE RECORDS SUMMARY | 2024-12-04 10:19 | XMS_ITS | Encounter Summary ---
Author Organization [facility] Address [address] [place] [address] Care Team Providers Care General Medical Practitioner Name Role Phone Abrahan Mcgee MD Primary Care Provider [phone] Encounter Details Date Type Department Care Team (Late st Contact Info) Description 07/27/2003 Outpatient Historical HIS [facility] ЕКАТЕРИНА [place], Meryl Pereira MD [address] [address] ABNORMAL FINDINGS-GI TRACT (Primary Dx) Social History Tobacco Use Types Packs/Day Years Used Date Smoking Tobacco: Never Assessed Comments Unknown Sex and Gender Information Value Date Recorded Sex Assigned at Not on file Legal Sex Female 3:33 AM COMMERCIAL DRONE PILOT Gender Identity Not on file Sexual Orientation Not on file documented as of this encounter Plan of Treatment Upcoming Encounters Date Type Department Care Team (Late st Contact Info) Description 04/04/2025 11:00 AM COMMERCIAL DRONE PILOT Office Visit [facility] Oncology and Hematology - [place] [address] [place] [address] Dr [place] [address] [place] [address] [place] Mir MD [address] [facility] [address] [place] [address] documented as of this encounter Visit Diagnoses Diagnosis Nonspecific (abnormal) findings on radiological and other examination of gastrointestinal tract- Primary documented in this encounter Care Teams General Medical Practitioner Relationship Specialty Start Date End Date Abrahan Mcgee MD [address] [place] [address] PCP - General Family Practice 04/03/24 documented as of this encounter
--- OUTSIDE RECORDS SUMMARY | 2024-12-04 10:19 | XMS_ITS | Encounter Summary ---
Author Organization [facility] Address [address] [place] [address] Care Team Providers Care Petroleum Refinery Laborer Name Role Phone Abrahan Mcgee MD Primary Care Provider [phone] Encounter Details Date Type Department Care Team (Late st Contact Info) Description 07/23/2003 Outpatient Historical HIS [facility] Meryl [place] MD [address] [address] UTERINE LEIOMYOMA NOS (Primary Dx) Social History Tobacco Use Types Packs/Day Years Used Date Smoking Tobacco: Never Assessed Comments Unknown Sex and Gender Information Value Date Recorded Sex Assigned at Not on file Legal Sex Female 3:33 AM CITY ADMINISTRATOR Gender Identity Not on file Sexual Orientation Not on file documented as of this encounter Plan of Treatment Upcoming Encounters Date Type Department Care Team (Late st Contact Info) Description 04/04/2025 11:00 AM CITY ADMINISTRATOR Office Visit [facility] Oncology and Hematology - [place] [address] [place] [address] Dr [place] [address] [place] [address] [place] Mir MD [address] [facility] [address] [place] [address] documented as of this encounter Visit Diagnoses Diagnosis Leiomyoma of uterus, unspecified- Primary documented in this encounter Care Teams Petroleum Refinery Laborer Relationship Specialty Start Date End Date Abrahan Mcgee MD [address] [place] [address] PCP - General Family Practice 04/03/24 documented as of this encounter
--- OUTSIDE RECORDS SUMMARY | 2024-12-04 10:19 | XMS_ITS | Encounter Summary ---
Author Organization [facility] Address [address] [place] [address] Care Team Providers Care It Training Specialist Name Role Phone Abrahan Mcgee MD Primary Care Provider [phone] Encounter Details Date Type Department Care Team (Late st Contact Info) Description 02/07/2004 Outpatient Historical HIS [facility] Andre Ernst MD NO ADDRESS ON FILE Social History Tobacco Use Types Packs/Day Years Used Date Smoking Tobacco: Never Assessed Comments Unknown Sex and Gender Information Value Date Recorded Sex Assigned at Not on file Legal Sex Female 3:33 AM PATIENT SERVICES REPRESENTATIVE Gender Identity Not on file Sexual Orientation Not on file documented as of this encounter Plan of Treatment Upcoming Encounters Date Type Department Care Team (Late st Contact Info) Description 04/04/2025 11:00 AM PATIENT SERVICES REPRESENTATIVE Office Visit [facility] Oncology and Hematology - [place] [address] [place] [address] Dr [place] [address] [place] [address] Prince Mri MD [address] [facility] [address] [place] [address] documented as of this encounter Visit Diagnoses Not on filedocumented in this encounter Care Teams It Training Specialist Relationship Specialty Start Date End Date Abrahan Mcgee MD [address] [place] [address] PCP - General Family Practice 04/03/24 documented as of this encounter
--- OUTSIDE RECORDS SUMMARY | 2024-12-04 10:19 | XMS_ITS | Encounter Summary ---
Author Organization [facility] Address [address] [place] [address] Care Team Providers Care Machine Tool Rebuilder Name Role Phone Abrahan Mcgee MD Primary Care Provider [phone] Encounter Details Date Type Department Care Team (Late st Contact Info) Description 12/05/2004 Outpatient Historical HIS [facility] DEPT Meryl [place] MD [address] [address] UTERINE LEIOMYOMA NOS (Primary Dx) Social History Tobacco Use Types Packs/Day Years Used Date Smoking Tobacco: Never Assessed Comments Unknown Sex and Gender Information Value Date Recorded Sex Assigned at Not on file Legal Sex Female 3:33 AM POT RUNNER Gender Identity Not on file Sexual Orientation Not on file documented as of this encounter Plan of Treatment Upcoming Encounters Date Type Department Care Team (Late st Contact Info) Description 04/04/2025 11:00 AM POT RUNNER Office Visit [facility] Oncology and Hematology - [place] [address] [place] [address] Dr [place] [address] [place] [address] [place] Mir MD [address] [facility] [address] [place] [address] documented as of this encounter Visit Diagnoses Diagnosis Leiomyoma of uterus, unspecified- Primary documented in this encounter Care Teams Machine Tool Rebuilder Relationship Specialty Start Date End Date Abrahan Mcgee MD [address] [place] [address] PCP - General Family Practice 04/03/24 documented as of this encounter
--- OUTSIDE RECORDS SUMMARY | 2024-12-04 10:19 | XMS_ITS | Encounter Summary ---
Author Organization [facility] Address [address] [place] [address] Care Team Providers Care Electron Gun Inspector Name Role Phone Abrahan Mcgee MD Primary Care Provider [phone] Encounter Details Date Type Department Care Team (Latest Contact Info) Description 09/16/2004 Outpatient Historical HIS [facility] ЕКАТЕРИНА Ernst, Andre Guardado MD NO ADDRESS ON FILE BENIGN HYPERTENSION (Primary Dx) Social History Tobacco Use Types Packs/Day Years Used Date Smoking Tobacco: Never Assessed Comments Unknown Sex and Gender Information Value Date Recorded Sex Assigned at Not on file Legal Sex Female 3:33 AM CLOSING SPECIALIST Gender Identity Not on file Sexual Orientation Not on file documented as of this encounter Plan of Treatment Upcoming Encounters Date Type Department Care Team (Late st Contact Info) Description 04/04/2025 11:00 AM CLOSING SPECIALIST Office Visit [facility] Oncology and Hematology - [place] [address] [facility] [address] [place] [address] [place] Mir MD [address] [facility] [address] [place] [address] documented as of this encounter [...] ORDERABLES Final Re sult Performing Organization Address [facility] de Phone Number INTERFACE SYSTEM [...] ORDERABLES Final Re sult Performing Organization Address [facility] de Phone Number INTERFACE SYSTEM Refer to clinic/hospital department * TSH (09/16/2004 11:48 AM CDT) TSH 1.55 0.27 - 4.20 uU/mL INTERFACE SYSTEM 09/16/2004 11:4 8 AM CDT Andre Ernst MD CHEMISTRY ORDERABLES Final Res ult Performing Organization Address [facility] Phone Number INTERFACE SYSTEM Refer to clinic/hospital [...] ORDERABLES Final Res ult Performing Organization Address [facility] Phone Number INTERFACE SYSTEM Refer to clinic/hospital department documented in this encounter Visit Diagnoses Diagnosis Essential hypertension, benign- Primary documented in this encounter Care Teams Electron Gun Inspector Relationship Specialty Start Date End Date Abrahan Mcgee MD [address] [place] [address] PCP - General Family Practice 04/03/24 documented as of this encounter
--- OUTSIDE RECORDS SUMMARY | 2024-12-04 10:19 | XMS_ITS | Encounter Summary ---
Author Organization [facility] Address [address] [place] [address] Care Team Providers Care Vice President Compliance Name Role Phone Abrahan Mcgee MD Primary Care Provider [phone] Encounter Details Date Type Department Care Team (Late st Contact Info) Description 12/04/2005 Outpatient Historical HIS [facility] Andre Ernst MD NO ADDRESS ON FILE Social History Tobacco Use Types Packs/Day Years Used Date Smoking Tobacco: Never Assessed Comments Unknown Sex and Gender Information Value Date Recorded Sex Assigned at Not on file Legal Sex Female 3:33 AM DIGITAL STRATEGIST Gender Identity Not on file Sexual Orientation Not on file documented as of this encounter Plan of Treatment Upcoming Encounters Date Type Department Care Team (Late st Contact Info) Description 04/04/2025 11:00 AM DIGITAL STRATEGIST Office Visit [facility] Oncology and Hematology - [place] [address] [place] [address] Dr [place] [address] [place] [address] Prince Mir MD [address] [facility] [address] [place] [address] documented as of this encounter Visit Diagnoses Not on filedocumented in this encounter Care Teams Vice President Compliance Relationship Specialty Start Date End Date Abrahan Mcgee MD [address] [place] [address] PCP - General Family Practice 04/03/24 documented as of this encounter
--- OUTSIDE RECORDS SUMMARY | 2024-12-04 10:19 | XMS_ITS | Encounter Summary ---
Author Organization [facility] Address [address] [place] [address] Care Team Providers Care Brake Repairer Air Name Role Phone Abrahan Mcgee MD Primary Care Provider [phone] Encounter Details Date Type Department Care Team (Late st Contact Info) Description 11/27/2002 Outpatient Historical HIS [facility] Berta Monae MD [address] [place] [address] Social History Tobacco Use Types Packs/Day Years Used Date Smoking Tobacco: Never Assessed Comments Unknown Sex and Gender Information Value Date Recorded Sex Assigned at Not on file Legal Sex Female 3:33 AM AIRPORT OPERATIONS COORDINATOR Gender Identity Not on file Sexual Orientation Not on file documented as of this encounter Plan of Treatment Upcoming Encounters Date Type Department Care Team (Late st Contact Info) Description 04/04/2025 11:00 AM AIRPORT OPERATIONS COORDINATOR Office Visit [facility] Oncology and Hematology - [place] [address] [place] [address] Dr [address] [place] [address] [place] [address] [place] [address] [address] [place] [address] documented as of this encounter Visit Diagnoses Not on filedocumented in this encounter Care Teams Brake Repairer Air Relationship Specialty Start Date End Date Abrahan Mcgee MD [address] [place] [address] PCP - General Family Practice 04/03/24 documented as of this encounter
--- OUTSIDE RECORDS SUMMARY | 2024-12-04 10:19 | XMS_ITS | Encounter Summary ---
Author Organization [facility] Address [address] [place] [address] Care Team Providers Care Suspension Cord Tier Name Role Phone Abrahan Mcgee MD Primary Care Provider [phone] Encounter Details Date Type Department Care Team (Latest Contact Info) Description 12/04/2005 Outpatient Historical HIS [facility] ЕКАТЕРИНА Ernst, Andre Guardado MD NO ADDRESS ON FILE Essential Hypertension, Benign (Primary Dx) Social History Tobacco Use Types Packs/Day Years Used Date Smoking Tobacco: Never Assessed Comments Unknown Sex and Gender Information Value Date Recorded Sex Assigned at Not on file Legal Sex Female 3:33 AM RADIO AERIAL INSTALLER Gender Identity Not on file Sexual Orientation Not on file documented as of this encounter Plan of Treatment Upcoming Encounters Date Type Department Care Team (Late st Contact Info) Description 04/04/2025 11:00 AM RADIO AERIAL INSTALLER Office Visit [facility] Oncology and Hematology - [place] [address] [facility] [address] [place] [address] [place] Mir MD [address] [facility] [address] [place] [address] documented as [...] Primary documented in this encounter Care Teams Suspension Cord Tier Relationship Specialty Start Date End Date Abrahan Mcgee MD [address] [place] [address] PCP - General Family Practice 04/03/24 documented as of this encounter
--- OUTSIDE RECORDS SUMMARY | 2024-12-04 10:19 | XMS_ITS | Clinical Summary ---
Author Organization [facility] Address [address] [place] [address] Care Team Providers Care Ap Processor Name Role Phone Luigi Nicole PA-C Primary Care Provider [phone] Luigi Nicole PA-C Unavailable Allergies Active Allergy [...] (eight) hours as needed. 07/08/19 Active ZENPEP 97081-51212 units CAPSULE ENTERIC COATED PARTICLES Take by [...] mouth nightly. Every other month Active Pancrelipase, Xvb-Cyfl-Rhoa, 19426-54865 units CAPSULE ENTERIC COATED PARTICLES Take 50,000 [...] drink = 0.6 oz pur e alcohol) [facility] Utilities Answer Date Recorded In the [...] any time in the past 12 [facility], were you homeless or living in a longterm (including now)? No 08/20/2023 Comments No Sex [...] COVID-19 Vaccine (1 - 2023-2 5 season) 2024 Influenza Adult (#1) 2024 01/20/2019 Meningococcal B Vaccine Aged Out No l onger eligible based on patient's age to complete this topic Meningococcal Vaccine Aged Out No morena aviva eligible based on patient's age to complete this topic RSV Immunizations Under 20 Months Aged Out No longer eligible based on patient's age to complete this topic Insurance [employer] MEDICARE [facility] MEDICARE Advance Directives * Full Code (Latest Code Status on File) Date Activated Date Inactivated Comments 08/20/2023 10:05 AM 08/21/2023 1:30 PM Care Teams Ap Processor Relationship Specialty Start Date End Date Luigi Nicole PA-C [address] [place] [address] PCP - General PHYSICIAN FOREIGN LANGUAGE INSTRUCTOR 08/20/23 Luigi Nicole PA-C [address] [address] PHYSICIAN FOREIGN LANGUAGE INSTRUCTOR 08/20/23
--- OUTSIDE RECORDS SUMMARY | 2024-12-04 10:19 | XMS_ITS | Encounter Summary ---
Author Organization [facility] Address [address] [place] [address] Care Team Providers Care Bleach Liquor Maker Name Role Phone Abrahan Mcgee MD Primary Care Provider [phone] Encounter Details Date Type Department Care Team (Latest Contact Info) Description 02/23/2005 Inpatient Historical [facility] Alcon Valadez MD [address] [address] Deisy Garcia MD [address] [address] CHEST PAIN NOS (Primary Dx) Social History Tobacco Use Types Packs/Day Years Used Date Smoking Tobacco: Never Assessed Comments Unknown Sex and Gender Information Value Date Recorded Sex Assigned at Not on file Legal Sex Female 3:33 AM ROTATING EQUIPMENT SPECIALIST Gender Identity Not on file Sexual Orientation Not on file documented as of this encounter Plan of Treatment Upcoming Encounters Date Type Department Care Team (Late st Contact Info) Description 04/04/2025 11:00 AM ROTATING EQUIPMENT SPECIALIST Office Visit [facility] Oncology and Hematology - [place] 2[address] [facility] [address] [place] [address] Prince Mir MD 2227 [facility] [address] [place] [address] documented as of this encounter Procedures Procedure Name Priority Date/Time Associated Diagnosis Comments CBC WITH DIFFERENTIAL Routine 02/25/2005 4:30 AM ROTATING EQUIPMENT SPECIALIST CBC WITH DIFFERENTIAL Routine 02/25/2005 4:30 AM ROTATING EQUIPMENT SPECIALIST C-REACTIVE PROTEIN Routine 02/25/2005 4: 30 AM ROTATING EQUIPMENT SPECIALIST T3 FREE Routine 02/25/2005 4:30 AM ROTATING EQUIPMENT SPECIALIST T4 FREE Routine 02/25/2005 4:30 AM ROTATING EQUIPMENT SPECIALIST BASIC METABOLIC PANEL Routine 02/25/2005 4:30 AM ROTATING EQUIPMENT SPECIALIST TSH Routine 02/24/2005 4:35 AM ROTATING EQUIPMENT SPECIALIST LIPASE Routine 02/24/2005 4:35 AM ROTATING EQUIPMENT SPECIALIST AMYLASE Routine 02/24/2005 4:35 AM ROTATING EQUIPMENT SPECIALIST LIPID PANEL Routine 02/24/2005 4:35 AM ROTATING EQUIPMENT SPECIALIST BASIC METABOLIC PANEL Routine 02/24/2005 4:35 AM ROTATING EQUIPMENT SPECIALIST TROPONIN (W/REFLEX CKMB/CK) Routine 02/24/2005 4:15 AM ROTATING EQUIPMENT SPECIALIST TROPONIN (W/REFLEX CKMB/CK) Routine 02/23/2005 10:15 PM ROTATING EQUIPMENT SPECIALIST URINALYSIS W/REFLEX MICROSCOPIC Routine 02/23/2005 8:31 PM ROTATING EQUIPMENT SPECIALIST TROPONIN (W/REFLEX CKMB/CK) Routine 02/23/2005 1:28 PM ROTATING EQUIPMENT SPECIALIST CBC WITH DIFFERENTIAL Routine 02/23/2005 12:46 PM ROTATING EQUIPMENT SPECIALIST CBC WITH DIFFERENTIAL Routine 02/23/2005 12:46 PM ROTATING EQUIPMENT SPECIALIST LIPASE Routine 02/23/2005 12:46 PM ROTATING EQUIPMENT SPECIALIST AMYLASE Routine 02/23/2005 12:46 PM ROTATING EQUIPMENT SPECIALIST COMPREHENSIVE METABOLIC PANEL Routine 02/23/2005 12:46 PM ROTATING EQUIPMENT SPECIALIST documented in this encounter Results * CBC WITH DIFFERENTIAL (02/25/2005 4:30 AM ROTATING EQUIPMENT SPECIALIST) NEUTROPHILS 52 45 - 70 % [...] 0.20 K/uL INTERFACE SYSTEM 02/25/2005 4:30 AM ROTATING EQUIPMENT SPECIALIST us Alcon Valadez MD HEMATOLOGY ORDERABLES Final Re sult Performing Organization Address [facility] de Phone Number INTERFACE SYSTEM Refer to clinic/hospital department * (ABNORMAL) CBC WITH DIFFERENTIAL (02/25/2005 4:30 AM ROTATING EQUIPMENT SPECIALIST) WBC 7.4 4.0 - 9.8 K/uL [...] 12.4 fL INTERFACE SYSTEM 02/25/2005 4:30 AM ROTATING EQUIPMENT SPECIALIST us Alcon Valadez MD HEMATOLOGY ORDERABLES Final Re sult Performing Organization Address [facility] de Phone Number INTERFACE SYSTEM Refer to clinic/hospital department * T3 FREE (02/25/2005 4:30 AM ROTATING EQUIPMENT SPECIALIST) T3 FREE 2.9 2.5 - 4.4 pg/mL INTERFACE SYSTEM 02/25/2005 4:30 AM ROTATING EQUIPMENT SPECIALIST us Alcon Valadez MD CHEMISTRY ORDERABLES Final Res ult Performing Organization Address [facility] Phone Number INTERFACE SYSTEM Refer to clinic/hospital department * T4 FREE (02/25/2005 4:30 AM ROTATING EQUIPMENT SPECIALIST) T4 FREE 1.3 0.9 - 1.7 ng/dL INTERFACE SYSTEM 02/25/2005 4:30 AM ROTATING EQUIPMENT SPECIALIST us Alcon Valadez MD CHEMISTRY ORDERABLES Final Res ult Performing Organization Address [facility] Phone Number INTERFACE SYSTEM Refer to clinic/hospital department * C-REACTIVE PROTEIN (02/25/2005 4:30 AM ROTATING EQUIPMENT SPECIALIST) CRP 0.6 0.0 - 0.8 mg/dL INTERFACE SYSTEM 02/25/2005 4:30 AM ROTATING EQUIPMENT SPECIALIST us Alcon Valadez MD CHEMISTRY ORDERABLES Final Res ult Performing Organization Address [facility] Phone Number INTERFACE SYSTEM Refer to clinic/hospital department * BASIC METABOLIC PANEL (02/25/2005 4:30 AM ROTATING EQUIPMENT SPECIALIST) GLUCOSE 89 65 - 109 mg/dL [...] 30 mmol/L INTERFACE SYSTEM 02/25/2005 4:30 AM ROTATING EQUIPMENT SPECIALIST Result An Valadez MD CHEMISTRY ORDERABLES Final Res ult Performing Organization Address [facility] Phone Number INTERFACE SYSTEM Refer to clinic/hospital department * (ABNORMAL) LIPASE (02/24/2005 4:35 AM ROTATING EQUIPMENT SPECIALIST) LIPASE 90(H) 13 - 60 U/L INTERFAC E SYSTEM 02/24/2005 4:35 AM ROTATING EQUIPMENT SPECIALIST Nora Sivaprasad CHEMISTRY ORDERABLES Final Resu lt Performing Organization Address [facility] Phone Number INTERFACE SYSTEM Refer to clinic/hospital department * (ABNORMAL) AMYLASE (02/24/2005 4:35 AM ROTATING EQUIPMENT SPECIALIST) AMYLASE 118(H) 28 - 100 U/L INTERFACE SYSTEM 02/24/2005 4:35 AM ROTATING EQUIPMENT SPECIALIST Nora Sivaprasad CHEMISTRY ORDERABLES Final Resu lt Performing Organization Address [facility] Phone Number INTERFACE SYSTEM Refer to clinic/hospital department * (ABNORMAL) TSH (02/24/2005 4:35 AM ROTATING EQUIPMENT SPECIALIST) TSH 4.33(H) 0.27 - 4.20 uU/mL INTERFACE SYSTEM 02/24/2005 4:35 AM ROTATING EQUIPMENT SPECIALIST Nora Sivaprasad CHEMISTRY ORDERABLES Final Resu lt Performing Organization Address [facility] Phone Number INTERFACE SYSTEM Refer to clinic/hospital department * LIPID PANEL (02/24/2005 4:35 AM ROTATING EQUIPMENT SPECIALIST) LIPID PANEL COMMENT See below INTERFACE [...] section for risk classifications. 02/24/2005 4:35 AM ROTATING EQUIPMENT SPECIALIST [facility] Pythian CHEMISTRY ORDERABLES Final Resu lt Performing Organization Address [facility] de Phone Number INTERFACE SYSTEM Refer to clinic/hospital department * BASIC METABOLIC PANEL (02/24/2005 4:35 AM ROTATING EQUIPMENT SPECIALIST) GLUCOSE 100 65 - 109 mg/dL [...] 30 mmol/L INTERFACE SYSTEM 02/24/2005 4:35 AM ROTATING EQUIPMENT SPECIALIST [facility] CHEMISTRY ORDERABLES Final Resu lt Performing Organization Address [facility] de Phone Number INTERFACE SYSTEM Refer to clinic/hospital department * TROPONIN (W/REFLEX CKMB/CK) (02/24/2005 4:15 AM ROTATING EQUIPMENT SPECIALIST) TROPONIN T <0.01 <=0.03 ng/mL INTERFACE SYSTEM TROPONIN T INTERP Negative INTERFACE SYSTEM 02/24/2005 4:15 AM ROTATING EQUIPMENT SPECIALIST Nora Sivaprasad CHEMISTRY ORDERABLES Final Resu lt Performing Organization Address [facility] Phone Number INTERFACE SYSTEM Refer to clinic/hospital department * TROPONIN (W/REFLEX CKMB/CK) (02/23/2005 10:15 PM ROTATING EQUIPMENT SPECIALIST) TROPONIN T <0.01 <=0.03 ng/mL INTERFACE SYSTEM TROPONIN T INTERP Negative INTERFACE SYSTEM 02/23/2005 10:1 5 PM ROTATING EQUIPMENT SPECIALIST [facility] Sivaprasad CHEMISTRY ORDERABLES Final Resu lt Performing Organization Address [facility] Phone Number INTERFACE SYSTEM Refer to clinic/hospital department * (ABNORMAL) URINALYSIS (02/23/2005 8:31 PM ROTATING EQUIPMENT SPECIALIST) COLOR UA Yellow INTERFACE SYSTEM CLARITY [...] 2-5 /HPF INTERFACE SYSTEM 02/23/2005 8:31 PM ROTATING EQUIPMENT SPECIALIST Nora Sivaprasad URINE ORDERABLES Final Result Performing Organization Address [facility] Phone Number INTERFACE SYSTEM Refer to clinic/hospital department * TROPONIN (W/REFLEX CKMB/CK) (02/23/2005 1:28 PM ROTATING EQUIPMENT SPECIALIST) TROPONIN T <0.01 <=0.03 ng/mL INTERFACE SYSTEM TROPONIN T INTERP Negative INTERFACE SYSTEM 02/23/2005 1:28 PM ROTATING EQUIPMENT SPECIALIST us Erika P Er CHEMISTRY ORDERABLES Final Resul t Performing Organization Address [facility] de Phone Number INTERFACE SYSTEM Refer to clinic/hospital department * CBC WITH DIFFERENTIAL (02/23/2005 12:46 PM ROTATING EQUIPMENT SPECIALIST) NEUTROPHILS 70 45 - 70 % [...] K/uL INTERFACE SYSTEM 02/23/2005 12:4 6 PM ROTATING EQUIPMENT SPECIALIST us Jasbir Sol MD HEMATOLOGY ORDERABLES Final Re sult Performing Organization Address [facility] Phone Number INTERFACE SYSTEM Refer to clinic/hospital department * (ABNORMAL) CBC WITH DIFFERENTIAL (02/23/2005 12:46 PM ROTATING EQUIPMENT SPECIALIST) WBC 9.3 4.0 - 9.8 K/uL [...] fL INTERFACE SYSTEM 02/23/2005 12:4 6 PM ROTATING EQUIPMENT SPECIALIST Jasbir Sol MD HEMATOLOGY ORDERABLES Final Re sult Performing Organization Address [facility] Phone Number INTERFACE SYSTEM Refer to clinic/hospital department * (ABNORMAL) LIPASE (02/23/2005 12:46 PM ROTATING EQUIPMENT SPECIALIST) LIPASE 91(H) 13 - 60 U/L INTERFAC E SYSTEM 02/23/2005 12:4 6 PM ROTATING EQUIPMENT SPECIALIST Jasbir Sol MD CHEMISTRY ORDERABLES Final Res ult Performing Organization Address [facility] Phone Number INTERFACE SYSTEM Refer to clinic/hospital department * (ABNORMAL) AMYLASE (02/23/2005 12:46 PM ROTATING EQUIPMENT SPECIALIST) AMYLASE 134(H) 28 - 100 U/L INTERFACE SYSTEM 02/23/2005 12:4 6 PM ROTATING EQUIPMENT SPECIALIST Jasbir Sol MD CHEMISTRY ORDERABLES Final Res ult Performing Organization Address [facility] Phone Number INTERFACE SYSTEM Refer to clinic/hospital department * (ABNORMAL) COMPREHENSIVE METABOLIC PANEL (02/23/2005 12:46 PM ROTATING EQUIPMENT SPECIALIST) GLUCOSE 115(H) 65 - 109 mg/dL [...] mmol/L INTERFACE SYSTEM 02/23/2005 12:4 6 PM ROTATING EQUIPMENT SPECIALIST us Jasibr Sol MD CHEMISTRY ORDERABLES Final Res ult INTERFACE SYSTEM Refer to clinic/hospital department documented in this encounter Visit Diagnoses Diagnosis Chest pain, unspecified- Primary documented in this encounter Care Teams Bleach Liquor Maker Relationship Specialty Start Date End Date Abrahan Mcgee MD [address] [place] [address] PCP - General Family Practice 04/03/24 documented as of this encounter
--- OUTSIDE RECORDS SUMMARY | 2024-12-04 10:19 | XMS_ITS | Encounter Summary ---
Author Organization [facility] Address [address] [place] [address] Care Team Providers Care Learning Support Assistant Name Role Phone Abrahan Mcgee MD Primary Care Provider Encounter Details Date Type Department Care Team (Late st Contact Info) Description 07/30/2005 Outpatient Historical [facility] Andre Ernst MD NO ADDRESS ON FILE Social History Tobacco Use Types Packs/Day Years Used Date Smoking Tobacco: Never Assessed Comments Unknown Sex and Gender Information Value Date Recorded Sex Assigned at Not on file Legal Sex Female 3:[address] OPERATIONS CLERK Gender Identity Not on file Sexual Orientation Not on file documented as of this encounter Plan of Treatment Upcoming Encounters Date Type Department Care Team (Late st Contact Info) Description 04/04/2025 11:[address] OPERATIONS CLERK Office Visit [facility] Oncology and Hematology - [place] [address] [place] [address] [address] [place] [address] Prince Mir MD [address] [facility] [address] [place] [address] documented as of this encounter Visit Diagnoses Not on filedocumented in this encounter Care Teams Learning Support Assistant Relationship Specialty Start Date End Date Abrahan Mcgee MD [address] [place] [address] PCP - General Family Practice 04/03/24 documented as of this encounter
--- OUTSIDE RECORDS SUMMARY | 2024-12-04 10:19 | XMS_ITS | Encounter Summary ---
Author Organization [facility] Address [address] [place] [address] Care Team Providers Care Customer Support Technician Name Role Phone Abrahan Mcgee MD [...] on file Legal Sex Female 3:33 AM RECEIVER BULK SYSTEM Gender Identity Not on file Sexual Orientation Not on file documented as of this encounter Plan of Treatment Upcoming Encounters Date Type Department Care Team (Late st Contact Info) Description 04/04/2025 11:00 AM RECEIVER BULK SYSTEM Office Visit [facility] Oncology and Hematology - [address] [place] [address] Prince Mir MD [address] [place] [address] [address] [place] [address] documented as of this encounter Visit Diagnoses Diagnosis Open wound of scalp, without mention of complication- Primary documented in this encounter Care Teams Customer Support Technician Relationship Specialty Start Date End Date Abrahan Mcgee MD [address] [place] [address] PCP - General Family Practice 04/03/24 documented as of this encounter
--- OUTSIDE RECORDS SUMMARY | 2024-12-04 10:19 | XMS_ITS | Encounter Summary ---
Author Organization [facility] Address [address] [place] [address] Care Team Providers Care Rubber Flap Cutter Name Role Phone Abrahan Mcgee MD Primary Care Provider [phone] Encounter Details Date Type Department Care Team (Late st Contact Info) Description 02/23/2005 Outpatient Historical [facility] Adult Hospitalists [address] [address] Deisy Garcia MD [address] [address] Social History Tobacco Use Types Packs/Day Years Used Date Smoking Tobacco: Never Assessed Comments Unknown Sex and Gender Information Value Date Recorded Sex Assigned at Not on file Legal Sex Female 3:33 AM RESPIRATORY CARE FACULTY Gender Identity Not on file Sexual Orientation Not on file documented as of this encounter Plan of Treatment Upcoming Encounters Date Type Department Care Team (Late st Contact Info) Description 04/04/2025 11:00 AM RESPIRATORY CARE FACULTY Office Visit [facility] Oncology and Hematology - [place] [address] [place] [address] [address] [place] [address] Prince Mir MD 2[address] [facility] [address] [place] [address] documented as of this encounter Visit Diagnoses Not on filedocumented in this encounter Care Teams Rubber Flap Cutter Relationship Specialty Start Date End Date Abrahan Mcgee MD [address] [place] [address] PCP - General Family Practice 04/03/24 documented as of this encounter
--- OUTSIDE RECORDS SUMMARY | 2024-12-04 10:19 | XMS_ITS | Encounter Summary ---
Author Organization [facility] Address [address] [place] [address] Care Team Providers Care Relief Docking Master Name Role Phone Abrahan Mcgee MD Primary Care Provider [phone] Encounter Details Date Type Department Care Team (Latest Contact Info) Description 10/17/2002 Outpatient Historical HIS [facility] Ernst, Andre Guardado MD NO ADDRESS ON FILE SOLITARY CYST OF BREAST (Primary Dx) Social History Tobacco Use Types Packs/Day Years Used Date Smoking Tobacco: Never Assessed Comments Unknown Sex and Gender Information Value Date Recorded Sex Assigned at Not on file Legal Sex Female 3:33 AM TUB RIDER Gender Identity Not on file Sexual Orientation Not on file documented as of this encounter Plan of Treatment Upcoming Encounters Date Type Department Care Team (Late st Contact Info) Description 04/04/2025 11:00 AM TUB RIDER Office Visit [facility] Oncology and Hematology - [place] [address] [facility] [address] [place] [address] [place] [address] [place] [address] [address] [place] [address] documented as of this encounter Visit Diagnoses Diagnosis Solitary cyst of breast- Primary documented in this encounter Care Teams Relief Docking Master Relationship Specialty Start Date End Date Abrahan Mcgee MD [address] [place] [address] PCP - General Family Practice 04/03/24 documented as of this encounter
--- OUTSIDE RECORDS SUMMARY | 2024-12-04 10:19 | XMS_ITS | Encounter Summary ---
Author Organization [facility] Address [address] [place] [address] Care Team Providers Care Elementary Science Teacher Name Role Phone Abrahan Mcgee MD Primary Care Provider [phone] Encounter Details Date Type Department Care Team (Late Contact Info) Description 02/24/2005 Outpatient Historical [facility] Adult Hospitalists [facility] [address] [place] [address] Alcon Valadez MD [address] [place] [address] Social History Tobacco Use Types Packs/Day Years Used Date Smoking Tobacco: Never Assessed Comments Unknown Sex and Gender Information Value Date Recorded Sex Assigned at Not on file Legal Sex Female 3:33 AM RETORT ENGINEER Gender Identity Not on file Sexual Orientation Not on file documented as of this encounter Plan of Treatment Upcoming Encounters Date Type Department Care Team (Late st Contact Info) Description 04/04/2025 11:00 AM RETORT ENGINEER Office Visit [facility] Oncology and Hematology - [place] [address] [facility] [address] [place] [address] Prince Mir MD [address] [facility] [address] [place] [address] documented as of this encounter Visit Diagnoses Not on filedocumented in this encounter Care Teams Elementary Science Teacher Relationship Specialty Start Date End Date Abrahan Mcgee MD [address] [place] [address] PCP - General Family Practice 04/03/24 documented as of this encounter
--- OUTSIDE RECORDS SUMMARY | 2024-12-04 10:19 | XMS_ITS | Encounter Summary ---
Author Organization [facility] Address [address] [place] [address] Care Team Providers Care Sulfuric Acid Plant Supervisor Name Role Phone Abrahan Mcgee MD Primary Care Provider [phone] Encounter Details Date Type Department Care Team (Latest Contact Info) Description 02/07/2004 Outpatient Historical HIS [facility] Е[facility]ТЕРИНА Ernst, Andre Guardado MD NO ADDRESS ON FILE BENIGN HYPERTENSION (Primary Dx) Social History Tobacco Use Types Packs/Day Years Used Date Smoking Tobacco: Never Assessed Comments Unknown Sex and Gender Information Value Date Recorded Sex Assigned at Not on file Legal Sex Female 3:33 AM FOUR SLIDE MACHINE OPERATOR Gender Identity Not on file Sexual Orientation Not on file documented as of this encounter Plan of Treatment Upcoming Encounters Date Type Department Care Team (Late st Contact Info) Description 04/04/2025 11:00 AM FOUR SLIDE MACHINE OPERATOR Office Visit [facility] Oncology and Hematology - [place] [address] [place] [address] [address] [place] [address] [place] [address] [place] [address] [address] [place] [address] documented as of this encounter Visit Diagnoses Diagnosis Essential hypertension, benign- Primary documented in this encounter Care Teams Sulfuric Acid Plant Supervisor Relationship Specialty Start Date End Date Abrahan Mcgee MD [address] [place] [address] PCP - General Family Practice 04/03/24 documented as of this encounter
--- OUTSIDE RECORDS SUMMARY | 2024-12-04 10:19 | XMS_ITS | Encounter Summary ---
Author Organization [facility] Address [address] [place] [address] Care Team Providers Care Signal Person Name Role Phone Abrahan Mcgee MD Primary Care Provider [phone] Encounter Details Date Type Department Care Team (Late st Contact Info) Description 12/18/2004 Outpatient Historical [facility] Andre Ernst MD NO ADDRESS ON FILE Social History Tobacco Use Types Packs/Day Years Used Date Smoking Tobacco: Never Assessed Comments Unknown Sex and Gender Information Value Date Recorded Sex Assigned at Not on file Legal Sex Female 3:33 AM DATA WAREHOUSING ENGINEER Gender Identity Not on file Sexual Orientation Not on file documented as of this encounter Plan of Treatment Upcoming Encounters Date Type Department Care Team (Late st Contact Info) Description 04/04/2025 11:00 AM DATA WAREHOUSING ENGINEER Office Visit [facility] Oncology and Hematology - [place] [address] [place] [address] [address] [place] [address] Prince Mir MD [address] [facility] [address] [place] [address] documented as of this encounter Visit Diagnoses Not on filedocumented in this encounter Care Teams Signal Person Relationship Specialty Start Date End Date Abrahan Mcgee MD [address] [place] [address] PCP - General Family Practice 04/03/24 documented as of this encounter
--- OUTSIDE RECORDS SUMMARY | 2024-12-04 10:19 | XMS_ITS | Encounter Summary ---
Author Organization [facility] Address [address] [place] [address] Care Team Providers Care Imaging Nurse Name Role Phone Abrahan Mcgee MD [...] on file Legal Sex Female 3:33 AM COLLECTION SYSTEMS TECHNICIAN Gender Identity Not on file Sexual Orientation Not on file documented as of this encounter Plan of Treatment Upcoming Encounters Date Type Department Care Team (Late st Contact Info) Description 04/04/2025 11:00 AM COLLECTION SYSTEMS TECHNICIAN Office Visit [facility] Oncology and Hematology - [place] [address] [place] [address] [address] [place] [address] [place] [address] [place] [address] [address] [place] [address] documented as of this encounter Visit Diagnoses Diagnosis Allergic rhinitis due to pollen- Primary documented in this encounter Care Teams Imaging Nurse Relationship Specialty Start Date End Date Abrahan Mcgee MD [address] [place] [address] PCP - General Family Practice 04/03/24 documented as of this encounter
--- OUTSIDE RECORDS SUMMARY | 2024-12-04 10:19 | XMS_ITS | Clinical Summary ---
Author Organization [facility] Care Team Providers Care Laser Systems Engineer Name Role Phone Unavailable Primary Care [...]
--- OUTSIDE RECORDS SUMMARY | 2024-12-04 10:19 | XMS_ITS | Encounter Summary ---
Author Organization [facility] Address [address] [place] [address] Care Team Providers Care Pancake Professional Name Role Phone Abrahan Mcgee MD Primary Care Provider Encounter Details Date Type Department Care Team (Late st Contact Info) Description 06/11/2005 Outpatient Historical HIS [facility] Andre Ernst MD NO ADDRESS ON FILE Social History Tobacco Use Types Packs/Day Years Used Date Smoking Tobacco: Never Assessed Comments Unknown Sex and Gender Information Value Date Recorded Sex Assigned at Not on file Legal Sex Female 3:33 AM PROBATE JUDGE Gender Identity Not on file Sexual Orientation Not on file documented as of this encounter Plan of Treatment Upcoming Encounters Date Type Department Care Team (Late st Contact Info) Description 04/04/2025 11:00 AM PROBATE JUDGE Office Visit [facility] Oncology and Hematology - [place] [address] [place] [address] [address] [place] [address] Prince Mir MD [address] [facility] [address] [place] [address] documented as of this encounter Visit Diagnoses Not on filedocumented in this encounter Care Teams Pancake Professional Relationship Specialty Start Date End Date Abrahan Mcgee MD [address] [place] [address] PCP - General Family Practice 04/03/24 documented as of this encounter
--- OUTSIDE RECORDS SUMMARY | 2024-12-04 10:19 | XMS_ITS | Encounter Summary ---
Author Organization [facility] Address [address] [place] [address] Care Team Providers Care Fisher Troll Line Name Role Phone Abrahan Mcgee MD Primary Care Provider [phone] Encounter Details Date Type Department Care Team (Late st Contact Info) Description 09/16/2004 Outpatient Historical HIS [facility] Andre Ernst MD NO ADDRESS ON FILE Social History Tobacco Use Types Packs/Day Years Used Date Smoking Tobacco: Never Assessed Comments Unknown Sex and Gender Information Value Date Recorded Sex Assigned at Not on file Legal Sex Female 3:33 AM PRACTICE ARCHITECT Gender Identity Not on file Sexual Orientation Not on file documented as of this encounter Plan of Treatment Upcoming Encounters Date Type Department Care Team (Late st Contact Info) Description 04/04/2025 11:00 AM PRACTICE ARCHITECT Office Visit [facility] Oncology and Hematology - [place] [address] [place] [address] [address] [place] [address] Prince Mir MD [address] [facility] [address] [place] [address] documented as of this encounter Visit Diagnoses Not on filedocumented in this encounter Care Teams Fisher Troll Line Relationship Specialty Start Date End Date Abrahan Mcgee MD [address] [place] [address] PCP - General Family Practice 04/03/24 documented as of this encounter
--- OUTSIDE RECORDS SUMMARY | 2024-12-04 10:19 | XMS_ITS | Encounter Summary ---
Author Organization [facility] Address [address] [place] [address] Care Team Providers Care Cellular Tower Climber Name Role Phone Abrahan Mcgee MD Primary Care Provider [phone] Encounter Details Date Type Department Care Team (Late st Contact Info) Description 02/24/2005 Outpatient Historical [facility] Support Serv. ([facility]) [address] [place] [id number] Carmine Morales MD NO ADDRESS ON FILE [...] st Contact Info) Description 04/04/2025 11:00 AM TELEPHONE ANSWERING SERVICE OPERATOR Office Visit [facility] Oncology and Hematology - [place] [address] [place] [address] [address] [place] [address] Prince Mir MD [address] [facility] [address] [place] [address] documented as of this encounter Visit Diagnoses Not on filedocumented in this encounter Care Teams Cellular Tower Climber Relationship Specialty Start Date End Date Abrahan Mcgee MD [address] [place] [address] PCP - General Family Practice 04/03/24 documented as of this encounter
--- OUTSIDE RECORDS SUMMARY | 2024-12-04 10:19 | XMS_ITS | Encounter Summary ---
Author Organization [facility] Address [address] [place] [address] Care Team Providers Care Instrument Installer Name Role Phone Abrahan Mcgee MD [...] on file Legal Sex Female 3:33 AM BRICKLAYER PAVING BRICK Gender Identity Not on file Sexual Orientation Not on file documented as of this encounter Plan of Treatment Upcoming Encounters Date Type Department Care Team (Late st Contact Info) Description 04/04/2025 11:00 AM BRICKLAYER PAVING BRICK Office Visit [facility] Oncology and Hematology - [place] [address] [facility] [address] [place] [address] [place] [address] [place] [address] [address] [place] [address] documented as of this encounter Visit Diagnoses Diagnosis Unspecified symptom associated with female genital organs- Primary documented in this encounter Care Teams Instrument Installer Relationship Specialty Start Date End Date Abrahan Mcgee MD [address] [place] [address] PCP - General Family Practice 04/03/24 documented as of this encounter
--- OUTSIDE RECORDS SUMMARY | 2024-12-04 10:19 | XMS_ITS | Encounter Summary ---
Author Organization [facility] Address [address] [place] [address] Care Team Providers Care Salesperson [employer]ers [employer] Name Role Phone Abrahan Mcgee MD Primary Care Provider [phone] Encounter Details Date Type Department Care Team (Late st Contact Info) Description 02/23/2005 Outpatient Historical [facility] ([facility]) [address] [place] [id number] Guero Malhotra MD NO ADDRESS ON FILE Social History Tobacco Use Types Packs/Day Years Used Date Smoking Tobacco: Never Assessed Comments Unknown Sex and Gender Information Value Date Recorded Sex Assigned at Not on file Legal Sex Female 3:33 AM ANNUAL GIVING DIRECTOR Gender Identity Not on file Sexual Orientation Not on file documented as of this encounter Plan of Treatment Upcoming Encounters Date Type Department Care Team (Late st Contact Info) Description 04/04/2025 11:00 AM ANNUAL GIVING DIRECTOR Office Visit [facility] Oncology and Hematology - [place] [address] [place] [address] [address] [place] [address] Prince Mir MD [address] [facility] [address] [place] [address] documented as of this encounter Visit Diagnoses Not on filedocumented in this encounter Care Teams Salesperson [employer] Relationship Specialty Start Date End Date Abrahan Mcgee MD [address] [place] [address] PCP - General Family Practice 04/03/24 documented as of this encounter
--- OUTSIDE RECORDS SUMMARY | 2024-12-04 10:19 | XMS_ITS | Encounter Summary ---
Author Organization [facility] Address [address] [place] [address] Care Team Providers Care Resource Development Manager Name Role Phone Abrahan Mcgee MD Primary Care Provider Encounter Details Date Type Department Care Team (Late st Contact Info) Description 01/06/2006 Outpatient Historical HIS [facility] Andre Ernst MD NO ADDRESS ON FILE Social History Tobacco Use Types Packs/Day Years Used Date Smoking Tobacco: Never Assessed Comments Unknown Sex and Gender Information Value Date Recorded Sex Assigned at Not on file Legal Sex Female 3:33 AM MANAGER UNIX Gender Identity Not on file Sexual Orientation Not on file documented as of this encounter Plan of Treatment Upcoming Encounters Date Type Department Care Team (Late st Contact Info) Description 04/04/2025 11:00 AM MANAGER UNIX Office Visit [facility] Oncology and Hematology - [place] [address] [place] [address] [address] [place] [address] Prince Mir MD [address] [facility] [address] [place] [address] documented as of this encounter Visit Diagnoses Not on filedocumented in this encounter Care Teams Resource Development Manager Relationship Specialty Start Date End Date Abrahan Mcgee MD [address] [place] [address] PCP - General Family Practice 04/03/24 documented as of this encounter
--- OUTSIDE RECORDS SUMMARY | 2024-12-04 10:19 | XMS_ITS | Encounter Summary ---
Author Organization [facility] Address [address] [place] [address] Care Team Providers Care Plate Cleaner Name Role Phone Abrahan Mcgee MD Primary Care Provider Encounter Details Date Type Department Care Team (Late st Contact Info) Description 07/06/2003 Outpatient Historical HIS [facility] Andre Ernst MD NO ADDRESS ON FILE Social History Tobacco Use Types Packs/Day Years Used Date Smoking Tobacco: Never Assessed Comments Unknown Sex and Gender Information Value Date Recorded Sex Assigned at Not on file Legal Sex Female 3:33 AM POST GRADUATE INTERN Gender Identity Not on file Sexual Orientation Not on file documented as of this encounter Plan of Treatment Upcoming Encounters Date Type Department Care Team (Late st Contact Info) Description 04/04/2025 11:00 AM POST GRADUATE INTERN Office Visit [facility] Oncology and Hematology - [place] [address] [place] [address] [address] [place] [address] Prince Mir MD [address] [facility] [address] [place] [address] documented as of this encounter Visit Diagnoses Not on filedocumented in this encounter Care Teams Plate Cleaner Relationship Specialty Start Date End Date Abrahan Mcgee MD [address] [place] [address] PCP - General Family Practice 04/03/24 documented as of this encounter
--- OUTSIDE RECORDS SUMMARY | 2024-12-04 10:19 | XMS_ITS | Encounter Summary ---
Author Organization [facility] Address [address] [place] [address] Care Team Providers Care Network Coordinator Name Role Phone Abrahan Mcgee MD Primary Care Provider [phone] Encounter Details Date Type Department Care Team (Latest Contact Info) Description 08/15/2004 Outpatient Historical HIS [facility] Ernst, Andre Guardado MD NO ADDRESS ON FILE HYPOPOTASSEMIA (Primary Dx) Social History Tobacco Use Types Packs/Day Years Used Date Smoking Tobacco: Never Assessed Comments Unknown Sex and Gender Information Value Date Recorded Sex Assigned at Not on file Legal Sex Female 3:33 AM TRIMMER SORTER Gender Identity Not on file Sexual Orientation Not on file documented as of this encounter Plan of Treatment Upcoming Encounters Date Type Department Care Team (Late st Contact Info) Description 04/04/2025 11:00 AM TRIMMER SORTER Office Visit [facility] [place] Oncology and Hematology - [place] [address] [facility] [address] [place] [address] Prince Mir MD [address] [facility] [address] [place] [address] documented as of this [...] Primary documented in this encounter Care Teams Network Coordinator Relationship Specialty Start Date End Date Abrahan Mcgee MD [address] [place] [address] PCP - General Family Practice 04/03/24 documented as of this encounter
--- OUTSIDE RECORDS SUMMARY | 2024-12-04 10:19 | XMS_ITS | Encounter Summary ---
Author Organization [facility] Address [address] [place] [address] Care Team Providers Care Language Therapist Name Role Phone Abrahan Mcgee MD Primary Care Provider [phone] Encounter Details Date Type Department Care Team (Latest Contact Info) Description 06/11/2005 Outpatient Historical HIS [facility] ЕК[facility]ИНА Ernst, Andre Guardado MD NO ADDRESS ON FILE Headache (Primary Dx) Social History Tobacco Use Types Packs/Day Years Used Date Smoking Tobacco: Never Assessed Comments Unknown Sex and Gender Information Value Date Recorded Sex Assigned at Not on file Legal Sex Female 3:33 AM SENIOR COMPLIANCE ANALYST Gender Identity Not on file Sexual Orientation Not on file documented as of this encounter Plan of Treatment Upcoming Encounters Date Type Department Care Team (Late st Contact Info) Description 04/04/2025 11:00 AM SENIOR COMPLIANCE ANALYST Office Visit [facility] Oncology and Hematology - [place] [address] [facility] [address] [place] [address] Prince Mir MD [address] [facility] [address] [place] [address] documented as of this encounter Procedures Procedure Name Priority Date/Time Associated Diagnosis Comments CBC WITH DIFFERENTIAL Routine 06/11/2005 11:29 AM CDT CBC WITH DIFFERENTIAL Routine 06/11/2005 11:29 AM CDT COMPREHENSIVE METABOLIC PANEL Routine 06/11/2005 11:29 AM CDT documented in this encounter Results * CBC WITH DIFFERENTIAL (06/11/2005 11:29 AM CDT) Pathologist [facility] NEUTROPHILS 65 45 - 70 % INTERFAC [...] ORDERABLES Final Re sult Performing Organization Address [facility] de Phone Number INTERFACE SYSTEM Refer to clinic/hospital department * (ABNORMAL) CBC WITH DIFFERENTIAL (06/11/2005 11:29 AM CDT) [facility] WBC 8.1 4.0 - 9.8 K/uL [...] ORDERABLES Final Re sult Performing Organization Address [facility] de Phone Number [...] Headache documented in this encounter Care Teams Language Therapist Relationship Specialty Start Date End Date Abrahan Mcgee MD [address] [place] [address] PCP - General Family Practice 04/03/24 documented as of this encounter
--- OUTSIDE RECORDS SUMMARY | 2024-12-04 10:19 | XMS_ITS | Encounter Summary ---
Author Organization [facility] Address [address] [place] [address] Care Team Providers Care Swine Nutritionist Name Role Phone Abrahan Mcgee MD Primary Care Provider [phone] Encounter Details Date Type Department Care Team (Late st Contact Info) Description 12/01/2002 Outpatient Historical [facility] Berta Monae MD [address] [place] [address] NONRUPTURED CEREBRAL ANEURYSM (Primary Dx) Social History Tobacco Use Types Packs/Day Years Used Date Smoking Tobacco: Never Assessed Comments Unknown Sex and Gender Information Value Date Recorded Sex Assigned at Not on file Legal Sex Female 3:33 AM BRAKE REPAIRER RAILROAD Gender Identity Not on file Sexual Orientation Not on file documented as of this encounter Plan of Treatment Upcoming Encounters Date Type Department Care Team (Late st Contact Info) Description 04/04/2025 11:00 AM BRAKE REPAIRER RAILROAD [facility] Hematology - [place] [address] [facility] [address] [place] [address] Prince Mir MD [address] [facility] [address] [place] [address] documented as of this encounter Visit Diagnoses Diagnosis Cerebral aneurysm, nonruptured- Primary documented in this encounter Care Teams Swine Nutritionist Relationship Specialty Start Date End Date Abrahan Mcgee MD [address] [place] [address] PCP - General Family Practice 04/03/24 documented as of this encounter
--- OUTSIDE RECORDS SUMMARY | 2024-12-04 10:19 | XMS_ITS | Encounter Summary ---
Author Organization [facility] Address [address] [place] [address] Care Team Providers Care Net Programmer Name Role Phone Abrahan Mcgee MD Primary Care Provider [phone] Encounter Details Date Type Department Care Team (Latest Contact Info) Description 07/06/2003 Outpatient Historical HIS [facility] ЕКАТЕРИНА Ernst, Andre Guardado MD NO ADDRESS ON FILE BENIGN HYPERTENSION (Primary Dx) Social History Tobacco Use Types Packs/Day Years Used Date Smoking Tobacco: Never Assessed Comments Unknown Sex and Gender Information Value Date Recorded Sex Assigned at Not on file Legal Sex Female 3:33 AM FLEXOGRAPHIC PRINTING MACHINIST Gender Identity Not on file Sexual Orientation Not on file documented as of this encounter Plan of Treatment Upcoming Encounters Date Type Department Care Team (Late st Contact Info) Description 04/04/2025 11:00 AM FLEXOGRAPHIC PRINTING MACHINIST Office Visit [facility] Oncology and Hematology - [place] [address] [place] [address] [address] [place] [address] [place] [address] [place] [address] [address] [place] [address] documented as of this encounter Visit Diagnoses Diagnosis Essential hypertension, benign- Primary documented in this encounter Care Teams Net Programmer Relationship Specialty Start Date End Date Abrahan Mcgee MD [address] [place] [address] PCP - General Family Practice 04/03/24 documented as of this encounter
[2024-12-04 10:28] LABS: Amylase 98 U/L (30-110); Cholesterol 193 mg/dL (0-200); HDL Direct 61 mg/dL; Triglycerides 104 mg/dL (<150)
[2024-12-04 10:30] LABS: Iron 68 ug/dL (37-170)
[2024-12-04 10:40] LABS: Percent Iron Saturation 23 % (20-50)
[2024-12-04 11:04] LABS: Thyroid Stimulating Hormone 1.610 uIU/mL (0.465-4.680)
== END 2024-12-04 09:25 | disposition home or self-care (01) ==
LOC: ANHLAB 09:29
PROVIDERS: PCP Family Medicine
DX: E78.00 Pure hypercholesterolemia, unspecified (principal); K86.81 Exocrine pancreatic insufficiency; I10 Essential (primary) hypertension; E55.9 Vitamin D deficiency, unspecified; D50.9 Iron deficiency anemia, unspecified
CPT/HCPCS: 36415; 80061; 82150; 82306; 83540; 83550; 84443

== ENCOUNTER 2024-12-14 15:08 | Outpatient (CLI) | payer MEDICARE, SELFPAY ==
--- NOTE | ~2024-12-14 | XR_ITS ---
EXAMINATION: XR chest 2V, 12/14/2024 15:12 CDT HISTORY: R07.9 - Chest pain, unspecified COMPARISON: No comparisons available. Technique: 2 views obtained. Findings: COPD changes with trace left effusion. No pneumothorax. Heart is normal size. Mediastinal and hilar contours are within normal limits. Bony thorax no acute abnormality. Impression: Small left effusion Reviewed, dictated and finalized at location P. Impression: Small left effusion
== END 2024-12-14 15:09 | disposition home or self-care (01) ==
LOC: MICIMG 15:10
PROVIDERS: PCP Family Medicine; Visit Provider Family Medicine
DX: R07.9 Chest pain, unspecified (principal); R06.00 Dyspnea, unspecified; J90 Pleural effusion, not elsewhere classified
CPT/HCPCS: 71046

== ENCOUNTER 2025-01-21 21:40 | Emergency (ER) | payer MEDICARE, SELFPAY ==
--- OUTSIDE RECORDS SUMMARY | 2016-07-20 23:00 | XMS_ITS | Encounter Summary ---
Author Organization [facility] Healthcare Address [address] [place] [address] Care Team Providers Care Geochemical Laboratory Technician Name Role Phone Abrahan Mcgee MD Primary Care Provider [phone] Reason for Visit * Diagnostic Imaging (Routine) - Closed Specialty Diagnoses / Procedures Referred By Contac t Referred To Contact Procedures Breast Imaging Diagnostic Outside Reference Aft, Sweta Gleason [place] PhD [address] [place] [address] Phone: tel: fax: Referral ID Status Reason Start Date Expiration Date Visits Re quested Visits Authorized [id number] Closed 01/19/2022 02/18/2023 1 1 Encounter Details Date Type Department Care Team (Late st Contact Info) Description 07/21/2016 Hospital Encounter [facility] [address] [place] [id number] Social History Tobacco Use Types Packs/Day Years Used Date Smoking Tobacco: Former Smokeless Tobacco: Former Alcohol Use Standard Drinks/Week Comments No 0 (1 standard drink = 0.6 oz pur e alcohol) AUDIT-C Answer Date Recorded Q1: How often do you have a drink containing alcohol? Never 11/10/2021 Q2: How many drinks containi ng alcohol do you have on a typical day when you are drinking? Patient does not drink Q3: How often do you have si x or more drinks on one occasion? Never 11/10/2021 Comments No Sex and Gender Information Value Date Recorded Sex Assigned at Not on file Legal 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:42 PM DYE AND CHEMICAL COORDINATOR Gender Identity Not on file Sexual Orientation Not on file documented as of this encounter Functional Status * Question Answer Date of Assessment Author BP Location Left arm 09/06/2019 9:10 AM Breana Matias RN BP Method Automatic 09/06/2019 10:42 AM WEST Sloane Freed RN MAP (mmHg) 82 11/10/2021 11:34 AM CDT Loraine King RN * Sheth Fall Risk Question Answer Date of Assessment Author History of Falling 0 09/06/2019 9:10 AM Breana Matias RN Secondary Diagnosis 0 11/10/2021 10:32 AM Dora Maher RN Ambulatory Aids 0 11/10/2021 10:32 AM WEST Dora Costello RN Intravenous Therapy/Heparin/Saline Lock 20 11/10/2021 10:32 AM Kenyatta Groves RN Gait/Transferring 0 11/10/2021 10:32 AM Dora Groves RN Mental Status 0 11/10/2021 10:32 AM CDT Dora Garcias RN Sheth Fall Risk Score (Score >= 45 places fall precaution order) 20 11/10/2021 10:32 AM Dora Groves RN Prior Fall Event (Autopopulated from EMR) None found 11/10/2021 10:32 AM Dora Groves RN * Fall Risk Interventions Question Answer Date of Assessment Author All Low Fall Interventions Applied Yes 09/06/2019 9:10 AM Breana Matias RN * AUDIT-C Score Answer Date of Assessment Author 0 11/10/2021 10:27 AM Kenyatta Groves RN * Alcohol Use Question Answer Date of Assessment Author Q1: How often do you have a drink containing alcohol? Never 11/10/2021 10:27 AM Dora Groves RN Q2: How many drinks containing alcohol do you have on a typical day when you are drinking? Patient does not drink 11/10/2021 10:27 AM Dora Groves RN Q3: How often do you have six or more drinks on one occasion? Never 11/10/2021 10:27 AM Dora Groves RN * Question Answer Date of Assessment Author BP Location Left arm 09/06/2019 9:10 AM CDT Breana Schreiber RN BP Method Automatic 09/06/2019 10:42 AM CDT Sloane Freed RN * Fall Risk Interventions Question Answer Date of Assessment Author All Low Fall Interventions Applied Yes 09/06/2019 9:10 AM CDT Breana Schreiber RN documented as of this encounter Plan of Treatment Not on file documented as of this encounter Procedures Procedure Name Priority Date/Time Associated Diagnosis Comments BREAST IMAGING MG DIAGNOSTIC OUTSIDE REFERENCE Routine 07/21/2016 12:00 AM CDT documented in this encounter Results * Breast Imaging Diagnostic Outside Reference (07/21/2016 12:00 AM CDT) Impressions [facility] - 01/19/2022 10:56 AM DYE AND CHEMICAL COORDINATOR These images are for Reference purposes only and have not been reviewed by [facility] Radiology. There will be no report generated by a [facility] Radiologist. Narrative [facility] - 01/19/2022 10:56 AM DYE AND CHEMICAL COORDINATOR EXAMINATION: Images For Reference Purposes Only us Sweta Conteh MD PhD IMG MAMMO PROCEDURES Final Result [facility] documented in this encounter Visit Diagnoses Not on filedocumented in this encounter Care Teams Geochemical Laboratory Technician Relationship Specialty Start Date End Date Abrahan Mcgee MD PCP - General 10/06/11 09/09/16 documented as of this encounter
--- OUTSIDE RECORDS SUMMARY | 2016-07-20 23:00 | XMS_ITS | Encounter Summary ---
Author Organization [facility] Healthcare Address [address] [place] [address] Care Team Providers Care Flavorings Compounder Name Role Phone Abrahan Mcgee MD Primary Care Provider [phone] Reason for Visit * Diagnostic Imaging (Routine) - Closed Specialty Diagnoses / Procedures Referred By Contac t Referred To Contact Procedures Breast Imaging Diagnostic Outside Reference Aft, Sweta Gleason MD PhD [address] [place] [address] Phone: tel: fax: Referral ID Status Reason Start Date Expiration Date Visits Re quested Visits Authorized [id number] Closed 01/19/2022 02/18/2023 1 1 Encounter Details Date Type Department Care Team (Late st Contact Info) Description 07/21/2016 Hospital Encounter [facility] [address] [place] [phone] Social History Tobacco Use Types Packs/Day Years [...] on file Legal 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:42 PM NURSING ADMINISTRATOR Gender Identity Not on file Sexual Orientation [...] CDT) Impressions [facility] - 01/19/2022 10:56 AM NURSING ADMINISTRATOR These images are for Reference purposes only and have not been reviewed by [facility] Radiology. There will be no report generated by a [facility] Radiologist. Narrative [facility] - 01/19/2022 10:56 AM NURSING ADMINISTRATOR EXAMINATION: Images For Reference Purposes Only us Sweta Conteh MD PhD IMG MAMMO PROCEDURES Final Result [facility] documented in this encounter Visit Diagnoses Not on filedocumented in this encounter Care Teams Flavorings Compounder Relationship Specialty Start Date End Date Abrahan Mcgee MD PCP - General 10/06/11 09/09/16 documented as of this encounter
--- OUTSIDE RECORDS SUMMARY | 2017-07-22 23:00 | XMS_ITS | Encounter Summary ---
Author Organization [facility] Healthcare Address [address] [place] [address] Care Team Providers Care Sql Ssis Developer Name Role Phone Krishna Medina MD Primary Care Provider [phone] Reason for Visit * Diagnostic Imaging (Routine) - Closed Specialty Diagnoses / Procedures Referred By Contac t Referred To Contact Procedures Breast Imaging Screening Outside Reference Aft, Sweta Gleason MD PhD [address] [place] [address] Phone: tel: fax: Referral ID Status Reason Start Date Expiration Date Visits Re quested Visits Authorized [id number] Closed 01/19/2022 02/18/2023 1 1 Encounter Details Date Type Department Care Team (Late st Contact Info) Description 07/23/2017 Hospital Encounter [facility] [address] [place], [place] [phone] Social History Tobacco Use Types Packs/Day Years [...] on file Legal 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: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 Gender Identity Not on file Sexual Orientation Not on file documented as of this encounter Functional Status * Question Answer Date of Assessment Author BP Location Left arm 09/06/2019 9:10 AM WEST Breana Schreiber RN BP Method Automatic 09/06/2019 [...] RN Mental Status 0 11/10/2021 10:32 AM WEST Dora Garcias RN Sheth Fall Risk Score [...] Date/Time Associated Diagnosis Comments BREAST IMAGING MG SCREENING OUTSIDE REFERENCE Routine 07/23/2017 12:00 AM CDT documented in this encounter Results * Breast Imaging Screening Outside Reference (07/23/2017 12:00 AM CDT) Impressions [facility] - 01/19/2022 10:55 AM 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 These images are for Reference purposes only and have not been reviewed by [facility] Radiology. There will be no report generated by a [facility] Radiologist. Narrative [facility] - 01/19/2022 10:55 AM 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 EXAMINATION: Images For Reference Purposes Only us Sweta Conteh MD PhD IMG MAMMO PROCEDURES Final Result [facility] documented in this encounter Visit Diagnoses Not on filedocumented in this encounter Care Teams Sql Ssis Developer Relationship Specialty Start Date End Date Krishna Medina MD [address] [place] [address] PCP - General 10/15/16 03/16/19 documented as of this encounter
--- OUTSIDE RECORDS SUMMARY | 2017-07-22 23:00 | XMS_ITS | Encounter Summary ---
Author Organization [facility] Healthcare Address [address] [place] [address] Care Team Providers Care Financial Representative Name Role Phone Krishna Medina MD Primary Care Provider [phone] Reason for Visit * Diagnostic Imaging (Routine) - Closed Specialty Diagnoses / Procedures Referred By Contac t Referred To Contact Procedures Breast Imaging Screening Outside Reference Aft, Sweta Gleason MD PhD [address] [place] [address] Phone: tel: fax: Referral ID Status Reason Start Date Expiration Date Visits Re quested Visits Authorized [id number] Closed 01/19/2022 02/18/2023 1 1 Encounter Details Date Type Department Care Team (Late st Contact Info) Description 07/23/2017 Hospital Encounter [facility] Radiology [facility] [address] [place], [place] [phone] Social History Tobacco Use Types Packs/Day Years [...] on file Legal 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:42 PM COMMERCIAL SALES SPECIALIST Gender Identity Not on file Sexual Orientation [...] Ambulatory Aids 0 11/10/2021 10:32 AM WEST Droa Costello RN Intravenous Therapy/Heparin/Saline Lock 20 11/10/2021 10:32 AM Kenyatat Groves RN Gait/Transferring 0 11/10/2021 10:32 AM [...] Interventions Applied Yes 09/06/2019 9:10 AM Breana Matais RN * AUDIT-C Score Answer Date of [...] CDT) Impressions [facility] - 01/19/2022 10:55 AM COMMERCIAL SALES SPECIALIST These images are for Reference purposes only and have not been reviewed by [facility] Radiology. There will be no report generated by a [facility] Radiologist. Narrative [facility] - 01/19/2022 10:55 AM COMMERCIAL SALES SPECIALIST EXAMINATION: Images For Reference Purposes Only us Sweta Conteh MD PhD IMG MAMMO PROCEDURES Final Result [facility] documented in this encounter Visit Diagnoses Not on filedocumented in this encounter Care Teams Financial Representative Relationship Specialty Start Date End Date Krishna Medina MD [address] [place] [address] PCP - General 10/15/16 03/16/19 documented as of this encounter
--- OUTSIDE RECORDS SUMMARY | 2018-07-22 05:28 | XMS_ITS | Continuity of Care Document ---
Author Organization [facility] Address [address] [place] [address] Phone Care Team Providers Care Supervisor Fabrication Name Role Phone Jerman Ramos MD Unavailable Unavailable Allergies, Adverse Reactions, Alerts Substance Reaction Status Criticality codeine GI problems Active No Information Medications Medication Instructions Dosage Effective Dates (start - stop) Status Comments fexofenadine 180 mg Tab take 1 tablet (1 80MG) by oral route every day 180 MG - Active fluticasone 50 mcg/actuation Nasal [place], Susp spray 2 spray (100MCG) by intranasal route every day in each nostril 100 MCG - Active amlodipine 10 mg Tab take 1 tablet (10MG ) by oral route every day 10 MG - Active spironolactone 25 mg Tab take 1 tablet (25MG) by oral route every day 25 MG - Active nortriptyline 10 mg Cap 20 MG - Active Creon 12,000-38,000-60,000 unit Capsule, delayed release - Active Aspirin Low Dose 81 mg Tab, Delayed Release take 1 tablet (81MG) by oral route every day 81 MG - Active Tranxene T-Tab 3.75 mg Tab take 1 tablet (3.75MG) by oral route 2 times every day - Active Carafate 100 mg/mL Oral Susp - Active Advance Directives Directive Yes / No Effective Date File Name No Information Encounters Encounter Description Practice Location Reason(s) For Visit Diagnoses Date Provider Providers Copied on Encounter [facility], [address], [place], [place], [id number] , [place] tel: [phone] [facility] No Information 9 Richard Stoll. [address], [address], [place], [address], [place]. tel: [phone] [facility], [address], [place], [place], [id number] , [place] tel: [phone] [facility] Pancreatic cyst Apr-2 9 Richard Stoll. [address], [address], [place], [address], [place]. tel: [phone] [facility], [address], [place], [place], [id number] , [place] tel: [phone] [facility] due to drugs and medicines taken internallyAllergic rhinitis, cause unspecified Apr-3 0 2 Berry Calderon. [address] [place] [address], [address], [id number] , . tel: [phone] Referring Provider: [employer] [facility], [address] [place] [address], [address] . tel:[phone] Family History Family Member Type Diagnosis Age At Onset Sister Problem (finding) Allergies Payers Payer name Insurance type Covered libertarian ID Authoriza tion(s) No Information Social History Type Description Quantity Date Captured Comments Sex Female Smoking Status No Information Chief Complaint And Reason For Visit No Information Reason For Referral Reason For Referral No Information History Of Present Illness Encounter Date Complaint History Of Prese nt Illness No Information Functional Status Date Functional Assessmen t No Information Instructions Date Instruction Additional Infor mation No Information Assessments Type Assessment Date No Information Patient Care Teams Name Effective Dates (start - stop) Status Members No Information
--- OUTSIDE RECORDS SUMMARY | 2018-07-22 05:28 | XMS_ITS | Continuity of Care Document ---
Author Organization [facility] Address [address] [place] [address] Phone Care Team Providers Care Radar Operator Name Role Phone Jerman Ramos MD Unavailable Unavailable Allergies, Adverse Reactions, Alerts Substance Reaction Status Criticality codeine GI problems Active No Information Medications Medication Instructions Dosage Effective Dates (start - stop) Status Comments fexofenadine 180 mg Tab take 1 tablet (1 80MG) by oral route every day 180 MG - Active fluticasone 50 mcg/actuation Nasal [place], Susp spray 2 spray (100MCG) by intranasal [...] Diagnoses Date Provider Providers Copied on Encounter [facility], [address], [place], [place], [id number] , [place] tel: [phone] [facility] No Information 9 Richard Stoll. [address], [address], [place], [address], [place]. tel: [phone] [employer] [address], [place], [place], [id number] , [place] tel: [phone] [facility] Pancreatic cyst Apr-2 9 Richard Stoll. [address], [address], [place], [address], [place]. tel: [phone] [employer] [address], [place], [place], [id number] , [place] tel: [phone] [facility] D[facility] due to drugs and medicines taken internallyAllergic rhinitis, cause unspecified Apr-3 0 2 Berry Calderon. [address] [place] [address], [address], [id number] , . tel: [phone] Referring Provider: [employer] Smart, [address] [place] [address], [address] . tel:[phone] Family History Family Member Type Diagnosis Age At Onset Sister Problem (finding) Allergies Payers Payer name Insurance type Covered republican ID Authoriza tion(s) No Information Social History [...]
--- OUTSIDE RECORDS SUMMARY | 2018-08-25 23:00 | XMS_ITS | Encounter Summary ---
Author Organization [facility] Healthcare Address [address] [place] [address] Care Team Providers Care Music Publisher Name Role Phone Krishna Medina MD Primary Care Provider [phone] Reason for Visit * Diagnostic Imaging (Routine) - Closed Specialty Diagnoses / Procedures Referred By Contac t Referred To Contact Procedures Breast Imaging Screening Outside Reference Aft, Sweta Gleason MD PhD [address] [place] [address] Phone: tel: fax: Referral ID Status Reason Start Date Expiration Date Visits Re quested Visits Authorized [id number] Closed 01/19/2022 02/18/2023 1 1 Encounter Details Date Type Department Care Team (Late st Contact Info) Description 08/26/2018 Hospital Encounter [facility] [address] [place], [place] [phone] Social History Tobacco Use Types Packs/Day Years [...] on file Legal 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:42 PM SENIOR INFORMATION SECURITY ENGINEER Gender Identity Not on file Sexual Orientation [...] BREAST IMAGING MG SCREENING OUTSIDE REFERENCE Routine 08/26/2018 12:00 AM CDT documented in this encounter Results * Breast Imaging Screening Outside Reference (08/26/2018 12:00 AM CDT) Impressions [facility] - 01/19/2022 11:04 AM SENIOR INFORMATION SECURITY ENGINEER These images are for Reference purposes only and have not been reviewed by [facility] Radiology. There will be no report generated by a [facility] Radiologist. Narrative [facility] - 01/19/2022 11:04 AM SENIOR INFORMATION SECURITY ENGINEER EXAMINATION: Images For Reference Purposes Only us Sweta Conteh MD PhD IMG MAMMO PROCEDURES Final Result [facility] documented in this encounter Visit Diagnoses Not on filedocumented in this encounter Care Teams Music Publisher Relationship Specialty Start Date End Date Krishna Medina MD [address] [place] [address] PCP - General 10/15/16 03/16/19 documented as of this encounter
--- OUTSIDE RECORDS SUMMARY | 2018-08-25 23:00 | XMS_ITS | Encounter Summary ---
Author Organization [facility] Healthcare Address [address] [place] [address] Care Team Providers Care Director Financial Systems Name Role Phone Krishna Medina MD Primary Care Provider [phone] Reason for Visit * Diagnostic Imaging (Routine) - Closed Specialty Diagnoses / Procedures Referred By Contac t Referred To Contact Procedures Breast Imaging Screening Outside Reference Aft, Sweta Gleason MD PhD [address] [place] [address] Phone: tel: fax: Referral ID Status Reason Start Date Expiration Date Visits Re quested Visits Authorized [id number] Closed 01/19/2022 02/18/2023 1 1 Encounter Details Date Type Department Care Team (Late st Contact Info) Description 08/26/2018 Hospital Encounter [facility] [address] [place], [place] [phone] Social History Tobacco Use Types Packs/Day Years [...] on file Legal 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:42 PM PATIENT RELATIONS SPECIALIST Gender Identity Not on file Sexual [...] CDT) Impressions [facility] - 01/19/2022 11:04 AM PATIENT RELATIONS SPECIALIST These images are for Reference purposes only and have not been reviewed by [facility] Radiology. There will be no report generated by a [facility] Radiologist. Narrative [facility] - 01/19/2022 11:04 AM PATIENT RELATIONS SPECIALIST EXAMINATION: Images For Reference Purposes Only us Sweta Conteh MD PhD IMG MAMMO PROCEDURES Final Result [facility] documented in this encounter Visit Diagnoses Not on filedocumented in this encounter Care Teams Director Financial Systems Relationship Specialty Start Date End Date Krishna Medina MD [address] [place] [address] PCP - General 10/15/16 03/16/19 documented as of this encounter
--- OUTSIDE RECORDS SUMMARY | 2019-09-24 23:00 | XMS_ITS | Encounter Summary ---
Author Organization [facility] Healthcare Address [address] [place] [address] Care Team Providers Care Licensed Insurance Sales Agent Name Role Phone Krishna Medina MD Primary Care Provider [phone] Krishna Medina MD Unavailable [phone] Reason for Visit * Diagnostic Imaging (Routine) - Closed Specialty Diagnoses / Procedures Referred By Contac t Referred To Contact Procedures Breast Imaging Screening Outside Reference Aft, Sweta Gleason MD PhD [address] [place] [id number] Phone: tel: fax: Referral ID Status Reason Start Date Expiration Date Visits Re quested Visits Authorized [id number] Closed 01/19/2022 02/18/2023 1 1 Encounter Details Date Type Department Care Team (Late st Contact Info) Description 09/25/2019 Hospital Encounter [facility] Radiology [facility] [address] [place] [id number] Social History Tobacco Use Types Packs/Day Years [...] on file Legal 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:42 PM BUCKLE STRAP DRUM OPERATOR Gender Identity Not on file Sexual Orientation Not on file documented as of this encounter Functional Status * Question Answer Date of Assessment Author MAP (mmHg) 82 11/10/2021 11:34 AM CDT Loraine King RN * Sheth Fall Risk Question Answer Date of Assessment Author Secondary Diagnosis 0 11/10/2021 10:32 AM Dora Maher RN Ambulatory Aids 0 11/10/2021 10:32 AM CDT Dora Costello RN Intravenous Therapy/Heparin/Saline Lock 20 11/10/2021 10:32 AM CDT Kenyatta Irizarry RN Gait/Transferring 0 11/10/2021 10:32 AM Dora Groves RN Mental Status 0 11/10/2021 10:32 AM CDT Dora Garcias RN Sheth Fall Risk Score (Score >= 45 places fall precaution order) 20 11/10/2021 10:32 AM Dora Groves RN Prior Fall Event (Autopopulated from EMR) None found 11/10/2021 10:32 AM Dora Groves RN * AUDIT-C Score Answer Date of [...] BREAST IMAGING MG SCREENING OUTSIDE REFERENCE Routine 09/25/2019 12:00 AM CDT documented in this encounter Results * Breast Imaging Screening Outside Reference (09/25/2019 12:00 AM CDT) Impressions [facility] - 01/19/2022 11:03 AM BUCKLE STRAP DRUM OPERATOR These images are for Reference purposes only and have not been reviewed by [facility] Radiology. There will be no report generated by a [facility] Radiologist. Narrative [facility] - 01/19/2022 11:03 AM BUCKLE STRAP DRUM OPERATOR EXAMINATION: Images For Reference Purposes Only us Sweta Conteh MD PhD IMG MAMMO PROCEDURES Final Result [facility] documented in this encounter Visit Diagnoses Not on filedocumented in this encounter Care Teams Licensed Insurance Sales Agent Relationship Specialty Start Date End Date Krishna Medina MD [address] [address] PCP - General 03/17/19 04/08/21 Krishna Medina MD [address] [address] 03/17/19 documented as of this encounter
--- OUTSIDE RECORDS SUMMARY | 2019-09-24 23:00 | XMS_ITS | Encounter Summary ---
Author Organization [facility] Healthcare Address [address] [place] [address] Care Team Providers Care Gear Design Engineer Name Role Phone Krishna Medina MD Primary Care Provider [phone] Krishna Medina MD Unavailable [phone] Reason for Visit * Diagnostic Imaging (Routine) - Closed Specialty Diagnoses / Procedures Referred By Contac t Referred To Contact Procedures Breast Imaging Screening Outside Reference Aft, Sweta Gleason MD PhD [address] [place] [address] Phone: tel: fax: Referral ID Status Reason Start Date Expiration Date Visits Re quested Visits Authorized [id number] Closed 01/19/2022 02/18/2023 1 1 Encounter Details Date Type Department Care Team (Late st Contact Info) Description 09/25/2019 Hospital Encounter [facility] Radiology [facility] [address] [place] [phone] Social History Tobacco Use Types Packs/Day Years [...] on file Legal 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:42 PM CUSTOMS EXAMINER Gender Identity Not on file Sexual Orientation [...] CDT) Impressions [facility] - 01/19/2022 11:03 AM CUSTOMS EXAMINER These images are for Reference purposes only and have not been reviewed by [facility] Radiology. There will be no report generated by a [facility] Radiologist. Narrative [facility] - 01/19/2022 11:03 AM CUSTOMS EXAMINER EXAMINATION: Images For Reference Purposes Only us Sweta Conteh MD PhD IMG MAMMO PROCEDURES Final Result [facility] documented in this encounter Visit Diagnoses Not on filedocumented in this encounter Care Teams Gear Design Engineer Relationship Specialty Start Date End Date Krishna Medina MD [address] [address] PCP - General 03/17/19 04/08/21 Krishna Medina MD [address] [address] 03/17/19 documented as of this encounter
--- NOTE | ~2025-01-21 | CT_ITS ---
CT HEAD NON-CONTRAST Clinical History: lightheadedness, HTN Comparison: 09/28/2024 Technique: Unenhanced axial images skull base to vertex Coronal, sagittal reformats CT images acquired with automatic exposure control for dose reduction DLP: 605 mGy-cm Findings: Chronic white matter microvascular ischemic changes. Sulci, ventricles: Unremarkable. No intracerebral hemorrhage. No evidence acute territorial infarct. No mass effect, midline shift. Bony calvarium intact. Visualized paranasal sinuses: Clear. Mastoid air cells: Clear. IMPRESSION: 1. No acute intracranial findings. Reviewed, dictated and finalized at location R. [facility]
--- OUTSIDE RECORDS SUMMARY | 2025-01-21 21:30 | XMS_ITS | Encounter Summary ---
Author Organization [facility] Address [address] [facility] Attn: Epic Prelude ADT [place] [phone] Care Team Providers Care Retail Loan Originator Name Role Phone Abrahan Mcgee MD Primary [...] on file Legal Sex Female 3:33 AM DRIP BOX TENDER Gender Identity Not on file Sexual Orientation Not on file documented as of this encounter Plan of Treatment Upcoming Encounters Date Type Department Care Team (Late st Contact Info) Description 04/04/2025 11:00 AM DRIP BOX TENDER Office Visit [facility] Oncology and Hematology - [place] [address] [place] [address] [address] [place] [address] [place] [address] [place] [address] [address] [place] [address] documented as of this encounter Visit Diagnoses Not on filedocumented in this encounter Care Teams Retail Loan Originator Relationship Specialty Start Date End Date Abrahan Mcgee MD [address] [place] [address] PCP - General Family Practice 04/03/24 documented as of this encounter
--- OUTSIDE RECORDS SUMMARY | 2025-01-21 21:30 | XMS_ITS | Encounter Summary ---
Author Organization [facility] Address [address] [facility] Attn: Epic Prelude ADT [place] [phone] Care Team Providers Care Stakes Player Name Role Phone Abrahan Mcgee MD Primary [...] file Legal Sex Female 3:33 AM EVENT COORDINATOR MARKETING AND SALES Gender Identity Not on file Sexual Orientation Not on file documented as of this encounter Plan of Treatment Upcoming Encounters Date Type Department Care Team (Late st Contact Info) Description 04/04/2025 11:00 AM EVENT COORDINATOR MARKETING AND SALES Office Visit [facility] Oncology and Hematology - [place] [address] [place] [address] [address] [place] [address] [place] [address] [place] [address] [address] [place] [address] documented as of this encounter Visit Diagnoses Not on filedocumented in this encounter Care Teams Stakes Player Relationship Specialty Start Date End Date Abrahan Mcgee MD [address] [place] [address] PCP - General Family Practice 04/03/24 documented as of this encounter
--- OUTSIDE RECORDS SUMMARY | 2025-01-21 21:30 | XMS_ITS | Encounter Summary ---
Author Organization [facility] Address [address] [facility] Attn: Epic Prelude ADT [place] [phone] Care Team Providers Care Application Security Architect Name Role Phone Abrahan Mcgee MD Primary Care Provider [phone] Encounter Details Date Type Department Care Team (Late st Contact Info) Description 05/03/1990 Outpatient Historical Andre Ernst MD NO ADDRESS ON FILE Social History Tobacco Use Types Packs/Day Years Used Date Smoking Tobacco: Never Assessed Comments Unknown Sex and Gender Information Value Date Recorded Sex Assigned at Not on file Legal Sex Female 3:33 AM STRIKE WARFARE/MISSILE SYSTEMS OFFICER Gender Identity Not on file Sexual Orientation Not on file documented as of this encounter Plan of Treatment Upcoming Encounters Date Type Department Care Team (Late st Contact Info) Description 04/04/2025 11:00 AM STRIKE WARFARE/MISSILE SYSTEMS OFFICER Office Visit [facility] Oncology and Hematology - [place] [address] [place] [address] [address] [place] [address] [place] [address] [place] [address] [address] [place] [address] documented as of this encounter Visit Diagnoses Not on filedocumented in this encounter Care Teams Application Security Architect Relationship Specialty Start Date End Date Abrahan Mcgee MD [address] [place] [address] PCP - General Family Practice 04/03/24 documented as of this encounter
--- OUTSIDE RECORDS SUMMARY | 2025-01-21 21:30 | XMS_ITS | Encounter Summary ---
Author Organization [facility] Health Address [address] [facility] [place] [address] Care Team Providers Care Manager Switch Name Role Phone Abrahan Mcgee MD Primary Care Provider [phone] Encounter Details Date Type Department Care Team (Late st Contact Info) Description 10/26/2024 Lab Requisition [facility] - DermPath Lab [address] [place] [address] Abrahan Mcgee MD [address] [place] [address] Social History Tobacco Use Types Packs/Day Years Used Date Smoking Tobacco: Never Assessed Comments Unknown Sex and Gender Information Value Date Recorded Sex Assigned at Not on file Legal Sex Female 6:23 PM CASTING FINISHER Gender Identity Not on file Sexual Orientation Not on file documented as of this encounter Plan of Treatment Not on file documented as of this encounter Procedures Procedure Name Priority Date/Time Associated Diagnosis Comments DERMATOPATHOLOGY Routine 10/25/2024 12:0 0 AM CDT documented in this encounter Results * DERMATOPATHOLOGY (10/25/2024 12:00 AM CDT) Case Report Dermatopathology Report Case: [id number] Authorizing Provider: Abrahan Mcgee MD Collected: 10/25/2024 12:00 AM Ordering Location: [facility] - Received: 10/26/2024 02:31 PM DermPath Lab Pathologist: Marshal Mckeon MD Specimens: A) - Skin, top of scalp B) - Skin, left scalp 12:22 PM [facility] DERMATOPATHOLOGY LABORATORY Final Diagnosis Specimen A. SKIN, top of scalp: PIGMENTED SEBORRHEIC KERATOSIS (L82.1) PRESENT AT MARGIN Specimen B. 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 The specimen consists of a shave biopsy measuring 2 pieces 6x4x1,7x4x1 mm. Jar 0. Specimen B: Received is one formalin filled container labeled with the patient's name and designated left scalp. The specimen consists of a shave biopsy in multiple fragments measuring 6x5x1 mm in aggregate. Jar 0+. 12:22 PM [facility] DERMATOPATHOLOGY LABORATORY Microscopic Description Specimen A. SKIN, top of scalp: Sections show an acanthotic lesion composed of relatively uniform keratinocytes. There is hyperkeratosis and pseudo horn cysts. Pigment is present in the keratinocytes composing this tumor. This lesion is present at the margin of the specimen. Specimen B. SKIN, left scalp: The specimen consisted mostly of stratum corneum with retained nuclei. There is minimal cellular epidermis present for evaluation. COMMENT: This type of stratum corneum is frequently seen overlying squamous proliferations such as actinic keratoses or squamous cell carcinomas. 12:22 PM [facility] DERMATOPATHOLOGY LABORATORY Disclaimer An external and internal positive and negative controls are appropriate for the histochemical, immunohistochemical and immunofluorescence stain(s) in this case (if any), except where stated explicitly. The performance characteristics of the stain(s) cited in this report were developed and its performance characteristic determined by the Dermatopathology Laboratory at [facility], directed by Dr. Troy Mckeon. These tests need not be, and therefore are not, approved by the [place] Food and Drug Administration. The tests are used for clinical purposes. Billing Codes Specimen Charges Stain Charges 09838 96371 1 1 12:22 PM T DERMATOPATHOLOGY LABORATORY Embedded Images 12:22 PM CDT DERMATOPATHOLOGY LABORATORY Pathology/Cytology TISSUE SPECIMEN FROM SKIN / Unknown 10/25/2024 10/26/2024 2:31 PM CDT Miscellaneous samples (specimen) TISSUE SPECIMEN FROM SKIN / Unknown 10/25/2024 10/26/2024 2:31 PM CDT Abrahan Mcgee MD LAB - PATHOLOGY/CYTOLOGY ORDE DRISS Final Result DERMATOPATHOLOGY LABORATORY [facility] - Department of Dermatology [facility] Specialized Medicine [address] [place] [address], [address] [phone] documented in this encounter Visit Diagnoses Not on filedocumented in this encounter Care Teams Manager Switch Relationship Specialty Start Date End Date Abrahan Mcgee MD [address] [place] [address] PCP - General 07/23/09 documented as of this encounter
--- OUTSIDE RECORDS SUMMARY | 2025-01-21 21:30 | XMS_ITS | Encounter Summary ---
Author Organization [facility] Address [address] [facility] Attn: Epic Prelude ADT [place] [address] Care Team Providers Care Mainframe Developer Name Role Phone Abrahan Mcgee MD Primary Care Provider [phone] Encounter Details Date Type Department Care Team (Late st Contact Info) Description 05/19/1993 Outpatient Historical Andre Ernst MD NO ADDRESS ON FILE Social History Tobacco Use Types Packs/Day Years Used Date Smoking Tobacco: Never Assessed Comments Unknown Sex and Gender Information Value Date Recorded Sex Assigned at Not on file Legal Sex Female 3:33 AM UPPER CASER Gender Identity Not on file Sexual Orientation Not on file documented as of this encounter Plan of Treatment Upcoming Encounters Date Type Department Care Team (Late st Contact Info) Description 04/04/2025 11:00 AM UPPER CASER Office Visit [facility] Oncology and Hematology - [place] [address] [place] [address] [address] [place] [address] [place] [address] [place] [address] [address] [place] [address] documented as of this encounter Visit Diagnoses Not on filedocumented in this encounter Care Teams Mainframe Developer Relationship Specialty Start Date End Date Abrahan Mcgee MD [address] [place] [address] PCP - General Family Practice 04/03/24 documented as of this encounter
--- OUTSIDE RECORDS SUMMARY | 2025-01-21 21:30 | XMS_ITS | Clinical Summary ---
Author Organization [facility] Address [address] [place] [address] Phone Care Team Providers Care Air Support Control Officer Name Role Phone Abrahan Mcgee MD Primary Care Provider [phone] Allergies Active Allergy Reactions Criticality Noted Date [...] Active fluticasone propionate (FLONASE) 50 mcg/spray [place], Suspension nasal inhaler Administer 2 Sprays in [...] Encounters Date Type Department Care Team Description 12/27/2024 External Device Data STL ABSTRACTION Provider, Abstract 12/26/2024 External Device Data ST[facility] ABSTRACTION Provider, Abstract 12/19/2024 External Device Data ST[facility] ABSTRACTION Provider, Abstract 10/31/2024 External Device Data ST[facility] ABSTRACTION Provider, [...] on file Legal Sex Female 3:33 AM HRBP Gender Identity Not on file Sexual Orientation [...] st Contact Info) Description 04/04/2025 11:00 AM HRBP Office Visit [facility] Oncology and Hematology - [place] [address] [facility] [address] [place] [address] Prince Mir MD [address] [facility] [address] [place] [address] Health Maintenance Due Date Last Done Comments DTAP/TDAP/TD VACCINES (1 - Tdap) 10/12/1954 ZOSTER VACCINE (1 of 2) 10/12/1985 OSTEOPOROSIS SCREENING 10/12/2000 RSV VACCINE (60+ or ) (1 - 1-dose 75+ series) 10/12/2010 INFLUENZA VACCINE (#1) 2024 01/20/2019, 2013 PNEUMOCOCCAL VACCINE 50+ YEARS Completed 12/16/2018 , 10/10/2014 Insurance AETNA [facility] Address: [facility] [id number] [place] [phone] AETNA PPO MCR Care Teams Air Support Control Officer Relationship Specialty Start Date End Date Abrahan Mcgee MD [address] [place] [address] PCP - General Family Practice 04/03/24
--- OUTSIDE RECORDS SUMMARY | 2025-01-21 21:30 | XMS_ITS | Encounter Summary ---
Author Organization [facility] Address [address] [place] [address] Phone Care Team Providers Care Web Design Specialist Name Role Phone Krishna Medina MD Unavailable [phone] Luigi Nicole Primary Care Provider Lina Yates NP Unavailable [phone] Yogesh Corbett DO Primary Care Provider [phone] Abrahan Mcgee MD Primary Care Provider [phone] Encounter Details Date Type Department Care Team (Late st Contact Info) Description 02/05/2022 Telephone [facility] Surgery [facility] Advanced [facility] 5th [place] [address] [place] [address] Akila Toussaint Social History Tobacco [...] on file Legal 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:42 PM LINE ASSIGNER Gender Identity Not on file Sexual Orientation Not on file documented as of this encounter Plan of Treatment Not on file documented as of this encounter Visit Diagnoses Not on filedocumented in this encounter Care Teams Web Design Specialist Relationship Specialty Start Date End Date Luigi Nicole PA [address] [address] PCP - General Physician Aircraft Maintenance Instructor 04/09/21 12/01/23 Yogesh Corbett DO [address] [place] [address] PCP - General Internal Medicine 12/02/23 06/05/24 Abrahan Mcgee MD [address] [place] [address] PCP - General Family Medicine 06/06/24 Krishna Medina MD [address] [address] 03/17/19 Lina Yates NP [address] [place] [address] Nurse Practitioner 11/12/22 documented as of this encounter
--- OUTSIDE RECORDS SUMMARY | 2025-01-21 21:30 | XMS_ITS | Clinical Summary ---
Author Organization [facility] Address [address] [place] [address] Care Team Providers Care Welfare Investigator Name Role Phone Abrahan Mcgee MD Primary Care Provider [phone] Source Comments [facility],non-owned Affiliates and Associated Physician Practices is amultiple site organization consisting of ambulatory clinics and hospital sitesin [place], [place], [place] and [place]. This disclosure is being madepursuant to the Care Everywhere program and may not contain all informatio navailable regarding this patient. Last updated 17.[facility] Encounters Date Type Department Care Team Description 10/26/2024 Lab Requisition [facility] - DermPath Lab [address] [place] [address] Abrahan Mcgee MD from Last 3 Months Social History Tobacco Use Types Packs/Day Years Used Date Smoking Tobacco: Never Assessed Comments Unknown Sex and Gender Information Value Date Recorded Sex Assigned at Not on file Legal Sex Female 6:23 PM PRE K TEACHER Gender Identity Not on file Sexual Orientation Not on file Plan of Treatment Health Maintenance Due Date Last Done Comments BONE DENSITY TESTING 1935 DTAP/TDAP/TD VACCINES (1 - Tdap) 10/12/1954 PNEUMOCOCCAL VACCINE 50+ (1 of 1 - PCV) 10/12/1985 ZOSTER VACCINE (1 of 2) 10/12/1985 Respiratory Syncytial Virus (RSV) Vaccine Pt: or over 60 yrs (1 - 1-dose 75+ series) 10/12/2010 DEPRESSION SCREENING 03/01/2024 MEDICARE AWV CALENDAR YEAR 2024 COVID-19 VACCINE ( - 2024-2 6 season) 2024 INFLUENZA VACCINE (#1) 2024 HEPATITIS B [...] on patient's age to complete this topic Procedures Procedure Name Priority Date/Time Associated Diagnosis Comments DERMATOPATHOLOGY Routine 10/25/2024 12:0 0 AM CDT from Last 3 Months Results * DERMATOPATHOLOGY (10/25/2024 12:00 AM CDT) Case Report Dermatopathology Report Case: [id number] Authorizing Provider: Abrahan Mcgee MD Collected: 10/25/2024 12:00 AM Ordering Location: [facility] - Received: 10/26/2024 02:31 PM DermPath Lab Pathologist: Marshal Mckeon MD Specimens: A) - Skin, top of scalp B) - Skin, left scalp 12:22 PM CDT DERMATOPATHOLOGY LABORATORY Final Diagnosis Specimen A. SKIN, top of scalp: PIGMENTED SEBORRHEIC KERATOSIS (L82.1) PRESENT AT MARGIN Specimen B. 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 Jar 0+. 12:22 PM CDT DERMATOPATHOLOGY LABORATORY Microscopic Description Specimen A. [...] keratoses or squamous cell carcinomas. 12:22 PM CDT DERMATOPATHOLOGY LABORATORY Disclaimer An external and internal positive and negative controls are appropriate for the histochemical, immunohistochemical and immunofluorescence stain(s) in this case (if any), except where stated explicitly. The performance characteristics of the stain(s) cited in this report were developed and its performance characteristic determined by the Dermatopathology Laboratory at [facility], directed by Dr. Troy Mckeon. These tests need not be, and therefore are not, approved by the [place] Food and Drug Administration. The tests are used for clinical purposes. Billing Codes Specimen Charges Stain Charges 08303 62120 1 1 12:22 PM CDT DERMATOPATHOLOGY LABORATORY Embedded Images 12:22 PM CDT DERMATOPATHOLOGY LABORATORY Pathology/Cytology TISSUE SPECIMEN FROM SKIN / Unknown 10/25/2024 10/26/2024 2:31 PM CDT Miscellaneous samples (specimen) TISSUE SPECIMEN FROM SKIN / Unknown 10/25/2024 10/26/2024 2:31 PM CDT us Abrahan Shazia Mcgee MD LAB - PATHOLOGY/CYTOLOGY GARRISON NAQVI Final Result DERMATOPATHOLOGY LABORATORY [facility] - Department of Dermatology [facility] [address] [place] [address], [address] [place] [address], [facility] [phone] from Last 3 Months Insurance [facility] MANAGED MEDICARE ADV AETNA MEDICARE ADV AETNA MEDICARE ADV SELF PAY NO INSURANCE Member Subscriber Plan / Payer (Ef fective for All Dates) Name:Marshal Sanders Member ID:Not on file Relation to Subscriber:Not on file Name:Masrhal SANDERS Subscriber ID:Not on file Address: [address] [place] [address] Payer ID:Not on file Group ID:Not on file Type:Self Pay Address: [place], [place] AETNA MEDICARE ADV SELF PAY NO INSURANCE Member Subscriber Plan / Payer (Ef fective for All Dates) Name:Marshal Sanders Member ID:Not on file Relation to Subscriber:Not on file Name:Marshal SANDERS Subscriber ID:Not on file Address: [address] [place] [address] Payer ID:Not on file Group ID:Not on file Type:Self Pay Address: [place], [place] * Guarantor: Marshal SANDERS Account Type Relation to Patient Date of Phone Billing Address Personal/Family Spouse Care Teams Welfare Investigator Relationship Specialty Start Date End Date Abrahan Mcgee MD [address] [place] [address] PCP - General 07/23/09
--- OUTSIDE RECORDS SUMMARY | 2025-01-21 21:30 | XMS_ITS | Encounter Summary ---
Author Organization [facility] Health Address [address] [facility] [place] [address] Care Team Providers Care Manager Heart Failure Name Role Phone Abrahan Mcgee MD Primary Care Provider [phone] Encounter Details Date Type Department Care Team (Late st Contact Info) Description 08/13/2021 Lab Requisition [facility] DermPath Lab [address] [place] [address] Jose G Llamas MD [address] [place] [address] Social History Tobacco Use Types Packs/Day Years Used Date Smoking Tobacco: Never Assessed Comments Unknown Sex and Gender Information Value Date Recorded Sex Assigned at Not on file Legal Sex Female 6:23 PM LINOTYPER Gender Identity Not on file Sexual Orientation Not on file documented as of this encounter Plan of Treatment Not on file documented as of this encounter Procedures Procedure Name Priority Date/Time Associated Diagnosis Comments DERMATOPATHOLOGY Routine 08/12/2021 12:0 0 AM CDT documented in this encounter Results * DERMATOPATHOLOGY (08/12/2021 12:00 AM CDT) Case Report Dermatopathology Report Case: [id number] Authorizing Provider: Jose G Llamas MD Collected: 08/12/2021 12:00 AM Ordering Location: [facility] DermPath Lab Received: 08/13/2021 10:45 AM Pathologist: [...] specimen consists of a shave biopsy measuring [id number]. Jar 0. 2 10:59 AM CDT DERMATOPATHOLOGY [...] characteristic determined by the Dermatopathology Laboratory at [facility], directed by Dr. Troy Mckeon. These tests need not be, and therefore are not, approved by the [place] Food and Drug Administration. The tests are used for clinical purposes. Billing Codes Specimen Charges Stain Charges [id number] 1 2 10:59 AM CDT DERMATOPATHOLOGY LABORATORY Embedded Images 2 10:59 AM CDT DERMATOPATHOLOGY LABORATORY Pathology/Cytolog y TISSUE SPECIMEN FROM SKIN / Unknown 08/12/2021 08/13/2021 10:45 AM CDT us Jose G Llamas MD LAB - PATHOLOGY/CYTOLOGY ORD ERABLES Final Result DERMATOPATHOLOGY LABORATORY [facility] - Department of Dermatology [address], [address] [phone] documented in this encounter Visit Diagnoses Not on filedocumented in this encounter Care Teams Manager Heart Failure Relationship Specialty Start Date End Date Abrahan Mcgee MD [address] [place] [address] PCP - General 07/23/09 documented as of this encounter
--- OUTSIDE RECORDS SUMMARY | 2025-01-21 21:30 | XMS_ITS | Encounter Summary ---
Author Organization [facility] Address [address] [facility] Attn: Epic Prelude ADT [place] [address] Care Team Providers Care Sign Builder Supervisor Name Role Phone Abrahan Mcgee MD Primary Care Provider [phone] Encounter Details Date Type Department Care Team (Late st Contact Info) Description 07/31/1991 Outpatient Historical Andre Ernst MD NO ADDRESS ON FILE Social History Tobacco Use Types Packs/Day Years Used Date Smoking Tobacco: Never Assessed Comments Unknown Sex and Gender Information Value Date Recorded Sex Assigned at Not on file Legal Sex Female 3:33 AM CHIP MIXER Gender Identity Not on file Sexual Orientation Not on file documented as of this encounter Plan of Treatment Upcoming Encounters Date Type Department Care Team (Late st Contact Info) Description 04/04/2025 11:00 AM CHIP MIXER Office Visit [facility] Oncology and Hematology - [place] [address] [place] [address] [address] [place] [address] [place] [address] [place] [address] [address] [place] [address] documented as of this encounter Visit Diagnoses Not on filedocumented in this encounter Care Teams Sign Builder Supervisor Relationship Specialty Start Date End Date Abrahan Mcgee MD [address] [place] [address] PCP - General Family Practice 04/03/24 documented as of this encounter
--- OUTSIDE RECORDS SUMMARY | 2025-01-21 21:30 | XMS_ITS | Encounter Summary ---
Author Organization [facility] Address [address] [facility] Attn: Epic Prelude ADT [place] [address] Care Team Providers Care Rental Sales Associate Name Role Phone Abrahan Mcgee MD Primary Care Provider [phone] Encounter Details Date Type Department Care Team (Late st Contact Info) Description 05/10/1990 Outpatient Historical Andre Ernst MD NO ADDRESS ON FILE Social History Tobacco Use Types Packs/Day Years Used Date Smoking Tobacco: Never Assessed Comments Unknown Sex and Gender Information Value Date Recorded Sex Assigned at Not on file Legal Sex Female 3:33 AM BOAT MECHANIC Gender Identity Not on file Sexual Orientation Not on file documented as of this encounter Plan of Treatment Upcoming Encounters Date Type Department Care Team (Late st Contact Info) Description 04/04/2025 11:00 AM BOAT MECHANIC Office Visit [facility] Oncology and Hematology - [place] [address] [place] [address] [address] [place] [address] [place] [address] [place] [address] [address] [place] [address] documented as of this encounter Visit Diagnoses Not on filedocumented in this encounter Care Teams Rental Sales Associate Relationship Specialty Start Date End Date Abrahan Mcgee MD [address] [place] [address] PCP - General Family Practice 04/03/24 documented as of this encounter
--- OUTSIDE RECORDS SUMMARY | 2025-01-21 21:30 | XMS_ITS | Patient Health Record ---
Author Organization [facility] Address [address] [facility] [facility] [address] [place] [address] Care Team Providers Care Cap Jewel Plate Assembler Name Role Phone Luigi Peng Primary Care Provider Dhara MURCIA PIPE CLEANER, MICHAELLE Unavailable [phone] Allergies Allergen (clinical drug ingredient) Drug/Non [...] tablet Orally Twice a day Unknown Zenpep [id number] UNIT TAKE 2 CAPSULES BY MOUTH WITH [...] Problem Gastro-esophagea l reflux disease without esophagitis (491326448) Gastro-esophage al reflux disease without esophagitis (K21.9) Active confirmed Problem Constipation (69993503) Constipation, unspecified (K59.00) Active confirmed Problem Spasm of sphincter of Oddi (50342718) 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 Biliary stent left in place and removed 03/20/08 was noted resolution of biliary and pancreatic stenosis, morphologic changes of the pain duct stone noted. ERCP 01/30/08 ERCP with findi ng of [...] 2012 - no report available, reportedly normal Colonoscopy - Dr. Ha - re portedly 2007 and normal. Hx. of polyps in past.
--- OUTSIDE RECORDS SUMMARY | 2025-01-21 21:31 | XMS_ITS | Encounter Summary ---
Author Organization [facility] Address [address] [place] [address] Care Team Providers Care It Software Engineer Name Role Phone Abrahan Mcgee MD Primary Care Provider [phone] Encounter Details Date Type Department Care Team (Latest Contact Info) Description 03/06/2004 Outpatient Historical HIS [facility] Andre Vidal MD NO ADDRESS ON FILE HYPOPOTASSEMIA (Primary Dx) Social History Tobacco Use Types Packs/Day Years Used Date Smoking Tobacco: Never Assessed Comments Unknown Sex and Gender Information Value Date Recorded Sex Assigned at Not on file Legal Sex Female 3:33 AM FOUNDRY MELT SUPERVISOR Gender Identity Not on file Sexual Orientation Not on file documented as of this encounter Plan of Treatment Upcoming Encounters Date Type Department Care Team (Late st Contact Info) Description 04/04/2025 11:00 AM FOUNDRY MELT SUPERVISOR Office Visit [facility] Oncology and Hematology - [place] [address] [facility] [address] [place] [address] Prince Mir MD [address] [facility] [address] [place] [address] documented as of this encounter Procedures Procedure Name Priority Date/Time Associated Diagnosis Comments COMPREHENSIVE METABOLIC PANEL Routine 03/06/2004 11:12 AM FOUNDRY MELT SUPERVISOR documented in this encounter Results * (ABNORMAL) COMPREHENSIVE METABOLIC PANEL (03/06/2004 11:12 AM FOUNDRY MELT SUPERVISOR) GLUCOSE 95 65 - 109 mg/dL INTERFACE [...] by 2nd methodology. 03/06/2004 11:1 2 AM FOUNDRY MELT SUPERVISOR us Andre Ernst MD CHEMISTRY ORDERABLES Final Res ult INTERFACE SYSTEM Refer to clinic/hospital department documented in this encounter Visit Diagnoses Diagnosis Hypopotassemia- Primary documented in this encounter Care Teams It Software Engineer Relationship Specialty Start Date End Date Abrahan Mcgee MD [address] [place] [address] PCP - General Family Practice 04/03/24 documented as of this encounter
--- OUTSIDE RECORDS SUMMARY | 2025-01-21 21:31 | XMS_ITS | Encounter Summary ---
Author Organization [facility] Address [address] [facility] Attn: Epic Prelude ADT [place] [address] Care Team Providers Care Director Of Operations For Therapy Name Role Phone Abrahan Mcgee MD Primary Care Provider [phone] Encounter Details Date Type Department Care Team (Late st Contact Info) Description 08/03/1994 Outpatient Historical Andre Ernst MD NO ADDRESS ON FILE Social History Tobacco Use Types Packs/Day Years Used Date Smoking Tobacco: Never Assessed Comments Unknown Sex and Gender Information Value Date Recorded Sex Assigned at Not on file Legal Sex Female 3:33 AM CLERICAL OFFICE Gender Identity Not on file Sexual Orientation Not on file documented as of this encounter Plan of Treatment Upcoming Encounters Date Type Department Care Team (Late st Contact Info) Description 04/04/2025 11:00 AM CLERICAL OFFICE Office Visit [facility] Oncology and Hematology - [place] [address] [place] [address] [address] [place] [address] [place] [address] [place] [address] [address] [place] [address] documented as of this encounter Visit Diagnoses Not on filedocumented in this encounter Care Teams Director Of Operations For Therapy Relationship Specialty Start Date End Date Abrahan Mcgee MD [address] [place] [address] PCP - General Family Practice 04/03/24 documented as of this encounter
--- OUTSIDE RECORDS SUMMARY | 2025-01-21 21:31 | XMS_ITS | Encounter Summary ---
Author Organization [facility] Address [address] [place] [address] Care Team Providers Care Director Of Construction Name Role Phone Abrahan Mcgee MD Primary Care Provider [phone] Encounter Details Date Type Department Care Team (Latest Contact Info) Description 02/24/2002 Outpatient Historical HIS [facility] ЕКАТЕРИНА Ernst, Andre Guardado MD NO ADDRESS ON FILE CHRONIC SINUSITIS NOS (Primary Dx) Social History Tobacco Use Types Packs/Day Years Used Date Smoking Tobacco: Never Assessed Comments Unknown Sex and Gender Information Value Date Recorded Sex Assigned at Not on file Legal Sex Female 3:33 AM IMAGING SYSTEM ADMINISTRATOR Gender Identity Not on file Sexual Orientation Not on file documented as of this encounter Plan of Treatment Upcoming Encounters Date Type Department Care Team (Late st Contact Info) Description 04/04/2025 11:00 AM IMAGING SYSTEM ADMINISTRATOR Office Visit [facility] Oncology and Hematology - [place] [address] [facility] [address] [place] [address] [place] [address] [place] [address] [address] [place] [address] documented as of this encounter Visit Diagnoses Diagnosis Unspecified sinusitis (chronic)- Primary documented in this encounter Care Teams Director Of Construction Relationship Specialty Start Date End Date Abrahan Mcgee MD [address] [place] [address] PCP - General Family Practice 04/03/24 documented as of this encounter
--- OUTSIDE RECORDS SUMMARY | 2025-01-21 21:31 | XMS_ITS | Encounter Summary ---
Author Organization [facility] Address [address] [place] [address] Care Team Providers Care Waterproofing Supervisor Name Role Phone Abrahan Mcgee MD Primary Care Provider [phone] Encounter Details Date Type Department Care Team (Latest Contact Info) Description 10/17/2002 Outpatient Historical HIS [facility] ЕКАТРЕИНА Ernst, Andre Guardado MD NO ADDRESS ON FILE SOLITARY CYST OF BREAST (Primary Dx) Social History Tobacco Use Types Packs/Day Years Used Date Smoking Tobacco: Never Assessed Comments Unknown Sex and Gender Information Value Date Recorded Sex Assigned at Not on file Legal Sex Female 3:33 AM ATTENDING RADIOLOGIST Gender Identity Not on file Sexual Orientation Not on file documented as of this encounter Plan of Treatment Upcoming Encounters Date Type Department Care Team (Late st Contact Info) Description 04/04/2025 11:00 AM ATTENDING RADIOLOGIST Office Visit [facility] Oncology and Hematology - [place] [address] [facility] [address] [place] [address] [place] [address] [place] [address] [address] [place] [address] documented as of this encounter Visit Diagnoses Diagnosis Solitary cyst of breast- Primary documented in this encounter Care Teams Waterproofing Supervisor Relationship Specialty Start Date End Date Abrahan Mcgee MD [address] [place] [address] PCP - General Family Practice 04/03/24 documented as of this encounter
--- OUTSIDE RECORDS SUMMARY | 2025-01-21 21:31 | XMS_ITS | Encounter Summary ---
Author Organization [facility] Address [address] [place] [address] Care Team Providers Care Snow Maker Name Role Phone Abrahan Mcgee MD Primary Care Provider [phone] Encounter Details Date Type Department Care Team (Latest Contact Info) Description 11/26/2000 Outpatient Historical HIS [facility] ЕКАТЕРИНА Ernst, Andre Guardado MD NO ADDRESS ON FILE Essential hypertension, benign (Primary Dx) Social History Tobacco Use Types Packs/Day Years Used Date Smoking Tobacco: Never Assessed Comments Unknown Sex and Gender Information Value Date Recorded Sex Assigned at Not on file Legal Sex Female 3:33 AM ROOFER ASSISTANT Gender Identity Not on file Sexual Orientation Not on file documented as of this encounter Plan of Treatment Upcoming Encounters Date Type Department Care Team (Late st Contact Info) Description 04/04/2025 11:00 AM ROOFER ASSISTANT Office Visit [facility] Oncology and Hematology - [place] [address] [facility] [address] [place] [address] [place] [address] [place] [address] [address] [place] [address] documented as of this encounter Visit Diagnoses Diagnosis Essential hypertension, benign- Primary documented in this encounter Care Teams Snow Maker Relationship Specialty Start Date End Date Abrahan Mcgee MD [address] [place] [address] PCP - General Family Practice 04/03/24 documented as of this encounter
--- OUTSIDE RECORDS SUMMARY | 2025-01-21 21:31 | XMS_ITS | Encounter Summary ---
Author Organization [facility] Address [address] [place] [address] Care Team Providers Care Chief Talent Officer Name Role Phone Abrahan Mcgee MD Primary Care Provider [phone] Encounter Details Date Type Department Care Team (Latest Contact Info) Description 06/05/2004 Outpatient Historical HIS [facility] Andre Vidal MD NO ADDRESS ON FILE BENIGN HYPERTENSION (Primary Dx) Social History Tobacco Use Types Packs/Day Years Used Date Smoking Tobacco: Never Assessed Comments Unknown Sex and Gender Information Value Date Recorded Sex Assigned at Not on file Legal Sex Female 3:33 AM CHARGE ENTRY CLERK Gender Identity Not on file Sexual Orientation Not on file documented as of this encounter Plan of Treatment Upcoming Encounters Date Type Department Care Team (Late st Contact Info) Description 04/04/2025 11:00 AM CHARGE ENTRY CLERK Office Visit [facility] Oncology and Hematology - [place] [address] [facility] [address] [place] [address] Prince Mir MD [address] [facility] [address] [place] [address] documented as of this encounter [...] documented in this encounter Care Teams Chief Talent Officer Relationship Specialty Start Date End Date Abrahan Mcgee MD [address] [place] [address] PCP - General Family Practice 04/03/24 documented as of this encounter
--- OUTSIDE RECORDS SUMMARY | 2025-01-21 21:31 | XMS_ITS | Encounter Summary ---
Author Organization [facility] Address [address] [place] [address] Care Team Providers Care Magnet Valve Assembler Name Role Phone Abrahan Mcgee MD Primary Care Provider Encounter Details Date Type Department Care Team (Late st Contact Info) Description 02/24/2002 Outpatient Historical HIS [facility] Andre Ernst MD NO ADDRESS ON FILE Social History Tobacco Use Types Packs/Day Years Used Date Smoking Tobacco: Never Assessed Comments Unknown Sex and Gender Information Value Date Recorded Sex Assigned at Not on file Legal Sex Female 3:33 AM DOCUMENTATION IMPROVEMENT SPECIALIST Gender Identity Not on file Sexual Orientation Not on file documented as of this encounter Plan of Treatment Upcoming Encounters Date Type Department Care Team (Late st Contact Info) Description 04/04/2025 11:00 AM DOCUMENTATION IMPROVEMENT SPECIALIST Office Visit [facility] Oncology and Hematology - [place] [address] [place] [address] [address] [place] [address] Prince Mir MD [address] [facility] [address] [place] [address] documented as of this encounter Visit Diagnoses Not on filedocumented in this encounter Care Teams Magnet Valve Assembler Relationship Specialty Start Date End Date Abrahan Mcgee MD [address] [place] [address] PCP - General Family Practice 04/03/24 documented as of this encounter
--- OUTSIDE RECORDS SUMMARY | 2025-01-21 21:31 | XMS_ITS | Encounter Summary ---
Author Organization [facility] Address [address] [facility] Attn: Epic Prelude ADT [place] [address] Care Team Providers Care Cocoa Press Operator Name Role Phone Abrahan Mcgee MD Primary Care Provider [phone] Encounter Details Date Type Department Care Team (Late st Contact Info) Description 10/05/1994 Outpatient Historical Andre Ernst MD NO ADDRESS ON FILE Social History Tobacco Use Types Packs/Day Years Used Date Smoking Tobacco: Never Assessed Comments Unknown Sex and Gender Information Value Date Recorded Sex Assigned at Not on file Legal Sex Female 3:33 AM CONSTRUCTION STONEMASON Gender Identity Not on file Sexual Orientation Not on file documented as of this encounter Plan of Treatment Upcoming Encounters Date Type Department Care Team (Late st Contact Info) Description 04/04/2025 11:00 AM CONSTRUCTION STONEMASON Office Visit [facility] Oncology and Hematology - [place] [address] [place] [address] [address] [place] [address] [place] [address] [place] [address] [address] [place] [address] documented as of this encounter Visit Diagnoses Not on filedocumented in this encounter Care Teams Cocoa Press Operator Relationship Specialty Start Date End Date Abrahan Mcgee MD [address] [place] [address] PCP - General Family Practice 04/03/24 documented as of this encounter
--- OUTSIDE RECORDS SUMMARY | 2025-01-21 21:31 | XMS_ITS | Encounter Summary ---
Author Organization [facility] Address [address] [place] [address] Care Team Providers Care Technical Sales Specialist Name Role Phone Abrahan Mcgee MD Primary Care Provider Encounter Details Date Type Department Care Team (Late st Contact Info) Description 11/19/2003 Outpatient Historical HIS [facility] Andre Ernst MD NO ADDRESS ON FILE Social History Tobacco Use Types Packs/Day Years Used Date Smoking Tobacco: Never Assessed Comments Unknown Sex and Gender Information Value Date Recorded Sex Assigned at Not on file Legal Sex Female 3:33 AM OPTICIAN MANAGER Gender Identity Not on file Sexual Orientation Not on file documented as of this encounter Plan of Treatment Upcoming Encounters Date Type Department Care Team (Late st Contact Info) Description 04/04/2025 11:00 AM OPTICIAN MANAGER Office Visit [facility] Oncology and Hematology - [place] [address] [place] [address] [address] [place] [address] Prince Mir MD [address] [facility] [address] [place] [address] documented as of this encounter Visit Diagnoses Not on filedocumented in this encounter Care Teams Technical Sales Specialist Relationship Specialty Start Date End Date Abrahan Mcgee MD [address] [place] [address] PCP - General Family Practice 04/03/24 documented as of this encounter
--- OUTSIDE RECORDS SUMMARY | 2025-01-21 21:31 | XMS_ITS | Encounter Summary ---
Author Organization [facility] Address [address] [place] [address] Care Team Providers Care Acquisition Analyst Name Role Phone Abrahan Mcgee MD Primary Care Provider Encounter Details Date Type Department Care Team (Late st Contact Info) Description 11/04/2001 Outpatient Historical HIS [facility] Andre Ernst MD NO ADDRESS ON FILE Social History Tobacco Use Types Packs/Day Years Used Date Smoking Tobacco: Never Assessed Comments Unknown Sex and Gender Information Value Date Recorded Sex Assigned at Not on file Legal Sex Female 3:33 AM PRINCIPAL SYSTEMS ENGINEER Gender Identity Not on file Sexual Orientation Not on file documented as of this encounter Plan of Treatment Upcoming Encounters Date Type Department Care Team (Late st Contact Info) Description 04/04/2025 11:00 AM PRINCIPAL SYSTEMS ENGINEER Office Visit [facility] Oncology and Hematology - [place] [address] [place] [address] [address] [place] [address] Prince Mir MD [address] [facility] [address] [place] [address] documented as of this encounter Visit Diagnoses Not on filedocumented in this encounter Care Teams Acquisition Analyst Relationship Specialty Start Date End Date Abrahan Mcgee MD [address] [place] [address] PCP - General Family Practice 04/03/24 documented as of this encounter
--- OUTSIDE RECORDS SUMMARY | 2025-01-21 21:31 | XMS_ITS | Encounter Summary ---
Author Organization [facility] Address [address] [place] [address] Care Team Providers Care Core Driller Name Role Phone Abrahan Mcgee MD Primary Care Provider [phone] Encounter Details Date Type Department Care Team (Late st Contact Info) Description 07/23/2003 Outpatient Historical HIS [facility] Meryl Perry MD [address] [address] UTERINE LEIOMYOMA NOS (Primary Dx) Social History Tobacco Use Types Packs/Day Years Used Date Smoking Tobacco: Never Assessed Comments Unknown Sex and Gender Information Value Date Recorded Sex Assigned at Not on file Legal Sex Female 3:33 AM GREEN HOUSE MANAGER Gender Identity Not on file Sexual Orientation Not on file documented as of this encounter Plan of Treatment Upcoming Encounters Date Type Department Care Team (Late st Contact Info) Description 04/04/2025 11:00 AM GREEN HOUSE MANAGER Office Visit [facility] Oncology and Hematology - [place] [address] [place] [address] Dr [address] [place] [address] Prince Mir MD [address] [facility] [address] [place] [address] documented as of this encounter Visit Diagnoses Diagnosis Leiomyoma of uterus, unspecified- Primary documented in this encounter Care Teams Core Driller Relationship Specialty Start Date End Date Abrahan Mcgee MD [address] [place] [address] PCP - General Family Practice 04/03/24 documented as of this encounter
--- OUTSIDE RECORDS SUMMARY | 2025-01-21 21:31 | XMS_ITS | Encounter Summary ---
Author Organization [facility] Address [address] [place] [address] Care Team Providers Care Telemarketer Name Role Phone Abrahan Mcgee MD Primary Care Provider Encounter Details Date Type Department Care Team (Late st Contact Info) Description 01/06/2006 Outpatient Historical HIS [facility] Andre Ernst MD NO ADDRESS ON FILE Social History Tobacco Use Types Packs/Day Years Used Date Smoking Tobacco: Never Assessed Comments Unknown Sex and Gender Information Value Date Recorded Sex Assigned at Not on file Legal Sex Female 3:33 AM RENTAL CAR FERRY DRIVER Gender Identity Not on file Sexual Orientation Not on file documented as of this encounter Plan of Treatment Upcoming Encounters Date Type Department Care Team (Late st Contact Info) Description 04/04/2025 11:00 AM RENTAL CAR FERRY DRIVER Office Visit [facility] Oncology and Hematology - [place] [address] [place] [address] [address] [place] [address] Prince Mir MD [address] [facility] [address] [place] [address] documented as of this encounter Visit Diagnoses Not on filedocumented in this encounter Care Teams Telemarketer Relationship Specialty Start Date End Date Abrahan Mcgee MD [address] [place] [address] PCP - General Family Practice 04/03/24 documented as of this encounter
--- OUTSIDE RECORDS SUMMARY | 2025-01-21 21:31 | XMS_ITS | Encounter Summary ---
Author Organization [facility] Address [address] [place] [address] Care Team Providers Care Tractor Trailer Operator Name Role Phone Abrahan Mcgee MD Primary Care Provider [phone] Encounter Details Date Type Department Care Team (Latest Contact Info) Description 03/16/2002 Outpatient Historical HIS [facility] ЕКАТЕРИНА Ernst, Andre Guardado MD NO ADDRESS ON FILE BENIGN HYPERTENSION (Primary Dx) Social History Tobacco Use Types Packs/Day Years Used Date Smoking Tobacco: Never Assessed Comments Unknown Sex and Gender Information Value Date Recorded Sex Assigned at Not on file Legal Sex Female 3:33 AM APPLICATIONS INTERN Gender Identity Not on file Sexual Orientation Not on file documented as of this encounter Plan of Treatment Upcoming Encounters Date Type Department Care Team (Late st Contact Info) Description 04/04/2025 11:00 AM APPLICATIONS INTERN Office Visit [facility] Oncology and Hematology - [place] [address] [facility] [address] [place] [address] [place] [address] [place] [address] [address] [place] [address] documented as of this encounter Visit Diagnoses Diagnosis Essential hypertension, benign- Primary documented in this encounter Care Teams Tractor Trailer Operator Relationship Specialty Start Date End Date Abrahan Mcgee MD [address] [place] [address] PCP - General Family Practice 04/03/24 documented as of this encounter
--- OUTSIDE RECORDS SUMMARY | 2025-01-21 21:31 | XMS_ITS | Encounter Summary ---
Author Organization [facility] Address [address] [place] [address] Care Team Providers Care Charter Boat Operator Name Role Phone Abrahan Mcgee MD Primary Care Provider [phone] Encounter Details Date Type Department Care Team (Late st Contact Info) Description 07/27/2003 Outpatient Historical HIS [facility] ЕКАТЕРИНА Perry, Meryl Pereira MD [address] [address] ABNORMAL FINDINGS-GI TRACT (Primary Dx) Social History Tobacco Use Types Packs/Day Years Used Date Smoking Tobacco: Never Assessed Comments Unknown Sex and Gender Information Value Date Recorded Sex Assigned at Not on file Legal Sex Female 3:33 AM DEPUTY JUVENILE OFFICER Gender Identity Not on file Sexual Orientation Not on file documented as of this encounter Plan of Treatment Upcoming Encounters Date Type Department Care Team (Late st Contact Info) Description 04/04/2025 11:00 AM DEPUTY JUVENILE OFFICER Office Visit [facility] Oncology and Hematology - [place] [address] [place] [address] [address] [place] [address] Prince Mir MD [address] [facility] [address] [place] [address] documented as of this encounter Visit Diagnoses Diagnosis Nonspecific (abnormal) findings on radiological and other examination of gastrointestinal tract- Primary documented in this encounter Care Teams Charter Boat Operator Relationship Specialty Start Date End Date Abrahan Mcgee MD [address] [place] [address] PCP - General Family Practice 04/03/24 documented as of this encounter
--- OUTSIDE RECORDS SUMMARY | 2025-01-21 21:31 | XMS_ITS | Encounter Summary ---
Author Organization [facility] Address [address] [facility] Attn: Epic Prelude ADT [place] [address] Care Team Providers Care [employer] Compliance Internship Name Role Phone Abrahan Mcgee MD [...] on file Legal Sex Female 3:33 AM VICE PRINCIPAL Gender Identity Not on file Sexual Orientation Not on file documented as of this encounter Plan of Treatment Upcoming Encounters Date Type Department Care Team (Late st Contact Info) Description 04/04/2025 11:00 AM VICE PRINCIPAL Office Visit [facility] Oncology and Hematology - [place] [address] [place] [address] [address] [place] [address] [place] [address] [place] [address] [address] [place] [address] documented as of this encounter Visit Diagnoses Not on filedocumented in this encounter Care Teams [employer] Compliance Internship Relationship Specialty Start Date End Date Abrahan Mcgee MD [address] [place] [address] PCP - General Family Practice 04/03/24 documented as of this encounter
--- OUTSIDE RECORDS SUMMARY | 2025-01-21 21:31 | XMS_ITS | Encounter Summary ---
Author Organization [facility] Address [address] [place] [address] Care Team Providers Care Truck Driver Heavy Name Role Phone Abrahan Mcgee MD Primary Care Provider [phone] Encounter Details Date Type Department Care Team (Late st Contact Info) Description 12/01/2002 Outpatient Historical HIS MRI DEPT Berta Monae MD [address] [place] [address] NONRUPTURED CEREBRAL ANEURYSM (Primary Dx) Social History Tobacco Use Types Packs/Day Years Used Date Smoking Tobacco: Never Assessed Comments Unknown Sex and Gender Information Value Date Recorded Sex Assigned at Not on file Legal Sex Female 3:33 AM COMMISSION AGENT LIVESTOCK Gender Identity Not on file Sexual Orientation Not on file documented as of this encounter Plan of Treatment Upcoming Encounters Date Type Department Care Team (Late st Contact Info) Description 04/04/2025 11:00 AM COMMISSION AGENT LIVESTOCK Office Visit [facility] Oncology and Hematology - [place] [address] [place] [address] [address] [place] [address] Prince Mir MD [address] [facility] [address] [place] [address] documented as of this encounter Visit Diagnoses Diagnosis Cerebral aneurysm, nonruptured- Primary documented in this encounter Care Teams Truck Driver Heavy Relationship Specialty Start Date End Date Abrahan Mcgee MD [address] [place] [address] PCP - General Family Practice 04/03/24 documented as of this encounter
--- OUTSIDE RECORDS SUMMARY | 2025-01-21 21:31 | XMS_ITS | Encounter Summary ---
Author Organization [facility] Address [address] [place] [address] Care Team Providers Care Rental Coordinator Name Role Phone Abrahan Mcgee MD Primary Care Provider Encounter Details Date Type Department Care Team (Latest Contact Info) Description 08/15/2003 Outpatient Historical HIS [facility] ЕКАТЕРИНА Ernst, Andre Guardado MD NO ADDRESS ON FILE HYPOPOTASSEMIA (Primary Dx) Social History Tobacco Use Types Packs/Day Years Used Date Smoking Tobacco: Never Assessed Comments Unknown Sex and Gender Information Value Date Recorded Sex Assigned at Not on file Legal Sex Female 3:33 AM METAL TURNER Gender Identity Not on file Sexual Orientation Not on file documented as of this encounter Plan of Treatment Upcoming Encounters Date Type Department Care Team (Late st Contact Info) Description 04/04/2025 11:00 AM METAL TURNER Office Visit [facility] Oncology and Hematology - [place] [address] [facility] [address] [place] [address] [place] [address] [place] [address] [address] [place] [address] documented as of this encounter Visit Diagnoses Diagnosis Hypopotassemia- Primary documented in this encounter Care Teams Rental Coordinator Relationship Specialty Start Date End Date Abrahan Mcgee MD [address] [place] [address] PCP - General Family Practice 04/03/24 documented as of this encounter
--- OUTSIDE RECORDS SUMMARY | 2025-01-21 21:31 | XMS_ITS | Encounter Summary ---
Author Organization [facility] Address [address] [place] [address] Care Team Providers Care Petroleum Refinery Worker Name Role Phone Abrahan Mcgee MD Primary Care Provider [phone] Encounter Details Date Type Department Care Team (Late st Contact Info) Description 10/29/2000 Outpatient Historical HIS [facility] Andre Ernst MD NO ADDRESS ON FILE Social History Tobacco Use Types Packs/Day Years Used Date Smoking Tobacco: Never Assessed Comments Unknown Sex and Gender Information Value Date Recorded Sex Assigned at Not on file Legal Sex Female 3:33 AM NET MANAGER Gender Identity Not on file Sexual Orientation Not on file documented as of this encounter Plan of Treatment Upcoming Encounters Date Type Department Care Team (Late st Contact Info) Description 04/04/2025 11:00 AM NET MANAGER Office Visit [facility] Oncology and Hematology - [place] [address] [place] [address] [address] [place] [address] Prince Mir MD [address] [facility] [address] [place] [address] documented as of this encounter Visit Diagnoses Not on filedocumented in this encounter Care Teams Petroleum Refinery Worker Relationship Specialty Start Date End Date Abrahan Mcgee MD [address] [place] [address] PCP - General Family Practice 04/03/24 documented as of this encounter
--- OUTSIDE RECORDS SUMMARY | 2025-01-21 21:31 | XMS_ITS | Encounter Summary ---
Author Organization [facility] Address [address] [place] [address] Care Team Providers Care Circulation Representative Name Role Phone Abrahan Mcgee MD Primary Care Provider [phone] Encounter Details Date Type Department Care Team (Late st Contact Info) Description 04/12/2002 Outpatient Historical [facility] Andre Ernst MD NO ADDRESS ON FILE DIAPHRAGMATIC HERNIA (Primary Dx) Social History Tobacco Use Types Packs/Day Years Used Date Smoking Tobacco: Never Assessed Comments Unknown Sex and Gender Information Value Date Recorded Sex Assigned at Not on file Legal Sex Female 3:33 AM FLIGHT ENGINEER Gender Identity Not on file Sexual Orientation Not on file documented as of this encounter Plan of Treatment Upcoming Encounters Date Type Department Care Team (Late st Contact Info) Description 04/04/2025 11:00 AM FLIGHT ENGINEER Office Visit 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 [address] PCP - General Family Practice 04/03/24 documented as of this encounter
--- OUTSIDE RECORDS SUMMARY | 2025-01-21 21:31 | XMS_ITS | Encounter Summary ---
Author Organization [facility] Address [address] [place] [address] Care Team Providers Care Retail Sales Professional Name Role Phone Abrahan Mcgee MD Primary Care Provider [phone] Encounter Details Date Type Department Care Team (Latest Contact Info) Description 11/24/2005 Outpatient Historical HIS [facility] ЕКАТЕРИНА Sneed, Oscar Medeiros MD NO ADDRESS ON FILE Other Screening Mammogram (Primary Dx) Social History Tobacco Use Types Packs/Day Years Used Date Smoking Tobacco: Never Assessed Comments Unknown Sex and Gender Information Value Date Recorded Sex Assigned at Not on file Legal Sex Female 3:33 AM DARKLIGHT INSPECTOR Gender Identity Not on file Sexual Orientation Not on file documented as of this encounter Plan of Treatment Upcoming Encounters Date Type Department Care Team (Late st Contact Info) Description 04/04/2025 11:00 AM DARKLIGHT INSPECTOR Office Visit [facility] Oncology and Hematology - [place] [address] [facility] [address] [place] [address] [place] [address] [place] [address] [address] [place] [address] documented as of this encounter Visit Diagnoses Diagnosis Other screening mammogram- Primary documented in this encounter Care Teams Retail Sales Professional Relationship Specialty Start Date End Date Abrahan Mcgee MD [address] [place] [address] PCP - General Family Practice 04/03/24 documented as of this encounter
--- OUTSIDE RECORDS SUMMARY | 2025-01-21 21:31 | XMS_ITS | Encounter Summary ---
Author Organization [facility] Address [address] [place] [address] Care Team Providers Care Security Team Lead Name Role Phone Abrahan Mcgee MD Primary Care Provider Encounter Details Date Type Department Care Team (Late st Contact Info) Description 08/03/2001 Outpatient Historical HIS [facility] Berta Monae MD [address] [place] [address] Social History Tobacco Use Types Packs/Day Years Used Date Smoking Tobacco: Never Assessed Comments Unknown Sex and Gender Information Value Date Recorded Sex Assigned at Not on file Legal Sex Female 3:33 AM HANDSTITCHING MACHINE ARMHOLE FELLER Gender Identity Not on file Sexual Orientation Not on file documented as of this encounter Plan of Treatment Upcoming Encounters Date Type Department Care Team (Late st Contact Info) Description 04/04/2025 11:00 AM HANDSTITCHING MACHINE ARMHOLE FELLER Office Visit [facility] Oncology and Hematology - [place] [address] [place] [address] [address] [place] [address] Prince Mir MD [address] [facility] [address] [place] [address] documented as of this encounter Visit Diagnoses Not on filedocumented in this encounter Care Teams Security Team Lead Relationship Specialty Start Date End Date Abrahan Mcgee MD [address] [place] [address] PCP - General Family Practice 04/03/24 documented as of this encounter
--- OUTSIDE RECORDS SUMMARY | 2025-01-21 21:31 | XMS_ITS | Encounter Summary ---
Author Organization [facility] Address [address] [place] [address] Care Team Providers Care Industrial Safety And Health Specialist Name Role Phone Abrahan Mcgee MD Primary Care Provider [phone] Encounter Details Date Type Department Care Team [...] file Legal Sex Female 3:33 AM MOLD SHAKER Gender Identity Not on file Sexual Orientation Not on file documented as of this encounter Plan of Treatment Upcoming Encounters Date Type Department Care Team (Late st Contact Info) Description 04/04/2025 11:00 AM MOLD SHAKER Office Visit [facility] Oncology and Hematology - [place] [address] [facility] [address] [place] [address] [place] [address] [place] [address] [address] [place] [address] documented as of this encounter Visit Diagnoses Diagnosis Unspecified symptom associated with female genital organs- Primary documented in this encounter Care Teams Industrial Safety And Health Specialist Relationship Specialty Start Date End Date Abrahan Mcgee MD [address] [place] [address] PCP - General Family Practice 04/03/24 documented as of this encounter
--- OUTSIDE RECORDS SUMMARY | 2025-01-21 21:31 | XMS_ITS | Encounter Summary ---
Author Organization [facility] Address [address] [place] [address] Care Team Providers Care Residential Real Estate Agent Name Role Phone Abrahan Mcgee MD Primary Care Provider Encounter Details Date Type Department Care Team (Late st Contact Info) Description 12/04/2005 Outpatient Historical HIS [facility] Andre Ernst MD NO ADDRESS ON FILE Social History Tobacco Use Types Packs/Day Years Used Date Smoking Tobacco: Never Assessed Comments Unknown Sex and Gender Information Value Date Recorded Sex Assigned at Not on file Legal Sex Female 3:33 AM BUCKLE COVERER Gender Identity Not on file Sexual Orientation Not on file documented as of this encounter Plan of Treatment Upcoming Encounters Date Type Department Care Team (Late st Contact Info) Description 04/04/2025 11:00 AM BUCKLE COVERER Office Visit [facility] Oncology and Hematology - [place] [address] [place] [address] [address] [place] [address] Prince Mir MD [address] [facility] [address] [place] [address] documented as of this encounter Visit Diagnoses Not on filedocumented in this encounter Care Teams Residential Real Estate Agent Relationship Specialty Start Date End Date Abrahan Mcgee MD [address] [place] [address] PCP - General Family Practice 04/03/24 documented as of this encounter
--- OUTSIDE RECORDS SUMMARY | 2025-01-21 21:31 | XMS_ITS | Encounter Summary ---
Author Organization [facility] Address [address] [place] [address] Care Team Providers Care Children'S Author Name Role Phone Abrahan Mcgee MD Primary Care Provider [phone] Encounter Details Date Type Department Care Team (Latest Contact Info) Description 08/15/2004 Outpatient Historical HIS [facility] Andre Vidal MD NO ADDRESS ON FILE HYPOPOTASSEMIA (Primary Dx) Social History Tobacco Use Types Packs/Day Years Used Date Smoking Tobacco: Never Assessed Comments Unknown Sex and Gender Information Value Date Recorded Sex Assigned at Not on file Legal Sex Female 3:33 AM COPING MACHINE ASSEMBLER Gender Identity Not on file Sexual Orientation Not on file documented as of this encounter Plan of Treatment Upcoming Encounters Date Type Department Care Team (Late st Contact Info) Description 04/04/2025 11:00 AM COPING MACHINE ASSEMBLER Office Visit [facility] Oncology and Hematology - [place] [address] [facility] [address] [place] [address] Prince Mir MD [address] [facility] [address] [place] [address] documented as of this encounter [...] documented in this encounter Care Teams Children'S Author Relationship Specialty Start Date End Date Abrahan Mcgee MD [address] [place] [address] PCP - General Family Practice 04/03/24 documented as of this encounter
--- OUTSIDE RECORDS SUMMARY | 2025-01-21 21:31 | XMS_ITS | Encounter Summary ---
Author Organization [facility] Address [address] [place] [address] Care Team Providers Care Associate Account Executive Name Role Phone Abrahan Mcgee MD Primary Care Provider Encounter Details Date Type Department Care Team (Late st Contact Info) Description 10/29/2000 Outpatient Historical HIS [facility] Andre Ernst MD NO ADDRESS ON FILE Social History Tobacco Use Types Packs/Day Years Used Date Smoking Tobacco: Never Assessed Comments Unknown Sex and Gender Information Value Date Recorded Sex Assigned at Not on file Legal Sex Female 3:33 AM MULTIMEDIA ENGINEER Gender Identity Not on file Sexual Orientation Not on file documented as of this encounter Plan of Treatment Upcoming Encounters Date Type Department Care Team (Late st Contact Info) Description 04/04/2025 11:00 AM MULTIMEDIA ENGINEER Office Visit [facility] Oncology and Hematology - [place] [address] [place] [address] [address] [place] [address] Prince Mir MD [address] [facility] [address] [place] [address] documented as of this encounter Visit Diagnoses Not on filedocumented in this encounter Care Teams Associate Account Executive Relationship Specialty Start Date End Date Abrahan Mcgee MD [address] [place] [address] PCP - General Family Practice 04/03/24 documented as of this encounter
--- OUTSIDE RECORDS SUMMARY | 2025-01-21 21:31 | XMS_ITS | Encounter Summary ---
Author Organization [facility] Address [address] [place] [address] Care Team Providers Care Electrolysist Name Role Phone Abrahan Mcgee MD Primary Care Provider [phone] Encounter Details Date Type Department Care Team (Latest Contact Info) Description 10/29/2000 Outpatient Historical HIS [facility] ЕКАТЕРИНА Ernst, Andre Guardado MD NO ADDRESS ON FILE Backache, unspecified (Primary Dx) Social History Tobacco Use Types Packs/Day Years Used Date Smoking Tobacco: Never Assessed Comments Unknown Sex and Gender Information Value Date Recorded Sex Assigned at Not on file Legal Sex Female 3:33 AM EVP STRATEGY Gender Identity Not on file Sexual Orientation Not on file documented as of this encounter Plan of Treatment Upcoming Encounters Date Type Department Care Team (Late st Contact Info) Description 04/04/2025 11:00 AM EVP STRATEGY Office Visit [facility] Oncology and Hematology - [place] [address] [facility] [address] [place] [address] Prince Mir MD [address] [place] [address] [address] [place] [address] documented as of this encounter Visit Diagnoses Diagnosis Backache, unspecified- Primary documented in this encounter Care Teams Electrolysist Relationship Specialty Start Date End Date Abrahan Mcgee MD [address] [place] [address] PCP - General Family Practice 04/03/24 documented as of this encounter
--- OUTSIDE RECORDS SUMMARY | 2025-01-21 21:31 | XMS_ITS | Encounter Summary ---
Author Organization [facility] Address [address] [place] [address] Care Team Providers Care Trust Officer Name Role Phone Abrahan Mcgee MD [...] on file Legal Sex Female 3:33 AM INFORMATION MANAGEMENT OFFICER Gender Identity Not on file Sexual Orientation Not on file documented as of this encounter Plan of Treatment Upcoming Encounters Date Type Department Care Team (Late st Contact Info) Description 04/04/2025 11:00 AM INFORMATION MANAGEMENT OFFICER Office Visit [facility] Oncology and Hematology - [place] [address] [place] [address] [address] [place] [address] [place] [address] [place] [address] [address] [place] [address] documented as of this encounter Visit Diagnoses Diagnosis Headache(784.0)- Primary Headache documented in this encounter Care Teams Trust Officer Relationship Specialty Start Date End Date Abrahan Mcgee MD [address] [place] [address] PCP - General Family Practice 04/03/24 documented as of this encounter
--- OUTSIDE RECORDS SUMMARY | 2025-01-21 21:31 | XMS_ITS | Encounter Summary ---
Author Organization [facility] Address [address] [place] [address] Care Team Providers Care Party Planner Name Role Phone Abrahan Mcgee MD Primary Care Provider [phone] Encounter Details Date Type Department Care Team (Latest Contact Info) Description 11/04/2001 Outpatient Historical HIS [facility] ЕКАТЕРИНА Ernst, Andre Guardado MD NO ADDRESS ON FILE BENIGN HYPERTENSION (Primary Dx) Social History Tobacco Use Types Packs/Day Years Used Date Smoking Tobacco: Never Assessed Comments Unknown Sex and Gender Information Value Date Recorded Sex Assigned at Not on file Legal Sex Female 3:33 AM RNP Gender Identity Not on file Sexual Orientation Not on file documented as of this encounter Plan of Treatment Upcoming Encounters Date Type Department Care Team (Late st Contact Info) Description 04/04/2025 11:00 AM RNP Office Visit [facility] Oncology and Hematology - [place] [address] [facility] [address] [place] [address] [place] [address] [place] [address] [address] [place] [address] documented as of this encounter Visit Diagnoses Diagnosis Essential hypertension, benign- Primary documented in this encounter Care Teams Party Planner Relationship Specialty Start Date End Date Abrahan Mcgee MD [address] [place] [address] PCP - General Family Practice 04/03/24 documented as of this encounter
--- OUTSIDE RECORDS SUMMARY | 2025-01-21 21:31 | XMS_ITS | Encounter Summary ---
Author Organization [facility] Address [address] [place] [address] Care Team Providers Care Volunteer Services Coordinator Name Role Phone Abrahan Mcgee MD Primary Care Provider [phone] Encounter Details Date Type Department Care Team (Late st Contact Info) Description 07/13/2003 Outpatient Historical HIS [facility] Meryl Perry MD [address] [address] ABDOMINAL PAIN OTHER SPEC SITE (Primary Dx) Social History Tobacco Use Types Packs/Day Years Used Date Smoking Tobacco: Never Assessed Comments Unknown Sex and Gender Information Value Date Recorded Sex Assigned at Not on file Legal Sex Female 3:33 AM ASSEMBLY MANAGER Gender Identity Not on file Sexual Orientation Not on file documented as of this encounter Plan of Treatment Upcoming Encounters Date Type Department Care Team (Late st Contact Info) Description 04/04/2025 11:00 AM ASSEMBLY MANAGER Office Visit [facility] Oncology and Hematology - [place] [address] [place] [address] [address] [place] [address] Prince Mir MD [address] [facility] [address] [place] [address] documented as of this encounter Visit Diagnoses Diagnosis Abdominal pain, other specified site- Primary documented in this encounter Care Teams Volunteer Services Coordinator Relationship Specialty Start Date End Date Abrahan Mcgee MD [address] [place] [address] PCP - General Family Practice 2/3/25 documented as of this encounter
--- OUTSIDE RECORDS SUMMARY | 2025-01-21 21:31 | XMS_ITS | Encounter Summary ---
Author Organization [facility] Address [address] [place] [address] Care Team Providers Care Bottle House Pumper Name Role Phone Abrahan Mcgee MD Primary Care Provider [phone] Encounter Details Date Type Department Care Team (Latest Contact Info) Description 11/01/2003 Outpatient Historical HIS [facility] ЕКАТЕРИНА Sneed, Oscar Medeiros MD NO ADDRESS ON FILE SCREENING MAMM-MAILG NEOPL-OTHER (Primary Dx) Social History Tobacco Use Types Packs/Day Years Used Date Smoking Tobacco: Never Assessed Comments Unknown Sex and Gender Information Value Date Recorded Sex Assigned at Not on file Legal Sex Female 3:33 AM PLASTERER MAINTENANCE Gender Identity Not on file Sexual Orientation Not on file documented as of this encounter Plan of Treatment Upcoming Encounters Date Type Department Care Team (Late st Contact Info) Description 04/04/2025 11:00 AM PLASTERER MAINTENANCE Office Visit [facility] Oncology and Hematology - [address] [place] [address] Prince Mir MD [address] [place] [address] [address] [place] [address] documented as of this encounter Visit Diagnoses Diagnosis Other screening mammogram- Primary documented in this encounter Care Teams Bottle House Pumper Relationship Specialty Start Date End Date Abrahan Mcgee MD [address] [place] [address] PCP - General Family Practice 04/03/24 documented as of this encounter
--- OUTSIDE RECORDS SUMMARY | 2025-01-21 21:31 | XMS_ITS | Encounter Summary ---
Author Organization [facility] Address [address] [place] [address] Care Team Providers Care Tenderizer Tender Name Role Phone Abrahan Mcgee MD Primary Care Provider [phone] Encounter Details Date Type Department Care Team [...] on file Legal Sex Female 3:33 AM COLLISION CENTER MANAGER Gender Identity Not on file Sexual Orientation Not on file documented as of this encounter Plan of Treatment Upcoming Encounters Date Type Department Care Team (Late st Contact Info) Description 04/04/2025 11:00 AM COLLISION CENTER MANAGER Office Visit [facility] Oncology and Hematology - [place] [address] [facility] [address] [place] [address] Prince Mir MD [address] [facility] [address] [place] [address] documented as of this encounter Visit Diagnoses Diagnosis Pure hypercholesterolemia- Primary documented in this encounter Care Teams Tenderizer Tender Relationship Specialty Start Date End Date Abrahan Mcgee MD [address] [place] [address] PCP - General Family Practice 04/03/24 documented as of this encounter
--- OUTSIDE RECORDS SUMMARY | 2025-01-21 21:31 | XMS_ITS | Encounter Summary ---
Author Organization [facility] Address [address] [place] [address] Care Team Providers Care Electrical Engineering Manager Name Role Phone Abrahan Mcgee MD Primary Care Provider Encounter Details Date Type Department Care Team (Late st Contact Info) Description 11/27/2002 Outpatient Historical HIS [facility] Berta Monae MD [address] [place] [address] Social History Tobacco Use Types Packs/Day Years Used Date Smoking Tobacco: Never Assessed Comments Unknown Sex and Gender Information Value Date Recorded Sex Assigned at Not on file Legal Sex Female 3:33 AM PRODUCT SUPPORT CONSULTANT Gender Identity Not on file Sexual Orientation Not on file documented as of this encounter Plan of Treatment Upcoming Encounters Date Type Department Care Team (Late st Contact Info) Description 04/04/2025 11:00 AM PRODUCT SUPPORT CONSULTANT Office Visit [facility] Oncology and Hematology - [place] [address] [place] [address] [address] [place] [address] [place] [address] [place] [address] [address] [place] [address] documented as of this encounter Visit Diagnoses Not on filedocumented in this encounter Care Teams Electrical Engineering Manager Relationship Specialty Start Date End Date Abrahan Mcgee MD [address] [place] [address] PCP - General Family Practice 04/03/24 documented as of this encounter
--- OUTSIDE RECORDS SUMMARY | 2025-01-21 21:31 | XMS_ITS | Encounter Summary ---
Author Organization [facility] Address [address] [place] [address] Care Team Providers Care Publicity Director Name Role Phone Abrahan Mcgee MD Primary Care Provider [phone] Encounter Details Date Type Department Care Team (Late Contact Info) Description 02/24/2005 Outpatient Historical [facility] [id number] [place] [address] Alcon Valadez MD [address] [place] [address] Social History Tobacco Use Types Packs/Day Years Used Date Smoking Tobacco: Never Assessed Comments Unknown Sex and Gender Information Value Date Recorded Sex Assigned at Not on file Legal Sex Female 3:33 AM STACK YIELD ENGINEER Gender Identity Not on file Sexual Orientation Not on file documented as of this encounter Plan of Treatment Upcoming Encounters Date Type Department Care Team (Late st Contact Info) Description 04/04/2025 11:00 AM STACK YIELD ENGINEER Office Visit [facility] Oncology and Hematology - [place] [address] [facility] [address] [place] [address] Prince Mir MD [address] [facility] [address] [place] [address] documented as of this encounter Visit Diagnoses Not on filedocumented in this encounter Care Teams Publicity Director Relationship Specialty Start Date End Date Abrahan Mcgee MD [address] [place] [address] PCP - General Family Practice 04/03/24 documented as of this encounter
--- OUTSIDE RECORDS SUMMARY | 2025-01-21 21:31 | XMS_ITS | Encounter Summary ---
Author Organization [facility] Address [address] [place] [address] Care Team Providers Care Salt Plant Operator Name Role Phone Abrahan Mcgee MD Primary Care Provider [phone] Encounter Details Date Type Department Care Team (Latest Contact Info) Description 12/04/2005 Outpatient Historical HIS [facility] Andre Vidal MD NO ADDRESS ON FILE Essential Hypertension, Benign (Primary Dx) Social History Tobacco Use Types Packs/Day Years Used Date Smoking Tobacco: Never Assessed Comments Unknown Sex and Gender Information Value Date Recorded Sex Assigned at Not on file Legal Sex Female 3:33 AM HOB GRINDER Gender Identity Not on file Sexual Orientation Not on file documented as of this encounter Plan of Treatment Upcoming Encounters Date Type Department Care Team (Late st Contact Info) Description 04/04/2025 11:00 AM HOB GRINDER Office Visit [facility] Oncology and Hematology - [place] [address] [facility] [address] [place] [address] Prince Mir MD [address] [facility] [address] [place] [address] documented as of this encounter [...] ORDERABLES Final Res ult Performing Organization Address City/[facility]/ZIP Co de Phone Number INTERFACE SYSTEM Refer to clinic/hospital department documented in this encounter Visit Diagnoses Diagnosis Essential hypertension, benign- Primary documented in this encounter Care Teams Salt Plant Operator Relationship Specialty Start Date End Date Abrahan Mcgee MD [address] [place] [address] PCP - General Family Practice 04/03/24 documented as of this encounter
--- OUTSIDE RECORDS SUMMARY | 2025-01-21 21:31 | XMS_ITS | Encounter Summary ---
Author Organization [facility] Address [address] [place] [address] Care Team Providers Care Rv Detailer Name Role Phone Abrahan Mcgee MD Primary Care Provider [phone] Encounter Details Date Type Department Care Team (Late st Contact Info) Description 08/15/2002 Outpatient Historical HIS [facility] Andre Ernst MD NO ADDRESS ON FILE Social History Tobacco Use Types Packs/Day Years Used Date Smoking Tobacco: Never Assessed Comments Unknown Sex and Gender Information Value Date Recorded Sex Assigned at Not on file Legal Sex Female 3:[address] Gender Identity Not on file Sexual Orientation Not on file documented as of this encounter Plan of Treatment Upcoming Encounters Date Type Department Care Team (Late st Contact Info) Description 04/04/2025 11:[address]GE Office Visit [facility] Oncology and Hematology - [place] [address] [place] [address] [address] [place] [address] Prince Mir MD [address] [facility] [address] [place] [address] documented as of this encounter Visit Diagnoses Not on filedocumented in this encounter Care Teams Rv Detailer Relationship Specialty Start Date End Date Abrahan Mcgee MD [address] [place] [address] PCP - General Family Practice 04/03/24 documented as of this encounter
--- OUTSIDE RECORDS SUMMARY | 2025-01-21 21:31 | XMS_ITS | Encounter Summary ---
Author Organization [facility] Address [address] [place] [address] Care Team Providers Care Parachute Harness Rigger Name Role Phone Abrahan Mcgee MD Primary Care Provider Encounter Details Date Type Department Care Team (Late st Contact Info) Description 07/30/2005 Outpatient Historical [facility] [...] st Contact Info) Description 04/04/2025 11:00 AM QUOTATION CHECKER Office Visit [facility] Oncology and Hematology - [place] [address] [place] [address] [address] [place] [address] Prince Mir MD [address] [facility] [address] [place] [address] documented as of this encounter Visit Diagnoses Not on filedocumented in this encounter Care Teams Parachute Harness Rigger Relationship Specialty Start Date End Date Abrahan Mcgee MD [address] [place] [address] PCP - General Family Practice 04/03/24 documented as of this encounter
--- OUTSIDE RECORDS SUMMARY | 2025-01-21 21:31 | XMS_ITS | Encounter Summary ---
Author Organization [facility] Address [address] [place] [address] Care Team Providers Care Canvas Goods Fabricator Name Role Phone Abrahan Mcgee MD Primary Care Provider Encounter Details Date Type Department Care Team (Late st Contact Info) Description 03/22/2001 Outpatient Historical HIS [facility] Andre Ernst MD NO ADDRESS ON FILE Social History Tobacco Use Types Packs/Day Years Used Date Smoking Tobacco: Never Assessed Comments Unknown Sex and Gender Information Value Date Recorded Sex Assigned at Not on file Legal Sex Female 3:33 AM SECURITY SALES MANAGER Gender Identity Not on file Sexual Orientation Not on file documented as of this encounter Plan of Treatment Upcoming Encounters Date Type Department Care Team (Late st Contact Info) Description 04/04/2025 11:00 AM SECURITY SALES MANAGER Office Visit [facility] Oncology and Hematology - [place] [address] [place] [address] [address] [place] [address] Prince Mir MD [address] [facility] [address] [place] [address] documented as of this encounter Visit Diagnoses Not on filedocumented in this encounter Care Teams Canvas Goods Fabricator Relationship Specialty Start Date End Date Abrahan Mcgee MD [address] [place] [address] PCP - General Family Practice 04/03/24 documented as of this encounter
--- OUTSIDE RECORDS SUMMARY | 2025-01-21 21:31 | XMS_ITS | Encounter Summary ---
Author Organization [facility] Address [address] [place] [address] Care Team Providers Care Speech Therapy Teacher Name Role Phone Abrahan Mcgee MD Primary Care Provider [phone] Encounter Details Date Type Department Care Team (Latest Contact Info) Description 11/19/2003 Outpatient Historical HIS [facility] Ernst, Andre Guardado MD NO ADDRESS ON FILE HYPOPOTASSEMIA (Primary Dx) Social History Tobacco Use Types Packs/Day Years Used Date Smoking Tobacco: Never Assessed Comments Unknown Sex and Gender Information Value Date Recorded Sex Assigned at Not on file Legal Sex Female 3:33 AM CAREER PLACEMENT SPECIALIST Gender Identity Not on file Sexual Orientation Not on file documented as of this encounter Plan of Treatment Upcoming Encounters Date Type Department Care Team (Late st Contact Info) Description 04/04/2025 11:00 AM CAREER PLACEMENT SPECIALIST Office Visit [facility] Oncology and Hematology - [place] [address] [facility] [address] [place] [address] [place] [address] [place] [address] [address] [place] [address] documented as of this encounter Visit Diagnoses Diagnosis Hypopotassemia- Primary documented in this encounter Care Teams Speech Therapy Teacher Relationship Specialty Start Date End Date Abrahan Mcgee MD [address] [place] [address] PCP - General Family Practice 04/03/24 documented as of this encounter
--- OUTSIDE RECORDS SUMMARY | 2025-01-21 21:31 | XMS_ITS | Clinical Summary ---
Author Organization [facility] Address [address] [place] [address] Care Team Providers Care Drywall Carrier Name Role Phone Krishna Medina MD Unavailable [phone] Lina Yates NP Unavailable [phone] Abrahan Mcgee MD Primary Care Provider [phone] Allergies Active Allergy Reactions Criticality Noted Date [...] 2021 Assessment & Plan (02/02/2022 4:10 PM CLERK CASHIER): Well healed. Removed BCL today without complications. [...] 04/28/2019 Assessment & Plan (04/28/2019 12:28 PM CLERK CASHIER): Monitor. Discussed signs and symptoms of Retinal tears or detachments. Pt understands to call immediately if noted. Subjective vision disturbance 04/28/2019 Assessment & Plan (04/28/2019 12:29 PM CLERK CASHIER): Seeing pink dots No hemorrhages or retinal [...] changes. Assessment & Plan (04/28/2019 12:27 PM CLERK CASHIER): Monitor closely Retinal hole of left eye [...] Chronic pancreatitis 04/02/2003 Overview (06/03/2016): Pancreatitis chronic Surgical History Surgery Date Site/Laterality Comments OTHER [...] on file Legal 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:42 PM CLERK CASHIER Gender Identity Not on file Sexual Orientation [...] Completed 019, 11/29/2016, 10/10/2014 Insurance [employer] MEDICARE AETNA MEDICARE AET MEDICARE Advance Directives For more information, please contact: [phone] * Full Code (Latest Code Status on File) Date Activated Date Inactivated Comments 11/10/2021 10:25 AM 11/10/2021 3:44 PM * Full Code Date Activated Date Inactivated Comments 09/06/2019 9:17 AM 09/06/2019 3:17 PM * Full Code Date Activated Date Inactivated Comments 07/11/2018 9:22 AM 07/11/2018 4:10 PM Care Teams Drywall Carrier Relationship Specialty Start Date End Date Abrahan Mcgee MD [address] [place] [address] PCP - General Family Medicine 06/06/24 Krishna Medina MD [address] [address] 03/17/19 Lina Yates NP [address] [address] Nurse Practitioner 11/12/22
--- OUTSIDE RECORDS SUMMARY | 2025-01-21 21:31 | XMS_ITS | Encounter Summary ---
Author Organization [facility] Address [address] [place] [address] Care Team Providers Care Geotechnical Laboratory Technician Name Role Phone Abrahan Mcgee MD Primary Care Provider [phone] Encounter Details Date Type Department Care Team (Late st Contact Info) Description 06/05/2004 Outpatient Historical HIS [facility] Andre Ernst MD NO ADDRESS ON FILE Social History Tobacco Use Types Packs/Day Years Used Date Smoking Tobacco: Never Assessed Comments Unknown Sex and Gender Information Value Date Recorded Sex Assigned at Not on file Legal Sex Female 3:33 AM AUDIO EXPERIENCE EXPERT Gender Identity Not on file Sexual Orientation Not on file documented as of this encounter Plan of Treatment Upcoming Encounters Date Type Department Care Team (Late st Contact Info) Description 04/04/2025 11:00 AM AUDIO EXPERIENCE EXPERT Office Visit [facility] Oncology and Hematology - [place] [address] [place] [address] [address] [place] [address] Prince Mir MD [address] [facility] [address] [place] [address] documented as of this encounter Visit Diagnoses Not on filedocumented in this encounter Care Teams Geotechnical Laboratory Technician Relationship Specialty Start Date End Date Abrahan Mcgee MD [address] [place] [address] PCP - General Family Practice 04/03/24 documented as of this encounter
--- OUTSIDE RECORDS SUMMARY | 2025-01-21 21:31 | XMS_ITS | Encounter Summary ---
Author Organization [facility] Address [address] [place] [address] Care Team Providers Care Weapons Designer Name Role Phone Abrahan Mcgee MD Primary Care Provider Encounter Details Date Type Department Care Team (Late st Contact Info) Description 06/11/2005 Outpatient Historical HIS [facility] INTERN[facility] Andre Ernst MD NO ADDRESS ON FILE Social History Tobacco Use Types Packs/Day Years Used Date Smoking Tobacco: Never Assessed Comments Unknown Sex and Gender Information Value Date Recorded Sex Assigned at Not on file Legal Sex Female 3:33 AM CREATIVE MANAGER Gender Identity Not on file Sexual Orientation Not on file documented as of this encounter Plan of Treatment Upcoming Encounters Date Type Department Care Team (Late st Contact Info) Description 04/04/2025 11:00 AM CREATIVE MANAGER Office Visit [facility] Oncology and Hematology - [place] [address] [place] [address] [address] [place] [address] Prince Mir MD [address] [facility] [address] [place] [address] documented as of this encounter Visit Diagnoses Not on filedocumented in this encounter Care Teams Weapons Designer Relationship Specialty Start Date End Date Abrahan Mcgee MD [address] [place] [address] PCP - General Family Practice 04/03/24 documented as of this encounter
--- OUTSIDE RECORDS SUMMARY | 2025-01-21 21:31 | XMS_ITS | Encounter Summary ---
Author Organization [facility] Address [address] [facility] Attn: Epic Prelude ADT [place] [address] Care Team Providers Care Marketing Underwriter Name Role Phone Abrahan Mcgee MD Primary [...] file Legal Sex Female 3:33 AM VP OF GLOBAL MARKETING Gender Identity Not on file Sexual Orientation Not on file documented as of this encounter Plan of Treatment Upcoming Encounters Date Type Department Care Team (Late st Contact Info) Description 04/04/2025 11:00 AM VP OF GLOBAL MARKETING Office Visit [facility] Oncology and Hematology - [place] [address] [place] [address] [address] [place] [address] [place] [address] [place] [address] [address] [place] [address] documented as of this encounter Visit Diagnoses Not on filedocumented in this encounter Care Teams Marketing Underwriter Relationship Specialty Start Date End Date Abrahan Mcgee MD [address] [place] [address] PCP - General Family Practice 04/03/24 documented as of this encounter
--- OUTSIDE RECORDS SUMMARY | 2025-01-21 21:31 | XMS_ITS | Encounter Summary ---
Author Organization [facility] Address [address] [place] [address] Care Team Providers Care Sanitation Director Name Role Phone Abrahan Mcgee MD Primary Care Provider [phone] Encounter Details Date Type Department Care Team (Latest Contact Info) Description 01/06/2006 Outpatient Historical HIS [facility] ЕКАТЕРИНА Ernst, Andre Guardado MD NO ADDRESS ON FILE Cervicalgia (Primary Dx) Social History Tobacco Use Types Packs/Day Years Used Date Smoking Tobacco: Never Assessed Comments Unknown Sex and Gender Information Value Date Recorded Sex Assigned at Not on file Legal Sex Female 3:33 AM JAVASCRIPT WEB DEVELOPER Gender Identity Not on file Sexual Orientation Not on file documented as of this encounter Plan of Treatment Upcoming Encounters Date Type Department Care Team (Late st Contact Info) Description 04/04/2025 11:00 AM JAVASCRIPT WEB DEVELOPER Office Visit [facility] Oncology and Hematology - [place] [address] [facility] [address] [place] [address] Prince Mir MD [address] [facility] [address] [place] [address] documented as of this encounter Visit Diagnoses Diagnosis Cervicalgia- Primary documented in this encounter Care Teams Sanitation Director Relationship Specialty Start Date End Date Abrahan Mcgee MD [address] [place] [address] PCP - General Family Practice 04/03/24 documented as of this encounter
--- OUTSIDE RECORDS SUMMARY | 2025-01-21 21:31 | XMS_ITS | Encounter Summary ---
Author Organization [facility] Address [address] [place] [address] Care Team Providers Care Felt Dyeing Machine Tender Name Role Phone Abrahan Mcgee MD Primary Care Provider [phone] Encounter Details Date Type Department Care Team (Late st Contact Info) Description 02/24/2005 Outpatient Historical [facility] Support [facility] ([facility]) [address] [place] [address] Carmine Morales MD NO ADDRESS ON FILE Social History Tobacco Use Types Packs/Day Years Used Date Smoking Tobacco: Never Assessed Comments Unknown Sex and Gender Information Value Date Recorded Sex Assigned at Not on file Legal Sex Female 3:33 AM DCS ENGINEER Gender Identity Not on file Sexual Orientation Not on file documented as of this encounter Plan of Treatment Upcoming Encounters Date Type Department Care Team (Late st Contact Info) Description 04/04/2025 11:00 AM DCS ENGINEER Office Visit [facility] Oncology and Hematology - [place] [address] [place] [address] [address] [place] [address] Prince Mir MD [address] [facility] [address] [place] [address] documented as of this encounter Visit Diagnoses Not on filedocumented in this encounter Care Teams Felt Dyeing Machine Tender Relationship Specialty Start Date End Date Abrahan Mcgee MD [address] [place] [address] PCP - General Family Practice 04/03/24 documented as of this encounter
--- OUTSIDE RECORDS SUMMARY | 2025-01-21 21:31 | XMS_ITS | Encounter Summary ---
Author Organization [facility] Address [address] [place] [address] Care Team Providers Care Security Installation Sales Technician Name Role Phone Abrahan Mcgee MD Primary Care Provider Encounter Details Date Type Department Care Team (Late st Contact Info) Description 11/26/2000 Outpatient Historical HIS [facility] Andre Ernst MD NO ADDRESS ON FILE Social History Tobacco Use Types Packs/Day Years Used Date Smoking Tobacco: Never Assessed Comments Unknown Sex and Gender Information Value Date Recorded Sex Assigned at Not on file Legal Sex Female 3:33 AM PRINTER FLOOR COVERING ASSISTANT Gender Identity Not on file Sexual Orientation Not on file documented as of this encounter Plan of Treatment Upcoming Encounters Date Type Department Care Team (Late st Contact Info) Description 04/04/2025 11:00 AM PRINTER FLOOR COVERING ASSISTANT Office Visit [facility] Oncology and Hematology - [place] [address] [place] [address] [address] [place] [address] Prince Mir MD [address] [facility] [address] [place] [address] documented as of this encounter Visit Diagnoses Not on filedocumented in this encounter Care Teams Security Installation Sales Technician Relationship Specialty Start Date End Date Abrahan Mcgee MD [address] [place] [address] PCP - General Family Practice 04/03/24 documented as of this encounter
--- OUTSIDE RECORDS SUMMARY | 2025-01-21 21:31 | XMS_ITS | Encounter Summary ---
Author Organization [facility] Address [address] [place] [address] Care Team Providers Care Social Work Nurse Name Role Phone Abrahan Mcgee MD Primary Care Provider [phone] Encounter Details Date Type Department Care Team (Latest Contact Info) Description 03/22/2001 Outpatient Historical HIS [facility] ЕКАТЕРИНА Ernst, Andre Guardado MD NO ADDRESS ON FILE BENIGN HYPERTENSION (Primary Dx) Social History Tobacco Use Types Packs/Day Years Used Date Smoking Tobacco: Never Assessed Comments Unknown Sex and Gender Information Value Date Recorded Sex Assigned at Not on file Legal Sex Female 3:33 AM BUSINESS DEVELOPMENT ASSOCIATE Gender Identity Not on file Sexual Orientation Not on file documented as of this encounter Plan of Treatment Upcoming Encounters Date Type Department Care Team (Late st Contact Info) Description 04/04/2025 11:00 AM BUSINESS DEVELOPMENT ASSOCIATE Office Visit [facility] Oncology and Hematology - [place] [address] [facility] [address] [place] [address] [place] [address] [place] [address] [address] [place] [address] documented as of this encounter Visit Diagnoses Diagnosis Essential hypertension, benign- Primary documented in this encounter Care Teams Social Work Nurse Relationship Specialty Start Date End Date Abrahan Mcgee MD [address] [place] [address] PCP - General Family Practice 04/03/24 documented as of this encounter
--- OUTSIDE RECORDS SUMMARY | 2025-01-21 21:31 | XMS_ITS | Encounter Summary ---
Author Organization [facility] Address [address] [place] [address] Care Team Providers Care Real Estate Legal Assistant Name Role Phone Abrahan Mcgee MD Primary Care Provider [phone] Encounter Details Date Type Department Care Team [...] on file Legal Sex Female 3:33 AM CHARGER TESTER Gender Identity Not on file Sexual Orientation Not on file documented as of this encounter Plan of Treatment Upcoming Encounters Date Type Department Care Team (Late st Contact Info) Description 04/04/2025 11:00 AM CHARGER TESTER Office Visit [facility] Oncology and Hematology - [place] [address] [place] [address] [address] [place] [address] Prince Mir MD [address] [place] [address] [address] [place] [address] documented as of this encounter Visit Diagnoses Diagnosis Open wound of scalp, without mention of complication- Primary documented in this encounter Care Teams Real Estate Legal Assistant Relationship Specialty Start Date End Date Abrahan Mcgee MD [address] [place] [address] PCP - General Family Practice 04/03/24 documented as of this encounter
--- OUTSIDE RECORDS SUMMARY | 2025-01-21 21:31 | XMS_ITS | Encounter Summary ---
Author Organization [facility] Address [address] [place] [address] Care Team Providers Care Project Manager Senior Name Role Phone Abrahan Mcgee MD Primary Care Provider [phone] Encounter Details Date Type Department Care Team (Late st Contact Info) Description 08/15/2003 Outpatient Historical HIS [facility] DEPT Meryl Perry MD [address] [address] ABDOMINAL PAIN RUQ (Primary Dx) Social History Tobacco Use Types Packs/Day Years Used Date Smoking Tobacco: Never Assessed Comments Unknown Sex and Gender Information Value Date Recorded Sex Assigned at Not on file Legal Sex Female 3:33 AM CULINARY ART TEACHER Gender Identity Not on file Sexual Orientation Not on file documented as of this encounter Plan of Treatment Upcoming Encounters Date Type Department Care Team (Late st Contact Info) Description 04/04/2025 11:00 AM CULINARY ART TEACHER Office Visit [facility] Oncology and Hematology - [place] [address] [place] [address] [address] [place] [address] Prince Mir MD [address] [facility] [address] [place] [address] documented as of this encounter Visit Diagnoses Diagnosis Abdominal pain, right upper quadrant- Primary documented in this encounter Care Teams Project Manager Senior Relationship Specialty Start Date End Date Abrahan Mcgee MD [address] [place] [address] PCP - General Family Practice 2/3/25 documented as of this encounter
--- OUTSIDE RECORDS SUMMARY | 2025-01-21 21:31 | XMS_ITS | Encounter Summary ---
Author Organization [facility] Address [address] [place] [address] Care Team Providers Care Fudge Candy Maker Name Role Phone Abrahan Mcgee MD Primary Care Provider [phone] Encounter Details Date Type Department Care Team (Latest Contact Info) Description 02/07/2004 Outpatient Historical HIS [facility] ЕКАТЕРИНА Ernst, Andre Guardado MD NO ADDRESS ON FILE BENIGN HYPERTENSION (Primary Dx) Social History Tobacco Use Types Packs/Day Years Used Date Smoking Tobacco: Never Assessed Comments Unknown Sex and Gender Information Value Date Recorded Sex Assigned at Not on file Legal Sex Female 3:33 AM RETAIL CUSTOMER SERVICE REPRESENTATIVE Gender Identity Not on file Sexual Orientation Not on file documented as of this encounter Plan of Treatment Upcoming Encounters Date Type Department Care Team (Late st Contact Info) Description 04/04/2025 11:00 AM RETAIL CUSTOMER SERVICE REPRESENTATIVE Office Visit [facility] Oncology and Hematology - [place] [address] [facility] [address] [place] [address] [place] [address] [place] [address] [address] [place] [address] documented as of this encounter Visit Diagnoses Diagnosis Essential hypertension, benign- Primary documented in this encounter Care Teams Fudge Candy Maker Relationship Specialty Start Date End Date Abrahan Mcgee MD [address] [place] [address] PCP - General Family Practice 04/03/24 documented as of this encounter
--- OUTSIDE RECORDS SUMMARY | 2025-01-21 21:31 | XMS_ITS | Encounter Summary ---
Author Organization [facility] Address [address] [place] [address] Care Team Providers Care Airport Clerk Name Role Phone Abrahan Mcgee MD Primary Care Provider [phone] Encounter Details Date Type Department Care Team (Latest Contact Info) Description 06/11/2005 Outpatient Historical HIS [facility] Andre Vidal MD NO ADDRESS ON FILE Headache (Primary Dx) Social History Tobacco Use Types Packs/Day Years Used Date Smoking Tobacco: Never Assessed Comments Unknown Sex and Gender Information Value Date Recorded Sex Assigned at Not on file Legal Sex Female 3:33 AM IN SHOP SERVICE TECHNICIAN Gender Identity Not on file Sexual Orientation Not on file documented as of this encounter Plan of Treatment Upcoming Encounters Date Type Department Care Team (Late st Contact Info) Description 04/04/2025 11:00 AM IN SHOP SERVICE TECHNICIAN Office Visit [facility] Oncology and Hematology - [place] [address] [facility] [address] [place] [address] Prince Mir MD [address] [facility] [address] [place] [address] documented as of this encounter Procedures Procedure Name Priority Date/Time Associated Diagnosis Comments CBC WITH DIFFERENTIAL Routine 06/11/2005 11:29 AM CDT CBC WITH DIFFERENTIAL Routine 06/11/2005 11:29 AM CDT COMPREHENSIVE METABOLIC PANEL Routine 06/11/2005 11:29 AM CDT documented in this encounter Results * CBC WITH DIFFERENTIAL (06/11/2005 11:29 AM CDT) Pathologist [facility] NEUTROPHILS 65 45 - 70 % INTERFAC [...] ORDERABLES Final Re sult Performing Organization Address [facility] Phone Number INTERFACE SYSTEM Refer to clinic/hospital department * (ABNORMAL) CBC WITH DIFFERENTIAL (06/11/2005 11:29 AM CDT) [facility] WBC 8.1 4.0 - 9.8 K/uL INTERFACE [...] ORDERABLES Final Re sult Performing Organization Address [facility] [...] Headache documented in this encounter Care Teams Airport Clerk Relationship Specialty Start Date End Date Abrahan Mcgee MD [address] [place] [address] PCP - General Family Practice 04/03/24 documented as of this encounter
--- OUTSIDE RECORDS SUMMARY | 2025-01-21 21:31 | XMS_ITS | Encounter Summary ---
Author Organization [facility] Address [address] [place] [address] Care Team Providers Care Teacher Private Name Role Phone Abrahan Mcgee MD Primary Care Provider Encounter Details Date Type Department Care Team (Late st Contact Info) Description 02/07/2004 Outpatient Historical HIS [facility] Andre Ernst MD NO ADDRESS ON FILE Social History Tobacco Use Types Packs/Day Years Used Date Smoking Tobacco: Never Assessed Comments Unknown Sex and Gender Information Value Date Recorded Sex Assigned at Not on file Legal Sex Female 3:33 AM WAREHOUSE CHECKER Gender Identity Not on file Sexual Orientation Not on file documented as of this encounter Plan of Treatment Upcoming Encounters Date Type Department Care Team (Late st Contact Info) Description 04/04/2025 11:00 AM WAREHOUSE CHECKER Office Visit [facility] Oncology and Hematology - [place] [address] [place] [address] [address] [place] [address] Prince Mir MD [address] [facility] [address] [place] [address] documented as of this encounter Visit Diagnoses Not on filedocumented in this encounter Care Teams Teacher Private Relationship Specialty Start Date End Date Abrahan Mcgee MD [address] [place] [address] PCP - General Family Practice 04/03/24 documented as of this encounter
--- OUTSIDE RECORDS SUMMARY | 2025-01-21 21:31 | XMS_ITS | Encounter Summary ---
Author Organization [facility] Address [address] [place] [address] Care Team Providers Care Plater Helper Name Role Phone Abrahan Mcgee MD Primary Care Provider Encounter Details Date Type Department Care Team (Late st Contact Info) Description 07/06/2003 Outpatient Historical [facility] Andre Ernst MD NO ADDRESS ON FILE Social History Tobacco Use Types Packs/Day Years Used Date Smoking Tobacco: Never Assessed Comments Unknown Sex and Gender Information Value Date Recorded Sex Assigned at Not on file Legal Sex Female 3:33 AM LEATHER CUTTER Gender Identity Not on file Sexual Orientation Not on file documented as of this encounter Plan of Treatment Upcoming Encounters Date Type Department Care Team (Late st Contact Info) Description 04/04/2025 11:00 AM LEATHER CUTTER Office Visit [facility] Oncology and Hematology - [place] [address] [place] [address] [address] [place] [address] Prince Mir MD [address] [facility] [address] [place] [address] documented as of this encounter Visit Diagnoses Not on filedocumented in this encounter Care Teams Plater Helper Relationship Specialty Start Date End Date Abrahan Mcgee MD [address] [place] [address] PCP - General Family Practice 04/03/24 documented as of this encounter
--- OUTSIDE RECORDS SUMMARY | 2025-01-21 21:31 | XMS_ITS | Encounter Summary ---
Author Organization [facility] Address [address] [place] [address] Care Team Providers Care Tractor Engine Assembler Name Role Phone Abrahan Mcgee MD Primary Care Provider [phone] Encounter Details Date Type Department Care Team (Latest Contact Info) Description 07/06/2003 Outpatient Historical HIS [facility] ЕКАТЕРИНА Ernst, Andre Guardado MD NO ADDRESS ON FILE BENIGN HYPERTENSION (Primary Dx) Social History Tobacco Use Types Packs/Day Years Used Date Smoking Tobacco: Never Assessed Comments Unknown Sex and Gender Information Value Date Recorded Sex Assigned at Not on file Legal Sex Female 3:33 AM ELECTRONICS MANUFACTURER Gender Identity Not on file Sexual Orientation Not on file documented as of this encounter Plan of Treatment Upcoming Encounters Date Type Department Care Team (Late st Contact Info) Description 04/04/2025 11:00 AM ELECTRONICS MANUFACTURER Office Visit [facility] Oncology and Hematology - [place] [address] [facility] [address] [place] [address] [place] [address] [place] [address] [address] [place] [address] documented as of this encounter Visit Diagnoses Diagnosis Essential hypertension, benign- Primary documented in this encounter Care Teams Tractor Engine Assembler Relationship Specialty Start Date End Date Abrahan Mcgee MD [address] [place] [address] PCP - General Family Practice 04/03/24 documented as of this encounter
--- OUTSIDE RECORDS SUMMARY | 2025-01-21 21:31 | XMS_ITS | Encounter Summary ---
Author Organization [facility] Address [address] [place] [address] Care Team Providers Care Climbing Guide Name Role Phone Abrahan Mcgee MD Primary Care Provider [phone] Encounter Details Date Type Department Care Team (Latest Contact Info) Description 08/15/2002 Outpatient Historical HIS [facility] ЕКАТЕРИНА Ernst, Andre Guardado MD NO ADDRESS ON FILE JOINT PAIN-L/LEG (Primary Dx) Social History Tobacco Use Types Packs/Day Years Used Date Smoking Tobacco: Never Assessed Comments Unknown Sex and Gender Information Value Date Recorded Sex Assigned at Not on file Legal Sex Female 3:33 AM E COMMERCE MERCHANT Gender Identity Not on file Sexual Orientation Not on file documented as of this encounter Plan of Treatment Upcoming Encounters Date Type Department Care Team (Late st Contact Info) Description 04/04/2025 11:00 AM E COMMERCE MERCHANT Office Visit [facility] Oncology and Hematology - [place] [address] [facility] [address] [place] [address] Prince Mir MD [address] [place] [address] [address] [place] [address] documented as of this encounter Visit Diagnoses Diagnosis Pain in joint, lower leg- Primary documented in this encounter Care Teams Climbing Guide Relationship Specialty Start Date End Date Abrahan Mcgee MD [address] [place] [address] PCP - General Family Practice 04/03/24 documented as of this encounter
--- OUTSIDE RECORDS SUMMARY | 2025-01-21 21:31 | XMS_ITS | Encounter Summary ---
Author Organization [facility] Address [address] [place] [address] Care Team Providers Care Jukebox Checker Name Role Phone Abrahan Mcgee MD Primary Care Provider Encounter Details Date Type Department Care Team (Late st Contact Info) Description 03/16/2002 Outpatient Historical HIS [facility] Andre Ernst MD NO ADDRESS ON FILE Social History Tobacco Use Types Packs/Day Years Used Date Smoking Tobacco: Never Assessed Comments Unknown Sex and Gender Information Value Date Recorded Sex Assigned at Not on file Legal Sex Female 3:33 AM TAKE OUT WAITER Gender Identity Not on file Sexual Orientation Not on file documented as of this encounter Plan of Treatment Upcoming Encounters Date Type Department Care Team (Late st Contact Info) Description 04/04/2025 11:00 AM TAKE OUT WAITER Office Visit [facility] Oncology and Hematology - [place] [address] [place] [address] [address] [place] [address] Prince Mir MD [address] [facility] [address] [place] [address] documented as of this encounter Visit Diagnoses Not on filedocumented in this encounter Care Teams Jukebox Checker Relationship Specialty Start Date End Date Abrahan Mcgee MD [address] [place] [address] PCP - General Family Practice 04/03/24 documented as of this encounter
--- OUTSIDE RECORDS SUMMARY | 2025-01-21 21:32 | XMS_ITS | Encounter Summary ---
Author Organization [facility] Address [address] [place] [address] Care Team Providers Care Web Knitter Name Role Phone Abrahan Mcgee MD Primary Care Provider [phone] Encounter Details Date Type Department Care Team (Late st Contact Info) Description 11/27/2004 Outpatient Historical HIS [facility] ЕКАТЕРИНА Perry, Meryl Pereira MD [address] [address] ABDOMINAL PAIN RLQ (Primary Dx) Social History Tobacco Use Types Packs/Day Years Used Date Smoking Tobacco: Never Assessed Comments Unknown Sex and Gender Information Value Date Recorded Sex Assigned at Not on file Legal Sex Female 3:33 AM FIRE EQUIPMENT OPERATOR Gender Identity Not on file Sexual Orientation Not on file documented as of this encounter Plan of Treatment Upcoming Encounters Date Type Department Care Team (Late st Contact Info) Description 04/04/2025 11:00 AM FIRE EQUIPMENT OPERATOR Office Visit [facility] Oncology and Hematology - [place] [address] [facility] [address] [place] [address] Prince Mir MD [address] [facility] [address] [place] [address] documented as of this encounter [...] FETOPROTEIN TUMOR MARKER (11/27/2004 11:54 AM CDT) [facility] ALPHA FETOPROTEIN TUMOR MARKER 2.2 ng/mL INTERFACE SYSTEM Comment: This test was performed using the DPC Immulite 2000 Assay. REFERENCE RANGE: <6.1 THE USE OF AFP A TUMOR MARKER IN FEMALES IS NOT RECOMMENDED. Lab test performed by: [facility] [place] [address] EVELINA AMOS MD 11/27/2004 11:5 4 AM CDT Meryl Perry MD CHEMISTRY ORDERABLES Fin al Result INTERFACE SYSTEM Refer to clinic/hospital department * CBC WITH DIFFERENTIAL (11/27/2004 11:54 AM CDT) [facility] NEUTROPHILS 67 45 - 70 % INTERFAC [...] ORDERABLES Fi nal Result Performing Organization Address City/State/[facility] Co de Phone Number INTERFACE [...] ORDERABLES Fi nal Result Performing Organization Address [facility] Phone Number INTERFACE SYSTEM Refer to clinic/hospital department * (ABNORMAL) AMYLASE (11/27/2004 11:54 AM CDT) AMYLASE 141(H) 28 - 100 U/L INTERFACE SYSTEM 11/27/2004 11:5 4 AM CDT Meryl Perry MD CHEMISTRY ORDERABLES Fin al Result Performing Organization Address City/[facility] Co de Phone Number INTERFACE SYSTEM Refer to clinic/hospital department * (ABNORMAL) LIPASE (11/27/2004 11:54 AM CDT) LIPASE 97(H) 13 - 60 U/L INTERFAC E SYSTEM 11/27/2004 11:5 4 AM CDT Meryl Perry MD CHEMISTRY ORDERABLES Fin al Result Performing Organization Address [facility] Phone Number INTERFACE SYSTEM Refer to clinic/hospital department * C-REACTIVE PROTEIN (11/27/2004 11:54 AM CDT) CRP 0.5 0.0 - 0.8 mg/dL INTERFACE SYSTEM 11/27/2004 11:5 4 AM CDT Meryl Perry MD CHEMISTRY ORDERABLES Fin al Result Performing Organization Address [facility] Phone Number INTERFACE SYSTEM Refer [...] ORDERABLES Fin al Result Performing Organization Address [facility] Phone Number INTERFACE SYSTEM Refer [...] documented in this encounter Care Teams Web Knitter Relationship Specialty Start Date End Date Abrahan Mcgee MD [address] [place] [address] PCP - General Family Practice 04/03/24 documented as of this encounter
--- OUTSIDE RECORDS SUMMARY | 2025-01-21 21:32 | XMS_ITS | Clinical Summary ---
Author Organization [facility] Address [address] [place] [address] Care Team Providers Care Collision Worker Name Role Phone Luigi Nicole PA-C Primary [...] (eight) hours as needed. 07/08/19 Active ZENPEP 21546-24530 units CAPSULE ENTERIC COATED PARTICLES Take by [...] mouth nightly. Every other month Active Pancrelipase, Zut-Xscc-Hgis, 08289-[address] units CAPSULE ENTERIC COATED PARTICLES Take 50,000 [...] = 0.6 oz pur e alcohol) [facility] Utilities Answer Date Recorded In the [...] any time in the past 12 m [facility], were you homeless or living in a care home (including now)? No 08/20/2023 Comments No [...] Health Maintenance Due Date Last Done Comments COVID-19 Vaccine (#1) 10/12/1940 DTaP, Tdap and Td Vaccines ( 1 - Tdap) 10/12/1954 Zoster Vaccines (1 of 2) 10/12/1985 Annual Medicare Wellness Visit 10/12/2000 RSV Immunization or 60+ Years (1 - 1-dose 75+ series) 10/12/2010 Pneumococcal Vaccine: 50+ Ye ars (2 of 2 - PCV20 or PCV21) 12/17/2019 12/16/2018 Influenza Adult (#1) 2024 01/20/2019 Hepatitis A Vaccines Aged Out No long er eligible based on patient's age to complete this topic Meningococcal B Vaccine Aged Out No l onger eligible based on patient's age to complete this topic Meningococcal Vaccine Aged Out No morena aviva eligible based on patient's age to complete this topic RSV Immunizations Under 20 Months Aged Out No longer eligible based on patient's age to complete this topic Insurance [facility] Advance Directives * Full Code (Latest Code Status on File) Date Activated Date Inactivated Comments 08/20/2023 10:05 AM 08/21/2023 1:30 PM Care Teams Collision Worker Relationship Specialty Start Date End Date Luigi Nicole PA-C [address] [place] [address] [place] [address] PCP - General PHYSICIAN PURCHASING EXPEDITOR 08/20/23 Luigi Nicole PA-C [address] [place] [address] [place] [address] PHYSICIAN PURCHASING EXPEDITOR 08/20/23
--- OUTSIDE RECORDS SUMMARY | 2025-01-21 21:32 | XMS_ITS | Encounter Summary ---
Author Organization [facility] Address [address] [place] [address] Care Team Providers Care Early Breastfeeding Care Specialist Name Role Phone Abrahan Mcgee MD Primary Care Provider [phone] Encounter Details Date Type Department Care Team (Late st Contact Info) Description 02/23/2005 Outpatient Historical [facility] [address] [address] Deisy Garcia MD [address] [address] Social History Tobacco Use Types Packs/Day Years Used Date Smoking Tobacco: Never Assessed Comments Unknown Sex and Gender Information Value Date Recorded Sex Assigned at Not on file Legal Sex Female 3:33 AM ELECTRICIAN APPRENTICE Gender Identity Not on file Sexual Orientation Not on file documented as of this encounter Plan of Treatment Upcoming Encounters Date Type Department Care Team (Late st Contact Info) Description 04/04/2025 11:00 AM ELECTRICIAN APPRENTICE Office Visit [facility] Oncology and Hematology - [place] [address] [place] [address] [address] [place] [address] Prince Mir MD [address] [facility] [address] [place] [address] documented as of this encounter Visit Diagnoses Not on filedocumented in this encounter Care Teams Early Breastfeeding Care Specialist Relationship Specialty Start Date End Date Abrahan Mcgee MD [address] [place] [address] PCP - General Family Practice 04/03/24 documented as of this encounter
--- OUTSIDE RECORDS SUMMARY | 2025-01-21 21:32 | XMS_ITS | Encounter Summary ---
Author Organization [facility] Address [address] [place] [address] Care Team Providers Care Computing Architect Name Role Phone Abrahan Mcgee MD [...] on file Legal Sex Female 3:33 AM ADAPTIVE PHYSICAL EDUCATION TEACHER Gender Identity Not on file Sexual Orientation Not on file documented as of this encounter Plan of Treatment Upcoming Encounters Date Type Department Care Team (Late st Contact Info) Description 04/04/2025 11:00 AM ADAPTIVE PHYSICAL EDUCATION TEACHER Office Visit [facility] Oncology and Hematology - [place] [address] [place] [address] [address] [place] [address] [place] [address] [place] [address] [address] [place] [address] documented as of this encounter Visit Diagnoses Diagnosis Allergic rhinitis due to pollen- Primary documented in this encounter Care Teams Computing Architect Relationship Specialty Start Date End Date Abrahan Mcgee MD [address] [place] [address] PCP - General Family Practice 04/03/24 documented as of this encounter
--- OUTSIDE RECORDS SUMMARY | 2025-01-21 21:32 | XMS_ITS | Encounter Summary ---
Author Organization [facility] Address [address] [place] [address] Care Team Providers Care Artillery Or Naval Gunfire Observer Name Role Phone Abrahna Mcgee MD Primary Care Provider [phone] Encounter Details Date Type Department Care Team (Latest Contact Info) Description 11/27/2004 Outpatient Historical HIS [facility] Sneed, Oscar Medeiros MD NO ADDRESS ON FILE SCREENING MAMM-MAILG NEOPL NEC (Primary Dx) Social History Tobacco Use Types Packs/Day Years Used Date Smoking Tobacco: Never Assessed Comments Unknown Sex and Gender Information Value Date Recorded Sex Assigned at Not on file Legal Sex Female 3:33 AM ASSISTANT CASE MANAGER Gender Identity Not on file Sexual Orientation Not on file documented as of this encounter Plan of Treatment Upcoming Encounters Date Type Department Care Team (Late st Contact Info) Description 04/04/2025 11:00 AM ASSISTANT CASE MANAGER Office Visit [facility] Oncology and Hematology - [address] [place] [address] Prince Mir MD [address] [place] [address] [address] [place] [address] documented as of this encounter Visit Diagnoses Diagnosis Other screening mammogram- Primary documented in this encounter Care Teams Artillery Or Naval Gunfire Observer Relationship Specialty Start Date End Date Abrahan Mcgee MD [address] [place] [address] PCP - General Family Practice 04/03/24 documented as of this encounter
--- OUTSIDE RECORDS SUMMARY | 2025-01-21 21:32 | XMS_ITS | Clinical Summary ---
Author Organization [facility] Care Team Providers Care Supervisor Telephone Clerks Name Role Phone Unavailable Primary Care Provider [...]
--- OUTSIDE RECORDS SUMMARY | 2025-01-21 21:32 | XMS_ITS | Encounter Summary ---
Author Organization [facility] Address [address] [place] [address] Care Team Providers Care Boilermaker Ship Name Role Phone Abrahan Mcgee MD Primary Care Provider [phone] Encounter Details Date Type Department Care Team (Late st Contact Info) Description 12/17/2004 Outpatient Historical HIS [facility] Meryl Perry MD [address] [address] BENIGN NEOPLASM LG BOWEL (Primary Dx) Social History Tobacco Use Types Packs/Day Years Used Date Smoking Tobacco: Never Assessed Comments Unknown Sex and Gender Information Value Date Recorded Sex Assigned at Not on file Legal Sex Female 3:33 AM BOWLING BALL GRADER Gender Identity Not on file Sexual Orientation Not on file documented as of this encounter Plan of Treatment Upcoming Encounters Date Type Department Care Team (Late st Contact Info) Description 04/04/2025 11:00 AM BOWLING BALL GRADER Office Visit [facility] Oncology and Hematology - [place] [address] [place] [address] [address] [place] [address] Prince Mir MD [address] [facility] [address] [place] [address] documented as of this encounter Visit Diagnoses Diagnosis Benign neoplasm of colon- Primary documented in this encounter Care Teams Boilermaker Ship Relationship Specialty Start Date End Date Abrahan Mcgee MD [address] [place] [address] PCP - General Family Practice 04/03/24 documented as of this encounter
--- OUTSIDE RECORDS SUMMARY | 2025-01-21 21:32 | XMS_ITS | Encounter Summary ---
Author Organization [facility] Address [address] [place] [address] Care Team Providers Care Ad Taker Name Role Phone Abrahan Mcgee MD Primary Care Provider [phone] Encounter Details Date Type Department Care Team (Late st Contact Info) Description 02/23/2005 Outpatient Historical [facility] [address] [place] [id number] Guero Malhotra MD NO ADDRESS ON FILE Social History Tobacco Use Types Packs/Day Years Used Date Smoking Tobacco: Never Assessed Comments Unknown Sex and Gender Information Value Date Recorded Sex Assigned at Not on file Legal Sex Female 3:33 AM PHOTOGRAPHIC ENGINEER Gender Identity Not on file Sexual Orientation Not on file documented as of this encounter Plan of Treatment Upcoming Encounters Date Type Department Care Team (Late st Contact Info) Description 04/04/2025 11:00 AM PHOTOGRAPHIC ENGINEER Office Visit [facility] Oncology and Hematology - [place] [address] [place] [address] [address] [place] [address] Prince Mir MD [address] [facility] [address] [place] [address] documented as of this encounter Visit Diagnoses Not on filedocumented in this encounter Care Teams Ad Taker Relationship Specialty Start Date End Date Abrahan Mcgee MD [address] [place] [address] PCP - General Family Practice 04/03/24 documented as of this encounter
--- OUTSIDE RECORDS SUMMARY | 2025-01-21 21:32 | XMS_ITS | Encounter Summary ---
Author Organization [facility] Address [address] [place] [address] Care Team Providers Care Wire Mill Operator Name Role Phone Abrahan Mcgee MD Primary Care Provider [phone] Encounter Details Date Type Department Care Team (Latest Contact Info) Description 02/23/2005 Inpatient Historical [facility] Alcon Valadez MD [address] [address] Deisy Garcia MD [address] [address] CHEST PAIN NOS (Primary Dx) Social History Tobacco Use Types Packs/Day Years Used Date Smoking Tobacco: Never Assessed Comments Unknown Sex and Gender Information Value Date Recorded Sex Assigned at Not on file Legal Sex Female 3:33 AM HAY BALER Gender Identity Not on file Sexual Orientation Not on file documented as of this encounter Plan of Treatment Upcoming Encounters Date Type Department Care Team (Late st Contact Info) Description 04/04/2025 11:00 AM HAY BALER Office Visit [facility] Oncology and Hematology - [place] [address] [facility] [address] [place] [address] Prince Mir MD [address] [facility] [address] [place] [address] documented as of this encounter Procedures Procedure Name Priority Date/Time Associated Diagnosis Comments CBC WITH DIFFERENTIAL Routine 02/25/2005 4:30 AM HAY BALER CBC WITH DIFFERENTIAL Routine 02/25/2005 4:30 AM HAY BALER C-REACTIVE PROTEIN Routine 02/25/2005 4: 30 AM HAY BALER T3 FREE Routine 02/25/2005 4:30 AM HAY BALER T4 FREE Routine 02/25/2005 4:30 AM HAY BALER BASIC METABOLIC PANEL Routine 02/25/2005 4:30 AM HAY BALER TSH Routine 02/24/2005 4:35 AM HAY BALER LIPASE Routine 02/24/2005 4:35 AM HAY BALER AMYLASE Routine 02/24/2005 4:35 AM HAY BALER LIPID PANEL Routine 02/24/2005 4:35 AM HAY BALER BASIC METABOLIC PANEL Routine 02/24/2005 4:35 AM HAY BALER TROPONIN (W/REFLEX CKMB/CK) Routine 02/24/2005 4:15 AM HAY BALER TROPONIN (W/REFLEX CKMB/CK) Routine 02/23/2005 10:15 PM HAY BALER URINALYSIS W/REFLEX MICROSCOPIC Routine 02/23/2005 8:31 PM HAY BALER TROPONIN (W/REFLEX CKMB/CK) Routine 02/23/2005 1:28 PM HAY BALER CBC WITH DIFFERENTIAL Routine 02/23/2005 12:46 PM HAY BALER CBC WITH DIFFERENTIAL Routine 02/23/2005 12:46 PM HAY BALER LIPASE Routine 02/23/2005 12:46 PM HAY BALER AMYLASE Routine 02/23/2005 12:46 PM HAY BALER COMPREHENSIVE METABOLIC PANEL Routine 02/23/2005 12:46 PM HAY BALER documented in this encounter Results * CBC WITH DIFFERENTIAL (02/25/2005 4:30 AM HAY BALER) NEUTROPHILS 52 45 - 70 % INTERFAC [...] 0.20 K/uL INTERFACE SYSTEM 02/25/2005 4:30 AM HAY BALER Alcon Valadez MD HEMATOLOGY ORDERABLES Final Re sult Performing Organization Address [facility] de Phone Number INTERFACE SYSTEM Refer to clinic/hospital department * (ABNORMAL) CBC WITH DIFFERENTIAL (02/25/2005 4:30 AM HAY BALER) WBC 7.4 4.0 - 9.8 K/uL INTERFACE [...] 12.4 fL INTERFACE SYSTEM 02/25/2005 4:30 AM HAY BALER us Alcon Valadez MD HEMATOLOGY ORDERABLES Final Re sult Performing Organization Address [facility] de Phone Number INTERFACE SYSTEM Refer to clinic/hospital department * T3 FREE (02/25/2005 4:30 AM HAY BALER) T3 FREE 2.9 2.5 - 4.4 pg/mL INTERFACE SYSTEM 02/25/2005 4:30 AM HAY BALER us Alcon Valadez MD CHEMISTRY ORDERABLES Final Res ult Performing Organization Address [facility] de Phone Number INTERFACE SYSTEM Refer to clinic/hospital department * T4 FREE (02/25/2005 4:30 AM HAY BALER) T4 FREE 1.3 0.9 - 1.7 ng/dL INTERFACE SYSTEM 02/25/2005 4:30 AM HAY BALER Result An Valadez MD CHEMISTRY ORDERABLES Final Res ult Performing Organization Address [facility] de Phone Number INTERFACE SYSTEM Refer to clinic/hospital department * C-REACTIVE PROTEIN (02/25/2005 4:30 AM HAY BALER) CRP 0.6 0.0 - 0.8 mg/dL INTERFACE SYSTEM 02/25/2005 4:30 AM HAY BALER Result An Valadez MD CHEMISTRY ORDERABLES Final Res ult Performing Organization Address [facility] de Phone Number INTERFACE SYSTEM Refer to clinic/hospital department * BASIC METABOLIC PANEL (02/25/2005 4:30 AM HAY BALER) GLUCOSE 89 65 - 109 mg/dL INTERFACE [...] 30 mmol/L INTERFACE SYSTEM 02/25/2005 4:30 AM HAY BALER Result An Valadez MD CHEMISTRY ORDERABLES Final Res ult Performing Organization Address [facility] Phone Number INTERFACE SYSTEM Refer to clinic/hospital department * (ABNORMAL) LIPASE (02/24/2005 4:35 AM HAY BALER) LIPASE 90(H) 13 - 60 U/L INTERFAC E SYSTEM 02/24/2005 4:35 AM HAY BALER Nora Sivaprasad CHEMISTRY ORDERABLES Final Resu lt Performing Organization Address [facility] Phone Number INTERFACE SYSTEM Refer to clinic/hospital department * (ABNORMAL) AMYLASE (02/24/2005 4:35 AM HAY BALER) AMYLASE 118(H) 28 - 100 U/L INTERFACE SYSTEM 02/24/2005 4:35 AM HAY BALER Nora Sivaprasad CHEMISTRY ORDERABLES Final Resu lt Performing Organization Address [facility] Phone Number INTERFACE SYSTEM Refer to clinic/hospital department * (ABNORMAL) TSH (02/24/2005 4:35 AM HAY BALER) TSH 4.33(H) 0.27 - 4.20 uU/mL INTERFACE SYSTEM 02/24/2005 4:35 AM HAY BALER Nora Sivaprasad CHEMISTRY ORDERABLES Final Resu lt Performing Organization Address [facility] Phone Number INTERFACE SYSTEM Refer to clinic/hospital department * LIPID PANEL (02/24/2005 4:35 AM HAY BALER) LIPID PANEL COMMENT See below INTERFACE SYSTEM [...] section for risk classifications. 02/24/2005 4:35 AM HAY BALER [facility] [employer] CHEMISTRY ORDERABLES Final Resu lt Performing Organization Address [facility] de Phone Number INTERFACE SYSTEM Refer to clinic/hospital department * BASIC METABOLIC PANEL (02/24/2005 4:35 AM HAY BALER) GLUCOSE 100 65 - 109 mg/dL INTERFACE [...] 30 mmol/L INTERFACE SYSTEM 02/24/2005 4:35 AM HAY BALER [facility] CHEMISTRY ORDERABLES Final Resu lt Performing Organization Address [facility] de Phone Number INTERFACE SYSTEM Refer to clinic/hospital department * TROPONIN (W/REFLEX CKMB/CK) (02/24/2005 4:15 AM HAY BALER) TROPONIN T <0.01 <=0.03 ng/mL INTERFACE SYSTEM TROPONIN T INTERP Negative INTERFACE SYSTEM 02/24/2005 4:15 AM HAY BALER Nora Sivaprasad CHEMISTRY ORDERABLES Final Resu lt Performing Organization Address [facility] Phone Number INTERFACE SYSTEM Refer to clinic/hospital department * TROPONIN (W/REFLEX CKMB/CK) (02/23/2005 10:15 PM HAY BALER) TROPONIN T <0.01 <=0.03 ng/mL INTERFACE SYSTEM TROPONIN T INTERP Negative INTERFACE SYSTEM 02/23/2005 10:1 5 PM HAY BALER [facility] Sivaprasad CHEMISTRY ORDERABLES Final Resu lt Performing Organization Address [facility] Phone Number INTERFACE SYSTEM Refer to clinic/hospital department * (ABNORMAL) URINALYSIS (02/23/2005 8:31 PM HAY BALER) COLOR UA Yellow INTERFACE SYSTEM CLARITY UA [...] 2-5 /HPF INTERFACE SYSTEM 02/23/2005 8:31 PM HAY BALER Nora Sivaprasad URINE ORDERABLES Final Result Performing Organization Address [facility] Phone Number INTERFACE SYSTEM Refer to clinic/hospital department * TROPONIN (W/REFLEX CKMB/CK) (02/23/2005 1:28 PM HAY BALER) TROPONIN T <0.01 <=0.03 ng/mL INTERFACE SYSTEM TROPONIN T INTERP Negative INTERFACE SYSTEM 02/23/2005 1:28 PM HAY BALER us Erika P Er CHEMISTRY ORDERABLES Final Resul t Performing Organization Address [facility] Phone Number INTERFACE SYSTEM Refer to clinic/hospital department * CBC WITH DIFFERENTIAL (02/23/2005 12:46 PM HAY BALER) NEUTROPHILS 70 45 - 70 % INTERFAC [...] K/uL INTERFACE SYSTEM 02/23/2005 12:4 6 PM HAY BALER us Jasbir Sol MD HEMATOLOGY ORDERABLES Final Re sult Performing Organization Address [facility] Phone Number INTERFACE SYSTEM Refer to clinic/hospital department * (ABNORMAL) CBC WITH DIFFERENTIAL (02/23/2005 12:46 PM HAY BALER) WBC 9.3 4.0 - 9.8 K/uL INTERFACE [...] fL INTERFACE SYSTEM 02/23/2005 12:4 6 PM HAY BALER Jasbir Sol MD HEMATOLOGY ORDERABLES Final Re sult Performing Organization Address [facility] Phone Number INTERFACE SYSTEM Refer to clinic/hospital department * (ABNORMAL) LIPASE (02/23/2005 12:46 PM HAY BALER) LIPASE 91(H) 13 - 60 U/L INTERFAC E SYSTEM 02/23/2005 12:4 6 PM HAY BALER Jasbir Sol MD CHEMISTRY ORDERABLES Final Res ult Performing Organization Address [facility] Phone Number INTERFACE SYSTEM Refer to clinic/hospital department * (ABNORMAL) AMYLASE (02/23/2005 12:46 PM HAY BALER) AMYLASE 134(H) 28 - 100 U/L INTERFACE SYSTEM 02/23/2005 12:4 6 PM HAY BALER Jasbir Sol MD CHEMISTRY ORDERABLES Final Res ult Performing Organization Address [facility] Phone Number INTERFACE SYSTEM Refer to clinic/hospital department * (ABNORMAL) COMPREHENSIVE METABOLIC PANEL (02/23/2005 12:46 PM HAY BALER) GLUCOSE 115(H) 65 - 109 mg/dL INTERFACE [...] mmol/L INTERFACE SYSTEM 02/23/2005 12:4 6 PM HAY BALER us Jasbir Sol MD CHEMISTRY ORDERABLES Final Res ult INTERFACE SYSTEM Refer to clinic/hospital department documented in this encounter Visit Diagnoses Diagnosis Chest pain, unspecified- Primary documented in this encounter Care Teams Wire Mill Operator Relationship Specialty Start Date End Date Abrahan Mcgee MD [address] [place] [address] PCP - General Family Practice 04/03/24 documented as of this encounter
--- OUTSIDE RECORDS SUMMARY | 2025-01-21 21:32 | XMS_ITS | Encounter Summary ---
Author Organization [facility] Address [address] [place] [address] Care Team Providers Care Payroll Supervisor Name Role Phone Abrahan Mcgee MD Primary Care Provider Encounter Details Date Type Department Care Team (Late st Contact Info) Description 07/09/2005 Outpatient Historical HIS [facility] Andre Ernst MD NO ADDRESS ON FILE Social History Tobacco Use Types Packs/Day Years Used Date Smoking Tobacco: Never Assessed Comments Unknown Sex and Gender Information Value Date Recorded Sex Assigned at Not on file Legal Sex Female 3:33 AM BODYWORK THERAPIST Gender Identity Not on file Sexual Orientation Not on file documented as of this encounter Plan of Treatment Upcoming Encounters Date Type Department Care Team (Late st Contact Info) Description 04/04/2025 11:00 AM BODYWORK THERAPIST Office Visit [facility] Oncology and Hematology - [place] [address] [place] [address] [address] [place] [address] Prince Mir MD [address] [facility] [address] [place] [address] documented as of this encounter Visit Diagnoses Not on filedocumented in this encounter Care Teams Payroll Supervisor Relationship Specialty Start Date End Date Abrahan Mcgee MD [address] [place] [address] PCP - General Family Practice 04/03/24 documented as of this encounter
--- OUTSIDE RECORDS SUMMARY | 2025-01-21 21:32 | XMS_ITS | Encounter Summary ---
Author Organization [facility] Address [address] [place] [address] Care Team Providers Care Equipment Specialist Name Role Phone Abrahan Mcgee MD Primary Care Provider [phone] Encounter Details Date Type Department Care Team (Late st Contact Info) Description 12/05/2004 Outpatient Historical HIS MRI DEPT Meryl Perry MD [address] [address] UTERINE LEIOMYOMA NOS (Primary Dx) Social History Tobacco Use Types Packs/Day Years Used Date Smoking Tobacco: Never Assessed Comments Unknown Sex and Gender Information Value Date Recorded Sex Assigned at Not on file Legal Sex Female 3:33 AM SEGREGATOR Gender Identity Not on file Sexual Orientation Not on file documented as of this encounter Plan of Treatment Upcoming Encounters Date Type Department Care Team (Late st Contact Info) Description 04/04/2025 11:00 AM SEGREGATOR Office Visit [facility] Oncology and Hematology - [place] [address] [place] [address] [address] [place] [address] Prince Mir MD [address] [facility] [address] [place] [address] documented as of this encounter Visit Diagnoses Diagnosis Leiomyoma of uterus, unspecified- Primary documented in this encounter Care Teams Equipment Specialist Relationship Specialty Start Date End Date Abrahan Mcgee MD [address] [place] [address] PCP - General Family Practice 04/03/24 documented as of this encounter
--- OUTSIDE RECORDS SUMMARY | 2025-01-21 21:32 | XMS_ITS | Encounter Summary ---
Author Organization [facility] Address [address] [place] [address] Care Team Providers Care Branch Operations Coordinator Name Role Phone Abrahan Mcgee MD Primary Care Provider Encounter Details Date Type Department Care Team (Late st Contact Info) Description 09/16/2004 Outpatient Historical [facility] Andre Ernst MD NO ADDRESS ON FILE Social History Tobacco Use Types Packs/Day Years Used Date Smoking Tobacco: Never Assessed Comments Unknown Sex and Gender Information Value Date Recorded Sex Assigned at Not on file Legal Sex Female 3:33 AM MOVIE STUNT PERFORMER Gender Identity Not on file Sexual Orientation Not on file documented as of this encounter Plan of Treatment Upcoming Encounters Date Type Department Care Team (Late st Contact Info) Description 04/04/2025 11:00 AM MOVIE STUNT PERFORMER Office Visit [facility] Oncology and Hematology - [place] [address] [place] [address] [address] [place] [address] Prince Mir MD [address] [facility] [address] [place] [address] documented as of this encounter Visit Diagnoses Not on filedocumented in this encounter Care Teams Branch Operations Coordinator Relationship Specialty Start Date End Date Abrahan Mcgee MD [address] [place] [address] PCP - General Family Practice 04/03/24 documented as of this encounter
--- OUTSIDE RECORDS SUMMARY | 2025-01-21 21:32 | XMS_ITS | Encounter Summary ---
Author Organization [facility] Address [address] [place] [address] Care Team Providers Care Skilled Nursing Facilities Professional Name Role Phone Abrahan Mcgee MD Primary Care Provider [phone] Encounter Details Date Type Department Care Team (Latest Contact Info) Description 09/16/2004 Outpatient Historical HIS [facility] Andre Vidal MD NO ADDRESS ON FILE BENIGN HYPERTENSION (Primary Dx) Social History Tobacco Use Types Packs/Day Years Used Date Smoking Tobacco: Never Assessed Comments Unknown Sex and Gender Information Value Date Recorded Sex Assigned at Not on file Legal Sex Female 3:33 AM HEAD TURBINE OPERATOR Gender Identity Not on file Sexual Orientation Not on file documented as of this encounter Plan of Treatment Upcoming Encounters Date Type Department Care Team (Late st Contact Info) Description 04/04/2025 11:00 AM HEAD TURBINE OPERATOR Office Visit [facility] Oncology and Hematology - [place] [address] [facility] [address] [place] [address] Prince Mir MD [address] [facility] [address] [place] [address] documented as of this encounter [...] ORDERABLES Final Re sult Performing Organization Address [facility] de Phone Number INTERFACE SYSTEM [...] ORDERABLES Final Res ult Performing Organization Address [facility] de Phone Number INTERFACE SYSTEM [...] ORDERABLES Final Res ult Performing Organization Address [facility] Phone Number INTERFACE SYSTEM Refer to clinic/hospital department documented in this encounter Visit Diagnoses Diagnosis Essential hypertension, benign- Primary documented in this encounter Care Teams Skilled Nursing Facilities Professional Relationship Specialty Start Date End Date Abrahan Mcgee MD [address] [place] [address] PCP - General Family Practice 04/03/24 documented as of this encounter
--- OUTSIDE RECORDS SUMMARY | 2025-01-21 21:32 | XMS_ITS | Encounter Summary ---
Author Organization [facility] Address [address] [place] [address] Care Team Providers Care Woodworking Machine Operator Name Role Phone Abrahan Mcgee MD Primary Care Provider [phone] Encounter Details Date Type Department Care Team (Late st Contact Info) Description 12/18/2004 Outpatient Historical HIS [facility] Andre Ernst MD NO ADDRESS ON FILE Social History Tobacco Use Types Packs/Day Years Used Date Smoking Tobacco: Never Assessed Comments Unknown Sex and Gender Information Value Date Recorded Sex Assigned at Not on file Legal Sex Female 3:33 AM PLUSH WEAVER Gender Identity Not on file Sexual Orientation Not on file documented as of this encounter Plan of Treatment Upcoming Encounters Date Type Department Care Team (Late st Contact Info) Description 04/04/2025 11:00 AM PLUSH WEAVER Office Visit [facility] Oncology and Hematology - [place] [address] [place] [address] [address] [place] [address] Prince Mir MD [address] [facility] [address] [place] [address] documented as of this encounter Visit Diagnoses Not on filedocumented in this encounter Care Teams Woodworking Machine Operator Relationship Specialty Start Date End Date Abrahan Mcgee MD [address] [place] [address] PCP - General Family Practice 04/03/24 documented as of this encounter
--- NOTE | 2025-01-21 21:34 | PC.NURSE ---
Pt ambulatory to bathroom with steady gait.
[2025-01-21 21:35] VITALS: BP 191/68; PULSE 78; RESP 18; TEMP 36.2; O2SAT 98
[2025-01-21 22:14] VITALS: BP 205/71; PULSE 67; RESP 20; O2SAT 98
--- OUTSIDE RECORDS SUMMARY | 2025-01-21 22:48 | XMS_ITS | Clinical Summary ---
Author Organization [facility] Address [address] [place] [address] Care Team Providers Care Cork Tipper Name Role Phone Krishna Medina MD Unavailable [phone] Lina Yates NP Unavailable [phone] Abrahan Mcgee MD Primary Care Provider [phone] Allergies Active Allergy Reactions Criticality Noted Date [...] 2021 Assessment & Plan (02/02/2022 4:10 PM SHIFT BOSS): Well healed. Removed BCL today without complications. [...] 04/28/2019 Assessment & Plan (04/28/2019 12:28 PM SHIFT BOSS): Monitor. Discussed signs and symptoms of Retinal tears or detachments. Pt understands to call immediately if noted. Subjective vision disturbance 04/28/2019 Assessment & Plan (04/28/2019 12:29 PM SHIFT BOSS): Seeing pink dots No hemorrhages or retinal [...] changes. Assessment & Plan (04/28/2019 12:27 PM SHIFT BOSS): Monitor closely Retinal hole of left eye [...] on file Legal 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:42 PM SHIFT BOSS Gender Identity Not on file Sexual Orientation [...] Advance Directives For more information, please contact: [phone] * Full Code (Latest Code Status on File) Date Activated Date Inactivated Comments 11/10/2021 10:25 AM 11/10/2021 3:44 PM * Full Code Date Activated Date Inactivated Comments 09/06/2019 9:17 AM 09/06/2019 3:17 PM * Full Code Date Activated Date Inactivated Comments 07/11/2018 9:22 AM 07/11/2018 4:10 PM Care Teams Cork Tipper Relationship Specialty Start Date End Date Abrahan Mcgee MD [address] [place] [address] PCP - General Family Medicine 06/06/24 Krishna Medina MD [address] [address] 03/17/19 Lina Yates NP [address] [address] Nurse Practitioner 11/12/22
--- OUTSIDE RECORDS SUMMARY | 2025-01-21 22:48 | XMS_ITS | Encounter Summary ---
Author Organization [facility] Address [address] [facility] Attn: Epic Prelude ADT FRIDA SPARROW [address] Care Team Providers Care Hopper Attendant Name Role Phone Abrahan Mcgee MD Primary Care Provider [phone] Encounter Details Date Type Department Care Team (Late st Contact Info) Description 07/31/1991 Outpatient Historical Andre Ernst MD NO ADDRESS ON FILE Social History Tobacco Use Types Packs/Day Years Used Date Smoking Tobacco: Never Assessed Comments Unknown Sex and Gender Information Value Date Recorded Sex Assigned at Not on file Legal Sex Female 3:33 AM DELIVERY ASSOCIATE Gender Identity Not on file Sexual Orientation Not on file documented as of this encounter Plan of Treatment Upcoming Encounters Date Type Department Care Team (Late st Contact Info) Description 04/04/2025 11:00 AM DELIVERY ASSOCIATE Office Visit [facility] Oncology and Hematology - [place] [address] [place] [address] [address] [place] [address] [place] [address] [place] [address] [address] [place] [address] documented as of this encounter Visit Diagnoses Not on filedocumented in this encounter Care Teams Hopper Attendant Relationship Specialty Start Date End Date Abrahan Mcgee MD [address] [place] [address] PCP - General Family Practice 04/03/24 documented as of this encounter
--- OUTSIDE RECORDS SUMMARY | 2025-01-21 22:48 | XMS_ITS | Encounter Summary ---
Author Organization [facility] Address [address] [facility] [place] [address] Care Team Providers Care Wireless Engineer Name Role Phone Abrahan Mcgee MD Primary Care Provider [phone] Encounter Details Date Type Department Care Team (Late st Contact Info) Description 10/26/2024 Lab Requisition [facility] - DermPath Lab [address] [place] [address] Abrahan Mcgee MD [address] [place] [address] Social History Tobacco Use Types Packs/Day Years Used Date Smoking Tobacco: Never Assessed Comments Unknown Sex and Gender Information Value Date Recorded Sex Assigned at Not on file Legal Sex Female 6:23 PM PREPRINT ANALYST Gender Identity Not on file Sexual Orientation Not on file documented as of this encounter Plan of Treatment Not on file documented as of this encounter Procedures Procedure Name Priority Date/Time Associated Diagnosis Comments DERMATOPATHOLOGY Routine 10/25/2024 12:0 0 AM CDT documented in this encounter Results * DERMATOPATHOLOGY (10/25/2024 12:00 AM CDT) Case Report Dermatopathology Report Case: [id number] Authorizing Provider: Abrahan Mcgee MD Collected: 10/25/2024 12:00 AM Ordering Location: [facility] - Received: 10/26/2024 02:31 PM DermPath Lab Pathologist: Marshal Mckeon MD Specimens: A) - Skin, top of scalp B) - Skin, left scalp 12:22 PM [facility] DERMATOPATHOLOGY LABORATORY Final Diagnosis Specimen A. SKIN, top of scalp: PIGMENTED SEBORRHEIC KERATOSIS (L82.1) PRESENT AT MARGIN Specimen B. SKIN, left scalp: PARAKERATOSIS (L85.9) (see microscopic description and comment) 12:22 PM [facility] DERMATOPATHOLOGY LABORATORY at 1222 CDT Clinical History A-B: Changing Lesion Please check margins 12:22 PM [facility] DERMATOPATHOLOGY LABORATORY Gross Description Specimen A: [...] mm in aggregate. Jar 0+. 12:22 PM [facility] DERMATOPATHOLOGY LABORATORY Microscopic Description Specimen A. [...] keratoses or squamous cell carcinomas. 12:22 PM [facility] DERMATOPATHOLOGY LABORATORY Disclaimer An external and [...] purposes. Billing Codes Specimen Charges Stain Charges 31529 73210 1 1 12:22 PM T DERMATOPATHOLOGY LABORATORY Embedded Images 12:22 PM CDT DERMATOPATHOLOGY LABORATORY Pathology/Cytology TISSUE SPECIMEN FROM SKIN / Unknown 10/25/2024 10/26/2024 2:31 PM CDT Miscellaneous samples (specimen) TISSUE SPECIMEN FROM SKIN / Unknown 10/25/2024 10/26/2024 2:31 PM CDT Abrahan Mcgee MD LAB - PATHOLOGY/CYTOLOGY ORDE DRISS Final Result DERMATOPATHOLOGY LABORATORY [facility] - Department of Dermatology [facility] Specialized Medicine [address] [place] [address], [address] [phone] documented in this encounter Visit Diagnoses Not on filedocumented in this encounter Care Teams Wireless Engineer Relationship Specialty Start Date End Date Abrahan Mcgee MD [address] [place] [address] PCP - General 07/23/09 documented as of this encounter
--- OUTSIDE RECORDS SUMMARY | 2025-01-21 22:48 | XMS_ITS | Clinical Summary ---
Author Organization [facility] Address [address] [place] [address] Care Team Providers Care Ware Finisher Name Role Phone Abrahan Mcgee MD Primary Care Provider Source Comments [facility],non-owned Affiliates and Associated Physician Practices is amultiple site organization consisting of ambulatory clinics and hospital sitesin [place], [place], [place] and [place]. This disclosure is being madepursuant to the Care Everywhere program and may not contain all informatio navailable regarding this patient. Last updated 17.[facility] Encounters Date Type Department Care Team Description 10/26/2024 Lab Requisition [facility] - DermPath Lab [address] [place] [address] Abrahan Mcgee MD from Last 3 Months Social History Tobacco Use Types Packs/Day Years Used Date Smoking Tobacco: Never Assessed Comments Unknown Sex and Gender Information Value Date Recorded Sex Assigned at Not on file Legal Sex Female 6:23 PM TIE INSPECTOR Gender Identity Not on file Sexual [...] AM CDT) Case Report Dermatopathology Report Case: [id number] Authorizing Provider: Abrahan Mcgee MD Collected: 10/25/2024 12:00 AM Ordering Location: [facility] - Received: 10/26/2024 02:31 PM [...] characteristic determined by the Dermatopathology Laboratory at [facility], directed by Dr. Troy Mckeon. These tests need not be, and therefore are not, approved by the [place] Food and Drug Administration. The tests are used for clinical purposes. Billing Codes Specimen Charges Stain Charges 72321 [id number] 1 1 12:22 PM CDT DERMATOPATHOLOGY LABORATORY Embedded Images 12:22 PM CDT DERMATOPATHOLOGY LABORATORY Pathology/Cytology TISSUE SPECIMEN FROM SKIN / Unknown 10/25/2024 10/26/2024 2:31 PM CDT Miscellaneous samples (specimen) TISSUE SPECIMEN FROM SKIN / Unknown 10/25/2024 10/26/2024 2:31 PM CDT us Abrahan Shazia Mcgee MD LAB - PATHOLOGY/CYTOLOGY GARRISON NAQVI Final Result DERMATOPATHOLOGY LABORATORY [facility] - Department of Dermatology [facility] Medicine [address] [place] [address], [address] [place] [address], [facility] [phone] from Last 3 Months Insurance [facility] MANAGED MEDICARE ADV AETNA MEDICARE ADV AETNA MEDICARE ADV SELF PAY NO INSURANCE Member Subscriber Plan / Payer (Ef fective for All Dates) Name:Marshal Sanders Member ID:Not on file Relation to Subscriber:Not on file Name:Marshal SANDERS Subscriber ID:Not on file Address: [address] [place] [address] Payer ID:Not on file Group ID:Not on file Type:Self Pay Address: [place], [place] AETNA MEDICARE ADV SELF PAY NO INSURANCE Member Subscriber Plan / Payer (Ef fective for All Dates) Name:Marshal Sanders Member ID:Not on file Relation to Subscriber:Not on file Name:Marshal SANDERS Subscriber ID:Not on file Address: [address] [place] [address] Payer ID:Not on file Group ID:Not on file Type:Self Pay Address: [place], [place] * Guarantor: Marshal SANDERS Account Type Relation to Patient Date of Phone Billing Address Personal/Family Spouse Care Teams Ware Finisher Relationship Specialty Start Date End Date Abrahan Mcgee MD [address] [place] [address] PCP - General 07/23/09
--- OUTSIDE RECORDS SUMMARY | 2025-01-21 22:48 | XMS_ITS | Encounter Summary ---
Author Organization [facility] Address [address] [facility] Attn: Epic Prelude ADT FRIDA SPARROW [address] Care Team Providers Care Addiction Professional Name Role Phone Abrahan Mcgee MD [...] on file Legal Sex Female 3:33 AM SOUND MIXER Gender Identity Not on file Sexual Orientation Not on file documented as of this encounter Plan of Treatment Upcoming Encounters Date Type Department Care Team (Late st Contact Info) Description 04/04/2025 11:00 AM SOUND MIXER Office Visit [facility] Oncology and Hematology - [place] [address] [place] [address] Dr [address] [place] [address] [place] [address] [place] [address] [address] [place] [address] documented as of this encounter Visit Diagnoses Not on filedocumented in this encounter Care Teams Addiction Professional Relationship Specialty Start Date End Date Abrahan Mcgee MD [address] [place] [address] PCP - General Family Practice 04/03/24 documented as of this encounter
--- OUTSIDE RECORDS SUMMARY | 2025-01-21 22:48 | XMS_ITS | Encounter Summary ---
Author Organization [facility] Address [address] [facility] Attn: Epic Prelude ADT FRIDA SPARROW [address] Care Team Providers Care Winter Sports Manager Name Role Phone Abrahan Mcgee MD [...] file Legal Sex Female 3:33 AM CUTTER WOODWIND REEDS Gender Identity Not on file Sexual Orientation Not on file documented as of this encounter Plan of Treatment Upcoming Encounters Date Type Department Care Team (Late st Contact Info) Description 04/04/2025 11:00 AM CUTTER WOODWIND REEDS Office Visit [facility] Oncology and Hematology - [place] [address] [place] [address] Dr [address] [place] [address] [place] [address] [place] [address] [address] [place] [address] documented as of this encounter Visit Diagnoses Not on filedocumented in this encounter Care Teams Winter Sports Manager Relationship Specialty Start Date End Date Abrahan Mcgee MD [address] [place] [address] PCP - General Family Practice 04/03/24 documented as of this encounter
--- OUTSIDE RECORDS SUMMARY | 2025-01-21 22:48 | XMS_ITS | Encounter Summary ---
Author Organization [facility] Address [address] [facility] Attn: Epic Prelude ADT FRIDA SPARROW [address] Care Team Providers Care Distilling Department Supervisor Name Role Phone Abrahan Mcgee MD [...] file Legal Sex Female 3:33 AM DIRECTOR MARKET INTELLIGENCE Gender Identity Not on file Sexual Orientation Not on file documented as of this encounter Plan of Treatment Upcoming Encounters Date Type Department Care Team (Late st Contact Info) Description 04/04/2025 11:00 AM DIRECTOR MARKET INTELLIGENCE Office Visit [facility] Oncology and Hematology - [place] [address] [place] [address] Dr [address] [place] [address] [place] [address] [place] [address] [address] [place] [address] documented as of this encounter Visit Diagnoses Not on filedocumented in this encounter Care Teams Distilling Department Supervisor Relationship Specialty Start Date End Date Abrahan Mcgee MD [address] [place] [address] PCP - General Family Practice 04/03/24 documented as of this encounter
--- OUTSIDE RECORDS SUMMARY | 2025-01-21 22:48 | XMS_ITS | Encounter Summary ---
Author Organization [facility] Address [address] [place] [address] Phone Care Team Providers Care Production Repairer Name Role Phone Krishna Medina MD Unavailable [phone] Luigi Nicole Primary Care Provider Lina Yates NP Unavailable [phone] Yogesh Corbett DO Primary Care Provider [phone] Abrahan Mcgee MD Primary Care Provider Encounter Details Date Type Department Care Team (Late st Contact Info) Description 02/05/2022 Telephone [facility] 5th [place] [address] [place] [address] Akila Toussaint Social History Tobacco [...] on file Legal 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:42 PM DESIGN PRINTING MACHINE SETTER Gender Identity Not on file Sexual Orientation Not on file documented as of this encounter Plan of Treatment Not on file documented as of this encounter Visit Diagnoses Not on filedocumented in this encounter Care Teams Production Repairer Relationship Specialty Start Date End Date Luigi Nicole [place] [address] [address] PCP - General Physician Medical Researcher 04/09/21 12/01/23 Yogesh Corbett DO [address] [place] [address] PCP - General Internal Medicine 12/02/23 06/05/24 Abrahan Mcgee MD [address] [place] [address] PCP - General Family Medicine 06/06/24 Krishna Medina MD [address] [address] 03/17/19 Lina Yates NP [address] [place] [address] Nurse Practitioner 11/12/22 documented as of this encounter
--- OUTSIDE RECORDS SUMMARY | 2025-01-21 22:48 | XMS_ITS | Encounter Summary ---
Author Organization [facility] Address [address] [facility] Attn: Epic Prelude ADT FRIDA SPARROW [address] Care Team Providers Care Smocker Name Role Phone Abrahan Mcgee MD Primary Care Provider [phone] Encounter Details Date Type Department Care Team (Late st Contact Info) Description 05/19/1993 Outpatient Historical Andre Ernst MD NO ADDRESS ON FILE Social History Tobacco Use Types Packs/Day Years Used Date Smoking Tobacco: Never Assessed Comments Unknown Sex and Gender Information Value Date Recorded Sex Assigned at Not on file Legal Sex Female 3:33 AM JOB DEVELOPMENT SPECIALIST Gender Identity Not on file Sexual Orientation Not on file documented as of this encounter Plan of Treatment Upcoming Encounters Date Type Department Care Team (Late st Contact Info) Description 04/04/2025 11:00 AM JOB DEVELOPMENT SPECIALIST Office Visit [facility] Oncology and Hematology - [place] [address] [place] [address] Dr [address] [place] [address] [place] [address] [place] [address] [address] [place] [address] documented as of this encounter Visit Diagnoses Not on filedocumented in this encounter Care Teams Smocker Relationship Specialty Start Date End Date Abrahan Mcgee MD [address] [place] [address] PCP - General Family Practice 04/03/24 documented as of this encounter
--- OUTSIDE RECORDS SUMMARY | 2025-01-21 22:48 | XMS_ITS | Clinical Summary ---
Author Organization [facility] Address [address] [place] [address] Phone Care Team Providers Care Census Taker Name Role Phone Abrahan Mcgee MD Primary Care Provider [phone] Allergies Active Allergy Reactions Criticality Noted Date [...] 9 Active fluticasone propionate (FLONASE) 50 mcg/spray Street[place], Suspension nasal inhaler Administer 2 Sprays in [...] file Legal Sex Female 3:33 AM ADVANCED SOLUTIONS ARCHITECT Gender Identity Not on file Sexual [...] Contact Info) Description 04/04/2025 11:00 AM ADVANCED SOLUTIONS ARCHITECT Office Visit [facility] Oncology and Hematology - [place] [address] [facility] [address] [place] [address] Prince Mir MD [address] [facility] [address] [place] [address] Health Maintenance Due Date Last Done Comments DTAP/TDAP/TD VACCINES (1 - Tdap) 10/12/1954 ZOSTER VACCINE (1 of 2) 10/12/1985 OSTEOPOROSIS SCREENING 10/12/2000 RSV VACCINE (60+ or ) (1 - 1-dose 75+ series) 10/12/2010 INFLUENZA VACCINE (#1) 2024 01/20/2019, 2013 PNEUMOCOCCAL VACCINE 50+ YEARS Completed 12/16/2018 , 10/10/2014 Insurance AETNA [facility] AETNA PPO MCR Care Teams Census Taker Relationship Specialty Start Date End Date Abrahan Mcgee MD [address] [place] [address] PCP - General Family Practice 04/03/24
--- OUTSIDE RECORDS SUMMARY | 2025-01-21 22:48 | XMS_ITS | Encounter Summary ---
Author Organization [facility] Address [address] [facility] Attn: Epic Prelude ADT FRIDA SPARROW [address] Care Team Providers Care Collection Advisor Name Role Phone Abrahan Mcgee MD [...] on file Legal Sex Female 3:33 AM DENTAL OFFICE RECEPTIONIST Gender Identity Not on file Sexual Orientation Not on file documented as of this encounter Plan of Treatment Upcoming Encounters Date Type Department Care Team (Late st Contact Info) Description 04/04/2025 11:00 AM DENTAL OFFICE RECEPTIONIST Office Visit [facility] Oncology and Hematology - [place] [address] [place] [address] [address] [place] [address] [place] [address] [place] [address] [address] [place] [address] documented as of this encounter Visit Diagnoses Not on filedocumented in this encounter Care Teams Collection Advisor Relationship Specialty Start Date End Date Abrahan Mcgee MD [address] [place] [address] PCP - General Family Practice 04/03/24 documented as of this encounter
--- OUTSIDE RECORDS SUMMARY | 2025-01-21 22:48 | XMS_ITS | Encounter Summary ---
Author Organization [facility] Health Address [address] [facility] [place] [address] Care Team Providers Care Co Supervisor Grounds And Landscape Name Role Phone Abrahan Mcgee MD Primary Care Provider [phone] Encounter Details Date Type Department Care Team (Late st Contact Info) Description 08/13/2021 Lab Requisition [facility] DermPath Lab [address] [place] [address] Jose G Llamas MD [address] [place] [address] Social History Tobacco Use Types Packs/Day Years Used Date Smoking Tobacco: Never Assessed Comments Unknown Sex and Gender Information Value Date Recorded Sex Assigned at Not on file Legal Sex Female 6:23 PM DRESS CAP MAKER Gender Identity Not on file Sexual Orientation Not on file documented as of this encounter Plan of Treatment Not on file documented as of this encounter Procedures Procedure Name Priority Date/Time Associated Diagnosis Comments DERMATOPATHOLOGY Routine 08/12/2021 12:0 0 AM CDT documented in this encounter Results * DERMATOPATHOLOGY (08/12/2021 12:00 AM CDT) Case Report Dermatopathology Report Case: [id number] Authorizing Provider: Jose G Llamas MD Collected: 08/12/2021 12:00 AM Ordering Location: [facility] DermPath Lab Received: 08/13/2021 10:45 [...] specimen consists of a shave biopsy measuring [id number]. Jar 0. 2 10:59 AM CDT DERMATOPATHOLOGY [...] characteristic determined by the Dermatopathology Laboratory at [facility], directed by Dr. Troy Mckeon. These tests need not be, and therefore are not, approved by the [place] Food and Drug Administration. The tests are used for clinical purposes. Billing Codes Specimen Charges Stain Charges 31647 1 2 10:59 AM CDT DERMATOPATHOLOGY LABORATORY Embedded Images 2 10:59 AM CDT DERMATOPATHOLOGY LABORATORY Pathology/Cytolog y TISSUE SPECIMEN FROM SKIN / Unknown 08/12/2021 08/13/2021 10:45 AM CDT us Jose G Llamas MD LAB - PATHOLOGY/CYTOLOGY ORD ERABLES Final Result DERMATOPATHOLOGY LABORATORY [facility] - Department of Dermatology [address], [address] [phone] documented in this encounter Visit Diagnoses Not on filedocumented in this encounter Care Teams Co Supervisor Grounds And Landscape Relationship Specialty Start Date End Date Abrahan Mcgee MD [address] [place] [address] PCP - General 07/23/09 documented as of this encounter
--- OUTSIDE RECORDS SUMMARY | 2025-01-21 22:49 | XMS_ITS | Encounter Summary ---
Author Organization [facility] Address [address] [place] [address] Care Team Providers Care Barrel Marker Name Role Phone Abrahan Mcgee MD Primary Care Provider [phone] Encounter Details Date Type Department Care Team (Late st Contact Info) Description 11/27/2004 Outpatient Historical HIS [facility] ЕКАТЕРИНА Perry, Meryl Pereira MD [address] [address] ABDOMINAL PAIN RLQ (Primary Dx) Social History Tobacco Use Types Packs/Day Years Used Date Smoking Tobacco: Never Assessed Comments Unknown Sex and Gender Information Value Date Recorded Sex Assigned at Not on file Legal Sex Female 3:33 AM REFERRAL AND INFORMATION AIDE Gender Identity Not on file Sexual Orientation Not on file documented as of this encounter Plan of Treatment Upcoming Encounters Date Type Department Care Team (Late st Contact Info) Description 04/04/2025 11:00 AM REFERRAL AND INFORMATION AIDE Office Visit [facility] Oncology and Hematology - [place] [address] [facility] [address] [place] [address] Prince Mir MD [address] [facility] [address] [place] [address] documented as of this [...] FETOPROTEIN TUMOR MARKER (11/27/2004 11:54 AM CDT) [facility] ALPHA FETOPROTEIN TUMOR MARKER 2.2 ng/mL INTERFACE SYSTEM Comment: This test was performed using the DPC Immulite 2000 Assay. REFERENCE RANGE: <6.1 THE USE OF AFP A TUMOR MARKER IN FEMALES IS NOT RECOMMENDED. Lab test performed by: [employer] [address] EVELINA AMOS MD 11/27/2004 11:5 4 AM CDT Meryl Perry MD CHEMISTRY ORDERABLES Fin al Result INTERFACE SYSTEM Refer to clinic/hospital department * CBC WITH DIFFERENTIAL (11/27/2004 11:54 AM CDT) [facility] NEUTROPHILS 67 45 - 70 % [...] ORDERABLES Fi nal Result Performing Organization Address City/State/[facility] Co de Phone [...] ORDERABLES Fi nal Result Performing Organization Address [facility] Phone Number INTERFACE SYSTEM Refer to clinic/hospital department * (ABNORMAL) AMYLASE (11/27/2004 11:54 AM CDT) AMYLASE 141(H) 28 - 100 U/L INTERFACE SYSTEM 11/27/2004 11:5 4 AM CDT Meryl Perry MD CHEMISTRY ORDERABLES Fin al Result Performing Organization Address City/[facility] Co de Phone Number INTERFACE SYSTEM Refer to clinic/hospital department * (ABNORMAL) LIPASE (11/27/2004 11:54 AM CDT) LIPASE 97(H) 13 - 60 U/L INTERFAC E SYSTEM 11/27/2004 11:5 4 AM CDT Meryl Perry MD CHEMISTRY ORDERABLES Fin al Result Performing Organization Address [facility] Phone Number INTERFACE SYSTEM Refer to clinic/hospital department * C-REACTIVE PROTEIN (11/27/2004 11:54 AM CDT) CRP 0.5 0.0 - 0.8 mg/dL INTERFACE SYSTEM 11/27/2004 11:5 4 AM CDT Meryl Perry MD CHEMISTRY ORDERABLES Fin al Result Performing Organization Address [facility] Phone Number INTERFACE SYSTEM Refer [...] ORDERABLES Fin al Result Performing Organization Address [facility] Phone Number INTERFACE SYSTEM Refer to [...] Primary documented in this encounter Care Teams Barrel Marker Relationship Specialty Start Date End Date Abrahan Mcgee MD [address] [place] [address] PCP - General Family Practice 04/03/24 documented as of this encounter
--- OUTSIDE RECORDS SUMMARY | 2025-01-21 22:49 | XMS_ITS | Encounter Summary ---
Author Organization [facility] Address [address] [place] [address] Care Team Providers Care Director Funeral Name Role Phone Abrahan Mcgee MD Primary Care Provider [phone] Encounter Details Date Type Department Care Team (Latest Contact Info) Description 08/15/2002 Outpatient [facility] ЕК[facility]РИНА Ernst, Andre Guardado MD NO ADDRESS ON FILE JOINT PAIN-L/LEG (Primary Dx) Social History Tobacco Use Types Packs/Day Years Used Date Smoking Tobacco: Never Assessed Comments Unknown Sex and Gender Information Value Date Recorded Sex Assigned at Not on file Legal Sex Female 3:33 AM PARCEL POST OFFICER Gender Identity Not on file Sexual Orientation Not on file documented as of this encounter Plan of Treatment Upcoming Encounters Date Type Department Care Team (Late st Contact Info) Description 04/04/2025 11:00 AM PARCEL POST OFFICER Office Visit [facility] Oncology and Hematology - [place] [address] [place] [address] Prince Mir MD [address] [place] [address] [address] [place] [address] documented as of this encounter Visit Diagnoses Diagnosis Pain in joint, lower leg- Primary documented in this encounter Care Teams Director Funeral Relationship Specialty Start Date End Date Abrahan Mcgee MD [address] [place] [address] PCP - General Family Practice 04/03/24 documented as of this encounter
--- OUTSIDE RECORDS SUMMARY | 2025-01-21 22:49 | XMS_ITS | Encounter Summary ---
Author Organization [facility] Address [address] [place] [address] Care Team Providers Care Manager Transition Name Role Phone Abrahan Mcgee MD Primary Care Provider Encounter Details Date Type Department Care Team (Late st Contact Info) Description 06/11/2005 Outpatient Historical HIS [facility] Andre Ernst MD NO ADDRESS ON FILE Social History Tobacco Use Types Packs/Day Years Used Date Smoking Tobacco: Never Assessed Comments Unknown Sex and Gender Information Value Date Recorded Sex Assigned at Not on file Legal Sex Female 3:33 AM CHILD CARE COUNSELOR Gender Identity Not on file Sexual Orientation Not on file documented as of this encounter Plan of Treatment Upcoming Encounters Date Type Department Care Team (Late st Contact Info) Description 04/04/2025 11:00 AM CHILD CARE COUNSELOR Office Visit [facility] Oncology and Hematology - [place] [address] [place] [address] [address] [place] [address] Prince Mir MD [address] [facility] [facility] [address] [place] [address] documented as of this encounter Visit Diagnoses Not on filedocumented in this encounter Care Teams Manager Transition Relationship Specialty Start Date End Date Abrahan Mcgee MD [address] [place] [address] PCP - General Family Practice 04/03/24 documented as of this encounter
--- OUTSIDE RECORDS SUMMARY | 2025-01-21 22:49 | XMS_ITS | Encounter Summary ---
Author Organization [facility] Address [address] [place] [address] Care Team Providers Care Aboriginal Liaison Officer Name Role Phone Abrahan Mcgee MD Primary Care Provider [phone] Encounter Details Date Type Department Care Team (Latest Contact Info) Description 08/15/2004 Outpatient Historical HIS [facility] Andre Vidal MD NO ADDRESS ON FILE HYPOPOTASSEMIA (Primary Dx) Social History Tobacco Use Types Packs/Day Years Used Date Smoking Tobacco: Never Assessed Comments Unknown Sex and Gender Information Value Date Recorded Sex Assigned at Not on file Legal Sex Female 3:33 AM COSTUME DIRECTOR Gender Identity Not on file Sexual Orientation Not on file documented as of this encounter Plan of Treatment Upcoming Encounters Date Type Department Care Team (Late st Contact Info) Description 04/04/2025 11:00 AM COSTUME DIRECTOR Office Visit [facility] Oncology and Hematology - [place] [address] [facility] [address] [place] [address] Prince Mir MD [address] [facility] [address] [place] [address] documented as of this encounter Procedures Procedure Name Priority Date/Time Associated Diagnosis Comments POTASSIUM LEVEL Routine 08/15/2004 11:22 AM CDT documented in this encounter Results * POTASSIUM LEVEL (08/15/2004 11:22 AM CDT) POTASSIUM 4.3 3.5 - 4.9 mmol/L INTERFACE SYSTEM 08/15/2004 11:2 2 AM CDT us Adnre Ernst MD CHEMISTRY ORDERABLES Final Res ult INTERFACE SYSTEM Refer to clinic/hospital department documented in this encounter Visit Diagnoses Diagnosis Hypopotassemia- Primary documented in this encounter Care Teams Aboriginal Liaison Officer Relationship Specialty Start Date End Date Abrahan Mcgee MD [address] [place] [address] PCP - General Family Practice 04/03/24 documented as of this encounter
--- OUTSIDE RECORDS SUMMARY | 2025-01-21 22:49 | XMS_ITS | Encounter Summary ---
Author Organization [facility] Address [address] [place] [address] Care Team Providers Care Environmental Auditor Name Role Phone Abrahan Mcgee MD Primary Care Provider [phone] Encounter Details Date Type Department Care Team (Late Contact Info) Description 02/24/2005 Outpatient Historical [facility] [address] [place] [place] [address] Alcon Valadez MD [address] [place] [address] Social History Tobacco Use Types Packs/Day Years Used Date Smoking Tobacco: Never Assessed Comments Unknown Sex and Gender Information Value Date Recorded Sex Assigned at Not on file Legal Sex Female 3:33 AM GEAR SETTER Gender Identity Not on file Sexual Orientation Not on file documented as of this encounter Plan of Treatment Upcoming Encounters Date Type Department Care Team (Late st Contact Info) Description 04/04/2025 11:00 AM GEAR SETTER Office Visit [facility] Oncology and Hematology - [place] [address] [facility] [address] [place] [address] Prince Mir MD [address] [facility] [address] [place] [address] documented as of this encounter Visit Diagnoses Not on filedocumented in this encounter Care Teams Environmental Auditor Relationship Specialty Start Date End Date Abrahan Mcgee MD [address] [place] [address] PCP - General Family Practice 04/03/24 documented as of this encounter
--- OUTSIDE RECORDS SUMMARY | 2025-01-21 22:49 | XMS_ITS | Encounter Summary ---
Author Organization [facility] Address [address] [facility] Attn: Epic Prelude ADT [place] [address] Care Team Providers Care Cancer Registry Manager Name Role Phone Abrahan Mcgee MD [...] on file Legal Sex Female 3:33 AM VELOCITY SHOOTER Gender Identity Not on file Sexual Orientation Not on file documented as of this encounter Plan of Treatment Upcoming Encounters Date Type Department Care Team (Late st Contact Info) Description 04/04/2025 11:00 AM VELOCITY SHOOTER Office Visit [facility] Oncology and Hematology - [place] [address] [place] [address] [address] [place] [address] [place] [address] [place] [address] [address] [place] [address] documented as of this encounter Visit Diagnoses Not on filedocumented in this encounter Care Teams Cancer Registry Manager Relationship Specialty Start Date End Date Abrahan Mcgee MD [address] [place] [address] PCP - General Family Practice 04/03/24 documented as of this encounter
--- OUTSIDE RECORDS SUMMARY | 2025-01-21 22:49 | XMS_ITS | Encounter Summary ---
Author Organization [facility] Address [address] [place] [address] Care Team Providers Care Qa Developer Name Role Phone Abrahan Mcgee MD Primary Care Provider Encounter Details Date Type Department Care Team (Late st Contact Info) Description 02/07/2004 Outpatient Historical [facility] Andre Ernst MD NO ADDRESS ON FILE Social History Tobacco Use Types Packs/Day Years Used Date Smoking Tobacco: Never Assessed Comments Unknown Sex and Gender Information Value Date Recorded Sex Assigned at Not on file Legal Sex Female 3:33 AM SUPERVISING LAW ENFORCEMENT ANALYST Gender Identity Not on file Sexual Orientation Not on file documented as of this encounter Plan of Treatment Upcoming Encounters Date Type Department Care Team (Late st Contact Info) Description 04/04/2025 11:00 AM SUPERVISING LAW ENFORCEMENT ANALYST Office Visit [facility] Oncology and Hematology - [place] [address] [place] [address] [address] [place] [address] Prince Mir MD [address] [facility] [address] [place] [address] documented as of this encounter Visit Diagnoses Not on filedocumented in this encounter Care Teams Qa Developer Relationship Specialty Start Date End Date Abrahan Mcgee MD [address] [place] [address] PCP - General Family Practice 04/03/24 documented as of this encounter
--- OUTSIDE RECORDS SUMMARY | 2025-01-21 22:49 | XMS_ITS | Clinical Summary ---
Author Organization [facility] Care Team Providers Care Emergency Man Name Role Phone Unavailable Primary Care Provider [...]
--- OUTSIDE RECORDS SUMMARY | 2025-01-21 22:49 | XMS_ITS | Encounter Summary ---
Author Organization [facility] Address [address] [place] [address] Care Team Providers Care Special Needs Babysitter Name Role Phone Abrahan Mcgee MD [...] file Legal Sex Female 3:33 AM HEART SPECIALIST Gender Identity Not on file Sexual Orientation Not on file documented as of this encounter Plan of Treatment Upcoming Encounters Date Type Department Care Team (Late st Contact Info) Description 04/04/2025 11:00 AM HEART SPECIALIST Office Visit [facility] Oncology and Hematology - [place] [address] [place] [address] [place] [address] [place] [address] [address] [place] [address] documented as of this encounter Visit Diagnoses Diagnosis Unspecified symptom associated with female genital organs- Primary documented in this encounter Care Teams Special Needs Babysitter Relationship Specialty Start Date End Date Abrahan Mcgee MD [address] [place] [address] PCP - General Family Practice 04/03/24 documented as of this encounter
--- OUTSIDE RECORDS SUMMARY | 2025-01-21 22:49 | XMS_ITS | Encounter Summary ---
Author Organization [facility] Address [address] [place] [address] Care Team Providers Care Associate Professor Of Pathology Name Role Phone Abrahan Mcgee MD Primary Care Provider [phone] Encounter Details Date Type Department Care Team (Late st Contact Info) Description 12/17/2004 Outpatient Historical [facility] Meryl Perry MD [address] [address] BENIGN NEOPLASM LG BOWEL (Primary Dx) Social History Tobacco Use Types Packs/Day Years Used Date Smoking Tobacco: Never Assessed Comments Unknown Sex and Gender Information Value Date Recorded Sex Assigned at Not on file Legal Sex Female 3:33 AM BRANNER MACHINE TENDER Gender Identity Not on file Sexual Orientation Not on file documented as of this encounter Plan of Treatment Upcoming Encounters Date Type Department Care Team (Late st Contact Info) Description 04/04/2025 11:00 AM BRANNER MACHINE TENDER Office Visit [facility] Oncology and Hematology - [place] [address] [place] [address] [address] [place] [address] Prince Mir MD [address] [facility] [address] [place] [address] documented as of this encounter Visit Diagnoses Diagnosis Benign neoplasm of colon- Primary documented in this encounter Care Teams Associate Professor Of Pathology Relationship Specialty Start Date End Date Abrahan Mcgee MD [address] [place] [address] PCP - General Family Practice 04/03/24 documented as of this encounter
--- OUTSIDE RECORDS SUMMARY | 2025-01-21 22:49 | XMS_ITS | Encounter Summary ---
Author Organization [facility] Address [address] [place] [address] Care Team Providers Care Tourist Information Assistant Name Role Phone Abrahan Mcgee MD Primary Care Provider [phone] Encounter Details Date Type Department Care Team (Latest Contact Info) Description 02/24/2002 Outpatient Historical HIS [facility] ЕКАТЕРИНА Ernst, Andre Guardado MD NO ADDRESS ON FILE CHRONIC SINUSITIS NOS (Primary Dx) Social History Tobacco Use Types Packs/Day Years Used Date Smoking Tobacco: Never Assessed Comments Unknown Sex and Gender Information Value Date Recorded Sex Assigned at Not on file Legal Sex Female 3:33 AM SUPERVISING LIBRARIAN Gender Identity Not on file Sexual Orientation Not on file documented as of this encounter Plan of Treatment Upcoming Encounters Date Type Department Care Team (Late st Contact Info) Description 04/04/2025 11:00 AM SUPERVISING LIBRARIAN Office Visit [facility] Oncology and Hematology - [place] [address] [facility] [address] [place] [address] [place] [address] [place] [address] [address] [place] [address] documented as of this encounter Visit Diagnoses Diagnosis Unspecified sinusitis (chronic)- Primary documented in this encounter Care Teams Tourist Information Assistant Relationship Specialty Start Date End Date Abrahan Mcgee MD [address] [place] [address] PCP - General Family Practice 04/03/24 documented as of this encounter
--- OUTSIDE RECORDS SUMMARY | 2025-01-21 22:49 | XMS_ITS | Encounter Summary ---
Author Organization [facility] Address [address] [place] [address] Care Team Providers Care Cleaner And Presser Name Role Phone Abrahan Mcgee MD Primary Care Provider [phone] Encounter Details Date Type Department Care Team (Late st Contact Info) Description 12/05/2004 Outpatient Historical [facility] Meryl Perry MD [address] [address] UTERINE LEIOMYOMA NOS (Primary Dx) Social History Tobacco Use Types Packs/Day Years Used Date Smoking Tobacco: Never Assessed Comments Unknown Sex and Gender Information Value Date Recorded Sex Assigned at Not on file Legal Sex Female 3:33 AM COLLEGE OR UNIVERSITY BUSINESS MANAGER Gender Identity Not on file Sexual Orientation Not on file documented as of this encounter Plan of Treatment Upcoming Encounters Date Type Department Care Team (Late st Contact Info) Description 04/04/2025 11:00 AM COLLEGE OR UNIVERSITY BUSINESS MANAGER Office Visit [facility] Oncology and Hematology - [place] [address] [place] [address] [address] [place] [address] Prince Mir MD [address] [facility] [address] [place] [address] documented as of this encounter Visit Diagnoses Diagnosis Leiomyoma of uterus, unspecified- Primary documented in this encounter Care Teams Cleaner And Presser Relationship Specialty Start Date End Date Abrahan Mcgee MD [address] [place] [address] PCP - General Family Practice 04/03/24 documented as of this encounter
--- OUTSIDE RECORDS SUMMARY | 2025-01-21 22:49 | XMS_ITS | Encounter Summary ---
Author Organization [facility] Address [address] [place] [address] Care Team Providers Care Document Processing Specialist Name Role Phone Abrahan Mcgee MD Primary Care Provider [phone] Encounter Details Date Type Department Care Team (Late st Contact Info) Description 04/12/2002 Outpatient Historical [facility] Andre Ernst MD NO ADDRESS ON FILE DIAPHRAGMATIC HERNIA (Primary Dx) Social History Tobacco Use Types Packs/Day Years Used Date Smoking Tobacco: Never Assessed Comments Unknown Sex and Gender Information Value Date Recorded Sex Assigned at Not on file Legal Sex Female 3:33 AM CUT LACE MACHINE OPERATOR Gender Identity Not on file Sexual Orientation Not on file documented as of this encounter Plan of Treatment Upcoming Encounters Date Type Department Care Team (Late st Contact Info) Description 04/04/2025 11:00 AM CUT LACE MACHINE OPERATOR Office Visit [facility] Oncology and Hematology - [place] [address] [facility] [address] [place] [address] [place] [address] [place] [address] [address] [place] [address] documented as of this encounter Visit Diagnoses Diagnosis 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 [address] PCP - General Family Practice 04/03/24 documented as of this encounter
--- OUTSIDE RECORDS SUMMARY | 2025-01-21 22:49 | XMS_ITS | Encounter Summary ---
Author Organization [facility] Address [address] [place] [address] Care Team Providers Care Celery Stripper Name Role Phone Abrahan Mcgee MD Primary Care Provider [phone] Encounter Details Date Type Department Care Team (Latest Contact Info) Description 10/29/2000 Outpatient Historical [facility] ЕКАТЕРИНА Ernst, Andre Guardado MD NO ADDRESS ON FILE Backache, unspecified (Primary Dx) Social History Tobacco Use Types Packs/Day Years Used Date Smoking Tobacco: Never Assessed Comments Unknown Sex and Gender Information Value Date Recorded Sex Assigned at Not on file Legal Sex Female 3:33 AM REFRACTORY REPAIRER Gender Identity Not on file Sexual Orientation Not on file documented as of this encounter Plan of Treatment Upcoming Encounters Date Type Department Care Team (Late st Contact Info) Description 04/04/2025 11:00 AM REFRACTORY REPAIRER Office Visit [facility] Oncology and Hematology - [place] [address] [facility] [address] [place] [address] Prince Mir MD [address] [place] [address] [address] [place] [address] documented as of this encounter Visit Diagnoses Diagnosis Backache, unspecified- Primary documented in this encounter Care Teams Celery Stripper Relationship Specialty Start Date End Date Abrahan Mcgee MD [address] [place] [address] PCP - General Family Practice 04/03/24 documented as of this encounter
--- OUTSIDE RECORDS SUMMARY | 2025-01-21 22:49 | XMS_ITS | Encounter Summary ---
Author Organization [facility] Address [address] [place] [address] Care Team Providers Care Solderer Name Role Phone Abrahan Mcgee MD Primary Care Provider [phone] Encounter Details Date Type Department Care Team (Latest Contact Info) Description 11/27/[address] [facility] ЕКАТЕРИНА Sneed, Oscar Medeiros MD NO ADDRESS ON FILE SCREENING MAMM-MAILG NEOPL NEC (Primary Dx) Social History Tobacco Use Types Packs/Day Years Used Date Smoking Tobacco: Never Assessed Comments Unknown Sex and Gender Information Value Date Recorded Sex Assigned at Not on file Legal Sex Female 3:33 AM POLYSOMNOGRAPHY TECHNOLOGIST Gender Identity Not on file Sexual Orientation Not on file documented as of this encounter Plan of Treatment Upcoming Encounters Date Type Department Care Team (Late st Contact Info) Description 04/04/2025 11:00 AM POLYSOMNOGRAPHY TECHNOLOGIST Office Visit [facility] Oncology and Hematology - [address] [place] [address] Prince Mir MD [address] [place] [address] [address] [place] [address] documented as of this encounter Visit Diagnoses Diagnosis Other screening mammogram- Primary documented in this encounter Care Teams Solderer Relationship Specialty Start Date End Date Abrahan Mcgee MD [address] [place] [address] PCP - General Family Practice 04/03/24 documented as of this encounter
--- OUTSIDE RECORDS SUMMARY | 2025-01-21 22:49 | XMS_ITS | Encounter Summary ---
Author Organization [facility] Address [address] [place] [address] Care Team Providers Care Test Borer Name Role Phone Abrahan Mcgee MD Primary Care Provider [phone] Encounter Details Date Type Department Care Team (Latest Contact Info) Description 02/23/2005 Inpatient Historical [facility] Alcon Valadez MD [address] [address] Deisy Garcia MD [address] [address] CHEST PAIN NOS (Primary Dx) Social History Tobacco Use Types Packs/Day Years Used Date Smoking Tobacco: Never Assessed Comments Unknown Sex and Gender Information Value Date Recorded Sex Assigned at Not on file Legal Sex Female 3:33 AM HOME THEATRE TECHNICIAN Gender Identity Not on file Sexual Orientation Not on file documented as of this encounter Plan of Treatment Upcoming Encounters Date Type Department Care Team (Late st Contact Info) Description 04/04/2025 11:00 AM HOME THEATRE TECHNICIAN Office Visit [facility] Oncology and Hematology - [place] [address] [facility] [address] [place] [address] Prince Mir MD 2227 [facility] [address] [place] [address] documented as of this encounter Procedures Procedure Name Priority Date/Time Associated Diagnosis Comments CBC WITH DIFFERENTIAL Routine 02/25/2005 4:30 AM HOME THEATRE TECHNICIAN CBC WITH DIFFERENTIAL Routine 02/25/2005 4:30 AM HOME THEATRE TECHNICIAN C-REACTIVE PROTEIN Routine 02/25/2005 4: 30 AM HOME THEATRE TECHNICIAN T3 FREE Routine 02/25/2005 4:30 AM HOME THEATRE TECHNICIAN T4 FREE Routine 02/25/2005 4:30 AM HOME THEATRE TECHNICIAN BASIC METABOLIC PANEL Routine 02/25/2005 4:30 AM HOME THEATRE TECHNICIAN TSH Routine 02/24/2005 4:35 AM HOME THEATRE TECHNICIAN LIPASE Routine 02/24/2005 4:35 AM HOME THEATRE TECHNICIAN AMYLASE Routine 02/24/2005 4:35 AM HOME THEATRE TECHNICIAN LIPID PANEL Routine 02/24/2005 4:35 AM HOME THEATRE TECHNICIAN BASIC METABOLIC PANEL Routine 02/24/2005 4:35 AM HOME THEATRE TECHNICIAN TROPONIN (W/REFLEX CKMB/CK) Routine 02/24/2005 4:15 AM HOME THEATRE TECHNICIAN TROPONIN (W/REFLEX CKMB/CK) Routine 02/23/2005 10:15 PM HOME THEATRE TECHNICIAN URINALYSIS W/REFLEX MICROSCOPIC Routine 02/23/2005 8:31 PM HOME THEATRE TECHNICIAN TROPONIN (W/REFLEX CKMB/CK) Routine 02/23/2005 1:28 PM HOME THEATRE TECHNICIAN CBC WITH DIFFERENTIAL Routine 02/23/2005 12:46 PM HOME THEATRE TECHNICIAN CBC WITH DIFFERENTIAL Routine 02/23/2005 12:46 PM HOME THEATRE TECHNICIAN LIPASE Routine 02/23/2005 12:46 PM HOME THEATRE TECHNICIAN AMYLASE Routine 02/23/2005 12:46 PM HOME THEATRE TECHNICIAN COMPREHENSIVE METABOLIC PANEL Routine 02/23/2005 12:46 PM HOME THEATRE TECHNICIAN documented in this encounter Results * CBC WITH DIFFERENTIAL (02/25/2005 4:30 AM HOME THEATRE TECHNICIAN) NEUTROPHILS 52 45 - 70 % INTERFAC [...] 0.20 K/uL INTERFACE SYSTEM 02/25/2005 4:30 AM HOME THEATRE TECHNICIAN Alcon Valadez MD HEMATOLOGY ORDERABLES Final Re sult Performing Organization Address [facility] de Phone Number INTERFACE SYSTEM Refer to clinic/hospital department * (ABNORMAL) CBC WITH DIFFERENTIAL (02/25/2005 4:30 AM HOME THEATRE TECHNICIAN) WBC 7.4 4.0 - 9.8 K/uL INTERFACE [...] 12.4 fL INTERFACE SYSTEM 02/25/2005 4:30 AM HOME THEATRE TECHNICIAN us Alcon Valadez MD HEMATOLOGY ORDERABLES Final Re sult Performing Organization Address [facility] de Phone Number INTERFACE SYSTEM Refer to clinic/hospital department * T3 FREE (02/25/2005 4:30 AM HOME THEATRE TECHNICIAN) T3 FREE 2.9 2.5 - 4.4 pg/mL INTERFACE SYSTEM 02/25/2005 4:30 AM HOME THEATRE TECHNICIAN us Alcon Valadez MD CHEMISTRY ORDERABLES Final Res ult Performing Organization Address [facility] de Phone Number INTERFACE SYSTEM Refer to clinic/hospital department * T4 FREE (02/25/2005 4:30 AM HOME THEATRE TECHNICIAN) T4 FREE 1.3 0.9 - 1.7 ng/dL INTERFACE SYSTEM 02/25/2005 4:30 AM HOME THEATRE TECHNICIAN Result An Valadez MD CHEMISTRY ORDERABLES Final Res ult Performing Organization Address [facility] de Phone Number INTERFACE SYSTEM Refer to clinic/hospital department * C-REACTIVE PROTEIN (02/25/2005 4:30 AM HOME THEATRE TECHNICIAN) CRP 0.6 0.0 - 0.8 mg/dL INTERFACE SYSTEM 02/25/2005 4:30 AM HOME THEATRE TECHNICIAN Result An Valadez MD CHEMISTRY ORDERABLES Final Res ult Performing Organization Address [facility] de Phone Number INTERFACE SYSTEM Refer to clinic/hospital department * BASIC METABOLIC PANEL (02/25/2005 4:30 AM HOME THEATRE TECHNICIAN) GLUCOSE 89 65 - 109 mg/dL INTERFACE [...] 30 mmol/L INTERFACE SYSTEM 02/25/2005 4:30 AM HOME THEATRE TECHNICIAN Result An Valadez MD CHEMISTRY ORDERABLES Final Res ult Performing Organization Address [facility] Phone Number INTERFACE SYSTEM Refer to clinic/hospital department * (ABNORMAL) LIPASE (02/24/2005 4:35 AM HOME THEATRE TECHNICIAN) LIPASE 90(H) 13 - 60 U/L INTERFAC E SYSTEM 02/24/2005 4:35 AM HOME THEATRE TECHNICIAN Nora Sivaprasad CHEMISTRY ORDERABLES Final Resu lt Performing Organization Address [facility] Phone Number INTERFACE SYSTEM Refer to clinic/hospital department * (ABNORMAL) AMYLASE (02/24/2005 4:35 AM HOME THEATRE TECHNICIAN) AMYLASE 118(H) 28 - 100 U/L INTERFACE SYSTEM 02/24/2005 4:35 AM HOME THEATRE TECHNICIAN Nora Sivaprasad CHEMISTRY ORDERABLES Final Resu lt Performing Organization Address [facility] Phone Number INTERFACE SYSTEM Refer to clinic/hospital department * (ABNORMAL) TSH (02/24/2005 4:35 AM HOME THEATRE TECHNICIAN) TSH 4.33(H) 0.27 - 4.20 uU/mL INTERFACE SYSTEM 02/24/2005 4:35 AM HOME THEATRE TECHNICIAN Nora Sivaprasad CHEMISTRY ORDERABLES Final Resu lt Performing Organization Address [facility] Phone Number INTERFACE SYSTEM Refer to clinic/hospital department * LIPID PANEL (02/24/2005 4:35 AM HOME THEATRE TECHNICIAN) LIPID PANEL COMMENT See below INTERFACE SYSTEM [...] section for risk classifications. 02/24/2005 4:35 AM HOME THEATRE TECHNICIAN [facility] [employer] CHEMISTRY ORDERABLES Final Resu lt Performing Organization Address [facility] de Phone Number INTERFACE SYSTEM Refer to clinic/hospital department * BASIC METABOLIC PANEL (02/24/2005 4:35 AM HOME THEATRE TECHNICIAN) GLUCOSE 100 65 - 109 mg/dL INTERFACE [...] 30 mmol/L INTERFACE SYSTEM 02/24/2005 4:35 AM HOME THEATRE TECHNICIAN [facility] [employer] CHEMISTRY ORDERABLES Final Resu lt Performing Organization Address [facility] de Phone Number INTERFACE SYSTEM Refer to clinic/hospital department * TROPONIN (W/REFLEX CKMB/CK) (02/24/2005 4:15 AM HOME THEATRE TECHNICIAN) TROPONIN T <0.01 <=0.03 ng/mL INTERFACE SYSTEM TROPONIN T INTERP Negative INTERFACE SYSTEM 02/24/2005 4:15 AM HOME THEATRE TECHNICIAN Nora Sivaprasad CHEMISTRY ORDERABLES Final Resu lt Performing Organization Address [facility] Phone Number INTERFACE SYSTEM Refer to clinic/hospital department * TROPONIN (W/REFLEX CKMB/CK) (02/23/2005 10:15 PM HOME THEATRE TECHNICIAN) TROPONIN T <0.01 <=0.03 ng/mL INTERFACE SYSTEM TROPONIN T INTERP Negative INTERFACE SYSTEM 02/23/2005 10:1 5 PM HOME THEATRE TECHNICIAN [facility] Sivaprasad CHEMISTRY ORDERABLES Final Resu lt Performing Organization Address [facility] Phone Number INTERFACE SYSTEM Refer to clinic/hospital department * (ABNORMAL) URINALYSIS (02/23/2005 8:31 PM HOME THEATRE TECHNICIAN) COLOR UA Yellow INTERFACE SYSTEM CLARITY UA [...] 2-5 /HPF INTERFACE SYSTEM 02/23/2005 8:31 PM HOME THEATRE TECHNICIAN Nora Sivaprasad URINE ORDERABLES Final Result Performing Organization Address [facility] Phone Number INTERFACE SYSTEM Refer to clinic/hospital department * TROPONIN (W/REFLEX CKMB/CK) (02/23/2005 1:28 PM HOME THEATRE TECHNICIAN) TROPONIN T <0.01 <=0.03 ng/mL INTERFACE SYSTEM TROPONIN T INTERP Negative INTERFACE SYSTEM 02/23/2005 1:28 PM HOME THEATRE TECHNICIAN us Erika P Er CHEMISTRY ORDERABLES Final Resul t Performing Organization Address [facility] Phone Number INTERFACE SYSTEM Refer to clinic/hospital department * CBC WITH DIFFERENTIAL (02/23/2005 12:46 PM HOME THEATRE TECHNICIAN) NEUTROPHILS 70 45 - 70 % INTERFAC [...] K/uL INTERFACE SYSTEM 02/23/2005 12:4 6 PM HOME THEATRE TECHNICIAN us Jasbir Sol MD HEMATOLOGY ORDERABLES Final Re sult Performing Organization Address [facility] Phone Number INTERFACE SYSTEM Refer to clinic/hospital department * (ABNORMAL) CBC WITH DIFFERENTIAL (02/23/2005 12:46 PM HOME THEATRE TECHNICIAN) WBC 9.3 4.0 - 9.8 K/uL INTERFACE [...] fL INTERFACE SYSTEM 02/23/2005 12:4 6 PM HOME THEATRE TECHNICIAN Jasbir Sol MD HEMATOLOGY ORDERABLES Final Re sult Performing Organization Address [facility] Phone Number INTERFACE SYSTEM Refer to clinic/hospital department * (ABNORMAL) LIPASE (02/23/2005 12:46 PM HOME THEATRE TECHNICIAN) LIPASE 91(H) 13 - 60 U/L INTERFAC E SYSTEM 02/23/2005 12:4 6 PM HOME THEATRE TECHNICIAN Jasbir Sol MD CHEMISTRY ORDERABLES Final Res ult Performing Organization Address [facility] Phone Number INTERFACE SYSTEM Refer to clinic/hospital department * (ABNORMAL) AMYLASE (02/23/2005 12:46 PM HOME THEATRE TECHNICIAN) AMYLASE 134(H) 28 - 100 U/L INTERFACE SYSTEM 02/23/2005 12:4 6 PM HOME THEATRE TECHNICIAN Jasbir Sol MD CHEMISTRY ORDERABLES Final Res ult Performing Organization Address [facility] Phone Number INTERFACE SYSTEM Refer to clinic/hospital department * (ABNORMAL) COMPREHENSIVE METABOLIC PANEL (02/23/2005 12:46 PM HOME THEATRE TECHNICIAN) GLUCOSE 115(H) 65 - 109 mg/dL INTERFACE [...] mmol/L INTERFACE SYSTEM 02/23/2005 12:4 6 PM HOME THEATRE TECHNICIAN us Jasbir Sol MD CHEMISTRY ORDERABLES Final Res ult INTERFACE SYSTEM Refer to clinic/hospital department documented in this encounter Visit Diagnoses Diagnosis Chest pain, unspecified- Primary documented in this encounter Care Teams Test Borer Relationship Specialty Start Date End Date Abrahan Mcgee MD [address] [place] [address] PCP - General Family Practice 04/03/24 documented as of this encounter
--- OUTSIDE RECORDS SUMMARY | 2025-01-21 22:49 | XMS_ITS | Encounter Summary ---
Author Organization [facility] Address [address] [place] [address] Care Team Providers Care Rabbit Dresser Name Role Phone Abrahan Mcgee MD Primary Care Provider Encounter Details Date Type Department Care Team (Late st Contact Info) Description 06/05/2004 Outpatient Historical [facility] INTERNISTS Andre Ernst MD NO ADDRESS ON FILE Social History Tobacco Use Types Packs/Day Years Used Date Smoking Tobacco: Never Assessed Comments Unknown Sex and Gender Information Value Date Recorded Sex Assigned at Not on file Legal Sex Female 3:33 AM SHOVEL LOADER OPERATOR Gender Identity Not on file Sexual Orientation Not on file documented as of this encounter Plan of Treatment Upcoming Encounters Date Type Department Care Team (Late st Contact Info) Description 04/04/2025 11:00 AM SHOVEL LOADER OPERATOR Office Visit [facility] Oncology and Hematology - [place] [address] [place] [address] [address] [place] [address] Prince Mir MD [address] [facility] [address] [place] [address] documented as of this encounter Visit Diagnoses Not on filedocumented in this encounter Care Teams Rabbit Dresser Relationship Specialty Start Date End Date Abrahan Mcgee MD [address] [place] [address] PCP - General Family Practice 04/03/24 documented as of this encounter
--- OUTSIDE RECORDS SUMMARY | 2025-01-21 22:49 | XMS_ITS | Encounter Summary ---
Author Organization [facility] Address [address] [place] [address] Care Team Providers Care Probate Clerk Name Role Phone Abrahan Mcgee MD Primary Care Provider Encounter Details Date Type Department Care Team (Late st Contact Info) Description 12/18/2004 Outpatient Historical HIS [facility] INTERNISTS Andre Ernst MD NO ADDRESS ON FILE Social History Tobacco Use Types Packs/Day Years Used Date Smoking Tobacco: Never Assessed Comments Unknown Sex and Gender Information Value Date Recorded Sex Assigned at Not on file Legal Sex Female 3:33 AM BLOOD BANK CALENDAR CONTROL CLERK Gender Identity Not on file Sexual Orientation Not on file documented as of this encounter Plan of Treatment Upcoming Encounters Date Type Department Care Team (Late st Contact Info) Description 04/04/2025 11:00 AM BLOOD BANK CALENDAR CONTROL CLERK Office Visit [facility] Oncology and Hematology - [place] [address] [place] [address] [address] [place] [address] Prince Mir MD [address] [facility] [address] [place] [address] documented as of this encounter Visit Diagnoses Not on filedocumented in this encounter Care Teams Probate Clerk Relationship Specialty Start Date End Date Abrahan Mcgee MD [address] [place] [address] PCP - General Family Practice 04/03/24 documented as of this encounter
--- OUTSIDE RECORDS SUMMARY | 2025-01-21 22:49 | XMS_ITS | Encounter Summary ---
Author Organization [facility] Address [address] [place] [address] Care Team Providers Care Hotel Manager Name Role Phone Abrahan Mcgee MD Primary Care Provider Encounter Details Date Type Department Care Team (Late st Contact Info) Description 08/15/2002 Outpatient Historical HIS [facility] INTERNISTS Andre Ernst MD NO ADDRESS ON FILE Social History Tobacco Use Types Packs/Day Years Used Date Smoking Tobacco: Never Assessed Comments Unknown Sex and Gender Information Value Date Recorded Sex Assigned at Not on file Legal Sex Female 3:33 AM HOSE TURNER Gender Identity Not on file Sexual Orientation Not on file documented as of this encounter Plan of Treatment Upcoming Encounters Date Type Department Care Team (Late st Contact Info) Description 04/04/2025 11:00 AM HOSE TURNER Office Visit [facility] Oncology and Hematology - [place] [address] [place] [address] [address] [place] [address] Prince Mir MD [address] [facility] [address] [place] [address] documented as of this encounter Visit Diagnoses Not on filedocumented in this encounter Care Teams Hotel Manager Relationship Specialty Start Date End Date Abrahan Mcgee MD [address] [place] [address] PCP - General Family Practice 04/03/24 documented as of this encounter
--- OUTSIDE RECORDS SUMMARY | 2025-01-21 22:49 | XMS_ITS | Encounter Summary ---
Author Organization [facility] Address [address] [place] [address] Care Team Providers Care Auto Radiator Specialist Name Role Phone Abrahan Mcgee MD Primary Care Provider [phone] Encounter Details Date Type Department Care Team (Latest Contact Info) Description 11/01/2003 Outpatient Historical HIS [facility] Sneed, Oscar Medeiros MD NO ADDRESS ON FILE SCREENING MAMM-MAILG NEOPL-OTHER (Primary Dx) Social History Tobacco Use Types Packs/Day Years Used Date Smoking Tobacco: Never Assessed Comments Unknown Sex and Gender Information Value Date Recorded Sex Assigned at Not on file Legal Sex Female 3:33 AM LAUNDRY MARKER SUPERVISOR Gender Identity Not on file Sexual Orientation Not on file documented as of this encounter Plan of Treatment Upcoming Encounters Date Type Department Care Team (Late st Contact Info) Description 04/04/2025 11:00 AM LAUNDRY MARKER SUPERVISOR Office Visit [facility] Oncology and Hematology - [address] [place] [address] Prince Mir MD [address] [place] [address] [address] [place] [address] documented as of this encounter Visit Diagnoses Diagnosis Other screening mammogram- Primary documented in this encounter Care Teams Auto Radiator Specialist Relationship Specialty Start Date End Date Abrahan Mcgee MD [address] [place] [address] PCP - General Family Practice 04/03/24 documented as of this encounter
--- OUTSIDE RECORDS SUMMARY | 2025-01-21 22:49 | XMS_ITS | Encounter Summary ---
Author Organization [facility] Address [address] [place] [address] Care Team Providers Care Internal Combustion Engineer Name Role Phone Abrahan Mcgee MD Primary Care Provider [phone] Encounter Details Date Type Department Care Team (Latest Contact Info) Description 06/11/2005 Outpatient Historical HIS [facility] Andre Vidal MD NO ADDRESS ON FILE Headache (Primary Dx) Social History Tobacco Use Types Packs/Day Years Used Date Smoking Tobacco: Never Assessed Comments Unknown Sex and Gender Information Value Date Recorded Sex Assigned at Not on file Legal Sex Female 3:33 AM RECEPTIONIST AIRLINE LOUNGE Gender Identity Not on file Sexual Orientation Not on file documented as of this encounter Plan of Treatment Upcoming Encounters Date Type Department Care Team (Late st Contact Info) Description 04/04/2025 11:00 AM RECEPTIONIST AIRLINE LOUNGE Office Visit [facility] Oncology and Hematology - [place] [address] [facility] [address] [place] [address] Prince Mir MD [address] [facility] [address] [place] [address] documented as of this encounter Procedures Procedure Name Priority Date/Time Associated Diagnosis Comments CBC WITH DIFFERENTIAL Routine 06/11/2005 11:29 AM CDT CBC WITH DIFFERENTIAL Routine 06/11/2005 11:29 AM CDT COMPREHENSIVE METABOLIC PANEL Routine 06/11/2005 11:29 AM CDT documented in this encounter Results * CBC WITH DIFFERENTIAL (06/11/2005 11:29 AM CDT) Pathologist [facility] NEUTROPHILS 65 45 - 70 % INTERFAC [...] ORDERABLES Final Re sult Performing Organization Address [facility] Phone Number INTERFACE SYSTEM Refer to clinic/hospital department * (ABNORMAL) CBC WITH DIFFERENTIAL (06/11/2005 11:29 AM CDT) [facility] WBC 8.1 4.0 - 9.8 K/uL INTERFACE [...] ORDERABLES Final Re sult Performing Organization Address [facility] Co de Phone Number INTERFACE [...] Headache documented in this encounter Care Teams Internal Combustion Engineer Relationship Specialty Start Date End Date Abrahan Mcgee MD [address] [place] [address] PCP - General Family Practice 04/03/24 documented as of this encounter
--- OUTSIDE RECORDS SUMMARY | 2025-01-21 22:49 | XMS_ITS | Encounter Summary ---
Author Organization [facility] Address [address] [place] [address] Care Team Providers Care Metal Cabinet Finisher Name Role Phone Abrahan Mcgee MD Primary Care Provider Encounter Details Date Type Department Care Team (Late st Contact Info) Description 03/16/2002 Outpatient Historical HIS [facility] INTERNISTS Andre Ernst MD NO ADDRESS ON FILE Social History Tobacco Use Types Packs/Day Years Used Date Smoking Tobacco: Never Assessed Comments Unknown Sex and Gender Information Value Date Recorded Sex Assigned at Not on file Legal Sex Female 3:33 AM SOUS CHEF KITCHEN MANAGER Gender Identity Not on file Sexual Orientation Not on file documented as of this encounter Plan of Treatment Upcoming Encounters Date Type Department Care Team (Late st Contact Info) Description 04/04/2025 11:00 AM SOUS CHEF KITCHEN MANAGER Office Visit [facility] Oncology and Hematology - [place] [address] [place] [address] [address] [place] [address] Prince Mir MD [address] [facility] [address] [place] [address] documented as of this encounter Visit Diagnoses Not on filedocumented in this encounter Care Teams Metal Cabinet Finisher Relationship Specialty Start Date End Date Abrahan Mcgee MD [address] [place] [address] PCP - General Family Practice 04/03/24 documented as of this encounter
--- OUTSIDE RECORDS SUMMARY | 2025-01-21 22:49 | XMS_ITS | Encounter Summary ---
Author Organization [facility] Address [address] [place] [address] Care Team Providers Care Search Lead Name Role Phone Abrahan Mcgee MD Primary Care Provider [phone] Encounter Details Date Type Department Care Team (Late st Contact Info) Description 11/19/2003 Outpatient Historical HIS [facility] INTERNISTS Andre Ernst MD NO ADDRESS ON FILE Social History Tobacco Use Types Packs/Day Years Used Date Smoking Tobacco: Never Assessed Comments Unknown Sex and Gender Information Value Date Recorded Sex Assigned at Not on file Legal Sex Female 3:33 AM BLEACH BOILER FILLER Gender Identity Not on file Sexual Orientation Not on file documented as of this encounter Plan of Treatment Upcoming Encounters Date Type Department Care Team (Late st Contact Info) Description 04/04/2025 11:00 AM BLEACH BOILER FILLER Office Visit [facility] Oncology and Hematology - [place] [address] [place] [address] [address] [place] [address] Prince Mir MD [address] [facility] [address] [place] [address] documented as of this encounter Visit Diagnoses Not on filedocumented in this encounter Care Teams Search Lead Relationship Specialty Start Date End Date Abrahan Mcgee MD [address] [place] [address] PCP - General Family Practice 04/03/24 documented as of this encounter
--- OUTSIDE RECORDS SUMMARY | 2025-01-21 22:49 | XMS_ITS | Encounter Summary ---
Author Organization [facility] Address [address] [place] [address] Care Team Providers Care Activities Director Scouting Name Role Phone Abrahan Mcgee MD Primary Care Provider [phone] Encounter Details Date Type Department Care Team (Late st Contact Info) Description 07/23/2003 Outpatient Historical HIS MRI DEPT Meryl Perry MD [address] [address] UTERINE LEIOMYOMA NOS (Primary Dx) Social History Tobacco Use Types Packs/Day Years Used Date Smoking Tobacco: Never Assessed Comments Unknown Sex and Gender Information Value Date Recorded Sex Assigned at Not on file Legal Sex Female 3:33 AM LADLE MECHANIC Gender Identity Not on file Sexual Orientation Not on file documented as of this encounter Plan of Treatment Upcoming Encounters Date Type Department Care Team (Late st Contact Info) Description 04/04/2025 11:00 AM LADLE MECHANIC Office Visit [facility] Oncology and Hematology - [place] [address] [place] [address] [address] [place] [address] Prince Mir MD [address] [facility] [address] [place] [address] documented as of this encounter Visit Diagnoses Diagnosis Leiomyoma of uterus, unspecified- Primary documented in this encounter Care Teams Activities Director Scouting Relationship Specialty Start Date End Date Abrahan Mcgee MD [address] [place] [address] PCP - General Family Practice 04/03/24 documented as of this encounter
--- OUTSIDE RECORDS SUMMARY | 2025-01-21 22:49 | XMS_ITS | Encounter Summary ---
Author Organization [facility] Address [address] [place] [address] Care Team Providers Care Meat Manager Name Role Phone Abrahan Mcgee MD Primary Care Provider [phone] Encounter Details Date Type Department Care Team (Latest Contact Info) Description 03/22/2001 Outpatient Historical HIS [facility] ЕКАТЕРИНА Ernst, Andre Guardado MD NO ADDRESS ON FILE BENIGN HYPERTENSION (Primary Dx) Social History Tobacco Use Types Packs/Day Years Used Date Smoking Tobacco: Never Assessed Comments Unknown Sex and Gender Information Value Date Recorded Sex Assigned at Not on file Legal Sex Female 3:33 AM BUILD MASTER Gender Identity Not on file Sexual Orientation Not on file documented as of this encounter Plan of Treatment Upcoming Encounters Date Type Department Care Team (Late st Contact Info) Description 04/04/2025 11:00 AM BUILD MASTER Office Visit [facility] Oncology and Hematology - [place] [address] [facility] [address] [place] [address] [place] [address] [place] [address] [address] [place] [address] documented as of this encounter Visit Diagnoses Diagnosis Essential hypertension, benign- Primary documented in this encounter Care Teams Meat Manager Relationship Specialty Start Date End Date Abrahan Mcgee MD [address] [place] [address] PCP - General Family Practice 04/03/24 documented as of this encounter
--- OUTSIDE RECORDS SUMMARY | 2025-01-21 22:49 | XMS_ITS | Encounter Summary ---
Author Organization [facility] Address [address] [place] [address] Care Team Providers Care Communications Department Head Name Role Phone Abrahan Mcgee MD Primary Care Provider [phone] Encounter Details Date Type Department Care Team (Latest Contact Info) Description 09/16/2004 Outpatient Historical HIS [facility] Andre Vidal MD NO ADDRESS ON FILE BENIGN HYPERTENSION (Primary Dx) Social History Tobacco Use Types Packs/Day Years Used Date Smoking Tobacco: Never Assessed Comments Unknown Sex and Gender Information Value Date Recorded Sex Assigned at Not on file Legal Sex Female 3:33 AM HYDRAULIC AND PLUMBING INSTALLER Gender Identity Not on file Sexual Orientation Not on file documented as of this encounter Plan of Treatment Upcoming Encounters Date Type Department Care Team (Late st Contact Info) Description 04/04/2025 11:00 AM HYDRAULIC AND PLUMBING INSTALLER Office Visit [facility] Oncology and Hematology - [place] [address] [facility] [address] [place] [address] Prince Mir MD [address] [facility] [address] [place] [address] documented as of this encounter [...] Final Re sult Performing Organization Address [facility] de Phone Number INTERFACE [...] ORDERABLES Final Res ult Performing Organization Address [facility] de Phone Number INTERFACE [...] ORDERABLES Final Res ult Performing Organization Address [facility] Phone Number INTERFACE SYSTEM Refer to clinic/hospital department documented in this encounter Visit Diagnoses Diagnosis Essential hypertension, benign- Primary documented in this encounter Care Teams Communications Department Head Relationship Specialty Start Date End Date Abrahan Mcgee MD [address] [place] [address] PCP - General Family Practice 04/03/24 documented as of this encounter
--- OUTSIDE RECORDS SUMMARY | 2025-01-21 22:49 | XMS_ITS | Encounter Summary ---
Author Organization [facility] Address [address] [place] [address] Care Team Providers Care Natural Sciences Manager Name Role Phone Abrahan Mcgee MD Primary Care Provider Encounter Details Date Type Department Care Team (Late st Contact Info) Description 07/30/2005 Outpatient Historical HIS [facility] Andre Ernst MD NO ADDRESS ON FILE Social History Tobacco Use Types Packs/Day Years Used Date Smoking Tobacco: Never Assessed Comments Unknown Sex and Gender Information Value Date Recorded Sex Assigned at Not on file Legal Sex Female 3:33 AM MAPPING SPECIALIST Gender Identity Not on file Sexual Orientation Not on file documented as of this encounter Plan of Treatment Upcoming Encounters Date Type Department Care Team (Late st Contact Info) Description 04/04/2025 11:00 AM MAPPING SPECIALIST Office Visit [facility] Oncology and Hematology - [place] [address] [place] [address] [address] [place] [address] Prince Mir MD [address] [facility] [address] [place] [address] documented as of this encounter Visit Diagnoses Not on filedocumented in this encounter Care Teams Natural Sciences Manager Relationship Specialty Start Date End Date Abrahan Mcgee MD [address] [place] [address] PCP - General Family Practice 04/03/24 documented as of this encounter
--- OUTSIDE RECORDS SUMMARY | 2025-01-21 22:49 | XMS_ITS | Encounter Summary ---
Author Organization [facility] Address [address] [place] [address] Care Team Providers Care Percolator Operator Name Role Phone Abrahan Mcgee MD Primary Care Provider [phone] Encounter Details Date Type Department Care Team (Latest Contact Info) Description 11/24/2005 Outpatient Historical HIS [facility] ЕКАТЕРИНА Sneed, Oscar Medeiros MD NO ADDRESS ON FILE Other Screening Mammogram (Primary Dx) Social History Tobacco Use Types Packs/Day Years Used Date Smoking Tobacco: Never Assessed Comments Unknown Sex and Gender Information Value Date Recorded Sex Assigned at Not on file Legal Sex Female 3:33 AM MEDICAL RADIATION TECH Gender Identity Not on file Sexual Orientation Not on file documented as of this encounter Plan of Treatment Upcoming Encounters Date Type Department Care Team (Late st Contact Info) Description 04/04/2025 11:00 AM MEDICAL RADIATION TECH Office Visit [facility] Oncology and Hematology - [place] [address] [facility] [address] [place] [address] [place] [address] [place] [address] [address] [place] [address] documented as of this encounter Visit Diagnoses Diagnosis Other screening mammogram- Primary documented in this encounter Care Teams Percolator Operator Relationship Specialty Start Date End Date Abrahan Mcgee MD [address] [place] [address] PCP - General Family Practice 04/03/24 documented as of this encounter
--- OUTSIDE RECORDS SUMMARY | 2025-01-21 22:49 | XMS_ITS | Encounter Summary ---
Author Organization [facility] Address [address] [place] [address] Care Team Providers Care Grinding Machine Tender Name Role Phone Abrahan Mcgee MD Primary Care Provider [phone] Encounter Details Date Type Department Care Team (Latest Contact Info) Description 01/06/2006 Outpatient Historical HIS [facility] ЕКАТЕРИНА Ernst, Andre Guardado MD NO ADDRESS ON FILE Cervicalgia (Primary Dx) Social History Tobacco Use Types Packs/Day Years Used Date Smoking Tobacco: Never Assessed Comments Unknown Sex and Gender Information Value Date Recorded Sex Assigned at Not on file Legal Sex Female 3:33 AM JAVA ENTERPRISE ARCHITECT Gender Identity Not on file Sexual Orientation Not on file documented as of this encounter Plan of Treatment Upcoming Encounters Date Type Department Care Team (Late st Contact Info) Description 04/04/2025 11:00 AM JAVA ENTERPRISE ARCHITECT Office Visit [facility] Oncology and Hematology - [place] [address] [facility] [address] [place] [address] Prince Mir MD [address] [facility] [address] [place] [address] documented as of this encounter Visit Diagnoses Diagnosis Cervicalgia- Primary documented in this encounter Care Teams Grinding Machine Tender Relationship Specialty Start Date End Date Abrahan Mcgee MD [address] [place] [address] PCP - General Family Practice 04/03/24 documented as of this encounter
--- OUTSIDE RECORDS SUMMARY | 2025-01-21 22:49 | XMS_ITS | Encounter Summary ---
Author Organization [facility] Address [address] [facility] Attn: Epic Prelude ADT [place] [address] Care Team Providers Care Citrix Administrator Name Role Phone Abrahan Mcgee MD [...] file Legal Sex Female 3:33 AM INDUSTRIAL ECOLOGIST Gender Identity Not on file Sexual Orientation Not on file documented as of this encounter Plan of Treatment Upcoming Encounters Date Type Department Care Team (Late st Contact Info) Description 04/04/2025 11:00 AM INDUSTRIAL ECOLOGIST Office Visit [facility] Oncology and Hematology - [place] [address] [place] [address] [address] [place] [address] [place] [address] [place] [address] [address] [place] [address] documented as of this encounter Visit Diagnoses Not on filedocumented in this encounter Care Teams Citrix Administrator Relationship Specialty Start Date End Date Abrahan Mcgee MD [address] [place] [address] PCP - General Family Practice 04/03/24 documented as of this encounter
--- OUTSIDE RECORDS SUMMARY | 2025-01-21 22:49 | XMS_ITS | Encounter Summary ---
Author Organization [facility] Address [address] [place] [address] Care Team Providers Care Rules Examiner Name Role Phone Abrahan Mcgee MD [...] file Legal Sex Female 3:33 AM COMPUTER SYSTEMS CONSULTANT Gender Identity Not on file Sexual Orientation Not on file documented as of this encounter Plan of Treatment Upcoming Encounters Date Type Department Care Team (Late st Contact Info) Description 04/04/2025 11:00 AM COMPUTER SYSTEMS CONSULTANT Office Visit [facility] Oncology and Hematology - [place] [address] [place] [address] [address] [place] [address] [place] [address] [place] [address] [address] [place] [address] documented as of this encounter Visit Diagnoses Diagnosis Allergic rhinitis due to pollen- Primary documented in this encounter Care Teams Rules Examiner Relationship Specialty Start Date End Date Abrahan Mcgee MD [address] [place] [address] PCP - General Family Practice 04/03/24 documented as of this encounter
--- OUTSIDE RECORDS SUMMARY | 2025-01-21 22:49 | XMS_ITS | Encounter Summary ---
Author Organization [facility] Address [address] [place] [address] Care Team Providers Care Residence Hall Director Name Role Phone Abrahan Mcgee MD Primary Care Provider [phone] Encounter Details Date Type Department Care Team (Late st Contact Info) Description 11/26/2000 Outpatient Historical HIS [facility] Andre Ernst MD NO ADDRESS ON FILE Social History Tobacco Use Types Packs/Day Years Used Date Smoking Tobacco: Never Assessed Comments Unknown Sex and Gender Information Value Date Recorded Sex Assigned at Not on file Legal Sex Female 3:33 AM PAPER SEALER Gender Identity Not on file Sexual Orientation Not on file documented as of this encounter Plan of Treatment Upcoming Encounters Date Type Department Care Team (Late st Contact Info) Description 04/04/2025 11:00 AM PAPER SEALER Office Visit [facility] Oncology and Hematology - [place] [address] [place] [address] [address] [place] [address] Prince Mir MD [address] [facility] [address] [place] [address] documented as of this encounter Visit Diagnoses Not on filedocumented in this encounter Care Teams Residence Hall Director Relationship Specialty Start Date End Date Abrahan Mcgee MD [address] [place] [address] PCP - General Family Practice 04/03/24 documented as of this encounter
--- OUTSIDE RECORDS SUMMARY | 2025-01-21 22:49 | XMS_ITS | Encounter Summary ---
Author Organization [facility] Address [address] [place] [address] Care Team Providers Care Cocoa Mill Operator Name Role Phone Abrahan Mcgee MD Primary Care Provider [phone] Encounter Details Date Type Department Care Team (Latest Contact Info) Description 11/19/2003 Outpatient Historical HIS [facility] ЕКАТЕРИНА Ernst, Andre Guardado MD NO ADDRESS ON FILE HYPOPOTASSEMIA (Primary Dx) Social History Tobacco Use Types Packs/Day Years Used Date Smoking Tobacco: Never Assessed Comments Unknown Sex and Gender Information Value Date Recorded Sex Assigned at Not on file Legal Sex Female 3:33 AM PLANNING AND ANALYSIS MANAGER Gender Identity Not on file Sexual Orientation Not on file documented as of this encounter Plan of Treatment Upcoming Encounters Date Type Department Care Team (Late st Contact Info) Description 04/04/2025 11:00 AM PLANNING AND ANALYSIS MANAGER Office Visit [facility] Oncology and Hematology - [place] [address] [facility] [address] [place] [address] [place] [address] [place] [address] [address] [place] [address] documented as of this encounter Visit Diagnoses Diagnosis Hypopotassemia- Primary documented in this encounter Care Teams Cocoa Mill Operator Relationship Specialty Start Date End Date Abrahan Mcgee MD [address] [place] [address] PCP - General Family Practice 04/03/24 documented as of this encounter
--- OUTSIDE RECORDS SUMMARY | 2025-01-21 22:49 | XMS_ITS | Encounter Summary ---
Author Organization [facility] Address [address] [place] [address] Care Team Providers Care Director Human Services Name Role Phone Abrahan Mcgee MD Primary Care Provider [phone] Encounter Details Date Type Department Care Team (Late st Contact Info) Description 02/24/2002 Outpatient Historical HIS [facility] Andre Ernst MD NO ADDRESS ON FILE Social History Tobacco Use Types Packs/Day Years Used Date Smoking Tobacco: Never Assessed Comments Unknown Sex and Gender Information Value Date Recorded Sex Assigned at Not on file Legal Sex Female 3:33 AM LACE ROLLER Gender Identity Not on file Sexual Orientation Not on file documented as of this encounter Plan of Treatment Upcoming Encounters Date Type Department Care Team (Late st Contact Info) Description 04/04/2025 11:00 AM LACE ROLLER Office Visit [facility] Oncology and Hematology - [place] [address] [place] [address] [address] [place] [address] Prince Mir MD [address] [facility] [address] [place] [address] documented as of this encounter Visit Diagnoses Not on filedocumented in this encounter Care Teams Director Human Services Relationship Specialty Start Date End Date Abrahan Mcgee MD [address] [place] [address] PCP - General Family Practice 04/03/24 documented as of this encounter
--- OUTSIDE RECORDS SUMMARY | 2025-01-21 22:49 | XMS_ITS | Encounter Summary ---
Author Organization [facility] Address [address] [place] [address] Care Team Providers Care Marketing Services Manager Name Role Phone Abrahan Mcgee MD Primary Care Provider [phone] Encounter Details Date Type Department Care Team (Late st Contact Info) Description 03/29/2002 Outpatient Historical HIS MRI DEPT Andre Ernst MD NO ADDRESS ON FILE HEADACHE (Primary Dx) Social History Tobacco Use Types Packs/Day Years Used Date Smoking Tobacco: Never Assessed Comments Unknown Sex and Gender Information Value Date Recorded Sex Assigned at Not on file Legal Sex Female 3:33 AM UPSET OPERATOR Gender Identity Not on file Sexual Orientation Not on file documented as of this encounter Plan of Treatment Upcoming Encounters Date Type Department Care Team (Late st Contact Info) Description 04/04/2025 11:00 AM UPSET OPERATOR Office Visit [facility] Oncology and Hematology - [place] [address] [place] [address] [address] [place] [address] [place] [address] [place] [address] [address] [place] [address] documented as of this encounter Visit Diagnoses Diagnosis Headache(784.0)- Primary Headache documented in this encounter Care Teams Marketing Services Manager Relationship Specialty Start Date End Date Abrahan Mcgee MD [address] [place] [address] PCP - General Family Practice 04/03/24 documented as of this encounter
--- OUTSIDE RECORDS SUMMARY | 2025-01-21 22:49 | XMS_ITS | Encounter Summary ---
Author Organization [facility] Address [address] [place] [address] Care Team Providers Care Aircraft Power Plant Assembler Name Role Phone Abrahan Mcgee MD Primary Care Provider [phone] Encounter Details Date Type Department Care Team (Latest Contact Info) Description 03/06/2004 Outpatient Historical HIS [facility] Andre Vidal MD NO ADDRESS ON [...] 04/04/2025 11:00 AM CHARGEMASTER SPECIALIST Office Visit [facility] Oncology and Hematology - [place] [address] [facility] [address] [place] [address] Prince Mir MD [address] [facility] [address] [place] [address] documented as of this encounter Procedures Procedure Name Priority Date/Time Associated Diagnosis Comments COMPREHENSIVE METABOLIC PANEL Routine 03/06/2004 11:12 AM CHARGEMASTER SPECIALIST documented in this encounter Results * (ABNORMAL) COMPREHENSIVE METABOLIC PANEL (03/06/2004 11:12 AM CHARGEMASTER SPECIALIST) GLUCOSE 95 65 - 109 mg/dL INTERFACE [...] by 2nd methodology. 03/06/2004 11:1 2 AM CHARGEMASTER SPECIALIST us Andre Ernst MD CHEMISTRY ORDERABLES Final Res ult INTERFACE SYSTEM Refer to clinic/hospital department documented in this encounter Visit Diagnoses Diagnosis Hypopotassemia- Primary documented in this encounter Care Teams Aircraft Power Plant Assembler Relationship Specialty Start Date End Date Abrahan Mcgee MD [address] [place] [address] PCP - General Family Practice 04/03/24 documented as of this encounter
--- OUTSIDE RECORDS SUMMARY | 2025-01-21 22:49 | XMS_ITS | Encounter Summary ---
Author Organization [facility] Address [address] [place] [address] Care Team Providers Care Stock Clipper Name Role Phone Abrahan Mcgee MD Primary Care Provider [phone] Encounter Details Date Type Department Care Team (Late st Contact Info) Description 01/06/2006 Outpatient Historical HIS [facility] Andre Ernst MD NO ADDRESS ON FILE Social History Tobacco Use Types Packs/Day Years Used Date Smoking Tobacco: Never Assessed Comments Unknown Sex and Gender Information Value Date Recorded Sex Assigned at Not on file Legal Sex Female 3:33 AM CATTLE RANCHER Gender Identity Not on file Sexual Orientation Not on file documented as of this encounter Plan of Treatment Upcoming Encounters Date Type Department Care Team (Late st Contact Info) Description 04/04/2025 11:00 AM CATTLE RANCHER Office Visit [facility] Oncology and Hematology - [place] [address] [place] [address] [address] [place] [address] Prince Mir MD [address] [facility] [address] [place] [address] documented as of this encounter Visit Diagnoses Not on filedocumented in this encounter Care Teams Stock Clipper Relationship Specialty Start Date End Date Abrahan Mcgee MD [address] [place] [address] PCP - General Family Practice 04/03/24 documented as of this encounter
--- OUTSIDE RECORDS SUMMARY | 2025-01-21 22:49 | XMS_ITS | Clinical Summary ---
Author Organization [facility] Address [address] [place] [address] Care Team Providers Care Manufacturing Engineer Automotive Name Role Phone Luigi Nicole PA-C Primary Care Provider Luigi Nicole PA-C Unavailable [phone] Allergies Active Allergy Reactions Criticality Noted Date [...] (eight) hours as needed. 07/08/19 Active ZENPEP 78954-19860 units CAPSULE ENTERIC COATED PARTICLES Take by [...] mouth nightly. Every other month Active Pancrelipase, Yzu-Edul-Vkia, [address]60-[address] units CAPSULE ENTERIC COATED PARTICLES Take 50,000 [...] drink = 0.6 oz pur e alcohol) [facility] Utilities Answer Date Recorded In the [...] any time in the past 12 m [facility], were you homeless or living in a [place] health care facility (including now)? No 08/20/2023 Comments No Sex [...] patient's age to complete this topic Insurance [facility] MEDICARE [facility] MEDICARE Advance Directives * Full Code (Latest Code Status on File) Date Activated Date Inactivated Comments 08/20/2023 10:05 AM 08/21/2023 1:30 PM Care Teams Manufacturing Engineer Automotive Relationship Specialty Start Date End Date Luigi Nicole PA-C [address] [place] [address] [place] [address] PCP - General PHYSICIAN PUBLIC WORKS SUPERVISOR 08/20/23 Luigi Nicole PA-C [address] [place] [address] [place] [id number] PHYSICIAN PUBLIC WORKS SUPERVISOR 08/20/23
--- OUTSIDE RECORDS SUMMARY | 2025-01-21 22:49 | XMS_ITS | Encounter Summary ---
Author Organization [facility] Address [address] [place] [address] Care Team Providers Care Staff Certified Nurse Midwife Name Role Phone Abrahan Mcgee MD Primary Care Provider [phone] Encounter Details Date Type Department Care Team (Latest Contact Info) Description 03/16/2002 Outpatient Historical HIS [facility] ЕКАТЕРИНА Ernst, Andre Guardado MD NO ADDRESS ON FILE BENIGN HYPERTENSION (Primary Dx) Social History Tobacco Use Types Packs/Day Years Used Date Smoking Tobacco: Never Assessed Comments Unknown Sex and Gender Information Value Date Recorded Sex Assigned at Not on file Legal Sex Female 3:33 AM CAFE COOK Gender Identity Not on file Sexual Orientation Not on file documented as of this encounter Plan of Treatment Upcoming Encounters Date Type Department Care Team (Late st Contact Info) Description 04/04/2025 11:00 AM CAFE COOK Office Visit [facility] Oncology and Hematology - [place] [address] [facility] [address] [place] [address] [place] [address] [place] [address] [address] [place] [address] documented as of this encounter Visit Diagnoses Diagnosis Essential hypertension, benign- Primary documented in this encounter Care Teams Staff Certified Nurse Midwife Relationship Specialty Start Date End Date Abrahan Mcgee MD [address] [place] [address] PCP - General Family Practice 04/03/24 documented as of this encounter
--- OUTSIDE RECORDS SUMMARY | 2025-01-21 22:49 | XMS_ITS | Encounter Summary ---
Author Organization [facility] Address [address] [place] [address] Care Team Providers Care Photo Mask Pattern Generator Name Role Phone Abrahan Mcgee MD Primary Care Provider [phone] Encounter Details Date Type Department Care Team (Latest Contact Info) Description 11/26/2000 Outpatient Historical HIS [facility] ЕКАТЕРИНА Ernst, Andre Guardado MD NO ADDRESS ON FILE Essential hypertension, benign (Primary Dx) Social History Tobacco Use Types Packs/Day Years Used Date Smoking Tobacco: Never Assessed Comments Unknown Sex and Gender Information Value Date Recorded Sex Assigned at Not on file Legal Sex Female 3:33 AM BOBJ DEVELOPER Gender Identity Not on file Sexual Orientation Not on file documented as of this encounter Plan of Treatment Upcoming Encounters Date Type Department Care Team (Late st Contact Info) Description 04/04/2025 11:00 AM BOBJ DEVELOPER Office Visit [facility] Oncology and Hematology - [place] [address] [facility] [address] [place] [address] [place] [address] [place] [address] [address] [place] [address] documented as of this encounter Visit Diagnoses Diagnosis Essential hypertension, benign- Primary documented in this encounter Care Teams Photo Mask Pattern Generator Relationship Specialty Start Date End Date Abrahan Mcgee MD [address] [place] [address] PCP - General Family Practice 04/03/24 documented as of this encounter
--- OUTSIDE RECORDS SUMMARY | 2025-01-21 22:49 | XMS_ITS | Encounter Summary ---
Author Organization [facility] Address [address] [place] [address] Care Team Providers Care Hot Dog Vendor Name Role Phone Abrahan Mcgee MD Primary Care Provider Encounter Details Date Type Department Care Team (Late st Contact Info) Description 07/09/2005 Outpatient Historical HIS [facility] Andre Ernst MD NO ADDRESS ON FILE Social History Tobacco Use Types Packs/Day Years Used Date Smoking Tobacco: Never Assessed Comments Unknown Sex and Gender Information Value Date Recorded Sex Assigned at Not on file Legal Sex Female 3:33 AM SURGICAL SERVICES ASST Gender Identity Not on file Sexual Orientation Not on file documented as of this encounter Plan of Treatment Upcoming Encounters Date Type Department Care Team (Late st Contact Info) Description 04/04/2025 11:00 AM SURGICAL SERVICES ASST Office Visit [facility] Oncology and Hematology - [place] [address] [place] [address] [address] [place] [address] Prince Mir MD [address] [facility] [address] [place] [address] documented as of this encounter Visit Diagnoses Not on filedocumented in this encounter Care Teams Hot Dog Vendor Relationship Specialty Start Date End Date Abrahan Mcgee MD [address] [place] [address] PCP - General Family Practice 04/03/24 documented as of this encounter
--- OUTSIDE RECORDS SUMMARY | 2025-01-21 22:49 | XMS_ITS | Encounter Summary ---
Author Organization [facility] Address [address] [place] [address] Care Team Providers Care Hook And Eye Machine Operator Name Role Phone Abrahan Mcgee [...] on file Legal Sex Female 3:33 AM STEVEDORE HOLD Gender Identity Not on file Sexual Orientation Not on file documented as of this encounter Plan of Treatment Upcoming Encounters Date Type Department Care Team (Late st Contact Info) Description 04/04/2025 11:00 AM STEVEDORE HOLD Office Visit [facility] Oncology and Hematology - [place] [address] [place] [address] [address] [place] [address] Prince Mir MD [address] [place] [address] [address] [place] [address] documented as of this encounter Visit Diagnoses Diagnosis Open wound of scalp, without mention of complication- Primary documented in this encounter Care Teams Hook And Eye Machine Operator Relationship Specialty Start Date End Date Abrahan Mcgee MD [address] [place] [address] PCP - General Family Practice 04/03/24 documented as of this encounter
--- OUTSIDE RECORDS SUMMARY | 2025-01-21 22:49 | XMS_ITS | Encounter Summary ---
Author Organization [facility] Address [address] [place] [address] Care Team Providers Care Book Salesman Name Role Phone Abrahan Mcgee MD Primary Care Provider [phone] Encounter Details Date Type Department Care Team (Latest Contact Info) Description 10/17/2002 Outpatient Historical HIS [facility] ЕКАТЕРИНА Ernst, Andre Guardado MD NO ADDRESS ON FILE SOLITARY CYST OF BREAST (Primary Dx) Social History Tobacco Use Types Packs/Day Years Used Date Smoking Tobacco: Never Assessed Comments Unknown Sex and Gender Information Value Date Recorded Sex Assigned at Not on file Legal Sex Female 3:33 AM BUILDING ARCHITECT Gender Identity Not on file Sexual Orientation Not on file documented as of this encounter Plan of Treatment Upcoming Encounters Date Type Department Care Team (Late st Contact Info) Description 04/04/2025 11:00 AM BUILDING ARCHITECT Office Visit [facility] Oncology and Hematology - [place] [address] [facility] [address] [place] [address] [place] [address] [place] [address] [address] [place] [address] documented as of this encounter Visit Diagnoses Diagnosis Solitary cyst of breast- Primary documented in this encounter Care Teams Book Salesman Relationship Specialty Start Date End Date Abrahan Mcgee MD [address] [place] [address] PCP - General Family Practice 04/03/24 documented as of this encounter
--- OUTSIDE RECORDS SUMMARY | 2025-01-21 22:49 | XMS_ITS | Encounter Summary ---
Author Organization [facility] Address [address] [place] [address] Care Team Providers Care Trick Rodeo Rider Name Role Phone Abrahan Mcgee MD Primary Care Provider [phone] Encounter Details Date Type Department Care Team (Latest Contact Info) Description 02/07/2004 Outpatient Historical HIS [facility] ЕКАТЕРИНА Ernst, Andre Guardado MD NO ADDRESS ON FILE BENIGN HYPERTENSION (Primary Dx) Social History Tobacco Use Types Packs/Day Years Used Date Smoking Tobacco: Never Assessed Comments Unknown Sex and Gender Information Value Date Recorded Sex Assigned at Not on file Legal Sex Female 3:33 AM RETAIL COVERAGE MERCHANDISER Gender Identity Not on file Sexual Orientation Not on file documented as of this encounter Plan of Treatment Upcoming Encounters Date Type Department Care Team (Late st Contact Info) Description 04/04/2025 11:00 AM RETAIL COVERAGE MERCHANDISER Office Visit [facility] Oncology and Hematology - [place] [address] [facility] [address] [place] [address] [place] [address] [place] [address] [address] [place] [address] documented as of this encounter Visit Diagnoses Diagnosis Essential hypertension, benign- Primary documented in this encounter Care Teams Trick Rodeo Rider Relationship Specialty Start Date End Date Abrahan Mcgee MD [address] [place] [address] PCP - General Family Practice 04/03/24 documented as of this encounter
--- OUTSIDE RECORDS SUMMARY | 2025-01-21 22:49 | XMS_ITS | Encounter Summary ---
Author Organization [facility] Address [address] [place] [address] Care Team Providers Care Policewoman Name Role Phone Abrahan Mcgee MD Primary Care Provider [phone] Encounter Details Date Type Department Care Team (Latest Contact Info) Description 11/04/2001 Outpatient Historical HIS [facility] ЕКАТЕРИНА Ernst, Andre Guardado MD [...] st Contact Info) Description 04/04/2025 11:00 AM PMP PROJECT MANAGER Office Visit [facility] Oncology and Hematology - [place] [address] [facility] [address] [place] [address] [place] [address] [place] [address] [address] [place] [address] documented as of this encounter Visit Diagnoses Diagnosis Essential hypertension, benign- Primary documented in this encounter Care Teams Policewoman Relationship Specialty Start Date End Date Abrahan Mcgee MD [address] [place] [address] PCP - General Family Practice 04/03/24 documented as of this encounter
--- OUTSIDE RECORDS SUMMARY | 2025-01-21 22:49 | XMS_ITS | Encounter Summary ---
Author Organization [facility] Address [address] [place] [address] Care Team Providers Care Medical Charge Entry Specialist Name Role Phone Abrahan Mcgee MD Primary Care Provider Encounter Details Date Type Department Care Team (Late st Contact Info) Description 10/29/2000 Outpatient Historical HIS [facility] Andre Ernst MD NO ADDRESS ON FILE Social History Tobacco Use Types Packs/Day Years Used Date Smoking Tobacco: Never Assessed Comments Unknown Sex and Gender Information Value Date Recorded Sex Assigned at Not on file Legal Sex Female 3:33 AM SPRING PRODUCTION SUPERVISOR Gender Identity Not on file Sexual Orientation Not on file documented as of this encounter Plan of Treatment Upcoming Encounters Date Type Department Care Team (Late st Contact Info) Description 04/04/2025 11:00 AM SPRING PRODUCTION SUPERVISOR Office Visit [facility] Oncology and Hematology - [place] [address] [place] [address] [address] [place] [address] Prince Mir MD [address] [facility] [address] [place] [address] documented as of this encounter Visit Diagnoses Not on filedocumented in this encounter Care Teams Medical Charge Entry Specialist Relationship Specialty Start Date End Date Abrahan Mcgee MD [address] [place] [address] PCP - General Family Practice 04/03/24 documented as of this encounter
--- OUTSIDE RECORDS SUMMARY | 2025-01-21 22:49 | XMS_ITS | Encounter Summary ---
Author Organization [facility] Address [address] [place] [address] Care Team Providers Care Sausage Maker Name Role Phone Abrahan Mcgee MD Primary Care Provider [phone] Encounter Details Date Type Department Care Team (Latest Contact Info) Description 06/05/2004 Outpatient Historical HIS [facility] Andre Vidal MD NO ADDRESS ON FILE BENIGN HYPERTENSION (Primary Dx) Social History Tobacco Use Types Packs/Day Years Used Date Smoking Tobacco: Never Assessed Comments Unknown Sex and Gender Information Value Date Recorded Sex Assigned at Not on file Legal Sex Female 3:33 AM PAPER CUP HANDLE MACHINE OPERATOR Gender Identity Not on file Sexual Orientation Not on file documented as of this encounter Plan of Treatment Upcoming Encounters Date Type Department Care Team (Late st Contact Info) Description 04/04/2025 11:00 AM PAPER CUP HANDLE MACHINE OPERATOR Office Visit [facility] Oncology and Hematology - [place] [address] [facility] [address] [place] [address] Prince Mir MD [address] [facility] [address] [place] [address] documented as of this encounter [...] Primary documented in this encounter Care Teams Sausage Maker Relationship Specialty Start Date End Date Abrahan Mcgee MD [address] [place] [address] PCP - General Family Practice 04/03/24 documented as of this encounter
--- OUTSIDE RECORDS SUMMARY | 2025-01-21 22:49 | XMS_ITS | Encounter Summary ---
Author Organization [facility] Address [address] [place] [address] Care Team Providers Care Nightman Name Role Phone Abrahan Mcgee MD Primary Care Provider [phone] Encounter Details Date Type Department Care Team (Late st Contact Info) Description 07/27/2003 Outpatient Historical HIS [facility] ЕКАТЕРИНА Perry, Meryl Pereira MD [address] [address] ABNORMAL FINDINGS-GI TRACT (Primary Dx) Social History Tobacco Use Types Packs/Day Years Used Date Smoking Tobacco: Never Assessed Comments Unknown Sex and Gender Information Value Date Recorded Sex Assigned at Not on file Legal Sex Female 3:33 AM TRIAGE NURSE Gender Identity Not on file Sexual Orientation Not on file documented as of this encounter Plan of Treatment Upcoming Encounters Date Type Department Care Team (Late st Contact Info) Description 04/04/2025 11:00 AM TRIAGE NURSE Office Visit [facility] Oncology and Hematology - [place] [address] [place] [address] [address] [place] [address] Prince Mir MD [address] [facility] [address] [place] [address] documented as of this encounter Visit Diagnoses Diagnosis Nonspecific (abnormal) findings on radiological and other examination of gastrointestinal tract- Primary documented in this encounter Care Teams Nightman Relationship Specialty Start Date End Date Abrahan Mcgee MD [address] [place] [address] PCP - General Family Practice 04/03/24 documented as of this encounter
--- OUTSIDE RECORDS SUMMARY | 2025-01-21 22:49 | XMS_ITS | Encounter Summary ---
Author Organization [facility] Address [address] [place] [address] Care Team Providers Care Chemical Processing Laborer Name Role Phone Abrahan Mcgee MD Primary Care Provider Encounter Details Date Type Department Care Team (Late st Contact Info) Description 09/16/2004 Outpatient Historical HIS [facility] Andre Ernst MD NO ADDRESS ON FILE Social History Tobacco Use Types Packs/Day Years Used Date Smoking Tobacco: Never Assessed Comments Unknown Sex and Gender Information Value Date Recorded Sex Assigned at Not on file Legal Sex Female 3:33 AM NIGHTCLUB MANAGER Gender Identity Not on file Sexual Orientation Not on file documented as of this encounter Plan of Treatment Upcoming Encounters Date Type Department Care Team (Late st Contact Info) Description 04/04/2025 11:00 AM NIGHTCLUB MANAGER Office Visit [facility] Oncology and Hematology - [place] [address] [place] [address] [address] [place] [address] Prince Mir MD [address] [facility] [address] [place] [address] documented as of this encounter Visit Diagnoses Not on filedocumented in this encounter Care Teams Chemical Processing Laborer Relationship Specialty Start Date End Date Abrahan Mcgee MD [address] [place] [address] PCP - General Family Practice 04/03/24 documented as of this encounter
--- OUTSIDE RECORDS SUMMARY | 2025-01-21 22:49 | XMS_ITS | Encounter Summary ---
Author Organization [facility] Address [address] [place] [address] Care Team Providers Care Probate Clerk Name Role Phone Abrahan Mcgee MD Primary Care Provider [phone] Encounter Details Date Type Department Care Team (Late st Contact Info) Description 02/23/2005 Outpatient Historical [facility] [address] [address] Deisy Garcia MD [address] [address] Social History Tobacco Use Types Packs/Day Years Used Date Smoking Tobacco: Never Assessed Comments Unknown Sex and Gender Information Value Date Recorded Sex Assigned at Not on file Legal Sex Female 3:33 AM NETWORKS SOFTWARE CONSULTANT Gender Identity Not on file Sexual Orientation Not on file documented as of this encounter Plan of Treatment Upcoming Encounters Date Type Department Care Team (Late st Contact Info) Description 04/04/2025 11:00 AM NETWORKS SOFTWARE CONSULTANT Office Visit [facility] Oncology and Hematology - [place] [address] [place] [address] [address] [place] [address] Prince Mir MD [address] [facility] [address] [place] [address] documented as of this encounter Visit Diagnoses Not on filedocumented in this encounter Care Teams Probate Clerk Relationship Specialty Start Date End Date Abrahan Mcgee MD [address] [place] [address] PCP - General Family Practice 04/03/24 documented as of this encounter
--- OUTSIDE RECORDS SUMMARY | 2025-01-21 22:49 | XMS_ITS | Encounter Summary ---
Author Organization [facility] Address [address] [place] [address] Care Team Providers Care Legal Activity Adjudicator Name Role Phone Abrahan Mcgee MD Primary Care Provider Encounter Details Date Type Department Care Team (Late st Contact Info) Description 07/06/2003 Outpatient Historical HIS [facility] Andre Ernst MD NO ADDRESS ON FILE Social History Tobacco Use Types Packs/Day Years Used Date Smoking Tobacco: Never Assessed Comments Unknown Sex and Gender Information Value Date Recorded Sex Assigned at Not on file Legal Sex Female 3:33 AM ROLLER ENGRAVER Gender Identity Not on file Sexual Orientation Not on file documented as of this encounter Plan of Treatment Upcoming Encounters Date Type Department Care Team (Late st Contact Info) Description 04/04/2025 11:00 AM ROLLER ENGRAVER Office Visit [facility] Oncology and Hematology - [place] [address] [place] [address] [address] [place] [address] Prince Mir MD [address] [facility] [address] [place] [address] documented as of this encounter Visit Diagnoses Not on filedocumented in this encounter Care Teams Legal Activity Adjudicator Relationship Specialty Start Date End Date Abrahan Mcgee MD [address] [place] [address] PCP - General Family Practice 04/03/24 documented as of this encounter
--- OUTSIDE RECORDS SUMMARY | 2025-01-21 22:49 | XMS_ITS | Encounter Summary ---
Author Organization [facility] Address [address] [place] [address] Care Team Providers Care Retail Shift Manager Name Role Phone Abrahan Mcgee MD Primary Care Provider [phone] Encounter Details Date Type Department Care Team (Late st Contact Info) Description 02/23/2005 Outpatient Historical [facility] Support Serv. (Adt Cardiology-[place]) [address] [place] [address] Guero Malhotra MD NO ADDRESS ON FILE Social History Tobacco Use Types Packs/Day Years Used Date Smoking Tobacco: Never Assessed Comments Unknown Sex and Gender Information Value Date Recorded Sex Assigned at Not on file Legal Sex Female 3:33 AM BULK STATION OPERATOR Gender Identity Not on file Sexual Orientation Not on file documented as of this encounter Plan of Treatment Upcoming Encounters Date Type Department Care Team (Late st Contact Info) Description 04/04/2025 11:00 AM BULK STATION OPERATOR Office Visit [facility] Oncology and Hematology - [place] [address] [place] [address] [address] [place] [address] Prince Mir MD [address] [facility] [address] [place] [address] documented as of this encounter Visit Diagnoses Not on filedocumented in this encounter Care Teams Retail Shift Manager Relationship Specialty Start Date End Date Abrahan Mcgee MD [address] [place] [address] PCP - General Family Practice 04/03/24 documented as of this encounter
--- OUTSIDE RECORDS SUMMARY | 2025-01-21 22:49 | XMS_ITS | Encounter Summary ---
Author Organization [facility] Address [address] [place] [address] Care Team Providers Care Manager Data Warehouse Name Role Phone Abrahan Mcgee MD Primary Care Provider Encounter Details Date Type Department Care Team (Late st Contact Info) Description 03/22/2001 Outpatient Historical HIS [facility] Andre Ernst MD NO ADDRESS ON FILE Social History Tobacco Use Types Packs/Day Years Used Date Smoking Tobacco: Never Assessed Comments Unknown Sex and Gender Information Value Date Recorded Sex Assigned at Not on file Legal Sex Female 3:33 AM RAILS DEVELOPER Gender Identity Not on file Sexual Orientation Not on file documented as of this encounter Plan of Treatment Upcoming Encounters Date Type Department Care Team (Late st Contact Info) Description 04/04/2025 11:00 AM RAILS DEVELOPER Office Visit [facility] Oncology and Hematology - [place] [address] [place] [address] [address] [place] [address] Prince Mir MD [address] [facility] [address] [place] [address] documented as of this encounter Visit Diagnoses Not on filedocumented in this encounter Care Teams Manager Data Warehouse Relationship Specialty Start Date End Date Abrahan Mcgee MD [address] [place] [address] PCP - General Family Practice 04/03/24 documented as of this encounter
--- OUTSIDE RECORDS SUMMARY | 2025-01-21 22:49 | XMS_ITS | Encounter Summary ---
Author Organization [facility] Address [address] [place] [address] Care Team Providers Care Punchboard Inserter Name Role Phone Abrahan Mcgee MD Primary Care Provider Encounter Details Date Type Department Care Team (Late st Contact Info) Description 12/04/2005 Outpatient Historical HIS [facility] Andre Ernst MD NO ADDRESS ON FILE Social History Tobacco Use Types Packs/Day Years Used Date Smoking Tobacco: Never Assessed Comments Unknown Sex and Gender Information Value Date Recorded Sex Assigned at Not on file Legal Sex Female 3:33 AM WARP TRUCKER Gender Identity Not on file Sexual Orientation Not on file documented as of this encounter Plan of Treatment Upcoming Encounters Date Type Department Care Team (Late st Contact Info) Description 04/04/2025 11:00 AM WARP TRUCKER Office Visit [facility] Oncology and Hematology - [place] [address] [place] [address] [address] [place] [address] Prince Mir MD [address] [facility] [address] [place] [address] documented as of this encounter Visit Diagnoses Not on filedocumented in this encounter Care Teams Punchboard Inserter Relationship Specialty Start Date End Date Abrahan Mcgee MD [address] [place] [address] PCP - General Family Practice 04/03/24 documented as of this encounter
--- OUTSIDE RECORDS SUMMARY | 2025-01-21 22:49 | XMS_ITS | Encounter Summary ---
Author Organization [facility] Address [address] [place] [address] Care Team Providers Care Secretary Name Role Phone Abrahan Mcgee MD Primary Care Provider Encounter Details Date Type Department Care Team (Latest Contact Info) Description 08/15/2003 Outpatient Historical HIS [facility] ЕКАТЕРИНА Ernst, Andre Guardado MD NO ADDRESS ON FILE HYPOPOTASSEMIA (Primary Dx) Social History Tobacco Use Types Packs/Day Years Used Date Smoking Tobacco: Never Assessed Comments Unknown Sex and Gender Information Value Date Recorded Sex Assigned at Not on file Legal Sex Female 3:33 AM GASTROENTEROLOGY TECHNICIAN Gender Identity Not on file Sexual Orientation Not on file documented as of this encounter Plan of Treatment Upcoming Encounters Date Type Department Care Team (Late st Contact Info) Description 04/04/2025 11:00 AM GASTROENTEROLOGY TECHNICIAN Office Visit [facility] Oncology and Hematology - [place] [address] [facility] [address] [place] [address] [place] [address] [place] [address] [address] [place] [address] documented as of this encounter Visit Diagnoses Diagnosis Hypopotassemia- Primary documented in this encounter Care Teams Secretary Relationship Specialty Start Date End Date Abrahan Mcgee MD [address] [place] [address] PCP - General Family Practice 04/03/24 documented as of this encounter
--- OUTSIDE RECORDS SUMMARY | 2025-01-21 22:49 | XMS_ITS | Encounter Summary ---
Author Organization [facility] Address [address] [place] [address] Care Team Providers Care Fish Farm Laborer Name Role Phone Abrahan Mcgee MD Primary Care Provider [phone] Encounter Details Date Type Department Care Team (Late st Contact Info) Description 02/24/2005 Outpatient Historical [facility] [address] [place] [address] Carmine Morales MD NO ADDRESS ON FILE Social History Tobacco Use Types Packs/Day Years Used Date Smoking Tobacco: Never Assessed Comments Unknown Sex and Gender Information Value Date Recorded Sex Assigned at Not on file Legal Sex Female 3:33 AM MARINA PORTER Gender Identity Not on file Sexual Orientation Not on file documented as of this encounter Plan of Treatment Upcoming Encounters Date Type Department Care Team (Late st Contact Info) Description 04/04/2025 11:00 AM MARINA PORTER Office Visit [facility] Oncology and Hematology - [place] [address] [place] [address] [address] [place] [address] Prince Mir MD [address] [facility] [address] [place] [address] documented as of this encounter Visit Diagnoses Not on filedocumented in this encounter Care Teams Fish Farm Laborer Relationship Specialty Start Date End Date Abrahan Mcgee MD [address] [place] [address] PCP - General Family Practice 04/03/24 documented as of this encounter
--- OUTSIDE RECORDS SUMMARY | 2025-01-21 22:49 | XMS_ITS | Encounter Summary ---
Author Organization [facility] Address [address] [place] [address] Care Team Providers Care Care Management Coordinator Name Role Phone Abrhaan Mcgee MD Primary Care Provider [phone] Encounter Details Date Type Department Care Team (Late st Contact Info) Description 07/13/2003 Outpatient Historical [facility] Meryl [place] MD [address] [address] ABDOMINAL PAIN OTHER SPEC SITE (Primary Dx) Social History Tobacco Use Types Packs/Day Years Used Date Smoking Tobacco: Never Assessed Comments Unknown Sex and Gender Information Value Date Recorded Sex Assigned at Not on file Legal Sex Female 3:33 AM ENVIRONMENTAL AUDITOR Gender Identity Not on file Sexual Orientation Not on file documented as of this encounter Plan of Treatment Upcoming Encounters Date Type Department Care Team (Late st Contact Info) Description 04/04/2025 11:00 AM ENVIRONMENTAL AUDITOR Office Visit [facility] Oncology and Hematology - [place] [address] [place] [address] [address] [place] [address] Prince Mir MD [address] [facility] [address] [place] [address] documented as of this encounter Visit Diagnoses Diagnosis Abdominal pain, other specified site- Primary documented in this encounter Care Teams Care Management Coordinator Relationship Specialty Start Date End Date Abrahan Mcgee MD [address] [place] [address] PCP - General Family Practice 2/3/25 documented as of this encounter
--- OUTSIDE RECORDS SUMMARY | 2025-01-21 22:49 | XMS_ITS | Encounter Summary ---
Author Organization [facility] Address [address] [place] [address] Care Team Providers Care Squeegee Operator Name Role Phone Abrahan Mcgee MD Primary Care Provider Encounter Details Date Type Department Care Team (Late st Contact Info) Description 10/29/2000 Outpatient Historical [facility] Andre Ernst MD NO ADDRESS ON FILE Social History Tobacco Use Types Packs/Day Years Used Date Smoking Tobacco: Never Assessed Comments Unknown Sex and Gender Information Value Date Recorded Sex Assigned at Not on file Legal Sex Female 3:33 AM IMPLEMENTATION SERVICES ANALYST Gender Identity Not on file Sexual Orientation Not on file documented as of this encounter Plan of Treatment Upcoming Encounters Date Type Department Care Team (Late st Contact Info) Description 04/04/2025 11:00 AM IMPLEMENTATION SERVICES ANALYST Office Visit [facility] Oncology and Hematology - [place] [address] [place] [address] [address] [place] [address] Prince Mir MD [address] [facility] [address] [place] [address] documented as of this encounter Visit Diagnoses Not on filedocumented in this encounter Care Teams Squeegee Operator Relationship Specialty Start Date End Date Abrahan Mcgee MD [address] [place] [address] PCP - General Family Practice 04/03/24 documented as of this encounter
--- OUTSIDE RECORDS SUMMARY | 2025-01-21 22:49 | XMS_ITS | Encounter Summary ---
Author Organization [facility] Address [address] [place] [address] Care Team Providers Care Timber Estimator Name Role Phone Abrahan Mcgee MD Primary Care Provider [phone] Encounter Details Date Type Department Care Team (Latest Contact Info) Description 07/06/2003 Outpatient Historical HIS [facility] ЕКАТЕРИНА Ernst, Andre Guardado MD NO ADDRESS ON FILE BENIGN HYPERTENSION (Primary Dx) Social History Tobacco Use Types Packs/Day Years Used Date Smoking Tobacco: Never Assessed Comments Unknown Sex and Gender Information Value Date Recorded Sex Assigned at Not on file Legal Sex Female 3:33 AM SHIRT SEWER Gender Identity Not on file Sexual Orientation Not on file documented as of this encounter Plan of Treatment Upcoming Encounters Date Type Department Care Team (Late st Contact Info) Description 04/04/2025 11:00 AM SHIRT SEWER Office Visit [facility] Oncology and Hematology - [place] [address] [facility] [address] [place] [address] [place] [address] [place] [address] [address] [place] [address] documented as of this encounter Visit Diagnoses Diagnosis Essential hypertension, benign- Primary documented in this encounter Care Teams Timber Estimator Relationship Specialty Start Date End Date Abrahan Mcgee MD [address] [place] [address] PCP - General Family Practice 04/03/24 documented as of this encounter
--- OUTSIDE RECORDS SUMMARY | 2025-01-21 22:49 | XMS_ITS | Encounter Summary ---
Author Organization [facility] Address [address] [facility] Attn: Epic Prelude ADT [place] [address] Care Team Providers Care Prototype Machine Operator Name Role Phone Abrahan Mcgee MD Primary Care Provider [phone] Encounter Details Date Type Department Care Team (Late st Contact Info) Description 08/03/1994 Outpatient Historical Andre Ernst MD NO ADDRESS ON FILE Social History Tobacco Use Types Packs/Day Years Used Date Smoking Tobacco: Never Assessed Comments Unknown Sex and Gender Information Value Date Recorded Sex Assigned at Not on file Legal Sex Female 3:33 AM BLOCKING MACHINE OPERATOR Gender Identity Not on file Sexual Orientation Not on file documented as of this encounter Plan of Treatment Upcoming Encounters Date Type Department Care Team (Late st Contact Info) Description 04/04/2025 11:00 AM BLOCKING MACHINE OPERATOR Office Visit [facility] Oncology and Hematology - [place] [address] [place] [address] [address] [place] [address] [place] [address] [place] [address] [address] [place] [address] documented as of this encounter Visit Diagnoses Not on filedocumented in this encounter Care Teams Prototype Machine Operator Relationship Specialty Start Date End Date Abrahan Mcgee MD [address] [place] [address] PCP - General Family Practice 04/03/24 documented as of this encounter
--- OUTSIDE RECORDS SUMMARY | 2025-01-21 22:49 | XMS_ITS | Encounter Summary ---
Author Organization [facility] Address [address] [place] [address] Care Team Providers Care Automotive Professional Name Role Phone Abrahan Mcgee MD Primary Care Provider Encounter Details Date Type Department Care Team (Late st Contact Info) Description 11/27/2002 Outpatient Historical [facility] Berta Monae MD [address] [place] [address] Social History Tobacco Use Types Packs/Day Years Used Date Smoking Tobacco: Never Assessed Comments Unknown Sex and Gender Information Value Date Recorded Sex Assigned at Not on file Legal Sex Female 3:33 AM INFORMATION SYSTEMS ADMINISTRATOR Gender Identity Not on file Sexual Orientation Not on file documented as of this encounter Plan of Treatment Upcoming Encounters Date Type Department Care Team (Late st Contact Info) Description 04/04/2025 11:00 AM INFORMATION SYSTEMS ADMINISTRATOR Office Visit [facility] Oncology and Hematology - [place] [address] [place] [address] [address] [place] [address] [place] [address] [place] [address] [address] [place] [address] documented as of this encounter Visit Diagnoses Not on filedocumented in this encounter Care Teams Automotive Professional Relationship Specialty Start Date End Date Abrahan Mcgee MD [address] [place] [address] PCP - General Family Practice 04/03/24 documented as of this encounter
--- OUTSIDE RECORDS SUMMARY | 2025-01-21 22:49 | XMS_ITS | Encounter Summary ---
Author Organization [facility] Address [address] [facility] Attn: Epic Prelude ADT [place] [address] Care Team Providers Care Director Employment Name Role Phone Abrahan Mcgee MD Primary Care Provider [phone] Encounter Details Date Type Department Care Team (Late st Contact Info) Description 08/08/1993 Outpatient Historical Andre Ernst MD NO ADDRESS ON FILE Social History Tobacco Use Types Packs/Day Years Used Date Smoking Tobacco: Never Assessed Comments Unknown Sex and Gender Information Value Date Recorded Sex Assigned at Not on file Legal Sex Female 3:33 AM PITTING MACHINE OPERATOR Gender Identity Not on file Sexual Orientation Not on file documented as of this encounter Plan of Treatment Upcoming Encounters Date Type Department Care Team (Late st Contact Info) Description 04/04/2025 11:00 AM PITTING MACHINE OPERATOR Office Visit [facility] Oncology and Hematology - [place] [address] [place] [address] [address] [place] [address] [place] [address] [place] [address] [address] [place] [address] documented as of this encounter Visit Diagnoses Not on filedocumented in this encounter Care Teams Director Employment Relationship Specialty Start Date End Date Abrahan Mcgee MD [address] [place] [address] PCP - General Family Practice 04/03/24 documented as of this encounter
--- OUTSIDE RECORDS SUMMARY | 2025-01-21 22:49 | XMS_ITS | Encounter Summary ---
Author Organization [facility] Address [address] [place] [address] Care Team Providers Care Lumber Tailer Name Role Phone Abrahan Mcgee MD Primary Care Provider [phone] Encounter Details Date Type Department Care Team (Late st Contact Info) Description 12/01/2002 Outpatient Historical [facility] Berta Monae MD [address] [place] [address] NONRUPTURED CEREBRAL ANEURYSM (Primary Dx) Social History Tobacco Use Types Packs/Day Years Used Date Smoking Tobacco: Never Assessed Comments Unknown Sex and Gender Information Value Date Recorded Sex Assigned at Not on file Legal Sex Female 3:33 AM SYSTEM MANAGER Gender Identity Not on file Sexual Orientation Not on file documented as of this encounter Plan of Treatment Upcoming Encounters Date Type Department Care Team (Late st Contact Info) Description 04/04/2025 11:00 AM SYSTEM MANAGER Office Visit [facility] Oncology and Hematology - [place] [address] [place] [address] [address] [place] [address] Prince Mir MD [address] [facility] [address] [place] [address] documented as of this encounter Visit Diagnoses Diagnosis Cerebral aneurysm, nonruptured- Primary documented in this encounter Care Teams Lumber Tailer Relationship Specialty Start Date End Date Abrahan Mcgee MD [address] [place] [address] PCP - General Family Practice 04/03/24 documented as of this encounter
--- OUTSIDE RECORDS SUMMARY | 2025-01-21 22:49 | XMS_ITS | Encounter Summary ---
Author Organization [facility] Address [address] [place] [address] Care Team Providers Care Call Center Analyst Name Role Phone Abrahan Mcgee MD Primary Care Provider [phone] Encounter Details Date Type Department Care Team (Latest Contact Info) Description 10/17/2002 Outpatient Historical HIS [facility] Andre Vidal MD NO ADDRESS ON FILE PURE HYPERCHOLESTEROLEM (Primary Dx) Social History Tobacco Use Types Packs/Day Years Used Date Smoking Tobacco: Never Assessed Comments Unknown Sex and Gender Information Value Date Recorded Sex Assigned at Not on file Legal Sex Female 3:33 AM CHART READER Gender Identity Not on file Sexual Orientation Not on file documented as of this encounter Plan of Treatment Upcoming Encounters Date Type Department Care Team (Late st Contact Info) Description 04/04/2025 11:00 AM CHART READER Office Visit [facility] Oncology and Hematology - [place] [address] [facility] [address] [place] [address] Prince Mir MD [address] [facility] [address] [place] [address] documented as of this encounter Visit Diagnoses Diagnosis Pure hypercholesterolemia- Primary documented in this encounter Care Teams Call Center Analyst Relationship Specialty Start Date End Date Abrahan Mcgee MD [address] [place] [address] PCP - General Family Practice 04/03/24 documented as of this encounter
--- OUTSIDE RECORDS SUMMARY | 2025-01-21 22:49 | XMS_ITS | Encounter Summary ---
Author Organization [facility] Address [address] [place] [address] Care Team Providers Care Homoeopath Name Role Phone Abrahan Mcgee MD Primary Care Provider Encounter Details Date Type Department Care Team (Late st Contact Info) Description 11/04/2001 Outpatient Historical [facility] Andre Ernst MD NO ADDRESS ON FILE Social History Tobacco Use Types Packs/Day Years Used Date Smoking Tobacco: Never Assessed Comments Unknown Sex and Gender Information Value Date Recorded Sex Assigned at Not on file Legal Sex Female 3:33 AM HUMAN FACTORS ENGINEER Gender Identity Not on file Sexual Orientation Not on file documented as of this encounter Plan of Treatment Upcoming Encounters Date Type Department Care Team (Late st Contact Info) Description 04/04/2025 11:00 AM HUMAN FACTORS ENGINEER Office Visit [facility] Oncology and Hematology - [place] [address] [place] [address] [address] [place] [address] Prince Mir MD [address] [facility] [address] [place] [address] documented as of this encounter Visit Diagnoses Not on filedocumented in this encounter Care Teams Homoeopath Relationship Specialty Start Date End Date Abrahan Mcgee MD [address] [place] [address] PCP - General Family Practice 04/03/24 documented as of this encounter
--- OUTSIDE RECORDS SUMMARY | 2025-01-21 22:49 | XMS_ITS | Encounter Summary ---
Author Organization [facility] Address [address] [place] [address] Care Team Providers Care Change Management Manager Name Role Phone Abrahan Mcgee MD Primary Care Provider [phone] Encounter Details Date Type Department Care Team (Late st Contact Info) Description 08/03/2001 Outpatient Historical [facility] Berta Monae MD [address] [place] [address] Social History Tobacco Use Types Packs/Day Years Used Date Smoking Tobacco: Never Assessed Comments Unknown Sex and Gender Information Value Date Recorded Sex Assigned at Not on file Legal Sex Female 3:33 AM SOCIAL SECRETARY Gender Identity Not on file Sexual Orientation Not on file documented as of this encounter Plan of Treatment Upcoming Encounters Date Type Department Care Team (Late st Contact Info) Description 04/04/2025 11:00 AM SOCIAL SECRETARY Office Visit [facility] Oncology and Hematology - [place] [address] [place] [address] [address] [place] [address] Prince Mir MD [address] [facility] [address] [place] [address] documented as of this encounter Visit Diagnoses Not on filedocumented in this encounter Care Teams Change Management Manager Relationship Specialty Start Date End Date Abrahan Mcgee MD [address] [place] [address] PCP - General Family Practice 04/03/24 documented as of this encounter
--- OUTSIDE RECORDS SUMMARY | 2025-01-21 22:49 | XMS_ITS | Encounter Summary ---
Author Organization [facility] Address [address] [place] [address] Care Team Providers Care Lockstitch Waistband Setter Name Role Phone Abrahan Mcgee MD Primary Care Provider [phone] Encounter Details Date Type Department Care Team (Late st Contact Info) Description 08/15/2003 Outpatient Historical [facility] Meryl [place] MD [address] [address] ABDOMINAL PAIN RUQ (Primary Dx) Social History Tobacco Use Types Packs/Day Years Used Date Smoking Tobacco: Never Assessed Comments Unknown Sex and Gender Information Value Date Recorded Sex Assigned at Not on file Legal Sex Female 3:33 AM SUPERINTENDENT RADIO COMMUNICATIONS Gender Identity Not on file Sexual Orientation Not on file documented as of this encounter Plan of Treatment Upcoming Encounters Date Type Department Care Team (Late st Contact Info) Description 04/04/2025 11:00 AM SUPERINTENDENT RADIO COMMUNICATIONS Office Visit [facility] Oncology and Hematology - [place] [address] [place] [address] [address] [place] [address] Prince Mir MD [address] [facility] [address] [place] [address] documented as of this encounter Visit Diagnoses Diagnosis Abdominal pain, right upper quadrant- Primary documented in this encounter Care Teams Lockstitch Waistband Setter Relationship Specialty Start Date End Date Abrahan Mcgee MD [address] [place] [address] PCP - General Family Practice 2/3/25 documented as of this encounter
--- OUTSIDE RECORDS SUMMARY | 2025-01-21 22:49 | XMS_ITS | Encounter Summary ---
Author Organization [facility] Address [address] [place] [address] Care Team Providers Care Nuclear Waste Process Operator Name Role Phone Abrahan Mcgee MD Primary Care Provider [phone] Encounter Details Date Type Department Care Team (Latest Contact Info) Description 12/04/2005 Outpatient Historical HIS [facility] Andre Vidal MD NO ADDRESS ON FILE Essential Hypertension, Benign (Primary Dx) Social History Tobacco Use Types Packs/Day Years Used Date Smoking Tobacco: Never Assessed Comments Unknown Sex and Gender Information Value Date Recorded Sex Assigned at Not on file Legal Sex Female 3:33 AM ELECTRONIC REPAIR TROUBLESHOOTER Gender Identity Not on file Sexual Orientation Not on file documented as of this encounter Plan of Treatment Upcoming Encounters Date Type Department Care Team (Late st Contact Info) Description 04/04/2025 11:00 AM ELECTRONIC REPAIR TROUBLESHOOTER Office Visit [facility] Oncology and Hematology - [place] [address] [facility] [address] [place] [address] Prince Mir MD [address] [facility] [address] [place] [address] documented as of this encounter [...] ORDERABLES Final Res ult Performing Organization Address City/[facility]/ZIP Co de Phone Number INTERFACE SYSTEM Refer to clinic/hospital department documented in this encounter Visit Diagnoses Diagnosis Essential hypertension, benign- Primary documented in this encounter Care Teams Nuclear Waste Process Operator Relationship Specialty Start Date End Date Abrahan Mcgee MD [address] [place] [address] PCP - General Family Practice 04/03/24 documented as of this encounter
--- NOTE | 2025-01-21 23:23 | ED.RECABL ---
HPI - Recheck/Abnormal Lab/Rx General Chief Complaint: Recheck/Abnormal Lab/Rx Stated Complaint: high blood pressure x 3 days Time Seen by Provider: 01/21/25 22:27 Source: patient Mode of arrival: EMS Limitations: no limitations History of Present Illness HPI narrative: Patient is an 89-year-old female who presents the ED via EMS with report of hypertension. Patient reports her blood pressure has been elevated into the 200 systolic over the past 3 days. She has history of hypertension and had previously been on amlodipine 5 mg daily, but had this decreased by PCP a few months ago to 2.5 mg daily as she was having drops in her blood pressure. She had been routinely checking her blood pressure at home and noted to be elevated over the past 2 days. She states today she did feel somewhat off and lightheaded. Denied vision changes, headache, CP, SOB, LOC, syncope, focal weakness/numbness. Related Data Home Medications ?Medication ?Instructions ?Recorded ?Confirmed ?Last Taken ?Type aluminum hydrox-magnesium carb 95 15 ml PO PRN PRN Heartburn 05/06/21 01/18/25 07/27/21 History mg-358 mg/15 mL oral suspension (Gaviscon) vit C,E,copper,zinc-swsuj1v 250 1 cap PO DAILY 05/13/21 01/18/25 07/27/21 History mg-lutein 5 mg-zeaxanthin 1 mg capsule (Ocuvite Adult 50 Plus) anastrozole 1 mg tablet 1 mg PO DAILY 07/07/22 01/18/25 Unknown History fluticasone propionate 50 1 spray intranasal BID PRN 02/08/23 01/18/25 Unknown History mcg/actuation nasal Congestion spray,suspension (Flonase Allergy Relief) loratadine 10 mg tablet (Claritin) 10 mg PO DAILY 02/08/23 01/18/25 Unknown History calcium 600 mg (as 1 tablet PO DAILY 08/30/23 01/18/25 Unknown History carbonate)-vitamin D3 10 mcg (400 unit) tablet (Calcium 600 + D(3)) ascorbic acid (vitamin C) 1,500 mg 1,500 mg PO Q12H 02/14/24 01/18/25 Unknown History tablet,extended release [id number] (pork) See Rx Instructions PO .COMPLEX 02/14/24 01/18/25 Unknown History 25,000-85,000-136k unit capsule,del rel Allergies Allergy/AdvReac Type Severity Reaction Status Date / Time amoxicillin Allergy Mild Nausea AND Verified 01/21/25 21:28 ITCHING esomeprazole Allergy Unknown Itching Verified 01/21/25 21:28 pantoprazole Allergy Unknown Itching Verified 01/21/25 21:28 rabeprazole Allergy Unknown Itching Verified 01/21/25 21:28 ropinirole AdvReac Intermediate tremor Verified 01/21/25 21:28 codeine AdvReac Unknown N/V Verified 01/21/25 21:28 Review of Systems Review of Systems: All systems reviewed & are unremarkable except as noted in HPI. All systems reviewed & are unremarkable except as noted in HPI and below PMFSH Past Medical History Medical History Seborrheic keratosis Parakeratosis Skin lesion of scalp Scalp lesion Change in shape of pigmented skin lesion Elevated liver enzymes Bilateral carpal tunnel syndrome Fracture of greater tuberosity of left humerus Ataxia Peripheral neuropathy Acute pain of left shoulder Restless legs syndrome Benign essential tremor Ductal carcinoma in situ of right breast Acid reflux Bruises easily Urinary incontinence Hypertension Arthritis Anemia Surgical History Surgical History Status post open reduction and internal fixation (ORIF) of fracture (~09/03/23) Left greater tuberosity fracture S/P lumpectomy, right breast H/O right breast biopsy (02/19/23) DUCTAL CARCINOMA IN SITU OF RIGHT BREAST Hx of cataract surgery History of hip replacement History of hemorrhoidectomy History of colonoscopy History of repair of hiatal hernia History of ERCP History of esophagogastroduodenoscopy (EGD) History of cholecystectomy Family History Family History Sibling Family history of diabetes mellitus in first degree relative Family history of lymphoma Family history of malignant neoplasm of kidney Mother , 1 month after childbirth in 1936 No problems noted. Father Malignant brain tumor Sibling Seizures COPD (chronic obstructive pulmonary disease) Lymphoma Sibling Diabetes mellitus Hypertension Heart disease Bone cancer Brain tumor Social History Social History Smoking packs per day: 0.5 Smoking cigarettes per day: 10.0 Years smoked: 49 Smoking pack-years: 24.50 Smoking status: Former smoker Tobacco type: cigarettes Second hand tobacco smoke exposure: No Smoking end date: 03/01/00 Alcohol intake: never Substance use: current Substance use type: does not use Other substance usage details: 15MG CBD FOR PAIN Do You Feel Safe in your Home?: Yes Lack of Transportation: No Lack of Food: Never True Current Housing: I Have Housing Concerned About Future Housing: No Difficulty Paying Gas/Electric Bills: No Difficulty Paying for Meds: No Currently Unemployed: No Education: High School Diploma/GED Difficulty w/ Childcare or Family Care: No Living arrangements: with family Additional living arrangements comments: Occupation/Education: retired Gender identity (if verbalized by the patient): Female Sexual Orientation (if Verbalized by the Patient): Straight or Heterosexual Spiritual care concerns: No Exam Narrative: GENERAL: Well appearing, well-nourished, non-toxic, in no acute distress. HEAD: Normocephalic, atraumatic. EYES: PERRL/EOMI, conjunctivae clear bilaterally. No nystagmus. NECK: Supple. No meningeal signs. RESPIRATORY: Airway patent, respirations nonlabored. Clear to auscultation bilaterally, no rales, rhonchi, wheezing. CARDIOVASCULAR: Regular rate and rhythm without murmurs, rubs, or gallops. Peripheral pulses 2+ and equal bilaterally. MUSCULOSKELETAL: Moves all extremities. No gross deformities. SKIN: Warm, dry, normal color. No rashes. NEURO: A&O X3. Speech clear. Follows commands. CN II-XII grossly intact. Sensation grossly intact. Steady gait. No ataxic movements. Strength 5/5 in upper and lower extremities bilaterally. No pronator drift. Equal hand crocheter strength bilaterally. PSYCHIATRIC: Appropriate mood and affect. Normal interaction. Course Vital Signs Vital signs: Vital Signs Temperature 97.2 F L 01/21/25 21:35 Pulse Rate 78 01/21/25 21:35 Respiratory Rate 18 01/21/25 21:35 Blood Pressure 191/68 H 01/21/25 21:35 Pulse Oximetry 98 01/21/25 21:35 Oxygen Delivery Room Air 01/21/25 21:35 Temperature 97.2 F L 01/21/25 21:35 Pulse Rate 59 L 01/22/25 01:04 Respiratory Rate 20 01/22/25 02:33 Blood Pressure 191/97 H 01/22/25 02:33 Pulse Oximetry 98 01/22/25 02:33 Oxygen Delivery Room Air 01/21/25 22:14 MDM - Recheck/Abnormal Lab/Rx MDM Narrative Medical decision making narrative: Patient presented to ED with concern for hypertension. Reports her blood pressure has been elevated up to 200s systolic over the past 3 days. Was feeling somewhat lightheaded today. Patient is hypertensive upon arrival, but otherwise in no acute distress. Neurovascularly intact. No focal deficits on exam. Denying any red flag sx's. EKG without concerning ST changes. Trop is WNL. Patient denies any CP CT brain clear Basic laboratory studies are w/o significant abnormalities. UA w/o evidence of infection Patient given additional 5mg dose of amlodipine in the ED due persistent pressures 170s-180s systolic Patient has remained neurologically intact. Denying any current dizziness or lightheadedness. Has been ambulatory to and from the bathroom unassisted without issue. Feel safe for d/c home with close OP f/u with PCP for continued blood pressure management and medication adjustment. Discussed taking additional dose of 2.5 amlodipine if blood pressure is persistently elevated. Patient is in agreement with this plan. Discussed strict BP return precautions. Patient and family voiced understanding. Advised to call PCP tomorrow to make f/u appt. Discharged in stable condition. Medical Records Attestation: I reviewed the patient's medical records. Lab Data Attestation: I reviewed the patient's lab results. 01/21/25 23:55 01/21/25 00:41 Labs: Lab Results 01/21/25 01/21/25 01/21/25 Range/Units 00:41 23:37 23:54 WBC (4.5-10.0) K/mm3 RBC (4.2-5.4) M/mm3 Hgb (12.0-15.0) g/dL Hct (37.0-47.0) % MCV (80-100) fl MCH (26-34) pg MCHC (32-36) g/dl RDW (11.5-14.5) % Plt Count (150-375) k/mm3 MPV (7.4-10.4) fl Immature Gran % (Auto) (0-0.5) % Neut % (Auto) (45.5-73.1) % Lymph % (Auto) (18.3-44.2) % [place] % (Auto) (2.6-8.5) % Eos % (Auto) (0-4.4) % Baso % (Auto) (0.2-1.2) % Lymph # (Auto) (0.9-3.2) K/mm3 [place] # (Auto) (0.1-0.6) K/mm3 Eos # (Auto) (0-0.3) K/mm3 Baso # (Auto) (0.0-0.1) K/mm3 Abs Immat Gran (auto) (0.00-0.031) K/mm3 Absolute Neuts (auto) (1.3-6.7) K/mm3 Absolute Nucleated RBC (0.0-0.012) K/mm3 Nucleated RBC % (0.0-0.2) % PT 13.3 (11.1-14.7) Seconds INR 1.0 APTT 26.7 (22.3-36.8) Seconds Sodium 140 Cancelled (137-145) mmol/L Potassium 3.7 Cancelled (3.4-5.0) mmol/L Chloride 105 Cancelled (98-107) mmol/L Carbon Dioxide 27 Cancelled (22-30) mmol/L Anion Gap 8 Cancelled (4-12) mmol/L BUN 18 H Cancelled (7-17) mg/dL Creatinine 1.05 H Cancelled (0.7-1.0) mg/dL Estim Creat Clear Calc Not Reportable Cancelled Estimated GFR 49 L Cancelled (59 - ) Glucose 101 Cancelled (65-110) mg/dL Calcium 9.7 Cancelled (8.4-10.2) mg/dL Troponin I 0.029 (0.000-0.034) ng/mL Urine Color Yellow (Yellow) Urine Appearance Clear (Clear) Urine pH 7.5 (5.0-9.0) Ur Specific [place] 1.005 (1.001-1.035) Urine Protein 1+ H (Negative) mg/dL Urine Glucose (UA) Negative (Negative) mg/dL Urine Ketones Negative (Negative) mg/dL Ur Blood (Man) Negative (Negative) Urine Nitrate Negative (Negative) Urine Bilirubin Negative (Negative) Urine Urobilinogen 0.2 (<2.0) mg/dL Leukocyte Esterase Rfl Negative (Negative) KAY/UL Urine RBC 0-2 (0-2) /hpf Urine WBC 0-5 (0-3) /hpf Ur Squamous Epith Cells None seen (Few) /hpf Urine Bacteria None seen /hpf Urine Casts 0-2 01/21/25 Range/Units 23:55 WBC 7.5 (4.5-10.0) K/mm3 RBC 3.78 L (4.2-5.4) M/mm3 Hgb 12.1 (12.0-15.0) g/dL Hct 36.6 L (37.0-47.0) % MCV 96.8 (80-100) fl MCH 32.0 (26-34) pg MCHC 33.1 (32-36) g/dl RDW 13.2 (11.5-14.5) % Plt Count 217 (150-375) k/mm3 MPV 10.0 (7.4-10.4) fl Immature Gran % (Auto) 0.4 (0-0.5) % Neut % (Auto) 62.7 (45.5-73.1) % Lymph % (Auto) 22.7 (18.3-44.2) % [place] % (Auto) 11.4 H (2.6-8.5) % Eos % (Auto) 2.0 (0-4.4) % Baso % (Auto) 0.8 (0.2-1.2) % Lymph # (Auto) 1.70 (0.9-3.2) K/mm3 [place] # (Auto) 0.9 H (0.1-0.6) K/mm3 Eos # (Auto) 0.2 (0-0.3) K/mm3 Baso # (Auto) 0.1 (0.0-0.1) K/mm3 Abs Immat Gran (auto) 0.03 (0.00-0.031) K/mm3 Absolute Neuts (auto) 4.7 (1.3-6.7) K/mm3 Absolute Nucleated RBC 0.000 (0.0-0.012) K/mm3 Nucleated RBC % 0.0 (0.0-0.2) % PT (11.1-14.7) Seconds INR APTT (22.3-36.8) Seconds Sodium (137-145) mmol/L Potassium (3.4-5.0) mmol/L Chloride (98-107) mmol/L Carbon Dioxide (22-30) mmol/L Anion Gap (4-12) mmol/L BUN (7-17) mg/dL Creatinine (0.7-1.0) mg/dL Estim Creat Clear Calc Estimated GFR (59 - ) Glucose (65-110) mg/dL Calcium (8.4-10.2) mg/dL Troponin I (0.000-0.034) ng/mL Urine Color (Yellow) Urine Appearance (Clear) Urine pH (5.0-9.0) Ur Specific [place] (1.001-1.035) Urine Protein (Negative) mg/dL Urine Glucose (UA) (Negative) mg/dL Urine Ketones (Negative) mg/dL Ur Blood (Man) (Negative) Urine Nitrate (Negative) Urine Bilirubin (Negative) Urine Urobilinogen (<2.0) mg/dL Leukocyte Esterase Rfl (Negative) KAY/UL Urine RBC (0-2) /hpf Urine WBC (0-3) /hpf Ur Squamous Epith Cells (Few) /hpf Urine Bacteria /hpf Urine Casts Imaging Data Attestation: I personally reviewed and interpreted this imaging study as follows: Radiologist's impression: STAT RAD CT brain: Impression: This study is limited secondary to motion artifact. No evidence of acute intracranial pathology. Moderate nonspecific white matter changes. Comparison made to prior head CT from September 28, 2024. No incidental findings. ECG Data EKG #1: Attestation: I personally reviewed and interpreted this ECG as follows: ECG completion date: 01/22/25 ECG completion time: 00:12 EKG Interpretation: normal rate (60), sinus rhythm and no ST changes Discharge Plan Discharge Clinical Impression: Labile blood pressure Patient Disposition: Home Condition: Stable Instructions: Antibiotic Form, Hypertension (ED), Hypertension in the Older Adult (ED) Additional Instructions: Your blood pressure has been very labile here. You will need to follow-up closely with your primary care doctor for further evaluation and management of this. Call office tomorrow to make appointment within the next 1 week. Continue amlodipine 2.5 mg daily in the mornings. Recommend checking your blood pressure in the afternoons. If blood pressure elevated greater than 170 systolic (top number), it would be OK to take an additional 2.5mg dose of Amlodipine. Return to the ED if you experience severe dizziness or lightheadedness, passing out, loss of consciousness, chest pain, shortness of breath, persistent headaches, vision changes, numbness or weakness of arm or leg, or any other symptoms of concern. Patient Language: German Prescriptions: No Action Ocuvite Adult 50 Plus 250-5-1 mg capsule 1 cap PO DAILY Gaviscon 95-358 mg/15 mL suspension 15 ml PO PRN PRN (Reason: Heartburn) Rx Instructions: OTC anastrozole 1 mg tablet 1 mg PO DAILY ascorbic acid (vitamin C) 1,500 mg tablet extended release 1,500 mg PO Q12H [id number] (pork) 25,000-85,000- 136,000 unit capsule,delayed release(DR/EC) See Rx Instructions PO .COMPLEX Rx Instructions: 2 with meal and 1 with a snack orally; famotidine 40 mg tablet 40 mg PO QHS Qty: 90 1RF amlodipine 5 mg tablet 2.5 mg PO DAILY Qty: 90 1RF loratadine [Claritin] 10 mg Tablet 10 mg PO DAILY fluticasone propionate [Flonase Allergy Relief] 50 mcg/actuation spray,suspension 1 spray intranasal BID PRN (Reason: Congestion) Rx Instructions: administer into each nostril calcium carbonate-vitamin D3 [Calcium 600 + D(3)] 600 mg-10 mcg (400 unit) Tablet 1 tablet PO DAILY alprazolam 0.25 mg tablet 0.25 mg PO TID PRN (Reason: anxiety) Qty: 30 0RF montelukast [Singulair] 10 mg tablet 10 mg PO QHS Qty: 90 1RF pregabalin 25 mg capsule 25 mg PO QHS Qty: 90 1RF Rx Instructions: take 1 capsule at 7:00 p.m. Zenpep 25,000-79,000- 105,000 unit capsule,delayed release(DR/EC) 1 cap PO TID Qty: 270 1RF Rx Instructions: administer with meals and/or snacks Follow-up/Referrals: Abrahan Mcgee MD [Primary Care Provider, Family Practice] Time of Disposition: 02:21
--- NOTE | 2025-01-21 23:32 | ECG_ITS ---
Test Date: 2025-01-22 00:12:51 Measurements Intervals [place] Rate: 60 P: -2 ME: 175 QRS: -24 QRSD: 89 T: 4 QT: 409 QTc: 411 Interpretive Statements SINUS RHYTHM BORDERLINE LEFT AXIS DEVIATION [QRS AXIS < -20] VOLTAGE CRITERIA FOR LVH [MEETS CRITERIA IN ONE OF: R(aVL), S(V1), R(V5), R(V5/V6)+S(V1)] NONSPECIFIC T-WAVE ABNORMALITY ABNORMAL ECG Compared to ECG 08/31/2023 13:27:25 T-wave abnormality now present Poor R-wave progression no longer present Electronically Signed On 01-22-2025 13:52:01 [employer] by Konstantin Rincon M.D.
[2025-01-21 23:51] LABS: Add Urine Microscopic? YES; Appearance Urine Clear (Clear); Glucose Urine UA Negative (Negative); Leukocyte Esterase Ur Negative LEU/UL (Negative); Nitrate Urine Negative (Negative); Non Pathogenic Casts 0-2; Specific Grav Ur 1.005 (1.001-1.035)
[2025-01-22 00:19] LABS: INR 1.0; Prothrombin Time 13.3 Seconds (11.1-14.7)
[2025-01-22 00:20] LABS: Partial Thromboplastin Time 26.7 Seconds (22.3-36.8)
[2025-01-22 00:45] LABS: Troponin I 0.029 ng/mL (0.000-0.034)
[2025-01-22 01:02] LABS: Anion Gap 8 mmol/L (4-12); Blood Urea Nitrogen 18 mg/dL (7-17); Calcium 9.7 mg/dL (8.4-10.2); Carbon Dioxide 27 mmol/L (22-30); Chloride 105 mmol/L (98-107); Estimated Glomerular Filt Rate 49; Glucose 101 mg/dL (65-110); Potassium 3.7 mmol/L (3.4-5.0); Sodium 140 mmol/L (137-145)
[2025-01-22 01:04] VITALS: BP 189/65; PULSE 59; RESP 15; O2SAT 98
[2025-01-22 01:22] LABS: Hematocrit 36.6 % (37.0-47.0); Hemoglobin 12.1 g/dL (12.0-15.0); Immature Granulocyte Percent A 0.4 % (0-0.5); Lymphocytes Absolute Auto 1.70 K/mm3 (0.9-3.2); Mean Corpuscular HGB Conc 33.1 g/dl (32-36); Mean Corpuscular Hemoglobin 32.0 pg (26-34); Mean Corpuscular Volume 96.8 fl (80-100); Nucleated Red Blood Cells Absolute Auto 0.000 K/mm3 (0.0-0.012); Nucleated Red Blood Cells Perc 0.0 % (0.0-0.2); Platelet Count Result 217 k/mm3 (150-375); Red Blood Count 3.78 M/mm3 (4.2-5.4); White Blood Count 7.5 K/mm3 (4.5-10.0)
[2025-01-22 01:33] VITALS: BP 163/105; RESP 17; O2SAT 99
[2025-01-22 02:33] VITALS: BP 191/97; RESP 20; O2SAT 98
== END 2025-01-22 02:44 | disposition home or self-care (01) ==
PROVIDERS: Emergency Provider Physician Assistant; PCP Family Medicine
DX: R09.89 Other specified symptoms and signs involving the circulatory and respiratory systems (principal); I10 Essential (primary) hypertension; M19.90 Unspecified osteoarthritis, unspecified site; D64.9 Anemia, unspecified; G25.81 Restless legs syndrome; G62.9 Polyneuropathy, unspecified; Z96.649 Presence of unspecified artificial hip joint; Z85.3 Personal history of malignant neoplasm of breast; Z87.891 Personal history of nicotine dependence; Z98.49 Cataract extraction status, unspecified eye; Z90.49 Acquired absence of other specified parts of digestive tract; R94.31 Abnormal electrocardiogram [ECG] [EKG]; Z79.899 Other long term (current) drug therapy
CPT/HCPCS: 36415; 70450; 80048; 81001; 84484; 85025; 85610; 85730; 93005; 99284; A9270